=== PATIENT | female | born 1960 | race Caucasian/White ===

== ENCOUNTER 2024-12-18 20:57 | Inpatient (IN) | payer MEDICARE, MEDICAID, SELFPAY ==
[2024-12-18] VITALS (8 sets, daily range): BP systolic 128–156; BP diastolic 55–88; PULSE 102–110; RESP 16–18; TEMP 36.6–37.4; O2SAT 91–99; BMI 28.7
--- NOTE | 2024-12-18 21:00 | EKG12_ITS ---
Test Reason : DYSRHYTHMIA Blood Pressure : */* mmHG Vent. Rate : 105 BPM Atrial Rate : 105 BPM P-R Int : 162 ms QRS Dur : 76 ms QT Int : 342 ms P-R-T Axes : 46 18 86 degrees QTcB Int : 452 ms Sinus tachycardia Possible Left atrial enlargement Cannot rule out Inferior infarct , age undetermined Abnormal ECG Confirmed by SAMI ARAUZ, LANDON ([id number]), online content editor AMY GARCIA ([id number]) on 12/20/2024 11:35:51 AM Referred By: Confirmed By: LANDON GALLARDO MD
--- NOTE | 2024-12-18 21:00 | CT_ITS ---
PROCEDURE: STROKE BRAIN/HEAD WITHOUT CONT 12/18/2024 REASON FOR EXAM: NEURO DEFICIT, ACUTE, STROKE SUSPECTED TECHNIQUE: STROKE BRAIN/HEAD WITHOUT CONT Coronal and Sagittal reconstruction series were provided. One or more dose reduction techniques were used (e.g., Automated exposure control, adjustment of the mA and/or kV according to patient size, use of iterative reconstruction technique. RADIATION DOSE SUMMARY: CTDlvol: 45 mGy DLP: 830 mGycm COMPARISON: None FINDINGS: Brain: No acute intracranial hemorrhage, mass effect, or midline shift. Extensive low density in the deep cerebral white matter most likely represents advanced chronic small vessel ischemic disease. CSF Spaces: Generalized cerebral atrophy. Sinuses/Mastoids: Predominantly clear. Bones: Unremarkable Scalp: Slight thickening of the soft tissues in the right forehead. CT/STROKE Brain/Head without Cont IMPRESSION: 1. No definite evidence of an acute intracranial abnormality. There is hypode nsity throughout the white matter suggestive of chronic small vessel ischemic disease, and which limits evaluation for acute is chemia. Consider MRI if there is persistent concern. 2. Slight thickening in the soft tissues of the right forehead, correlate with findings on exam. The critical information above was relayed directly by me by telephone to Willy Banks on 12/18/2024 at 9:13 pm with readback verification. Reading Location: [facility]
--- NOTE | 2024-12-18 21:00 | CM.ED ---
Social Work Date of referral: 12/18/2024 Reason for referral: Stroke Alert utility worker film processing responded to stroke alert. Patient from Assisted Living; no family members or support persons with patient. Licensed Practical Nurse Instructor then left as patient was being medically assessed/treated. Pratibha Presley, FOOTWEAR SALES LEADER, DIRECTOR OF RELIGIOUS LIFE
--- NOTE | 2024-12-18 21:00 | CM.ED ---
Social Work Date of referral: 12/18/2024 Reason for referral: Stroke Alert utility worker production responded to stroke alert. Patient from Assisted Living; no family members or support persons with patient. Rail Car Painter/Sandblaster then left as patient was being medically assessed/treated. Pratibha Presley, TRANSPORTER RADIOLOGY, WOOD SETTER
--- NOTE | 2024-12-18 21:00 | EKG12_ITS ---
Test Reason : DYSRHYTHMIA Blood Pressure : */* mmHG Vent. Rate : 105 BPM Atrial Rate : 105 BPM P-R Int : 162 ms QRS Dur : 76 ms QT Int : 342 ms P-R-T Axes : 46 18 86 degrees QTcB Int : 452 ms Sinus tachycardia Possible Left atrial enlargement Cannot rule out Inferior infarct , age undetermined Abnormal ECG Confirmed by SAMI ARAUZ, LANDON ([id number]), purchasing expeditor AMY GARCIA ([id number]) on 12/20/2024 11:35:51 AM Referred By: Confirmed By: LANDON GALLARDO MD
--- NOTE | 2024-12-18 21:01 | ED.VIS.STROK ---
HPI History of Present Illness Chief Complaint: Stroke Alert Informant: EMS Narrative Narrative: From by EMS from facility with prehospital stroke alert. Last normal 6:20 PM tonight hours ago. Unclear on her full baseline however per EMS they had multiple calls this year she is different. They reported slurred speech vision changes and patient reporting pain on her left side. No stroke history she is diabetic blood glucose 195. Reviewing her medication she is on diabetic medicines on a statin, blood pressure medicines, carbidopa and levodopa partially for Parkinson's, no blood thinners. Hypothyroidism. [facility] Medical History Parkinsons Hypertension Diabetes Schizophrenia Home Medications ?Medication ?Instructions ?Recorded ?Last Taken ?Type docusate sodium 100 mg capsule 100 mg PO BID Constipation 01/13/17 Unknown History (DOK) sennosides 8.6 mg-docusate sodium 1 tab PO DAILY 01/13/17 Unknown History 50 mg tablet (Senna Plus) Benacalorie 1 packet PO TID PRN intake less 12/18/24 Unknown History than 50% acetaminophen 500 mg tablet 1,000 mg PO TID PRN fever or pain 12/18/24 Unknown History amlodipine 2.5 mg tablet 2.5 mg PO DAILY 12/18/24 Unknown History amlodipine 2.5 mg tablet 2.5 mg PO DAILY 12/18/24 Unknown History atorvastatin 10 mg tablet 10 mg PO DAILY 12/18/24 Unknown History atorvastatin 10 mg tablet 10 mg PO DAILY 12/18/24 Unknown History benztropine 1 mg tablet 1 mg PO DAILY 12/18/24 Unknown History benztropine 1 mg tablet 1 mg PO QHS 12/18/24 Unknown History carbidopa 25 mg-levodopa 100 mg 2 tab PO TID 12/18/24 Unknown History tablet carbidopa 25 mg-levodopa 100 mg 2 tab PO TID 12/18/24 Unknown History tablet diclofenac sodium 1 % topical gel 4 g topical 4X/DAY 12/18/24 Unknown History diclofenac sodium 1 % topical gel 4 g topical 4X/DAY karishma knees and 12/18/24 Unknown History right hip empagliflozin 25 mg tablet 25 mg PO DAILY 12/18/24 Unknown History (Jardiance) estradiol 0.01% (0.1 mg/gram) 0.5 appful vaginal MOWEFR 12/18/24 Unknown History vaginal cream estradiol 0.01% (0.1 mg/gram) 0.5 appful vaginal DAILY 12/18/24 Unknown History vaginal cream (Estrace) fluoride (sodium) 1.1 % dental 1 applic dental DAILY 12/18/24 Unknown History cream (Denta 5000 Plus) glipizide 10 mg tablet 10 mg PO BID 12/18/24 Unknown History glipizide 10 mg tablet 10 mg PO BID 12/18/24 Unknown History levothyroxine 75 mcg tablet 75 mcg PO DAILY 12/18/24 Unknown History melatonin 3 mg tablet 3 mg PO QHS 12/18/24 Unknown History metformin 500 mg tablet,extended 1,000 mg PO BID 12/18/24 Unknown History release 24 hr mirtazapine 30 mg disintegrating 30 mg PO QHS 12/18/24 Unknown History tablet multivitamin with minerals-ferrous 1 tab PO DAILY 12/18/24 Unknown History fumarate 15 mg iron tablet nut.tx.glucose intolerance,soy 1 ea PO 4X/DAY 12/18/24 Unknown History (Glucerna oral bar) omeprazole 40 mg capsule,delayed 40 mg PO DAILY 12/18/24 Unknown History release pimavanserin 34 mg capsule 34 mg PO DAILY 12/18/24 Unknown History (Nuplazid) polyethylene glycol 3350 17 17 g PO DAILY 12/18/24 Unknown History gram/dose oral powder potassium chloride 10 mEq 10 meq PO DAILY 12/18/24 Unknown History tablet,extended release(part/cryst) repaglinide 0.5 mg tablet 0.5 mg PO BID 12/18/24 Unknown History Allergy/AdvReac Type Severity Reaction Status Date / Time Iodinated Contrast Media Allergy UNKNOWN Verified 12/18/24 21:04 (contrast dye - iodinated) Social History Smoking Status: Unknown if ever smoked ROS ROS ED Constitutional Constitutional ED: Denies fever(s) Cardiovascular Cardiovascular: Denies chest pain Respiratory/Chest Respiratory/Chest: Denies cough Gastrointestinal Gastrointestinal: Denies diarrhea or vomiting Musculoskeletal Musculoskeletal: Reports other Details: Left-sided arm and leg pain ; Denies none Integumentary Denies rash or wounds Neurologic Neurologic: Denies weakness EXAM Physical Exam Const Vital Signs: 12/18/24 21:00 12/18/24 21:04 12/18/24 21:29 Temperature 97.8 F Temperature Source Oral Pulse Rate 106 H Respiratory Rate 16 Blood Pressure 145/82 H Blood Pressure Mean 103 Pulse Ox 93 91 Oxygen Delivery Method Room Air Nasal Cannula Oxygen Flow Rate (L/min) 3 12/18/24 21:30 12/18/24 22:00 Temperature Temperature Source Pulse Rate 106 H 102 H Respiratory Rate 16 16 Blood Pressure 134/73 H 128/72 H Blood Pressure Mean 93 90 Pulse Ox 93 98 Oxygen Delivery Method Room Air Room Air Oxygen Flow Rate (L/min) Constitutional Narrative: On nasal cannula oxygen, answering questions and trying to follow commands. HEENT Reports moist mucous membranes normocephalic and atraumatic Eyes General Eye ED: Yes normal appearance of both eyes Neck full ROM Chest Wall Chest: Negative for tenderness Resp normal respiratory effort and normal air movement Effort and Inspection: symmetric chest movement; Negative for respiratory distress Cardio regular rate, regular rhythm and no murmurs Peripheral Pulses: pulses 2+ throughout GI normal to inspection, nondistended, normoactive bowel sounds and non-tender Palpation: Negative for guarding or rebound tenderness present Extremity normal to inspection General Extremety ED: Negative for edema or tenderness General Extremity: Negative for edema Neuro Sensorium / Orientation: awake Skin no rashes or lesions noted and no wounds MDM MDM MDM Narrative Medical decision making narrative: Interventions / MDM: Differential diagnosis: Slurred speech, facial droop, Parkinson's dementia Diagnosis considered but do not suspect: Intracranial hemorrhage however CT negative My EKG interpretation: Sinus rate of 105, no ST changes, isolated T wave version aVL. Nonspecific. Imaging independently reviewed and interpreted by myself: CT head: No intracranial hemorrhage. External documents reviewed: N/A Test considered but not ordered:N/A ED course: Evaluated the mild lip on left droop no arm drift she able to move her feet. Pulses are intact. Complaint of pain on her left side. Patient be sent as a stroke protocol over CT. Callback from nursing over CT patient reported allergies to IV dye which is not documented, therefore noncontrast CT will be obtained and evaluation per stroke neurology to help with disposition plans. 2109: Reevaluate after returning CT continue to complain of pain in her left arm and both legs. She alert to name she could not tell me the year or month. Reporting [birth year] as in her birthday. Told me the age was 47. Both legs were dropped when trying to evaluate for leg strength. She reports pain when she opens both eyes. Difficult to evaluate for full NIH at this time. 2114 discussion with radiologist no intracranial hemorrhage on dry CT. However reports more hypodensity with likely microvascular disease more than expected for her age. 2119: Patient evaluated by stroke neurologist Dr. Ayesha Mckenna, additional history patient does have Parkinson's dementia she is mostly wheelchair-bound does walk with one-person assist. New deficits for the patient would be slurred speech slight facial droop. She does would not recommend TNK however reports options need to be given with patient decision maker guardian. Discussed risk of intracranial hemorrhage. Currently under guardianship of advocacy protective services. Caregivers present also spoke with her nurse, number was given to call for discussion as she still inside the window. Await callback for discussion. However per neurology with her not ambulatory on her own would not be a thrombectomy candidate even with LVO therefore we will plan for admission for MRI and MRA. 2144: I spoke with emergency guardianship through advocacy protective service, Jerrell Thakur who called back. Discussed patient's history symptoms and neurology recommendations with no TNK. He will go with recommendations of neurology with no TNK. He has given consent to treat. Discussed we will plan to admit for MRI studies. He is in agreement of this. 2214: I spoke with hospitalist Dr. Florez for admission to PCU. Re-evaluation: stable Disposition discussed with patient/family/significant other: Caregiver, emergency guardian, Case discussed with consulting clinician: N/A This note was generated with [employer] dictation software. It may contain incorrect words, spelling, and punctuation that were not noted in checking the note before signing. Lab Data Attestation: I reviewed the patient's lab results. Labs: Laboratory Results - last 24 hr 12/18/24 20:00 WBC 13.1 H RBC 5.38 Hgb 16.0 H Hct 51.3 H MCV 95.4 MCH 29.7 MCHC 31.2 L RDW Std Deviation 44.7 H RDW Coeff of Luis Enrique 12.8 Plt Count 295 MPV 9.3 Immature Gran % (Auto) 0.300 Neut % (Auto) 95.7 H Lymph % (Auto) 1.4 L [place] % (Auto) 2.0 Eos % (Auto) 0.4 Baso % (Auto) 0.2 Absolute Neuts (auto) 12.5 H Absolute Lymphs (auto) 0.18 L Nucleated RBC % 0 PT 13.5 INR 1.0 APTT 22.4 L Sodium 143 Potassium 4.4 Chloride 102 Carbon Dioxide 19.6 L Anion Gap 21 H BUN 36 H Creatinine 0.90 Estim Creat Clear Calc 58.39 Est GFR (MDRD) Non-Af 71 BUN/Creatinine Ratio 40.2 H Glucose 192 H Hemoglobin A1c 7.4 H Calcium 9.3 Troponin T High Sens 10 TSH 1.520 Radiography Diagnostic Testing: Clinical Impression(s) from Imaging Studies Brain CT 12/18/24 21:00 IMPRESSION: 1. No definite evidence of an acute intracranial abnormality. There is hypodensity throughout the white matter suggestive of chronic small vessel ischemic disease, and which limits evaluation for acute ischemia. Consider MRI if there is persistent concern. 2. Slight thickening in the soft tissues of the right forehead, correlate with findings on exam. The critical information above was relayed directly by me by telephone to Gamaliel Banks on 12/18/2024 at 9:13 pm with readback verification. Reading Location: [id number] Discharge Plan Dx/Rx/DC Orders Clinical Impression: Facial droop, Slurred speech, Dementia due to Parkinson's disease Disposition Disposition: [facility] Discharge Date/Time: 12/18/24 23:09 NIHSS NIHSS 1a. Level of Consciousness: 1 - Not alert; Arousable by minor stimuli to obey, answer & respond 1b. LOC Questions: 2 - Answers NEITHER question correctly 1c. LOC Commands: 0 - Performs BOTH tasks correctly 2. Best Gaze: 0 - Normal 3. Visual: 0 - No visual loss 4. Facial Palsy: 1 - Minor paralysis (flattened nasolabial fold, asymmetry on smiling) 5a. Left Arm: 0 - No drift; arm holds 90 (or 45) degrees for full 10 seconds 5b. Right Arm: 0 - No drift; arm holds 90 (or 45) degrees for full 10 seconds 6a. Left Le - No effort against gravity; leg falls to bed immediately 6b. Right Le - No effort against gravity; leg falls to bed immediately 7. Limb Ataxia: 0 - Absent 8. Sensory: 0 - Normal; no sensory loss 9. Best Language: 1 - [id number] aphasia; 10. Dysarthria: 1 = [id number] dysarthria; 11. Extinction and Inattention: 0 - No abnormality Total: 12 Stroke Questions Stroke Team Activated: Yes Reviewed Inclusion/Exclusion criteria: Yes IV Thrombolytic Administered: No (Not recommended by neurology along with appointed guardianship)
[2024-12-18 21:11] LABS: Hematocrit 51.3 % (37-47); Hemoglobin 16.0 g/dL (12.0-15.0); Immature Granulocytes Count 0.040 X10^3/uL (0.0-0.0); Mean Corp Hgb Conc 31.2 g/dL (32-36); Mean Corpuscular Volume 95.4 fL (81-99); Mean Platelet Vol. 9.3 fl (6.2-12.0); NRBC Flagged by Analyzer 0 % (0-5); POSITIVE DIFFERENTIAL YES; Platelet Count 295 K/mm3 (150-450); RBC Distribution Width CV 12.8 % (11.6-14.6); RBC Distribution Width SD 44.7 fl (35.1-43.9); Red Blood Count 5.38 M/mm3 (4.2-5.4); White Blood Count 13.1 K/mm3 (4.4-11.0)
[2024-12-18 21:21] LABS: Prothrombin Time (Protime)PT. 13.5 SECONDS (11.7-14.9)
[2024-12-18 21:22] LABS: Partial Thromboplast Time 22.4 Seconds (24.1-36.2)
--- OUTSIDE RECORDS SUMMARY | 2024-12-18 21:24 | XMS RPT_ITS | CCD ---
Author Organization [facility] Care Team Providers Care Marketing Information Analyst Name Role Phone Unavailable Unavailable Unavailable Letha Alli Unavailable Unavailable Antwan Watters Unavailable Unavailable Alli Mnoae Unavailable Unavailable Antwan Watters Unavailable Unavailable Antwan Maharaj Unavailable Unavailable Antwan Maharaj Unavailable Unavailable Antwan Maharaj Unavailable Unavailable Antwan Maharaj Unavailable Unavailable Antwan Maharaj Unavailable Unavailable Antwan Maharaj Unavailable Unavailable Antwan Watters Primary Care Provider Antwan Watters Unavailable Antwan Maharaj Primary Care Provider Antwan Maharaj MD Primary Care Provider [phone] MINA ORTIZ Attending Unavailable MINA ORTIZ Referring Unavailable ANTWAN MAHARAJ Primary Care Unavailable Antwan Maharaj Unavailable France Lowe Unavailable Unavailable Antwan Maharaj MD Primary Care Provider [phone] Erickson Hernandez Unavailable Sharmaine Kelly I Unavailable Unavailable Osiel Vergara Unavailable Antwan Maharaj Unavailable Erickson Hernandez Attending Gilda Maharaj, Dr. Antwan Webster Primary Care Ira Maharaj, Dr. Antwan Webster Primary Care Unavaila shayy Lowe, Dr. France Estevez Attending Gilda Maharaj, Dr. Antwan Webster Attending Janetta shayy Maharaj, Dr. Antwan Webster Primary Care UnavailErickson Miller Attending Gilda Maharaj, Dr. Antwan Webster Primary Care Unavaila shayy Maharaj, Dr. Antwan Webster Attending Unavaila shayy Maharaj, Dr. Antwan Webster Primary Care Unavaila ble Tomchak, Dr. Antwan Webster Attending Unavaila ble Tomchak, Dr. Antwan Webster Primary Care Unavaila ble Tomchak, Dr. Antwan Webster Primary Care Unavaila ble Tomchak, Dr. Antwan Webster Attending Unavaila ble Tomchak, Dr. Antwan Webster Primary Care Unavaila ble Tomchak, Dr. Antwan Webster Attending Unavaila ble Tomchak, Dr. Antwan Webster Primary Care Unavaila ble Tomchak, Dr. Antwan Webster Attending Unavaila ble Tomchak, Dr. Antwan Webster Primary Care Unavaila ble Tomchak, Dr. Antwan Webster Attending Unavaila ble Tomchak, Dr. Antwan Webster Attending Unavaila ble Tomchak, Dr. Antwan Webster Primary Care Unavaila ble Tomchak, Dr. Antwan Webster Attending Unavaila ble Tomchak, Dr. Antwan Webster Primary Care Unavaila ble Moomaw, Tracey Sharmaine Mak Attending Unavailable Tomchak, Dr. Antwan Webster Primary Care Unavaila ble Tomdomo, Dr. Antwan Webster Primary Care Unavaila ble Jai, Dr. Osiel Dang Attending Unavail able Oberhauser DO, Rafa L Primary Care Provider [phone] HUY VASQUEZ Referring Unavailable HUY VASQUEZ Attending Unavailable ANTWAN MAHARAJ Primary Care Unavailable Jaylon ONTIVEROS, Marie Reyes Unavailable Unavailab Zara Hernández DO Primary Care Provider TRACY HILLIARD Attending Unavailable OBERHAUSER, RAFA L Primary Care Unavailable OBERHAUSER, RAFA L Attending Unavailable OBERHAUSER, RAFA L Referring Unavailable OBERHAUSER, RAFA L Primary Care Unavailable TRACY HILLIARD Attending Unavailable OBERHAUSER, RAFA L Primary Care Unavailable OBERHAUSER, RAFA L Attending Unavailable OBERHAUSER, RAFA L Primary Care Unavailable OBERHAUSER, RAFA L Attending Unavailable OBERHAUSER, RAFA L Primary Care Unavailable OBERHAUSER, RAFA L Primary Care Unavailable OBERHAUSER, RAFA L Primary Care Unavailable OBERHAUSER, RAFA L Primary Care Unavailable OBERHAUSER, RAFA L Primary Care Unavailable OSIEL VERGARA Attending Unavailable OBERHAUSER, RAFA L Primary Care Unavailable AJSMYN WADE Attending Unavailable TRACY HILLIARD Referring Unavailable OBERHAUSER, RAFA L Primary Care Unavailable Referring Unavailable OBERHAUSER, RAFA L Primary Care Unavailable Referring Unavailable OBERHAUSER, RAFA L Primary Care Unavailable Referring Unavailable OBERHAUSER, RAFA L Primary Care Unavailable Referring Unavailable OBERHAUSER, RAFA L Primary Care Unavailable Referring Unavailable OBERHAUSER, RAFA L Primary Care Unavailable Referring Unavailable OBERHAUSER, RAFA L Primary Care Unavailable Referring Unavailable OBERHAUSER, RAFA L Primary Care Unavailable Referring Unavailable OBERHAUSER, RAFA L Primary Care Unavailable Referring Unavailable OBERHAUSER, RAFA L Primary Care Unavailable OBERHAUSER, RAFA L Primary Care Unavailable DARIN TRUJILLO Attending Unavailable DARIN TRUJILLO Referring Unavailable OBERHAUSER, RAFA L Primary Care Unavailable Referring Unavailable OBERHAUSER, RAFA L Primary Care Unavailable Referring Unavailable OBERHAUSER, RAFA L Primary Care Unavailable Referring Unavailable OBERHAUSER, RAFA L Primary Care Unavailable Referring Unavailable OBERHAUSER, RAFA L Primary Care Unavailable Referring Unavailable OBERHAUSER, RAFA L Primary Care Unavailable Referring Unavailable OBERHAUSER, RAFA L Primary Care Unavailable Referring Unavailable OBERHAUSER, RAFA L Primary Care Unavailable Referring Unavailable OBERHAUSER, RAFA L Primary Care Unavailable Referring Unavailable OBERHAUSER, RAFA L Primary Care Unavailable Referring Unavailable OBERHAUSER, RAFA L Primary Care Unavailable NIMCO REYNA Attending Unavailable Referring Unavailable OBERHAUSER, RAFA L Primary Care Unavailable Referring Unavailable OBERHAUSER, RAFA L Primary Care Unavailable Referring Unavailable OBERHAUSER, RAFA L Primary Care Unavailable Referring Unavailable OBERHAUSER, RAFA L Primary Care Unavailable BABAK, TRACY B Referring Unavailable OBERHAUSER, RAFA L Primary Care Unavailable Referring Unavailable OBERHAUSER, RAFA L Primary Care Unavailable , Referring Unavailable OBERHAUSER, RAFA L Primary Care Unavailable Referring Unavailable OBERHAUSER, RAFA L Primary Care Unavailable Referring Unavailable OBERHAUSER, RAFA L Primary Care Unavailable Referring Unavailable OBERHAUSER, RAFA L Primary Care Unavailable Referring Unavailable OBERHAUSER, RAFA L Primary Care Unavailable Referring Unavailable OBERHAUSER, RAFA L Primary Care Unavailable OBERHAUSER, RAFA L Primary Care Unavailable MILES EH Attending Unavailable CRISTINA, ZARA R. Primary Care Unavailable NEO CASTRJEON Attending Unavailable ANTWAN MAHARAJ Primary Care Unavailable VEL BENAVIDEZ Unavailable JASMYN WADE Referring Unavailable JOSÉ MANUEL ESTEVEZ Attending Unavai lable ESTEVEZJOSÉ MANUEL Admitting Unavai lable MOVENS, SHELLEY ANURADHA Referring Unavailable STURTSMONIQUE Attending Unavailable CRISTINA, ZARA R. Primary Care Unavailable MOVENS, SHELLEY ANURADHA Admitting Unavailable MOVENS, SHELLEY ANURADHA Referring Unavailable STURTSMONIQUE Attending Unavailable CRISTINA, ZARA R. Primary Care Unavailable MOVENS, SHELLEY ANURADHA Admitting Unavailable CRISTINA, ZARA R. Primary Care Unavailable MOVENS, SHELLEY ANURADHA Referring Unavailable MOVENS, SHELLEY ANURADHA Admitting Unavailable VICTOR MANUEL CRAVEN Attending Unavailable SACHIN MORALES Referring Unavailable SACHIN MORALES Attending Unavailable ANTWAN MAHARAJ Primary Care Unavailable SACHIN MORALES Referring Unavailable SACHIN MORALES Attending Unavailable ANTWAN MAHARAJ Primary Care Unavailable GRAHAMMARCOS Referring Unavail able GRAHAMMARCOS OLIVO Attending Unavail able CRISTINA, ZARA R. Primary Care Unavailable MOVENS, SHELLEY ANURADHA Referring Unavailable SOTO DALY Attending Unavailable MOVENS, SHELLEY ANURADHA Admitting Unavailable CRITSINA, ZARA R. Primary Care Unavailable JULIANNE BUCK Attending Unavailable MOVENS, SHELLEY ANURADHA Admitting Unavailable MOVENS, SHELLEY ANURADHA Referring Unavailable CRISTINA, ZARA R. Primary Care Unavailable JULIANNE BUCK Attending Unavailable CRISTINA, ZARA R. Primary Care Unavailable MOVENS, SHELLEY ANURADHA Referring Unavailable MOVENS, SHELLEY ANURADHA Admitting Unavailable CRISTINA, ZARA R. Primary Care Unavailable MOVENS, SHELLEY ANURADHA Referring Unavailable MOVENS, SHELLEY ANURADHA Admitting Unavailable POPPY, SERENITY Attending Unavailable MOVENS, SHELLEY ANURADHA Referring Unavailable CRISTINA, ZARA R. Primary Care Unavailable MOVENS, SHELLEY ANURADHA Admitting Unavailable POPPY, SERENITY Attending Unavailable MOVENS, SHELLEY ANURADHA Referring Unavailable CRISTINA, ZARA R. Primary Care Unavailable MOVENS, SHELLEY ANURADHA Admitting Unavailable POPPY, SERENITY Attending Unavailable CREKIRILL ENG Admitting Unavailab le [facility] Consulting MODESTA Rangel Attending Unavailable CRISTINA, ZARA R. Primary Care Unavailable ELIZABETH KIMBLE Attending Unavailable TOMCHAANTWAN Lay Primary Care Unavailable VIAU, SACHIN MORENO Attending Unavailable TOMCHAANTWAN Lay Primary Care Unavailable ELIZABETH KIMBLE Attending Unavailable TOMANTWAN SOMERS Primary Care Unavailable HUY VASQUEZ Attending Unavailable TOMCHAK, ANTWAN WEBSTER Primary Care Unavailable MINA ORTIZ Attending Unavailable TOMCHAKANTWAN Primary Care Unavailable CRISTINA, ZARA RTracey Attending Unavailable CRISTINA, ZARA R. Primary Care Unavailable CRISTINA, ZARA RTracey Attending Unavailable CRISTINA, ZARA R. Primary Care Unavailable CRISTINA, ZARA R. Primary Care Unavailable CRISTINA, ZARA R. Attending Unavailable CRISTINA, ZARA RTracey Attending Unavailable CRISTINA, ZARA R. Primary Care Unavailable MINA ORTIZ Attending Unavailable ANTWAN MAHARAJ Primary Care Unavailable GRAHAMMARCOS Attending Unavail able CRISTINA, ZARA R. Primary Care Unavailable ERENDIRAELIZABETH Attending Unavailable CRISTINA, ZARA R. Primary Care Unavailable CRISTINA, ZARA R. Attending Unavailable CRISTINA, ZARA R. Primary Care Unavailable CRISTINA, ZARA R. Primary Care Unavailable CRISTINA, ZARA R. Attending Unavailable CRISTINA, ZARA R. Primary Care Unavailable ERENDIRAELIZABETH Attending Unavailable CRISTINA, ZARA RTracey Attending Unavailable CRISTINA, ZARA R. Primary Care Unavailable CRISTINA, ZARA R. Attending Unavailable CRISTINA, ZARA R. Primary Care Unavailable VIAU, SACHIN MORENO Attending Unavailable TOMCHAANTWAN Lay Primary Care Unavailable PRISCILLA MACKEY Attending Unavailable TOMCHAK, ANTWAN WEBSTER Primary Care Unavailable CRISTINA, ZARA R. Admitting Unavailable ZARA EVANS Referring Unavailable MARCOS BARRERA Attending Unavail able ZARA EVANS Primary Care Unavailable Medications Current Medications Medication Drug Class(es) Dates Sig (Normalized) Sig (Original) acetaminophen 500 mg oral tablet (20 sources) Start: 09-16-2024 take 2 tablets by mouth every eight hours as needed for pain acetaminophen (TYLENOL) 500 MG tablet Take 2 (two) tablets (1,000 mg total) by mouth every 8 (eight) hours as needed for pain . 180 tablet 11 09/16/2024 Active Start: 07-09-2024 End: 07-09-2024 take 975 mg by mouth once as needed for pain 975 mg, oral, Once, On Fri07/09/24 at 1125, For 1 dose, If ordered PRN for pain, nurse is permitted to administer this medication for higher pain scores based on patient preference? Yes Start: 04-27-2024 take 2 tablets by mo ut every six hours as needed for pain acetaminophen (Tylenol) 500 mg tablet Indications: Gait abnormality TAKE 2 TABLETS (1000MG) BY MOUTH EVERY 6 HOURS NEEDED FOR PAIN OR FEVER *CALL FOR REFILLS* 99 tablet 04/29/2024 9:57 AM EST 04/27/2024 Active End: 09-16-2024 take 1 tablet by mouth every six hours as needed for pain acetaminophen (TYLENOL) 500 MG tablet Take 1 (one) tablet (500 mg total) by mouth every 6 (six) hours as needed for pain . 09/16/2024 Discontinued (Reorder (Suppress CancelRx Message to Pharmacy)) take 2 tablets by mo ut every six hours as needed acetaminophen (Tylenol) 500 mg tablet Take 2 tablets (1,000 mg) by mouth every 6 hours if needed. Active acetaminophen 325 mg / HYDROcodone bitartrate 5 mg oral tablet (2 sources) Opioid Agonist Start: 07-09-2024 End: 07-12-2024 take 1 tablet by mouth every six hours for pain HYDROcodone-acetaminophen (Onida) 5-325 mg tablet Indications: Contusion of right knee and lower leg, initial encounter Take 1 tablet by mouth every 6 hours if needed for severe pain (7 - 10) for up to 3 days. 12 tablet 07/09/2024 07/09/2024 Discontinued aluminum hydroxide 40 mg/ml / magnesium hydroxide 40 mg/ml / simethicone 4 mg/ml oral suspension (20 sources) take 10 mL by mouth four times daily before mealtime aluminum-magnesium hydroxide-simethicone (MAALOX PLUS) 200-200-20 mg/5 mL Susp Take 10 mL by mouth 4 (four) times a day before meals and nightly GIVE 10 ML BY MOUTH BETWEEN MEALS AND AT BEDTIME NEEDED FOR ACID REFLUX . Active take 10 mL by mouth at bedtime as needed for gastroesophageal reflux disease alum-mag hydroxide-simeth (Mylanta) 200-200-20 mg/5 mL oral suspension Take 10 mL by mouth if needed for indigestion or heartburn. Give 10 mL in between meals and at bedtime as needed Active amLODIPine 2.5 mg oral tablet (20 sources) Dihydropyridine Calcium Channel Roxanne Start: 03-21-2022 End: 09-15-2024 take 1 tablet by mouth once daily amLODIPine (NORVASC) 2.5 MG tablet Take 1 (one) tablet (2.5 mg total) by mouth daily . 90 tablet 3 09/16/2024 Active ascorbic acid 500 mg oral tablet (9 sources) Vitamin C Start: 03-28-2022 End: 03-28-2023 take 1 tablet by mouth once daily ascorbic acid, vitamin C, (ascorbic acid with lauro hips) 500 MG tablet Take 1 (one) tablet (500 mg total) by mouth daily . 30 tablet 11 03/28/2022 Active atorvastatin 10 mg oral tablet (20 sources) HMG-CoA Reductase Inhibitor Start: 04-16-2023 take 1 tablet by mouth once daily in the evening atorvastatin (Lipitor) 10 mg tablet Indications: Mixed hyperlipidemia TAKE 1 TABLET BY MOUTH ONCE DAILY DX: HYPERLIPIDEMIA NEW PCP 30 tablet 10 06/14/2024 1:48 PM EST 08/25/2023 Active atorvastatin Kartik ntity: 0 Refills: 0 Ordered: 25-Mar-2019 Alee Li Generic Substitution Allowed benacalorie (3 sources) benacalorie ; Gi ve 1 packet mixed in food or liquid 3 times daily as needed for meal intake less then 50% Quantity: 0 Refills: 0 Ordered: 09-Aug-2022 Chan Stephens Generic Substitution Allowed benztropine mesylate 1 mg oral tablet (20 sources) Anticholinergic, Antihistamine Start: 03-21-20 take 1 tablet by mouth twice daily benztropine (COGENTIN) 1 MG tablet Take 1 (one) tablet (1 mg total) by mouth 2 (two) times a day . 03/21/2022 Active carbidopa 25 mg / levodopa 100 mg oral tablet (20 sources) Aromatic Amino Acid Decarboxylation Inhibitor, Aromatic Amino Acid Start: 04-16-20 End: 05-18-20 take 2 tablets by mouth three times daily carbidopa-levodopa (SINEMET) 25-100 mg per tablet Indications: Parkinson disease (HCC) Take 2 (two) tablets by mouth 3 (three) times a day . 540 tablet 3 05/18/2024 05/18/2025 Active Start: 12-19-2022 End: 12-19-2023 take 1.5 tablets by mouth once, then take 0.5 tablet by mouth three times daily carbidopa-levodopa (Sinemet) 25-100 mg per tablet Indications: Parkinson disease Take 1.5 (one and a half) tablets by mouth 3 (three) times a day . 405 tablet 3 12/19/2022 06/23/2023 Discontinued Start: 08-01-2022 End: 12-19-2022 take 1 tablet by mouth three times daily carbidopa-levodopa (Sinemet) 25-100 mg per tablet Indications: Parkinson disease (HCC) Take 1 (one) tablet by mouth 3 (three) times a day . 90 tablet 3 08/01/2022 12/19/2022 Discontinued (Dose adjustment) diazePAM 2 mg oral tablet (1 source) Benzodiazepine diazePAM 2 mg or al tablet Quantity: 0 Refills: 0 Ordered: 25-Mar-2019 Alee Li Generic Substitution Allowed diclofenac sodium 0.01 mg/mg topical gel (20 sources) Nonsteroidal Anti-inflammatory Drug Start: 07-13-2024 diclofenac sodium 1% (VOLTAREN) 1 % Gel Indications: Recurrent falls , Primary osteoarthritis involving multiple joints Apply 4 (four) g topically 4 (four) times a day Apply to Both Knees, R hip . 450 g 11 07/13/2024 Active Start: 07-09-2024 End: 07-09-2024 diclofenac sodium (Voltaren) 1 % gel Indications: Contusion of right knee and lower leg, initial encounter Apply 4.5 inches (4 g) topically 4 times a day. 100 g 07/09/2024 07/09/2024 Discontinued docusate sodium 100 mg oral capsule (20 sources) Start: 04-16-2023 End: 08-19-2024 take 1 capsule by mouth twice daily docusate sodium (COLACE) 100 MG capsule Indications: Constipation, unspecified constipation type Take 1 (one) capsule (100 mg total) by mouth 2 (two) times a day . 180 capsule 3 08/19/2024 Active docusate sodium 50 mg / sennosides, longterm 8.6 mg oral tablet (20 sources) Start: 04-16-2023 take 1 tablet by mouth once daily sennosides-docusate sodium (Senexon-S) 8.6-50 mg tablet Indications: Parkinson's disease without dyskinesia or fluctuating manifestations GIVE 1 TABLET BY MOUTH ONCE DAILY DX: STOOL SOFTENER/BOWEL REGULATOR 30 tablet 10 05/18/2024 Active empagliflozin 25 mg oral tablet (20 sources) Sodium-Glucose Cotransporter 2 Inhibitor Start: 03-15-2024 End: 04-19-2025 take 1 tablet by mouth once daily empagliflozin 25 mg Tab Take 1 (one) tablet (25 mg total) by mouth daily . 03/15/2024 04/19/2025 Active estradiol 0.1 mg/ml vaginal cream (20 sources) Estrogen Start: 12-08-2024 End: 12-08-2025 estradioL (ESTRACE) 0.01 % (0.1 mg/gram) vaginal cream Insert 2 (two) g into the vagina Friday, Friday, Friday EVERY FRIDAY/FRIDAY/ Start: 12/08/24. 42.5 g 3 12/08/2024 12/08/2025 Active Start: 12-24-2023 End: 12-23-2024 estradioL (ESTRACE) 0.01 % ( 0.1 mg/gram) vaginal cream Insert 2 (two) g into the vagina Friday, Friday, Friday EVERY FRIDAY/FRIDAY/FRIDAY . 12/24/2023 12/06/2024 Discontinued (Reorder (Suppress CancelRx Message to Pharmacy)) Start: 12-24-2023 End: 12-23-2024 estradioL (ESTRACE) 0.01 % ( 0.1 mg/gram) vaginal cream Insert 2 (two) g into the vagina daily . 12/24/2023 12/23/2024 Active Start: 12-24-2023 End: 12-23-2024 estradiol (Estrace) 0.01 % ( 0.1 mg/gram) vaginal cream Indications: Vaginal dryness Insert 0.5 Applicatorfuls (2 g) into the vagina once daily. Apply to vagina nightly for 1 week then every Friday/Friday/Friday. 42.5 g 5 05/10/2024 2:52 PM EST 12/24/2023 12/23/2024 Active estrogens, conjugated (longterm) 0.625 mg/ml vaginal cream (20 sources) Estrogen Start: 12-04-2023 estrogens, con jugated, (Premarin) vaginal cream Indications: Vaginal dryness Insert 0.5 g into the vagina 2 times a week. 30 g 1 12/04/2023 Active Start: 01-06-2023 conjugated est rogens (Premarin) vaginal cream Insert 0.5 (one-half) g into the vagina twice weekly . 01/06/2023 Active ferrous sulfate 325 mg oral tablet (9 sources) Start: 03-28-2022 End: 03-28-2023 take 1 tablet by mouth once daily at breakfast ferrous sulfate 325 (65 FE) MG tablet Take 1 (one) tablet (325 mg total) by mouth daily with breakfast . 30 tablet 11 03/28/2022 Active finger splint Misc (12 sources) Start: 04-27-2019 finger splint Misc Use as directed . 1 each 0 04/27/2019 Active fluoride, sodium, (DENTA 5000 PLUS DENT) (20 sources) fluoride, sodium , (DENTA 5000 PLUS DENT) Use to brush teeth once a day as directed . Active glipiZIDE 10 mg oral tablet (20 sources) Sulfonylurea Start: 03-29-2024 End: 03-29-2025 take 1 tablet by mouth twice daily before mealtime glipiZIDE (GLUCOTROL) 10 MG tablet Take 1 (one) tablet (10 mg total) by mouth 2 (two) times a day before meals . 03/29/2024 03/29/2025 Active Start: 10-17-2023 End: 10-16-2024 take 1 tablet by mouth twice daily before mealtime glipiZIDE (Glucotrol) 5 mg tablet Indications: Type 2 diabetes mellitus without complication, without long-term current use of insulin (Multi) Take 1 tablet (5 mg) by mouth 2 times a day before meals. 60 tablet 11 10/17/2023 03/29/2024 Discontinued (Therapy completed) hyoscyamine sulfate 0.125 mg disintegrating oral tablet (14 sources) End: 10-14-2023 hyoscyamine sulfate 0.125 mg ODT Dissolve on top of tongue 3 (three) times a day . 0 10/14/2023 Discontinued (Patient's Request) take 1 tablet by lopez th once daily as needed hyoscyamine 0.125 mg oral tablet ; 1 tab (s) orally once a day, As Needed Quantity: 0 Refills: 0 Ordered: 09-Aug-2022 Chan Stephens Generic Substitution Allowed ibuprofen 400 mg oral tablet (4 sources) Nonsteroidal Anti-inflammatory Drug Start: 01-29-2024 End: 02-05-2024 take 1 tablet by mouth every six hours for pain ibuprofen 400 mg tablet Indications: Contusion of right forearm, initial encounter , Contusion of right knee, initial encounter Take 1 tablet (400 mg) by mouth every 6 hours if needed for moderate pain (4 - 6) for up to 7 days. 28 tablet 01/29/2024 02/05/2024 Active Start: 01-29-2024 End: 01-29-2024 take 400 mg by mouth once at mealtime as needed for pain 400 mg, oral, Once, On Antonia 01/29/24 at 0745, For 1 dose, May administer with food to reduce GI upset., If ordered PRN for pain, nurse is permitted to administer this medication for higher pain scores based on patient preference? Yes levothyroxine sodium 0.075 mg oral tablet (20 sources) l-Thyroxine Start: 11-16-2024 take 1 tablet by mouth once daily in the morning levothyroxine (SYNTHROID, LEVOTHROID) 75 MCG tablet Take 1 (one) tablet (75 mcg total) by mouth every morning At 6 AM . 90 tablet 3 11/16/2024 Active Start: 04-16-2023 take 1 tablet by lopez th once daily in the morning levothyroxine (SYNTHROID, LEVOTHROID) 75 MCG tablet Take 1 (one) tablet (75 mcg total) by mouth every morning At 6 AM . 04/16/2023 Active levothyroxine 50 mcg cap Take by mouth . 0 Active take 1 tablet by lopez th once daily levothyroxine 75 mcg (0.075 mg) oral tablet ; 1 tab(s) orally once a day Quantity: 0 Refills: 0 Ordered: 09-Aug-2022 Chan Stephens Generic Substitution Allowed levothyroxine Qu antity: 0 Refills: 0 Ordered: 25-Mar-2019 Alee Li Generic Substitution Allowed lisinopril 5 mg oral tablet (13 sources) Angiotensin Converting Enzyme Inhibitor Start: 10-03-2014 lisinopril (PRINIVIL,ZESTRIL) 5 MG tablet lisinopril Quant ity: 0 Refills: 0 Ordered: 25-Mar-2019 Alee Li Generic Substitution Allowed melatonin 3 mg oral tablet (20 sources) Start: 04-16-2023 take 1 tablet by mouth once daily at bedtime melatonin 3 mg tablet Take 1 tablet (3 mg) by mouth once daily at bedtime. 04/16/2023 Active 24 hr metFORMIN hydrochloride 500 mg extended release oral tablet (20 sources) Biguanide Start: 10-03-2014 take 2 tablets by mouth twice daily metFORMIN (GLUCOPHAGE-XR) 500 MG 24 hr tablet Take 2 (two) tablets (1,000 mg total) by mouth 2 (two) times a day . 10/03/2014 Active Start: 10-03-2014 take 1 tablet by lopez th twice daily metFORMIN (GLUCOPHAGE-XR) 500 MG 24 hr tablet Take 1 (one) tablet (500 mg total) by mouth 2 (two) times a day . 10/03/2014 Active Start: 10-03-2014 metFORMIN (GLU COPHAGE-XR) 500 MG 24 hr tablet take 1 tablet by lopez th twice daily metFORMIN 1000 mg oral tablet, extended release ; 1 tab(s) orally 2 times a day Quantity: 0 Refills: 0 Ordered: 06-Nov-2022 Jesusita Guy Generic Substitution Allowed take 1 tablet by lopez th three times daily metFORMIN 500 mg oral tablet, extended release ; 1 tab(s) orally 3 times a day Quantity: 0 Refills: 0 Ordered: 09-Aug-2022 Chan Stephens Generic Substitution Allowed metFORMIN Quanti ty: 0 Refills: 0 Ordered: 25-Mar-2019 Alee Li Generic Substitution Allowed mineral oil 0.14 mg/mg / petrolatum 0.719 mg/mg / phenylephrine hydrochloride 0.0025 mg/mg / shark liver oil 0.03 mg/mg rectal ointment (20 sources) alpha-1 Adrenergic Agonist phenylephrine-shark liver oil-mineral oil-petrolatum (PREPARATION H) Oint Insert 1 Application into the rectum 4 (four) times a day as needed APPLY TOPICALLY TO AFFECTED ARE FOUR TIMES DAILY NEEDED . Active mirtazapine 30 mg disintegrating oral tablet (20 sources) Start: 023 apply 1 tablet topically once daily mirtazapine (REMERON NIKHIL-TAB) 30 MG disintegrating tablet Dissolve 1 (one) tablet (30 mg total) on top of tongue nightly PLACE 1 TABLET IN THE MOUTH AND ALLOW TO DISSOLVE AT BEDTIME . 04/16/2023 Active take 1 tablet by lopez once daily at bedtime mirtazapine 30 mg oral tablet, disintegr ating ; 1 tab(s) orally once a day (at bedtime) Quantity: 0 Refills: 0 Ordered: 09-Aug-2022 Chan Stephens Generic Substitution Allowed mirtazapine Castro tity: 0 Refills: 0 Ordered: 25-Mar-2019 Alee Li Generic Substitution Allowed mirtazapine (REM CHANDA ORAL) Take by mouth . 0 Active Multiple Vitamins with Minerals oral tablet (4 sources) take 1 tablet by mouth once daily Multiple Vitamins with Minerals oral tablet ; 1 tab(s) orally once a day Quantity: 0 Refills: 0 Ordered: 09-Aug-2022 Chan Stephens Generic Substitution Allowed [id number]-pqn-nfzxtne fumarate 15 mg iron Tab (20 sources) Start: 08-19-2024 take 1 tablet by mouth once daily in the morning obtpimvw-nxg-lpsmest fumarate 15 mg iron Tab Indications: Frequent falls Take 1 tablet by mouth every morning . 90 tablet 3 08/19/2024 Active Start: 11-09-2023 End: 08-19-2024 take 1 tablet by mouth once daily in the morning hsgjrccq-jhk-wuvyint fumarate 15 mg iron Tab Take 1 tablet by mouth every morning . 11/09/2023 08/19/2024 Discontinued (Reorder (Suppress CancelRx Message to Pharmacy)) Start: 11-09-2023 take 1 tablet by lopez th once daily in the morning qebarknr-fpc-xncupdz fumarate 15 mg iron Tab Take 1 tablet by mouth every morning . 11/09/2023 Active ljehasoq-vtv-binrwdc fumarate 15 mg iron tablet (3 sources) Start: 03-08-2024 take 1 tablet by mouth once daily teribvhk-txy-gtpwyqc fumarate 15 mg iron tablet Take 1 tablet by mouth once daily. 03/08/2024 Active vmbzvqhk-tdo-aqpz fum-folic ac 7.5 mg iron-400 mcg tablet (9 sources) Start: 10-07-2023 wbimhhwz-hak-x adolfo fum-folic ac 7.5 mg iron-400 mcg tablet Indications: Healthcare maintenance GIVE 1 TABLET BY MOUTH ONCE DAILY FOR SUPPLEMENT *GETTING FILLED LOCALLY* 30 tablet 10/07/2023 Active MULTIVITAMIN ORAL (20 sources) MULTIVITAMIN ORA L Take 1 tablet by mouth . Active MULTIVITAMIN ORA L Take by mouth . 0 Active multivitamin with minerals (gsqymagx-tjc-uoii fum-folic ac) tablet (9 sources) Start: 10-14-2023 End: 10-13-2024 take 1 tablet by mouth once daily before mealtime multivitamin with minerals (cpweyjmh-lga-pulk fum-folic ac) tablet Indications: Stage 3a chronic kidney disease (Multi) Take 1 tablet by mouth once daily. 90 tablet 3 10/14/2023 10/13/2024 Active NONFORMULARY (20 sources) NONFORMULARY HOLLIS CK FASTING BLOOD SUGAR ONE TIME EVERY MONTH (FIRST FRIDAY OF THE MONTH) . Active NONFORMULARY EVELYN CE FOAM BLOCKS IN BOTH HANDS, WRAPPED WITH COBAND EVERY NIGHT WHILE SLEEPING . Active NONFORMULARY WEA R L BRACE/SPLINT TO LEFT HAND/ARM FOR 1 HOUR TWICE DAILY THEN REMOVE ROM . Active NONFORMULARY PATTY LY DALE'S VAPOR RUB TO ALL TOENAILS ONCE NIGHTLY . Active NONFORMULARY HOLLIS CK BLOOD PRESSURE ONCE WEEKLY ON FRIDAY. IF SBP (TOP NUMBER) ABOVE 160 OR LOWER THAN 110, DBP (BOTTOM NUMBER) ABOVE 90 OR LOWER ORTIZ 60, REPEAT IN 15 MINS. IF STILL ABNORMAL CONTACT NURSE. . Active NONFORMULARY Ind ications: THEN EASILY PROVIDE RANGE OF MOTION TO WRIST/FINGERS. COMPLETE THIS TWICE DAILY BEFORE APPLYING R HAND SPLINT ROM COMPLETE HAND EXERCISES WITH BLUE SPONGE-SPONGE SQUEEZE, FINGER LUMBRICALS, POINT PINCH WITH SPONGE, FLATTEN SPONGE TWICE A DAY. (SEE BELOW FOR REST OF MESSAGE) Reasons: THEN EASILY PROVIDE RANGE OF MOTION TO WRIST/FINGERS. COMPLETE THIS TWICE DAILY BEFORE APPLYING R HAND SPLINT ROM. Active nut.tx.gluc intol,lf,soy/fib er (GLUCERNA 1 REINALDO ORAL) (16 sources) nut.tx.gluc into l,lf,soy/fiber (GLUCERNA 1 REINALDO ORAL) Take 1 Can by mouth 4 (four) times a day . Active nut.tx.gluc into l,lf,soy/fiber (GLUCERNA 1 REINALDO ORAL) Take by mouth . 0 Active nut.tx.gluc.intol,lac-free,s oy (Glucerna Advance) Liqd (9 sources) nut.tx.gluc.into l,lac-free,soy (Glucerna Advance) Liqd Take by mouth 1 carton 4 times daily . 0 Active nut.tx.gluc.intol,lac-free,s oy (Glucerna Advance) liquid (12 sources) take 1 dose by mouth four times daily nut.tx.gluc.intol,lac-free,soy (Glucerna Advance) liquid Take 1 each by mouth 4 times a day. Active take 1 dose by mouth four times daily nut.tx.gluc.intol,lac-free,soy (Glucerna Advance) liquid Take 1 each by mouth 4 times a day. 0 Active nut.tx.glucose intolerance,s oy (GLUCERNA ORAL) (20 sources) nut.tx.glucose i ntolerance,soy (GLUCERNA ORAL) Take 1 Can by mouth 4 (four) times a day . Active End: 04-21-2023 take 1 dose by mouth four times daily nut.tx.glucose intolerance,soy (GLUCERNA ORAL) Take 1 each by mouth 4 times a day. 0 04/21/2023 Discontinued (Duplicate order) nut.tx.glucose i ntolerance,soy (GLUCERNA ORAL) Take by mouth . 0 Active omeprazole 40 mg delayed release oral capsule (20 sources) Proton Pump Inhibitor Start: 03-21-2022 End: 09-15-2024 take 1 capsule by mouth once daily omeprazole (PRILOSEC) 40 MG capsule Take 1 (one) capsule (40 mg total) by mouth daily . 90 capsule 3 09/16/2024 Active omeprazole Quant ity: 0 Refills: 0 Ordered: 25-Mar-2019 Alee Li Generic Substitution Allowed pimavanserin 10 mg oral tablet (15 sources) Atypical Antipsychotic Start: 08-24-2024 take 1 tablet by mouth once daily pimavanserin 10 mg Tab Take 1 (one) tablet (10 mg total) by mouth daily . 08/24/2024 Active Start: 08-24-2024 take 1 capsule by mo uth once daily pimavanserin (NUPLAZID) 34 mg Take 1 (one) capsule (34 mg total) by mouth daily . 08/24/2024 Active polyethylene glycol 3350 22927 mg powder for oral solution (20 sources) Osmotic Laxative Start: 10-01-2022 End: 09-15-2024 polyethylene glycol (MIRALAX) 17 gram powder Take 17 (seventeen) g by mouth daily . 1530 g 3 09/16/2024 Active Potassium Acetate (1 source) potassium acetat e Quantity: 0 Refills: 0 Ordered: 25-Mar-2019 Alee Li Generic Substitution Allowed microencapsulated potassium chloride 10 meq extended release oral tablet (20 sources) Start: 10-03-2023 take 1 tablet by mouth once daily at mealtime potassium chloride CR 10 mEq ER tablet Indications: Stage 3a chronic kidney disease (Multi) TAKE 1 TABLET BY MOUTH ONCE DAILY WITH FOOD FOR SUPPLEMENT NEW PCP 30 tablet 11 06/14/2024 1:48 PM EST 10/03/2023 Active Start: 09-05-2014 End: 09-15-2024 take 1 tablet by mouth once daily potassium chloride SA (K-DUR,KLOR-CON M10) 10 MEQ tablet Take 1 (one) tablet (10 mEq total) by mouth daily . 90 tablet 3 09/16/2024 Active take 1 tablet by lopez th once daily potassium chloride 10 mEq oral tablet, extended release ; 1 tab(s) orally once a day Quantity: 0 Refills: 0 Ordered: 18-Aug-2022 Haja Maharaj Generic Substitution Allowed take 1 tablet by lopez th twice daily potassium chloride 10 mEq oral tablet, extended release ; 1 tab(s) orally 2 times a day Quantity: 0 Refills: 0 Ordered: 09-Aug-2022 Chan Stephens Generic Substitution Allowed repaglinide 0.5 mg oral tablet (6 sources) Glinide Start: 09-30-2024 End: 03-29-2025 take 1 tablet by mouth twice daily before mealtime REPaglinide (PRANDIN) 0.5 MG tablet Indications: Type 2 diabetes mellitus without complication, without long-term current use of insulin (HCC) Take 1 (one) tablet (0.5 mg total) by mouth 2 (two) times a day before meals . 180 tablet 1 09/30/2024 03/29/2025 Active simvastatin 20 mg oral tablet (12 sources) HMG-CoA Reductase Inhibitor Start: 10-03-2014 simvastatin (ZOCOR) 20 MG tablet SITagliptin 100 mg oral tablet (20 sources) Dipeptidyl Peptidase 4 Inhibitor Start: 03-21-2022 Januvia 100 mg tablet 03/21/2022 Active sodium fluoride 0.011 mg/mg toothpaste (9 sources) fluoride, sodium , (Denta 5000 Plus) 1.1 % dental cream Apply to teeth once daily. Active triamcinolone acetonide 0.001 mg/mg oral paste (1 source) Corticosteroid triamcinolone (KENALOG) 0.1 % paste Apply to teeth 2 (two) times a day . 0 Active UNABLE TO FIND (20 sources) UNABLE TO FIND Benacalorie mixed in food or drink 3 times daily as needed for meal intake less than 50% . Active UNABLE TO FIND B enacalorie mixed in food or drink 3 times daily . 0 Active UNABLE TO FIND S N Anitacid . 0 Active Completed/Discontinued Medications Medication Drug Class(es) Dates Sig (Normalized) Sig (Original) barium sulfate (E-Z-PAQUE) 96 % (w/w) for oral suspension 1 Dose (1 source) Start: 11-03-2018 End: 11-03-2018 barium sulfate (E-Z-PAQUE) 96 % (w/w) for oral suspension 1 Dose cephalexin 250 mg oral capsule (20 sources) Cephalosporin Antibacterial Start: 07-23-2024 End: 09-21-2024 take 1 capsule by mouth every six hours cephALEXin (KEFLEX) 250 MG capsule Take 1 (one) capsule (250 mg total) by mouth every 6 (six) hours . 20 capsule 07/23/2024 09/21/2024 Discontinued Start: 11-06-2022 End: 11-12-2022 take 1 tablet by mouth twice daily cephalexin 500 mg oral tablet ; 1 tab(s) orally 2 times a day Quantity: 14 Refills: 0 Ordered: 06-Nov-2022 Erickson Hernandez Start: 06-Nov-2022 End: 12-Nov-2022 Generic Substitution Allowed Comments: Finish all this medication unless otherwise directed by prescriber. Start: 08-18-2022 End: 08-22-2022 take 1 tablet by mouth twice daily cephalexin 500 mg oral tablet ; 1 tab(s) orally 2 times a day x 5 days Quantity: 10 Refills: 0 Ordered: 18-Aug-2022 Sharmaine Dean I Start: 18-Aug-2022 End: 22-Aug-2022 Generic Substitution Allowed Comments: Finish all this medication unless otherwise directed by prescriber. Comment on above: Finish all this medi cation unless otherwise directed by prescriber. 1 ml morphine sulfate 4 mg/ml prefilled syringe (1 source) Opioid Agonist Start: End: 4 4 mg, intravenous, Once, On Antonia 12/04/23 at 1115, For 1 dose OLANZapine 5 mg oral tablet (20 sources) Atypical Antipsychotic Start: 5 take 1 tablet by mouth once daily OLANZapine (ZYPREXA) 10 MG tablet Take 1 (one) tablet (10 mg total) by mouth nightly . 10/03/2014 Active Start: 10-03-2014 OLANZapine (ZY PREXA) 15 MG tablet Start: 10-03-2014 End: 09-21-2024 take 1 tablet by mouth once daily OLANZapine (ZYPREXA) 5 MG tablet Take 1 (one) tablet (5 mg total) by mouth nightly . 10/03/2014 09/21/2024 Discontinued OLANZapine Quant ity: 0 Refills: 0 Ordered: 25-Mar-2019 Alee Li Generic Substitution Allowed 2 ml ondansetron 2 mg/ml injection (1 source) Serotonin-3 Receptor Antagonist Start: 12-04-2023 End: 12-04-2023 4 mg, intravenous, Once, On Antonia 12/04/23 at 1115, For 1 dose, When administering via IV Push, administer over 3-5 minutes. oxyCODONE hydrochloride 5 mg oral tablet (1 source) Opioid Agonist Start: 07-09-2024 End: 07-09-2024 take 5 mg by mouth once as needed for pain 5 mg, oral, Once, On Fri07/09/24 at 1125, For 1 dose, If ordered PRN for pain, nurse is permitted to administer this medication for higher pain scores based on patient preference? Yes, Indications: pain Problems Active Problems Problem Classification Problem Date Documented Da te Episodic/Chronic Acute cerebrovascular disease (20 sources) Hemorrhage into subarachnoid space of neuraxis; Translations: [Nontraumatic subarachnoid hemorrhage, unspecified] Onset: 12-04-2023 12-08-2023 Chronic Administrative/social admission (9 sources) Impaired ability to transfer location; Translations: [Other symptoms involving nervous and musculoskeletal systems] Onset: 01-29-2023 Episodic Cataract (20 sources) Nuclear senile cataract; Translations: [Age-related nuclear cataract, unspecified eye] Onset: 10-05-2014 06-24-2024 Chronic Chronic kidney disease (20 sources) Chronic kidney disease, unspecified; Translations: [Chronic kidney disease stage 3A ] Onset: 10-08-2022 04-21-2023 Chronic Chronic kidney disease (2 sources) Chronic kidney disease; Translations: [Chronic kidney disease, stage 3a (Multi)] Onset: 04-21-2023 Developmental disorders (20 sources) Moderate intellectual disabilities; Translations: [Unspecified intellectual disabilities] Onset: 01-22-2017 06-24-2024 Chronic Diabetes mellitus with complications (9 sources) Type 2 diabetes mellitus with diabetic chronic kidney disease; Translations: [Diabetic peripheral neuropathy] Onset: 10-08-2022 07-15-2023 Chronic Diabetes mellitus without complication (20 sources) Type 2 diabetes mellitus without complications; Translations: [Type 2 diabetes mellitus without complication] Onset: 01-22-2017 04-21-2023 Chronic E Codes: Fall (4 sources) Fall 08-18-2022 Comment on above: FALL Esophageal disorders (20 sources) Gastro-esophageal reflux disease without esophagitis; Translations: [Gastroesophageal reflux disease] Onset: 11-06-2022 04-21-2023 Chronic Essential hypertension (20 sources) Essential (primary) hypertension; Translations: [Hypertensive disorder] Onset: 05-26-2022 04-21-2023 Chronic Fracture of upper limb (2 sources) Closed fracture of phalanx of little finger; Translations: [Fracture of unspecified phalanx of left little finger, initial encounter for closed fracture] Episodic Hypertension with complications and secondary hypertension (1 source) Hypertensive chronic kidney disease with stage 1 through stage 4 chronic kidney disease, or unspecified chronic kidney disease; Translations: [Hypertensive chronic kidney disease w stg 1-4/unsp chr kdny] Onset: 10-08-2022 Chronic Malaise and fatigue (1 source) Weakness; Translations: [Weakness] Onset: 11-06-2022 Episodic Miscellaneous mental health disorders (1 source) Mental disorder, not otherwise specified; Translations: [Mental disorder, not otherwise specified] Onset: 05-26-2022 Chronic Nonspecific chest pain (2 sources) Chest pain, unspecified; Translations: [Chest pain, unspecified] Onset: 11-06-2022 Episodic Osteoarthritis (20 sources) Degenerative joint disease involving multiple joints; Translations: [Primary generalized (osteo)arthritis] Onset: 07-13-2024 07-13-2024 Chronic Other acquired deformities (2 sources) Contracture, left hand; Translations: [Contracture, left hand] Onset: 01-12-2024 Chronic Other acquired deformities (2 sources) Contracture, right hand; Translations: [Contracture, right hand] Onset: 01-12-2024 Chronic Other aftercare (2 sources) Other meterman (current) drug therapy; Translations: [OTHER SOLUTION DIRECTOR (CURRENT) DRUG THERAPY] Onset: 01-22-2017 Episodic Other aftercare (1 source) detention (current) use of oral hypoglycemic drugs; Translations: [meterman (current) use of oral hypoglycemic drugs] Onset: 11-06-2022 Episodic Other circulatory disease (1 source) Choking 05-26-2022 Episodic Other connective tissue disease (1 source) Neurological symptom; Translations: [Other symptoms and signs involving the nervous system] Episodic Other connective tissue disease (5 sources) Repeated falls; Translations: [Repeated falls] Onset: 01-29-2023 Episodic Other fractures (2 sources) Closed fracture of sternum; Translations: [Unspecified fracture of sternum, subsequent encounter for fracture with routine healing] 08-03-2024 Episodic Other fractures (2 sources) Unspecified fracture of sternum, subsequent encounter for fracture with routine healing; Translations: [Unspecified fracture of sternum, subsequent encounter for fracture with routine healing] Onset: 08-13-2024 Episodic Other gastrointestinal disorders (1 source) Dysphagia; Translations: [Dysphagia, unspecified type] Episodic Other gastrointestinal disorders (1 source) Constipation; Translations: [Constipation, unspecified] 08-19-2024 Episodic Other injuries and conditions due to external causes (4 sources) Closed injury of head; Translations: [Head injury, unspecified] 08-09-2022 Episodic Other nervous system disorders (1 source) Other chronic pain; Translations: [OTHER CHRONIC PAIN] Onset: 01-22-2017 Chronic Other nervous system disorders (2 sources) Normal pressure hydrocephalus; Translations: [(Idiopathic) normal pressure hydrocephalus] Chronic Other nervous system disorders (2 sources) (Idiopathic) normal pressure hydrocephalus; Translations: [(Idiopathic) normal pressure hydrocephalus] Onset: 04-17-2022 Chronic Other nervous system disorders (8 sources) Poor balance; Translations: [Other symptoms involving nervous and musculoskeletal systems] Episodic Other non-traumatic joint disorders (2 sources) Pain of right wrist; Translations: [Pain in right wrist] 12-24-2023 Episodic Other screening for suspected conditions (not mental disorders or infectious disease) (20 sources) Magnetic resonance imaging of brain abnormal; Translations: [Other abnormal findings on diagnostic imaging of central nervous system] Onset: 04-21-2023 Episodic Other skin disorders (6 sources) Dystrophia unguium; Translations: [Nail dystrophy] 07-15-2023 Episodic Other upper respiratory disease (1 source) Choking sensation; Translations: [Other symptoms involving head and neck] 05-26-2022 Episodic Parkinson`s disease (20 sources) Parkinson's disease; Translations: [Parkinson's disease] Onset: 11-06-2022 Chronic Parkinson`s disease (12 sources) Parkinson`s disease; Translations: [Parkinson's disease without dyskinesia, without mention of fluctuations (Multi)] Onset: 04-21-2023 Residual codes; unclassified (1 source) Altered mental status, unspecified; Translations: [Altered mental status, unspecified] Onset: 11-06-2022 Episodic Residual codes; unclassified (3 sources) Pain; Translations: [Pain, unspecified] 12-18-2023 Episodic Residual codes; unclassified (1 source) At risk of disease; Translations: [Other specified personal risk factors, not elsewhere classified] 09-23-2024 Episodic Schizophrenia and other psychotic disorders (20 sources) Schizophrenia, unspecified; Translations: [Schizophrenia] Onset: 01-22-2017 04-21-2023 Chronic Thyroid disorders (20 sources) Hypothyroidism, unspecified; Translations: [Nontoxic single thyroid nodule] Onset: 08-09-2022 04-21-2023 Chronic Unclassified (1 source) Pure hypercholesterolemia, unspecified; Translations: [PURE HYPERCHOLESTEROLEMIA, UNSPECIFIED] Onset: 01-22-2017 Unclassified (1 source) detention (current) use of oral hypoglycemic drugs; Translations: [SENIOR CARE (CURRENT) USE OF ORAL HYPOGLYCEMIC DRUGS] Onset: 01-22-2017 Unclassified (2 sources) CHOKED ON DINNER 05-25-2022 Comment on above: CHOKED ON DINNER Unclassified (2 sources) FALL AT HOME. LAC TO RT SIDE OF FORHEAD 08-09-2022 Comment on above: FALL AT HOME. LAC TO RT SIDE OF FORHEAD Unclassified (1 source) Scalp hematoma, initial encounter 10-07-2022 Unclassified (2 sources) LETHARGIC 11-06-2022 Comment on above: LETHARGIC Unclassified (2 sources) ER Follow-up; Translations: [ER Follow-up] Onset: 02-05-2024 Unclassified (2 sources) Consult Onset: 02-03-2024 Urinary tract infections (5 sources) Urinary tract infectious disease; Translations: [Urinary tract infection, site not specified] Onset: 11-06-2022 08-18-2022 Episodic Past or Other Problems Problem Classification Problem Date Documented Da te Episodic/Chronic Abdominal pain (1 source) Unspecified abdominal pain; Translations: [UNSPECIFIED ABDOMINAL PAIN] Onset: 01-22-2017 Episodic Blindness and vision defects (20 sources) Presbyopia; Translations: [Presbyopia] Onset: 10-05-2014 06-24-2024 Episodic Disorders of teeth and jaw (3 sources) Mobile tooth; Translations: [Other specified disorders of teeth and supporting structures] Onset: 01-29-2024 01-29-2024 Episodic E Codes: Fall (9 sources) Unspecified fall, initial encounter; Translations: [Fall from non-moving wheelchair, initial encounter] Onset: 08-18-2022 12-04-2023 Episodic Fracture of upper limb (3 sources) Closed fracture of distal end of ulna; Translations: [Other fracture of lower end of right ulna, initial encounter for closed fracture] Onset: 12-04-2023 02-05-2024 Episodic Immunizations and screening for infectious disease (3 sources) Encounter for immunization; Translations: [Encounter for screening for respiratory tuberculosis] Onset: 08-09-2022 Episodic Intracranial injury (3 sources) Cerebral hemorrhage following injury; Translations: [Traumatic hemorrhage of right cerebrum with loss of consciousness of 30 minutes or less, initial encounter] Onset: 12-04-2023 12-04-2023 Episodic Joint disorders and dislocations; trauma-related (6 sources) Unspecified dislocation of right wrist and hand, initial encounter; Translations: [Closed dislocation of wrist, unspecified part] Onset: 12-04-2023 12-04-2023 Episodic Mood disorders (7 sources) Mood disorders; Translations: [Depression, unspecified] Onset: 11-06-2022 01-12-2024 Mycoses (14 sources) Onychomycosis; Translations: [Tinea unguium] Onset: 04-27-2024 07-15-2023 Episodic Nausea and vomiting (1 source) Nausea with vomiting, unspecified; Translations: [Nausea with vomiting, unspecified] Onset: 08-18-2022 Episodic Open wounds of head; neck; and trunk (6 sources) Facial laceration ; Translations: [Open wound of face, unspecified site, without mention of complication] Onset: 08-09-2022 08-09-2022 Episodic Other circulatory disease (2 sources) Other specified symptoms and signs involving the circulatory and respiratory systems; Translations: [Oth symptoms and signs involving the circ and resp systems] Onset: 05-26-2022 Episodic Other connective tissue disease (20 sources) Recurrent falls ; Translations: [History of fall] Onset: 10-08-2022 06-24-2024 Episodic Other connective tissue disease (2 sources) Pain in left hand; Translations: [Pain in left hand] Onset: 08-18-2022 Episodic Other connective tissue disease (2 sources) Pain in right toe(s); Translations: [Pain in right toe(s)] Onset: 04-27-2024 Episodic Other gastrointestinal disorders (1 source) Dysphagia, unspecified; Translations: [DYSPHAGIA, UNSPECIFIED] Onset: 01-24-2017 Episodic Other injuries and conditions due to external causes (1 source) History of falling; Translations: [History of falling] Onset: 10-08-2022 Episodic Other injuries and conditions due to external causes (2 sources) Unspecified injury of head, initial encounter; Translations: [Unspecified injury of head, initial encounter] Onset: 08-09-2022 Episodic Other nervous system disorders (3 sources) Other abnormalities of gait and mobility; Translations: [Other abnormalities of gait and mobility] Onset: 01-29-2023 Episodic Other nervous system disorders (7 sources) Abnormal gait; Translations: [Unspecified abnormalities of gait and mobility] Onset: 12-26-2023 12-26-2023 Episodic Other nervous system disorders (8 sources) Impairment of balance; Translations: [Other abnormalities of gait and mobility] Onset: 12-26-2023 12-26-2023 Episodic Other nervous system disorders (2 sources) Unspecified abnormalities of gait and mobility; Translations: [Unspecified abnormalities of gait and mobility] Onset: 12-26-2023 Episodic Other non-traumatic joint disorders (2 sources) Pain in right wrist; Translations: [Pain in right wrist] Onset: 12-24-2023 Episodic Other nutritional; endocrine; and metabolic disorders (1 source) Anorexia; Translations: [Anorexia] Onset: 08-18-2022 Episodic Other skin disorders (1 source) Localized swelling, mass and lump, head; Translations: [Localized swelling, mass and lump, head] Onset: 10-08-2022 Episodic Other skin disorders (2 sources) Nail dystrophy; Translations: [Nail dystrophy] Onset: 04-27-2024 Episodic Residual codes; unclassified (1 source) Edema, unspecified; Translations: [Edema, unspecified] Onset: 04-22-2022 Episodic Residual codes; unclassified (2 sources) Pain, unspecified; Translations: [Pain, unspecified] Onset: 02-03-2024 Episodic Superficial injury; contusion (20 sources) Hematoma of scalp; Translations: [Contusion of face, scalp, and neck except eye(s)] Onset: 10-08-2022 10-07-2022 Episodic Thyroid disorders (15 sources) Disorder of thyroid gland; Translations: [Disorder of thyroid, unspecified] Onset: 04-21-2023 04-21-2023 Episodic Unclassified (8 sources) Onset: 01-12-2024 Resolved: 02-05-2024 02-05-2024 Results Test Name Value Interpretation Reference Range Facility MTB SCREENon 10-08-2024 MITOGEN-NIL [id number] IU/mL Normal [facility] Comment on above: Performed By: #### L [id number] #### [facility] [address] [place] [address] Kirill Noe M.D. [id number] MTB SCREEN INTERPRETATION Negative Normal Negative [facility] Ambulatory Comment on above: Result Comment: No I FN-gamma response to M tuberculosis antigens was detected. Latent infection with M tuberculosis is unlikely. A single negative result does not exclude infection with M tuberculosis. In patients at high risk for M tuberculosis infection,a second test should be considered Performed By: #### L [id number] #### [facility] [address] [place] [address] Kirill Noe M.D. [id number] NIL 0.99143 IU/mL Normal [facility] Ambulatory Comment on above: Performed By: #### L [id number] #### [facility] [address] [place] [address] Kirill Noe M.D. [id number] -0.40839 IU/mL Normal 0.00 0.34 [facility] Ambulatory Comment on above: Performed By: #### L [id number] #### [facility] [address] [place] [address] Kirill Noe M.D. [id number] TB2-[id number] 0.88868 IU/mL Normal 0.00 0.34 [facility] Ambulatory Comment on above: Result Comment: Inte rferon gamma release is measured for specimens from each of the four collection tubes. A qualitative result (Negative, Positive, or Indeterminate) is based on interpretation of the four values, NIL, MITOGEN minus NIL (MITOGEN-NIL), TB1 minus NIL (TB1-NIL), and TB2 minus NIL (TB2-NIL). The NIL value represents nonspecific reactivity produced by the patient specimen. The MITOGEN-NIL value serves as the positive control for the patient specimen, demonstrating successful lymphocyte reactivity. The TB1-NIL tube specifically detects CD4+ lymphocyte reactivity, specifically stimulated by the TB1 antigens. The TB2-NIL tube detects both CD4+ and CD8+ lymphocyte reactivity, stimulated by the TB2 antigens. An overall Negative result does not completely rule out TB Infection. Performed By: #### L [id number] #### [facility] [address] [address] Kirill Noe M.D. [id number] XR UPPER GI W/SMALL BOWEL FO LLOW THROUGHon 09-30-2024 XR UPPER GI W/SMALL BOWEL FOLLOW THROUGH EXAMINATION: XR UPPER GI W/SMALL BOWEL FOLLOW THROUGH HISTORY: ORDERING SYSTEM PROVIDED HISTORY: ABNORMAL CT, TECHNOLOGIST PROVIDED HISTORY: Illness/Other Reason for exam: ABNORMAL CT Encounter Type: Ongoing Additional signs and symptoms: inflammation on prev test per family Fluoro dose in mGy: 9.2 ORDERING SYSTEM PROVIDED DIAGNOSIS CODES: R93.[address] of the abdomen COMPARISON: CT chest abdomen and pelvis 07/19/2024 TECHNIQUE: RADIATION EXPOSURE: Fluoro dose in Ka,r mGy: 9.2 Barium was administered, with fluoroscopic images the esophagus, followed by delayed images of the abdomen and pelvis. BARIUM SULFATE 96 % (W/W) ORAL POWDER FOR SUSPENSION - 1 Dose, BARIUM SULFATE 98 % ORAL POWDER FOR SUSPENSION - 1 Dose, FINDINGS: No esophageal obstruction. There is spontaneous esophageal reflux and dysmotility. The study demonstrated no evidence of obstruction or stricture. The transit time was within normal limits as contrast was seen to reach the colon by 60 minutes. The small bowel mucosa was normal in appearance. No other abnormalities appreciated. IMPRESSION: Esophageal reflux, and esophageal dysmotility. No obstruction or stricture. No evidence of small bowel obstruction or a delayed transit time or other small bowel abnormalities. Workstation ID: [id number] Dictated by: AZAEL MARLEY on FriSep 30, 2024 11:42:03 AM EDT Transcribed by: AZAEL MARLEY on FriSep 30, 2024 11:42:03 AM EDT Finalized by: AZAEL MARLEY on FriSep 30, 2024 11:42:03 AM EDT Normal [facility] Comment on above: Order Comment: Injur y/Trauma or Illness?:Injury/Trauma How long have you had these symptoms (acute/chronic)?:Acute Reason for exam?:fall History of cancer?:u Surgeries, chemotherapy, or radiation?:u Type of Exam?:Initial Mechanism of injury?:. ALBUMIN, RANDOM URINE W/CREA TININEon 09-22-2024 ALBUMIN, URINE 0.4 mg/dL Normal See Note: [facility] Comment on above: Order Comment: FASTI NG:NO FASTING: NO Result Comment: Refe rence Range: Reference Range Not established Performed By: #### 6 517 #### [facility] [address] [place] [address] Code And Test Clerk: Russell Pagan MD ALBUMIN/CREATININE RATIO, RANDOM URINE 11 mg/g creat Normal <30 [facility] Comment on above: Order Comment: FASTI NG:NO FASTING: NO Result Comment: The ADA defines abnormalities in albumin excretion as follows: Albuminuria Category Result (mg/g creatinine) Normal to Mildly increased <30 Moderately increased 30-299 Severely increased > OR = 300 The ADA recommends that at least two of three specimens collected within a 3-6 month period be abnormal before considering a patient to be within a diagnostic category. Performed By: #### 6 517 #### [facility] [place] [address] Code And Test Clerk: Russell Pagan MD Creatinine (U) [Mass/Vol] 36 mg/dL Normal 20-275 [facility] Comment on above: Order Comment: FASTI NG:NO FASTING: NO Performed By: #### 6 517 #### [facility] [place] [address] Code And Test Clerk: Russell Pagan MD HEMOGLOBIN A1con 09-22-2024 HbA1c (Bld) [Mass fraction] 8.7 % High <5.7 [facility] Comment on above: Order Comment: FASTI NG:NO FASTING: NO Result Comment: For someone without known diabetes, a hemoglobin A1c value of 6.5% or greater indicates that they may have diabetes and this should be confirmed with a follow-up test. For someone with known diabetes, a value <7% indicates that their diabetes is well controlled and a value greater than or equal to 7% indicates suboptimal control. A1c targets should be individualized based on duration of diabetes, age, comorbid conditions, and other considerations. Currently, no consensus exists regarding use of hemoglobin A1c for diagnosis of diabetes for children. Performed By: #### 4 96 #### [address], [address] [place] [address] Code And Test Clerk: Russell Pagan MD POC GLUCOSE - [facility] 025 Glucose [Mass/Vol] 218 mg/dL [address] Comment on above: Performed By: #### 4 6932 ####[facility] [address] [address] David Mcclain M.D. [id number] Glucose [Mass/Vol] 143 mg/dL [address] Comment on above: Performed By: #### 4 6932 #### [facility] [address] [address] David Mcclain M.D. [id number] POC GLUCOSE - [facility] 025 Glucose [Mass/Vol] 170 mg/dL [address] Comment on above: Performed By: #### 4 6932 #### LAB [address] [address] David Mcclain M.D. [id number] Glucose [Mass/Vol] 134 mg/dL [address] Comment on above: Performed By: #### 4 6932 #### [facility] [address] [address] David Mcclain M.D. [id number] Glucose [Mass/Vol] 154 mg/dL [address] Comment on above: Performed By: #### 4 6932 ####[facility] [address] [address] David Mcclain M.D. [id number] Glucose [Mass/Vol] 120 mg/dL [address] Comment on above: Performed By: #### 4 6932 #### [facility] [address] [address] David Mcclain M.D. [id number] POC GLUCOSE - [facility] 025 Glucose [Mass/Vol] 107 mg/dL [address] Comment on above: Performed By: #### 4 6932 #### LAB [address] [address] David Mcclain M.D. [id number] Glucose [Mass/Vol] 106 mg/dL [address] Comment on above: Performed By: #### 4 6932 #### [facility] [address] [address] David Mcclain M.D. [id number] LIPASEon 07-20-2024 Lipase [Catalytic activity/Vol] 36 U/L [place] [facility] Comment on above: Performed By: #### 4 6973 #### [facility] [address] [address] David Mcclain M.D. [id number] POC GLUCOSE - [facility] 025 Glucose [Mass/Vol] 131 mg/dL [address] Comment on above: Performed By: #### 4 6932 #### LAB [address] [address] David Mcclain M.D. [id number] Glucose [Mass/Vol] 147 mg/dL [address] Comment on above: Performed By: #### 4 6952 ####[facility] [address] [id number] David Mcclain M.D. [id number] Glucose [Mass/Vol] 131 mg/dL [address] Comment on above: Performed By: #### 4 4365 #### [facility] [address] [address] David Mcclain M.D. [id number] Glucose [Mass/Vol] 160 mg/dL High 65-99 [facility] Comment on above: Performed By: #### 4 6932 #### LAB [address] [place], [place] [address] David Mcclain M.D. [id number] URINE AEROBIC CULTUREon 07-10 URINE AEROBIC CULTURE URINE CULTURE ESCHERICHIA COLI >100,000 CFU/mL Escherichia coli < 10,000 CFU/mL of normal urogenital microbiota Organism: ESCHERICHIA COLI Antibiotic Interpretation MAL Status Amikacin Susc Islt S <=2 F Ampicillin+Sulbac Susc Islt S 4 F Ampicillin Susc Islt S 8 F Aztreonam Susc Islt S <=1 F Cefazolin Susc Islt S <=4 F Breakpoints for cefazolin interpretations are based on treatment of uncomplicated UTI. If cefazolin is considered for other infections please contact the Microbiology laboratory for further testing. Cefepime Susc Islt S <=1 F Ciprofloxacin Susc Islt S <=0.25 F AVOID fluoroquinolone treatment whenever possible. Risk of serious side effects may outweigh benefit. Gentamicin Susc Islt S <=1 F Nitrofurantoin Susc Islt I 64 F Pip+Tazo Susc Islt S <=4 F Tobramycin Susc Islt S <=1 F TMP SMX Susc Islt S <=20 F B-Lactamase Extended Susc Islt S Negative F Abnormal [facility] Comment on above: Performed By: #### 4 6932 #### LAB [address] [place], [place] [address] David Mcclain M.D. [id number] APTTon 07-19-2024 aPTT Coag (Bld) [Time] 23 s Normal 23-[address] [facility] Comment on above: Order Comment: Thera peutic range for APTT's is 68 - 104 seconds Performed By: #### 4 5113 #### LAB [address] [place], [place] [address] David Mcclain M.D. [id number] CBC WITH AUTO DIFFERENTIALon 07-19-2024 AUTO NRBC 0.0 % Normal [facility] Comment on above: Performed By: #### 4 6932 #### LAB [address] [address] David Mcclain M.D. [id number] AUTO NRBC ABS COUNT 0.00 K/mcL Normal 0.00-0.[address] [facility] Comment on above: Performed By: #### 4 6932 #### LAB [address] [address] David Mcclain M.D. [id number] BASOPHILS ABSOLUTE COUNT 0.01 K/mcL Normal 0.00-0.[address] [facility] Comment on above: Performed By: #### 4 6927 #### LAB [address] [address] David Mcclain M.D. [id number] Basophils/100 WBC (Bld) 0.2 % Normal [facility] Comment on above: Performed By: #### 4 6968 #### LAB [address] [address] David Mcclain M.D. [id number] Eosinophils (Bld) [#/Vol] 0.20 10*3/uL Normal 0.00-0.[address] [facility] Comment on above: Performed By: #### 4 8161 #### LAB [address] [address] David Mcclain M.D. [id number] Eosinophils/100 WBC (Bld) 3.3 % Normal [facility] Comment on above: Performed By: #### 4 6347 #### LAB [address] [address] David Mcclain M.D. [id number] Erythrocyte distribution width (RBC) [Ratio] 13.3 % Normal 11.6-14.[address] [facility] Comment on above: Performed By: #### 4 3248 #### LAB [address] [address] David Mcclain M.D. [id number] Hematocrit (Bld) [Volume fraction] 47.7 % High 36.0-46.[address] [facility] Comment on above: Performed By: #### 4 7305 #### LAB [address] [address] David Mcclain M.D. [id number] Hemoglobin (Bld) [Mass/Vol] 14.4 g/dL Normal 12.0-16.[address] [facility] Comment on above: Performed By: #### 4 6935 #### LAB [address] [address] David Mcclain M.D. [id number] IG ABSOLUTE 0.02 K/mcL Normal 0.00-0.[address] [facility] Comment on above: Performed By: #### 4 6992 #### LAB [address] [address] David Mcclain M.D. [id number] IG PERCENT 0.30 % Normal [facility] Comment on above: Result Comment: The IG parameter is the percentage of metamyelocytes, myelocytes and promyelocytes. An immature granulocyte count (IG) of 1% or more suggests the possibility of infection, an IG count of 3% is very likely related to an infection. Performed By: #### 4 3582 #### LAB [address] [address] David Mcclain M.D. [id number] Lymphocytes (Bld) [#/Vol] 0.92 10*3/uL Normal 0.90-4.[address] [facility] Comment on above: Performed By: #### 4 6923 #### LAB [address] [address] David Mcclain M.D. [id number] Lymphocytes/100 WBC (Bld) 15.4 % Normal [facility] Comment on above: Performed By: #### 4 6964 #### LAB [address] [address] David Mcclain M.D. [id number] MCH (RBC) [Entitic mass] 28.7 pg Normal 26.0-34.[address] [facility] Comment on above: Performed By: #### 4 6956 #### LAB [address] [address] David Mcclain M.D. [id number] MCV (RBC) [Entitic vol] 95.0 fL Normal 80.0-100.[address] [facility] Comment on above: Performed By: #### 4 6921 #### LAB [address] [address] David Mcclain M.D. [id number] MEAN CORPUSCULAR HEMOGLOBIN CONC 30.2 g/dL Low 31.0-37.[address] [facility] Comment on above: Performed By: #### 4 6934 #### LAB [address] [address] David Mcclain M.D. [id number] Monocytes (Bld) [#/Vol] 0.40 10*3/uL Normal 0.30-0.[address] [facility] Comment on above: Performed By: #### 4 6900 #### LAB [address] [address] David Mcclain M.D. [id number] Monocytes/100 WBC (Bld) 6.7 % Normal [facility] Comment on above: Performed By: #### 4 7881 #### LAB [address] [address] David Mcclain M.D. [id number] NEUTROPHILS ABSOLUTE COUNT 4.43 K/mcL Normal 1.70-7.[address] [facility] Comment on above: Performed By: #### 4 6976 #### LAB [address] [address] David Mcclain M.D. [id number] Neutrophils/100 WBC (Bld) 74.1 % Normal [facility] Comment on above: Performed By: #### 4 8546 #### LAB [address] [address] David Mcclain M.D. [id number] Platelet mean volume (Bld) [Entitic vol] 10.4 fL Normal 9.4-12.[address] [facility] Comment on above: Performed By: #### 4 0124 #### LAB [address] [address] David Mcclain M.D. [id number] Platelets (Bld) [#/Vol] 294 10*3/uL Normal 150-[address] [facility] Comment on above: Performed By: #### 4 6932 #### LAB [address] [address] David Mcclain M.D. [id number] RBC (Bld) [#/Vol] 5.02 10*6/uL Normal 4.00-5.[address] [facility] Comment on above: Performed By: #### 4 6932 #### LAB [address] [address] David Mcclain M.D. [id number] WBC (Bld) [#/Vol] 5.98 10*3/uL Normal 4.50-11.[address] [facility] Comment on above: Performed By: #### 4 6932 #### LAB [address] [address] David cMclain M.D. [id number] COMPREHENSIVE METABOLIC PANE Huan 07-19-2024 Albumin [Mass/Vol] 4.4 g/dL Normal 3.2-5.2 [facility] Comment on above: Order Comment: [facility] has implemented the eGFR calculation approach that does not have a coefficient for race that conforms to the NKF-ASN Task Force Recommendations. Performed By: #### 4 6932 #### LAB [address] [address] David Mcclain M.D. [id number] ALP [Catalytic activity/Vol] 68 U/L Normal 40-[address] [facility] Comment on above: Order Comment: [facility] has implemented the eGFR calculation approach that does not have a coefficient for race that conforms to the NKF-ASN Task Force Recommendations. Performed By: #### 4 6932 #### LAB [address] [address] David Mcclain M.D. [id number] ALT [Catalytic activity/Vol] 15 U/L Normal 0-35 U/L [facility] Comment on above: Order Comment: [facility] has implemented the eGFR calculation approach that does not have a coefficient for race that conforms to the NKF-ASN Task Force Recommendations. Performed By: #### 4 6932 #### LAB [address] [address] David Mcclain M.D. [id number] Anion gap [Moles/Vol] 18 mmol/L Normal 10-[address] [facility] Comment on above: Order Comment: [facility] has implemented the eGFR calculation approach that does not have a coefficient for race that conforms to the NKF-ASN Task Force Recommendations. Performed By: #### 4 6932 #### LAB [address] [address] David Mcclain M.D. [id number] AST [Catalytic activity/Vol] 17 U/L Normal 0-35 U/L [facility] Comment on above: Order Comment: [facility] has implemented the eGFR calculation approach that does not have a coefficient for race that conforms to the NKF-ASN Task Force Recommendations. Performed By: #### 4 6932 #### LAB [address] [address] David Mcclain M.D. [id number] Bilirubin [Mass/Vol] 0.2 mg/dL Normal 0.0-1.3 [facility] Comment on above: Order Comment: [facility] has implemented the eGFR calculation approach that does not have a coefficient for race that conforms to the NKF-ASN Task Force Recommendations. Performed By: #### 4 6932 #### LAB [address] [address] David Mcclain M.D. [id number] Calcium [Mass/Vol] 9.8 mg/dL Normal 8.4-10.2 [facility] Comment on above: Order Comment: [facility] has implemented the eGFR calculation approach that does not have a coefficient for race that conforms to the NKF-ASN Task Force Recommendations. Performed By: #### 4 6932 #### LAB [address] [id number] David Mcclain M.D. [id number] Chloride [Moles/Vol] 103 mmol/L Normal 98-108 [facility] Comment on above: Order Comment: [facility] has implemented the eGFR calculation approach that does not have a coefficient for race that conforms to the NKF-ASN Task Force Recommendations. Performed By: #### 4 6932 #### LAB [address] [place], [place] [address] David Mcclain M.D. [id number] Creatinine [Mass/Vol] 0.94 mg/dL Normal 0.60-1.[address] [facility] Comment on above: Order Comment: [facility] has implemented the eGFR calculation approach that does not have a coefficient for race that conforms to the NKF-ASN Task Force Recommendations. Performed By: #### 4 6932 #### LAB [address] [address] David Mcclain M.D. [id number] EGFR 68 mL/min/1.73 m2 Normal >=60 [facility] Comment on above: Order Comment: [facility] has implemented the eGFR calculation approach that does not have a coefficient for race that conforms to the NKF-ASN Task Force Recommendations. Result Comment: Velasquez mated GFR was calculated using the 2020 CKD-EPI creatinine equation. Performed By: #### 4 6932 #### LAB [address] [place], [place] [address] David Mcclain M.D. [id number] Glucose [Mass/Vol] 140 mg/dL High 65-99 [facility] Comment on above: Order Comment: [facility] has implemented the eGFR calculation approach that does not have a coefficient for race that conforms to the NKF-ASN Task Force Recommendations. Performed By: #### 4 6932 #### [facility] [address] [place], [place] [address] David Mcclain M.D. [id number] HCO3 (Bld) [Moles/Vol] 25 mmol/L Normal 21-[address] [facility] Comment on above: Order Comment: [facility] has implemented the eGFR calculation approach that does not have a coefficient for race that conforms to the NKF-ASN Task Force Recommendations. Performed By: #### 4 6932 #### LAB [address] [place], [place] [address] David Mcclain M.D. [id number] Potassium [Moles/Vol] 4.2 mmol/L Normal 3.5-5.[address] [facility] Comment on above: Order Comment: [facility] has implemented the eGFR calculation approach that does not have a coefficient for race that conforms to the NKF-ASN Task Force Recommendations. Performed By: #### 4 6932 #### LAB [address] [place], [place] [address] David Mcclain M.D. [id number] Protein [Mass/Vol] 7.5 g/dL Normal 6.0-8.0 [facility] Comment on above: Order Comment: [facility] has implemented the eGFR calculation approach that does not have a coefficient for race that conforms to the NKF-ASN Task Force Recommendations. Performed By: #### 4 6932 #### LAB [address] [address] David Mcclain M.D. [id number] Sodium [Moles/Vol] 142 mmol/L Normal 135-145 [facility] Comment on above: Order Comment: [facility] has implemented the eGFR calculation approach that does not have a coefficient for race that conforms to the NKF-ASN Task Force Recommendations. Performed By: #### 4 6932 #### LAB [address] [id number] David Mcclain M.D. [id number] Urea nitrogen [Mass/Vol] 30 mg/dL High 8-[address] [facility] Comment on above: Order Comment: [facility] has implemented the eGFR calculation approach that does not have a coefficient for race that conforms to the NKF-ASN Task Force Recommendations. Performed By: #### 4 6932 #### LAB [address] [place], [place] [address] David Mcclain M.D. [id number] Urea nitrogen/Creatinine [Mass ratio] 31.9 mg/mg High 10.0-20.[address] [facility] Comment on above: Order Comment: [facility] has implemented the eGFR calculation approach that does not have a coefficient for race that conforms to the NKF-ASN Task Force Recommendations. Performed By: #### 4 6932 #### LAB [address] [place], [place] [address] David Mcclain M.D. [id number] COVID-19/INFLUENZA A,B MOLEC ULARon 07-19-2024 SARS-CoV-2 (COVID-19) Ab IA Ql SARS-COV-2 (LEE ANN) Not Detected INFLUENZA A (LEE ANN) Not Detected INFLUENZA B (LEE ANN) Not Detected Normal Not Detected [facility] Comment on above: Performed By: #### L [id number] #### LAB [address] [place], [place] [address] David Mcclain M.D. [id number] CT CERVICAL SPINE WITHOUT CO NTRASTon 07-19-2024 CT CERVICAL SPINE WITHOUT CONTRAST EXAMINATION: CT HEAD OR BRAIN WITHOUT CONTRAST; CT CERVICAL SPINE WITHOUT CONTRAST; CT CHEST ABDOMEN PELVIS WITHOUT CONTRAST WITH T/L RECONS HISTORY: ORDERING SYSTEM PROVIDED HISTORY: trauma, TECHNOLOGIST PROVIDED HISTORY: Illness/Other Reason for exam: frequent falls, head pain and back pain Encounter Type: Initial Additional signs and symptoms: fall ORDERING SYSTEM PROVIDED DIAGNOSIS CODES: COMPARISON: 07/14/2024, 12/04/2023 TECHNIQUE: CT examination of the head and cervical spine was performed without IV contrast. Sagittal and coronal reformatted images were submitted for review. CT imaging of the chest, abdomen, and pelvis was performed without IV contrast. Additional sagittal and coronal reformatted images were submitted for review. During the course of this examination, CT imaging of the thoracic and lumbar spine was also performed with reformatted images submitted for review. Dose reduction techniques were achieved by using automated exposure control and/or adjustment of mA and/or kV according to patient size and/or use of iterative reconstruction technique. FINDINGS: CT HEAD: CALVARIUM/SKULL BASE: No evidence of fracture or destructive lesion. Mastoids and middle ears grossly clear. PARANASAL SINUSES: Imaged portions clear. BRAIN: There is no acute intracranial hemorrhage. There is no mass effect or midline shift. There is no hydrocephalus. There is no evidence of an acute large vascular territory cortical infarct. There is senescent change and there is global cerebral volume loss with a moderate background of nonspecific white matter disease in the periventricular and subcortical distribution of the bilateral cerebral hemispheres which is most commonly associated with the sequelae of chronic microvascular ischemia. No abnormal extra-axial fluid collections are identified. There are similar regions of conspicuous appearing patchy foci of hypoattenuation in the bilateral basal ganglia and deep hemispheric white matter. No abnormal extra-axial fluid collections are identified. CT CERVICAL SPINE: ALIGNMENT: There is no evidence of spondylolysis or spondylolisthesis. CRANIOCERVICAL JUNCTION: No evidence of fracture or dislocation. VERTEBRAE: No acute fractures. Vertebral body heights maintained. SPINAL CANAL: No gross upper cervical canal hematoma. DEGENERATIVE CHANGES: There is ymbo-wh-yfobiedb multilevel discogenic disease and degenerative facet and uncinate process spurring in the cervical spine contributing to mild canal and foraminal narrowing. Discogenic changes appear most conspicuous at C5/C6. Degenerative facet arthropathy and uncinate process spurring is similar in appearance at multiple levels in the cervical spine and do not appear to contribute to significant osseous foraminal stenosis. The incidentally imaged paraspinal soft tissues and soft tissue structures in the neck demonstrate no additional clearly acute or diagnostic abnormality otherwise. CT CHEST: Evaluation of the thoracic inlet demonstrates a normal appearance of the unenhanced thyroid. The unenhanced heart and great vessels appear to be normal in caliber and configuration. There is a mild-moderate burden of atherosclerotic disease in the coronary arteries. No pericardial effusion. The central airways appear to be normal in caliber and configuration. There are no pathologically enlarged or suspicious morphologic lymph nodes identified in the mediastinum, hilum, or the axilla. There is a mild background stigmata of COPD in there is diffuse peribronchial thickening bilaterally with bilateral basilar atelectatic change suspected. The osseous elements of the thorax reveal a subacute un healed fracture deformity through the sternum involving the sternal body. No acute rib fractures are identified. CT THORACIC SPINE: For the purposes of this examination, there appear to be 12 thoracic morphology rib-bearing vertebral segments. Alignment of the thoracic spine reveals no evidence of spondylolysis or spondylolisthesis. There is a very mild dextroconvex thoracic scoliosis. There is stable mild anterior wedging at the T12 level with less than 50% loss of vertebral body height. The thoracic vertebral body heights appear to be maintained. The facets are intact and appear to be aligned. The spinous processes appear to be intact. There is no significant canal or foraminal narrowing. No canal hematoma. CT ABDOMEN: The liver appears to be within normal limits. The gallbladder is mildly hydropic in appearance but is otherwise within normal limits. The spleen is within normal limits. The adrenal glands demonstrate mildly thickened appearance without focal mass. Pancreas appears to be normal in size however, there is some slight ill definition of fat planes surrounding the pancreas, nonspecific. There is no evidence of hydronephrosis or nephrolithiasis. The large and th (more content not included)... Normal [facility] Comment on above: Order Comment: Injur y/Trauma or Illness?:Injury/TraumaHow long have you had these symptoms (acute/chronic)?:AcuteReason for exam?:frequent falls, head pain and back painType of Exam?:InitialMechanism of injury?:fall CT CHEST ABDOMEN PELVIS WITH OUT CONTRAST WITH T/L RECONSon 07-19-2024 CT CHEST ABDOMEN PELVIS WITHOUT CONTRAST WITH T/L RECONS EXAMINATION: CT HEAD OR BRAIN WITHOUT CONTRAST; CT CERVICAL SPINE WITHOUT CONTRAST; CT CHEST ABDOMEN PELVIS WITHOUT CONTRAST WITH T/L RECONS HISTORY: ORDERING SYSTEM PROVIDED HISTORY: trauma, TECHNOLOGIST PROVIDED HISTORY: Illness/Other Reason for exam: frequent falls, head pain and back pain Encounter Type: Initial Additional signs and symptoms: fall ORDERING SYSTEM PROVIDED DIAGNOSIS CODES: COMPARISON: 07/14/2024, 12/04/2023 TECHNIQUE: CT examination of the head and cervical spine was performed without IV contrast. Sagittal and coronal reformatted images were submitted for review. CT imaging of the chest, abdomen, and pelvis was performed without IV contrast. Additional sagittal and coronal reformatted images were submitted for review. During the course of this examination, CT imaging of the thoracic and lumbar spine was also performed with reformatted images submitted for review. Dose reduction techniques were achieved by using automated exposure control and/or adjustment of mA and/or kV according to patient size and/or use of iterative reconstruction technique. FINDINGS: CT HEAD: CALVARIUM/SKULL BASE: No evidence of fracture or destructive lesion. Mastoids and middle ears grossly clear. PARANASAL SINUSES: Imaged portions clear. BRAIN: There is no acute intracranial hemorrhage. There is no mass effect or midline shift. There is no hydrocephalus. There is no evidence of an acute large vascular territory cortical infarct. There is senescent change and there is global cerebral volume loss with a moderate background of nonspecific white matter disease in the periventricular and subcortical distribution of the bilateral cerebral hemispheres which is most commonly associated with the sequelae of chronic microvascular ischemia. No abnormal extra-axial fluid collections are identified. There are similar regions of conspicuous appearing patchy foci of hypoattenuation in the bilateral basal ganglia and deep hemispheric white matter. No abnormal extra-axial fluid collections are identified. CT CERVICAL SPINE: ALIGNMENT: There is no evidence of spondylolysis or spondylolisthesis. CRANIOCERVICAL JUNCTION: No evidence of fracture or dislocation. VERTEBRAE: No acute fractures. Vertebral body heights maintained. SPINAL CANAL: No gross upper cervical canal hematoma. DEGENERATIVE CHANGES: There is mutl-wd-kskdyldw multilevel discogenic disease and degenerative facet and uncinate process spurring in the cervical spine contributing to mild canal and foraminal narrowing. Discogenic changes appear most conspicuous at C5/C6. Degenerative facet arthropathy and uncinate process spurring is similar in appearance at multiple levels in the cervical spine and do not appear to contribute to significant osseous foraminal stenosis. The incidentally imaged paraspinal soft tissues and soft tissue structures in the neck demonstrate no additional clearly acute or diagnostic abnormality otherwise. CT CHEST: Evaluation of the thoracic inlet demonstrates a normal appearance of the unenhanced thyroid. The unenhanced heart and great vessels appear to be normal in caliber and configuration. There is a mild-moderate burden of atherosclerotic disease in the coronary arteries. No pericardial effusion. The central airways appear to be normal in caliber and configuration. There are no pathologically enlarged or suspicious morphologic lymph nodes identified in the mediastinum, hilum, or the axilla. There is a mild background stigmata of COPD in there is diffuse peribronchial thickening bilaterally with bilateral basilar atelectatic change suspected. The osseous elements of the thorax reveal a subacute un healed fracture deformity through the sternum involving the sternal body. No acute rib fractures are identified. CT THORACIC SPINE: For the purposes of this examination, there appear to be 12 thoracic morphology rib-bearing vertebral segments. Alignment of the thoracic spine reveals no evidence of spondylolysis or spondylolisthesis. There is a very mild dextroconvex thoracic scoliosis. There is stable mild anterior wedging at the T12 level with less than 50% loss of vertebral body height. The thoracic vertebral body heights appear to be maintained. The facets are intact and appear to be aligned. The spinous processes appear to be intact. There is no significant canal or foraminal narrowing. No canal hematoma. CT ABDOMEN: The liver appears to be within normal limits. The gallbladder is mildly hydropic in appearance but is otherwise within normal limits. The spleen is within normal limits. The adrenal glands demonstrate mildly thickened appearance without focal mass. Pancreas appears to be normal in size however, there is some slight ill definition of fat planes surrounding the pancreas, nonspecific. There is no evidence of hydronephrosis or nephrolithiasis. The large and th (more content not included)... Normal [facility] Comment on above: Order Comment: Injur y/Trauma or Illness?:Injury/TraumaHow long have you had these symptoms (acute/chronic)?:AcuteReason for exam?:frequent falls, head pain and back painType of Exam?:InitialMechanism of injury?:fall, pt unable to raise arms above head for scan - best images possible CT HEAD OR BRAIN WITHOUT CON TRASTon 07-19-2024 CT HEAD OR BRAIN WITHOUT CONTRAST EXAMINATION: CT HEAD OR BRAIN WITHOUT CONTRAST; CT CERVICAL SPINE WITHOUT CONTRAST; CT CHEST ABDOMEN PELVIS WITHOUT CONTRAST WITH T/L RECONS HISTORY: ORDERING SYSTEM PROVIDED HISTORY: trauma, TECHNOLOGIST PROVIDED HISTORY: Illness/Other Reason for exam: frequent falls, head pain and back pain Encounter Type: Initial Additional signs and symptoms: fall ORDERING SYSTEM PROVIDED DIAGNOSIS CODES: COMPARISON: 07/14/2024, 12/04/2023 TECHNIQUE: CT examination of the head and cervical spine was performed without IV contrast. Sagittal and coronal reformatted images were submitted for review. CT imaging of the chest, abdomen, and pelvis was performed without IV contrast. Additional sagittal and coronal reformatted images were submitted for review. During the course of this examination, CT imaging of the thoracic and lumbar spine was also performed with reformatted images submitted for review. Dose reduction techniques were achieved by using automated exposure control and/or adjustment of mA and/or kV according to patient size and/or use of iterative reconstruction technique. FINDINGS: CT HEAD: CALVARIUM/SKULL BASE: No evidence of fracture or destructive lesion. Mastoids and middle ears grossly clear. PARANASAL SINUSES: Imaged portions clear. BRAIN: There is no acute intracranial hemorrhage. There is no mass effect or midline shift. There is no hydrocephalus. There is no evidence of an acute large vascular territory cortical infarct. There is senescent change and there is global cerebral volume loss with a moderate background of nonspecific white matter disease in the periventricular and subcortical distribution of the bilateral cerebral hemispheres which is most commonly associated with the sequelae of chronic microvascular ischemia. No abnormal extra-axial fluid collections are identified. There are similar regions of conspicuous appearing patchy foci of hypoattenuation in the bilateral basal ganglia and deep hemispheric white matter. No abnormal extra-axial fluid collections are identified. CT CERVICAL SPINE: ALIGNMENT: There is no evidence of spondylolysis or spondylolisthesis. CRANIOCERVICAL JUNCTION: No evidence of fracture or dislocation. VERTEBRAE: No acute fractures. Vertebral body heights maintained. SPINAL CANAL: No gross upper cervical canal hematoma. DEGENERATIVE CHANGES: There is ryiy-yr-shaclkta multilevel discogenic disease and degenerative facet and uncinate process spurring in the cervical spine contributing to mild canal and foraminal narrowing. Discogenic changes appear most conspicuous at C5/C6. Degenerative facet arthropathy and uncinate process spurring is similar in appearance at multiple levels in the cervical spine and do not appear to contribute to significant osseous foraminal stenosis. The incidentally imaged paraspinal soft tissues and soft tissue structures in the neck demonstrate no additional clearly acute or diagnostic abnormality otherwise. CT CHEST: Evaluation of the thoracic inlet demonstrates a normal appearance of the unenhanced thyroid. The unenhanced heart and great vessels appear to be normal in caliber and configuration. There is a mild-moderate burden of atherosclerotic disease in the coronary arteries. No pericardial effusion. The central airways appear to be normal in caliber and configuration. There are no pathologically enlarged or suspicious morphologic lymph nodes identified in the mediastinum, hilum, or the axilla. There is a mild background stigmata of COPD in there is diffuse peribronchial thickening bilaterally with bilateral basilar atelectatic change suspected. The osseous elements of the thorax reveal a subacute un healed fracture deformity through the sternum involving the sternal body. No acute rib fractures are identified. CT THORACIC SPINE: For the purposes of this examination, there appear to be 12 thoracic morphology rib-bearing vertebral segments. Alignment of the thoracic spine reveals no evidence of spondylolysis or spondylolisthesis. There is a very mild dextroconvex thoracic scoliosis. There is stable mild anterior wedging at the T12 level with less than 50% loss of vertebral body height. The thoracic vertebral body heights appear to be maintained. The facets are intact and appear to be aligned. The spinous processes appear to be intact. There is no significant canal or foraminal narrowing. No canal hematoma. CT ABDOMEN: The liver appears to be within normal limits. The gallbladder is mildly hydropic in appearance but is otherwise within normal limits. The spleen is within normal limits. The adrenal glands demonstrate mildly thickened appearance without focal mass. Pancreas appears to be normal in size however, there is some slight ill definition of fat planes surrounding the pancreas, nonspecific. There is no evidence of hydronephrosis or nephrolithiasis. The large and th (more content not included)... Normal [facility] Comment on above: Order Comment: Injur y/Trauma or Illness?:Illness/OtherHow long have you had these symptoms (acute/chronic)?:AcuteReason for exam?:frequent falls, head pain and back painType of Exam?:InitialAdditional signs and symptoms?:fall ED Prov Noteon 07-19-2024 ED Prov Note [facility] EMERGENCY DEPARTMENT ATTENDING NOTE: NAME: Shaji Esquivel CSN: [id number] 63 y.o. PCP: Zara Evans DO History: Chief Complaint: Fall HPI: 63-year-old female past medical history of hypertension hyperlipidemia diabetes subarachnoid hemorrhage presents to the emergency department from senior care assisted living facility for evaluation of multiple falls that been progressively worsening over the past 2 weeks. No specific alleviating or aggravating factors. Today, per client experience manager, patient fell from chair hit back of head. Patient reporting knee pain symptoms as well as back pain symptoms on the right upper side. Patient reports head pain symptoms as well. Patient denies any other symptoms at this time PMHx: Past Medical History: Diagnosis Date Diabetes (HCC) Disease of thyroid gland High cholesterol Hypertension SAH (subarachnoid hemorrhage) (HCC) 12/04/2023 PMSx: Past Surgical History: Procedure Laterality Date XR LUMBAR PUNCTURE (DIAGNOSTIC) WITH GAIT ANALYSIS 04/17/2022 XR LUMBAR PUNCTURE (DIAGNOSTIC) WITH GAIT ANALYSIS 04/17/2022 DIAGNOSTICS FAM. Hx: History reviewed. No pertinent family history. SOC. Hx: Social History Socioeconomic History Marital status: Single Tobacco Use Smoking status: Never Smokeless tobacco: Never Vaping Use Vaping status: Never Used Substance and Sexual Activity Alcohol use: Not Currently Drug use: Not Currently Social Drivers of Health Financial Resource Strain: Patient Unable To Answer (07/13/2024) Overall Financial Resource Strain (CARDIA) Difficulty of Paying Living Expenses: Patient unable to answer Transportation Needs: Patient Unable To Answer (07/13/2024) PRAPARE - Transportation Lack of Transportation (Medical): Patient unable to answer Lack of Transportation (Non-Medical): Patient unable to answer Physical Activity: Patient Unable To Answer (07/13/2024) Exercise Vital Sign Days of Exercise per Week: Patient unable to answer Minutes of Exercise per Session: Patient unable to answer Stress: Patient Unable To Answer (07/13/2024) [place] [employer] - Occupational Stress Questionnaire Feeling of Stress : Patient unable to answer Social Connections: Patient Unable To Answer (07/13/2024) Social Connection and Isolation Panel [NHANES] Frequency of Communication with Friends and Family: Patient unable to answer Frequency of Social Gatherings with Friends and Family: Patient unable to answer Attends [employer] Services: Patient unable to answer Active Member of Clubs or Organizations: Patient unable to answer Attends Club or Organization Meetings: Patient unable to answer Marital Status: Patient unable to answer Housing Stability: Patient Unable To Answer (07/13/2024) Housing Stability Vital Sign Unable to Pay for Housing in the Last Year: Patient unable to answer Homeless in the Last Year: Patient unable to answer MEDs: Previous Medications Medication Sig acetaminophen (TYLENOL) 500 MG tablet Take 1 (one) tablet (500 mg total) by mouth every 6 (six) hours as needed for pain . aluminum-magnesium hydroxide-simethicone (MAALOX PLUS) 200-200-20 mg/5 mL Susp Take 30 mL by mouth 4 (four) times a day before meals and nightly . amLODIPine (NORVASC) 2.5 MG tablet Take 1 (one) tablet (2.5 mg total) by mouth daily . atorvastatin (LIPITOR) 10 MG tablet Take 1 (one) tablet (10 mg total) by mouth every night at bedtime . benztropine (COGENTIN) 1 MG tablet Take 1 (one) tablet (1 mg total) by mouth 2 (two) times a day . carbidopa-levodopa (SINEMET) 25-100 mg per tablet Take 2 (two) tablets by mouth 3 (three) times a day . conjugated estrogens (Premarin) vaginal cream Insert 0.5 (one-half) g into the vagina twice weekly . diclofenac sodium 1% (VOLTAREN) 1 % Gel Apply 4 (four) g topically 4 (four) times a day Apply to Both Knees, R hip . docusate sodium (COLACE) 100 MG capsule Take 1 (one) capsule (100 mg total) by mouth 2 (two) times a day . empagliflozin 25 mg Tab Take 1 (one) tablet (25 mg total) by mouth daily . estradioL (ESTRACE) 0.01 % (0.1 mg/gram) vaginal cream Insert 2 (two) g into the vagina daily . fluoride, sodium, (DENTA 5000 PLUS DENT) Use to brush teeth once a day as directed . glipiZIDE (GLUCOTROL) 5 MG tablet Take 1 (one) tablet (5 mg total) by mouth 2 (two) times a day before meals . Januvia 100 mg tablet levothyroxine (SYNTHROID, LEVOTHROID) 75 MCG tablet Take 1 (one) tablet (75 mcg total) by mouth every morning At 6 AM . melatonin 3 mg Tab Take 1 (one) tablet (3 mg total) by mouth nightly . metFORMIN (GLUCOPHAGE-XR) 500 MG 24 hr tablet Take 1 (one) tablet (500 mg total) by mouth 2 (two) times a day . mirtazapine (REMERON NIKHIL-TAB) 30 MG disintegrating tablet Dissolve 1 (one) tablet (30 mg total) on top of tongue nightly . zoxfmaja-bhs-sqbzxwc fumarate 15 mg iron Tab Take 1 tablet by mouth every morning . MULTIVITAMIN ORAL Take (more content not included)... Normal [facility] LIPASEon 07-19-2024 Lipase [Catalytic activity/Vol] 56 U/L Normal 15-[address] [facility] Comment on above: Performed By: #### [id number] #### LAB [address] [place] [address] David Mcclain M.D. [id number] POC GLUCOSE - [facility] 025 Glucose [Mass/Vol] 124 mg/dL High 65- [facility] Comment on above: Performed By: #### 4 6935 #### LAB [address], [place] [address] David Mcclain M.D. [id number] Glucose [Mass/Vol] 125 mg/dL High 65-99 [facility] Comment on above: Performed By: #### 4 6925 #### LAB [address] [id number] David Mcclain M.D. [id number] PT/INRon 07-19-2024 INR Coag (PPP) [Relative time] 1.0 {INR} Normal 0.8-1.[address] [facility] Comment on above: Order Comment: Chantel saunders the induction phase of oral anticoagulation, the INR may not reflect the anticoagulation status of the patient. Therapeutic ranges for INR's are:Most clinical situations: INR 2.0-3.0Mechanical Prosthetic Valve: INR 2.5-3.5Critical: INR >5.0 Performed By: #### 4 6987 #### LAB [address] [address] Davdi Mcclain M.D. [id number] PT Coag (PPP) [Time] 13.2 s Normal 11.8-14.3 [facility] Comment on above: Order Comment: Chantel saunders the induction phase of oral anticoagulation, the INR may not reflect the anticoagulation status of the patient. Therapeutic ranges for INR's are:Most clinical situations: INR 2.0-3.0Mechanical Prosthetic Valve: INR 2.5-3.5Critical: INR >5.0 Performed By: #### 4 [id number] #### LAB [address] [address] David Mcclain M.D. [id number] T4, FREEon 07-19-2024 Free T4 [Mass/Vol] 1.6 ng/dL Normal 0.7-1.7 [facility] Comment on above: Performed By: #### 4 6582 #### LAB [address] [place] [address] David Mcclain M.D. [id number] TROPONINon 07-19-2024 BASELINE TROPONIN T NG/L 18 ng/L Off scale high <=[address] [facility] Comment on above: Performed By: #### 4 6919 #### LAB [address] [address] David Mcclain M.D. [id number] TROPONIN T INTERPRETATION Possible acute cardiac injury. Normal [facility] Comment on above: Performed By: #### 4 [id number] #### [facility] LAB [address] [address] David Mcclain M.D. [id number] TSHon 07-19-2024 TSH Qn 3.18 m[IU]/L Normal 0.27-4.[address] [facility] Comment on above: Performed By: #### 4 [id number] #### LAB [address] [address] David Mcclain M.D. [id number] URINALYSISon 07-19-2024 BACTERIA, URINE Many Abnormal None Seen [facility] Comment on above: Order Comment: Micro scopic examination is performed on all urinalysis samples and only positive findings are reported. The test for blood on the chemical analytic portion of urinalysis may also be positive due to hemoglobinuria and myoglobinuria and if red blood cells are present they are quantified by microscopic examination. Performed By: #### 4 [id number] #### LAB [address] [address] David Mcclain M.D. [id number] BILIRUBIN, URINE Negative Normal Negative [facility] Comment on above: Order Comment: Micro scopic examination is performed on all urinalysis samples and only positive findings are reported. The test for blood on the chemical analytic portion of urinalysis may also be positive due to hemoglobinuria and myoglobinuria and if red blood cells are present they are quantified by microscopic examination. Performed By: #### 4 [id number] #### LAB [address] [address] David Mcclain M.D. [id number] BLOOD, URINE Negative Normal Negative [facility] Comment on above: Order Comment: Micro scopic examination is performed on all urinalysis samples and only positive findings are reported. The test for blood on the chemical analytic portion of urinalysis may also be positive due to hemoglobinuria and myoglobinuria and if red blood cells are present they are quantified by microscopic examination. Performed By: #### 4 [id number] #### LAB [address] [address] David Mcclain M.D. [id number] Clarity (U) Cloudy Abnormal Clear [facility] Comment on above: Order Comment: Micro scopic examination is performed on all urinalysis samples and only positive findings are reported. The test for blood on the chemical analytic portion of urinalysis may also be positive due to hemoglobinuria and myoglobinuria and if red blood cells are present they are quantified by microscopic examination. Performed By: #### 4 [id number] #### LAB [address] [address] David Mcclain M.D. [id number] Color (U) Yellow Normal Colorless, Yellow [facility] Comment on above: Order Comment: Micro scopic examination is performed on all urinalysis samples and only positive findings are reported. The test for blood on the chemical analytic portion of urinalysis may also be positive due to hemoglobinuria and myoglobinuria and if red blood cells are present they are quantified by microscopic examination. Performed By: #### 4 [id number] #### LAB [address] [place] [address] David Mcclain M.D. [id number] Glucose Ql (U) >=500 Abnormal Negative, >=[address] [facility] Comment on above: Order Comment: Micro scopic examination is performed on all urinalysis samples and only positive findings are reported. The test for blood on the chemical analytic portion of urinalysis may also be positive due to hemoglobinuria and myoglobinuria and if red blood cells are present they are quantified by microscopic examination. Performed By: #### 4 [id number] #### LAB [address] [place] [address] David Mcclain M.D. [id number] Ketones Ql (U) Trace Abnormal Negative [facility] Comment on above: Order Comment: Micro scopic examination is performed on all urinalysis samples and only positive findings are reported. The test for blood on the chemical analytic portion of urinalysis may also be positive due to hemoglobinuria and myoglobinuria and if red blood cells are present they are quantified by microscopic examination. Performed By: #### 4 [id number] #### LAB [address] [place] [address] David Mcclain M.D. [id number] Leukocyte esterase Test strip Ql (U) Small Abnormal Negative [facility] Comment on above: Order Comment: Micro scopic examination is performed on all urinalysis samples and only positive findings are reported. The test for blood on the chemical analytic portion of urinalysis may also be positive due to hemoglobinuria and myoglobinuria and if red blood cells are present they are quantified by microscopic examination. Performed By: #### 4 [id number] #### LAB [address] [address] David Mcclain M.D. [id number] MUCUS, URINE Rare Normal None Seen, Rare [facility] Comment on above: Order Comment: Micro scopic examination is performed on all urinalysis samples and only positive findings are reported. The test for blood on the chemical analytic portion of urinalysis may also be positive due to hemoglobinuria and myoglobinuria and if red blood cells are present they are quantified by microscopic examination. Performed By: #### 4 [id number] #### LAB [address] [place] [address] David Mcclain M.D. [id number] NITRITE, URINE Negative Normal Negative [facility] Comment on above: Order Comment: Micro scopic examination is performed on all urinalysis samples and only positive findings are reported. The test for blood on the chemical analytic portion of urinalysis may also be positive due to hemoglobinuria and myoglobinuria and if red blood cells are present they are quantified by microscopic examination. Performed By: #### 4 [id number] #### LAB [address] [address] David Mcclain M.D. [id number] pH (U) 6.5 [pH] Normal 5.0-7.[address] [facility] Comment on above: Order Comment: Micro scopic examination is performed on all urinalysis samples and only positive findings are reported. The test for blood on the chemical analytic portion of urinalysis may also be positive due to hemoglobinuria and myoglobinuria and if red blood cells are present they are quantified by microscopic examination. Performed By: #### 4 [id number] #### LAB [address] [address] David Mcclain M.D. [id number] PROTEIN, URINE Negative Normal Negative [facility] Comment on above: Order Comment: Micro scopic examination is performed on all urinalysis samples and only positive findings are reported. The test for blood on the chemical analytic portion of urinalysis may also be positive due to hemoglobinuria and myoglobinuria and if red blood cells are present they are quantified by microscopic examination. Performed By: #### 4 [id number] #### LAB [address] [address] David Mcclain M.D. [id number] Specific gravity (U) [Rel density] 1.028 High 1.005-1.[address] [facility] Comment on above: Order Comment: Micro scopic examination is performed on all urinalysis samples and only positive findings are reported. The test for blood on the chemical analytic portion of urinalysis may also be positive due to hemoglobinuria and myoglobinuria and if red blood cells are present they are quantified by microscopic examination. Performed By: #### 4 [id number] #### [facility] [address] [address] David Mcclain M.D. [id number] SQUAMOUS EPITHELIAL 8 /hpf High 0-[address] [facility] Comment on above: Order Comment: Micro scopic examination is performed on all urinalysis samples and only positive findings are reported. The test for blood on the chemical analytic portion of urinalysis may also be positive due to hemoglobinuria and myoglobinuria and if red blood cells are present they are quantified by microscopic examination. Performed By: #### 4 [id number] #### LAB [address] [address] David Mcclain M.D. [id number] UROBILINOGEN, URINE <2.0 Normal <2.[address] [facility] Comment on above: Order Comment: Micro scopic examination is performed on all urinalysis samples and only positive findings are reported. The test for blood on the chemical analytic portion of urinalysis may also be positive due to hemoglobinuria and myoglobinuria and if red blood cells are present they are quantified by microscopic examination. Performed By: #### 4 [id number] #### LAB [address] [address] David Mcclain M.D. [id number] WBC LM.HPF (Urine sed) [#/Area] 14 /[HPF] High 0-[address] [facility] Comment on above: Order Comment: Micro scopic examination is performed on all urinalysis samples and only positive findings are reported. The test for blood on the chemical analytic portion of urinalysis may also be positive due to hemoglobinuria and myoglobinuria and if red blood cells are present they are quantified by microscopic examination. Performed By: #### 4 [id number] #### LAB [address] [place], [place] [address] David Mcclain M.D. [id number] XR CHEST PA/APon 07-19-2024 XR CHEST PA/AP EXAMINATION: XR CHEST PA/AP 07/19/2024 7:36 am HISTORY: ORDERING SYSTEM PROVIDED HISTORY: Chest Pain, TECHNOLOGIST PROVIDED HISTORY: Injury/Trauma Reason for exam: fall Cancer History: u Surgery, RadiationHistory: u Encounter Type: Initial Mechanism of injury: . ORDERING SYSTEM PROVIDED DIAGNOSIS CODES: FINDINGS: The lungs are clear. There is no focal lung consolidation, pleural effusion or pneumothorax. Pulmonary vasculature is within normal limits. The cardiomediastinal silhouette is borderline enlarged. IMPRESSION: 1. No acute cardiopulmonary disease. Workstation ID: [id number] Dictated by: GELY GALLEGOS on FriJul 19, 2024 7:52:01 AM EST Transcribed by: GELY GALLEGOS on FriJul 19, 2024 7:52:01 AM EST Finalized by: GELY GALLEGOS on FriJul 19, 2024 7:52:01 AM EST Normal [facility] Comment on above: Order Comment: Injur y/Trauma or Illness?:Injury/Trauma How long have you had these symptoms (acute/chronic)?:Acute Reason for exam?:fall History of cancer?:u Surgeries, chemotherapy, or radiation?:u Type of Exam?:Initial Mechanism of injury?:. XR KNEE RIGHT 2 VIEWS (STAND TALIA)on 07-19-2024 XR KNEE RIGHT 2 VIEWS (STANDARD) EXAMINATION: XR KNEE RIGHT 2 VIEWS (STANDARD) 07/19/2024 7:36 am HISTORY: ORDERING SYSTEM PROVIDED HISTORY: pain, TECHNOLOGIST PROVIDED HISTORY: Injury/Trauma Reason for exam: pain Cancer History: u Surgery, RadiationHistory: u Encounter Type: Initial Mechanism of injury: n ORDERING SYSTEM PROVIDED DIAGNOSIS CODES: COMPARISON: December 04, 2023. FINDINGS: Alignment is normal. No fracture is seen. There are no significant arthritic changes. IMPRESSION: No significant findings. Workstation ID: [id number] Dictated by: MICKI HOROWITZ on FriJul 19, 2024 8:28:53 AM EST Transcribed by: MICKI HOROWITZ on FriJul 19, 2024 8:28:53 AM EST Finalized by: MICKI HOROWITZ on FriJul 19, 2024 8:28:53 AM EST [facility] Comment on above: Order Comment: Injur y/Trauma or Illness?:Injury/Trauma How long have you had these symptoms (acute/chronic)?:Acute Reason for exam?:pain History of cancer?:u Surgeries, chemotherapy, or radiation?:u Type of Exam?:Initial Mechanism of injury?:n XR PELVIS 1 VIEW (STANDARD)o n 07-19-2024 XR PELVIS 1 VIEW (STANDARD) EXAMINATION: XR PELVIS 1 VIEW (STANDARD) 07/19/2024 7:36 am HISTORY: ORDERING SYSTEM PROVIDED HISTORY: trauma, TECHNOLOGIST PROVIDED HISTORY: Injury/Trauma Reason for exam: trauma Cancer History: u Surgery, RadiationHistory: u Encounter Type: Initial Mechanism of injury: . ORDERING SYSTEM PROVIDED DIAGNOSIS CODES: COMPARISON: July 14, 2024. FINDINGS: Alignment is normal. No fracture is seen. There are no significant degenerative changes of the hips or sacroiliac joints. IMPRESSION: No significant findings. Workstation ID: [id number] Dictated by: MICKI HOROWITZ on FriJul 19, 2024 8:28:44 AM EST Transcribed by: MICKI HOROWITZ on FriJul 19, 2024 8:28:44 AM EST Finalized by: MICKI HOROWITZ on FriJul 19, 2024 8:28:44 AM EST [facility] Comment on above: Order Comment: Injur y/Trauma or Illness?:Injury/TraumaHow long have you had these symptoms (acute/chronic)?:AcuteReason for exam?:traumaHistory of cancer?:uSurgeries, chemotherapy, or radiation?:uType of Exam?:InitialMechanism of injury?:. CT CERVICAL SPINE WITHOUT CO NTRASTon 07-14-2024 CT CERVICAL SPINE WITHOUT CONTRAST EXAMINATION: CT CERVICAL SPINE WITHOUT CONTRAST HISTORY: ORDERING SYSTEM PROVIDED HISTORY: Fall, history of dementia, no LOC, right-sided forehead hematoma, poor historian, TECHNOLOGIST PROVIDED HISTORY: Injury/Trauma Reason for exam: Fall, history of dementia, no LOC, right-sided forehead hematoma, poor historian Encounter Type: Initial Mechanism of injury: Fall, history of dementia, no LOC, right-sided forehead hematoma, poor historian ORDERING SYSTEM PROVIDED DIAGNOSIS CODES: COMPARISON: None TECHNIQUE: CT cervical spine without IV contrast. Coronal and sagittal reformations were performed. Dose reduction techniques were achieved by using automated exposure control and/or adjustment of mA and/or kV according to patient size and/or use of iterative reconstruction technique. FINDINGS: The cervical vertebral bodies are normal in height, without evidence of fracture or collapse. There is no evidence of intrinsic lesion. Disc space narrowing is moderate at C5-6. The remainder of the cervical intervertebral discs are normal in height. There is no evidence of significant cervical disc bulge or protrusion. There is mild focal straightening of the spine at C5-C6. Alignment is otherwise physiologic. The cervical bony canal is normal in dimensions. The neural foramina are patent bilaterally in the facet joints are within normal limits bilaterally throughout the cervical segment. IMPRESSION: There is no evidence of acute cervical spine trauma. There is no evidence of fracture. Moderate C5-6 disc degeneration. Workstation ID: [id number] Dictated by: TI CISSE on FriJul 14, 2024 5:20:31 PM EST Transcribed by: TI CISSE on FriJul 14, 2024 5:20:31 PM EST Finalized by: TI CISSE on FriJul 14, 2024 5:20:31 PM EST Normal [facility] Comment on above: Order Comment: Injur y/Trauma or Illness?:Injury/TraumaHow long have you had these symptoms (acute/chronic)?:AcuteReason for exam?:Fall, history of dementia, no LOC, right-sided forehead hematoma, poor historianType of Exam?:InitialMechanism of injury?:Fall, history of dementia, no LOC, right-sided forehead hematoma, poor historian CT HEAD OR BRAIN WITHOUT CON TRASTon 07-14-2024 CT HEAD OR BRAIN WITHOUT CONTRAST EXAMINATION: CT head without intravenous contrast. HISTORY: Fall. History of dementia. No loss of consciousness. Right forehead hematoma.. COMPARISON FILMS: 01/06/2024. TECHNIQUE: Axial images from the skull base to vertex without intravenous contrast. Dose reduction techniques were achieved by using automated exposure control and/or adjustment of mA and/or kV according to patient size and/or use of iterative reconstruction technique. FINDINGS: There is a focal right frontal hematoma without underlying skull fracture, very similar in appearance to the study of 01/06/2024. The ventricles, cisterns and parenchyma are within normal limits for age. There is no mass effect, shift, hemorrhage, extraaxial collection, abnormal high density lesion or ventriculomegaly. The crouch/white distinction is normal. The orbits and contents and paranasal sinuses are normal. There is no skull fracture. The mastoid air cells are normal. CONCLUSION: There is no significant interval change since 01/06/2024. There is no evidence of acute intracranial process. There is no mass effect shift, hemorrhage or extra-axial collection. Workstation ID: [id number] Dictated by: TI CISSE on FriJul 14, 2024 5:17:12 PM EST Transcribed by: TI CISSE on FriJul 14, 2024 5:17:12 PM EST Finalized by: TI CISSE on FriJul 14, 2024 5:17:12 PM EST Normal [facility] Comment on above: Order Comment: Injur y/Trauma or Illness?:Injury/Trauma How long have you had these symptoms (acute/chronic)?:Acute Reason for exam?:fall History of cancer?:u Surgeries, chemotherapy, or radiation?:u Type of Exam?:Initial Mechanism of injury?:. ED Prov Noteon 07-14-2024 ED Prov Note [facility] EMERGENCY [facility]PARTMENT ATTENDING NOTE: NAME: Shaji Esquivel CSN: [id number] 63 y.o. PCP: Zara Evans DO History: Chief Complaint: Fall HPI: The history was obtained from the patient and detention. Shaji is a 63 y.o. female who presents with a chief complaint of Fall. Patient is a 63-year-old female not any blood thinners history of type 2 diabetes not insulin-dependent, hyperlipidemia hypertension prior history of subarachnoid hemorrhage back in 2023 history of dementia with Parkinson, presents to the emergency department per nursing staff at the residential home, after having a fall onto her right side. Patient bent over to pick some item up from the floor. Hit the right side of her head. Did not lose consciousness. Poor historian cannot relate any further history. She is smiling does not appear to be in distress however. Patient has had frequent falls as well as some bruising on her knees from prior falls. Does not have any new weakness numbness in extremities. PMHx: Past Medical History: Diagnosis Date Diabetes (HCC) Disease of thyroid gland High cholesterol Hypertension SAH (subarachnoid hemorrhage) (HCC) 12/04/2023 PMSx: Past Surgical History: Procedure Laterality Date XR LUMBAR PUNCTURE (DIAGNOSTIC) WITH GAIT ANALYSIS 04/17/2022 XR LUMBAR PUNCTURE (DIAGNOSTIC) WITH GAIT ANALYSIS 04/17/2022 [facility]. Hx: History reviewed. No pertinent family history. SOC. Hx: Social History Socioeconomic History Marital status: Single Tobacco Use Smoking status: Never Smokeless tobacco: Never Vaping Use Vaping status: Never Used Substance and Sexual Activity Alcohol use: Not Currently Drug use: Not Currently Social Drivers of Health Financial Resource Strain: Patient Unable To Answer (07/13/2024) Overall Financial Resource Strain (CARDIA) Difficulty of Paying Living Expenses: Patient unable to answer Transportation Needs: Patient Unable To Answer (07/13/2024) PRAPARE - Transportation Lack of Transportation (Medical): Patient unable to answer Lack of Transportation (Non-Medical): Patient unable to answer Physical Activity: Patient Unable To Answer (07/13/2024) Exercise Vital Sign Days of Exercise per Week: Patient unable to answer Minutes of Exercise per Session: Patient unable to answer Stress: Patient Unable To Answer (07/13/2024) [place] [employer] - Occupational Stress Questionnaire Feeling of Stress : Patient unable to answer Social Connections: Patient Unable To Answer (07/13/2024) Social Connection and Isolation Panel [NHANES] Frequency of Communication with Friends and Family: Patient unable to answer Frequency of Social Gatherings with Friends and Family: Patient unable to answer Attends [employer] Services: Patient unable to answer Active Member of Clubs or Organizations: Patient unable to answer Attends Club or Organization Meetings: Patient unable to answer Marital Status: Patient unable to answer Housing Stability: Patient Unable To Answer (07/13/2024) Housing Stability Vital Sign Unable to Pay for Housing in the Last Year: Patient unable to answer Homeless in the Last Year: Patient unable to answer MEDs: Previous Medications Medication Sig acetaminophen (TYLENOL) 500 MG tablet Take 1 (one) tablet (500 mg total) by mouth every 6 (six) hours as needed for pain . aluminum-magnesium hydroxide-simethicone (MAALOX PLUS) 200-200-20 mg/5 mL Susp Take 30 mL by mouth 4 (four) times a day before meals and nightly . amLODIPine (NORVASC) 2.5 MG tablet Take 1 (one) tablet (2.5 mg total) by mouth daily . atorvastatin (LIPITOR) 10 MG tablet Take 1 (one) tablet (10 mg total) by mouth every night at bedtime . benztropine (COGENTIN) 1 MG tablet Take 1 (one) tablet (1 mg total) by mouth 2 (two) times a day . carbidopa-levodopa (SINEMET) 25-100 mg per tablet Take 2 (two) tablets by mouth 3 (three) times a day . conjugated estrogens (Premarin) vaginal cream Insert 0.5 (one-half) g into the vagina twice weekly . diclofenac sodium 1% (VOLTAREN) 1 % Gel Apply 4 (four) g topically 4 (four) times a day Apply to Both Knees, R hip . docusate sodium (COLACE) 100 MG capsule Take 1 (one) capsule (100 mg total) by mouth 2 (two) times a day . empagliflozin 25 mg Tab Take 1 (one) tablet (25 mg total) by mouth daily . estradioL (ESTRACE) 0.01 % (0.1 mg/gram) vaginal cream Insert 2 (two) g into the vagina daily . fluoride, sodium, (DENTA 5000 PLUS DENT) Use to brush teeth once a day as directed . glipiZIDE (GLUCOTROL) 5 MG tablet Take 1 (one) tablet (5 mg total) by mouth 2 (two) times a day before meals . Januvia 100 mg tablet levothyroxine (SYNTHROID, LEVOTHROID) 75 MCG tablet Take 1 (one) tablet (75 mcg total) by mouth every morning At 6 AM . melatonin 3 mg Tab Take 1 (one) tablet (3 mg total) by mouth nightly . metFORMIN (GLUCOPHAGE-XR) 500 MG 24 hr tablet Take 1 (one) tablet (500 mg (more content not included)... Normal [facility] XR PELVIS 1 VIEW (STANDARD)o n 07-14-2024 XR PELVIS 1 VIEW (STANDARD) EXAMINATION: XR PELVIS 1 VIEW (STANDARD) 07/14/2024 4:53 pm HISTORY: ORDERING SYSTEM PROVIDED HISTORY: Fall, history of dementia, no LOC, right-sided forehead hematoma, poor historian, TECHNOLOGIST PROVIDED HISTORY: Illness/Other Reason for exam: Fall, history of dementia, no LOC, right-sided forehead hematoma, poor historian Cancer History: u Surgery, RadiationHistory: u Encounter Type: Initial Additional signs and symptoms: . ORDERING SYSTEM PROVIDED DIAGNOSIS CODES: COMPARISON: None FINDINGS: No pelvic or proximal femoral fracture is identified. No dislocation. There is mild degenerative narrowing of both hip joints. Arterial calcification is noted. Soft tissues are otherwise unremarkable. IMPRESSION: No fracture is identified. Workstation ID: [id number] Dictated by: ANTWAN HSU on FriJul 14, 2024 5:45:52 PM EST Transcribed by: ANTWAN HSU on FriJul 14, 2024 5:45:52 PM EST Finalized by: ANTWAN HSU on FriJul 14, 2024 5:45:52 PM EST Normal [facility] Comment on above: Order Comment: Injur y/Trauma or Illness?:Illness/OtherHow long have you had these symptoms (acute/chronic)?:AcuteReason for exam?:Fall, history of dementia, no LOC, right-sided forehead hematoma, poor historianHistory of cancer?:uSurgeries, chemotherapy, or radiation?:uType of Exam?:InitialAdditional signs and symptoms?:. No Panel Informationon 07-09 Radiology Study observation (narrative) [facility] Work Phone: XR HIP RIGHT WITH PELVIS WHE N PERFORMED 2 OR 3 VIEWSon 07-09-2024 XR HIP RIGHT WITH PELVIS WHEN PERFORMED 2 OR 3 VIEWS Interpreted By: Alexys Moran, STUDY: XR HIP RIGHT WITH PELVIS WHEN PERFORMED 2 OR 3 VIEWS; ; 07/09/2024 12:08 pm INDICATION: Signs/Symptoms:pain after fall. COMPARISON: 12/13/2016 ACCESSION NUMBER(S): [id number] ORDERING CLINICIAN: MILES HE FINDINGS: Right hip, three views There is no acute fracture dislocation. There is no malalignment. No significant degenerative changes seen IMPRESSION: No acute fracture seen in the right hip. If there is persistent clinical concern CT can be performed for further evaluation MACRO: None Signed by: Alexys Moran 07/09/2024 12:14 PM Dictation workstation: [id number] [facility] XR Hip Viewson 07-09-2024 No acute fracture se en in the right hip. If there is persistent clinical concern CT can be performed for further evaluation MACRO: None Signed by: Alexys Moran 07/09/2024 12:14 PM Dictation workstation: [id number] MMODAL Interpreted By: Alexys Combs, STUDY: XR HIP RIGHT WITH PELVIS WHEN PERFORMED 2 OR 3 VIEWS; ; 07/09/2024 12:08 pm INDICATION: Signs/Symptoms:pain after fall. COMPARISON: 12/13/2016 ACCESSION NUMBER(S): [id number] ORDERING CLINICIAN: MILES HE FINDINGS: Right hip, three views There is no acute fracture dislocation. There is no malalignment. No significant degenerative changes seen [facility] Alexys Moran MD - 07/09/2024 Interpreted By: Alexys Moran STUDY: XR HIP RIGHT WITH PELVIS WHEN PERFORMED 2 OR 3 VIEWS; ; 07/09/2024 12:08 pm INDICATION: Signs/Symptoms:pain after fall. COMPARISON: 12/13/2016 ACCESSION NUMBER(S): [id number] ORDERING CLINICIAN: MILES HE FINDINGS: Right hip, three views There is no acute fracture dislocation. There is no malalignment. No significant degenerative changes seen IMPRESSION: No acute fracture seen in the right hip. If there is persistent clinical concern CT can be performed for further evaluation MACRO: None Signed by: Alexys Moran 07/09/2024 12:14 PM Dictation workstation: [id number] [facility] Work Phone: [facility] Work Phone: XR KNEE RIGHT 1-2 VIEWSon XR KNEE RIGHT 1-2 VIEWS Interpreted By: Alexys Moran, STUDY: XR KNEE RIGHT 1-2 VIEWS; ; 07/09/2024 12:08 pm INDICATION: Signs/Symptoms:pain after fall. COMPARISON: 01/29/2020 ACCESSION NUMBER(S): [id number] ORDERING CLINICIAN: MILES HE FINDINGS: Right knee, four views There is no evidence of a fracture. There is no dislocation. There is no effusion. Minimal osteophytosis present in the patella IMPRESSION: No acute abnormality in the right knee MACRO: None Signed by: Alexys Moran 07/09/2024 12:15 PM Dictation workstation: [id number] [facility] XR Knee - right 1 or 2 Views on 07-09-2024 No acute abnormality in the right knee MACRO: None Signed by: Alexys Moran 07/09/2024 12:15 PM Dictation workstation: [id number] MMODAL Interpreted By: Alexys Combs, STUDY: XR KNEE RIGHT 1-2 VIEWS; ; 07/09/2024 12:08 pm INDICATION: Signs/Symptoms:pain after fall. COMPARISON: 01/29/2020 ACCESSION NUMBER(S): [id number] ORDERING CLINICIAN: MILES HE FINDINGS: Right knee, four views There is no evidence of a fracture. There is no dislocation. There is no effusion. Minimal osteophytosis present in the patella [facility] Alexys Moran MD - 07/09/2024 Interpreted By: Alexys Moran, STUDY: XR KNEE RIGHT 1-2 VIEWS; ; 07/09/2024 12:08 pm INDICATION: Signs/Symptoms:pain after fall. COMPARISON: 01/29/2020 ACCESSION NUMBER(S): [id number] ORDERING CLINICIAN: MILES HE FINDINGS: Right knee, four views There is no evidence of a fracture. There is no dislocation. There is no effusion. Minimal osteophytosis present in the patella IMPRESSION: No acute abnormality in the right knee MACRO: None Signed by: Alexys Moran 07/09/2024 12:15 PM Dictation workstation: [id number] [facility] Work Phone: XR Knee - right 1 or 2 Views Ordered By: Alexys Moran on 07-09-2024 [facility] Work Phone: Comprehensive metabolic 2000 panelon 06-28-2024 Albumin BCP dye [Mass/Vol] 4.5 g/dL Normal 3.4-5.0 [facility] Comment on above: Performed By: #### 2 4323-8 #### ALEKSANDR MEANS ([id number]) [facility] ([facility]) [address] [place] [address] ALP [Catalytic activity/Vol] 54 U/L Normal 33-136 [facility] Comment on above: Performed By: #### 2 4323-8 #### ALEKSANDR MEANS ([id number]) [facility] ([facility]) [address] [place] [id number] ALT With P-5'-P [Catalytic activity/Vol] 16 U/L Normal 7-45 [facility] Comment on above: Result Comment: Haylee ents treated with Sulfasalazine may generate falsely decreased results for ALT. Performed By: #### 2 4323-8 #### ALEKSANDR MEANS ([id number]) [facility] ([facility]) [address] [place] [address] Anion gap [Moles/Vol] 17 mmol/L Normal 10-20 [facility] Comment on above: Performed By: #### 2 4323-8 #### ALEKSANDR MEANS ([id number]) [facility] ([facility]) [address] [place] [address] AST With P-5'-P [Catalytic activity/Vol] 17 U/L Normal 9-39 [facility] Comment on above: Performed By: #### 2 4323-8 #### ALEKSANDR MEANS ([id number]) [facility] ([facility]) [address] [place] [address] Bilirubin [Mass/Vol] 0.3 mg/dL Normal 0.0-1.[address] [facility] Comment on above: Performed By: #### 2 4323-8 #### ALEKSANDR MEANS ([id number]) [facility] ([facility]) [address] [place] [address] Calcium [Mass/Vol] 9.7 mg/dL Normal 8.6-10.3 [facility] Comment on above: Performed By: #### 2 4323-8 #### ALEKSANDR MEANS ([id number]) [facility] ([facility]) [address] [place] [address] Chloride [Moles/Vol] 105 mmol/L Normal 98-[address] [facility] Comment on above: Performed By: #### 2 4323-8 #### ALEKSANDR MEANS ([id number]) [facility] ([facility]) [address] [place] [address] CO2 [Moles/Vol] 26 mmol/L Normal 21-32 [facility] Comment on above: Performed By: #### 2 4323-8 #### ALEKSANDR MEANS ([id number]) [facility] ([facility]) [address] [place] [address] [id number] Creatinine [Mass/Vol] 0.81 mg/dL Normal 0.50-1.05 [facility] Comment on above: Performed By: #### 2 4323-8 #### ALEKSANDR MEANS ([id number]) [facility] ([facility]) [address] [place] [address] 39106 Glomerular filtration rate/1.73 sq M.predicted 82 mL/min/1.73m*2 Normal >60 [facility] Comment on above: Result Comment: Calc ulations of estimated GFR are performed using the 2020 CKD-EPI Study Refit equation without the race variable for the IDMS-Traceable creatinine methods. https://jasn.asnjournals.org/content/early//ASN.2433944 988 Performed By: #### 2 4323-8 #### ALEKSANDR MEANS ([id number]) [facility] ([facility]) [address] [place] [address] 56995 Glucose [Mass/Vol] 157 mg/dL High 74-99 [facility] Comment on above: Performed By: #### 2 4323-8 #### ALEKSANDR MEANS ([id number]) [facility] ([facility]) [address] [place] [address] 78066 Potassium [Moles/Vol] 4.7 mmol/L Normal 3.5-5.3 [facility] Comment on above: Performed By: #### 2 4323-8 #### ALEKSANDR MEANS ([id number]) [facility] ([facility]) [address] [place] [address] 50178 Protein [Mass/Vol] 7.1 g/dL Normal 6.4-8.2 [facility] Comment on above: Performed By: #### 2 4323-8 #### ALEKSANDR MEANS ([id number]) [facility] ([facility]) [address] [place] [address] 40225 Sodium [Moles/Vol] 143 mmol/L Normal 136-145 [facility] Comment on above: Performed By: #### 2 4323-8 #### ALEKSANDR MEANS ([id number]) [facility] ([facility]) [address] [place] [address] 89677 Urea nitrogen [Mass/Vol] 29 mg/dL High - [facility] Comment on above: Performed By: #### 2 4323-8 #### ALEKSANDR MEANS ([id number]) [facility] ([facility]) [address] [place] [address] 04178 HbA1c (Bld) [Mass fraction]o n 06-28-2024 Average glucose Estimated from glycated hemoglobin (Bld) [Mass/Vol] 171 mg/dL Normal Not Established [facility] Comment on above: Order Comment: Diagn osis of Sspuedco-GmdhijJev-Frhwbweo: < or = 5.6%Increased risk for developing diabetes: 5.7-6.4%Diagnostic of diabetes: > or = 6.5% Performed By: #### 2 4331-1 #### ALEKSANDR MEANS ([id number]) [facility] ([facility]) [address] [place] [address] 24039 Hemoglobin A1c/Hemoglobin.to sharla 06-28-2024 HbA1c (Bld) [Mass fraction] 7.6 % High See comment [facility] Comment on above: Order Comment: Diagn osis of Ececlxkx-TjtsepXho-Lcmblajt: < or = 5.6%Increased risk for developing diabetes: 5.7-6.4%Diagnostic of diabetes: > or = 6.5% Performed By: #### 2 4331-1 #### ALEKSANDR MEANS ([id number]) [facility] ([facility]) [address] [place], [place] [id number] TSH WITH REFLEX TO FREE T4 I F ABNORMALon 06-28-2024 TSH Qn 1.87 m[IU]/L Normal 0.44-3.98 [facility] Comment on above: Order Comment: TSH t esting is performed using different testing methodology at [facility] than at other [facility]. Direct result comparisons should only be made within the same method. Performed By: #### T URIEL #### ALEKSANDR MEANS ([id number]) [facility] ([facility]) [address] [place] [address] Bacteria identifiedon 2024 Bacteria identified Cx Nom (U) Test: Urine Culture Specimen Source: Clean Catch/Voided Specimen Type: Urine Specimen Date: 06/11/2024 153 Result Date: 06/15/2024 135 Result Status: Final result Abnormal: Yes Resulting Lab: [facility] [address] [id number] CULTURE >=100,000 CFU/mL Escherichia coli (Abnormal) SUSCEPTIBILITY Escherichia coli METHOD MICROSCAN --- AMPICILLIN <=8.000 ug/ml Susceptible CEFAZOLIN <=2 ug/ml Susceptible CEFAZOLIN (UNCOMPLICATED UTIS ONLY) <=2 ug/ml Susceptible CIPROFLOXACIN <=0.250 ug/ml Susceptible GENTAMICIN <=2.000 ug/ml Susceptible NITROFURANTOIN <=32 ug/ml Susceptible PIPERACILLIN/TAZOBACTAM <=8.000 ug/ml Susceptible TRIMETHOPRIM/SULFAMETHO XAZOLE <=2/38 ug/ml Susceptible Abnormal [facility] Comment on above: Performed By: #### 6 30-4 ####BATSHEVA Reyes ([id number])[facility] ([facility])[address] [place] [address] Urinalysis microscopic panel Auto Ql (U)on 06-11-2024 Bacteria Auto (Urine sed) [#/Area] 1+ /HPF Abnormal NONE SEEN [facility] Comment on above: Performed By: #### 5 3315-8 ####ALEKSANDR MEANS ([id number])[facility] ([facility])[address] [place] [address] Epithelial cells.squamous Auto (Urine sed) [#/Area] 1-9 (SPARSE) Normal Reference range not established. [facility] Comment on above: Performed By: #### 5 3315-8 ####ALEKSANDR MEANS ([id number])[facility] ([facility])[address] [place] [address] 02580 Mucus Auto (Urine sed) [#/Area] FEW Normal Reference range not established. [facility] Comment on above: Performed By: #### 5 3315-8 ####ALEKSANDR MEANS ([id number])[facility] ([facility])[address] [place] [address] 85700 RBC Auto (Urine sed) [#/Area] 1-2 Normal NONE, 1-2, 3-[address] [facility] Comment on above: Performed By: #### 5 3315-8 ####ALEKSANDR MEANS ([id number])[facility] ([facility])[address] [place] [address] 33463 WBC Auto (Urine sed) [#/Area] 1-5 Normal 1-5, NONE [facility] Comment on above: Performed By: #### 5 5165-8 ####ALEKSANDR MEANS ([id number])[facility] ([facility])[address] [place] [address] 00628 Comprehensive metabolic 2000 panelon 03-12-2024 Albumin BCP dye [Mass/Vol] 4.3 g/dL Normal 3.4-5.0 [facility] Comment on above: Performed By: #### 2 432-8 #### ALEKSANDR MEANS ([id number]) [facility] ([facility]) [address] [place] [address] ALP [Catalytic activity/Vol] 78 U/L Normal 33-136 [facility] Comment on above: Performed By: #### 2 432-8 #### ALEKSANDR MEANS ([id number]) [facility] ([facility]) [address] [place] [address] ALT With P-5'-P [Catalytic activity/Vol] 17 U/L Normal 7-45 [facility] Comment on above: Result Comment: Haylee ents treated with Sulfasalazine may generate falsely decreased results for ALT. Performed By: #### 2 4322-8 #### ALEKSANDR MEANS ([id number]) [facility] ([facility]) [address] [place] [address] Anion gap [Moles/Vol] 14 mmol/L Normal 10-20 [facility] Comment on above: Performed By: #### 2 4322-8 #### ALEKSANDR MEANS ([id number]) [facility] ([facility]) [address] [place] [address] AST With P-5'-P [Catalytic activity/Vol] 18 U/L Normal 9-39 [facility] Comment on above: Performed By: #### 2 432-8 #### ALEKSANDR MEANS ([id number]) [facility] ([facility]) [address] [place] [address] Bilirubin [Mass/Vol] 0.3 mg/dL Normal 0.0-1.[address] [facility] Comment on above: Performed By: #### 2 4322-8 #### ALEKSANDR MEANS ([id number]) [facility] ([facility]) [address] [place] [address] Calcium [Mass/Vol] 9.9 mg/dL Normal 8.6-10.3 [facility] Comment on above: Performed By: #### 2 432-8 #### ALEKSANDR MEANS ([id number]) [facility] ([facility]) [address] [place] [address] Chloride [Moles/Vol] 102 mmol/L Normal 98-[address] [facility] Comment on above: Performed By: #### 2 4323-8 #### ALEKSANDR MEANS ([id number]) [facility] ([facility]) [facility] [place] [address] CO2 [Moles/Vol] 30 mmol/L Normal 21-32 [facility] Comment on above: Performed By: #### 2 4323-8 #### ALEKSANDR MEANS ([id number]) [facility] ([facility]) [address] [place] [address] 36894 Creatinine [Mass/Vol] 0.94 mg/dL Normal 0.50-1.05 [facility] Comment on above: Performed By: #### 2 4323-8 #### ALEKSANDR MEANS ([id number]) [facility] ([facility]) [address] [place] [address] 35201 Glomerular filtration rate/1.73 sq M.predicted 68 mL/min/1.73m*2 Normal >60 [facility] Comment on above: Result Comment: Calc ulations of estimated GFR are performed using the 2020 CKD-EPI Study Refit equation without the race variable for the IDMS-Traceable creatinine methods. https://jasn.asnjournals.org/content/early//ASN.8154987 988 Performed By: #### 2 4323-8 #### ALEKSANDR MEANS ([id number]) [facility] ([facility]) [address] [place] [address] 33913 Glucose [Mass/Vol] 181 mg/dL High 74-99 [facility] Comment on above: Performed By: #### 2 4323-8 #### ALEKSANDR MEANS ([id number]) [facility] ([facility]) [address] [place] [address] 63838 Potassium [Moles/Vol] 4.6 mmol/L Normal 3.5-5.3 [facility] Comment on above: Performed By: #### 2 4323-8 #### ALEKSANDR MEANS ([id number]) [facility] ([facility]) [address] [place] [address] Protein [Mass/Vol] 7.3 g/dL Normal 6.4-8.2 [facility] Comment on above: Performed By: #### 2 4323-8 #### ALEKSANDR MEANS ([id number]) [facility] ([facility]) [address] [place] [address] Sodium [Moles/Vol] 141 mmol/L Normal 136-145 [facility] Comment on above: Performed By: #### 2 4323-8 #### ALEKSANDR MEANS ([id number]) [facility] ([facility]) [address] [place] [address] Urea nitrogen [Mass/Vol] 29 mg/dL High 6-23 [facility] Comment on above: Performed By: #### 2 4323-8 #### ALEKSANDR MEANS ([id number]) [facility] ([facility]) [address] [place] [address] 94741 HbA1c (Bld) [Mass fraction]o n 03-12-2024 Average glucose Estimated from glycated hemoglobin (Bld) [Mass/Vol] 177 mg/dL Normal Not Established [facility] Comment on above: Order Comment: Diagn osis of Diabetes-Adults Non-Diabetic: < or = 5.6% Increased risk for developing diabetes: 5.7-6.4% Diagnostic of diabetes: > or = 6.5% Performed By: #### 4 548-4 #### BATSHEVA Reyes ([id number]) [facility] ([facility]) [address] [place] [address] Hemoglobin A1c/Hemoglobin.to sharla 03-12-2024 HbA1c (Bld) [Mass fraction] 7.8 % High See comment [facility] Comment on above: Order Comment: Diagn osis of Diabetes-Adults Non-Diabetic: < or = 5.6% Increased risk for developing diabetes: 5.7-6.4% Diagnostic of diabetes: > or = 6.5% Performed By: #### 4 548-4 #### BATSHEVA Reyes ([id number]) [facility] ([facility]) [address] [place] [address] TSH WITH REFLEX TO FREE T4 I F ABNORMALon 03-12-2024 TSH Qn 3.58 m[IU]/L Normal 0.44-3.98 [facility] Comment on above: Order Comment: TSH t esting is performed using different testing methodology at [facility] than at other [facility]. Direct result comparisons should only be made within the same method. Performed By: #### T SUZANNES #### BRANDON CLARY ([id number]) [facility] ([facility]) [address] [place] [address] XR WRIST LEFT 2 VIEWSon 01-08 XR WRIST LEFT 2 VIEWS EXAMINATION: XR WRIST LEFT 2 VIEWS 02/03/2024 11:06 am HISTORY: ORDERING SYSTEM PROVIDED HISTORY: pain, TECHNOLOGIST PROVIDED HISTORY: Injury/Trauma Reason for exam: Left wrist pain Cancer History: u Surgery, RadiationHistory: u Encounter Type: Initial Mechanism of injury: Fall ORDERING SYSTEM PROVIDED DIAGNOSIS CODES: R52 Pain COMPARISON: None. FINDINGS: No acute fracture or dislocation. Intact carpal joints. Unremarkable soft tissues. IMPRESSION: No acute osseous abnormality of the left wrist. Workstation ID: [id number] Dictated by: JENI GARCIA on FriFeb 03, 2024 2:11:30 PM EDT Transcribed by: JENI GARCIA on FriFeb 03, 2024 2:11:30 PM EDT Finalized by: JENI GARCIA on FriFeb 03, 2024 2:11:30 PM EDT [facility] Comment on above: Order Comment: Injur y/Trauma or Illness?:Injury/TraumaHow long have you had these symptoms (acute/chronic)?:AcuteReason for exam?:Left wrist painHistory of cancer?:uSurgeries, chemotherapy, or radiation?:uType of Exam?:InitialMechanism of injury?:Fall ECG 12 LeadOrdered By: Roseanne Shell on 01-30-2024 Atrial Rate 89 BPM [facility] Work Phone: P [place] 42 degrees [facility] Work Phone: P Offset 170 ms [facility] Work Phone: P Onset 127 [facility] Work Phone: CT Interval 174 ms [facility] Work Phone: Q Onset 214 ms [facility] Work Phone: QRS Count 14 beats [facility] Work Phone: QRS Duration 82 ms [facility] Work Phone: QT Interval 388 ms [facility] Work Phone: QTC Calculation(Bazett) 472 ms [facility] Work Phone: QTC Fredericia 442 ms [facility] Work Phone: R [place] 26 degrees [facility] Work Phone: T [place] 67 degrees [facility] Work Phone: T Offset 408 ms [facility] Work Phone: Ventricular Rate 89 BPM [facility] Work Phone: [facility] Work Phone: ECG 12 Leadon 01-30-2024 Normal sinus rhythm Normal ECG No previous ECGs available See ED provider note for full interpretation and clinical correlation Confirmed by Roseanne Shell ([id number]) on 01/30/2024 9:08:44 PM MUSE Roseanne Shell PA-C - 01/30/2024 Normal sinus rhythm Normal ECG No previous ECGs available See ED provider note for full interpretation and clinical correlation Confirmed by Roseanne Shell ([id number]) on 01/30/2024 9:08:44 PM [facility] Work Phone: ECG 12-LEADon 01-29-2024 ECG 12-LEAD Ventricular Rate 89 Atrial Rate 89 P-R Interval 174 QRS Duration 82 Q-T Interval 388 QTC Calculation(Bazett) 472 P [place] 42 R [place] 26 T [place] 67 QRS Count 14 Q Onset 214 P Onset 127 P Offset 170 T Offset 408 QTC Fredericia 442 Diagnosis Normal sinus rhythm Normal ECG No previous ECGs available See ED provider note for full interpretation and clinical correlation Confirmed by Roseanne Shell ([id number]) on 01/30/2024 9:08:44 PM Normal [facility] No Panel Informationon 01-28 Radiology Study observation (narrative) [facility] Work Phone: XR FOREARM RIGHT 2 VIEWSon 0 01-29-2024 XR FOREARM RIGHT 2 VIEWS Interpreted By: Pito Kaur, STUDY: XR FOREARM RIGHT 2 VIEWS; ; 01/29/2024 7:57 am INDICATION: Signs/Symptoms:FALL TRAUMA. COMPARISON: November 2023 ACCESSION NUMBER(S): [id number] ORDERING CLINICIAN: DARIN TRUJILLO FINDINGS: No fractures are identified. On the lateral view there is again mild dorsal subluxation of the distal ulna in relation to the distal radius, similar to prior exam. The soft tissues are unremarkable. IMPRESSION: No acute fracture. Persistent dorsal subluxation of the distal ulna in relation to the distal radius; correlate clinically. Signed by: Pito Kaur 01/29/2024 8:33 AM Dictation workstation: [id number] [facility] XR KNEE RIGHT 1-2 VIEWSon XR KNEE RIGHT 1-2 VIEWS Interpreted By: Pito Kaur, STUDY: XR KNEE RIGHT 1-2 VIEWS; ; 01/29/2024 7:57 am INDICATION: Signs/Symptoms:FALL/TRA LAST. COMPARISON: None. ACCESSION NUMBER(S): [id number] ORDERING CLINICIAN: DARIN TRUJILLO FINDINGS: No fractures or destructive lesions are identified. The joint spaces and articular surfaces are maintained. The alignment is anatomic. The soft tissues are unremarkable. IMPRESSION: Normal right knee radiographs. Signed by: Pito Kaur 01/29/2024 8:37 AM Dictation workstation: [id number] [facility] XR Knee - right 1 or 2 Views on 01-29-2024 Normal right knee radiographs. Signed by: Pito Kaur 01/29/2024 8:37 AM Dictation workstation: [id number] [facility] Interpreted By: Pito Kaur, STUDY: XR KNEE RIGHT 1-2 VIEWS; ; 01/29/2024 7:57 am INDICATION: Signs/Symptoms:FALL/TRA LAST. COMPARISON: None. ACCESSION NUMBER(S): [id number] ORDERING CLINICIAN: DARIN TRUJILLO FINDINGS: No fractures or destructive lesions are identified. The joint spaces and articular surfaces are maintained. The alignment is anatomic. The soft tissues are unremarkable. MMODAL Pito Kaur MD - 01/29/2024 Interpreted By: Pito Kaur, STUDY: XR KNEE RIGHT 1-2 VIEWS; ; 01/29/2024 7:57 am INDICATION: Signs/Symptoms:FALL/TRA LAST. COMPARISON: None. ACCESSION NUMBER(S): [id number] ORDERING CLINICIAN: DARIN TRUJILLO FINDINGS: No fractures or destructive lesions are identified. The joint spaces and articular surfaces are maintained. The alignment is anatomic. The soft tissues are unremarkable. IMPRESSION: Normal right knee radiographs. Signed by: Pito Kaur 01/29/2024 8:37 AM Dictation workstation: [id number] [facility] Work Phone: XR Knee - right 1 or 2 Views Ordered By: Pito Kaur on 01-29-2024 [facility] Work Phone: XR Radius and Ulna - right 2 Viewson 01-29-2024 No acute fracture. Persistent dorsal subluxation of the distal ulna in relation to the distal radius; correlate clinically. Signed by: Pito Kaur 01/29/2024 8:33 AM Dictation workstation: [id number] [facility] Interpreted By: Pito Kaur, STUDY: XR FOREARM RIGHT 2 VIEWS; ; 01/29/2024 7:57 am INDICATION: Signs/Symptoms:FALL TRAUMA. COMPARISON: November 2023 ACCESSION NUMBER(S): [id number] ORDERING CLINICIAN: DARIN TRUJILLO FINDINGS: No fractures are identified. On the lateral view there is again mild dorsal subluxation of the distal ulna in relation to the distal radius, similar to prior exam. The soft tissues are unremarkable. MMODAL Pito Kaur MD - 01/29/2024 Interpreted By: Pito Kaur, STUDY: XR FOREARM RIGHT 2 VIEWS; ; 01/29/2024 7:57 am INDICATION: Signs/Symptoms:FALL TRAUMA. COMPARISON: November 2023 ACCESSION NUMBER(S): [id number] ORDERING CLINICIAN: DARIN TRUJILLO FINDINGS: No fractures are identified. On the lateral view there is again mild dorsal subluxation of the distal ulna in relation to the distal radius, similar to prior exam. The soft tissues are unremarkable. IMPRESSION: No acute fracture. Persistent dorsal subluxation of the distal ulna in relation to the distal radius; correlate clinically. Signed by: Pito Kaur 01/29/2024 8:33 AM Dictation workstation: [id number] [facility] Work Phone: [facility] Work Phone: CT HEAD OR BRAIN WITHOUT CON TRASTon 01-06-2024 CT HEAD OR BRAIN WITHOUT CONTRAST EXAM: CT HEAD OR BRAIN WITHOUT CONTRAST01/06/2024 9:59 am TECHNIQUE: Axial CT images were obtained through the brain. Sagittal and coronal reformatted images were obtained. Dose reduction techniques were achieved by using automated exposure control and/or adjustment of mA and/or kV according to patient size and/or use of iterative reconstruction technique. HISTORY: ORDERING SYSTEM PROVIDED HISTORY: Subarachnoid hemorrhage (SAH), TECHNOLOGIST PROVIDED HISTORY: Illness/Other Reason for exam: Fu SAH Encounter Type: Subsequent/Follow-up Additional signs and symptoms: na ORDERING SYSTEM PROVIDED DIAGNOSIS CODES: I60.9 SAH (subarachnoid hemorrhage) ([facility]) COMPARISON: CT brain: 12/05/2023 FINDINGS: Intracranial Bleed: No evidence for acute intracranial bleed. Intracranial Mass: No evidence for mass lesion. No mass effect or midline shift. Extra-axial spaces: The ventricles are diffusely dilated due to mild generalized atrophy. White/Laguna Matter: No acute cortical infarct. There is butu-oo-frhsnuzi chronic low attenuation in the white matter both cerebral hemispheres. The laguna-white distinction over the convexities is well preserved. Skull/Scalp: No evidence for skull fracture or lesion. There is mild right pre frontal and supraorbital soft tissue swelling which is improved. Orbits and sinuses: The orbits appear unremarkable. The frontal sinus is hypoplastic. There is mild mucosal thickening in some of the ethmoid air cells. The mastoid air cells and middle ear cavities are clear. __ IMPRESSION: 1. Interval resolution of a small right anterior temporal subarachnoid hemorrhage seen previously. 2. There is no intracranial hemorrhage or mass lesion. 3. There is mild atrophy and zzyo-nr-krqivqpo chronic small vessel white matter ischemic disease. 4. Mild right pre frontal and supraorbital soft tissue swelling is improved. Workstation ID: [id number] Dictated by: JEFF MILLER on FriJan 07, 2024 12:05:25 PM EDT Transcribed by: JEFF MILLER on FriJan 07, 2024 12:05:25 PM EDT Finalized by: JEFF MILLER on FriJan 07, 2024 12:05:[address] [facility] Comment on above: Order Comment: Compl ete in 4-6 weeks, before neurosurgery follow up. Injury/Trauma or Illness?:Illness/Other How long have you had these symptoms (acute/chronic)?:Acute Reason for exam?:Fu SAH Type of Exam?:Subsequent/Follow-up Additional signs and symptoms?:na XR WRIST RIGHT 2 VIEWSon XR WRIST RIGHT 2 VIEWS EXAMINATION: XR WRIST RIGHT 2 VIEWS 12/24/2023 9:44 am HISTORY: ORDERING SYSTEM PROVIDED HISTORY: pain, TECHNOLOGIST PROVIDED HISTORY: Illness/Other Reason for exam: pain Cancer History: u Surgery, RadiationHistory: u Encounter Type: Subsequent/Follow-up Additional signs and symptoms: . ORDERING SYSTEM PROVIDED DIAGNOSIS CODES: R52 Pain COMPARISON: Right wrist series December 04, 2023. TECHNIQUE: Three views of the right wrist. FINDINGS: The distal ulna again appears to be dorsally dislocated on the lateral view and is essentially stable from the prior examination. Bones are again diffusely demineralized. No acute fracture is visible. No obvious osseous erosions. IMPRESSION: Stable right wrist with dorsal dislocation of the distal ulna on the lateral view. No acute osseous abnormality is identified. JAR/trn Workstation ID: [id number] Dictated by: AZAEL ANDRADE on FriDec 25, 2023 1:38:08 PM EDT Transcribed by: ZAK HUERTA on FriDec 25, 2023 2:14:11 PM EDT Finalized by: AZAEL ANDRADE on Antonia Dec 25, 2023 3:39:07 PM EDT Normal [facility] Comment on above: Order Comment: Injur y/Trauma or Illness?:Illness/Other How long have you had these symptoms (acute/chronic)?:Acute Reason for exam?:pain History of cancer?:u Surgeries, chemotherapy, or radiation?:u Type of Exam?:Subsequent/Follow-up Additional signs and symptoms?:. BASIC METABOLIC PANELon - Anion gap [Moles/Vol] 15 mmol/L Normal 10-[address] [facility] Comment on above: Order Comment: [facility] has implemented the eGFR calculation approach that does not have a coefficient for race that conforms to the NKF-ASN Task Force Recommendations. Performed By: #### 4 6932 #### [address] [place], [place] [address] David Mcclain M.D. [id number] Calcium [Mass/Vol] 9.0 mg/dL Normal 8.4-10.2 [facility] Comment on above: Order Comment: [facility] has implemented the eGFR calculation approach that does not have a coefficient for race that conforms to the NKF-ASN Task Force Recommendations. Performed By: #### 4 6932 #### [facility] [address] [place] [address] David Mcclain M.D. [id number] Chloride [Moles/Vol] 105 mmol/L Normal 98-108 [facility] Comment on above: Order Comment: [facility] has implemented the eGFR calculation approach that does not have a coefficient for race that conforms to the NKF-ASN Task Force Recommendations. Performed By: #### 4 6932 #### [address] [place] [address] David Mcclain M.D. [id number] Creatinine [Mass/Vol] 0.85 mg/dL Normal 0.60-1.[address] [facility] Comment on above: Order Comment: [facility] has implemented the eGFR calculation approach that does not have a coefficient for race that conforms to the NKF-ASN Task Force Recommendations. Performed By: #### 4 6932 #### [address] [place] [address] David Mcclain M.D. [id number] EGFR 77 mL/min/1.73 m2 Normal >=60 [facility] Comment on above: Order Comment: [facility] Laboratory Services has implemented the eGFR calculation approach that does not have a coefficient for race that conforms to the NKF-ASN Task Force Recommendations. Result Comment: Velasquez mated GFR was calculated using the 2020 CKD-EPI creatinine equation. Performed By: #### 4 6932 #### LAB [address] [address] David Mcclain M.D. [id number] Glucose [Mass/Vol] 168 mg/dL High 65-99 [facility] Comment on above: Order Comment: [facility] Services has implemented the eGFR calculation approach that does not have a coefficient for race that conforms to the NKF-ASN Task Force Recommendations. Performed By: #### 4 6932 #### LAB [address] [address] David Mcclain M.D. [id number] HCO3 (Bld) [Moles/Vol] 25 mmol/L Normal 21-[address] [facility] Comment on above: Order Comment: [facility] Services has implemented the eGFR calculation approach that does not have a coefficient for race that conforms to the NKF-ASN Task Force Recommendations. Performed By: #### 4 6932 #### LAB [address] [address] David Mcclain M.D. [id number] Potassium [Moles/Vol] 4.2 mmol/L Normal 3.5-5.[address] [facility] Comment on above: Order Comment: [facility] Services has implemented the eGFR calculation approach that does not have a coefficient for race that conforms to the NKF-ASN Task Force Recommendations. Performed By: #### 4 6932 #### LAB [address] [address] David Mcclain M.D. [id number] Sodium [Moles/Vol] 141 mmol/L Normal 135-145 [facility] Comment on above: Order Comment: [facility] Services has implemented the eGFR calculation approach that does not have a coefficient for race that conforms to the NKF-ASN Task Force Recommendations. Performed By: #### 4 6932 #### LAB [address] [id number] David Mcclain M.D. [id number] Urea nitrogen [Mass/Vol] 22 mg/dL Normal 8-[address] [facility] Comment on above: Order Comment: [facility] Services has implemented the eGFR calculation approach that does not have a coefficient for race that conforms to the NKF-ASN Task Force Recommendations. Performed By: #### 4 6932 #### LAB [address] [address] David Mcclain M.D. [id number] Urea nitrogen/Creatinine [Mass ratio] 25.9 mg/mg High 10.0-20.[address] [facility] Comment on above: Order Comment: [facility] Services has implemented the eGFR calculation approach that does not have a coefficient for race that conforms to the NKF-ASN Task Force Recommendations. Performed By: #### 4 6932 #### LAB [address] [address] David Mcclain M.D. [id number] CBCon 12-05-2023 AUTO NRBC 0.0 % Normal [facility] Comment on above: Performed By: #### 4 6932 #### LAB [address] [id number] David Mcclain M.D. [id number] AUTO NRBC ABS COUNT 0.00 K/mcL Normal 0.00-0.[address] [facility] Comment on above: Performed By: #### 4 6949 #### LAB [address] [address] David Mcclain M.D. [id number] Erythrocyte distribution width (RBC) [Ratio] 14.8 % Normal 11.6-14.[address] [facility] Comment on above: Performed By: #### 4 6996 #### LAB [address] [address] David Mcclain M.D. [id number] Hematocrit (Bld) [Volume fraction] 34.8 % Low 36.0-46.[address] [facility] Comment on above: Performed By: #### 4 6942 #### LAB [address] [address] David Mcclain M.D. [id number] Hemoglobin (Bld) [Mass/Vol] 10.7 g/dL Low 12.0-16.[address] [facility] Comment on above: Performed By: #### 4 6926 #### MH LAB [address] [address] David Mcclain M.D. [id number] MCH (RBC) [Entitic mass] 27.0 pg Normal 26.0-34.[address] [facility] Comment on above: Performed By: #### 4 3873 #### LAB [address] [address] David Mcclain M.D. [id number] MCV (RBC) [Entitic vol] 87.9 fL Normal 80.0-100.[address] [facility] Comment on above: Performed By: #### 4 8505 #### LAB [address] [address] David Mcclain M.D. [id number] MEAN CORPUSCULAR HEMOGLOBIN CONC 30.7 g/dL Low 31.0-37.[address] [facility] Comment on above: Performed By: #### 4 5979 #### LAB [address] [address] David Mcclain M.D. [id number] Platelet mean volume (Bld) [Entitic vol] 9.3 fL Low 9.4-12.[address] [facility] Comment on above: Performed By: #### 4 0252 #### LAB [address] [address] David Mcclain M.D. [id number] Platelets (Bld) [#/Vol] 312 10*3/uL Normal 150-[address] [facility] Comment on above: Performed By: #### 4 7198 #### MH LAB [address] [place], [place] [address] David Mcclain M.D. [id number] RBC (Bld) [#/Vol] 3.96 10*6/uL Low 4.00-5.[address] [facility] Comment on above: Performed By: #### 4 6932 #### MH LAB [address] [place], [place] [address] David Mcclain M.D. [id number] WBC (Bld) [#/Vol] 7.23 10*3/uL Normal 4.50-11.[address] [facility] Comment on above: Performed By: #### 4 6932 #### LAB [address] [place], [place] [address] David Mcclain M.D. 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 past medical history is as noted history of following concrete I was asked to see her specifically regards to her right wrist which initially was felt to show disruption of the distal radial ulnar joint with dorsal dislocation of the ulna apparently reduction procedures performed in ER and CT obtained which is unremarkable the question whether this was a chronic situation or not however no acute findings are noted on CT and she is in a cock-up wrist splint which seems to fit adequately Is noted past medical history positive hypertension diabetes hyperlipidemia CKD thyroid disease injuries including a right temporal hemorrhage abrasion of the right knee and multiple abrasions and skin tears Examination she is in cock-up wrist splint which seems to fit adequately Plan can be discharged anytime from my standpoint office follow-up in the next 2 weeks AUTHENTICATED BY SACHIN MORALES, ON 12/05/2023 10:14:[address] [facility] CT HEAD OR BRAIN WITHOUT CON TRASTon 12-05-2023 CT HEAD OR BRAIN WITHOUT CONTRAST EXAMINATION: CT HEAD OR BRAIN WITHOUT CONTRAST12/05/2023 7:16 am TECHNIQUE: Routine protocol multiplanar reformatted axial CT acquisition At least one of the following dose reduction techniques was utilized: Iterative reconstruction, and/or Automatic Exposure Control, and/or mA/kV adjustment based on body size. INDICATION: [facility] [id number] Renu Santos, Director for residential provider *[phone] Stephanie Mata, multimedia services coordinator at the home Injury/Trauma or Illness?:Illness/Other How long have you had these symptoms (acute/chronic)?:Acute Reason for exam?:sah f/u I62.9 Intracranial bleed (HCC) COMPARISON: 12/04/[address] FINDINGS: Stable focal anterior right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 narrowing and spurring. ADDITIONAL FINDINGS: No abnormal thickening of the prevertebral soft tissues. IMPRESSION: No cervical vertebral displacement or acute displaced fracture. Straightening of the cervical lordosis and mild degenerative changes noted. MACRO: None. Signed by: Shayna Cole 12/04/2023 10:36 AM Dictation workstation: [id number] [facility] Work Phone: [facility] Work Phone: CT FACIAL BONES WO IV CONTRA STon 12-04-2023 CT FACIAL BONES WO IV CONTRAST Interpreted By: Shayna Cole, STUDY: CT FACIAL BONES WO IV CONTRAST; CT 3D RECONSTRUCTION 12/04/2023 9:56 am; 12/04/2023 10:08 am INDICATION: Signs/Symptoms:Fall with injury to her face; Signs/Symptoms:trauma COMPARISON: 10/07/2022 ACCESSION NUMBER(S): [id number]; [id number] ORDERING CLINICIAN: JASMYN WADE TECHNIQUE: Thin cut axial CT images through the facial bones were obtained and reconstructed in the coronal and sagittal plane. 3D reconstructions were created on an independent workstation and provided for review. FINDINGS: Patient is slightly rotated. No acute displaced facial bone fracture. The orbital ramirez are intact. The globes and orbital contents are intact and symmetric. Dense soft tissue swelling in the medial right frontal scalp and supraorbital region. No dislocation at the temporomandibular joints or displaced mandibular fracture. Mild mucosal thickening/debris in the bilateral sphenoid and right maxillary sinuses. Remaining paranasal sinuses and mastoid air cells are clear. No sinus air-fluid levels. IMPRESSION: Hematoma in the right frontal scalp/supraorbital region. No acute displaced facial bone fracture visualized. Mild right maxillary and bilateral sphenoid sinus mucosal thickening/debris. MACRO: None. Signed by: Shayna Cole 12/04/2023 10:40 AM Dictation workstation: [id number] [facility] CT HEAD WO IV CONTRASTon CT HEAD WO IV CONTRAST Interpreted By: Shayna Cole, STUDY: CT HEAD WO IV CONTRAST; 12/04/2023 9:56 am INDICATION: Signs/Symptoms:Fall with head injury. COMPARISON: 07/19/2023 ACCESSION NUMBER(S): [id number] ORDERING CLINICIAN: JASMYN WADE TECHNIQUE: Unenhanced CT images of the head were obtained. FINDINGS: The ventricles, cisterns and sulci are enlarged, consistent with diffuse volume loss. There are areas of nonspecific white matter hypodensity, which are probably age related or microvascular in nature. These findings are similar to the prior exam. 6 mm rounded hyperdensity in the anterior right temporal region. No significant associated mass effect. no extra-axial fluid collection. No midline shift. No acute displaced calvarial fracture. Dense soft tissue swelling in the right frontal scalp and supraorbital region The visualized paranasal sinuses are clear. IMPRESSION: 6 mm acute hemorrhage in the anterior right temporal region. No significant associated mass effect. Right frontal scalp and supraorbital soft tissue swelling/hematoma. MACRO: Shayna Cole discussed the significance and urgency of this critical finding by telephone with JASMYN WADE on 12/04/2023 at 10:28 am. (-RCF-) Findings: See findings. Signed by: Shayna Cole 12/04/2023 10:30 AM Dictation workstation: [id number] [facility] CT Head WO contraston 2023 6 mm acute hemorrhag e in the anterior right temporal region. No significant associated mass effect. Right frontal scalp and supraorbital soft tissue swelling/hematoma. MACRO: Shayna Cole discussed the significance and urgency of this critical finding by telephone with JASMYN WADE on 12/04/2023 at 10:28 am. (-RCF-) Findings: See findings. Signed by: Shayna Cole 12/04/2023 10:30 AM Dictation workstation: [id number] MMODAL Interpreted By: Shayna Mantilla, STUDY: CT HEAD WO IV CONTRAST; 12/04/2023 9:56 am INDICATION: Signs/Symptoms:Fall with head injury. COMPARISON: 07/19/2023 ACCESSION NUMBER(S): [id number] ORDERING CLINICIAN: JASMYN WADE TECHNIQUE: Unenhanced CT images of the head were obtained. FINDINGS: The ventricles, cisterns and sulci are enlarged, consistent with diffuse volume loss. There are areas of nonspecific white matter hypodensity, which are probably age related or microvascular in nature. These findings are similar to the prior exam. 6 mm rounded hyperdensity in the anterior right temporal region. No significant associated mass effect. no extra-axial fluid collection. No midline shift. No acute displaced calvarial fracture. Dense soft tissue swelling in the right frontal scalp and supraorbital region The visualized paranasal sinuses are clear. MMODAL Shayna Cole MD - 12/04/2023 Interpreted By: Shayna Cole, STUDY: CT HEAD WO IV CONTRAST; 12/04/2023 9:56 am INDICATION: Signs/Symptoms:Fall with head injury. COMPARISON: 07/19/2023 ACCESSION NUMBER(S): [id number] ORDERING CLINICIAN: JASMYN WADE TECHNIQUE: Unenhanced CT images of the head were obtained. FINDINGS: The ventricles, cisterns and sulci are enlarged, consistent with diffuse volume loss. There are areas of nonspecific white matter hypodensity, which are probably age related or microvascular in nature. These findings are similar to the prior exam. 6 mm rounded hyperdensity in the anterior right temporal region. No significant associated mass effect. no extra-axial fluid collection. No midline shift. No acute displaced calvarial fracture. Dense soft tissue swelling in the right frontal scalp and supraorbital region The visualized paranasal sinuses are clear. IMPRESSION: 6 mm acute hemorrhage in the anterior right temporal region. No significant associated mass effect. Right frontal scalp and supraorbital soft tissue swelling/hematoma. MACRO: Shayna Cole discussed the significance and urgency of this critical finding by telephone with JASMYN WADE on 12/04/2023 at 10:28 am. (-RCF-) Findings: See findings. Signed by: Shayna Cole 12/04/2023 10:30 AM Dictation workstation: [id number] [facility] Work Phone: [facility] Work Phone: CT Unspecified body region 3 D post processingon 12-04-2023 Radiology Study observation (narrative) [facility] Work Phone: CT WRIST RIGHT WITHOUT CONTR Yi 12-04-2023 CT WRIST RIGHT WITHOUT CONTRAST EXAMINATION: CT WRIST RIGHT WITHOUT CONTRAST HISTORY: ORDERING SYSTEM PROVIDED HISTORY: ulnocarpal dislocation, TECHNOLOGIST PROVIDED HISTORY: The patient is a 63-year-old female. Injury/Trauma Reason for exam: right wrist pain with injury s/p fall. ulnocarpal dislocation noted on wrist x-ray Encounter Type: Initial Mechanism of injury: fall ORDERING SYSTEM PROVIDED DIAGNOSIS CODES: I62.9 Intracranial bleed (HCC) S00.83XA Contusion of face, initial encounter S62.101A Closed fracture of right wrist, initial encounter COMPARISON: Radiographs from 3:28 p.m. TECHNIQUE: Dose reduction techniques were achieved by using automated exposure control and/or adjustment of mA and/or kV according to patient size and/or use of iterative reconstruction technique. CT images were obtained through the right wrist, with the wrist within a splint above the patient's head, without intravenous contrast, and reformatted in 2 dimensions. FINDINGS: The axial bone images demonstrate the distal radioulnar joint is anatomically aligned. If there is a clinical concern for dynamic instability of the distal radioulnar joint, a dedicated CT protocol to evaluate this could be performed, which would include obtaining images through both wrists simultaneously with the wrists both supinated and pronated. The bone images demonstrate there is anatomic alignment of all of the carpal bones. No fractures or cortical discontinuities are seen within the distal radius, distal ulna, or within any of the carpal bones or metacarpals. The soft tissue images demonstrate no abnormal fluid collections on this noncontrast enhanced study. IMPRESSION: This is a negative CT scan of the right wrist. Specifically, the distal radioulnar joint is anatomically aligned. Workstation ID: [id number] Dictated by: AUSTYN PASTRANA on FriDec 04, 2023 8:07:23 PM EDT Transcribed by: AUSTYN PASTRANA on FriDec 04, 2023 8:07:23 PM EDT Finalized by: AUSTYN PASTRANA on FriDec 04, 2023 8:07:23 PM EDT Normal [facility] Comment on above: Order Comment: Injur y/Trauma or Illness?:Injury/TraumaHow long have you had these symptoms (acute/chronic)?:AcuteReason for exam?:right wrist pain with injury s/p fall. ulnocarpal dislocation noted on wrist x-rayType of Exam?:InitialMechanism of injury?:fall Coagulation surface inducedo n 12-04-2023 aPTT Coag (PPP) [Time] 28 s Normal 27-[address] [facility] Comment on above: Order Comment: The A PTT is no longer used for monitoring Unfractionated Heparin Therapy. For monitoring Heparin Therapy, use the Heparin Assay. Performed By: #### 1 [id number] ####BRANDON CLARY ([id number])[facility] ([facility])[address] [place] [address] Coagulation tissue factor in ducedon 12-04-2023 PT Coag (PPP) [Time] 10.6 s Normal 9.8-12.8 [facility] Comment on above: Performed By: #### 5 [id number] #### ALEKSANDR MEANS ([id number]) [facility] ([facility]) [address] [place] [address] ED Prov Noteon 12-04-2023 ED Prov Note [facility] EMERGENCY DEPARTMENT - Emergency Medicine Attending Note: NAME: Shaji Esquivel 63 y.o. CSN: [id number] PCP: Antwan Maharaj MD History: Chief Complaint: Fall HPI: The history was obtained from the patient. Shaji is a 63 y.o. female who presents with a chief complaint of Fall. Fall 63-year-old female, who suffered mechanical fall on the ground today, and fell forward. She was sent to the outside hospital, where she was noted to have an intracranial bleed. 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 They noted some facial injuries, as well as a possible right wrist fracture at the outside hospital. Patient reports that her pain is improved with pain medication given at the outside hospital. Due to her MRDD, patient is not able to give us a numeric pain scale number, but does states that her pain has gotten better. ROS: Review of Systems Unable to perform ROS: Other (MRDD) Positives and pertinent negatives as per HPI. All other systems were reviewed and are negative. Physical Exam: Patient Vitals for the past 24 hrs: BP Temp Temp src Pulse Resp SpO2 Height Weight 12/04/23 1248 (!) 154/94 99.7 degrees F (37.6 degrees C) Axillary 97 16 97 % 5' 5 68.9 kg (152 lb) Physical Exam Constitutional: General: She is not in acute distress. Appearance: She is ill-appearing (Patient is ill-appearing, but in no acute distress.). She is not diaphoretic. HENT: Head: Normocephalic. Comments: Patient with contusions and hematomas scattered throughout the face. No obvious midface instability. Right Ear: External ear normal. Left Ear: External ear normal. Mouth/Throat: Mouth: Mucous membranes are moist. Pharynx: Oropharynx is clear. Eyes: General: No scleral icterus. Extraocular Movements: Extraocular movements intact. Pupils: Pupils are equal, round, and reactive to light. Neck: Vascular: No JVD. Trachea: No tracheal deviation. Cardiovascular: Rate and Rhythm: Normal rate and regular rhythm. Pulses: Normal pulses. Heart sounds: Normal heart sounds. No murmur heard. No friction rub. No gallop. Pulmonary: Effort: Pulmonary effort is normal. No respiratory distress. Breath sounds: Normal breath sounds. No wheezing or rales. Chest: Chest wall: No tenderness. Abdominal: General: There is no distension. Tenderness: There is no abdominal tenderness. Musculoskeletal: General: No deformity. Comments: Right wrist is in a splint. Skin: General: Skin is warm and dry. Neurological: General: No focal deficit present. Mental Status: She is alert and oriented to person, place, and time. Psychiatric: Mood and Affect: Mood normal. Behavior: Behavior normal. Laboratory & Radiological Imaging (if done): Labs Reviewed - No data to display XR Comparison Import Final Result XR Comparison Import Final Result CT Comparison Import Final Result CT Comparison Import Final Result CT Comparison Import Final Result CT Chest Abdomen Pelvis Without Contrast With T/L Recons (Results Pending) XR Knee Right 2 Views (Standard) (Results Pending) Procedures: Critical Care Performed by: Duc Jaramillo MD Authorized by: Duc Jaramillo MD Total critical care time: 35 minutes Critical care time was exclusive of separately billable procedures and treating other patients. Critical care was necessary to treat or prevent imminent or life-threatening deterioration of the following conditions: trauma. Critical care was time spent personally by me on the following activities: development of treatment plan with patient or surrogate, discussions with consultants, evaluation of patient's response to treatment, examination of patient, obtaining history from patient or surrogate, ordering and performing treatments and interventions, ordering and review of laboratory studies, ordering and review of radiographic studies, pulse oximetry, re-evaluation of patient's condition and review of old charts. ED Course / Medical Decision Makin-year-old female, presenting for evaluation of intracranial hemorrhage as described above. Patient remains stable in transfer, and reports her pain has improved with pain medication. Declines need for any additional pain medication at this time. Trauma surgery is consulted, they are the accepting service. Dr. Estevez is down to evaluate the patient, and after evaluation, would like to place the patient onto their inpatient service in the stepdown unit. Admission orders are placed. We discussed the results of the work up in the emergency department. Patient agreeable to the plan of care, including for admission. I provided verbal discharge instructions regarding the emergency department diagnosis. Prognosis, expected clinical course, and return precautions were reviewed. I answered her questions and re-iterated the importance of returning to the emergency d (more content not included)... Normal [facility] H AND Samuel 12-04-2023 H AND P --- Attestation signed by José Manuel Estevez MD at 12/04/2023 2:30 PM (Updated) TRAUMA/ ACUTE CARE SURGERY ATTENDING NOTE Please link this note as an addendum to the PATTY note with the same day of service. The patient was seen and examined by me, the attending trauma surgeon, on multidisciplinary rounds on the date of service listed above. I have reviewed the PATTY note, labs, studies, and solution consultant notes. I have reviewed and agree with the documented history, exam, and plan of care, with the following additions and corrections: Today: Shaji Esquivel is a 63 y.o. female with hx CKD presenting with right temporal subarachnoid hemorrhage, right wrist dislocation following mechanical fall from standing, negative loss of consciousness. Patient has a history of intellectual disability, Parkinson's disease. On evaluation GCS is 14, she is neurovascularly intact, she is hemodynamically stable. Patient has complaints of chest and abdominal pain, as well as right knee pain with an abrasion, right wrist pain with abrasions to the right hand, facial pain with abrasions throughout her face. She denies spinal TTP. Imaging obtained at the [facility] with the above findings. On physical examination of her right wrist there is pain with any kind of motion, pulses are intact, she has a small puncture wound from which I debrided some rocks. Will give Ancef and Tdap. Will admit the patient to the trauma service, repeat CT head pending neurosurgical evaluation, consult orthopedics. Home medications, therapies, dispo planning. The aforementioned issues are severe. These issues do continue to pose a threat to life or bodily function. Pertinent labs and imaging personally reviewed with evidence of right temporal subarachnoid hemorrhage, right wrist dislocation. Admitted with these risk variables:CKD. Please see assessment and plan for further details. Carmelo Estevez MD, FACS, DABS, DABA Trauma, Acute Care Surgery, Surgical Critical Care, and Neurocritical Care [facility] SURGICAL HISTORY & PHYSICAL/CONSULTATION NOTE ===== Trauma: Admitted with these risk variables: Fall, CKD . Please see assessment and plan for further details. INJURIES: Hemorrhage to right temporal region Right dorsal dislocation at ulnocarpal joint Right knee, right shoulder/wrist abrasion , face, small right hand skin tear ASSESSMENT & PLAN/ACTIVE MEDICAL PROBLEMS: Fall S/p fall on concrete - CTCAP w/ T/L recon pending Hemorrhage to right temporal region S/p fall on concrete CT Head, 6mm acute subarachnoid hemorrhage to right temporal region , no AC/AP use CT max/face (-), CT C (-) - consult n/s for recommendations, repeat head CT in AM - pain control Dorsal Ulnocarpal Joint Dislocation XR right wrist, dorsal dislocation to ulnocarpal joint without fracture seen on XR - reduction per ED, CT right wrist ordered, consult ortho - pain control Right knee abrasion with pain - XR right knee pending Multiple abrasions/skin tears- Local site care, nonadherent Ancef in ED; TDAP updated in Jul Chronic kidney disease Baseline 0.8, was 0.85 on admission INCIDENTAL FINDINGS: N/A CHIEF COMPLAINT: Fall HISTORY OF PRESENT ILLNESS / INJURY (HPI): Ms. Esquivel is a 63 year old female with intellectual disability and a PMH of HTN, diabetes, hyperlipidemia,CKD, thyroid disease who presented to the ED after falling on concrete. She presented to an [facility] for initial evaluation where CT max/face, brain, and c-spine as well as xray of right wrist/forearm was performed. CT brain demonstrated a 6mm acute hemorrhage in the right temporal region. Xray of right wrist showed dorsal dislocation at ulnocarpal joint. [facility] requested transfer for further evaluation and recommendations from trauma and nsx. Upon exam, patient reported diffuse pain throughout her body. She denied thoracic and lumbar pain. Given patients intellectual disability noncon imaging were ordered. Per documentation no AC/AP use at home and no LOC. It was reported from OSH that the patient had a baseline left sided weakness from previous stroke, but I do not appreciate this on exam and her caretakers state this is not accurate. PAST MEDICAL HISTORY (PMH): Past Medical History: Diagnosis Date Diabetes (HCC) Disease of thyroid gland High cholesterol Hypertension Past Surgical History: Procedure Laterality Date XR LUMBAR PUNCTURE (DIAGNOSTIC) WITH GAIT ANALYSIS 04/17/2022 XR LUMBAR PUNCTURE (DIAGNOSTIC) WITH GAIT ANALYSIS 04/17/2022 [facility] Social History Tobacco Use Smoking status: Never Smokeless tobacco: Never Vaping Use Vaping status: Never Used Sub (more content not included)... Normal [facility] No Panel Informationon 12-03 Interpretation and review of laboratory results Normal [facility] Dorsal dislocation a t the ulnocarpal joint versus projection. No fracture identified. MACRO: None. Signed by: Shayna Cole 12/04/2023 10:45 AM Dictation workstation: [id number] [facility]AL Interpreted By: Shayna Mantilla, STUDY: XR FOREARM RIGHT 2 VIEWS; XR WRIST RIGHT 3+ VIEWS; 12/04/2023 9:40 am INDICATION: Signs/Symptoms:Fall with injury. COMPARISON: Forearm films 08/10/2021 ACCESSION NUMBER(S): [id number]; [id number] ORDERING CLINICIAN: JASMYN WADE FINDINGS: 2 portable views of the right radius/ulna and 3 portable views of the right wrist obtained. No acute displaced radial or ulnar fracture. No carpal bone fracture or displacement. Dorsal dislocation of the distal ulna with respect to the carpus versus projection. Intact alignment at the elbow joint. Diffuse soft tissue swelling in the distal forearm and carpus. Subcentimeter density at the level of the distal radius and ulna likely in overlying soft tissues. [facility] MM[facility]AL Shayna Cole MD - 12/04/2023 Interpreted By: Shayna Cole, STUDY: XR FOREARM RIGHT 2 VIEWS; XR WRIST RIGHT 3+ VIEWS; 12/04/2023 9:40 am INDICATION: Signs/Symptoms:Fall with injury. COMPARISON: Forearm films 08/10/2021 ACCESSION NUMBER(S): [id number]; [id number] ORDERING CLINICIAN: JASMYN WADE FINDINGS: 2 portable views of the right radius/ulna and 3 portable views of the right wrist obtained. No acute displaced radial or ulnar fracture. No carpal bone fracture or displacement. Dorsal dislocation of the distal ulna with respect to the carpus versus projection. Intact alignment at the elbow joint. Diffuse soft tissue swelling in the distal forearm and carpus. Subcentimeter density at the level of the distal radius and ulna likely in overlying soft tissues. IMPRESSION: Dorsal dislocation at the ulnocarpal joint versus projection. No fracture identified. MACRO: None. Signed by: Shayna Cole 12/04/2023 10:45 AM Dictation workstation: [id number] [facility] Work Phone: Hematoma in the righ t frontal scalp/supraorbital region. No acute displaced facial bone fracture visualized. Mild right maxillary and bilateral sphenoid sinus mucosal thickening/debris. MACRO: None. Signed by: Shayna Cole 12/04/2023 10:40 AM Dictation workstation: [id number] [facility]AL Interpreted By: Shayna Mantilla, STUDY: CT FACIAL BONES WO IV CONTRAST; CT 3D RECONSTRUCTION 12/04/2023 9:56 am; 12/04/2023 10:08 am INDICATION: Signs/Symptoms:Fall with injury to her face; Signs/Symptoms:trauma COMPARISON: 10/07/2022 ACCESSION NUMBER(S): [id number]; [id number] ORDERING CLINICIAN: JASMYN WADE TECHNIQUE: Thin cut axial CT images through the facial bones were obtained and reconstructed in the coronal and sagittal plane. 3D reconstructions were created on an independent workstation and provided for review. FINDINGS: Patient is slightly rotated. No acute displaced facial bone fracture. The orbital ramirez are intact. The globes and orbital contents are intact and symmetric. Dense soft tissue swelling in the medial right frontal scalp and supraorbital region. No dislocation at the temporomandibular joints or displaced mandibular fracture. Mild mucosal thickening/debris in the bilateral sphenoid and right maxillary sinuses. Remaining paranasal sinuses and mastoid air cells are clear. No sinus air-fluid levels. MMODAL Shayna Cole MD - 12/04/2023 Interpreted By: Shayna Cole, STUDY: CT FACIAL BONES WO IV CONTRAST; CT 3D RECONSTRUCTION 12/04/2023 9:56 am; 12/04/2023 10:08 am INDICATION: Signs/Symptoms:Fall with injury to her face; Signs/Symptoms:trauma COMPARISON: 10/07/2022 ACCESSION NUMBER(S): [id number]; [id number] ORDERING CLINICIAN: JASMYN WADE TECHNIQUE: Thin cut axial CT images through the facial bones were obtained and reconstructed in the coronal and sagittal plane. 3D reconstructions were created on an independent workstation and provided for review. FINDINGS: Patient is slightly rotated. No acute displaced facial bone fracture. The orbital ramirez are intact. The globes and orbital contents are intact and symmetric. Dense soft tissue swelling in the medial right frontal scalp and supraorbital region. No dislocation at the temporomandibular joints or displaced mandibular fracture. Mild mucosal thickening/debris in the bilateral sphenoid and right maxillary sinuses. Remaining paranasal sinuses and mastoid air cells are clear. No sinus air-fluid levels. IMPRESSION: Hematoma in the right frontal scalp/supraorbital region. No acute displaced facial bone fracture visualized. Mild right maxillary and bilateral sphenoid sinus mucosal thickening/debris. MACRO: None. Signed by: Shayna Cole 12/04/2023 10:40 AM Dictation workstation: [id number] [facility] Work Phone: [facility] Work Phone: Radiology Study observation (narrative) [facility] Work Phone: Radiology Study observation (narrative) [facility] Work Phone: No Panel InformationOrdered By: Shayna Cole on 12-04-2023 [facility] Work Phone: POC GLUCOSE - [facility] 024 Glucose [Mass/Vol] 135 mg/dL High 65-99 [facility] Glucose [Mass/Vol] 94 mg/dL Normal 65-99 [facility] PT Coag (PPP) [Time]on 12-03 INR Coag (PPP) [Relative time] 0.9 {INR} 0.9 - 1.1 [facility] INR Coag (PPP) [Relative time] 0.9 Normal 0.9-1.[address] [facility] Comment on above: Performed By: #### 5 902-2 #### BRANDON CLARY ([id number]) [facility] ([facility]) [address] [place] [address] Protime-INRon 12-04-2023 PT Coag (PPP) [Time] 10.6 s [facility] XR FOREARM RIGHT 2 VIEWSon 0 12-04-2023 XR FOREARM RIGHT 2 VIEWS Interpreted By: Shayna Cole, STUDY: XR FOREARM RIGHT 2 VIEWS; XR WRIST RIGHT 3+ VIEWS; 12/04/2023 9:40 am INDICATION: Signs/Symptoms:Fall with injury. COMPARISON: Forearm films 08/10/2021 ACCESSION NUMBER(S): [id number]; [id number] ORDERING CLINICIAN: JASMYN WADE FINDINGS: 2 portable views of the right radius/ulna and 3 portable views of the right wrist obtained. No acute displaced radial or ulnar fracture. No carpal bone fracture or displacement. Dorsal dislocation of the distal ulna with respect to the carpus versus projection. Intact alignment at the elbow joint. Diffuse soft tissue swelling in the distal forearm and carpus. Subcentimeter density at the level of the distal radius and ulna likely in overlying soft tissues. IMPRESSION: Dorsal dislocation at the ulnocarpal joint versus projection. No fracture identified. MACRO: None. Signed by: Shayna Cole 12/04/2023 10:45 AM Dictation workstation: [id number] [facility] XR KNEE RIGHT 2 VIEWS (STAND TALIA)on 12-04-2023 XR KNEE RIGHT 2 VIEWS (STANDARD) EXAMINATION: XR KNEE RIGHT 2 VIEWS (STANDARD) HISTORY: ORDERING SYSTEM PROVIDED HISTORY: Fall acute pain, TECHNOLOGIST PROVIDED HISTORY: Injury/Trauma Reason for exam: fall acute knee pain, brusing and swelling on rt knee with bleeding Cancer History: u Surgery, RadiationHistory: u Encounter Type: Initial Mechanism of injury: Fall ORDERING SYSTEM PROVIDED DIAGNOSIS CODES: I62.9 Intracranial bleed (HCC) S00.83XA Contusion of face, initial encounter S62.101A Closed fracture of right wrist, initial encounter COMPARISON: None FINDINGS: Two views of the right knee. No acute fracture. Joint alignment is anatomic. Joint spaces are preserved. There is a small to moderate knee joint effusion. There is mild diffuse soft tissue swelling most pronounced anteriorly and medially. IMPRESSION: 1. Diffuse soft tissue swelling. 2. Knee joint effusion. 3. Negative for fracture. Workstation ID: [id number] Dictated by: JEFF MILLER on FriDec 04, 2023 2:24:52 PM EDT Transcribed by: JEFF MILLER on FriDec 04, 2023 2:24:52 PM EDT Finalized by: JEFF MILLER on FriDec 04, 2023 2:24:52 PM EDT [facility] Comment on above: Order Comment: Injur y/Trauma or Illness?:Injury/Trauma How long have you had these symptoms (acute/chronic)?:Acute Reason for exam?:fall acute knee pain, brusing and swelling on rt knee with bleeding History of cancer?:u Surgeries, chemotherapy, or radiation?:u Type of Exam?:Initial Mechanism of injury?:Fall XR WRIST RIGHT 2 VIEWSon XR WRIST RIGHT 2 VIEWS EXAMINATION: XR WRIST RIGHT 2 VIEWS EXAM DATE: 12/04/2023 3:05 pm HISTORY: ORDERING SYSTEM PROVIDED HISTORY: Post-reduction, TECHNOLOGIST PROVIDED HISTORY: Illness/Other Reason for exam: post reduction of right wrist Cancer History: u Surgery, RadiationHistory: u Encounter Type: Initial Additional signs and symptoms: . ORDERING SYSTEM PROVIDED DIAGNOSIS CODES: I62.9 Intracranial bleed (HCC) S00.83XA Contusion of face, initial encounter S62.101A Closed fracture of right wrist, initial encounter COMPARISON: Report of outside radiographs dated 12/04/2023 at 9:40 a.m.. TECHNIQUE: AP and lateral views right wrist FINDINGS: There is no acute fracture. There is dorsal dislocation of the ulna at the distal radioulnar joint. Soft tissue swelling at the wrist. IMPRESSION: No acute fracture. The distal ulna is dorsally dislocated on the lateral view, as described on recent prior outside x-ray report. Question a chronic finding. Workstation ID: [id number] Dictated by: LETI GEIGER on FriDec 04, 2023 4:26:36 PM EDT Transcribed by: LETI GEIGER on FriDec 04, 2023 4:26:36 PM EDT Finalized by: LETI GEIGER on FriDec 04, 2023 4:26:36 PM EDT [facility] Comment on above: Order Comment: Injur y/Trauma or Illness?:Illness/OtherHow long have you had these symptoms (acute/chronic)?:AcuteReason for exam?:post reduction of right wristHistory of cancer?:uSurgeries, chemotherapy, or radiation?:uType of Exam?:InitialAdditional signs and symptoms?:. XR WRIST RIGHT 3+ VIEWSon XR WRIST RIGHT 3+ VIEWS Interpreted By: Shayna Cole, STUDY: XR FOREARM RIGHT 2 VIEWS; XR WRIST RIGHT 3+ VIEWS; 12/04/2023 9:40 am INDICATION: Signs/Symptoms:Fall with injury. COMPARISON: Forearm films 08/10/2021 ACCESSION NUMBER(S): [id number]; [id number] ORDERING CLINICIAN: JASMYN WADE FINDINGS: 2 portable views of the right radius/ulna and 3 portable views of the right wrist obtained. No acute displaced radial or ulnar fracture. No carpal bone fracture or displacement. Dorsal dislocation of the distal ulna with respect to the carpus versus projection. Intact alignment at the elbow joint. Diffuse soft tissue swelling in the distal forearm and carpus. Subcentimeter density at the level of the distal radius and ulna likely in overlying soft tissues. IMPRESSION: Dorsal dislocation at the ulnocarpal joint versus projection. No fracture identified. MACRO: None. Signed by: Shyana Cole 12/04/2023 10:45 AM Dictation workstation: [id number] Normal [facility] aPTTon 12-04-2023 aPTT Coag (PPP) [Time] 28 s [facility] aPTT Coag (PPP) [Time]on The APTT is no longe r used for monitoring Unfractionated Heparin Therapy. For monitoring Heparin Therapy, use the Heparin Assay. [facility] Comprehensive metabolic 2000 panelon 10-15-2023 Albumin BCP dye [Mass/Vol] 4.2 g/dL Normal 3.4-5.0 [facility] Comment on above: Performed By: #### 2 4323-8 #### ALEKSANDR MEANS ([id number]) [facility] ([facility]) [address] [place] [address] ALP [Catalytic activity/Vol] 73 U/L Normal 33-136 [facility] Comment on above: Performed By: #### 2 4323-8 #### ALEKSANDR MEANS ([id number]) [facility] ([facility]) [address] [place] [address] ALT With P-5'-P [Catalytic activity/Vol] 12 U/L Normal 7-45 [facility] Comment on above: Result Comment: Haylee ents treated with Sulfasalazine may generate falsely decreased results for ALT. Performed By: #### 2 4323-8 #### ALEKSANDR MEANS ([id number]) [facility] ([facility]) [address] [place] [address] Anion gap [Moles/Vol] 11 mmol/L Normal 10-20 [facility] Comment on above: Performed By: #### 2 4323-8 #### ALEKSANDR MEANS ([id number]) [facility] ([facility]) [address] [place] [address] AST With P-5'-P [Catalytic activity/Vol] 14 U/L Normal 9-39 [facility] Comment on above: Performed By: #### 2 4323-8 #### ALEKSANDR MEANS ([id number]) [facility] ([facility]) [address] [place] [address] Bilirubin [Mass/Vol] 0.4 mg/dL Normal 0.0-1.[address] [facility] Comment on above: Performed By: #### 2 4323-8 #### ALEKSANDR MEANS ([id number]) [facility] ([facility]) [address] [place] [address] Calcium [Mass/Vol] 9.2 mg/dL Normal 8.6-10.3 [facility] Comment on above: Performed By: #### 2 4323-8 #### ALEKSANDR MEANS ([id number]) [facility] ([facility]) [address] [place] [address] Chloride [Moles/Vol] 103 mmol/L Normal 98-[address] [facility] Comment on above: Performed By: #### 2 4323-8 #### ALEKSANDR MEANS ([id number]) [facility] ([facility]) [address] [place] [address] CO2 [Moles/Vol] 30 mmol/L Normal 21-32 [facility] Comment on above: Performed By: #### 2 4323-8 #### AELKSANDR MEANS ([id number]) [facility] ([facility]) [address] [place] [address] Creatinine [Mass/Vol] 0.86 mg/dL Normal 0.50-1.05 [facility] Comment on above: Performed By: #### 2 4323-8 #### ALEKSANDR MEANS ([id number]) [facility] ([facility]) [address] [place] [address] Glomerular filtration rate/1.73 sq M.predicted 76 mL/min/1.73m*2 Normal >60 [facility] Comment on above: Result Comment: Calc ulations of estimated GFR are performed using the 2020 CKD-EPI Study Refit equation without the race variable for the IDMS-Traceable creatinine methods. https://jasn.asnjournals.org/content/early/ASN.5545721 988 Performed By: #### 2 4323-8 #### ALEKSANDR MEANS ([id number]) [facility] ([facility]) [address] [place] [address] Glucose [Mass/Vol] 149 mg/dL High 74-99 [facility] Comment on above: Performed By: #### 2 4323-8 #### ALEKSANDR MEANS ([id number]) [facility] ([facility]) [address] [place] [address] Potassium [Moles/Vol] 4.2 mmol/L Normal 3.5-5.3 [facility] Comment on above: Performed By: #### 2 4323-8 #### ALEKSANDR MEANS ([id number]) [facility] ([facility]) [address] [place] [address] Protein [Mass/Vol] 7.3 g/dL Normal 6.4-8.2 [facility] Comment on above: Performed By: #### 2 4323-8 #### ALEKSANDR MEANS ([id number]) [facility] ([facility]) [address] [place] [address]451 Sodium [Moles/Vol] 140 mmol/L Normal 136-145 [facility] Comment on above: Performed By: #### 2 4323-8 #### ALEKSANDR MEANS ([id number]) [facility] ([facility]) [address] [place] [address] Urea nitrogen [Mass/Vol] 23 mg/dL Normal 6-23 [facility] Comment on above: Performed By: #### 2 4323-8 #### ALEKSANDR MEANS ([id number]) [facility] ([facility]) [address] [place] [address] HbA1c (Bld) [Mass fraction]o n 10-15-2023 Average glucose Estimated from glycated hemoglobin (Bld) [Mass/Vol] 180 mg/dL Normal Not Established [facility] Comment on above: Order Comment: Diagn osis of Diabetes-Adults Non-Diabetic: < or = 5.6% Increased risk for developing diabetes: 5.7-6.4% Diagnostic of diabetes: > or = 6.5% Monitoring of Diabetes Age (y)....................... Therapeutic Goal (%) Adults: >18.........................<7.0 Pediatrics: 13-18...................<7.5 Pediatrics: 7-12....................<8.0 Pediatrics: 0-6..................... 7.5-8.5 [place] [employer]. Diabetes Care 33(S1)Jun 2009 Performed By: #### 4 548-4 #### BRANDON CLARY ([id number]) [facility] ([facility]) [address] [place] [id number] Hemoglobin A1c/Hemoglobin.to sharla 10-15-2023 HbA1c (Bld) [Mass fraction] 7.9 % High see below [facility] Comment on above: Order Comment: Diagn osis of Diabetes-Adults Non-Diabetic: < or = 5.6% Increased risk for developing diabetes: 5.7-6.4% Diagnostic of diabetes: > or = 6.5% Monitoring of Diabetes Age (y)....................... Therapeutic Goal (%) Adults: >18.........................<7.0 Pediatrics: 13-18...................<7.5 Pediatrics: 7-12....................<8.0 Pediatrics: 0-6..................... 7.5-8.5 [place] [employer]. Diabetes Care 33(S1), Jun 2009 Performed By: #### 4 548-4 #### ALEKSANDR MEANS ([id number]) [facility] ([facility]) [facility] [place] [address] Lipid 1996 panelon 4 Cholesterol [Mass/Vol] 133 mg/dL Normal 0-199 [facility] Comment on above: Result Comment: Age Desirable Borderline High High 0-19 Y 0 - 169 170 - 199 >/= 200 20-24 Y 0 - 189 190 - 224 >/= 225 >24 Y 0 - 199 200 - 239 >/= 240 All ranges are based on fasting samples. Specific therapeutic targets will vary based on patient-specific cardiac risk. Pediatric guidelines reference:Pediatrics 2011, 128(S5).Adult guidelines reference: NCEP ATPIII Guidelines,NELDA 2001, 258:2486-97 Venipuncture immediately after or during the administration of Metamizole may lead to falsely low results. Testing should be performed immediately prior to Metamizole dosing. Performed By: #### 2 4331-1 #### ALEKSANDR MEANS ([id number]) [facility] ([facility]) [address] [place] [address] Cholesterol in HDL [Mass/Vol] 49.0 mg/dL Normal [facility] Comment on above: Result Comment: Age Very Low Low Normal High 0-19 Y < 35 < 40 40-45 ---- 20-24 Y ---- < 40 >45 ---- >24 Y ---- < 40 40-60 >60 Performed By: #### 2 4331-1 #### ALEKSANDR MEANS ([id number]) [facility] ([facility]) [facility] [place] [address] Cholesterol in LDL [Mass/Vol] 48 mg/dL Normal <=99 [facility] Comment on above: Result Comment: Near Borderline AGE Desirable Optimal High High Very High 0-19 Y 0 - 109 --- 110-129 >/= 130 ---- 20-24 Y 0 - 119 --- 120-159 >/= 160 ---- >24 Y 0 - 99 100-129 130-159 160-189 >/=190 Performed By: #### 2 4331-1 #### ALEKSANDR MEANS ([id number]) [facility] ([facility]) [facility] [place] [address] Cholesterol in VLDL [Mass/Vol] 36 mg/dL Normal 0-40 [facility] Comment on above: Performed By: #### 2 4331-1 #### ALEKSANDR MEANS ([id number]) [facility] ([facility]) [address] [place] [address] 61493 CHOLESTEROL/HDL RATIO 2.7 Normal [facility] Comment on above: Result Comment: Ref Values Desirable < 3.4 High Risk > 5.0 Performed By: #### 2 4331-1 #### ALEKSANDR MEANS ([id number]) [facility] ([facility]) [address] [place] [address] 61959 NON HDL CHOLESTEROL 84 mg/dL Normal 0-149 [facility] Comment on above: Result Comment: Age Desirable Borderline High High Very High 0-19 Y 0 - 119 120 - 144 >/= 145 >/= 160 20-24 Y 0 - 149 150 - 189 >/= 190 ---- >24 Y 30 mg/dL above LDL Cholesterol goal Performed By: #### 2 4331-1 #### ALEKSANDR MEANS ([id number]) [facility] ([facility]) [address] [place] [address]32 Triglyceride [Mass/Vol] 179 mg/dL High 0-149 [facility] Comment on above: Result Comment: Age Desirable Borderline High High Very High 0 D-90 D 19 - 174 ---- ---- ---- 91 D- 9 Y 0 - 74 75 - 99 >/= 100 ---- 10-19 Y 0 - 89 90 - 129 >/= 130 ---- 20-24 Y 0 - 114 115 - 149 >/= 150 ---- >24 Y 0 - 149 150 - 199 200- 499 >/= 500 Venipuncture immediately after or during the administration of Metamizole may lead to falsely low results. Testing should be performed immediately prior to Metamizole dosing. Performed By: #### 2 4331-1 #### ALEKSANDR MEANS ([id number]) [facility] ([facility]) [address] [place] [id number] M. tuberculosis stim IFN-g a nd spot count panel (Bld)on 10-15-2023 Gamma interferon negative control spot count (Bld) [#] Passed Normal [facility] Comment on above: Performed By: #### 7 4281-7 #### QUEST CHANTL ([id number]) [address] [facility] [address] [place], [place] M. tuberculosis stim IFN-g CFP10 Ag spot count (Bld) [#] 0 Normal [facility] Comment on above: Performed By: #### 7 4281-7 #### QUEST CHANTL ([id number]) [address] [facility] [address] [facility] [place] M. tuberculosis stim IFN-g ESAT-6 Ag spot count (Bld) [#] 0 Normal [facility] Comment on above: Performed By: #### 7 4281-7 #### QUEST CHANTL ([id number]) [address] [facility] [address] [place] M. tuberculosis stim IFN-g Ql (Bld) [Interp] Negative Normal Negative [facility] Comment on above: Result Comment: A negative test result does not exclude the possibility of exposure to or infection with Mycobacterium tuberculosis (M. tuberculosis). Patients with recent exposure to TB infected individuals exhibiting a negative T-SPOT.TB result should be considered for retesting within 6 weeks or if other relevant clinical symptoms indicate. Results from T-SPOT.TB testing must be used in conjunction with each individual's epidemiological history, current medical status, and results of other diagnostic evaluations. The T-SPOT.TB test is qualitative and results are reported as positive, borderline, or negative, given that the test controls perform as expected. In line with the Centers for Disease Control and Prevention's 2010 recommendation to report quantitative measurements alongside the qualitative result, the laboratory provides spot counts for informational purposes only. The T-SPOT.TB test should not be interpreted as a quantitative test. Performed By: #### 7 4281-7 #### QUEST CHANTL ([id number]) [address] [facility] [address] [place] Mitogen stimulated gamma interferon positive control spot count (Bld) [#] Passed Normal [facility] Comment on above: Result Comment: For additional information, please refer to http://education.SimpleSite/faq/UXL405 (This link is being provided for informational/ educational purposes only.) Performed By: #### 7 4281-7 #### QUEST CARLOS ([id number]) [address] [facility] [address] [place], [place] TSH WITH REFLEX TO FREE T4 I F ABNORMALon 10-15-2023 TSH Qn 2.83 m[IU]/L Normal 0.44-3.98 [facility] Comment on above: Order Comment: TSH t esting is performed using different testing methodology at [facility] than [facility]. Direct result comparisons should only be made within the same method. Performed By: #### T URIEL #### BRANDON CLARY ([id number]) [facility] ([facility]) [address] [place] [address] CT CERVICAL SPINE WO IV CONT [facility] 07-19-2023 CT CERVICAL SPINE WO IV CONTRAST Interpreted By: Serena Mcghee, STUDY: CT HEAD WO IV CONTRAST; CT CERVICAL SPINE WO IV CONTRAST; 07/19/2023 8:43 pm INDICATION: Signs/Symptoms:Fall. COMPARISON: CT head dated 11/06/2022; CT of the cervical spine dated 11/06/2022. ACCESSION NUMBER(S): [id number]; [id number] ORDERING CLINICIAN: OSIEL VERGARA TECHNIQUE: Noncontrast axial CT scan of head was performed, with coronal and sagittal reformats provided. The images were reviewed in bone, brain, blood and soft tissue windows. Axial CT images of the cervical spine are obtained. Axial, coronal and sagittal reconstructions are provided for review. FINDINGS: CT HEAD: No hyperdense intracranial hemorrhage is evident. There is no mass effect or midline shift. Laguna-white differentiation is intact without evidence of CT apparent transcortical infarct. Patchy and confluence areas of diminished attenuation are present in the periventricular and subcortical white matter of bilateral cerebral hemispheres, nonspecific findings favored to represent sequela of microvascular disease. Mild age-related brain parenchymal volume loss is present without abnormal ventricular dilatation. Basal cisterns are patent. No extra-axial fluid collections are present. Soft tissues do not demonstrate any acute abnormality. Calvarium is unremarkable in appearance. Mastoid air cells and middle ear cavities are well aerated without evidence of fluid fluid levels. Visualized paranasal sinuses are unremarkable in appearance. CT C-SPINE: Cervical vertebral alignment is maintained without significant spondylolisthesis. Cervical vertebral body heights are preserved without evidence of compression fractures. Posterior elements of the cervical spine do not demonstrate any evidence of acute trauma. No abnormal intra spinous distance widening or displaced transverse or spinous process fractures are identified. Craniocervical junction is intact. Facet joints are preserved. Mild intervertebral disc height loss is present at C5-C6. No high-grade spinal canal stenosis is evident, although mild spinal canal narrowing is suspected at the level of C5-C6 due to disc osteophyte complex. No significant bony neural foraminal stenosis is present. Prevertebral and paraspinal soft tissues do not demonstrate any acute abnormalities. IMPRESSION: CT HEAD: 1. No evidence of hemorrhage, depressed skull fracture, or other acute intracranial trauma. 2. Patchy and confluence areas of diminished attenuation are present in the periventricular and subcortical white matter of bilateral cerebral hemispheres, nonspecific findings favored to represent sequela of microvascular disease. CT C-SPINE: 1. No evidence of acute trauma to the cervical spine. MACRO: None Signed by: Serena Mcghee 07/19/2023 9:01 PM Dictation workstation: [id number] [facility] CT HEAD WO IV CONTRASTon CT HEAD WO IV CONTRAST Interpreted By: Serena Mcghee, STUDY: CT HEAD WO IV CONTRAST; CT CERVICAL SPINE WO IV CONTRAST; 07/19/2023 8:43 pm INDICATION: Signs/Symptoms:Fall. COMPARISON: CT head dated 11/06/2022; CT of the cervical spine dated 11/06/2022. ACCESSION NUMBER(S): [id number]; [id number] ORDERING CLINICIAN: OSIEL VERGARA TECHNIQUE: Noncontrast axial CT scan of head was performed, with coronal and sagittal reformats provided. The images were reviewed in bone, brain, blood and soft tissue windows. Axial CT images of the cervical spine are obtained. Axial, coronal and sagittal reconstructions are provided for review. FINDINGS: CT HEAD: No hyperdense intracranial hemorrhage is evident. There is no mass effect or midline shift. Laguna-white differentiation is intact without evidence of CT apparent transcortical infarct. Patchy and confluence areas of diminished attenuation are present in the periventricular and subcortical white matter of bilateral cerebral hemispheres, nonspecific findings favored to represent sequela of microvascular disease. Mild age-related brain parenchymal volume loss is present without abnormal ventricular dilatation. Basal cisterns are patent. No extra-axial fluid collections are present. Soft tissues do not demonstrate any acute abnormality. Calvarium is unremarkable in appearance. Mastoid air cells and middle ear cavities are well aerated without evidence of fluid fluid levels. Visualized paranasal sinuses are unremarkable in appearance. CT C-SPINE: Cervical vertebral alignment is maintained without significant spondylolisthesis. Cervical vertebral body heights are preserved without evidence of compression fractures. Posterior elements of the cervical spine do not demonstrate any evidence of acute trauma. No abnormal intra spinous distance widening or displaced transverse or spinous process fractures are identified. Craniocervical junction is intact. Facet joints are preserved. Mild intervertebral disc height loss is present at C5-C6. No high-grade spinal canal stenosis is evident, although mild spinal canal narrowing is suspected at the level of C5-C6 due to disc osteophyte complex. No significant bony neural foraminal stenosis is present. Prevertebral and paraspinal soft tissues do not demonstrate any acute abnormalities. IMPRESSION: CT HEAD: 1. No evidence of hemorrhage, depressed skull fracture, or other acute intracranial trauma. 2. Patchy and confluence areas of diminished attenuation are present in the periventricular and subcortical white matter of bilateral cerebral hemispheres, nonspecific findings favored to represent sequela of microvascular disease. CT C-SPINE: 1. No evidence of acute trauma to the cervical spine. MACRO: None Signed by: Serena Mcghee 07/19/2023 9:01 PM Dictation workstation: [id number] [facility] MG Breast - bilateral Screen ingon 07-11-2023 No mammographic evidence of malignancy. BI-RADS CATEGORY: BI-RADS Category: 1 Negative. Recommendation: Routine Screening Mammogram in 1 Year. Recommended Date: 1 Year. Laterality: Bilateral. Signed by: Bala Zheng 07/11/2023 8:26 AM Dictation workstation: [id number] [facility] Interpreted By: Bala Zheng, STUDY: ; 07/10/2023 10:08 am ACCESSION NUMBER(S): [id number] ORDERING CLINICIAN: RAFA JACINTO INDICATION: Screening. COMPARISON: Comparison is made to prior digital mammograms dated 06/19/2021 FINDINGS: CC and MLO 2D digital mammographic images of the bilateral breasts were obtained. The study is limited by difficulty with patient positioning. There are areas of scattered fibroglandular tissue. No discrete mass or focal asymmetry is identified. No suspicious microcalcifications or foci of architectural distortion are seen. There has been no significant change. This study was interpreted with CAD. [facility] Bala Zheng MD - 07/11/2023 Interpreted By: Bala Zheng, STUDY: ; 07/10/2023 10:08 am ACCESSION NUMBER(S): [id number] ORDERING CLINICIAN: RAFA JACINTO INDICATION: Screening. COMPARISON: Comparison is made to prior digital mammograms dated 06/19/2021 FINDINGS: CC and MLO 2D digital mammographic images of the bilateral breasts were obtained. The study is limited by difficulty with patient positioning. There are areas of scattered fibroglandular tissue. No discrete mass or focal asymmetry is identified. No suspicious microcalcifications or foci of architectural distortion are seen. There has been no significant change. This study was interpreted with CAD. IMPRESSION: No mammographic evidence of malignancy. BI-RADS CATEGORY: BI-RADS Category: 1 Negative. Recommendation: Routine Screening Mammogram in 1 Year. Recommended Date: 1 Year. Laterality: Bilateral. Signed by: Bala Zheng 07/11/2023 8:26 AM Dictation workstation: [id number] [facility] Work Phone: MG Breast - bilateral Screen ingOrdered By: Bala Zheng on 07-11-2023 [facility] Work Phone: MG Breast - bilateral Screen ingon 07-10-2023 Radiology Study observation (narrative) [facility] Work Phone: PT Progress Noteon 3 PT Progress Note Therapy Diagnosis Assessed Frequent falls (V15.88) (R29.6) Impaired transfers (781.99) (Z74.09) Poor balance (781.99) (R26.89) Plan Goals: Goals set and discussed today. In 2 weeks, pt will be IND and compliant with HEP for participation throughout POC. , goal partially met Balance: In 4 weeks, pt will perform TUG SBA in 40 sec or less without AD for dec risk of falls., goal met Flexibility: In 4 weeks, pt will demo ability to ext B knees equally for gait., goal partially met Transfers: In 4 weeks, pt will demo STS transfer CGA with min VCs for IND at home., goal partially met , In 4 weeks, pt will be able to follow all directions for objective measures for ability to strengthen BLE., goal partially met Planned interventions include: education/instruction, gait training, home program, manual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 family at bedside as allowed, yellow falls risk band, focus rounding attention, locate patient in area of high visibility, wheelchair, bed, or personal alarm, bedside commode, elevated toilet seat and pharmacy consult for medication concerns. Low: age 65 or older. Moderate: fall in last 6 months or fear of falling. Insurance Insurance reviewed Visit number: 5 Insurance: Evaluating therapist: Bibi Villela PT, DPT PT dx: Z74.09, R26.89 Beginnin2022 Endin2022 Subjective Patient reports:. Pt arrives reporting R foot pain. Caregiver states her sinemet was increased Friday and pt has had a lot more energy/ been more animated. Precautions: Fall Risk: moderate Objective Ortho Difficulty determining MMT d/t cognitive limitations therefore not tested at recheck TIght HS B R>L with pt unable to straighten B knees TU.49 sec CGA > 23.58 sec CGA Gait: shuffling gait, no trunk rotation, no arm swing > longer step lengths, improved balance STS Transfers: Max VCs, mod A x1, unable to place LEs and UEs properly IND > mod VCs, variable assist level from CGA-mod A. Outcome Measures Timed Up and Go Test score: 46.49 sec > 23.58 sec Treatment Time in clinic started at 10:01 am Time in clinic ended at 10:43 am Total time in clinic is 43 minutes. Total timed code time is 38 minutes. Therapeutic exercise (36986): timed minutes 30, units 2 . SEE NEURO Recheck, review HEP, review POC SciFit 3' (X) Standing hip abd on foam x10 ea Standing hip flex on foam x10 ea Standing hip ext on foam x10 ea (X) Stand HS curl on foam x10 ea March on foam x10 ea Side steps outisde // bars x2 laps March amb outisde // bars 2 laps Bkwd amb outisde // bars 2 laps (X) Squat on foam x10 Fwd and bkwd negotiation in w/c 10' x2 (N) Seated march x10 ea (X) Seated hip add x10 Seated hip abd blue TB x10 (X) Seated HS stretch with BLE on chair x2 min (X) LAQ with ball x10 ea L. Neuromuscular Re-education (69235): timed minutes 8, units 1 . Hand taps all directions x2' e (more content not included)... Normal [facility] imo.im Therapy Re-eval Noteon 12-31 Therapy Re-eval Note Therapy Diagnosis Assessed 1. Frequent falls (V15.88) (R29.6) 2. Impaired transfers (781.99) (Z74.09) 3. Poor balance (781.99) (R26.89) Plan Goals: Goals set and discussed today. In 2 weeks, pt will be IND and compliant with HEP for participation throughout POC. , goal partially met Balance: In 4 weeks, pt will perform TUG SBA in 40 sec or less without AD for dec risk of falls., goal met Flexibility: In 4 weeks, pt will demo ability to ext B knees equally for gait., goal partially met Transfers: In 4 weeks, pt will demo STS transfer CGA with min VCs for IND at home., goal partially met , In 4 weeks, pt will be able to follow all directions for objective measures for ability to strengthen BLE., goal partially met Planned interventions include: education/instruction, gait training, home program, manual therapy, neuromuscular re-education, self care/home management, therapeutic activities and therapeutic exercises. Frequency and duration: 1 time(s) a week, for 4 weeks, for 4 visits. Potential to achieve rehab goals is good Progress ther ex and neuro re-ed for LE strength and balance to improve safety at home. MP. Assessment Patient confirmed name and date of this session. All standing with gait belt. Ms. Esquivel is progressing well through their POC addressing balance impairments leading to falls. Pt has attended 5 sessions since 11/25/22. The pt demonstrates and verbalizes improvements in balance, function LE strength, and confidence while standing. This has lead to improved ability to perform STS transfers with less verbal cues or physical assist as well as safer gait. She is still demoing functional weakness BLE, imbalance, and B HS tightness which is impairing her gait and transfers. For these reasons, the pt will benefit from continued skilled PT services to address the above stated impairments and functional limitations to maximize participation in ADLs and functional mobility. She responded well to neuro re-ed today and will plan to cont progressing ther ex and neuro re-ed. Pt reports increasing RLE pain therefore seated exercises only on LLE. Reason For Visit Reason for Visit_: Initial Evaluation . Dx: R29.6. Referred by: [facility] Risk Screening There are no spiritual/cultural practices/values/needs that are important to know Initial Fall Risk Screening: SHAJI has fallen in the last 6 months. She has fallen due to fall fwd. Her fall resulted in the following injury: stitches, hematoma. SHAJI does not have a fear of falling. She does not need assistance with sitting, standing or walking. Does not need assistance walking in her home. She needs assistance in an unfamiliar setting. The patient is using an assistive device. Care Plan: Moderate Risk: Low risk interventions plus: do not leave patient on exam table unattended, supervised activity, educate patient/family on falls prevention, review safety initiatives with patient/family, family at bedside as allowed, yellow falls risk band, focus rounding attention, locate patient in area of high visibility, wheelchair, bed, or personal alarm, bedside commode, elevated toilet seat and pharmacy consult for medication concerns. Low: age 65 or older. Moderate: fall in last 6 months or fear of falling. Insurance Insurance reviewed Visit number: 5 Insurance: Evaluating therapist: Bibi Villela PT, DPT PT dx: Z74.09, R26.89 Beginnin2022 Endin2022 Subjective Patient reports:. Pt arrives reporting R foot pain. Caregiver states her sinemet was increased Friday and pt has had a lot more energy/ been more animated. Precautions: Fall Risk: moderate Objective Ortho Difficulty determining MMT d/t cognitive limitations therefore not tested at recheck TIght HS B R>L with pt unable to straighten B knees TU.49 sec CGA > 23.58 sec CGA Gait: shuffling gait, no trunk rotation, no arm swing > longer step lengths, improved balance STS Transfers: Max VCs, mod A x1, unable to place LEs and UEs properly IND > mod VCs, variable assist level from CGA-mod A. Outcome Measures Timed Up and Go Test score: 46.49 sec > 23.58 sec Treatment Time in clinic started at 10:01 am Time in clinic ended at 10:43 am Total time in clinic is 43 minutes. Total timed code time is 38 minutes. Therapeutic exercise (18515): timed minutes 30, units 2 . SEE NEURO Recheck, review HEP, review POC SciFit 3' (X) Standing hip abd on foam x10 ea Standing hip flex on foam x10 ea Standing hip ext on foam x10 ea (X) Stand HS curl on foam x10 ea March on foam x10 ea Side steps outisde // bars x2 laps March amb outisde // bars 2 laps Bkwd amb outisde // bars 2 laps (X) Squat on foam x10 Fwd and bkwd negotiation in w/c 10' x2 (N) Seated august x10 ea (X) Seated hip add x10 Seated hip abd blue TB x10 (X) Seated HS stretch with BLE on chair x2 min (X) LAQ with ball x10 ea L. Neuromuscular Re-education (89551): timed minutes 8, units 1 (more content not included)... Normal [facility] PT Progress Noteon 3 PT Progress Note Therapy Diagnosis Assessed Frequent falls (V15.88) (R29.6) Impaired transfers (781.99) (Z74.09) Poor balance (781.99) (R26.89) Plan Goals: Goals set and discussed today. In 2 weeks, pt will be IND and compliant with HEP for participation throughout POC. Balance: In 4 weeks, pt will perform TUG SBA in 40 sec or less without AD for dec risk of falls. Flexibility: In 4 weeks, pt will demo ability to ext B knees equally for gait. Transfers: In 4 weeks, pt will demo STS transfer CGA with min VCs for IND at home. , In 4 weeks, pt will be able to follow all directions for objective measures for ability to strengthen BLE. Planned interventions include: education/instruction, gait training, home program, manual therapy, neuromuscular re-education, self care/home management, therapeutic activities and therapeutic exercises. Frequency and duration: 1 time(s) a week, for 4 weeks, for 4 visits. Potential to achieve rehab goals is good Add neuro re-ed next session for improved balance and stability with walking. MP. Assessment Patient confirmed name and date of this session. All standing with gait belt in // bars. Pt late to session. Improved tolerance to activities today with less fatigue observed. She does still require seated rest breaks. Did not perform step ups on R d/t inc pain. Pt with definite need for UEs with STS d/t weakness of LEs. Reason For Visit Initial Evaluation . Dx: R29.6. Referred by: [facility] Risk Screening There are no spiritual/cultural practices/values/needs that are important to know Initial Fall Risk Screening: SHAJI has fallen in the last 6 months. She has fallen due to fall fwd. Her fall resulted in the following injury: stitches, hematoma. SHAJI does not have a fear of falling. She does not need assistance with sitting, standing or walking. Does not need assistance walking in her home. She needs assistance in an unfamiliar setting. The patient is using an assistive device. Care Plan: Moderate Risk: Low risk interventions plus: do not leave patient on exam table unattended, supervised activity, educate patient/family on falls prevention, review safety initiatives with patient/family, family at bedside as allowed, yellow falls risk band, focus rounding attention, locate patient in area of high visibility, wheelchair, bed, or personal alarm, bedside commode, elevated toilet seat and pharmacy consult for medication concerns. Low: age 65 or older. Moderate: fall in last 6 months or fear of falling. Insurance Insurance reviewed Visit number: 4 Insurance: Evaluating therapist: Bibi Villela PT, DPT PT dx: Z74.09, R26.89 Beginnin2022 Endin2022 Subjective Patient reports:. She reports pain of R hand and R foot. She states she fell this weekend. Precautions: Fall Risk: moderate Treatment Time in clinic started at 11:38 am Time in clinic ended at 12:11 pm Total time in clinic is 34 minutes. Total timed code time is 30 minutes. Therapeutic exercise (17646): timed minutes 30, units 2 . SciFit 3' (X) Standing hip abd on foam x10 ea Standing hip flex on foam x10 ea Standing hip ext on foam x10 ea (N) Stand HS curl on foam x10 ea March on foam x10 ea Side steps red mat x2 laps March amb red mat 2 laps Bkwd amb red mat 2 laps Squat on foam x10 Hand taps all directions x2' ea LE Cone reaches x2' (X) Step ups foam x8 ea Step taps foam x8 ea Seated march x10 ea Seated hip add x10 Seated hip abd blue TB x10 Seated HS stretch with BLE on chair x2 min (X) LAQ with ball x10 ea. Provided today: a personalized home program (Scanned) . 12/03/22 HEP HO given- seated hip abd. 'Scores and Scales' Signatures Electronically signed by : Bibi Villela, PT; Dec 24 2022 12:17PM EST (Author) Normal [facility] PT Progress Noteon 3 PT Progress Note Therapy Diagnosis Assessed Frequent falls (V15.88) (R29.6) Impaired transfers (781.99) (Z74.09) Poor balance (781.99) (R26.89) Plan Goals: Goals set and discussed today. In 2 weeks, pt will be IND and compliant with HEP for participation throughout POC. Balance: In 4 weeks, pt will perform TUG SBA in 40 sec or less without AD for dec risk of falls. Flexibility: In 4 weeks, pt will demo ability to ext B knees equally for gait. Transfers: In 4 weeks, pt will demo STS transfer CGA with min VCs for IND at home. , In 4 weeks, pt will be able to follow all directions for objective measures for ability to strengthen BLE. Planned interventions include: education/instruction, gait training, home program, manual therapy, neuromuscular re-education, self care/home management, therapeutic activities and therapeutic exercises. Frequency and duration: 1 time(s) a week, for 4 weeks, for 4 visits. Potential to achieve rehab goals is good Cont progressing ther ex as pt tolerates for reduced falls. Assessment Patient confirmed name and date of this session. All standing with gait belt in // bars Pt fatigued upon arrival today and requires multiple sitting rest breaks. She requires verbal, visual, and tactile cues for correct performance of most activities. Able to progress a lot of ther ex with foam in order to also challenge balance for reduced risk of falls. Reason For Visit Initial Evaluation . Dx: R29.6. Referred by: [facility] Adult Risk Screening There are no spiritual/cultural practices/values/needs that are important to know Initial Fall Risk Screening: SHAJI has fallen in the last 6 months. She has fallen due to fall fwd. Her fall resulted in the following injury: stitches, hematoma. SHAJI does not have a fear of falling. She does not need assistance with sitting, standing or walking. Does not need assistance walking in her home. She needs assistance in an unfamiliar setting. The patient is using an assistive device. Care Plan: Moderate Risk: Low risk interventions plus: do not leave patient on exam table unattended, supervised activity, educate patient/family on falls prevention, review safety initiatives with patient/family, family at bedside as allowed, yellow falls risk band, focus rounding attention, locate patient in area of high visibility, wheelchair, bed, or personal alarm, bedside commode, elevated toilet seat and pharmacy consult for medication concerns. Low: age 65 or older. Moderate: fall in last 6 months or fear of falling. Insurance Insurance reviewed Visit number: 3 Insurance: Evaluating therapist: Bibi Villela PT, DPT PT dx: Z74.09, R26.89 Beginnin2022 Endin2022 Subjective Patient reports:. Pt reports R foot hurts but she does not know why. She reports multiple falls since being here last. Her caregiver reports she is unaware of any falls over the past week. Precautions: Fall Risk: moderate Treatment Time in clinic started at 10:02 am Time in clinic ended at 10:42 am Total time in clinic is 40 minutes. Total timed code time is 38 minutes. Therapeutic exercise (27033): timed minutes 38, units 3 . SciFit 3' Standing hip abd on foam x10 ea (P) Standing hip flex on foam x10 ea (P) Stand HS curl on foam x5 ea (X) March on foam x10 ea (N) Side steps red mat x2 laps (P) March amb red mat 2 laps (P) Bkwd amb red mat 2 laps (P) Squat on foam x10 (P) Hand taps all directions x2' ea LE (X) Cone reaches x2' (X) Step ups 4 x8 ea Step taps 4 x8 ea (N) Seated march x10 ea Seated hip add x10 Seated hip abd blue TB x10 (P) Seated HS stretch with BLE on chair x2 min LAQ with ball x10 ea (N). Provided today: a personalized home program (Scanned) . 12/03/22 HEP HO given- seated hip abd. 'Scores and Scales' Signatures Electronically signed by : Bibi Villela, PT; Dec 19 2022 10:47AM EST (Author) Normal [facility] PT Progress Noteon 3 PT Progress Note Therapy Diagnosis Assessed Frequent falls (V15.88) (R29.6) Impaired transfers (781.99) (Z74.09) Poor balance (781.99) (R26.89) Plan Goals: Goals set and discussed today. In 2 weeks, pt will be IND and compliant with HEP for participation throughout POC. Balance: In 4 weeks, pt will perform TUG SBA in 40 sec or less without AD for dec risk of falls. Flexibility: In 4 weeks, pt will demo ability to ext B knees equally for gait. Transfers: In 4 weeks, pt will demo STS transfer CGA with min VCs for IND at home. , In 4 weeks, pt will be able to follow all directions for objective measures for ability to strengthen BLE. Planned interventions include: education/instruction, gait training, home program, manual therapy, neuromuscular re-education, self care/home management, therapeutic activities and therapeutic exercises. Frequency and duration: 1 time(s) a week, for 4 weeks, for 4 visits. Potential to achieve rehab goals is good Cont with with strength and balance activities to reduce falls at home. Assessment Patient confirmed name and date of this session. Pt tends to turn with side steps to L indicating potentially more weakness of L hip abductors vs R. Max verbal and visual cues for all activities. She demos very short steps bkwd despite cues. She does c/o B knee pain throughout session. Reason For Visit Initial Evaluation . Dx: R29.6. Referred by: Carol Ann Adult Risk Screening There are no spiritual/cultural practices/values/needs that are important to know Initial Fall Risk Screening: SHAJI has fallen in the last 6 months. She has fallen due to fall fwd. Her fall resulted in the following injury: stitches, hematoma. SHAJI does not have a fear of falling. She does not need assistance with sitting, standing or walking. Does not need assistance walking in her home. She needs assistance in an unfamiliar setting. The patient is using an assistive device. Care Plan: Moderate Risk: Low risk interventions plus: do not leave patient on exam table unattended, supervised activity, educate patient/family on falls prevention, review safety initiatives with patient/family, family at bedside as allowed, yellow falls risk band, focus rounding attention, locate patient in area of high visibility, wheelchair, bed, or personal alarm, bedside commode, elevated toilet seat and pharmacy consult for medication concerns. Low: age 65 or older. Moderate: fall in last 6 months or fear of falling. Insurance Insurance reviewed Visit number: 2 Insurance: Evaluating therapist: Bibi Villela PT, ALIYA PT dx: Z74.09, R26.89 Beginnin2022 Endin2022 Subjective Patient reports:. Pt reports some pain of R wrist upon arrival. Caregiver states she has not been compliant with HEP. Precautions: Fall Risk: moderate Treatment Time in clinic started at 3:29 pm Time in clinic ended at 4:10 pm Total time in clinic is 41 minutes. Total timed code time is 38 minutes. Therapeutic exercise (94039): timed minutes 38, units 3 . SciFit 5' Standing hip abd x10 ea Standing hip flex x10 ea Stand HS curl x5 ea Side steps x2 laps March amb 2 laps Bkwd amb 2 laps Squat x8 Hand taps all directions x2' ea LE Cone reaches x2' Step ups Seated march x10 ea Seated hip add x10 Seated hip abd orange TB x10 Seated HS stretch with BLE on chair x2 min. Provided today: a personalized home program (Scanned) . 12/03/22 HEP HO given- seated hip abd. 'Scores and Scales' Signatures Electronically signed by : Bibi Villela, PT; Dec 03 2022 4:12PM EST (Author) Normal [facility] PT Initial Evaluationon 11-07 PT Initial Evaluation Therapy Diagnosis Assessed Frequent falls (V15.88) (R29.6) Poor balance (781.99) (R26.89) Impaired transfers (781.99) (Z74.09) Plan of Care Goals: Goals set and discussed today. In 2 weeks, pt will be IND and compliant with HEP for participation throughout POC. Balance: In 4 weeks, pt will perform TUG SBA in 40 sec or less without AD for dec risk of falls. Flexibility: In 4 weeks, pt will demo ability to ext B knees equally for gait. Transfers: In 4 weeks, pt will demo STS transfer CGA with min VCs for IND at home. , In 4 weeks, pt will be able to follow all directions for objective measures for ability to strengthen BLE. Planned interventions include: education/instruction, gait training, home program, manual therapy, neuromuscular re-education, self care/home management, therapeutic activities and therapeutic exercises. Frequency and duration: 1 time(s) a week, for 4 weeks, for 4 visits. Potential to achieve rehab goals is good Plan of care was developed with input and agreement by the patient and nurse. Assessment Ms. Esquivel arrives to outpatient PT with s/s consistent with c/o frequent falls. Pt presents with the following impairments: weakness of BLE, imbalance, impaired gait. These are contributing to frequent falls and increased risk of injuring herself. The pt will benefit from skilled PT services to address the above stated impairments and functional limitations to maximize participation and ease in household, social related activities. The pt has a fair prognosis when considering positive factors including support in senior care with barriers such as understanding of exercises. The pt verbalized understanding and agreement to goals and POC. Thank you for this referral and please call [phone] with any questions or concerns. Clinical Presentation: Stable and/or uncomplicated characteristics. Level of Complexity: low Problem List: activity limitations, ADLs/IADLs/self care skills, balance, decreased functional level, decreased knowledge of HEP, fall risk, flexibility, gait/locomotion, range of motion/joint mobility, strength and transfers. Reason For Visit Initial Evaluation . Dx: R29.6. Referred by: [facility] Adult Risk Screening There are no spiritual/cultural practices/values/needs that are important to know Initial Fall Risk Screening: SHAJI has fallen in the last 6 months. She has fallen due to fall fwd. Her fall resulted in the following injury: stitches, hematoma. SHAJI does not have a fear of falling. She does not need assistance with sitting, standing or walking. Does not need assistance walking in her home. She needs assistance in an unfamiliar setting. The patient is using an assistive device. Care Plan: Moderate Risk: Low risk interventions plus: do not leave patient on exam table unattended, supervised activity, educate patient/family on falls prevention, review safety initiatives with patient/family, family at bedside as allowed, yellow falls risk band, focus rounding attention, locate patient in area of high visibility, wheelchair, bed, or personal alarm, bedside commode, elevated toilet seat and pharmacy consult for medication concerns. Low: age 65 or older. Moderate: fall in last 6 months or fear of falling. Insurance Insurance reviewed Visit number: 1 Insurance: Evaluating therapist: Bibi Villela PT, ALIYA PT dx: Z74.09, R26.89 Beginnin2022 Endin2022 Subjective Current Episode of Functional Impairment and/or Pain Date of onset: 10/21/22 Mechanism of Injury:. Pt is a 62 y/o F arriving to outpatient PT c/o frequent falls d/t Parkinson's disease (PD). Dx with PD Jul 2022. She has had stitches and hematomas d/t falls. Falls tend to be forward- gets feet tangled, when bending. Nurse states she has some falls that are attention seeking. Nurse believes LLE may be weaker. She does require assistance with bathing and dressing which is normal for her. She does not use AD and is able to ambulate household distances IND. SHe uses w/c when out of the senior care. Pt denies pain in LEs. Nurse, Anne, present for eval. Medical Screening: Reviewed medical history form with patient and medical screening assessed. DM, HTN, thyroid disorder, anemia. Current Medical Management:. Patient confirmed name and date of this session. Precautions: Fall Risk: moderate Functional Assessment Prior level of function: Pt was previously IND in all ADLs with no restrictions. Patient stated goal(s) for treatment include: increasing strength , reducing symptoms of imbalance and reducing/preventing future occurrences of falls. Current Status: worsening. Patient Awareness: Patient is aware of her diagnosis and prognosis. Living Environment: walk-in shower . retirement- no steps Uses shower chair. Personal Factors That May Impact Care:. No barriers to learning. Objective Ortho Difficulty determining MMT d/t cognitive limitations MMT hip seated R- flex: 3 /5 abd (more content not included)... Normal [facility] Clinical Event Note-ED Post Discharge Result Follow Up: Nina 11-11-2022 Clinical Event Note-ED Post Discharge Result Follow Up: Atte Clinical Event: Clinical Event Note: TopicED Post Discharge Result Follow Up: Attempt # 1, Complete : Urine Culture: E. coli Details Facility Name: [facility] I reviewed the results of a positive urine culture that was collected from the patient in the emergency room. The patient was discharged back their long-term care facility (indicated above). The Culture Callback Team will turn over care to attending providers at the facility. No further follow up is necessary. If there are any questions for the ED Post-Discharge Culture Follow-Up Team, please contact via or Sue Simons PharmD PGY-1 Administrative Assistant [phone] Electronic Signatures: Sue Simons ([facility]) (Signed 11-Nov-2022 15:41) Authored: Clinical Event Note Ann Cardoza (PharmD) (Signed 12-Nov-2022 08:03) Co-Signer: Clinical Event Note Last Updated: 12-Nov-2022 08:03 by Ann Cardoza (PharmD) Normal [facility] CBC AND DIFFERENTIALon 11-06 % AUTOMATED IMMATURE GRAN 0.4 % Normal 0.0 - 0.9 [facility] Comment on above: Result Comment: Reina ture Granulocyte Count (IG) includes promyelocytes, myelocytes and metamyelocytes but does not include bands. Percent differential counts (%) should be interpreted in the context of the absolute cell counts (cells/L). Performed By: #### C BCDF #### [address] [address] Basophils (Bld) [#/Vol] 0.01 10*3/uL Normal 0.00 - 0.10 [facility] Comment on above: Performed By: #### C BCDF #### [address] [address] Basophils/100 WBC (Bld) 0.1 % Normal 0.0 - 2.0 [facility] Comment on above: Performed By: #### C BCDF #### [address] [address] Eosinophils (Bld) [#/Vol] 0.15 10*3/uL Normal 0.00 - 0.70 [facility] Comment on above: Performed By: #### C BCDF #### [address] [address] Eosinophils/100 WBC (Bld) 1.8 % Normal 0.0 - 6.0 [facility] Comment on above: Performed By: #### C BCDF #### [address] [address] Erythrocyte distribution width (RBC) [Ratio] 13.2 % Normal 11.5 - 14.5 [facility] Comment on above: Performed By: #### C BCDF #### [address] [address] Hematocrit (Bld) [Volume fraction] 39.3 % Normal 36.0 - 46.0 [facility] Comment on above: Performed By: #### C BCDF #### [address] [address] Hemoglobin (Bld) [Mass/Vol] 11.7 g/dL Low 12.0 - 16.0 [facility] Comment on above: Performed By: #### C BCDF #### [address] [address] Lymphocytes (Bld) [#/Vol] 0.30 10*3/uL Low 1.20 - 4.80 [facility] Comment on above: Performed By: #### C BCDF #### [address] [address] Lymphocytes/100 WBC (Bld) 3.6 % Normal 13.0 - 44.0 [facility] Comment on above: Performed By: #### C BCDF #### [address] [address] MCHC (RBC) [Mass/Vol] 29.8 g/dL Low 32.0 - 36.0 [facility] Comment on above: Performed By: #### C BCDF #### [address] [address] MCV (RBC) [Entitic vol] 94 fL Normal 80 - 100 [facility] Comment on above: Performed By: #### C BCDF #### [address] [address] Monocytes (Bld) [#/Vol] 0.19 10*3/uL Normal 0.10 - 1.00 [facility] Comment on above: Performed By: #### C BCDF #### [address] [address] Monocytes/100 WBC (Bld) 2.3 % Normal 2.0 - 10.0 [facility] Comment on above: Performed By: #### C BCDF #### [address] [address] Neutrophils (Bld) [#/Vol] 7.70 10*3/uL Normal 1.20 - 7.70 [facility] Comment on above: Result Comment: Perc ent differential counts (%) should be interpreted in the context of the absolute cell counts (cells/L). Performed By: #### C BCDF #### [address] [address] Neutrophils/100 WBC (Bld) 91.8 % Normal 40.0 - 80.0 [facility] Comment on above: Performed By: #### C BCDF #### [address] [address] Platelets (Bld) [#/Vol] 286 10*3/uL Normal 150 - 450 [facility] Comment on above: Performed By: #### C BCDF #### [address] [address] RBC 4.19 x10E12/L Normal 4.00 - 5.20 [facility] Comment on above: Performed By: #### C BCDF #### [address] [address] WBC (Bld) [#/Vol] 8.4 10*3/uL Normal 4.4 - 11.3 [facility] Comment on above: Performed By: #### C BCDF #### [address] [address] CHEST 1 VIEWon 11-06-2022 CHEST 1 VIEW Patient Name: SHAJI ESQUIVEL STUDY: CHEST 1 VIEW; 11/06/2022 9:49 am INDICATION: chest pain . COMPARISON: 05/25/2022 ACCESSION NUMBER(S): [id number] ORDERING CLINICIAN: ERICKSON HERNANDEZ FINDINGS: Artifact is present on the films. The heart is not enlarged. No infiltrate, pleural effusion or pneumothorax is seen. IMPRESSION: No active cardiopulmonary disease. Electronically signed by: MARYSOL PEÑA MD Normal [facility] COMPREHENSIVE PANELon 2022 Albumin [Mass/Vol] 4.3 g/dL Normal 3.4 - 5.0 [facility] Comment on above: Performed By: #### C MP #### [address] [address] ALP [Catalytic activity/Vol] 66 U/L Normal 33 - 136 [facility] Comment on above: Performed By: #### C MP #### [address] [address] ALT [Catalytic activity/Vol] 6 U/L Low 7 - 45 [facility] Comment on above: Result Comment: Haylee ents treated with Sulfasalazine may generate falsely decreased results for ALT. Performed By: #### C MP #### [address] [address] Anion gap [Moles/Vol] 13 mmol/L Normal 10 - 20 [facility] Comment on above: Performed By: #### C MP #### [place] [id number] AST [Catalytic activity/Vol] 18 U/L Normal 9 - 39 [facility] Comment on above: Performed By: #### C MP #### [address] [address] Bilirubin [Mass/Vol] 0.4 mg/dL Normal 0.0 - 1.2 [facility] Comment on above: Performed By: #### C MP #### [address] [address] Calcium [Mass/Vol] 9.6 mg/dL Normal 8.6 - 10.3 [facility] Comment on above: Performed By: #### C MP #### [address] [address] Chloride [Moles/Vol] 102 mmol/L Normal 98 - 107 [facility] Comment on above: Performed By: #### C MP #### [address] [address] Creatinine [Mass/Vol] 0.88 mg/dL Normal 0.50 - 1.05 [facility] Comment on above: Performed By: #### C MP #### [address] [address] GFR/1.73 sq M.predicted among non-blacks MDRD (S/P/Bld) [Vol rate/Area] 74 mL/min/{1.73_m2} Normal >90 [facility] Comment on above: Result Comment: CALC ULATIONS OF ESTIMATED GFR ARE PERFORMED USING THE 2020 CKD-EPI STUDY REFIT EQUATION WITHOUT THE RACE VARIABLE FOR THE IDMS-TRACEABLE CREATININE METHODS. https://jasn.asnjournals.org/content/early/ASN.8979933 988 Performed By: #### C MP #### [address] [address] Glucose [Mass/Vol] 160 mg/dL High 74 - 99 [facility] Comment on above: Performed By: #### C MP #### [address] [address] HCO3 (Bld) [Moles/Vol] 28 mmol/L Normal 21 - 32 [facility] Comment on above: Performed By: #### C MP #### [address] [address] Potassium [Moles/Vol] 4.1 mmol/L Normal 3.5 - 5.3 [facility] Comment on above: Performed By: #### C MP #### [address] [address] Protein [Mass/Vol] 7.6 g/dL Normal 6.4 - 8.2 [facility] Comment on above: Performed By: #### C MP #### [address] [address] Sodium [Moles/Vol] 139 mmol/L Normal 136 - 145 [facility] Comment on above: Performed By: #### C MP #### [address] [address] Urea nitrogen [Mass/Vol] 31 mg/dL High 6 - 23 [facility] Comment on above: Performed By: #### C MP #### [address] [address] [address] HEAD WO CONTRASTon 2022 CT HEAD WO CONTRAST Patient Name: SHAJI ESQUIVEL STUDY: CT HEAD WO CONTRAST; 11/06/2022 11:23 am INDICATION: weakness . COMPARISON: 10/07/2022 ACCESSION NUMBER(S): [id number] ORDERING CLINICIAN: ERICKSON HERNANDEZ TECHNIQUE: Noncontrast axial CT scan of head was performed. Angled reformats in brain and bone windows were generated. The images were reviewed in bone, brain, blood and soft tissue windows. FINDINGS: CSF Spaces: Moderate brain atrophy similar to prior evidence by prominence of the ventricles, sulci and cisterns. There is no extraaxial fluid collection. Parenchyma: Redemonstration of confluent areas of diffuse subcortical and periventricular white matter changes which given patient's age are suggestive of chronic small vessel ischemic disease. Heterogeneous decreased attenuation within the right basal ganglia, lentiform nucleus similar to previous exam suggestive of remote lacunar infarction. The crouch-white differentiation is intact. There is no mass effect or midline shift. There is no intracranial hemorrhage. Calvarium: The calvarium is unremarkable. Paranasal sinuses and mastoids: Visualized paranasal sinuses and mastoids are clear. IMPRESSION: 1. Advanced brain atrophy for patient's age and extensive areas of confluent diffuse chronic microvascular disease. 2. Overall stable remote lacunar infarction involving right basal ganglia/internal capsule of the lentiform nucleus. 3. No evidence of acute cortical infarct or intracranial hemorrhage. If there is persistent clinical concern for acute cortical infarction, MRI with diffusion-weighted images is a better means for further evaluation as clinically warranted. Electronically signed by: KATIE HIDALGO MD Normal [facility] CT Head without Contraston 0 11-06-2022 CT Head limited WO contrast [facility] Work Phone: CT Neck with Contraston - CT Neck W contrast IV Normal [facility] Work Phone: Complete Blood Count + Diffe rentialon 11-06-2022 Basophils/100 WBC (Bld) 0.1 % 0.0 - 2.0 [facility] Work Phone: Erythrocyte distribution width (RBC) [Ratio] 13.2 % See Below [facility] Work Phone: Comment on above: Reference Range: 11. 5 - 14.5 Hematocrit (Bld) [Volume fraction] 39.3 % See Below [facility] Work Phone: Comment on above: Reference Range: 36. 0 - 46.0 Hemoglobin (Bld) [Mass/Vol] 11.7 g/dL below low threshold See Below [facility] [place] Work Phone: [phone] Comment on above: Reference Range: 12. 0 - 16.0 Lymphocytes/100 WBC (Bld) 3.6 % See Below [facility] brendan [place] Work Phone: [phone] Comment on above: Reference Range: 13. 0 - 44.0 MCHC (RBC) [Mass/Vol] 29.8 g/dL below low threshold See Below [facility] [place] Work Phone: [phone] Comment on above: Reference Range: 32. 0 - 36.0 MCV (RBC) [Entitic vol] 94 fL 80 - 100 [facility] [place] Work Phone: [phone] Monocytes/100 WBC (Bld) 2.3 % 2.0 - 10.0 [facility] [place] Work Phone: [phone] Neutrophils/100 WBC (Bld) 91.8 % See Below [facility] [place] Work Phone: [phone] Comment on above: Reference Range: 40. 0 - 80.0 Platelets (Bld) [#/Vol] 286 10*3/uL 150 - 450 [facility] [place] Work Phone: [phone] RBC (Bld) [#/Vol] 4.19 {x10E12/L} See Below [facility] [place] Work Phone: [phone] Comment on above: Reference Range: 4.0 0 - 5.20 WBC (Bld) [#/Vol] 8.4 10*3/uL 4.4 - 11.3 [facility] [place] Work Phone: Complete Blood Count + Differential 0.01 {x10E9/L} See Below [facility] Work Phone: Comment on above: Reference Range: 0.0 0 - 0.10 Complete Blood Count + Differential 0.15 {x10E9/L} See Below [facility] Work Phone: Comment on above: Reference Range: 0.0 0 - 0.70 Complete Blood Count + Differential 0.19 {x10E9/L} See Below [facility] Work Phone: Comment on above: Reference Range: 0.1 0 - 1.00 Complete Blood Count + Differential 0.30 {x10E9/L} below low threshold See Below [facility] Work Phone: Comment on above: Reference Range: 1.2 0 - 4.80 Complete Blood Count + Differential 7.70 {x10E9/L} See Below [facility] Work Phone: Comment on above: Reference Range: 1.2 0 - 7.70 Percent differential counts (%) should be interpreted in the context of the absolute cell counts (cells/L). Complete Blood Count + Differential 1.8 % 0.0 - 6.0 [facility] Work Phone: Complete Blood Count + Differential 0.4 % 0.0 - 0.9 [facility] Work Phone: Comment on above: Immature Granulocyte Count (IG) includes promyelocytes, myelocytes and metamyelocytes but does not include bands. Percent differential counts (%) should be interpreted in the context of the absolute cell counts (cells/L). Cult, Urineon 11-06-2022 Bacteria identified Cx Nom (U) Abnormal [facility] Work Phone: Laboratory - Chemistry and C hemistry - challengeon 11-06-2022 Albumin BCP dye [Mass/Vol] 4.3 g/dL 3.4 - 5.0 [facility] [place] Work Phone: ALP [Catalytic activity/Vol] 66 U/L 33 - 136 [facility] brendan [place] Work Phone: ALT With P-5'-P [Catalytic activity/Vol] 6 U/L below low threshold 7 - 45 [facility] brendan [place] Work Phone: Comment on above: Patients treated wit h Sulfasalazine may generate falsely decreased results for ALT. Anion gap [Moles/Vol] 13 mmol/L 10 - 20 [facility] brendan [place] Work Phone: AST With P-5'-P [Catalytic activity/Vol] 18 U/L 9 - 39 [facility] [place] Work Phone: Bilirubin [Mass/Vol] 0.4 mg/dL 0.0 - 1.2 [facility] brendan [place] Work Phone: Calcium [Mass/Vol] 9.6 mg/dL 8.6 - 10.3 [facility] [place] Work Phone: Chloride [Moles/Vol] 102 mmol/L 98 - 107 [facility] brendan [place] Work Phone: CO2 [Moles/Vol] 28 mmol/L 21 - 32 [facility]erndan [place] Work Phone: Creatinine [Mass/Vol] 0.88 mg/dL See Below [facility] [place] Work Phone: Comment on above: Reference Range: 0.5 0 - 1.05 Glucose [Mass/Vol] 160 mg/dL above high threshold 74 - 99 [facility] brendan [place] Work Phone: Potassium [Moles/Vol] 4.1 mmol/L 3.5 - 5.3 [facility] Work Phone: [phone] Protein [Mass/Vol] 7.6 g/dL 6.4 - 8.2 [facility] Work Phone: [phone] Sodium [Moles/Vol] 139 mmol/L 136 - 145 [facility] Work Phone: [phone] Urea nitrogen [Mass/Vol] 31 mg/dL above high threshold 6 - 23 [facility] Work Phone: [phone] NECK WITH CONTRASTon 0 11-06-[address] NECK WITH CONTRAST Patient Name: SHAJI ESQUIVEL STUDY: CT NECK WITH CONTRAST; 11/06/2022 11:23 am INDICATION: sore throat. . COMPARISON: 01/11/2017. ACCESSION NUMBER(S): [id number] ORDERING CLINICIAN: ERICKSON HERNANDEZ TECHNIQUE: Axial CT images of the neck were obtained. The patient received 90 mL Omnipaque 350 intravenous contrast agent. The images were reformatted in angled axial, coronal and sagittal planes. FINDINGS: Oral Cavity, Pharynx and Larynx: Evaluation oral cavity is limited by streak artifact from dental hardware. The nasopharyngeal and oropharyngeal structures are unremarkable. The hypopharyngeal and laryngeal structures are unremarkable. There is mild nonspecific circumferential thickening of the visualized thoracic esophagus. Retropharyngeal and Prevertebral Soft Tissues: Unremarkable. Lymph nodes: There are few non specific bilateral neck nodes, probably reactive in etiology. Nonspecific multiple small lymph nodes are noted within the mediastinum. Neck vessels: Bilateral neck vessels are normal in course and caliber and appear patent. Thyroid gland: The thyroid gland is unchanged in appearance with an exophytic thyroid nodule versus asymmetric enlargement of the right thyroid lobe compared to the left. Parotid and submandibular glands: Bilateral parotid and submandibular glands are unremarkable in appearance. Paranasal Sinuses and Mastoids: Visualized paranasal sinuses and bilateral mastoids are predominantly clear. Visualized orbital structures are unremarkable. Visualized upper lungs are predominantly clear. Visualized cervical spine appears unremarkable. Nonspecific scalp thickening within the right frontal region. IMPRESSION: No evidence of significant cervical adenopathy or a soft tissue mass in the neck. Nonspecific multiple small lymph nodes are noted within the superior mediastinum. Mild nonspecific circumferential thickening of the visualized thoracic esophagus. Nonspecific scalp thickening within the right frontal region. Electronically signed by: DELLA NORMAN MD [facility] Panel Informationon 11-06 74 {mL/min/1.73m2} >90 [facility] Services-[facility] Work Phone: Comment on above: CALCULATIONS OF VELASQUEZ MATED GFR ARE PERFORMED USING THE 2020 CKD-EPI STUDY REFIT EQUATION WITHOUT THE RACE VARIABLE FOR THE IDMS-TRACEABLE CREATININE METHODS.https://jasn.asnjournals.org/content//ASN .0607974261 Provider Note - ED v3on 10-09 Provider Note - ED v3 Provider Note: Chart Review: ED NOTES ED NOTES: Limitations to History: MRDD HPI: 62-year-old female presents with concern for weakness and altered mental status. Patient comes from a local facility that cares for MRDD patients. States that she had fallen a few days ago at home. Does have some bruising. Patient states that she is having some pain in her chest secondary to this fall. Patient also having some pain in her throat. Denies any nausea, vomiting, fever, chills, cough, abdominal pain, urinary symptoms. Additional History Obtained from: Caregiver at the bedside. Physical Exam: VS: As documented in the triage note and EMR flowsheet from this visit were reviewed. Appearance: Alert. cooperative, in no acute distress. Skin: Ecchymosis to the right neck. Ecchymosis to the left thigh. Eyes: PERRLA, EOMs intact, Conjunctiva pink with no redness or exudates. HENT: Normocephalic, atraumatic. Nares patent. No intraoral lesions. Neck: Supple, without meningismus. Trachea at midline. No lymphadenopathy. Pulmonary: Clear bilaterally with good chest wall excursion. No rales, rhonchi or wheezing. No accessory muscle use or stridor. Cardiac: Regular rate and rhythm, no rubs, murmurs, or gallops. Abdomen: Abdomen is soft, nontender, and nondistended. No palpable organomegaly. No rebound or guarding. No CVA tenderness. Nonsurgical abdomen Genitourinary: Exam deferred. Musculoskeletal: Full range of motion. Pulses full and equal. No cyanosis, clubbing, or edema. Neurological: Cranial nerves are grossly intact, grossly normal sensation, no weakness, no focal findings identified. Psychiatric: Appropriate mood and affect. HISTORY OF PRESENTING ILLNESS SHAJI is a 62 year old Female and was seen by me at 06-Nov-2022 09:35 for a chief complaint of weakness (Brought to ED per [facility] squad from [facility]. Staff reports that upon arrival to their facility today she seemed weaker than normal. She did have a fall at her senior care yesterday and has bruises to her L upper leg and R neck. She c/o some trouble swallowing and some throat pain. She has no deficits and is at her baseline per staff. Pt tells ER doctor that she is having pain in her chest. Called for EKG.)(1). Triage Information: Most recent Vital Sign Value Date Temp (F): 99 11-06-2022 09:41 Temp (C): 37.2 11-06-2022 09:41 Heart Rate (beats/min): 99 11-06-2022 09:41 Respirations (breaths/min): 16 11-06-2022 09:41 SpO2 (%): 96 11-06-2022 09:41 BP Systolic (mm Hg): 157 11-06-2022 09:41 BP Diastolic (mm Hg): 87 11-06-2022 09:41 PAST MEDICAL HISTORY ALLERGIES/INTOLERANCES: No Known Allergies HEALTH HISTORY: No documented data. OUTPATIENT MEDICATIONS: Home Medications Review Status for Reconciliation: Complete Med Status: Patient Currently Takes Medications Drug Name: acetaminophen 500 mg oral tablet Instructions: 2 tab(s) orally every 6 hours, As Needed Drug Name: atorvastatin 10 mg oral tablet Instructions: 1 tab(s) orally once a day Drug Name: amLODIPine 2.5 mg oral tablet Instructions: 1 tab(s) orally once a day Drug Name: benztropine 1 mg oral tablet Instructions: 1 tab(s) orally 2 times a day Drug Name: carbidopa-levodopa 25 mg-100 mg oral tablet Instructions: 1 tab(s) orally 3 times a day Drug Name: docusate sodium 100 mg oral capsule Instructions: 1 cap(s) orally 2 times a day Drug Name: hyoscyamine 0.125 mg oral tablet Instructions: 1 tab(s) orally once a day, As Needed Drug Name: Januvia 100 mg oral tablet Instructions: 1 tab(s) orally once a day Drug Name: levothyroxine 75 mcg (0.075 mg) oral tablet Instructions: 1 tab(s) orally once a day Drug Name: Melatonin 3 mg oral tablet Instructions: 1 tab(s) orally once a day (at bedtime) Drug Name: mirtazapine 30 mg oral tablet, disintegrating Instructions: 1 tab(s) orally once a day (at bedtime) Drug Name: Multiple Vitamins with Minerals oral tablet Instructions: 1 tab(s) orally once a day Drug Name: OLANZapine 10 mg oral tablet Instructions: 1 tab(s) orally once a day Drug Name: omeprazole 40 mg oral delayed release capsule Instructions: 1 cap(s) orally once a day Drug Name: Senexon-S 50 mg-8.6 mg oral tablet Instructions: 1 tab(s) orally once a day Drug Name: potassium chloride 10 mEq oral tablet, extended release Instructions: 1 tab(s) orally once a day Drug Name: metFORMIN 1000 mg oral tablet, extended release Instructions: 1 tab(s) orally 2 times a day Drug Name: polyethylene glycol 3350 oral powder for reconstitution Instructions: 17 gram(s) orally once a day Drug Name: cephalexin 500 mg oral tablet Instructions: 1 tab(s) orally 2 times a day SIGNIFICANT EVENTS: Immunizations Description:Tdap Past Medical History Descrip (more content not included)... Normal [facility] Radiology 11-06-2022 XR Chest Single view Normal [facility] Work Phone: Risk Screen - Adult Emergenc yon 11-06-2022 Risk Screen - Adult Emergency Preferred Language: Preferred Language: Preferred Language for Discussing Health Care (patient/designee)Samara olea Patient Preferred Pharmacy: Patient Preferred Pharmacy Statement: I have reviewed and updated the patient's preferred pharmacy selection for today's visit. Advanced Directives: Advance Directive/DNRno Family Violence Adult: Abuse Screen: Are you or have you been threatened or abused physically, emotionally, or sexually by anyoneno Learning Assessment (Patient): Learning Assessment (Patient): Patient is Able to be Assessed for Learningno Reason Unable to Assessdevelopmental level Learning Assessment (Other Learner): Learning Assessment (Other Learner): Other learner availableno Pressure Injury/TB/Substance: Pressure Injury: Pressure Injury Present on Admissionno Do you have a coughno Smoking Statusnever smoker Admission Risk Screen: Significant IndicatorsComplete CAGE: CAGE: Is this an injured patient at a Trauma Center ([facility]/[place]/[facility]/[place]): no Electronic Signatures: Saida Fairbanks ([place]) (Signed 06-Nov-2022 10:09) Authored: Preferred Language, Patient Preferred Pharmacy, Advanced Directives, Family Violence Adult, Learning Assessment (Patient), Learning Assessment (Other Learner), Pressure Injury/TB/Substance, Pressure Injury, CAGE Last Updated: 06-Nov-2022 10:09 by Saida Fairbanks ([place]) Normal [facility] TROPONIN I, HIGH SENSITIVITY on 11-06-2022 TROPONIN I, HIGH SENSITIVITY 4 ng/L Normal 0 - 13 [facility] Comment on above: Result Comment: . Less than 99th percentile of normal range cutoff- Female and children under 18 years old <14 ng/L; Male <21 ng/L: Negative Repeat testing should be performed if clinically indicated. . Female and children under 18 years old 14-50 ng/L; Male 21-50 ng/L: Consistent with possible cardiac damage and possible increased clinical risk. Serial measurements may help to assess extent of myocardial damage. . >50 ng/L: Consistent with cardiac damage, increased clinical risk and myocardial infarction. Serial measurements may help assess extent of myocardial damage. . NOTE: Children less than 1 year old may have higher baseline troponin levels and results should be interpreted in conjunction with the overall clinical context. . NOTE: Troponin I testing is performed using a different testing methodology at [facility] than at other bay area hospital. Direct result comparisons should only be made within the same method. Performed By: #### U [facility] #### [facility] [id number] [place] [address] TROPONIN I, HIGH SENSITIVITY 4 ng/L Normal 0 - 13 [facility] Comment on above: Result Comment: . Less than 99th percentile of normal range cutoff- Female and children under 18 years old <14 ng/L; Male <21 ng/L: Negative Repeat testing should be performed if clinically indicated. . Female and children under 18 years old 14-50 ng/L; Male 21-50 ng/L: Consistent with possible cardiac damage and possible increased clinical risk. Serial measurements may help to assess extent of myocardial damage. . >50 ng/L: Consistent with cardiac damage, increased clinical risk and myocardial infarction. Serial measurements may help assess extent of myocardial damage. . NOTE: Children less than 1 year old may have higher baseline troponin levels and results should be interpreted in conjunction with the overall clinical context. . NOTE: Troponin I testing is performed using a different testing methodology at [facility] than at other bay area hospital. Direct result comparisons should only be made within the same method. Performed By: #### T [facility] #### [address] [place] [address] Tropinin I.cardiac panel High sensitivity method 4 ng/L 0 - 13 [facility] Work Phone: Comment on above: .Less than 99th perc entile of normal range cutoff-Female and children under 18 years old <14 ng/L; Male <21 ng/L: NegativeRepeat testing should be performed if clinically indicated. .Female and children under 18 years old 14-50 ng/L; Male 21-50 ng/L:Consistent with possible cardiac damage and possible increased clinical risk. Serial measurements may help to assess extent of myocardial damage. .>50 ng/L: Consistent with cardiac damage, increased clinical risk andmyocardial infarction. Serial measurements may help assess extent of myocardial damage. . NOTE: Children less than 1 year old may have higher baseline troponin levels and results should be interpreted in conjunction with the overall clinical context. .NOTE: Troponin I testing is performed using a different testing methodology at [facility] than at other bay area hospital. Direct result comparisons should only be made within the same method. Tropinin I.cardiac panel High sensitivity method 4 ng/L 0 - 13 [facility] Work Phone: Comment on above: .Less than 99th perc entile of normal range cutoff-Female and children under 18 years old <14 ng/L; Male <21 ng/L: NegativeRepeat testing should be performed if clinically indicated. .Female and children under 18 years old 14-50 ng/L; Male 21-50 ng/L:Consistent with possible cardiac damage and possible increased clinical risk. Serial measurements may help to assess extent of myocardial damage. .>50 ng/L: Consistent with cardiac damage, increased clinical risk andmyocardial infarction. Serial measurements may help assess extent of myocardial damage. . NOTE: Children less than 1 year old may have higher baseline troponin levels and results should be interpreted in conjunction with the overall clinical context. .NOTE: Troponin I testing is performed using a different testing methodology at [facility] than at other bay area hospital. Direct result comparisons should only be made within the same method. Triage - EDon 11-06-2022 Triage - ED Quick Triage: The patient and/or guardian verbally acknowledges placement for services into the following (when Urgent Care Service hours are operating):emergency department Chart Review: ARRIVAL INFORMATION Mode of Arrival: ambulance Agency: [facility] Agency Name: AFD CHIEF COMPLAINT SHAJI ESQUIVEL is a Female patient with a chief complaint of weakness (Brought to ED per [facility] squad from [facility]. Staff reports that upon arrival to their facility today she seemed weaker than normal. She did have a fall at her senior care yesterday and has bruises to her L upper leg and R neck. She c/o some trouble swallowing and some throat pain. She has no deficits and is at her baseline per staff. Pt tells ER doctor that she is having pain in her chest. Called for EKG.). Triage Date/Time: 06-Nov-2022 09:32 CALLIE: 2 Pain Rating (0-10): 5 = Moderate Pain location: throat Vital Signs: Temperature: 99.0F ( 37.2C) taken temporal Blood Pressure: 157/87 Mean: Heart Rate: 99 Respiratory Rate: 16 Pulse Oximetry: 96% on room air, no respiratory support. Weight: 130.0 pounds. Calculated 59.0 kg. [place] Coma Scale: Best Eye Response: (E4) spontaneous Best Motor Response: (M6) obeys commands Best Verbal Response: (V5) oriented [place] Score: 15 Cough lasting greater than 3 weeks: no Allergies: no Patient has homicidal thoughts: no Symptom Notes: . Symptoms Are POSITIVE For: weakness. Symptoms Are Negative For: blurred vision, chills, confusion, dehydration, diaphoresis, headache, loss of consciousness and nausea. Last Known Well: unknown Risk Screens Suicide Risk Screen In the Past Month: Have you wished you were or wished you could go to sleep and not wake up no In the Past Month: Have you had any actual thoughts of killing yourself no In Your Lifetime: Have you ever done anything, started to do anything, or prepared to do anything to end your life no Brunson Fall Scale Screening Has the patient fallen before (or is the patient in the ED as a result of a fall) has had a fall Does the patient have an impaired gait has impaired gait Is the patient cognitively impaired cognitively impaired Brunson Fall Scale History of falling (immediate or previous) yes (25) Secondary Diagnosis yes (15) Intravenous Therapy/ Heparin/Saline Lock no (0) Gait/Transferring weak (10) Ambulatory Aids none/bedrest/nurse assist (0) Mental Status overestimates/forgets limitations (15) Brunson Fall Risk Score: 65 Interventions: Brunson Fall Interventions: HIGH INTERVENTIONS *Low and Moderate Interventions Plus: * supervised toileting at all times TRAVEL HISTORY Travel History Coronavirus Screening: no exposure or symptoms Travel Exposure History: NO travel to International locations in the past 30 days PAIN Pain Scale Used: KD Pain Rating (0-10): 5 = Moderate Past Medical History: Past Medical History Reviewedyes Electronic Signatures: Jackie Bonilla ([place]) (Signed 06-Nov-2022 09:52) Entered: Risk Screens, Pain, Travel History, Chart Review, Scores, Past Medical History Authored: Quick Triage, Risk Screens, Pain, Travel History, Chart Review, Scores, Past Medical History Last Updated: 06-Nov-2022 09:52 by Jackie Bonilla ([place]) Normal [facility] UA MICROSCOPICon 11-06-2022 RBC 3 /HPF Normal 0-5 [facility] Comment on above: Performed By: #### U RINC #### [facility] [address] [place] [address] SQUAMOUS EPITH. CELLS 1 /HPF Normal [facility] Comment on above: Performed By: #### U RINC #### [facility] [address] [place] [address] WBC 16 /HPF Abnormal 0-5 [facility] Comment on above: Performed By: #### U RINC #### [facility] [address] [place] [address] URINALYSIS WITH CULTURE IF I NDICATEDon 11-06-2022 Appearance (U) HAZY Normal CLEAR [facility] Comment on above: Performed By: #### U ARFX #### [address] [address] Bilirubin Ql (U) Negative Normal NEGATIVE [facility] Comment on above: Performed By: #### U ARFX #### [place] [address] Color (U) Yellow Normal STRAW,YELLOW [facility] Comment on above: Performed By: #### U ARFX #### [address] [address] Glucose Ql (U) Negative Normal NEGATIVE [facility] Comment on above: Performed By: #### U ARFX #### [address] [address] Hemoglobin Ql (U) Negative Normal NEGATIVE [facility] Comment on above: Performed By: #### U ARFX #### [address] [address] Ketones Ql (U) Negative Normal NEGATIVE [facility] Comment on above: Performed By: #### U ARFX #### [address] [address] Leukocyte esterase Test strip Ql (U) TRACE Abnormal NEGATIVE [facility] Comment on above: Performed By: #### U ARFX #### [address] [address] Nitrite Ql (U) Positive Abnormal NEGATIVE [facility] Comment on above: Performed By: #### U ARFX #### [address] [address] pH (U) 7.0 [pH] Normal 5.0 - 8.0 [facility] Comment on above: Performed By: #### U ARFX #### [address] [address] Protein Ql (U) Negative Normal NEGATIVE [facility] Comment on above: Performed By: #### U ARFX #### [address] [address] Specific gravity (U) [Rel density] 1.036 High 1.005 - 1.035 [facility] Comment on above: Performed By: #### U ARFX #### [address] [address] Urobilinogen (U) [Mass/Vol] mg/dL Normal 0.0 - 1.9 [facility] Comment on above: Performed By: #### U ARFX #### [address] [address] Color (U) Yellow See Below [facility] Work Phone: Comment on above: Reference Range: STR AW,YELLOW Glucose Ql (U) Negative NEGATIVE [facility] Work Phone: Ketones Ql (U) Negative NEGATIVE [facility] Work Phone: Leukocyte esterase Test strip Ql (U) TRACE Abnormal NEGATIVE [facility] Work Phone: pH (U) 7.0 [pH] 5.0 - 8.0 [facility] Work Phone: Protein (U) [Mass/Vol] Negative NEGATIVE [facility] Work Phone: RBC (U) [#/Vol] Negative NEGATIVE [facility] Work Phone: Specific gravity (U) [Rel density] 1.036 1 above high threshold See Below [facility] [place] Work Phone: Comment on above: Reference Range: 1.0 05 - 1.035 URINALYSIS WITH CULTURE IF INDICATED Positive Abnormal NEGATIVE [facility] brendan [place] Work Phone: [phone] URINALYSIS WITH CULTURE IF INDICATED <2.0 0.0 - 1.9 [facility] brendan [place] Work Phone: [phone] URINALYSIS WITH CULTURE IF INDICATED Negative NEGATIVE [facility] brendan [place] Work Phone: [phone] URINALYSIS WITH CULTURE IF INDICATED HAZY CLEAR [facility] brendan [place] Work Phone: URINE CULTURE,BACTERIALon URINE CULTURE,BACTERIAL PATIENT: SHAJI ESQUIVEL LOCATION: [facility] BILL#: [id number] : 60 AGE: SEX: F ORDERED BY: ERICKSON HERNANDEZ SOURCE: URINE COLLECTED: 11/06/22 12:46 ANTIBIOTICS AT [place].: RECEIVED : 11/07/22 01:51 SITE: Bruno Garzon L T S URINE CULTURE,BACTERIAL FINAL 11/09/22 08:37 ISOLATE1 : Escherichia coli >100,000 CFU/ML Organism E coli Antibiotic BP INTRP Ampicillin S Ceftriaxone S Cefazolin S Ciprofloxacin S Nitrofurantoin S Gentamicin S Levofloxacin S Piperc/Tazobact S Trimeth/Sulfa S S=SUSCEPTIBLE I=INTERMEDIATE R=RESISTANT SDD=SUSCEPTIBLE DOSE DEPENDENT NS=NONSUSCEPTIBLE X=REPORTED IN ERROR Normal [facility] Comment on above: Performed By: #### U [facility] #### [facility] [address] [place] [address] Urinalysis, Microscopicon Urinalysis, Microscopic 1 {/HPF} [facility] [place] Work Phone: [phone] Urinalysis, Microscopic 3 {/HPF} 0-5 [facility] ritan [place] Work Phone: [phone] Urinalysis, Microscopic 16 {/HPF} Abnormal 0-5 [facility] Work Phone: [phone] CT C-SPINE WO CONTRASTon CT C-SPINE WO CONTRAST Patient Name: SHAJI ESQUIVEL STUDY: CT HEAD WO CONTRAST; CT FACIAL BONES; CT CORONAL/SAGITTAL/OBLIQU E RECON; CT C-SPINE WO CONTRAST; 10/07/2022 10:13 pm INDICATION: fall . COMPARISON: CT head and cervical spine 08/18/2022 ACCESSION NUMBER(S): [id number]; [id number]; [id number]; [id number] ORDERING CLINICIAN: OSIEL VERGARA TECHNIQUE: Axial noncontrast images of the head. Axial noncontrast images of the facial bones with coronal and sagittal reconstructed images. Axial noncontrast images of the cervical spine with coronal and sagittal reconstructed images. 3D reconstructions of the facial bones were generated at a separate workstation and reviewed. FINDINGS: BRAIN PARENCHYMA: Laguna-white matter interfaces are preserved. No mass effect or midline shift. Deep and periventricular white matter hypodensities are nonspecific, but favored to represent chronic small vessel ischemic changes. HEMORRHAGE: No acute intracranial hemorrhage. VENTRICLES and EXTRA-AXIAL SPACES: The ventricles and sulci are within normal limits in size for brain volume. No abnormal extraaxial fluid collection. EXTRACRANIAL SOFT TISSUES: Right frontal scalp soft tissue hematoma, increased in size from 08/18/2022. CALVARIUM: No depressed calvarial fracture. No destructive osseous lesion. FACIAL BONES: No acute facial bone fracture. SOFT TISSUES: Within normal limits. PARANASAL SINUSES: No hemorrhage in the paranasal sinuses. MASTOIDS: Within normal limits. ORBITS: The globes, extraocular muscles and optic nerve sheath complexes are symmetric. No retrobulbar hematoma. ALIGNMENT: Normal. VERTEBRAE: No acute fracture. SPINAL CANAL: No critical spinal canal stenosis. PREVERTEBRAL SOFT TISSUES: No prevertebral soft tissue swelling. LUNG APICES: Imaged portion of the lung apices are within normal limits. OTHER FINDINGS: None. IMPRESSION: No acute intracranial abnormality. No acute facial bone fracture. Enlarged or recurrent right frontal scalp soft tissue hematoma. No acute fracture or traumatic subluxation of the cervical spine. Electronically signed by: RENA ABBOTT MD [facility] CT FACIAL BONES W/O CONTRAST on 10-08-2022 CT FACIAL BONES W/O CONTRAST Patient Name: SHAJI ESQUIVEL STUDY: CT HEAD WO CONTRAST; CT FACIAL BONES; CT CORONAL/SAGITTAL/OBLIQU E RECON; CT C-SPINE WO CONTRAST; 10/07/2022 10:13 pm INDICATION: fall . COMPARISON: CT head and cervical spine 08/18/2022 ACCESSION NUMBER(S): [id number]; [id number]; [id number]; [id number] ORDERING CLINICIAN: OSIEL VERGARA TECHNIQUE: Axial noncontrast images of the head. Axial noncontrast images of the facial bones with coronal and sagittal reconstructed images. Axial noncontrast images of the cervical spine with coronal and sagittal reconstructed images. 3D reconstructions of the facial bones were generated at a separate workstation and reviewed. FINDINGS: BRAIN PARENCHYMA: Laguna-white matter interfaces are preserved. No mass effect or midline shift. Deep and periventricular white matter hypodensities are nonspecific, but favored to represent chronic small vessel ischemic changes. HEMORRHAGE: No acute intracranial hemorrhage. VENTRICLES and EXTRA-AXIAL SPACES: The ventricles and sulci are within normal limits in size for brain volume. No abnormal extraaxial fluid collection. EXTRACRANIAL SOFT TISSUES: Right frontal scalp soft tissue hematoma, increased in size from 08/18/2022. CALVARIUM: No depressed calvarial fracture. No destructive osseous lesion. FACIAL BONES: No acute facial bone fracture. SOFT TISSUES: Within normal limits. PARANASAL SINUSES: No hemorrhage in the paranasal sinuses. MASTOIDS: Within normal limits. ORBITS: The globes, extraocular muscles and optic nerve sheath complexes are symmetric. No retrobulbar hematoma. ALIGNMENT: Normal. VERTEBRAE: No acute fracture. SPINAL CANAL: No critical spinal canal stenosis. PREVERTEBRAL SOFT TISSUES: No prevertebral soft tissue swelling. LUNG APICES: Imaged portion of the lung apices are within normal limits. OTHER FINDINGS: None. IMPRESSION: No acute intracranial abnormality. No acute facial bone fracture. Enlarged or recurrent right frontal scalp soft tissue hematoma. No acute fracture or traumatic subluxation of the cervical spine. Electronically signed by: RENA ABBOTT MD [facility] CT HEAD WO CONTRASTon 2022 CT HEAD WO CONTRAST Patient Name: SHAJI ESQUIVEL STUDY: CT HEAD WO CONTRAST; CT FACIAL BONES; CT CORONAL/SAGITTAL/OBLIQU E RECON; CT C-SPINE WO CONTRAST; 10/07/2022 10:13 pm INDICATION: fall . COMPARISON: CT head and cervical spine 08/18/2022 ACCESSION NUMBER(S): [id number]; [id number]; [id number]; [id number] ORDERING CLINICIAN: OSIEL VERGARA TECHNIQUE: Axial noncontrast images of the head. Axial noncontrast images of the facial bones with coronal and sagittal reconstructed images. Axial noncontrast images of the cervical spine with coronal and sagittal reconstructed images. 3D reconstructions of the facial bones were generated at a separate workstation and reviewed. FINDINGS: BRAIN PARENCHYMA: Laguna-white matter interfaces are preserved. No mass effect or midline shift. Deep and periventricular white matter hypodensities are nonspecific, but favored to represent chronic small vessel ischemic changes. HEMORRHAGE: No acute intracranial hemorrhage. VENTRICLES and EXTRA-AXIAL SPACES: The ventricles and sulci are within normal limits in size for brain volume. No abnormal extraaxial fluid collection. EXTRACRANIAL SOFT TISSUES: Right frontal scalp soft tissue hematoma, increased in size from 08/18/2022. CALVARIUM: No depressed calvarial fracture. No destructive osseous lesion. FACIAL BONES: No acute facial bone fracture. SOFT TISSUES: Within normal limits. PARANASAL SINUSES: No hemorrhage in the paranasal sinuses. MASTOIDS: Within normal limits. ORBITS: The globes, extraocular muscles and optic nerve sheath complexes are symmetric. No retrobulbar hematoma. ALIGNMENT: Normal. VERTEBRAE: No acute fracture. SPINAL CANAL: No critical spinal canal stenosis. PREVERTEBRAL SOFT TISSUES: No prevertebral soft tissue swelling. LUNG APICES: Imaged portion of the lung apices are within normal limits. OTHER FINDINGS: None. IMPRESSION: No acute intracranial abnormality. No acute facial bone fracture. Enlarged or recurrent right frontal scalp soft tissue hematoma. No acute fracture or traumatic subluxation of the cervical spine. Electronically signed by: RENA ABBOTT MD [facility] CT IMAGE RECONSTRUCTION 3D V OLUME and MIPon 10-08-2022 CT IMAGE RECONSTRUCTION 3D VOLUME and MIP Patient Name: SHAJI ESQUIVEL STUDY: CT HEAD WO CONTRAST; CT FACIAL BONES; CT CORONAL/SAGITTAL/OBLIQU E RECON; CT C-SPINE WO CONTRAST; 10/07/2022 10:13 pm INDICATION: fall . COMPARISON: CT head and cervical spine 08/18/2022 ACCESSION NUMBER(S): [id number]; [id number]; [id number]; [id number] ORDERING CLINICIAN: OSIEL VERGARA TECHNIQUE: Axial noncontrast images of the head. Axial noncontrast images of the facial bones with coronal and sagittal reconstructed images. Axial noncontrast images of the cervical spine with coronal and sagittal reconstructed images. 3D reconstructions of the facial bones were generated at a separate workstation and reviewed. FINDINGS: BRAIN PARENCHYMA: Laguna-white matter interfaces are preserved. No mass effect or midline shift. Deep and periventricular white matter hypodensities are nonspecific, but favored to represent chronic small vessel ischemic changes. HEMORRHAGE: No acute intracranial hemorrhage. VENTRICLES and EXTRA-AXIAL SPACES: The ventricles and sulci are within normal limits in size for brain volume. No abnormal extraaxial fluid collection. EXTRACRANIAL SOFT TISSUES: Right frontal scalp soft tissue hematoma, increased in size from 08/18/2022. CALVARIUM: No depressed calvarial fracture. No destructive osseous lesion. FACIAL BONES: No acute facial bone fracture. SOFT TISSUES: Within normal limits. PARANASAL SINUSES: No hemorrhage in the paranasal sinuses. MASTOIDS: Within normal limits. ORBITS: The globes, extraocular muscles and optic nerve sheath complexes are symmetric. No retrobulbar hematoma. ALIGNMENT: Normal. VERTEBRAE: No acute fracture. SPINAL CANAL: No critical spinal canal stenosis. PREVERTEBRAL SOFT TISSUES: No prevertebral soft tissue swelling. LUNG APICES: Imaged portion of the lung apices are within normal limits. OTHER FINDINGS: None. IMPRESSION: No acute intracranial abnormality. No acute facial bone fracture. Enlarged or recurrent right frontal scalp soft tissue hematoma. No acute fracture or traumatic subluxation of the cervical spine. Electronically signed by: RENA ABBOTT MD [facility] Provider Note - ED v3on 05-0 Provider Note - ED v3 Provider Note: Chart Review: ED NOTES ED NOTES: HPI: Is a 62-year-old female presents with a chief complaint swelling above the right following a mechanical fall. Patient is not on blood thinners. She was reaching over to pick something up from her wheelchair and she fell forward. History of frequent falls. Patient is not a good historian and all history was presented by patient's client experience manager at the senior care and EMS. ROS: All systems are negative other than as noted in HPI. Physical Exam Constitutional: Well developed, No acute distress EYES: Sclera non-icteric. Conjunctiva not injected. No discharge. HENT: Right-sided forehead swelling with abrasion. moist mucous membranes. Posterior oropharynx non-erythematous, no tonsillar exudates. TMs clear bilaterally, canals normal. No cervical LAD. Neck supple without meningismus. CV: Regular rate and rhythm, Resp: No respiratory distress. Lungs clear bilaterally. GI: Normoactive bowel sounds. Soft, non tender, no masses or organomegaly appreciated. :. MSK: No gross deformities appreciated. Moves all extremities Neuro: Alert, age appropriate. Normal muscle tone. Moving all extremities. Skin: No rashes. HISTORY OF PRESENTING ILLNESS SHAJI is a 62 year old Female and was seen by me at 07-Oct-2022 21:07 for a chief complaint of fall (pt here via EMS from senior care, pt was reaching over to pick something up from wheelchair and fell forward onto head/face. Pt has bruising and swelling noted to R forehead, pt at baseline per staff. No LOC, not on blood thinners.)(1). Triage Information: Most recent Vital Sign Value Date Temp (F): 98.3 10-07-2022 20:58 Temp (C): 36.8 10-07-2022 20:58 Heart Rate (beats/min): 93 10-07-2022 20:58 Respirations (breaths/min): 18 10-07-2022 20:58 SpO2 (%): 96 10-07-2022 20:58 BP Systolic (mm Hg): 156 10-07-2022 20:58 BP Diastolic (mm Hg): 78 10-07-2022 20:58 PAST MEDICAL HISTORY ALLERGIES/INTOLERANCES: No Known Allergies HEALTH HISTORY: No documented data. OUTPATIENT MEDICATIONS: Home Medications Review Status for Reconciliation: Incomplete Med Status: Incomplete Medication History Drug Name: acetaminophen 500 mg oral tablet Instructions: 2 tab(s) orally every 6 hours, As Needed Drug Name: atorvastatin 10 mg oral tablet Instructions: 1 tab(s) orally once a day Drug Name: amLODIPine 2.5 mg oral tablet Instructions: 1 tab(s) orally once a day Drug Name: benacalorie Instructions: Give 1 packet mixed in food or liquid 3 times daily as needed for meal intake less then 50% Drug Name: benztropine 1 mg oral tablet Instructions: 1 tab(s) orally 2 times a day Drug Name: carbidopa-levodopa 25 mg-100 mg oral tablet Instructions: 1 tab(s) orally 3 times a day Drug Name: docusate sodium 100 mg oral capsule Instructions: 1 cap(s) orally 2 times a day Drug Name: hyoscyamine 0.125 mg oral tablet Instructions: 1 tab(s) orally once a day, As Needed Drug Name: Januvia 100 mg oral tablet Instructions: 1 tab(s) orally once a day Drug Name: levothyroxine 75 mcg (0.075 mg) oral tablet Instructions: 1 tab(s) orally once a day Drug Name: Melatonin 3 mg oral tablet Instructions: 1 tab(s) orally once a day (at bedtime) Drug Name: metFORMIN 500 mg oral tablet, extended release Instructions: 1 tab(s) orally 3 times a day Drug Name: mirtazapine 30 mg oral tablet, disintegrating Instructions: 1 tab(s) orally once a day (at bedtime) Drug Name: Multiple Vitamins with Minerals oral tablet Instructions: 1 tab(s) orally once a day Drug Name: OLANZapine 10 mg oral tablet Instructions: 1 tab(s) orally once a day Drug Name: omeprazole 40 mg oral delayed release capsule Instructions: 1 cap(s) orally once a day Drug Name: polyethylene glycol 3350 oral powder for reconstitution Instructions: 1 dose(s) orally once a day Drug Name: Senexon-S 50 mg-8.6 mg oral tablet Instructions: 1 tab(s) orally once a day Drug Name: potassium chloride 10 mEq oral tablet, extended release Instructions: 1 tab(s) orally once a day Drug Name: cephalexin 500 mg oral tablet Instructions: 1 tab(s) orally 2 times a day x 5 days SIGNIFICANT EVENTS: Immunizations Description:Tdap Past Medical History Description:parkinsons Description:Hypertensio n (HTN) Description:Schizophren ia Description:depression Description:Gastroesoph ageal Reflux Disorder (GERD) Description:Anemia Description:Kidney disease Description:Diabetes-ty pe 2 Description:Hypothyroid Description:moderate intellectual disabilities CRITICAL CARE RESULTS: Radiology Results: Impression: No acute intracranial abnormality. No acute facial bone fracture. Enlarged or recurrent right frontal scalp soft tissue hematoma. No acute fracture or traumatic subluxation of the cervical spine. CT C Spine without Contrast [October 07 (more content not included)... Normal [facility] Risk Screen - Adult Emergenc yon 10-07-2022 Risk Screen - Adult Emergency Preferred Language: Preferred Language: Preferred Language for Discussing Health Care (patient/designee)Samara olea Patient Preferred Pharmacy: Patient Preferred Pharmacy Statement: I have reviewed and updated the patient's preferred pharmacy selection for today's visit. Advanced Directives: Advance Directive/DNRyes Family Violence Adult: Abuse Screen: Are you or have you been threatened or abused physically, emotionally, or sexually by anyoneno Learning Assessment (Patient): Learning Assessment (Patient): Patient is Able to be Assessed for Learningyes Factors Influencing Readiness to Learnacuteness of illness Factors that Impact Ability to Learnnone Devices/Methods Used to Communicatenone Learning Preferenceswritten material; verbal instruction Cultural Considerationsnone Developmental Considerationsnone Mormon Considerationsnone Learning Assessment (Other Learner): Learning Assessment (Other Learner): Other learner availableno Pressure Injury/TB/Substance: Pressure Injury: Do you have a coughno Smoking Statusnever smoker Admission Risk Screen: Significant IndicatorsComplete CAGE: CAGE: Is this an injured patient at a Trauma Center ([facility]/[place]): no Electronic Signatures: Lakshmi Aguayo (RN) (Signed 07-Oct-2022 21:02) Authored: Preferred Language, Patient Preferred Pharmacy, Advanced Directives, Family Violence Adult, Learning Assessment (Patient), Learning Assessment (Other Learner), Pressure Injury/TB/Substance, Pressure Injury, CAGE Last Updated: 07-Oct-2022 21:02 by Lakshmi Aguayo (RN) [facility] Triage - EDon 10-07-2022 Triage - ED Chart Review: ARRIVAL INFORMATION Mode of Arrival: ambulance Agency Name: [facility] CHIEF COMPLAINT SHAJI ESQUIVEL is a Female patient with a chief complaint of fall (pt here via EMS from senior care, pt was reaching over to pick something up from standing and fell forward onto head/face. Pt has bruising and swelling noted to R forehead, pt at baseline per staff. No LOC, not on blood thinners.). Triage Date/Time: 07-Oct-2022 20:58 CALLIE: 3V Pain Rating (0-10): unable to assess Vital Signs: Temperature: 98.3F ( 36.8C) taken noncontact, forehead Blood Pressure: 156/78 Mean: Heart Rate: 93 Respiratory Rate: 18 Pulse Oximetry: 96% on room air, no respiratory support. [place] Coma Scale: Best Eye Response: (E4) spontaneous Best Motor Response: (M6) obeys commands Best Verbal Response: (V5) oriented [place] Score: 15 Patient has homicidal thoughts: no Risk Screens Suicide Risk Screen In the Past Month: Have you wished you were or wished you could go to sleep and not wake up no In the Past Month: Have you had any actual thoughts of killing yourself no In Your Lifetime: Have you ever done anything, started to do anything, or prepared to do anything to end your life no Interventions: [place]son Fall Interventions: HIGH INTERVENTIONS *Low and Moderate Interventions Plus: * supervised toileting at all times TRAVEL HISTORY Travel History Coronavirus Screening: no exposure or symptoms Travel Exposure History: NO travel to International locations in the past 30 days PAIN Pain Scale Used: KD Pain Rating (0-10): unable to assess Past Medical History: Past Medical History Reviewedyes Electronic Signatures: Lakshmi Aguayo (RN) (Signed 07-Oct-2022 21:24) Authored: Quick Triage, Risk Screens, Pain, Travel History, Chart Review, Scores, Past Medical History Last Updated: 07-Oct-2022 21:24 by Lakshmi Aguayo) [facility] Clinical Event Note-ED Post Discharge Result Follow Up: Atteon 08-22-2022 Clinical Event Note-ED Post Discharge Result Follow Up: Atte Clinical Event: Clinical Event Note: TopicED Post Discharge Result Follow Up: Attempt # 2, Pending, urine: E coli Details Number Contacted: Primary (UTR) and Sandrita Estevez (LVM) Second attempt made to contact patient regarding a positive urine culture that was taken during their recent emergency room visit. This is a non-life threatening result, but the patient is not receiving proper treatment at this time. A certified letter will be sent to the following address to inform the patient about these results and how to follow up. [address] [place] [address] [place] [place], [facility] Would recommend DC Keflex and start Bactrim. If there are any other questions for the ED Post-Discharge Culture Follow Up Team, please contact [phone]. . Ann Cardoza PharmD, [facility] Clinical Pharmacist - Culture Callback Pharmacist [facility] Electronic Signatures: Ann Cardoza (PharmAmeena) (Signed 22-Aug-2022 09:09) Authored: Clinical Event Note Last Updated: 22-Aug-2022 09:09 by Ann Cardoza (PharmAmeena) [facility] Clinical Event Note-ED Post Discharge Result Follow Up: Compon 08-22-2022 Clinical Event Note-ED Post Discharge Result Follow Up: Comp Clinical Event: Clinical Event Note: TopicED Post Discharge Result Follow Up: Complete : Urine : E. coli Details Contact: Anne (patient's nurse) I reviewed the results of a positive urine culture that was collected from the patient in the emergency room. The patient was discharged back their senior care. The Culture Callback Team will turn over care to attending providers at the facility. No further follow up is necessary. Nurse returning call after attempted phone call on 08/20 & regarding positive urine cultures. Patient is not being treated appropriately with cephalexin. Patient made aware that if they experience any signs/symptoms of a worsening infection to go to ED for further evaluation. Patient verbalized understanding and had no further questions or concerns. If there are any other questions for the ED Post-Discharge Culture Follow Up Team, please contact [phone]. . Ramón Kimble PharmD PGY1 Administrative Assistant Culture Callback Pharmacist [facility] Electronic Signatures: Ramón Kimble ([facility]) (Signed 22-Aug-2022 09:48) Authored: Clinical Event Note Ann CardozaPharmAmeena) (Signed 23-Aug-2022 08:16) Co-Signer: Clinical Event Note Last Updated: 23-Aug-2022 08:16 by Ann CardozaPharmAmeena) [facility] Clinical Event Note-ED Post Discharge Result Follow Up: Atteon 08-21-2022 Clinical Event Note-ED Post Discharge Result Follow Up: Atte Clinical Event: Clinical Event Note: TopicED Post Discharge Result Follow Up: Attempt 1, Pending: Urine: E.coli Details Number Contacted: Primary Attempted to contact patient regarding a positive urine culture that was taken during their recent emergency room visit. This is a non-life threatening result, but the patient is not receiving proper treatment at this time. Will try to contact the patient again in 24 hours. If there are any other questions for the ED Post-Discharge Culture Follow Up Team, please contact [phone]. . Angeles Rai PharmD [facility] PGY1 Administrative Assistant Electronic Signatures: Angeles [facility]) (Signed 21-Aug-2022 14:15) Authored: Clinical Event Note Ann CardozaPharmAmeena) (Signed 22-Aug-2022 08:22) Co-Signer: Clinical Event Note Last Updated: 22-Aug-2022 08:22 by Ann Cardoza (PharmD) [facility] BASIC METABOLIC PANELon 03- Anion gap [Moles/Vol] 14 mmol/L Normal 10 - 20 [facility] Comment on above: Performed By: #### B MP #### [address] [address] Calcium [Mass/Vol] 9.0 mg/dL Normal 8.6 - 10.3 [facility] Comment on above: Performed By: #### B MP #### [address] [address] Chloride [Moles/Vol] 110 mmol/L High 98 - 107 [facility] Comment on above: Performed By: #### B MP #### [address] [address] Creatinine [Mass/Vol] 0.78 mg/dL Normal 0.50 - 1.05 [facility] Comment on above: Performed By: #### B MP #### [address] [address] GFR/1.73 sq M.predicted among non-blacks MDRD (S/P/Bld) [Vol rate/Area] 86 mL/min/{1.73_m2} Normal >90 [facility] Comment on above: Result Comment: CALC ULATIONS OF ESTIMATED GFR ARE PERFORMED USING THE 2020 CKD-EPI STUDY REFIT EQUATION WITHOUT THE RACE VARIABLE FOR THE IDMS-TRACEABLE CREATININE METHODS. https://jasn.asnjournals.org/content//ASN.4531431 988 Performed By: #### B MP #### [address] [address] Glucose [Mass/Vol] 117 mg/dL High 74 - 99 [facility] Comment on above: Performed By: #### B MP #### [address] [address] HCO3 (Bld) [Moles/Vol] 25 mmol/L Normal 21 - 32 [facility] Comment on above: Performed By: #### B MP #### [address] [address] Potassium [Moles/Vol] 3.9 mmol/L Normal 3.5 - 5.3 [facility] Comment on above: Performed By: #### B MP #### [address] [address] Sodium [Moles/Vol] 145 mmol/L Normal 136 - 145 [facility] Comment on above: Performed By: #### B MP #### [address] [address] Urea nitrogen [Mass/Vol] 29 mg/dL High 6 - 23 [facility] Comment on above: Performed By: #### B MP #### [address] [address] CBC AND DIFFERENTIALon 08-18 % AUTOMATED IMMATURE GRAN 0.3 % Normal 0.0 - 0.9 [facility] Comment on above: Result Comment: Reina ture Granulocyte Count (IG) includes promyelocytes, myelocytes and metamyelocytes but does not include bands. Percent differential counts (%) should be interpreted in the context of the absolute cell counts (cells/L). Performed By: #### U RINC #### [facility] [address] [place] [address] Basophils (Bld) [#/Vol] 0.03 10*3/uL Normal 0.00 - 0.10 [facility] Comment on above: Performed By: #### U RINC #### [facility] [address] [place] [address] Basophils/100 WBC (Bld) 0.4 % Normal 0.0 - 2.0 [facility] Comment on above: Performed By: #### U RINC #### [facility] [address] [place] [address] Eosinophils (Bld) [#/Vol] 0.03 10*3/uL Normal 0.00 - 0.70 [facility] Comment on above: Performed By: #### U RINC #### [facility] [address] [place] [address] Eosinophils/100 WBC (Bld) 0.4 % Normal 0.0 - 6.0 [facility] Comment on above: Performed By: #### U RINC #### [facility] [address] [place] [address] Lymphocytes (Bld) [#/Vol] 1.31 10*3/uL Normal 1.20 - 4.80 [facility] Comment on above: Performed By: #### U RINC #### [facility] [address] [place] [address] Lymphocytes/100 WBC (Bld) 17.6 % Normal 13.0 - 44.0 [facility] Comment on above: Performed By: #### U RINC #### [facility] [address] [place] [address] Monocytes (Bld) [#/Vol] 0.46 10*3/uL Normal 0.10 - 1.00 [facility] Comment on above: Performed By: #### U RINC #### [facility] [address] [place] [address] Monocytes/100 WBC (Bld) 6.2 % Normal 2.0 - 10.0 [facility] Comment on above: Performed By: #### U RINC #### [facility] [address] [place] [address] Neutrophils (Bld) [#/Vol] 5.60 10*3/uL Normal 1.20 - 7.70 [facility] Comment on above: Result Comment: Perc ent differential counts (%) should be interpreted in the context of the absolute cell counts (cells/L). Performed By: #### U RINC #### [facility] [address] [place] [address] Neutrophils/100 WBC (Bld) 75.1 % Normal 40.0 - 80.0 [facility] Comment on above: Performed By: #### U RINC #### [facility] [address] [place] [address] Erythrocyte distribution width (RBC) [Ratio] 13.4 % Normal 11.5 - 14.5 [facility] Comment on above: Performed By: #### U RINC #### [facility] [address] [place] [address] Hematocrit (Bld) [Volume fraction] 41.4 % Normal 36.0 - 46.0 [facility] Comment on above: Performed By: #### U RINC #### [facility] [address] [place] [address] Hemoglobin (Bld) [Mass/Vol] 12.3 g/dL Normal 12.0 - 16.0 [facility] Comment on above: Performed By: #### U RINC #### [facility] [address] [place] [address] MCHC (RBC) [Mass/Vol] 29.7 g/dL Low 32.0 - 36.0 [facility] Comment on above: Performed By: #### U RINC #### [facility] [address] [place] [address] MCV (RBC) [Entitic vol] 94 fL Normal 80 - 100 [facility] Comment on above: Performed By: #### U RINC #### [facility] [address] [place] [address] Platelets (Bld) [#/Vol] 291 10*3/uL Normal 150 - 450 [facility] Comment on above: Performed By: #### U RINC #### [facility] [address] [place] [address] RBC 4.41 x10E12/L Normal 4.00 - 5.20 [facility] Comment on above: Performed By: #### U RINC #### [facility] [address] [place] [address] WBC (Bld) [#/Vol] 7.5 10*3/uL Normal 4.4 - 11.3 [facility] Comment on above: Performed By: #### U RINC #### [facility] [address] [place] [address] CT C-SPINE WO CONTRASTon CT C-SPINE WO CONTRAST Patient Name: SHAJI ESQUIVEL STUDY: CT C-SPINE WO CONTRAST; 08/18/2022 1:14 pm INDICATION: fall . COMPARISON: None. ACCESSION NUMBER(S): [id number] ORDERING CLINICIAN: SHARMAINE DEAN TECHNIQUE: Unenhanced axial images were obtained through the cervical spine. The axial data was utilized to reconstruct images in sagittal and coronal planes. FINDINGS: No acute fracture is identified. No subluxation is seen. Facet joints demonstrate a normal alignment. Prevertebral soft tissues are within normal limits. No lytic or blastic lesion is noted. Osteopenia. There are degenerative changes which include disc space narrowing, endplate spurring, endplate sclerosis, uncovertebral spurring, and posterior disc osteophyte complexes, most conspicuous at the C5-C6 level. There is diffuse facet arthrosis with hypertrophy. IMPRESSION: No evidence of an acute fracture or subluxation. Degenerative changes. Electronically signed by: MIKE PRICE MD [facility] CT HEAD WO CONTRASTon 2022 CT HEAD WO CONTRAST Patient Name: SHAJI ESQUIVEL STUDY: CT HEAD WO CONTRAST; 08/18/2022 1:14 pm INDICATION: fall . COMPARISON: 08/09/2022 ACCESSION NUMBER(S): [id number] ORDERING CLINICIAN: SHARMAINE DEAN TECHNIQUE: Unenhanced images were obtained through the brain. FINDINGS: There is atrophy resulting in prominence of the ventricles and sulci. There are areas of decreased attenuation within the white matter which are nonspecific but are commonly associated with small vessel ischemic disease. there is no mass effect or midline shift. No acute intracranial hemorrhage is identified. No extra-axial fluid collections are seen. No intraparenchymal mass lesions are identified. Bone windows demonstrate no evidence of an acute calvarial fracture. Small scalp hematoma and soft tissue swelling noted in the right frontal region. IMPRESSION: No evidence of an acute intracranial process. Electronically signed by: MIKE PRICE MD [facility] HAND MIN 3 VIEWSon 3 HAND MIN 3 VIEWS Patient Name: SHAJI ESQUIVEL STUDY: HAND MIN 3 VIEWS; Left; 08/18/2022 1:00 pm INDICATION: fall . COMPARISON: None. ACCESSION NUMBER(S): [id number] ORDERING CLINICIAN: SHARMAINE DEAN FINDINGS: Exam is limited by flexion of the fingers and inability to the remove a ring from the 4th digit. All no definite acute fracture within limits of this exam. IMPRESSION: No definite acute findings. Electronically signed by: HAO BELLO MD [facility] Provider Note - ED v3on 08-07 Provider Note - ED v3 Provider Note: Chart Review: ED NOTES ED NOTES: HPI: Patient brought to the emergency department by norah after reported fall at a local senior care. Per report from norah patient was sat at the bedside and nursing staff left the room and patient fell out of the bed hitting her forehead on the floor. They deny any loss of consciousness vomiting or vision changes. Patient is at her mental baseline and answering only yes or no questions. Patient unable to give any history other than saying her left hand hurts Medical/Family HX: MRDD Physical Exam I have reviewed the triage vital signs. Const: Well nourished, well developed, appears stated age, no acute distress Eyes: PERRL, EOM intact, no conjunctival injection, vision grossly normal HENT: Neck supple without meningismus , no complaints of neck tenderness over the cervical spine with palpation moist mucous membranes, no pharyengeal swelling or exudate CV: Regular rate and rhythm, Warm, well-perfused extremities. Chest non tender RESP: Lungs clear bilaterally, Unlabored respiratory effort GI: soft, non-tender, non-distended, no masses : MSK: No gross deformities appreciated diffuse tenderness of left hand. Back: Non tender, no pain with ROM Skin: Warm, dry. No rashes approximately a 3 cm diameter measures hematoma to the mid right forehead Neuro: Alert and oriented but only answers yes or no questions, GCS 15 , r d intern II-XII grossly intact. Sensation and motor function of extremities grossly intact. Psych: Appropriate mood and affect. I have reviewed and confirmed nurses/medics notes for patient past, social and family history. Portions of this note were dictated by speech recognition. An attempt at proof reading was made to minimize errors. Minor errors in robotic toy inventor may be present. HISTORY OF PRESENTING ILLNESS SHAJI is a 61 year old Female and was seen by me at 18-Aug-2022 12:37 for a chief complaint of fall (pt was sitting on side of bed and fell forward. unwitnessed. hematoma noted to forehead. caregiver reports pt had n/v/d earlier this week and has decreased intake)(1). Triage Information: Most recent Vital Sign Value Date Temp (F): 98.2 08-18-2022 12:37 Temp (C): 36.7 08-18-2022 12:37 Heart Rate (beats/min): 90 08-18-2022 12:37 Respirations (breaths/min): 18 08-18-2022 12:37 SpO2 (%): 96 08-18-2022 12:37 BP Systolic (mm Hg): 172 08-18-2022 12:37 BP Diastolic (mm Hg): 82 08-18-2022 12:37 PAST MEDICAL HISTORY ALLERGIES/INTOLERANCES: No Known Allergies HEALTH HISTORY: No documented data. OUTPATIENT MEDICATIONS: Home Medications Review Status for Reconciliation: Complete Med Status: Patient Currently Takes Medications Drug Name: acetaminophen 500 mg oral tablet Instructions: 2 tab(s) orally every 6 hours, As Needed Drug Name: atorvastatin 10 mg oral tablet Instructions: 1 tab(s) orally once a day Drug Name: amLODIPine 2.5 mg oral tablet Instructions: 1 tab(s) orally once a day Drug Name: benacalorie Instructions: Give 1 packet mixed in food or liquid 3 times daily as needed for meal intake less then 50% Drug Name: benztropine 1 mg oral tablet Instructions: 1 tab(s) orally 2 times a day Drug Name: carbidopa-levodopa 25 mg-100 mg oral tablet Instructions: 1 tab(s) orally 3 times a day Drug Name: docusate sodium 100 mg oral capsule Instructions: 1 cap(s) orally 2 times a day Drug Name: hyoscyamine 0.125 mg oral tablet Instructions: 1 tab(s) orally once a day, As Needed Drug Name: Januvia 100 mg oral tablet Instructions: 1 tab(s) orally once a day Drug Name: levothyroxine 75 mcg (0.075 mg) oral tablet Instructions: 1 tab(s) orally once a day Drug Name: Melatonin 3 mg oral tablet Instructions: 1 tab(s) orally once a day (at bedtime) Drug Name: metFORMIN 500 mg oral tablet, extended release Instructions: 1 tab(s) orally 3 times a day Drug Name: mirtazapine 30 mg oral tablet, disintegrating Instructions: 1 tab(s) orally once a day (at bedtime) Drug Name: Multiple Vitamins with Minerals oral tablet Instructions: 1 tab(s) orally once a day Drug Name: OLANZapine 10 mg oral tablet Instructions: 1 tab(s) orally once a day Drug Name: omeprazole 40 mg oral delayed release capsule Instructions: 1 cap(s) orally once a day Drug Name: polyethylene glycol 3350 oral powder for reconstitution Instructions: 1 dose(s) orally once a day Drug Name: Senexon-S 50 mg-8.6 mg oral tablet Instructions: 1 tab(s) orally once a day Drug Name: potassium chloride 10 mEq oral tablet, extended release Instructions: 1 tab(s) orally once a day SIGNIFICANT EVENTS: Immunizations Description:Tdap Past Medical History Description:parkinsons Description:Hypertensio n (HTN) Description:Schizophren ia Description:depression Description:Gastroesoph ageal Reflux Disorder (GERD) Description:Anemia (more content not included)... Normal [facility] Risk Screen - Adult Emergenc yon 08-18-2022 Risk Screen - Adult Emergency Preferred Language: Preferred Language: Preferred Language for Discussing Health Care (patient/designee)Samara olea Patient Preferred Pharmacy: Patient Preferred Pharmacy Statement: I have reviewed and updated the patient's preferred pharmacy selection for today's visit. Advanced Directives: Advance Directive/DNRno Family Violence Adult: Abuse Screen: Are you or have you been threatened or abused physically, emotionally, or sexually by anyoneunable to assess Clinical assessment: Are there any apparent signs of injuries/behaviors that could be related to abuse/neglectno Learning Assessment (Patient): Learning Assessment (Patient): Patient is Able to be Assessed for Learningno Reason Unable to Assessmentally impaired Learning Assessment (Other Learner): Learning Assessment (Other Learner): Other learner availableyes... Learnercaregiver Factors Influencing Readiness to Learnacuteness of illness Factors that Impact Ability to Learncognitive limitations Devices/Methods Used to Communicatenone Learning Preferencesaudio Cultural Considerationsnone Developmental Considerationsnone Mormon Considerationsnone Pressure Injury/TB/Substance: Pressure Injury: Do you have a coughno Smoking Statusnever smoker Alcohol Usedenies Drug Usedenies Admission Risk Screen: Significant IndicatorsComplete CAGE: CAGE: Is this an injured patient at a Trauma Center ([facility]/[place]): no Electronic Signatures: Anne Zavaleta) (Signed 18-Aug-2022 12:49) Authored: Preferred Language, Patient Preferred Pharmacy, Advanced Directives, Family Violence Adult, Learning Assessment (Patient), Learning Assessment (Other Learner), Pressure Injury/TB/Substance, Pressure Injury, CAGE Last Updated: 18-Aug-2022 12:49 by Anne Zavaleta (RN) [facility] Triage - EDon 08-18-2022 Triage - ED Chart Review: ARRIVAL INFORMATION Mode of Arrival: ambulance Agency Name: [facility] CHIEF COMPLAINT SHAJI ESQUIVEL is a Female patient with a chief complaint of fall (pt was sitting on side of bed and fell forward. unwitnessed. hematoma noted to forehead. caregiver reports pt had n/v/d earlier this week and has decreased intake). Triage Date/Time: 18-Aug-2022 12:37 CALLIE: 3 Pain Rating (0-10): unable to assess Vital Signs: Temperature: 98.2F ( 36.7C) Blood Pressure: 172/82 Mean: Heart Rate: 90 Respiratory Rate: 18 Pulse Oximetry: 96% on room air, no respiratory support. Weight: 133.3 pounds. Calculated 60.5 kg. Allergies: no Patient has homicidal thoughts: unable to assess Risk Screens Suicide Risk Screen In the Past Month: Have you wished you were or wished you could go to sleep and not wake up no In the Past Month: Have you had any actual thoughts of killing yourself no In Your Lifetime: Have you ever done anything, started to do anything, or prepared to do anything to end your life no Brunson Fall Scale Screening Has the patient fallen before (or is the patient in the ED as a result of a fall) has had a fall Does the patient have an impaired gait has impaired gait Is the patient cognitively impaired not cognitively impaired Brunson Fall Scale History of falling (immediate or previous) yes (25) Secondary Diagnosis yes (15) Intravenous Therapy/ Heparin/Saline Lock no (0) Gait/Transferring weak (10) Ambulatory Aids none/bedrest/nurse assist (0) Mental Status oriented to own ability (0) Brunson Fall Risk Score: 50 Interventions: Brunson Fall Interventions: HIGH INTERVENTIONS *Low and Moderate Interventions Plus: * supervised toileting at all times TRAVEL HISTORY Travel History Coronavirus Screening: no exposure or symptoms Travel Exposure History: NO travel to International locations in the past 30 days PAIN Pain Scale Used: KD Pain Rating (0-10): unable to assess Past Medical History: Past Medical History Reviewedyes moderate intellectual disabilities: Past Medical History, Active Hypothyroid: Past Medical History, Active Diabetes-type 2: Past Medical History, Active Kidney disease: Past Medical History, Active Anemia: Past Medical History, Active Gastroesophageal Reflux Disorder (GERD): Past Medical History, Active depression: Past Medical History, Active Schizophrenia: Past Medical History, Active Hypertension (HTN): Past Medical History, Active parkinsons: Past Medical History, Active Tdap: Immunizations, Active, 09-Aug-2022 Electronic Signatures: Anne Zavaleta (RN) (Signed 18-Aug-2022 12:48) Entered: Risk Screens, Pain, Travel History, Chart Review, Scores, Past Medical History Authored: Quick Triage, Risk Screens, Pain, Travel History, Chart Review, Scores, Past Medical History Last Updated: 18-Aug-2022 12:48 by Anne Zavaleta ([place]) Normal [facility] UA MICROSCOPICon 08-18-2022 BACTERIA 4+ /HPF Abnormal [facility] Comment on above: Performed By: #### U RINC #### [facility] [address] [place] [address] Mucus Ql (Urine sed) 3+ /LPF Normal [facility] Comment on above: Performed By: #### U RINC #### [facility] [address] [place] [address] RBC 2 /HPF Normal 0-5 [facility] Comment on above: Performed By: #### U RINC #### [facility] [address] [place] [address] SQUAMOUS EPITH. CELLS 1 /HPF Normal [facility] Comment on above: Performed By: #### U RINC #### [facility] [address] [place] [address] WBC 18 /HPF Abnormal 0-5 [facility] Comment on above: Performed By: #### U RINC #### [facility] [address] [place] [address] URINALYSIS WITH CULTURE IF I NDICATEDon 08-18-2022 Appearance (U) HAZY Normal CLEAR [facility] Comment on above: Performed By: #### U ARFX #### [facility] [address] [place] [address] Bilirubin Ql (U) Negative Normal NEGATIVE [facility] Comment on above: Performed By: #### U ARFX #### [place] [address] Color (U) Serenity Normal STRAW,YELLOW [facility] Comment on above: Performed By: #### U ARFX #### [place] [address] Glucose Ql (U) Negative Normal NEGATIVE [facility] Comment on above: Performed By: #### U ARFX #### [place] [address] Hemoglobin Ql (U) Negative Normal NEGATIVE [facility] Comment on above: Performed By: #### U ARFX #### [place] [address] Ketones Ql (U) 20(1+) Abnormal NEGATIVE [facility] Comment on above: Performed By: #### U ARFX #### [place] [address] Leukocyte esterase Test strip Ql (U) TRACE Abnormal NEGATIVE [facility] Comment on above: Performed By: #### U ARFX #### [place] [address] Nitrite Ql (U) Positive Abnormal NEGATIVE [facility] Comment on above: Performed By: #### U ARFX #### [place] [address] pH (U) 5.0 [pH] Normal 5.0 - 8.0 [facility] Comment on above: Performed By: #### U ARFX #### [place] [address] Protein Ql (U) 30(1+) Abnormal NEGATIVE [facility] Comment on above: Performed By: #### U ARFX #### [place] [address] Specific gravity (U) [Rel density] 1.029 Normal 1.005 - 1.035 [facility] Comment on above: Performed By: #### U ARFX #### [place] [address] Urobilinogen (U) [Mass/Vol] 2.0 mg/dL High 0.0 - 1.9 [facility] Comment on above: Result Comment: Due to a manufacturing issue, low positive urobilinogen results may be falsely positive. Correlate with urine bilirubin and additional clinical/laboratory findings to assess the risk of hemolytic anemia or liver disease. If clinically indicated, repeat testing with an alternate method is available by contacting the laboratory within 24 hours. . Some pigments and medications may cause a false positive urobilinogen. Performed By: #### U ARFX #### [place] [address] Lab Specimen Source Normal [facility] Comment on above: Performed By: #### U ARFX #### [place] [address] Performed By: #### U RINC #### [facility] [address] [place] [address] URINE CULTURE,BACTERIALon URINE CULTURE,BACTERIAL PATIENT: SHAJI ESQUIVEL [facility] [id number] : 60 AGE: SEX: F ORDERED BY: SHARMAINE DEAN SOURCE: URINE COLLECTED: 08/18/22 14:07 ANTIBIOTICS AT [facility].: RECEIVED : 08/18/22 19:46 SITE: R E S U L T S URINE CULTURE,BACTERIAL FINAL 08/20/22 10:00 ISOLATE1 : Escherichia coli >100,000 CFU/ML Organism E coli Antibiotic BP INTRP Ampicillin R Amox/Clavulanate R Ceftriaxone S Cefazolin R Ciprofloxacin S Nitrofurantoin S Gentamicin S Levofloxacin S Piperc/Tazobact S Trimeth/Sulfa S S=SUSCEPTIBLE I=INTERMEDIATE R=RESISTANT SDD=SUSCEPTIBLE DOSE DEPENDENT NS=NONSUSCEPTIBLE X=REPORTED IN ERROR Normal [facility] Comment on above: Performed By: #### U [facility] ####[id number] [place] [address] CT C-SPINE WO CONTRASTon CT C-SPINE WO CONTRAST Addendum Begins Patient Name: SHAJI ESQUIVEL ADDENDUM: 3D volume rendered images were provided and reviewed. Electronically signed by: ZULEMA BRAXTON MD Addendum Ends Patient Name: SHAJI ESQUIVEL STUDY: CT HEAD WO CONTRAST; CT FACIAL BONES; CT C-SPINE WO CONTRAST; 08/09/2022 10:10 am INDICATION: head injury ; fall with injury . COMPARISON: None. ACCESSION NUMBER(S): [id number]; [id number]; [id number] ORDERING CLINICIAN: ERICKSON HERNANDEZ TECHNIQUE: Noncontrast axial CT scan of head was performed. Angled reformats in brain and bone windows were generated. The images were reviewed in bone, brain, blood and soft tissue windows. FINDINGS: Head and facial bones: There is no intra/extra-axial fluid collection, mass effect, or midline shift. The laguna/white matter junction is preserved. Hypoattenuation of periventricular and subcortical white matter suggestive of chronic small vessel ischemic disease. Mild diffuse parenchymal volume loss is noted. The basal cisterns are patent. The bilateral globes are intact. Polyps versus retention cysts are seen in the left sphenoid sinus and bilateral ethmoid air cells. There is no acute fracture or dislocation in the facial and cranial bones. Cervical spine: The bones are somewhat osteopenic. Mild multilevel cervical spondylosis is seen. There is no definite acute fracture or subluxation in the cervical spine. Prevertebral soft tissues are unremarkable. The thyroid gland is heterogeneous and likely contains small nodules. There is vascular calcification. No apical pneumothorax is seen. IMPRESSION: No evidence of acute cortical infarct or intracranial hemorrhage. No acute fracture or dislocation in the facial and cranial bones. Suggestion of small ill-defined thyroid nodules. Ultrasound may be obtained for further evaluation. No acute fracture or subluxation in the cervical spine. Electronically signed by: ZULEMA BRAXTON MD [facility] CT FACIAL BONES W/O CONTRAST on 08-09-2022 CT FACIAL BONES W/O CONTRAST Addendum Begins Patient Name: SHAJI ESQUIVEL ADDENDUM: 3D volume rendered images were provided and reviewed. Electronically signed by: ZULEMA BRAXTON MD Addendum Ends Patient Name: ADONAY SHAJI STUDY: CT HEAD WO CONTRAST; CT FACIAL BONES; CT C-SPINE WO CONTRAST; 08/09/2022 10:10 am INDICATION: head injury ; fall with injury . COMPARISON: None. ACCESSION NUMBER(S): [id number]; [id number]; [id number] ORDERING CLINICIAN: ERICKSON HERNANDEZ TECHNIQUE: Noncontrast axial CT scan of head was performed. Angled reformats in brain and bone windows were generated. The images were reviewed in bone, brain, blood and soft tissue windows. FINDINGS: Head and facial bones: There is no intra/extra-axial fluid collection, mass effect, or midline shift. The laguna/white matter junction is preserved. Hypoattenuation of periventricular and subcortical white matter suggestive of chronic small vessel ischemic disease. Mild diffuse parenchymal volume loss is noted. The basal cisterns are patent. The bilateral globes are intact. Polyps versus retention cysts are seen in the left sphenoid sinus and bilateral ethmoid air cells. There is no acute fracture or dislocation in the facial and cranial bones. Cervical spine: The bones are somewhat osteopenic. Mild multilevel cervical spondylosis is seen. There is no definite acute fracture or subluxation in the cervical spine. Prevertebral soft tissues are unremarkable. The thyroid gland is heterogeneous and likely contains small nodules. There is vascular calcification. No apical pneumothorax is seen. IMPRESSION: No evidence of acute cortical infarct or intracranial hemorrhage. No acute fracture or dislocation in the facial and cranial bones. Suggestion of small ill-defined thyroid nodules. Ultrasound may be obtained for further evaluation. No acute fracture or subluxation in the cervical spine. Electronically signed by: ZULEMA BRAXTON MD [facility] CT HEAD WO CONTRASTon 2022 CT HEAD WO CONTRAST Addendum Begins Patient Name: SHAJI ESQUIVEL ADDENDUM: 3D volume rendered images were provided and reviewed. Electronically signed by: ZULEMA BRAXTON MD Addendum Ends Patient Name: SHAJI ESQUIVEL STUDY: CT HEAD WO CONTRAST; CT FACIAL BONES; CT C-SPINE WO CONTRAST; 08/09/2022 10:10 am INDICATION: head injury ; fall with injury . COMPARISON: None. ACCESSION NUMBER(S): [id number]; [id number]; [id number] ORDERING CLINICIAN: ERICKSON HERNANDEZ TECHNIQUE: Noncontrast axial CT scan of head was performed. Angled reformats in brain and bone windows were generated. The images were reviewed in bone, brain, blood and soft tissue windows. FINDINGS: Head and facial bones: There is no intra/extra-axial fluid collection, mass effect, or midline shift. The laguna/white matter junction is preserved. Hypoattenuation of periventricular and subcortical white matter suggestive of chronic small vessel ischemic disease. Mild diffuse parenchymal volume loss is noted. The basal cisterns are patent. The bilateral globes are intact. Polyps versus retention cysts are seen in the left sphenoid sinus and bilateral ethmoid air cells. There is no acute fracture or dislocation in the facial and cranial bones. Cervical spine: The bones are somewhat osteopenic. Mild multilevel cervical spondylosis is seen. There is no definite acute fracture or subluxation in the cervical spine. Prevertebral soft tissues are unremarkable. The thyroid gland is heterogeneous and likely contains small nodules. There is vascular calcification. No apical pneumothorax is seen. IMPRESSION: No evidence of acute cortical infarct or intracranial hemorrhage. No acute fracture or dislocation in the facial and cranial bones. Suggestion of small ill-defined thyroid nodules. Ultrasound may be obtained for further evaluation. No acute fracture or subluxation in the cervical spine. Electronically signed by: ZULEMA BRAXTON MD [facility] CT IMAGE RECONSTRUCTION 3D V OLUME and MIPon 08-09-2022 CT IMAGE RECONSTRUCTION 3D VOLUME and MIP Addendum Begins Patient Name: SHAJI ESQUIVEL ADDENDUM: 3D volume rendered images were provided and reviewed. Electronically signed by: ZULEMA BRAXTON MD Addendum Ends Patient Name: SHAJI ESQUIVEL STUDY: CT HEAD WO CONTRAST; CT FACIAL BONES; CT C-SPINE WO CONTRAST; 08/09/2022 10:10 am INDICATION: head injury ; fall with injury . COMPARISON: None. ACCESSION NUMBER(S): [id number]; [id number]; [id number] ORDERING CLINICIAN: ERICKSON HERNANDEZ TECHNIQUE: Noncontrast axial CT scan of head was performed. Angled reformats in brain and bone windows were generated. The images were reviewed in bone, brain, blood and soft tissue windows. FINDINGS: Head and facial bones: There is no intra/extra-axial fluid collection, mass effect, or midline shift. The laguna/white matter junction is preserved. Hypoattenuation of periventricular and subcortical white matter suggestive of chronic small vessel ischemic disease. Mild diffuse parenchymal volume loss is noted. The basal cisterns are patent. The bilateral globes are intact. Polyps versus retention cysts are seen in the left sphenoid sinus and bilateral ethmoid air cells. There is no acute fracture or dislocation in the facial and cranial bones. Cervical spine: The bones are somewhat osteopenic. Mild multilevel cervical spondylosis is seen. There is no definite acute fracture or subluxation in the cervical spine. Prevertebral soft tissues are unremarkable. The thyroid gland is heterogeneous and likely contains small nodules. There is vascular calcification. No apical pneumothorax is seen. IMPRESSION: No evidence of acute cortical infarct or intracranial hemorrhage. No acute fracture or dislocation in the facial and cranial bones. Suggestion of small ill-defined thyroid nodules. Ultrasound may be obtained for further evaluation. No acute fracture or subluxation in the cervical spine. Electronically signed by: ZULEMA BRAXTON MD [facility] Provider Note - ED v3on 03-0 Provider Note - ED v3 Provider Note: Chart Review: ED NOTES ED NOTES: Limitations to History: MRDD HPI: 61-year-old female presents with concern for head injury. Patient had an unwitnessed fall. Patient last seen 10 minutes prior to fall. No evidence of head injury. Patient has no complaints. Additional History Obtained from: Caregiver at bedside. Physical Exam: VS: As documented in the triage note and EMR flowsheet from this visit were reviewed. Appearance: Alert. cooperative, in no acute distress. Skin: Right supraorbital laceration. Venous oozing. Eyes: PERRLA, EOMs intact, Conjunctiva pink with no redness or exudates. HENT: Normocephalic, atraumatic. Nares patent. No intraoral lesions. Neck: Supple, without meningismus. Trachea at midline. No lymphadenopathy. Pulmonary: Clear bilaterally with good chest wall excursion. No rales, rhonchi or wheezing. No accessory muscle use or stridor. Cardiac: Regular rate and rhythm, no rubs, murmurs, or gallops. Abdomen: Abdomen is soft, nontender, and nondistended. No palpable organomegaly. No rebound or guarding. No CVA tenderness. Nonsurgical abdomen Genitourinary: Exam deferred. Musculoskeletal: Full range of motion. Pulses full and equal. No cyanosis, clubbing, or edema. Neurological: Cranial nerves are grossly intact, grossly normal sensation, no weakness, no focal findings identified. Psychiatric: Appropriate mood and affect. HISTORY OF PRESENTING ILLNESS SHAJI is a 61 year old Female and was seen by me at 09-Aug-2022 09:23 for a chief complaint of fall (unwitnessed fall in patient's bedroom, lac to right eye brow, denies thinners.)(1). Triage Information: Most recent Vital Sign Value Date Temp (F): 98.1 08-09-2022 09:23 Temp (C): 36.7 08-09-2022 09:23 Heart Rate (beats/min): 76 08-09-2022 09:23 Respirations (breaths/min): 18 08-09-2022 09:23 SpO2 (%): 98 08-09-2022 09:23 BP Systolic (mm Hg): 151 08-09-2022 09:23 BP Diastolic (mm Hg): 75 08-09-2022 09:23 PAST MEDICAL HISTORY ALLERGIES/INTOLERANCES: No Known Allergies HEALTH HISTORY: No documented data. OUTPATIENT MEDICATIONS: Home Medications Review Status for Reconciliation: N/A Med Status: Patient Currently Takes Medications Drug Name: diazePAM 2 mg oral tablet Instructions: null Drug Name: atorvastatin Instructions: null Drug Name: levothyroxine Instructions: null Drug Name: metFORMIN Instructions: null Drug Name: lisinopril Instructions: null Drug Name: mirtazapine Instructions: null Drug Name: OLANZapine Instructions: null Drug Name: omeprazole Instructions: null Drug Name: potassium acetate Instructions: null SIGNIFICANT EVENTS: Immunizations Description:Tdap CRITICAL CARE RESULTS: Radiology Results: Impression: No evidence of acute cortical infarct or intracranial hemorrhage. No acute fracture or dislocation in the facial and cranial bones. Suggestion of small ill-defined thyroid nodules. Ultrasound may be obtained for further evaluation. No acute fracture or subluxation in the cervical spine. CT Facial Bones [Aug 09 2022 10:47AM] Impression: No evidence of acute cortical infarct or intracranial hemorrhage. No acute fracture or dislocation in the facial and cranial bones. Suggestion of small ill-defined thyroid nodules. Ultrasound may be obtained for further evaluation. No acute fracture or subluxation in the cervical spine. CT C Spine without Contrast [Aug 09 2022 10:47AM] Impression: No evidence of acute cortical infarct or intracranial hemorrhage. No acute fracture or dislocation in the facial and cranial bones. Suggestion of small ill-defined thyroid nodules. Ultrasound may be obtained for further evaluation. No acute fracture or subluxation in the cervical spine. CT Head without Contrast [Aug 09 2022 10:47AM] VITAL SIGNS: T PRBP SpO2O2(LPM) %FiO2 Method 09-Aug-2022 09:23:[id number]/75 98 room air, no respiratory support MDM MDM/ED COURSE: Medical Decision Making: Patient appears well nontoxic. Vital signs within normal limits. Laceration repaired by nurse practitioner. To be removed in [address] brain, cervical spine, facial bones shows no acute traumatic injury. Evidence of a small thyroid nodule which patient was made aware and will be given follow-up instructions. Stable at time of discharge. Differential Diagnoses Considered: Closed head injury, facial laceration, intracranial hemorrhage Chronic Medical Conditions Significantly Affecting Care: MRDD Independent Interpretation of Studies: I independently interpreted: CT brain, cervical spine, facial bones reviewed and agree with radiology interpretation of no acute traumatic injury. Escalation of Care: (more content not included)... Normal [facility] Risk Screen - Adult Emergenc yon 08-09-2022 Risk Screen - Adult Emergency Preferred Language: Preferred Language: Preferred Language for Discussing Health Care (patient/designee)Samara olea Patient Preferred Pharmacy: Patient Preferred Pharmacy Statement: I have reviewed and updated the patient's preferred pharmacy selection for today's visit. Advanced Directives: Advance Directive/DNRno Family Violence Adult: Abuse Screen: Are you or have you been threatened or abused physically, emotionally, or sexually by anyoneno Learning Assessment (Patient): Learning Assessment (Patient): Patient is Able to be Assessed for Learningno Reason Unable to Assessmentally impaired Learning Assessment (Other Learner): Learning Assessment (Other Learner): Other learner availableyes... Learnerlegal guardian Factors Influencing Readiness to Learnacuteness of illness Factors that Impact Ability to Learnnone Devices/Methods Used to Communicatenone Learning Preferencesaudio Cultural Considerationsnone Developmental Considerationsnone Mormon Considerationsnone Pressure Injury/TB/Substance: Pressure Injury: Do you have a coughno Smoking Statusnever smoker Alcohol Usedenies Drug Usedenies Admission Risk Screen: Significant IndicatorsComplete CAGE: CAGE: Is this an injured patient at a Trauma Center ([facility]/[place]): no Electronic Signatures: Anna Bermudez ([place]) (Signed 09-Aug-2022 09:26) Authored: Preferred Language, Patient Preferred Pharmacy, Advanced Directives, Family Violence Adult, Learning Assessment (Patient), Learning Assessment (Other Learner), Pressure Injury/TB/Substance, Pressure Injury, CAGE Last Updated: 09-Aug-2022 09:26 by Anna Bermudez (RN) [facility] Triage - EDon 08-09-2022 Triage - ED Chart Review: ARRIVAL INFORMATION Mode of Arrival: private vehicle CHIEF COMPLAINT SHAJI ESQUIVEL is a Female patient with a chief complaint of fall (unwitnessed fall in patient's bedroom, lac to right eye brow, denies thinners.). Triage Date/Time: 09-Aug-2022 09:23 CALLIE: 3 Pain Rating (0-10): unable to assess Vital Signs: Temperature: 98.1F ( 36.7C) Blood Pressure: 151/75 Mean: Heart Rate: 76 Respiratory Rate: 18 Pulse Oximetry: 98% on room air, no respiratory support. Height: 5 feet 2.00 inches. 157.4 CM Weight: 132.2 pounds. Calculated 60.0 kg. Calculated BMI (kg/m2): 24.218 Calculated BSA (m2) 1.62 [place] Coma Scale: Best Eye Response: (E4) spontaneous Best Motor Response: (M6) obeys commands Best Verbal Response: (V4) confused [place] Score: 14 Allergies: no Patient has homicidal thoughts: no Risk Screens Suicide Risk Screen In the Past Month: Have you wished you were or wished you could go to sleep and not wake up no In the Past Month: Have you had any actual thoughts of killing yourself no In Your Lifetime: Have you ever done anything, started to do anything, or prepared to do anything to end your life no Brunson Fall Scale Screening Has the patient fallen before (or is the patient in the ED as a result of a fall) has had a fall Does the patient have an impaired gait does not have impaired gait Is the patient cognitively impaired not cognitively impaired Brunson Fall Scale History of falling (immediate or previous) yes (25) Secondary Diagnosis yes (15) Intravenous Therapy/ Heparin/Saline Lock no (0) Gait/Transferring normal/bedrest/wheelcha ir (0) Ambulatory Aids none/bedrest/nurse assist (0) Mental Status overestimates/forgets limitations (15) Brunson Fall Risk Score: 55 Interventions: Brunson Fall Interventions: HIGH INTERVENTIONS *Low and Moderate Interventions Plus: * supervised toileting at all times TRAVEL HISTORY Travel History Coronavirus Screening: no exposure or symptoms Travel Exposure History: NO travel to International locations in the past 30 days PAIN Pain Scale Used: KD Pain Rating (0-10): unable to assess Past Medical History: Past Medical History Reviewedno Electronic Signatures: Anna Bermudez (RN) (Signed 09-Aug-2022 09:25) Entered: Risk Screens, Pain, Travel History, Chart Review, Scores, Past Medical History Authored: Quick Triage, Risk Screens, Pain, Travel History, Chart Review, Scores, Past Medical History Last Updated: 09-Aug-2022 09:25 by Anna Bermudez (RN) [facility] CHEST 1 VIEWon 05-26-2022 CHEST 1 VIEW STUDY: Chest Radiograph; 05/25/2022 10:15 PM INDICATION: Trouble swallowing. Looking for foreign body. COMPARISON: 08/10/2021 XR Chest ACCESSION NUMBER(S): [id number] ORDERING CLINICIAN: FRANCE LOWE MD TECHNIQUE: Frontal chest was obtained at 2215 hours. FINDINGS: No radiodense foreign body is identified. Both lungs are clear. The heart and mediastinum are of normal size and contour. No pleural effusion. No pneumothorax. No acute bony abnormality identified. IMPRESSION: No findings of an acute cardiopulmonary process. Signed by Sachin Henley MD Electronically signed by: SACHIN HENLEY MD [facility] SOFT TISSUE NECKon SOFT TISSUE NECK STUDY: Soft Tissue Neck Radiographs; 05/25/2022 at 10:17 PM INDICATION: Difficulty swallowing. Evaluate for foreign body. COMPARISON: XR chest of same date, 05/25/22. ACCESSION NUMBER(S): [id number] ORDERING CLINICIAN: FRANCE LOWE MD TECHNIQUE: Two view(s) of the soft tissue neck (two images). FINDINGS: There is no radiopaque foreign body seen in the soft tissue. There is no airway compromise identified. Epiglottis is within normal limits. Prevertebral soft tissues are unremarkable. Multiple dental fillings. Cervicothoracic dextroscoliosis. Mild degenerative disc disease and spondylosis. Uncovertebral arthropathy. Vertebral body heights are intact. The lung apices are clear. Atherosclerotic aorta and carotid regions. IMPRESSION: No radiopaque foreign body is seen. Consider additional imaging. Signed by Farida Luciano MD Electronically signed by: FARIDA LUCIANO MD [facility] Provider Note - ED v3on 05-09 Provider Note - ED v3 Provider Note: Chart Review: ED NOTES ED NOTES: History of Present Illness: Female presenting to emergency department from [facility] after choking on a piece of broccoli. Patient reportedly was at her behavioral [facility] when she choked on a piece of broccoli. Abdominal thrusts were performed and patient coughed the piece of broccoli. Patient is brought to the emergency department for further evaluation. Patient is a poor historian secondary to mental illness and is minimally verbal, which is apparently her baseline. Thus history is somewhat limited. Patient voices no other complaints at this time nor any other complaints communicated by the [facility] staff. Past Medical History: HTN, psychiatric disorder Past surgical History: Denies Family history: Reviewed and not pertinent to complaint Social history: Lives in [facility], denies EtOH or drug use REVIEW OF SYSTEMS: Pertinent negatives and positives noted in the HPI. Otherwise, a complete review of system was negative. PHYSICAL EXAM: Appearance: Alert, oriented , cooperative, in no acute distress. Skin: Intact, dry skin, no lesions, rash, petechiae or purpura. Eyes: PERRLA, EOMs intact, Conjunctiva pink with no redness or exudates. HENT: Normocephalic, atraumatic. Nares patent. No intraoral lesions. No trismus, no drooling Neck: Supple, without meningismus. Trachea at midline. No lymphadenopathy. Pulmonary: Clear bilaterally with good chest wall excursion. No rales, rhonchi or wheezing. No accessory muscle use or stridor. Cardiac: Regular rate and rhythm, no rubs, murmurs, or gallops Abdomen: Abdomen is soft, nontender, and nondistended. Genitourinary: Exam deferred. Musculoskeletal: No cyanosis, clubbing, or edema. Neurological: grossly normal sensation, no weakness, no focal findings identified. Psychiatric: Appropriate mood and affect. HISTORY OF PRESENTING ILLNESS SHAJI is a 61 year old Female and was seen by me at 25-May-2022 19:01 for a chief complaint of choking (Gaetano from care facility where pt lives states that pt choked on a piece of broccoli. abdominal thrusts were done and piece of broccoli coughed up. upon arrival pt handling own secretions, able to swallow)(1). Triage Information: Most recent Vital Sign Value Date Temp (F): 98.2 05-25-2022 18:53 Temp (C): 36.7 05-25-2022 18:53 Heart Rate (beats/min): 91 05-25-2022 18:53 Respirations (breaths/min): 18 05-25-2022 18:53 SpO2 (%): 99 05-25-2022 18:53 BP Systolic (mm Hg): 156 05-25-2022 18:53 BP Diastolic (mm Hg): 82 05-25-2022 18:53 PAST MEDICAL HISTORY ALLERGIES/INTOLERANCES: No Known Allergies HEALTH HISTORY: No documented data. OUTPATIENT MEDICATIONS: Home Medications Review Status for Reconciliation: N/A Med Status: Patient Currently Takes Medications Drug Name: diazePAM 2 mg oral tablet Instructions: null Drug Name: atorvastatin Instructions: null Drug Name: levothyroxine Instructions: null Drug Name: metFORMIN Instructions: null Drug Name: lisinopril Instructions: null Drug Name: mirtazapine Instructions: null Drug Name: OLANZapine Instructions: null Drug Name: omeprazole Instructions: null Drug Name: potassium acetate Instructions: null SIGNIFICANT EVENTS: No documented data. CRITICAL CARE RESULTS: Radiology Results: Impression: No radiopaque foreign body is seen. Consider additional imaging. Signed by Farida Luciano MD Xray Neck Soft Tissue [May 25 2022 10:34PM] Impression: No findings of an acute cardiopulmonary process. Signed by Sachin Henley MD Xray Chest 1 View [May 25 2022 10:34PM] VITAL SIGNS: T PRBP SpO2O2(LPM) %FiO2 Method 25-May-2022 23:13:00-8705611/90 95 room air, no respiratory support 25-May-2022 19:37:00-5733442/80 96 room air, no respiratory support 25-May-2022 18:53:00-36.93797786/82 99 room air, no respiratory support MDM MDM/ED COURSE: Patient presenting to emergency department after having an episode of choking on a piece of broccoli. She was at her ANITA and abdominal thrusts were performed and patient expectorated the piece of broccoli. She presents the emergency department with no signs of respiratory distress. She is swallowing without difficulty. X-ray shows no evidence of foreign bodies. Patient is stable to follow-up with her primary care doctor. Indications to return to emergency department discussed. DISPOSITION Diagnosis/Annotation: ED Dx Name:Choking episode Code:R09.89 Disposition: discharged Type: home CONSULT CRITICAL CARE TIME Is this a critically ill patient: no Electronic Signatures: France Lowe) (Signed 26-May-2022 03:57) Authored: ED Notes, HPI, PMH, Results/Vital Signs, MDM/ED Course, Clini (more content not included)... Normal [facility] Risk Screen - Adult Emergenc yon 05-25-2022 Risk Screen - Adult Emergency Preferred Language: Preferred Language: Preferred Language for Discussing Health Care (patient/designee)Samara olea Patient Preferred Pharmacy: Patient Preferred Pharmacy Statement: I have reviewed and updated the patient's preferred pharmacy selection for today's visit. Advanced Directives: Advance Directive/DNRno Family Violence Adult: Abuse Screen: Are you or have you been threatened or abused physically, emotionally, or sexually by anyoneno Learning Assessment (Patient): Learning Assessment (Patient): Patient is Able to be Assessed for Learningyes Factors Influencing Readiness to Learnacuteness of illness Factors that Impact Ability to Learncognitive limitations Devices/Methods Used to Communicatenone Learning Preferencesaudio Cultural Considerationsnone Developmental Considerationsnone Mormon Considerationsnone Learning Assessment (Other Learner): Learning Assessment (Other Learner): Other learner availableno Pressure Injury/TB/Substance: Pressure Injury: Do you have a coughno Smoking Statusnever smoker Alcohol Usedenies Drug Usedenies Admission Risk Screen: Significant IndicatorsComplete CAGE: CAGE: Is this an injured patient at a Trauma Center ([facility]/[place]): no Electronic Signatures: Anne Zavaleta ([place]) (Signed 25-May-2022 19:05) Authored: Preferred Language, Patient Preferred Pharmacy, Advanced Directives, Family Violence Adult, Learning Assessment (Patient), Learning Assessment (Other Learner), Pressure Injury/TB/Substance, Pressure Injury, CAGE Last Updated: 25-May-2022 19:05 by Anne Zavaleta (RN) [facility] Triage - EDon 05-25-2022 Triage - ED Chart Review: ARRIVAL INFORMATION Mode of Arrival: ambulance Agency Name: [facility] CHIEF COMPLAINT SHAJI ESQUIVEL is a Female patient with a chief complaint of choking (Gaetano from care facility where pt lives states that pt choked on a piece of broccoli. abdominal thrusts were done and piece of broccoli coughed up. upon arrival pt handling own secretions, able to swallow). Triage Date/Time: 25-May-2022 18:53 CALLIE: 3 Pain Rating (0-10): 0 = None Vital Signs: Temperature: 98.2F ( 36.7C) taken forehead Blood Pressure: 156/82 Mean: Heart Rate: 91 Respiratory Rate: 18 Pulse Oximetry: 99% on room air, no respiratory support. Allergies: no Patient has homicidal thoughts: unable to assess Risk Screens Suicide Risk Screen [facility] Risk Screen: unable to assess [facility] Risk Screen Brunson Fall Scale Screening Unable to assess unable to assess Interventions: Brunson Fall Interventions: HIGH INTERVENTIONS *Low and Moderate Interventions Plus: * supervised toileting at all times TRAVEL HISTORY Travel History Coronavirus Screening: no exposure or symptoms Travel Exposure History: NO travel to International locations in the past 30 days PAIN Pain Scale Used: KD Pain Rating (0-10): 0 = None Past Medical History: Past Medical History Reviewedyes Electronic Signatures: Anne Zavaleta) (Signed 25-May-2022 19:04) Entered: Risk Screens, Pain, Travel History, Chart Review, Scores, Past Medical History Authored: Quick Triage, Risk Screens, Pain, Travel History, Chart Review, Scores, Past Medical History Last Updated: 25-May-2022 19:04 by Anne Zavaleta ([place]) [facility] VASC LAB Venous Duplex Ultra sound DVTon 11-14-2022 VASC LAB Venous [place] [address] [phone], Vascular Lab Report Lower Venous Duplex Ultrasound Patient Name: SHAJI Pruitt Reading Physician: [id number] Deshaun Lee MD Study Date: 04/22/2022 Referring ANTWAN MAHARAJ Physician: MRN/PID: [id number] PCP: Accession/Order#: [id number] CC Report to: Date of : 1960 Technologist: Tanna Drake RVT Gender: F Technologist 2: Admission Status: Outpatient Location Performed: [facility] Diagnosis/ICD: R60.0-Localized (leg) edema; M79.89-Right leg swelling Procedure/CPT: 95495 Peripheral venous duplex scan for DVT Limited-[id number] CONCLUSIONS: Right Lower Venous: No evidence of acute deep vein thrombus visualized in the right lower extremity. Left Lower Venous: Left common femoral vein is negative for deep vein thrombus. No evidence of deep vein thrombosis of the left external iliac vein. Imaging AND Doppler Findings: Right Compress Thrombus SFJ Yes None Right Compressible Thrombus Flow Iliac Yes None CFV Yes None Spontaneous/Phasic PFV Yes None FV Proximal Yes None Spontaneous/Phasic FV Mid Yes None FV Distal Yes None Popliteal Yes None Spontaneous/Phasic Peroneal Yes None PTV Yes None Left Compress Thrombus Flow Iliac Yes None CFV Yes None Spontaneous/Phasic [id number] Deshaun Lee MD Final Normal [facility] XR LUMBAR PUNCTURE (DIAGNOST IC) WITH GAIT ANALYSISon 04-17-2022 XR LUMBAR PUNCTURE (DIAGNOSTIC) WITH GAIT ANALYSIS EXAMINATION: XR LUMBAR PUNCTURE (DIAGNOSTIC) WITH GAIT ANALYSIS CLINICAL INDICATION: NPHORDERING SYSTEM PROVIDED HISTORY: NPH, TECHNOLOGIST PROVIDED HISTORY: Illness/Other Reason for exam: G91.2 (ICD-10-CM) - NPH (normal pressure hydrocephalus) ([facility] Encounter Type: Initial Additional signs and symptoms: no Fluoro dose in mGy: 14.5 ORDERING SYSTEM PROVIDED DIAGNOSIS CODES: G91.2 NPH (normal pressure hydrocephalus) ([facility]) PHYSICIAN: Dr. Tong FLUOROSCOPY DOSE: Fluoro dose in bruno Hernandez mGy: 14.5 PROCEDURE: The risks, benefits and alternatives to the procedure were explained to the patient's guardianship via phone conversation and informed consent was obtained. The patient was placed prone on the exam table and a suitable site for approach was determined using fluoroscopy. The patient was prepped and draped in usual sterile fashion. Utilizing sterile technique, Xylocaine was administered for superficial and deep anesthetic. A 20 gauge spinal needle was advanced into the intrathecal space at L3. Opening pressure of 10.. Following placement, approximately 32 mL of cerebrospinal fluid was extracted for analysis. The needle was removed and hemostasis was achieved. There was no immediate complication and the patient tolerated the procedure well. IMPRESSION: Successful flouroscopically guided lumbar puncture. Workstation ID: [id number] Dictated by: SACHIN TONG on FriApr 17, 2022 10:14:57 AM EST Transcribed by: SACHIN TONG on FriApr 17, 2022 10:14:57 AM EST Finalized by: SACHIN TONG on FriApr 17, 2022 10:14:57 AM EST Normal [facility] Comment on above: Order Comment: Injur y/Trauma or Illness?:Illness/Other How long have you had these symptoms (acute/chronic)?:Acute Reason for exam?:G91.2 (ICD-10-CM) - NPH (normal pressure hydrocephalus) ([facility] Type of Exam?:Initial Additional signs and symptoms?:no Fluoro time in minutes:16 Fluoro dose in mGy?:14.5 CBC panel Auto (Bld)on 04-15 Erythrocyte distribution width (RBC) [Entitic vol] 12.3 % 11.6 - 14.8 % [facility] Hematocrit (Bld) [Volume fraction] 39.5 % 36 - 46 % [facility] Hemoglobin (Bld) [Mass/Vol] 12.0 g/dL 12 - 16 g/dL [facility] Interpretation and review of laboratory results Abnormal [facility] MCH (RBC) [Entitic mass] 29.2 pg 26 - 34 pg [facility] MCHC (RBC) [Mass/Vol] 30.4 g/dL Low 31 - 37 g/dL [facility] MCV (RBC) [Entitic vol] 96.1 fL 80 - 100 fL [facility] Nucleated RBC (Bld) [#/Vol] 0.00 10*3/uL [facility] Nucleated RBC/100 WBC (Bld) [Ratio] 0.0 % [facility] Platelet mean volume (Bld) [Entitic vol] 10.0 fL 9.4 - 12.4 fL [facility] Platelets (Bld) [#/Vol] 299 10*3/uL [facility] RBC (Bld) [#/Vol] 4.11 10*6/uL [facility] WBC (Bld) [#/Vol] 6.64 10*3/uL [facility] MARCELL Teston 02-26-2019 MARCELL Test Negative Normal Negative [facility] Comment on above: Performed By: #### 8 [id number] #### GRAYSON Misc Micro SubSection , Glucose POCon 02-25-2019 Glucose [Mass/Vol] 97 mg/dL Normal 70-99 [facility] Comment on above: Performed By: #### 5 [id number] #### GRAYSON POC Subsection [facility] [place] [address] XR UPPER GI SERIESon 019 1. Limited study. 2. No esophageal mass or stricture. 3. Findings suggestive of gastritis with possible ulcers in the gastric antrum. 4. Large amount of gastroesophageal reflux. [employer] Workstation ID: [id number] [facility] EXAMINATION: XR UPPE R GI SERIES HISTORY: ORDERING SYSTEM PROVIDED HISTORY: Dysphagia, unspecified type, TECHNOLOGIST PROVIDED HISTORY: Reason for exam: DYSPHAGIA, SOLIDS Illness/Other Encounter Type: Subsequent/Follow-up Additional signs and symptoms: 30 LB WT LOSS IN THE PAST YR Fluoro dose in mGy: 0 ORDERING SYSTEM PROVIDED DIAGNOSIS CODES: R13.10 Dysphagia, unspecified type COMPARISON: None. TECHNIQUE: Single-contrast barium upper GI study was performed due to patient's medical condition and inability to cooperate. Ka,r = 0 mGy. Fluoro time in minutes: 3.26 FINDINGS: There was free flow of contrast into the stomach. No esophageal mass or stricture is identified. No significant esophageal dysmotility. No hiatal hernia. There is mucosal irregularity within the stomach suggesting gastritis. Two possible small ulcers are seen within the gastric antrum. There is a large amount of gastroesophageal reflux up to the cervical esophagus. No evidence of gastric outlet obstruction. [facility] Interface, Rad In Mikey [employer] - 11/03/2018 5:46 PM EDT EXAMINATION: XR UPPER GI SERIES HISTORY: ORDERING SYSTEM PROVIDED HISTORY: Dysphagia, unspecified type, TECHNOLOGIST PROVIDED HISTORY: Reason for exam: DYSPHAGIA, SOLIDS Illness/Other Encounter Type: Subsequent/Follow-up Additional signs and symptoms: 30 LB WT LOSS IN THE PAST YR Fluoro dose in mGy: 0 ORDERING SYSTEM PROVIDED DIAGNOSIS CODES: R13.10 Dysphagia, unspecified type COMPARISON: None. TECHNIQUE: Single-contrast barium upper GI study was performed due to patient's medical condition and inability to cooperate. Ka,r = 0 mGy. Fluoro time in minutes: 3.26 FINDINGS: There was free flow of contrast into the stomach. No esophageal mass or stricture is identified. No significant esophageal dysmotility. No hiatal hernia. There is mucosal irregularity within the stomach suggesting gastritis. Two possible small ulcers are seen within the gastric antrum. There is a large amount of gastroesophageal reflux up to the cervical esophagus. No evidence of gastric outlet obstruction. IMPRESSION: 1. Limited study. 2. No esophageal mass or stricture. 3. Findings suggestive of gastritis with possible ulcers in the gastric antrum. 4. Large amount of gastroesophageal reflux. [employer] Workstation ID: [id number] [facility] US Abdomen Completeon 2018 US Abdomen Complete Exam Date/Time: 09/17/2018 08:09 EDT Reason for Exam: ABD PAIN UNSPECIFIED LOCATION Report STUDY: US Abdomen Complete; 09/17/2018 8:09 am INDICATION: 58 y/o F with ABD PAIN UNSPECIFIED LOCATION. COMPARISON: None. ACCESSION NUMBER(S): [id number] ORDERING CLINICIAN: Antwan Maharaj TECHNIQUE: Routine ultrasound of the abdomen was performed. Static images were obtained for remote interpretation. FINDINGS: LIVER: Normal size and measures 12.1. Normal echogenicity, and echotexture. No focal abnormalities. BILE DUCTS: No intrahepatic or extrahepatic bile duct dilatation . Extrahepatic bile duct = 3 mm. GALLBLADDER: Normal. No stones, pericholecystic fluid, wall thickening, or localized tenderness. PANCREAS: The pancreas was obscured by bowel gas. SPLEEN: Normal size. RIGHT KIDNEY: Survey views - no focal lesions, renal stones or hydronephrosis. The right kidney measures 9.6 cm. LEFT KIDNEY: The left kidney was suboptimally visualized due to large amount of bowel gas. Survey views - no focal lesions, renal stones or hydronephrosis. The left kidney measures 10.2 cm. PERITONEUM: No ascites. Exam Date/Time: 09/17/2018 08:09 EDT Report AORTA & IVC: Visualized portions are normal. IMPRESSION: Unremarkable ultrasound of the abdomen. FINAL REPORT Dictated: 09/17/2018 9:05 am Marysol Peña MD Signed (Electronic Signature): 09/17/2018 9:05 am Signed by: Marysol Peña MD Technologist: HARIKA Normal [facility] Ferritinon 12-25-2017 Ferritin 5 ng/mL Low 13-150 [facility] Comment on above: Result Comment: Samp les from patients routinely receiving high dose biotin therapy(100-300 mg/day) may show falsely decreased results. Please correlateclinically. Performed By: #### C BCWOD, CMET, LIPID, HBA1C ####Unless otherwise noted, all testing performed by [address] [phone]: [id number] Director: David Mcclain M.D. Iron, Totalon 12-25-2017 Iron, Total 44 mcg/dL Low 50-170 [facility] Comment on above: Performed By: #### C BCWOD, CMET, LIPID, HBA1C ####Unless otherwise noted, all testing performed by [address] [id number]: [id number] Director: David Mcclain M.D. Vitamin B12on 12-25-2017 Cobalamins (Vitamin B12) 322 pg/mL Normal 193-986 [facility] Comment on above: Performed By: #### C BCWOD, CMET, LIPID, HBA1C ####Unless otherwise noted, all testing performed by [address] [phone]: [id number] Director: David Mcclain M.D. CBC with Diffon 12-23-2017 Basophils Auto #/vol (Bld) 0.0 K/mcL Normal 0-0.2 [facility] Comment on above: Performed By: #### C BCWOD, CMET, LIPID, HBA1C ####Unless otherwise noted, all testing performed by [place] [phone]: [id number] Director: David Mcclain M.D. Basophils/100 WBC Auto (Bld) 0.3 % Normal [facility] Comment on above: Performed By: #### C BCWOD, CMET, LIPID, HBA1C ####Unless otherwise noted, all testing performed by [place] [phone]: [id number] Director: David Mcclain M.D. Eosinophils 0.3 K/mcL Normal 0-0.5 [facility] Comment on above: Performed By: #### C BCWOD, CMET, LIPID, HBA1C ####Unless otherwise noted, all testing performed by [address] [phone]: [id number] Director: David Mcclain M.D. Eosinophils/100 leukocytes 4.3 % Normal [facility] Comment on above: Performed By: #### C BCWOD, CMET, LIPID, HBA1C ####Unless otherwise noted, all testing performed by [address] [phone]: [id number] Director: David Mcclain M.D. Erythrocyte distribution width Auto Ratio (RBC) 14.5 % High 10.0-14.4 [facility] Comment on above: Performed By: #### C BCWOD, CMET, LIPID, HBA1C ####Unless otherwise noted, all testing performed by [address] [phone]: [id number] Director: David Mcclain M.D. Erythrocytes (RBC) 3.87 M/mcL Normal 3.7-5.0 [facility] Comment on above: Performed By: #### C BCWOD, CMET, LIPID, HBA1C ####Unless otherwise noted, all testing performed by [address] [phone]: [id number] Director: David Mcclain M.D. Hematocrit (HCT) 33.5 % Low 34.4-44.8 [facility] Comment on above: Performed By: #### C BCWOD, CMET, LIPID, HBA1C ####Unless otherwise noted, all testing performed by [address] [phone]: [id number] Director: David Mcclain M.D. Hemoglobin mass conc (Bld) 10.9 g/dL Low 11.6-15.4 [facility] Comment on above: Performed By: #### C BCWOD, CMET, LIPID, HBA1C ####Unless otherwise noted, all testing performed by [address] [phone]: [id number] Director: David Mcclain M.D. Lymphocytes 2.4 K/mcL Normal 1.0-3.7 [facility] Comment on above: Performed By: #### C BCWOD, CMET, LIPID, HBA1C ####Unless otherwise noted, all testing performed by [address] [phone]: [id number] Director: David Mcclain M.D. Lymphocytes/100 leukocytes 35.0 % Normal [facility] Comment on above: Performed By: #### C BCWOD, CMET, LIPID, HBA1C ####Unless otherwise noted, all testing performed by [address] [phone]: [id number] Director: David Mcclain M.D. MCH 28.2 pg Normal 27.9-33.9 [facility] Comment on above: Performed By: #### C BCWOD, CMET, LIPID, HBA1C ####Unless otherwise noted, all testing performed by [address] [phone]: [id number] Director: David Mcclain M.D. MCHC mass conc (RBC) 32.6 g/dL Low 33.1-35.1 [facility] Comment on above: Performed By: #### C BCWOD, CMET, LIPID, HBA1C ####Unless otherwise noted, all testing performed by [address] [phone]: [id number] Director: David Mcclain M.D. MCV 86.4 fL Normal 82.6-98.9 [facility] Comment on above: Performed By: #### C BCWOD, CMET, LIPID, HBA1C ####Unless otherwise noted, all testing performed by [address] [phone]: [id number] Director: David Mcclain M.D. Monocytes 0.5 K/mcL Normal 0.1-0.6 [facility] Comment on above: Performed By: #### C BCWOD, CMET, LIPID, HBA1C ####Unless otherwise noted, all testing performed by [address]8509CLIA: [id number] Director: David Mcclain M.D. Monocytes/100 leukocytes 7.4 % Normal [facility] Comment on above: Performed By: #### C BCWOD, CMET, LIPID, HBA1C ####Unless otherwise noted, all testing performed by [address]8509CLIA: [id number] Director: David Mcclain M.D. Neutrophils 3.6 K/mcL Normal 1.2-6.9 [facility] Comment on above: Performed By: #### C BCWOD, CMET, LIPID, HBA1C ####Unless otherwise noted, all testing performed by [address]8509CLIA: [id number] Director: David Mcclain M.D. Platelet mean volume (PMV) 8.1 fL Normal 7.0-10.6 [facility] Comment on above: Performed By: #### C BCWOD, CMET, LIPID, HBA1C ####Unless otherwise noted, all testing performed by [address]8509[address]IA: [id number] Director: David Mcclain M.D. Platelets 285 K/mcL Normal 162-402 [facility] Comment on above: Performed By: #### C BCWOD, CMET, LIPID, HBA1C ####Unless otherwise noted, all testing performed by [address] [phone]: [id number] Director: David Mcclain M.D. Segmented Neut % 53.0 % Normal [facility] Comment on above: Performed By: #### C BCWOD, CMET, LIPID, HBA1C ####Unless otherwise noted, all testing performed by [address] [phone]: [id number] Director: David Mcclain M.D. WBC (Leukocytes) 6.8 K/mcL Normal 3.4-10.6 [facility] Comment on above: Performed By: #### C BCWOD, CMET, LIPID, HBA1C ####Unless otherwise noted, all testing performed by [address] [phone]: [id number] Director: David Mcclain M.D. [facility] 12-23-2017 Alanine aminotransferase (ALT) 17 U/L Normal 14-65 [facility] Comment on above: Result Comment: This test result might be falsely depressed or falsely elevated onsamples drawn from patients taking Sulfasalazine and Sulfapyridine.Venipuncture should occur prior to taking either of these drugs. Performed By: #### C BCWOD, CMET, LIPID, HBA1C ####Unless otherwise noted, all testing performed by [address] [phone]: [id number] Director: David Mcclain M.D. Albumin 3.3 g/dL Normal 3.2-5.2 [facility] Comment on above: Performed By: #### C BCWOD, CMET, LIPID, HBA1C ####Unless otherwise noted, all testing performed by [address] [phone]: [id number] Director: David Mcclain M.D. Alkaline phosphatase (ALP) 35 U/L Low 40-150 [facility] Comment on above: Performed By: #### C BCWOD, CMET, LIPID, HBA1C ####Unless otherwise noted, all testing performed by [address] [phone]: [id number] Director: David Mcclain M.D. Aspartate aminotransferase (AST) 9 U/L Normal 0-45 [facility] Comment on above: Result Comment: This test result might be falsely depressed or falsely elevated onsamples drawn from patients taking Sulfasalazine and Sulfapyridine.Venipuncture should occur prior to taking either of these drugs. Performed By: #### C BCWOD, CMET, LIPID, HBA1C ####Unless otherwise noted, all testing performed by [address] [phone]: [id number] Director: David Mcclain M.D. Bilirubin (total) 0.2 mg/dL Low 0.3-1.2 [facility] Comment on above: Performed By: #### C BCWOD, CMET, LIPID, HBA1C ####Unless otherwise noted, all testing performed by [address] [phone]: [id number] Director: David Mcclain M.D. Calcium 8.9 mg/dL Normal 8.4-10.2 [facility] Comment on above: Performed By: #### C BCWOD, CMET, LIPID, HBA1C ####Unless otherwise noted, all testing performed by [address] [phone]: [id number] Director: David Mcclain M.D. Chloride 108 mmol/L Normal 98-108 [facility] Comment on above: Performed By: #### C BCWOD, CMET, LIPID, HBA1C ####Unless otherwise noted, all testing performed by [address] [phone]: [id number] Director: David Mcclain M.D. CO2 24 mmol/L Normal 21-32 [facility] Comment on above: Performed By: #### C BCWOD, CMET, LIPID, HBA1C ####Unless otherwise noted, all testing performed by [address] [phone]: [id number] Director: David Mcclain M.D. Creatinine 0.94 mg/dL Normal 0.40-1.10 [facility] Comment on above: Performed By: #### C BCWOD, CMET, LIPID, HBA1C ####Unless otherwise noted, all testing performed by [address] [phone]: [id number] Director: David Mcclain M.D. eGFR (black) mL/min/{1.73_m2} Normal [facility] Comment on above: Result Comment: Afri can [place] GFR Calc Performed By: #### C BCWOD, CMET, LIPID, HBA1C ####Unless otherwise noted, all testing performed by [address] [phone]: [id number] Director: David Mcclain M.D. eGFR (non-black) mL/min/{1.73_m2} Normal [facility] Comment on above: Result Comment: Non- GFR CalceGFR is an estimated Glomerular Filtration Rate based on the valueof the patient's serum creatinine. In outpatients, eGFR should be usedas a helpful tool in screening for CKD. In inpatients or patients withacute renal failure, eGFR represents the GFR at the moment of the drawand should be used with caution. Performed By: #### C BCWOD, CMET, LIPID, HBA1C ####Unless otherwise noted, all testing performed by [address] [phone]: [id number] Director: David Mcclain M.D. Glucose mass conc 122 mg/dL High 70-99 [facility] Comment on above: Result Comment: This test result might be falsely depressed or falsely elevated onsamples drawn from patients taking Sulfasalazine and Sulfapyridine.Venipuncture should occur prior to taking either of these drugs. Performed By: #### C BCWOD, CMET, LIPID, HBA1C ####Unless otherwise noted, all testing performed by [address] [phone]: [id number] Director: David Mcclain M.D. Potassium molar conc 3.9 mmol/L Normal 3.5-5.1 [facility] Comment on above: Performed By: #### C BCWOD, CMET, LIPID, HBA1C ####Unless otherwise noted, all testing performed by [address] [phone]: [id number] Director: David Mcclain M.D. Protein 6.2 g/dL Normal 6.0-8.0 [facility] Comment on above: Performed By: #### C BCWOD, CMET, LIPID, HBA1C ####Unless otherwise noted, all testing performed by [address] [phone]: [id number] Director: David Mcclain M.D. Sodium 143 mmol/L Normal 135-145 [facility] Comment on above: Performed By: #### C BCWOD, CMET, LIPID, HBA1C ####Unless otherwise noted, all testing performed by [address] [phone]: [id number] Director: David Mcclain M.D. Urea nitrogen 14 mg/dL Normal 8-25 [facility] Comment on above: Performed By: #### C BCWOD, CMET, LIPID, HBA1C ####Unless otherwise noted, all testing performed by [address] [phone]: [id number] Director: David Mcclain M.D. Hemoglobin A1Con 12-23-2017 Hemoglobin A1c/Hemoglobin.total mass fraction (Bld) 7.3 % High 4.1-6.5 [facility] Comment on above: Performed By: #### C BCWOD, CMET, LIPID, HBA1C ####Unless otherwise noted, all testing performed by [address] [phone]: [id number] Director: David Mcclain M.D. Lipid Panelon 12-23-2017 Cholesterol 113 mg/dL Normal 100-199 [facility] Comment on above: Performed By: #### C BCWOD, CMET, LIPID, HBA1C ####Unless otherwise noted, all testing performed by [address] [phone]: [id number] Director: David Mcclain M.D. Cholesterol in VLDL mass conc 29 mg/dL Normal 5-40 [facility] Comment on above: Performed By: #### C BCWOD, CMET, LIPID, HBA1C ####Unless otherwise noted, all testing performed by [address] [phone]: [id number] Director: David Mcclain M.D. Cholesterol to HDL Ratio 2.9 {ratio} Low 3.2-5.0 [facility] Comment on above: Result Comment: [place] coats Coronary Heart Disease Risk Factor (CHDRF):Average risk= 4.41/2 Average risk= 3.32 times Average risk= 7.1 Performed By: #### C BCWOD, CMET, LIPID, HBA1C ####Unless otherwise noted, all testing performed by [address] [phone]: [id number] Director: David Mcclain M.D. HDL Cholesterol 40 mg/dL Normal 40-59 [facility] Comment on above: Performed By: #### C BCWOD, CMET, LIPID, HBA1C ####Unless otherwise noted, all testing performed by [address] [phone]: [id number] Director: David Mcclain M.D. LDL Cholesterol 45 mg/dL Normal 10-150 [facility] Comment on above: Performed By: #### C BCWOD, CMET, LIPID, HBA1C ####Unless otherwise noted, all testing performed by [address] [phone]: [id number] Director: David Mcclain M.D. Triglyceride 143 mg/dL High 25-120 [facility] Comment on above: Performed By: #### C BCWOD, CMET, LIPID, HBA1C ####Unless otherwise noted, all testing performed by [address] [phone]: [id number] Director: David Mcclain M.D. TSHon 12-23-2017 Thyroid stimulating hormone (TSH) 5.67 uIU/mL High 0.320-5.000 [facility] Comment on above: Result Comment: Samp les from patients routinely receiving high dose biotin therapy(100-300 mg/day) may show falsely decreased results. Please correlateclinically. Performed By: #### C BCWOD, CMET, LIPID, HBA1C ####Unless otherwise noted, all testing performed by [address] [phone]: [id number] Director: David Mcclain M.D. Thyroxine (T4) free 1.0 ng/dL Normal 0.7-1.7 [facility] Comment on above: Result Comment: Samp les from patients routinely receiving high dose biotin therapy(100-300 mg/day) may show falsely increased results. Please correlateclinically. Performed By: #### C BCWOD, CMET, LIPID, HBA1C ####Unless otherwise noted, all testing performed by [address] [phone]: [id number] Director: Dvaid Mcclain M.D. Influenza A,B Rapid Molecula adolfo 07-26-2017 Influenza A Rapid Molecular Not Detected Normal Not Detected [facility] Comment on above: Performed By: #### C BCWOD, CMET, LIPID, HBA1C ####Unless otherwise noted, all testing performed by [address] [phone]: [id number] Director: David Mcclain M.D. Influenza B Rapid Molecular Not Detected Normal Not Detected [facility] Comment on above: Performed By: #### C BCWOD, CMET, LIPID, HBA1C ####Unless otherwise noted, all testing performed by [address]8[address]CLIA: [id number] Director: David Mcclain M.D. CBC with Diffon 04-17-2017 Basophils Auto #/vol (Bld) 0.0 K/mcL Normal 0-0.2 [facility] Comment on above: Performed By: #### C BCDIF, MG, TSH, CMET, LIPID, VITB12, HBA1C ####Unless otherwise noted, all testing performed by [address]CLIA: [id number] Director: David Mcclain M.D. Basophils/100 WBC Auto (Bld) 0.4 % Normal [facility] Comment on above: Performed By: #### C BCDIF, MG, TSH, CMET, LIPID, VITB12, HBA1C ####Unless otherwise noted, all testing performed by [address] [phone]: [id number] Director: David Mcclain M.D. Eosinophils 0.1 K/mcL Normal 0-0.5 [facility] Comment on above: Performed By: #### C BCDIF, MG, TSH, CMET, LIPID, VITB12, HBA1C ####Unless otherwise noted, all testing performed by [address] [phone]: [id number] Director: David Mcclain M.D. Eosinophils/100 leukocytes 1.9 % Normal [facility] Comment on above: Performed By: #### C BCDIF, MG, TSH, CMET, LIPID, VITB12, HBA1C ####Unless otherwise noted, all testing performed by [address] [phone]: [id number] Director: David Mcclain M.D. Erythrocyte distribution width Auto Ratio (RBC) 14.8 % High 10.0-14.4 [facility] Comment on above: Performed By: #### C BCDIF, MG, TSH, CMET, LIPID, VITB12, HBA1C ####Unless otherwise noted, all testing performed by [address] [phone]: [id number] Director: David Mcclain M.D. Erythrocytes (RBC) 4.82 M/mcL Normal 3.7-5.0 [facility] Comment on above: Performed By: #### C BCDIF, MG, TSH, CMET, LIPID, VITB12, HBA1C ####Unless otherwise noted, all testing performed by [address] [phone]: [id number] Director: David Mcclain M.D. Hematocrit (HCT) 42.9 % Normal 34.4-44.8 [facility] Comment on above: Performed By: #### C BCDIF, MG, TSH, CMET, LIPID, VITB12, HBA1C ####Unless otherwise noted, all testing performed by [address] [phone]: [id number] Director: David Mcclain M.D. Hemoglobin mass conc (Bld) 14.0 g/dL Normal 11.6-15.4 [facility] Comment on above: Performed By: #### C BCDIF, MG, TSH, CMET, LIPID, VITB12, HBA1C ####Unless otherwise noted, all testing performed by [address] [phone]: [id number] Director: David Mcclain M.D. Lymphocytes 1.4 K/mcL Normal 1.0-3.7 [facility] Comment on above: Performed By: #### C BCDIF, MG, TSH, CMET, LIPID, VITB12, HBA1C ####Unless otherwise noted, all testing performed by [address] [phone]: [id number] Director: David Mcclain M.D. Lymphocytes/100 leukocytes 23.0 % Normal [facility] Comment on above: Performed By: #### C BCDIF, MG, TSH, CMET, LIPID, VITB12, HBA1C ####Unless otherwise noted, all testing performed by [address] [phone]: [id number] Director: David Mcclain M.D. MCH 29.0 pg Normal 27.9-33.9 [facility] Comment on above: Performed By: #### C BCDIF, MG, TSH, CMET, LIPID, VITB12, HBA1C ####Unless otherwise noted, all testing performed by [address] [id number]: [id number] Director: David Mcclain M.D. [facility] mass conc (RBC) 32.6 g/dL Low 33.1-35.1 [facility] Comment on above: Performed By: #### C BCDIF, MG, TSH, CMET, LIPID, VITB12, HBA1C ####Unless otherwise noted, all testing performed by [address] [phone]: [id number] Director: David Mcclain M.D. MCV 88.9 fL Normal 82.6-98.9 [facility] Comment on above: Performed By: #### C BCDIF, MG, TSH, CMET, LIPID, VITB12, HBA1C ####Unless otherwise noted, all testing performed by [address] [phone]: [id number] Director: David Mcclain M.D. Monocytes 0.4 K/mcL Normal 0.1-0.6 [facility] Comment on above: Performed By: #### C BCDIF, MG, TSH, CMET, LIPID, VITB12, HBA1C ####Unless otherwise noted, all testing performed by [address] [phone]: [id number] Director: David Mcclain M.D. Monocytes/100 leukocytes 6.6 % Normal [facility] Comment on above: Performed By: #### C BCDIF, MG, TSH, CMET, LIPID, VITB12, HBA1C ####Unless otherwise noted, all testing performed by [address] [phone]: [id number] Director: David Mcclain M.D. Neutrophils 4.2 K/mcL Normal 1.2-6.9 [facility] Comment on above: Performed By: #### C BCDIF, MG, TSH, CMET, LIPID, VITB12, HBA1C ####Unless otherwise noted, all testing performed by [address] [phone]: [id number] Director: David Mcclain M.D. Platelet mean volume (PMV) 8.4 fL Normal 7.0-10.6 [facility] Comment on above: Performed By: #### C BCDIF, MG, TSH, CMET, LIPID, VITB12, HBA1C ####Unless otherwise noted, all testing performed by [address] [phone]: [id number] Director: David Mcclain M.D. Platelets 275 K/mcL Normal 162-402 [facility] Comment on above: Performed By: #### C BCDIF, MG, TSH, CMET, LIPID, VITB12, HBA1C ####Unless otherwise noted, all testing performed by [address] [phone]: [id number] Director: David Mcclain M.D. Segmented Neut % 68.1 % Normal [facility] Comment on above: Performed By: #### C BCDIF, MG, TSH, CMET, LIPID, VITB12, HBA1C ####Unless otherwise noted, all testing performed by [address] [phone]: [id number] Director: David Mcclain M.D. WBC (Leukocytes) 6.1 K/mcL Normal 3.4-10.6 [facility] Comment on above: Performed By: #### C BCDIF, MG, TSH, CMET, LIPID, VITB12, HBA1C ####Unless otherwise noted, all testing performed by [address] [phone]: [id number] Director: David Mcclain M.D. [facility] 04-17-2017 Alanine aminotransferase (ALT) 27 U/L Normal 14-65 [facility] Comment on above: Result Comment: This test result might be falsely depressed or falsely elevated onsamples drawn from patients taking Sulfasalazine and Sulfapyridine.Venipuncture should occur prior to taking either of these drugs. Performed By: #### C BCDIF, MG, TSH, CMET, LIPID, VITB12, HBA1C ####Unless otherwise noted, all testing performed by [address] [phone]: [id number] Director: David Mcclain M.D. Albumin 3.7 g/dL Normal 3.2-5.2 [facility] Comment on above: Performed By: #### C BCDIF, MG, TSH, CMET, LIPID, VITB12, HBA1C ####Unless otherwise noted, all testing performed by [address] [phone]: [id number] Director: David Mcclain M.D. Alkaline phosphatase (ALP) 56 U/L Normal 40-150 [facility] Comment on above: Performed By: #### C BCDIF, MG, TSH, CMET, LIPID, VITB12, HBA1C ####Unless otherwise noted, all testing performed by [address] [phone]: [id number] Director: David Mcclain M.D. Aspartate aminotransferase (AST) 10 U/L Normal 0-45 [facility] Comment on above: Result Comment: This test result might be falsely depressed or falsely elevated onsamples drawn from patients taking Sulfasalazine and Sulfapyridine.Venipuncture should occur prior to taking either of these drugs. Performed By: #### C BCDIF, MG, TSH, CMET, LIPID, VITB12, HBA1C ####Unless otherwise noted, all testing performed by [place] [phone]: [id number] Director: David Mcclain M.D. Bilirubin (total) 0.6 mg/dL Normal 0.3-1.2 [facility] Comment on above: Performed By: #### C BCDIF, MG, TSH, CMET, LIPID, VITB12, HBA1C ####Unless otherwise noted, all testing performed by [address] [phone]: [id number] Director: David Mcclain M.D. Calcium 9.7 mg/dL Normal 8.4-10.2 [facility] Comment on above: Performed By: #### C BCDIF, MG, TSH, CMET, LIPID, VITB12, HBA1C ####Unless otherwise noted, all testing performed by [address] [phone]: [id number] Director: David Mcclain M.D. Chloride 104 mmol/L Normal 98-108 [facility] Comment on above: Performed By: #### C BCDIF, MG, TSH, CMET, LIPID, VITB12, HBA1C ####Unless otherwise noted, all testing performed by [address] [phone]: [id number] Director: David Mcclain M.D. CO2 23 mmol/L Normal 21-32 [facility] Comment on above: Performed By: #### C BCDIF, MG, TSH, CMET, LIPID, VITB12, HBA1C ####Unless otherwise noted, all testing performed by [address] [phone]: [id number] Director: David Mcclain M.D. Creatinine 0.94 mg/dL Normal 0.40-1.10 [facility] Comment on above: Performed By: #### C BCDIF, MG, TSH, CMET, LIPID, VITB12, HBA1C ####Unless otherwise noted, all testing performed by [address] [phone]: [id number] Director: David Mcclain M.D. eGFR (black) mL/min/{1.73_m2} Normal [facility] Comment on above: Result Comment: Afri can [place] GFR Calc Performed By: #### C BCDIF, MG, TSH, CMET, LIPID, VITB12, HBA1C ####Unless otherwise noted, all testing performed by [address] [phone]: [id number] Director: David Mcclain M.D. eGFR (non-black) mL/min/{1.73_m2} Normal [facility] Comment on above: Result Comment: Non- GFR CalceGFR is an estimated Glomerular Filtration Rate based on the valueof the patient's serum creatinine. In outpatients, eGFR should be usedas a helpful tool in screening for CKD. In inpatients or patients withacute renal failure, eGFR represents the GFR at the moment of the drawand should be used with caution. Performed By: #### C BCDIF, MG, TSH, CMET, LIPID, VITB12, HBA1C ####Unless otherwise noted, all testing performed by [address] [phone]: [id number] Director: David Mcclain M.D. Glucose mass conc 128 mg/dL High 70-99 [facility] Comment on above: Result Comment: This test result might be falsely depressed or falsely elevated onsamples drawn from patients taking Sulfasalazine and Sulfapyridine.Venipuncture should occur prior to taking either of these drugs. Performed By: #### C BCDIF, MG, TSH, CMET, LIPID, VITB12, HBA1C ####Unless otherwise noted, all testing performed by [address] [phone]: [id number] Director: David Mcclain M.D. Potassium molar conc 3.5 mmol/L Normal 3.5-5.1 [facility] Comment on above: Performed By: #### C BCDIF, MG, TSH, CMET, LIPID, VITB12, HBA1C ####Unless otherwise noted, all testing performed by [address] [phone]: [id number] Director: David Mcclain M.D. Protein 7.8 g/dL Normal 6.0-8.0 [facility] Comment on above: Performed By: #### C BCDIF, MG, TSH, CMET, LIPID, VITB12, HBA1C ####Unless otherwise noted, all testing performed by [address] [phone]: [id number] Director: David Mcclain M.D. Sodium 141 mmol/L Normal 135-145 [facility] Comment on above: Performed By: #### C BCDIF, MG, TSH, CMET, LIPID, VITB12, HBA1C ####Unless otherwise noted, all testing performed by [address] [phone]: [id number] Director: David Mcclain M.D. Urea nitrogen 15 mg/dL Normal 8-25 [facility] Comment on above: Performed By: #### C BCDIF, MG, TSH, CMET, LIPID, VITB12, HBA1C ####Unless otherwise noted, all testing performed by [address] [phone]: [id number] Director: David Mcclain M.D. Hemoglobin A1Con 04-17-2017 Hemoglobin A1c/Hemoglobin.total mass fraction (Bld) 5.7 % Normal 4.1-6.5 [facility] Comment on above: Performed By: #### C BCWOD, CMET, LIPID, HBA1C ####Unless otherwise noted, all testing performed by [address] [phone]: [id number] Director: David Mcclain M.D. Lipid Panelon 04-17-2017 Cholesterol 135 mg/dL Normal 100-199 [facility] Comment on above: Performed By: #### C BCDIF, MG, TSH, CMET, LIPID, VITB12, HBA1C ####Unless otherwise noted, all testing performed by [address] [phone]: [id number] Director: David Mcclain M.D. Cholesterol in VLDL mass conc 27 mg/dL Normal 5-40 [facility] Comment on above: Performed By: #### C BCDIF, MG, TSH, CMET, LIPID, VITB12, HBA1C ####Unless otherwise noted, all testing performed by [address] [phone]: [id number] Director: David Mcclain M.D. Cholesterol to HDL Ratio 2.6 {ratio} Low 3.2-5.0 [facility] Comment on above: Result Comment: [place] Coronary Heart Disease Risk Factor (CHDRF):Average risk= 4.41/2 Average risk= 3.32 times Average risk= 7.1 Performed By: #### C BCDIF, MG, TSH, CMET, LIPID, VITB12, HBA1C ####Unless otherwise noted, all testing performed by [address] [phone]: [id number] Director: David Mcclain M.D. HDL Cholesterol 52 mg/dL Normal 40-59 [facility] Comment on above: Performed By: #### C BCDIF, MG, TSH, CMET, LIPID, VITB12, HBA1C ####Unless otherwise noted, all testing performed by [address] [phone]: [id number] Director: David Mcclain M.D. LDL Cholesterol 56 mg/dL Normal 10-150 [facility] Comment on above: Performed By: #### C BCDIF, MG, TSH, CMET, LIPID, VITB12, HBA1C ####Unless otherwise noted, all testing performed by [address] [phone]: [id number] Director: David Mcclain M.D. Triglyceride 134 mg/dL High 25-120 [facility] Comment on above: Performed By: #### C BCDIF, MG, TSH, CMET, LIPID, VITB12, HBA1C ####Unless otherwise noted, all testing performed by [place] [phone]: [id number] Director: David Mcclain M.D. Magnesiumon 04-17-2017 Magnesium 2.4 mg/dL Normal 1.6-2.4 [facility] Comment on above: Performed By: #### C BCDIF, MG, TSH, CMET, LIPID, VITB12, HBA1C ####Unless otherwise noted, all testing performed by [place] [phone]: [id number] Director: David Mcclain M.D. TSHon 04-17-2017 Thyroid stimulating hormone (TSH) 2.87 uIU/mL Normal 0.320-5.000 [facility] Comment on above: Result Comment: Samp les from patients routinely receiving high dose biotin therapy(100-300 mg/day) may show falsely decreased results. Please correlateclinically. Performed By: #### C BCDIF, MG, TSH, CMET, LIPID, VITB12, HBA1C ####Unless otherwise noted, all testing performed by [address] [phone]: [id number] Director: David Mcclain M.D. Vitamin B12on 04-17-2017 Cobalamins (Vitamin B12) 557 pg/mL Normal 193-986 [facility] Comment on above: Performed By: #### C BCDIF, MG, TSH, CMET, LIPID, VITB12, HBA1C ####Unless otherwise noted, all testing performed by [address] [phone]: [id number] Director: David Mcclain M.D. CBCon 04-09-2017 Erythrocyte distribution width Auto Ratio (RBC) 14.1 % Normal 10.0-14.4 [facility] Comment on above: Performed By: #### C BCWOD, CMET, LIPID, HBA1C ####Unless otherwise noted, all testing performed by [address] [phone]: [id number] Director: David Mcclain M.D. Erythrocytes (RBC) 4.31 M/mcL Invalid Interpretation Code 3.7 - 5.0 [facility] Hematocrit (HCT) 38.1 % Normal 34.4-44.8 [facility] Comment on above: Performed By: #### C BCWOD, CMET, LIPID, HBA1C ####Unless otherwise noted, all testing performed by [address] [phone]: [id number] Director: David Mcclain M.D. Hemoglobin mass conc (Bld) 12.6 g/dL Normal 11.6-15.4 [facility] Comment on above: Performed By: #### C BCWOD, CMET, LIPID, HBA1C ####Unless otherwise noted, all testing performed by [address] [phone]: [id number] Director: David Mcclain M.D. MCH 29.3 pg Normal 27.9-33.9 [facility] Comment on above: Performed By: #### C BCWOD, CMET, LIPID, HBA1C ####Unless otherwise noted, all testing performed by [address] [phone]: [id number] Director: David Mcclain M.D. MCHC mass conc (RBC) 33.1 g/dL Normal 33.1-35.1 [facility] Comment on above: Performed By: #### C BCWOD, CMET, LIPID, HBA1C ####Unless otherwise noted, all testing performed by [address] [phone]: [id number] Director: David Mcclain M.D. MCV 88.4 fL Normal 82.6-98.9 [facility] Comment on above: Performed By: #### C BCWOD, CMET, LIPID, HBA1C ####Unless otherwise noted, all testing performed by [address] [phone]: [id number] Director: David Mcclain M.D. Platelet mean volume (PMV) 8.4 fL Normal 7.0-10.6 [facility] Comment on above: Performed By: #### C BCWOD, CMET, LIPID, HBA1C ####Unless otherwise noted, all testing performed by [address] [phone]: [id number] Director: David Mcclain M.D. Platelets 256 K/mcL Invalid Interpretation Code 162 - 402 [facility] WBC (Leukocytes) 4.2 K/mcL Invalid Interpretation Code 3.4 - 10.6 [facility] CBC w/o Diffon 04-09-2017 Erythrocytes (RBC) 4.31 M/mcL Normal 3.7-5.0 [facility] Comment on above: Performed By: #### C BCWOD, CMET, LIPID, HBA1C ####Unless otherwise noted, all testing performed by [address] [phone]: [id number] Director: David Mcclain M.D. Platelets 256 K/mcL Normal 162-402 [facility] Comment on above: Performed By: #### C BCWOD, CMET, LIPID, HBA1C ####Unless otherwise noted, all testing performed by [address] [phone]: [id number] Director: David Mcclain M.D. WBC (Leukocytes) 4.2 K/mcL Normal 3.4-10.6 [facility] Comment on above: Performed By: #### C BCWOD, CMET, LIPID, HBA1C ####Unless otherwise noted, all testing performed by [address] [phone]: [id number] Director: David Mcclain M.D. [facility] 04-09-2017 Alanine aminotransferase (ALT) 28 U/L Normal 14-65 [facility] Comment on above: Cancelled on LAS :De lete This test result might be falsely depressed or falsely elevated on samples drawn from patients taking Sulfasalazine and Sulfapyridine. Venipuncture should occur prior to taking either of these drugs. Result Comment: Canc elled on LAS :DeleteThis test result might be falsely depressed or falsely elevated onsamples drawn from patients taking Sulfasalazine and Sulfapyridine.Venipuncture should occur prior to taking either of these drugs. Performed By: #### C BCWOD, CMET, LIPID, HBA1C ####Unless otherwise noted, all testing performed by [address], [place] [phone]: [id number] Director: David Mcclain M.D. Albumin 3.0 g/dL Low 3.2-5.2 [facility] Comment on above: Cancelled on LAS :De lete Result Comment: Canc elled on LAS :Delete Performed By: #### C BCWOD, CMET, LIPID, HBA1C ####Unless otherwise noted, all testing performed by [address], [place] [phone]: [id number] Director: David Mcclain M.D. Alkaline phosphatase (ALP) 41 U/L Normal 40-150 [facility] Comment on above: Cancelled on LAS :De lete Result Comment: Canc elled on LAS :Delete Performed By: #### C BCWOD, CMET, LIPID, HBA1C ####Unless otherwise noted, all testing performed by [address], [place] [phone]: [id number] Director: David Mcclain M.D. Aspartate aminotransferase (AST) 16 U/L Normal 0-45 [facility] Comment on above: Cancelled on LAS :De lete This test result might be falsely depressed or falsely elevated on samples drawn from patients taking Sulfasalazine and Sulfapyridine. Venipuncture should occur prior to taking either of these drugs. Result Comment: Canc elled on LAS :DeleteThis test result might be falsely depressed or falsely elevated onsamples drawn from patients taking Sulfasalazine and Sulfapyridine.Venipuncture should occur prior to taking either of these drugs. Performed By: #### C BCWOD, CMET, LIPID, HBA1C ####Unless otherwise noted, all testing performed by [address], [place] [phone]: [id number] Director: David Mcclain M.D. Bilirubin (total) 0.4 mg/dL Normal 0.3-1.2 [facility] Comment on above: Cancelled on LAS :De lete Result Comment: Canc elled on LAS :Delete Performed By: #### C BCWOD, CMET, LIPID, HBA1C ####Unless otherwise noted, all testing performed by [address] [phone]: [id number] Director: David Mcclain M.D. Calcium 8.7 mg/dL Normal 8.4-10.2 [facility] Comment on above: Cancelled on LAS :De lete Result Comment: Canc elled on LAS :Delete Performed By: #### C BCWOD, CMET, LIPID, HBA1C ####Unless otherwise noted, all testing performed by [address] [phone]: [id number] Director: David Mcclain M.D. Chloride 106 mmol/L Normal 98-108 [facility] Comment on above: Cancelled on LAS :De lete Result Comment: Canc elled on LAS :Delete Performed By: #### C BCWOD, CMET, LIPID, HBA1C ####Unless otherwise noted, all testing performed by [address] [phone]: [id number] Director: David Mcclain M.D. CO2 26 mmol/L Normal 21-32 [facility] Comment on above: Cancelled on LAS :De lete Result Comment: Canc elled on LAS :Delete Performed By: #### C BCWOD, CMET, LIPID, HBA1C ####Unless otherwise noted, all testing performed by [address], [place] [phone]: [id number] Director: David Mcclain M.D. Creatinine 0.73 mg/dL Normal 0.40-1.10 [facility] Comment on above: Cancelled on LAS :De lete Result Comment: Canc elled on LAS :Delete Performed By: #### C BCWOD, CMET, LIPID, HBA1C ####Unless otherwise noted, all testing performed by [address] [phone]: [id number] Director: David Mcclain M.D. eGFR (black) mL/min/{1.73_m2} Normal [facility] Comment on above: GFR Calc Result Comment: Afri can [place] GFR Calc Performed By: #### C BCWOD, CMET, LIPID, HBA1C ####Unless otherwise noted, all testing performed by [address] [phone]: [id number] Director: David Mcclain M.D. eGFR (non-black) mL/min/{1.73_m2} Normal [facility] Comment on above: Non- GFR Calc eGFR is an estimated Glomerular Filtration Rate based on the value of the patient's serum creatinine. In outpatients, eGFR should be used as a helpful tool in screening for CKD. In inpatients or patients with acute renal failure, eGFR represents the GFR at the moment of the draw and should be used with caution. Result Comment: Non- GFR CalceGFR is an estimated Glomerular Filtration Rate based on the valueof the patient's serum creatinine. In outpatients, eGFR should be usedas a helpful tool in screening for CKD. In inpatients or patients withacute renal failure, eGFR represents the GFR at the moment of the drawand should be used with caution. Performed By: #### C BCWOD, CMET, LIPID, HBA1C ####Unless otherwise noted, all testing performed by [address] [phone]: [id number] Director: David Mcclain M.D. Glucose mass conc 93 mg/dL Normal 70-99 [facility] Comment on above: Cancelled on LAS :De lete This test result might be falsely depressed or falsely elevated on samples drawn from patients taking Sulfasalazine and Sulfapyridine. Venipuncture should occur prior to taking either of these drugs. Result Comment: Canc elled on LAS :DeleteThis test result might be falsely depressed or falsely elevated onsamples drawn from patients taking Sulfasalazine and Sulfapyridine.Venipuncture should occur prior to taking either of these drugs. Performed By: #### C BCWOD, CMET, LIPID, HBA1C ####Unless otherwise noted, all testing performed by [address], [place] [phone]: [id number] Director: David Mcclain M.D. Potassium molar conc 3.9 mmol/L Normal 3.5-5.1 [facility] Comment on above: Cancelled on LAS :De lete Result Comment: Canc elled on LAS :Delete Performed By: #### C BCWOD, CMET, LIPID, HBA1C ####Unless otherwise noted, all testing performed by [address], [place] [phone]: [id number] Director: David Mcclain M.D. Protein 6.4 g/dL Normal 6.0-8.0 [facility] Comment on above: Cancelled on LAS :De lete Result Comment: Canc elled on LAS :Delete Performed By: #### C BCWOD, CMET, LIPID, HBA1C ####Unless otherwise noted, all testing performed by [address] [phone]: [id number] Director: David Mcclain M.D. Sodium 140 mmol/L Normal 135-145 [facility] Comment on above: Cancelled on LAS :De lete Result Comment: Canc elled on LAS :Delete Performed By: #### C BCWOD, CMET, LIPID, HBA1C ####Unless otherwise noted, all testing performed by [address] [phone]: [id number] Director: David Mcclain M.D. Urea nitrogen 9 mg/dL Normal 8-25 [facility] Comment on above: Cancelled on LAS :De lete Result Comment: Canc elled on LAS :Delete Performed By: #### C BCWOD, CMET, LIPID, HBA1C ####Unless otherwise noted, all testing performed by [address] [phone]: [id number] Director: David Mcclain M.D. Hemoglobin A1con 04-09-2017 Hemoglobin A1c/Hemoglobin.total mass fraction (Bld) 5.6 % Normal 4.1-6.5 [facility] Comment on above: Performed By: #### C BCWOD, CMET, LIPID, HBA1C ####Unless otherwise noted, all testing performed by [address] [phone]: [id number] Director: David Mcclain M.D. Lipid Panelon 04-09-2017 Cholesterol 104 mg/dL Normal 100-199 [facility] Comment on above: Cancelled on LAS :De lete Result Comment: Canc elled on LAS :Delete Performed By: #### C BCWOD, CMET, LIPID, HBA1C ####Unless otherwise noted, all testing performed by [address] [phone]: [id number] Director: David Mcclain M.D. Cholesterol in VLDL mass conc 32 mg/dL Normal 5-40 [facility] Comment on above: Performed By: #### C BCWOD, CMET, LIPID, HBA1C ####Unless otherwise noted, all testing performed by [address] [id number]: [id number] Director: David Mcclain M.D. Cholesterol to HDL Ratio 2.5 {ratio} Low 3.2-5.0 [facility] Comment on above: Female Coronary Hear t Disease Risk Factor (CHDRF): Average risk= 4.4 1/2 Average risk= 3.3 2 times Average risk= 7.1 Result Comment: Fema le Coronary Heart Disease Risk Factor (CHDRF):Average risk= 4.41/2 Average risk= 3.32 times Average risk= 7.1 Performed By: #### C BCWOD, CMET, LIPID, HBA1C ####Unless otherwise noted, all testing performed by [address] [id number]: [id number] Director: David Mcclain M.D. HDL Cholesterol 41 mg/dL Normal 40-59 [facility] Comment on above: Cancelled on LAS :De lete Result Comment: Canc elled on LAS :Delete Performed By: #### C BCWOD, CMET, LIPID, HBA1C ####Unless otherwise noted, all testing performed by [address] [id number]: [id number] Director: David Mcclain M.D. Interpretation and review of laboratory results Abnormal Invalid Interpretation Code [facility] LDL Cholesterol 31 mg/dL Normal 10-150 [facility] Comment on above: Performed By: #### C BCWOD, CMET, LIPID, HBA1C ####Unless otherwise noted, all testing performed by [address] [phone]: [id number] Director: David Mcclain M.D. Triglyceride 159 mg/dL High 25-120 [facility] Comment on above: Cancelled on LAS :De lete Result Comment: Canc elled on LAS :Delete Performed By: #### C BCWOD, CMET, LIPID, HBA1C ####Unless otherwise noted, all testing performed by [address] [phone]: [id number] Director: David Mcclain M.D. Emergency Department Summary on 01-16-2017 [facility] [address] [place], [place] [address] Department Nilhrmd86/07/17 1708#: [id number] Acct: [id number]: SHAJI ESQUIVEL Rep #: [id number]: 1960 56 From: Alli Monae MDPCP: Antwan Watters Status: DEP ER- ER Visit SummaryDate of Service: 01/13/17Chief Complaint: Unable to swallowHistory of Present Illness: The patient is a [address] Watters. She has moderate mentalretardation is not able to give any appropriate history herself. Dr. Watters himself reportsthat the patient has chronic belly pain. However, recently she has been complaining that shecannot swallow and that she has had a significant weight loss. [facility] He is unsure what CT was done. 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 Afebrile.General: Well-nourished and well-developed.Head: Normocephalic atraumatic.Neck: Supple, no lymphadenopathy. No JVD. Nontender.Cardiovascula r: Regular rate and rhythm. No murmurs.Respiratory: No respiratory distress. Clear to auscultation bilaterally.Abdominal: Soft, nontender, nondistended, normal bowel sounds. No guarding, rebound, orperitoneal signs.Back: Nontender.Extremities: Nontender, no edema.Skin: Normal color, no rash.Psych: Normal affect.Test Results: CBC is normal. Chem-7 is marked for glucose 137.Emergency Department Course and Treatment: Patient was able to drink water and eat applesauce.She was given cookies and rolled them in her round and her mouth. She then spit them out andstated that she does not like the way they taste.Treatment Plan: She was discussed again with Dr. Watters as well as Dr. Marquez. She is asuitable candidate for further outpatient evaluation. She will be ordered to have anesophagram with a 12 mm tablet tomorrow. Follow-up with Dr. Marquez in 1 week.Disposition: To home in improved and stable condition.Impression: 1. Dysphagia.This note was generated with Upptalk dictation software. It may contain incorrect words,spelling, and punctuation that were not noted in review of the chart prior to signing.ED Disposition- Plan for ED Patient:Disposition: Home or Assisted LivingChief Complaint: Other, Pain/InjInstructions: Understanding DysphagiaReferrals:Sean Price MD [STAFF PHYSICIAN] - 1 WeekWhat to do if you have ProblemsFor any increased pain, shortness of breath, bleeding, nausea or vomiting, chest pain, or anyunexpected problems, contact your Primary Care Provider. Call [facility] ([phone])or report to the closest Emergency Room.Call 911 if necessary.01/16/17 0831 Date Alli Monae MUSCOGEEosigner Signature (If Indicated): Date CC: Antwan Watters Normal [facility] Esophagus Onlyon 01-14-2017 Esophagus [facility] [id number] AJAY SAXENA [id number] OnlyMR#: [id number] Acct: [id number]: SHAJI ESQUIVEL Rep #: [id number]: 1960 F 56 From: Santo Mendieta MDPCP: Antwan Watters Status: REG CLIStudy: Esophagus Only Date of Exam: 01/14/17Exam# [id number] Ordering Dr: Alli Monae MDSTUDY: X-RAY - ESOPHAGUS (BARIUM SWALLOW) WITH FLUOROSCOPYREASON FOR EXAM: Female, 56 years old. Dysphagia.TECHNIQUE: 26 view(s) of the esophagus were obtained following swallowingof barium.FLUOROSCOPY TIME (if supplied): (1:24) minutes/secondsCOMPARIS ON: None. FINDIN GS:There is no demonstrated esophageal foreign body. There is no demonstratedstricture or mucosal abnormality. Normal gastroesophageal junction,without a demonstrated hiatal hernia. The patient ingested a 12 mm tabletof barium without any difficulty.There is atherosclerotic tortuosity of the aortic arch and descendingthoracic aorta. Normal visualized pulmonary parenchyma.Normal visualized osseous structures of the thorax. ORDE R #: [id number] RAD/Esophagus OnlyIMPRESSION:Normal plain film x-ray examination (barium swallow) of the esophagus.Electronicall y Signed:Santo Mendieta MD at 15:33 EDTTel [id number], Service support , [place]: Antwan Watters; Alli Monae MD Stamp Pad Finisher:Signed Normal [facility] Basic Metabolic Profile (BMP )on 01-13-2017 BUN (urea nitrogen) 12.9 RATIO Normal 10-20 [facility] Comment on above: Performed By: #### L 500.2500 ####[facility] [address] [place], [address] Calcium 9.0 mg/dL Normal 8.5-10.1 [facility] Comment on above: Performed By: #### L 500.2500 ####[facility] [address] [place], [address] Chloride 101 mmol/L Normal 98-107 [facility] Comment on above: Performed By: #### L 500.2500 ####[facility] [address] [place], [address] CO2 31.0 mmol/L Normal 21.0-32.0 [facility] Comment on above: Performed By: #### L 500.2500 ####[facility] [address] [place], [address] Creatinine 0.70 mg/dL Normal 0.55-1.02 [facility] Comment on above: Result Comment: The validity of the calculated GFR AND GFRAA in patients over70 years has not been determined. Clinical correlation isessential. Performed By: #### L 500.2500 ####[facility] [address] [place], [address] eGFR (non-black) 111 mL/min/{1.73_m2} Normal >60 [facility] Comment on above: Result Comment: Afri can Barbadian GFR Calc Performed By: #### L 500.2500 ####[facility] [address] [place], [address] eGFR (non-black) 92 mL/min/{1.73_m2} Normal >60 [facility] Comment on above: Result Comment: Non- GFR Calc Performed By: #### L 500.2500 ####[facility] [address] [place], [address] Estimated CRCL 74.23 ml/min Normal [facility] Comment on above: Performed By: #### L 500.2500 ####[facility] [address] [place], [address] GAP 9 Normal 5-15 [facility] Comment on above: Performed By: #### L 500.2500 ####[facility] [address] [place], [address] Glucose mass conc 137 mg/dL High 70-110 [facility] Comment on above: Result Comment: Fast ing Glucose result greater than or equal to 126 mg/dLsuggests DIABETES MELLITUS per A.D.A. criteria. Performed By: #### L 500.2500 ####[facility] [address] [place], [address] Potassium molar conc 3.8 mmol/L Normal 3.5-5.1 [facility] Comment on above: Performed By: #### L 500.2500 ####[facility] [address] [place], [address] Sodium 141 mmol/L Normal 136-145 [facility] Comment on above: Performed By: #### L 500.2500 ####[facility] [address] [place], [address] Urea nitrogen 9 mg/dL Normal 7-18 [facility] Comment on above: Performed By: #### L 500.2500 ####[facility] [address] [place], [address] CBC W/Diff, Automatedon 08-0 -2016 Absolute Neut 3.8 X10 3/uL Normal 2.0-7.7 [facility] Comment on above: Performed By: #### L 100.0100 ####[facility] [address] [place], [address] Basophils/100 WBC Auto (Bld) 0.0 % Normal 0-1 [facility] Comment on above: Performed By: #### L 100.0100 ####[facility] [address] [place], [address] Eosinophils/100 leukocytes 0.7 % Normal 0-5 [facility] Comment on above: Performed By: #### L 100.0100 ####[facility] [address] [place], [address] Erythrocyte distribution width Auto Ratio (RBC) 13.5 % Normal 11.6-14.6 [facility] Comment on above: Performed By: #### L 100.0100 ####[facility] [address] [place], [address] Erythrocytes (RBC) 4.41 M/mm3 Normal 4.2-5.4 [facility] Comment on above: Performed By: #### L 100.0100 ####[facility] [address] [place], [address] Hematocrit (HCT) 40.1 % Normal 37-47 [facility] Comment on above: Performed By: #### L 100.0100 ####[facility] [address] [place], [address] Hemoglobin mass conc (Bld) 12.4 g/dL Normal 12.0-15.0 [facility] Comment on above: Performed By: #### L 100.0100 ####[facility] [address] [place], [address] IM GRAN % 0.200 % Normal 0.0-0.9 [facility] Comment on above: Result Comment: IG% - Immature Granulocytes (promyelocytes, myelocytes andmetamyelocytes) > 1% indicates that a LEFT SHIFT is Present. Performed By: #### L 100.0100 ####[facility] [address] [place], [address] Lymphocytes 1.55 X10 3/ul Normal 0.83-4.51 [facility] Comment on above: Performed By: #### L 100.0100 ####[facility] [address] [place], [address] Lymphocytes/100 leukocytes 26.3 % Normal 19-41 [facility] Comment on above: Performed By: #### L 100.0100 ####[facility] [address] [place], [address] MCH 28.1 pg Normal 27.0-32.0 [facility] Comment on above: Performed By: #### L 100.0100 ####[facility] [address] [place], [address] MCHC mass conc (RBC) 30.9 g/gl Low 32-36 [facility] Comment on above: Performed By: #### L 100.0100 ####[facility] [address] [place], [address] MCV 90.9 fL Normal 81-99 [facility] Comment on above: Performed By: #### L 100.0100 ####[facility] [address] [place], [address] Monocytes/100 leukocytes 7.6 % Normal 0-10 [facility] Comment on above: Performed By: #### L 100.0100 ####[facility] [address] [place], [address] Neutrophils/100 WBC Auto (Bld) 65.2 % Normal 47-70 [facility] Comment on above: Performed By: #### L 100.0100 ####[facility] [address] [place], [address] Platelet mean volume (PMV) 9.7 fL Normal 6.2-12.0 [facility] Comment on above: Performed By: #### L 100.0100 ####[facility] [address] [place], [address] Platelets 274 10*3/uL Normal 150-450 [facility] Comment on above: Performed By: #### L 100.0100 ####[facility] [address] [place], [address] RDW SD 44.5 fl High 35.1-43.9 [facility] Comment on above: Performed By: #### L 100.0100 ####[facility] [address] [place], [address] WBC (Leukocytes) 5.9 10*3/uL Normal 4.4-11.0 [facility] Comment on above: Performed By: #### L 100.0100 ####[facility] [address] [place], [address] Vital Signs Date Time Vital Sign Value Performing Clinician [facility] 11-11-2024 11:01-0400 Body height 160 cm Marcos Barrera MD Work Phone: [facility] 11-11-2024 11:01-0400 Diastolic blood pressure 83 mm[Hg] Marcos Barrera MD Work Phone: [facility] 11-11-2024 11:01-0400 Heart rate 99 /min Marcos Barrera MD Work Phone: [facility] 11-11-2024 11:01-0400 Systolic blood pressure 136 mm[Hg] Marcos Barrera MD Work Phone: [facility] 10-25-2024 11:07-0400 Diastolic blood pressure 82 mm[Hg] Elizabeth Charlotte DPM Work Phone: [facility] 10-25-2024 11:07-0400 Heart rate 73 /min Elizabeth Erendira DPM Work Phone: [facility] 10-25-2024 11:07-0400 Systolic blood pressure 134 mm[Hg] Elizabeth Erendira DPM Work Phone: [facility] 10-25-2024 11:01-0400 Body temperature 98.29 [degF] Elizabeth Kimble DPM Work Phone: [facility] 09-21-2024 10:37-0400 Body height 160 cm Zara Cristina DO Work Phone: [facility] 09-21-2024 10:37-0400 Body mass index (BMI) [Ratio] 29.35 kg/m2 Zara Cristina DO Work Phone: [facility] 09-21-2024 10:37-0400 Body temperature 98.01 [degF] Zara Cristina DO Work Phone: [facility] 09-21-2024 10:37-0400 Body weight 75.16 kg Zara Cristina DO Work Phone: [facility] 09-21-2024 10:37-0400 Diastolic blood pressure 85 mm[Hg] Zara Cristina DO Work Phone: [facility] 09-21-2024 10:37-0400 Heart rate 79 /min Zara Cristina DO Work Phone: [facility] 09-21-2024 10:37-0400 Respiratory rate 18 /min Zara Cristina DO Work Phone: [facility] 09-21-2024 10:37-0400 SaO2% (BldA) [Mass fraction] 92 % Zara Cristina DO Work Phone: [facility] 09-21-2024 10:37-0400 Systolic blood pressure 132 mm[Hg] Zara Cristina DO Work Phone: [facility] 09-09-2024 14:10-0400 Body height 160 cm Marcos Barrera MD Work Phone: [facility] 09-09-2024 14:10-0400 Body mass index (BMI) [Ratio] 28.87 kg/m2 Marcos Barrera MD Work Phone: [facility] 09-09-2024 14:10-0400 Body weight 73.94 kg Marcos Barrera MD Work Phone: [facility] 09-09-2024 14:10-0400 Diastolic blood pressure 71 mm[Hg] Marcos Barrera MD Work Phone: [facility] 09-09-2024 14:10-0400 Heart rate 60 /min Marcos Barrera MD Work Phone: [facility] 09-09-2024 14:10-0400 Systolic blood pressure 105 mm[Hg] Marcos Barrera MD Work Phone: [facility] 07-29-2024 11:30-0500 Body height 160 cm Zara Cristina DO Work Phone: [facility] 07-29-2024 11:30-0500 Body mass index (BMI) [Ratio] 28.34 kg/m2 Zara Cristina DO Work Phone: [facility] 07-29-2024 11:30-0500 Body temperature 98.29 [degF] Zara Cristina DO Work Phone: [facility] 07-29-2024 11:30-0500 Body weight 72.58 kg Zara Cristina DO Work Phone: [facility] 07-29-2024 11:30-0500 Diastolic blood pressure 76 mm[Hg] Zara Cristina DO Work Phone: [facility] 07-29-2024 11:30-0500 Heart rate 83 /min Zara Cristina DO Work Phone: [facility] 07-29-2024 11:30-0500 Respiratory rate 17 /min Zara Cristina DO Work Phone: [facility] 07-29-2024 11:30-0500 SaO2% (BldA) [Mass fraction] 94 % Zara Cristina DO Work Phone: [facility] 07-29-2024 11:30-0500 Systolic blood pressure 135 mm[Hg] Zara Cristina DO Work Phone: [facility] 07-27-2024 09:57-0500 Body temperature 98.4 [degF] Elizabethamy Kimble DPM Work Phone: [facility] 07-27-2024 09:57-0500 Diastolic blood pressure 78 mm[Hg] Elizabeth Charlotte DPM Work Phone: [facility] 07-27-2024 09:57-0500 Heart rate 86 /min Elizabeth Erendira DPM Work Phone: [facility] 07-27-2024 09:57-0500 Systolic blood pressure 133 mm[Hg] Elizabeth Erendira DPM Work Phone: [facility] 07-13-2024 09:53-0500 Diastolic blood pressure 83 mm[Hg] Zara Cristina DO Work Phone: [facility] 07-13-2024 09:53-0500 Systolic blood pressure 136 mm[Hg] Zara Cristina DO Work Phone: [facility] 07-13-2024 09:17-0500 Body height 160 cm Zara Cristina DO Work Phone: [facility] 07-13-2024 09:17-0500 Body mass index (BMI) [Ratio] 28.34 kg/m2 Zara Cristina DO Work Phone: [facility] 07-13-2024 09:17-0500 Body temperature 98.1 [degF] Zara Cristina DO Work Phone: [facility] 07-13-2024 09:17-0500 Body weight 72.58 kg Zara Cristina DO Work Phone: [facility] 07-13-2024 09:17-0500 Heart rate 81 /min Zara Cristina DO Work Phone: [facility] 07-13-2024 09:17-0500 Respiratory rate 17 /min Zara Cristina DO Work Phone: [facility] 07-13-2024 09:17-0500 SaO2% (BldA) [Mass fraction] 90 % Zara Cristina DO Work Phone: [facility] 07-09-2024 12:08-0500 Diastolic blood pressure 86 mm[Hg] Miles Ying DO Work Phone: [facility] 07-09-2024 12:08-0500 Heart rate 84 /min Miles Mcnairune DO Work Phone: [facility] 07-09-2024 12:08-0500 Respiratory rate 17 /min Miles Mcnairune DO Work Phone: [facility] 07-09-2024 12:08-0500 SaO2% (BldA) [Mass fraction] 97 % Miles Mcnairune DO Work Phone: [facility] 07-09-2024 12:08-0500 Systolic blood pressure 156 mm[Hg] Miles Ying DO Work Phone: [facility] 07-09-2024 11:00-0500 Body temperature 98.49 [degF] Miles Mcnairune DO Work Phone: [facility] 06-28-2024 12:46-0500 Body height 167.6 cm Rafa Oberhauser DO Work Phone: [facility] 06-28-2024 12:46-0500 Body mass index (BMI) [Ratio] 25.82 kg/m2 Rafa Oberhauser DO Work Phone: [facility] 06-28-2024 12:46-0500 Body weight 72.58 kg Rafa Oberhauser DO Work Phone: [facility] 06-28-2024 12:46-0500 Diastolic blood pressure 71 mm[Hg] Rafa Oberhauser DO Work Phone: [facility] 06-28-2024 12:46-0500 Heart rate 93 /min Rafa Oberhauser DO Work Phone: [facility] 06-28-2024 12:46-0500 Systolic blood pressure 129 mm[Hg] Rafa Oberhauser DO Work Phone: [facility] 06-23-2024 14:00-0500 Diastolic blood pressure 83 mm[Hg] Zara Cristina DO Work Phone: [facility] 06-23-2024 14:00-0500 Systolic blood pressure 134 mm[Hg] Zara Cristina DO Work Phone: [facility] 06-23-2024 13:02-0500 Body height 160 cm Zara Cristina DO Work Phone: [facility] 06-23-2024 13:02-0500 Body mass index (BMI) [Ratio] 28.34 kg/m2 Zara Cristina DO Work Phone: [facility] 06-23-2024 13:02-0500 Body temperature 98.6 [degF] Zara Cristina DO Work Phone: [facility] 06-23-2024 13:02-0500 Body weight 72.58 kg Zara Cristina DO Work Phone: [facility] 06-23-2024 13:02-0500 Heart rate 92 /min Zara Cristina DO Work Phone: [facility] 06-23-2024 13:02-0500 Respiratory rate 16 /min Zara Cristina DO Work Phone: [facility] 06-23-2024 13:02-0500 SaO2% (BldA) [Mass fraction] 91 % Zara Cristina DO Work Phone: [facility] 04-27-2024 10:09-0500 Body temperature 98.2 [degF] Elizabeth Erendira DPM Work Phone: [facility] 04-27-2024 10:09-0500 Diastolic blood pressure 85 mm[Hg] Elizabeth Charlotte DPM Work Phone: [facility] 04-27-2024 10:09-0500 Heart rate 86 /min Elizabeth Erendira DPM Work Phone: [facility] 04-27-2024 10:09-0500 Systolic blood pressure 130 mm[Hg] Elizabeth Charlotte DPM Work Phone: [facility] 03-29-2024 12:42-0400 Body height 167.6 cm Rafa Oberhauser DO Work Phone: [facility] 03-29-2024 12:42-0400 Diastolic blood pressure 80 mm[Hg] Rafa Oberhauser DO Work Phone: [facility] 03-29-2024 12:42-0400 Heart rate 89 /min Rafa Oberhauser DO Work Phone: [facility] 03-29-2024 12:42-0400 Systolic blood pressure 128 mm[Hg] Rafa Oberhauser DO Work Phone: [facility] 02-05-2024 10:28-0400 Body height 167.6 cm Tracy Babak [employer] WORK[employer] Work Phone: [facility] 02-05-2024 10:28-0400 Body mass index (BMI) [Ratio] 25.82 kg/m2 Tracy Babak BE[employer] WORKER[employer]IST Work Phone: [phone] [place] [address] 02-05-2024 10:28-0400 Body weight 72.58 kg Tracy Babak BE[employer] WORKER-[employer]IED [employer]IST Work Phone: [phone] [place] [address] 02-05-2024 10:28-0400 Diastolic blood pressure 85 mm[Hg] Tracy Babak BE[employer] WORKER-[employer]IED [employer]IST Work Phone: [facility] 02-05-2024 10:28-0400 Heart rate 83 /min Tracy Babak BEST WORKER-C[employer]IED [employer]IST Work Phone: [facility] 02-05-2024 10:28-0400 Systolic blood pressure 137 mm[Hg] Tracy Babak BEST WORKER-[employer]IED [employer]IST Work Phone: [facility] 02-03-2024 10:46-0400 Body height 165.1 cm Sachin Morales MD Work Phone: [facility] 02-03-2024 10:46-0400 Body mass index (BMI) [Ratio] 25.63 kg/m2 Sachin Morales MD Work Phone: [facility] 02-03-2024 10:46-0400 Body weight 69.85 kg Sachin Morales MD Work Phone: [facility] 01-29-2024 09:55-0400 Diastolic blood pressure 67 mm[Hg] Darin Trujillo MD Work Phone: [facility] 01-29-2024 09:55-0400 Heart rate 83 /min Darin Trujillo MD Work Phone: [facility] 01-29-2024 09:55-0400 Respiratory rate 18 /min Darin Trujillo MD Work Phone: [facility] 01-29-2024 09:55-0400 SaO2% (BldA) [Mass fraction] 96 % Darin Trujillo MD Work Phone: [facility] 01-29-2024 09:55-0400 Systolic blood pressure 123 mm[Hg] Darin Trujillo MD Work Phone: [facility] 01-29-2024 06:56-0400 Body height 167.6 cm Darin Trujillo MD Work Phone: [facility] 01-29-2024 06:56-0400 Body mass index (BMI) [Ratio] 24.61 kg/m2 Darin Trujillo MD Work Phone: [facility] 01-29-2024 06:56-0400 Body temperature 97 [degF] Darin Trujillo MD Work Phone: [facility] 01-29-2024 06:56-0400 Body weight 69.17 kg Darin Trujillo MD Work Phone: [facility] 01-26-2024 14:02-0400 Diastolic blood pressure 83 mm[Hg] Elizabeth Erendira DPM Work Phone: [facility] 01-26-2024 14:02-0400 Heart rate 92 /min Elizabeth Charlotte DPM Work Phone: [facility] 01-26-2024 14:02-0400 Systolic blood pressure 144 mm[Hg] Elizabeth Erendira DPM Work Phone: [facility] 01-26-2024 13:49-0400 Body temperature 98.4 [degF] Elizabeth Erendira DPM Work Phone: [facility] 01-21-2024 10:36-0400 Diastolic blood pressure 77 mm[Hg] Huy Vasquez PA-C Work Phone: [facility] 01-21-2024 10:36-0400 Heart rate 95 /min Huy Vasquez PA-C Work Phone: [facility] 01-21-2024 10:36-0400 SaO2% (BldA) [Mass fraction] 96 % Huy Vasquez PA-C Work Phone: [facility] 01-21-2024 10:36-0400 Systolic blood pressure 159 mm[Hg] Huy Vasquez PA-C Work Phone: [facility] 01-08-2024 09:26-0400 Diastolic blood pressure 85 mm[Hg] Mina Ortiz MD Work Phone: [facility] 01-08-2024 09:26-0400 Heart rate 100 /min Mina Ortiz MD Work Phone: [facility] 01-08-2024 09:26-0400 Respiratory rate 16 /min Mina Ortiz MD Work Phone: [facility] 01-08-2024 09:26-0400 SaO2% (BldA) [Mass fraction] 92 % Mina Ortiz MD Work Phone: [facility] 01-08-2024 09:26-0400 Systolic blood pressure 147 mm[Hg] Mina Ortiz MD Work Phone: [facility] 12-29-2023 16:43-0400 Body height 157.5 cm Rafa Jacinto DO Work Phone: [facility] 12-29-2023 16:43-0400 Body mass index (BMI) [Ratio] 28.53 kg/m2 Rafa Vicker DO Work Phone: [facility] 12-29-2023 16:43-0400 Body weight 70.76 kg Rafa Oberhauser DO Work Phone: [facility] 12-29-2023 16:43-0400 Diastolic blood pressure 82 mm[Hg] Rafa Oberhauser DO Work Phone: [facility] 12-29-2023 16:43-0400 Heart rate 101 /min Rafa Oberhauser DO Work Phone: [facility] 12-29-2023 16:43-0400 Systolic blood pressure 139 mm[Hg] Rafa Oberhauser DO Work Phone: [facility] 12-24-2023 09:35-0400 Body height 165.1 cm Sachin Morales MD Work Phone: [facility] 12-17-2023 08:04-0400 Body height 157.5 cm Tracy Babak BEST WORKER-CERTIFIED PEER SPECIALIST Work Phone: [facility] 12-17-2023 08:04-0400 Body mass index (BMI) [Ratio] 28.17 kg/m2 Tracy Babak BEST WORKER-CERTIFIED PEER SPECIALIST Work Phone: [facility] 12-17-2023 08:04-0400 Body weight 69.85 kg Tracy Babak BEST WORKER-CERTIFIED PEER SPECIALIST Work Phone: [facility] 12-17-2023 08:04-0400 Diastolic blood pressure 78 mm[Hg] Tracy Babak BEST WORKER-CERTIFIED PEER SPECIALIST Work Phone: [facility] 12-17-2023 08:04-0400 Heart rate 72 /min Tracy Babak BEST WORKER-CERTIFIED PEER SPECIALIST Work Phone: [facility] 12-17-2023 08:04-0400 Systolic blood pressure 144 mm[Hg] Tracy Babak BEST WORKER-CERTIFIED PEER SPECIALIST Work Phone: [facility] 12-16-2023 13:56-0400 Body height 165.1 cm Priscilla Mackey CERTIFIED PEER SPECIALIST Work Phone: [facility] 12-16-2023 13:56-0400 Body mass index (BMI) [Ratio] 25.63 kg/m2 Priscilla Mackey CERTIFIED PEER SPECIALIST Work Phone: [facility] 12-16-2023 13:56-0400 Body weight 69.85 kg Priscilla Mackey CERTIFIED PEER SPECIALIST Work Phone: [facility] 12-16-2023 13:56-0400 Diastolic blood pressure 81 mm[Hg] Priscilla Mackey CERTIFIED PEER SPECIALIST Work Phone: [facility] 12-16-2023 13:56-0400 Heart rate 90 /min Priscilla Mackey CERTIFIED PEER SPECIALIST Work Phone: [facility] 12-16-2023 13:56-0400 SaO2% (BldA) [Mass fraction] 96 % Priscilla Mackey CERTIFIED PEER SPECIALIST Work Phone: [facility] 12-16-2023 13:56-0400 Systolic blood pressure 135 mm[Hg] Priscilla Mackey CERTIFIED PEER SPECIALIST Work Phone: [facility] 12-04-2023 11:46-0400 Diastolic blood pressure 63 mm[Hg] Jasmyn Luisersen DO Work Phone: [facility] 12-04-2023 11:46-0400 Heart rate 97 /min Jasmyn Wade DO Work Phone: [facility] 12-04-2023 11:46-0400 Respiratory rate 16 /min Jasmyn Wade DO Work Phone: [facility] 12-04-2023 11:46-0400 SaO2% (BldA) [Mass fraction] 96 % Jasmyn Wade DO Work Phone: [facility] 12-04-2023 11:46-0400 Systolic blood pressure 177 mm[Hg] Jasmyn Liusersen DO Work Phone: [facility] 12-04-2023 11:15-0400 Body temperature 96.8 [degF] Jasmyn Wade DO Work Phone: [facility] 12-04-2023 09:04-0400 Body height 157.5 cm Jasmyn Wade DO Work Phone: [facility] 12-04-2023 09:04-0400 Body mass index (BMI) [Ratio] 25.97 kg/m2 Jasmyn Wade DO Work Phone: [facility] 12-04-2023 09:04-0400 Body weight 64.41 kg Jasmyn Wade DO Work Phone: [facility] 10-14-2023 08:15-0400 Body temperature 97 [degF] Elizabeth Erendira DPM Work Phone: [facility] 10-14-2023 08:15-0400 Diastolic blood pressure 83 mm[Hg] Elizabeth Charlotte DPM Work Phone: [facility] 10-14-2023 08:15-0400 Heart rate 96 /min Elizabeth Charlotte DPM Work Phone: [facility] 10-14-2023 08:15-0400 Systolic blood pressure 159 mm[Hg] Elizabeth Charlotte DPM Work Phone: [facility] 07-15-2023 08:42-0500 Body temperature 97.9 [degF] Elizabeth Charlotte DPM Work Phone: [facility] 07-15-2023 08:42-0500 Diastolic blood pressure 80 mm[Hg] Elizabeth Charlotte DPM Work Phone: [facility] 07-15-2023 08:42-0500 Heart rate 89 /min Elizabeth Erendira DPM Work Phone: [facility] 07-15-2023 08:42-0500 Systolic blood pressure 136 mm[Hg] Elizabeth Erendira DPM Work Phone: [facility] 06-23-2023 10:52-0500 Diastolic blood pressure 88 mm[Hg] Mina Ortiz MD Work Phone: [facility] 06-23-2023 10:52-0500 Heart rate 83 /min Mina Ortiz MD Work Phone: [facility] 06-23-2023 10:52-0500 SaO2% (BldA) [Mass fraction] 97 % Mina Ortiz MD Work Phone: [facility] 06-23-2023 10:52-0500 Systolic blood pressure 122 mm[Hg] Mina Ortiz MD Work Phone: [facility] 04-21-2023 13:09-0500 Body height 157.5 cm Rafa Oberhauser DO Work Phone: [facility] 04-21-2023 13:09-0500 Body mass index (BMI) [Ratio] 24.14 kg/m2 Rafa Oberhauser DO Work Phone: [facility] 04-21-2023 13:09-0500 Body weight 59.88 kg Rafa Oberhauser DO Work Phone: [facility] 04-21-2023 13:09-0500 Diastolic blood pressure 78 mm[Hg] Rafa Oberhauser DO Work Phone: [facility] 04-21-2023 13:09-0500 Heart rate 95 /min Rafa Oberhauser DO Work Phone: [facility] 04-21-2023 13:09-0500 Systolic blood pressure 127 mm[Hg] Rafa Oberhauser DO Work Phone: [facility] 12-19-2022 11:38-0400 Diastolic blood pressure 76 mm[Hg] Mina Ortiz MD Work Phone: [facility] 12-19-2022 11:38-0400 Heart rate 79 /min Mina Ortiz MD Work Phone: [facility] 12-19-2022 11:38-0400 SaO2% (BldA) [Mass fraction] 91 % Mina Ortiz MD Work Phone: [facility] 07-13-2023 11:38-0400 Systolic blood pressure 117 mm[Hg] Mina Ortiz MD Work Phone: [facility] 10-08-2022 02:02-0400 Diastolic blood pressure 37 mm[Hg] Antwan Maharaj Other Phone: [facility] 10-08-2022 02:02-0400 Heart rate 86 /min Antwan Maharaj Other Phone: [facility] 10-08-2022 02:02-0400 Respiratory rate 16 /min Antwan Maharaj Other Phone: [facility] 10-08-2022 02:02-0400 SaO2% (BldA) [Mass fraction] 94 % Antwan Maharaj Other Phone: [facility] 10-08-2022 02:02-0400 Systolic blood pressure 91 mm[Hg] Antwan Maharaj Other Phone: [facility] 08-18-2022 16:48-0400 Diastolic blood pressure 76 mm[Hg] Antwan Maharaj Other Phone: [facility] 08-18-2022 16:48-0400 Heart rate 84 /min Antwan Maharaj Other Phone: [facility] 08-18-2022 16:48-0400 Respiratory rate 18 /min Antwan Maharaj Other Phone: [facility] 08-18-2022 16:48-0400 SaO2% (BldA) [Mass fraction] 95 % Antwan Maharaj Other Phone: [facility] 08-18-2022 16:48-0400 Systolic blood pressure 164 mm[Hg] Antwan Maharaj Other Phone: [facility] 08-18-2022 14:37-0400 Body temperature 98.06 [degF] Antwan Maharaj Other Phone: [facility] 08-18-2022 14:37-0400 Body weight 60.5 kg Antwan Harrietcory Other Phone: [facility] 08-09-2022 13:35-0500 Diastolic blood pressure 71 mm[Hg] Antwan Gusdomo Other Phone: [facility] 08-09-2022 13:35-0500 Heart rate 74 /min Antwan Gusdomo Other Phone: [facility] 08-09-2022 13:35-0500 Respiratory rate 18 /min Antwan Harrietcory Other Phone: [facility] 08-09-2022 13:35-0500 SaO2% (BldA) [Mass fraction] 97 % Antwan Harrietcory Other Phone: [facility] 08-09-2022 13:35-0500 Systolic blood pressure 132 mm[Hg] Antwan Gusdomo Other Phone: [facility] 08-09-2022 11:23-0500 Body height 157.4 cm Antwan Harrietcory Other Phone: [facility] 08-09-2022 11:23-0500 Body temperature 98.06 [degF] Antwan Gusdomo Other Phone: [facility] 08-09-2022 11:23-0500 Body weight 60 kg Antwan Gusdomo Other Phone: [facility] 08-01-2022 10:27-0500 Body height 162.6 cm Mina Ortiz MD Work Phone: [facility] 08-01-2022 10:27-0500 Body mass index (BMI) [Ratio] 22.83 kg/m2 Mina Ortiz MD Work Phone: [facility] 08-01-2022 10:27-0500 Body weight 60.33 kg Mina Ortiz MD Work Phone: [facility] 08-01-2022 10:27-0500 Diastolic blood pressure 75 mm[Hg] Mina Ortiz MD Work Phone: [facility] 08-01-2022 10:27-0500 Heart rate 80 /min Mina Ortiz MD Work Phone: [facility] 08-01-2022 10:27-0500 Respiratory rate 16 /min Mina rOtiz MD Work Phone: [facility] 08-01-2022 10:27-0500 SaO2% (BldA) [Mass fraction] 95 % Mina Ortiz MD Work Phone: [facility] 08-01-2022 10:27-0500 Systolic blood pressure 113 mm[Hg] Mina Ortiz MD Work Phone: [facility] 04-27-2019 13:37-0500 BMI (Body Mass Index) 19.4 kg/m2 Ti Rhodes [facility] 04-27-2019 13:37-0500 Body weight 51.26 kg Tijackie Rhodes [facility] 04-27-2019 13:37-0500 Height 162.6 cm Tijackie Rhodes [facility] Encounters Encounter Date Encounter Type Care Provider Facility Start: 12-06-2024 End: 12-07-2024 Refill Zara Evans DO Work Phone: [facility] Start: 11-17-2024 ambulatory ZARA EVANS [facility] Start: 11-11-2024 End: 11-11-2024 Office outpatient visit 15 minutes Marcos Barrera MD Work Phone: [facility] Comment on above: Gastroesophageal ref lux disease, unspecified whether esophagitis present (Primary Dx) Start: 11-11-2024 End: 11-11-2024 ambulatory MARCOS BARRERA [facility] Ambulatory Start: 10-25-2024 End: 10-25-2024 Patient encounter procedure Elizabeth Kimble DPM Work Phone: [facility] Comment on above: Onychomycosis (Prima ry Dx); Onychodystrophy; Diabetic peripheral neuropathy (HCC); Pain due to onychomycosis of toenail of right foot Start: 10-25-2024 End: 10-25-2024 ambulatory ELIZABETH KIMBLE [facility] Ambulato ry Start: 10-12-2024 End: 10-12-2024 Chart abstracting Zara Evans DO Work Phone: [facility] Start: 10-10-2024 End: 12-10-2024 Follow-up encounter Zara Evans DO Work Phone: [facility] Comment on above: MTB SCREEN Start: 09-30-2024 End: 09-30-2024 Orders Only Oren Araujo MD Work Phone: [facility] Comment on above: Type 2 diabetes susi itus without complication, without long- term current use of insulin (HCC) (Primary Dx) Start: 09-23-2024 End: 09-23-2024 Orders Only Zara Evans DO Work Phone: [facility] Comment on above: At risk for tubercul osis (Primary Dx) Start: 09-21-2024 End: 09-21-2024 Office outpatient visit 25 minutes Zara Evans DO Work Phone: [facility] Comment on above: Type 2 diabetes susi itus without complication, without long- term current use of insulin (HCC) (Primary Dx); Recurrent falls; Abnormal CT of the abdomen Start: 09-21-2024 End: 09-21-2024 ambulatory ZARA EVANS [facility] Ambul[facility] Start: 09-16-2024 End: 09-16-2024 Orders Only Zara Evans DO Work Phone: [facility] Start: 09-15-2024 End: 09-16-2024 Refill Zara Evans DO Work Phone: [facility] Start: 09-09-2024 End: 09-09-2024 Office outpatient new 30 minutes Zara Evans DO Work Phone: [facility] Comment on above: Abnormal CT of the a bdomen Start: 09-09-2024 End: 09-09-2024 ambulatory ZARA EVANS [facility] Amb[facility] Start: 09-08-2024 End: 09-12-2024 ambulatory Shelley Anuradha Movens PA-C Work Phone: [facility] Comment on above: Parkinson's disease, unspecified whether dyskinesia present, unspecified whether manifestations fluctuate (HCC) (Primary Dx); Primary osteoarthritis involving multiple joints; Frequent falls Start: 09-06-2024 End: 09-06-2024 Documentation procedure Zara Evans DO Work Phone: [facility] Comment on above: [facility] Start: 09-06-2024 End: 09-10-2024 ambulatory Shelley Anuradha Movens PA-C Work Phone: [facility] Comment on above: Parkinson's disease, unspecified whether dyskinesia present, unspecified whether manifestations fluctuate (HCC) (Primary Dx); Primary osteoarthritis involving multiple joints; Frequent falls Start: 09-02-2024 End: 09-06-2024 ambulatory Shelley Anuradha Movens PA-C Work Phone: [facility] Comment on above: Parkinson's disease, unspecified whether dyskinesia present, unspecified whether manifestations fluctuate (HCC) (Primary Dx); Primary osteoarthritis involving multiple joints; Frequent falls Start: 09-02-2024 ambulatory ZARA EVANS [facility] Ambulatory Start: 2024 End: 09-03-2024 ambulatory Shelley Anuradha Movens PA-C Work Phone: [facility] Comment on above: Parkinson's disease, unspecified whether dyskinesia present, unspecified whether manifestations fluctuate (HCC) (Primary Dx); Primary osteoarthritis involving multiple joints; Frequent falls Start: 08-27-2024 End: 08-31-2024 ambulatory Shelley Anuradha Movens PA-C Work Phone: [facility] Comment on above: Parkinson's disease, unspecified whether dyskinesia present, unspecified whether manifestations fluctuate (HCC) (Primary Dx); Primary osteoarthritis involving multiple joints; Frequent falls Start: 08-26-2024 End: 2024 ambulatory Shelley Maldonado PA-C Work Phone: [facility] Comment on above: Parkinson's disease, unspecified whether dyskinesia present, unspecified whether manifestations fluctuate (HCC) (Primary Dx); Primary osteoarthritis involving multiple joints; Frequent falls Start: 08-19-2024 End: 08-23-2024 ambulatory Shelley Maldonado PA-C Work Phone: [facility] Comment on above: Parkinson's disease, unspecified whether dyskinesia present, unspecified whether manifestations fluctuate (HCC) (Primary Dx); Primary osteoarthritis involving multiple joints; Frequent falls Constipation, unspec ified constipation type (Primary Dx); Frequent falls Start: 08-13-2024 End: 08-13-2024 [facility]ation [facility] Comment on above: Occupational Therapy ; Neuro Start: 08-13-2024 ambulatory [facility] Start: 08-05-2024 ambulatory ZARA EVANS [facility] Ambulatory Start: 08-03-2024 End: 08-03-2024 Transcribe Orders Shelley Maldonado PA-C Work Phone: [facility] Comment on above: Closed fracture of s ternum with routine healing, unspecified portion of sternum, subsequent encounter (Primary Dx); Multiple falls; Parkinson's disease, unspecified whether dyskinesia present, unspecified whether manifestations fluctuate (HCC); Primary osteoarthritis involving multiple joints Start: 08-02-2024 End: 08-06-2024 ambulatory Shelley Maldonado PA-C Work Phone: [facility] Comment on above: Parkinson's disease, unspecified whether dyskinesia present, unspecified whether manifestations fluctuate (HCC) (Primary Dx); Primary osteoarthritis involving multiple joints; Frequent falls; Multiple falls Start: 07-29-2024 End: 07-29-2024 Office outpatient visit 15 minutes Zara Evans DO Work Phone: [facility] Comment on above: Recurrent falls (Teresa jayesh Dx) Start: 07-29-2024 End: 07-29-2024 ambulatory ZARA EVANS [facility] Amb[facility] Start: 07-27-2024 End: 07-27-2024 Patient encounter procedure Elizabeth Kimble DPM Work Phone: [facility] Comment on above: Onychomycosis (Prima ry Dx); Onychodystrophy; Diabetic peripheral neuropathy (HCC); Pain due to onychomycosis of toenail of right foot Start: 07-27-2024 End: 07-27-2024 ambulatory ZARA EVANS [facility] Amb[facility] Start: 07-26-2024 End: 07-26-2024 Orders Only Zara Marlon Evans DO Work Phone: [facility] Comment on above: Abnormal CT of the a bdomen (Primary Dx) Start: 07-26-2024 ambulatory ZARA EVANS [facility] Ambulatory Start: 07-19-2024 End: 07-23-2024 Evaluation and management of inpatient [facility] Start: 07-14-2024 End: 07-14-2024 Emergency department patient visit [facility] Start: 07-13-2024 End: 07-13-2024 Office outpatient visit 25 minutes Zara Marlon Evans DO Work Phone: [facility] Comment on above: Recurrent falls (Teresa jayesh Dx); Primary osteoarthritis involving multiple joints Start: 07-13-2024 End: 07-13-2024 ambulatory ZARA EVANS [facility] Start: 07-09-2024 End: 07-09-2024 Emergency department patient visit Miles He DO Work Phone: [facility] Comment on above: Fall, initial encoun ter (Primary Dx); Contusion of right knee and lower leg, initial encounter Start: 06-28-2024 End: 06-28-2024 ambulatory RAFA [facility] Ambulatory Start: 06-28-2024 End: 06-28-2024 Office [facility] Work [facility] Comment on above: Acquired hypothyroid ism (Primary Dx); Primary hypertension; Gastroesophageal reflux disease without esophagitis; Schizophrenia, unspecified type; Parkinson's disease without dyskinesia or fluctuating manifestations; Balance disorder Start: 06-23-2024 End: 06-23-2024 Office outpatient new 45 minutes Zara Evans DO Work Phone: [facility] Comment on above: Primary hypertension (Primary Dx); Type 2 diabetes mellitus without complication, without long-term current use of insulin (HCC); Parkinson's disease, unspecified whether dyskinesia present, unspecified whether manifestations fluctuate (HCC); Schizophrenia, unspecified type (HCC); Recurrent falls Start: 06-23-2024 End: 06-23-2024 ambulatory ZARA EVANS [facility] Amb[facility] Start: 05-26-2024 End: 05-26-2024 ambulatory [facility] Start: 05-25-2024 ambulatory MINA ORTIZ [facility] Start: 05-19-2024 End: 05-19-2024 ambulatory [facility] Start: 05-18-2024 End: 05-18-2024 Refill Mina Ortiz MD Work Phone: [facility] Comment on above: Parkinson disease (H CC) Start: 05-11-2024 End: 05-11-2024 ambulatory [facility] Start: 05-05-2024 End: 05-05-2024 ambulatory [facility] Start: 05-04-2024 End: 05-04-2024 ambulatory [facility] Start: 04-28-2024 End: 04-28-2024 ambulatory [facility] Start: 04-27-2024 End: 04-27-2024 ambulatory [facility] Start: 04-27-2024 End: 04-27-2024 ambulatory ELIZABETH KIMBLE [facility] Amb[facility] Start: 04-27-2024 End: 04-27-2024 Patient encounter procedure Elizabeth Kimble DPM Work Phone: [facility] Comment on above: Onychomycosis (Prima ry Dx); Onychodystrophy; Diabetic peripheral neuropathy (HCC); Pain due to onychomycosis of toenail of right foot Start: 04-22-2024 End: 04-22-2024 ambulatory [facility] Start: 04-20-2024 End: 04-20-2024 ambulatory [facility] Start: 04-15-2024 End: 04-15-2024 ambulatory [facility] Start: 03-29-2024 End: 03-29-2024 ambulatory [facility] Ambulatory Start: 03-29-2024 End: 03-29-2024 Office outpatient visit 25 minutes Rafa Jacinto DO Work Phone: [facility] Comment on above: Type 2 diabetes susi itus without complication, without long- term current use of insulin (Multi) (Primary Dx); Primary hypertension; Acquired hypothyroidism; Gastroesophageal reflux disease without esophagitis; Stage 3a chronic kidney disease (Multi); Schizophrenia, unspecified type; Parkinson's disease without dyskinesia or fluctuating manifestations Start: 03-22-2024 End: 03-22-2024 ambulatory [facility] Start: 03-12-2024 End: 03-12-2024 ambulatory [facility] Start: 03-01-2024 End: 03-01-2024 ambulatory [facility] Start: 02-27-2024 End: 02-27-2024 ambulatory [facility] Start: 02-25-2024 End: 02-25-2024 ambulatory [facility] Start: 02-23-2024 End: 02-23-2024 ambulatory [facility] Start: 02-13-2024 End: 02-13-2024 ambulatory [facility] Start: 02-11-2024 End: 02-11-2024 ambulatory [facility] Start: 02-10-2024 End: 02-10-2024 ambulatory [facility] Start: 02-05-2024 End: 02-05-2024 Office outpatient visit 15 minutes Tracy Angelman BEST WORKER-CERTIFIED PEER SPECIALIST Work Phone: [facility] Comment on above: Other closed fractur e of distal end of right ulna, initial encounter (Primary Dx) Start: 02-05-2024 End: 02-05-2024 ambulatory [facility] Amb[facility] Start: 02-04-2024 End: 02-04-2024 ambulatory [facility] Start: 02-03-2024 End: 02-03-2024 Office outpatient visit 15 minutes Sachin Morales MD Work Phone: [facility] Comment on above: Right wrist pain (Pr imary Dx) Start: 02-03-2024 End: 02-03-2024 Orders Only Mariana Oates BENEFITS CONSULTANT [facility] Comment on above: Pain (Primary Dx) Start: 02-02-2024 End: 02-02-2024 ambulatory [facility] Start: 01-30-2024 End: 01-30-2024 ambulatory [facility] Start: 01-29-2024 End: 01-30-2024 ambulatory DARIN TRUJILLO [facility] Start: 01-29-2024 End: 01-29-2024 Subsequent hospital visit by physician Sabas Greenev[facility] Comment on above: Arrived Start: 01-29-2024 End: 01-29-2024 Emergency department patient visit Darin Trujillo MD Work Phone: [facility] Comment on above: Subluxation of dista l end of right ulna, subsequent encounter (Primary Dx); Contusion of right forearm, initial encounter; Contusion of right knee, initial encounter; Subluxation of tooth Start: 01-26-2024 End: 01-26-2024 Patient encounter procedure Elizabeth Kimble DPM Work Phone: [facility] Comment on above: Onychomycosis; Onychodystrophy; Diabetic peripheral neuropathy (HCC); Pain due to onychomycosis of toenail of right foot Start: 01-26-2024 End: 01-26-2024 ambulatory ELIZABETH HANSENR [facility] Amb[facility] Start: 01-23-2024 End: 01-23-2024 ambulatory [facility] Start: 01-22-2024 End: 01-22-2024 ambulatory [facility] Start: 01-21-2024 End: 01-21-2024 ambulatory [facility] Start: 01-21-2024 End: 01-21-2024 Office outpatient visit 15 minutes Huy Vasquez PA-C Work Phone: [facility] Comment on above: SAH (subarachnoid he morrhage) (HCC) (Primary Dx) Start: 01-21-2024 End: 01-21-2024 ambulatory HUY VASQUEZ [facility] Amb[facility] Start: 01-16-2024 End: 01-16-2024 ambulatory [facility] Start: 01-12-2024 End: 01-12-2024 ambulatory [facility] Start: 01-09-2024 End: 01-09-2024 ambulatory [facility] Start: 01-08-2024 End: 01-08-2024 ambulatory MINA ORTIZ [facility] Start: 01-08-2024 End: 01-08-2024 Office outpatient visit 40 minutes Mina Ortiz MD Work Phone: [facility] Comment on above: Parkinson disease (H CC) Start: 01-06-2024 End: 01-06-2024 ambulatory HUY VASQUEZ [facility] Start: 01-02-2024 End: 01-02-2024 ambulatory [facility] Start: 12-31-2023 End: 12-31-2023 ambulatory [facility] Start: 12-29-2023 End: 12-29-2023 ambulatory [facility] Ambulatory Start: 12-29-2023 End: 12-29-2023 Office outpatient visit 25 minutes Rafa Amy [facility] Work Phone: [facility] Comment on above: Primary hypertension (Primary Dx); Type 2 diabetes mellitus without complication, without long-term current use of insulin (Multi); Acquired hypothyroidism; Disease of thyroid gland; Gastroesophageal reflux disease without esophagitis; Stage 3a chronic kidney disease (Multi); Schizophrenia, unspecified type (Multi); Parkinson's disease without dyskinesia or fluctuating manifestations (Multi) Start: 12-26-2023 End: 12-26-2023 ambulatory [facility] Start: 12-24-2023 End: 12-24-2023 ambulatory [facility] Start: 12-24-2023 End: 12-24-2023 ambulatory SACHIN MORALES [facility] Start: 12-24-2023 End: 12-24-2023 Postop follow up visit related to original px Sachin Morales MD Work Phone: [facility] Comment on above: Right wrist pain (Pr imary Dx) Start: 12-18-2023 End: 12-18-2023 Orders Only Sachin Morales MD Work Phone: [facility] Comment on above: Pain (Primary Dx) Start: 12-17-2023 End: 12-17-2023 Office outpatient visit 40 minutes [facility] BEST WORKER-CERTIFIED PEER SPECIALIST Work Phone: [facility] Comment on above: Parkinson's disease with fluctuating manifestations, unspecified whether dyskinesia present (Multi) (Primary Dx); Subarachnoid hemorrhage (Multi) Start: 12-17-2023 End: 12-17-2023 ambulatory [facility] Start: 12-16-2023 End: 12-16-2023 ambulatory PRISCILLA MACKEY [facility] Ambulato ry Start: 12-16-2023 End: 12-16-2023 Office outpatient visit 15 minutes Priscilla Mackey CERTIFIED PEER SPECIALIST Work Phone: [facility] Comment on above: SAH (subarachnoid he morrhage) (HCC) (Primary Dx) Start: 12-08-2023 End: 12-08-2023 Orders Only Huy Vasquez PA-C Work Phone: [facility] Comment on above: SAH (subarachnoid he morrhage) (HCC) (Primary Dx) Start: 12-04-2023 End: 12-05-2023 Evaluation and management of inpatient [facility] Start: 12-04-2023 End: 12-04-2023 Emergency department patient visit Jasmyn Wade DO Work Phone: [facility] Comment on above: Fall, initial encoun ter (Primary Dx); Traumatic hemorrhage of right cerebrum with loss of consciousness of 30 minutes or less, initial encounter (Multi); Facial abrasion, initial encounter; Contusion of face, initial encounter; Dislocation of right wrist, initial encounter Start: 10-15-2023 End: 10-15-2023 ambulatory [facility] Start: 10-14-2023 End: 10-14-2023 Office outpatient visit 15 minutes Elizabeth Parveen Hansenr DPM Work Phone: [facility] Comment on above: Diabetic peripheral neuropathy (HCC) (Primary Dx); Onychodystrophy; Onychomycosis; Pain due to onychomycosis of toenail of right foot Start: 07-19-2023 End: 07-19-2023 Emergency department patient visit [facility] Start: 07-15-2023 End: 07-15-2023 Office outpatient new 30 minutes Elizabeth Sabry Charlotte DPM Work Phone: [facility] Comment on above: Comprehensive diabet ic foot examination, type 2 DM, encounter for (HCC) (Primary Dx); Diabetic peripheral neuropathy (HCC); Onychodystrophy; Onychomycosis; Pain due to onychomycosis of toenail of right foot Start: 07-10-2023 End: 07-10-2023 Subsequent hospital visit by physician Sabas [id number] [facility] Comment on above: Encounter for screen ing mammogram for malignant neoplasm of breast Start: 06-25-2023 Orders Only Mina Ortiz MD Work Phone: [facility] Comment on above: Parkinson disease Start: 06-24-2023 Refill Mary Anne Julianne strickland MA [facility] Comment on above: Parkinson disease Start: 06-23-2023 End: 06-23-2023 Office outpatient visit 25 minutes Mina Ortiz MD Work Phone: [facility] Comment on above: Parkinson disease Start: 04-21-2023 End: 04-21-2023 Office outpatient new 45 minutes Rafa Jacinto DO Work Phone: [facility] Comment on above: Encounter for screen ing mammogram for malignant neoplasm of breast (Primary Dx); Type 2 diabetes mellitus without complication, without long-term current use of insulin ([facility]); Acquired hypothyroidism; Stage 3a chronic kidney disease ([facility]); Parkinson's disease without dyskinesia or fluctuating manifestations; Schizophrenia, unspecified type ([facility]) Start: 02-04-2023 Patient encounter procedure [facility]twan Maharaj Work [facility] Work Phone: Start: 01-29-2023 Patient encounter procedure Antwan Maharaj Work Phone: [facility] Work Phone: Start: 01-29-[address] Antwan Maharaj Facility:[id number] Start: 01-21-[address] Antwan Maharaj Facility:[id number] Start: 01-21-2023 Patient encounter procedure [facility]twan Maharaj Work Phone: [facility] Work Phone: Start: 01-14-2023 Patient encounter procedure Antwan Maharaj Work Phone: [facility] Work Phone: Start: 01-14-[address] Antwan Maharaj Facility:[id number] Start: 12-31-[address] Antwan Maharaj Facility:[id number] Start: 12-24-[address] Antwan Maharaj Facility:[id number] Start: 12-24-2022 Patient encounter procedure Antwan Maharaj Work Phone: [facility] Work Phone: Start: 12-19-[address] Antwan Maharaj Facility:[id number] Start: 12-19-2022 Patient encounter procedure Antwan Maharaj Work Phone: [facility] Work Phone: Start: 12-19-2022 End: 12-19-2022 Office outpatient visit 25 minutes Mina Ortiz MD Work Phone: [facility] Comment on above: Parkinson disease (H CC) Start: 12-03-2022 Patient encounter procedure Antwan Maharaj Work Phone: [facility] Work Phone: Start: 12-03-[address] Antwan Maharaj Facility:[id number] Start: 11-25-2022 Patient encounter procedure Antwan Maharaj Work Phone: [facility] Work Phone: Start: 11-25-[address] Antwan Maharaj Facility:[id number] Start: 11-06-2022 End: 11-06-2022 Emergency department patient visit Erickson Hernandez [facility] Emergency Start: 10-07-2022 End: 10-08-2022 Emergency department patient visit Osiel Vergara [facility] Emergency 11 Start: 08-18-2022 End: 08-18-2022 Emergency department patient visit Sharmaine Dean [facility] Emergency 12 Start: 08-09-2022 End: 08-09-2022 Emergency department patient visit Erickson Hernandez [facility] Emergency Start: 08-01-2022 End: 08-01-2022 Office outpatient visit 25 minutes Mina Ortiz MD Work Phone: [facility] Comment on above: Parkinson disease (H CC) (Primary Dx) Start: 05-25-2022 End: 05-26-2022 Emergency department patient visit France Lowe [facility] Emergency 07 Start: 04-22-[address] Antwan Maharaj Facility:[id number] Start: 04-17-2022 End: 04-18-2022 ambulatory MINA ORTIZ [facility] Start: 04-15-2022 Orders Only Mina Ortiz MD Work Phone: [facility] Comment on above: NPH (normal pressure hydrocephalus) (HCC) (Primary Dx); Abnormal coagulation profile NPH (normal pressure hydrocephalus) (HCC) (Primary Dx) Start: 11-15-2021 Transcribe Orders Antwan espinoza MD Work Phone: [facility] Central Scheduling Comment on above: Other symptoms and s igns involving the nervous system (Primary Dx); Abnormal brain MRI Start: 05-18-2019 End: 05-18-2019 Office outpatient visit 10 minutes Tijackie Shea Floridalma Work Phone: [facility] Comment on above: Fracture of unspecif ied phalanx of left little finger, initial encounter for closed fracture (Primary Dx) Start: 04-27-2019 End: 04-27-2019 Office outpatient new 30 minutes Antwan Maharaj Work Phone: [facility] Comment on above: Fracture of unspecif ied phalanx of left little finger, initial encounter for closed fracture Start: 11-03-2018 End: 11-03-2018 Patient encounter procedure Antwan Maharaj Work Phone: [facility] Comment on above: Dysphagia, unspecifi ed type Start: 12-25-2017 Patient encounter Antwan Maharaj Fa [facility]ility:[facility] Start: 07-26-2017 Patient encounter Antwan Maharaj Fa [facility]ility:[facility] Start: 04-17-2017 End: 04-17-2017 Patient encounter Antwan Maharaj Facility:[facility] Start: 04-09-2017 End: 04-09-2017 Ambulatory Antwan Watters Work Phone: [facility] Start: 01-14-2017 Ambulatory [facility] Facility :[facility] Start: 01-13-2017 End: 01-13-2017 Emergency department patient visit [facility] Facility:[facility] Procedures Date Procedure Procedure Detail Performing Clinician Start: 07-09-2024 Radex hip unilateral with pelvis 2-3 views Miles He DO Work Phone: Start: 06-28-2024 Thyrotropin [Units/v olume] in Serum or Plasma Miles He DO Work Phone: Start: 05-24-2024 SCAN OTHER ORDERS Zara Evans DO Work Phone: Start: 03-12-2024 Thyrotropin [Units/v olume] in Serum or Plasma Rafa Jacinto DO Work Phone: Start: 01-29-2024 Radex forearm 2 views Bobby Trujillo MD Work Phone: Start: 01-29-2024 Ecg routine ecg w/le ast 12 lds trcg only w/o i&r Darin Trujillo MD Work Phone: Start: 12-04-2023 Basic metabolic pane l calcium total Jasmyn Wade DO Work Phone: Start: 12-04-2023 Ct cervical spine w/ o contrast material Jasmyn Wade DO Work Phone: Start: 12-04-2023 Ct head/brain w/o co ntrast material Jasmyn Wade DO Work Phone: Start: 12-04-2023 End: 12-04-2023 Radex forearm 2 views Jasmyn Wade DO Work Phone: Start: 10-15-2023 Comprehensive metabo lic 2000 panel - Serum or Plasma RAFA OBERHAUSER Start: 10-15-2023 Hemoglobin A1c/Hemoglobin.total in Blood RAFA JACINTO Start: 10-15-2023 Lipid panel RAFA PEREZR Start: 10-15-2023 T-SPOT TB RAFA BAZAN Start: 10-15-2023 TSH WITH REFLEX TO F REE T4 IF ABNORMAL RAFA JACINTO Start: 10-15-2023 Lipid 1996 panel - S marcell or Plasma Jasmyn Wade DO Work Phone: Start: 10-15-2023 Thyrotropin [Units/v olume] in Serum or Plasma Jasmyn Wade DO Work Phone: Start: 07-19-2023 NURSING COMMUNICATIO N - DO NOT USE IN ORDER SETS RAFA JACINTO Start: 07-19-2023 CT CERVICAL SPINE WO IV CONTRAST RAFA JACINTO Start: 07-19-2023 CT HEAD WO IV CONTRAST RAFA JACINTO Start: 07-10-2023 End: 07-10-2023 Screening mammography bi 2-view breast inc cad Rafa Jacinto DO Work Phone: Start: 11-06-2022 End: 11-06-2022 EKG impression Erickson Hernandez Start: 12-13-2021 Lipid 1995 panel - S marcell or Plasma Rafa Jacinto DO Work Phone: Start: 12-13-2021 Thyrotropin [Units/v olume] in Serum or Plasma Rafa Jacinto DO Work Phone: Start: 07-03-2021 Microscopic observat ion [Identifier] in Cervix by Cyto stain Rafa Jacinto DO Work Phone: Start: 06-19-2021 Mammography Rafa bazan DO Work Phone: Start: 11-03-2018 Diagnostic radiograp hy of upper gastrointestinal tract with serial films External Transcribed Plan of Treatment Date Care Activity Detail Author Start: 08-31-2035 Respiratory Syncytial Virus Immunization: Risk, 60-74 Risk, or 75+ (1 - 1-dose 75+ series) Respiratory Syncytial Virus Immunization: Risk, 60-74 Risk, or 75+ (1 - 1-dose 75+ series) [facility] Start: 07-14-2034 Tetanus vaccination Tetanus: Every 10yrs [facility] Start: 07-19-2033 DTaP/Tdap/Td Vaccines (4 - Td or Tdap) DTaP/Tdap/Td Vaccines (4 - Td or Tdap) [facility] Start: 07-19-2033 Tetanus vaccination Tetanus: Every 10yrs [facility] Start: 08-09-2032 DTaP/Tdap/Td Vaccines (2 - Td or Tdap) DTaP/Tdap/Td Vaccines (2 - Td or Tdap) [facility] Start: 08-09-2032 Tetanus vaccination Tetanus: Every 10yrs [facility] Start: 11-17-2028 Tetanus vaccination [facility] Start: 09-21-2025 Urine screening for protein Urine (micro)albumin/creatini ne ratio - Diabetes [facility] Start: 07-19-2025 eGFR Diabetes eGFR Diabetes [facility] Start: 07-19-2025 Urine screening for protein eGFR Diabetes [facility] Start: 07-11-2025 Screening for malignant neoplasm of colon [facility] Start: 06-28-2025 Thyroid stimulating hormone measurement TSH Level [facility] Start: 03-30-2025 End: 03-30-2025 Patient encounter procedure 03/30/2025 10:40 AM EDT Office Visit [facility] [address] [place] [address] Zara Evans DO [address] [address] [facility] Start: 03-12-2025 Thyroid stimulating hormone measurement TSH Level [facility] Start: 03-03-2025 Glaucoma screening Diabetes: Retinopathy Screening [facility] Start: 02-07-2025 Influenza vaccination Influenza Vaccine (#1) [facility] Start: 01-24-2025 End: 01-24-2025 Patient encounter procedure 01/24/2025 11:30 AM EDT Office Visit [facility] [address] [facility] [place] [phone] Elizabeth Kimble DPM [address] [place] [address] [facility] Start: 01-11-2025 End: 01-11-2025 Patient encounter procedure 01/11/2025 9:40 AM EDT Office Visit [facility] [address] [facility] Medical Office Building, 2nd [place] [address] Mina Ortiz MD [address] [address] [facility] Start: 12-30-2024 End: 12-30-2024 Patient encounter procedure 12/30/2024 11:20 AM EDT Office Visit [facility] [address] [place] [phone] Zara Evans DO [address] [address] [facility] Start: 12-21-2024 Hemoglobin A1c measurement A1C [facility] Start: 12-04-2024 Urine screening for protein eGFR Diabetes [facility] Start: 11-11-2024 End: 11-11-2024 Patient encounter procedure 11/11/2024 11:00 AM EDT Office Visit [facility] [address] [place] [phone] Marcos Barrera MD [address] [place] [address] [facility] Start: 10-25-2024 End: 10-25-2024 Patient encounter procedure 10/25/2024 11:00 AM EDT Office Visit [facility] [address] [place] [address] Elizabeth Kimble DPM [address] [place] [address] [facility] Start: 10-14-2024 Lipid panel Lipid Panel [facility] Start: 10-14-2024 Thyroid stimulating hormone measurement TSH Level [facility] Start: 09-30-2024 End: 09-30-2024 Patient encounter procedure [facility] Start: 09-26-2024 Hemoglobin A1c measurement [facility] Start: 09-21-2024 End: 09-21-2024 Patient encounter procedure 09/21/2024 10:40 AM EDT Office Visit [facility] [address] [place] [address] [place] [address] [place] [address] [facility] Start: 09-09-2024 End: 09-09-2024 Patient encounter procedure 09/09/2024 2:00 PM EDT Office Visit [facility] [address] [place] [address] Zara Evans DO [address] [address] Marcos Barrera MD [address] [place] [address] [facility] Start: 09-08-2024 End: 09-08-2024 ambulatory 09/08/2024 10:15 AM EDT Treatment [facility] [address] [place] [phone] Shelley Maldonado PA-C [address] [place] [address] Julianne Buck, PT [facility] Start: 09-06-2024 End: 09-06-2024 ambulatory 09/06/2024 10:15 AM EDT Treatment [facility] [address] [place] [address] Shelley Maldonado PA-C [address] [facility] [place] [address] [facility] Start: 09-02-2024 End: 09-02-2024 ambulatory 09/02/2024 10:15 AM EDT Treatment [facility] [address] [place] [address] Shelley Maldonado PA-C [address] [place] [address] [facility] Start: 2024 End: 2024 ambulatory 2024 10:15 AM EDT Treatment [facility] [address] [place] [address] Shelley Maldonado PA-C [address] [place] [address] [facility] Start: 08-27-2024 End: 08-27-[address] [facility] Start: 08-26-2024 End: 08-26-2024 ambulatory 08/26/2024 10:15 AM EDT Treatment [facility] [address] [place] [address] Shelley Maldonado PA-C [address] [place] [address] [facility] Start: 08-13-2024 End: 08-13-2024 ambulatory 08/13/2024 10:15 AM EST Evaluation [facility] [address] [place] [address] Shelley Maldonado PA-C [address] [place] [address] Soto Daly, OT Discharge Disposition: Home [facility] Start: 08-02-2024 End: 08-02-2024 ambulatory 08/02/2024 12:30 PM EST Evaluation [facility] [address] [place] [address] Shelley Maldonado PA-C [address] [place] [address] Julianne Buck, PT Discharge Disposition: Home [facility] Start: 07-29-2024 End: 07-29-2024 Patient encounter procedure 07/29/2024 11:20 AM EST Office Visit [facility] [address] [place] [address] Zara Evans DO [address] [place] [address] [facility] Start: 07-27-2024 End: 07-27-2024 Patient encounter procedure 07/27/2024 10:00 AM EST Office Visit [facility] [address] [place] [address] Elizabeth Kimble, BHUMI [address] [place] [address] [facility] Start: 07-22-2024 End: 07-22-2024 Patient encounter procedure 07/22/2024 11:20 AM EST Office Visit [facility] [address] [place] [address] Zara Evans DO [address] [place] [address] [facility] Start: 07-15-2024 Diabetic foot examination Diabetic Foot Exam [facility] Start: 07-10-2024 Screening for malignant neoplasm of breast Mammogram [facility] Start: 07-03-2024 Screening for malignant neoplasm of cervix [facility] Start: 06-28-2024 End: 06-28-2025 TSH with reflex to Free T4 if abnormal [facility] Service Area Work Phone: Comment on above: Expected: 06/28/2024 (Approximate), Expi res: 06/28/2025 Start: 06-28-2024 End: 06-28-2024 Patient encounter procedure 06/28/2024 12:40 PM EST Office Visit [facility] [address] [address] Rafa Jacinto, DO [address] [facility] [place] [address] [facility] Start: 06-12-2024 Hemoglobin A1c measurement [facility] Start: 04-27-2024 End: 04-27-2024 Patient encounter procedure 04/27/2024 10:00 AM EST Office Visit [facility] [address] [place] [phone] Elizabeth Kimble, DPM [address] [place] [address] [facility] Start: 04-15-2024 End: 04-15-2024 ambulatory 04/15/2024 9:45 AM EST Treatment [facility] [address] [place] [address] Perla Robbins, OT [address] [place] [address] [facility] Start: 03-29-2024 End: 03-29-2024 Patient encounter procedure 03/29/2024 12:40 PM EDT Office Visit [facility] [address] [address] Rafa Jacinto L, DO [address] [facility] [place] [address] [facility] Start: 03-03-2024 Glaucoma screening Diabetes: Retinopathy Screening [facility] Start: 03-01-2024 End: 03-01-2024 ambulatory 03/01/2024 9:30 AM EDT Treatment [facility] [address] [facility] [address] [place] [address] Nimco Reyna, PT [address] [facility] [place], [place] [phone] [facility] Start: 02-20-2024 End: 02-20-2024 ambulatory 02/20/2024 8:30 AM EDT Treatment [facility] [address] [facility] [address] [place] [address] Justa Rondon, DIGITAL MARKETING STRATEGIST [address] [facility] [place], [place] [phone] [facility] Start: 02-18-2024 End: 02-18-2024 ambulatory 02/18/2024 9:15 AM EDT Treatment [facility] [address] [facility] [address] [place] [address] Della Rivera, DIGITAL MARKETING STRATEGIST [address] [place] [address] [facility] Start: 02-16-2024 End: 02-16-2024 ambulatory 02/16/2024 10:00 AM EDT Treatment [place] [id number] [place] [address] [place] [address] [place] [facility] Department [place] [address] [facility] Start: 02-13-2024 End: 02-13-2024 ambulatory 02/13/2024 3:30 PM EDT Treatment [facility] [address] [facility] [address] [place] [address] Mary Anne Enriquez, DIGITAL MARKETING STRATEGIST [address] [facility] [place] [phone] [facility] Start: 02-11-2024 End: 02-11-2024 ambulatory 02/11/2024 2:00 PM EDT Treatment [facility] [address] [facility] [address] [place] [address] Mary Anne Enriquez, DIGITAL MARKETING STRATEGIST [address] [place] [address] [facility] Start: 02-10-2024 End: 02-10-2024 ambulatory 02/10/2024 10:30 AM EDT Treatment [address] [address] Pooja Malave OTA [facility] [place] [address] [facility] Start: 02-08-2024 COVID-19 Vaccine ( season) COVID-19 Vaccine ( season) [facility] Start: 02-08-2024 Influenza vaccination Influenza Vaccine (#1) [facility] Start: 02-05-2024 End: 02-05-2024 ambulatory 02/05/2024 9:45 AM EDT Treatment [address] [address] Pooja Malave OTA [address] [facility] [address] [facility] Start: 02-04-2024 End: 02-04-2024 ambulatory 02/04/2024 3:30 PM EDT Treatment [facility] [address] [address] Della Rivera, DIGITAL MARKETING STRATEGIST [address] [facility] Services [place], [place] [address] [facility] Start: 02-02-2024 End: 02-02-2024 ambulatory 02/02/2024 10:00 AM EDT Treatment [facility] [address] [place] [phone] [place] [address] [place] [facility] Department [place] [address] [facility] Start: 01-30-2024 End: 01-30-2024 ambulatory 01/30/2024 10:00 AM EDT Treatment [facility] [address] [place] [phone] Elbert Sosa, PT [address] [facility] [place] [address] [facility] Start: 01-26-2024 End: 01-26-2024 Patient encounter procedure 01/26/2024 1:45 PM EDT Office Visit [facility] [address] [place] [address] Elizabeth Kimble, BHUMI [address] [place] [address] [facility] Start: 01-26-2024 End: 01-26-2024 Patient encounter procedure 01/26/2024 8:30 AM EDT Office Visit [facility] [address] [place] [address] Elizabeth Kimble DPM [address] [place] [address] [facility] Start: 01-23-2024 End: 01-23-2024 ambulatory 01/23/2024 9:15 AM EDT Treatment [facility] [address] [facility] [address] [place] [address] Denise Morgan, DIGITAL MARKETING STRATEGIST [address] [facility] [place] [address] [facility] Start: 01-21-2024 End: 01-21-2024 ambulatory 01/21/2024 3:30 PM EDT Treatment [facility] [address] [facility] [address] [place] [address] Della Rivera, DIGITAL MARKETING STRATEGIST [address] [facility] [place] [address] [facility] Start: 01-21-2024 End: 01-21-2024 Patient encounter procedure 01/21/2024 10:15 AM EDT Office Visit [facility] [address] [facility] [place] [id number] Huy Vasquez PA-C [address] [place] [address] [facility] Start: 01-19-2024 End: 01-19-2024 Patient encounter procedure 01/19/2024 8:15 AM EDT Office Visit [facility] [address] [place] [address] Elizabeth Kimble DPM [address] [place] [address] [facility] Start: 01-16-2024 End: 01-16-2024 ambulatory 01/16/2024 2:00 PM EDT Treatment [facility] [address] [facility] [address] [place] [address] Della Rivera, DIGITAL MARKETING STRATEGIST [address] [facility] [place] [address] [facility] Start: 01-15-2024 Hemoglobin A1c measurement [facility] Start: 01-12-2024 End: 01-12-2024 ambulatory 01/12/2024 11:30 AM EDT Evaluation [facility] [address] [place] [address] [place] [address] [place] [facility] Department [place] [address] [facility] Start: 01-09-2024 End: 01-09-2024 ambulatory 01/09/2024 9:15 AM EDT Treatment [facility] [address] [address] Denise Morgan, DIGITAL MARKETING STRATEGIST [address] [facility] [place] [address] [facility] Start: 01-08-2024 End: 01-08-2024 Patient encounter procedure 01/08/2024 8:40 AM EDT Office Visit [facility] [address] Medical Office [facility], 2nd [place] [address] Mina Ortiz MD [facility] [address] [address] [facility] Start: 01-07-2024 End: 01-07-2024 ambulatory 01/07/2024 7:45 AM EDT Treatment [facility] [address] [facility] 130 [place] [address] Denise Morgan, DIGITAL MARKETING STRATEGIST [address] [facility] [place] [address] [facility] Start: 01-06-2024 End: 01-06-2024 Patient encounter procedure 01/06/2024 10:00 AM EDT Appointment [facility] Emergency Department CT Scan [address] [place] [address] Huy Vasquez PA-C [address] [facility] Mariusz [address] [address] [facility] Emergency Department CT Scan Start: 01-05-2024 End: 12-07-2024 CT Head WO contrast CT Head Or Brain Without Contrast Imaging Routine SAH (subarachnoid hemorrhage) (HCC) Expected: 01/05/2024, Expires: 12/07/2024 [facility] Work Phone: Comment on above: Expected: 01/05/2024, Expires: Start: 01-02-2024 End: 01-02-2024 ambulatory 01/02/2024 9:15 AM EDT Treatment [facility] [address] [facility] 130 [place] [address] Denise Morgan, DIGITAL MARKETING STRATEGIST [address] [facility] [place] [address] [facility] Start: 12-31-2023 End: 12-31-2023 ambulatory 12/31/2023 9:15 AM EDT Treatment [facility] [address] [facility] 130 [place] [address] Denise Morgan, DIGITAL MARKETING STRATEGIST [address] [facility] [place] [address] [facility] Start: 12-29-2023 End: 12-29-2023 Patient encounter procedure 12/29/2023 4:40 PM EDT Office Visit [facility] [address] [place] [address] Rafa Jacinto, DO [address] [facility] [address] [facility] Start: 12-29-2023 End: 12-28-2024 Comprehensive metabolic 2000 panel - Serum or Plasma Comprehensive Metabolic Panel Lab Routine Type 2 diabetes mellitus without complication, without long-term current use of insulin (Multi) Expected: 12/29/2023 (Approximate), Expires: 12/28/2024 [facility] Work Phone: Comment on above: Expected: 12/29/2023 (Approximate), Expi res: 12/28/2024 Start: 12-29-2023 End: 12-28-2024 Hemoglobin A1c/Hemoglobin.total in Blood Hemoglobin A1C Lab Routine Type 2 diabetes mellitus without complication, without long-term current use of insulin (Multi) Expected: 12/29/2023 (Approximate), Expires: 12/28/2024 [facility] Service Area Work Phone: Comment on above: Expected: 12/29/2023 (Approximate), Expi res: 12/28/2024 Start: 12-29-2023 End: 12-28-2024 TSH with reflex to Free T4 if abnormal TSH with reflex to Free T4 if abnormal Lab Routine Type 2 diabetes mellitus without complication, without long-term current use of insulin (Multi) Expected: 12/29/2023 (Approximate), Expires: 12/28/2024 [facility] Work Phone: Comment on above: Expected: 12/29/2023 (Approximate), Expi res: 12/28/2024 Start: 12-24-2023 End: 12-24-2023 ambulatory 12/24/2023 1:15 PM EDT Evaluation [facility] [address] [place] [address] Ana Landaverde, CITRUS PICKER [address] [facility] [place] [address] ILAN Garcia Start: 12-24-2023 End: 12-24-2023 Patient encounter procedure 12/24/2023 9:30 AM EDT Office Visit [facility] [address] [facility] [place] [address] Sachin Morales MD [address] [place] [address] [facility] Start: 12-16-2023 End: 12-16-2023 Patient encounter procedure 12/16/2023 1:40 PM EDT Office Visit [facility] [address] [place] [address] Medical Office [facility], 5th [place] [address] Priscilla Mackey, CERTIFIED PEER SPECIALIST [address] [place] [address] [facility] Start: 10-20-2023 End: 04-21-2024 Comprehensive metabolic 2000 panel - Serum or Plasma Comprehensive Metabolic Panel Lab Routine Type 2 diabetes mellitus without complication, without long-term current use of insulin (CMS/HCC) Expected: 10/20/2023 (Approximate), Expires: 04/21/2024 [facility] Work Phone: Comment on above: Expected: 10/20/2023 (Approximate), Expi res: 04/21/2024 Start: 10-20-2023 End: 04-21-2024 Hemoglobin A1c/Hemoglobin.total in Blood Hemoglobin A1C Lab Routine Type 2 diabetes mellitus without complication, without long-term current use of insulin (CMS/HCC) Expected: 10/20/2023 (Approximate), Expires: 04/21/2024 [facility] Work Phone: Comment on above: Expected: 10/20/2023 (Approximate), Expi res: 04/21/2024 Start: 10-20-2023 End: 04-21-2024 Lipid 1996 panel - Serum or Plasma Lipid Panel Lab Routine Type 2 diabetes mellitus without complication, without long-term current use of insulin ([facility]) Expected: 10/20/2023 (Approximate), Expires: 04/21/2024 [facility] Work Phone: Comment on above: Expected: 10/20/2023 (Approximate), Expi res: 04/21/2024 Start: 10-20-2023 End: 04-21-2024 TSH with reflex to Free T4 if abnormal TSH with reflex to Free T4 if abnormal Lab Routine Acquired hypothyroidism Expected: 10/20/2023 (Approximate), Expires: 04/21/2024 [facility] Work Phone: Comment on above: Expected: 10/20/2023 (Approximate), Expi res: 04/21/2024 Start: 10-20-2023 End: 10-20-2023 Patient encounter procedure 10/20/2023 10:20 AM EDT Office Visit [facility] [address] [facility] 1 [place] [address] Rafa Jacinto L, DO [address] [facility] [place] [address] [facility] Start: 10-14-2023 End: 10-14-2023 Patient encounter procedure 10/14/2023 8:15 AM EDT Office Visit [facility] [address] [place] [address] Elizabeth Kimble, BHUMI [address] [place] [address] [facility] Start: 07-10-2023 End: 07-10-2023 Professional / ancillary services management 07/10/2023 10:00 AM EST Ancillary Procedure [place] [id number] [address] [facility] Start: 06-20-2023 End: 06-21-2024 DBT Breast - bilateral BI mammo bilateral screening tomosynthesis Imaging Routine Encounter for screening mammogram for malignant neoplasm of breast Expected: 06/20/2023, Expires: 06/21/2024 [facility] Service Area Work Phone: Comment on above: Expected: 06/20/2023, Expires: Start: 02-07-2023 Influenza vaccination [facility] Start: 02-04-2023 PTRECHADUL, Provider: Bibi V[place]la, Status: Pen, Time: 9:30 AM PTRECHADUL, Provider: Bibi [place]la, Status: Pen, Time: 9:30 AM [facility] Work Phone: Start: 01-29-2023 [email or web address], Provider: Bibi V[place]la, Status: Pen, Time: 9:15 AM [email or web address], Provider: Bibi [place]la, Status: Pen, Time: 9:15 AM [facility] Work Phone: Start: 01-21-2023 [email or web address], Provider: Bibi [place]la, Status: Pen, Time: 9:00 AM PTFUADULT4, Provider: Bibi [place]la, Status: Pen, Time: 9:00 AM [facility] Work Phone: Start: 12-31-2022 PTRECHECKA, Provider: Bibi Villela, Status: Pen, Time: 10:00 AM PTRECHECKA, Provider: Bibi V[place]la, Status: Pen, Time: 10:00 AM [facility] Work Phone: Start: 12-24-2022 [email or web address], Provider: Bibi Villela, Status: Pen, Time: 11:30 AM PTFUADULT4, Provider: Bibi V[place]la, Status: Pen, Time: 11:30 AM [facility] Work Phone: Start: 12-19-2022 [email or web address], Provider: Bibi Villela, Status: Pen, Time: 10:00 AM PTFUADULT4, Provider: Bibi Villela, Status: Pen, Time: 10:00 AM [facility] Work Phone: Start: 12-13-2022 Lipid panel Lipid Panel [facility] Start: 12-13-2022 Thyroid stimulating hormone measurement TSH Level [facility] Start: 12-03-2022 [email or web address], Provider: Bibi V[place]la, Status: Pen, Time: 3:30 PM PTFUADULT4, Provider: Bibi [place]la, Status: Pen, Time: 3:30 PM [facility] Work Phone: Start: 11-18-2022 Administration of herpes zoster vaccine Zoster Vaccines (2 of 2) [facility] Start: 08-01-2022 End: 08-01-2022 Patient encounter procedure 08/01/2022 Office Visit Neurology Mina Ortiz MD [address] [place] [address] [facility] Start: 06-19-2022 Screening for malignant neoplasm of breast Mammogram [facility] Start: 04-24-2022 End: 04-24-2022 Patient encounter procedure 04/24/2022 Appointment Radiology Mina Ortiz MD [address] [place] [address] [facility] Start: 04-17-2022 Subsequent hospital visit by physician 04/17/2022 Hospital Encounter Radiology Mina Ortiz MD [address] [place] [address] [facility] Start: 03-15-2022 Hemoglobin A1c measurement [facility] Start: 02-07-2022 Influenza vaccination Sequential Influenza Vaccine (Season Ended) [facility] Start: 2020 Respiratory Syncytial Virus Immunization: Risk, 60-74 Risk, or 75+ (1 - Risk 60-74 years 1-dose series) Respiratory Syncytial Virus Immunization: Risk, 60-74 Risk, or 75+ (1 - Risk 60-74 years 1-dose series) [facility] Start: 2020 RSV High Risk: (Elderly (60+) or Population) (1 - Risk 60-74 years 1-dose series) RSV High Risk: (Elderly (60+) or Population) (1 - Risk 60-74 years 1-dose series) [facility] Start: 2020 RSV patients and/or patients aged 60+ years (1 - 1-dose 60+ series) RSV patients and/or patients aged 60+ years (1 - 1-dose 60+ series) [facility] Start: 05-03-2020 Pneumococcal vaccination Pneumococcal Vaccine (2 of 2 - PCV) [facility] Start: 05-03-2020 Pneumococcal Vaccine: Age 50+ (2 of 2 - PCV) Pneumococcal Vaccine: Age 50+ (2 of 2 - PCV) [facility] Start: 05-03-2020 Pneumococcal Vaccine: Ped or At-Risk (2 of 2 - PCV) Pneumococcal Vaccine: Ped or At-Risk (2 of 2 - PCV) [facility] Start: 05-03-2020 Pneumococcal Vaccine: Pediatrics (0 to 5 Years) and At-Risk Patients (6 to 64 Years) (2 - PCV) Pneumococcal Vaccine: Pediatrics (0 to 5 Years) and At-Risk Patients (6 to 64 Years) (2 - PCV) [facility] Start: 05-03-2020 Pneumococcal Vaccine: Pediatrics (0 to 5 Years) and At-Risk Patients (6 to 64 Years) (2 of 2 - PCV) Pneumococcal Vaccine: Pediatrics (0 to 5 Years) and At-Risk Patients (6 to 64 Years) (2 of 2 - PCV) [facility] Start: 05-18-2019 End: 05-18-2019 Office Visit 05/18/2019 Office Visit Sports Medicine Ti Rhodes MD [address] [place] [address] [phone] [facility] Start: 02-07-2019 Influenza vaccination given [facility] Start: 06-25-2018 Hemoglobin A1c measurement A1C [facility] Start: 03-25-2018 Hemoglobin A1c measurement A1C [facility] Start: 2010 Administration of herpes zoster vaccine Zoster Vaccines (1 of 2) [facility] Start: 2010 Screening for malignant neoplasm of colon [facility] Start: 2010 Zoster Vaccines (1 of 2) Zoster Vaccines (1 of 2) [facility] Start: 2000 Screening for malignant neoplasm of breast Mammogram [facility] Start: 1990 Screening for malignant neoplasm of cervix [facility] Start: 1982 DTaP/Tdap/Td Vaccines (1 - Tdap) DTaP/Tdap/Td Vaccines (1 - Tdap) [facility] Start: 1981 Screening for malignant neoplasm of cervix [facility] Start: 08-31-1979 Urine screening for protein Diabetes: Urine Protein Screening [facility] Start: 1978 Hepatitis C screening Hepatitis C Screening [facility] Start: 08-31-1975 HIV screening HIV Screening [facility] Start: 1972 Depression screening using PHQ-9 (Patient Health Questionnaire 9) score [facility] Start: 1970 Diabetic foot examination [facility] Start: 1970 Glaucoma screening [facility] Start: 1970 Microalbumin measurement, urine, quantitative Urine Microalbumin [facility] Start: 1970 Ophthalmic examination and evaluation Ophthalmology Exam [facility] Start: 1970 Urine screening for protein [facility] Start: 1965 COVID-19 Vaccine (#1) COVID-19 Vaccine (#1) [facility] Start: 08-31-1963 History and physical examination, annual for health maintenance Wellness Visit [facility] Start: 08-31-1963 Medicare Wellness Visit Medicare Wellness Visit [facility] Start: 1961 MMR Vaccines (1 of 1 - Standard series) MMR Vaccines (1 of 1 - Standard series) [facility] Start: 03-02-1961 COVID-19 Vaccine (#1) COVID-19 Vaccine (#1) [facility] Start: 1960 Depression screening using PHQ-9 (Patient Health Questionnaire 9) score DEPRESSION SCREENING (PHQ9) [facility] Start: 1960 Hepatitis C antibody, confirmatory test HEPATITIS C SCREENING [facility] Start: 1960 HIV screening HIV Screening [facility] Start: 1960 Medicare Annual Wellness Visit Medicare Annual Wellness Visit (AWV) [facility] Start: 1960 Physical therapy management PT Plan of Care [facility] Start: 1960 Protein mass conc Mammogram [facility] Start: 1960 Screening for malignant neoplasm of cervix PAP SMEAR [facility] Start: 1960 Screening for malignant neoplasm of colon [facility] Start: 1960 Screening mammography Mammogram [facility] Start: 1960 Tetanus vaccination TETANUS EVERY 10 YR [facility] Start: 1960 Urine screening for protein Diabetes: Urine Protein Screening [facility] End: 04-16-2023 aPTT in Blood by Coagulation assay APTT Lab Routine NPH (normal pressure hydrocephalus) ([facility]) Abnormal coagulation profile 1 Occurrences starting 04/15/2022 until 04/16/2023 [facility] Comment on above: 1 Occurrences starting 04/15/2022 until 04/16/2023 aPTT in Blood by Coagulation assay APTT Lab Routine NPH (normal pressure hydrocephalus) ([facility]) Abnormal coagulation profile 04/15/2022 4:34 PM EST [facility] End: 04-15-2023 Cell count and differential, cerebrospinal fluid CSF Cell Count with Differential Lab Routine NPH (normal pressure hydrocephalus) ([facility]) 1 Occurrences starting 04/15/2022 until 04/15/2023 [facility] Work Phone: Comment on above: 1 Occurrences starting 04/15/2022 until 04/15/2023 End: 04-15-2023 CSF Bacterial/Viral Detection By PCR (Lumbar Puncture Only) CSF Bacterial/Viral Detection By PCR (Lumbar Puncture Only) Microbiology Routine NPH (normal pressure hydrocephalus) ([facility]) 1 Occurrences starting 04/15/2022 until 04/15/2023 [facility] Comment on above: 1 Occurrences starting 04/15/2022 until 04/15/2023 End: 04-15-2023 CSF VDRL CSF VDRL Lab Routine NPH (normal pressure hydrocephalus) ([facility]) 1 Occurrences starting 04/15/2022 until 04/15/2023 [facility] Comment on above: 1 Occurrences starting 04/15/2022 until 04/15/2023 End: 01-29-2024 ECG 12 Lead ECG 12 Lead ECG STAT Once for 1 Occurrences starting 01/29/2024 until 01/29/2024 [facility] Work Phone: Comment on above: Once for 1 Occurrences starting 01/29/20 24 until 01/29/2024 End: 04-15-2023 Glucose [Mass/volume] in Cerebral spinal fluid Glucose, CSF Lab Routine NPH (normal pressure hydrocephalus) (HCC) 1 Occurrences starting 04/15/2022 until 04/15/2023 [facility] Comment on above: 1 Occurrences starting 04/15/2022 until 04/15/2023 End: 09-21-2025 Hemoglobin A1c/Hemoglobin.total in Blood Hemoglobin A1c Lab Routine Type 2 diabetes mellitus without complication, without long-term current use of insulin (HCC) 1 Occurrences starting 09/21/2024 until 09/21/2025 [facility] Work Phone: Comment on above: 1 Occurrences starting 09/21/2024 until 09/21/2025 End: 04-16-2023 INR in Platelet poor plasma by Coagulation assay PT/INR Lab Routine NPH (normal pressure hydrocephalus) Abnormal coagulation profile 1 Occurrences starting 04/15/2022 until 04/16/2023 [facility] Work Phone: Comment on above: 1 Occurrences starting 04/15/2022 until 04/16/2023 INR in Platelet poor plasma by Coagulation assay PT/INR Lab Routine NPH (normal pressure hydrocephalus) (HCC) Abnormal coagulation profile 04/15/2022 4:34 PM EST [facility] End: 07-10-2023 MG Breast - bilateral Screening [facility] Area Work Phone: Comment on above: Once for 1 Occurrences starting 07/10/19 24 until 07/10/2023 End: 09-21-2025 Microalbumin measurement, urine, quantitative Microalbumin/Creatinine Ratio, UR Random Lab Routine Type 2 diabetes mellitus without complication, without long-term current use of insulin (HCC) 1 Occurrences starting 09/21/2024 until 09/21/2025 [facility] Comment on above: 1 Occurrences starting 09/21/2024 until 09/21/2025 End: 09-23-2025 MTB SCREEN MTB SCREEN Lab Routine At risk for tuberculosis 1 Occurrences starting 09/23/2024 until 09/23/2025 [facility] Work Phone: Comment on above: 1 Occurrences starting 09/23/2024 until 09/23/2025 End: 04-15-2023 Protein [Mass/volume] in Cerebral spinal fluid Protein, CSF Lab Routine NPH (normal pressure hydrocephalus) (HCC) 1 Occurrences starting 04/15/2022 until 04/15/2023 [facility] Comment on above: 1 Occurrences starting 04/15/2022 until 04/15/2023 End: 09-09-2025 RF Upper gastrointestinal tract and Small bowel Views W barium contrast PO XR Upper GI With Small Bowel Follow Through Imaging Routine Abnormal CT of the abdomen 1 Occurrences starting 09/09/2024 until 09/09/2025 [facility] Work Phone: Comment on above: 1 Occurrences starting 09/09/2024 until 09/09/2025 End: 02-02-2025 XR Wrist - left 2 Views XR Wrist Left 2 Views Imaging Routine Pain 1 Occurrences starting 02/03/2024 until 02/02/2025 [facility] Work Phone: Comment on above: 1 Occurrences starting 02/03/2024 until 02/02/2025 XR Wrist - left 2 Views XR Wrist Left 2 Views Imaging Routine Pain 02/03/2024 11:12 AM EDT [facility] End: 12-17-2024 XR Wrist - right 2 Views XR Wrist Right 2 Views Imaging Routine Pain 1 Occurrences starting 12/18/2023 until 12/17/2024 [facility] Work Phone: Comment on above: 1 Occurrences starting 12/18/2023 until 12/17/2024 End: 02-02-2025 XR Wrist - right 2 Views XR Wrist Right 2 Views Imaging Routine Pain 1 Occurrences starting 02/03/2024 until 02/02/2025 [facility] Work Phone: Comment on above: 1 Occurrences starting 02/03/2024 until 02/02/2025 Immunizations Immunization Date Immunization Notes Care Provider Fa magoty 07-14-2024 tetanus toxoid, redu amaya diphtheria toxoid, and acellular pertussis vaccine, adsorbed Zara Cristina DO Work Phone: [facility] 03-30-2024 influenza virus vaccine, unspecified formulation Zara Cristina DO Work Phone: [facility] 07-19-2023 tetanus toxoid, redu amaya diphtheria toxoid, and acellular pertussis vaccine, adsorbed Jasmyn Wade DO Work Phone: [facility] 03-26-2023 influenza, injectabl e, quadrivalent, preservative free Rafa Oberhauser DO Work Phone: [facility] Work Phone: 03-26-2023 influenza virus vaccine, unspecified formulation Huy Vasquez PA-C Work Phone: [facility] 02-14-2023 zoster vaccine recombinant Rafa Oberhauser DO Work Phone: [facility] Work Phone: 09-23-2022 zoster vaccine recombinant Rafa Oberhauser DO Work Phone: [facility] Work Phone: 08-09-2022 tetanus toxoid, redu amaya diphtheria toxoid, and acellular pertussis vaccine, adsorbed Antwan Weberkourtneycory Other Phone: [facility] 04-11-2022 Moderna COVID-19 vaccine, bivalent, blue cap/laguna label *Check age/dose* Rafa Oberhauser DO Work Phone: [facility] Work Phone: 03-28-2022 Influenza, injectabl e, Madin Lizy Canine Kidney, preservative free, quadrivalent Rafa Oberhauser DO Work Phone: [facility] Work Phone: 03-21-2021 influenza, injectabl e, quadrivalent, preservative free Rafa Oberhauser DO Work Phone: [facility] Work Phone: 03-24-2020 influenza, injectabl e, quadrivalent, preservative free Rafa Oberhauser DO Work Phone: [facility] Work Phone: 05-03-2019 pneumococcal polysaccharide vaccine, 23 valent Rafa Oberhauser DO Work Phone: [facility] Work Phone: 03-24-2019 influenza, injectabl e, quadrivalent, preservative free Rafa Oberhauser DO Work Phone: [facility] Work Phone: 11-17-2018 tetanus toxoid, redu amaya diphtheria toxoid, and acellular pertussis vaccine, adsorbed Rafa Oberhauser DO Work Phone: [facility] Work Phone: 04-15-2018 influenza, injectabl e, quadrivalent, preservative free Rafa Oberhauser DO Work Phone: [facility] Work Phone: 04-25-2016 influenza, injectabl e, quadrivalent, contains preservative Rafa Oberhauser DO Work Phone: [facility] Work Phone: Payers Date Payer Category Payer Medicare (Managed Care) [employer] [facility] [id number]. [id number] 2023 Unknown [id number] 2017 Medicaid MEDICAID [facility] xxxxxxxxxxxx 2017-Present xxxxxxxxxxxx [id number]. [id number] 2017 Medicaid [id number]. 1.13.385.2. [id number] 2017 Medicaid [id number] 2000 Medicare MEDICARE MEDICAR E PART A & B xxxxxxxxxxx 2000-Present [place] xxxxxxxxxxx [id number]. [id number] 2000 Medicare 1.2.840.901105. 1.13.385.2. 7.3.248709.315 2000 Medicare [id number] 1960 Unknown [id number] 2.16.840.1.148350.3.579.2. 902 1960 Unknown [id number] 2.16.840.1.746621.3.579.2. 1068 1960 Unknown [id number] 2.16.840.1.459981.3.579.2. 1068 1960 Unknown [id number] 2.16.840.1.256209.3.579.2. 1068 1960 Unknown [id number] 2.16.840.1.922360.3.579.2. 1068 1960 Unknown [id number] 2.16.840.1.935372.3.579.2. 9 1960 Unknown [id number] 2.16.840.1.315340.3.579.2. 1068 1960 Unknown [id number] 2.16.840.1.511125.3.579.2. 106 1960 Unknown [id number] 2.16.840.1.264284.3.579.2. 1068 1960 Unknown [id number] 2.16.840.1.076636.3.579.2. 1068 1960 Unknown [id number] 2.16.840.1.107225.3.579.2. 1068 1960 Unknown [id number] 2.16.840.1.706088.3.579.2. 1069 1960 Unknown [id number] 2.16.840.1.328653.3.579.2. 9 1960 Unknown [id number] 2.16.840.1.760462.3.579.2. 9 1960 Unknown [id number] 2.16.840.1.556306.3.579.2. 1068 1960 Unknown [id number] 2.16.840.1.314205.3.579.2. 902 1960 Unknown [id number] 2.16.840.1.944797.3.579.2. 4 1960 Unknown [id number] 2.16.840.1.197830.3.579.2. 1243 1960 Unknown [id number] 2.16.840.1.575346.3.579.2. 1243 1960 Unknown [id number] 2.16.840.1.731920.3.579.2. 1243 1960 Unknown [id number] 2.16.840.1.113905.3.579.2. 4 1960 Unknown [id number] 2.16.840.1.548385.3.579.2. 1244 1960 Unknown [id number] 2.16.840.1.120663.3.579.2. 1244 1960 Unknown [id number] 2.16.840.1.921689.3.579.2. 1244 1960 Unknown [id number] 2.16.840.1.617137.3.579.2. 1242 1960 Unknown [id number] 2.16.840.1.675179.3.579.2. 1242 1960 Unknown [id number] 2.16.840.1.053728.3.579.2. 3 1960 Unknown [id number] 2.16.840.1.621045.3.579.2. 1242 1960 Unknown [id number] 2.16.840.1.087899.3.579.2. 1242 1960 Unknown [id number] 2.16.840.1.509728.3.579.2. 1242 1960 Unknown [id number] 2.16.840.1.937089.3.579.2. 1242 1960 Unknown [id number] 2.16.840.1.803643.3.579.2. 1242 1960 Unknown [id number] 2.16.840.1.458864.3.579.2. 1242 1960 Unknown [id number] 2.16.840.1.789741.3.579.2. 1242 1960 Unknown [id number] 2.16.840.1.983912.3.579.2. 1242 1960 Unknown [id number] 2.16.840.1.811665.3.579.2. 1242 1960 Unknown [id number] 2.16.840.1.573681.3.579.2. 1242 1960 Unknown [id number] 2.16.840.1.941911.3.579.2. 1242 1960 Unknown [id number] 2.16.840.1.505887.3.579.2. 1242 1960 Unknown [id number] 2.16.840.1.528594.3.579.2. 1242 1960 Unknown [id number] 2.16.840.1.900024.3.579.2. 1242 1960 Unknown [id number] 2.16.840.1.380417.3.579.2. 1242 1960 Unknown [id number] 2.16.840.1.839060.3.579.2. 1242 1960 Unknown [id number] 2.16.840.1.227548.3.579.2. 1242 1960 Unknown [id number] 2.16.840.1.904098.3.579.2. 1242 1960 Unknown [id number] 2.16.840.1.743180.3.579.2. 1242 1960 Unknown [id number] 2.16.840.1.757735.3.579.2. 1242 1960 Unknown [id number] 2.16.840.1.752449.3.579.2. 1242 1960 Unknown [id number] 2.16.840.1.400061.3.579.2. 1242 1960 Unknown [id number] 2.16.840.1.125391.3.579.2. 1242 1960 Unknown [id number] 2.16.840.1.120687.3.579.2. 1242 1960 Unknown [id number] 2.16.840.1.663753.3.579.2. 1242 1960 Unknown [id number] 2.16840.1.330605.3.579.2. 1242 1960 Unknown [id number] 2.16.840.1.515978.3.579.2. 1242 1960 Unknown [id number] 2.16.840.1.980260.3.579.2. 1242 1960 Unknown [id number] 2.16.840.1.501463.3.579.2. 1242 1960 Unknown [id number] 2.16.840.1.428794.3.579.2. 1242 1960 Unknown [id number] 2.16.840.1.417732.3.579.2. 1243 1960 Unknown [id number] 2.16.840.1.418942.3.579.2. 1242 1960 Unknown [id number] 2.16.840.1.877891.3.579.2. 1243 1960 Unknown [id number] 2.16.840.1.220599.3.579.2. 124 1960 Unknown [id number] 2.16.840.1.768172.3.579.2. 1960 Unknown [id number] 2.16.840.1.499669.3.579.2. 1960 Unknown [id number] 2.16.840.1.683384.3.579.2. 1960 Unknown [id number] 2.16.840.1.277952.3.579.2. 1960 Unknown [id number] 2.16.840.1.203761.3.579.2. 1960 Unknown [id number] 2.16.840.1.576794.3.579.2. 1960 Unknown [id number] 2.16.840.1.621548.3.579.2. 1960 Unknown [id number] 2.16.840.1.509728.3.579.2. 1960 Unknown [id number] 2.16.840.1.531063.3.579.2. 1960 Unknown [id number] 2.16.840.1.262095.3.579.2. 1960 Unknown [id number] 2.16.840.1.341706.3.579.2. 90 1960 Unknown [id number] 2.16.840.1.799887.3.579.2. 903 1960 Unknown [id number] 2.16.840.1.240196.3.579.2. 1960 Unknown [id number] 2.16.840.1.740169.3.579.2. 1960 Unknown [id number] 2.16.840.1.904835.3.579.2. 1960 Unknown [id number] 2.16.840.1.936980.3.579.2. 1960 Unknown [id number] 2.16840.1.613064.3.579.2. 1960 Unknown [id number] 2.840.1.303471.3.579.2. 1960 Unknown [id number] 2.840.1.274283.3.579.2 1960 Unknown [id number] 2.16840.1.566792.3.579.2. 1960 Unknown [id number] 2.16840.1.206688.3.579.2 1960 Unknown [id number] 2.16840.1.757923.3.579.2. 1960 Unknown [id number] 2.16840.1.791029.3.579.2. 1960 Unknown [id number] 2.16.840.1.519867.3.579.2. 1960 Unknown [id number] 2.16.840.1.127618.3.579.2 1960 Unknown [id number] 2.16840.1.248802.3.579.2 1960 Unknown [id number] 2.16840.1.408246.3.579.2. 903 1960 Unknown [id number] 2.16.840.1.113690.3.579.2. 903 1960 Unknown [id number] 2.16.840.1.211794.3.579.2. 903 1960 Unknown [id number] 2.16.840.1.411664.3.579.2. 903 1960 Unknown [id number] 2.16.840.1.456347.3.579.2. 903 1960 Unknown [id number] 2.16.840.1.142492.3.579.2. 90 1960 Unknown [id number] 2.16.840.1.519220.3.579.2. 903 1960 Unknown [id number] 2.16.840.1.561671.3.579.2. 903 1960 Unknown [id number] 2.16.840.1.983131.3.579.2. 903 Medicare [id number] Unknown Social History Date Type Detail Facility Start: 04-10-2017 Tobacco smoking status [facility] Unknown if ever smoked [facility] Work Phone: Start: 1960 Sex Assigned At Not on file [facility] Work Phone: Start: 04-27-2019 End: 03-28-2022 Tobacco smoking status NHIS Never smoker [facility] Start: 04-27-2019 End: 09-21-2024 Alcohol intake Ex-drinker (finding) [facility] Start: 04-27-2019 End: 07-19-2024 Cigarette pack-years [facility] Work Phone: Start: 04-27-2019 End: 03-28-2022 Tobacco use and exposure Smokeless tobacco non-user [facility] Start: 03-18-2022 End: 07-09-2024 Exposure to SARS-CoV-2 (event) Not sure [facility] Start: 08-01-2022 End: 07-19-2024 Tobacco use panel [facility] Work Phone: Start: 11-03-2018 Gender identity Identifies as female gender (finding) [facility] Start: 04-21-2023 End: 07-09-2024 Alcohol intake Lifetime non-drinker (finding) [facility] Work Phone: Start: 06-23-2024 Sexual orientation Heterosexual (finding) [facility] Has the electric, ga s, oil, or water company threatened to shut off services in your home in past 12Mo Patient unable to answer [facility] Has the electric, ga s, oil, or water company threatened to shut off services in your home in past 12Mo No [facility] (I/We) worried wheth er (my/our) food would run out before (I/we) got money to buy more. Never true [facility] Clinical Notes 08-01-2022 to 12-06-2024 Telephone Encounter - Lupe Ochoa LPN - 12/06/2024 3:02 PM EDTTelephone Encounter - Lupe Ochoa LPN - 12/06/2024 3:02 PM Marcos Singh MD - 11/11/2024 11:03 AM EDTAttachments Note Date & Type Note Facility 12-06-2024 Telephone encounter Note Pt home calling for this med, previous pcp rx. Can you please send [facility] 12-06-2024 Miscellaneous Notes Pt home calling for this med, previous pcp rx. Can you please send documented in this encounter [facility] 11-11-2024 Note Shaji Esquivel 64 y.o. 1960 female Changes since last visit: 64-year-old female with history of parkinsonism, schizophrenia, has chronic constipation but no blood in the stool or black-colored stool. Denies any nausea vomiting or heartburn. No history of any recent weight loss. Hypertension, hyperlipidemia, history of some arachnoid hemorrhage, diabetes mellitus was referred to me for evaluation of abnormal CAT scan. Apparently patient had fall and had CT head chest and abdomen. CT abdomen revealed mild edematous appearance of duodenum and jujenal loop in upper abdomen probably nonspecific to further evaluate the recommended upper GI series and small bowel follow-through and possible endoscopy. Patient has parkinsonism and poor historian. Patient was accompanied by caregiver. She underwent upper GI series which revealed reflux and normal small bowel. She is asymptomatic. Past Medical History: Past Medical History: Diagnosis Date Diabetes (HCC) Disease of thyroid gland High cholesterol Hypertension SAH (subarachnoid hemorrhage) (HCC) 12/04/2023 History reviewed. No pertinent family history. Surgical History & Procedures: Past Surgical History: Procedure Laterality Date XR LUMBAR PUNCTURE (DIAGNOSTIC) WITH GAIT ANALYSIS 04/17/2022 XR LUMBAR PUNCTURE (DIAGNOSTIC) WITH GAIT ANALYSIS 04/17/2022 [facility] Social History: Social History[1] Current Medications: Current Medications[2] Review of Systems Constitutional: Negative for appetite change and unexpected weight change. HENT: Negative for voice change. Respiratory: Negative for cough, choking and shortness of breath. Cardiovascular: Negative for chest pain and leg swelling. Gastrointestinal: Negative for abdominal pain, anal bleeding, blood in stool, constipation, diarrhea, nausea, rectal pain and vomiting. Genitourinary: Negative for hematuria. Musculoskeletal: Negative for arthralgias and joint swelling. Skin: Negative for pallor. Neurological: Negative for dizziness, tremors and weakness. Hematological: Negative for adenopathy. Does not bruise/bleed easily. Psychiatric/Behavioral: Negative for confusion. Physical Exam Constitutional: Appearance: Normal appearance. Eyes: Pupils: Pupils are equal, round, and reactive to light. Cardiovascular: Pulses: Normal pulses. Heart sounds: Normal heart sounds. Pulmonary: Breath sounds: Normal breath sounds. Abdominal: General: Bowel sounds are normal. Palpations: Abdomen is soft. There is no mass. Tenderness: There is no abdominal tenderness. Skin: Coloration: Skin is not jaundiced. Neurological: General: No focal deficit present. Mental Status: She is alert and oriented to person, place, and time. Psychiatric: Behavior: Behavior normal. No visits with results within 30 Day(s) from this visit. Latest known visit with results is: Orders Only on 10/08/2024 Component Date Value Ref Range Status MTB Screen Interpretation 10/08/2024 Negative Negative Final No IFN-gamma response to M tuberculosis antigens was detected. Latent infection with M tuberculosis is unlikely. A single negative result does not exclude infection with M tuberculosis. In patients at high risk for M tuberculosis infection,a second test should be considered NIL 10/08/2024 0.09885 IU/mL Final Mitogen Minus Nil 10/08/2024 2.61059 IU/mL Final TB1 Minus Nil 10/08/2024 -0.24946 0.00 - 0.34 IU/mL Final TB2 Minus Nil 10/08/2024 0.66607 0.00 - 0.34 IU/mL Final Interferon gamma release is measured for specimens from each of the four collection tubes. A qualitative result (Negative, Positive, or Indeterminate) is based on interpretation of the four values, NIL, MITOGEN minus NIL (MITOGEN-NIL), TB1 minus NIL (TB1-NIL), and TB2 minus NIL (TB2-NIL). The NIL value represents nonspecific reactivity produced by the patient specimen. The MITOGEN-NIL value serves as the positive control for the patient specimen, demonstrating successful lymphocyte reactivity. The TB1-NIL tube specifically detects CD4+ lymphocyte reactivity, specifically stimulated by the TB1 antigens. The TB2-NIL tube detects both CD4+ and CD8+ lymphocyte reactivity, stimulated by the TB2 antigens. An overall Negative result does not completely rule out TB Infection. Assessment & Plan: 64-year-old female had upper GI series for abnormal CAT scan of the abdomen. Upper GI series revealed gastroesophageal reflux and normal small bowel. I recommended continue Prilosec and follow-up by primary care physician. Discussed the results with caregiver. Marcos Barrera MD [1] Social History Socioeconomic History Marital status: Single Tobacco Use Smoking status: Never Smokeless tobacco: Never Vaping Use Vaping status: Never Used Substance and Sexual Activity Alcohol use: Not Currently Drug use: Not Currently Social Drivers of Health Financial Resource Strain: Patient Unable To Ans (more content not included)... [facility] 11-11-2024 History of Present illness Narrative Shaji Esquivel 64 y.o. 1960 female Changes since last visit: 64-year-old female with history of parkinsonism, schizophrenia, has chronic constipation but no blood in the stool or black-colored stool. Denies any nausea vomiting or heartburn. No history of any recent weight loss. Hypertension, hyperlipidemia, history of some arachnoid hemorrhage, diabetes mellitus was referred to me for evaluation of abnormal CAT scan. Apparently patient had fall and had CT head chest and abdomen. CT abdomen revealed mild edematous appearance of duodenum and jujenal loop in upper abdomen probably nonspecific to further evaluate the recommended upper GI series and small bowel follow-through and possible endoscopy. Patient has parkinsonism and poor historian. Patient was accompanied by caregiver. She underwent upper GI series which revealed reflux and normal small bowel. She is asymptomatic. Past Medical History: Past Medical History: Diagnosis Date Diabetes (HCC) Disease of thyroid gland High cholesterol Hypertension SAH (subarachnoid hemorrhage) (HCC) 12/04/2023 History reviewed. No pertinent family history. Surgical History & Procedures: Past Surgical History: Procedure Laterality Date XR LUMBAR PUNCTURE (DIAGNOSTIC) WITH GAIT ANALYSIS 04/17/2022 XR LUMBAR PUNCTURE (DIAGNOSTIC) WITH GAIT ANALYSIS 04/17/2022 [facility] Social History: Social History[1] Current Medications: Current Medications[2] Review of Systems Constitutional: Negative for appetite change and unexpected weight change. HENT: Negative for voice change. Respiratory: Negative for cough, choking and shortness of breath. Cardiovascular: Negative for chest pain and leg swelling. Gastrointestinal: Negative for abdominal pain, anal bleeding, blood in stool, constipation, diarrhea, nausea, rectal pain and vomiting. Genitourinary: Negative for hematuria. Musculoskeletal: Negative for arthralgias and joint swelling. Skin: Negative for pallor. Neurological: Negative for dizziness, tremors and weakness. Hematological: Negative for adenopathy. Does not bruise/bleed easily. Psychiatric/Behavioral: Negative for confusion. Physical Exam Constitutional: Appearance: Normal appearance. Eyes: Pupils: Pupils are equal, round, and reactive to light. Cardiovascular: Pulses: Normal pulses. Heart sounds: Normal heart sounds. Pulmonary: Breath sounds: Normal breath sounds. Abdominal: General: Bowel sounds are normal. Palpations: Abdomen is soft. There is no mass. Tenderness: There is no abdominal tenderness. Skin: Coloration: Skin is not jaundiced. Neurological: General: No focal deficit present. Mental Status: She is alert and oriented to person, place, and time. Psychiatric: Behavior: Behavior normal. No visits with results within 30 Day(s) from this visit. Latest known visit with results is: Orders Only on 10/08/2024 Component Date Value Ref Range Status MTB Screen Interpretation 10/08/2024 Negative Negative Final No IFN-gamma response to M tuberculosis antigens was detected. Latent infection with M tuberculosis is unlikely. A single negative result does not exclude infection with M tuberculosis. In patients at high risk for M tuberculosis infection,a second test should be considered NIL 10/08/2024 0.02559 IU/mL Final Mitogen Minus Nil 10/08/2024 2.49860 IU/mL Final TB1 Minus Nil 10/08/2024 -0.14990 0.00 - 0.34 IU/mL Final TB2 Minus Nil 10/08/2024 0.22457 0.00 - 0.34 IU/mL Final Interferon gamma release is measured for specimens from each of the four collection tubes. A qualitative result (Negative, Positive, or Indeterminate) is based on interpretation of the four values, NIL, MITOGEN minus NIL (MITOGEN-NIL), TB1 minus NIL (TB1-NIL), and TB2 minus NIL (TB2-NIL). The NIL value represents nonspecific reactivity produced by the patient specimen. The MITOGEN-NIL value serves as the positive control for the patient specimen, demonstrating successful lymphocyte reactivity. The TB1-NIL tube specifically detects CD4+ lymphocyte reactivity, specifically stimulated by the TB1 antigens. The TB2-NIL tube detects both CD4+ and CD8+ lymphocyte reactivity, stimulated by the TB2 antigens. An overall Negative result does not completely rule out TB Infection. Assessment & Plan: 64-year-old female had upper GI series for abnormal CAT scan of the abdomen. Upper GI series revealed gastroesophageal reflux and normal small bowel. I recommended continue Prilosec and follow-up by primary care physician. Discussed the results with caregiver. Marcos Barrera MD [1] Social History Socioeconomic History Marital status: Single Tobacco Use Smoking status: Never Smokeless tobacco: Never Vaping Use Vaping status: Never Used Substance and Sexual Activity Alcohol use: Not Currently Drug use: Not Currently Social Drivers of Health Financial Resource Strain: Patient Unable To Answer (07/13/2024) Overall Financial Resource Strain (CARDIA) Difficulty of Paying Living Expenses: Patient unable to answer Food Insecurity: No Food Insecurity (07/19/2024) Hunger Vital Sign Worried About Running Out of Food in the Last Year: Never true Ran Out of Food in the Last Year: Never true Transportation Needs: No Transportation Needs (07/19/2024) PRAPARE - Transportation Lack of Transportation (Medical): No Lack of Transportation (Non-Medical): No Physical Activity: Patient Unable To Answer (07/13/2024) Exercise Vital Sign Days of Exercise per Week: Patient unable to answer Minutes of Exercise per Session: Patient unable to answer Stress: Patient Unable To Answer (07/13/2024) [place] [employer] - Occupational Stress Questionnaire Feeling of Stress : Patient unable to answer Social Connections: Patient Unable To Answer (07/13/2024) Social Connection and Isolation Panel [NHANES] Frequency of Communication with Friends and Family: Patient unable to answer Frequency of Social Gatherings with Friends and Family: Patient unable to answer Attends [employer] Services: Patient unable to answer Active Member of Clubs or Organizations: Patient unable to answer Attends Club or Organization Meetings: Patient unable to answer Marital Status: Patient unable to answer Housing Stability: Low Risk (07/19/2024) Housing Stability Vital Sign Unable to Pay for Housing in the Last Year: No Number of Times Moved in the Last Year: 0 Homeless in the Last Year: No [2] Current Outpatient Medications Medication Sig Dispense Refill acetaminophen (TYLENOL) 500 MG tablet Take 2 (two) tablets (1,000 mg total) by mouth every 8 (eight) hours as needed for pain . 180 tablet 11 acetaminophen (TYLENOL) 500 MG tablet Take 2 (two) tablets (1,000 mg total) by mouth every 8 (eight) hours as needed for fever . 180 tablet 11 aluminum-magnesium hydroxide-simethicone (MAALOX PLUS) 200-200-20 mg/5 mL Susp Take 10 mL by mouth 4 (four) times a day before meals and nightly GIVE 10 ML BY MOUTH BETWEEN MEALS AND AT BEDTIME NEEDED FOR ACID REFLUX . amLODIPine (NORVASC) 2.5 MG tablet Take 1 (one) tablet (2.5 mg total) by mouth daily . 90 tablet 3 atorvastatin (LIPITOR) 10 MG tablet Take 1 (one) tablet (10 mg total) by mouth every night at bedtime . benztropine (COGENTIN) 1 MG tablet Take 1 (one) tablet (1 mg total) by mouth 2 (two) times a day . carbidopa-levodopa (SINEMET) 25-100 mg per tablet Take 2 (two) tablets by mouth 3 (three) times a day . 540 tablet 3 diclofenac sodium 1% (VOLTAREN) 1 % Gel Apply 4 (four) g topically 4 (four) times a day Apply to Both Knees and right hip . docusate sodium (COLACE) 100 MG capsule Take 1 (one) capsule (100 mg total) by mouth 2 (two) times a day . 180 capsule 3 empagliflozin 25 mg Tab Take 1 (one) tablet (25 mg total) by mouth daily . estradioL (ESTRACE) 0.01 % (0.1 mg/gram) vaginal cream Insert 2 (two) g into the vagina Friday, Friday, Friday EVERY FRIDAY/FRIDAY/FRIDAY . fluoride, sodium, (DENTA 5000 PLUS DENT) Use to brush teeth once a day as directed . glipiZIDE (GLUCOTROL) 10 MG tablet Take 1 (one) tablet (10 mg total) by mouth 2 (two) times a day before meals . levothyroxine (SYNTHROID, LEVOTHROID) 75 MCG tablet Take 1 (one) tablet (75 mcg total) by mouth every morning At 6 AM . melatonin 3 mg Tab Take 1 (one) tablet (3 mg total) by mouth nightly . metFORMIN (GLUCOPHAGE-XR) 500 MG 24 hr tablet Take 2 (two) tablets (1,000 mg total) by mouth 2 (two) times a day . mirtazapine (REMERON NIKHIL-TAB) 30 MG disintegrating tablet Dissolve 1 (one) tablet (30 mg total) on top of tongue nightly PLACE 1 TABLET IN THE MOUTH AND ALLOW TO DISSOLVE AT BEDTIME . ftgcvmzq-mcn-ytvccyi fumarate 15 mg iron Tab Take 1 tablet by mouth every morning . 90 tablet 3 NONFORMULARY CHECK FASTING BLOOD SUGAR ONE TIME EVERY MONTH (FIRST FRIDAY OF THE MONTH) . NONFORMULARY PLACE FOAM BLOCKS IN BOTH HANDS, WRAPPED WITH COBAND EVERY NIGHT WHILE SLEEPING . NONFORMULARY WEAR L BRACE/SPLINT TO LEFT HAND/ARM FOR 1 HOUR TWICE DAILY THEN REMOVE ROM . NONFORMULARY APPLY DALE'S VAPOR RUB TO ALL TOENAILS ONCE NIGHTLY . NONFORMULARY COMPLETE HAND EXERCISES WITH BLUE SPONGE-SPONGE SQUEEZE, FINGER LUMBRICALS, POINT PINCH WITH SPONGE, FLATTEN SPONGE TWICE A DAY. (SEE BELOW FOR REST OF MESSAGE) Reasons: THEN EASILY PROVIDE RANGE OF MOTION TO WRIST/FINGERS. COMPLETE THIS TWICE DAILY BEFORE APPLYING R HAND SPLINT ROM. NONFORMULARY CHECK BLOOD PRESSURE ONCE WEEKLY ON FRIDAY. IF SBP (TOP NUMBER) ABOVE 160 OR LOWER THAN 110, DBP (BOTTOM NUMBER) ABOVE 90 OR LOWER ORTIZ 60, REPEAT IN 15 MINS. IF STILL ABNORMAL CONTACT NURSE. . nut.tx.glucose intolerance,soy (GLUCERNA ORAL) Take 1 Can by mouth 4 (four) times a day . omeprazole (PRILOSEC) 40 MG capsule Take 1 (one) capsule (40 mg total) by mouth daily . 90 capsule 3 phenylephrine-shark liver oil-mineral oil-petrolatum (PREPARATION H) Oint Insert 1 Application into the rectum 4 (four) times a day as needed APPLY TOPICALLY TO AFFECTED ARE FOUR TIMES DAILY NEEDED . pimavanserin (Nuplazid) 34 mg Take 1 (one) capsule (34 mg total) by mouth daily . polyethylene glycol (MIRALAX) 17 gram powder Take 17 (seventeen) g by mouth daily . 1530 g 3 potassium chloride SA (K-DUR,KLOR-CON M10) 10 MEQ tablet Take 1 (one) tablet (10 mEq total) by mouth daily . 90 tablet 3 REPaglinide (PRANDIN) 0.5 MG tablet Take 1 (one) tablet (0.5 mg total) by mouth 2 (two) times a day before meals . 180 tablet 1 senna-docusate (SENNA-S) 8.6-50 mg Take 1 (one) tablet by mouth daily . UNABLE TO FIND Benacalorie mixed in food or drink 3 times daily as needed for meal intake less than 50% . OLANZapine (ZYPREXA) 5 MG tablet Take 1 (one) tablet (5 mg total) by mouth nightly . (Patient not taking: Reported on 11/11/2024 .) pimavanserin 10 mg Tab Take 1 (one) tablet (10 mg total) by mouth daily . (Patient not taking: Reported on 11/11/2024 .) No current facility-administered medications for this visit. documented in this encounter [facility] 10-25-2024 Note Ameena Ruiz PM Patient Name: Shaji Esquivel. . Date of : 1960, 64 y.o.. Gender: female. Subjective: Patient is a pleasant 64-year-old female who presents to clinic for painful right great toe nail. Patient's aide/nurse by her side stating that it is difficult for her to cut her right great toenail. She also admits to numbness and tingling to her toes. No other pedal complaints at this time. Denies fevers, chills, nausea, vomiting, chest pain, shortness of breath, or any other constitutional symptoms. Past Medical History: Diagnosis Date Diabetes (HCC) Disease of thyroid gland High cholesterol Hypertension SAH (subarachnoid hemorrhage) (HCC) 12/04/2023 Past Surgical History: Procedure Laterality Date XR LUMBAR PUNCTURE (DIAGNOSTIC) WITH GAIT ANALYSIS 04/17/2022 XR LUMBAR PUNCTURE (DIAGNOSTIC) WITH GAIT ANALYSIS 04/17/2022 [facility] Social History Socioeconomic History Marital status: Single Tobacco Use Smoking status: Never Smokeless tobacco: Never Vaping Use Vaping status: Never Used Substance and Sexual Activity Alcohol use: Not Currently Drug use: Not Currently Social Drivers of Health Financial Resource Strain: Patient Unable To Answer (07/13/2024) Overall Financial Resource Strain (CARDIA) Difficulty of Paying Living Expenses: Patient unable to answer Food Insecurity: No Food Insecurity (07/19/2024) Hunger Vital Sign Worried About Running Out of Food in the Last Year: Never true Ran Out of Food in the Last Year: Never true Transportation Needs: No Transportation Needs (07/19/2024) PRAPARE - Transportation Lack of Transportation (Medical): No Lack of Transportation (Non-Medical): No Physical Activity: Patient Unable To Answer (07/13/2024) Exercise Vital Sign Days of Exercise per Week: Patient unable to answer Minutes of Exercise per Session: Patient unable to answer Stress: Patient Unable To Answer (07/13/2024) [place] [facility] [employer] [facility] - Occupational Stress Questionnaire Feeling of Stress : Patient unable to answer Social Connections: Patient Unable To Answer (07/13/2024) Social Connection and Isolation Panel [NHANES] Frequency of Communication with Friends and Family: Patient unable to answer Frequency of Social Gatherings with Friends and Family: Patient unable to answer Attends [employer] Services: Patient unable to answer Active Member of Clubs or Organizations: Patient unable to answer Attends Club or Organization Meetings: Patient unable to answer Marital Status: Patient unable to answer Housing Stability: Low Risk (07/19/2024) Housing Stability Vital Sign Unable to Pay for Housing in the Last Year: No Number of Times Moved in the Last Year: 0 Homeless in the Last Year: No Physical Examination: There were no vitals taken for this visit. General Appearance: Alert, cooperative, no distress, appears stated age. Podiatric Exam Vascular: DP and PT pulses are palpable 2/4. Capillary refill time is less than 3 secs to distal digits. Skin temperature is warm to warm from proximal tibial tuberosity to distal digit. Neurological: Gross sensation is intact. Protective sensation is diminished using the [place] Piotr monofilament. Dermatologic: The right great toenail is elongated, thickened, dystrophic and mycotic subungual debris. Remaining toenails are dystrophic. Interdigital spaces are clean dry and intact. Preulcerative lesions noted subfirst and second metatarsal heads bilaterally. Musculoskeletal: Pain on palpation to the right great toenail. Patient is able to wiggle digits. Ankle joint range of motion is intact. Compartments soft and compressible. No calf pain Diagnoses: 1. Onychomycosis 2. Onychodystrophy 3. Diabetic peripheral neuropathy (HCC) 4. Pain due to onychomycosis of toenail of right foot Assessment/Plan: Patient was seen and evaluated. Discussed all clinical findings. Patient has onychomycosis of nails x 1 and onychodystrophy x 9 which require mechanical debridement. Consent was obtained prior to debridement of all toenails on the right and left foot using podiatric nail nippers down to appropriate thickness and length. Patient expressed pain relief following the procedure. Patient qualifies for nail care due to at risk foot criteria based on Q9 Modifier secondary to diabetic peripheral neuropathy. All questions were answered to patient satisfaction. Patient understands to call with any questions or concerns. Follow-up in 3 months for at risk foot care. This note was partially created using voice recognition software and is inherently subject to errors including those of syntax and sound-alike substitutions which may escape proofreading. In such instances, original meaning may be extrapolated by contextual derivation. Elizabeth Kimble DPM, MS Podiatric Physician & Surgeon AUTHENTICATED BY ELIZABETH KIMBLE, ON 10/25/2024 11:10:27 [facility] 10-25-2024 History of Present illness Narrative Images from the original note were not included. Elizabeth Kimble DPM Patient Name: Shaji Esquivel. . Date of : 1960, 64 y.o.. Gender: female. Subjective: Patient is a pleasant 64-year-old female who presents to clinic for painful right great toe nail. Patient's aide/nurse by her side stating that it is difficult for her to cut her right great toenail. She also admits to numbness and tingling to her toes. No other pedal complaints at this time. Denies fevers, chills, nausea, vomiting, chest pain, shortness of breath, or any other constitutional symptoms. Past Medical History: Diagnosis Date Diabetes (HCC) Disease of thyroid gland High cholesterol Hypertension SAH (subarachnoid hemorrhage) (HCC) 12/04/2023 Past Surgical History: Procedure Laterality Date XR LUMBAR PUNCTURE (DIAGNOSTIC) WITH GAIT ANALYSIS 04/17/2022 XR LUMBAR PUNCTURE (DIAGNOSTIC) WITH GAIT ANALYSIS 04/17/2022 [facility] Social History Socioeconomic History Marital status: Single Tobacco Use Smoking status: Never Smokeless tobacco: Never Vaping Use Vaping status: Never Used Substance and Sexual Activity Alcohol use: Not Currently Drug use: Not Currently Social Drivers of Health Financial Resource Strain: Patient Unable To Answer (07/13/2024) Overall Financial Resource Strain (CARDIA) Difficulty of Paying Living Expenses: Patient unable to answer Food Insecurity: No Food Insecurity (07/19/2024) Hunger Vital Sign Worried About Running Out of Food in the Last Year: Never true Ran Out of Food in the Last Year: Never true Transportation Needs: No Transportation Needs (07/19/2024) PRAPARE - Transportation Lack of Transportation (Medical): No Lack of Transportation (Non-Medical): No Physical Activity: Patient Unable To Answer (07/13/2024) Exercise Vital Sign Days of Exercise per Week: Patient unable to answer Minutes of Exercise per Session: Patient unable to answer Stress: Patient Unable To Answer (07/13/2024) [place] [facility] [employer] [facility] - Occupational Stress Questionnaire Feeling of Stress : Patient unable to answer Social Connections: Patient Unable To Answer (07/13/2024) Social Connection and Isolation Panel [NHANES] Frequency of Communication with Friends and Family: Patient unable to answer Frequency of Social Gatherings with Friends and Family: Patient unable to answer Attends [employer] Services: Patient unable to answer Active Member of Clubs or Organizations: Patient unable to answer Attends Club or Organization Meetings: Patient unable to answer Marital Status: Patient unable to answer Housing Stability: Low Risk (07/19/2024) Housing Stability Vital Sign Unable to Pay for Housing in the Last Year: No Number of Times Moved in the Last Year: 0 Homeless in the Last Year: No Physical Examination: There were no vitals taken for this visit. General Appearance: Alert, cooperative, no distress, appears stated age. Podiatric Exam Vascular: DP and PT pulses are palpable 2/4. Capillary refill time is less than 3 secs to distal digits. Skin temperature is warm to warm from proximal tibial tuberosity to distal digit. Neurological: Gross sensation is intact. Protective sensation is diminished using the [place] Piotr monofilament. Dermatologic: The right great toenail is elongated, thickened, dystrophic and mycotic subungual debris. Remaining toenails are dystrophic. Interdigital spaces are clean dry and intact. Preulcerative lesions noted subfirst and second metatarsal heads bilaterally. Musculoskeletal: Pain on palpation to the right great toenail. Patient is able to wiggle digits. Ankle joint range of motion is intact. Compartments soft and compressible. No calf pain Diagnoses: 1. Onychomycosis 2. Onychodystrophy 3. Diabetic peripheral neuropathy (HCC) 4. Pain due to onychomycosis of toenail of right foot Assessment/Plan: Patient was seen and evaluated. Discussed all clinical findings. Patient has onychomycosis of nails x 1 and onychodystrophy x 9 which require mechanical debridement. Consent was obtained prior to debridement of all toenails on the right and left foot using podiatric nail nippers down to appropriate thickness and length. Patient expressed pain relief following the procedure. Patient qualifies for nail care due to at risk foot criteria based on Q9 Modifier secondary to diabetic peripheral neuropathy. All questions were answered to patient satisfaction. Patient understands to call with any questions or concerns. Follow-up in 3 months for at risk foot care. This note was partially created using voice recognition software and is inherently subject to errors including those of syntax and sound-alike substitutions which may escape proofreading. In such instances, original meaning may be extrapolated by contextual derivation. Elizabeth Kimble DPM, MS Podiatric Physician & Surgeon documented in this encounter [facility] 10-12-2024 History of Present illness Narrative MEDICATION RECONCILIATION COMPLETED USING REM MED SHEETS. MED SHEETS TITLED ACTIVE ORDERS OF 10/01/2024. MEDICATIONS NOT LISTED ON REM LIST MARKED FOR REVIEW. documented in this encounter [facility] 10-11-2024 History of Present illness Narrative Spoke to Camelia, review results. Faxed results to [phone]. documented in this encounter [facility] 09-21-2024 Evaluation + Plan note Associated Problem(s): Abnormal CT of the abdomen Incidental finding edematous appearance of duodenum infusional loop in upper abdomen probably nonspecific. She has met with Dr. Jones who ordered GI series with small bowel follow-through, deferred EGD for now. [facility] 09-21-2024 Miscellaneous Notes Associated Problem(s): Abnormal CT of the abdomen Incidental finding edematous appearance of duodenum infusional loop in upper abdomen probably nonspecific. She has met with Dr. Jones who ordered GI series with small bowel follow-through, deferred EGD for now. Associated Problem(s): Recurrent falls Multiple falls recently may have been due to E. coli UTI, treated with Keflex, completed today. Concern for interaction between Sinemet and olanzapine. She has followed up with psychiatry and they have stopped olanzapine. Shuffling gait with Parkinson's disease increases fall risk. Lives in senior care. Staff tries to have aide assist with walking all the time; patient sometimes up without alerting staff. Difficult to rn transitional and steer walker due to hand/wrist contractions. - She has just completed physical therapy and is walking better - Wear closed footwear with non-slip bottom - No area rugs - Keep cords clear of walkways - Walk with staff assistance only Associated Problem(s): Type 2 diabetes mellitus without complication (HCC) A1c goal <7.5%. Last A1c was 7.6% in 06/2024. Current treatment with metformin 500 mg BID, empagliflozin 25 mg daily, glipizide 5 mg bid, januvia 100 mg daily. - Check daily fasting BG, keep a log - Try to decrease portions of carbohydrates in favor of more vegetables - Annual diabetic eye exam with [facility] - Follows Dr. Kimble for podiatry, working on getting diabetic shoes - check updated A1c and urine microalbumin documented in this encounter [facility] 09-21-2024 Evaluation + Plan note Associated Problem(s): Recurrent falls Multiple falls recently may have been due to E. coli UTI, treated with Keflex, completed today. Concern for interaction between Sinemet and olanzapine. She has followed up with psychiatry and they have stopped olanzapine. Shuffling gait with Parkinson's disease increases fall risk. Lives in senior care. Staff tries to have aide assist with walking all the time; patient sometimes up without alerting staff. Difficult to rn transitional and steer walker due to hand/wrist contractions. - She has just completed physical therapy and is walking better - Wear closed footwear with non-slip bottom - No area rugs - Keep cords clear of walkways - Walk with staff assistance only [facility] 09-21-2024 Evaluation + Plan note Associated Problem(s): Type 2 diabetes mellitus without complication (HCC) A1c goal <7.5%. Last A1c was 7.6% in 06/2024. Current treatment with metformin 500 mg BID, empagliflozin 25 mg daily, glipizide 5 mg bid, januvia 100 mg daily. - Check daily fasting BG, keep a log - Try to decrease portions of carbohydrates in favor of more vegetables - Annual diabetic eye exam with [facility] - Follows Dr. Kimble for podiatry, working on getting diabetic shoes - check updated A1c and urine microalbumin [facility] 09-21-2024 History of Present illness Narrative Assessment/Plan: Type 2 diabetes mellitus without complication (HCC) A1c goal <7.5%. Last A1c was 7.6% in 06/2024. Current treatment with metformin 500 mg BID, empagliflozin 25 mg daily, glipizide 5 mg bid, januvia 100 mg daily. - Check daily fasting BG, keep a log - Try to decrease portions of carbohydrates in favor of more vegetables - Annual diabetic eye exam with [facility] - Follows Dr. Kimble for podiatry, working on getting diabetic shoes - check updated A1c and urine microalbumin Recurrent falls Multiple falls recently may have been due to E. coli UTI, treated with Keflex, completed today. Concern for interaction between Sinemet and olanzapine. She has followed up with psychiatry and they have stopped olanzapine. Shuffling gait with Parkinson's disease increases fall risk. Lives in senior care. Staff tries to have aide assist with walking all the time; patient sometimes up without alerting staff. Difficult to rn transitional and steer walker due to hand/wrist contractions. - She has just completed physical therapy and is walking better - Wear closed footwear with non-slip bottom - No area rugs - Keep cords clear of walkways - Walk with staff assistance only Abnormal CT of the abdomen Incidental finding edematous appearance of duodenum infusional loop in upper abdomen probably nonspecific. She has met with Dr. Jones who ordered GI series with small bowel follow-through, deferred EGD for now. Subjective: Shaji Esquivel is a 64 y.o. female Chief Complaint Patient presents with Follow-up Patient presents for follow-up chronic conditions. She is accompanied by senior care staff. Shaji is in good spirits today. DM2 Last A1c was 7.6% in 06/2024. Current treatment with metformin 500 mg BID, empagliflozin 25 mg daily, glipizide 5 mg bid, januvia 100 mg daily. Due for updated A1c today, and urine microalbumin. Abnormal CT Incidental finding edematous appearance of duodenum infusional loop in upper abdomen probably nonspecific. She has met with Dr. Jones who ordered GI series with small bowel follow-through, deferred EGD for now. Recurrent falls Completed PT 09/08/24. retirement staff reports she is walking better. Denies any falls since last visit. The following portions of the patient's history were reviewed and updated as appropriate: allergies, current medications, past family history, past medical history, past social history, past surgical history and problem list. Review of Systems Objective: PACU Vitals 09/21/24 1037 BP: 132/85 Pulse: 79 Resp: 18 Temp: 98 F (36.7 C) SpO2: 92% Physical Exam Constitutional: General: She is not in acute distress. Appearance: Normal appearance. She is not ill-appearing, toxic-appearing or diaphoretic. HENT: Head: Normocephalic and atraumatic. Cardiovascular: Rate and Rhythm: Normal rate and regular rhythm. Heart sounds: Normal heart sounds. No murmur heard. No gallop. Pulmonary: Effort: Pulmonary effort is normal. No respiratory distress. Breath sounds: Normal breath sounds. No wheezing or rales. Skin: General: Skin is warm and dry. Coloration: Skin is not jaundiced or pale. Neurological: Mental Status: She is alert. Mental status is at baseline. Psychiatric: Mood and Affect: Mood normal. For any new medications prescribed today, patient was educated about indications for the medication, how to take the medication and potential side effects of the medications. My ongoing relationship with Shaji Esquivel requires continued responsibility and cognitive effort of being the focal point for all services related to chronic condition(s). Zara Evans DO documented in this encounter [facility] 09-21-2024 Note Assessment/Plan: Type 2 diabetes mellitus without complication (HCC) A1c goal <7.5%. Last A1c was 7.6% in 06/2024. Current treatment with metformin 500 mg BID, empagliflozin 25 mg daily, glipizide 5 mg bid, januvia 100 mg daily. - Check daily fasting BG, keep a log - Try to decrease portions of carbohydrates in favor of more vegetables - Annual diabetic eye exam with [facility] - Follows Dr. Kimble for podiatry, working on getting diabetic shoes - check updated A1c and urine microalbumin Recurrent falls Multiple falls recently may have been due to E. coli UTI, treated with Keflex, completed today. Concern for interaction between Sinemet and olanzapine. She has followed up with psychiatry and they have stopped olanzapine. Shuffling gait with Parkinson's disease increases fall risk. Lives in senior care. Staff tries to have aide assist with walking all the time; patient sometimes up without alerting staff. Difficult to rn transitional and steer walker due to hand/wrist contractions. - She has just completed physical therapy and is walking better - Wear closed footwear with non-slip bottom - No area rugs - Keep cords clear of walkways - Walk with staff assistance only Abnormal CT of the abdomen Incidental finding edematous appearance of duodenum infusional loop in upper abdomen probably nonspecific. She has met with Dr. Jones who ordered GI series with small bowel follow-through, deferred EGD for now. Subjective: Shaji Esquivel is a 64 y.o. female Chief Complaint Patient presents with Follow-up Patient presents for follow-up chronic conditions. She is accompanied by senior care staff. Shaji is in good spirits today. DM2 Last A1c was 7.6% in 06/2024. Current treatment with metformin 500 mg BID, empagliflozin 25 mg daily, glipizide 5 mg bid, januvia 100 mg daily. Due for updated A1c today, and urine microalbumin. Abnormal CT Incidental finding edematous appearance of duodenum infusional loop in upper abdomen probably nonspecific. She has met with Dr. Jones who ordered GI series with small bowel follow-through, deferred EGD for now. Recurrent falls Completed PT 09/08/24. retirement staff reports she is walking better. Denies any falls since last visit. The following portions of the patient's history were reviewed and updated as appropriate: allergies, current medications, past family history, past medical history, past social history, past surgical history and problem list. Review of Systems Objective: PACU Vitals 09/21/24 1037 BP: 132/85 Pulse: 79 Resp: 18 Temp: 98 degrees F (36.7 degrees C) SpO2: 92% Physical Exam Constitutional: General: She is not in acute distress. Appearance: Normal appearance. She is not ill-appearing, toxic-appearing or diaphoretic. HENT: Head: Normocephalic and atraumatic. Cardiovascular: Rate and Rhythm: Normal rate and regular rhythm. Heart sounds: Normal heart sounds. No murmur heard. No gallop. Pulmonary: Effort: Pulmonary effort is normal. No respiratory distress. Breath sounds: Normal breath sounds. No wheezing or rales. Skin: General: Skin is warm and dry. Coloration: Skin is not jaundiced or pale. Neurological: Mental Status: She is alert. Mental status is at baseline. Psychiatric: Mood and Affect: Mood normal. For any new medications prescribed today, patient was educated about indications for the medication, how to take the medication and potential side effects of the medications. My ongoing relationship with Shaji adonay requires continued responsibility and cognitive effort of being the focal point for all services related to chronic condition(s). Zara Evans DO AUTHENTICATED BY ZARA EVANS, ON 09/21/2024 12:39:07 [facility] 09-15-2024 Telephone encounter Note LAST OV 07/29/24. NEXT OV 09/21/24. [facility] 09-15-2024 Miscellaneous Notes LAST OV 07/29/24. NEXT OV 09/21/24. documented in this encounter [facility] 09-09-2024 Note Shaji Esquivel 64 y.o. 1960 female Reason for Consult: Abnormal CT of abdomen HPI: 64-year-old female with history of parkinsonism, schizophrenia, has chronic constipation but no blood in the stool or black-colored stool. Denies any nausea vomiting or heartburn. No history of any recent weight loss. Hypertension, hyperlipidemia, history of some arachnoid hemorrhage, diabetes mellitus was referred to me for evaluation of abnormal CAT scan. Apparently patient had fall and had CT head chest and abdomen. CT abdomen revealed mild edematous appearance of duodenum infusional loop in upper abdomen probably nonspecific to further evaluate the recommended upper GI series and small bowel follow-through and possible endoscopy. Patient has parkinsonism and Past Medical History: Past Medical History: Diagnosis Date Diabetes (HCC) Disease of thyroid gland High cholesterol Hypertension SAH (subarachnoid hemorrhage) (HCC) 12/04/2023 History reviewed. No pertinent family history. Surgical History & Procedures: Past Surgical History: Procedure Laterality Date XR LUMBAR PUNCTURE (DIAGNOSTIC) WITH GAIT ANALYSIS 04/17/2022 XR LUMBAR PUNCTURE (DIAGNOSTIC) WITH GAIT ANALYSIS 04/17/2022 [facility] Social History: Social History[1] Current Medications: Current Medications[2] Review of Systems Constitutional: Negative for appetite change and unexpected weight change. HENT: Negative for voice change. Respiratory: Negative for cough, choking and shortness of breath. Cardiovascular: Negative for chest pain and leg swelling. Gastrointestinal: Negative for abdominal pain, anal bleeding, blood in stool, constipation, diarrhea, nausea, rectal pain and vomiting. Genitourinary: Negative for hematuria. Musculoskeletal: Negative for arthralgias and joint swelling. Skin: Negative for pallor. Neurological: Negative for dizziness, tremors and weakness. Hematological: Negative for adenopathy. Does not bruise/bleed easily. Psychiatric/Behavioral: Negative for confusion. Physical Exam Constitutional: Appearance: Normal appearance. Eyes: Pupils: Pupils are equal, round, and reactive to light. Cardiovascular: Pulses: Normal pulses. Heart sounds: Normal heart sounds. Pulmonary: Breath sounds: Normal breath sounds. Abdominal: General: Bowel sounds are normal. Palpations: Abdomen is soft. There is no mass. Tenderness: There is no abdominal tenderness. Skin: Coloration: Skin is not jaundiced. Neurological: General: No focal deficit present. Mental Status: She is alert and oriented to person, place, and time. Psychiatric: Behavior: Behavior normal. No visits with results within 30 Day(s) from this visit. Latest known visit with results is: Admission on 07/19/2024, Discharged on 07/23/2024 Component Date Value Ref Range Status Extra Tube 07/19/2024 Hold for add-ons. Final Auto resulted. Extra Tube 07/19/2024 Hold for add-ons. Final Auto resulted. Extra Tube 07/19/2024 Hold for add-ons. Final Auto resulted. Extra Tube 07/19/2024 Hold for add-ons. Final Auto resulted. Sodium 07/19/2024 142 135 - 145 mmol/L Final Potassium 07/19/2024 4.2 3.5 - 5.1 mmol/L Final Chloride 07/19/2024 103 98 - 108 mmol/L Final Bicarbonate 07/19/2024 25 21 - 32 mmol/L Final Anion Gap 07/19/2024 18 10 - 20 mmol/L Final Glucose 07/19/2024 140 (H) 65 - 99 mg/dL Final BUN 07/19/2024 30 (H) 8 - 25 mg/dL Final Creatinine 07/19/2024 0.94 0.60 - 1.10 mg/dL Final eGFR 07/19/2024 68 >=60 mL/min/1.73 m2 Final Estimated GFR was calculated using the 2020 CKD-EPI creatinine equation. BUN/Creatinine Ratio 07/19/2024 31.9 (H) 10.0 - 20.0 Final Total Protein 07/19/2024 7.5 6.0 - 8.0 g/dL Final Albumin 07/19/2024 4.4 3.2 - 5.2 g/dL Final Calcium 07/19/2024 9.8 8.4 - 10.2 mg/dL Final Alkaline Phosphatase 07/19/2024 68 40 - 150 U/L Final AST 07/19/2024 17 0-35 U/L U/L Final ALT 07/19/2024 15 0-35 U/L U/L Final Total Bilirubin 07/19/2024 0.2 0.0 - 1.3 mg/dL Final Troponin T 07/19/2024 18 (CH) <=14 ng/L Final Troponin T Interpretation 07/19/2024 Possible acute cardiac injury. Final Color, Urine 07/19/2024 Yellow Colorless, Yellow Final Clarity, Urine 07/19/2024 Cloudy (A) Clear Final Specific [place] 07/19/2024 1.028 (H) 1.005 - 1.025 Final pH, Urine 07/19/2024 6.5 5.0 - 7.0 Final Protein, Urine 07/19/2024 Negative Negative mg/dL Final Glucose, Urine 07/19/2024 >=500 (A) Negative, >=1000 mg/dL Final Ketones, Urine 07/19/2024 Trace (A) Negative mg/dL Final Bilirubin, Urine 07/19/2024 Negative Negative Final Urobilinogen, Urine 07/19/2024 <2.0 <2.0 mg/dL Final Blood, Urine 07/19/2024 Negative Negative Final Nitrite, Urine 07/19/2024 Negative Negative Final Leukocyte Esterase, Urine 07/19/2024 Small (A) Negative Final WBCs, Urine 07/19/2024 14 (H) 0 - 5 /hpf Final Bacteria, Urine 07/19/2024 Many (A) None Seen /hpf Final Squamous Epithelial 07/19/2024 8 (H) 0 - 4 /hpf Final Mucus, (more content not included)... [facility] 09-09-2024 History of Present illness Narrative Shaji Esquivel 64 y.o. 1960 female Reason for Consult: Abnormal CT of abdomen HPI: 64-year-old female with history of parkinsonism, schizophrenia, has chronic constipation but no blood in the stool or black-colored stool. Denies any nausea vomiting or heartburn. No history of any recent weight loss. Hypertension, hyperlipidemia, history of some arachnoid hemorrhage, diabetes mellitus was referred to me for evaluation of abnormal CAT scan. Apparently patient had fall and had CT head chest and abdomen. CT abdomen revealed mild edematous appearance of duodenum infusional loop in upper abdomen probably nonspecific to further evaluate the recommended upper GI series and small bowel follow-through and possible endoscopy. Patient has parkinsonism and Past Medical History: Past Medical History: Diagnosis Date Diabetes (HCC) Disease of thyroid gland High cholesterol Hypertension SAH (subarachnoid hemorrhage) (HCC) 12/04/2023 History reviewed. No pertinent family history. Surgical History & Procedures: Past Surgical History: Procedure Laterality Date XR LUMBAR PUNCTURE (DIAGNOSTIC) WITH GAIT ANALYSIS 04/17/2022 XR LUMBAR PUNCTURE (DIAGNOSTIC) WITH GAIT ANALYSIS 04/17/2022 DIAGNOSTICS Social History: Social History[1] Current Medications: Current Medications[2] Review of Systems Constitutional: Negative for appetite change and unexpected weight change. HENT: Negative for voice change. Respiratory: Negative for cough, choking and shortness of breath. Cardiovascular: Negative for chest pain and leg swelling. Gastrointestinal: Negative for abdominal pain, anal bleeding, blood in stool, constipation, diarrhea, nausea, rectal pain and vomiting. Genitourinary: Negative for hematuria. Musculoskeletal: Negative for arthralgias and joint swelling. Skin: Negative for pallor. Neurological: Negative for dizziness, tremors and weakness. Hematological: Negative for adenopathy. Does not bruise/bleed easily. Psychiatric/Behavioral: Negative for confusion. Physical Exam Constitutional: Appearance: Normal appearance. Eyes: Pupils: Pupils are equal, round, and reactive to light. Cardiovascular: Pulses: Normal pulses. Heart sounds: Normal heart sounds. Pulmonary: Breath sounds: Normal breath sounds. Abdominal: General: Bowel sounds are normal. Palpations: Abdomen is soft. There is no mass. Tenderness: There is no abdominal tenderness. Skin: Coloration: Skin is not jaundiced. Neurological: General: No focal deficit present. Mental Status: She is alert and oriented to person, place, and time. Psychiatric: Behavior: Behavior normal. No visits with results within 30 Day(s) from this visit. Latest known visit with results is: Admission on 07/19/2024, Discharged on 07/23/2024 Component Date Value Ref Range Status Extra Tube 07/19/2024 Hold for add-ons. Final Auto resulted. Extra Tube 07/19/2024 Hold for add-ons. Final Auto resulted. Extra Tube 07/19/2024 Hold for add-ons. Final Auto resulted. Extra Tube 07/19/2024 Hold for add-ons. Final Auto resulted. Sodium 07/19/2024 142 135 - 145 mmol/L Final Potassium 07/19/2024 4.2 3.5 - 5.1 mmol/L Final Chloride 07/19/2024 103 98 - 108 mmol/L Final Bicarbonate 07/19/2024 25 21 - 32 mmol/L Final Anion Gap 07/19/2024 18 10 - 20 mmol/L Final Glucose 07/19/2024 140 (H) 65 - 99 mg/dL Final BUN 07/19/2024 30 (H) 8 - 25 mg/dL Final Creatinine 07/19/2024 0.94 0.60 - 1.10 mg/dL Final eGFR 07/19/2024 68 >=60 mL/min/1.73 m2 Final Estimated GFR was calculated using the 2020 CKD-EPI creatinine equation. BUN/Creatinine Ratio 07/19/2024 31.9 (H) 10.0 - 20.0 Final Total Protein 07/19/2024 7.5 6.0 - 8.0 g/dL Final Albumin 07/19/2024 4.4 3.2 - 5.2 g/dL Final Calcium 07/19/2024 9.8 8.4 - 10.2 mg/dL Final Alkaline Phosphatase 07/19/2024 68 40 - 150 U/L Final AST 07/19/2024 17 0-35 U/L U/L Final ALT 07/19/2024 15 0-35 U/L U/L Final Total Bilirubin 07/19/2024 0.2 0.0 - 1.3 mg/dL Final Troponin T 07/19/2024 18 (CH) <=14 ng/L Final Troponin T Interpretation 07/19/2024 Possible acute cardiac injury. Final Color, Urine 07/19/2024 Yellow Colorless, Yellow Final Clarity, Urine 07/19/2024 Cloudy (A) Clear Final Specific [place] 07/19/2024 1.028 (H) 1.005 - 1.025 Final pH, Urine 07/19/2024 6.5 5.0 - 7.0 Final Protein, Urine 07/19/2024 Negative Negative mg/dL Final Glucose, Urine 07/19/2024 >=500 (A) Negative, >=1000 mg/dL Final Ketones, Urine 07/19/2024 Trace (A) Negative mg/dL Final Bilirubin, Urine 07/19/2024 Negative Negative Final Urobilinogen, Urine 07/19/2024 <2.0 <2.0 mg/dL Final Blood, Urine 07/19/2024 Negative Negative Final Nitrite, Urine 07/19/2024 Negative Negative Final Leukocyte Esterase, Urine 07/19/2024 Small (A) Negative Final WBCs, Urine 07/19/2024 14 (H) 0 - 5 /hpf Final Bacteria, Urine 07/19/2024 Many (A) None Seen /hpf Final Squamous Epithelial 07/19/2024 8 (H) 0 - 4 /hpf Final Mucus, Urine 07/19/2024 Rare None Seen, Rare /lpf Final TSH 07/19/2024 3.18 0.27 - 4.20 mcIU/mL Final T4, Free 07/19/2024 1.6 0.7 - 1.7 ng/dL Final Protime (PT) 07/19/2024 13.2 11.8 - 14.3 seconds Final INR 07/19/2024 1.0 0.8 - 1.1 Final APTT 07/19/2024 23 23 - 34 seconds Final WBC 07/19/2024 5.98 4.50 - 11.00 K/mcL Final RBC 07/19/2024 5.02 4.00 - 5.20 M/mcL Final Hemoglobin 07/19/2024 14.4 12.0 - 16.0 g/dL Final Hematocrit 07/19/2024 47.7 (H) 36.0 - 46.0 % Final MCV 07/19/2024 95.0 80.0 - 100.0 fL Final MCH 07/19/2024 28.7 26.0 - 34.0 pg Final MCHC 07/19/2024 30.2 (L) 31.0 - 37.0 g/dL Final Platelets 07/19/2024 294 150 - 400 K/mcL Final RDW - CV 07/19/2024 13.3 11.6 - 14.8 % Final MPV 07/19/2024 10.4 9.4 - 12.4 fL Final Neutrophils 07/19/2024 74.1 % Final Lymphocytes 07/19/2024 15.4 % Final Monocytes 07/19/2024 6.7 % Final Eosinophils 07/19/2024 3.3 % Final Basophils 07/19/2024 0.2 % Final IG Percent 07/19/2024 0.30 % Final The IG parameter is the percentage of metamyelocytes, myelocytes and promyelocytes. An immature granulocyte count (IG) of 1% or more suggests the possibility of infection, an IG count of 3% is very likely related to an infection. Neutrophils Abs 07/19/2024 4.43 1.70 - 7.00 K/mcL Final Lymphocytes Abs 07/19/2024 0.92 0.90 - 4.00 K/mcL Final Monocytes Abs 07/19/2024 0.40 0.30 - 0.90 K/mcL Final Eosinophils Abs 07/19/2024 0.20 0.00 - 0.50 K/mcL Final Basophils Abs 07/19/2024 0.01 0.00 - 0.30 K/mcL Final IG Absolute 07/19/2024 0.02 0.00 - 0.30 K/mcL Final Nucleated RBC 07/19/2024 0.0 % Final Nucleated RBC Abs 07/19/2024 0.00 0.00 - 0.00 K/mcL Final Lipase 07/19/2024 56 15 - 65 U/L Final SARS-CoV-2 07/19/2024 Not Detected Not Detected Final Influenza A 07/19/2024 Not Detected Not Detected Final Influenza B 07/19/2024 Not Detected Not Detected Final Glucose 07/19/2024 125 (H) 65 - 99 mg/dL Final Glucose 07/19/2024 124 (H) 65 - 99 mg/dL Final Culture 07/20/2024 >100,000 CFU/mL Escherichia coli (A) Final Culture 07/20/2024 < 10,000 CFU/mL of normal urogenital microbiota Final Lipase 07/20/2024 36 15 - 65 U/L Final Glucose 07/20/2024 160 (H) 65 - 99 mg/dL Final Glucose 07/20/2024 131 (H) 65 - 99 mg/dL Final Glucose 07/20/2024 147 (H) 65 - 99 mg/dL Final Glucose 07/20/2024 131 (H) 65 - 99 mg/dL Final Glucose 07/21/2024 106 (H) 65 - 99 mg/dL Final Glucose 07/21/2024 107 (H) 65 - 99 mg/dL Final Glucose 07/22/2024 120 (H) 65 - 99 mg/dL Final Glucose 07/22/2024 154 (H) 65 - 99 mg/dL Final Glucose 07/22/2024 134 (H) 65 - 99 mg/dL Final Glucose 07/22/2024 170 (H) 65 - 99 mg/dL Final Glucose 07/23/2024 143 (H) 65 - 99 mg/dL Final Glucose 07/23/2024 218 (H) 65 - 99 mg/dL Final Assessment & Plan: 64-year-old female with multiple medical problem and history of parkinsonism and frequent fall had fall and had CT head chest and abdomen and accidental finding was edematous appearance of duodenum infusional loop in upper abdomen probably nonspecific. As suggested by radiology we will get upper GI series and small bowel follow-through and if indicated we will consider for EGD. In view of her medical problems I will defer EGD at present and get upper GI series with small bowel follow-through. Marcos Barrera MD [1] Social History Socioeconomic History Marital status: Single Tobacco Use Smoking status: Never Smokeless tobacco: Never Vaping Use Vaping status: Never Used Substance and Sexual Activity Alcohol use: Not Currently Drug use: Not Currently Social Drivers of Health Financial Resource Strain: Patient Unable To Answer (07/13/2024) Overall Financial Resource Strain (CARDIA) Difficulty of Paying Living Expenses: Patient unable to answer Food Insecurity: No Food Insecurity (07/19/2024) Hunger Vital Sign Worried About Running Out of Food in the Last Year: Never true Ran Out of Food in the Last Year: Never true Transportation Needs: No Transportation Needs (07/19/2024) PRAPARE - Transportation Lack of Transportation (Medical): No Lack of Transportation (Non-Medical): No Physical Activity: Patient Unable To Answer (07/13/2024) Exercise Vital Sign Days of Exercise per Week: Patient unable to answer Minutes of Exercise per Session: Patient unable to answer Stress: Patient Unable To Answer (07/13/2024) [place] [employer] - Occupational Stress Questionnaire Feeling of Stress : Patient unable to answer Social Connections: Patient Unable To Answer (07/13/2024) Social Connection and Isolation Panel [NHANES] Frequency of Communication with Friends and Family: Patient unable to answer Frequency of Social Gatherings with Friends and Family: Patient unable to answer Attends [employer] Services: Patient unable to answer Active Member of Clubs or Organizations: Patient unable to answer Attends Club or Organization Meetings: Patient unable to answer Marital Status: Patient unable to answer Housing Stability: Low Risk (07/19/2024) Housing Stability Vital Sign Unable to Pay for Housing in the Last Year: No Number of Times Moved in the Last Year: 0 Homeless in the Last Year: No [2] Current Outpatient Medications Medication Sig Dispense Refill acetaminophen (TYLENOL) 500 MG tablet Take 1 (one) tablet (500 mg total) by mouth every 6 (six) hours as needed for pain . aluminum-magnesium hydroxide-simethicone (MAALOX PLUS) 200-200-20 mg/5 mL Susp Take 30 mL by mouth 4 (four) times a day before meals and nightly . amLODIPine (NORVASC) 2.5 MG tablet Take 1 (one) tablet (2.5 mg total) by mouth daily . atorvastatin (LIPITOR) 10 MG tablet Take 1 (one) tablet (10 mg total) by mouth every night at bedtime . benztropine (COGENTIN) 1 MG tablet Take 1 (one) tablet (1 mg total) by mouth 2 (two) times a day . carbidopa-levodopa (SINEMET) 25-100 mg per tablet Take 2 (two) tablets by mouth 3 (three) times a day . 540 tablet 3 docusate sodium (COLACE) 100 MG capsule Take 1 (one) capsule (100 mg total) by mouth 2 (two) times a day . 180 capsule 3 empagliflozin 25 mg Tab Take 1 (one) tablet (25 mg total) by mouth daily . estradioL (ESTRACE) 0.01 % (0.1 mg/gram) vaginal cream Insert 2 (two) g into the vagina daily . fluoride, sodium, (DENTA 5000 PLUS DENT) Use to brush teeth once a day as directed . glipiZIDE (GLUCOTROL) 10 MG tablet Take 1 (one) tablet (10 mg total) by mouth 2 (two) times a day before meals . levothyroxine (SYNTHROID, LEVOTHROID) 75 MCG tablet Take 1 (one) tablet (75 mcg total) by mouth every morning At 6 AM . melatonin 3 mg Tab Take 1 (one) tablet (3 mg total) by mouth nightly . metFORMIN (GLUCOPHAGE-XR) 500 MG 24 hr tablet Take 2 (two) tablets (1,000 mg total) by mouth 2 (two) times a day . mirtazapine (REMERON NIKHIL-TAB) 30 MG disintegrating tablet Dissolve 1 (one) tablet (30 mg total) on top of tongue nightly . orsjlyzz-pmx-dgpwkkg fumarate 15 mg iron Tab Take 1 tablet by mouth every morning . 90 tablet 3 Nuplazid 10 mg Tab nut.tx.glucose intolerance,soy (GLUCERNA ORAL) Take 1 Can by mouth 4 (four) times a day . OLANZapine (ZYPREXA) 5 MG tablet Take 1 (one) tablet (5 mg total) by mouth nightly . omeprazole (PRILOSEC) 40 MG capsule Take 1 (one) capsule (40 mg total) by mouth . phenylephrine-shark liver oil-mineral oil-petrolatum (PREPARATION H) Oint Insert 1 Application into the rectum 4 (four) times a day . polyethylene glycol (MIRALAX) 17 gram powder Take 17 (seventeen) g by mouth daily . potassium chloride SA (K-DUR,KLOR-CON) 10 MEQ tablet Take 1 (one) tablet (10 mEq total) by mouth daily . senna-docusate (SENNA-S) 8.6-50 mg Take 1 (one) tablet by mouth daily . UNABLE TO FIND Benacalorie mixed in food or drink 3 times daily as needed for meal intake less than 50% . cephALEXin (KEFLEX) 250 MG capsule Take 1 (one) capsule (250 mg total) by mouth every 6 (six) hours . (Patient not taking: Reported on 09/09/2024 .) 20 capsule 0 diclofenac sodium 1% (VOLTAREN) 1 % Gel Apply 4 (four) g topically 4 (four) times a day Apply to Both Knees and right hip . (Patient not taking: Reported on 09/09/2024 .) No current facility-administered medications for this visit. documented in this encounter [facility] 09-08-2024 History of Present illness Narrative Images from the original note were not included. [facility] OUTPATIENT REHABILITATION DAILY TREATMENT NOTE/DISCHARGE Today's Date 09/08/2024 Patient Name: Shaji Esquivel Date of : 1960 Current Visit #: 8 Authorized Visits: [id number] Case Name: PT - Multiple Falls; PD History: Pre-Treatment Pain Scale: 0 Symptoms: stabilized Functional Diagnosis: 1. Parkinson's disease, unspecified whether dyskinesia present, unspecified whether manifestations fluctuate (HCC) 2. Primary osteoarthritis involving multiple joints 3. Frequent falls Clinical Information: Subjective: The patient, Shaji, arrived to therapy this date stating that she is doing good today. Shaji mentioned that she has enjoyed her time here. Shaji mentioned that she has been completing her exercises. She has felt sore from performing her exercises. Shaji mentioned that she had a birthday libertarian this past weekend. Otherwise, nothing new to report or updates to provide. Objective Treatments: Physical Therapy Exercise Log - 09/08/24 1011 OTHER Precautions/Contraindications Parkinson's disease, unspecified whether dyskinesia present, unspecified whether manifestations fluctuate (HCC). Frequent Falls. Notes Visit 8: 10:15-11:00 Vitals Eval Date: 08/02/2024. POC: 2x4 Therapeutic Exercise (27354) Intervention Access Code: [email or web address] URL: [email or web address] Date: 08/27/2024 Prepared by: Melissa Sena Exercises - Standing Knee Flexion with Counter Support - 2 x daily - 7 x weekly - 1 sets - 10 reps - Standing March with Unilateral Counter Support - 2 x daily - 7 x weekly - 1 sets - 10 reps - Standing Hip Extension with Unilateral Counter Support - 2 x daily - 7 x weekly - 1 sets - 10 reps - Heel Toe Raises with Unilateral Counter Support - 2 x daily - 7 x weekly - 1 sets - 10 reps - Standing Hip Abduction with Unilateral Counter Support - 2 x daily - 7 x weekly - 1 sets - 10 reps - Mini Squat with Counter Support - 2 x daily - 7 x weekly - 1 sets - 10 reps - Standing Hip Flexion with Counter Support - 2 x daily - 7 x weekly - 1 sets - 10 reps Parameters Nustep L1 x6 min to increase LE strength, reciprocal pattern, and functional endurance with min assistance needed to maintain pacing. Pt. requires CGA-Danielle to avoid lateral leaning in chair, and Moderate encouragement to continue to pedal. Intervention Standing hip flex, abd, and marches completed 10xeach bilat with BUE support inside parallel bars to facilitate improved functional mobility and activity tolerance with pt requiring max verbal, tactile, and visual cues for completion. Neuro Re-Ed (56200) Intervention Discharge Summary/Goal Reassessment x45 mins Parameters The patient and caregiver were edcuated on the importance of continuing with performing her daily HEP provided at the beginning of therapy, and in taking daily walks, multiple times if possible to prevent contractures, pressure wounds/skin breakdown, and LE circulation, to prevent the patient from becoming WC bound. Niva and the caregiver both verbalized understanding as this was stressed by the therapist multiple times throughout the session. Movement is medicine, and Niva has the capacity to continue walking with CGA from 1-2 of her caregivers so that she can remain as mobile as pssoible with reducing the incidence of secondary impairments from occurring that will result from immobilie and staying in a seated position throughout the day. Functional Activity (97058) Intervention Repeated STSs from chair with unilateral to no UE support 10x with emphasis on improved anterior weightshifting, sequencing, and eccentric control. Verbal and tactile cues provided for proper body mechanics and safety with transfers. Pt requiring CGA to occ Danielle d/t retropulsion. Parameters Toilet transfer completed with CGA with pt requiring assistnce for jessy care and lower body clothing management. Verbal cues provided for proper hand placement and positioning to seat for safety. Additional Exercises Add more exercises? Yes Gait Training (96075) Intervention Pt ambulating for short distances (approx 40') throughout therapy gym with no AD with CGA. Pt demos an occ shuffling pattern with decreased step length/height. Verbal cues provided for improved step length and foot clearance with pt having good carryover. Verbal cues also provided for attention to task d/t pt being easily distracted. PT Treatment Times Neuro Re-Ed Total Time 45 10:15-11:00 Direct Treatment Time 45 Total Treatment Time 45 Goals: Physical Therapy Neuro Goals: To be completed by discharge: Patient will achieve restricted community ambulator status per gait speed of 0.4-0.8 m/sec using LRAD with mod independence in 4 weeks (Progress made toward goal on 09/08/2024: 0.375m/s with bilateral UE support from therapist and caregiver for safety and encouragement). Pt will ambulate with minimal imbalance or path deviation in gait over level surfaces for >200 feet including direction changes and turns in 4 weeks (Progress made toward goal on 09/08/2024: the patient required heavy VCs to slow down and/or pause and reset her posture as she presents with increased anteropulsion). Patient will complete basic transfers (bed mobility, stand, pivot, tub, toilet and car) without upper extremity reliance and modified independence to indicate improved functional mobility and independence in 4 weeks (GOAL MET on 09/08/2024). Patient will complete the 5 times sit to supervisor inventory merchandising 24 seconds or less without the use of her UE for support to indicate improved functional strength and mobility in 4 weeks (GOAl MET on 09/08/2024: 20.27s). Patient will perform the 3m BWT in no longer than 22 seconds and in 20 steps or less indicating her ability to back up when navigating her home environment, especially in the presence of other individuals around her in 4 weeks (Progress made toward goal on 09/08/2024: 19.96 s in 24 steps to complete). Pt will increase strength in bilateral lower extremities to at least 4 /5 in all planes for improved functional mobility in 4 weeks (Progress made toward goal: patient experiences pain with tactile stimulation, even to light touch. The patient can performed the movements with the exception of a tight R HS muscle group and PF muscle group: passively the patient can be taken through most of the ROM). Patient will improve endurance, as demonstrated by significant improvement in or age-appropriate score on 2-minute walk test achieving a distance of at least 200' in 4 weeks (Progress made toward goal on 09/08/2024: 95'). Patient will perform the 360 deg turn test in 8 seconds or less and in no more than 12 steps to complete, thereby, reducing her risk of falling while turning in 4 weeks (progress made toward goal on 09/08/2024: >10 seconds to complete and in 20+ steps to complete). Patient will perform the TUG test in no longer than 16 seconds indicating improved functional mobility., strength, and balance in 4 weeks (Progress made toward goal on 09/08/2024: 17.42s). Patient will demonstrate improvements noted with her posture during the tragus to wall test achieving a distance of no greater than 12 in 4 weeks (Progress made toward goal on 09/08/2024: 13 bilaterally). Patient Education: Quality of movement, Verbal HEP, HEP Adherence, and Home Safety with patient demonstrated understanding and verbalized understanding. Post-Treatment Pain Scale: 0 Assessment: Patient had an expected response to treatment. Skilled Intervention demonstrated by modifications of treatment per exercise log including assessment of patient's response and safety interventions per exercise log. Progress towards goals as expected. Plan for Next Visit: Discharge Plan: Patient has achieved maximum benefit from skilled services at this time Patient was in agreement with discharge plan and Patient was informed of discharge plan No follow-up therapy indicated at this time, reconsult as needed. Julianne Buck, PT State License, [id number] Cosigned by Shelley Maldonado PA-C at 09/14/2024 11:41 AM EDT documented in this encounter [facility] 09-06-2024 History of Present illness Narrative Documentation received for pt. Provider reviewed and signed. Faxed back to number provided and sent to [facility] to scan to pt chart. documented in this encounter [facility] 09-02-2024 History of Present illness Narrative Images from the original note were not included. [facility] OUTPATIENT REHABILITATION DAILY TREATMENT NOTE Today's Date 09/02/2024 Patient Name: Shaji Esquivel Date of : 1960 Current Visit #: 6 Authorized Visits: [id number] Case Name: PT - Multiple Falls; PD History: Pre-Treatment Pain Scale: 0 Symptoms: gradually improved Functional Diagnosis: 1. Parkinson's disease, unspecified whether dyskinesia present, unspecified whether manifestations fluctuate (HCC) 2. Primary osteoarthritis involving multiple joints 3. Frequent falls Clinical Information: Subjective: Pt presents to PT session with caregivers. Pt c/o stomach discomfort d/t recent bowel issues. Objective Treatments: Physical Therapy Exercise Log - 09/02/24 1023 OTHER Precautions/Contraindications Parkinson's disease, unspecified whether dyskinesia present, unspecified whether manifestations fluctuate (HCC). Frequent Falls. Notes Visit 6: 10:22-11:01 Vitals Eval Date: 08/02/2024. POC: 2x4 Therapeutic Exercise (80035) Intervention Access Code: [email or web address] URL: [email or web address] Date: 08/27/2024 Prepared by: Melissa Sena Exercises - Standing Knee Flexion with Counter Support - 2 x daily - 7 x weekly - 1 sets - 10 reps - Standing March with Unilateral Counter Support - 2 x daily - 7 x weekly - 1 sets - 10 reps - Standing Hip Extension with Unilateral Counter Support - 2 x daily - 7 x weekly - 1 sets - 10 reps - Heel Toe Raises with Unilateral Counter Support - 2 x daily - 7 x weekly - 1 sets - 10 reps - Standing Hip Abduction with Unilateral Counter Support - 2 x daily - 7 x weekly - 1 sets - 10 reps - Mini Squat with Counter Support - 2 x daily - 7 x weekly - 1 sets - 10 reps - Standing Hip Flexion with Counter Support - 2 x daily - 7 x weekly - 1 sets - 10 reps Parameters Nustep L1 x6 min to increase LE strength, reciprocal pattern, and functional endurance with min assistance needed to maintain pacing. Pt. requires CGA-Danielle to avoid lateral leaning in chair, and Moderate encouragement to continue to pedal. Intervention Standing hip flex 10xeach bilat with BUE support inside parallel bars with pt requiring max verbal, tactile, and visual cues for completion Parameters Standing hip abd 10xeach bilat with BUE support inside parallel bars with pt requiring max verbal, tactile, and visual cues for completion Intervention -- Neuro Re-Ed (43218) Intervention Fwd ambulation over hockey sticks inside parallel bars for 2 laps to facilitate improved step length and foot clearance as well as improved dynamic balance with decreased UE support. Pt completing first lap with BUE support with progression to no UE support on second trial with pt demo'g improved ability to complete without UE support. Functional Activity (52915) Intervention Pt completing transfers this date with CGA-Danielle. Parameters Pt demos decreased activity tolerance with all activities requiring several seated rest breaks. Additional Exercises Add more exercises? Yes Gait Training (17605) Intervention Pt ambulating short distances throughout therapy gym with no AD with CGA. Pt demos an occ shuffling pattern with decreased step length/height. PT Treatment Times Therex Total Time 28 10:22-10:50 Neuro Re-Ed Total Time 11 10:50-11:01 Direct Treatment Time 39 Total Treatment Time 39 Goals: Physical Therapy Neuro Goals: To be completed by discharge: Patient will achieve restricted community ambulator status per gait speed of 0.4-0.8 m/sec using LRAD with mod independence in 4 weeks. Pt will ambulate with minimal imbalance or path deviation in gait over level surfaces for >200 feet including direction changes and turns in 4 weeks. Patient will complete basic transfers (bed mobility, stand, pivot, tub, toilet and car) without upper extremity reliance and modified independence to indicate improved functional mobility and independence in 4 weeks. Patient will complete the 5 times sit to supervisor inventory merchandising 24 seconds or less without the use of her UE for support to indicate improved functional strength and mobility in 4 weeks. Patient will perform the 3m BWT in no longer than 22 seconds and in 20 steps or less indicating her ability to back up when navigating her home environment, especially in the presence of other individuals around her in 4 weeks. Pt will increase strength in bilateral lower extremities to at least 4 /5 in all planes for improved functional mobility in 4 weeks. Patient will improve endurance, as demonstrated by significant improvement in or age-appropriate score on 2-minute walk test achieving a distance of at least 200' in 4 weeks. Patient will perform the 360 deg turn test in 8 seconds or less and in no more than 12 steps to complete, thereby, reducing her risk of falling while turning in 4 weeks. Patient will perform the TUG test in no longer than 16 seconds indicating improved functional mobility., strength, and balance in 4 weeks. Patient will demonstrate improvements noted with her posture during the tragus to wall test achieving a distance of no greater than 12 in 4 weeks. Patient Education: Quality of movement, Verbal HEP, HEP Adherence, and Caregiver Education with patient demonstrated understanding and verbalized understanding. Post-Treatment Pain Scale: 0 Assessment: Patient had an expected response to treatment. Skilled Intervention demonstrated by modifications of treatment per exercise log including increased cueing, increased mobility, and assessment of patient's response and safety interventions per exercise log. Progress towards goals as expected. Plan for Next Visit: Treatment Visit with focus on continued functional mobility training as tolerated and further caregiver education for safety and improved mobility at home. Serenity Gandhi PTA State License, [id number] Cosigned by Kody Hall PT at 09/02/2024 2:52 PM EDT documented in this encounter [facility] 08-13-2024 History of Present illness Narrative [facility] Occupational Therapy Screen Today's Date 08/13/2024 Patient Name: Shaji Esquivel Date of : 1960 Case Name: OT-Falls,PD-2024 Functional Diagnosis: 1. Frequent falls 2. Parkinson's disease (HCC) Clinical Information: Subjective All subjective data collected as part of a multidisciplinary team: Yes Referring Diagnosis: R29.6 (ICD-10-CM) - Multiple falls; G20.A1 (ICD-10-CM) - Parkinson's disease, unspecified whether dyskinesia present, unspecified whether manifestations fluctuate (HCC); S22.20XD (ICD-10-CM) - Closed fracture of sternum with routine healing, unspecified portion of sternum, subsequent encounte Follow-up with physician: 06/09/2025 (Dr. Ortiz - once annually) Patient accompanied by: Caregiver and nurse who work at the [facility]. History of Present Illness Date of Onset: 07/19/2024 Contemporary Medical History: Frequent Fall Parkinson's Disease Balance Disorder Schizophrenia Sternal Fracture Hypothyroidism Levothyroxine GERD HTN HLD NIDDM2 Subjective History: Patient presenting this date with her caregivers for outpatient occupational therapy evaluation following recent hospital LOS secondary to sustained fall. Per charting, pt with past medical history of hypertension, hyperlipidemia, diabetes, Parkinson's Disease, and subarachnoid hemorrhage, presented to [facility] ED from senior care assisted living facility for evaluation of multiple falls that been progressively worsening over the past 2 weeks. No specific alleviating or aggravating factors. At the time of admission, per client experience manager, patient fell from chair hit back of head. CT did reveal a closed non-displaced fracture of her sternum that appears to be in the subacute stages. Pt has contractures in her hands, to which she wears a brace 2x/daily for 1-hour in her L hand to help with the contractures. Over time, it has become increasingly difficult to get the splint on for her R hand and therefore, she does not wear one, which is why she has not been able to use an assistive device during functional mobility. She also experiences symptoms of a L hand tremor, postural instability, rigidity, and bradykinesia secondary to her diagnosis of idiopathic PD. Currently, her PD-specific medication schedule entails: C/L - 2 tablets 3x/daily. 25/100 mg. She is on a fine ground diet with regular liquids to prevent aspiration which was determined by a [employer] she used to see in the past, and appears to still be doing well with it now according to her caregivers. At baseline, patient requires either max-dependent physical assistance for BADL performance. Patient has participated in outpatient occupational therapy in the past with last encounter from January - May 2024. Currently, per caregiver report, patient is functioning at baseline for ADL function. Patient does not actively use her left hand or arm but is tolerating brace. No splinting or bracing needs for left upper extremity identified at this time. No other therapeutic needs for Occupational Therapy identified during this brief encounter. Evaluation discontinued due to no needs identified at this time and patient functioning at baseline for ADL performance. Patient and caregiver was agreeable with therapist charting as a screening for today's encounter due to the brevity. Home medical equipment owned: Neuro Rehab Home Equipment: HH shower head in a walk-in shower. Gait Devices: does not use an AD. Instrumental Activities of Daily Living Prior Avocational Participation (community involvement, hobbies, volunteer): Tic-Tac toe; exercise while sitting. Evaluation Treatment Plan: Frequency of Visits: OT screen Duration: 0 weeks Interventions: OT screen Rehab Potential: N/A Occupational Therapy Neuro goals: Clinical Impression: At this time, outpatient Occupational Therapy not warranted due to patient performing at baseline for bimanual coordination, splinting/bracing needs meeting patient's current therapeutic needs, AD ADL performance at baseline. Thank you for allowing me to participate in this patient's care. Please contact me with any questions at the above number. Soto Daly OTR/L STATE LICENSE, [id number] documented in this encounter [facility] 08-04-2024 Evaluation + Plan note Associated Problem(s): Recurrent falls Multiple falls recently may have been due to E. coli UTI, treated with Keflex, completed today. Concern for interaction between Sinemet and olanzapine. She has followed up with psychiatry and reduced olanzapine dose to 5 mg. Shuffling gait with Parkinson's disease increases fall risk. Lives in senior care. Staff tries to have aide assist with walking all the time; patient sometimes up without alerting staff. Difficult to rn transitional and steer walker due to hand/wrist contractions. - She is beginning physical therapy - Wear closed footwear with non-slip bottom - No area rugs - Keep cords clear of walkways - Walk with staff assistance only [facility] 08-04-2024 Miscellaneous Notes Associated Problem(s): Recurrent falls Multiple falls recently may have been due to E. coli UTI, treated with Keflex, completed today. Concern for interaction between Sinemet and olanzapine. She has followed up with psychiatry and reduced olanzapine dose to 5 mg. Shuffling gait with Parkinson's disease increases fall risk. Lives in senior care. Staff tries to have aide assist with walking all the time; patient sometimes up without alerting staff. Difficult to rn transitional and steer walker due to hand/wrist contractions. - She is beginning physical therapy - Wear closed footwear with non-slip bottom - No area rugs - Keep cords clear of walkways - Walk with staff assistance only documented in this encounter [facility] 08-02-2024 History of Present illness Narrative Images from the original note were not included. [facility] Physical Therapy Evaluation Today's Date 08/03/2024 Patient Name: Shaji Esquivel Date of : 1960 Case Name: PT - Multiple Falls; PD Functional Diagnosis: 1. Parkinson's disease, unspecified whether dyskinesia present, unspecified whether manifestations fluctuate (HCC) 2. Primary osteoarthritis involving multiple joints 3. Frequent falls 4. Multiple falls Clinical Information: Subjective All subjective data collected as part of a multidisciplinary team: No Referring Diagnosis: Frequent Falls; Parkinson's disease, unspecified whether dyskinesia present, unspecified whether manifestations fluctuate (HCC). Follow-up with physician: 06/09/2025 (Dr. Ortiz - once annually) Patient accompanied by: Caregiver and nurse who work at the senior care ALF. History of Present Illness Subjective History: The patient, Shaji, is a 63 y.o. Female presenting to outpatient neurological physical therapy at [facility] on 08/02/2024 s/p a recent 4 day hospital stay for a fall that resulted in hitting the back of her head on a chair. Per the patient's ED note from 07/19, Shaji has a past medical history of hypertension, hyperlipidemia, diabetes, Parkinson's Disease, and subarachnoid hemorrhage, presents to the emergency department from senior care assisted living facility for evaluation of multiple falls that been progressively worsening over the past 2 weeks. No specific alleviating or aggravating factors. Today, per client experience manager, patient fell from chair hit back of head. Patient reporting knee pain symptoms as well as back pain symptoms on the right upper side. Patient reports head pain symptoms as well. CT did reveal a closed non-displaced fracture of her sternum that appears to be in the subacute stages (according to Camelia, she does not have any sternal precautions and the patient is not complaining of pain in this region). Patient also has diminished protective sensation in her feet according her an office visit with Dr. Kimble, BHUMI. Shaji has contractures in her hands, to which she wears a brace 2x/daily for 1-hour in her L hand to help with the contractures. Over time, it has become increasingly difficult to get the splint on for her R hand and therefore, she does not wear one, which is why she has not been able to use an assistive device during functional mobility. She also experiences symptoms of a L hand tremor, postural instability, rigidity, and bradykinesia secondary to her diagnosis of idiopathic PD. Currently, her PD-specific medication schedule entails: C/L - 2 tablets 3x/daily. 25/100 mg. She is on a fine ground diet with regular liquids to prevent aspiration which was determined by a [employer] she used to see in the past, and appears to still be doing well with it now according to her caregivers. Her biggest daily challenges seem to be involved with her shuffling steps when walking and leans forward, bed mobility, transfers, and in use of her hands. She can ambulate 25-50 foot distances as long as she is ambulating with someone to prevent a fall from a LOB episode from occurring. However, her caregivers noted that she does not ambulate but a minimal amount daily because she will tend to perseverate and manifest behaviors that increase her fall risk. When redirected, she can often improve her ability to perform functional mobility. Previous Treatment for this condition: Yes Therapy type: outpatient rehab Patient reports status as: worsening Previous Imaging: CT and MRI Hand dominance: right Overall rating of health: Fair Pain Scale Pain location: No pain reported Personal Goals: Improve my strength, balance, and endurance Functional Mobility Status Recent change in functional mobility status: Yes Premorbid Mobility Status: Home: no device Bed Transfer: modified independent Toilet Transfer: modified independent Shower/Tub: modified independent Current Mobility Status: Home: no device Community: manual WC Bed Transfer: assisted (50% assistance now) Toilet Transfer: assisted (sometimes she requires assistance to stand but mostly requires help to get cleaned up.) Shower/Tub: assisted (walk-in shower) Car Transfer: assisted Comments: The patient is not walking at the facility very much at all at this point. Current Activity Level: low active Premorbid Activity Level: active Home medical equipment owned: Yes Adaptive Equipment: shower chair (HH shower head in a walk-in shower) Gait Devices: does not use an AD. Social Support: Additional Social Support: Caregivers (RN). Mormon, social, or cultural considerations to be made aware of before starting treatment: No Home Environment Current Home Environment: Setup: single story house (retirement) Entry: no steps First floor: bedroom and full bath Additional comments: facility takes care of her laundry Animals in the home: no Do you feel safe at home? Yes Activities of Daily Living: Upper Body Dressing: needs some assistance with all Lower Body: needs some assistance with all Grooming: needs some assistance with all Toileting: needs some assistance with all Bathing: needs some assistance with all Feeding: needs some assitance with all Instrumental Activities of Daily Livingto be assessed Prior Avocational Participation (community involvement, hobbies, volunteer): Tic-Tac toe; exercise while sitting. Sleep Assessment Average Sleep: unable to provide this information. Preferred sleep position: on side Sleep disturbance: Sleep Disturbance Red Flags: None Comments: Barriers to Care: Chronicity or severity of impairments, Transportation, Cognition and Speech Fall risk screening Fallen 2 or more times in the last 12 months: Yes (tripping/shuffling, trying to pick something up off the floor on her own, stood up and lost her balance. 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 5xSTS: 33.67s w/ heavy reliance on pushing off arm rests. TU.24 s w/o use of AD but closely guarding the pt from the therapist. 3mBWT: 5 feet in 27 sec and 25 steps - was scared/anxious and had to stop. 360 deg turn: R: 9.52 s L: 11.12 s >15 steps to complete. Difficulty in directing patient on what to do and did not turn in place, turned more in a wider circular path. 2MWT: 115' - required redirecting to walk around the cone down there The patient presented as having hypersensitivity/allodynia upon light tough at any point along her trunk or UE/LEs, including where the gait belt was touching near her naval region. Patient presents: in transport chair Hand dominance: right Affected side: bilateral Suspected Cognitive/Behavioral: cognitive and behavorial Posture Forward head and Thoracic kyphosis ROM Right LE grossly: Limited Range Comments: Secondary to increased tightness in HS muscle groups Left LE grossly: Limited Range Comments: Secondary to increased tightness in HS muscle groups Trunk grossly: Limited Range Comments: Secondary to axial rigidity Hip Right Hip Muscle Strength: Flexion: 3+ Abduction: 3+ Adduction: 3+ Left Hip Muscle Strength: Flexion: 3+ Abduction: 3+ Adduction: 3+ Knee Right Knee Muscle Strength: Flexion: 3+ Extension: 3+ Left Knee Muscle Strength Flexion: 3+ Extension: 3+ Ankle/Foot Right Ankle/Foot Muscle Strength: DorsiFlexion: 3+ Plantar Flexion: 3+ Left Ankle/Foot Muscle Strength: DorsiFlexion: 3+ Plantar Flexion: 3+ Functional Weakness Noted: trunk, abdominals, lateral hip stability, hip rotators, hip extensors/glutes, quads, hamstrings, PF and DF Neuromotor: LE muscle groups: increased tightness hamstrings and anterior tibialis Neuromotor Coordination: Bradykinesia, Decreased Intra-royal Coordination and Descreased Inter-limb Coordination Neuromotor Tests Light Touch RLE: impaired LLE: impaired Proprioception RLE: imparied LLE: impaired Functional Mobility Transfers: Sit to stand: Insufficient forward flexion, [place] on UE, Increased energy expenditure and Min A Stand to sit: Min A, [place] on UE, Insufficient forward flexion, Decreased eccentric control and Increased energy expenditure Stand/squat pivot: Insufficient forward flexion, [place] on UE and Increased energy expenditure Sitting Balance: Edge of mat sitting: Unsupported Locomotion/Gait Locomotion/Gait: Decreased gait speed, Narrow base of support, Motor fatigue, Decreased amplitude of movement and Shuffling Stance Stability: Decreased L and Decreased R (L>R) Step length: Decreased R and Decreased L (R>L) Foot clearance: Decreased R and Decreased L Device: None Other gait: Shuffled steps, requiring VCs to take bigger steps. Poor weight shifting demonstrated until she started taking bigger steps. Reduced SLS time bilaterally (L>R). (+) bilateral Trendelenburg. Reduced hip flexion and reduced terminal hip extension. Walked in high guard position and would need to be redirected to prevent from perseverating on not being bale to accomplish the task at hand. Stairs: Deferred Treatments: Physical Therapy Exercise Log - 08/03/24 6189 OTHER Precautions/Contraindications Parkinson's disease, unspecified whether dyskinesia present, unspecified whether manifestations fluctuate (HCC). Frequent Falls. Notes Visit 1: 12:30-1:15 Vitals Eval Date: 08/02/2024. POC: 2x4 Neuro Re-Ed (92235) Intervention Initial evaluation w/ education only x45 mins PT Treatment Times Neuro Re-Ed Total Time 45 12:30-1:15 Direct Treatment Time 45 Total Treatment Time 45 Treatment Plan: Frequency of Visits: twice per week Duration: 4 weeks Interventions: Therapeutic Exercise (62724), Neuromuscular Re-Education (87834), Manual Therapy (59364), Therapeutic/ Functional Activities (58568), Gait Training (10360), Self Care (57165), and Canalith Repositioning Treatment (90290) Rehab Potential: good Physical Therapy Neuro Goals: To be completed by discharge: Patient will achieve restricted community ambulator status per gait speed of 0.4-0.8 m/sec using LRAD with mod independence in 4 weeks. Pt will ambulate with minimal imbalance or path deviation in gait over level surfaces for >200 feet including direction changes and turns in 4 weeks. Patient will complete basic transfers (bed mobility, stand, pivot, tub, toilet and car) without upper extremity reliance and modified independence to indicate improved functional mobility and independence in 4 weeks. Patient will complete the 5 times sit to supervisor inventory merchandising 24 seconds or less without the use of her UE for support to indicate improved functional strength and mobility in 4 weeks. Patient will perform the 3m BWT in no longer than 22 seconds and in 20 steps or less indicating her ability to back up when navigating her home environment, especially in the presence of other individuals around her in 4 weeks. Pt will increase strength in bilateral lower extremities to at least 4 /5 in all planes for improved functional mobility in 4 weeks. Patient will improve endurance, as demonstrated by significant improvement in or age-appropriate score on 2-minute walk test achieving a distance of at least 200' in 4 weeks. Patient will perform the 360 deg turn test in 8 seconds or less and in no more than 12 steps to complete, thereby, reducing her risk of falling while turning in 4 weeks. Patient will perform the TUG test in no longer than 16 seconds indicating improved functional mobility., strength, and balance in 4 weeks. Patient will demonstrate improvements noted with her posture during the tragus to wall test achieving a distance of no greater than 12 in 4 weeks. Patient Education provided: Discussed Plan of care frequency and duration, treatment plan, importance of attendance for recovery, team concept, and diagnosis/pathophysiology/progno sis. Pt is in agreement with plan, and all questions at this time were answered. CPT Code 70328 Low 92378 Moderate 13671 High History 0 1-2 3+ Comorbidities: anxiety, chronic pain, hx of neurological disease, and prior surgical history, Personal factors: age, chronicity or severity of the current condition, cognitive limitations, fear avoidance, Sedentary lifestyle, and transportation barriers Examination of body systems (elements of body structures & functions, activity limitations, and/or participation restrictions) 1-2 elements 3+ elements 4+ elements See below clinical impression Clinical Presentation Stable Evolving Unstable As evidenced by degenerative neurological condition, pt report of overall worsening of symptoms over time, and varying levels of awareness/ cognition Clinical Impression: . Shaji Esquivel presents to [facility] outpatient neurological rehab services s/p experiencing multiple falls that led to multiple hospital visits. Upon assessment, patient demonstrates the following impairments: Tremor, bradykinesia, postural instability, axial and appendicular rigidity, increased fall risk, shuffled steps, reduced cognition, reduced strength, coordination, balance, pain, decreased functional endurance, anxiety, reduced dual-tasking/divided attention, inflexibility/ROM of LE and contractures in her UE/hands. The documented impairments result in the following functional limitations: ADLs/IADLs, regular PA/exercise, functional mobility, walking, recreational activities, quality of life, bending, sleep, carrying, and reaching. Potential barriers to rehab include: anxiety and reduced understanding of what she is in skilled PT. The patient would benefit from skilled PT services focused on the above listed impairments and limitations in order to safely progress patient to desired level of function. Plan of care to be revised as needed based on response to therapeutic intervention. Thank you for allowing me to participate in this patient's care. Please contact me with any questions at the above number. This co-signature is to electronically certify that the above named patient, who is under my care, requires skilled therapy services as described in the above treatment plan. I further certify that the services outlined in this plan are skilled and medically necessary. I have reviewed this plan of care for rehabilitation services and recommend that these services continue from 08/03/2024 to 09/28/2024. Julianne Buck, TAYLER State License, [id number] documented in this encounter [facility] 07-29-2024 History of Present illness Narrative Assessment/Plan: Recurrent falls Multiple falls recently may have been due to E. coli UTI, treated with Keflex, completed today. Concern for interaction between Sinemet and olanzapine. She has followed up with psychiatry and reduced olanzapine dose to 5 mg. Shuffling gait with Parkinson's disease increases fall risk. Lives in senior care. Staff tries to have aide assist with walking all the time; patient sometimes up without alerting staff. Difficult to rn transitional and steer walker due to hand/wrist contractions. - She is beginning physical therapy - Wear closed footwear with non-slip bottom - No area rugs - Keep cords clear of walkways - Walk with staff assistance only Subjective: Shaji Esquivel is a 63 y.o. female Chief Complaint Patient presents with Follow-up Staying in wheel chair very limited walking. Patient presents for hospital follow-up. She has had multiple ER visits for fall recently, most recently hospitalized from 07/19-07/25/2024. She was found to have UTI, treated with Keflex. There is also concern that her falls may have been caused by an interaction between Sinemet and olanzapine. It was recommended that she follow-up with her psychiatrist to consider changing medication. She saw Dr. Estrada yesterday. He is lowering olanzapine to 5mg, starting yesterday. He wants to try Nuplazid, but is waiting on prior auth. The following portions of the patient's history were reviewed and updated as appropriate: allergies, current medications, past family history, past medical history, past social history, past surgical history and problem list. Review of Systems Objective: PACU Vitals 07/29/24 1130 BP: 135/76 Pulse: 83 Resp: 17 Temp: 98.3 F (36.8 C) SpO2: 94% Physical Exam Constitutional: Appearance: Normal appearance. She is not ill-appearing, toxic-appearing or diaphoretic. HENT: Head: Normocephalic and atraumatic. Cardiovascular: Rate and Rhythm: Normal rate and regular rhythm. Heart sounds: No murmur heard. No gallop. Pulmonary: Effort: Pulmonary effort is normal. No respiratory distress. Breath sounds: Normal breath sounds. No wheezing. Skin: General: Skin is warm and dry. Coloration: Skin is not jaundiced or pale. Neurological: Mental Status: She is alert. Psychiatric: Mood and Affect: Mood normal. For any new medications prescribed today, patient was educated about indications for the medication, how to take the medication and potential side effects of the medications. Zara Evans DO documented in this encounter [facility] 07-29-2024 Note Assessment/Plan: Recurrent falls Multiple falls recently may have been due to E. coli UTI, treated with Keflex, completed today. Concern for interaction between Sinemet and olanzapine. She has followed up with psychiatry and reduced olanzapine dose to 5 mg. Shuffling gait with Parkinson's disease increases fall risk. Lives in senior care. Staff tries to have aide assist with walking all the time; patient sometimes up without alerting staff. Difficult to rn transitional and steer walker due to hand/wrist contractions. - She is beginning physical therapy - Wear closed footwear with non-slip bottom - No area rugs - Keep cords clear of walkways - Walk with staff assistance only Subjective: Shaji Esquivel is a 63 y.o. female Chief Complaint Patient presents with Follow-up Staying in wheel chair very limited walking. Patient presents for hospital follow-up. She has had multiple ER visits for fall recently, most recently hospitalized from 07/19-07/25/2024. She was found to have UTI, treated with Keflex. There is also concern that her falls may have been caused by an interaction between Sinemet and olanzapine. It was recommended that she follow-up with her psychiatrist to consider changing medication. She saw Dr. Estrada yesterday. He is lowering olanzapine to 5mg, starting yesterday. He wants to try Nuplazid, but is waiting on prior auth. The following portions of the patient's history were reviewed and updated as appropriate: allergies, current medications, past family history, past medical history, past social history, past surgical history and problem list. Review of Systems Objective: PACU Vitals 07/29/24 1130 BP: 135/76 Pulse: 83 Resp: 17 Temp: 98.3 degrees F (36.8 degrees C) SpO2: 94% Physical Exam Constitutional: Appearance: Normal appearance. She is not ill-appearing, toxic-appearing or diaphoretic. HENT: Head: Normocephalic and atraumatic. Cardiovascular: Rate and Rhythm: Normal rate and regular rhythm. Heart sounds: No murmur heard. No gallop. Pulmonary: Effort: Pulmonary effort is normal. No respiratory distress. Breath sounds: Normal breath sounds. No wheezing. Skin: General: Skin is warm and dry. Coloration: Skin is not jaundiced or pale. Neurological: Mental Status: She is alert. Psychiatric: Mood and Affect: Mood normal. For any new medications prescribed today, patient was educated about indications for the medication, how to take the medication and potential side effects of the medications. Zara Evans DO AUTHENTICATED BY ZARA EVANS, ON 08/04/2024 02:35:57 [facility] 07-27-2024 Note Ameena Ruiz PM Patient Name: Shaji Esquivel. . Date of : 1960, 63 y.o.. Gender: female. Subjective: Patient is a pleasant 63-year-old female who presents to clinic for painful right great toe nail. Patient's aide/nurse by her side stating that it is difficult for her to cut her right great toenail. She also admits to numbness and tingling to her toes. No other pedal complaints at this time. Denies fevers, chills, nausea, vomiting, chest pain, shortness of breath, or any other constitutional symptoms. Past Medical History: Diagnosis Date Diabetes (HCC) Disease of thyroid gland High cholesterol Hypertension SAH (subarachnoid hemorrhage) (HCC) 12/04/2023 Past Surgical History: Procedure Laterality Date XR LUMBAR PUNCTURE (DIAGNOSTIC) WITH GAIT ANALYSIS 04/17/2022 XR LUMBAR PUNCTURE (DIAGNOSTIC) WITH GAIT ANALYSIS 04/17/2022 [facility] Social History Socioeconomic History Marital status: Single Tobacco Use Smoking status: Never Smokeless tobacco: Never Vaping Use Vaping status: Never Used Substance and Sexual Activity Alcohol use: Not Currently Drug use: Not Currently Social Drivers of Health Financial Resource Strain: Patient Unable To Answer (07/13/2024) Overall Financial Resource Strain (CARDIA) Difficulty of Paying Living Expenses: Patient unable to answer Food Insecurity: No Food Insecurity (07/19/2024) Hunger Vital Sign Worried About Running Out of Food in the Last Year: Never true Ran Out of Food in the Last Year: Never true Transportation Needs: No Transportation Needs (07/19/2024) PRAPARE - Transportation Lack of Transportation (Medical): No Lack of Transportation (Non-Medical): No Physical Activity: Patient Unable To Answer (07/13/2024) Exercise Vital Sign Days of Exercise per Week: Patient unable to answer Minutes of Exercise per Session: Patient unable to answer Stress: Patient Unable To Answer (07/13/2024) [place] [facility] [employer] - Occupational Stress Questionnaire Feeling of Stress : Patient unable to answer Social Connections: Patient Unable To Answer (07/13/2024) Social Connection and Isolation Panel [NHANES] Frequency of Communication with Friends and Family: Patient unable to answer Frequency of Social Gatherings with Friends and Family: Patient unable to answer Attends [employer] Services: Patient unable to answer Active Member of Clubs or Organizations: Patient unable to answer Attends Club or Organization Meetings: Patient unable to answer Marital Status: Patient unable to answer Housing Stability: Low Risk (07/19/2024) Housing Stability Vital Sign Unable to Pay for Housing in the Last Year: No Number of Times Moved in the Last Year: 0 Homeless in the Last Year: No Physical Examination: BP 133/78 (BP Location: Left arm, Patient Position: Sitting, BP Cuff Size: Adult) Pulse 86 Temp 98.4 degrees F (36.9 degrees C) (Temporal) General Appearance: Alert, cooperative, no distress, appears stated age. Podiatric Exam Vascular: DP and PT pulses are palpable 2/4. Capillary refill time is less than 3 secs to distal digits. Skin temperature is warm to warm from proximal tibial tuberosity to distal digit. Neurological: Gross sensation is intact. Protective sensation is diminished using the [place] Piotr monofilament. Dermatologic: The right great toenail is elongated, thickened, dystrophic and mycotic subungual debris. Remaining toenails are dystrophic. Interdigital spaces are clean dry and intact. Preulcerative lesions noted subfirst and second metatarsal heads bilaterally. Musculoskeletal: Pain on palpation to the right great toenail. Patient is able to wiggle digits. Ankle joint range of motion is intact. Compartments soft and compressible. No calf pain Diagnoses: 1. Onychomycosis 2. Onychodystrophy 3. Diabetic peripheral neuropathy (HCC) 4. Pain due to onychomycosis of toenail of right foot Assessment/Plan: Patient was seen and evaluated. Discussed all clinical findings. Patient has onychomycosis of nails x 1 and onychodystrophy x 9 which require mechanical debridement. Consent was obtained prior to debridement of all toenails on the right and left foot using podiatric nail nippers down to appropriate thickness and length. Patient expressed pain relief following the procedure. Patient qualifies for nail care due to at risk foot criteria based on Q9 Modifier secondary to diabetic peripheral neuropathy. All questions were answered to patient satisfaction. Patient understands to call with any questions or concerns. Follow-up in 3 months for at risk foot care. This note was partially created using voice recognition software and is inherently subject to errors including those of syntax and sound-alike substitutions which may escape proofreading. In such instances, original meaning may be extrapolated by contextual derivation. Elizabeth Kimble, BHUMI, MS (more content not included)... [facility] 07-27-2024 History of Present illness Narrative Images from the original note were not included. Elizabeth Kimble DPM Patient Name: Shaji Esquivel. . Date of : 1960, 63 y.o.. Gender: female. Subjective: Patient is a pleasant 63-year-old female who presents to clinic for painful right great toe nail. Patient's aide/nurse by her side stating that it is difficult for her to cut her right great toenail. She also admits to numbness and tingling to her toes. No other pedal complaints at this time. Denies fevers, chills, nausea, vomiting, chest pain, shortness of breath, or any other constitutional symptoms. Past Medical History: Diagnosis Date Diabetes (HCC) Disease of thyroid gland High cholesterol Hypertension SAH (subarachnoid hemorrhage) (HCC) 12/04/2023 Past Surgical History: Procedure Laterality Date XR LUMBAR PUNCTURE (DIAGNOSTIC) WITH GAIT ANALYSIS 04/17/2022 XR LUMBAR PUNCTURE (DIAGNOSTIC) WITH GAIT ANALYSIS 04/17/2022 [facility] Social History Socioeconomic History Marital status: Single Tobacco Use Smoking status: Never Smokeless tobacco: Never Vaping Use Vaping status: Never Used Substance and Sexual Activity Alcohol use: Not Currently Drug use: Not Currently Social Drivers of Health Financial Resource Strain: Patient Unable To Answer (07/13/2024) Overall Financial Resource Strain (CARDIA) Difficulty of Paying Living Expenses: Patient unable to answer Food Insecurity: No Food Insecurity (07/19/2024) Hunger Vital Sign Worried About Running Out of Food in the Last Year: Never true Ran Out of Food in the Last Year: Never true Transportation Needs: No Transportation Needs (07/19/2024) PRAPARE - Transportation Lack of Transportation (Medical): No Lack of Transportation (Non-Medical): No Physical Activity: Patient Unable To Answer (07/13/2024) Exercise Vital Sign Days of Exercise per Week: Patient unable to answer Minutes of Exercise per Session: Patient unable to answer Stress: Patient Unable To Answer (07/13/2024) [place] [facility] [employer] - Occupational Stress Questionnaire Feeling of Stress : Patient unable to answer Social Connections: Patient Unable To Answer (07/13/2024) Social Connection and Isolation Panel [NHANES] Frequency of Communication with Friends and Family: Patient unable to answer Frequency of Social Gatherings with Friends and Family: Patient unable to answer Attends [employer] Services: Patient unable to answer Active Member of Clubs or Organizations: Patient unable to answer Attends Club or Organization Meetings: Patient unable to answer Marital Status: Patient unable to answer Housing Stability: Low Risk (07/19/2024) Housing Stability Vital Sign Unable to Pay for Housing in the Last Year: No Number of Times Moved in the Last Year: 0 Homeless in the Last Year: No Physical Examination: BP 133/78 (BP Location: Left arm, Patient Position: Sitting, BP Cuff Size: Adult) Pulse 86 Temp 98.4 F (36.9 C) (Temporal) General Appearance: Alert, cooperative, no distress, appears stated age. Podiatric Exam Vascular: DP and PT pulses are palpable 2/4. Capillary refill time is less than 3 secs to distal digits. Skin temperature is warm to warm from proximal tibial tuberosity to distal digit. Neurological: Gross sensation is intact. Protective sensation is diminished using the [place] Piotr monofilament. Dermatologic: The right great toenail is elongated, thickened, dystrophic and mycotic subungual debris. Remaining toenails are dystrophic. Interdigital spaces are clean dry and intact. Preulcerative lesions noted subfirst and second metatarsal heads bilaterally. Musculoskeletal: Pain on palpation to the right great toenail. Patient is able to wiggle digits. Ankle joint range of motion is intact. Compartments soft and compressible. No calf pain Diagnoses: 1. Onychomycosis 2. Onychodystrophy 3. Diabetic peripheral neuropathy (HCC) 4. Pain due to onychomycosis of toenail of right foot Assessment/Plan: Patient was seen and evaluated. Discussed all clinical findings. Patient has onychomycosis of nails x 1 and onychodystrophy x 9 which require mechanical debridement. Consent was obtained prior to debridement of all toenails on the right and left foot using podiatric nail nippers down to appropriate thickness and length. Patient expressed pain relief following the procedure. Patient qualifies for nail care due to at risk foot criteria based on Q9 Modifier secondary to diabetic peripheral neuropathy. All questions were answered to patient satisfaction. Patient understands to call with any questions or concerns. Follow-up in 3 months for at risk foot care. This note was partially created using voice recognition software and is inherently subject to errors including those of syntax and sound-alike substitutions which may escape proofreading. In such instances, original meaning may be extrapolated by contextual derivation. Elizabeth Kimble DPM, MS Podiatric Physician & Surgeon documented in this encounter [facility] 07-23-2024 Note HMS DISCHARGE SUMMAR Y Shaji Esquivel Admitted: 07/19/2024 Discharge Date: 07/25/24 PCP Handoff Recommended Outpatient Testing Follow-up with GI Follow up with psychiatry Results Pending At Discharge None Clinical Summary Shaji Esquivel is a 63 y.o. female patient of Zara Evans DO with history of Parkinson's disease, schizophrenia, HTN, HLD, GERD, NIDDM2, who presented to [facility] on 07/19/2024 with frequent falls. Frequent Fall Parkinson's Disease Balance Disorder Continue Sinemet. Sinemet has known interaction with Zyprexa, which may worsen PD symptoms. Psychiatrist plans to switch her to Nuplazid as outpatient. See below. Fall precautions PT/OT/Care management following Will plan for outpatient PT at discharge Follows with Dr. Ortiz for neurology Encourage patient to use wheelchair as needed to help avoid falls and for general overall safety. Encourage patient to use helmet when out of bed to avoid head injury in the event of any recurrent fall. Schizophrenia Continue Zyprexa and Remeron Reached out to Dr. Sabillon at [facility] due to interaction with Sinemet and Zyprexa potentially worsening of Parkinson's symptoms. He recommends changing to Nuplazid, but it will probably require prior authorization. Follow-up with Dr Sabillon at discharge E coli UTI UA on admission showed small LE, 14 WBCs/hpf, many bacteria Culture shows E coli, complete Keflex course Abnormal CT abdomen Lymphadenopathy of mesentery Constipation Per CT abdomen: Nonspecific edematous appearance of the duodenum in the jejunal loops in the upper abdomen with no convincing evidence of obstruction, perforation, or abscess. Correlation with endoscopic evaluation and consideration for upper GI series with small-bowel follow-through is recommended for further evaluation of the fairly extensive proximal small-bowel abnormality. here is a mildly edematous appearance of the pancreas for which correlation with serum lipase levels is recommended. No free fluid or fluid collections are identified. Very mild pancreatitis could have this appearance. Lipase normal As above, patient is a poor historian; does not identify any specific GI complaints Outpatient GI evaluation Continue [employer] bowel regimen Sternal Fracture CT with evidence of healing subacute, non-displaced sternal fracture Fall precautions PRN tylenol Outpatient therapies at discharge Hypothyroidism Levothyroxine TSH and fT4 within normal reference range this admission GERD Pantoprazole Maalox QID AC/HS HTN Norvasc HLD Atorvastatin NIDDM2 Resume home glipizide, empagliflozin, Metformin Discharge Medications Discharge Medications New Medications Details cephALEXin 250 MG capsule Commonly known as: KEFLEX Take 1 (one) capsule (250 mg total) by mouth every 6 (six) hours . Quantity: 20 capsule Modified Medications Details glipiZIDE 10 MG tablet Commonly known as: GLUCOTROL What changed: Another medication with the same name was removed. Continue taking this medication, and follow the directions you see here. Take 1 (one) tablet (10 mg total) by mouth 2 (two) times a day before meals . Medications To Continue Details acetaminophen 500 MG tablet Commonly known as: TYLENOL Take 1 (one) tablet (500 mg total) by mouth every 6 (six) hours as needed for pain . aluminum-magnesium hydroxide-simethicone 200-200-20 mg/5 mL Susp Commonly known as: MAALOX PLUS Take 30 mL by mouth 4 (four) times a day before meals and nightly . amLODIPine 2.5 MG tablet Commonly known as: NORVASC Take 1 (one) tablet (2.5 mg total) by mouth daily . atorvastatin 10 MG tablet Commonly known as: LIPITOR Take 1 (one) tablet (10 mg total) by mouth every night at bedtime . benztropine 1 MG tablet Commonly known as: COGENTIN Take 1 (one) tablet (1 mg total) by mouth 2 (two) times a day . carbidopa-levodopa 25-100 mg per tablet Commonly known as: SINEMET Take 2 (two) tablets by mouth 3 (three) times a day . Quantity: 540 tablet DENTA 5000 PLUS DENT Use to brush teeth once a day as directed . docusate sodium 100 MG capsule Commonly known as: COLACE Take 1 (one) capsule (100 mg total) by mouth 2 (two) times a day . empagliflozin 25 mg Tab Take 1 (one) tablet (25 mg total) by mouth daily . estradioL 0.01 % (0.1 mg/gram) vaginal cream Commonly known as: ESTRACE Insert 2 (two) g into the vagina daily . GLUCERNA ORAL Take 1 Can by mouth 4 (four) times a day . levothyroxine 75 MCG tablet Commonly known as: SYNTHROID, LEVOTHROID Take 1 (one) tablet (75 mcg total) by mouth every morning At 6 AM . melatonin 3 mg Tab Take 1 (one) tablet (3 mg total) by mouth nightly . metFORMIN 500 MG 24 hr tablet Commonly known as: GLUCOPHAGE-XR Take 2 (two) tablets (1,000 mg total) by mouth 2 (two) times a day . mirtazapine 30 MG disintegrating tablet Com (more content not included)... [facility] 07-23-2024 Note [facility] PROGRESS NOTE Assessment and Plan Shaji Esquivel is a 63 y.o. female patient of Zara Evans DO with history of Parkinson's disease, schizophrenia, HTN, HLD, GERD, NIDDM2, who presented to [facility] on 07/19/2024 with frequent falls. Frequent Fall Parkinson's Disease Balance Disorder Continue Sinemet. Sinemet has known interaction with Zyprexa, which may worsen PD symptoms. Psychiatrist plans to switch her to Nuplazid as outpatient. See below. Fall precautions PT/OT/Care management following Will plan for outpatient PT at discharge Follows with Dr. Ortiz for neurology Encourage patient to use wheelchair as needed to help avoid falls and for general overall safety. Encourage patient to use helmet when out of bed to avoid head injury in the event of any recurrent fall. Schizophrenia Continue Zyprexa and Remeron Reached out to Dr. Sabillon at [facility] due to interaction with Sinemet and Zyprexa potentially worsening of Parkinson's symptoms. He recommends changing to Nuplazid, but it will probably require prior authorization. Call his office prior discharge to schedule appointment soon for him to make the changes. E coli UTI UA on admission showed small LE, 14 WBCs/hpf, many bacteria Culture shows E coli, complete Keflex course Abnormal CT abdomen Lymphadenopathy of mesentery Constipation Per CT abdomen: Nonspecific edematous appearance of the duodenum in the jejunal loops in the upper abdomen with no convincing evidence of obstruction, perforation, or abscess. Correlation with endoscopic evaluation and consideration for upper GI series with small-bowel follow-through is recommended for further evaluation of the fairly extensive proximal small-bowel abnormality. here is a mildly edematous appearance of the pancreas for which correlation with serum lipase levels is recommended. No free fluid or fluid collections are identified. Very mild pancreatitis could have this appearance. Lipase normal As above, patient is a poor historian; does not identify any specific GI complaints Will most likely plan for outpatient GI evaluation Continue bowel regimen Sternal Fracture CT with evidence of healing subacute, non-displaced sternal fracture Fall precautions PT/OT PRN tylenol Hypothyroidism Levothyroxine GERD Pantoprazole Maalox QID AC/HS HTN Norvasc HLD Atorvastatin NIDDM2 Hold Jardiance and glipizide while in hospital Continue metformin and sitagliptin Disposition Medically stable for discharge date: 07/23 Patient requires continued hospitalization due to: awaiting acceptance back to senior care Discharge location: return to senior care Quality Measures DVT prophylaxis: IPCs Contreras catheter: absent Subjective No acute events noted overnight. Afebrile. Saturating well on room air. Denies complaints or needs. Review of Systems All relevant systems have been reviewed and are negative except as noted in HPI or below Objective BP (!) 150/79 Pulse 75 Temp 98.2 degrees F (36.8 degrees C) (Oral) Resp 16 Ht 5' 3 Wt 72.6 kg (160 lb) SpO2 (!) 89% BMI 28.34 kg/m Physical Examination General Appearance: alert; well appearing; in no acute distress HEENT: Head- normocephalic; Eyes- EOMI, sclera anicteric; Ears- hearing intact; Nose- no nasal discharge; Throat- mucous membranes moist Cardiovascular: regular rate and rhythm Respiratory: lungs clear to auscultation; without wheezes, rales or rhonchi; on room air Abdomen: soft, non-tender, non-distended Neurological: normal speech; no focal findings or movement disorder noted Musculoskeletal: no significant deformity or tenderness to palpation Skin: normal coloration; no obvious rashes, lesions or skin breakdown Psych: normal mood and affect Results/Medications Reviewed 07/23/2024 11:53 AM Laboratory, Microbiology, Radiology, Cardiology, Medications, and Transcriptions AUTHENTICATED BY SHELLEY MALDONADO, ON 07/23/2024 11:54:[address] [facility] 07-22-2024 Note [facility] PROGRESS NOTE Assessment and Plan Shaji Esquivle is a 63 y.o. female patient of Zara Evans DO with history of Parkinson's disease, schizophrenia, HTN, HLD, GERD, NIDDM2, who presented to [facility] on 07/19/2024 with frequent falls. Frequent Fall Parkinson's Disease Balance Disorder Continue Sinemet. Sinemet has known interaction with Zyprexa, which may worsen PD symptoms. Psychiatrist plans to switch her to Nuplazid as outpatient. See below. Fall precautions PT/OT/Care management following Will plan for outpatient PT at discharge Follows with Dr. Ortiz for neurology Encourage patient to use wheelchair as needed to help avoid falls and for general overall safety. Encourage patient to use helmet when out of bed to avoid head injury in the event of any recurrent fall. Schizophrenia Continue Zyprexa and Remeliudn Reached out to Dr. Sabillon at [facility] due to interaction with Sinemet and Zyprexa potentially worsening of Parkinson's symptoms. He recommends changing to Nuplazid, but it will probably require prior authorization. Call his office prior discharge to schedule appointment soon for him to make the changes. E coli UTI UA on admission showed small LE, 14 WBCs/hpf, many bacteria Culture shows E coli, complete Keflex course Abnormal CT abdomen Lymphadenopathy of mesentery Constipation Per CT abdomen: Nonspecific edematous appearance of the duodenum in the jejunal loops in the upper abdomen with no convincing evidence of obstruction, perforation, or abscess. Correlation with endoscopic evaluation and consideration for upper GI series with small-bowel follow-through is recommended for further evaluation of the fairly extensive proximal small-bowel abnormality. here is a mildly edematous appearance of the pancreas for which correlation with serum lipase levels is recommended. No free fluid or fluid collections are identified. Very mild pancreatitis could have this appearance. Lipase normal As above, patient is a poor historian; does not identify any specific GI complaints Will most likely plan for outpatient GI evaluation Continue bowel regimen Sternal Fracture CT with evidence of healing subacute, non-displaced sternal fracture Fall precautions PT/OT PRN tylenol Hypothyroidism Levothyroxine GERD Pantoprazole Maalox QID AC/HS HTN Norvasc HLD Atorvastatin NIDDM2 Hold Jardiance and glipizide while in hospital Continue metformin and sitagliptin Subjective No acute events noted overnight. Afebrile. Saturating well on room air. Denies complaints or needs. Review of Systems All relevant systems have been reviewed and are negative except as noted in HPI or below Objective BP 136/81 Pulse 70 Temp 98.5 degrees F (36.9 degrees C) (Oral) Resp 16 Ht 5' 3 Wt 72.6 kg (160 lb) SpO2 92% BMI 28.34 kg/m Physical Examination General Appearance: alert; well appearing; in no acute distress HEENT: Head- normocephalic; Eyes- EOMI, sclera anicteric; Ears- hearing intact; Nose- no nasal discharge; Throat- mucous membranes moist Cardiovascular: regular rate and rhythm Respiratory: lungs clear to auscultation; without wheezes, rales or rhonchi; on room air Abdomen: soft, non-tender, non-distended Neurological: normal speech; no focal findings or movement disorder noted Musculoskeletal: no significant deformity or tenderness to palpation Skin: normal coloration; no obvious rashes, lesions or skin breakdown Psych: normal mood and affect Results/Medications Reviewed 07/22/2024 12:12 PM Laboratory, Microbiology, Radiology, Cardiology, Medications, and Transcriptions AUTHENTICATED BY SHELLEY MALDONADO, ON 07/22/2024 12:51:[address] [facility] 07-21-2024 Note [facility] PROGRESS NOTE Assessment and Plan Shaji Esquivel is a 63 y.o. female patient of Zara Evans DO with history of Parkinson's disease, schizophrenia, HTN, HLD, GERD, NIDDM2, who presented to [facility] on 07/19/2024 with frequent falls. Frequent Fall Parkinson's Disease Balance Disorder Continue Sinemet. Sinemet has known interaction with Zyprexa, which may worsen PD symptoms. Psychiatrist plans to switch her to Nuplazid as outpatient. See below. Fall precautions PT/OT Care management Follows with Dr. Ortiz for neurology Schizophrenia Continue Zyprexa and Remeron Reached out to Dr. Sabillon at [facility] due to interaction with Sinemet and Zyprexa potentially worsening of Parkinson's symptoms. He recommends changing to Nuplazid, but it will probably require prior authorization. Call his office prior discharge to schedule appointment soon for him to make the changes. Abnormal urinalysis UA on admission showed small LE, 14 WBCs/hpf, many bacteria Patient is poor historian so unclear if she is symptomatic Will send culture Abnormal CT abdomen Lymphadenopathy of mesentery Constipation Per CT abdomen: Nonspecific edematous appearance of the duodenum in the jejunal loops in the upper abdomen with no convincing evidence of obstruction, perforation, or abscess. Correlation with endoscopic evaluation and consideration for upper GI series with small-bowel follow-through is recommended for further evaluation of the fairly extensive proximal small-bowel abnormality. here is a mildly edematous appearance of the pancreas for which correlation with serum lipase levels is recommended. No free fluid or fluid collections are identified. Very mild pancreatitis could have this appearance. Lipase normal As above, patient is a poor historian; does not identify any specific GI complaints Will most likely plan for outpatient GI evaluation Continue bowel regimen Sternal Fracture CT with evidence of healing subacute, non-displaced sternal fracture Fall precautions PT/OT PRN tylenol Hypothyroidism Levothyroxine GERD Pantoprazole Maalox QID AC/HS HTN Norvasc HLD Atorvastatin NIDDM2 Hold Jardiance and glipizide while in hospital Continue metformin and sitagliptin Code Status: Full Code Disposition Medically stable for discharge date: TBD Patient requires continued hospitalization due to: therapy evals Discharge location: likely return to senior care Quality Measures DVT prophylaxis: IPCs Contreras catheter: absent Subjective No acute events noted overnight. Afebrile. Saturating well on room air. Patient is a poor historian, but does not appear to be in any acute distress. Review of Systems All relevant systems have been reviewed and are negative except as noted in HPI or below Objective BP 121/72 Pulse 74 Temp 97.7 degrees F (36.5 degrees C) (Axillary) Resp 18 Ht 5' 3 Wt 72.6 kg (160 lb) SpO2 90% BMI 28.34 kg/m Physical Examination General Appearance: alert; well appearing; in no acute distress HEENT: Head- normocephalic; Eyes- EOMI, sclera anicteric; Ears- hearing intact; Nose- no nasal discharge; Throat- mucous membranes moist Cardiovascular: regular rate and rhythm Respiratory: lungs clear to auscultation; without wheezes, rales or rhonchi; on room air Abdomen: soft, non-tender, non-distended; positive bowel sounds Neurological: slow speech; no focal findings or movement disorder noted Musculoskeletal: no significant deformity or tenderness to palpation Skin: normal coloration; no obvious rashes, lesions or skin breakdown Psych: flat affect Results/Medications Reviewed 07/21/2024 11:29 AM Laboratory, Microbiology, Radiology, Cardiology, Medications, and Transcriptions AUTHENTICATED BY SHELLEY MALDONADO, ON 07/21/2024 11:29:[address] [facility] 07-20-2024 Note [facility]MS PROGRESS NOTE Assessment and Plan Shaji Esquivel is a 63 y.o. female patient of Zara Evans DO with history of Parkinson's disease, schizophrenia, HTN, HLD, GERD, NIDDM2, who presented to [facility] on 07/19/2024 with frequent falls. Frequent Fall Parkinson's Disease Balance Disorder Continue Sinemet. Sinemet has known interaction with Zyprexa, which may worsen PD symptoms. Psychiatrist plans to switch her to Nuplazid as outpatient. See below. Fall precautions PT/OT Care management Follows with Dr. Ortiz for neurology Schizophrenia Continue Zyprexa and Remeron Reached out to Dr. Sabillon at [facility] due to interaction with Sinemet and Zyprexa potentially worsening of Parkinson's symptoms. He recommends changing to Nuplazid, but it will probably require prior authorization. Call his office prior discharge to schedule appointment soon for him to make the changes. Abnormal urinalysis UA on admission showed small LE, 14 WBCs/hpf, many bacteria Patient is poor historian so unclear if she is symptomatic Will send culture Abnormal CT abdomen Lymphadenopathy of mesentery Constipation Per CT abdomen: Nonspecific edematous appearance of the duodenum in the jejunal loops in the upper abdomen with no convincing evidence of obstruction, perforation, or abscess. Correlation with endoscopic evaluation and consideration for upper GI series with small-bowel follow-through is recommended for further evaluation of the fairly extensive proximal small-bowel abnormality. here is a mildly edematous appearance of the pancreas for which correlation with serum lipase levels is recommended. No free fluid or fluid collections are identified. Very mild pancreatitis could have this appearance. Lipase normal As above, patient is a poor historian; does not identify any specific GI complaints Will most likely plan for outpatient GI evaluation Continue bowel regimen Sternal Fracture CT with evidence of healing subacute, non-displaced sternal fracture Fall precautions PT/OT PRN tylenol Hypothyroidism Levothyroxine GERD Pantoprazole Maalox QID AC/HS HTN Norvasc HLD Atorvastatin NIDDM2 Hold Jardiance and glipizide while in hospital Continue metformin and sitagliptin Code Status: Full Code Disposition Medically stable for discharge date: TBD Patient requires continued hospitalization due to: therapy evals Discharge location: likely return to senior care Quality Measures DVT prophylaxis: IPCs Contreras catheter: absent Subjective No acute events noted overnight. Afebrile. Saturating well on room air. Patient is a poor historian, but does not appear to be in any acute distress. Review of Systems All relevant systems have been reviewed and are negative except as noted in HPI or below Objective BP 134/70 Pulse 95 Temp 97.7 degrees F (36.5 degrees C) (Axillary) Resp 16 Ht 5' 3 Wt 72.6 kg (160 lb) SpO2 91% BMI 28.34 kg/m Physical Examination General Appearance: alert; well appearing; in no acute distress HEENT: Head- normocephalic; Eyes- EOMI, sclera anicteric; Ears- hearing intact; Nose- no nasal discharge; Throat- mucous membranes moist Cardiovascular: regular rate and rhythm Respiratory: lungs clear to auscultation; without wheezes, rales or rhonchi; on room air Abdomen: soft, non-tender, non-distended; positive bowel sounds Neurological: slow speech; no focal findings or movement disorder noted Musculoskeletal: no significant deformity or tenderness to palpation Skin: normal coloration; no obvious rashes, lesions or skin breakdown Psych: flat affect Results/Medications Reviewed 07/20/2024 11:17 AM Laboratory, Microbiology, Radiology, Cardiology, Medications, and Transcriptions AUTHENTICATED BY SHELLEY MALDONADO, ON 07/20/2024 11:24:[address] [facility] 07-19-2024 Note HMS HISTORY AND PHYS ICAL -- [facility] Patient Name: Shaji Esquivel : 1960 MR #: [id number] Admit Date: 07/19/2024 Physicians: Zara Evans DO (Family); No ref. provider found (Referring) Shjai Esquivel is a 63 y.o. female patient of Zara Evans DO with history of Parkinson's disease, schizophrenia, HTN, HLD, GERD, NIDDM2, who presented to [facility] on 07/19/2024 with frequent falls. Frequent Fall Parkinson's Disease Balance Disorder Continue Sinemet. Sinemet has known interaction with Zyprexa, which may worsen PD symptoms. Psychiatrist plans to switch her to Nuplazid as outpatient. See below. Fall precautions PT/OT Care management Follows with Dr. Ortiz for neurology Schizophrenia Continue Zyprexa and Remeron Reached out to Dr. Sabillon at [facility] due to interaction with Sinemet and Zyprexa potentially worsening of Parkinson's symptoms. He recommends changing to Nuplazid, but it will probably require prior authorization. Call his office prior discharge to schedule appointment soon for him to make the changes. Sternal Fracture CT with evidence of healing subacute, non-displaced sternal fracture Fall precautions PT/OT Hypothyroidism Levothyroxine GERD Pantoprazole Maalox QID AC/HS HTN Norvasc HLD Atorvastatin NIDDM2 Hold Jardiance and glipizide while in hospital Continue metformin and sitagliptin Residence prior to admission: house or apartment Was patient transferred from outlying hospital or ED no Quality Measures DVT Prophylaxis: SCDs and ambulation only Contreras Catheter: absent Medication Reconciliation: Verified Admitted with these risk variables:Chronic Fatigue/Reduced Mobility . Please see assessment and plan for further details. Estimated Date of Discharge greater than 2 midnights Code Status Full Code; code status verified on 07/19/2024 with patient (capacity intact) Chief Complaint Falls History of Present Illness Shaji Esquivel is a 63 y.o. female patient of Zara Evans DO with history of Parkinson's disease, schizophrenia, HTN, HLD, GERD, NIDDM2, who presented to [facility] on 07/19/2024 with frequent falls. Progressively worsening over the past 2 weeks. Nothing seems to make it better or worse. Assisted living is unable to take her back at this point. No fever, chills, cough, dysuria. Past Medical History Past Medical History: Diagnosis Date Diabetes (HCC) Disease of thyroid gland High cholesterol Hypertension SAH (subarachnoid hemorrhage) (HCC) 12/04/2023 Past Surgical History Past Surgical History: Procedure Laterality Date XR LUMBAR PUNCTURE (DIAGNOSTIC) WITH GAIT ANALYSIS 04/17/2022 XR LUMBAR PUNCTURE (DIAGNOSTIC) WITH GAIT ANALYSIS 04/17/2022 DIAGNOSTICS Family History History reviewed. No pertinent family history. Social History Social History Tobacco Use Smoking Status Never Smokeless Tobacco Never Social History Substance and Sexual Activity Alcohol Use Not Currently Social History Substance and Sexual Activity Drug Use Not Currently Allergy Information I have reviewed the patient's allergies. Patient has no known allergies. Home Medications Home medications were reviewed. Review Of Systems All relevant systems have been reviewed and are negative except as noted in HPI or below Physical Examination BP 125/60 Pulse 73 Temp 97.9 degrees F (36.6 degrees C) (Oral) Resp 12 Ht 5' 3 Wt 72.6 kg (160 lb) SpO2 94% BMI 28.34 kg/m General Appearance: alert; chronically ill appearing; in no acute distress HEENT: Head- normocephalic; Eyes- EOMI, sclera anicteric; Throat- mucous membranes moist Cardiovascular: regular rate and rhythm; normal S1, S2; no murmurs, rubs, clicks or gallops; peripheral edema absent Respiratory: lungs clear to auscultation; without wheezes, rales or rhonchi; on room air Abdomen: soft, non-tender, non-distended Neurological: oriented x 3; normal speech; no focal findings or movement disorder noted Musculoskeletal: no significant deformity or tenderness to palpation Skin: normal coloration Psych: normal mood and affect AUTHENTICATED BY KIRILL CRANDALL ON 07/19/2024 10:34:[address] [facility] 07-15-2024 Evaluation + Plan note Associated Problem(s): Primary osteoarthritis involving multiple joints Voltaren gel 4 times daily to painful joints including bilateral hips and knees. [facility] 07-15-2024 Miscellaneous Notes Associated Problem(s): Primary osteoarthritis involving multiple joints Voltaren gel 4 times daily to painful joints including bilateral hips and knees. Associated Problem(s): Recurrent falls Mechanical fall 07/09/2024 when stepping up into a van. She suffered contusions to her right hip and right knee, but no fractures per x-rays in ER. Continue Voltaren gel to painful areas. Shuffling gait with Parkinson's disease increases fall risk. Lives in senior care. Staff tries to have aide assist with walking all the time; patient sometimes up without alerting staff. Difficult to rn transitional and steer walker due to hand/wrist contractions. - Wear closed footwear with non-slip bottom - No area rugs - Keep cords clear of walkways - Walk with staff assistance documented in this encounter [facility] 07-15-2024 Evaluation + Plan note Associated Problem(s): Recurrent falls Mechanical fall 07/09/2024 when stepping up into a van. She suffered contusions to her right hip and right knee, but no fractures per x-rays in ER. Continue Voltaren gel to painful areas. Shuffling gait with Parkinson's disease increases fall risk. Lives in senior care. Staff tries to have aide assist with walking all the time; patient sometimes up without alerting staff. Difficult to rn transitional and steer walker due to hand/wrist contractions. - Wear closed footwear with non-slip bottom - No area rugs - Keep cords clear of walkways - Walk with staff assistance [facility] 07-13-2024 Note Assessment/Plan: Recurrent falls Mechanical fall 07/09/2024 when stepping up into a van. She suffered contusions to her right hip and right knee, but no fractures per x-rays in ER. Continue Voltaren gel to painful areas. Shuffling gait with Parkinson's disease increases fall risk. Lives in senior care. Staff tries to have aide assist with walking all the time; patient sometimes up without alerting staff. Difficult to rn transitional and steer walker due to hand/wrist contractions. - Wear closed footwear with non-slip bottom - No area rugs - Keep cords clear of walkways - Walk with staff assistance Primary osteoarthritis involving multiple joints Voltaren gel 4 times daily to painful joints including bilateral hips and knees. Subjective: Shaji Esquivel is a 63 y.o. female Chief Complaint Patient presents with Fall Fall on Friday, no fracture per ED imaging. Complaining of left hip pain. Patient presents for acute visit for fall. Patient is a senior care resident and presents with nursing staff. Patient presented to ER 4 days ago for fall. She had been stepping up into a van, lost her balance and fell onto her right hip and knee. In ER bilateral hip and right knee x-rays were negative for fracture. She was found to have contusions on her right hip and right knee. She was discharged with topical Voltaren gel for the pain. Staff reports in the past couple of days patient is been complaining of left hip pain. We reviewed the x-rays which showed both right and left hip with no fracture. Staff reports this is sometimes an attention seeking behavior they noticed in this patient. Today patient denies left hip pain but reports having left lower quadrant discomfort, which is common for her when she needs to have a bowel movement. Per staff she has not had a BM in 2 days. Patient does not appear uncomfortable, and has her usual pleasant demeanor. The following portions of the patient's history were reviewed and updated as appropriate: allergies, current medications, past family history, past medical history, past social history, past surgical history and problem list. Review of Systems Objective: PACU Vitals 07/13/24 0953 BP: 136/83 Pulse: Resp: Temp: SpO2: Physical Exam Constitutional: General: She is not in acute distress. Appearance: Normal appearance. She is not ill-appearing, toxic-appearing or diaphoretic. HENT: Head: Normocephalic and atraumatic. Cardiovascular: Rate and Rhythm: Normal rate and regular rhythm. Heart sounds: Normal heart sounds. No murmur heard. No gallop. Pulmonary: Effort: Pulmonary effort is normal. No respiratory distress. Breath sounds: Normal breath sounds. No wheezing or rales. Abdominal: Comments: Left lower quadrant tenderness is distractible Skin: General: Skin is warm and dry. Coloration: Skin is not jaundiced or pale. Neurological: Mental Status: She is alert. Psychiatric: Mood and Affect: Mood normal. For any new medications prescribed today, patient was educated about indications for the medication, how to take the medication and potential side effects of the medications. My ongoing relationship with Shaji Esquivel requires continued responsibility and cognitive effort of being the focal point for all services related to chronic condition(s). Zara Evans DO AUTHENTICATED BY ZARA EVANS, ON 07/15/2024 07:40:58 [facility] 07-13-2024 History of Present illness Narrative Assessment/Plan: Recurrent falls Mechanical fall 07/09/2024 when stepping up into a van. She suffered contusions to her right hip and right knee, but no fractures per x-rays in ER. Continue Voltaren gel to painful areas. Shuffling gait with Parkinson's disease increases fall risk. Lives in senior care. Staff tries to have aide assist with walking all the time; patient sometimes up without alerting staff. Difficult to rn transitional and steer walker due to hand/wrist contractions. - Wear closed footwear with non-slip bottom - No area rugs - Keep cords clear of walkways - Walk with staff assistance Primary osteoarthritis involving multiple joints Voltaren gel 4 times daily to painful joints including bilateral hips and knees. Subjective: Shaji Esquivel is a 63 y.o. female Chief Complaint Patient presents with Fall Fall on Friday, no fracture per ED imaging. Complaining of left hip pain. Patient presents for acute visit for fall. Patient is a senior care resident and presents with nursing staff. Patient presented to ER 4 days ago for fall. She had been stepping up into a van, lost her balance and fell onto her right hip and knee. In ER bilateral hip and right knee x-rays were negative for fracture. She was found to have contusions on her right hip and right knee. She was discharged with topical Voltaren gel for the pain. Staff reports in the past couple of days patient is been complaining of left hip pain. We reviewed the x-rays which showed both right and left hip with no fracture. Staff reports this is sometimes an attention seeking behavior they noticed in this patient. Today patient denies left hip pain but reports having left lower quadrant discomfort, which is common for her when she needs to have a bowel movement. Per staff she has not had a BM in 2 days. Patient does not appear uncomfortable, and has her usual pleasant demeanor. The following portions of the patient's history were reviewed and updated as appropriate: allergies, current medications, past family history, past medical history, past social history, past surgical history and problem list. Review of Systems Objective: PACU Vitals 07/13/24 0953 BP: 136/83 Pulse: Resp: Temp: SpO2: Physical Exam Constitutional: General: She is not in acute distress. Appearance: Normal appearance. She is not ill-appearing, toxic-appearing or diaphoretic. HENT: Head: Normocephalic and atraumatic. Cardiovascular: Rate and Rhythm: Normal rate and regular rhythm. Heart sounds: Normal heart sounds. No murmur heard. No gallop. Pulmonary: Effort: Pulmonary effort is normal. No respiratory distress. Breath sounds: Normal breath sounds. No wheezing or rales. Abdominal: Comments: Left lower quadrant tenderness is distractible Skin: General: Skin is warm and dry. Coloration: Skin is not jaundiced or pale. Neurological: Mental Status: She is alert. Psychiatric: Mood and Affect: Mood normal. For any new medications prescribed today, patient was educated about indications for the medication, how to take the medication and potential side effects of the medications. My ongoing relationship with Shaji Esquivel requires continued responsibility and cognitive effort of being the focal point for all services related to chronic condition(s). Zara Evans DO documented in this encounter [facility] 07-09-2024 Emergency department Note Images from the original note were not included. Emergency Department Provider Note MEDICAL DECISION MAKING: Medical Decision Making 07/09/24 Chief Complaint Patient presents with Knee Injury Patient went to step into the van and fell, when she went to stand, staff report she would not put any weight on R leg. C/o R knee pain, no LOC History/Exam limitations: none. Additional history was obtained from patient. HPI: Shaji Esquivel is a 63 y.o. presents with right knee pain after fall. Pain is localized to the right anterior knee. No loss consciousness. No neck or back pain. Past medical records, Past medical history and surgical history reviewed and as documented. History reviewed and as noted. past medical records reviewed. Active Ambulatory Problems Diagnosis Date Noted Hypertension 04/21/2023 Disease of thyroid gland 04/21/2023 GERD (gastroesophageal reflux disease) 04/21/2023 Chronic kidney disease 04/21/2023 Parkinson disease (Multi) 04/21/2023 Encounter for screening mammogram for malignant neoplasm of breast 04/21/2023 Acquired hypothyroidism 04/21/2023 Schizophrenia 04/21/2023 Gait abnormality 12/26/2023 Balance disorder 12/26/2023 Resolved Ambulatory Problems Diagnosis Date Noted No Resolved Ambulatory Problems Past Medical History: Diagnosis Date Anemia Diabetes mellitus (Multi) Mental disability History reviewed. No pertinent surgical history. Family History Family history unknown: Yes Social History Tobacco Use Smoking status: Never Smokeless tobacco: Never Vaping Use Vaping status: Never Used Substance Use Topics Alcohol use: Never Drug use: Never No Known Allergies Unless otherwise stated in this report the patient's positive and negative responses for review of systems for constitutional, eyes, ENT, cardiovascular, respiratory, gastrointestinal, neurological, genitourinary, musculoskeletal, and integument systems and related systems to the presenting problem are either as stated in the HPI or were not pertinent or were negative for the symptoms and/or complaints related to the presenting medical problem. PHYSICAL EXAM Triage/nursing notes and vital signs reviewed as available and as noted Vitals: 07/09/24 1100 BP: 149/79 Pulse: 83 Resp: 18 Temp: 36.9 C (98.5 F) TempSrc: Temporal SpO2: 96% Constitutional: Appearance: Patient not ill-appearing or toxic-appearing. HENT: Head: Atraumatic. Mouth/Throat: Mouth: Mucous membranes are moist. Pharynx: Oropharynx is clear. No pharyngeal swelling. Neck: No Obvious JVD. Trachea midline. No neck swelling. Eyes: Normal Ocular tracking Cardiovascular: Rate and Rhythm: Normal rate and regular rhythm. Pulses: Normal pulses. Heart sounds: No murmur heard. Pulmonary: Effort: Pulmonary effort is normal. Breath sounds: Normal breath sounds. Abdominal: General: Bowel sounds are normal. Palpations: Abdomen is soft. Tenderness: There is no abdominal tenderness. There is no guarding or rebound. Musculoskeletal: Cervical back: Neck supple. Right lower leg: No tenderness. No edema. Diffuse soft tissue tenderness noted of the elbow. Mild joint ecchymosis and swelling. No deformity. No crepitus. Range of motion grossly intact to flexion and extension. No bony tenderness, or deformity of the joint above or below. Neurovascular is intact. Left lower leg: No tenderness. No edema. Skin: General: Skin is warm and dry. Capillary Refill: Capillary refill takes less than 2 seconds. Neurological: General: No focal deficit present. Mental Status: Patient is alert. Appropriate conversant Sensory: Gross Sensation is intact. Motor: Gross Motor function is intact symmetrically Psychiatric: Mood and Affect: Mood normal. Cooperative, no apparent risk to self or others ED COURSE Current subjective and objective findings, differential diagnosis includes but not limited to knee fracture, contusion, sprain/strain Work-up performed to evaluate for differential diagnosis as clinically indicated Orders Placed This Encounter Procedures XR knee right 1-2 views XR hip right with pelvis when performed 2 or 3 views Labs and imaging reviewed by me and note Labs Reviewed - No data to display XR knee right 1-2 views Final Result No acute abnormality in the right knee MACRO: None Signed by: Alexys Moran 07/09/2024 12:15 PM Dictation workstation: [id number] XR hip right with pelvis when performed 2 or 3 views Final Result No acute fracture seen in the right hip. If there is persistent clinical concern CT can be performed for further evaluation MACRO: None Signed by: Alexys Moran 07/09/2024 12:14 PM Dictation workstation: [id number] Pt course which Intervention and treatment included : Procedure Procedures Medications acetaminophen (Tylenol) tablet 975 mg (has no administration in time range) oxyCODONE (Roxicodone) immediate release tablet 5 mg (has no administration in time range) Diagnoses as of 07/09/24 1220 Fall, initial encounter Contusion of right knee and lower leg, initial encounter DISPOSITION: Patient is stable for discharge. Based upon my history, physical exam, evaluation and judgement regarding the aforementioned differentials, at the time of this assessment, I do not see evidence to support the presence of any life, neurologic, or limb threatening pathology in my considered differentials. Alternate non life threatening pathology has been considered, and has been ruled out based upon the findings of my evaluation. While there may be remaining pathology considered within the differential, this is not life threatening, not limb threatening, and does not warrant further emergent evaluation or treatment at this time. Shared decision making made with the patient as applicable. It is my judgement that further treatment and evaluation can safely proceed in the outpatient setting. Shared decision making was utilized to arrive at all clinical decisions. At this time I do not see evidence of an emergency medical condition based upon my medical screening examination. All imaging and laboratory results were discussed with the patient in detail including acute as well as incidental findings. I discussed the differential, results and discharge plan with the patient and/or family/friend/caregiver if present. Education and reassurance provided regards to presumed diagnosis. I emphasized the importance of follow-up with the physician I referred them to in the timeframe recommended. I explained reasons for the patient to return to the Emergency Department. Additional verbal discharge instructions were also given and discussed with the patient to supplement those generated by the EMR. We also discussed medications that were prescribed (if any) including common side effects and interactions as well as proper dosing and administration. The patient was advised to abstain from driving, operating heavy machinery or making significant decisions while taking medications such as opiates and muscle relaxers that may impair this. All questions were addressed. They understand return precautions and discharge instructions. The patient and/or family/friend/caregiver expressed understanding 1. Fall, initial encounter 2. Contusion of right knee and lower leg, initial encounter HYDROcodone-acetaminophen (Onida) 5-325 mg tablet diclofenac sodium (Voltaren) 1 % gel Knee Brace, Hinged --- 07/09/24 at 11:24 AM - Miles He DO Internal & Emergency Medicine Miles He DO Resident 07/09/24 1221 documented in this encounter [facility] Work Phone: 07-09-2024 Physician Emergency department Note Images from the original note were not included. Emergency Department Provider Note MEDICAL DECISION MAKING: Medical Decision Making 07/09/24 Chief Complaint Patient presents with Knee Injury Patient went to step into the van and fell, when she went to stand, staff report she would not put any weight on R leg. C/o R knee pain, no LOC History/Exam limitations: none. Additional history was obtained from patient. HPI: Shaji Esquivel is a 63 y.o. presents with right knee pain after fall. Pain is localized to the right anterior knee. No loss consciousness. No neck or back pain. Past medical records, Past medical history and surgical history reviewed and as documented. History reviewed and as noted. past medical records reviewed. Active Ambulatory Problems Diagnosis Date Noted Hypertension 04/21/2023 Disease of thyroid gland 04/21/2023 GERD (gastroesophageal reflux disease) 04/21/2023 Chronic kidney disease 04/21/2023 Parkinson disease (Multi) 04/21/2023 Encounter for screening mammogram for malignant neoplasm of breast 04/21/2023 Acquired hypothyroidism 04/21/2023 Schizophrenia 04/21/2023 Gait abnormality 12/26/2023 Balance disorder 12/26/2023 Resolved Ambulatory Problems Diagnosis Date Noted No Resolved Ambulatory Problems Past Medical History: Diagnosis Date Anemia Diabetes mellitus (Multi) Mental disability History reviewed. No pertinent surgical history. Family History Family history unknown: Yes Social History Tobacco Use Smoking status: Never Smokeless tobacco: Never Vaping Use Vaping status: Never Used Substance Use Topics Alcohol use: Never Drug use: Never No Known Allergies Unless otherwise stated in this report the patient's positive and negative responses for review of systems for constitutional, eyes, ENT, cardiovascular, respiratory, gastrointestinal, neurological, genitourinary, musculoskeletal, and integument systems and related systems to the presenting problem are either as stated in the HPI or were not pertinent or were negative for the symptoms and/or complaints related to the presenting medical problem. PHYSICAL EXAM Triage/nursing notes and vital signs reviewed as available and as noted Vitals: 07/09/24 1100 BP: 149/79 Pulse: 83 Resp: 18 Temp: 36.9 C (98.5 F) TempSrc: Temporal SpO2: 96% Constitutional: Appearance: Patient not ill-appearing or toxic-appearing. HENT: Head: Atraumatic. Mouth/Throat: Mouth: Mucous membranes are moist. Pharynx: Oropharynx is clear. No pharyngeal swelling. Neck: No Obvious JVD. Trachea midline. No neck swelling. Eyes: Normal Ocular tracking Cardiovascular: Rate and Rhythm: Normal rate and regular rhythm. Pulses: Normal pulses. Heart sounds: No murmur heard. Pulmonary: Effort: Pulmonary effort is normal. Breath sounds: Normal breath sounds. Abdominal: General: Bowel sounds are normal. Palpations: Abdomen is soft. Tenderness: There is no abdominal tenderness. There is no guarding or rebound. Musculoskeletal: Cervical back: Neck supple. Right lower leg: No tenderness. No edema. Diffuse soft tissue tenderness noted of the elbow. Mild joint ecchymosis and swelling. No deformity. No crepitus. Range of motion grossly intact to flexion and extension. No bony tenderness, or deformity of the joint above or below. Neurovascular is intact. Left lower leg: No tenderness. No edema. Skin: General: Skin is warm and dry. Capillary Refill: Capillary refill takes less than 2 seconds. Neurological: General: No focal deficit present. Mental Status: Patient is alert. Appropriate conversant Sensory: Gross Sensation is intact. Motor: Gross Motor function is intact symmetrically Psychiatric: Mood and Affect: Mood normal. Cooperative, no apparent risk to self or others ED COURSE Current subjective and objective findings, differential diagnosis includes but not limited to knee fracture, contusion, sprain/strain Work-up performed to evaluate for differential diagnosis as clinically indicated Orders Placed This Encounter Procedures XR knee right 1-2 views XR hip right with pelvis when performed 2 or 3 views Labs and imaging reviewed by me and note Labs Reviewed - No data to display XR knee right 1-2 views Final Result No acute abnormality in the right knee MACRO: None Signed by: Alexys Moran 07/09/2024 12:15 PM Dictation workstation: [id number] XR hip right with pelvis when performed 2 or 3 views Final Result No acute fracture seen in the right hip. If there is persistent clinical concern CT can be performed for further evaluation MACRO: None Signed by: Alexys Moran 07/09/2024 12:14 PM Dictation workstation: [id number] Pt course which Intervention and treatment included : Procedure Procedures Medications acetaminophen (Tylenol) tablet 975 mg (has no administration in time range) oxyCODONE (Roxicodone) immediate release tablet 5 mg (has no administration in time range) Diagnoses as of 07/09/24 1220 Fall, initial encounter Contusion of right knee and lower leg, initial encounter DISPOSITION: Patient is stable for discharge. Based upon my history, physical exam, evaluation and judgement regarding the aforementioned differentials, at the time of this assessment, I do not see evidence to support the presence of any life, neurologic, or limb threatening pathology in my considered differentials. Alternate non life threatening pathology has been considered, and has been ruled out based upon the findings of my evaluation. While there may be remaining pathology considered within the differential, this is not life threatening, not limb threatening, and does not warrant further emergent evaluation or treatment at this time. Shared decision making made with the patient as applicable. It is my judgement that further treatment and evaluation can safely proceed in the outpatient setting. Shared decision making was utilized to arrive at all clinical decisions. At this time I do not see evidence of an emergency medical condition based upon my medical screening examination. All imaging and laboratory results were discussed with the patient in detail including acute as well as incidental findings. I discussed the differential, results and discharge plan with the patient and/or family/friend/caregiver if present. Education and reassurance provided regards to presumed diagnosis. I emphasized the importance of follow-up with the physician I referred them to in the timeframe recommended. I explained reasons for the patient to return to the Emergency Department. Additional verbal discharge instructions were also given and discussed with the patient to supplement those generated by the EMR. We also discussed medications that were prescribed (if any) including common side effects and interactions as well as proper dosing and administration. The patient was advised to abstain from driving, operating heavy machinery or making significant decisions while taking medications such as opiates and muscle relaxers that may impair this. All questions were addressed. They understand return precautions and discharge instructions. The patient and/or family/friend/caregiver expressed understanding 1. Fall, initial encounter 2. Contusion of right knee and lower leg, initial encounter HYDROcodone-acetaminophen (Onida) 5-325 mg tablet diclofenac sodium (Voltaren) 1 % gel Knee Brace, Hinged --- 07/09/24 at 11:24 AM - Miles He DO Internal & Emergency Medicine Miles He DO Resident 07/09/24 1221 [facility] Work Phone: 06-28-2024 History of Present illness Narrative Subjective Patient ID: Shaji Esquivel is a 63 y.o. female who presents for Follow-up (3 MONTH/Pt states she is not feeling well today ). HPI Patient is here today for 3 mo follow up with senior care staff member. Pt has finished PT. Pt has still had falls, she is using wheelchair today,. She is leaning forward and keep reminding her to sit back, they are wondering if it is more of a behavior issue as she can go back and forth to her bedroom to get something without issue fine. Pt complains that she is not feeling well, has no appetite. retirement staff says that she always generally has a complaint. She has not vomited. She takes protonix. Review of Systems Constitutional: Negative for activity change, appetite change, chills and fatigue. HENT: Negative for congestion, postnasal drip, sinus pressure, sinus pain and sore throat. Respiratory: Negative for cough, shortness of breath and wheezing. Cardiovascular: Negative for chest pain and leg swelling. Gastrointestinal: Positive for nausea. Negative for abdominal distention, diarrhea and vomiting. Musculoskeletal: Negative for back pain. Neurological: Negative for weakness and numbness. Objective BP 129/71 (BP Location: Left arm, Patient Position: Sitting, BP Cuff Size: Adult) Pulse 93 Ht 1.676 m (5' 6) Wt 72.6 kg (160 lb) BMI 25.82 kg/m Physical Exam Constitutional: General: She is not in acute distress. Appearance: Normal appearance. HENT: Head: Normocephalic. Nose: Nose normal. Mouth/Throat: Mouth: Mucous membranes are dry. Pharynx: No oropharyngeal exudate. Eyes: General: Right eye: No discharge. Left eye: No discharge. Extraocular Movements: Extraocular movements intact. Pupils: Pupils are equal, round, and reactive to light. Cardiovascular: Rate and Rhythm: Normal rate and regular rhythm. Heart sounds: No murmur heard. No gallop. Pulmonary: Effort: Pulmonary effort is normal. No respiratory distress. Breath sounds: Normal breath sounds. No wheezing. Musculoskeletal: General: No swelling. Normal range of motion. Comments: Bilateral contracted hands Skin: General: Skin is warm and dry. Coloration: Skin is not jaundiced. Neurological: General: No focal deficit present. Mental Status: She is alert and oriented to person, place, and time. Cranial Nerves: No cranial nerve deficit. Psychiatric: Mood and Affect: Mood normal. Behavior: Behavior normal. Assessment/Plan Problem List Items Addressed This Visit Hypertension GERD (gastroesophageal reflux disease) Parkinson disease (Multi) Acquired hypothyroidism - Primary Relevant Orders TSH with reflex to Free T4 if abnormal Schizophrenia Balance disorder Hx of Frequent falls , rib fractures and ICH - finished with pt - staff states that they are wondering if it is behavioral as if she wants something out of her room she will walk to and from without any issues for example - following with neuro surgery 2. [facility] - on remeron - on xyprexa 3. HTN, Controlled - continue norvasc 4. HLD - continue lipitpr 10mg po daily 5. Parkinsons - follows with Dr Ortiz - on Sinemnet 6. DMII - last A1c was 7.2 03/31, 7.9% , 7.8% -> pending - continue jardiance 25mg po daily - continue metformin - continue glipizide 10mg po bid 7. Hypothyroidism -continue synthroid 8. GERD - on ppi She has an appt with new pcp already, they are aware that I will be leaving at the end of Aug 03. Final diagnoses: [E03.9] Acquired hypothyroidism [I10] Primary hypertension [K21.9] Gastroesophageal reflux disease without esophagitis [F20.9] Schizophrenia, unspecified type [G20.A1] Parkinson's disease without dyskinesia or fluctuating manifestations [R26.89] Balance disorder documented in this encounter [facility] Work Phone: 06-24-2024 Evaluation + Plan note Associated Problem(s): Recurrent falls Shuffling gait with Parkinson's disease increases fall risk. Lives in senior care. Staff tries to have aide assist with walking all the time; patient sometimes up without alerting staff. Difficult to rn transitional and steer walker due to hand/wrist contractions. - Wear closed footwear with non-slip bottom - No area rugs - Keep cords clear of walkways - Walk with staff assistance [facility] 06-24-2024 Miscellaneous Notes Associated Problem(s): Recurrent falls Shuffling gait with Parkinson's disease increases fall risk. Lives in senior care. Staff tries to have aide assist with walking all the time; patient sometimes up without alerting staff. Difficult to rn transitional and steer walker due to hand/wrist contractions. - Wear closed footwear with non-slip bottom - No area rugs - Keep cords clear of walkways - Walk with staff assistance Associated Problem(s): Schizophrenia (HCC) Follows with psych, Dr. Estrada. On benztropine, mirtazapine, olanzapine. Nurse reports intermittent behaviors, but manageable. Associated Problem(s): Parkinson's disease (HCC) Follows with neurologist - Dr. Ortiz. On carbidopa-levodopa 25-100, 2 tablets TID. With shuffling gait increasing fall risk. Walks without device at home, but with aide present. No concerns today. Associated Problem(s): Type 2 diabetes mellitus without complication (HCC) A1c goal <7.5%. Last A1c was 7.8% on 03/12/24. Current treatment with metformin 500 mg BID, empagliflozin 25 mg daily, glipizide 5 mg bid, januvia 100 mg daily. - Check daily fasting BG, keep a log - Try to decrease portions of carbohydrates in favor of more vegetables - Annual diabetic eye exam with [facility] - Follows Dr. Kimble for podiatry, working on getting diabetic shoes - Follow up in 3 months, will check A1c and urine microalbumin Associated Problem(s): Hypertension Goal <140/90. Current therapy with amlodipine 2.5 mg daily. BP 134/83 today. Not on ACEi or ARB, though diabetic. Will discuss switching in the future for renal protection. - Check CMP q6 months documented in this encounter [facility] 06-24-2024 Evaluation + Plan note Associated Problem(s): Schizophrenia (HCC) Follows with psych, Dr. Estrada. On benztropine, mirtazapine, olanzapine. Nurse reports intermittent behaviors, but manageable. [facility] 06-24-2024 Evaluation + Plan note Associated Problem(s): Parkinson's disease (HCC) Follows with neurologist - Dr. Ortiz. On carbidopa-levodopa 25-100, 2 tablets TID. With shuffling gait increasing fall risk. Walks without device at home, but with aide present. No concerns today. [facility] 06-24-2024 Evaluation + Plan note Associated Problem(s): Type 2 diabetes mellitus without complication (HCC) A1c goal <7.5%. Last A1c was 7.8% on 03/12/24. Current treatment with metformin 500 mg BID, empagliflozin 25 mg daily, glipizide 5 mg bid, januvia 100 mg daily. - Check daily fasting BG, keep a log - Try to decrease portions of carbohydrates in favor of more vegetables - Annual diabetic eye exam with [facility] - Follows Dr. Kimble for podiatry, working on getting diabetic shoes - Follow up in 3 months, will check A1c and urine microalbumin [facility] 06-24-2024 Evaluation + Plan note Associated Problem(s): Hypertension Goal <140/90. Current therapy with amlodipine 2.5 mg daily. BP 134/83 today. Not on ACEi or ARB, though diabetic. Will discuss switching in the future for renal protection. - Check CMP q6 months [facility] 06-23-2024 Note Assessment/Plan: Hypertension Goal <140/90. Current therapy with amlodipine 2.5 mg daily. BP 134/83 today. Not on ACEi or ARB, though diabetic. Will discuss switching in the future for renal protection. - Check CMP q6 months Type 2 diabetes mellitus without complication (HCC) A1c goal <7.5%. Last A1c was 7.8% on 03/12/24. Current treatment with metformin 500 mg BID, empagliflozin 25 mg daily, glipizide 5 mg bid, januvia 100 mg daily. - Check daily fasting BG, keep a log - Try to decrease portions of carbohydrates in favor of more vegetables - Annual diabetic eye exam with [facility] - Follows Dr. Kimble for podiatry, working on getting diabetic shoes - Follow up in 3 months, will check A1c and urine microalbumin Parkinson's disease (HCC) Follows with neurologist - Dr. Ortiz. On carbidopa-levodopa 25-100, 2 tablets TID. With shuffling gait increasing fall risk. Walks without device at home, but with aide present. No concerns today. Schizophrenia (HCC) Follows with psych, Dr. Estrada. On benztropine, mirtazapine, olanzapine. Nurse reports intermittent behaviors, but manageable. Recurrent falls Shuffling gait with Parkinson's disease increases fall risk. Lives in senior care. Staff tries to have aide assist with walking all the time; patient sometimes up without alerting staff. Difficult to rn transitional and steer walker due to hand/wrist contractions. - Wear closed footwear with non-slip bottom - No area rugs - Keep cords clear of walkways - Walk with staff assistance Recent E. Coli UTI treated with cipro; no symptoms today. Discussed that we don't re-test for clearance of infection if no symptoms. Will need mammogram ordered next visit. Due 07/2023 Subjective: Shaji Esquivel is a 63 y.o. female Chief Complaint Patient presents with Establish Care Need diabetic foot exam for shoes. Need tested for uti to make sure gone if she needs to pee Patient presents to establish care. Accompanied by her nurse and the nurse cook manager from her senior care. Previous PCP Dr. Jacinto at . PMH: HTN, HLD, SAH, DM2, hypothyroidism, GERD, CKD, schizophrenia, Parkinson's. DM Taking metformin, empagliflozin, januvia, and glipizide Vat Tender - [facility] Podiatry - Dr. Kimble Parkinson's On levodopa-carbidopa Neurologist - Dr. Ortiz Schizophrenia Psych -Dr. Estrada [employer] Dr. Kimble Symptoms started 2 weeks ago. Acting out, dysuria. Urine culture positive for E. Coli. Treated with cipro. Symptoms have resolved. The following portions of the patient's history were reviewed and updated as appropriate: allergies, current medications, past family history, past medical history, past social history, past surgical history and problem list. Review of Systems Objective: PACU Vitals 06/23/24 1400 BP: 134/83 Pulse: Resp: Temp: SpO2: Physical Exam Constitutional: General: She is not in acute distress. Appearance: Normal appearance. She is not ill-appearing, toxic-appearing or diaphoretic. Comments: In wheelchair HENT: Mouth/Throat: Mouth: Mucous membranes are moist. Eyes: General: No scleral icterus. Extraocular Movements: Extraocular movements intact. Cardiovascular: Rate and Rhythm: Normal rate and regular rhythm. Heart sounds: Normal heart sounds. No murmur heard. No gallop. Pulmonary: Effort: Pulmonary effort is normal. No respiratory distress. Breath sounds: Normal breath sounds. No wheezing or rales. Skin: General: Skin is warm and dry. Coloration: Skin is not jaundiced or pale. Neurological: Mental Status: She is alert. Psychiatric: Attention and Perception: Attention normal. Mood and Affect: Mood normal. Behavior: Behavior is slowed. Comments: Some tangential thoughts Speech mildly difficult to understand For any new medications prescribed today, patient was educated about indications for the medication, how to take the medication and potential side effects of the medications. My ongoing relationship with Shaji Esquivel requires continued responsibility and cognitive effort of being the focal point for all services related to chronic condition(s). Zara Evans, DO AUTHENTICATED BY ZARA EVANS, ON 06/24/2024 01:29:15 [facility] 06-23-2024 History of Present illness Narrative Assessment/Plan: Hypertension Goal <140/90. Current therapy with amlodipine 2.5 mg daily. BP 134/83 today. Not on ACEi or ARB, though diabetic. Will discuss switching in the future for renal protection. - Check CMP q6 months Type 2 diabetes mellitus without complication (HCC) A1c goal <7.5%. Last A1c was 7.8% on 03/12/24. Current treatment with metformin 500 mg BID, empagliflozin 25 mg daily, glipizide 5 mg bid, januvia 100 mg daily. - Check daily fasting BG, keep a log - Try to decrease portions of carbohydrates in favor of more vegetables - Annual diabetic eye exam with [facility] - Follows Dr. Kimble for podiatry, working on getting diabetic shoes - Follow up in 3 months, will check A1c and urine microalbumin Parkinson's disease (HCC) Follows with neurologist - Dr. Ortiz. On carbidopa-levodopa 25-100, 2 tablets TID. With shuffling gait increasing fall risk. Walks without device at home, but with aide present. No concerns today. Schizophrenia (HCC) Follows with psych, Dr. Estrada. On benztropine, mirtazapine, olanzapine. Nurse reports intermittent behaviors, but manageable. Recurrent falls Shuffling gait with Parkinson's disease increases fall risk. Lives in senior care. Staff tries to have aide assist with walking all the time; patient sometimes up without alerting staff. Difficult to rn transitional and steer walker due to hand/wrist contractions. - Wear closed footwear with non-slip bottom - No area rugs - Keep cords clear of walkways - Walk with staff assistance Recent E. Coli UTI treated with cipro; no symptoms today. Discussed that we don't re-test for clearance of infection if no symptoms. Will need mammogram ordered next visit. Due 07/2023 Subjective: Shaji Esquivel is a 63 y.o. female Chief Complaint Patient presents with Establish Care Need diabetic foot exam for shoes. Need tested for uti to make sure gone if she needs to pee Patient presents to establish care. Accompanied by her nurse and the nurse cook manager from her senior care. Previous PCP Dr. Jacinto at . PMH: HTN, HLD, SAH, DM2, hypothyroidism, GERD, CKD, schizophrenia, Parkinson's. DM Taking metformin, empagliflozin, januvia, and glipizide Vat Tender - [facility] - Dr. Kimble Parkinson's On levodopa-carbidopa Neurologist - Dr. Ortiz Schizophrenia Psych -Dr. Estrada [employer] Dra[employer] Dr. Kimble Symptoms started 2 weeks ago. Acting out, dysuria. Urine culture positive for E. Coli. Treated with cipro. Symptoms have resolved. The following portions of the patient's history were reviewed and updated as appropriate: allergies, current medications, past family history, past medical history, past social history, past surgical history and problem list. Review of Systems Objective: PACU Vitals 06/23/24 1400 BP: 134/83 Pulse: Resp: Temp: SpO2: Physical Exam Constitutional: General: She is not in acute distress. Appearance: Normal appearance. She is not ill-appearing, toxic-appearing or diaphoretic. Comments: In wheelchair HENT: Mouth/Throat: Mouth: Mucous membranes are moist. Eyes: General: No scleral icterus. Extraocular Movements: Extraocular movements intact. Cardiovascular: Rate and Rhythm: Normal rate and regular rhythm. Heart sounds: Normal heart sounds. No murmur heard. No gallop. Pulmonary: Effort: Pulmonary effort is normal. No respiratory distress. Breath sounds: Normal breath sounds. No wheezing or rales. Skin: General: Skin is warm and dry. Coloration: Skin is not jaundiced or pale. Neurological: Mental Status: She is alert. Psychiatric: Attention and Perception: Attention normal. Mood and Affect: Mood normal. Behavior: Behavior is slowed. Comments: Some tangential thoughts Speech mildly difficult to understand For any new medications prescribed today, patient was educated about indications for the medication, how to take the medication and potential side effects of the medications. My ongoing relationship with Shaji Esquivel requires continued responsibility and cognitive effort of being the focal point for all services related to chronic condition(s). Zara Evans DO documented in this encounter [facility] 04-27-2024 Note Ameena Ruiz PM Patient Name: Shaji Esquivel. . Date of : 1960, 63 y.o.. Gender: female. Subjective: Patient is a pleasant 63-year-old female who presents to clinic for painful right great toe nail. Patient's aide/nurse by her side stating that it is difficult for her to cut her right great toenail. She also admits to numbness and tingling to her toes. No other pedal complaints at this time. Denies fevers, chills, nausea, vomiting, chest pain, shortness of breath, or any other constitutional symptoms. Past Medical History: Diagnosis Date Diabetes (HCC) Disease of thyroid gland High cholesterol Hypertension SAH (subarachnoid hemorrhage) (HCC) 12/04/2023 Past Surgical History: Procedure Laterality Date XR LUMBAR PUNCTURE (DIAGNOSTIC) WITH GAIT ANALYSIS 04/17/2022 XR LUMBAR PUNCTURE (DIAGNOSTIC) WITH GAIT ANALYSIS 04/17/2022 [facility] Social History Socioeconomic History Marital status: Single Tobacco Use Smoking status: Never Smokeless tobacco: Never Vaping Use Vaping status: Never Used Substance and Sexual Activity Alcohol use: Not Currently Drug use: Not Currently Physical Examination: BP 130/85 (BP Location: Left arm, Patient Position: Sitting, BP Cuff Size: Adult) Pulse 86 Temp 98.2 degrees F (36.8 degrees C) (Infrared) General Appearance: Alert, cooperative, no distress, appears stated age. Podiatric Exam Vascular: DP and PT pulses are palpable 2/4. Capillary refill time is less than 3 secs to distal digits. Skin temperature is warm to warm from proximal tibial tuberosity to distal digit. Neurological: Gross sensation is intact. Protective sensation is diminished using the [place] Piotr monofilament. Dermatologic: The right great toenail is elongated, thickened, dystrophic and mycotic subungual debris. Remaining toenails are dystrophic. Interdigital spaces are clean dry and intact. Preulcerative lesions noted subfirst and second metatarsal heads bilaterally. Musculoskeletal: Pain on palpation to the right great toenail. Patient is able to wiggle digits. Ankle joint range of motion is intact. Compartments soft and compressible. No calf pain Diagnoses: 1. Onychomycosis 2. Onychodystrophy 3. Diabetic peripheral neuropathy (HCC) 4. Pain due to onychomycosis of toenail of right foot Assessment/Plan: Patient was seen and evaluated. Discussed all clinical findings. Patient has onychomycosis of nails x 1 and onychodystrophy x 9 which require mechanical debridement. Consent was obtained prior to debridement of all toenails on the right and left foot using podiatric nail nippers down to appropriate thickness and length. Patient expressed pain relief following the procedure. Patient qualifies for nail care due to at risk foot criteria based on Q9 Modifier secondary to diabetic peripheral neuropathy. All questions were answered to patient satisfaction. Patient understands to call with any questions or concerns. Follow-up in 3 months for at risk foot care. This note was partially created using voice recognition software and is inherently subject to errors including those of syntax and sound-alike substitutions which may escape proofreading. In such instances, original meaning may be extrapolated by contextual derivation. Elizabeth Kimble DPM, MS Podiatric Physician & Surgeon AUTHENTICATED BY ELIZABETH KIMBLE, ON 04/27/2024 10:21:20 [facility] 04-27-2024 History of Present illness Narrative Images from the original note were not included. Elizabeth Kimble DPM Patient Name: Shaji Esquivel. . Date of : 1960, 63 y.o.. Gender: female. Subjective: Patient is a pleasant 63-year-old female who presents to clinic for painful right great toe nail. Patient's aide/nurse by her side stating that it is difficult for her to cut her right great toenail. She also admits to numbness and tingling to her toes. No other pedal complaints at this time. Denies fevers, chills, nausea, vomiting, chest pain, shortness of breath, or any other constitutional symptoms. Past Medical History: Diagnosis Date Diabetes (HCC) Disease of thyroid gland High cholesterol Hypertension SAH (subarachnoid hemorrhage) (HCC) 12/04/2023 Past Surgical History: Procedure Laterality Date XR LUMBAR PUNCTURE (DIAGNOSTIC) WITH GAIT ANALYSIS 04/17/2022 XR LUMBAR PUNCTURE (DIAGNOSTIC) WITH GAIT ANALYSIS 04/17/2022 [facility]ST[facility] Social History Socioeconomic History Marital status: Single Tobacco Use Smoking status: Never Smokeless tobacco: Never Vaping Use Vaping status: Never Used Substance and Sexual Activity Alcohol use: Not Currently Drug use: Not Currently Physical Examination: BP 130/85 (BP Location: Left arm, Patient Position: Sitting, BP Cuff Size: Adult) Pulse 86 Temp 98.2 F (36.8 C) (Infrared) General Appearance: Alert, cooperative, no distress, appears stated age. Podiatric Exam Vascular: DP and PT pulses are palpable 2/4. Capillary refill time is less than 3 secs to distal digits. Skin temperature is warm to warm from proximal tibial tuberosity to distal digit. Neurological: Gross sensation is intact. Protective sensation is diminished using the [place] Piotr monofilament. Dermatologic: The right great toenail is elongated, thickened, dystrophic and mycotic subungual debris. Remaining toenails are dystrophic. Interdigital spaces are clean dry and intact. Preulcerative lesions noted subfirst and second metatarsal heads bilaterally. Musculoskeletal: Pain on palpation to the right great toenail. Patient is able to wiggle digits. Ankle joint range of motion is intact. Compartments soft and compressible. No calf pain Diagnoses: 1. Onychomycosis 2. Onychodystrophy 3. Diabetic peripheral neuropathy (HCC) 4. Pain due to onychomycosis of toenail of right foot Assessment/Plan: Patient was seen and evaluated. Discussed all clinical findings. Patient has onychomycosis of nails x 1 and onychodystrophy x 9 which require mechanical debridement. Consent was obtained prior to debridement of all toenails on the right and left foot using podiatric nail nippers down to appropriate thickness and length. Patient expressed pain relief following the procedure. Patient qualifies for nail care due to at risk foot criteria based on Q9 Modifier secondary to diabetic peripheral neuropathy. All questions were answered to patient satisfaction. Patient understands to call with any questions or concerns. Follow-up in 3 months for at risk foot care. This note was partially created using voice recognition software and is inherently subject to errors including those of syntax and sound-alike substitutions which may escape proofreading. In such instances, original meaning may be extrapolated by contextual derivation. Elizabeth Kimble DPM, MS Podiatric Physician & Surgeon documented in this encounter [facility] 03-29-2024 History of Present illness Narrative Subjective Patient ID: Shaji Esquivel is a 63 y.o. female who presents for Follow-up (3 month) and Fall. Fall Patient is here today for 3 mo follow up Pt reports that she has generalized pain everywhere. Is here today with senior care staff who state that she always complains of diffuse pain, fell back in January and had xrays that only showed rib fractures. She is still getting Pt . Review of Systems Musculoskeletal: Positive for arthralgias and myalgias. Objective BP 128/80 Pulse 89 Ht 1.676 m (5' 6) BMI 25.82 kg/m Physical Exam Constitutional: General: She is not in acute distress. Appearance: Normal appearance. HENT: Head: Normocephalic. Nose: Nose normal. Mouth/Throat: Pharynx: No oropharyngeal exudate. Eyes: General: Right eye: No discharge. Left eye: No discharge. Extraocular Movements: Extraocular movements intact. Pupils: Pupils are equal, round, and reactive to light. Cardiovascular: Rate and Rhythm: Normal rate and regular rhythm. Heart sounds: No murmur heard. No gallop. Pulmonary: Effort: Pulmonary effort is normal. No respiratory distress. Breath sounds: Normal breath sounds. No wheezing. Musculoskeletal: General: No swelling. Normal range of motion. Skin: General: Skin is warm and dry. Coloration: Skin is not jaundiced. Neurological: General: No focal deficit present. Mental Status: She is alert and oriented to person, place, and time. Cranial Nerves: No cranial nerve deficit. Psychiatric: Mood and Affect: Mood normal. Behavior: Behavior normal. Assessment/Plan Problem List Items Addressed This Visit Hypertension GERD (gastroesophageal reflux disease) Chronic kidney disease Parkinson disease (Multi) Acquired hypothyroidism Schizophrenia Other Visit Diagnoses Type 2 diabetes mellitus without complication, without long-term current use of insulin (Multi) - Primary Relevant Medications glipiZIDE (Glucotrol) 10 mg tablet Frequent falls , rib fractures and ICH - doing PT - following with neuro surgery 2. [facility] - on remeron - on xyprexa 3. HTN, Controlled - continue norvasc 4. HLD - continue lipitpr 10mg po daily 5. Parkinsons - follows with Dr Ortiz - on Sinemnet 6. DMII - last A1c was 7.2 03/31, 7.9% , 7.8d - continue jardiance 25mg po daily - continue metformin - continue glipizide (increased to 10mg po bid) 7. Hypothyroidism -continue synthroid 8. GERD - on ppi Final diagnoses: [E11.9] Type 2 diabetes mellitus without complication, without long-term current use of insulin (Multi) [I10] Primary hypertension [E03.9] Acquired hypothyroidism [K21.9] Gastroesophageal reflux disease without esophagitis [N18.31] Stage 3a chronic kidney disease (Multi) [F20.9] Schizophrenia, unspecified type [G20.A1] Parkinson's disease without dyskinesia or fluctuating manifestations documented in this encounter [facility] Work Phone: 02-16-2024 Note Ameena Ruiz PM Patient Name: Shaji Esquivel. . Date of : 1960, 63 y.o.. Gender: female. Subjective: Patient is a pleasant 63-year-old female who presents to clinic for painful right great toe nail. Patient's aide/nurse by her side stating that it is difficult for her to cut her right great toenail. She also admits to numbness and tingling to her toes. No other pedal complaints at this time. Denies fevers, chills, nausea, vomiting, chest pain, shortness of breath, or any other constitutional symptoms. Past Medical History: Diagnosis Date Diabetes (HCC) Disease of thyroid gland High cholesterol Hypertension SAH (subarachnoid hemorrhage) (HCC) 12/04/2023 Past Surgical History: Procedure Laterality Date XR LUMBAR PUNCTURE (DIAGNOSTIC) WITH GAIT ANALYSIS 04/17/2022 XR LUMBAR PUNCTURE (DIAGNOSTIC) WITH GAIT ANALYSIS 04/17/2022 DIAGNOSTICS Social History Socioeconomic History Marital status: Single Tobacco Use Smoking status: Never Smokeless tobacco: Never Vaping Use Vaping status: Never Used Substance and Sexual Activity Alcohol use: Not Currently Drug use: Not Currently Physical Examination: BP (!) 144/83 (BP Location: Left arm, Patient Position: Sitting, BP Cuff Size: Adult) Pulse 92 Temp 98.4 degrees F (36.9 degrees C) (Infrared) General Appearance: Alert, cooperative, no distress, appears stated age. Podiatric Exam Vascular: DP and PT pulses are palpable 2/4. Capillary refill time is less than 3 secs to distal digits. Skin temperature is warm to warm from proximal tibial tuberosity to distal digit. Neurological: Gross sensation is intact. Protective sensation is diminished using the [place] Piotr monofilament. Dermatologic: The right great toenail is elongated, thickened, dystrophic and mycotic subungual debris. Remaining toenails are dystrophic. Interdigital spaces are clean dry and intact. Preulcerative lesions noted subfirst and second metatarsal heads bilaterally. Musculoskeletal: Pain on palpation to the right great toenail. Patient is able to wiggle digits. Ankle joint range of motion is intact. Compartments soft and compressible. No calf pain Diagnoses: 1. Onychomycosis 2. Onychodystrophy 3. Diabetic peripheral neuropathy (HCC) 4. Pain due to onychomycosis of toenail of right foot Assessment/Plan: Patient was seen and evaluated. Discussed all clinical findings. Patient has onychomycosis of nails x 1 and onychodystrophy x 9 which require mechanical debridement. Consent was obtained prior to debridement of all toenails on the right and left foot using podiatric nail nippers down to appropriate thickness and length. Patient expressed pain relief following the procedure. Patient qualifies for nail care due to at risk foot criteria based on Q9 Modifier secondary to diabetic peripheral neuropathy. All questions were answered to patient satisfaction. Patient understands to call with any questions or concerns. Follow-up in 3 months for at risk foot care. This note was partially created using voice recognition software and is inherently subject to errors including those of syntax and sound-alike substitutions which may escape proofreading. In such instances, original meaning may be extrapolated by contextual derivation. Elizabeth Kimble DPM, MS Podiatric Physician & Surgeon AUTHENTICATED BY ELIZABETH KIMBLE, ON 02/16/2024 04:02:37 [facility] 02-16-2024 History of Present illness Narrative Images from the original note were not included. Elizabeth Kimble DPM Patient Name: Shaji Esquivel. . Date of : 1960, 63 y.o.. Gender: female. Subjective: Patient is a pleasant 63-year-old female who presents to clinic for painful right great toe nail. Patient's aide/nurse by her side stating that it is difficult for her to cut her right great toenail. She also admits to numbness and tingling to her toes. No other pedal complaints at this time. Denies fevers, chills, nausea, vomiting, chest pain, shortness of breath, or any other constitutional symptoms. Past Medical History: Diagnosis Date Diabetes (HCC) Disease of thyroid gland High cholesterol Hypertension SAH (subarachnoid hemorrhage) (HCC) 12/04/2023 Past Surgical History: Procedure Laterality Date XR LUMBAR PUNCTURE (DIAGNOSTIC) WITH GAIT ANALYSIS 04/17/2022 XR LUMBAR PUNCTURE (DIAGNOSTIC) WITH GAIT ANALYSIS 04/17/2022 [facility] Social History Socioeconomic History Marital status: Single Tobacco Use Smoking status: Never Smokeless tobacco: Never Vaping Use Vaping status: Never Used Substance and Sexual Activity Alcohol use: Not Currently Drug use: Not Currently Physical Examination: BP (!) 144/83 (BP Location: Left arm, Patient Position: Sitting, BP Cuff Size: Adult) Pulse 92 Temp 98.4 F (36.9 C) (Infrared) General Appearance: Alert, cooperative, no distress, appears stated age. Podiatric Exam Vascular: DP and PT pulses are palpable 2/4. Capillary refill time is less than 3 secs to distal digits. Skin temperature is warm to warm from proximal tibial tuberosity to distal digit. Neurological: Gross sensation is intact. Protective sensation is diminished using the [place] Piotr monofilament. Dermatologic: The right great toenail is elongated, thickened, dystrophic and mycotic subungual debris. Remaining toenails are dystrophic. Interdigital spaces are clean dry and intact. Preulcerative lesions noted subfirst and second metatarsal heads bilaterally. Musculoskeletal: Pain on palpation to the right great toenail. Patient is able to wiggle digits. Ankle joint range of motion is intact. Compartments soft and compressible. No calf pain Diagnoses: 1. Onychomycosis 2. Onychodystrophy 3. Diabetic peripheral neuropathy (HCC) 4. Pain due to onychomycosis of toenail of right foot Assessment/Plan: Patient was seen and evaluated. Discussed all clinical findings. Patient has onychomycosis of nails x 1 and onychodystrophy x 9 which require mechanical debridement. Consent was obtained prior to debridement of all toenails on the right and left foot using podiatric nail nippers down to appropriate thickness and length. Patient expressed pain relief following the procedure. Patient qualifies for nail care due to at risk foot criteria based on Q9 Modifier secondary to diabetic peripheral neuropathy. All questions were answered to patient satisfaction. Patient understands to call with any questions or concerns. Follow-up in 3 months for at risk foot care. This note was partially created using voice recognition software and is inherently subject to errors including those of syntax and sound-alike substitutions which may escape proofreading. In such instances, original meaning may be extrapolated by contextual derivation. Elizabeth Kimble DPM, MS Podiatric Physician & Surgeon documented in this encounter [facility] 02-03-2024 Note [facility] [address] (11) [facility] [address] [facility] [id number] Shaji Esquivel is a 63 y.o. female being seen today, 02/03/24, Chief Complaint Patient presents with Right Wrist - Consult, Pain, Injury [chief complaint] right wrist pain HPI Dictation: This patient had a recent fall with new x-rays performed 822 showing a mild dorsal subluxation distal ulna unchanged from prior x-rays previously seen as inpatient consult for mention finding was CT performed unremarkable with finger contractures from Parkinson's [hpi] Physical Exam Dictation: [PE] there is really no localized point tenderness there is prominence of her distal ulna but symmetric with her opposite wrist Assessment and Plan Dictation: [AP] plan can use hand as pain allows could wear her brace as needed for pain but no further treatment required return. I have reviewed all relevant histories, medications, allergies, and problem list items with Shaji sEquivel during this visit. Review of Systems Constitutional: Negative for chills and fever. HENT: Negative for congestion. Respiratory: Negative for shortness of breath. Cardiovascular: Negative for chest pain. Gastrointestinal: Negative for diarrhea, nausea and vomiting. Neurological: Negative for headaches. Psychiatric/Behavioral: Negative for behavioral problems. Ht 5' 5 Wt 69.9 kg (154 lb) BMI 25.63 kg/m Imaging: No results found. 1. Right wrist pain Return if symptoms worsen or fail to improve. Sachin Morales MD AUTHENTICATED BY SACHIN MORALES, ON 02/03/2024 13:07:29 [facility] 02-03-2024 History of Present illness Narrative [facility] [address] (11) [facility] [address] [facility] [id number] Shaji Esquivel is a 63 y.o. female being seen today, 02/03/24, Chief Complaint Patient presents with Right Wrist - Consult, Pain, Injury [chief complaint] right wrist pain HPI Dictation: This patient had a recent fall with new x-rays performed 822 showing a mild dorsal subluxation distal ulna unchanged from prior x-rays previously seen as inpatient consult for mention finding was CT performed unremarkable with finger contractures from Parkinson's [hpi] Physical Exam Dictation: [PE] there is really no localized point tenderness there is prominence of her distal ulna but symmetric with her opposite wrist Assessment and Plan Dictation: [AP] plan can use hand as pain allows could wear her brace as needed for pain but no further treatment required return. I have reviewed all relevant histories, medications, allergies, and problem list items with Shaji Esquivel during this visit. Review of Systems Constitutional: Negative for chills and fever. HENT: Negative for congestion. Respiratory: Negative for shortness of breath. Cardiovascular: Negative for chest pain. Gastrointestinal: Negative for diarrhea, nausea and vomiting. Neurological: Negative for headaches. Psychiatric/Behavioral: Negative for behavioral problems. Ht 5' 5 Wt 69.9 kg (154 lb) BMI 25.63 kg/m Imaging: No results found. 1. Right wrist pain Return if symptoms worsen or fail to improve. Sachin Morales MD documented in this encounter [facility] 01-29-2024 Hospital Discharge instructions Darin Trujillo MD - 01/29/2024 8:46 AM EDT Ice MOTRIN FOR PAIN AND SWELLING DAVID WRAP TO KNEE DENTAL FOLLOW UP FOR INCISOR INJRY ORTHO FOLLOW UP FOR CHRONIC RIGHT ULNA SUBLUXATION The following attachments cannot be sent through Care Everywhere.Minor Contusion ED (Armenian)documented in this encounter [facility] Work Phone: 01-29-2024 Emergency department Note Images from the original note were not included. Chief Complaint: FALL This is a 63-year-old female who has MRDD who apparently rolled out of bed and was brought here bilateral and felt rescue squad. She complains of some pain in the right knee and the right forearm. There are some dried blood on the corner of her lips but she denies any head face or neck injury. She denies any pains or loss of conscious otherwise and presents now for evaluation Review of Systems Constitutional: Negative for chills and fever. HENT: Positive for dental problem. Eyes: Negative. Respiratory: Negative. Cardiovascular: Negative. Gastrointestinal: Negative for nausea and rectal pain. Genitourinary: Negative. Musculoskeletal: Positive for arthralgias and myalgias. Negative for neck pain and neck stiffness. Skin: Negative for rash and wound. Neurological: Negative for dizziness, syncope, weakness and headaches. Hematological: Negative. Does not bruise/bleed easily. Psychiatric/Behavioral: Negative. All other systems reviewed and are negative. Physical Exam Vitals reviewed. Constitutional: Appearance: Normal appearance. Comments: Patient is awake alert coherent cooperative [place] Coma Scale 15 in no acute discomfort at this time HENT: Head: Normocephalic and atraumatic. Right Ear: Tympanic membrane normal. Left Ear: Tympanic membrane normal. Nose: Nose normal. Mouth/Throat: Mouth: Mucous membranes are dry. Pharynx: Oropharynx is clear. Comments: Left lower incisor shows a minimal subluxation is very minimally loose with some blood but no evidence of any pleat dislocation Eyes: Extraocular Movements: Extraocular movements intact. Conjunctiva/sclera: Conjunctivae normal. Pupils: Pupils are equal, round, and reactive to light. Cardiovascular: Rate and Rhythm: Normal rate. Pulses: Normal pulses. Heart sounds: No murmur heard. Pulmonary: Effort: Pulmonary effort is normal. Breath sounds: Normal breath sounds. No wheezing or rhonchi. Abdominal: General: Abdomen is flat. Bowel sounds are normal. There is no distension. Palpations: Abdomen is soft. Tenderness: There is no abdominal tenderness. Musculoskeletal: Right forearm: Tenderness and bony tenderness present. No edema or deformity. Arms: Cervical back: Normal range of motion and neck supple. No tenderness. Right knee: Bony tenderness present. No swelling. Decreased range of motion. Tenderness present. No MCL, LCL or ACL tenderness. Skin: General: Skin is warm and dry. Capillary Refill: Capillary refill takes less than 2 seconds. Findings: No erythema or rash. Neurological: General: No focal deficit present. Mental Status: She is alert and oriented to person, place, and time. Sensory: No sensory deficit. Motor: No weakness. Psychiatric: Mood and Affect: Mood normal. Behavior: Behavior normal. Labs Reviewed - No data to display XR knee right 1-2 views Final Result Normal right knee radiographs. Signed by: Pito Kaur 01/29/2024 8:37 AM Dictation workstation: [id number] XR forearm right 2 views Final Result No acute fracture. Persistent dorsal subluxation of the distal ulna in relation to the distal radius; correlate clinically. Signed by: Pito Kaur 01/29/2024 8:33 AM Dictation workstation: [id number] Procedures Medical Decision Making Yi diagnosis included forearm fracture forearm contusion right knee contusion right knee sprain right knee fracture ligamentous injury. X-ray studies of the knee were negative x-ray studies of the forearm showed no forearm fracture there is a chronic ulna subluxation. The tooth was not significantly subluxed or loosened at this time and will be followed up with oral surgery. She received an David wrap to the knee and ibuprofen for 100 mg p.o. will be given a prescription for ibuprofen and referred to orthopedics or her primary care physician for follow-up Amount and/or Complexity of Data Reviewed ECG/medicine tests: independent interpretation performed. Details: Of lead EKG showed sinus rhythm at 89/min there is no acute ST segment elevation depressions or arrhythmias as interpreted by myself the emergency physician Diagnoses as of 01/29/24 0854 Subluxation of distal end of right ulna, subsequent encounter Contusion of right forearm, initial encounter Contusion of right knee, initial encounter Subluxation of tooth Darin Trujillo MD 01/29/24 0854 Darin Trujillo MD 01/29/24 0855 documented in this encounter [facility] Work Phone: 01-29-2024 Physician Emergency department Note Images from the original note were not included. Chief Complaint: FALL This is a 63-year-old female who has MRDD who apparently rolled out of bed and was brought here bilateral and felt rescue squad. She complains of some pain in the right knee and the right forearm. There are some dried blood on the corner of her lips but she denies any head face or neck injury. She denies any pains or loss of conscious otherwise and presents now for evaluation Review of Systems Constitutional: Negative for chills and fever. HENT: Positive for dental problem. Eyes: Negative. Respiratory: Negative. Cardiovascular: Negative. Gastrointestinal: Negative for nausea and rectal pain. Genitourinary: Negative. Musculoskeletal: Positive for arthralgias and myalgias. Negative for neck pain and neck stiffness. Skin: Negative for rash and wound. Neurological: Negative for dizziness, syncope, weakness and headaches. Hematological: Negative. Does not bruise/bleed easily. Psychiatric/Behavioral: Negative. All other systems reviewed and are negative. Physical Exam Vitals reviewed. Constitutional: Appearance: Normal appearance. Comments: Patient is awake alert coherent cooperative [place] Coma Scale 15 in no acute discomfort at this time HENT: Head: Normocephalic and atraumatic. Right Ear: Tympanic membrane normal. Left Ear: Tympanic membrane normal. Nose: Nose normal. Mouth/Throat: Mouth: Mucous membranes are dry. Pharynx: Oropharynx is clear. Comments: Left lower incisor shows a minimal subluxation is very minimally loose with some blood but no evidence of any pleat dislocation Eyes: Extraocular Movements: Extraocular movements intact. Conjunctiva/sclera: Conjunctivae normal. Pupils: Pupils are equal, round, and reactive to light. Cardiovascular: Rate and Rhythm: Normal rate. Pulses: Normal pulses. Heart sounds: No murmur heard. Pulmonary: Effort: Pulmonary effort is normal. Breath sounds: Normal breath sounds. No wheezing or rhonchi. Abdominal: General: Abdomen is flat. Bowel sounds are normal. There is no distension. Palpations: Abdomen is soft. Tenderness: There is no abdominal tenderness. Musculoskeletal: Right forearm: Tenderness and bony tenderness present. No edema or deformity. Arms: Cervical back: Normal range of motion and neck supple. No tenderness. Right knee: Bony tenderness present. No swelling. Decreased range of motion. Tenderness present. No MCL, LCL or ACL tenderness. Skin: General: Skin is warm and dry. Capillary Refill: Capillary refill takes less than 2 seconds. Findings: No erythema or rash. Neurological: General: No focal deficit present. Mental Status: She is alert and oriented to person, place, and time. Sensory: No sensory deficit. Motor: No weakness. Psychiatric: Mood and Affect: Mood normal. Behavior: Behavior normal. Labs Reviewed - No data to display XR knee right 1-2 views Final Result Normal right knee radiographs. Signed by: Pito Kaur 01/29/2024 8:37 AM Dictation workstation: [id number] XR forearm right 2 views Final Result No acute fracture. Persistent dorsal subluxation of the distal ulna in relation to the distal radius; correlate clinically. Signed by: Pito Kaur 01/29/2024 8:33 AM Dictation workstation: [id number] Procedures Medical Decision Making Yi diagnosis included forearm fracture forearm contusion right knee contusion right knee sprain right knee fracture ligamentous injury. X-ray studies of the knee were negative x-ray studies of the forearm showed no forearm fracture there is a chronic ulna subluxation. The tooth was not significantly subluxed or loosened at this time and will be followed up with oral surgery. She received an David wrap to the knee and ibuprofen for 100 mg p.o. will be given a prescription for ibuprofen and referred to orthopedics or her primary care physician for follow-up Amount and/or Complexity of Data Reviewed ECG/medicine tests: independent interpretation performed. Details: Of lead EKG showed sinus rhythm at 89/min there is no acute ST segment elevation depressions or arrhythmias as interpreted by myself the emergency physician Diagnoses as of 01/29/24 0854 Subluxation of distal end of right ulna, subsequent encounter Contusion of right forearm, initial encounter Contusion of right knee, initial encounter Subluxation of tooth Darin Trujillo MD 01/29/24 0854 Darin Trujillo MD 01/29/24 0855 [facility] Work Phone: 01-21-2024 Instructions Huy Vasquez PA-C - 01/21/2024 12:48 PM EDT Clinically stable. No new focal neurological symptoms. Her right anterior temporal subarachnoid hemorrhage has resolved as seen on 01/06/[address] head scan. I reviewed this scan with patient and caregivers. There is no new bleed, no skull fracture. Follow up with neurosurgery on an as needed basis. If any headache, mental status change, weakness, visual change, or other focal neurological deficit seek or concern seek emergency department treatment. Call with any questions. documented in this encounter [facility] 01-21-2024 Note Neurosurgery Progres s Note Assessment/Plan: 63 yo female status post fall 12/04/23 with resultant small right temporal SAH. Clinically stable. No new focal neurological symptoms. Her right anterior temporal subarachnoid hemorrhage has resolved as seen on 01/06/[address] head scan. I reviewed this scan with patient and caregivers. There is no new bleed, no skull fracture. Follow up with neurosurgery on an as needed basis. If any headache, mental status change, weakness, visual change, or other focal neurological deficit seek or concern seek emergency department treatment. Call with any questions. Huy Vasquez PA-C [facility] Subjective: Patient is a 63-year-old lady with history of schizophrenia, Parkinson's disease, significant intellectual impairment who lives at a senior care under the guardianship of the [facility]. History was obtained chiefly from her two caregivers who presented to the appointment. Shaji had a ground level fall impacting her right face 12/04/23 without loss of consciousness. She is not on any blood thinners, including aspirin. This resulted in small right temporal SAH, that was managed nonoperatively. She presents for follow up on this hemmorage. No new concerns reported by caregivers. Unfortunately patient contradicts herself when asking her questions regarding how she is doing. No focal neurological changes noted by caregivers. No complaint of headache given by patient to caregivers. Objective: General: Pleasant 63 yo female in NAD. Nontoxic appearing. HENT: NCAT. No tanner sign. No racoon eyes. No otorrhea or rhinorrhea. Nares patent with minimal clear drainage, hearing grossly intact Eyes: PERRLA, 4mm bilaterally, unable to follow EOMI well, but no nystagmus seen on the exam. Anicteric. No ptosis. Neuro: Awake, alert, and oriented x 3; face symmetric, speech fluent. CN ll-Xll intact bilaterally. Neck: Supple, no tenderness, step off, or crepitus. 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 No garcia AUTHENTICATED BY HUY VASQUEZ, ON 01/21/2024 12:48:50 [facility] 01-21-2024 History of Present illness Narrative Neurosurgery Progress Note Assessment/Plan: 63 yo female status post fall 12/04/23 with resultant small right temporal SAH. Clinically stable. No new focal neurological symptoms. Her right anterior temporal subarachnoid hemorrhage has resolved as seen on 01/06/[address] head scan. I reviewed this scan with patient and caregivers. There is no new bleed, no skull fracture. Follow up with neurosurgery on an as needed basis. If any headache, mental status change, weakness, visual change, or other focal neurological deficit seek or concern seek emergency department treatment. Call with any questions. uHy Vasquez PA-C [facility] Subjective: Patient is a 63-year-old lady with history of schizophrenia, Parkinson's disease, significant intellectual impairment who lives at a senior care under the guardianship of the state. History was obtained chiefly from her two caregivers who presented to the appointment. Shaji had a ground level fall impacting her right face 12/04/23 without loss of consciousness. She is not on any blood thinners, including aspirin. This resulted in small right temporal SAH, that was managed nonoperatively. She presents for follow up on this hemmorage. No new concerns reported by caregivers. Unfortunately patient contradicts herself when asking her questions regarding how she is doing. No focal neurological changes noted by caregivers. No complaint of headache given by patient to caregivers. Objective: General: Pleasant 63 yo female in NAD. Nontoxic appearing. HENT: NCAT. No tanner sign. No racoon eyes. No otorrhea or rhinorrhea. Nares patent with minimal clear drainage, hearing grossly intact Eyes: PERRLA, 4mm bilaterally, unable to follow EOMI well, but no nystagmus seen on the exam. Anicteric. No ptosis. Neuro: Awake, alert, and oriented x 3; face symmetric, speech fluent. CN ll-Xll intact bilaterally. Neck: Supple, no tenderness, step off, or crepitus. 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 No garcia documented in this encounter [facility] 01-08-2024 Instructions Mina Ortiz MD - 01/08/2024 9:16 AM EDT Continue carbidopa/levodopa 25/100 mg to 2 tablet 3 times a day. Monitor for any nausea, dizziness, confusion, sleep attacks, or behavioral changes. Keep well-hydrated, increase dietary fibers, and avoid sudden changes in position. Therapy and institute fall precautions. Iron supplement with vitamin C. We will see her for follow-up visit around 12 months. documented in this encounter [facility] 01-08-2024 History of Present illness Narrative Neurology Outpatient Consult [facility] [address] [place] [address] (phone)/[phone] (fax) Patient: Shaji Esquivel Date of : 1960 Primary Care Provider: Antwan Maharaj MD Assessment/Plan: Patient with history of chronic gait abnormality since around 2013. She will occasionally stumble. She does not use any assistive devices. She has clinical features suggestive of parkinsonism including a coarse resting tremors in the left arm, diffuse bradykinesia, cogwheel rigidity, hypomimia, decreased blink rate, sparse hypophonic voice, shuffling gait and postural instability. Medication induced parkinsonism which is probably less likely with her abnormal DaTscan. Idiopathic Parkinson's disease with schizophrenia or diffuse Lewy body disease are possibilities. Her DaTscan was positive suggesting dopaminergic deficit. She has history of cognitive dysfunction, hallucination, and parkinsonism. She does have history of chronic schizophrenia which might also cause hallucination. According to caregivers, cognitive function has not changed since 2012. She is independent with feeding although needed assistance with other activities of daily living. Her bowel movements seems to be regular and she denies any anosmia. Therapeutic lumbar puncture showed significant improvement in her gait. Caregiver described improvement in posture but not much on her gait. We started her on Sinemet 25/100 mg 3 times a day. The dose was adjusted to Sinemet 25/100 mg 2 tablet 3 times a day. There seem to be some improvement in her gait and bradykinesia. Labs/Imaging/Ancillary test: Vitamin B12 is 322. Serum iron is 44. Ferritin is 5. Hemoglobin A1c 7.3. Triglyceride is 143. LDL is 45. TSH is 5.67. CSF protein is 49. CSF glucose normal. CSF VDRL is nonreactive. CSF WBCs 5. CSF culture was negative. DaTscan April 2022: Abnormal DaTscan. 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 Brain MRI September 06, 2021: Moderate nonspecific periventricular and subcortical T2 flair hyperintensity most likely reflect chronic small vessel ischemic changes. Moderate dilatation of the lateral and third greater than fourth ventricles likely symptomatic due to global parenchymal volume loss. Given relative effacement of the subarachnoid space over the vertex, superimposed adult hydrocephalus cannot be excluded. Impression: Parkinsonism consider idiopathic Parkinson's disease or Lewy body dementia Hypertension Hyperlipidemia Hypothyroidism Diabetes mellitus Iron deficiency anemia History of fall with a small right anterior temporal cortical contusion November 2023 Suggestion: Continue carbidopa/levodopa 25/100 mg to 2 tablet 3 times a day. Monitor for any nausea, dizziness, confusion, sleep attacks, or behavioral changes. Keep well-hydrated, increase dietary fibers, and avoid sudden changes in position. Therapy and institute fall precautions. Iron supplement with vitamin C. Monitor for any worsening hallucinations. Keep mentally and physically active. Monitor cognitive function, activities of daily living, or behavior changes. We will see her for follow-up visit around 12 months. Diagnostic impression, plans, and suggestions were explained and discussed. Records from the referring physician were reviewed. Clinical imaging study/ labs/medical tests were ordered/reviewed. Indications, risk, complications, side effects and alternatives of medications/therapeutics were explained and discussed. Please monitor closely for any untoward side effects or complications of medications. Questions and concerns were addressed. Please call or contact us for any problems. This note was created in part using a speech-recognition software. Time Code: 45 minutes 1. Preparation for patient's visit (reviewing previous chart, current medical records, previous history, exam, tests, procedures, and medications) 2. Face to face encounter obtaining history from the patient/family/caregivers; performing evaluation and examination; discussing tests and procedure results, medications and therapeutic options, side effects and complications of medications and procedures. Ordering medications, tests, or procedures; referring and communicating with other physicians, healthcare professionals; counseling and education of the patient/family/caregiver; independently interpreting results (tests, labs, procedures, imaging) and communicating and explaining results to the patient/family/caregiver. 3. Coordination of care; preparing and printing discharge instruction and any educational material for the patient and caregivers. Documenting clinical information in the electronic and other health records. Reviewing OARRS as needed. Orders Placed This Encounter estradioL (ESTRACE) 0.01 % (0.1 mg/gram) vaginal cream DISCONTD: carbidopa-levodopa (Sinemet) 25-100 mg per tablet carbidopa-levodopa (Sinemet) 25-100 mg per tablet Subjective (CC/HPI): Patient came for follow-up neurological evaluation accompanied by her caregiver who knows her for at least 10 years. She mention gradual gait abnormalities since 2013. She will occasionally stumble and shuffles. She has mild tremors on the left arm. She does not use any assistive devices. No back pain or radicular symptoms. No bladder or bowel problems. Her cognitive function has not changed over the years. She has history of schizophrenia and occasionally has visual and auditory hallucinations. She has no anosmia but has constipation. She is unreliable and cannot contribute to any historical information. She has no history of head injury, TIA or stroke. She has been on chronic Zyprexa therapy. 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 Therapeutic lumbar puncture showed no dramatic improvement of her gait. Her DaTscan was abnormal. We started her on Sinemet 3 times a day which seems to have helped. The dose was titrated. No side effects were reported. Since last visit, she accidentally fell walking on a sidewalk. She sustained a right anterior temporal contusion. She is undergoing physical therapy and recommended a walker. Except for feeding, she needs assistance with activities of daily living. Past medical history include: Hypertension, hyperlipidemia, diabetes, thyroid dysfunction. Social history: No alcohol, tobacco, or recreational drug use. Family history: Positive for alcoholism. ROS: All systems reviewed and negative except pertinent positives and negatives documented in the HPI and below. Objective: BP (!) 149/81 (BP Location: Right arm, Patient Position: Sitting, BP Cuff Size: Adult) Pulse 96 Resp 16 SpO2 96% Patient is awake and alert. Patient is oriented to person and her name.she is able to name objects and repeat words and phrases. Attention and comprehension were intact. Speech is sparse, monotonous and hypophonic. Language is intact. Pupils are 4 mm equally reactive to light. No ptosis, nystagmus, or gaze deviation. Face is symmetrical and facial sensation is intact. Hearing is grossly intact. Gross strength in the upper and lower extremity were 5/5. Normal muscle tone and bulk. No muscle fasciculations. Gross sensory is grossly intact to primary modalities. She has coarse resting tremor more noticeable on the left thumb with diffuse bradykinesia, rigidity, hypomimia, decreased blink rate. No myoclonus or other abnormal involuntary movements. Deep tendon reflexes are symmetrical including ankle jerks. No ankle clonus. Toes are downgoing on plantar stimulation. documented in this encounter [facility] 01-08-2024 Note Neurology Outpatient Consult [facility] [address] [place] [address] (phone)/[phone] (fax) Patient: Shaji Esquivel Date of : 1960 Primary Care Provider: Antwan Maharaj MD Assessment/Plan: Patient with history of chronic gait abnormality since around 2013. She will occasionally stumble. She does not use any assistive devices. She has clinical features suggestive of parkinsonism including a coarse resting tremors in the left arm, diffuse bradykinesia, cogwheel rigidity, hypomimia, decreased blink rate, sparse hypophonic voice, shuffling gait and postural instability. Medication induced parkinsonism which is probably less likely with her abnormal DaTscan. Idiopathic Parkinson's disease with schizophrenia or diffuse Lewy body disease are possibilities. Her DaTscan was positive suggesting dopaminergic deficit. She has history of cognitive dysfunction, hallucination, and parkinsonism. She does have history of chronic schizophrenia which might also cause hallucination. According to caregivers, cognitive function has not changed since 2012. She is independent with feeding although needed assistance with other activities of daily living. Her bowel movements seems to be regular and she denies any anosmia. Therapeutic lumbar puncture showed significant improvement in her gait. Caregiver described improvement in posture but not much on her gait. We started her on Sinemet 25/100 mg 3 times a day. The dose was adjusted to Sinemet 25/100 mg 2 tablet 3 times a day. There seem to be some improvement in her gait and bradykinesia. Labs/Imaging/Ancillary test: Vitamin B12 is 322. Serum iron is 44. Ferritin is 5. Hemoglobin A1c 7.3. Triglyceride is 143. LDL is 45. TSH is 5.67. CSF protein is 49. CSF glucose normal. CSF VDRL is nonreactive. CSF WBCs 5. CSF culture was negative. DaTscan April 2022: Abnormal DaTscan. 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 Brain MRI September 06, 2021: Moderate nonspecific periventricular and subcortical T2 flair hyperintensity most likely reflect chronic small vessel ischemic changes. Moderate dilatation of the lateral and third greater than fourth ventricles likely symptomatic due to global parenchymal volume loss. Given relative effacement of the subarachnoid space over the vertex, superimposed adult hydrocephalus cannot be excluded. Impression: Parkinsonism consider idiopathic Parkinson's disease or Lewy body dementia Hypertension Hyperlipidemia Hypothyroidism Diabetes mellitus Iron deficiency anemia History of fall with a small right anterior temporal cortical contusion November 2023 Suggestion: Continue carbidopa/levodopa 25/100 mg to 2 tablet 3 times a day. Monitor for any nausea, dizziness, confusion, sleep attacks, or behavioral changes. Keep well-hydrated, increase dietary fibers, and avoid sudden changes in position. Therapy and institute fall precautions. Iron supplement with vitamin C. Monitor for any worsening hallucinations. Keep mentally and physically active. Monitor cognitive function, activities of daily living, or behavior changes. We will see her for follow-up visit around 12 months. Diagnostic impression, plans, and suggestions were explained and discussed. Records from the referring physician were reviewed. Clinical imaging study/ labs/medical tests were ordered/reviewed. Indications, risk, complications, side effects and alternatives of medications/therapeutics were explained and discussed. Please monitor closely for any untoward side effects or complications of medications. Questions and concerns were addressed. Please call or contact us for any problems. This note was created in part using a speech-recognition software. Time Code: 45 minutes 1. Preparation for patient's visit (reviewing previous chart, current medical records, previous history, exam, tests, procedures, and medications) 2. Face to face encounter obtaining history from the patient/family/caregivers; performing evaluation and examination; discussing tests and procedure results, medications and therapeutic options, side effects and complications of medications and procedures. Ordering medications, tests, or procedures; referring and communicating with other physicians, healthcare professionals; counseling and education of the patient/family/caregiver; independently interpreting results (tests, labs, procedures, imaging) and communicating and explaining results to the patient/family/caregiver. 3. Coordination of care; preparing and printing discharge instruction and any educational material for the patient and caregivers. Documenting clinical information in the electronic and other health records. Reviewing OARRS as needed. Orders Placed This Encounter estradioL (ESTRACE) 0.01 % (0.1 mg/gram) vaginal cream DISCONTD: carbidopa-levodopa (Sinemet) 25-100 (more content not included)... [facility] 12-29-2023 History of Present illness Narrative Subjective Patient ID: Shaji Esquivel is a 63 y.o. female who presents for Follow-up (6 month/+Physical form). HPI Patient is here today for 6 mo follow up She fell forward onto her right side onto the concrete. Pt has had two recent falls, had a few rib fractures and a small IC. Has an appt with neurosurgery on 01/20 for follow up Review of Systems Complains of pain above right eye where she hit her head and wrist pain Objective BP 139/82 Pulse 101 Ht 1.575 m (5' 2) Wt 70.8 kg (156 lb) BMI 28.53 kg/m Physical Exam Constitutional: General: She is not in acute distress. Appearance: Normal appearance. She is not toxic-appearing. HENT: Head: Normocephalic and atraumatic. Right Ear: Tympanic membrane, ear canal and external ear normal. Left Ear: Tympanic membrane, ear canal and external ear normal. Nose: Nose normal. Mouth/Throat: Mouth: Mucous membranes are moist. Pharynx: Oropharynx is clear. Eyes: Extraocular Movements: Extraocular movements intact. Conjunctiva/sclera: Conjunctivae normal. Pupils: Pupils are equal, round, and reactive to light. Cardiovascular: Rate and Rhythm: Normal rate and regular rhythm. Heart sounds: No murmur heard. No friction rub. Pulmonary: Effort: Pulmonary effort is normal. Breath sounds: Normal breath sounds. Abdominal: General: Bowel sounds are normal. Palpations: Abdomen is soft. Musculoskeletal: General: No swelling. Normal range of motion. Cervical back: Normal range of motion. Skin: General: Skin is warm and dry. Neurological: Mental Status: She is alert. Psychiatric: Mood and Affect: Mood normal. Thought Content: Thought content normal. Judgment: Judgment normal. Assessment/Plan Problem List Items Addressed This Visit Hypertension - Primary Disease of thyroid gland GERD (gastroesophageal reflux disease) Chronic kidney disease Parkinson disease (Multi) Acquired hypothyroidism Schizophrenia (Multi) Other Visit Diagnoses Type 2 diabetes mellitus without complication, without long-term current use of insulin (Multi) Relevant Orders Hemoglobin A1C TSH with reflex to Free T4 if abnormal Comprehensive Metabolic Panel Frequent falls , rib fractures and ICH - is scheduled for PT - scheduled for CT follow up and visit with neurosurgery 2. Schizophrenia - sees Dr Sabillon at [facility] - on cogentin - on remeron - on xyprexa 3. HTN, Controlled - continue norvasc 4. HLD - continue lipitpr 10mg po daily 5. Parkinsons - follows with Dr Ortiz - on Sinemnet 6. DMII - last A1c was 7.2 03/31, 7.9% , ordered updated - continue januvia 100mg po daily - continue metformin - continue glipizide 7. Hypothyroidism -continue snythroid 8. GERD - on ppi Final diagnoses: [I10] Primary hypertension [E11.9] Type 2 diabetes mellitus without complication, without long-term current use of insulin (Multi) [E03.9] Acquired hypothyroidism [E07.9] Disease of thyroid gland [K21.9] Gastroesophageal reflux disease without esophagitis [N18.31] Stage 3a chronic kidney disease (Multi) [F20.9] Schizophrenia, unspecified type (Multi) [G20.A1] Parkinson's disease without dyskinesia or fluctuating manifestations (Multi) documented in this encounter [facility] Work Phone: 12-24-2023 Note [facility] [address] (11) [facility] [address] [facility] [id number] Shaji Esquivel is a 63 y.o. female being seen today, 12/24/23, Chief Complaint Patient presents with Right Wrist - Follow-up [chief complaint] right wrist pain HPI Dictation: Patient seen in inpatient consult history of falling injuring her right wrist initially felt to show disruption of the distal radial ulnar joint with dorsal displacement of the distal ulna however CT was unremarkable should be noted she has contractures of the right hand from Parkinson's [hpi] Physical Exam Dictation: [PE] on exam the wrist appears to be symmetric with the left side the distal ulna is prominent on both arms Assessment and Plan Dictation: [AP] Hardin to be soft tissue injury only discontinue the brace return as needed I have reviewed all relevant histories, medications, allergies, and problem list items with Shaji Esquivel during this visit. Review of Systems Constitutional: Negative for chills and fever. HENT: Negative for congestion. Respiratory: Negative for shortness of breath. Cardiovascular: Negative for chest pain. Gastrointestinal: Negative for diarrhea, nausea and vomiting. Neurological: Negative for headaches. Psychiatric/Behavioral: Negative for behavioral problems. Ht 5' 5 BMI 25.63 kg/m Imaging: No results found. 1. Right wrist pain Return if symptoms worsen or fail to improve. Sachin Morales MD AUTHENTICATED BY SACHIN MORALES, ON 12/24/2023 10:08:02 [facility] 12-24-2023 History of Present illness Narrative [facility] [address] (11) [facility] [address] [facility] [id number] Shaji Esquivel is a 63 y.o. female being seen today, 12/24/23, Chief Complaint Patient presents with Right Wrist - Follow-up [chief complaint] right wrist pain HPI Dictation: Patient seen in inpatient consult history of falling injuring her right wrist initially felt to show disruption of the distal radial ulnar joint with dorsal displacement of the distal ulna however CT was unremarkable should be noted she has contractures of the right hand from Parkinson's [hpi] Physical Exam Dictation: [PE] on exam the wrist appears to be symmetric with the left side the distal ulna is prominent on both arms Assessment and Plan Dictation: [AP] Hardin to be soft tissue injury only discontinue the brace return as needed I have reviewed all relevant histories, medications, allergies, and problem list items with Shaji Esquivel during this visit. Review of Systems Constitutional: Negative for chills and fever. HENT: Negative for congestion. Respiratory: Negative for shortness of breath. Cardiovascular: Negative for chest pain. Gastrointestinal: Negative for diarrhea, nausea and vomiting. Neurological: Negative for headaches. Psychiatric/Behavioral: Negative for behavioral problems. Ht 5' 5 BMI 25.63 kg/m Imaging: No results found. 1. Right wrist pain Return if symptoms worsen or fail to improve. Sachin Morales MD documented in this encounter [facility] 12-17-2023 History of Present illness Narrative Subjective Patient ID: Shaji Esquivel is a 63 y.o. female who presents for Hospital Follow-up (Family states she is healing well and have no major concerns. Wanting to discuss possible helmet for future falls ). HPI Here today to follow up with ER visit post fall. Wrist is fractured and in a brace, ribs are fractured but healing Has follow ups with ortho, neuro, and neurosurgery. Caregivers report she is up moving around, eating and drinking per her normal. Hospital recommended that she follows up with PT/OT/ST and the orders were supposed to be placed in the hospital however, I placed some new ones today to be sure they are in. Concerns for future falls and wanting a safety helmet, order placed as well as written order in case RN needs to take it to a specialty pharmacy. Review of Systems Constitutional: Negative for activity change and fatigue. Musculoskeletal: R rib pain Neurological: Positive for weakness. Negative for light-headedness and headaches. Objective BP 144/78 Pulse 72 Ht 1.575 m (5' 2) Wt 69.9 kg (154 lb) BMI 28.17 kg/m Physical Exam Cardiovascular: Rate and Rhythm: Normal rate and regular rhythm. Heart sounds: Normal heart sounds. Pulmonary: Breath sounds: Normal breath sounds. Abdominal: Tenderness: There is no abdominal tenderness. There is no guarding. Skin: General: Skin is warm. Capillary Refill: Capillary refill takes less than 2 seconds. Neurological: Mental Status: She is alert. Mental status is at baseline. Assessment/Plan Problem List Items Addressed This Visit ICD-10-CM Parkinson disease (Multi) - Primary G20.A1 Relevant Orders Referral to Physical Therapy Referral to Occupational Therapy Referral to Speech Therapy Other Visit Diagnoses Codes Subarachnoid hemorrhage (Multi) I60.9 Relevant Orders Soft Shell Safety Helmet Subarachnoid Hemorrhage -Neuro and Neurosurg apt -Continue neurological checks Rib fracture -Healing on its own -Tylenol for pain Dislocation of right wrist -Tylenol for pain -Wrist splint -Ortho follow up -Reduction done successfully in the ER Frequent falls -Soft shell helmet ordered -PT/OT referrals placed documented in this encounter [facility] Work Phone: 12-16-2023 Note Trauma Follow Up Not e Patient Name: Shaji Esquivel [facility]: [id number] [id number] Chief Complaint: [facility]: 63-year-old female with a history of a mechanical fall on concrete that occurred on 12/03 arrived to the hospital for evaluation. She was found to have right ulnar fracture, subarachnoid hemorrhage, and right 5, 6 rib fractures. ROS: History obtained from chart review and the patient/patient's caregiver General ROS: Denies fever, malaise Neurological ROS: No PCS, No paresthesia, No paralysis Ophthalmic ROS: No eye pain. No vision changes HEENT ROS: No rhinorrhea, hearing loss Respiratory ROS: Denies dyspnea, Denies cough Cardiovascular ROS: Denies angina, dyspnea on exertion Gastrointestinal ROS: Denies NV, abdominal pain, or changes in bowel habits Genito-Urinary ROS: Denies dysuria, trouble voiding, or hematuria Musculoskeletal ROS: Right arm pain Dermatological ROS: No rash, lesions Reviewed Data: Lab, Radiology, Meds, Allergies Reviewed PHYSICAL EXAM: There were no vitals taken for this visit. General appearance: Alert and oriented, at baseline mental status. Head: Normocephalic, atraumatic. Mouth without lesion, normal dentition. External ear normal, no hearing loss. Eyes: Pupils equal, round, reactive to light and accomodation. Neurologic: Alert and oriented X 3. Follows commands. CN 2-12 grossly intact. Denies paresthesia. Pulmonary: Clear to auscultation bilaterally, without rhonchi, wheezes or rales. Cardiac: Regular rate and rhythm, S1, S2 normal, no murmur, click, rub or gallop. Distal pulses 2+ bilaterally Abdomen: Soft, non-tender to palpation. Bowel sounds normal x 4 quadrants. No palpable masses or organomegaly. No rebound or guarding. GI/: Voiding without difficulty + flatus + BM - nausea - emesis Tolerating diet. Extremities: Right arm in cock up wrist splint. Assessment/Plan: Right ulnar fracture: Evaluated by Ortho inpatient, nonoperative, follow-up with orthopedic surgery outpatient. Subarachnoid hemorrhage: Neuro intact, GCS 15, no AC/AP medications, neurosurgery evaluated patient and signed off. They would like her to follow-up in 4-[address] head ordered prior to the appointment. Right 5, 6 rib fractures: Pain controlled, on room air, no acute issues. AUTHENTICATED BY KIRK GODFREY, ON 12/16/2023 14:14:28 [facility] 12-16-2023 History of Present illness Narrative Trauma Follow Up Note Patient Name: Shaji Esquivel MR #: [id number] Chief Complaint: [facility]: 63-year-old female with a history of a mechanical fall on concrete that occurred on 12/03 arrived to the hospital for evaluation. She was found to have right ulnar fracture, subarachnoid hemorrhage, and right 5, 6 rib fractures. ROS: History obtained from chart review and the patient/patient's caregiver General ROS: Denies fever, malaise Neurological ROS: No PCS, No paresthesia, No paralysis Ophthalmic ROS: No eye pain. No vision changes HEENT ROS: No rhinorrhea, hearing loss Respiratory ROS: Denies dyspnea, Denies cough Cardiovascular ROS: Denies angina, dyspnea on exertion Gastrointestinal ROS: Denies NV, abdominal pain, or changes in bowel habits Genito-Urinary ROS: Denies dysuria, trouble voiding, or hematuria Musculoskeletal ROS: Right arm pain Dermatological ROS: No rash, lesions Reviewed Data: Lab, Radiology, Meds, Allergies Reviewed PHYSICAL EXAM: There were no vitals taken for this visit. General appearance: Alert and oriented, at baseline mental status. Head: Normocephalic, atraumatic. Mouth without lesion, normal dentition. External ear normal, no hearing loss. Eyes: Pupils equal, round, reactive to light and accomodation. Neurologic: Alert and oriented X 3. Follows commands. CN 2-12 grossly intact. Denies paresthesia. Pulmonary: Clear to auscultation bilaterally, without rhonchi, wheezes or rales. Cardiac: Regular rate and rhythm, S1, S2 normal, no murmur, click, rub or gallop. Distal pulses 2+ bilaterally Abdomen: Soft, non-tender to palpation. Bowel sounds normal x 4 quadrants. No palpable masses or organomegaly. No rebound or guarding. GI/: Voiding without difficulty + flatus + BM - nausea - emesis Tolerating diet. Extremities: Right arm in cock up wrist splint. Assessment/Plan: Right ulnar fracture: Evaluated by Ortho inpatient, nonoperative, follow-up with orthopedic surgery outpatient. Subarachnoid hemorrhage: Neuro intact, GCS 15, no AC/AP medications, neurosurgery evaluated patient and signed off. They would like her to follow-up in 4-[address] head ordered prior to the appointment. Right 5, 6 rib fractures: Pain controlled, on room air, no acute issues. documented in this encounter [facility] 12-05-2023 Note Neurosurgery Inpatie nt Follow-up 12/05/2023 Vel Benavidez MD [facility] Patient: Shaji Esquivel Date of : 1960 (63 y.o.) PCP: Antwan Maharaj MD SUBJECTIVE: History Since Last Visit: Patient voices no complaints of headaches. She complains of pain only at the contusion site over the right forehead and chin area. OBJECTIVE: Physical Examination: BP (!) 143/82 Pulse 84 Temp 98.6 degrees F (37 degrees C) (Oral) Resp 16 Ht 5' 5 Wt 68.9 kg (152 lb) SpO2 94% BMI 25.29 kg/m She is oriented only to name. She is sitting up in the bedside chair awake and alert. No new changes in her neurological examination. Laboratory and Additional Data Reviewed: Chart summary reviewed. Follow-up CT scan shows stable contusion of the left anterior temporal lobe tip. ASSESSMENT/PLAN: 63-year-old lady status post a fall with a small right temporal cortical contusion. Follow-up CT is stable as well as her neurological examination. She can be discharged from our standpoint and recommend a follow-up in 4 to 6 weeks in the clinic. Outpatient head CT to be done prior to the office visit. Will sign off at this time. AUTHENTICATED BY VEL BENAVIDEZ, ON 12/05/2023 12:30:[address] [facility] 12-04-2023 Note Pre-Procedure Physic ruthy Note for Procedures with Moderate or Deep Sedation Patient Name: Shaji Esquivel MR #: [id number] : 1960 Informed Consent process completed. I have reviewed the H&P and there are no changes. Heart, Lungs, and Airway assessment completed. Sedation Plan: Moderate Pre-Sedation Assessment ASA Classification: ASA 3: A patient with severe systemic disease. Mallampati Classification: Class II: Partial uvula and soft palate are visualized 12/04/2023 3:09 PM Duc Jaramillo M.D. Attending Physician [facility] 12/04/2023 Portions of this note may have been dictated utilizing voice recognition software. Unfortunately this leads to occasional typographical errors. If questions arise please do not hesitate to contact my office for clarification. AUTHENTICATED BY DUC JARAMILLO, ON 12/04/2023 15:09:[address] [facility] 10-14-2023 History of Present illness Narrative Images from the original note were not included. Elizabeth Kimble DPM Patient Name: Shaji Esquivel. . Date of : 1960, 63 y.o.. Gender: female. Subjective: Patient is a pleasant 63-year-old female who presents to clinic for comprehensive diabetic foot examination. She is complaining of painful right great toe nail. Patient's aide/nurse by her side stating that it is difficult for her to cut her right great toenail. She also admits to numbness and tingling to her toes. No other pedal complaints at this time. Reports last hemoglobin A1c of 7.2%. Denies fevers, chills, nausea, vomiting, chest pain, shortness of breath, or any other constitutional symptoms. Past Medical History: Diagnosis Date Diabetes (HCC) Disease of thyroid gland High cholesterol Hypertension Past Surgical History: Procedure Laterality Date XR LUMBAR PUNCTURE (DIAGNOSTIC) WITH GAIT ANALYSIS 04/17/2022 XR LUMBAR PUNCTURE (DIAGNOSTIC) WITH GAIT ANALYSIS 04/17/2022 DIAGNOSTICS Social History Socioeconomic History Marital status: Single Tobacco Use Smoking status: Never Smokeless tobacco: Never Vaping Use Vaping Use: Never used Substance and Sexual Activity Alcohol use: Not Currently Drug use: Not Currently Physical Examination: BP (!) 159/83 (BP Location: Left arm, Patient Position: Sitting, BP Cuff Size: Adult) Pulse 96 Temp 97 F (36.1 C) (Temporal) LMP (Approximate) General Appearance: Alert, cooperative, no distress, appears stated age. Podiatric Exam Vascular: DP and PT pulses are palpable 2/4. Capillary refill time is less than 3 secs to distal digits. Skin temperature is warm to warm from proximal tibial tuberosity to distal digit. Neurological: Gross sensation is intact. Protective sensation is diminished using the [place] Piotr monofilament. Dermatologic: The right great toenail is elongated, thickened, dystrophic and mycotic subungual debris. Remaining toenails are dystrophic. Interdigital spaces are clean dry and intact. Preulcerative lesions noted subfirst and second metatarsal heads bilaterally. Musculoskeletal: Pain on palpation to the right great toenail. Patient is able to wiggle digits. Ankle joint range of motion is intact. Compartments soft and compressible. No calf pain Diagnoses: 1. Diabetic peripheral neuropathy (HCC) 2. Onychodystrophy 3. Onychomycosis 4. Pain due to onychomycosis of toenail of right foot Assessment/Plan: Patient was seen and evaluated. Discussed all clinical findings. Patient has numbness and tingling to her toes and patient's aide reports that she is somewhat unstable at times, therefore I recommended diabetic shoes for her. An order for diabetic shoes was placed for the patient as it is medically necessary given her diabetic peripheral neuropathy, preulcerative lesions and risk for ulceration. Qualification for Diabetic Shoes per Medicare Guidelines (minimum 06/14): [] History of amputation [] History or active ulceration [x] History of pre-ulcerative callus [x] Peripheral neuropathy with evidence of callus formation [] Foot deformity [] Poor circulation Patient has onychomycosis of nails x 1 and onychodystrophy x 9 which require mechanical debridement. Consent was obtained prior to debridement of all toenails on the right and left foot using podiatric nail nippers down to appropriate thickness and length. Patient expressed pain relief following the procedure. Patient qualifies for nail care due to at risk foot criteria based on Q9 Modifier secondary to diabetic peripheral neuropathy. All questions were answered to patient satisfaction. Patient understands to call with any questions or concerns. Follow-up in 3 months for at risk foot care. This note was partially created using voice recognition software and is inherently subject to errors including those of syntax and sound-alike substitutions which may escape proofreading. In such instances, original meaning may be extrapolated by contextual derivation. Elizabeth Kimble DPM, MS Podiatric Physician & Surgeon documented in this encounter [facility] 07-15-2023 History of Present illness Narrative Images from the original note were not included. NEW Patient Visit Elizabeth Kimble DPM Patient Name: Shaji Esquivel. . Date of : 1960, 62 y.o.. Gender: female. Subjective: Patient is a pleasant 62-year-old female who presents to clinic for comprehensive diabetic foot examination. She is complaining of painful right great toe nail. Patient's aide/nurse by her side stating that it is difficult for her to cut her right great toenail. No other pedal complaints at this time. Reports last hemoglobin A1c of 7.2%. Denies fevers, chills, nausea, vomiting, chest pain, shortness of breath, or any other constitutional symptoms. Past Medical History: Diagnosis Date Diabetes (HCC) Disease of thyroid gland High cholesterol Hypertension Past Surgical History: Procedure Laterality Date XR LUMBAR PUNCTURE (DIAGNOSTIC) WITH GAIT ANALYSIS 04/17/2022 XR LUMBAR PUNCTURE (DIAGNOSTIC) WITH GAIT ANALYSIS 04/17/2022 [facility] Social History Socioeconomic History Marital status: Single Tobacco Use Smoking status: Never Smokeless tobacco: Never Vaping Use Vaping Use: Never used Substance and Sexual Activity Alcohol use: Not Currently Drug use: Not Currently Physical Examination: BP 136/80 (BP Location: Right arm, Patient Position: Sitting, BP Cuff Size: Adult) Pulse 89 Temp 97.9 F (36.6 C) (Infrared) General Appearance: Alert, cooperative, no distress, appears stated age. Podiatric Exam Vascular: DP and PT pulses are palpable 2/4. Capillary refill time is less than 3 secs to distal digits. Skin temperature is warm to warm from proximal tibial tuberosity to distal digit. Neurological: Gross sensation is intact. Protective sensation is diminished using the [place] Piotr monofilament. Dermatologic: The right great toenail is elongated, thickened, dystrophic and mycotic subungual debris. Remaining toenails are dystrophic. Interdigital spaces are clean dry and intact. Musculoskeletal: Pain on palpation to the right great toenail. Patient is able to wiggle digits. Ankle joint range of motion is intact. Compartments soft and compressible. No calf pain Diagnoses: 1. Comprehensive diabetic foot examination, type 2 DM, encounter for ([facility]) 2. Diabetic peripheral neuropathy ([facility]) 3. Onychodystrophy 4. Onychomycosis 5. Pain due to onychomycosis of toenail of right foot Assessment/Plan: Patient was seen and evaluated. Discussed all clinical findings. A comprehensive diabetic foot examination was performed. Patient is doing well and has no open wounds. No signs of infection. Reviewed patient's hemoglobin A1c noted to be 7.2% . Patient is to continue to follow-up with his primary care physician every 6 months. Patient was instructed to check his feet once daily and to wear good supportive shoes. Patient has onychomycosis of nails x 1 and onychodystrophy x 9 which require mechanical debridement. Consent was obtained prior to debridement of all toenails on the right and left foot using podiatric nail nippers down to appropriate thickness and length. Patient expressed pain relief following the procedure. Patient qualifies for nail care due to at risk foot criteria based on Q9 Modifier secondary to diabetic peripheral neuropathy. All questions were answered to patient satisfaction. Patient understands to call with any questions or concerns. Follow-up in 3 months for at risk foot care. This note was partially created using voice recognition software and is inherently subject to errors including those of syntax and sound-alike substitutions which may escape proofreading. In such instances, original meaning may be extrapolated by contextual derivation. Elizabeth Kimble DPM, MS Podiatric Physician & Surgeon documented in this encounter [facility] 06-25-2023 Telephone encounter Note I called Fatuma at [phone]. She gave me the fax number of [phone]> Fax sent. She stated understanding. [facility] 06-25-2023 Miscellaneous Notes I called Fatuma at [phone]. She gave me the fax number of [phone]> Fax sent. She stated understanding. documented in this encounter [facility] 06-23-2023 Instructions Mina Ortiz MD - 06/23/2023 11:05 AM EST Increase Sinemet 25/100 mg to 2 tablet 3 times a day. Monitor for any nausea, dizziness, confusion, sleep attacks, or behavioral changes. Keep well-hydrated, increase dietary fibers, and avoid sudden changes in position. Regular exercise and institute fall precautions. Iron supplement with vitamin C. We will see her for follow-up visit around 6 months. documented in this encounter [facility] 06-23-2023 History of Present illness Narrative Neurology Outpatient Consult [facility] [address] [place] [address] (phone)/[phone] (fax) Patient: Shaji Esquivel Date of : 1960 Primary Care Provider: Antwan Maharaj MD Assessment/Plan: Patient with history of chronic gait abnormality since around 2013. She will occasionally stumble. She does not use any assistive devices. She has clinical features suggestive of parkinsonism including a coarse resting tremors in the left arm, diffuse bradykinesia, cogwheel rigidity, hypomimia, decreased blink rate, sparse hypophonic voice, shuffling gait and postural instability. Medication induced parkinsonism which is probably less likely with her abnormal DaTscan. idiopathic Parkinson's disease with schizophrenia or diffuse body disease are possibilities. Her DaTscan was positive suggesting dopaminergic deficit. She has history of cognitive dysfunction, hallucination, and parkinsonism. She does have history of chronic schizophrenia which might also cause hallucination. According to caregivers, cognitive function has not changed since 2012. She now has incontinence. Therapeutic lumbar puncture showed significant improvement in her gait. Caregiver described improvement in posture but not much on her gait. We started her on Sinemet 25/100 mg 3 times a day. There seem to be some improvement in her gait and bradykinesia. We will increase the dose to 2 tablet 3 times a day watching carefully for any increased orthostatic symptoms, dyskinesias, or confusion. Labs/Imaging/Ancillary test: Vitamin B12 is 322. Serum iron is 44. Ferritin is 5. Hemoglobin A1c 7.3. Triglyceride is 143. LDL is 45. TSH is 5.67. CSF protein is 49. CSF glucose normal. CSF VDRL is nonreactive. CSF WBCs 5. CSF culture was negative. DaTscan April 2022: Abnormal DaTscan. 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 Brain MRI September 06, 2021: Moderate nonspecific periventricular and subcortical T2 flair hyperintensity most likely reflect chronic small vessel ischemic changes. Moderate dilatation of the lateral and third greater than fourth ventricles likely symptomatic due to global parenchymal volume loss. Given relative effacement of the subarachnoid space over the vertex, superimposed adult hydrocephalus cannot be excluded. Impression: Parkinsonism consider idiopathic Parkinson's disease or Lewy body dementia Hypertension Hyperlipidemia Hypothyroidism Diabetes mellitus Iron deficiency anemia Suggestion: Increase carbidopa/levodopa 25/100 mg to 2 tablet 3 times a day. Monitor for any nausea, dizziness, confusion, sleep attacks, or behavioral changes. Keep well-hydrated, increase dietary fibers, and avoid sudden changes in position. Therapy and institute fall precautions. Iron supplement with vitamin C. We will see her for follow-up visit around 6 months. Diagnostic impression, plans, and suggestions were explained and discussed. Records from the referring physician were reviewed. Clinical imaging study/ labs/medical tests were ordered/reviewed. Indications, risk, complications, side effects and alternatives of medications/therapeutics were explained and discussed. Please monitor closely for any untoward side effects or complications of medications. Questions and concerns were addressed. Please call or contact us for any problems. This note was created in part using a speech-recognition software. Time Code: 34 minutes 1. Preparation for patient's visit (reviewing previous chart, current medical records, previous history, exam, tests, procedures, and medications) 2. Face to face encounter obtaining history from the patient/family/caregivers; performing evaluation and examination; discussing tests and procedure results, medications and therapeutic options, side effects and complications of medications and procedures. Ordering medications, tests, or procedures; referring and communicating with other physicians, healthcare professionals; counseling and education of the patient/family/caregiver; independently interpreting results (tests, labs, procedures, imaging) and communicating and explaining results to the patient/family/caregiver. 3. Coordination of care; preparing and printing discharge instruction and any educational material for the patient and caregivers. Documenting clinical information in the electronic and other health records. Reviewing OARRS as needed. Orders Placed This Encounter conjugated estrogens (Premarin) vaginal cream carbidopa-levodopa (Sinemet) 25-100 mg per tablet Subjective (CC/HPI): Patient came for follow-up neurological evaluation accompanied by her caregiver who knows her for at least 10 years. She mention gradual gait abnormalities since 2013 (8 years ago). She will occasionally stumble and shuffles. She has mild tremors on the left arm. She does not use any assistive devices. No back pain or radicular symptoms. No bladder or bowel problems. Her cognitive function has not changed over the years. She has history of schizophrenia and occasionally has visual and auditory hallucinations. She has no anosmia but has constipation. She is unreliable and cannot contribute to any historical information. She has no history of head injury, TIA or stroke. She has been on chronic Zyprexa therapy. 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 Therapeutic lumbar puncture showed no dramatic improvement of her gait. Her DaTscan was abnormal. We started her on Sinemet 3 times a day which seems to have helped. The dose will be titrated. No side effects were reported. Past medical history include: Hypertension, hyperlipidemia, diabetes, thyroid dysfunction. Social history: No alcohol, tobacco, or recreational drug use. Family history: Positive for alcoholism. ROS: All systems reviewed and negative except pertinent positives and negatives documented in the HPI and below. Objective: BP 122/88 (BP Location: Left arm, Patient Position: Sitting, BP Cuff Size: Adult) Pulse 83 SpO2 97% Patient is awake and alert. Patient is oriented to person and her name.Attention and comprehension were intact. Speech is sparse, monotonous and hypophonic. Language is intact. Pupils are 4 mm equally reactive to light. No ptosis, nystagmus, or gaze deviation. Face is symmetrical and facial sensation is intact. Hearing is grossly intact. Gross strength in the upper and lower extremity were 5/5. Normal muscle tone and bulk. No muscle fasciculations. Gross sensory is grossly intact to primary modalities. She has coarse resting tremor more noticeable on the left thumb than the right with accompanying diffuse bradykinesia, rigidity, hypomimia, decreased blink rate. No myoclonus or other abnormal involuntary movements. Deep tendon reflexes are symmetrical including ankle jerks. No ankle clonus. Toes are downgoing on plantar stimulation. documented in this encounter [facility] 04-21-2023 History of Present illness Narrative Subjective Patient ID: Shaji Esquivel is a 62 y.o. 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 HPI Patient is a 62 y.o. senior care patient who is here today to establish care. Patient has a pmhx of DMII, HTN, HLD, CKD, Hypothyroidism, Schizophrenia, Parkinsons Disease, GERD. She sees dr Arteaga at [facility] as well as Dr Ortiz for the parkinsons. She is ambulatory but unsteady Review of Systems Unable to do ROS due to pts mental status. Objective BP 127/78 Pulse 95 Ht 1.575 m (5' 2) Wt 59.9 kg (132 lb) BMI 24.14 kg/m Physical Exam Constitutional: General: She is not in acute distress. Appearance: Normal appearance. HENT: Head: Normocephalic. Nose: Nose normal. Mouth/Throat: Pharynx: No oropharyngeal exudate. Eyes: General: Right eye: No discharge. Left eye: No discharge. Extraocular Movements: Extraocular movements intact. Pupils: Pupils are equal, round, and reactive to light. Cardiovascular: Rate and Rhythm: Normal rate and regular rhythm. Heart sounds: No murmur heard. No gallop. Pulmonary: Effort: Pulmonary effort is normal. No respiratory distress. Breath sounds: Normal breath sounds. No wheezing. Musculoskeletal: General: No swelling. Skin: General: Skin is warm and dry. Coloration: Skin is not jaundiced. Neurological: Mental Status: She is alert. Mental status is at baseline. Cranial Nerves: No cranial nerve deficit. Comments: Pill rolling tremor in left hand present Psychiatric: Mood and Affect: Mood normal. Behavior: Behavior normal. Colonoscopy cologuard 08/01 Mammo 07/01, will order DEXA Pap 06/30 Flu shots 2022 COVID received PNA -- Shingles received Assessment/Plan Problem List Items Addressed This Visit Chronic kidney disease Parkinson disease Encounter for screening mammogram for malignant neoplasm of breast - Primary Acquired hypothyroidism Schizophrenia (CMS/HCC) Other Visit Diagnoses Type 2 diabetes mellitus without complication, without long-term current use of insulin (CMS/HCC) Schizophrenia - sees Dr Sabillon at [facility] - on cogentin - on remeron - on xyprexa 2. HTN, Controlled - continue norvasc 3. HLD - continue lipitpr 10mg po daily 4. Parkinsons - follows with Dr Ortiz - on Sinemnet 5. DMII - last A1c was 7.2 03/31 - continue januvia 100mg po daily 6. Hypothyroidism - continue snythroid 7. GERD - on ppi Final diagnoses: [Z12.31] Encounter for screening mammogram for malignant neoplasm of breast [E11.9] Type 2 diabetes mellitus without complication, without long-term current use of insulin (CMS/HCC) [E03.9] Acquired hypothyroidism [N18.31] Stage 3a chronic kidney disease (CMS/HCC) [G20.A1] Parkinson's disease without dyskinesia or fluctuating manifestations [F20.9] Schizophrenia, unspecified type (CMS/HCC) documented in this encounter [facility] Work Phone: 12-19-2022 Instructions Mina Ortiz MD - 12/19/2022 11:50 AM EDT Increase carbidopa levodopa dose to 25/100 mg 1-1/2 tablet 3 times a day. Monitor for any nausea, dizziness, increased confusion, impulsive behavior or behavior changes. Keep well-hydrated and avoid sudden changes in position. Increase dietary fibers and continue stool softener. Iron supplement with vitamin D daily. We will see her for follow-up visit around 6 months documented in this encounter [facility] 12-19-2022 History of Present illness Narrative Neurology Outpatient Consult [facility] [address] [place] [address] (phone)/[phone] (fax) Patient: Niva Eugenia Smail Date of : 1960 Primary Care Provider: Antwan Maharaj MD Assessment/Plan: Patient with history of chronic gait abnormality since around 2013. She will occasionally stumble. She does not use any assistive devices. She has clinical features suggestive of parkinsonism including a coarse resting tremors in the left arm, diffuse bradykinesia, cogwheel rigidity, hypomimia, decreased blink rate, sparse hypophonic voice, shuffling gait and postural instability. Medication induced parkinsonism which is probably less likely with her abnormal DaTscan. idiopathic Parkinson's disease with schizophrenia or diffuse body disease are possibilities. Her DaTscan was positive suggesting dopaminergic deficit. She has history of cognitive dysfunction, hallucination, and parkinsonism. She does have history of chronic schizophrenia which might also cause hallucination. According to caregivers, cognitive function has not changed since 2012. She now has incontinence. Therapeutic lumbar puncture showed some improvement in gait velocity, stride length, and decreased en bloc turning. Caregiver described improvement in posture but not much on her gait. We started her on Sinemet 25/100 mg 3 times a day. There seem to be some improvement in her gait and bradykinesia. We will increase the dose to 1-1/2 tablet 3 times a day watching carefully for any increased orthostatic symptoms or confusion. Labs/Imaging/Ancillary test: Vitamin B12 is 322. Serum iron is 44. Ferritin is 5. Hemoglobin A1c 7.3. Triglyceride is 143. LDL is 45. TSH is 5.67. CSF protein is 49. CSF glucose normal. CSF VDRL is nonreactive. CSF WBCs 5. CSF culture was negative. DaTscan April 2022: Abnormal DaTscan. 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 Brain MRI September 06, 2021: Moderate nonspecific periventricular and subcortical T2 flair hyperintensity most likely reflect chronic small vessel ischemic changes. Moderate dilatation of the lateral and third greater than fourth ventricles likely symptomatic due to global parenchymal volume loss. Given relative effacement of the subarachnoid space over the vertex, superimposed adult hydrocephalus cannot be excluded. Impression: Parkinsonism consider idiopathic Parkinson's disease or Lewy body dementia Hypertension Hyperlipidemia Hypothyroidism Diabetes mellitus Iron deficiency anemia Suggestion: Increase carbidopa/levodopa 25/100 mg to 1-1/2 tablet 3 times a day. Monitor for any nausea, dizziness, confusion, sleep attacks, or behavioral changes. Keep well-hydrated, increase dietary fibers, and avoid sudden changes in position. Therapy and institute fall precautions. Iron supplement with vitamin C. Please call us in 1 to 2 weeks for update on how she is doing with the medication. We will see her for follow-up visit around 6 months. Diagnostic impression, plans, and suggestions were explained and discussed. Records from the referring physician were reviewed. Clinical imaging study/ labs/medical tests were ordered/reviewed. Indications, risk, complications, side effects and alternatives of medications/therapeutics were explained and discussed. Please monitor closely for any untoward side effects or complications of medications. Questions and concerns were addressed. Please call or contact us for any problems. This note was created in part using a speech-recognition software. Time Code: 34 minutes 1. Preparation for patient's visit (reviewing previous chart, current medical records, previous history, exam, tests, procedures, and medications) 2. Face to face encounter obtaining history from the patient/family/caregivers; performing evaluation and examination; discussing tests and procedure results, medications and therapeutic options, side effects and complications of medications and procedures. Ordering medications, tests, or procedures; referring and communicating with other physicians, healthcare professionals; counseling and education of the patient/family/caregiver; independently interpreting results (tests, labs, procedures, imaging) and communicating and explaining results to the patient/family/caregiver. 3. Coordination of care; preparing and printing discharge instruction and any educational material for the patient and caregivers. Documenting clinical information in the electronic and other health records. Reviewing OARRS as needed. No orders of the defined types were placed in this encounter. Subjective (CC/HPI): Patient came for follow-up neurological evaluation accompanied by her caregiver who knows her for at least 10 years. She mention gradual gait abnormalities since 2013 (8 years ago). She will occasionally stumble and shuffles. She has mild tremors on the left arm. She does not use any assistive devices. No back pain or radicular symptoms. No bladder or bowel problems. Her cognitive function has not changed over the years. She has history of schizophrenia and occasionally has visual and auditory hallucinations. She has no anosmia but has constipation. She is unreliable and cannot contribute to any historical information. She has no history of head injury, TIA or stroke. She has been on chronic Zyprexa therapy. 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 Therapeutic lumbar puncture showed no dramatic improvement of her gait. Her DaTscan was abnormal. We started her on Sinemet 3 times a day which seems to have helped. No side effects were reported. Past medical history include: Hypertension, hyperlipidemia, diabetes, thyroid dysfunction. Social history: No alcohol, tobacco, or recreational drug use. Family history: Positive for alcoholism. ROS: All systems reviewed and negative except pertinent positives and negatives documented in the HPI and below. Objective: There were no vitals taken for this visit. Patient is awake and alert. Patient is oriented to person and her name.Attention and comprehension were intact. Speech is sparse, monotonous and hypophonic. Language is intact. Pupils are 4 mm equally reactive to light. No ptosis, nystagmus, or gaze deviation. Face is symmetrical and facial sensation is intact. Hearing is grossly intact. Gross strength in the upper and lower extremity were 5/5. Normal muscle tone and bulk. No muscle fasciculations. Gross sensory is grossly intact to primary modalities. She has coarse resting tremor more noticeable on the left forearm than the right with accompanying diffuse bradykinesia, rigidity, hypomimia, decreased blink rate. He has difficulty rising out of the chair and ambulates with a shuffling gait and decreased arm swing with noticeable tremors on the left forearm. No myoclonus or other abnormal involuntary movements. Deep tendon reflexes are symmetrical including ankle jerks. No ankle clonus. Toes are downgoing on plantar stimulation. Gait is shuffling with en bloc turning. No retropulsion or postural instability. documented in this encounter [facility] 11-25-2022 History of Present illness Narrative Patient confirmed name and date of this session. All standing with gait belt.Ms. Esquivel is progressing well through their POC addressing balance impairments leading to falls. Pt has attended PT sessions since 11/25/22. She demos improvements with quality of movement including amplitude and strength. She is able to perform more activities without rest breaks now also and demos increased confidence throughout session. She is limited by c/o pain in RLE however good tolerance to sessions during this POC. Pt is being placed on hold for 30 days to attempt performing their home exercise program independently. Pt caregiver instructed to contact with any problems, questions, or adjustments. This will serve as the patient s discharge if they elect not to resume skilled PT within 30 days. [facility] Work Phone: 08-07-2022 History of Present illness Narrative Patient confirmed name and date of this session. Gait belt throughout.Pt with significant improvements in ROM with all activities especially august amb, side steps, HS curls. SBA-CGA throughout which is also a progression. Mod visual, tactile, verbal cues to perform exercises in correct plane. Less rest breaks required compared to previous sessions. [facility] Work Phone: 08-01-2022 Instructions Mina Ortiz MD - 08/01/2022 10:47 AM EST Start carbidopa/levodopa 25/100 mg 3 times a day. Monitor for any nausea, dizziness, confusion, sleep attacks, or behavioral changes. Keep well-hydrated, increase dietary fibers, and avoid sudden changes in position. Therapy and institute fall precautions. Iron supplement with vitamin C. Please call us in 1 to 2 weeks for update on how she is doing with the medication. We will see her for follow-up visit around 6 months. documented in this encounter [facility] 08-01-2022 History of Present illness Narrative Neurology Outpatient Consult [facility] [address] [place] [address] (phone)/[phone] (fax) Patient: Shaji Esquivel Date of : 1960 Primary Care Provider: Antwan Maharaj MD Assessment/Plan: Patient with history of chronic gait abnormality since around 2013. She will occasionally stumble. She does not use any assistive devices. She has clinical features suggestive of parkinsonism including a coarse resting tremors in the left arm, diffuse bradykinesia, cogwheel rigidity, hypomimia, decreased blink rate, sparse hypophonic voice, shuffling gait and postural instability. (Medication induced or idiopathic Parkinson's disease are possibilities.) Her DaTscan was positive suggesting dopaminergic deficit. Consideration if she has idiopathic Parkinson's disease or Lewy body dementia with history of cognitive dysfunction, hallucination, and parkinsonism. She does have history of chronic schizophrenia which might also cause hallucination. According to caregivers, cognitive function has not changed for at least 9 years since 2012. She now has incontinence. Therapeutic lumbar puncture showed some improvement in gait velocity, stride length, and decreased en bloc turning. Caregiver described improvement in posture but not much on her gait. Labs/Imaging/Ancillary test: Vitamin B12 is 322. Serum iron is 44. Ferritin is 5. Hemoglobin A1c 7.3. Triglyceride is 143. LDL is 45. TSH is 5.67. CSF protein is 49. CSF glucose normal. CSF VDRL is nonreactive. CSF WBCs 5. CSF culture was negative. DaTscan April 2022: Abnormal DaTscan. 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 Brain MRI September 06, 2021: Moderate nonspecific periventricular and subcortical T2 flair hyperintensity most likely reflect chronic small vessel ischemic changes. Moderate dilatation of the lateral and third greater than fourth ventricles likely symptomatic due to global parenchymal volume loss. Given relative effacement of the subarachnoid space over the vertex, superimposed adult hydrocephalus cannot be excluded. Impression: Parkinsonism consider idiopathic Parkinson's disease or Lewy body dementia Hypertension Hyperlipidemia Hypothyroidism Diabetes mellitus Her iron deficiency anemia Suggestion: Start carbidopa/levodopa 25/100 mg 3 times a day. Monitor for any nausea, dizziness, confusion, sleep attacks, or behavioral changes. Keep well-hydrated, increase dietary fibers, and avoid sudden changes in position. Therapy and institute fall precautions. Iron supplement with vitamin C. Please call us in 1 to 2 weeks for update on how she is doing with the medication. We will see her for follow-up visit around 6 months. Diagnostic impression, plans, and suggestions were explained and discussed. Records from the referring physician were reviewed. Clinical imaging study/ labs/medical tests were ordered/reviewed. Indications, risk, complications, side effects and alternatives of medications/therapeutics were explained and discussed. Please monitor closely for any untoward side effects or complications of medications. Questions and concerns were addressed. Please call or contact us for any problems. This note was created in part using a speech-recognition software. Time Code: 34 minutes 1. Preparation for patient's visit (reviewing previous chart, current medical records, previous history, exam, tests, procedures, and medications) 2. Face to face encounter obtaining history from the patient/family/caregivers; performing evaluation and examination; discussing tests and procedure results, medications and therapeutic options, side effects and complications of medications and procedures. Ordering medications, tests, or procedures; referring and communicating with other physicians, healthcare professionals; counseling and education of the patient/family/caregiver; independently interpreting results (tests, labs, procedures, imaging) and communicating and explaining results to the patient/family/caregiver. 3. Coordination of care; preparing and printing discharge instruction and any educational material for the patient and caregivers. Documenting clinical information in the electronic and other health records. Reviewing OARRS as needed. Orders Placed This Encounter melatonin 3 mg Tab nut.tx.glucose intolerance,soy (GLUCERNA ORAL) carbidopa-levodopa (Sinemet) 25-100 mg per tablet Subjective (CC/HPI): Patient came for follow-up neurological evaluation accompanied by her caregiver who knows her for at least 9 years. She mention gradual gait abnormalities since 2013 (8 years ago). She will occasionally stumble and shuffles. She has mild tremors on the left arm. She does not use any assistive devices. No back pain or radicular symptoms. No bladder or bowel problems. Her cognitive function has not changed over the years. She has history of schizophrenia and occasionally has hallucinations. She is unreliable and cannot contribute to any historical information. She has no history of head injury, TIA or stroke. She has been on chronic Zyprexa therapy. 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 Therapeutic lumbar puncture showed no dramatic improvement of her gait. Her DaTscan was abnormal. Past medical history include: Hypertension, hyperlipidemia, diabetes, thyroid dysfunction. Social history: No alcohol, tobacco, or recreational drug use. Family history: Positive for alcoholism. ROS: All systems reviewed and negative except pertinent positives and negatives documented in the HPI and below. Objective: BP 113/75 (BP Location: Left arm, Patient Position: Sitting, BP Cuff Size: Adult) Pulse 80 Resp 16 Ht 5' 4 Wt 60.3 kg (133 lb) SpO2 95% BMI 22.83 kg/m Patient is awake and alert. Neck is supple. No carotid bruit. Heart rate and rhythm is regular. Pulses are 2+ symmetrically. Patient is oriented to person and her name but disoriented to month, season, and year. She has poor calculation, unable to spell, poor concentration and abstraction. She will follow simple commands but not 2 steps command. Attention and comprehension were intact. Speech is sparse, monotonous and hypophonic. Language is intact. Pupils are 4 mm equally reactive to light. No ptosis, nystagmus, or visual field cuts. Face is symmetrical and facial sensation is intact. Hearing is grossly intact. Palate moved symmetrical upward. Positive shoulder shrug. Tongue is midline. Gross strength in the upper and lower extremity were 5/5. Normal muscle tone and bulk. No muscle fasciculations. Gross sensory is grossly intact to pinprick, vibration and light touch although questionable r reliability. She has coarse resting tremor more noticeable on the left forearm than the right with accompanying diffuse bradykinesia, rigidity, hypomimia, decreased blink rate. He has difficulty rising out of the chair and ambulates with a shuffling gait and decreased arm swing with noticeable tremors on the left forearm. No myoclonus or other abnormal involuntary movements. Deep tendon reflexes are symmetrical including ankle jerks. No ankle clonus. Toes are downgoing on plantar stimulation. Gait is shuffling with en bloc turning. No retropulsion or postural instability. documented in this encounter [facility] note Diagnosis Other symptoms and signs involving the nervous system- Primary Abnormal brain MRI Nonspecific (abnormal) findings on radiological and other examination of skull and head [facility] Diagnosis NPH (normal pressure hydrocephalus) (HCC)- Primary Idiopathic normal pressure hydrocephalus (INPH) Abnormal coagulation profile [facility] Diagnosis NPH (normal pressure hydrocephalus) (HCC)- Primary Idiopathic normal pressure hydrocephalus (INPH) [facility] Diagnosis Parkinson disease (HCC)- Primary Paralysis agitans [facility]* Diagnosis Parkinson disease (HCC) Paralysis agitans [facility] Diagnosis Encounter for screening mammogram for malignant neoplasm of breast- Primary Type 2 diabetes mellitus without complication, without long-term current use of insulin (CMS/HCC) Acquired hypothyroidism Unspecified hypothyroidism Stage 3a chronic kidney disease (CMS/HCC) Parkinson's disease without dyskinesia or fluctuating manifestations Schizophrenia, unspecified type (CMS/HCC) documented in this encounter [facility] Work Phone: Evaluation note* Diagnosis Parkinson disease Paralysis agitans [facility] Diagnosis Parkinson disease Paralysis agitans [facility] Diagnosis Encounter for screening mammogram for malignant neoplasm of breast documented in this encounter [facility] Work Phone: Evaluation note* Diagnosis Encounter for screening mammogram for malignant neoplasm of breast documented in this encounter [facility] Work Phone: Evaluation note* Diagnosis Comprehensive diabetic foot examination, type 2 DM, encounter for (HCC)- Primary Diabetic peripheral neuropathy (HCC) Type II or unspecified type diabetes mellitus with neurological manifestations, not stated as uncontrolled Onychodystrophy Other specified disease of nail Onychomycosis Dermatophytosis of nail Pain due to onychomycosis of toenail of right foot [facility]* Diagnosis Diabetic peripheral neuropathy (HCC)- Primary Type II or unspecified type diabetes mellitus with neurological manifestations, not stated as uncontrolled Onychodystrophy Other specified disease of nail Onychomycosis Dermatophytosis of nail Pain due to onychomycosis of toenail of right foot [facility]* Diagnosis SAH (subarachnoid hemorrhage) (HCC)- Primary Subarachnoid hemorrhage [facility]* Diagnosis SAH (subarachnoid hemorrhage) (HCC)- Primary Subarachnoid hemorrhage [facility]* Diagnosis Pain- Primary Generalized pain [facility]* Diagnosis Right wrist pain- Primary Pain in joint, forearm [facility]* Diagnosis Parkinson disease (HCC) Paralysis agitans [facility]* Diagnosis SAH (subarachnoid hemorrhage) (HCC)- Primary Subarachnoid hemorrhage [facility]* Diagnosis Pain- Primary Generalized pain [facility]* Diagnosis Pain- Primary Generalized pain [facility]* Diagnosis Right wrist pain- Primary Pain in joint, forearm [facility]* Diagnosis Onychomycosis Dermatophytosis of nail Onychodystrophy Other specified disease of nail Diabetic peripheral neuropathy (HCC) Type II or unspecified type diabetes mellitus with neurological manifestations, not stated as uncontrolled Pain due to onychomycosis of toenail of right foot [facility]* Diagnosis Type 2 diabetes mellitus without complication, without long-term current use of insulin (Multi)- Primary Primary hypertension Unspecified essential hypertension Acquired hypothyroidism Unspecified hypothyroidism Gastroesophageal reflux disease without esophagitis Esophageal reflux Stage 3a chronic kidney disease (Multi) Schizophrenia, unspecified type Parkinson's disease without dyskinesia or fluctuating manifestations documented in this encounter [facility] Work Phone: Evaluation note* Diagnosis Onychomycosis- Primary Dermatophytosis of nail Onychodystrophy Other specified disease of nail Diabetic peripheral neuropathy (HCC) Type II or unspecified type diabetes mellitus with neurological manifestations, not stated as uncontrolled Pain due to onychomycosis of toenail of right foot [facility]* Diagnosis Fall, initial encounter- Primary Traumatic hemorrhage of right cerebrum with loss of consciousness of 30 minutes or less, initial encounter (Multi) Facial abrasion, initial encounter Contusion of face, initial encounter Dislocation of right wrist, initial encounter documented in this encounter [facility] Work Phone: Evaluation note* Diagnosis Parkinson disease (HCC) Paralysis agitans [facility]* Diagnosis Parkinson's disease with fluctuating manifestations, unspecified whether dyskinesia present (Multi)- Primary Subarachnoid hemorrhage (Multi) Subarachnoid hemorrhage documented in this encounter [facility] Work Phone: Evaluation note* Diagnosis Primary hypertension- Primary Unspecified essential hypertension Type 2 diabetes mellitus without complication, without long-term current use of insulin (Multi) Acquired hypothyroidism Unspecified hypothyroidism Disease of thyroid gland Unspecified disorder of thyroid Gastroesophageal reflux disease without esophagitis Esophageal reflux Stage 3a chronic kidney disease (Multi) Schizophrenia, unspecified type (Multi) Parkinson's disease without dyskinesia or fluctuating manifestations (Multi) documented in this encounter [facility] Work Phone: Evaluation note* Diagnosis Subluxation of distal end of right ulna, subsequent encounter- Primary Contusion of right forearm, initial encounter Contusion of right knee, initial encounter Subluxation of tooth Other specified disorders of the teeth and supporting structures documented in this encounter [facility] Work Phone: Evaluation note* Diagnosis Other closed fracture of distal end of right ulna, initial encounter- Primary documented in this encounter [facility] Work Phone: Evaluation note* Diagnosis Primary hypertension- Primary Unspecified essential hypertension Type 2 diabetes mellitus without complication, without long-term current use of insulin (HCC) Parkinson's disease, unspecified whether dyskinesia present, unspecified whether manifestations fluctuate (HCC) Schizophrenia, unspecified type (HCC) Recurrent falls [facility]* Diagnosis Acquired hypothyroidism- Primary Unspecified hypothyroidism Primary hypertension Unspecified essential hypertension Gastroesophageal reflux disease without esophagitis Esophageal reflux Schizophrenia, unspecified type Parkinson's disease without dyskinesia or fluctuating manifestations Balance disorder documented in this encounter [facility] Work Phone: Evaluation note* Diagnosis Fall, initial encounter- Primary Contusion of right knee and lower leg, initial encounter documented in this encounter [facility] Work Phone: Evaluation note* Diagnosis Primary hypertension- Primary Unspecified essential hypertension Type 2 diabetes mellitus without complication, without long-term current use of insulin (HCC) Parkinson's disease, unspecified whether dyskinesia present, unspecified whether manifestations fluctuate (HCC) Schizophrenia, unspecified type (HCC) Recurrent falls Recurrent falls- Primary Primary osteoarthritis involving multiple joints [facility]* Diagnosis Primary hypertension- Primary Unspecified essential hypertension Type 2 diabetes mellitus without complication, without long-term current use of insulin (HCC) Parkinson's disease, unspecified whether dyskinesia present, unspecified whether manifestations fluctuate (HCC) Schizophrenia, unspecified type (HCC) Recurrent falls Recurrent falls- Primary Primary osteoarthritis involving multiple joints Abnormal CT of the abdomen- Primary Nonspecific (abnormal) findings on radiological and other examination of abdominal area, including retroperitoneum [facility] Diagnosis Primary hypertension- Primary Unspecified essential hypertension Type 2 diabetes mellitus without complication, without long-term current use of insulin (HCC) Parkinson's disease, unspecified whether dyskinesia present, unspecified whether manifestations fluctuate (HCC) Schizophrenia, unspecified type (HCC) Recurrent falls Recurrent falls- Primary Primary osteoarthritis involving multiple joints Onychomycosis- Primary Dermatophytosis of nail Onychodystrophy Other specified disease of nail Diabetic peripheral neuropathy (HCC) Type II or unspecified type diabetes mellitus with neurological manifestations, not stated as uncontrolled Pain due to onychomycosis of toenail of right foot documented in this encounter [facility]* Diagnosis Primary hypertension- Primary Unspecified essential hypertension Type 2 diabetes mellitus without complication, without long-term current use of insulin (HCC) Parkinson's disease, unspecified whether dyskinesia present, unspecified whether manifestations fluctuate (HCC) Schizophrenia, unspecified type (HCC) Recurrent falls Recurrent falls- Primary Primary osteoarthritis involving multiple joints Parkinson's disease, unspecified whether dyskinesia present, unspecified whether manifestations fluctuate (HCC)- Primary Primary osteoarthritis involving multiple joints Frequent falls Multiple falls documented in this encounter [facility] note* Diagnosis Primary hypertension- Primary Unspecified essential hypertension Type 2 diabetes mellitus without complication, without long-term current use of insulin (HCC) Parkinson's disease, unspecified whether dyskinesia present, unspecified whether manifestations fluctuate (HCC) Schizophrenia, unspecified type (HCC) Recurrent falls Recurrent falls- Primary Primary osteoarthritis involving multiple joints Closed fracture of sternum with routine healing, unspecified portion of sternum, subsequent encounter- Primary Multiple falls Parkinson's disease, unspecified whether dyskinesia present, unspecified whether manifestations fluctuate (HCC) Primary osteoarthritis involving multiple joints documented in this encounter [facility] note* Diagnosis Primary hypertension- Primary Unspecified essential hypertension Type 2 diabetes mellitus without complication, without long-term current use of insulin (HCC) Parkinson's disease, unspecified whether dyskinesia present, unspecified whether manifestations fluctuate (HCC) Schizophrenia, unspecified type (HCC) Recurrent falls Recurrent falls- Primary Primary osteoarthritis involving multiple joints Recurrent falls- Primary [facility] Diagnosis Primary hypertension- Primary Unspecified essential hypertension Type 2 diabetes mellitus without complication, without long-term current use of insulin (HCC) Parkinson's disease, unspecified whether dyskinesia present, unspecified whether manifestations fluctuate (HCC) Schizophrenia, unspecified type (HCC) Recurrent falls Recurrent falls- Primary Primary osteoarthritis involving multiple joints Recurrent falls- Primary Frequent falls- Primary Parkinson's disease (HCC) Paralysis agitans documented in this encounter [facility] note* Diagnosis Primary hypertension- Primary Unspecified essential hypertension Type 2 diabetes mellitus without complication, without long-term current use of insulin (HCC) Parkinson's disease, unspecified whether dyskinesia present, unspecified whether manifestations fluctuate (HCC) Schizophrenia, unspecified type (HCC) Recurrent falls Recurrent falls- Primary Primary osteoarthritis involving multiple joints Recurrent falls- Primary Parkinson's disease, unspecified whether dyskinesia present, unspecified whether manifestations fluctuate (HCC)- Primary Primary osteoarthritis involving multiple joints Frequent falls documented in this encounter [facility] note* Diagnosis Primary hypertension- Primary Unspecified essential hypertension Type 2 diabetes mellitus without complication, without long-term current use of insulin (HCC) Parkinson's disease, unspecified whether dyskinesia present, unspecified whether manifestations fluctuate (HCC) Schizophrenia, unspecified type (HCC) Recurrent falls Recurrent falls- Primary Primary osteoarthritis involving multiple joints Recurrent falls- Primary Constipation, unspecified constipation type- Primary Frequent falls documented in this encounter [facility] note* Diagnosis Primary hypertension- Primary Unspecified essential hypertension Type 2 diabetes mellitus without complication, without long-term current use of insulin (HCC) Parkinson's disease, unspecified whether dyskinesia present, unspecified whether manifestations fluctuate (HCC) Schizophrenia, unspecified type (HCC) Recurrent falls Recurrent falls- Primary Primary osteoarthritis involving multiple joints Recurrent falls- Primary Parkinson's disease, unspecified whether dyskinesia present, unspecified whether manifestations fluctuate (HCC)- Primary Primary osteoarthritis involving multiple joints Frequent falls documented in this encounter [facility] note* Diagnosis Primary hypertension- Primary Unspecified essential hypertension Type 2 diabetes mellitus without complication, without long-term current use of insulin (HCC) Parkinson's disease, unspecified whether dyskinesia present, unspecified whether manifestations fluctuate (HCC) Schizophrenia, unspecified type (HCC) Recurrent falls Recurrent falls- Primary Primary osteoarthritis involving multiple joints Recurrent falls- Primary Parkinson's disease, unspecified whether dyskinesia present, unspecified whether manifestations fluctuate (HCC)- Primary Primary osteoarthritis involving multiple joints Frequent falls documented in this encounter [facility] note* Diagnosis Primary hypertension- Primary Unspecified essential hypertension Type 2 diabetes mellitus without complication, without long-term current use of insulin (HCC) Parkinson's disease, unspecified whether dyskinesia present, unspecified whether manifestations fluctuate (HCC) Schizophrenia, unspecified type (HCC) Recurrent falls Recurrent falls- Primary Primary osteoarthritis involving multiple joints Recurrent falls- Primary Parkinson's disease, unspecified whether dyskinesia present, unspecified whether manifestations fluctuate (HCC)- Primary Primary osteoarthritis involving multiple joints Frequent falls documented in this encounter [facility] note* Diagnosis Primary hypertension- Primary Unspecified essential hypertension Type 2 diabetes mellitus without complication, without long-term current use of insulin (HCC) Parkinson's disease, unspecified whether dyskinesia present, unspecified whether manifestations fluctuate (HCC) Schizophrenia, unspecified type (HCC) Recurrent falls Recurrent falls- Primary Primary osteoarthritis involving multiple joints Recurrent falls- Primary Parkinson's disease, unspecified whether dyskinesia present, unspecified whether manifestations fluctuate (HCC)- Primary Primary osteoarthritis involving multiple joints Frequent falls [facility] Primary hypertension- Primary Unspecified essential hypertension Type 2 diabetes mellitus without complication, without long-term current use of insulin (HCC) Parkinson's disease, unspecified whether dyskinesia present, unspecified whether manifestations fluctuate (HCC) Schizophrenia, unspecified type (HCC) Recurrent falls Recurrent falls- Primary Primary osteoarthritis involving multiple joints Recurrent falls- Primary Abnormal CT of the abdomen Nonspecific (abnormal) findings on radiological and other examination of abdominal area, including retroperitoneum [facility] Diagnosis Primary hypertension- Primary Unspecified essential hypertension Type 2 diabetes mellitus without complication, without long-term current use of insulin (HCC) Parkinson's disease, unspecified whether dyskinesia present, unspecified whether manifestations fluctuate (HCC) Schizophrenia, unspecified type (HCC) Recurrent falls Recurrent falls- Primary Primary osteoarthritis involving multiple joints Recurrent falls- Primary Type 2 diabetes mellitus without complication, without long-term current use of insulin (HCC)- Primary Recurrent falls Abnormal CT of the abdomen Nonspecific (abnormal) findings on radiological and other examination of abdominal area, including retroperitoneum [facility] Primary hypertension- Primary Unspecified essential hypertension Type 2 diabetes mellitus without complication, without long-term current use of insulin (HCC) Parkinson's disease, unspecified whether dyskinesia present, unspecified whether manifestations fluctuate (HCC) Schizophrenia, unspecified type (HCC) Recurrent falls Recurrent falls- Primary Primary osteoarthritis involving multiple joints Recurrent falls- Primary Type 2 diabetes mellitus without complication, without long-term current use of insulin (HCC)- Primary Recurrent falls Abnormal CT of the abdomen Nonspecific (abnormal) findings on radiological and other examination of abdominal area, including retroperitoneum At risk for tuberculosis- Primary Other specified conditions influencing health status [facility] Diagnosis Primary hypertension- Primary Unspecified essential hypertension Type 2 diabetes mellitus without complication, without long-term current use of insulin (HCC) Parkinson's disease, unspecified whether dyskinesia present, unspecified whether manifestations fluctuate (HCC) Schizophrenia, unspecified type (HCC) Recurrent falls Recurrent falls- Primary Primary osteoarthritis involving multiple joints Recurrent falls- Primary Parkinson's disease, unspecified whether dyskinesia present, unspecified whether manifestations fluctuate (HCC)- Primary Primary osteoarthritis involving multiple joints Frequent falls Type 2 diabetes mellitus without complication, without long-term current use of insulin (HCC)- Primary Recurrent falls Abnormal CT of the abdomen Nonspecific (abnormal) findings on radiological and other examination of abdominal area, including retroperitoneum [facility] Diagnosis Primary hypertension- Primary Unspecified essential hypertension Type 2 diabetes mellitus without complication, without long-term current use of insulin (HCC) Parkinson's disease, unspecified whether dyskinesia present, unspecified whether manifestations fluctuate (HCC) Schizophrenia, unspecified type (HCC) Recurrent falls Recurrent falls- Primary Primary osteoarthritis involving multiple joints Recurrent falls- Primary Type 2 diabetes mellitus without complication, without long-term current use of insulin (HCC)- Primary Recurrent falls Abnormal CT of the abdomen Nonspecific (abnormal) findings on radiological and other examination of abdominal area, including retroperitoneum Type 2 diabetes mellitus without complication, without long-term current use of insulin (HCC)- Primary [facility]* Diagnosis Primary hypertension- Primary Unspecified essential hypertension Type 2 diabetes mellitus without complication, without long-term current use of insulin (HCC) Parkinson's disease, unspecified whether dyskinesia present, unspecified whether manifestations fluctuate (HCC) Schizophrenia, unspecified type (HCC) Recurrent falls Recurrent falls- Primary Primary osteoarthritis involving multiple joints Recurrent falls- Primary Type 2 diabetes mellitus without complication, without long-term current use of insulin (HCC)- Primary Recurrent falls Abnormal CT of the abdomen Nonspecific (abnormal) findings on radiological and other examination of abdominal area, including retroperitoneum Onychomycosis- Primary Dermatophytosis of nail Onychodystrophy Other specified disease of nail Diabetic peripheral neuropathy (HCC) Type II or unspecified type diabetes mellitus with neurological manifestations, not stated as uncontrolled Pain due to onychomycosis of toenail of right foot [facility]* Diagnosis Primary hypertension- Primary Unspecified essential hypertension Type 2 diabetes mellitus without complication, without long-term current use of insulin (HCC) Parkinson's disease, unspecified whether dyskinesia present, unspecified whether manifestations fluctuate (HCC) Schizophrenia, unspecified type (HCC) Recurrent falls Recurrent falls- Primary Primary osteoarthritis involving multiple joints Recurrent falls- Primary Type 2 diabetes mellitus without complication, without long-term current use of insulin (HCC)- Primary Recurrent falls Abnormal CT of the abdomen Nonspecific (abnormal) findings on radiological and other examination of abdominal area, including retroperitoneum Gastroesophageal reflux disease, unspecified whether esophagitis present- Primary [facility] Ms. Esquivel arrives to outpatient PT with s/s consistent with c/o frequent falls. Pt presents with the following impairments: weakness of BLE, imbalance, impaired gait. These are contributing to frequent falls and increased risk of injuring herself. The pt will benefit from skilled PT services to address the above stated impairments and functional limitations to maximize participation and ease in household, social related activities. The pt has a fair prognosis when considering positive factors including support in senior care with barriers such as understanding of exercises. The pt verbalized understanding and agreement to goals and POC. Thank you for this referral and please call [phone] with any questions or concerns. * Clinical Presentation: Stable and/or uncomplicated characteristics. * Level of Complexity: low * Problem List: activity limitations, ADLs/IADLs/self care skills, balance, decreased functional level, decreased knowledge of HEP, fall risk, flexibility, gait/locomotion, range of motion/joint mobility, strength and transfers. [facility] Work Phone: History of Present illness Narrative* Patient confirmed name and date of this session. * Pt tends to turn with side steps to L indicating potentially more weakness of L hip abductors vs R.Max verbal and visual cues for all activities. She demos very short steps bkwd despite cues. She does c/o B knee pain throughout session. [facility] Work Phone: History of Present illness Narrative* Patient confirmed name and date of this session. All standing with gait belt in // bars * Pt fatigued upon arrival today and requires multiple sitting rest breaks. She requires verbal, visual, and tactile cues for correct performance of most activities. Able to progress a lot of ther ex with foam in order to also challenge balance for reduced risk of falls. [facility] Work Phone: History of Present illness Narrative* Patient confirmed name and date of this session. All standing with gait belt in // bars. Pt late to session. * Improved tolerance to activities today with less fatigue observed. She does still require seated rest breaks. Did not perform step ups on R d/t inc pain. Pt with definite need for UEs with STS d/t weakness of LEs. [facility] Work Phone: History of Present illness Narrative* Patient confirmed name and date of this session. Gait belt throughout. * Pt requires max VCs and encouragement throughout d/t fear of falling. Able to perform multiple activities outside // bars to further challenge balance. THREAD REELER with side steps in order to keep pt in proper plane and avoid hip ER. Improved compliance with w/c mobilization activities. [facility] Work Phone: History of Present illness Narrative* Patient confirmed name and date of this session. Gait belt throughout. * Progressed to not performing any activities in // bars today. Did not use foam as pt has less UE support with all activities. Improved activity tolerance with less seated rest breaks required. Limited seated ther ex on RLE d/t pain. VCs to keep hip in correct plane with hip abd activities with poor implementation d/t fear of falling and weakness of glute med R>L. [facility] Work Phone: History of Present illness Narrative* Tracy Hilliard APRN-CERTIFIED PEER SPECIALIST - 02/05/2024 10:50 AM EDT Subjective Patient ID: Shaji Esquivel is a 63 y.o. female who presents for ER Follow-up. HPI Here today for ER follow up after a fall with wrist fracture. Seen by Dr Morales and he did not recommend any further treatment at this time. She is seeing PT and OT as well. Caregiver denies any other acute concerns. Reports patient is eating, drinking, peeing and having normal Bms, she is taking ibuprofen for pain/swelling occasionally. Review of Systems Constitutional: Negative for fatigue. Respiratory: Negative for shortness of breath. Cardiovascular: Negative for chest pain, palpitations and leg swelling. Gastrointestinal: Negative for abdominal pain, constipation and diarrhea. Genitourinary: Negative for difficulty urinating and dysuria. Neurological: Negative for light-headedness, numbness and headaches. Objective BP 137/85 (Patient Position: Sitting) Pulse 83 Ht 1.676 m (5' 6) Wt 72.6 kg (160 lb) BMI 25.82 kg/m Physical Exam Musculoskeletal: Right wrist: Tenderness present. Decreased range of motion. Left wrist: Tenderness present. Decreased range of motion. Skin: Capillary Refill: Capillary refill takes less than 2 seconds. Neurological: Mental Status: She is alert and oriented to person, place, and time. Assessment/Plan Problem List Items Addressed This Visit None Right ulna fracture -Continue with bilateral splints -Ibuprofen for pain as needed -Ice 2for swelling [facility]* Attachments The following attachments cannot be sent through Care Everywhere. * Minor Contusion ED (Armenian) * Taking care of bruises (Armenian) * Preventing Falls ED (Armenian) [facility] Reason for referral (narrative)* Consultation (Routine) - Authorized Specialty Diagnoses / Procedures Referred By Jess ayon Referred To Contact Primary Care Procedures Follow Up In Primary Care - Established Rafa Jacinto DO [address] [facility] Physician [place] [phone] Referral ID Status Reason Start Date Expiration Date V isits Requested Visits Authorized [id number] Authorized 04/21/2023 04/20/2024 1 1 * Imaging (Routine) - Authorized Specialty Diagnoses / Procedures Referred By Jess ayon Referred To Contact Radiology Diagnoses Encounter for screening mammogram for malignant neoplasm of breast Procedures BI mammo bilateral screening tomosynthesis Rafa Jacinto DO [address] [facility] [place] [address] Referral ID Status Reason Start Date Expiration Date Visits Requested Visits Authorized [id number] Authorized Perform Procedure 3 04/20/2024 1 1 [facility] Work Phone: Reason for referral (narrative)* Consultation (Routine) - Pending Review Specialty Diagnoses / Procedures Referred By Contac t Referred To Contact Speech Pathology / Speech Therapy Diagnoses Parkinson's disease with fluctuating manifestations, unspecified whether dyskinesia present (Multi) Tracy Hilliard APRN-CNP [address] [facility] [place] [phone] Referral ID Status Reason Start Date Expiration Date Visits Requested Visits Authorized [id number] Pending Review Specialty Services Required 12/17/2023 12/16/2024 1 1 * Consultation (Routine) - Pending Review Specialty Diagnoses / Procedures Referred By Contac t Referred To Contact Occupational Therapy Diagnoses Parkinson's disease with fluctuating manifestations, unspecified whether dyskinesia present (Multi) Tracy Hilliard APRN-CNP [address] [place] [phone] Referral ID Status Reason Start Date Expiration Date Visits Requested Visits Authorized [id number] Pending Review Specialty Services Required 12/17/2023 12/16/2024 1 1 * Consultation (Routine) - Pending Review Specialty Diagnoses / Procedures Referred By Contac t Referred To Contact Physical Therapy Diagnoses Parkinson's disease with fluctuating manifestations, unspecified whether dyskinesia present (Multi) Tracy Hilliard APRN-CNP [address] [facility] [place] [phone] Referral ID Status Reason Start Date Expiration Date Visits Requested Visits Authorized [id number] Pending Review Specialty Services Required 12/17/2023 12/16/2024 1 1 [facility] Work Phone: reason for visit Narrative* Initial Evaluation . Dx: R29.6. * [facility]: reason for visit Narrative* Initial Evaluation . Dx: R29.6. * [facility] Work Phone: Rezodg for visit Narrative* Initial Evaluation . Dx: R29.6. * [facility] Work [facility]: Reazyy for visit Narrative* Initial Evaluation . Dx: R29.6. * [facility] Work [facility]: Reumaa for visit Narrative* Initial Evaluation . Dx: R29.6. * [facility] Work Phone: Renhlh for visit Narrative* Initial Evaluation . Dx: R29.6. * [facility] Work Phone: Rexpce for visit Narrative* Initial Evaluation . Dx: R29.6. * [facility] Work Phone: Renrwa for visit Narrative* Neuro Rehab PT (Routine) - Pending Review Specialty Diagnoses / Procedures Referred By Jess ayon Referred To Contact Rehabilitation Diagnoses Closed fracture of sternum with routine healing, unspecified portion of sternum, subsequent encounter Multiple falls Recurrent falls Parkinson's disease, unspecified whether dyskinesia present, unspecified whether manifestations fluctuate (HCC) Primary osteoarthritis involving multiple joints Shelley Maldonado PA-C [address] [place] [address] Phone: tel: fax: [facility] [address] [place] [address] Phone: tel: fax: Referral ID Status Reason Start Date Expiration Date Visits Requested Visits Authorized [id number] Pending Review Patient Preference 07/23/2024 07/23/[phone] for visit Narrative* Evaluate and Treat (Routine) - Closed Specialty Diagnoses / Procedures Referred By Jess ayon Referred To Contact Gastroenterology Diagnoses Abnormal CT of the abdomen Zara Evans, DO [address] [address] Phone: tel: fax: [facility] [address] [place] [address] Phone: tel:[phone] fax: Referral ID Status Reason Start Date Expiration Date Visits Re quested Visits Authorized [id number] Closed 07/26/2024 07/26/2025 1 1 [facility] Summary Purpose Family History No Family History Records FoundNo Family History Records FoundNo Family History Records FoundNo Family History Records FoundNo Family History Records FoundNo Family History Records FoundNo Family History Records FoundNo Family History Records FoundNo Family History Records FoundNo Family History Records FoundNo Family History Records FoundNo Family History Records FoundNo Family History Records FoundNo Family History Records Found Advance Directives Documents on File Type Date Recorded Patient [employer]proof[employer] 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 Expl anation Advance Directives and Livin g Will 11/03/2018 10:30 AM Documents on File Type Date Recorded Patient [employer]proof[employer] 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 Expl anation Advance Directives and Livin g Will 11/03/2018 10:30 AM Documents on File Type Date Recorded Patient [employer] 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 Expl anation Guardianship Papers 08/01/2022 Documents on File Type Date Recorded Patient Primer Waterproofing 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 Expl anation Living Will 05/24/2011 Documents on File Type Date Recorded Patient Primer [employer]proofing 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 Expl anation Guardianship Papers 08/01/2022 Date Activated Date Inactivated Comments 12/04/2023 4:46 PM 12/05/2023 6:04 PM Date Activated Date Inactivated Comments 12/04/2023 4:46 PM 12/05/2023 6:04 PM Documents on File Type Date Recorded Patient [employer]proof[employer] 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 Expl anation Living Will 05/24/2011 Documents on File Type Date Recorded Patient Primer Waterproofing 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 Expl anation Advance Directives and Living Will 05/24/2011 Living Will 05/24/2011 Documents on File Type Date Recorded Patient Primer Waterproofing 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 Expl anation Guardianship Papers 06/01/2024 Apsi Other 2-GUARDIAN[employer]IP P[employer]ERWORK Guardianship Papers 08/01/2022 Documents on File Type Date Recorded Patient Primer Waterproofing 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 Expl anation Guardianship Papers 07/23/2024 3:21 PM Guardianship Papers 07/19/2024 Guardianship Papers 06/01/2024 Apsi Other 2-GUARDIANSHIP P[employer]ERWORK Guardianship Papers 08/01/2022 Date Activated Date Inactivated Comments 07/19/2024 9:59 AM 07/23/2024 5:11 PM Date Activated Date Inactivated Comments 12/04/2023 4:46 PM 12/05/2023 6:04 PM Documents on File Type Date Recorded Patient Primer [employer]proofing 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 Expl anation Guardianship Papers 07/23/2024 3:21 PM Guardianship Papers 07/19/2024 Guardianship Papers 06/01/2024 [employer]psi Other 2-GU[employer]IP [employer]WORK Guardianship Papers 08/01/2022 Date Activated Date Inactivated Comments 07/19/2024 9:59 AM 07/23/2024 5:11 PM Date Activated Date Inactivated Comments 12/04/2023 4:46 PM 12/05/2023 6:04 PM Documents on File Type Date Recorded Patient Primer Waterproofing 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 Expl anation Guardianship Papers 07/23/2024 3:21 PM Guardianship Papers 07/30/2024 Guardianship Papers 07/19/2024 Guardianship Papers 06/01/2024 [facility] -GUARDIANSHIP P[employer]ERWORK Guardianship Papers 08/01/2022 Documents on File Type Date Recorded Patient Primer Waterproofing 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 Expl anation Guardianship Papers 07/23/2024 3:21 PM Guardianship Papers 07/30/2024 Guardianship Papers 07/19/2024 Guard[employer]hip Papers 06/01/2024 [facility] -[employer] Guardianship Papers 08/01/2022 Reason for Referral Status Reason Specialty Diagnoses / Procedures Referred By Contact Referred To Contact Pending Review Radiology Diagnoses Dysphagia, unspecified type Procedures XR Upper GI Series Antwan Maharaj MD [address] [place] [address] Specialty Diagnoses / Procedures Referred By Contac t Referred To Contact Neurology Diagnoses Other symptoms and signs involving the nervous system Abnormal brain MRI Antwan Maharaj MD [address] [place] [phone] Mina Ortiz MD [address] [place] [address] Referral ID Status Reason Start Date Expiration Date V isits Requested Visits Authorized [id number] Authorized 11/15/2021 11/15/2022 1 1 Specialty Diagnoses / Procedures Referred By Contac t Referred To Contact Radiology Diagnoses SAH (subarachnoid hemorrhage) (HCC) Procedures CT Head Or Brain Without Contrast Huy Vasquez PA-C [address] [place] [address] Referral ID Status Reason Start Date Expiration Date V isits Requested Visits Authorized [id number] New Request 01/05/2024 01/04/2025 1 1 Assessments Diagnosis Dysphagia, unspecified type Diagnosis Fracture of unspecified phalanx of left little finger, initial encounter for closed fracture Diagnosis Fracture of unspecified phalanx of left little finger, initial encounter for closed fracture History of Present Illness * Ti Rhodes MD - 04/27/2019 6:30 PM EST Dictation on: 04/27/2019 6:32 PM by: TI RHODES [[id number]] documented in this encounter* Ti Rhodes MD - 05/18/2019 2:39 PM EST Shaji is seen for followup of her left little finger middle phalanx fracture. She is not having complaints of pain. There is no deformity. X-RAYS Left little finger reveals healing midshaft middle phalanx fracture, so there is enough callus. ASSESSMENT/PLAN I do not think she needs to use a splint. Activities as tolerated and p.r.n. documented in this encounter Additional Source Comments INFORMATION SOURCE (unrecogn ized section and content) DATE CREATED AUTHOR 12/03/2017 [facility] DATE CREATED AUTHOR AUTHOR'S ORGANIZ ATION 12/26/2017 [facility] DATE CREATED AUTHOR AUTHOR'S ORGANIZ ATION 02/26/2019 [facility] DATE CREATED AUTHOR AUTHOR'S ORGANIZ ATION 04/24/2022 [facility] DATE CREATED AUTHOR AUTHOR'S ORGANIZ ATION 02/01/2023 [facility] DATE CREATED AUTHOR AUTHOR'S ORGANIZ ATION 02/05/2023 [employer] DATE CREATED AUTHOR AUTHOR'S ORGANIZ ATION 02/01/2024 [facility] DATE CREATED AUTHOR AUTHOR'S ORGANIZ ATION 02/05/2024 [facility] DATE CREATED AUTHOR AUTHOR'S ORGANIZ ATION 06/29/2024 [facility] DATE CREATED AUTHOR AUTHOR'S ORGANIZ ATION 07/03/2024 [facility] DATE CREATED AUTHOR AUTHOR'S ORGANIZ ATION 07/19/2024 [facility] DATE CREATED AUTHOR AUTHOR'S ORGANIZ ATION 09/23/2024 [facility] DATE CREATED AUTHOR AUTHOR'S ORGANIZ ATION 10/16/2024 [facility] DATE CREATED AUTHOR AUTHOR'S ORGANIZ ATION [facility] Reason for Visit (unrecogniz ed section and content) Status Reason Specialty Diagnoses / Procedures Referred By Contact Referred To Contact Pending Review Radiology Diagnoses Dysphagia, unspecified type Procedures XR Upper GI Series Antwan Maharaj MD [address] [place] [address] Reason Comments Injury Pain Status Reason Specialty Diagnoses / Procedures Referred By Contact Referred To Contact Closed Sports Medicine Diagnoses Fracture of unspecified phalanx of left little finger, initial encounter for closed fracture Antwan Maharaj MD [address] [place] [address] Ti Rhodes MD [address] [place] [phone] Reason Comments Follow-up Reason Comments Follow-up Patients guardian is with her today, she states that her functional abilities have declined some since last visit. She is becoming more incontinent. Had 7 falls in 11 days. Reason Comments Parkinson's Disease Anne, Nurse with kristel wan. Per nurse, Stumbling and falls. Not sure if attention seeking behavior or Parkinson's. Started physical therapy once a week. 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 Reason Onset Date Comments Medication Refill 06/24/2023 Specialty Diagnoses / Procedures Referred By Jess ayon Referred To Contact Radiology Diagnoses Encounter for screening mammogram for malignant neoplasm of breast Procedures BI mammo bilateral screening BI mammo bilateral screening tomosynthesis Rafa Jacinto, DO [address] [facility] [address] [facility] Physician [address] [place] [phone] Referral ID Status Reason Start Date Expiration Date Visits Requested Visits Authorized [id number] Pending Review Perform Procedure 3 04/20/2024 1 1 Reason Comments Nail Care Patient presents for diabetic foot care. Last A1C 7.2 Patient has toenail on tight great toe that is causing her pain Reason Comments Nail Care Diabetic nail care. Last A1C 7.2 Reason Comments Follow-up Fall Reason Comments Parkinson's Disease Caregivers present. Caregivers report recent fall (1.5 month ago). She was in [place] and transferred to [facility]. Pt utilizing assistance with gait. Reason Comments Back Pain Patient having lower back pain Reason Comments Consult Pain Injury Reason Comments Nail Care Reason Comments Follow-up 3 month Fall Reason Comments Nail Care Diabetic A1c 7.9 Reason Comments Fall Patient tripped and fell on concrete outside. No LOC. Hematoma to right forehead and abrasions to right knuckles and wrist. Patient also appears to have bit her lip, blood noted around mouth. Patient is not on blood thinners. Patient denies other injuries. Reason Comments Medication Refill Reason Comments Hospital Follow-up Family states she is healing well and have no major concerns. Wanting to discuss possible helmet for future falls Reason Comments Follow-up 6 month+Physical for m Specialty Diagnoses / Procedures Referred By Jess t Referred To Contact Primary Care Procedures Follow Up In Primary Care - Established Rafa Jacinto, DO [address] [facility] [address] Referral ID Status Reason Start Date Expiration Date V isits Requested Visits Authorized [id number] Authorized 04/21/2023 04/20/2024 1 1 Reason Comments Fall Patient reports she fell out bed lastnight and is unsure of how long she laid on the floor after fall. Pt reports she hit her head on the floor, not on blood thinners. Reason Comments ER Follow-up Reason Comments Establish Care Need diabetic foot e xam for shoes. Need tested for uti to make sure gone if she needs to pee Reason Comments Follow-up 3 MONTHPt states she is not feeling well today Reason Comments Knee Injury Patient went to step into the van and fell, when she went to stand, staff report she would not put any weight on R leg. C/o R knee pain, no LOC Reason Comments Fall Fall on Friday, no f racture per ED imaging. Complaining of left hip pain. Reason Comments Nail Care Pt presents for diab etic nail care last A1C was 7.6 in June. Reason Comments Physical Therapy Neuro Specialty Diagnoses / Procedures Referred By Jess ayon Referred To Contact Rehabilitation Diagnoses Closed fracture of sternum with routine healing, unspecified portion of sternum, subsequent encounter Multiple falls Recurrent falls Parkinson's disease, unspecified whether dyskinesia present, unspecified whether manifestations fluctuate (HCC) Primary osteoarthritis involving multiple joints Shelley Maldonado PA-C [address] [place] [address] Phone: tel: fax: [facility] [address] [place] [address] Phone: tel: fax: Referral ID Status Reason Start Date Expiration Date Visits Requested Visits Authorized [id number] Authorized Patient Preference 07/23/2024 07/23/2025 1 199 Reason Comments Follow-up Staying in wheel [facility] ir very limited walking. Reason Comments Occupational Therapy Neuro Reason Comments Physical Therapy Specialty Diagnoses / Procedures Referred By Contac t Referred To Contact Rehabilitation Diagnoses Closed fracture of sternum with routine healing, unspecified portion of sternum, subsequent encounter Multiple falls Recurrent falls Parkinson's disease, unspecified whether dyskinesia present, unspecified whether manifestations fluctuate (HCC) Primary osteoarthritis involving multiple joints Shelley Maldonado PA-C [address] [place] [address] Phone: tel: fax: [facility] [address] [place] [address] Phone: tel: fax: Referral ID Status Reason Start Date Expiration Date Visits Requested Visits Authorized [id number] Pending Review Patient Preference 07/23/2024 07/23/2025 8 199 Reason Onset Date Comments [facility] 2024 Referral ID Status Reason Start Date Expiration Date Visits Requested Visits Authorized [id number] Pending Review Patient Preference 07/23/2024 07/23/2025 8 199 Reason Onset Date Comments Medication Refill 09/15/2024 Reason Comments Nail Care Diabetic A1c 8.7 09/07 10/31 Care Teams (unrecognized sec tion and content) Marketing Information Analyst Relationship Specialty Start Date End Date Antwan Maharaj MD PCP - General Family Medicine 04/27/19 Marketing Information Analyst Relationship Specialty Start Date End Date Antwan Maharaj MD PCP - General Family Medicine 04/27/19 Marketing Information Analyst Relationship Specialty Start Date End Date Antwan Maharaj MD PCP - General Family Medicine 04/27/19 Marketing Information Analyst Relationship Specialty Start Date End Date Antwan Maharaj MD [address] [place] [address] PCP - General Family Medicine 04/17/22 Marketing Information Analyst Relationship Specialty Start Date End Date Antwan Maharaj MD [address] [place] [address] PCP - General Family Medicine 04/17/22 Marketing Information Analyst Relationship Specialty Start Date End Date Rafa Jacinto DO [address] [facility] [place] [address] PCP - General Internal Medicine 03/19/23 Marketing Information Analyst Relationship Specialty Start Date End Date Antwan Maharaj MD [address] [place] [address] PCP - General Family Medicine 04/17/22 Marketing Information Analyst Relationship Specialty Start Date End Date Antwan Maharaj MD [address] [place] [address] PCP - General Family Medicine 04/17/22 Marketing Information Analyst Relationship Specialty Start Date End Date Rafa Jacinto DO [address] [facility] [place] [address] PCP - General Internal Medicine 03/19/23 Marketing Information Analyst Relationship Specialty Start Date End Date Rafa Jacinto DO [address] [facility] [place] [address] PCP - General Internal Medicine 03/19/23 Marketing Information Analyst Relationship Specialty Start Date End Date Antwan Maharaj MD [address] [place] [address] PCP - General Family Medicine 04/17/22 Marketing Information Analyst Relationship Specialty Start Date End Date Antwan Maharaj MD [address] [place] [address] PCP - General Family Medicine 04/17/22 Marketing Information Analyst Relationship Specialty Start Date End Date Antwan Maharaj MD [address] [place] [address] PCP - General Family Medicine 04/17/22 Marketing Information Analyst Relationship Specialty Start Date End Date Antwan Maharaj MD [address] [place] [address] PCP - General Family Medicine 04/17/22 Marketing Information Analyst Relationship Specialty Start Date End Date Antwan Maharaj MD [address] [place] [address] PCP - General Family Medicine 04/17/22 Marketing Information Analyst Relationship Specialty Start Date End Date Antwan Maharaj MD [address] [place] [address] PCP - General Family Medicine 04/17/22 Marketing Information Analyst Relationship Specialty Start Date End Date Rafa Jacinto DO [address] [facility] [place] [address] PCP - General Internal Medicine 03/19/23 Marketing Information Analyst Relationship Specialty Start Date End Date Rafa Jacinto DO [address] [facility] [place] [address] PCP - General Internal Medicine 03/19/23 Marketing Information Analyst Relationship Specialty Start Date End Date Antwna Maharaj MD [address] [place] [id number] PCP - General Family Medicine 04/17/22 Marketing Information Analyst Relationship Specialty Start Date End Date Rafa Jacinto DO [address] [facility] [place] [id number] PCP - General Internal Medicine 03/19/23 Marie Iyer, pediatric cardiologistBurlap Roll Coverer 12/08/23 Marketing Information Analyst Relationship Specialty Start Date End Date Rafa Jacinto DO [address] [facility] [place] [id number] PCP - General Internal Medicine 03/19/23 Marie Iyer, pediatric cardiologistBurlap Roll Coverer 12/08/23 Marketing Information Analyst Relationship Specialty Start Date End Date Rafa Jacinto DO [address] [facility] [place] [id number] PCP - General Internal Medicine 03/19/23 Marie Iyer, pediatric cardiologistBurlap Roll Coverer 12/08/23 Marketing Information Analyst Relationship Specialty Start Date End Date Rafa Jacinto DO [address] [facility] [place] [id number] PCP - General Internal Medicine 03/19/23 Marie Iyer, pediatric cardiologistBurlap Roll Coverer 12/08/23 Marketing Information Analyst Relationship Specialty Start Date End Date Zara Evans DO [address] [address] PCP - General Family Medicine 06/23/24 Marketing Information Analyst Relationship Specialty Start Date End Date Rafa Jacinto DO [address] [facility] [place] [address] PCP - General Internal Medicine 03/19/23 Marketing Information Analyst Relationship Specialty Start Date End Date Rafa Jacinto AmyDO [address] [facility] [place] [address] PCP - General Internal Medicine 03/19/23 Marketing Information Analyst Relationship Specialty Start Date End Date Zara Evans DO [facility] [address] [address] PCP - General Family Medicine 06/23/24 Marketing Information Analyst Relationship Specialty Start Date End Date Zara Evans DO [address] [place], [place] [id number] PCP - General Family Medicine 06/23/24 Marketing Information Analyst Relationship Specialty Start Date End Date Zara Evans DO [address] [place] [address] PCP - General Family Medicine 06/23/24 Marketing Information Analyst Relationship Specialty Start Date End Date Zara Evans DO [address] [place], [place] [id number] PCP - General Family Medicine 06/23/24 Marketing Information Analyst Relationship Specialty Start Date End Date Zara Evans DO [address] [place] [address] PCP - General Family Medicine 06/23/24 Marketing Information Analyst Relationship Specialty Start Date End Date Zara Evans DO [facility] [address] [address] PCP - General Family Medicine 06/23/24 Marketing Information Analyst Relationship Specialty Start Date End Date Zara Evans DO [address] [place], [place] [id number] PCP - General Family Medicine 06/23/24 Marketing Information Analyst Relationship Specialty Start Date End Date Zara Evans DO [address] [place], [place] [id number] PCP - General Family Medicine 06/23/24 Marketing Information Analyst Relationship Specialty Start Date End Date Zara Evans DO [address] [place], [place] [id number] PCP - General Family Medicine 06/23/24 Marketing Information Analyst Relationship Specialty Start Date End Date Zara Evans DO [address] [place], [place] [id number] PCP - General Family Medicine 06/23/24 Marketing Information Analyst Relationship Specialty Start Date End Date Zara Evans DO [address] [place], [place] [id number] PCP - General Family Medicine 06/23/24 Marketing Information Analyst Relationship Specialty Start Date End Date Zara Evans DO [address] [place], [place] [id number] PCP - General Family Medicine 06/23/24 Marketing Information Analyst Relationship Specialty Start Date End Date Zara Evans DO [address] [place], [place] [id number] PCP - General Family Medicine 06/23/24 Marketing Information Analyst Relationship Specialty Start Date End Date Zara Evans DO [address] [place], [place] [id number] PCP - General Family Medicine 06/23/24 Marketing Information Analyst Relationship Specialty Start Date End Date Zara Evans DO [address] [place], [place] [id number] PCP - General Family Medicine 06/23/24 Marketing Information Analyst Relationship Specialty Start Date End Date Zara Evans DO [address] [place], [place] [id number] PCP - General Family Medicine 06/23/24 Marketing Information Analyst Relationship Specialty Start Date End Date Zara Evans DO [address] [place] [address] PCP - General Family Medicine 06/23/24 Marketing Information Analyst Relationship Specialty Start Date End Date Zara Evans DO [address] [place] [address] PCP - General Family Medicine 06/23/24 Marketing Information Analyst Relationship Specialty Start Date End Date Zara Evans DO [address] [place], [place] [id number] PCP - General Family Medicine 06/23/24 Marketing Information Analyst Relationship Specialty Start Date End Date Zara Evans DO [address] [place], [place] [id number] PCP - General Family Medicine 06/23/24 Marketing Information Analyst Relationship Specialty Start Date End Date Zara Evans DO [address] [place], [place] [id number] PCP - General Family Medicine 06/23/24 <item><item><item><item><item> Privacy Markings (unrecogniz ed section and content) Section Author: Elissa Murguia PROHIBITION ON REDISCLOSURE OF CONFIDENTIAL INFORMATION This notice accompanies a disclosure of information concerning a client made to you with the consent of such client. Section Author: Elissa Murguia PROHIBITION ON REDISCLOSURE OF CONFIDENTIAL INFORMATION This notice accompanies a disclosure of information concerning a client made to you with the consent of such client. Section Author: Elissa Murguia PROHIBITION ON REDISCLOSURE OF CONFIDENTIAL INFORMATION This notice accompanies a disclosure of information concerning a client made to you with the consent of such client. Section Author: Elissa Murguia PROHIBITION ON REDISCLOSURE OF CONFIDENTIAL INFORMATION This notice accompanies a disclosure of information concerning a client made to you with the consent of such client. Section Author: Elissa Murguia PROHIBITION ON REDISCLOSURE OF CONFIDENTIAL INFORMATION This notice accompanies a disclosure of information concerning a client made to you with the consent of such client. Scheduled Active and Recently Administ ered Medications (unrecognized section and content) Medication Order 12/02/2023 12/03/2023 12/04/2023 morphine injection 4 mg (COMPLETED) 4 mg, intravenous, Once, On Antonia 12/04/23 at 1115, For 1 dose 1139 (Given - Provid er: Yadira Haile RN) ondansetron (Zofran) injection 4 mg (COMPLETED) 4 mg, intravenous, Once, On [place] 12/04/23 at 1115, For 1 dose, When administering via IV Push, administer over 3-5 minutes. 1139 (Given - Provid er: Yadira Haile RN) Scheduled Medication Order 01/27/2024 01/28/2024 01/29/2024 ibuprofen tablet 400 mg (COMPLETED) 400 mg, oral, Once, On Antonia 01/29/24 at 0745, For 1 dose, May administer with food to reduce GI upset., If ordered PRN for pain, nurse is permitted to administer this medication for higher pain scores based on patient preference? Yes 0816 (Given - Provid er: Ann Hill RN) Scheduled Medication Order 07/07/2024 07/08/2024 07/09/2024 acetaminophen (Tylenol) tablet 975 mg (COMPLETED) 975 mg, oral, Once, On Fri07/09/24 at 1125, For 1 dose, If ordered PRN for pain, nurse is permitted to administer this medication for higher pain scores based on patient preference? Yes 1128 (Given - Provid er: Saida Fairbanks RN) oxyCODONE (Roxicodone) immediate release tablet 5 mg (COMPLETED) 5 mg, oral, Once, On Fri07/09/24 at 1125, For 1 dose, If ordered PRN for pain, nurse is permitted to administer this medication for higher pain scores based on patient preference? Yes, Indications: pain 1128 (Given - Provid er: Saida Fairbanks RN) FOR RECORDS PERTAINING TO PATIENTS WHO ARE OR HAVE BEEN ENROLLED IN A CHEMICAL DEPENDENCY/SUBSTANCEABUSE PROGRAM, SOME INFORMATION MAY BE OMITTED. This clinical summary was aggregated from multiple sources. Caution should be exercised in using it in the provision of clinical care. This summary normalizes information from multiple sources, and as a consequence, information in this document may materially change the coding, format and clinical context of patient data. In addition, data may be omitted in some cases. CLINICAL DECISIONS SHOULD BE BASED ON THE PRIMARY CLINICAL RECORDS. [employer] provides no warranty or guarantee of the accuracy or completeness of information in this document.
--- OUTSIDE RECORDS SUMMARY | 2024-12-18 21:24 | XMS RPT_ITS | CCD ---
Author Organization [facility] Care Team Providers Care Instrument Assembly Supervisor Name Role Phone Unavailable Unavailable Unavailable Letha Alli Unavailable Unavailable Antwan Watters Unavailable Unavailable Alli Monae Unavailable Unavailable Antwan Watters Unavailable Unavailable Antwan Maharaj Unavailable Unavailable Antwan Maharaj Unavailable Unavailable Antwan Maharaj Unavailable Unavailable Antwan Maharaj Unavailable Unavailable Antwan Maharaj Unavailable Unavailable Antwan Maharaj Unavailable Unavailable Antwan Watters Primary Care Provider [phone] Antwan Watters Unavailable Antwan Maharaj Primary Care Provider Antwan Maharaj MD Primary Care Provider MINA ORTIZ Attending Unavailable MINA ORTIZ Referring Unavailable ANTWAN MAHARAJ Primary Care Unavailable Antwan Maharaj Unavailable France Lowe Unavailable Unavailable Antwan Maharaj MD Primary Care Provider Erickson Hernandez Unavailable Sharmaine Kelly I Unavailable [...] Oberhauser DO, Rafa L Primary Care Provider [phone] HUY VASQUEZ Referring Unavailable HUY VASQUEZ Attending [...] Unavailable OBERHAUSER, RAFA L Primary Care Unavailable JASMYN WADE Attending Unavailable TRACY HILLIARD Referring Unavailable [...] OBERHAUSER, RAFA L Primary Care Unavailable MILES HE Attending Unavailable CRISTINA, ZARA R. Primary Care Unavailable NEO CASTREJON Attending Unavailable ANTWAN MAHARAJ Primary Care Unavailable [...] Attending Unavailable MOVENS, SHELLEY ANURADHA Admitting Unavailable CRISTINA, [...] Attending Unavailable CREKIRILL ENG Admitting Unavailab le [facility] Consulting MODESTA Rangel Attending Unavailable CRISTINA, ZARA R. Primary Care Unavailable ELIZABETH KIMBLE Attending Unavailable TOMCHAANTWNA Lay Primary Care Unavailable VIAU, SACHIN MORENO [...] mouth every six hours for pain HYDROcodone-acetaminophen ([place]) 5-325 mg tablet Indications: Contusion of right [...] Active docusate sodium 50 mg / sennosides, long-term 8.6 mg oral tablet (20 sources) Start: [...] PM EST 12/24/2023 12/23/2024 Active estrogens, conjugated (long-term) 0.625 mg/ml vaginal cream (20 sources) Estrogen [...] Ordered: 09-Aug-2022 Chan Stephens Generic Substitution Allowed ajavludq-lih-kmjqwys fumarate 15 mg iron Tab (20 sources) Start: 08-19-2024 take 1 tablet by mouth once daily in the morning hltbjutr-duu-zjdekfn fumarate 15 mg iron Tab Indications: Frequent falls Take 1 tablet by mouth every morning . 90 tablet 3 08/19/2024 Active Start: 11-09-2023 End: 08-19-2024 take 1 tablet by mouth once daily in the morning pyhkfmzs-hjk-kqadngj fumarate 15 mg iron Tab Take 1 tablet by mouth every morning . 11/09/2023 08/19/2024 Discontinued (Reorder (Suppress CancelRx Message to Pharmacy)) Start: 11-09-2023 take 1 tablet by lopez th once daily in the morning melsewri-uxc-ritrdce fumarate 15 mg iron Tab Take 1 tablet by mouth every morning . 11/09/2023 Active qigatuwv-nnm-blwjpnl fumarate 15 mg iron tablet (3 sources) Start: 03-08-2024 take 1 tablet by mouth once daily ggvmkxut-inx-sbmuddb fumarate 15 mg iron tablet Take 1 tablet by mouth once daily. 03/08/2024 Active eefnfvyb-neu-mmcn fum-folic ac 7.5 mg iron-400 mcg tablet (9 sources) Start: 10-07-2023 ltoxlmsv-wqi-v adolfo fum-folic ac 7.5 mg iron-400 mcg tablet Indications: Healthcare maintenance GIVE 1 TABLET BY MOUTH ONCE DAILY FOR SUPPLEMENT *GETTING FILLED LOCALLY* 30 tablet 10/07/2023 Active MULTIVITAMIN ORAL (20 sources) MULTIVITAMIN ORA L Take 1 tablet by mouth . Active MULTIVITAMIN ORA L Take by mouth . 0 Active multivitamin with minerals (zihxhabf-uyq-dqpc fum-folic ac) tablet (9 sources) Start: 10-14-2023 End: 10-13-2024 take 1 tablet by mouth once daily before mealtime multivitamin with minerals (gjmmourq-phx-wbge fum-folic ac) tablet Indications: Stage 3a chronic [...] daily . 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 [id number] MTB SCREEN INTERPRETATION Negative Normal Negative [facility] Amb[facility] Comment on above: Result Comment: No I FN-gamma response to M tuberculosis antigens was detected. Latent infection with M tuberculosis is unlikely. A single negative result does not exclude infection with M tuberculosis. In patients at high risk for M tuberculosis infection,a second test should be considered Performed By: #### L [id number] #### [facility] [address] [place] [address] Kirill Noe M.D. [id number] NIL 0.19468 IU/mL Normal [facility] Comment on above: Performed By: #### L [id number] #### [facility] [address] [place] [address] Kirill Noe M.D. [id number] TB1-NIL -0.90056 IU/mL Normal 0.00 0.34 [facility] Amb[facility] Comment on above: Performed By: #### L [id number] #### [facility] [address] [place] [address] Kirill Noe M.D. [id number] TB2-NIL 0.42305 IU/mL Normal 0.00 0.34 [facility] Comment on above: Result Comment: Inte [...] out TB Infection. Performed By: #### L [id number] #### [facility] [address] [address] Kirill Noe M.D. [id number] XR UPPER GI W/SMALL BOWEL FO LLOW [...] FriSep 30, 2024 11:42:03 AM EDT Normal [facility] Comment on above: Order Comment: Injur [...] By: #### 6 517 #### [facility] [place] [address] Retort Load Expediter: Russell Pagan MD ALBUMIN/CREATININE RATIO, RANDOM URINE [...] By: #### 6 517 #### [facility] [place] [address] Retort Load Expediter: Russell Pagan MD Creatinine (U) [Mass/Vol] 36 mg/dL Normal 20-275 [facility] Comment on above: Order Comment: FASTI NG:NO FASTING: NO Performed By: #### 6 517 #### [facility] [place] [address] Retort Load Expediter: Russell Pagan MD HEMOGLOBIN A1con 09-22-2024 HbA1c [...] children. Performed By: #### 4 96 #### [address], [address] [place] [address] Retort Load Expediter: Russell Pagan MD POC GLUCOSE - [facility] 025 Glucose [Mass/Vol] 218 mg/dL [address] Comment on above: Performed By: #### 4 6932 ####[facility] [address] [address] David Mcclain M.D. [id number] Glucose [Mass/Vol] 143 mg/dL [address] Comment on above: Performed By: #### 4 6932 #### [facility] [address] [address] David Mcclain M.D. [id number] POC GLUCOSE - [facility] 025 Glucose [Mass/Vol] 170 mg/dL [address] Comment on above: Performed By: #### 4 6932 #### LAB [address] [place] [address] David Mcclain M.D. [id number] Glucose [Mass/Vol] 134 mg/dL [address] Comment on above: Performed By: #### 4 6932 #### [facility] [address] [address] David Mcclain M.D. [id number] Glucose [Mass/Vol] 154 mg/dL [address] Comment on above: Performed By: #### 4 6932 ####[facility] [address] [place] [address] David Mcclain M.D. [id number] Glucose [Mass/Vol] 120 mg/dL [address] Comment on above: Performed By: #### 4 6932 #### [facility] [address] [address] David Mcclain M.D. [id number] POC GLUCOSE - [facility] 025 Glucose [Mass/Vol] 107 mg/dL [address] Comment on above: Performed By: #### 4 6932 #### LAB [address] [place] [address] David Mcclain M.D. [id number] Glucose [Mass/Vol] 106 mg/dL [address] Comment on above: Performed By: #### 4 6932 #### [facility] [address] [address] David Mcclain M.D. [id number] LIPASEon 07-20-2024 Lipase [Catalytic activity/Vol] 36 U/L [place] [facility] Comment on above: Performed By: #### 4 6937 #### [facility] [address] [address] David Mclcain M.D. [id number] POC GLUCOSE - [facility] 025 Glucose [Mass/Vol] 131 mg/dL [address] Comment on above: Performed By: #### 4 6932 #### LAB [address] [place] [address] David Mcclain M.D. [id number] Glucose [Mass/Vol] 147 mg/dL [address] Comment on above: Performed By: #### 4 6948 ####[facility] [address] [id number] David Mcclain M.D. [id number] Glucose [Mass/Vol] 131 mg/dL [address] Comment on above: Performed By: #### 4 1886 #### [facility] [address] [address] David Mcclain M.D. [id number] Glucose [Mass/Vol] 160 mg/dL High 65-99 [facility] Comment on above: Performed By: #### 4 6932 #### LAB [address] [place], [place] [address] David Mcclain M.D. [id number] URINE AEROBIC CULTUREon 07-10 URINE AEROBIC CULTURE [...] Extended Susc Islt S Negative F Abnormal [facility] Comment on above: Performed By: #### 4 6932 #### LAB [address] [place], [place] [address] David Mcclain M.D. [id number] APTTon 07-19-2024 aPTT Coag (Bld) [Time] 23 s Normal 23-34 [facility] Comment on above: Order Comment: Thera peutic range for APTT's is 68 - 104 seconds Performed By: #### 4 5113 #### LAB [address] [place], [place] [address] David Mcclain M.D. [id number] CBC WITH AUTO DIFFERENTIALon 07-19-2024 AUTO NRBC 0.0 % Normal [facility] Comment on above: Performed By: #### 4 6932 #### LAB [address] [address] David Mcclain M.D. [id number] AUTO NRBC ABS COUNT 0.00 K/mcL Normal 0.00-0.00 [facility] Comment on above: Performed By: #### 4 6932 #### LAB [address] [place] [address] David Mcclain M.D. [id number] BASOPHILS ABSOLUTE COUNT 0.01 K/mcL Normal 0.00-0.30 [facility] Comment on above: Performed By: #### 4 6976 #### LAB [address] [place] [address] David Mcclain M.D. [id number] Basophils/100 WBC (Bld) 0.2 % Normal [facility] Comment on above: Performed By: #### 4 6954 #### LAB [address] [place] [address] David Mcclain M.D. [id number] Eosinophils (Bld) [#/Vol] 0.20 10*3/uL Normal 0.00-0.50 [facility] Comment on above: Performed By: #### 4 2831 #### LAB [address] [place] [address] David Mcclain M.D. [id number] Eosinophils/100 WBC (Bld) 3.3 % Normal [facility] Comment on above: Performed By: #### 4 5050 #### LAB [address] [place] [address] David Mcclain M.D. [id number] Erythrocyte distribution width (RBC) [Ratio] 13.3 % Normal 11.6-14.8 [facility] Comment on above: Performed By: #### 4 1613 #### LAB [address] [place] [address] David Mcclain M.D. [id number] Hematocrit (Bld) [Volume fraction] 47.7 % High 36.0-46.0 [facility] Comment on above: Performed By: #### 4 7527 #### LAB [address] [place] [address] David Mcclain M.D. [id number] Hemoglobin (Bld) [Mass/Vol] 14.4 g/dL Normal 12.0-16.0 [facility] Comment on above: Performed By: #### 4 6988 #### LAB [address] [place] [address] David Mcclain M.D. [id number] IG ABSOLUTE 0.02 K/mcL Normal 0.00-0.30 [facility] Comment on above: Performed By: #### 4 6923 #### LAB [address] [place] [address] David Mcclain M.D. [id number] IG PERCENT 0.30 % Normal [facility] Comment on above: Result Comment: The IG parameter is the percentage of metamyelocytes, myelocytes and promyelocytes. An immature granulocyte count (IG) of 1% or more suggests the possibility of infection, an IG count of 3% is very likely related to an infection. Performed By: #### 4 4944 #### LAB [address] [place] [address] David Mcclain M.D. [id number] Lymphocytes (Bld) [#/Vol] 0.92 10*3/uL Normal 0.90-4.00 [facility] Comment on above: Performed By: #### 4 6924 #### LAB [address] [place] [address] David Mcclain M.D. [id number] Lymphocytes/100 WBC (Bld) 15.4 % Normal [facility] Comment on above: Performed By: #### 4 6915 #### LAB [address] [place] [address] David Mcclain M.D. [id number] MCH (RBC) [Entitic mass] 28.7 pg Normal 26.0-34.0 [facility] Comment on above: Performed By: #### 4 6940 #### LAB [address] [address] David Mcclain M.D. [id number] MCV (RBC) [Entitic vol] 95.0 fL Normal 80.0-100.0 [facility] Comment on above: Performed By: #### 4 6954 #### LAB [address] [address] David Mcclain M.D. [id number] MEAN CORPUSCULAR HEMOGLOBIN CONC 30.2 g/dL Low 31.0-37.0 [facility] Comment on above: Performed By: #### 4 6962 #### LAB [address] [place] [address] David Mcclain M.D. [id number] Monocytes (Bld) [#/Vol] 0.40 10*3/uL Normal 0.30-0.90 [facility] Comment on above: Performed By: #### 4 6998 #### LAB [address] [place] [address] David Mcclain M.D. [id number] Monocytes/100 WBC (Bld) 6.7 % Normal [facility] Comment on above: Performed By: #### 4 8537 #### LAB [address] [place] [address] David Mcclain M.D. [id number] NEUTROPHILS ABSOLUTE COUNT 4.43 K/mcL Normal 1.70-7.00 [facility] Comment on above: Performed By: #### 4 6914 #### LAB [address] [place] [address] David Mcclain M.D. [id number] Neutrophils/100 WBC (Bld) 74.1 % Normal [facility] Comment on above: Performed By: #### 4 2454 #### LAB [address] [place] [address] David Mcclain M.D. [id number] Platelet mean volume (Bld) [Entitic vol] 10.4 fL Normal 9.4-12.4 [facility] Comment on above: Performed By: #### 4 5004 #### LAB [address] [address] David Mcclain M.D. [id number] Platelets (Bld) [#/Vol] 294 10*3/uL Normal 150-400 [facility] Comment on above: Performed By: #### 4 6932 #### LAB [address] [address] David Mcclain M.D. [id number] RBC (Bld) [#/Vol] 5.02 10*6/uL Normal 4.00-5.20 [facility] Comment on above: Performed By: #### 4 6932 #### LAB [address] [place] [address] David Mcclain M.D. [id number] WBC (Bld) [#/Vol] 5.98 10*3/uL Normal 4.50-11.00 [facility] Comment on above: Performed By: #### 4 6932 #### LAB [address] [place] [address] David Mcclain M.D. [id number] COMPREHENSIVE METABOLIC PANE Huan 07-19-2024 Albumin [Mass/Vol] 4.4 g/dL Normal 3.2-5.2 [facility] Comment on above: Order Comment: [facility] has implemented the eGFR calculation approach that does not have a coefficient for race that conforms to the NKF-ASN Task Force Recommendations. Performed By: #### 4 6932 #### LAB [address] [place] [address] David Mcclain M.D. [id number] ALP [Catalytic activity/Vol] 68 U/L Normal 40-150 [facility] Comment on above: Order Comment: [facility] has implemented the eGFR calculation approach that does not have a coefficient for race that conforms to the NKF-ASN Task Force Recommendations. Performed By: #### 4 6932 #### LAB [address] [place] [address] David Mcclain M.D. [id number] ALT [Catalytic activity/Vol] 15 U/L Normal 0-35 U/L [facility] Comment on above: Order Comment: [facility] has implemented the eGFR calculation approach that does not have a coefficient for race that conforms to the NKF-ASN Task Force Recommendations. Performed By: #### 4 6932 #### LAB [address] [place] [id number] David Mcclain M.D. [id number] Anion gap [Moles/Vol] 18 mmol/L Normal 10-20 [facility] Comment on above: Order Comment: [facility] has implemented the eGFR calculation approach that does not have a coefficient for race that conforms to the NKF-ASN Task Force Recommendations. Performed By: #### 4 6932 #### LAB [address] [address] David Mcclain M.D. [id number] AST [Catalytic activity/Vol] 17 U/L Normal 0-35 U/L [facility] Comment on above: Order Comment: [facility] has implemented the eGFR calculation approach that does not have a coefficient for race that conforms to the NKF-ASN Task Force Recommendations. Performed By: #### 4 6932 #### LAB [address] [place] [address] David Mcclain M.D. [id number] Bilirubin [Mass/Vol] 0.2 mg/dL Normal 0.0-1.3 [facility] Comment on above: Order Comment: [facility] has implemented the eGFR calculation approach that does not have a coefficient for race that conforms to the NKF-ASN Task Force Recommendations. Performed By: #### 4 6932 #### LAB [address] [address] David Mcclain M.D. [id number] Calcium [Mass/Vol] 9.8 mg/dL Normal 8.4-10.2 [facility] Comment on above: Order Comment: [facility] has implemented the eGFR calculation approach that does not have a coefficient for race that conforms to the NKF-ASN Task Force Recommendations. Performed By: #### 4 6932 #### LAB [address] [id number] David Mcclain M.D. [id number] Chloride [Moles/Vol] 103 mmol/L Normal 98-108 [facility] Comment on above: Order Comment: [facility] has implemented the eGFR calculation approach that does not have a coefficient for race that conforms to the NKF-ASN Task Force Recommendations. Performed By: #### 4 6932 #### LAB [address] [place], [place] [address] David Mcclain M.D. [id number] Creatinine [Mass/Vol] 0.94 mg/dL Normal 0.60-1.10 [facility] Comment on above: Order Comment: [facility] has implemented the eGFR calculation approach that does not have a coefficient for race that conforms to the NKF-ASN Task Force Recommendations. Performed By: #### 4 6932 #### LAB [address] [place] [address] David Mcclain M.D. [id number] EGFR 68 mL/min/1.73 m2 Normal >=60 [facility] Comment on above: Order Comment: [facility] has implemented the eGFR calculation approach that does not have a coefficient for race that conforms to the NKF-ASN Task Force Recommendations. Result Comment: Velasquez mated GFR was calculated using the 2020 CKD-EPI creatinine equation. Performed By: #### 4 6932 #### LAB [address] [place], [place] [address] David Mcclain M.D. [id number] Glucose [Mass/Vol] 140 mg/dL High 65-99 [facility] Comment on above: Order Comment: [facility] has implemented the eGFR calculation approach that does not have a coefficient for race that conforms to the NKF-ASN Task Force Recommendations. Performed By: #### 4 6932 #### [facility] [address] [place], [place] [address] David Mcclain M.D. [id number] HCO3 (Bld) [Moles/Vol] 25 mmol/L Normal 21-32 [facility] Comment on above: Order Comment: [facility] has implemented the eGFR calculation approach that does not have a coefficient for race that conforms to the NKF-ASN Task Force Recommendations. Performed By: #### 4 6932 #### LAB [address] [place], [place] [address] David Mcclain M.D. [id number] Potassium [Moles/Vol] 4.2 mmol/L Normal 3.5-5.1 [facility] Comment on above: Order Comment: [facility] has implemented the eGFR calculation approach that does not have a coefficient for race that conforms to the NKF-ASN Task Force Recommendations. Performed By: #### 4 6932 #### LAB [address] [place], [place] [address] David Mcclain M.D. [id number] Protein [Mass/Vol] 7.5 g/dL Normal 6.0-8.0 [facility] Comment on above: Order Comment: [facility] has implemented the eGFR calculation approach that does not have a coefficient for race that conforms to the NKF-ASN Task Force Recommendations. Performed By: #### 4 6932 #### [facility] [address] [place] [address] David Mcclain M.D. [id number] Sodium [Moles/Vol] 142 mmol/L Normal 135-145 [facility] Comment on above: Order Comment: [facility] has implemented the eGFR calculation approach that does not have a coefficient for race that conforms to the NKF-ASN Task Force Recommendations. Performed By: #### 4 6932 #### LAB [address] [place] [id number] David Mcclain M.D. [id number] Urea nitrogen [Mass/Vol] 30 mg/dL High 8-25 [facility] Comment on above: Order Comment: [facility] has implemented the eGFR calculation approach that does not have a coefficient for race that conforms to the NKF-ASN Task Force Recommendations. Performed By: #### 4 6932 #### LAB [address] [place], [place] [address] David Mcclain M.D. [id number] Urea nitrogen/Creatinine [Mass ratio] 31.9 mg/mg High 10.0-20.0 [facility] Comment on above: Order Comment: [facility] has implemented the eGFR calculation approach that does not have a coefficient for race that conforms to the NKF-ASN Task Force Recommendations. Performed By: #### 4 6932 #### LAB [address] [place], [place] [address] David Mcclain M.D. [id number] COVID-19/INFLUENZA A,B MOLEC ULARon 07-19-2024 SARS-CoV-2 (COVID-19) Ab IA Ql SARS-COV-2 (LEE ANN) Not Detected INFLUENZA A (LEE ANN) Not Detected INFLUENZA B (LEE ANN) Not Detected Normal Not Detected [facility] Comment on above: Performed By: #### L [id number] #### LAB [address] [place], [place] [address] David Mcclain M.D. [id number] CT CERVICAL SPINE WITHOUT CO NTRASTon 07-19-2024 [...] cervical canal hematoma. DEGENERATIVE CHANGES: There is dgkq-yf-dfkxxmxv multilevel discogenic disease and degenerative facet and [...] and th (more content not included)... Normal [facility] Comment on above: Order Comment: Injur [...] cervical canal hematoma. DEGENERATIVE CHANGES: There is irpo-kc-nnzfctpm multilevel discogenic disease and degenerative facet and [...] and th (more content not included)... Normal [facility] Comment on above: Order Comment: Injur [...] cervical canal hematoma. DEGENERATIVE CHANGES: There is viax-su-sjwtzxes multilevel discogenic disease and degenerative facet and [...] and th (more content not included)... Normal [facility] Comment on above: Order Comment: Injur y/Trauma or Illness?:Illness/OtherHow long have you had these symptoms (acute/chronic)?:AcuteReason for exam?:frequent falls, head pain and back painType of Exam?:InitialAdditional signs and symptoms?:fall ED Prov Noteon 07-19-2024 ED Prov Note [facility] EMERGENCY DEPARTMENT ATTENDING NOTE: NAME: Shaji Esquivel CSN: [id number] 63 y.o. PCP: Zara Evans DO History: Chief Complaint: Fall HPI: 63-year-old female past medical history of hypertension hyperlipidemia diabetes subarachnoid hemorrhage presents to the emergency department from retirement assisted living facility for evaluation of multiple falls that been progressively worsening over the past 2 weeks. No specific alleviating or aggravating factors. Today, per compensation agent, patient fell from chair hit back of [...] answer Stress: Patient Unable To Answer (07/13/2024) [place] - Occupational Stress Questionnaire [...] total) on top of tongue nightly . gbphdvsr-vur-jqbopdo fumarate 15 mg iron Tab Take 1 tablet by mouth every morning . MULTIVITAMIN ORAL Take (more content not included)... Normal [facility] LIPASEon 07-19-2024 Lipase [Catalytic activity/Vol] 56 U/L Normal 15-65 [facility] Comment on above: Performed By: #### 4 6984 #### LAB [address] [address] David Mcclain M.D. [id number] POC GLUCOSE - [facility] 025 Glucose [Mass/Vol] 124 mg/dL High 65- [facility] Comment on above: Performed By: #### 4 6987 #### LAB [address] [place], [place] [address] David Mcclain M.D. [id number] Glucose [Mass/Vol] 125 mg/dL High 65-99 [facility] Comment on above: Performed By: #### 4 6919 #### LAB [address] [id number] David Mcclain M.D. [id number] PT/INRon 07-19-2024 INR Coag (PPP) [Relative time] 1.0 {INR} Normal 0.8-1.1 [facility] Comment on above: Order Comment: Chantel saunders the induction phase of oral anticoagulation, the INR may not reflect the anticoagulation status of the patient. Therapeutic ranges for INR's are:Most clinical situations: INR 2.0-3.0Mechanical Prosthetic Valve: INR 2.5-3.5Critical: INR >5.0 Performed By: #### 4 6992 #### LAB [address] [address] David Mcclain M.D. [id number] PT Coag (PPP) [Time] 13.2 s Normal 11.8-14.3 [facility] Comment on above: Order Comment: Chantel saunders the induction phase of oral anticoagulation, the INR may not reflect the anticoagulation status of the patient. Therapeutic ranges for INR's are:Most clinical situations: INR 2.0-3.0Mechanical Prosthetic Valve: INR 2.5-3.5Critical: INR >5.0 Performed By: #### 4 6991 #### LAB [address] [address] David Mcclain M.D. [id number] T4, FREEon 07-19-2024 Free T4 [Mass/Vol] 1.6 ng/dL Normal 0.7-1.7 [facility] Comment on above: Performed By: #### 4 6592 #### LAB [address] [address] David Mcclain M.D. [id number] TROPONINon 07-19-2024 BASELINE TROPONIN T NG/L 18 ng/L Off scale high <=14 [facility] Comment on above: Performed By: #### 4 6930 #### LAB [address] [address] David Mcclain M.D. [id number] TROPONIN T INTERPRETATION Possible acute cardiac injury. Normal [facility] Comment on above: Performed By: #### 4 6932 #### MH LAB [address] [address] David Mcclain M.D. [id number] TSHon 07-19-2024 TSH Qn 3.18 m[IU]/L Normal 0.27-4.20 [facility] Comment on above: Performed By: #### 4 6613 #### LAB [address] [address] aDvid Mcclain M.D. [id number] URINALYSISon 07-19-2024 BACTERIA, URINE Many Abnormal None Seen [facility] Comment on above: Order Comment: Micro scopic examination is performed on all urinalysis samples and only positive findings are reported. The test for blood on the chemical analytic portion of urinalysis may also be positive due to hemoglobinuria and myoglobinuria and if red blood cells are present they are quantified by microscopic examination. Performed By: #### 4 6932 #### LAB [address] [address] David Mcclain M.D. [id number] BILIRUBIN, URINE Negative Normal Negative [facility] Comment on above: Order Comment: Micro scopic examination is performed on all urinalysis samples and only positive findings are reported. The test for blood on the chemical analytic portion of urinalysis may also be positive due to hemoglobinuria and myoglobinuria and if red blood cells are present they are quantified by microscopic examination. Performed By: #### 4 6932 #### LAB [address] [address] David Mcclain M.D. [id number] BLOOD, URINE Negative Normal Negative [facility] Comment on above: Order Comment: Micro scopic examination is performed on all urinalysis samples and only positive findings are reported. The test for blood on the chemical analytic portion of urinalysis may also be positive due to hemoglobinuria and myoglobinuria and if red blood cells are present they are quantified by microscopic examination. Performed By: #### 4 6932 #### LAB [address] [address] David Mcclain M.D. [id number] Clarity (U) Cloudy Abnormal Clear [facility] Comment on above: Order Comment: Micro scopic examination is performed on all urinalysis samples and only positive findings are reported. The test for blood on the chemical analytic portion of urinalysis may also be positive due to hemoglobinuria and myoglobinuria and if red blood cells are present they are quantified by microscopic examination. Performed By: #### 4 6932 #### LAB [address] [address] David Mcclain M.D. [id number] Color (U) Yellow Normal Colorless, Yellow [facility] Comment on above: Order Comment: Micro scopic examination is performed on all urinalysis samples and only positive findings are reported. The test for blood on the chemical analytic portion of urinalysis may also be positive due to hemoglobinuria and myoglobinuria and if red blood cells are present they are quantified by microscopic examination. Performed By: #### 4 6932 #### LAB [address] [place] [address] David Mcclain M.D. [id number] Glucose Ql (U) >=500 Abnormal Negative, >=1000 [facility] Comment on above: Order Comment: Micro scopic examination is performed on all urinalysis samples and only positive findings are reported. The test for blood on the chemical analytic portion of urinalysis may also be positive due to hemoglobinuria and myoglobinuria and if red blood cells are present they are quantified by microscopic examination. Performed By: #### 4 6932 #### LAB [address] [place] [address] David Mcclain M.D. [id number] Ketones Ql (U) Trace Abnormal Negative [facility] Comment on above: Order Comment: Micro scopic examination is performed on all urinalysis samples and only positive findings are reported. The test for blood on the chemical analytic portion of urinalysis may also be positive due to hemoglobinuria and myoglobinuria and if red blood cells are present they are quantified by microscopic examination. Performed By: #### 4 6932 #### LAB [address] [address] David Mcclain M.D. [id number] Leukocyte esterase Test strip Ql (U) Small Abnormal Negative [facility] Comment on above: Order Comment: Micro scopic examination is performed on all urinalysis samples and only positive findings are reported. The test for blood on the chemical analytic portion of urinalysis may also be positive due to hemoglobinuria and myoglobinuria and if red blood cells are present they are quantified by microscopic examination. Performed By: #### 4 6932 #### LAB [address] [address] David Mcclain M.D. [id number] MUCUS, URINE Rare Normal None Seen, Rare [facility] Comment on above: Order Comment: Micro scopic examination is performed on all urinalysis samples and only positive findings are reported. The test for blood on the chemical analytic portion of urinalysis may also be positive due to hemoglobinuria and myoglobinuria and if red blood cells are present they are quantified by microscopic examination. Performed By: #### 4 6932 #### LAB [address] [place] [address] David Mcclain M.D. [id number] NITRITE, URINE Negative Normal Negative [facility] Comment on above: Order Comment: Micro scopic examination is performed on all urinalysis samples and only positive findings are reported. The test for blood on the chemical analytic portion of urinalysis may also be positive due to hemoglobinuria and myoglobinuria and if red blood cells are present they are quantified by microscopic examination. Performed By: #### 4 6932 #### LAB [address] [address] David Mcclain M.D. [id number] pH (U) 6.5 [pH] Normal 5.0-7.0 [facility] Comment on above: Order Comment: Micro scopic examination is performed on all urinalysis samples and only positive findings are reported. The test for blood on the chemical analytic portion of urinalysis may also be positive due to hemoglobinuria and myoglobinuria and if red blood cells are present they are quantified by microscopic examination. Performed By: #### 4 6932 #### LAB [address] [address] David Mcclain M.D. [id number] PROTEIN, URINE Negative Normal Negative [facility] Comment on above: Order Comment: Micro scopic examination is performed on all urinalysis samples and only positive findings are reported. The test for blood on the chemical analytic portion of urinalysis may also be positive due to hemoglobinuria and myoglobinuria and if red blood cells are present they are quantified by microscopic examination. Performed By: #### 4 6932 #### LAB [address] [address] David Mcclain M.D. [id number] Specific gravity (U) [Rel density] 1.028 High 1.005-1.025 [facility] Comment on above: Order Comment: Micro scopic examination is performed on all urinalysis samples and only positive findings are reported. The test for blood on the chemical analytic portion of urinalysis may also be positive due to hemoglobinuria and myoglobinuria and if red blood cells are present they are quantified by microscopic examination. Performed By: #### 4 6932 #### [facility] LAB [address] [address] David Mcclain M.D. [id number] SQUAMOUS EPITHELIAL 8 /hpf High 0-4 [facility] Comment on above: Order Comment: Micro scopic examination is performed on all urinalysis samples and only positive findings are reported. The test for blood on the chemical analytic portion of urinalysis may also be positive due to hemoglobinuria and myoglobinuria and if red blood cells are present they are quantified by microscopic examination. Performed By: #### 4 6932 #### LAB [address] [address] David Mcclain M.D. [id number] UROBILINOGEN, URINE <2.0 Normal <2.0 [facility] Comment on above: Order Comment: Micro scopic examination is performed on all urinalysis samples and only positive findings are reported. The test for blood on the chemical analytic portion of urinalysis may also be positive due to hemoglobinuria and myoglobinuria and if red blood cells are present they are quantified by microscopic examination. Performed By: #### 4 6932 #### LAB [address] [address] David Mcclain M.D. [id number] WBC LM.HPF (Urine sed) [#/Area] 14 /[HPF] High 0-5 [facility] Comment on above: Order Comment: Micro [...] 4 6932 #### LAB [address] [place], [place] [address] David Mcclain M.D. [id number] XR CHEST PA/APon 07-19-2024 XR CHEST PA/AP [...] FriJul 19, 2024 7:52:01 AM EST Normal [facility] Comment on above: Order Comment: Injur [...] on FriJul 19, 2024 8:28:53 AM EST [facility] Comment on above: Order Comment: Injur y/Trauma [...] on FriJul 19, 2024 8:28:44 AM EST [facility] Comment on above: Order Comment: Injur y/Trauma [...] FriJul 14, 2024 5:20:31 PM EST Normal [facility] Comment on above: Order Comment: Injur [...] FriJul 14, 2024 5:17:12 PM EST Normal [facility] Comment on above: Order Comment: Injur y/Trauma or Illness?:Injury/Trauma How long have you had these symptoms (acute/chronic)?:Acute Reason for exam?:fall History of cancer?:u Surgeries, chemotherapy, or radiation?:u Type of Exam?:Initial Mechanism of injury?:. ED Prov Noteon 07-14-2024 ED Prov Note [facility] EMERGENCY DEPARTMENT ATTENDING NOTE: NAME: Shaji Esquivel CSN: [id number] 63 y.o. PCP: Zara Evans DO History: Chief Complaint: Fall HPI: The history was obtained from the patient and jail. Shaji is a 63 y.o. female who [...] answer Stress: Patient Unable To Answer (07/13/2024) [place] [employer] - Occupational Stress Questionnaire [...] (500 mg (more content not included)... Normal [facility] XR PELVIS 1 VIEW (STANDARD)o n [...] FriJul 14, 2024 5:45:52 PM EST Normal [facility] Comment on above: Order Comment: Injur y/Trauma or Illness?:Illness/OtherHow long have you had these symptoms (acute/chronic)?:AcuteReason for exam?:Fall, history of dementia, no LOC, right-sided forehead hematoma, poor historianHistory of cancer?:uSurgeries, chemotherapy, or radiation?:uType of Exam?:InitialAdditional signs and symptoms?:. No Panel Informationon 07-09 Radiology Study observation (narrative) [facility] Work Phone: XR HIP RIGHT WITH PELVIS WHE N PERFORMED 2 OR 3 VIEWSon 07-09-2024 XR HIP RIGHT WITH PELVIS WHEN PERFORMED 2 OR 3 VIEWS Interpreted By: Alexys Moran, STUDY: XR HIP RIGHT WITH PELVIS WHEN PERFORMED 2 OR 3 VIEWS; ; 07/09/2024 12:08 pm INDICATION: Signs/Symptoms:pain after fall. COMPARISON: 12/13/2016 ACCESSION NUMBER(S): [id number] ORDERING CLINICIAN: MILES HE FINDINGS: Right hip, three views There is no acute fracture dislocation. There is no malalignment. No significant degenerative changes seen IMPRESSION: No acute fracture seen in the right hip. If there is persistent clinical concern CT can be performed for further evaluation MACRO: None Signed by: Alexys Moran 07/09/2024 12:14 PM Dictation workstation: [id number] [facility] XR Hip Viewson 07-09-2024 No acute fracture se en in the right hip. If there is persistent clinical concern CT can be performed for further evaluation MACRO: None Signed by: Alexys Moran 07/09/2024 12:14 PM Dictation workstation: [id number] [facility] Interpreted By: Alexys Combs, STUDY: XR HIP RIGHT WITH PELVIS WHEN PERFORMED 2 OR 3 VIEWS; ; 07/09/2024 12:08 pm INDICATION: Signs/Symptoms:pain after fall. COMPARISON: 12/13/2016 ACCESSION NUMBER(S): [id number] ORDERING CLINICIAN: MILES HE FINDINGS: Right hip, three views There is no acute fracture dislocation. There is no malalignment. No significant degenerative changes seen [facility] Alexys Moran MD - 07/09/2024 Interpreted By: Alexys Moran STUDY: XR HIP RIGHT WITH PELVIS WHEN PERFORMED 2 OR 3 VIEWS; ; 07/09/2024 12:08 pm INDICATION: Signs/Symptoms:pain after fall. COMPARISON: 12/13/2016 ACCESSION NUMBER(S): [id number] ORDERING CLINICIAN: MILES HE FINDINGS: Right hip, three views There is no acute fracture dislocation. There is no malalignment. No significant degenerative changes seen IMPRESSION: No acute fracture seen in the right hip. If there is persistent clinical concern CT can be performed for further evaluation MACRO: None Signed by: Alexys Moran 07/09/2024 12:14 PM Dictation workstation: [id number] [facility] Work Phone: [facility] Work Phone: XR KNEE RIGHT 1-2 VIEWSon XR KNEE RIGHT 1-2 VIEWS Interpreted By: Alexys Moran, STUDY: XR KNEE RIGHT 1-2 VIEWS; ; 07/09/2024 12:08 pm INDICATION: Signs/Symptoms:pain after fall. COMPARISON: 01/29/2020 ACCESSION NUMBER(S): [id number] ORDERING CLINICIAN: MILES HE FINDINGS: Right knee, four views There is no evidence of a fracture. There is no dislocation. There is no effusion. Minimal osteophytosis present in the patella IMPRESSION: No acute abnormality in the right knee MACRO: None Signed by: Alexys Moran 07/09/2024 12:15 PM Dictation workstation: [id number] [facility] XR Knee - right 1 or 2 Views on 07-09-2024 No acute abnormality in the right knee MACRO: None Signed by: Alexys Moran 07/09/2024 12:15 PM Dictation workstation: [id number] [facility] Interpreted By: Alexys Combs, STUDY: XR KNEE RIGHT 1-2 VIEWS; ; 07/09/2024 12:08 pm INDICATION: Signs/Symptoms:pain after fall. COMPARISON: 01/29/2020 ACCESSION NUMBER(S): [id number] ORDERING CLINICIAN: MILES HE FINDINGS: Right knee, four views There is no evidence of a fracture. There is no dislocation. There is no effusion. Minimal osteophytosis present in the patella [facility] Alexys Moran MD - 07/09/2024 Interpreted By: Alexys Moran, STUDY: XR KNEE RIGHT 1-2 VIEWS; ; 07/09/2024 12:08 pm INDICATION: Signs/Symptoms:pain after fall. COMPARISON: 01/29/2020 ACCESSION NUMBER(S): [id number] ORDERING CLINICIAN: MILES HE FINDINGS: Right knee, four views There is no evidence of a fracture. There is no dislocation. There is no effusion. Minimal osteophytosis present in the patella IMPRESSION: No acute abnormality in the right knee MACRO: None Signed by: Alexys Moran 07/09/2024 12:15 PM Dictation workstation: [id number] [facility] Work Phone: XR Knee - right 1 or 2 Views Ordered By: Alexys Moran on 07-09-2024 [facility] Work Phone: Comprehensive metabolic 2000 panelon 06-28-2024 Albumin BCP dye [Mass/Vol] 4.5 g/dL Normal 3.4-5.0 [facility] Comment on above: Performed By: #### 2 4323-8 #### ALEKSANDR MEANS ([id number]) [facility] ([facility]) [address] [place] [address] ALP [Catalytic activity/Vol] 54 U/L Normal 33-136 [facility] Comment on above: Performed By: #### 2 4323-8 #### ALEKSANDR MEANS ([id number]) [facility] ([facility]) [address] [place] [address]287 ALT With P-5'-P [Catalytic activity/Vol] 16 U/L Normal 7-45 [facility] Comment on above: Result Comment: Haylee ents treated with Sulfasalazine may generate falsely decreased results for ALT. Performed By: #### 2 4323-8 #### ALEKSANDR MEANS ([id number]) [facility] ([facility]) [address] [place] [address] Anion gap [Moles/Vol] 17 mmol/L Normal 10-20 [facility] Comment on above: Performed By: #### 2 4323-8 #### ALEKSANDR MEANS ([id number]) [facility] ([facility]) [address] [place] [address] AST With P-5'-P [Catalytic activity/Vol] 17 U/L Normal 9-39 [facility] Comment on above: Performed By: #### 2 4323-8 #### ALEKSANDR MEANS ([id number]) [facility] ([facility]) [address] [place] [address] Bilirubin [Mass/Vol] 0.3 mg/dL Normal 0.0-1.2 [facility] Comment on above: Performed By: #### 2 4323-8 #### ALEKSANDR MEANS ([id number]) [facility] ([facility]) [address] [place] [address] Calcium [Mass/Vol] 9.7 mg/dL Normal 8.6-10.3 [facility] Comment on above: Performed By: #### 2 4323-8 #### ALEKSANDR MEANS ([id number]) [facility] ([facility]) [address] [place] [address] Chloride [Moles/Vol] 105 mmol/L Normal 98-107 [facility] Comment on above: Performed By: #### 2 4323-8 #### ALEKSANDR MEANS ([id number]) [facility] ([facility]) [address] [place] [address]75 CO2 [Moles/Vol] 26 mmol/L Normal 21-32 [facility] Comment on above: Performed By: #### 2 4323-8 #### ALEKSANDR MEANS ([id number]) [facility] ([facility]) [address] [place] [address] Creatinine [Mass/Vol] 0.81 mg/dL Normal 0.50-1.05 [facility] Comment on above: Performed By: #### 2 4323-8 #### ALEKSANDR MEANS ([id number]) [facility] ([facility]) [address] [place] [address]397 Glomerular filtration rate/1.73 sq M.predicted 82 mL/min/1.73m*2 Normal >60 [facility] Comment on above: Result Comment: Calc ulations of estimated GFR are performed using the 2020 CKD-EPI Study Refit equation without the race variable for the IDMS-Traceable creatinine methods. https://jasn.asnjournals.org/content/early//ASN.6001804 988 Performed By: #### 2 4323-8 #### ALEKSANDR MEANS ([id number]) [facility] ([facility]) [address] [place] [address] Glucose [Mass/Vol] 157 mg/dL High 74-99 [facility] Comment on above: Performed By: #### 2 4323-8 #### ALEKSANDR MEANS ([id number]) [facility] ([facility]) [address] [place] [address] 25636 Potassium [Moles/Vol] 4.7 mmol/L Normal 3.5-5.3 [facility] Comment on above: Performed By: #### 2 4323-8 #### ALEKSANDR MEANS ([id number]) [facility] ([facility]) [address] [place] [address]95[address] Protein [Mass/Vol] 7.1 g/dL Normal 6.4-8.2 [facility] Comment on above: Performed By: #### 2 4323-8 #### ALEKSANDR MEANS ([id number]) [facility] ([facility]) [address] [place] [address] Sodium [Moles/Vol] 143 mmol/L Normal 136-145 [facility] Comment on above: Performed By: #### 2 4323-8 #### ALEKSANDR MEANS ([id number]) [facility] ([facility]) [address] [place] [address] 24152 Urea nitrogen [Mass/Vol] 29 mg/dL High - [facility] Comment on above: Performed By: #### 2 4323-8 #### ALEKSANDR MEANS ([id number]) [facility] ([facility]) [address] [place] [address] 31778 HbA1c (Bld) [Mass fraction]o n 06-28-2024 Average glucose Estimated from glycated hemoglobin (Bld) [Mass/Vol] 171 mg/dL Normal Not Established [facility] Comment on above: Order Comment: Diagn osis of Lghkagyc-VsejnfOuo-Ujlusuro: < or = 5.6%Increased risk for developing diabetes: 5.7-6.4%Diagnostic of diabetes: > or = 6.5% Performed By: #### 2 4331-1 #### ALEKSANDR MEANS ([id number]) [facility] ([facility]) [address] [place] [address] 35522 Hemoglobin A1c/Hemoglobin.to sharla 06-28-2024 HbA1c (Bld) [Mass fraction] 7.6 % High See comment [facility] Comment on above: Order Comment: Diagn osis of Qqxkbapb-VvbnqlPwy-Ffqwzqud: < or = 5.6%Increased risk for developing diabetes: 5.7-6.4%Diagnostic of diabetes: > or = 6.5% Performed By: #### 2 4331-1 #### ALEKSANDR MEANS ([id number]) [facility] ([facility]) [address] [place], [place] [id number] TSH WITH REFLEX TO FREE T4 I F ABNORMALon 06-28-2024 TSH Qn 1.87 m[IU]/L Normal 0.44-3.98 [facility] Comment on above: Order Comment: TSH t esting is performed using different testing methodology at [facility] than at other [facility]. Direct result comparisons should only be made within the same method. Performed By: #### T URIEL #### ALEKSANDR MEANS ([id number]) [facility] ([facility]) [address] [place] [address] Bacteria identifiedon 2024 Bacteria identified Cx Nom (U) Test: Urine Culture Specimen Source: Clean Catch/Voided Specimen Type: Urine Specimen Date: 06/11/2024 153 Result Date: 06/15/2024 135 Result Status: Final result Abnormal: Yes Resulting Lab: [facility] [address] [id number] CULTURE >=100,000 CFU/mL Escherichia coli (Abnormal) SUSCEPTIBILITY Escherichia coli METHOD MICROSCAN --- AMPICILLIN <=8.000 ug/ml Susceptible CEFAZOLIN <=2 ug/ml Susceptible CEFAZOLIN (UNCOMPLICATED UTIS ONLY) <=2 ug/ml Susceptible CIPROFLOXACIN <=0.250 ug/ml Susceptible GENTAMICIN <=2.000 ug/ml Susceptible NITROFURANTOIN <=32 ug/ml Susceptible PIPERACILLIN/TAZOBACTAM <=8.000 ug/ml Susceptible TRIMETHOPRIM/SULFAMETHO XAZOLE <=2/38 ug/ml Susceptible [facility] Comment on above: Performed By: #### 6 30-4 ####BATSHEVA Reyes ([id number])[facility] ([facility])[address] [place] [address] Urinalysis microscopic panel Auto Ql (U)on 06-11-2024 Bacteria Auto (Urine sed) [#/Area] 1+ /HPF Abnormal NONE SEEN [facility] Comment on above: Performed By: #### 5 3315-8 ####ALEKSANDR MEANS ([id number])[facility] ([facility])[address] [place] [address] Epithelial cells.squamous Auto (Urine sed) [#/Area] 1-9 (SPARSE) Normal Reference range not established. [facility] Comment on above: Performed By: #### 5 3315-8 ####ALEKSANDR MEANS ([id number])[facility] ([facility])[address] [place] [address] Mucus Auto (Urine sed) [#/Area] FEW Normal Reference range not [facility] Comment on above: Performed By: #### 5 3315-8 ####ALEKSANDR MEANS ([id number])[facility] ([facility])[address] [place] [address] 41738 RBC Auto (Urine sed) [#/Area] 1-2 Normal NONE, 1-2, 3-5 [facility] Comment on above: Performed By: #### 5 3315-8 ####ALEKSANDR MEANS ([id number])[facility] ([facility])[address] [place] [address] WBC Auto (Urine sed) [#/Area] 1-5 Normal 1-5, NONE [facility] Comment on above: Performed By: #### 5 0365-8 ####ALEKSANDR MEANS ([id number])[facility] ([facility])[address] [place] [address]0977 Comprehensive metabolic 2000 panelon 03-12-2024 Albumin BCP dye [Mass/Vol] 4.3 g/dL Normal 3.4-5.0 [facility] Comment on above: Performed By: #### 2 432-8 #### ALEKSANDR MEANS ([id number]) [facility] ([facility]) [address] [place] [address] ALP [Catalytic activity/Vol] 78 U/L Normal 33-136 [facility] Comment on above: Performed By: #### 2 432-8 #### ALEKSANDR MEANS ([id number]) [facility] ([facility]) [address] [place] [address] ALT With P-5'-P [Catalytic activity/Vol] 17 U/L Normal 7-45 [facility] Comment on above: Result Comment: Haylee ents treated with Sulfasalazine may generate falsely decreased results for ALT. Performed By: #### 2 4322-8 #### ALEKSANDR MEANS ([id number]) [facility] ([facility]) [address] [place] [address] Anion gap [Moles/Vol] 14 mmol/L Normal 10-20 [facility] Comment on above: Performed By: #### 2 4322-8 #### ALEKSANDR MEANS ([id number]) [facility] ([facility]) [address] [place] [address] AST With P-5'-P [Catalytic activity/Vol] 18 U/L Normal 9-39 [facility] Comment on above: Performed By: #### 2 432-8 #### ALEKSANDR MEANS ([id number]) [facility] ([facility]) [address] [place] [address] Bilirubin [Mass/Vol] 0.3 mg/dL Normal 0.0-1.2 [facility] Comment on above: Performed By: #### 2 4322-8 #### ALEKSANDR MEANS ([id number]) [facility] ([facility]) [address] [place] [address] Calcium [Mass/Vol] 9.9 mg/dL Normal 8.6-10.3 [facility] Comment on above: Performed By: #### 2 432-8 #### ALEKSANDR MEANS ([id number]) [facility] ([facility]) [address] [place] [address] Chloride [Moles/Vol] 102 mmol/L Normal 98-107 [facility] Comment on above: Performed By: #### 2 4323-8 #### ALEKSANDR MEANS ([id number]) [facility] ([facility]) [facility] [place] [address] CO2 [Moles/Vol] 30 mmol/L Normal 21-32 [facility] Comment on above: Performed By: #### 2 4323-8 #### ALEKSANDR MEANS ([id number]) [facility] ([facility]) [address] [place] [address] Creatinine [Mass/Vol] 0.94 mg/dL Normal 0.50-1.05 [facility] Comment on above: Performed By: #### 2 4323-8 #### ALEKSANDR MEANS ([id number]) [facility] ([facility]) [address] [place] [address] Glomerular filtration rate/1.73 sq M.predicted 68 mL/min/1.73m*2 Normal >60 [facility] Comment on above: Result Comment: Calc ulations of estimated GFR are performed using the 2020 CKD-EPI Study Refit equation without the race variable for the IDMS-Traceable creatinine methods. https://jasn.asnjournals.org/content/early//ASN.7837283 988 Performed By: #### 2 4323-8 #### ALEKSANDR MEANS ([id number]) [facility] ([facility]) [address] [place] [address] Glucose [Mass/Vol] 181 mg/dL High 74-99 [facility] Comment on above: Performed By: #### 2 4323-8 #### ALEKSANDR MEANS ([id number]) [facility] ([facility]) [address] [place] [address] Potassium [Moles/Vol] 4.6 mmol/L Normal 3.5-5.3 [facility] Comment on above: Performed By: #### 2 4323-8 #### ALEKSANDR MEANS ([id number]) [facility] ([facility]) [address] [place] [address] Protein [Mass/Vol] 7.3 g/dL Normal 6.4-8.2 [facility] Comment on above: Performed By: #### 2 4323-8 #### ALEKSANDR MEANS ([id number]) [facility] ([facility]) [address] [place] [address] Sodium [Moles/Vol] 141 mmol/L Normal 136-145 [facility] Comment on above: Performed By: #### 2 4323-8 #### ALEKSANDR MEANS ([id number]) [facility] ([facility]) [address] [place] [address] Urea nitrogen [Mass/Vol] 29 mg/dL High 6-23 [facility] Comment on above: Performed By: #### 2 4323-8 #### ALEKSANDR MEANS ([id number]) [facility] ([facility]) [address] [place] [address] HbA1c (Bld) [Mass fraction]o n 03-12-2024 Average glucose Estimated from glycated hemoglobin (Bld) [Mass/Vol] 177 mg/dL Normal Not Established [facility] Comment on above: Order Comment: Diagn osis of Diabetes-Adults Non-Diabetic: < or = 5.6% Increased risk for developing diabetes: 5.7-6.4% Diagnostic of diabetes: > or = 6.5% Performed By: #### 4 548-4 #### BATSHEVA Reyes ([id number]) [facility] ([facility]) [address] [place] [address] Hemoglobin A1c/Hemoglobin.to sharla 03-12-2024 HbA1c (Bld) [Mass fraction] 7.8 % High See comment [facility] Comment on above: Order Comment: Diagn osis of Diabetes-Adults Non-Diabetic: < or = 5.6% Increased risk for developing diabetes: 5.7-6.4% Diagnostic of diabetes: > or = 6.5% Performed By: #### 4 548-4 #### BATSHEVA Reyes ([id number]) [facility] ([facility]) [address] [place] [address] TSH WITH REFLEX TO FREE T4 I F ABNORMALon 03-12-2024 TSH Qn 3.58 m[IU]/L Normal 0.44-3.98 [facility] Comment on above: Order Comment: TSH t esting is performed using different testing methodology at [facility] than at other [facility]. Direct result comparisons should only be made within the same method. Performed By: #### T SUZANNES #### BRANDON CLARY ([id number]) [facility] ([facility]) [address] [place] [address] XR WRIST LEFT 2 VIEWSon 01-08 XR [...] on FriFeb 03, 2024 2:11:30 PM EDT [facility] Comment on above: Order Comment: Injur y/Trauma or Illness?:Injury/TraumaHow long have you had these symptoms (acute/chronic)?:AcuteReason for exam?:Left wrist painHistory of cancer?:uSurgeries, chemotherapy, or radiation?:uType of Exam?:InitialMechanism of injury?:Fall ECG 12 LeadOrdered By: Roseanne Shell on 01-30-2024 Atrial Rate [address] [facility] Work Phone: P Guild [address] [facility] Work Phone: P Offset [address] [facility] Work Phone: P Onset 127 [facility] Work Phone: VT Interval [address] [facility] Work Phone: Q Onset [address] [facility] Work Phone: QRS Count [address] [facility] Work Phone: QRS Duration [address] [facility] Work Phone: QT Interval [address] [facility] Work Phone: QTC Calculation(Bazett) [address] [facility] Work Phone: QTC Fredericia [address] [facility] Work Phone: R Guild [address] [facility] Work Phone: T Guild [address] [facility] Work Phone: T Offset [address] [facility] Work Phone: Ventricular Rate 89 BPM [facility] Work Phone: [facility] Work Phone: ECG 12 Leadon 01-30-2024 Normal sinus rhythm Normal ECG No previous ECGs available See ED provider note for full interpretation and clinical correlation Confirmed by Roseanne Shell ([id number]) on 01/30/2024 9:08:44 PM MUSE Roseanne Shell PA-C - 01/30/2024 Normal sinus rhythm Normal ECG No previous ECGs available See ED provider note for full interpretation and clinical correlation Confirmed by Roseanne Shell ([id number]) on 01/30/2024 9:08:[address] [facility] Work Phone: ECG 12-LEADon 01-29-2024 ECG 12-LEAD Ventricular Rate 89 Atrial Rate 89 P-R Interval 174 QRS Duration 82 Q-T Interval 388 QTC Calculation(Bazett) 472 P Guild 42 R Guild 26 T Guild 67 QRS Count 14 Q Onset 214 P Onset 127 P Offset 170 T Offset 408 QTC Fredericia 442 Diagnosis Normal sinus rhythm Normal ECG No previous ECGs available See ED provider note for full interpretation and clinical correlation Confirmed by Roseanne Shell ([id number]) on 01/30/2024 9:08:44 PM Normal [facility] No Panel Informationon 01-28 Radiology Study observation (narrative) [facility] Work Phone: XR FOREARM RIGHT 2 VIEWSon 0 01-29-2024 XR FOREARM RIGHT 2 VIEWS Interpreted By: Pito Kaur, STUDY: XR FOREARM RIGHT 2 VIEWS; ; 01/29/2024 7:57 am INDICATION: Signs/Symptoms:FALL TRAUMA. COMPARISON: November 2023 ACCESSION NUMBER(S): [id number] ORDERING CLINICIAN: DARIN TRUJILLO FINDINGS: No fractures [...] Pito Kaur 01/29/2024 8:33 AM Dictation workstation: [id number] [facility] XR KNEE RIGHT 1-2 VIEWSon XR KNEE RIGHT 1-2 VIEWS Interpreted By: Pito Kaur, STUDY: XR KNEE RIGHT 1-2 VIEWS; ; 01/29/2024 7:57 am INDICATION: Signs/Symptoms:FALL/TRA LAST. COMPARISON: None. ACCESSION NUMBER(S): [id number] ORDERING CLINICIAN: DARIN TRUJILLO FINDINGS: No fractures or destructive lesions are identified. The joint spaces and articular surfaces are maintained. The alignment is anatomic. The soft tissues are unremarkable. IMPRESSION: Normal right knee radiographs. Signed by: Pito Kaur 01/29/2024 8:37 AM Dictation workstation: [id number] [facility] XR Knee - right 1 or 2 Views on 01-29-2024 Normal right knee radiographs. Signed by: Pito Kaur 01/29/2024 8:37 AM Dictation workstation: [id number] MMODAL Interpreted By: Pito Kaur, STUDY: XR KNEE RIGHT 1-2 VIEWS; ; 01/29/2024 7:57 am INDICATION: Signs/Symptoms:FALL/TRA LAST. COMPARISON: None. ACCESSION NUMBER(S): [id number] ORDERING CLINICIAN: DARIN TRUJILLO FINDINGS: No fractures or destructive lesions are identified. The joint spaces and articular surfaces are maintained. The alignment is anatomic. The soft tissues are unremarkable. MMODAL Pito Kaur MD - 01/29/2024 Interpreted By: Pito Kaur, STUDY: XR KNEE RIGHT 1-2 VIEWS; ; 01/29/2024 7:57 am INDICATION: Signs/Symptoms:FALL/TRA LAST. COMPARISON: None. ACCESSION NUMBER(S): [id number] ORDERING CLINICIAN: DARIN TRUJILLO FINDINGS: No fractures or destructive lesions are identified. The joint spaces and articular surfaces are maintained. The alignment is anatomic. The soft tissues are unremarkable. IMPRESSION: Normal right knee radiographs. Signed by: Pito Kaur 01/29/2024 8:37 AM Dictation workstation: [id number] [facility] Work Phone: XR Knee - right 1 or 2 Views Ordered By: Pito Kaur on 01-29-2024 [facility] Work Phone: XR Radius and Ulna - right 2 Viewson 01-29-2024 No acute fracture. Persistent dorsal subluxation of the distal ulna in relation to the distal radius; correlate clinically. Signed by: Pito Kaur 01/29/2024 8:33 AM Dictation workstation: [id number] MMODAL Interpreted By: Pito Kaur, STUDY: XR FOREARM RIGHT 2 VIEWS; ; 01/29/2024 7:57 am INDICATION: Signs/Symptoms:FALL TRAUMA. COMPARISON: November 2023 ACCESSION NUMBER(S): [id number] ORDERING CLINICIAN: DARIN TRUJILLO FINDINGS: No fractures [...] Signs/Symptoms:FALL TRAUMA. COMPARISON: November 2023 ACCESSION NUMBER(S): [id number] ORDERING CLINICIAN: DARIN TRUJILLO FINDINGS: No fractures [...] Pito Kaur 01/29/2024 8:33 AM Dictation workstation: [id number] [facility] Work Phone: [facility] Work Phone: CT HEAD OR BRAIN [...] PROVIDED DIAGNOSIS CODES: I60.9 SAH (subarachnoid hemorrhage) ([facility]) COMPARISON: CT brain: 12/05/2023 FINDINGS: Intracranial Bleed: No evidence for acute intracranial bleed. Intracranial Mass: No evidence for mass lesion. No mass effect or midline shift. Extra-axial spaces: The ventricles are diffusely dilated due to mild generalized atrophy. White/Laguna Matter: No acute cortical infarct. There is atej-cr-oiqznhru chronic low attenuation in the white matter [...] lesion. 3. There is mild atrophy and vekj-na-gbqzzavu chronic small vessel white matter ischemic disease. 4. Mild right pre frontal and supraorbital soft tissue swelling is improved. Workstation ID: [id number] Dictated by: JEFF MILLER on FriJan 07, 2024 12:05:25 PM EDT Transcribed by: JEFF MILLER on FriJan 07, 2024 12:05:25 PM EDT Finalized by: JEFF MILLER on FriJan 07, 2024 12:05:25 PM EDT [facility] Comment on above: Order Comment: Compl [...] Dec 25, 2023 3:39:07 PM EDT Normal [facility] Comment on above: Order Comment: Injur y/Trauma or Illness?:Illness/Other How long have you had these symptoms (acute/chronic)?:Acute Reason for exam?:pain History of cancer?:u Surgeries, chemotherapy, or radiation?:u Type of Exam?:Subsequent/Follow-up Additional signs and symptoms?:. BASIC METABOLIC PANELon - Anion gap [Moles/Vol] 15 mmol/L Normal 10-20 [facility] Comment on above: Order Comment: [facility] has implemented the eGFR calculation approach that does not have a coefficient for race that conforms to the NKF-ASN Task Force Recommendations. Performed By: #### 4 6932 #### LAB [address] [place] [address] David Mcclain M.D. [id number] Calcium [Mass/Vol] 9.0 mg/dL Normal 8.4-10.2 [facility] Comment on above: Order Comment: [facility] has implemented the eGFR calculation approach that does not have a coefficient for race that conforms to the NKF-ASN Task Force Recommendations. Performed By: #### 4 6932 #### [facility] [address] [place] [address] David Mcclain M.D. [id number] Chloride [Moles/Vol] 105 mmol/L Normal 98-108 [facility] Comment on above: Order Comment: [facility] has implemented the eGFR calculation approach that does not have a coefficient for race that conforms to the NKF-ASN Task Force Recommendations. Performed By: #### 4 6932 #### [address] [place] [address] David Mcclain M.D. [id number] Creatinine [Mass/Vol] 0.85 mg/dL Normal 0.60-1.10 [facility] Comment on above: Order Comment: [facility] has implemented the eGFR calculation approach that does not have a coefficient for race that conforms to the NKF-ASN Task Force Recommendations. Performed By: #### 4 6932 #### [address] [place] [address] Daivd Mcclain M.D. [id number] EGFR 77 mL/min/1.73 m2 Normal >=60 [facility] Comment on above: Order Comment: [facility] has implemented the eGFR calculation approach that does not have a coefficient for race that conforms to the NKF-ASN Task Force Recommendations. Result Comment: Velasquez mated GFR was calculated using the 2020 CKD-EPI creatinine equation. Performed By: #### 4 6932 #### [address] [place] [address] David Mcclain M.D. [id number] Glucose [Mass/Vol] 168 mg/dL High 65-99 [facility] Comment on above: Order Comment: [facility] has implemented the eGFR calculation approach that does not have a coefficient for race that conforms to the NKF-ASN Task Force Recommendations. Performed By: #### 4 6932 #### [address] [place] [address] David Mcclain M.D. [id number] HCO3 (Bld) [Moles/Vol] 25 mmol/L Normal 21-32 [facility] Comment on above: Order Comment: [facility] has implemented the eGFR calculation approach that does not have a coefficient for race that conforms to the NKF-ASN Task Force Recommendations. Performed By: #### 4 6932 #### [address] [place] [address] David Mcclain M.D. [id number] Potassium [Moles/Vol] 4.2 mmol/L Normal 3.5-5.1 [facility] Comment on above: Order Comment: [facility] has implemented the eGFR calculation approach that does not have a coefficient for race that conforms to the NKF-ASN Task Force Recommendations. Performed By: #### 4 6932 #### [address] [place] [address] David Mcclain M.D. [id number] Sodium [Moles/Vol] 141 mmol/L Normal 135-145 [facility] Comment on above: Order Comment: [facility] has implemented the eGFR calculation approach that does not have a coefficient for race that conforms to the NKF-ASN Task Force Recommendations. Performed By: #### 4 6932 #### LAB [address] [place] [id number] David Mcclain M.D. [id number] Urea nitrogen [Mass/Vol] 22 mg/dL Normal 8-25 [facility] Comment on above: Order Comment: [facility] has implemented the eGFR calculation approach that does not have a coefficient for race that conforms to the NKF-ASN Task Force Recommendations. Performed By: #### 4 6932 #### [address] [place] [address] David Mcclain M.D. [id number] Urea nitrogen/Creatinine [Mass ratio] 25.9 mg/mg High 10.0-20.0 [facility] Comment on above: Order Comment: [facility] has implemented the eGFR calculation approach that does not have a coefficient for race that conforms to the NKF-ASN Task Force Recommendations. Performed By: #### 4 6932 #### [address] [place] [address] David Mcclain M.D. [id number] CBCon 12-05-2023 AUTO NRBC 0.0 % Normal [facility] Comment on above: Performed By: #### 4 6932 #### LAB [address] [place] [id number] David Mcclain M.D. [id number] AUTO NRBC ABS COUNT 0.00 K/mcL Normal 0.00-0.00 [facility] Comment on above: Performed By: #### 4 6955 #### LAB [address] [place] [address] David Mcclain M.D. [id number] Erythrocyte distribution width (RBC) [Ratio] 14.8 % Normal 11.6-14.8 [facility] Comment on above: Performed By: #### 4 6957 #### LAB [address] [place] [address] David Mcclain M.D. [id number] Hematocrit (Bld) [Volume fraction] 34.8 % Low 36.0-46.0 [facility] Comment on above: Performed By: #### 4 6994 #### LAB [address] [place] [address] David Mcclain M.D. [id number] Hemoglobin (Bld) [Mass/Vol] 10.7 g/dL Low 12.0-16.0 [facility] Comment on above: Performed By: #### 4 6966 #### [facility] [address] [place] [address] David Mcclain M.D. [id number] MCH (RBC) [Entitic mass] 27.0 pg Normal 26.0-34.0 [facility] Comment on above: Performed By: #### 4 9447 #### LAB [address] [place] [address] David Mcclain M.D. [id number] MCV (RBC) [Entitic vol] 87.9 fL Normal 80.0-100.0 [facility] Comment on above: Performed By: #### 4 8088 #### LAB [address] [place] [address] David Mcclain M.D. [id number] MEAN CORPUSCULAR HEMOGLOBIN CONC 30.7 g/dL Low 31.0-37.0 [facility] Comment on above: Performed By: #### 4 5684 #### LAB [address] [place] [address] David Mcclain M.D. [id number] Platelet mean volume (Bld) [Entitic vol] 9.3 fL Low 9.4-12.4 [facility] Comment on above: Performed By: #### 4 5237 #### LAB [address] [place] [address] David Mcclain M.D. [id number] Platelets (Bld) [#/Vol] 312 10*3/uL Normal 150-400 [facility] Comment on above: Performed By: #### 4 1322 #### [facility] [address] [place], [place] [address] David Mcclain M.D. [id number] RBC (Bld) [#/Vol] 3.96 10*6/uL Low 4.00-5.20 [facility] Comment on above: Performed By: #### 4 6932 #### [facility] LAB [address] [place], [place] [address] David Mcclain M.D. [id number] WBC (Bld) [#/Vol] 7.23 10*3/uL Normal 4.50-11.00 [facility] Comment on above: Performed By: #### 4 6932 #### LAB [address] [place], [place] [address] David Mcclain M.D. [id number] CONSULTon 12-05-2023 CONSULT Orthopedic consult Chief complaint [...] BY SACHIN MORALES, ON 12/05/2023 10:14:32 Normal [facility] CT HEAD OR BRAIN WITHOUT CON TRASTon 12-05-2023 CT HEAD OR BRAIN WITHOUT CONTRAST EXAMINATION: CT HEAD OR BRAIN WITHOUT CONTRAST12/05/2023 7:16 am TECHNIQUE: Routine protocol multiplanar reformatted axial CT acquisition At least one of the following dose reduction techniques was utilized: Iterative reconstruction, and/or Automatic Exposure Control, and/or mA/kV adjustment based on body size. INDICATION: SAH [phone] Renu Santos, Director for residential provider *[phone] Stephanie Mata, aquatics coordinator at the home Injury/Trauma or Illness?:Illness/Other How long have you had these symptoms (acute/chronic)?:Acute Reason for exam?:sah f/u I62.9 Intracranial bleed (HCC) COMPARISON: 12/04/[address] FINDINGS: Stable focal anterior right temporal lobe subarachnoid/cortical hyperdensity. Moderate generalized cerebral cortical volume loss, and discordance crowding the subarachnoid spaces at the vertex relative to moderate 3rd and lateral ventricular enlargement by. Vsgq-xw-uecfqogi frontoparietal predominant burn a confluent periventricular and [...] FriDec 05, 2023 12:13:06 PM EDT Normal [facility] Comment on above: Order Comment: Injur y/Trauma or Illness?:Illness/OtherHow long have you had these symptoms (acute/chronic)?:AcuteReason for exam?:sah f/uType of Exam?:Subsequent/Follow-upAdditional signs and symptoms?:n/a POC GLUCOSE - [facility] 024 Glucose [Mass/Vol] 167 mg/dL High 65-99 [facility] Glucose [Mass/Vol] 156 mg/dL High 65-99 [facility] Glucose [Mass/Vol] 160 mg/dL High 65-99 [facility] ALCOHOL, MEDICALon 4 ALCOHOL MEDICAL < Normal <10.0 [facility] Comment on above: Result Comment: Alco hol cutoff: <10.00 mg/dL = None Detected Performed By: #### 4 5033 #### LAB [address] [place] [address] David Mcclain M.D. [id number] Basic metabolic 2000 panelon 12-04-2023 Anion gap [Moles/Vol] 11 mmol/L 10 - 20 mmol/L [facility] Calcium [Mass/Vol] 9.7 mg/dL 8.6 - 10. 3 mg/dL [facility] Chloride [Moles/Vol] 103 mmol/L 98 - 10 7 mmol/L [facility] CO2 [Moles/Vol] 30 mmol/L 21 - 32 mmol/L [facility] Creatinine [Mass/Vol] 0.85 mg/dL 0.50 - 1.05 mg/dL [facility] GFR/1.73 sq M.predicted among non-blacks MDRD (S/P/Bld) [Vol rate/Area] 77 mL/min/{1.73_m2} - PINF [facility] Comment on above: Calculations of velasquez mated GFR are performed using the 2020 CKD-EPI Study Refit equation without the race variable for the IDMS-Traceable creatinine methods. https://jasn.asnjournals.org/content/early/ASN.7829586 988 Glucose [Mass/Vol] 145 mg/dL High 74 - 99 mg/dL [facility] Interpretation and review of laboratory results Abnormal [facility] Potassium [Moles/Vol] 4.2 mmol/L 3.5 - 5.3 mmol/L [facility] Sodium [Moles/Vol] 140 mmol/L 136 - 145 mmol/L [facility] Urea nitrogen [Mass/Vol] 29 mg/dL High 6 - 23 mg/dL [facility] Anion gap [Moles/Vol] 11 mmol/L Normal 10-20 [facility] Comment on above: Performed By: #### 2 4321-2 ####ALEKSANDR MEANS ([id number])[facility] ([facility])[address] [place] [address] Calcium [Mass/Vol] 9.7 mg/dL Normal 8.6-10.3 [facility] Comment on above: Performed By: #### 2 4321-2 ####ALEKSANDR MEANS ([id number])[facility] ([facility])[address] [place] [address] Chloride [Moles/Vol] 103 mmol/L Normal 98-107 [facility] Comment on above: Performed By: #### 2 4321-2 ####ALEKSANDR MEANS ([id number])[facility] ([facility])[address] [place] [address] CO2 [Moles/Vol] 30 mmol/L Normal 21-32 [facility] Comment on above: Performed By: #### 2 4321-2 ####ALEKSANDR MEANS ([id number])[facility] ([facility])[address] [place] [address] Creatinine [Mass/Vol] 0.85 mg/dL Normal 0.50-1.05 [facility] Comment on above: Performed By: #### 2 4320-2 ####ALEKSANDR MEANS ([id number])[facility] ([facility])[address] [place] [address] 94448 Glomerular filtration rate/1.73 sq M.predicted 77 mL/min/1.73m*2 Normal >60 [facility] Comment on above: Result Comment: Calc ulations of estimated GFR are performed using the 2020 CKD-EPI Study Refit equation without the race variable for the IDMS-Traceable creatinine methods. https://jasn.asnjournals.org/content/early/ASN.8053716 988 Performed By: #### 2 4320-2 ####ALEKSANDR MEANS ([id number])[facility] ([facility])[address] [place] [address] 20935 Glucose [Mass/Vol] 145 mg/dL High 74-99 [facility] Comment on above: Performed By: #### 2 4320-2 ####ALEKSANDR MEANS ([id number])[facility] ([facility])[address] [place] [address] 32641 Potassium [Moles/Vol] 4.2 mmol/L Normal 3.5-5.3 [facility] Comment on above: Performed By: #### 2 4320-2 ####ALEKSANDR MEANS ([id number])[facility] ([facility])[address] [place] [address] Sodium [Moles/Vol] 140 mmol/L Normal 136-145 [facility] Comment on above: Performed By: #### 2 4321-2 ####ALEKSANDR MEANS ([id number])[facility] ([facility] [place] [address] Urea nitrogen [Mass/Vol] 29 mg/dL High 6-23 [facility] Comment on above: Performed By: #### 2 4321-2 ####BRANDON CLARY ([id number])[facility] ([facility])[address] [place] [address] 30599 CBC W Auto Differential pane l (Bld)on 12-04-2023 Basophils (Bld) [#/Vol] 0.03 10*3/uL [facility] Basophils/100 WBC (Bld) 0.3 % 0.0 - 2.0 % [facility] Eosinophils (Bld) [#/Vol] 0.26 10*3/uL [facility] Eosinophils/100 WBC (Bld) 2.5 % 0.0 - 6.0 % [facility] Erythrocyte distribution width (RBC) [Ratio] 14.6 % High 11.5 - 14.5 % [facility] Hematocrit (Bld) [Volume fraction] 40.2 % 36.0 - 46.0 % [facility] Hemoglobin (Bld) [Mass/Vol] 12.0 g/dL 12.0 - 16.0 g/dL [facility] Immature granulocytes (Bld) [#/Vol] 0.06 10*3/uL [facility] Immature granulocytes/100 WBC (Bld) 0.6 % 0.0 - 0.9 % [facility] Comment on above: Immature Granulocyte Count (IG) includes promyelocytes, myelocytes and metamyelocytes but does not include bands. Percent differential counts (%) should be interpreted in the context of the absolute cell counts (cells/UL). Interpretation and review of laboratory results Abnormal [facility] Lymphocytes (Bld) [#/Vol] 0.95 10*3/uL Low [facility] Lymphocytes/100 WBC (Bld) 9.2 % 13.0 - 44.0 % [facility] MCH (RBC) [Entitic mass] 27.3 pg 26.0 - 34.[address] [facility] MCHC (RBC) [Mass/Vol] 29.9 g/dL Low 32.0 - 36.0 g/dL [facility] MCV (RBC) [Entitic vol] 91 fL 80 - [address] [facility] Monocytes (Bld) [#/Vol] 0.53 10*3/uL [facility] Monocytes/100 WBC (Bld) 5.1 % 2.0 - 10.0 % [facility] Neutrophils (Bld) [#/Vol] 8.51 10*3/uL High [facility] Comment on above: Percent differential counts (%) should be interpreted in the context of the absolute cell counts (cells/uL). Neutrophils/100 WBC (Bld) 82.3 % 40.0 - 80.0 % [facility] Nucleated RBC/100 WBC (Bld) [Ratio] 0.0 % [facility] Platelets (Bld) [#/Vol] 355 10*3/uL [facility] RBC (Bld) [#/Vol] 4.40 10*6/uL [facility] WBC (Bld) [#/Vol] 10.3 10*3/uL [facility] Basophils (Bld) [#/Vol] 0.03 x10*3/uL Normal 0.00-0.10 [facility] Comment on above: Performed By: #### 5 7021-8 #### ALEKSANDR MEANS ([id number]) [facility] ([facility]) [address] [place] [address] 47935 Basophils/100 WBC (Bld) 0.3 % Normal 0.0-2.0 [facility] Comment on above: Performed By: #### 5 7021-8 #### ALEKSANDR MEANS ([id number]) [facility] ([facility]) [address] [place] [address] 82724 Eosinophils (Bld) [#/Vol] 0.26 x10*3/uL Normal 0.00-0.70 [facility] Comment on above: Performed By: #### 5 7021-8 #### ALEKSANDR MEANS ([id number]) [facility] ([facility]) [address] [place] [address] 77579 Eosinophils/100 WBC (Bld) 2.5 % Normal 0.0-6.0 [facility] Comment on above: Performed By: #### 5 7021-8 #### ALEKSANDR MEANS ([id number]) [facility] ([facility]) [address] [place] [address] 34113 Erythrocyte distribution width (RBC) [Ratio] 14.6 % High 11.5-14.5 [facility] Comment on above: Performed By: #### 5 7021-8 #### ALEKSANDR MEANS ([id number]) [facility] ([facility]) [address] [place] [address] 15041 Hematocrit (Bld) [Volume fraction] 40.2 % Normal 36.0-46.0 [facility] Comment on above: Performed By: #### 5 7021-8 #### ALEKSANDR MEANS ([id number]) [facility] ([facility]) [address] [place] [address] 91054 Hemoglobin (Bld) [Mass/Vol] 12.0 g/dL Normal 12.0-16.0 [facility] Comment on above: Performed By: #### 5 7021-8 #### ALEKSANDR MEANS ([id number]) [facility] ([facility]) [address] [place] [address] 06447 Immature granulocytes (Bld) [#/Vol] 0.06 x10*3/uL Normal 0.00-0.70 [facility] Comment on above: Performed By: #### 5 7021-8 #### ALEKSANDR MEANS ([id number]) [facility] ([facility]) [address] [place] [address] 94315 Immature granulocytes/100 WBC (Bld) 0.6 % Normal 0.0-0.9 [facility] Comment on above: Result Comment: Reina ture Granulocyte Count (IG) includes promyelocytes, myelocytes and metamyelocytes but does not include bands. Percent differential counts (%) should be interpreted in the context of the absolute cell counts (cells/UL). Performed By: #### 5 7021-8 #### ALEKSANDR MEANS (85984) [facility] ([facility]) [address] [place] [address] Lymphocytes (Bld) [#/Vol] 0.95 x10*3/uL Low 1.20-4.80 [facility] Comment on above: Performed By: #### 5 7021-8 #### ALEKSANDR MEANS ([id number]) [facility] ([facility]) [address] [place], [place] [address] Lymphocytes/100 WBC (Bld) 9.2 % Normal 13.0-44.0 [facility] Comment on above: Performed By: #### 5 7021-8 #### ALEKSANDR MEANS ([id number]) [facility] ([facility]) [address] [place], [place] [address] MCH (RBC) [Entitic mass] 27.3 pg Normal 26.0-34.0 [facility] Comment on above: Performed By: #### 5 7021-8 #### ALEKSANDR MEANS ([id number]) [facility] ([facility]) [address] [place] [address] 17639 MCHC (RBC) [Mass/Vol] 29.9 g/dL Low 32.0-36.0 [facility] Comment on above: Performed By: #### 5 7021-8 #### ALEKSANDR MEANS ([id number]) [facility] ([facility]) [address] [place] [address] 88891 MCV (RBC) [Entitic vol] 91 fL Normal 80-100 [facility] Comment on above: Performed By: #### 5 7021-8 #### ALEKSANDR MEANS ([id number]) [facility] ([facility]) [address] [place] [address] 85424 Monocytes (Bld) [#/Vol] 0.53 x10*3/uL Normal 0.10-1.00 [facility] Comment on above: Performed By: #### 5 7021-8 #### ALEKSANDR MEANS ([id number]) [facility] ([facility]) [address] [place] [address] 56506 Monocytes/100 WBC (Bld) 5.1 % Normal 2.0-10.0 [facility] Comment on above: Performed By: #### 5 7021-8 #### ALEKSANDR MEANS ([id number]) [facility] ([facility]) [address] [place] [address] 99717 Neutrophils (Bld) [#/Vol] 8.51 x10*3/uL High 1.20-7.70 [facility] Comment on above: Result Comment: Perc ent differential counts (%) should be interpreted in the context of the absolute cell counts (cells/uL). Performed By: #### 5 7021-8 #### ALEKSANDR MEANS ([id number]) [facility] ([facility]) [address] [place] [address] 57928 Neutrophils/100 WBC (Bld) 82.3 % Normal 40.0-80.0 [facility] Comment on above: Performed By: #### 5 7021-8 #### ALEKSANDR MEANS ([id number]) [facility] ([facility]) [address] [place] [address] 76758 Nucleated RBC/100 WBC (Bld) [Ratio] 0.0 /100 WBCs Normal 0.0-0.0 [facility] Comment on above: Performed By: #### 5 7021-8 #### ALEKSANDR MEANS ([id number]) [facility] ([facility]) [address] [place] [address] 99725 Platelets (Bld) [#/Vol] 355 x10*3/uL Normal 150-450 [facility] Comment on above: Performed By: #### 5 7021-8 #### ALEKSANDR MEANS ([id number]) [facility] ([facility]) [address] [place] [address] 03358 RBC (Bld) [#/Vol] 4.40 x10*6/uL Normal 4.00-5.20 [facility] Comment on above: Performed By: #### 5 7021-8 #### BRANDON CLARY ([id number]) [facility] ([facility]) [address] [place] [address] WBC (Bld) [#/Vol] 10.3 x10*3/uL Normal 4.4-11.3 [facility] Comment on above: Performed By: #### 5 7021-8 #### ALEKSANDR MEANS ([id number]) [facility] ([facility]) [address] [place] [address] CONSULTon 12-04-2023 CONSULT Neurosurgery Consult Vel Benavidez MD Patient: Shaji Esquivel Date of : 1960 (63 y.o.) Referring Provider: Trauma service PCP: Antwan Maharaj MD SUBJECTIVE: Chief Complaint: Status post fall with small right anterior temporal subarachnoid hemorrhage/contusion History of Present Illness (HPI): Patient is a 63-year-old lady with history of schizophrenia, Parkinson's disease, significant intellectual impairment who lives at a retirement under the guardianship of the [facility]. History was obtained from her caregiver Padminiamy [...] as well as place which is her retirement. She is able to ambulate on her [...] surgeries. Social History: She lives in a retirement for the last several years. No history [...] BY VEL BENAVIDEZ, ON 12/04/2023 17:21:56 Normal [facility] CT 3D RECONSTRUCTIONon 12-03 CT 3D RECONSTRUCTION Interpreted By: Shayna Robert, STUDY: CT FACIAL BONES WO IV CONTRAST; CT 3D RECONSTRUCTION 12/04/2023 9:56 am; 12/04/2023 10:08 am INDICATION: Signs/Symptoms:Fall with injury to her face; Signs/Symptoms:trauma COMPARISON: 10/07/2022 ACCESSION NUMBER(S): [id number]; [id number] ORDERING CLINICIAN: JASMYN WADE TECHNIQUE: Thin cut [...] Shayna Cole 12/04/2023 10:40 AM Dictation workstation: [id number] [facility] CT CERVICAL SPINE WO IV CONT [facility] 12-04-2023 CT CERVICAL SPINE WO IV CONTRAST Interpreted By: Shayna Cole, STUDY: CT CERVICAL SPINE WO IV CONTRAST; 12/04/2023 9:56 am INDICATION: Signs/Symptoms:Fall with injury to neck. COMPARISON: 07/19/2023 ACCESSION NUMBER(S): [id number] ORDERING CLINICIAN: JASMYN WADE TECHNIQUE: CT images [...] Shayna Cole 12/04/2023 10:36 AM Dictation workstation: [id number] [facility] CT CHEST ABDOMEN PELVIS WITH OUT CONTRAST [...] FriDec 04, 2023 2:15:21 PM EDT Normal [facility] Comment on above: Order Comment: Injur [...] Shayna Cole 12/04/2023 10:36 AM Dictation workstation: [id number] MMODAL Interpreted By: Shayna Mantilla, STUDY: CT CERVICAL SPINE WO IV CONTRAST; 12/04/2023 9:56 am INDICATION: Signs/Symptoms:Fall with injury to neck. COMPARISON: 07/19/2023 ACCESSION NUMBER(S): [id number] ORDERING CLINICIAN: JASMYN WADE TECHNIQUE: CT images [...] injury to neck. COMPARISON: 07/19/2023 ACCESSION NUMBER(S): [id number] ORDERING CLINICIAN: JASMYN WADE TECHNIQUE: CT images [...] Shayna Cole 12/04/2023 10:36 AM Dictation workstation: [id number] [facility] Work Phone: [facility] Work Phone: CT FACIAL BONES WO IV CONTRA STon 12-04-2023 CT FACIAL BONES WO IV CONTRAST Interpreted By: Shayna Cole, STUDY: CT FACIAL BONES WO IV CONTRAST; CT 3D RECONSTRUCTION 12/04/2023 9:56 am; 12/04/2023 10:08 am INDICATION: Signs/Symptoms:Fall with injury to her face; Signs/Symptoms:trauma COMPARISON: 10/07/2022 ACCESSION NUMBER(S): [id number]; [id number] ORDERING CLINICIAN: JASMYN WADE TECHNIQUE: Thin cut [...] Shayna Cole 12/04/2023 10:40 AM Dictation workstation: [id number] [facility] CT HEAD WO IV CONTRASTon CT HEAD WO IV CONTRAST Interpreted By: Shayna Cole, STUDY: CT HEAD WO IV CONTRAST; 12/04/2023 9:56 am INDICATION: Signs/Symptoms:Fall with head injury. COMPARISON: 07/19/2023 ACCESSION NUMBER(S): [id number] ORDERING CLINICIAN: JASMYN WADE TECHNIQUE: Unenhanced CT [...] Shayna Cole 12/04/2023 10:30 AM Dictation workstation: [id number] [facility] CT Head WO contraston 2023 6 mm [...] Shayna Cole 12/04/2023 10:30 AM Dictation workstation: [id number] MMODAL Interpreted By: Shayna Mantilla, STUDY: CT HEAD WO IV CONTRAST; 12/04/2023 9:56 am INDICATION: Signs/Symptoms:Fall with head injury. COMPARISON: 07/19/2023 ACCESSION NUMBER(S): [id number] ORDERING CLINICIAN: JASMYN WADE TECHNIQUE: Unenhanced CT [...] with head injury. COMPARISON: 07/19/2023 ACCESSION NUMBER(S): [id number] ORDERING CLINICIAN: JASMYN WADE TECHNIQUE: Unenhanced CT [...] Shayna Cole 12/04/2023 10:30 AM Dictation workstation: [id number] [facility] Work Phone: [facility] Work Phone: CT Unspecified body region 3 D post processingon 12-04-2023 Radiology Study observation (narrative) [facility] Work Phone: CT WRIST RIGHT WITHOUT [...] FriDec 04, 2023 8:07:23 PM EDT Normal [facility] Comment on above: Order Comment: Injur y/Trauma or Illness?:Injury/TraumaHow long have you had these symptoms (acute/chronic)?:AcuteReason for exam?:right wrist pain with injury s/p fall. ulnocarpal dislocation noted on wrist x-rayType of Exam?:InitialMechanism of injury?:fall Coagulation surface inducedo n 12-04-2023 aPTT Coag (PPP) [Time] 28 s Normal 27-38 [facility] Comment on above: Order Comment: The A PTT is no longer used for monitoring Unfractionated Heparin Therapy. For monitoring Heparin Therapy, use the Heparin Assay. Performed By: #### 1 4979-9 ####BRANDON CLARY ([id number])[facility] ([facility])[address] [place] [address] Coagulation tissue factor in ducedon 12-04-2023 PT Coag (PPP) [Time] 10.6 s Normal 9.8-12.8 [facility] Comment on above: Performed By: #### 5 902-2 #### ALEKSANDR MEANS ([id number]) [facility] ([facility]) [address] [place] [address] ED Prov Noteon 12-04-2023 ED Prov Note [facility] EMERGENCY DEPARTMENT - Emergency Medicine Attending Note: NAME: Shaji Esquivel 63 y.o. CSN: [id number] PCP: Antwan Maharaj MD History: Chief Complaint: [...] emergency d (more content not included)... Normal [facility] H AND Samuel 12-04-2023 H AND [...] reviewed the PATTY note, labs, studies, and consumer services consultant notes. I have reviewed and agree [...] denies spinal TTP. Imaging [facility] with the above findings. On physical [...] Surgery, Surgical Critical Care, and Neurocritical Care [facility] SURGICAL HISTORY & PHYSICAL/CONSULTATION NOTE [...] Used Sub (more content not included)... Normal [facility] No Panel Informationon 12-03 Interpretation and review of laboratory results Normal [facility] Dorsal dislocation a t the ulnocarpal joint versus projection. No fracture identified. MACRO: None. Signed by: Shayna Cole 12/04/2023 10:45 AM Dictation workstation: [id number] MMODAL Interpreted By: Shayna Mantilla, STUDY: XR FOREARM RIGHT 2 VIEWS; XR WRIST RIGHT 3+ VIEWS; 12/04/2023 9:40 am INDICATION: Signs/Symptoms:Fall with injury. COMPARISON: Forearm films 08/10/2021 ACCESSION NUMBER(S): [id number]; [id number] ORDERING CLINICIAN: JASMYN WADE FINDINGS: 2 portable [...] injury. COMPARISON: Forearm films 08/10/2021 ACCESSION NUMBER(S): [id number]; [id number] ORDERING CLINICIAN: JASMYN WADE FINDINGS: 2 portable [...] Shayna Cole 12/04/2023 10:45 AM Dictation workstation: [id number] [facility] Work Phone: Hematoma in the righ t frontal scalp/supraorbital region. No acute displaced facial bone fracture visualized. Mild right maxillary and bilateral sphenoid sinus mucosal thickening/debris. MACRO: None. Signed by: Shayna Cole 12/04/2023 10:40 AM Dictation workstation: [id number] MMODAL Interpreted By: Shayna Mantilla, STUDY: CT FACIAL BONES WO IV CONTRAST; CT 3D RECONSTRUCTION 12/04/2023 9:56 am; 12/04/2023 10:08 am INDICATION: Signs/Symptoms:Fall with injury to her face; Signs/Symptoms:trauma COMPARISON: 10/07/2022 ACCESSION NUMBER(S): [id number]; [id number] ORDERING CLINICIAN: JASMYN WADE TECHNIQUE: Thin cut [...] her face; Signs/Symptoms:trauma COMPARISON: 10/07/2022 ACCESSION NUMBER(S): [id number]; [id number] ORDERING CLINICIAN: JASMYN WADE TECHNIQUE: Thin cut [...] Shayna Cole 12/04/2023 10:40 AM Dictation workstation: [id number] [facility] Work Phone: [facility] Work Phone: Radiology Study observation (narrative) [facility] Work Phone: Radiology Study observation (narrative) [facility] Work Phone: No Panel InformationOrdered By: Shayna Cole on 12-04-2023 [facility] Work Phone: POC GLUCOSE - [facility] 024 Glucose [Mass/Vol] 135 mg/dL High 65-99 [facility] Glucose [Mass/Vol] 94 mg/dL Normal 65-99 [facility] PT Coag (PPP) [Time]on 12-03 INR Coag (PPP) [Relative time] 0.9 {INR} 0.9 - 1.1 [facility] INR Coag (PPP) [Relative time] 0.9 Normal 0.9-1.1 [facility] Comment on above: Performed By: #### 5 902-2 #### BRANDON CLARY ([id number]) [facility] ([facility]) [address] [place] [address] Protime-INRon 12-04-2023 PT Coag (PPP) [Time] 10.6 s [facility] XR FOREARM RIGHT 2 VIEWSon 0 12-04-2023 XR FOREARM RIGHT 2 VIEWS Interpreted By: Shayna Cole, STUDY: XR FOREARM RIGHT 2 VIEWS; XR WRIST RIGHT 3+ VIEWS; 12/04/2023 9:40 am INDICATION: Signs/Symptoms:Fall with injury. COMPARISON: Forearm films 08/10/2021 ACCESSION NUMBER(S): [id number]; [id number] ORDERING CLINICIAN: JASMYN WADE FINDINGS: 2 portable [...] Shayna Cole 12/04/2023 10:45 AM Dictation workstation: [id number] [facility] XR KNEE RIGHT 2 VIEWS (STAND TALIA)on [...] on FriDec 04, 2023 2:24:52 PM EDT [facility] Comment on above: Order Comment: Injur y/Trauma [...] on FriDec 04, 2023 4:26:36 PM EDT [facility] Comment on above: Order Comment: Injur y/Trauma [...] injury. COMPARISON: Forearm films 08/10/2021 ACCESSION NUMBER(S): [id number]; [id number] ORDERING CLINICIAN: JASMYN WADE FINDINGS: 2 portable [...] Shayna Cole 12/04/2023 10:45 AM Dictation workstation: [id number] [facility] aPTTon 12-04-2023 aPTT Coag (PPP) [Time] [address] [facility] aPTT Coag (PPP) [Time]on The APTT is no longe r used for monitoring Unfractionated Heparin Therapy. For monitoring Heparin Therapy, use the Heparin Assay. [facility] Comprehensive metabolic 2000 panelon 10-15-2023 Albumin BCP dye [Mass/Vol] 4.2 g/dL Normal 3.4-5.0 [facility] Comment on above: Performed By: #### 2 4323-8 #### ALEKSANDR MEANS ([id number]) [facility] ([facility]) [address] [place] [address] ALP [Catalytic activity/Vol] 73 U/L Normal 33-136 [facility] Comment on above: Performed By: #### 2 4323-8 #### ALEKSANDR MEANS ([id number]) [facility] ([facility]) [address] [place] [address] ALT With P-5'-P [Catalytic activity/Vol] 12 U/L Normal 7-45 [facility] Comment on above: Result Comment: Haylee ents treated with Sulfasalazine may generate falsely decreased results for ALT. Performed By: #### 2 4323-8 #### ALEKSANDR MEANS ([id number]) [facility] ([facility]) [address] [place] [address] 30452 Anion gap [Moles/Vol] 11 mmol/L Normal 10-20 [facility] Comment on above: Performed By: #### 2 4323-8 #### ALEKSANDR MEANS ([id number]) [facility] ([facility]) [address] [place] [address] 10837 AST With P-5'-P [Catalytic activity/Vol] 14 U/L Normal 9-39 [facility] Comment on above: Performed By: #### 2 4323-8 #### ALEKSANDR MEANS ([id number]) [facility] ([facility]) [address] [place] [address] Bilirubin [Mass/Vol] 0.4 mg/dL Normal 0.0-1.2 [facility] Comment on above: Performed By: #### 2 4323-8 #### ALEKSANDR MEANS ([id number]) [facility] ([facility]) [address] [place] [address] 24981 Calcium [Mass/Vol] 9.2 mg/dL Normal 8.6-10.3 [facility] Comment on above: Performed By: #### 2 4323-8 #### ALEKSANDR MEANS ([id number]) [facility] ([facility]) [address] [place] [address] 63351 Chloride [Moles/Vol] 103 mmol/L Normal 98-107 [facility] Comment on above: Performed By: #### 2 4323-8 #### ALEKSANDR MEANS ([id number]) [facility] ([facility]) [address] [place] [address] CO2 [Moles/Vol] 30 mmol/L Normal 21-32 [facility] Comment on above: Performed By: #### 2 4323-8 #### ALEKSANDR MEANS ([id number]) [facility] ([facility]) [address] [place] [address] 76660 Creatinine [Mass/Vol] 0.86 mg/dL Normal 0.50-1.05 [facility] Comment on above: Performed By: #### 2 4323-8 #### ALEKSANDR MEANS ([id number]) [facility] ([facility]) [address] [place] [address] 28823 Glomerular filtration rate/1.73 sq M.predicted 76 mL/min/1.73m*2 Normal >60 [facility] Comment on above: Result Comment: Calc ulations of estimated GFR are performed using the 2020 CKD-EPI Study Refit equation without the race variable for the IDMS-Traceable creatinine methods. https://jasn.asnjournals.org/content/early/ASN.0555045 988 Performed By: #### 2 4323-8 #### ALEKSANDR MEANS ([id number]) [facility] ([facility]) [address] [place] [address] 06645 Glucose [Mass/Vol] 149 mg/dL High 74-99 [facility] Comment on above: Performed By: #### 2 4323-8 #### ALEKSANDR MEANS ([id number]) [facility] ([facility]) [address] [place] [address] 14886 Potassium [Moles/Vol] 4.2 mmol/L Normal 3.5-5.3 [facility] Comment on above: Performed By: #### 2 4323-8 #### ALEKSANDR MEANS ([id number]) [facility] ([facility]) [address] [place] [address] 79631 Protein [Mass/Vol] 7.3 g/dL Normal 6.4-8.2 [facility] Comment on above: Performed By: #### 2 4323-8 #### ALEKSANDR MEANS ([id number]) [facility] ([facility]) [address] [place] [address] 58181 Sodium [Moles/Vol] 140 mmol/L Normal 136-145 [facility] Comment on above: Performed By: #### 2 4323-8 #### ALEKSANDR MEANS ([id number]) [facility] ([facility]) [address] [place] [address] 41331 Urea nitrogen [Mass/Vol] 23 mg/dL Normal 6-23 [facility] Comment on above: Performed By: #### 2 4323-8 #### ALEKSANDR MEANS ([id number]) [facility] ([facility]) [address] [place] [id number] HbA1c (Bld) [Mass fraction]o n 10-15-2023 Average glucose Estimated from glycated hemoglobin (Bld) [Mass/Vol] 180 mg/dL Normal Not Established [facility] Comment on above: Order Comment: Diagn osis of Diabetes-Adults Non-Diabetic: < or = 5.6% Increased risk for developing diabetes: 5.7-6.4% Diagnostic of diabetes: > or = 6.5% Monitoring of Diabetes Age (y)....................... Therapeutic Goal (%) Adults: >18.........................<7.0 Pediatrics: 13-18...................<7.5 Pediatrics: 7-12....................<8.0 Pediatrics: 0-6..................... 7.5-8.5 [employer]. Diabetes Care 33(S1)Jun 2009 Performed By: #### 4 548-4 #### BRANDON CLARY ([id number]) [facility] ([facility]) [address] [id number] Hemoglobin A1c/Hemoglobin.to sharla 10-15-2023 HbA1c (Bld) [Mass fraction] 7.9 % High see below [facility] Comment on above: Order Comment: Diagn osis of Diabetes-Adults Non-Diabetic: < or = 5.6% Increased risk for developing diabetes: 5.7-6.4% Diagnostic of diabetes: > or = 6.5% Monitoring of Diabetes Age (y)....................... Therapeutic Goal (%) Adults: >18.........................<7.0 Pediatrics: 13-18...................<7.5 Pediatrics: 7-12....................<8.0 Pediatrics: 0-6..................... 7.5-8.5 [employer]. Diabetes Care 33(S1), Jun 2009 Performed By: #### 4 548-4 #### ALEKSANDR MEANS ([id number]) [facility] ([facility]) [facility] [place] [address] Lipid 1996 panelon 4 Cholesterol [Mass/Vol] 133 mg/dL Normal 0-199 [facility] Comment on above: Result Comment: Age [...] By: #### 2 4331-1 #### ALEKSANDR MEANS ([id number]) [facility] ([facility]) [address] [place] [address] Cholesterol in HDL [Mass/Vol] 49.0 mg/dL Normal [facility] Comment on above: Result Comment: Age Very Low Low Normal High 0-19 Y < 35 < 40 40-45 ---- 20-24 Y ---- < 40 >45 ---- >24 Y ---- < 40 40-60 >60 Performed By: #### 2 4331-1 #### ALEKSANDR MEANS ([id number]) [facility] ([facility]) [facility] [place] [address] Cholesterol in LDL [Mass/Vol] 48 mg/dL Normal <=99 [facility] Comment on above: Result Comment: Near Borderline AGE Desirable Optimal High High Very High 0-19 Y 0 - 109 --- 110-129 >/= 130 ---- 20-24 Y 0 - 119 --- 120-159 >/= 160 ---- >24 Y 0 - 99 100-129 130-159 160-189 >/=190 Performed By: #### 2 4331-1 #### ALEKSANDR MEANS ([id number]) [facility] ([facility]) [facility] [place] [address] Cholesterol in VLDL [Mass/Vol] 36 mg/dL Normal 0-40 [facility] Comment on above: Performed By: #### 2 4331-1 #### ALEKSANDR MEANS ([id number]) [facility] ([facility]) [address] [place] [address] CHOLESTEROL/HDL RATIO 2.7 Normal [facility] Comment on above: Result Comment: Ref Values Desirable < 3.4 High Risk > 5.0 Performed By: #### 2 4331-1 #### ALEKSANDR MEANS ([id number]) [facility] ([facility]) [address] [place] [address] NON HDL CHOLESTEROL 84 mg/dL Normal 0-149 [facility] Comment on above: Result Comment: Age Desirable Borderline High High Very High 0-19 Y 0 - 119 120 - 144 >/= 145 >/= 160 20-24 Y 0 - 149 150 - 189 >/= 190 ---- >24 Y 30 mg/dL above LDL Cholesterol goal Performed By: #### 2 4331-1 #### ALEKSANDR MEANS ([id number]) [facility] ([facility]) [address] [place] [address] Triglyceride [Mass/Vol] 179 mg/dL High 0-149 [facility] Comment on above: Result Comment: Age [...] By: #### 2 4331-1 #### ALEKSANDR MEANS ([id number]) [facility] ([facility]) [address] [place] [address] M. tuberculosis stim IFN-g a nd spot count panel (Bld)on 10-15-2023 Gamma interferon negative control spot count (Bld) [#] Passed Normal [facility] Comment on above: Performed By: #### 7 4281-7 #### QUEST CHANTL ([id number]) [address] [place] M. tuberculosis stim IFN-g CFP10 Ag spot count (Bld) [#] 0 Normal [facility] Comment on above: Performed By: #### 7 4281-7 #### QUEST CHANTL ([id number]) [address] [place] M. tuberculosis stim IFN-g ESAT-6 Ag spot count (Bld) [#] 0 Normal [facility] Comment on above: Performed By: #### 7 4281-7 #### QUEST CHANTL ([id number]) [address] [place] M. tuberculosis stim IFN-g Ql (Bld) [Interp] Negative Normal Negative [facility] Comment on above: Result Comment: A [...] By: #### 7 4281-7 #### QUEST CHANTL ([id number]) [address] [place] Mitogen stimulated gamma interferon positive control spot count (Bld) [#] Passed Normal [facility] Comment on above: Result Comment: For additional information, please refer to http://education.zhouwu/faq/JMJ639 (This link is being provided for informational/ educational purposes only.) Performed By: #### 7 4281-7 #### QUEST CARLOS ([id number]) [address] [place], [place] TSH WITH REFLEX TO FREE T4 I F ABNORMALon 10-15-2023 TSH Qn 2.83 m[IU]/L Normal 0.44-3.98 [facility] Comment on above: Order Comment: TSH t esting is performed using different testing methodology at [facility] than at other [facility]. Direct result comparisons should only be made within the same method. Performed By: #### T URIEL #### BRANDON CLARY ([id number]) [facility] ([facility]) [address] [place] [address] CT CERVICAL SPINE WO IV CONT [facility] 07-19-2023 CT CERVICAL SPINE WO IV CONTRAST Interpreted By: Serena Mcghee, STUDY: CT HEAD WO IV CONTRAST; CT CERVICAL SPINE WO IV CONTRAST; 07/19/2023 8:43 pm INDICATION: Signs/Symptoms:Fall. COMPARISON: CT head dated 11/06/2022; CT of the cervical spine dated 11/06/2022. ACCESSION NUMBER(S): [id number]; [id number] ORDERING CLINICIAN: OSIEL VERGARA TECHNIQUE: Noncontrast axial [...] Serena Mcghee 07/19/2023 9:01 PM Dictation workstation: [id number] [facility] CT HEAD WO IV CONTRASTon CT HEAD WO IV CONTRAST Interpreted By: Serena Mcghee, STUDY: CT HEAD WO IV CONTRAST; CT CERVICAL SPINE WO IV CONTRAST; 07/19/2023 8:43 pm INDICATION: Signs/Symptoms:Fall. COMPARISON: CT head dated 11/06/2022; CT of the cervical spine dated 11/06/2022. ACCESSION NUMBER(S): [id number]; [id number] ORDERING CLINICIAN: OSIEL VERGARA TECHNIQUE: Noncontrast axial [...] Serena Mcghee 07/19/2023 9:01 PM Dictation workstation: [id number] [facility] MG Breast - bilateral Screen ingon 07-11-2023 No mammographic evidence of malignancy. BI-RADS CATEGORY: BI-RADS Category: 1 Negative. Recommendation: Routine Screening Mammogram in 1 Year. Recommended Date: 1 Year. Laterality: Bilateral. Signed by: Bala Zheng 07/11/2023 8:26 AM Dictation workstation: [id number] MMODAL Interpreted By: Bala Zheng, STUDY: ; 07/10/2023 10:08 am ACCESSION NUMBER(S): [id number] ORDERING CLINICIAN: RAFA JACINTO INDICATION: Screening. COMPARISON: [...] STUDY: ; 07/10/2023 10:08 am ACCESSION NUMBER(S): [id number] ORDERING CLINICIAN: RAFA JACINTO INDICATION: Screening. COMPARISON: [...] Bala Zheng 07/11/2023 8:26 AM Dictation workstation: [id number] [facility] Work Phone: MG Breast - bilateral Screen ingOrdered By: Bala Zheng on 07-11-2023 [facility] Work Phone: MG Breast - bilateral Screen ingon 07-10-2023 Radiology Study observation (narrative) [facility] Work Phone: PT Progress Noteon 3 [...] Initial Evaluation . Dx: R29.6. Referred by: Carlo Ann Adult Risk Screening There are no [...] code time is 23 minutes. Therapeutic exercise (62120): timed minutes 23, units 2 . Recheck, [...] code time is 23 minutes. Therapeutic exercise (59279): timed minutes 23, units 2 . Recheck, [...] Feb 04 2023 9:58AM EST (Author) Normal [facility] PT Progress Noteon 3 PT Progress Note [...] code time is 38 minutes. Therapeutic exercise (97016): timed minutes 38, units 3 . Step [...] Jan 29 2023 10:00AM EST (Author) Normal [facility] PT Progress Noteon 3 PT Progress Note [...] code time is 38 minutes. Therapeutic exercise (07397): timed minutes 38, units 3 . SEE [...] cone taps fwd x8 ea. Neuromuscular Re-education (95126):. Hand taps all directions x2' ea LE [...] Jan 21 2023 9:39AM EST (Author) Normal [facility] PT Progress Noteon 3 PT Progress Note [...] outside // bars to further challenge balance. 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 Therapeutic exercise (60298): timed minutes 38, units 3 . SEE [...] taps fwd x8 ea (N). Neuromuscular Re-education (74543):. Hand taps all directions x2' ea LE [...] Jan 14 2023 2:47PM EST (Author) Normal [facility] PT Progress Noteon 3 PT Progress Note [...] code time is 38 minutes. Therapeutic exercise (22165): timed minutes 30, units 2 . SEE [...] with ball x10 ea L. Neuromuscular Re-education (87819): timed minutes 8, units 1 . Hand taps all directions x2' e (more content not included)... Normal [facility] Therapy Re-eval Noteon 12-31 Therapy Re-eval Note [...] code time is 38 minutes. Therapeutic exercise (85650): timed minutes 30, units 2 . SEE [...] with ball x10 ea L. Neuromuscular Re-education (44296): timed minutes 8, units 1 (more content [...] code time is 30 minutes. Therapeutic exercise (60514): timed minutes 30, units 2 . [employer] [...] code time is 38 minutes. Therapeutic exercise (88846): timed minutes 38, units 3 . [employer] [...] Dec 19 2022 10:47AM EST (Author) Normal [facility] PT Progress Noteon 3 PT Progress Note [...] code time is 38 minutes. Therapeutic exercise (64268): timed minutes 38, units 3 . [employer] [...] Dec 03 2022 4:12PM EST (Author) Normal [facility] PT Initial Evaluationon 11-07 PT Initial Evaluation [...] when considering positive factors including support in retirement with barriers such as understanding of exercises. The pt verbalized understanding and agreement to goals and POC. Thank you for this referral and please call [phone] with any questions or concerns. Clinical Presentation: [...] SHe uses w/c when out of the retirement. Pt denies pain in LEs. Nurse, Anne, [...] and prognosis. Living Environment: walk-in shower . [facility]- no steps Uses shower chair. Personal Factors [...] contact via or Sue Simons PharmD PGY-1 Pipe Setter [phone] Electronic Signatures: Sue Simons ([facility]) (Signed 11-Nov-2022 15:41) Authored: Clinical Event Note Ann Cardoza (PharmD) (Signed 12-Nov-2022 08:03) Co-Signer: Clinical Event Note Last Updated: 12-Nov-2022 08:03 by Ann Cardoza (PharmD) Normal [facility] CBC AND DIFFERENTIALon 11-06 % AUTOMATED IMMATURE GRAN 0.4 % Normal 0.0 - 0.9 [facility] Comment on above: Result Comment: Reina ture Granulocyte Count (IG) includes promyelocytes, myelocytes and metamyelocytes but does not include bands. Percent differential counts (%) should be interpreted in the context of the absolute cell counts (cells/L). Performed By: #### C BCDF #### [address] [address] Basophils (Bld) [#/Vol] 0.01 10*3/uL Normal 0.00 - 0.10 [facility] Comment on above: Performed By: #### C BCDF #### [address] [address] Basophils/100 WBC (Bld) 0.1 % Normal 0.0 - 2.0 [facility] Comment on above: Performed By: #### C BCDF #### [address] [address] Eosinophils (Bld) [#/Vol] 0.15 10*3/uL Normal 0.00 - 0.70 [facility] Comment on above: Performed By: #### C BCDF #### [address] [address] Eosinophils/100 WBC (Bld) 1.8 % Normal 0.0 - 6.0 [facility] Comment on above: Performed By: #### C BCDF #### [address] [address] Erythrocyte distribution width (RBC) [Ratio] 13.2 % Normal 11.5 - 14.5 [facility] Comment on above: Performed By: #### C BCDF #### [address] [address] Hematocrit (Bld) [Volume fraction] 39.3 % Normal 36.0 - 46.0 [facility] Comment on above: Performed By: #### C BCDF #### [address] [address] Hemoglobin (Bld) [Mass/Vol] 11.7 g/dL Low 12.0 - 16.0 [facility] Comment on above: Performed By: #### C BCDF #### [address] [address] Lymphocytes (Bld) [#/Vol] 0.30 10*3/uL Low 1.20 - 4.80 [facility] Comment on above: Performed By: #### C BCDF #### [address] [address] Lymphocytes/100 WBC (Bld) 3.6 % Normal 13.0 - 44.0 [facility] Comment on above: Performed By: #### C BCDF #### [address] [address] MCHC (RBC) [Mass/Vol] 29.8 g/dL Low 32.0 - 36.0 [facility] Comment on above: Performed By: #### C BCDF #### [address] [address] MCV (RBC) [Entitic vol] 94 fL Normal 80 - 100 [facility] Comment on above: Performed By: #### C BCDF #### [address] [address] Monocytes (Bld) [#/Vol] 0.19 10*3/uL Normal 0.10 - 1.00 [facility] Comment on above: Performed By: #### C BCDF #### [address] [address] Monocytes/100 WBC (Bld) 2.3 % Normal 2.0 - 10.0 [facility] Comment on above: Performed By: #### C BCDF #### [address] [address] Neutrophils (Bld) [#/Vol] 7.70 10*3/uL Normal 1.20 - 7.70 [facility] Comment on above: Result Comment: Perc ent differential counts (%) should be interpreted in the context of the absolute cell counts (cells/L). Performed By: #### C BCDF #### [address] [address] Neutrophils/100 WBC (Bld) 91.8 % Normal 40.0 - 80.0 [facility] Comment on above: Performed By: #### C BCDF #### [address] [address] Platelets (Bld) [#/Vol] 286 10*3/uL Normal 150 - 450 [facility] Comment on above: Performed By: #### C BCDF #### [address] [address] RBC 4.19 x10E12/L Normal 4.00 - 5.20 [facility] Comment on above: Performed By: #### C BCDF #### [address] [address] WBC (Bld) [#/Vol] 8.4 10*3/uL Normal 4.4 - 11.3 [facility] Comment on above: Performed By: #### C BCDF #### [address] [address] CHEST 1 VIEWon 11-06-2022 CHEST 1 VIEW Patient Name: SHAJI ESQUIVEL STUDY: CHEST 1 VIEW; 11/06/2022 9:49 am INDICATION: chest pain . COMPARISON: 05/25/2022 ACCESSION NUMBER(S): [id number] ORDERING CLINICIAN: ERICKSON HERNANDEZ FINDINGS: Artifact is present on the films. The heart is not enlarged. No infiltrate, pleural effusion or pneumothorax is seen. IMPRESSION: No active cardiopulmonary disease. Electronically signed by: MARYSOL PEÑA MD Normal [facility] COMPREHENSIVE PANELon 2022 Albumin [Mass/Vol] 4.3 g/dL Normal 3.4 - 5.0 [facility] Comment on above: Performed By: #### C MP #### [address] [address] ALP [Catalytic activity/Vol] 66 U/L Normal 33 - 136 [facility] Comment on above: Performed By: #### C MP #### [address] [address] ALT [Catalytic activity/Vol] 6 U/L Low 7 - 45 [facility] Comment on above: Result Comment: Haylee ents treated with Sulfasalazine may generate falsely decreased results for ALT. Performed By: #### C MP #### [address] [address] Anion gap [Moles/Vol] 13 mmol/L Normal 10 - 20 [facility] Comment on above: Performed By: #### C MP #### [address] [id number] AST [Catalytic activity/Vol] 18 U/L Normal 9 - 39 [facility] Comment on above: Performed By: #### C MP #### [address] [address] Bilirubin [Mass/Vol] 0.4 mg/dL Normal 0.0 - 1.2 [facility] Comment on above: Performed By: #### C MP #### [address] [address] Calcium [Mass/Vol] 9.6 mg/dL Normal 8.6 - 10.3 [facility] Comment on above: Performed By: #### C MP #### [address] [address] Chloride [Moles/Vol] 102 mmol/L Normal 98 - 107 [facility] Comment on above: Performed By: #### C MP #### [address] [address] Creatinine [Mass/Vol] 0.88 mg/dL Normal 0.50 - 1.05 [facility] Comment on above: Performed By: #### C MP #### [address] [address] GFR/1.73 sq M.predicted among non-blacks MDRD (S/P/Bld) [Vol rate/Area] 74 mL/min/{1.73_m2} Normal >90 [facility] Comment on above: Result Comment: CALC ULATIONS OF ESTIMATED GFR ARE PERFORMED USING THE 2020 CKD-EPI STUDY REFIT EQUATION WITHOUT THE RACE VARIABLE FOR THE IDMS-TRACEABLE CREATININE METHODS. https://jasn.asnjournals.org/content/early/ASN.8528198 988 Performed By: #### C MP #### [address] [address] Glucose [Mass/Vol] 160 mg/dL High 74 - 99 [facility] Comment on above: Performed By: #### C MP #### [address] [address] HCO3 (Bld) [Moles/Vol] 28 mmol/L Normal 21 - 32 [facility] Comment on above: Performed By: #### C MP #### [address] [address] Potassium [Moles/Vol] 4.1 mmol/L Normal 3.5 - 5.3 [facility] Comment on above: Performed By: #### C MP #### [address] [address] Protein [Mass/Vol] 7.6 g/dL Normal 6.4 - 8.2 [facility] Comment on above: Performed By: #### C MP #### [address] [address] Sodium [Moles/Vol] 139 mmol/L Normal 136 - 145 [facility] Comment on above: Performed By: #### C MP #### [address] [address] Urea nitrogen [Mass/Vol] 31 mg/dL High 6 - 23 [facility] Comment on above: Performed By: #### C MP #### [address] [address] [address] HEAD WO CONTRASTon 2022 CT HEAD WO CONTRAST Patient Name: SHAJI ESQUIVEL STUDY: CT HEAD WO CONTRAST; 11/06/2022 11:23 am INDICATION: weakness . COMPARISON: 10/07/2022 ACCESSION NUMBER(S): [id number] ORDERING CLINICIAN: ERICKSON HERNANDEZ TECHNIQUE: Noncontrast axial [...] Electronically signed by: KATIE HIDALGO MD Normal [facility] CT Head without Contraston 0 11-06-2022 CT Head limited WO contrast Normal [facility] Work Phone: CT Neck with Contraston - CT Neck W contrast IV Normal [facility] Work Phone: Complete Blood Count + Diffe rentialon 11-06-2022 Basophils/100 WBC (Bld) 0.1 % 0.0 - 2.0 [facility] Work Phone: Erythrocyte distribution width (RBC) [Ratio] 13.2 % See Below [facility] Work Phone: Comment on above: Reference Range: 11. 5 - 14.5 Hematocrit (Bld) [Volume fraction] 39.3 % See Below [facility] Work Phone: Comment on above: Reference Range: 36. 0 - 46.0 Hemoglobin (Bld) [Mass/Vol] 11.7 g/dL below low threshold See Below [facility] [place] Work Phone: [phone] Comment on above: Reference Range: 12. 0 - 16.0 Lymphocytes/100 WBC (Bld) 3.6 % See Below [facility] brendan [place] Work Phone: [phone] Comment on above: Reference Range: 13. 0 - 44.0 MCHC (RBC) [Mass/Vol] 29.8 g/dL below low threshold See Below [facility] [place] Work Phone: [phone] Comment on above: Reference Range: 32. 0 - 36.0 MCV (RBC) [Entitic vol] 94 fL 80 - 100 [facility] [place] Work Phone: [phone] Monocytes/100 WBC (Bld) 2.3 % 2.0 - 10.0 [facility] [place] Work Phone: [phone] Neutrophils/100 WBC (Bld) 91.8 % See Below [facility] [place] Work Phone: [phone] Comment on above: Reference Range: 40. 0 - 80.0 Platelets (Bld) [#/Vol] 286 10*3/uL 150 - 450 [facility] [place] Work Phone: [phone] RBC (Bld) [#/Vol] 4.19 {x10E12/L} See Below [facility] [place] Work Phone: [phone] Comment on above: Reference Range: 4.0 0 - 5.20 WBC (Bld) [#/Vol] 8.4 10*3/uL 4.4 - 11.3 [facility] [place] Work Phone: Complete Blood Count + Differential 0.01 {x10E9/L} See Below [facility] Work Phone: Comment on above: Reference Range: 0.0 0 - 0.10 Complete Blood Count + Differential 0.15 {x10E9/L} See Below [facility] Work Phone: Comment on above: Reference Range: 0.0 0 - 0.70 Complete Blood Count + Differential 0.19 {x10E9/L} See Below [facility] Work Phone: Comment on above: Reference Range: 0.1 0 - 1.00 Complete Blood Count + Differential 0.30 {x10E9/L} below low threshold See Below [facility] Work Phone: Comment on above: Reference Range: 1.2 0 - 4.80 Complete Blood Count + Differential 7.70 {x10E9/L} See Below [facility] Work Phone: Comment on above: Reference Range: 1.2 0 - 7.70 Percent differential counts (%) should be interpreted in the context of the absolute cell counts (cells/L). Complete Blood Count + Differential 1.8 % 0.0 - 6.0 [facility] Work Phone: Complete Blood Count + Differential 0.4 % 0.0 - 0.9 [facility] Work Phone: Comment on above: Immature Granulocyte Count (IG) includes promyelocytes, myelocytes and metamyelocytes but does not include bands. Percent differential counts (%) should be interpreted in the context of the absolute cell counts (cells/L). Cult, Urineon 11-06-2022 Bacteria identified Cx Nom (U) Abnormal [facility] Work Phone: Laboratory - Chemistry and C hemistry - challengeon 11-06-2022 Albumin BCP dye [Mass/Vol] 4.3 g/dL 3.4 - 5.0 [facility] [place] Work Phone: ALP [Catalytic activity/Vol] 66 U/L 33 - 136 [facility] brendan [place] Work Phone: ALT With P-5'-P [Catalytic activity/Vol] 6 U/L below low threshold 7 - 45 [facility] [place] Work Phone: Comment on above: Patients treated wit h Sulfasalazine may generate falsely decreased results for ALT. Anion gap [Moles/Vol] 13 mmol/L 10 - 20 [facility] [place] Work Phone: AST With P-5'-P [Catalytic activity/Vol] 18 U/L 9 - 39 [facility] [place] Work Phone: Bilirubin [Mass/Vol] 0.4 mg/dL 0.0 - 1.2 [facility] brendan [place] Work Phone: Calcium [Mass/Vol] 9.6 mg/dL 8.6 - 10.3 [facility] [place] Work Phone: Chloride [Moles/Vol] 102 mmol/L 98 - 107 [facility] brendan [place] Work Phone: CO2 [Moles/Vol] 28 mmol/L 21 - 32 [facility] [place] Work Phone: Creatinine [Mass/Vol] 0.88 mg/dL See Below [facility] [place] Work Phone: Comment on above: Reference Range: 0.5 0 - 1.05 Glucose [Mass/Vol] 160 mg/dL above high threshold 74 - 99 [facility] b[facility] [place] Work Phone: Potassium [Moles/Vol] 4.1 mmol/L 3.5 - 5.3 [facility] Work Phone: [phone] Protein [Mass/Vol] 7.6 g/dL 6.4 - 8.2 [facility] Work Phone: [phone] Sodium [Moles/Vol] 139 mmol/L 136 - 145 [facility] Work Phone: [phone] Urea nitrogen [Mass/Vol] 31 mg/dL above high threshold 6 - 23 [facility] Work Phone: [phone] NECK WITH CONTRASTon 0 11-06-[address] NECK WITH CONTRAST Patient Name: SHAJI ESQUIVEL STUDY: CT NECK WITH CONTRAST; 11/06/2022 11:23 am INDICATION: sore throat. . COMPARISON: 01/11/2017. ACCESSION NUMBER(S): [id number] ORDERING CLINICIAN: ERICKSON HERNANDEZ TECHNIQUE: Axial CT [...] region. Electronically signed by: DELLA NORMAN MD [facility] [place] Panel Informationon 11-06 74 {mL/min/1.73m2} >90 [facility] Garcia Work Phone: Comment on above: CALCULATIONS OF VELASQUEZ MATED GFR ARE PERFORMED USING THE 2020 CKD-EPI STUDY REFIT EQUATION WITHOUT THE RACE VARIABLE FOR THE IDMS-TRACEABLE CREATININE METHODS.https://jasn.asnjournals.org/content//ASN .2262111025 Provider Note - ED v3on 10-09 Provider [...] She did have a fall at her retirement yesterday and has bruises to her L [...] History Descrip (more content not included)... Normal [facility] Radiology 11-06-2022 XR Chest [facility] Work Phone: Risk Screen - [...] an injured patient at a Trauma Center [place]/Alpha/[facility]): no Electronic Signatures: Saida Fairbanks ([place]) (Signed 06-Nov-2022 10:09) Authored: Preferred Language, Patient Preferred Pharmacy, Advanced Directives, Family Violence Adult, Learning Assessment (Patient), Learning Assessment (Other Learner), Pressure Injury/TB/Substance, Pressure Injury, CAGE Last Updated: 06-Nov-2022 10:09 by Saida Fairbanks ([place]) Normal [facility] TROPONIN I, HIGH SENSITIVITY on 11-06-2022 TROPONIN I, HIGH SENSITIVITY 4 ng/L Normal 0 - 13 [facility] Comment on above: Result Comment: . Less [...] performed using a different testing methodology at [facility] than at other [facility]. Direct result comparisons should only be made within the same method. Performed By: #### U [facility] #### [facility] [address] [place] [address] TROPONIN I, HIGH SENSITIVITY 4 ng/L Normal 0 - 13 [facility] Comment on above: Result Comment: . Less [...] performed using a different testing methodology at [facility] than at other [facility]. Direct result comparisons should only be made within the same method. Performed By: #### T [facility] #### [address] [place] [address] Tropinin I.cardiac panel High sensitivity method 4 [...] performed using a different testing methodology at [facility] than at other [facility]. Direct result comparisons should only be made [...] performed using a different testing methodology at [facility] than at other [facility]. Direct result comparisons should only be made within the same method. Triage - EDon 11-06-2022 Triage - ED Quick Triage: The patient and/or guardian verbally acknowledges placement for services into the following (when Urgent Care Service hours are operating):emergency department Chart Review: ARRIVAL INFORMATION Mode of Arrival: ambulance Agency: [facility] Agency Name: [facility] CHIEF COMPLAINT SHAJI ESQUIVEL is a Female patient with a chief complaint of weakness (Brought to ED per [facility] squad from [facility]. Staff reports that upon arrival to their facility today she seemed weaker than normal. She did have a fall at her retirement yesterday and has bruises to her L [...] support. Weight: 130.0 pounds. Calculated 59.0 kg. [place] Coma Scale: Best Eye Response: (E4) spontaneous Best Motor Response: (M6) obeys commands Best Verbal Response: (V5) oriented [place] Score: 15 Cough lasting greater than 3 [...] 06-Nov-2022 09:52 by Jackie Bonilla ([place]) Normal [facility] UA MICROSCOPICon 11-06-2022 RBC 3 /HPF Normal 0-5 [facility] Comment on above: Performed By: #### U RINC #### [facility] [address] [place] [address] SQUAMOUS EPITH. CELLS 1 /HPF Normal [facility] Comment on above: Performed By: #### U RINC #### [facility] [address] [place] [address] WBC 16 /HPF Abnormal 0-5 [facility] Comment on above: Performed By: #### U RINC #### [facility] [address] [place] [address] URINALYSIS WITH CULTURE IF I NDICATEDon 11-06-2022 Appearance (U) HAZY Normal CLEAR [facility] Comment on above: Performed By: #### U ARFX #### [address] [address] Bilirubin Ql (U) Negative Normal NEGATIVE [facility] Comment on above: Performed By: #### U ARFX #### [place] [address] Color (U) Yellow Normal STRAW,YELLOW [facility] Comment on above: Performed By: #### U ARFX #### [address] [address] Glucose Ql (U) Negative Normal NEGATIVE [facility] Comment on above: Performed By: #### U ARFX #### [address] [address] Hemoglobin Ql (U) Negative Normal NEGATIVE [facility] Comment on above: Performed By: #### U ARFX #### [address] [address] Ketones Ql (U) Negative Normal NEGATIVE [facility] Comment on above: Performed By: #### U ARFX #### [address] [address] Leukocyte esterase Test strip Ql (U) TRACE Abnormal NEGATIVE [facility] Comment on above: Performed By: #### U ARFX #### [address] [address] Nitrite Ql (U) Positive Abnormal NEGATIVE [facility] Comment on above: Performed By: #### U ARFX #### [address] [address] pH (U) 7.0 [pH] Normal 5.0 - 8.0 [facility] Comment on above: Performed By: #### U ARFX #### [address] [address] Protein Ql (U) Negative Normal NEGATIVE [facility] Comment on above: Performed By: #### U ARFX #### [address] [address] Specific gravity (U) [Rel density] 1.036 High 1.005 - 1.035 [facility] Comment on above: Performed By: #### U ARFX #### [address] [address] Urobilinogen (U) [Mass/Vol] mg/dL Normal 0.0 - 1.9 [facility] Comment on above: Performed By: #### U ARFX #### [address] [address] Color (U) Yellow See Below [facility] Work Phone: Comment on above: Reference Range: STR AW,YELLOW Glucose Ql (U) Negative NEGATIVE [facility] Work Phone: Ketones Ql (U) Negative NEGATIVE [facility] Work Phone: Leukocyte esterase Test strip Ql (U) TRACE Abnormal NEGATIVE [facility] Work Phone: pH (U) 7.0 [pH] 5.0 - 8.0 [facility] Work Phone: Protein (U) [Mass/Vol] Negative NEGATIVE [facility] Work Phone: RBC (U) [#/Vol] Negative NEGATIVE [facility] Work Phone: Specific gravity (U) [Rel density] 1.036 1 above high threshold See Below [facility] [place] Work Phone: Comment on above: Reference Range: 1.0 05 - 1.035 URINALYSIS WITH CULTURE IF INDICATED Positive Abnormal NEGATIVE [facility] brendan [place] Work Phone: [phone] URINALYSIS WITH CULTURE IF INDICATED <2.0 0.0 - 1.9 [facility] brendan [place] Work Phone: [phone] URINALYSIS WITH CULTURE IF INDICATED Negative NEGATIVE [facility] brendan [place] Work Phone: [phone] URINALYSIS WITH CULTURE IF INDICATED HAZY CLEAR [facility] b[facility] [place] Work Phone: URINE CULTURE,BACTERIALon URINE CULTURE,BACTERIAL PATIENT: SHAJI ESQUIVEL [facility]ATION: [facility] BILL#: [id number] : 60 AGE: SEX: F ORDERED BY: [...] DOSE DEPENDENT NS=NONSUSCEPTIBLE X=REPORTED IN ERROR Normal [facility] Comment on above: Performed By: #### U [facility] #### [facility] [address] [place] [address] Urinalysis, Microscopicon Urinalysis, Microscopic 1 {/HPF} [facility] [place] Work Phone: [phone] Urinalysis, Microscopic 3 {/HPF} 0-5 [facility] ritan [place] Work Phone: [phone] Urinalysis, Microscopic 16 {/HPF} Abnormal 0-5 [facility] Work Phone: [phone] CT C-SPINE WO CONTRASTon CT C-SPINE WO CONTRAST Patient Name: SHAJI ESQUIVEL STUDY: CT HEAD WO CONTRAST; CT FACIAL BONES; CT CORONAL/SAGITTAL/OBLIQU E RECON; CT C-SPINE WO CONTRAST; 10/07/2022 10:13 pm INDICATION: fall . COMPARISON: CT head and cervical spine 08/18/2022 ACCESSION NUMBER(S): [id number]; [id number]; [id number]; [id number] ORDERING CLINICIAN: OSIEL VERGARA TECHNIQUE: Axial noncontrast [...] spine. Electronically signed by: RENA ABBOTT MD [facility] CT FACIAL BONES W/O CONTRAST on 10-08-2022 CT FACIAL BONES W/O CONTRAST Patient Name: SHAJI ESQUIVEL STUDY: CT HEAD WO CONTRAST; CT FACIAL BONES; CT CORONAL/SAGITTAL/OBLIQU E RECON; CT C-SPINE WO CONTRAST; 10/07/2022 10:13 pm INDICATION: fall . COMPARISON: CT head and cervical spine 08/18/2022 ACCESSION NUMBER(S): [id number]; [id number]; [id number]; [id number] ORDERING CLINICIAN: OSIEL VERGARA TECHNIQUE: Axial noncontrast [...] spine. Electronically signed by: RENA ABBOTT MD [facility] CT HEAD WO CONTRASTon 2022 CT HEAD WO CONTRAST Patient Name: SHAJI ESQUIVEL STUDY: CT HEAD WO CONTRAST; CT FACIAL BONES; CT CORONAL/SAGITTAL/OBLIQU E RECON; CT C-SPINE WO CONTRAST; 10/07/2022 10:13 pm INDICATION: fall . COMPARISON: CT head and cervical spine 08/18/2022 ACCESSION NUMBER(S): [id number]; [id number]; [id number]; [id number] ORDERING CLINICIAN: OSIEL VERGARA TECHNIQUE: Axial noncontrast [...] spine. Electronically signed by: RENA ABBOTT MD [facility] CT IMAGE RECONSTRUCTION 3D V OLUME and MIPon 10-08-2022 CT IMAGE RECONSTRUCTION 3D VOLUME and MIP Patient Name: SHAJI ESQUIVEL STUDY: CT HEAD WO CONTRAST; CT FACIAL BONES; CT CORONAL/SAGITTAL/OBLIQU E RECON; CT C-SPINE WO CONTRAST; 10/07/2022 10:13 pm INDICATION: fall . COMPARISON: CT head and cervical spine 08/18/2022 ACCESSION NUMBER(S): [id number]; [id number]; [id number]; [id number] ORDERING CLINICIAN: OSIEL VERGARA TECHNIQUE: Axial noncontrast [...] spine. Electronically signed by: RENA ABBOTT MD [facility] Provider Note - ED v3on 05-0 Provider [...] and all history was presented by patient's compensation agent at the retirement and EMS. ROS: All systems are negative [...] of fall (pt here via EMS from retirement, pt was reaching over to pick something [...] [October 07 (more content not included)... Normal [facility] Risk Screen - Adult Emergenc yon 10-07-2022 [...] an injured patient at a Trauma Center [place] no Electronic Signatures: Lakshmi Aguayo (RN) (Signed 07-Oct-2022 21:02) Authored: Preferred Language, Patient Preferred Pharmacy, Advanced Directives, Family Violence Adult, Learning Assessment (Patient), Learning Assessment (Other Learner), Pressure Injury/TB/Substance, Pressure Injury, CAGE Last Updated: 07-Oct-2022 21:02 by Lakshmi Aguayo (RN) [facility] Triage - EDon 10-07-2022 Triage - ED Chart Review: ARRIVAL INFORMATION Mode of Arrival: ambulance Agency Name: [place] CHIEF COMPLAINT SHAJI ESQUIVEL is a Female patient with a chief complaint of fall (pt here via EMS from retirement, pt was reaching over to pick something [...] Last Updated: 07-Oct-2022 21:24 by Lakshmi Aguayo) [facility] Clinical Event Note-ED Post Discharge Result Follow [...] these results and how to follow up. [address] [place] [address] Dr. Brock[place]ster, [facility] Would recommend DC Keflex and start Bactrim. If there are any other questions for the ED Post-Discharge Culture Follow Up Team, please contact [phone]. . Ann Cardoza PharmD, [facility] Clinical Pharmacist - Culture Callback Pharmacist [facility] Electronic Signatures: Ann Cardoza (PharmAmeena) (Signed 22-Aug-2022 09:09) Authored: Clinical Event Note Last Updated: 22-Aug-2022 09:09 by Ann Cardoza (PharmAmeena) [facility] Clinical Event Note-ED Post Discharge Result Follow [...] room. The patient was discharged back their retirement. The Culture Callback Team will turn over [...] Post-Discharge Culture Follow Up Team, please contact [phone]. . Ramón Kimble PharmD PGY1 Pipe Setter Culture Callback Pharmacist [facility] Electronic Signatures: Ramón Kimble ([facility]) (Signed 22-Aug-2022 09:48) Authored: Clinical Event Note Ann CardozaPharmAmeena) (Signed 23-Aug-2022 08:16) Co-Signer: Clinical Event Note Last Updated: 23-Aug-2022 08:16 by Ann CardozaPharmAmeena) [facility] Clinical Event Note-ED Post Discharge Result Follow [...] Post-Discharge Culture Follow Up Team, please contact [phone]. . Angeles Rai PharmD [facility] PGY1 Pipe Setter Electronic Signatures: Angeles [facility]) (Signed 21-Aug-2022 14:15) Authored: Clinical Event Note Ann CardozaPharmAmeena) (Signed 22-Aug-2022 08:22) Co-Signer: Clinical Event Note Last Updated: 22-Aug-2022 08:22 by Ann Cardoza (PharmD) [facility] BASIC METABOLIC PANELon 03- Anion gap [Moles/Vol] 14 mmol/L Normal 10 - 20 [facility] Comment on above: Performed By: #### B MP #### [address] [address] Calcium [Mass/Vol] 9.0 mg/dL Normal 8.6 - 10.3 [facility] Comment on above: Performed By: #### B MP #### [address] [address] Chloride [Moles/Vol] 110 mmol/L High 98 - 107 [facility] Comment on above: Performed By: #### B MP #### [address] [address] Creatinine [Mass/Vol] 0.78 mg/dL Normal 0.50 - 1.05 [facility] Comment on above: Performed By: #### B MP #### [address] [address] GFR/1.73 sq M.predicted among non-blacks MDRD (S/P/Bld) [Vol rate/Area] 86 mL/min/{1.73_m2} Normal >90 [facility] Comment on above: Result Comment: CALC ULATIONS OF ESTIMATED GFR ARE PERFORMED USING THE 2020 CKD-EPI STUDY REFIT EQUATION WITHOUT THE RACE VARIABLE FOR THE IDMS-TRACEABLE CREATININE METHODS. https://jasn.asnjournals.org/content//ASN.7768400 988 Performed By: #### B MP #### [address] [address] Glucose [Mass/Vol] 117 mg/dL High 74 - 99 [facility] Comment on above: Performed By: #### B MP #### [address] [address] HCO3 (Bld) [Moles/Vol] 25 mmol/L Normal 21 - 32 [facility] Comment on above: Performed By: #### B MP #### [address] [address] Potassium [Moles/Vol] 3.9 mmol/L Normal 3.5 - 5.3 [facility] Comment on above: Performed By: #### B MP #### [address] [address] Sodium [Moles/Vol] 145 mmol/L Normal 136 - 145 [facility] Comment on above: Performed By: #### B MP #### [address] [address] Urea nitrogen [Mass/Vol] 29 mg/dL High 6 - 23 [facility] Comment on above: Performed By: #### B MP #### [address] [address] CBC AND DIFFERENTIALon 08-18 % AUTOMATED IMMATURE GRAN 0.3 % Normal 0.0 - 0.9 [facility] Comment on above: Result Comment: Reina ture Granulocyte Count (IG) includes promyelocytes, myelocytes and metamyelocytes but does not include bands. Percent differential counts (%) should be interpreted in the context of the absolute cell counts (cells/L). Performed By: #### U RINC #### [facility] [address] [place] [address] Basophils (Bld) [#/Vol] 0.03 10*3/uL Normal 0.00 - 0.10 [facility] Comment on above: Performed By: #### U RINC #### [facility] [address] [place] [address] Basophils/100 WBC (Bld) 0.4 % Normal 0.0 - 2.0 [facility] Comment on above: Performed By: #### U RINC #### [facility] [address] [place] [address] Eosinophils (Bld) [#/Vol] 0.03 10*3/uL Normal 0.00 - 0.70 [facility] Comment on above: Performed By: #### U RINC #### [facility] [address] [place] [address] Eosinophils/100 WBC (Bld) 0.4 % Normal 0.0 - 6.0 [facility] Comment on above: Performed By: #### U RINC #### [facility] [address] [place] [address] Lymphocytes (Bld) [#/Vol] 1.31 10*3/uL Normal 1.20 - 4.80 [facility] Comment on above: Performed By: #### U RINC #### [facility] [address] [place] [address] Lymphocytes/100 WBC (Bld) 17.6 % Normal 13.0 - 44.0 [facility] Comment on above: Performed By: #### U RINC #### [facility] [address] [place] [address] Monocytes (Bld) [#/Vol] 0.46 10*3/uL Normal 0.10 - 1.00 [facility] Comment on above: Performed By: #### U RINC #### [facility] [address] [place] [address] Monocytes/100 WBC (Bld) 6.2 % Normal 2.0 - 10.0 [facility] Comment on above: Performed By: #### U RINC #### [facility] [address] [place] [address] Neutrophils (Bld) [#/Vol] 5.60 10*3/uL Normal 1.20 - 7.70 [facility] Comment on above: Result Comment: Perc ent differential counts (%) should be interpreted in the context of the absolute cell counts (cells/L). Performed By: #### U RINC #### [facility] [address] [place] [address] Neutrophils/100 WBC (Bld) 75.1 % Normal 40.0 - 80.0 [facility] Comment on above: Performed By: #### U RINC #### [facility] [address] [place] [address] Erythrocyte distribution width (RBC) [Ratio] 13.4 % Normal 11.5 - 14.5 [facility] Comment on above: Performed By: #### U RINC #### [facility] [address] [place] [address] Hematocrit (Bld) [Volume fraction] 41.4 % Normal 36.0 - 46.0 [facility] Comment on above: Performed By: #### U RINC #### [facility] [address] [place] [address] Hemoglobin (Bld) [Mass/Vol] 12.3 g/dL Normal 12.0 - 16.0 [facility] Comment on above: Performed By: #### U RINC #### [facility] [address] [place] [address] MCHC (RBC) [Mass/Vol] 29.7 g/dL Low 32.0 - 36.0 [facility] Comment on above: Performed By: #### U RINC #### [facility] [address] [place] [address] MCV (RBC) [Entitic vol] 94 fL Normal 80 - 100 [facility] Comment on above: Performed By: #### U RINC #### [facility] [address] [place] [address] Platelets (Bld) [#/Vol] 291 10*3/uL Normal 150 - 450 [facility] Comment on above: Performed By: #### U RINC #### [facility] [address] [place] [address] RBC 4.41 x10E12/L Normal 4.00 - 5.20 [facility] Comment on above: Performed By: #### U RINC #### [facility] [address] [place] [address] WBC (Bld) [#/Vol] 7.5 10*3/uL Normal 4.4 - 11.3 [facility] Comment on above: Performed By: #### U RINC #### [facility] [address] [place] [address] CT C-SPINE WO CONTRASTon CT C-SPINE WO CONTRAST Patient Name: SHAJI ESQUIVEL STUDY: CT C-SPINE WO CONTRAST; 08/18/2022 1:14 pm INDICATION: fall . COMPARISON: None. ACCESSION NUMBER(S): [id number] ORDERING CLINICIAN: SHARMAINE DEAN TECHNIQUE: Unenhanced axial [...] changes. Electronically signed by: MIKE PRICE MD [facility] CT HEAD WO CONTRASTon 2022 CT HEAD WO CONTRAST Patient Name: SHAJI ESQUIVEL STUDY: CT HEAD WO CONTRAST; 08/18/2022 1:14 pm INDICATION: fall . COMPARISON: 08/09/2022 ACCESSION NUMBER(S): [id number] ORDERING CLINICIAN: SHARMAINE DEAN TECHNIQUE: Unenhanced images [...] process. Electronically signed by: MIKE PRICE MD [facility] HAND MIN 3 VIEWSon 3 HAND MIN 3 VIEWS Patient Name: SHAJI ESQUIVEL STUDY: HAND MIN 3 VIEWS; Left; 08/18/2022 1:00 pm INDICATION: fall . COMPARISON: None. ACCESSION NUMBER(S): [id number] ORDERING CLINICIAN: SHARMAINE DEAN FINDINGS: Exam is limited by flexion of the fingers and inability to the remove a ring from the 4th digit. All no definite acute fracture within limits of this exam. IMPRESSION: No definite acute findings. Electronically signed by: HAO BELLO MD [facility] Provider Note - ED v3on 08-07 Provider Note - ED v3 Provider Note: Chart Review: ED NOTES ED NOTES: HPI: Patient brought to the emergency department by norah after reported fall at a local retirement. Per report from norah patient was sat [...] yes or no questions, GCS 15 , machine stemmer II-XII grossly intact. Sensation and motor function of extremities grossly intact. Psych: Appropriate mood and affect. I have reviewed and confirmed nurses/medics notes for patient past, social and family history. Portions of this note were dictated by speech recognition. An attempt at proof reading was made to minimize errors. Minor errors in driller machine may be present. HISTORY OF PRESENTING ILLNESS [...] (GERD) Description:Anemia (more content not included)... Normal [facility] Risk Screen - Adult Emergenc yon 08-18-2022 [...] an injured patient at a Trauma Center [place]/Alpha/[place]): no Electronic Signatures: Anne Zavaleta) (Signed 18-Aug-2022 12:49) Authored: Preferred Language, Patient Preferred Pharmacy, Advanced Directives, Family Violence Adult, Learning Assessment (Patient), Learning Assessment (Other Learner), Pressure Injury/TB/Substance, Pressure Injury, CAGE Last Updated: 18-Aug-2022 12:49 by Anne Zavaleta (RN) [facility] Triage - EDon 08-18-2022 Triage - ED [...] 18-Aug-2022 12:48 by Anne Zavaleta ([place]) Normal [facility] UA MICROSCOPICon 08-18-2022 BACTERIA 4+ /HPF Abnormal [facility] Comment on above: Performed By: #### U RINC #### [facility] [address] [place] [address] Mucus Ql (Urine sed) 3+ /LPF Normal [facility] Comment on above: Performed By: #### U RINC #### [facility] [address] [place] [address] RBC 2 /HPF Normal 0-5 [facility] Comment on above: Performed By: #### U RINC #### [facility] [address] [place] [address] SQUAMOUS EPITH. CELLS 1 /HPF Normal [facility] Comment on above: Performed By: #### U RINC #### [facility] [address] [place] [address] WBC 18 /HPF Abnormal 0-5 [facility] Comment on above: Performed By: #### U RINC #### [facility] [address] [place] [address] URINALYSIS WITH CULTURE IF I NDICATEDon 08-18-2022 Appearance (U) HAZY Normal CLEAR [facility] Comment on above: Performed By: #### U ARFX #### [facility] [address] [place] [address] Bilirubin Ql (U) Negative Normal NEGATIVE [facility] Comment on above: Performed By: #### U ARFX #### [place] [address] Color (U) Serenity Normal STRAW,YELLOW [facility] Comment on above: Performed By: #### U ARFX #### [place] [address] Glucose Ql (U) Negative Normal NEGATIVE [facility] Comment on above: Performed By: #### U ARFX #### [place] [address] Hemoglobin Ql (U) Negative Normal NEGATIVE [facility] Comment on above: Performed By: #### U ARFX #### [place] [address] Ketones Ql (U) 20(1+) Abnormal NEGATIVE [facility] Comment on above: Performed By: #### U ARFX #### [place] [address] Leukocyte esterase Test strip Ql (U) TRACE Abnormal NEGATIVE [facility] Comment on above: Performed By: #### U ARFX #### [place] [address] Nitrite Ql (U) Positive Abnormal NEGATIVE [facility] Comment on above: Performed By: #### U ARFX #### [place] [address] pH (U) 5.0 [pH] Normal 5.0 - 8.0 [facility] Comment on above: Performed By: #### U ARFX #### [place] [address] Protein Ql (U) 30(1+) Abnormal NEGATIVE [facility] Comment on above: Performed By: #### U ARFX #### [place] [address] Specific gravity (U) [Rel density] 1.029 Normal 1.005 - 1.035 [facility] Comment on above: Performed By: #### U ARFX #### [place] [address] Urobilinogen (U) [Mass/Vol] 2.0 mg/dL High 0.0 - 1.9 [facility] Comment on above: Result Comment: Due to [...] urobilinogen. Performed By: #### U ARFX #### [place] [address] Lab Specimen Source Normal Located within [facility] Comment on above: Performed By: #### U ARFX #### [place] [address] Performed By: #### U RINC #### [facility] [address] [place] [address] URINE CULTURE,BACTERIALon URINE CULTURE,BACTERIAL PATIENT: SHAJI ESQUIVEL LOCATION: [facility]#: [id number] : 60 AGE: SEX: F ORDERED BY: [...] DOSE DEPENDENT NS=NONSUSCEPTIBLE X=REPORTED IN ERROR Normal [facility] Comment on above: Performed By: #### U [facility] ####[id number] [place] [address] CT C-SPINE WO CONTRASTon CT C-SPINE WO CONTRAST Addendum Begins Patient Name: SHAJI ESQUIVEL ADDENDUM: 3D volume rendered images were provided and reviewed. Electronically signed by: ZULEMA BRAXTON MD Addendum Ends Patient Name: SHAJI ESQUIVEL STUDY: CT HEAD WO CONTRAST; CT FACIAL BONES; CT C-SPINE WO CONTRAST; 08/09/2022 10:10 am INDICATION: head injury ; fall with injury . COMPARISON: None. ACCESSION NUMBER(S): [id number]; [id number]; [id number] ORDERING CLINICIAN: ERICKSON HERNANDEZ TECHNIQUE: Noncontrast axial [...] spine. Electronically signed by: ZULEMA BRAXTON MD [facility] CT FACIAL BONES W/O CONTRAST on 08-09-2022 [...] with injury . COMPARISON: None. ACCESSION NUMBER(S): [id number]; [id number]; [id number] ORDERING CLINICIAN: ERICKSON HERNANDEZ TECHNIQUE: Noncontrast axial [...] spine. Electronically signed by: ZULEMA BRAXTON MD [facility] CT HEAD WO CONTRASTon 2022 CT HEAD WO CONTRAST Addendum Begins Patient Name: SHAJI ESQUIVEL ADDENDUM: 3D volume rendered images were provided and reviewed. Electronically signed by: ZULEMA BRAXTON MD Addendum Ends Patient Name: SHAJI ESQUIVEL STUDY: CT HEAD WO CONTRAST; CT FACIAL BONES; CT C-SPINE WO CONTRAST; 08/09/2022 10:10 am INDICATION: head injury ; fall with injury . COMPARISON: None. ACCESSION NUMBER(S): [id number]; [id number]; [id number] ORDERING CLINICIAN: ERICKSON HERNANDEZ TECHNIQUE: Noncontrast axial [...] spine. Electronically signed by: ZULEMA BRAXTON MD [facility] CT IMAGE RECONSTRUCTION 3D V OLUME and [...] with injury . COMPARISON: None. ACCESSION NUMBER(S): [id number]; [id number]; [id number] ORDERING CLINICIAN: ERICKSON HERNANDEZ TECHNIQUE: Noncontrast axial [...] spine. Electronically signed by: ZULEMA BRAXTON MD [facility] Provider Note - ED v3on 03-0 Provider [...] SIGNS: T PRBP SpO2O2(LPM) %FiO2 Method 09-Aug-2022 09:23:[id number]/75 98 room air, no respiratory support MDM [...] of Care: (more content not included)... Normal [facility] Risk Screen - Adult Emergenc yon 08-09-2022 [...] an injured patient at a Tra[place] Center [place] a/[place]): no Electronic Signatures: Anna Bermudez ([place]) (Signed 09-Aug-2022 09:26) Authored: Preferred Language, Patient Preferred Pharmacy, Advanced Directives, Family Violence Adult, Learning Assessment (Patient), Learning Assessment (Other Learner), Pressure Injury/TB/Substance, Pressure Injury, CAGE Last Updated: 09-Aug-2022 09:26 by Anna Bermudez (RN) [facility] Triage - EDon 08-09-2022 Triage - ED [...] BMI (kg/m2): 24.218 Calculated BSA (m2) 1.62 [place] Coma Scale: Best Eye Response: (E4) spontaneous Best Motor Response: (M6) obeys commands Best Verbal Response: (V4) confused [place] Score: 14 Allergies: no Patient has homicidal [...] Updated: 09-Aug-2022 09:25 by Anna Bermudez (RN) [facility] CHEST 1 VIEWon 05-26-2022 CHEST 1 VIEW STUDY: Chest Radiograph; 05/25/2022 10:15 PM INDICATION: Trouble swallowing. Looking for foreign body. COMPARISON: 08/10/2021 XR Chest ACCESSION NUMBER(S): [id number] ORDERING CLINICIAN: FRANCE LOWE MD TECHNIQUE: Frontal chest was obtained at 2215 hours. FINDINGS: No radiodense foreign body is identified. Both lungs are clear. The heart and mediastinum are of normal size and contour. No pleural effusion. No pneumothorax. No acute bony abnormality identified. IMPRESSION: No findings of an acute cardiopulmonary process. Signed by Sachin Henley MD Electronically signed by: SACHIN HENLEY MD [facility] SOFT TISSUE NECKon SOFT TISSUE NECK STUDY: Soft Tissue Neck Radiographs; 05/25/2022 at 10:17 PM INDICATION: Difficulty swallowing. Evaluate for foreign body. COMPARISON: XR chest of same date, 05/25/22. ACCESSION NUMBER(S): [id number] ORDERING CLINICIAN: FRANCE LOWE MD TECHNIQUE: Two [...] MD Electronically signed by: FARIDA LUCIANO MD [facility] Provider Note - ED v3on 05-09 Provider Note - ED v3 Provider Note: Chart Review: ED NOTES ED NOTES: History of Present Illness: Female presenting to emergency department from [facility] after choking on a piece [...] pertinent to complaint Social history: Lives in [facility], denies EtOH or drug use [...] SIGNS: T PRBP SpO2O2(LPM) %FiO2 Method 25-May-2022 23:13:00-9681131/90 95 room air, no respiratory support 25-May-2022 19:37:00-1556597/80 96 room air, no respiratory support 25-May-2022 18:53:00-36.52885706/82 99 room air, no respiratory support MDM [...] Course, Clini (more content not included)... Normal [facility] Risk Screen - Adult Emergenc yon 05-25-2022 [...] an injured patient at a Trauma Center [place] [place]/Franci a/[place]orm[place]): no Electronic Signatures: Anne Zavaleta ([place]) (Signed 25-May-2022 19:05) Authored: Preferred Language, Patient Preferred Pharmacy, Advanced Directives, Family Violence Adult, Learning Assessment (Patient), Learning Assessment (Other Learner), Pressure Injury/TB/Substance, Pressure Injury, CAGE Last Updated: 25-May-2022 19:05 by Anne Zavaleta (RN) [facility] Triage - EDon 05-25-2022 Triage - ED Chart Review: ARRIVAL INFORMATION Mode of Arrival: ambulance Agency Name: [facility] CHIEF COMPLAINT SHAJI ESQUIVEL is a Female [...] to assess Risk Screens Suicide Risk Screen [place] Risk Screen: unable to assess [place] Risk Screen Brunson Fall Scale Screening Unable [...] History: Past Medical History Reviewedyes Electronic Signatures: nAne Zavaleta) (Signed 25-May-2022 19:04) Entered: Risk Screens, Pain, Travel History, Chart Review, Scores, Past Medical History Authored: Quick Triage, Risk Screens, Pain, Travel History, Chart Review, Scores, Past Medical History Last Updated: 25-May-2022 19:04 by Anne Zavaleta ([place]) [facility] VASC LAB Venous Duplex Ultra sound DVTon 11-14-2022 VASC LAB Venous [place] [address] [phone], Vascular Lab Report Lower Venous Duplex Ultrasound Patient Name: SHAJI Pruitt Reading Physician: [id number] Deshaun Lee MD Study Date: 04/22/2022 Referring ANTWAN MAHARAJ Physician: MRN/PID: [id number] PCP: Accession/Order#: [id number] CC Report to: Date of : 1960 Technologist: Tanna Drake RVT Gender: F Technologist 2: Admission Status: Outpatient Location Performed: [facility] Diagnosis/ICD: R60.0-Localized (leg) edema; M79.89-Right leg swelling Procedure/CPT: 44141 Peripheral venous duplex scan for DVT Limited-88738 CONCLUSIONS: Right Lower Venous: No evidence of [...] Iliac Yes None CFV Yes None Spontaneous/Phasic [id number] Deshaun Lee MD Final Normal [facility] XR LUMBAR PUNCTURE (DIAGNOST IC) WITH GAIT ANALYSISon 04-17-2022 XR LUMBAR PUNCTURE (DIAGNOSTIC) WITH GAIT ANALYSIS EXAMINATION: XR LUMBAR PUNCTURE (DIAGNOSTIC) WITH GAIT ANALYSIS CLINICAL INDICATION: NPHORDERING SYSTEM PROVIDED HISTORY: NPH, TECHNOLOGIST PROVIDED HISTORY: Illness/Other Reason for exam: G91.2 (ICD-10-CM) - NPH (normal pressure hydrocephalus) ([facility] Encounter Type: Initial Additional signs and symptoms: no Fluoro dose in mGy: 14.5 ORDERING SYSTEM PROVIDED DIAGNOSIS CODES: G91.2 NPH (normal pressure hydrocephalus) ([facility]) PHYSICIAN: Dr. Tong FLUOROSCOPY DOSE: Fluoro dose [...] FriApr 17, 2022 10:14:57 AM EST Normal [facility] Comment on above: Order Comment: Injur y/Trauma or Illness?:Illness/Other How long have you had these symptoms (acute/chronic)?:Acute Reason for exam?:G91.2 (ICD-10-CM) - NPH (normal pressure hydrocephalus) ([facility] Type of Exam?:Initial Additional signs and symptoms?:no Fluoro time in minutes:16 Fluoro dose in mGy?:14.5 CBC panel Auto (Bld)on 04-15 Erythrocyte distribution width (RBC) [Entitic vol] 12.3 % 11.6 - 14.8 % [facility] Hematocrit (Bld) [Volume fraction] 39.5 % 36 - 46 % [facility] Hemoglobin (Bld) [Mass/Vol] 12.0 g/dL 12 - 16 g/dL [facility] Interpretation and review of laboratory results Abnormal [facility] MCH (RBC) [Entitic mass] 29.2 pg 26 - 34 pg [facility] MCHC (RBC) [Mass/Vol] 30.4 g/dL Low 31 - 37 g/dL [facility] MCV (RBC) [Entitic vol] 96.1 fL 80 - 100 fL [facility] Nucleated RBC (Bld) [#/Vol] 0.00 10*3/uL [facility] Nucleated RBC/100 WBC (Bld) [Ratio] 0.0 % [facility] Platelet mean volume (Bld) [Entitic vol] 10.0 fL 9.4 - 12.4 fL [facility] Platelets (Bld) [#/Vol] 299 10*3/uL [facility] RBC (Bld) [#/Vol] 4.11 10*6/uL [facility] WBC (Bld) [#/Vol] 6.64 10*3/uL [facility] MARCELL Teston 02-26-2019 MARCELL Test Negative Normal Negative [facility] Comment on above: Performed By: #### 8 [id number] #### GRAYSON Misc Micro SubSection , Glucose POCon 02-25-2019 Glucose [Mass/Vol] 97 mg/dL Normal 70-99 [facility] Comment on above: Performed By: #### 5 [id number] #### GRAYSON POC Subsection [facility] [place] [address] XR UPPER GI SERIESon 019 1. Limited study. 2. No esophageal mass or stricture. 3. Findings suggestive of gastritis with possible ulcers in the gastric antrum. 4. Large amount of gastroesophageal reflux. [employer] Workstation ID: [id number] [facility] EXAMINATION: XR UPPE R GI SERIES HISTORY: [...] No evidence of gastric outlet obstruction. [facility] Interface, Rad In [employer] - 11/03/2018 [...] antrum. 4. Large amount of gastroesophageal reflux. [employer] Workstation ID: [id number] [facility] US Abdomen Completeon 2018 US Abdomen Complete Exam Date/Time: 09/17/2018 08:09 EDT Reason for Exam: ABD PAIN UNSPECIFIED LOCATION Report STUDY: US Abdomen Complete; 09/17/2018 8:09 am INDICATION: 58 y/o F with ABD PAIN UNSPECIFIED LOCATION. COMPARISON: None. ACCESSION NUMBER(S): [id number] ORDERING CLINICIAN: Antwan Maharaj TECHNIQUE: Routine ultrasound [...] by: Marysol Peña MD Technologist: HARIKA Normal [facility] Ferritinon 12-25-2017 Ferritin 5 ng/mL Low 13-150 [facility] Comment on above: Result Comment: Samp les from patients routinely receiving high dose biotin therapy(100-300 mg/day) may show falsely decreased results. Please correlateclinically. Performed By: #### C BCWOD, CMET, LIPID, HBA1C ####Unless otherwise noted, all testing performed by [address] [phone]: [id number] Director: David Mcclain M.D. Iron, Totalon 12-25-2017 Iron, Total 44 mcg/dL Low 50-170 [facility] Comment on above: Performed By: #### C BCWOD, CMET, LIPID, HBA1C ####Unless otherwise noted, all testing performed by [address] [phone]: [id number] Director: David Mcclain M.D. Vitamin B12on 12-25-2017 Cobalamins (Vitamin B12) 322 pg/mL Normal 193-986 [facility] Comment on above: Performed By: #### C BCWOD, CMET, LIPID, HBA1C ####Unless otherwise noted, all testing performed by [address] [phone]: [id number] Director: David Mcclain M.D. CBC with Diffon 12-23-2017 Basophils Auto #/vol (Bld) 0.0 K/mcL Normal 0-0.2 [facility] Comment on above: Performed By: #### C BCWOD, CMET, LIPID, HBA1C ####Unless otherwise noted, all testing performed by [place] [phone]: [id number] Director: David Mcclain M.D. Basophils/100 WBC Auto (Bld) 0.3 % Normal [facility] Comment on above: Performed By: #### C BCWOD, CMET, LIPID, HBA1C ####Unless otherwise noted, all testing performed by [place] [phone]: [id number] Director: David Mcclain M.D. Eosinophils 0.3 K/mcL Normal 0-0.5 [facility] Comment on above: Performed By: #### C BCWOD, CMET, LIPID, HBA1C ####Unless otherwise noted, all testing performed by [address] [phone]: [id number] Director: David Mcclain M.D. Eosinophils/100 leukocytes 4.3 % Normal [facility] Comment on above: Performed By: #### C BCWOD, CMET, LIPID, HBA1C ####Unless otherwise noted, all testing performed by [address] [phone]: [id number] Director: David Mcclain M.D. Erythrocyte distribution width Auto Ratio (RBC) 14.5 % High 10.0-14.4 [facility] Comment on above: Performed By: #### C BCWOD, CMET, LIPID, HBA1C ####Unless otherwise noted, all testing performed by [address] [phone]: [id number] Director: David Mcclain M.D. Erythrocytes (RBC) 3.87 M/mcL Normal 3.7-5.0 [facility] Comment on above: Performed By: #### C BCWOD, CMET, LIPID, HBA1C ####Unless otherwise noted, all testing performed by [address] [phone]: [id number] Director: David Mcclain M.D. Hematocrit (HCT) 33.5 % Low 34.4-44.8 [facility] Comment on above: Performed By: #### C BCWOD, CMET, LIPID, HBA1C ####Unless otherwise noted, all testing performed by [address] [phone]: [id number] Director: David Mcclain M.D. Hemoglobin mass conc (Bld) 10.9 g/dL Low 11.6-15.4 [facility] Comment on above: Performed By: #### C BCWOD, CMET, LIPID, HBA1C ####Unless otherwise noted, all testing performed by [address] [phone]: [id number] Director: David Mcclain M.D. Lymphocytes 2.4 K/mcL Normal 1.0-3.7 [facility] Comment on above: Performed By: #### C BCWOD, CMET, LIPID, HBA1C ####Unless otherwise noted, all testing performed by [address] [phone]: [id number] Director: David Mcclain M.D. Lymphocytes/100 leukocytes 35.0 % Normal [facility] Comment on above: Performed By: #### C BCWOD, CMET, LIPID, HBA1C ####Unless otherwise noted, all testing performed by [address] [phone]: [id number] Director: David Mcclain M.D. MCH 28.2 pg Normal 27.9-33.9 [facility] Comment on above: Performed By: #### C BCWOD, CMET, LIPID, HBA1C ####Unless otherwise noted, all testing performed by [address] [phone]: [id number] Director: David Mcclain M.D. MCHC mass conc (RBC) 32.6 g/dL Low 33.1-35.1 [facility] Comment on above: Performed By: #### C BCWOD, CMET, LIPID, HBA1C ####Unless otherwise noted, all testing performed by [address] [phone]: [id number] Director: David Mcclain M.D. MCV 86.4 fL Normal 82.6-98.9 [facility] Comment on above: Performed By: #### C BCWOD, CMET, LIPID, HBA1C ####Unless otherwise noted, all testing performed by [address] [phone]: [id number] Director: David Mcclain M.D. Monocytes 0.5 K/mcL Normal 0.1-0.6 [facility] Comment on above: Performed By: #### C BCWOD, CMET, LIPID, HBA1C ####Unless otherwise noted, all testing performed by [address]CLIA: [id number] Director: David Mcclain M.D. Monocytes/100 leukocytes 7.4 % Normal [facility] Comment on above: Performed By: #### C BCWOD, CMET, LIPID, HBA1C ####Unless otherwise noted, all testing performed by [address]8[address]CLIA: [id number] Director: David Mcclain M.D. Neutrophils 3.6 K/mcL Normal 1.2-6.9 [facility] Comment on above: Performed By: #### C BCWOD, CMET, LIPID, HBA1C ####Unless otherwise noted, all testing performed by [address]8[address]CLIA: [id number] Director: David Mcclain M.D. Platelet mean volume (PMV) 8.1 fL Normal 7.0-10.6 [facility] Comment on above: Performed By: #### C BCWOD, CMET, LIPID, HBA1C ####Unless otherwise noted, all testing performed by [address]IA: [id number] Director: David Mcclain M.D. Platelets 285 K/mcL Normal 162-402 [facility] Comment on above: Performed By: #### C BCWOD, CMET, LIPID, HBA1C ####Unless otherwise noted, all testing performed by [address] [phone]: [id number] Director: David Mcclain M.D. Segmented Neut % 53.0 % Normal [facility] Comment on above: Performed By: #### C BCWOD, CMET, LIPID, HBA1C ####Unless otherwise noted, all testing performed by [address] [phone]: [id number] Director: David Mcclain M.D. WBC (Leukocytes) 6.8 K/mcL Normal 3.4-10.6 [facility] Comment on above: Performed By: #### C BCWOD, CMET, LIPID, HBA1C ####Unless otherwise noted, all testing performed by [address] [phone]: [id number] Director: David Mcclain M.D. [facility] 12-23-2017 Alanine aminotransferase (ALT) 17 U/L Normal 14-65 [facility] Comment on above: Result Comment: This test result might be falsely depressed or falsely elevated onsamples drawn from patients taking Sulfasalazine and Sulfapyridine.Venipuncture should occur prior to taking either of these drugs. Performed By: #### C BCWOD, CMET, LIPID, HBA1C ####Unless otherwise noted, all testing performed by [address] [phone]: [id number] Director: David Mcclain M.D. Albumin 3.3 g/dL Normal 3.2-5.2 [facility] Comment on above: Performed By: #### C BCWOD, CMET, LIPID, HBA1C ####Unless otherwise noted, all testing performed by [address] [phone]: [id number] Director: David Mcclain M.D. Alkaline phosphatase (ALP) 35 U/L Low 40-150 [facility] Comment on above: Performed By: #### C BCWOD, CMET, LIPID, HBA1C ####Unless otherwise noted, all testing performed by [address] [phone]: [id number] Director: David Mcclain M.D. Aspartate aminotransferase (AST) 9 U/L Normal 0-45 [facility] Comment on above: Result Comment: This test result might be falsely depressed or falsely elevated onsamples drawn from patients taking Sulfasalazine and Sulfapyridine.Venipuncture should occur prior to taking either of these drugs. Performed By: #### C BCWOD, CMET, LIPID, HBA1C ####Unless otherwise noted, all testing performed by [address] [phone]: [id number] Director: David Mcclain M.D. Bilirubin (total) 0.2 mg/dL Low 0.3-1.2 [facility] Comment on above: Performed By: #### C BCWOD, CMET, LIPID, HBA1C ####Unless otherwise noted, all testing performed by [address] [phone]: [id number] Director: David Mcclain M.D. Calcium 8.9 mg/dL Normal 8.4-10.2 [facility] Comment on above: Performed By: #### C BCWOD, CMET, LIPID, HBA1C ####Unless otherwise noted, all testing performed by [address] [phone]: [id number] Director: David Mcclain M.D. Chloride 108 mmol/L Normal 98-108 [facility] Comment on above: Performed By: #### C BCWOD, CMET, LIPID, HBA1C ####Unless otherwise noted, all testing performed by [address] [phone]: [id number] Director: David Mcclain M.D. CO2 24 mmol/L Normal 21-32 [facility] Comment on above: Performed By: #### C BCWOD, CMET, LIPID, HBA1C ####Unless otherwise noted, all testing performed by [address] [phone]: [id number] Director: David Mcclain M.D. Creatinine 0.94 mg/dL Normal 0.40-1.10 [facility] Comment on above: Performed By: #### C BCWOD, CMET, LIPID, HBA1C ####Unless otherwise noted, all testing performed by [address] [phone]: [id number] Director: David Mcclain M.D. eGFR (black) mL/min/{1.73_m2} Normal [facility] Comment on above: Result Comment: Afri can Salvadorean GFR Calc Performed By: #### C BCWOD, CMET, LIPID, HBA1C ####Unless otherwise noted, all testing performed by [address] [phone]: [id number] Director: David Mcclain M.D. eGFR (non-black) mL/min/{1.73_m2} Normal [facility] Comment on above: Result Comment: Non- [...] ####Unless otherwise noted, all testing performed by [address] [phone]: [id number] Director: David Mcclain M.D. Glucose mass conc 122 mg/dL High 70-99 [facility] Comment on above: Result Comment: This test result might be falsely depressed or falsely elevated onsamples drawn from patients taking Sulfasalazine and Sulfapyridine.Venipuncture should occur prior to taking either of these drugs. Performed By: #### C BCWOD, CMET, LIPID, HBA1C ####Unless otherwise noted, all testing performed by [address] [phone]: [id number] Director: David Mcclain M.D. Potassium molar conc 3.9 mmol/L Normal 3.5-5.1 [facility] Comment on above: Performed By: #### C BCWOD, CMET, LIPID, HBA1C ####Unless otherwise noted, all testing performed by [address] [phone]: [id number] Director: David Mcclani M.D. Protein 6.2 g/dL Normal 6.0-8.0 [facility] Comment on above: Performed By: #### C BCWOD, CMET, LIPID, HBA1C ####Unless otherwise noted, all testing performed by [address] [phone]: [id number] Director: David Mcclain M.D. Sodium 143 mmol/L Normal 135-145 [facility] Comment on above: Performed By: #### C BCWOD, CMET, LIPID, HBA1C ####Unless otherwise noted, all testing performed by [address] [phone]: [id number] Director: David Mcclain M.D. Urea nitrogen 14 mg/dL Normal 8-25 [facility] Comment on above: Performed By: #### C BCWOD, CMET, LIPID, HBA1C ####Unless otherwise noted, all testing performed by [address] [phone]: [id number] Director: David Mcclain M.D. Hemoglobin A1Con 12-23-2017 Hemoglobin A1c/Hemoglobin.total mass fraction (Bld) 7.3 % High 4.1-6.5 [facility] Comment on above: Performed By: #### C BCWOD, CMET, LIPID, HBA1C ####Unless otherwise noted, all testing performed by [address] [phone]: [id number] Director: David Mcclain M.D. Lipid Panelon 12-23-2017 Cholesterol 113 mg/dL Normal 100-199 [facility] Comment on above: Performed By: #### C BCWOD, CMET, LIPID, HBA1C ####Unless otherwise noted, all testing performed by [address] [phone]: [id number] Director: David Mcclain M.D. Cholesterol in VLDL mass conc 29 mg/dL Normal 5-40 [facility] Comment on above: Performed By: #### C BCWOD, CMET, LIPID, HBA1C ####Unless otherwise noted, all testing performed by [address] [phone]: [id number] Director: David Mcclain M.D. Cholesterol to HDL Ratio 2.9 {ratio} Low 3.2-5.0 [facility] Comment on above: Result Comment: [place] Coronary Heart Disease Risk Factor (CHDRF):Average risk= 4.41/2 Average risk= 3.32 times Average risk= 7.1 Performed By: #### C BCWOD, CMET, LIPID, HBA1C ####Unless otherwise noted, all testing performed by [address] [phone]: [id number] Director: David Mcclain M.D. HDL Cholesterol 40 mg/dL Normal 40-59 [facility] Comment on above: Performed By: #### C BCWOD, CMET, LIPID, HBA1C ####Unless otherwise noted, all testing performed by [address] [phone]: [id number] Director: David Mcclain M.D. LDL Cholesterol 45 mg/dL Normal 10-150 [facility] Comment on above: Performed By: #### C BCWOD, CMET, LIPID, HBA1C ####Unless otherwise noted, all testing performed by [address] [phone]: [id number] Director: David Mcclain M.D. Triglyceride 143 mg/dL High 25-120 [facility] Comment on above: Performed By: #### C BCWOD, CMET, LIPID, HBA1C ####Unless otherwise noted, all testing performed by [address] [phone]: [id number] Director: David Mcclain M.D. TSHon 12-23-2017 Thyroid stimulating hormone (TSH) 5.67 uIU/mL High 0.320-5.000 [facility] Comment on above: Result Comment: Samp les from patients routinely receiving high dose biotin therapy(100-300 mg/day) may show falsely decreased results. Please correlateclinically. Performed By: #### C BCWOD, CMET, LIPID, HBA1C ####Unless otherwise noted, all testing performed by [address] [phone]: [id number] Director: David Mcclain M.D. Thyroxine (T4) free 1.0 ng/dL Normal 0.7-1.7 [facility] Comment on above: Result Comment: Samp les from patients routinely receiving high dose biotin therapy(100-300 mg/day) may show falsely increased results. Please correlateclinically. Performed By: #### C BCWOD, CMET, LIPID, HBA1C ####Unless otherwise noted, all testing performed by [address] [phone]: [id number] Director: David Mcclain M.D. Influenza A,B Rapid Molecula adolfo 07-26-2017 Influenza A Rapid Molecular Not Detected Normal Not Detected [facility] Comment on above: Performed By: #### C BCWOD, CMET, LIPID, HBA1C ####Unless otherwise noted, all testing performed by [address] [phone]: [id number] Director: David Mcclain M.D. Influenza B Rapid Molecular Not Detected Normal Not Detected [facility] Comment on above: Performed By: #### C BCWOD, CMET, LIPID, HBA1C ####Unless otherwise noted, all testing performed by [address]CLIA: [id number] Director: David Mcclain M.D. CBC with Diffon 04-17-2017 Basophils Auto #/vol (Bld) 0.0 K/mcL Normal 0-0.2 [facility] Comment on above: Performed By: #### C BCDIF, MG, TSH, CMET, LIPID, VITB12, HBA1C ####Unless otherwise noted, all testing performed by [address]8509CLIA: [id number] Director: David Mcclain M.D. Basophils/100 WBC Auto (Bld) 0.4 % Normal [facility] Comment on above: Performed By: #### C BCDIF, MG, TSH, CMET, LIPID, VITB12, HBA1C ####Unless otherwise noted, all testing performed by [address] [phone]: [id number] Director: David Mcclain M.D. Eosinophils 0.1 K/mcL Normal 0-0.5 [facility] Comment on above: Performed By: #### C BCDIF, MG, TSH, CMET, LIPID, VITB12, HBA1C ####Unless otherwise noted, all testing performed by [address] [phone]: [id number] Director: David Mcclain M.D. Eosinophils/100 leukocytes 1.9 % Normal [facility] Comment on above: Performed By: #### C BCDIF, MG, TSH, CMET, LIPID, VITB12, HBA1C ####Unless otherwise noted, all testing performed by [address] [phone]: [id number] Director: David Mcclain M.D. Erythrocyte distribution width Auto Ratio (RBC) 14.8 % High 10.0-14.4 [facility] Comment on above: Performed By: #### C BCDIF, MG, TSH, CMET, LIPID, VITB12, HBA1C ####Unless otherwise noted, all testing performed by [address] [phone]: [id number] Director: David Mcclain M.D. Erythrocytes (RBC) 4.82 M/mcL Normal 3.7-5.0 [facility] Comment on above: Performed By: #### C BCDIF, MG, TSH, CMET, LIPID, VITB12, HBA1C ####Unless otherwise noted, all testing performed by [address] [phone]: [id number] Director: David Mcclain M.D. Hematocrit (HCT) 42.9 % Normal 34.4-44.8 [facility] Comment on above: Performed By: #### C BCDIF, MG, TSH, CMET, LIPID, VITB12, HBA1C ####Unless otherwise noted, all testing performed by [address] [phone]: [id number] Director: David Mcclain M.D. Hemoglobin mass conc (Bld) 14.0 g/dL Normal 11.6-15.4 [facility] Comment on above: Performed By: #### C BCDIF, MG, TSH, CMET, LIPID, VITB12, HBA1C ####Unless otherwise noted, all testing performed by [address] [phone]: [id number] Director: David Mcclain M.D. Lymphocytes 1.4 K/mcL Normal 1.0-3.7 [facility] Comment on above: Performed By: #### C BCDIF, MG, TSH, CMET, LIPID, VITB12, HBA1C ####Unless otherwise noted, all testing performed by [address] [phone]: [id number] Director: David Mcclain M.D. Lymphocytes/100 leukocytes 23.0 % Normal [facility] Comment on above: Performed By: #### C BCDIF, MG, TSH, CMET, LIPID, VITB12, HBA1C ####Unless otherwise noted, all testing performed by [address] [phone]: [id number] Director: David Mcclain M.D. MCH 29.0 pg Normal 27.9-33.9 [facility] Comment on above: Performed By: #### C BCDIF, MG, TSH, CMET, LIPID, VITB12, HBA1C ####Unless otherwise noted, all testing performed by [address] [phone]: [id number] Director: David Mcclain M.D. [facility] mass conc (RBC) 32.6 g/dL Low 33.1-35.1 [facility] Comment on above: Performed By: #### C BCDIF, MG, TSH, CMET, LIPID, VITB12, HBA1C ####Unless otherwise noted, all testing performed by [address] [phone]: [id number] Director: David Mcclain M.D. MCV 88.9 fL Normal 82.6-98.9 [facility] Comment on above: Performed By: #### C BCDIF, MG, TSH, CMET, LIPID, VITB12, HBA1C ####Unless otherwise noted, all testing performed by [address] [phone]: [id number] Director: David Mcclain M.D. Monocytes 0.4 K/mcL Normal 0.1-0.6 [facility] Comment on above: Performed By: #### C BCDIF, MG, TSH, CMET, LIPID, VITB12, HBA1C ####Unless otherwise noted, all testing performed by [address] [phone]: [id number] Director: David Mcclain M.D. Monocytes/100 leukocytes 6.6 % Normal [facility] Comment on above: Performed By: #### C BCDIF, MG, TSH, CMET, LIPID, VITB12, HBA1C ####Unless otherwise noted, all testing performed by [address] [phone]: [id number] Director: David Mcclain M.D. Neutrophils 4.2 K/mcL Normal 1.2-6.9 [facility] Comment on above: Performed By: #### C BCDIF, MG, TSH, CMET, LIPID, VITB12, HBA1C ####Unless otherwise noted, all testing performed by [address] [phone]: [id number] Director: David Mcclain M.D. Platelet mean volume (PMV) 8.4 fL Normal 7.0-10.6 [facility] Comment on above: Performed By: #### C BCDIF, MG, TSH, CMET, LIPID, VITB12, HBA1C ####Unless otherwise noted, all testing performed by [address] [phone]: [id number] Director: David Mcclain M.D. Platelets 275 K/mcL Normal 162-402 [facility] Comment on above: Performed By: #### C BCDIF, MG, TSH, CMET, LIPID, VITB12, HBA1C ####Unless otherwise noted, all testing performed by [address] [phone]: [id number] Director: David Mcclain M.D. Segmented Neut % 68.1 % Normal [facility] Comment on above: Performed By: #### C BCDIF, MG, TSH, CMET, LIPID, VITB12, HBA1C ####Unless otherwise noted, all testing performed by [address] [phone]: [id number] Director: David Mcclain M.D. WBC (Leukocytes) 6.1 K/mcL Normal 3.4-10.6 [facility] Comment on above: Performed By: #### C BCDIF, MG, TSH, CMET, LIPID, VITB12, HBA1C ####Unless otherwise noted, all testing performed by [address] [phone]: [id number] Director: David Mcclain M.D. [facility] 04-17-2017 Alanine aminotransferase (ALT) 27 U/L Normal 14-65 [facility] Comment on above: Result Comment: This test result might be falsely depressed or falsely elevated onsamples drawn from patients taking Sulfasalazine and Sulfapyridine.Venipuncture should occur prior to taking either of these drugs. Performed By: #### C BCDIF, MG, TSH, CMET, LIPID, VITB12, HBA1C ####Unless otherwise noted, all testing performed by [address] [phone]: [id number] Director: David Mcclain M.D. Albumin 3.7 g/dL Normal 3.2-5.2 [facility] Comment on above: Performed By: #### C BCDIF, MG, TSH, CMET, LIPID, VITB12, HBA1C ####Unless otherwise noted, all testing performed by [address] [phone]: [id number] Director: David Mcclain M.D. Alkaline phosphatase (ALP) 56 U/L Normal 40-150 [facility] Comment on above: Performed By: #### C BCDIF, MG, TSH, CMET, LIPID, VITB12, HBA1C ####Unless otherwise noted, all testing performed by [address] [phone]: [id number] Director: David Mcclain M.D. Aspartate aminotransferase (AST) 10 U/L Normal 0-45 [facility] Comment on above: Result Comment: This test result might be falsely depressed or falsely elevated onsamples drawn from patients taking Sulfasalazine and Sulfapyridine.Venipuncture should occur prior to taking either of these drugs. Performed By: #### C BCDIF, MG, TSH, CMET, LIPID, VITB12, HBA1C ####Unless otherwise noted, all testing performed by [place] [phone]: [id number] Director: David Mcclain M.D. Bilirubin (total) 0.6 mg/dL Normal 0.3-1.2 [facility] Comment on above: Performed By: #### C BCDIF, MG, TSH, CMET, LIPID, VITB12, HBA1C ####Unless otherwise noted, all testing performed by [address] [phone]: [id number] Director: David Mcclain M.D. Calcium 9.7 mg/dL Normal 8.4-10.2 [facility] Comment on above: Performed By: #### C BCDIF, MG, TSH, CMET, LIPID, VITB12, HBA1C ####Unless otherwise noted, all testing performed by [address] [phone]: [id number] Director: David Mcclain M.D. Chloride 104 mmol/L Normal 98-108 [facility] Comment on above: Performed By: #### C BCDIF, MG, TSH, CMET, LIPID, VITB12, HBA1C ####Unless otherwise noted, all testing performed by [address] [phone]: [id number] Director: David Mcclain M.D. CO2 23 mmol/L Normal 21-32 [facility] Comment on above: Performed By: #### C BCDIF, MG, TSH, CMET, LIPID, VITB12, HBA1C ####Unless otherwise noted, all testing performed by [address] [phone]: [id number] Director: David Mcclain M.D. Creatinine 0.94 mg/dL Normal 0.40-1.10 [facility] Comment on above: Performed By: #### C BCDIF, MG, TSH, CMET, LIPID, VITB12, HBA1C ####Unless otherwise noted, all testing performed by [address] [phone]: [id number] Director: David Mcclain M.D. eGFR (black) mL/min/{1.73_m2} Normal [facility] Comment on above: Result Comment: Afri can Salvadorean GFR Calc Performed By: #### C BCDIF, MG, TSH, CMET, LIPID, VITB12, HBA1C ####Unless otherwise noted, all testing performed by [address] [phone]: [id number] Director: David Mcclain M.D. eGFR (non-black) mL/min/{1.73_m2} Normal [facility] Comment on above: Result Comment: Non- [...] ####Unless otherwise noted, all testing performed by [address] [phone]: [id number] Director: David Mcclain M.D. Glucose mass conc 128 mg/dL High 70-99 [facility] Comment on above: Result Comment: This test result might be falsely depressed or falsely elevated onsamples drawn from patients taking Sulfasalazine and Sulfapyridine.Venipuncture should occur prior to taking either of these drugs. Performed By: #### C BCDIF, MG, TSH, CMET, LIPID, VITB12, HBA1C ####Unless otherwise noted, all testing performed by [address] [phone]: [id number] Director: David Mcclain M.D. Potassium molar conc 3.5 mmol/L Normal 3.5-5.1 [facility] Comment on above: Performed By: #### C BCDIF, MG, TSH, CMET, LIPID, VITB12, HBA1C ####Unless otherwise noted, all testing performed by [address] [phone]: [id number] Director: David Mcclain M.D. Protein 7.8 g/dL Normal 6.0-8.0 [facility] Comment on above: Performed By: #### C BCDIF, MG, TSH, CMET, LIPID, VITB12, HBA1C ####Unless otherwise noted, all testing performed by [address] [phone]: [id number] Director: David Mcclain M.D. Sodium 141 mmol/L Normal 135-145 [facility] Comment on above: Performed By: #### C BCDIF, MG, TSH, CMET, LIPID, VITB12, HBA1C ####Unless otherwise noted, all testing performed by [address] [phone]: [id number] Director: David Mcclain M.D. Urea nitrogen 15 mg/dL Normal 8-25 [facility] Comment on above: Performed By: #### C BCDIF, MG, TSH, CMET, LIPID, VITB12, HBA1C ####Unless otherwise noted, all testing performed by [address] [phone]: [id number] Director: David Mcclain M.D. Hemoglobin A1Con 04-17-2017 Hemoglobin A1c/Hemoglobin.total mass fraction (Bld) 5.7 % Normal 4.1-6.5 [facility] Comment on above: Performed By: #### C BCWOD, CMET, LIPID, HBA1C ####Unless otherwise noted, all testing performed by [address] [phone]: [id number] Director: David Mcclain M.D. Lipid Panelon 04-17-2017 Cholesterol 135 mg/dL Normal 100-199 [facility] Comment on above: Performed By: #### C BCDIF, MG, TSH, CMET, LIPID, VITB12, HBA1C ####Unless otherwise noted, all testing performed by [address] [phone]: [id number] Director: David Mcclain M.D. Cholesterol in VLDL mass conc 27 mg/dL Normal 5-40 [facility] Comment on above: Performed By: #### C BCDIF, MG, TSH, CMET, LIPID, VITB12, HBA1C ####Unless otherwise noted, all testing performed by [address] [phone]: [id number] Director: David Mcclain M.D. Cholesterol to HDL Ratio 2.6 {ratio} Low 3.2-5.0 [facility] Comment on above: Result Comment: [place] Coronary Heart Disease Risk Factor (CHDRF):Average risk= 4.41/2 Average risk= 3.32 times Average risk= 7.1 Performed By: #### C BCDIF, MG, TSH, CMET, LIPID, VITB12, HBA1C ####Unless otherwise noted, all testing performed by [address] [phone]: [id number] Director: David Mcclain M.D. HDL Cholesterol 52 mg/dL Normal 40-59 [facility] Comment on above: Performed By: #### C BCDIF, MG, TSH, CMET, LIPID, VITB12, HBA1C ####Unless otherwise noted, all testing performed by [address] [phone]: [id number] Director: David Mcclain M.D. LDL Cholesterol 56 mg/dL Normal 10-150 [facility] Comment on above: Performed By: #### C BCDIF, MG, TSH, CMET, LIPID, VITB12, HBA1C ####Unless otherwise noted, all testing performed by [address] [phone]: [id number] Director: David Mcclain M.D. Triglyceride 134 mg/dL High 25-120 [facility] Comment on above: Performed By: #### C BCDIF, MG, TSH, CMET, LIPID, VITB12, HBA1C ####Unless otherwise noted, all testing performed by [place] [phone]: [id number] Director: David Mcclain M.D. Magnesiumon 04-17-2017 Magnesium 2.4 mg/dL Normal 1.6-2.4 [facility] Comment on above: Performed By: #### C BCDIF, MG, TSH, CMET, LIPID, VITB12, HBA1C ####Unless otherwise noted, all testing performed by [place] [phone]: [id number] Director: David Mcclain M.D. TSHon 04-17-2017 Thyroid stimulating hormone (TSH) 2.87 uIU/mL Normal 0.320-5.000 [facility] Comment on above: Result Comment: Samp les from patients routinely receiving high dose biotin therapy(100-300 mg/day) may show falsely decreased results. Please correlateclinically. Performed By: #### C BCDIF, MG, TSH, CMET, LIPID, VITB12, HBA1C ####Unless otherwise noted, all testing performed by [address] [phone]: [id number] Director: David Mcclain M.D. Vitamin B12on 04-17-2017 Cobalamins (Vitamin B12) 557 pg/mL Normal 193-986 [facility] Comment on above: Performed By: #### C BCDIF, MG, TSH, CMET, LIPID, VITB12, HBA1C ####Unless otherwise noted, all testing performed by [address] [phone]: [id number] Director: David Mcclain M.D. CBCon 04-09-2017 Erythrocyte distribution width Auto Ratio (RBC) 14.1 % Normal 10.0-14.4 [facility] Comment on above: Performed By: #### C BCWOD, CMET, LIPID, HBA1C ####Unless otherwise noted, all testing performed by [address] [phone]: [id number] Director: David Mcclain M.D. Erythrocytes (RBC) 4.31 M/mcL Invalid Interpretation Code 3.7 - 5.0 [facility] Hematocrit (HCT) 38.1 % Normal 34.4-44.8 [facility] Comment on above: Performed By: #### C BCWOD, CMET, LIPID, HBA1C ####Unless otherwise noted, all testing performed by [address] [phone]: [id number] Director: David Mcclain M.D. Hemoglobin mass conc (Bld) 12.6 g/dL Normal 11.6-15.4 [facility] Comment on above: Performed By: #### C BCWOD, CMET, LIPID, HBA1C ####Unless otherwise noted, all testing performed by [address] [phone]: [id number] Director: David Mcclain M.D. MCH 29.3 pg Normal 27.9-33.9 [facility] Comment on above: Performed By: #### C BCWOD, CMET, LIPID, HBA1C ####Unless otherwise noted, all testing performed by [address] [phone]: [id number] Director: David Mcclain M.D. MCHC mass conc (RBC) 33.1 g/dL Normal 33.1-35.1 [facility] Comment on above: Performed By: #### C BCWOD, CMET, LIPID, HBA1C ####Unless otherwise noted, all testing performed by [address] [phone]: [id number] Director: David Mcclain M.D. MCV 88.4 fL Normal 82.6-98.9 [facility] Comment on above: Performed By: #### C BCWOD, CMET, LIPID, HBA1C ####Unless otherwise noted, all testing performed by [address] [phone]: [id number] Director: David Mcclain M.D. Platelet mean volume (PMV) 8.4 fL Normal 7.0-10.6 [facility] Comment on above: Performed By: #### C BCWOD, CMET, LIPID, HBA1C ####Unless otherwise noted, all testing performed by [address] [phone]: [id number] Director: David Mcclain M.D. Platelets 256 K/mcL Invalid Interpretation Code 162 - 402 [facility] WBC (Leukocytes) 4.2 K/mcL Invalid Interpretation Code 3.4 - 10.6 [facility] CBC w/o Diffon 04-09-2017 Erythrocytes (RBC) 4.31 M/mcL Normal 3.7-5.0 [facility] Comment on above: Performed By: #### C BCWOD, CMET, LIPID, HBA1C ####Unless otherwise noted, all testing performed by [address] [phone]: [id number] Director: David Mcclain M.D. Platelets 256 K/mcL Normal 162-402 [facility] Comment on above: Performed By: #### C BCWOD, CMET, LIPID, HBA1C ####Unless otherwise noted, all testing performed by [address] [phone]: [id number] Director: David Mcclain M.D. WBC (Leukocytes) 4.2 K/mcL Normal 3.4-10.6 [facility] Comment on above: Performed By: #### C BCWOD, CMET, LIPID, HBA1C ####Unless otherwise noted, all testing performed by [address] [phone]: [id number] Director: David Mcclain M.D. Comprehensive Metabolic Pane [facility] 04-09-2017 Alanine aminotransferase (ALT) 28 U/L Normal 14-65 [facility] Comment on above: Cancelled on LAS [...] ####Unless otherwise noted, all testing performed by [address], [place] [phone]: [id number] Director: David Mcclain M.D. Albumin 3.0 g/dL Low 3.2-5.2 [facility] Comment on above: Cancelled on LAS :De lete Result Comment: Canc elled on LAS :Delete Performed By: #### C BCWOD, CMET, LIPID, HBA1C ####Unless otherwise noted, all testing performed by [address], [place] [phone]: [id number] Director: David Mcclain M.D. Alkaline phosphatase (ALP) 41 U/L Normal 40-150 [facility] Comment on above: Cancelled on LAS :De lete Result Comment: Canc elled on LAS :Delete Performed By: #### C BCWOD, CMET, LIPID, HBA1C ####Unless otherwise noted, all testing performed by [address], [place] [phone]: [id number] Director: David Mcclain M.D. Aspartate aminotransferase (AST) 16 U/L Normal 0-45 [facility] Comment on above: Cancelled on LAS [...] ####Unless otherwise noted, all testing performed by [address], [place] [phone]: [id number] Director: David Mcclain M.D. Bilirubin (total) 0.4 mg/dL Normal 0.3-1.2 [facility] Comment on above: Cancelled on LAS :De lete Result Comment: Canc elled on LAS :Delete Performed By: #### C BCWOD, CMET, LIPID, HBA1C ####Unless otherwise noted, all testing performed by [address] [phone]: [id number] Director: David Mcclain M.D. Calcium 8.7 mg/dL Normal 8.4-10.2 [facility] Comment on above: Cancelled on LAS :De lete Result Comment: Canc elled on LAS :Delete Performed By: #### C BCWOD, CMET, LIPID, HBA1C ####Unless otherwise noted, all testing performed by [address] [phone]: [id number] Director: David Mcclain M.D. Chloride 106 mmol/L Normal 98-108 [facility] Comment on above: Cancelled on LAS :De lete Result Comment: Canc elled on LAS :Delete Performed By: #### C BCWOD, CMET, LIPID, HBA1C ####Unless otherwise noted, all testing performed by [address] [phone]: [id number] Director: David Mcclain M.D. CO2 26 mmol/L Normal 21-32 [facility] Comment on above: Cancelled on LAS :De lete Result Comment: Canc elled on LAS :Delete Performed By: #### C BCWOD, CMET, LIPID, HBA1C ####Unless otherwise noted, all testing performed by [address] [address], [place] [phone]: [id number] Director: David Mcclain M.D. Creatinine 0.73 mg/dL Normal 0.40-1.10 [facility] Comment on above: Cancelled on LAS :De lete Result Comment: Canc elled on LAS :Delete Performed By: #### C BCWOD, CMET, LIPID, HBA1C ####Unless otherwise noted, all testing performed by [address] [phone]: [id number] Director: David Mcclain M.D. eGFR (black) mL/min/{1.73_m2} Normal [facility] Comment on above: GFR Calc Result Comment: Afri can Salvadorean GFR Calc Performed By: #### C BCWOD, CMET, LIPID, HBA1C ####Unless otherwise noted, all testing performed by [address] [phone]: [id number] Director: David Mcclain M.D. eGFR (non-black) mL/min/{1.73_m2} Normal [facility] Comment on above: Non- GFR Calc eGFR [...] ####Unless otherwise noted, all testing performed by [address] [phone]: [id number] Director: David Mcclain M.D. Glucose mass conc 93 mg/dL Normal 70-99 [facility] Comment on above: Cancelled on LAS [...] ####Unless otherwise noted, all testing performed by [address], [place] [phone]: [id number] Director: David Mcclain M.D. Potassium molar conc 3.9 mmol/L Normal 3.5-5.1 [facility] Comment on above: Cancelled on LAS :De lete Result Comment: Canc elled on LAS :Delete Performed By: #### C BCWOD, CMET, LIPID, HBA1C ####Unless otherwise noted, all testing performed by [address], [place] [phone]: [id number] Director: David Mcclain M.D. Protein 6.4 g/dL Normal 6.0-8.0 [facility] Comment on above: Cancelled on LAS :De lete Result Comment: Canc elled on LAS :Delete Performed By: #### C BCWOD, CMET, LIPID, HBA1C ####Unless otherwise noted, all testing performed by [address] [phone]: [id number] Director: David Mcclain M.D. Sodium 140 mmol/L Normal 135-145 [facility] Comment on above: Cancelled on LAS :De lete Result Comment: Canc elled on LAS :Delete Performed By: #### C BCWOD, CMET, LIPID, HBA1C ####Unless otherwise noted, all testing performed by [address] [phone]: [id number] Director: David Mcclain M.D. Urea nitrogen 9 mg/dL Normal 8-25 [facility] Comment on above: Cancelled on LAS :De lete Result Comment: Canc elled on LAS :Delete Performed By: #### C BCWOD, CMET, LIPID, HBA1C ####Unless otherwise noted, all testing performed by [address] [phone]: [id number] Director: David Mcclain M.D. Hemoglobin A1con 04-09-2017 Hemoglobin A1c/Hemoglobin.total mass fraction (Bld) 5.6 % Normal 4.1-6.5 [facility] Comment on above: Performed By: #### C BCWOD, CMET, LIPID, HBA1C ####Unless otherwise noted, all testing performed by [address] [phone]: [id number] Director: David Mcclain M.D. Lipid Panelon 04-09-2017 Cholesterol 104 mg/dL Normal 100-199 [facility] Comment on above: Cancelled on LAS :De lete Result Comment: Canc elled on LAS :Delete Performed By: #### C BCWOD, CMET, LIPID, HBA1C ####Unless otherwise noted, all testing performed by [address] [phone]: [id number] Director: David Mcclain M.D. Cholesterol in VLDL mass conc 32 mg/dL Normal 5-40 [facility] Comment on above: Performed By: #### C BCWOD, CMET, LIPID, HBA1C ####Unless otherwise noted, all testing performed by [address] [phone]: [id number] Director: David Mcclain M.D. Cholesterol to HDL Ratio 2.5 {ratio} Low 3.2-5.0 [facility] Comment on above: Female Coronary Hear t Disease Risk Factor (CHDRF): Average risk= 4.4 1/2 Average risk= 3.3 2 times Average risk= 7.1 Result Comment: Fema le Coronary Heart Disease Risk Factor (CHDRF):Average risk= 4.41/2 Average risk= 3.32 times Average risk= 7.1 Performed By: #### C BCWOD, CMET, LIPID, HBA1C ####Unless otherwise noted, all testing performed by [address] [phone]: [id number] Director: David Mcclain M.D. HDL Cholesterol 41 mg/dL Normal 40-59 [facility] Comment on above: Cancelled on LAS :De lete Result Comment: Canc elled on LAS :Delete Performed By: #### C BCWOD, CMET, LIPID, HBA1C ####Unless otherwise noted, all testing performed by [address] [phone]: [id number] Director: David Mcclain M.D. Interpretation and review of laboratory results Abnormal Invalid Interpretation Code [facility] LDL Cholesterol 31 mg/dL Normal 10-150 [facility] Comment on above: Performed By: #### C BCWOD, CMET, LIPID, HBA1C ####Unless otherwise noted, all testing performed by [address] [phone]: [id number] Director: David Mcclain M.D. Triglyceride 159 mg/dL High 25-120 [facility] Comment on above: Cancelled on LAS :De lete Result Comment: Canc elled on LAS :Delete Performed By: #### C BCWOD, CMET, LIPID, HBA1C ####Unless otherwise noted, all testing performed by [address] [phone]: [id number] Director: David Mcclain M.D. Emergency Department Summary on 01-16-2017 [facility] [address] [place], [place] [address]Fviyfwfxc Department Scqtrvd31/07/17 1708#: [id number] Acct: [id number]: SHAJI ESQUIVEL Rep #: [id number]: 1960 56 [...] weight loss. [facility] He is unsure [...] condition.Impression: 1. Dysphagia.This note was generated with [employer] dictation software. It may contain incorrect words,spelling, [...] your Primary Care Provider. Call [facility] ([phone])or report to the closest Emergency Room.Call 911 if necessary.01/16/17 0831 Date Alli Monae [facility] DURANTosigner Signature (If Indicated): Date CC: Antwan Watters Normal [facility] Esophagus Onlyon 01-14-2017 [facility] [id number] AJAY SAXENA [id number] OnlyMR#: [id number] Acct: [id number]: SHAJI ESQUIVEL Rep #: [id number]: 1960 F 56 From: Santo Mendieta MDPCP: Antwan Watters Status: REG CLIStudy: Esophagus Only Date of Exam: 01/14/17Exam# [id number] Ordering Dr: Alli Monae MDSTUDY: X-RAY - [...] structures of the thorax. ORDE R #: [id number] RAD/Esophagus OnlyIMPRESSION:Normal plain film x-ray examination (barium swallow) of the esophagus.Electronicall y Signed:Santo Mendieta MD at 15:33 EDTTel [id number], Service support , [place]: Antwan Watters; Alli Monae MD Gopherman:Signed Normal [facility] Basic Metabolic Profile (BMP )on 01-13-2017 BUN (urea nitrogen) 12.9 RATIO Normal 10-20 [facility] Comment on above: Performed By: #### L 500.2500 ####[facility] [address] [place], [address] Calcium 9.0 mg/dL Normal 8.5-10.1 [facility] Comment on above: Performed By: #### L 500.2500 ####[facility] [address] [place], [address] Chloride 101 mmol/L Normal 98-107 [facility] Comment on above: Performed By: #### L 500.2500 ####[facility] [address] [place], [address] CO2 31.0 mmol/L Normal 21.0-32.0 [facility] Comment on above: Performed By: #### L 500.2500 ####[facility] [address] [place], [address] Creatinine 0.70 mg/dL Normal 0.55-1.02 [facility] Comment on above: Result Comment: The validity of the calculated GFR AND GFRAA in patients over70 years has not been determined. Clinical correlation isessential. Performed By: #### L 500.2500 ####[facility] [address] [place], [address] eGFR (non-black) 111 mL/min/{1.73_m2} Normal >60 [facility] Comment on above: Result Comment: Afri can Salvadorean GFR Calc Performed By: #### L 500.2500 ####[facility] [address] [place], [address] eGFR (non-black) 92 mL/min/{1.73_m2} Normal >60 [facility] Comment on above: Result Comment: Non- GFR Calc Performed By: #### L 500.2500 ####[facility] [address] [place], [address] Estimated CRCL 74.23 ml/min Normal [facility] Comment on above: Performed By: #### L 500.2500 ####[facility] [address] [place], [address] GAP 9 Normal 5-15 [facility] Comment on above: Performed By: #### L 500.2500 ####[facility] [address] [place], [address] Glucose mass conc 137 mg/dL High 70-110 [facility] Comment on above: Result Comment: Fast ing Glucose result greater than or equal to 126 mg/dLsuggests DIABETES MELLITUS per A.D.A. criteria. Performed By: #### L 500.2500 ####[facility] [address] [place], [address] Potassium molar conc 3.8 mmol/L Normal 3.5-5.1 [facility] Comment on above: Performed By: #### L 500.2500 ####[facility] [address] [place], [address] Sodium 141 mmol/L Normal 136-145 [facility] Comment on above: Performed By: #### L 500.2500 ####[facility] [address] [place], [address] Urea nitrogen 9 mg/dL Normal 7-18 [facility] Comment on above: Performed By: #### L 500.2500 ####[facility] [address] [place], [address] CBC W/Diff, Automatedon 08-0 -2016 Absolute Neut 3.8 X10 3/uL Normal 2.0-7.7 [facility] Comment on above: Performed By: #### L 100.0100 ####[facility] [address] [place], [address] Basophils/100 WBC Auto (Bld) 0.0 % Normal 0-1 [facility] Comment on above: Performed By: #### L 100.0100 ####[facility] [address] [place], [address] Eosinophils/100 leukocytes 0.7 % Normal 0-5 [facility] Comment on above: Performed By: #### L 100.0100 ####[facility] [address] [place], [address] Erythrocyte distribution width Auto Ratio (RBC) 13.5 % Normal 11.6-14.6 [facility] Comment on above: Performed By: #### L 100.0100 ####[facility] [address] [place], [address] Erythrocytes (RBC) 4.41 M/mm3 Normal 4.2-5.4 [facility] Comment on above: Performed By: #### L 100.0100 ####[facility] [address] [place], [address] Hematocrit (HCT) 40.1 % Normal 37-47 [facility] Comment on above: Performed By: #### L 100.0100 ####[facility] [address] [place], [address] Hemoglobin mass conc (Bld) 12.4 g/dL Normal 12.0-15.0 [facility] Comment on above: Performed By: #### L 100.0100 ####[facility] [address] [place], [address] IM GRAN % 0.200 % Normal 0.0-0.9 [facility] Comment on above: Result Comment: IG% - Immature Granulocytes (promyelocytes, myelocytes andmetamyelocytes) > 1% indicates that a LEFT SHIFT is Present. Performed By: #### L 100.0100 ####[facility] [address] [place], [address] Lymphocytes 1.55 X10 3/ul Normal 0.83-4.51 [facility] Comment on above: Performed By: #### L 100.0100 ####[facility] [address] [place], [address] Lymphocytes/100 leukocytes 26.3 % Normal 19-41 [facility] Comment on above: Performed By: #### L 100.0100 ####[facility] [address] [place], [address] MCH 28.1 pg Normal 27.0-32.0 [facility] Comment on above: Performed By: #### L 100.0100 ####[facility] [address] [place], [address] MCHC mass conc (RBC) 30.9 g/gl Low 32-36 [facility] Comment on above: Performed By: #### L 100.0100 ####[facility] [address] [place], [address] MCV 90.9 fL Normal 81-99 [facility] Comment on above: Performed By: #### L 100.0100 ####[facility] [address] [place], [address] Monocytes/100 leukocytes 7.6 % Normal 0-10 [facility] Comment on above: Performed By: #### L 100.0100 ####[facility] [address] [place], [address] Neutrophils/100 WBC Auto (Bld) 65.2 % Normal 47-70 [facility] Comment on above: Performed By: #### L 100.0100 ####[facility] [address] [place], [address] Platelet mean volume (PMV) 9.7 fL Normal 6.2-12.0 [facility] Comment on above: Performed By: #### L 100.0100 ####[facility] [address] [place], [address] Platelets 274 10*3/uL Normal 150-450 [facility] Comment on above: Performed By: #### L 100.0100 ####[facility] [address] [place], [address] RDW SD 44.5 fl High 35.1-43.9 [facility] Comment on above: Performed By: #### L 100.0100 ####[facility] [address] [place], [address] WBC (Leukocytes) 5.9 10*3/uL Normal 4.4-11.0 [facility] Comment on above: Performed By: #### L 100.0100 ####[facility] [address] [place], [address] Vital Signs Date Time Vital Sign Value Performing Clinician [facility] 11-11-2024 11:01-0400 Body height 160 cm Marcos Barrera MD Work Phone: [facility] 11-11-2024 11:01-0400 Diastolic blood pressure 83 mm[Hg] Marcos Barrera MD Work Phone: [facility] 11-11-2024 11:01-0400 Heart rate 99 /min Marcos Barrera MD Work Phone: [facility] 11-11-2024 11:01-0400 Systolic blood pressure 136 mm[Hg] Marcos Barrera MD Work Phone: [facility] 10-25-2024 11:07-0400 Diastolic blood pressure 82 mm[Hg] Elizabeth Ringle DPM Work Phone: [facility] 10-25-2024 11:07-0400 Heart rate 73 /min Elizabeth Erendira DPM Work Phone: [facility] 10-25-2024 11:07-0400 Systolic blood pressure 134 mm[Hg] Elizabeth Erendira DPM Work Phone: [facility] 10-25-2024 11:01-0400 Body temperature 98.29 [degF] Elizabeth Kimble DPM Work Phone: [facility] 09-21-2024 10:37-0400 Body height 160 cm Zara Cristina DO Work Phone: [facility] 09-21-2024 10:37-0400 Body mass index (BMI) [Ratio] 29.35 kg/m2 Zara Cristina DO Work Phone: [facility] 09-21-2024 10:37-0400 Body temperature 98.01 [degF] Zara Cristina DO Work Phone: [facility] 09-21-2024 10:37-0400 Body weight 75.16 kg Zara Cristina DO Work Phone: [facility] 09-21-2024 10:37-0400 Diastolic blood pressure 85 mm[Hg] Zara Cristina DO Work Phone: [facility] 09-21-2024 10:37-0400 Heart rate 79 /min Zara Cristina DO Work Phone: [facility] 09-21-2024 10:37-0400 Respiratory rate 18 /min Zara Cristina DO Work Phone: [facility] 09-21-2024 10:37-0400 SaO2% (BldA) [Mass fraction] 92 % Zara Cristina DO Work Phone: [facility] 09-21-2024 10:37-0400 Systolic blood pressure 132 mm[Hg] Zara Cristina DO Work Phone: [facility] 09-09-2024 14:10-0400 Body height 160 cm Marcos Barrera MD Work Phone: [facility] 09-09-2024 14:10-0400 Body mass index (BMI) [Ratio] 28.87 kg/m2 Marcos Barrera MD Work Phone: [facility] 09-09-2024 14:10-0400 Body weight 73.94 kg Marcos Barrera MD Work Phone: [facility] 09-09-2024 14:10-0400 Diastolic blood pressure 71 mm[Hg] Marcos Barrera MD Work Phone: [facility] 09-09-2024 14:10-0400 Heart rate 60 /min Marcos Barrera MD Work Phone: [facility] 09-09-2024 14:10-0400 Systolic blood pressure 105 mm[Hg] Marcos Barrera MD Work Phone: [facility] 07-29-2024 11:30-0500 Body height 160 cm Zara Cristina DO Work Phone: [facility] 07-29-2024 11:30-0500 Body mass index (BMI) [Ratio] 28.34 kg/m2 Zara Cristina DO Work Phone: [facility] 07-29-2024 11:30-0500 Body temperature 98.29 [degF] Zara Cristina DO Work Phone: [facility] 07-29-2024 11:30-0500 Body weight 72.58 kg Zara Cristina DO Work Phone: [facility] 07-29-2024 11:30-0500 Diastolic blood pressure 76 mm[Hg] Zara Cristina DO Work Phone: [facility] 07-29-2024 11:30-0500 Heart rate 83 /min Zara Cristina DO Work Phone: [facility] 07-29-2024 11:30-0500 Respiratory rate 17 /min Zara Cirstina DO Work Phone: [facility] 07-29-2024 11:30-0500 SaO2% (BldA) [Mass fraction] 94 % Zara Cristina DO Work Phone: [facility] 07-29-2024 11:30-0500 Systolic blood pressure 135 mm[Hg] Zara Cristina DO Work Phone: [facility] 07-27-2024 09:57-0500 Body temperature 98.4 [degF] Elizabethamy Kimble DPM Work Phone: [facility] 07-27-2024 09:57-0500 Diastolic blood pressure 78 mm[Hg] Elizabeth Ringle DPM Work Phone: [facility] 07-27-2024 09:57-0500 Heart rate 86 /min Elizabeth Erendira DPM Work Phone: [facility] 07-27-2024 09:57-0500 Systolic blood pressure 133 mm[Hg] Elizabeth Erendira DPM Work Phone: [facility] 07-13-2024 09:53-0500 Diastolic blood pressure 83 mm[Hg] Zara Cristina DO Work Phone: [facility] 07-13-2024 09:53-0500 Systolic blood pressure 136 mm[Hg] Zara Cristina DO Work Phone: [facility] 07-13-2024 09:17-0500 Body height 160 cm Zara Cristina DO Work Phone: [facility] 07-13-2024 09:17-0500 Body mass index (BMI) [Ratio] 28.34 kg/m2 Zara Cristina DO Work Phone: [facility] 07-13-2024 09:17-0500 Body temperature 98.1 [degF] Zara Cristina DO Work Phone: [facility] 07-13-2024 09:17-0500 Body weight 72.58 kg Zara Cristina DO Work Phone: [facility] 07-13-2024 09:17-0500 Heart rate 81 /min Zara Cristina DO Work Phone: [facility] 07-13-2024 09:17-0500 Respiratory rate 17 /min Zara Cristina DO Work Phone: [facility] 07-13-2024 09:17-0500 SaO2% (BldA) [Mass fraction] 90 % Zara Cristina DO Work Phone: [facility] 07-09-2024 12:08-0500 Diastolic blood pressure 86 mm[Hg] Miles Ying DO Work Phone: [facility] 07-09-2024 12:08-0500 Heart rate 84 /min Miles Mcnairune DO Work Phone: [facility] 07-09-2024 12:08-0500 Respiratory rate 17 /min Miles Mcnairune DO Work Phone: [facility] 07-09-2024 12:08-0500 SaO2% (BldA) [Mass fraction] 97 % Miles Mcnairune DO Work Phone: [facility] 07-09-2024 12:08-0500 Systolic blood pressure 156 mm[Hg] Miles Ying DO Work Phone: [facility] 07-09-2024 11:00-0500 Body temperature 98.49 [degF] Miles Mcnairune DO Work Phone: [facility] 06-28-2024 12:46-0500 Body height 167.6 cm Rafa Oberhauser DO Work Phone: [facility] 06-28-2024 12:46-0500 Body mass index (BMI) [Ratio] 25.82 kg/m2 Rafa Oberhauser DO Work Phone: [facility] 06-28-2024 12:46-0500 Body weight 72.58 kg Rafa Oberhauser DO Work Phone: [facility] 06-28-2024 12:46-0500 Diastolic blood pressure 71 mm[Hg] Rfaa Oberhauser DO Work Phone: [facility] 06-28-2024 12:46-0500 Heart rate 93 /min Rafa Oberhauser DO Work Phone: [facility] 06-28-2024 12:46-0500 Systolic blood pressure 129 mm[Hg] Rafa Oberhauser DO Work Phone: [facility] 06-23-2024 14:00-0500 Diastolic blood pressure 83 mm[Hg] Zara Cristina DO Work Phone: [facility] 06-23-2024 14:00-0500 Systolic blood pressure 134 mm[Hg] Zara Cristina DO Work Phone: [facility] 06-23-2024 13:02-0500 Body height 160 cm Zara Cristina DO Work Phone: [facility] 06-23-2024 13:02-0500 Body mass index (BMI) [Ratio] 28.34 kg/m2 Zara Cristina DO Work Phone: [facility] 06-23-2024 13:02-0500 Body temperature 98.6 [degF] Zaar Cristina DO Work Phone: [facility] 06-23-2024 13:02-0500 Body weight 72.58 kg Zara Cristina DO Work Phone: [facility] 06-23-2024 13:02-0500 Heart rate 92 /min Zara Cristina DO Work Phone: [facility] 06-23-2024 13:02-0500 Respiratory rate 16 /min Zara Cristina DO Work Phone: [facility] 06-23-2024 13:02-0500 SaO2% (BldA) [Mass fraction] 91 % Zara Cristina DO Work Phone: [facility] 04-27-2024 10:09-0500 Body temperature 98.2 [degF] Elizabeth Erendira DPM Work Phone: [facility] 04-27-2024 10:09-0500 Diastolic blood pressure 85 mm[Hg] Elizabeth Ringle DPM Work Phone: [facility] 04-27-2024 10:09-0500 Heart rate 86 /min Elizabeth Erendira DPM Work Phone: [facility] 04-27-2024 10:09-0500 Systolic blood pressure 130 mm[Hg] Elizabeth Ringle DPM Work Phone: [facility] 03-29-2024 12:42-0400 Body height 167.6 cm Rafa Oberhauser DO Work Phone: [facility] 03-29-2024 12:42-0400 Diastolic blood pressure 80 mm[Hg] Rafa Oberhauser DO Work Phone: [facility] 03-29-2024 12:42-0400 Heart rate 89 /min Rafa Oberhauser DO Work Phone: [facility] 03-29-2024 12:42-0400 Systolic blood pressure 128 mm[Hg] Rafa Oberhauser DO Work Phone: [facility] 02-05-2024 10:28-0400 Body height 167.6 cm Tracy Babak 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 Work Phone: [facility] 02-05-2024 10:28-0400 Body mass index (BMI) [Ratio] 25.82 kg/m2 Tracy Babak 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 Work Phone: [phone] [place] [address] 02-05-2024 10:28-0400 Body weight 72.58 kg Tracy Babak 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 Work Phone: [phone] [place] [address] 02-05-2024 10:28-0400 Diastolic blood pressure 85 mm[Hg] Tracy Babak 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 Work Phone: [facility] 02-05-2024 10:28-0400 Heart rate 83 /min Tracy Babak 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 Work Phone: [facility] 02-05-2024 10:28-0400 Systolic blood pressure 137 mm[Hg] Tracy Babak 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 Work Phone: [facility] 02-03-2024 10:46-0400 Body height 165.1 cm Sachin Morales MD Work Phone: [facility] 02-03-2024 10:46-0400 Body mass index (BMI) [Ratio] 25.63 kg/m2 Sachin Morales MD Work Phone: [facility] 02-03-2024 10:46-0400 Body weight 69.85 kg Sachin Morales MD Work Phone: [facility] 01-29-2024 09:55-0400 Diastolic blood pressure 67 mm[Hg] Darin Trujillo MD Work Phone: [facility] 01-29-2024 09:55-0400 Heart rate 83 /min Darin Trujillo MD Work Phone: [facility] 01-29-2024 09:55-0400 Respiratory rate 18 /min Darin Trujillo MD Work Phone: [facility] 01-29-2024 09:55-0400 SaO2% (BldA) [Mass fraction] 96 % Darin Trujillo MD Work Phone: [facility] 01-29-2024 09:55-0400 Systolic blood pressure 123 mm[Hg] Darin Trujillo MD Work Phone: [facility] 01-29-2024 06:56-0400 Body height 167.6 cm Darin Trujillo MD Work Phone: [facility] 01-29-2024 06:56-0400 Body mass index (BMI) [Ratio] 24.61 kg/m2 Darin Trujillo MD Work Phone: [facility] 01-29-2024 06:56-0400 Body temperature 97 [degF] Darin Trujillo MD Work Phone: [facility] 01-29-2024 06:56-0400 Body weight 69.17 kg Darin Trujillo MD Work Phone: [facility] 01-26-2024 14:02-0400 Diastolic blood pressure 83 mm[Hg] Elizabeth Erendira DPM Work Phone: [facility] 01-26-2024 14:02-0400 Heart rate 92 /min Elizabeth Ringle DPM Work Phone: [facility] 01-26-2024 14:02-0400 Systolic blood pressure 144 mm[Hg] Elizabeth Erendira DPM Work Phone: [facility] 01-26-2024 13:49-0400 Body temperature 98.4 [degF] Elizabeth Erendira DPM Work Phone: [facility] 01-21-2024 10:36-0400 Diastolic blood pressure 77 mm[Hg] Huy Vasquez PA-C Work Phone: [facility] 01-21-2024 10:36-0400 Heart rate 95 /min Huy Vasquez PA-C Work Phone: [facility] 01-21-2024 10:36-0400 SaO2% (BldA) [Mass fraction] 96 % Huy Vasquez PA-C Work Phone: [facility] 01-21-2024 10:36-0400 Systolic blood pressure 159 mm[Hg] Huy Vasquez PA-C Work Phone: [facility] 01-08-2024 09:26-0400 Diastolic blood pressure 85 mm[Hg] Mina Ortiz MD Work Phone: [facility] 01-08-2024 09:26-0400 Heart rate 100 /min Mina Ortiz MD Work Phone: [facility] 01-08-2024 09:26-0400 Respiratory rate 16 /min Mina Ortiz MD Work Phone: [facility] 01-08-2024 09:26-0400 SaO2% (BldA) [Mass fraction] 92 % Mina Ortiz MD Work Phone: [facility] 01-08-2024 09:26-0400 Systolic blood pressure 147 mm[Hg] Mina Ortiz MD Work Phone: [facility] 12-29-2023 16:43-0400 Body height 157.5 cm Rafa Jacinto DO Work Phone: [facility] 12-29-2023 16:43-0400 Body mass index (BMI) [Ratio] 28.53 kg/m2 Rafa Vicker DO Work Phone: [facility] 12-29-2023 16:43-0400 Body weight 70.76 kg Rafa Oberhauser DO Work Phone: [facility] 12-29-2023 16:43-0400 Diastolic blood pressure 82 mm[Hg] Rafa Oberhauser DO Work Phone: [facility] 12-29-2023 16:43-0400 Heart rate 101 /min Rafa Oberhauser DO Work Phone: [facility] 12-29-2023 16:43-0400 Systolic blood pressure 139 mm[Hg] Rafa Oberhauser DO Work Phone: [facility] 12-24-2023 09:35-0400 Body height 165.1 cm Sachin Morales MD Work Phone: [facility] 12-17-2023 08:04-0400 Body height 157.5 cm Tracy Babak 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 Work Phone: [facility] 12-17-2023 08:04-0400 Body mass index (BMI) [Ratio] 28.17 kg/m2 Tracy Babak 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 Work Phone: [facility] 12-17-2023 08:04-0400 Body weight 69.85 kg Tracy Babak 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 Work Phone: [facility] 12-17-2023 08:04-0400 Diastolic blood pressure 78 mm[Hg] Tracy Babak 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 Work Phone: [facility] 12-17-2023 08:04-0400 Heart rate 72 /min Tracy Babak 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 Work Phone: [facility] 12-17-2023 08:04-0400 Systolic blood pressure 144 mm[Hg] Tracy Babak 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 Work Phone: [facility] 12-16-2023 13:56-0400 Body height 165.1 cm Priscilla Mackey [employer] SPECIALIST Work Phone: [facility] 12-16-2023 13:56-0400 Body mass index (BMI) [Ratio] 25.63 kg/m2 Priscilla Mackey [employer]IST Work Phone: [facility] 12-16-2023 13:56-0400 Body weight 69.85 kg Priscilla Mackey [employer]IST Work Phone: [facility] 12-16-2023 13:56-0400 Diastolic blood pressure 81 mm[Hg] Priscilla Mackey [employer]IST Work Phone: [facility] 12-16-2023 13:56-0400 Heart rate 90 /min Priscilla Mackey [employer]IST Work Phone: [facility] 12-16-2023 13:56-0400 SaO2% (BldA) [Mass fraction] 96 % Priscilla Mackey [employer]IST Work Phone: [facility] 12-16-2023 13:56-0400 Systolic blood pressure 135 mm[Hg] Priscilla Mackey [employer]IST Work Phone: [facility] 12-04-2023 11:46-0400 Diastolic blood pressure 63 mm[Hg] Jasmyn Luisersen DO Work Phone: [facility] 12-04-2023 11:46-0400 Heart rate 97 /min Jasmyn Wade DO Work Phone: [facility] 12-04-2023 11:46-0400 Respiratory rate 16 /min Jasmyn Wade DO Work Phone: [facility] 12-04-2023 11:46-0400 SaO2% (BldA) [Mass fraction] 96 % Jasmyn Wade DO Work Phone: [facility] 12-04-2023 11:46-0400 Systolic blood pressure 177 mm[Hg] Jasmyn Luisersen DO Work Phone: [facility] 12-04-2023 11:15-0400 Body temperature 96.8 [degF] Jasmyn Wade DO Work Phone: [facility] 12-04-2023 09:04-0400 Body height 157.5 cm Jasmyn Wade DO Work Phone: [facility] 12-04-2023 09:04-0400 Body mass index (BMI) [Ratio] 25.97 kg/m2 Jasmyn Wade DO Work Phone: [facility] 12-04-2023 09:04-0400 Body weight 64.41 kg Jasmyn Wade DO Work Phone: [facility] 10-14-2023 08:15-0400 Body temperature 97 [degF] Elizabeth Erendira DPM Work Phone: [facility] 10-14-2023 08:15-0400 Diastolic blood pressure 83 mm[Hg] Elizabeth Ringle DPM Work Phone: [facility] 10-14-2023 08:15-0400 Heart rate 96 /min Elizabeth Ringle DPM Work Phone: [facility] 10-14-2023 08:15-0400 Systolic blood pressure 159 mm[Hg] Elizabeth Ringle DPM Work Phone: [facility] 07-15-2023 08:42-0500 Body temperature 97.9 [degF] Elizabeth Ringle DPM Work Phone: [facility] 07-15-2023 08:42-0500 Diastolic blood pressure 80 mm[Hg] Elizabeth Ringle DPM Work Phone: [facility] 07-15-2023 08:42-0500 Heart rate 89 /min Elizabeth Erendira DPM Work Phone: [facility] 07-15-2023 08:42-0500 Systolic blood pressure 136 mm[Hg] Elizabeth Erendira DPM Work Phone: [facility] 06-23-2023 10:52-0500 Diastolic blood pressure 88 mm[Hg] Mina Ortiz MD Work Phone: [facility] 06-23-2023 10:52-0500 Heart rate 83 /min Mina Ortiz MD Work Phone: [facility] 06-23-2023 10:52-0500 SaO2% (BldA) [Mass fraction] 97 % Mina Ortiz MD Work Phone: [facility] 06-23-2023 10:52-0500 Systolic blood pressure 122 mm[Hg] Mina Ortiz MD Work Phone: [facility] 04-21-2023 13:09-0500 Body height 157.5 cm Rafa Oberhauser DO Work Phone: [facility] 04-21-2023 13:09-0500 Body mass index (BMI) [Ratio] 24.14 kg/m2 Rafa Oberhauser DO Work Phone: [facility] 04-21-2023 13:09-0500 Body weight 59.88 kg Rafa Oberhauser DO Work Phone: [facility] 04-21-2023 13:09-0500 Diastolic blood pressure 78 mm[Hg] Rafa Oberhauser DO Work Phone: [facility] 04-21-2023 13:09-0500 Heart rate 95 /min Rafa Oberhauser DO Work Phone: [facility] 04-21-2023 13:09-0500 Systolic blood pressure 127 mm[Hg] Rafa Oberhauser DO Work Phone: [facility] 12-19-2022 11:38-0400 Diastolic blood pressure 76 mm[Hg] Mina Ortiz MD Work Phone: [facility] 12-19-2022 11:38-0400 Heart rate 79 /min Mina Ortiz MD Work Phone: [facility] 12-19-2022 11:38-0400 SaO2% (BldA) [Mass fraction] 91 % Mina Ortiz MD Work Phone: [facility] 07-13-2023 11:38-0400 Systolic blood pressure 117 mm[Hg] Mina Ortiz MD Work Phone: [facility] 10-08-2022 02:02-0400 Diastolic blood pressure 37 mm[Hg] Antwan Maharaj Other Phone: [facility] 10-08-2022 02:02-0400 Heart rate 86 /min Antwan Maharaj Other Phone: [facility] 10-08-2022 02:02-0400 Respiratory rate 16 /min Antwan Maharaj Other Phone: [facility] 10-08-2022 02:02-0400 SaO2% (BldA) [Mass fraction] 94 % Antwan Maharaj Other Phone: [facility] 10-08-2022 02:02-0400 Systolic blood pressure 91 mm[Hg] Antwan Maharaj Other Phone: [facility] 08-18-2022 16:48-0400 Diastolic blood pressure 76 mm[Hg] Antwan Maharaj Other Phone: [facility] 08-18-2022 16:48-0400 Heart rate 84 /min Antwan Maharaj Other Phone: [facility] 08-18-2022 16:48-0400 Respiratory rate 18 /min Antwan Maharaj Other Phone: [facility] 08-18-2022 16:48-0400 SaO2% (BldA) [Mass fraction] 95 % Antwan Maharaj Other Phone: [facility] 08-18-2022 16:48-0400 Systolic blood pressure 164 mm[Hg] Antwan Maharaj Other Phone: [facility] 08-18-2022 14:37-0400 Body temperature 98.06 [degF] Antwan Maharaj Other Phone: [facility] 08-18-2022 14:37-0400 Body weight 60.5 kg Antwan Harrietcory Other Phone: [facility] 08-09-2022 13:35-0500 Diastolic blood pressure 71 mm[Hg] Antwan Gusdomo Other Phone: [facility] 08-09-2022 13:35-0500 Heart rate 74 /min Antwan Gusdomo Other Phone: [facility] 08-09-2022 13:35-0500 Respiratory rate 18 /min Antwan Harrietcory Other Phone: [facility] 08-09-2022 13:35-0500 SaO2% (BldA) [Mass fraction] 97 % Antwan Harrietcory Other Phone: [facility] 08-09-2022 13:35-0500 Systolic blood pressure 132 mm[Hg] Antwan Gusdomo Other Phone: [facility] 08-09-2022 11:23-0500 Body height 157.4 cm Antwan Harrietcory Other Phone: [facility] 08-09-2022 11:23-0500 Body temperature 98.06 [degF] Antwan Gusdomo Other Phone: [facility] 08-09-2022 11:23-0500 Body weight 60 kg Antwan Gusdomo Other Phone: [facility] 08-01-2022 10:27-0500 Body height 162.6 cm Mina Ortiz MD Work Phone: [facility] 08-01-2022 10:27-0500 Body mass index (BMI) [Ratio] 22.83 kg/m2 Mina Ortiz MD Work Phone: [facility] 08-01-2022 10:27-0500 Body weight 60.33 kg Mina Ortiz MD Work Phone: [facility] 08-01-2022 10:27-0500 Diastolic blood pressure 75 mm[Hg] Mina Ortiz MD Work Phone: [facility] 08-01-2022 10:27-0500 Heart rate 80 /min Mina Ortiz MD Work Phone: [facility] 08-01-2022 10:27-0500 Respiratory rate 16 /min Mina Ortiz MD Work Phone: [facility] 08-01-2022 10:27-0500 SaO2% (BldA) [Mass fraction] 95 % Mina Ortiz MD Work Phone: [facility] 08-01-2022 10:27-0500 Systolic blood pressure 113 mm[Hg] Mina Ortiz MD Work Phone: [facility] 04-27-2019 13:37-0500 BMI (Body Mass Index) 19.4 kg/m2 Ti Rhodes [facility] 04-27-2019 13:37-0500 Body weight 51.26 kg Tijackie Rhodes [facility] 04-27-2019 13:37-0500 Height 162.6 cm Tijackie Rhodes [facility] Encounters Encounter Date Encounter Type Care Provider Facility Start: 12-06-2024 End: 12-07-2024 Refill Zara Evans DO Work Phone: [facility] Start: 11-17-2024 ambulatory ZARA EVANS [facility] Ambulatory Start: 11-11-2024 End: 11-11-2024 Office outpatient visit 15 minutes Marcos Barrera MD Work Phone: [facility] Comment on above: Gastroesophageal ref lux disease, unspecified whether esophagitis present (Primary Dx) Start: 11-11-2024 End: 11-11-2024 ambulatory MARCOS BARRERA [facility] Ambulatory Start: 10-25-2024 End: 10-25-2024 Patient encounter procedure Elizabeth Kimble DPM Work Phone: [facility] Comment on above: Onychomycosis (Prima ry Dx); Onychodystrophy; Diabetic peripheral neuropathy (HCC); Pain due to onychomycosis of toenail of right foot Start: 10-25-2024 End: 10-25-2024 ambulatory ELIZABETH KIMBLE [facility] Start: 10-12-2024 End: 10-12-2024 Chart abstracting Zara Evans DO Work Phone: [facility] Start: 10-10-2024 End: 12-10-2024 Follow-up encounter Zara Evans DO Work Phone: [facility] Comment on above: MTB SCREEN Start: 09-30-2024 End: 09-30-2024 Orders Only Oren Araujo MD Work Phone: [facility] Comment on above: Type 2 diabetes susi itus without complication, without long- term current use of insulin (HCC) (Primary Dx) Start: 09-23-2024 End: 09-23-2024 Orders Only Zara Evans DO Work Phone: [facility] Comment on above: At risk for tubercul osis (Primary Dx) Start: 09-21-2024 End: 09-21-2024 Office outpatient visit 25 minutes Zara Evans DO Work Phone: [facility] Comment on above: Type 2 diabetes susi itus without complication, without long- term current use of insulin (HCC) (Primary Dx); Recurrent falls; Abnormal CT of the abdomen Start: 09-21-2024 End: 09-21-2024 ambulatory ZARA EVANS [facility] Start: 09-16-2024 End: 09-16-2024 Orders Only Zara Evans DO Work Phone: [facility] Start: 09-15-2024 End: 09-16-2024 Refill Zara Evans DO Work Phone: [facility] Start: 09-09-2024 End: 09-09-2024 Office outpatient new 30 minutes Zara Evans DO Work Phone: [facility] Comment on above: Abnormal CT of the a bdomen Start: 09-09-2024 End: 09-09-2024 ambulatory ZARA EVANS [facility] Start: 09-08-2024 End: 09-12-2024 ambulatory Shelley Anuradha Movens PA-C Work Phone: [facility] Comment on above: Parkinson's disease, unspecified whether dyskinesia present, unspecified whether manifestations fluctuate (HCC) (Primary Dx); Primary osteoarthritis involving multiple joints; Frequent falls Start: 09-06-2024 End: 09-06-2024 Documentation procedure Zara Evans DO Work Phone: [facility] Comment on above: [facility] Start: 09-06-2024 End: 09-10-2024 ambulatory Shelley Anuradha Movens PA-C Work Phone: [facility] Comment on above: Parkinson's disease, unspecified whether dyskinesia present, unspecified whether manifestations fluctuate (HCC) (Primary Dx); Primary osteoarthritis involving multiple joints; Frequent falls Start: 09-02-2024 End: 09-06-2024 ambulatory Shelley Anuradha Movens PA-C Work Phone: [facility] Comment on above: Parkinson's disease, unspecified whether dyskinesia present, unspecified whether manifestations fluctuate (HCC) (Primary Dx); Primary osteoarthritis involving multiple joints; Frequent falls Start: 09-02-2024 ambulatory ZARA EVANS [facility] Ambulatory Start: 2024 End: 09-03-2024 ambulatory Shelley Anuradha Movens PA-C Work Phone: [facility] Comment on above: Parkinson's disease, unspecified whether dyskinesia present, unspecified whether manifestations fluctuate (HCC) (Primary Dx); Primary osteoarthritis involving multiple joints; Frequent falls Start: 08-27-2024 End: 08-31-2024 ambulatory Shelley Anuradha Movens PA-C Work Phone: [facility] Comment on above: Parkinson's disease, unspecified whether dyskinesia present, unspecified whether manifestations fluctuate (HCC) (Primary Dx); Primary osteoarthritis involving multiple joints; Frequent falls Start: 08-26-2024 End: 2024 ambulatory Shelley Maldonado PA-C Work Phone: [facility] Comment on above: Parkinson's disease, unspecified whether dyskinesia present, unspecified whether manifestations fluctuate (HCC) (Primary Dx); Primary osteoarthritis involving multiple joints; Frequent falls Start: 08-19-2024 End: 08-23-2024 ambulatory Shelley Maldonado PA-C Work Phone: [facility] Comment on above: Parkinson's disease, unspecified whether dyskinesia present, unspecified whether manifestations fluctuate (HCC) (Primary Dx); Primary osteoarthritis involving multiple joints; Frequent falls Constipation, unspec ified constipation type (Primary Dx); Frequent falls Start: 08-13-2024 End: 08-13-2024 [facility] Comment on above: Occupational Therapy ; Neuro Start: 08-13-2024 ambulatory [facility] Start: 08-05-2024 ambulatory ZARA EVANS [facility] Ambulatory Start: 08-03-2024 End: 08-03-2024 Transcribe Orders Shelley Maldonado PA-C Work Phone: [facility] Comment on above: Closed fracture of s ternum with routine healing, unspecified portion of sternum, subsequent encounter (Primary Dx); Multiple falls; Parkinson's disease, unspecified whether dyskinesia present, unspecified whether manifestations fluctuate (HCC); Primary osteoarthritis involving multiple joints Start: 08-02-2024 End: 08-06-2024 ambulatory Shelley Maldonado PA-C Work Phone: [facility] Comment on above: Parkinson's disease, unspecified whether dyskinesia present, unspecified whether manifestations fluctuate (HCC) (Primary Dx); Primary osteoarthritis involving multiple joints; Frequent falls; Multiple falls Start: 07-29-2024 End: 07-29-2024 Office outpatient visit 15 minutes Zara Evans DO Work Phone: [facility] Comment on above: Recurrent falls (Teresa jayesh Dx) Start: 07-29-2024 End: 07-29-2024 ambulatory ZARA EVANS [facility] Start: 07-27-2024 End: 07-27-2024 Patient encounter procedure Elizabeth Kimble DPM Work Phone: [facility] Comment on above: Onychomycosis (Prima ry Dx); Onychodystrophy; Diabetic peripheral neuropathy (HCC); Pain due to onychomycosis of toenail of right foot Start: 07-27-2024 End: 07-27-2024 ambulatory ZARA EVANS [facility] Start: 07-26-2024 End: 07-26-2024 Orders Only Zara Marlon Evans DO Work Phone: [facility] Comment on above: Abnormal CT of the a bdomen (Primary Dx) Start: 07-26-2024 ambulatory ZARA EVANS [facility] Ambulatory Start: 07-19-2024 End: 07-23-2024 Evaluation and management of inpatient [facility] Start: 07-14-2024 End: 07-14-2024 Emergency department patient visit ZARA Mason [facility] Start: 07-13-2024 End: 07-13-2024 Office outpatient visit 25 minutes Zara Marlon Evans DO Work Phone: [facility] Comment on above: Recurrent falls (Teresa jayesh Dx); Primary osteoarthritis involving multiple joints Start: 07-13-2024 End: 07-13-2024 ambulatory ZARA EVANS [facility] Start: 07-09-2024 End: 07-09-2024 Emergency department patient visit Miles He DO Work Phone: [facility] Comment on above: Fall, initial encoun ter (Primary Dx); Contusion of right knee and lower leg, initial encounter Start: 06-28-2024 End: 06-28-2024 ambulatory [facility] Start: 06-28-2024 End: 06-28-2024 Office [facility] Work [facility]: [facility] Comment on above: Acquired hypothyroid ism (Primary Dx); Primary hypertension; Gastroesophageal reflux disease without esophagitis; Schizophrenia, unspecified type; Parkinson's disease without dyskinesia or fluctuating manifestations; Balance disorder Start: 06-23-2024 End: 06-23-2024 Office outpatient new 45 minutes Zara Evans DO Work Phone: [facility] Comment on above: Primary hypertension (Primary Dx); Type 2 diabetes mellitus without complication, without long-term current use of insulin (HCC); Parkinson's disease, unspecified whether dyskinesia present, unspecified whether manifestations fluctuate (HCC); Schizophrenia, unspecified type (HCC); Recurrent falls Start: 06-23-2024 End: 06-23-2024 ambulatory ZARA EVANS [facility] Start: 05-26-2024 End: 05-26-[address] [facility] Start: 05-25-2024 ambulatory MINA ORTIZ [facility] Ambulatory Start: 05-19-2024 End: 05-19-[address] [facility] Start: 05-18-2024 End: 05-18-2024 Refill Mina Ortiz MD Work Phone: [facility] Comment on above: Parkinson disease (H CC) Start: 05-11-2024 End: 05-11-[address] [facility] Start: 05-05-2024 End: 05-05-[address] [facility] Start: 05-04-2024 End: 05-04-[address] [facility] Start: 04-28-2024 End: 04-28-[address] [facility] Start: 04-27-2024 End: 04-27-[address] [facility] Start: 04-27-2024 End: 04-27-2024 ambulatory ELIZABETH KIMBLE [facility] Start: 04-27-2024 End: 04-27-2024 Patient encounter procedure Elizabeth Kimble DPM Work Phone: [facility] Comment on above: Onychomycosis (Prima ry Dx); Onychodystrophy; Diabetic peripheral neuropathy (HCC); Pain due to onychomycosis of toenail of right foot Start: 04-22-2024 End: 04-22-[address] [facility] Start: 04-20-2024 End: 04-20-[address] [facility] Start: 04-15-2024 End: 04-15-[address] [facility] Start: 03-29-2024 End: 03-29-2024 ambulatory [facility] Ambulatory Start: 03-29-2024 End: 03-29-2024 Office outpatient visit 25 minutes Rafa Jacinto DO Work Phone: [facility] Comment on above: Type 2 diabetes susi itus without complication, without long- term current use of insulin (Multi) (Primary Dx); Primary hypertension; Acquired hypothyroidism; Gastroesophageal reflux disease without esophagitis; Stage 3a chronic kidney disease (Multi); Schizophrenia, unspecified type; Parkinson's disease without dyskinesia or fluctuating manifestations Start: 03-22-2024 End: 03-22-[address] [facility] Start: 03-12-2024 End: 03-12-2024 ambulatory [facility] Start: 03-01-2024 End: 03-01-2024 ambulatory NIMCO Carr [facility] Start: 02-27-2024 End: 02-27-[address] [facility] Start: 02-25-2024 End: 02-25-[address] [facility] Start: 02-23-2024 End: 02-23-[address] [facility] Start: 02-13-2024 End: 02-13-[address] [facility] Start: 02-11-2024 End: 02-11-[address] [facility] Start: 02-10-2024 End: 02-10-[address] [facility] Start: 02-05-2024 End: 02-05-2024 Office outpatient visit 15 minutes Tracy Angelman 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 Work Phone: [facility] Comment on above: Other closed fractur e of distal end of right ulna, initial encounter (Primary Dx) Start: 02-05-2024 End: 02-05-2024 ambulatory [facility] Ambulatory Start: 02-04-2024 End: 02-04-[address] [facility] Start: 02-03-2024 End: 02-03-2024 Office outpatient visit 15 minutes Sachin Morales MD Work Phone: [facility] Comment on above: Right wrist pain (Pr imary Dx) Start: 02-03-2024 End: 02-03-2024 Orders Only Mariana Oates [employer] 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 Start: 01-30-2024 End: 01-30-[address] [facility] Start: 01-29-2024 End: 01-30-2024 ambulatory [facility] Start: 01-29-2024 End: 01-29-2024 Subsequent hospital visit by physician Sabas Greenev1 [facility] Comment on above: Arrived Start: 01-29-2024 End: 01-29-2024 Emergency department patient visit Darin Trujillo MD Work Phone: [facility] Comment on above: Subluxation of dista l end of right ulna, subsequent encounter (Primary Dx); Contusion of right forearm, initial encounter; Contusion of right knee, initial encounter; Subluxation of tooth Start: 01-26-2024 End: 01-26-2024 Patient encounter procedure Elizabeth Kimble DPM Work Phone: [facility] Comment on above: Onychomycosis; Onychodystrophy; Diabetic peripheral neuropathy (HCC); Pain due to onychomycosis of toenail of right foot Start: 01-26-2024 End: 01-26-2024 ambulatory ELIZABETH HANSENR [facility] Start: 01-23-2024 End: 01-23-[address] [facility] Start: 01-22-2024 End: 01-22-[address] [facility] Start: 01-21-2024 End: 01-21-[address] [facility] Start: 01-21-2024 End: 01-21-2024 Office outpatient visit 15 minutes Huy Vasquez PA-C Work Phone: [facility] Comment on above: SAH (subarachnoid he morrhage) (HCC) (Primary Dx) Start: 01-21-2024 End: 01-21-2024 ambulatory HUY VASQUEZ [facility] Start: 01-16-2024 End: 01-16-[address] [facility] Start: 01-12-2024 End: 01-12-[address] [facility] Start: 01-09-2024 End: 01-09-[address] [facility] Start: 01-08-2024 End: 01-08-2024 ambulatory MINA ORTIZ [facility] Start: 01-08-2024 End: 01-08-2024 Office outpatient visit 40 minutes Mina Ortiz MD Work Phone: [facility] Comment on above: Parkinson disease (H CC) Start: 01-06-2024 End: 01-06-2024 ambulatory HUY VASQUEZ [facility] Start: 01-02-2024 End: 01-02-[address] [facility] Start: 12-31-2023 End: 12-31-[address] [facility] Start: 12-29-2023 End: 12-29-2023 ambulatory [facility] Ambulatory Start: 12-29-2023 End: 12-29-2023 Office outpatient visit 25 minutes Rafa Amy [facility] Work Phone: [facility] Comment on above: Primary hypertension (Primary Dx); Type 2 diabetes mellitus without complication, without long-term current use of insulin (Multi); Acquired hypothyroidism; Disease of thyroid gland; Gastroesophageal reflux disease without esophagitis; Stage 3a chronic kidney disease (Multi); Schizophrenia, unspecified type (Multi); Parkinson's disease without dyskinesia or fluctuating manifestations (Multi) Start: 12-26-2023 End: 12-26-[address] [facility] Start: 12-24-2023 End: 12-24-[address] [facility] Start: 12-24-2023 End: 12-24-2023 ambulatory SACHIN MORALES [facility] Start: 12-24-2023 End: 12-24-2023 Postop follow up visit related to original px Sachin Morales MD Work Phone: [facility] Comment on above: Right wrist pain (Pr imary Dx) Start: 12-18-2023 End: 12-18-2023 Orders Only Sachin Morales MD Work Phone: [facility] Comment on above: Pain (Primary Dx) Start: 12-17-2023 End: 12-17-2023 Office outpatient visit 40 minutes [facility] 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 Work Phone: [facility] Comment on above: Parkinson's disease with fluctuating manifestations, unspecified whether dyskinesia present (Multi) (Primary Dx); Subarachnoid hemorrhage (Multi) Start: 12-17-2023 End: 12-17-2023 ambulatory [facility] Ambulatory Start: 12-16-2023 End: 12-16-2023 ambulatory PRISCILLA MACKEY [facility] Start: 12-16-2023 End: 12-16-2023 Office outpatient visit 15 minutes Priscilla Mackey CONTRACTS SPECIALIST Work Phone: [facility] Comment on above: SAH (subarachnoid he morrhage) (HCC) (Primary Dx) Start: 12-08-2023 End: 12-08-2023 Orders Only Huy Vasquez PA-C Work Phone: [facility] Comment on above: SAH (subarachnoid he morrhage) (HCC) (Primary Dx) Start: 12-04-2023 End: 12-05-2023 Evaluation and management of inpatient [facility] Start: 12-04-2023 End: 12-04-2023 Emergency department patient visit Jasmyn Wade DO Work Phone: [facility] Comment on above: Fall, initial encoun ter (Primary Dx); Traumatic hemorrhage of right cerebrum with loss of consciousness of 30 minutes or less, initial encounter (Multi); Facial abrasion, initial encounter; Contusion of face, initial encounter; Dislocation of right wrist, initial encounter Start: 10-15-2023 End: 10-15-2023 ambulatory [facility] Start: 10-14-2023 End: 10-14-2023 Office outpatient visit 15 minutes Elizabeth Parveen Hansenr DPM Work Phone: [facility] Comment on above: Diabetic peripheral neuropathy (HCC) (Primary Dx); Onychodystrophy; Onychomycosis; Pain due to onychomycosis of toenail of right foot Start: 07-19-2023 End: 07-19-2023 Emergency department patient visit [facility] Start: 07-15-2023 End: 07-15-2023 Office outpatient new 30 minutes Elizabeth Sabry Ringle DPM Work Phone: [facility] Comment on above: Comprehensive diabet ic foot examination, type 2 DM, encounter for (HCC) (Primary Dx); Diabetic peripheral neuropathy (HCC); Onychodystrophy; Onychomycosis; Pain due to onychomycosis of toenail of right foot Start: 07-10-2023 End: 07-10-2023 Subsequent hospital visit by physician Sabas Kzggill331 Kristio [facility] Comment on above: Encounter for screen ing mammogram for malignant neoplasm of breast Start: 06-25-2023 Orders Only Mina Ortiz MD Work Phone: [facility] Comment on above: Parkinson disease Start: 06-24-2023 Refill Mary Anne Julianne strickland MA [facility] Comment on above: Parkinson disease Start: 06-23-2023 End: 06-23-2023 Office outpatient visit 25 minutes Mina Ortiz MD Work Phone: [facility] Comment on above: Parkinson disease Start: 04-21-2023 End: 04-21-2023 Office outpatient new 45 minutes Rafa Jacinto DO Work Phone: [facility] Comment on above: Encounter for screen ing mammogram for malignant neoplasm of breast (Primary Dx); Type 2 diabetes mellitus without complication, without long-term current use of insulin ([facility]); Acquired hypothyroidism; Stage 3a chronic kidney disease ([facility]); Parkinson's disease without dyskinesia or fluctuating manifestations; Schizophrenia, unspecified type ([facility]) Start: 02-04-2023 Patient encounter procedure [facility]aj [facility] Phone: Start: 01-29-2023 Patient encounter procedure Antwan Maharaj [facility]: [facility] Work Phone: Start: 01-29-[address] Antwan Maharaj Facility:[id number] Start: 01-21-[address] Antwan Maharaj Facility:[id number] Start: 01-21-2023 Patient encounter procedure [facility]twan Maharaj [facility] Work Phone: Start: 01-14-2023 Patient encounter procedure Antwan Maharaj Work Phone: [facility] Work Phone: Start: 01-14-[address] Antwan Maharaj Facility:[id number] Start: 12-31-[address] Antwan Maharaj Facility:[id number] Start: 12-24-[address] Antwan Maharaj Facility:[id number] Start: 12-24-2022 Patient encounter procedure Antwan Maharaj Work Phone: [facility] Work Phone: Start: 12-19-[address] Antwan Maharaj Facility:[id number] Start: 12-19-2022 Patient encounter procedure Antwan Maharaj Work Phone: [facility] Work Phone: Start: 12-19-2022 End: 12-19-2022 Office outpatient visit 25 minutes Mina Ortiz MD Work Phone: [facility] Comment on above: Parkinson disease (H CC) Start: 12-03-2022 Patient encounter procedure Antwan Maharaj Work Phone: [facility] Work Phone: Start: 12-03-[address] Antwan Maharaj Facility:[id number] Start: 11-25-2022 Patient encounter procedure Antwan Maharaj Work Phone: [facility] Work Phone: Start: 11-25-[address] Antwan Maharaj Facility:[id number] Start: 11-06-2022 End: 11-06-2022 Emergency department patient visit Erickson Hernandez [facility] Emergency Start: 10-07-2022 End: 10-08-2022 Emergency department patient visit Osiel Vergara [facility] Emergency 11 Start: 08-18-2022 End: 08-18-2022 Emergency department patient visit Sharmaine Dean [facility] Emergency 12 Start: 08-09-2022 End: 08-09-2022 Emergency department patient visit Erickson Hernandez [facility] Emergency Start: 08-01-2022 End: 08-01-2022 Office outpatient visit 25 minutes Mina Ortiz MD Work Phone: [facility] Comment on above: Parkinson disease (H CC) (Primary Dx) Start: 05-25-2022 End: 05-26-2022 Emergency department patient visit France Lowe [facility] Emergency 07 Start: 04-22-[address] Antwan Maharaj Facility:[id number] Start: 04-17-2022 End: 04-18-2022 ambulatory MINA ORTIZ [facility] Start: 04-15-2022 Orders Only Mina Ortiz MD Work Phone: [facility] Comment on above: NPH (normal pressure hydrocephalus) (HCC) (Primary Dx); Abnormal coagulation profile NPH (normal pressure hydrocephalus) (HCC) (Primary Dx) Start: 11-15-2021 Transcribe Orders Antwan espinoza MD Work Phone: [facility] Central Scheduling Comment on above: Other symptoms and s igns involving the nervous system (Primary Dx); Abnormal brain MRI Start: 05-18-2019 End: 05-18-2019 Office outpatient visit 10 minutes Tijackie Shea Floridalma Work Phone: [facility] Comment on above: Fracture of unspecif ied phalanx of left little finger, initial encounter for closed fracture (Primary Dx) Start: 04-27-2019 End: 04-27-2019 Office outpatient new 30 minutes Antwan Maharaj Work Phone: [facility] Comment on above: Fracture of unspecif ied phalanx of left little finger, initial encounter for closed fracture Start: 11-03-2018 End: 11-03-2018 Patient encounter procedure Antwan Maharaj Work Phone: [facility] Comment on above: Dysphagia, unspecifi ed type Start: 12-25-2017 Patient encounter Antwan Maharaj Fa cility:[place] Start: 07-26-2017 Patient encounter Antwan Maharaj Fa cility:[place] Start: 04-17-2017 End: 04-17-2017 Patient encounter Antwan Maharaj Facility:[place] Start: 04-09-2017 End: 04-09-2017 Ambulatory Antwan Watters Work Phone: [facility] Start: 01-14-2017 Ambulatory [facility] Facility :[facility] Start: 01-13-2017 End: 01-13-2017 Emergency department patient visit [facility] Facility:[facility] Procedures Date Procedure Procedure Detail Performing Clinician [...] 75+ (1 - 1-dose 75+ series) [facility] Start: 07-14-2034 Tetanus vaccination Tetanus: Every 10yrs [facility] Start: 07-19-2033 DTaP/Tdap/Td Vaccines (4 - Td or Tdap) DTaP/Tdap/Td Vaccines (4 - Td or Tdap) [facility] Start: 07-19-2033 Tetanus vaccination Tetanus: Every 10yrs [facility] Start: 08-09-2032 DTaP/Tdap/Td Vaccines (2 - Td or Tdap) DTaP/Tdap/Td Vaccines (2 - Td or Tdap) [facility] Start: 08-09-2032 Tetanus vaccination Tetanus: Every 10yrs [facility] Start: 11-17-2028 Tetanus vaccination [facility] Start: 09-21-2025 Urine screening for protein Urine (micro)albumin/creatini ne ratio - Diabetes [facility] Start: 07-19-2025 eGFR Diabetes eGFR Diabetes [facility] Start: 07-19-2025 Urine screening for protein eGFR Diabetes [facility] Start: 07-11-2025 Screening for malignant neoplasm of colon [facility] Start: 06-28-2025 Thyroid stimulating hormone measurement TSH Level [facility] Start: 03-30-2025 End: 03-30-2025 Patient encounter procedure 03/30/2025 10:40 AM EDT Office Visit [facility] [address] [place] [address] Zara Evans DO [address] [address] [facility] Start: 03-12-2025 Thyroid stimulating hormone measurement TSH Level [facility] Start: 03-03-2025 Glaucoma screening Diabetes: Retinopathy Screening [facility] Start: 02-07-2025 Influenza vaccination Influenza Vaccine (#1) [facility] Start: 01-24-2025 End: 01-24-2025 Patient encounter procedure 01/24/2025 11:30 AM EDT Office Visit [facility] [address] [facility] [place] [phone] Elizabeth Kimble DPM [address] [place] [address] [facility] Start: 01-11-2025 End: 01-11-2025 Patient encounter procedure 01/11/2025 9:40 AM EDT Office Visit [facility] [address] [facility] Medical Office Building, 2nd [place] [address] Mina Ortiz MD [address] [address] [facility] Start: 12-30-2024 End: 12-30-2024 Patient encounter procedure 12/30/2024 11:20 AM EDT Office Visit [facility] [address] [place] [phone] Zara Evans DO [address] [address] [facility] Start: 12-21-2024 Hemoglobin A1c measurement A1C [facility] Start: 12-04-2024 Urine screening for protein eGFR Diabetes [facility] Start: 11-11-2024 End: 11-11-2024 Patient encounter procedure 11/11/2024 11:00 AM EDT Office Visit [facility] [address] [place] [phone] Marcos Barrera MD [address] [place] [address] [facility] Start: 10-25-2024 End: 10-25-2024 Patient encounter procedure 10/25/2024 11:00 AM EDT Office Visit [facility] [address] [place] [address] Elizabeth Kimble DPM [address] [place] [address] [facility] Start: 10-14-[address] [facility] Start: 10-14-2024 Thyroid stimulating hormone measurement TSH Level [facility] Start: 09-30-2024 End: 09-30-2024 Patient encounter procedure [facility] Start: 09-26-[address] [facility] Start: 09-21-2024 End: 09-21-2024 Patient encounter procedure 09/21/2024 10:40 AM EDT Office Visit [facility] [address] [place] [address] [place] [address] [place] [address] [facility] Start: 09-09-2024 End: 09-09-2024 Patient encounter procedure 09/09/2024 2:00 PM EDT Office Visit [facility] [address] [place] [address] Zara Evans DO [address] [address] Marcos Barrera MD [address] [place] [address] [facility] Start: 09-08-2024 End: 09-08-2024 ambulatory 09/08/2024 10:15 AM EDT Treatment [facility] [address] [place] [phone] Shelley Maldonado PA-C [address] [place] [address] Julianne Buck, PT [facility] Start: 09-06-2024 End: 09-06-2024 ambulatory 09/06/2024 10:15 AM EDT Treatment [facility] [address] [facility] [place] [address] Shelley Maldonado PA-C [address] [facility] [address] [facility] Start: 09-02-2024 End: 09-02-2024 ambulatory 09/02/2024 10:15 AM EDT Treatment [facility] [address] [place] [address] Shelley Maldonado PA-C [address] [place] [address] [facility] Start: 2024 End: 2024 ambulatory 2024 10:15 AM EDT Treatment [facility] [address] [place] [address] Shelley Maldonado PA-C [address] [place] [address] [facility] Start: 08-27-2024 End: 08-27-2024 ambulatory [facility] Start: 08-26-2024 End: 08-26-2024 ambulatory 08/26/2024 10:15 AM EDT Treatment [facility] [address] [place] [address] Shelley Maldoando PA-C [address] [place] [address] [facility] Start: 08-13-2024 End: 08-13-2024 ambulatory 08/13/2024 10:15 AM EST Evaluation [facility] [address] [place] [address] Shelley Maldonado PA-C [address] [place] [address] Soto Daly, OT Discharge Disposition: Home [facility] Start: 08-02-2024 End: 08-02-2024 ambulatory 08/02/2024 12:30 PM EST Evaluation [facility] [address] [place] [address] Shelley Maldonado PA-C [address] [place] [address] Julianne Buck, PT Discharge Disposition: Home [facility] Start: 07-29-2024 End: 07-29-2024 Patient encounter procedure 07/29/2024 11:20 AM EST Office Visit [facility] [address] [place] [address] Zara Evans DO [address] [place] [address] [facility] Start: 07-27-2024 End: 07-27-2024 Patient encounter procedure 07/27/2024 10:00 AM EST Office Visit [facility] [address] [facility] [place] [address] Elizabeth Kimble, BHUMI [address] [place] [address] [facility] Start: 07-22-2024 End: 07-22-2024 Patient encounter procedure 07/22/2024 11:20 AM EST Office Visit [facility] [address] [place] [address] Zara Evans DO [address] [place] [address] [facility] Start: 07-15-2024 Diabetic foot examination Diabetic Foot Exam [facility] Start: 07-10-2024 Screening for malignant neoplasm of breast Mammogram [facility] Start: 07-03-2024 Screening for malignant neoplasm of cervix [facility] Start: 06-28-2024 End: 06-28-2025 TSH with reflex to Free T4 if abnormal [facility] Service Area Work Phone: Comment on above: Expected: 06/28/2024 (Approximate), Expi res: 06/28/2025 Start: 06-28-2024 End: 06-28-2024 Patient encounter procedure 06/28/2024 12:40 PM EST Office Visit [facility] [address] [address] Rafa Jacinto, DO [address] [facility] [place] [address] [facility] Start: 06-12-[address] [facility] Start: 04-27-2024 End: 04-27-2024 Patient encounter procedure 04/27/2024 10:00 AM EST Office Visit [facility] [address] [place] [phone] Elizabeth Kimble, DPM [address] [place] [address] [facility] Start: 04-15-2024 End: 04-15-2024 ambulatory 04/15/2024 9:45 AM EST Treatment [facility] [address] [place] [address] Perla Robbins, OT [address] [place] [place] [address] [facility] Start: 03-29-2024 End: 03-29-2024 Patient encounter procedure 03/29/2024 12:40 PM EDT Office Visit [facility] [address] [address] Rafa Jacinto L, DO [address] [facility] [place] [address] [facility] Start: 03-03-2024 Glaucoma screening Diabetes: Retinopathy Screening [facility] Start: 03-01-2024 End: 03-01-2024 ambulatory 03/01/2024 9:30 AM EDT Treatment [facility] [address] [facility] [address] [place] [address] Nimco Reyna, PT [address] [facility] Services [place], [place] [phone] [facility] Start: 02-20-2024 End: 02-20-2024 ambulatory 02/20/2024 8:30 AM EDT Treatment [facility] [address] [facility] [address] [place] [address] Justa Rondon, BABY SITTER [address] [facility] [place], [place] [phone] [facility] Start: 02-18-2024 End: 02-18-2024 ambulatory 02/18/2024 9:15 AM EDT Treatment [facility] [address] [facility] [address] [place] [address] Della Rivera, BABY SITTER [address] [place] [address] [facility] Start: 02-16-2024 End: 02-16-2024 ambulatory 02/16/2024 10:00 AM EDT Treatment [place] [address] [place] [address] [place] [address] [facility] Department [place] [address] [facility] Start: 02-13-2024 End: 02-13-2024 ambulatory 02/13/2024 3:30 PM EDT Treatment [facility] [address] [facility] [address] [place] [address] Mary Anne Enriquez, BABY SITTER [address] [facility] [place] [phone] [facility] Start: 02-11-2024 End: 02-11-2024 ambulatory 02/11/2024 2:00 PM EDT Treatment [facility] [address] [facility] [address] [place] [address] Mary Anne Enriquez, BABY SITTER [address] [place] [address] [facility] Start: 02-10-2024 End: 02-10-2024 ambulatory 02/10/2024 10:30 AM EDT Treatment [address] [address] Pooja Malave OTA [facility] [place] [place] [address] [facility] Start: 02-08-2024 COVID-19 Vaccine ( season) COVID-19 Vaccine ( season) [facility] Start: 02-08-2024 Influenza vaccination Influenza Vaccine (#1) [facility] Start: 02-05-2024 End: 02-05-2024 ambulatory 02/05/2024 9:45 AM EDT Treatment [address] [address] Pooja Malave OTA [address] [facility] [place] [place] [address] [facility] [facility] Start: 02-04-2024 End: 02-04-2024 ambulatory 02/04/2024 3:30 PM EDT Treatment [facility] [address] [address] Della Rivera, BABY SITTER [address] [facility] Re[facility] Services [place], [place] [id number] [facility] Start: 02-02-2024 End: 02-02-2024 ambulatory 02/02/2024 10:00 AM EDT Treatment [facility] [address] [place] [phone] [place] [address] [facility] Department [place] [address] [facility] Start: 01-30-2024 End: 01-30-2024 ambulatory 01/30/2024 10:00 AM EDT Treatment [facility] [address] [place] [id number] Elbert Sosa, PT [address] [facility] [place] [address] [facility] Start: 01-26-2024 End: 01-26-2024 Patient encounter procedure 01/26/2024 1:45 PM EDT Office Visit [facility] [address] [place] [address] Elizabeth Kimble, BHUMI [address] [place] [address] [facility] Start: 01-26-2024 End: 01-26-2024 Patient encounter procedure 01/26/2024 8:30 AM EDT Office Visit [facility] [address] [place] [address] Elizabeth Kimble DPM [address] [place] [address] [facility] Start: 01-23-2024 End: 01-23-2024 ambulatory 01/23/2024 9:15 AM EDT Treatment [facility] [address] [facility] [address] [place] [address] Denise Morgan, BABY SITTER [address] [facility] [place] [address] [facility] Start: 01-21-2024 End: 01-21-2024 ambulatory 01/21/2024 3:30 PM EDT Treatment [facility] [address] [facility] [address] [place] [address] Della Rivera, BABY SITTER [address] [facility] [place] [address] [facility] Start: 01-21-2024 End: 01-21-2024 Patient encounter procedure 01/21/2024 10:15 AM EDT Office Visit [facility] [address] [facility] [place] [phone] Huy Vasquez PA-C [address] [place] [address] [facility] Start: 01-19-2024 End: 01-19-2024 Patient encounter procedure 01/19/2024 8:15 AM EDT Office Visit [facility] [address] [place] [address] Elizabeth Kimble DPM [address] [place] [address] [facility] Start: 01-16-2024 End: 01-16-2024 ambulatory 01/16/2024 2:00 PM EDT Treatment [facility] [address] [facility] [address] [place] [address] Della Rivera, BABY SITTER [address] [facility] [facility] [place] [address] [facility] Start: 01-15-2024 Hemoglobin A1c measurement [facility] Start: 01-12-2024 End: 01-12-2024 ambulatory 01/12/2024 11:30 AM EDT Evaluation [facility] [address] [place] [address] [place] [address] [place] [facility] Department [place] [address] [facility] Start: 01-09-2024 End: 01-09-2024 ambulatory 01/09/2024 9:15 AM EDT Treatment [facility] [address] [address] Denise Morgan, BABY SITTER [address] [facility] [place] [address] [facility] Start: 01-08-2024 End: 01-08-2024 Patient encounter procedure 01/08/2024 8:40 AM EDT Office Visit [facility] [address] Medical Office [facility], 2nd [place] [address] Mina Ortiz MD [facility] [address] [address] [facility] Start: 01-07-2024 End: 01-07-2024 ambulatory 01/07/2024 7:45 AM EDT Treatment [facility] [address] [facility] [address] [place] [address] Denise Morgan, BABY SITTER [address] [facility] [place] [address] [facility] Start: 01-06-2024 End: 01-06-2024 Patient encounter procedure 01/06/2024 10:00 AM EDT Appointment [facility] Emergency Department CT Scan [address] [place] [address] Huy Vasquez PA-C 335 [facility] Mariusz [address] [address] [facility] Emergency Department CT Scan Start: 01-05-2024 End: 12-07-2024 CT Head WO contrast CT Head Or Brain Without Contrast Imaging Routine SAH (subarachnoid hemorrhage) (HCC) Expected: 01/05/2024, Expires: 12/07/2024 [facility] Work Phone: Comment on above: Expected: 01/05/2024, Expires: Start: 01-02-2024 End: 01-02-2024 ambulatory 01/02/2024 9:15 AM EDT Treatment [facility] [address] [facility] [address] [place] [address] Denise Morgan, BABY SITTER [address] [facility] [place] [address] [facility] Start: 12-31-2023 End: 12-31-2023 ambulatory 12/31/2023 9:15 AM EDT Treatment [facility] [address] [facility] [address] [place] [address] Denise Morgan, BABY SITTER [address] [facility] [place] [address] [facility] Start: 12-29-2023 End: 12-29-2023 Patient encounter procedure 12/29/2023 4:40 PM EDT Office Visit [facility] [address] [place] [address] Rafa Jacinto, DO [address] [facility] [place] [address] [facility] Start: 12-29-2023 End: 12-28-2024 Comprehensive metabolic 2000 panel - Serum or Plasma Comprehensive Metabolic Panel Lab Routine Type 2 diabetes mellitus without complication, without long-term current use of insulin (Multi) Expected: 12/29/2023 (Approximate), Expires: 12/28/2024 [facility] Work Phone: Comment on above: Expected: 12/29/2023 (Approximate), Expi res: 12/28/2024 Start: 12-29-2023 End: 12-28-2024 Hemoglobin A1c/Hemoglobin.total in Blood Hemoglobin A1C Lab Routine Type 2 diabetes mellitus without complication, without long-term current use of insulin (Multi) Expected: 12/29/2023 (Approximate), Expires: 12/28/2024 [facility] Service Area Work Phone: Comment on above: Expected: 12/29/2023 (Approximate), Expi res: 12/28/2024 Start: 12-29-2023 End: 12-28-2024 TSH with reflex to Free T4 if abnormal TSH with reflex to Free T4 if abnormal Lab Routine Type 2 diabetes mellitus without complication, without long-term current use of insulin (Multi) Expected: 12/29/2023 (Approximate), Expires: 12/28/2024 [facility] Work Phone: Comment on above: Expected: 12/29/2023 (Approximate), Expi res: 12/28/2024 Start: 12-24-2023 End: 12-24-2023 ambulatory 12/24/2023 1:15 PM EDT Evaluation [facility] Radha [address] [place] [address] Ana Landaverde, DIE CUTTING MACHINE OPERATOR [address] [facility] [place] [address] ILAN Garcia Start: 12-24-2023 End: 12-24-2023 Patient encounter procedure 12/24/2023 9:30 AM EDT Office Visit [facility] [address] [facility] [place] [address] Sachni Morales MD [address] [place] [address] [facility] Start: 12-16-2023 End: 12-16-2023 Patient encounter procedure 12/16/2023 1:40 PM EDT Office Visit [facility] [address] [place] [address] Medical Office [facility], 5th [place] [address] Priscilla Mackey, CONTRACTS SPECIALIST [address] [place] [address] [facility] Start: 10-20-2023 End: 04-21-2024 Comprehensive metabolic 2000 panel - Serum or Plasma Comprehensive Metabolic Panel Lab Routine Type 2 diabetes mellitus without complication, without long-term current use of insulin (CMS/HCC) Expected: 10/20/2023 (Approximate), Expires: 04/21/2024 [facility] Work Phone: Comment on above: Expected: 10/20/2023 (Approximate), Expi res: 04/21/2024 Start: 10-20-2023 End: 04-21-2024 Hemoglobin A1c/Hemoglobin.total in Blood Hemoglobin A1C Lab Routine Type 2 diabetes mellitus without complication, without long-term current use of insulin (CMS/HCC) Expected: 10/20/2023 (Approximate), Expires: 04/21/2024 [facility] Work Phone: Comment on above: Expected: 10/20/2023 (Approximate), Expi res: 04/21/2024 Start: 10-20-2023 End: 04-21-2024 Lipid 1996 panel - Serum or Plasma Lipid Panel Lab Routine Type 2 diabetes mellitus without complication, without long-term current use of insulin ([facility]) Expected: 10/20/2023 (Approximate), Expires: 04/21/2024 [facility] Work Phone: Comment on above: Expected: 10/20/2023 (Approximate), Expi res: 04/21/2024 Start: 10-20-2023 End: 04-21-2024 TSH with reflex to Free T4 if abnormal TSH with reflex to Free T4 if abnormal Lab Routine Acquired hypothyroidism Expected: 10/20/2023 (Approximate), Expires: 04/21/2024 [facility] Work Phone: Comment on above: Expected: 10/20/2023 (Approximate), Expi res: 04/21/2024 Start: 10-20-2023 End: 10-20-2023 Patient encounter procedure 10/20/2023 10:20 AM EDT Office Visit [facility] [address] [facility] 1 [place] [address] Rafa Jacinto L, DO 53 [facility] [place] [address] [facility] Start: 10-14-2023 End: 10-14-2023 Patient encounter procedure 10/14/2023 8:15 AM EDT Office Visit [facility] [address] [facility] [place] [address] Elizabeth Kimble, BHUMI [address] [place] [address] [facility] Start: 07-10-2023 End: 07-10-2023 Professional / ancillary services management 07/10/2023 10:00 AM EST Ancillary Procedure [place] [address] [address] [facility] Start: 06-20-2023 End: 06-21-2024 DBT Breast - bilateral BI mammo bilateral screening tomosynthesis Imaging Routine Encounter for screening mammogram for malignant neoplasm of breast Expected: 06/20/2023, Expires: 06/21/2024 [facility] Service Area Work Phone: Comment on above: Expected: 06/20/2023, Expires: Start: 02-07-2023 Influenza vaccination [facility] Start: 02-04-2023 PTRECHADUL, Provider: Bibi Villela, Status: Pen, Time: 9:30 AM PTRECHADUL, Provider: Bibi Villela, Status: Pen, Time: 9:30 AM [facility] Work Phone: Start: 01-29-2023 [email or web address], Provider: Bibi Villela, Status: Pen, Time: 9:15 AM [email or web address], Provider: Bibi V[place]la, Status: Pen, Time: 9:15 AM [facility] Work Phone: Start: 01-21-2023 [email or web address], Provider: Bibi Villela, Status: Pen, Time: 9:00 AM [email or web address], Provider: Bibi Villela, Status: Pen, Time: 9:00 AM [facility] Work Phone: Start: 12-31-2022 PTRECHECKA, Provider: Bibi Villela, Status: Pen, Time: 10:00 AM PTRECHECKA, Provider: Bibi Villela, Status: Pen, Time: 10:00 AM [facility] Work Phone: Start: 12-24-2022 [email or web address], Provider: Bibi Villela, Status: Pen, Time: 11:30 AM [email or web address], Provider: Bibi Villela, Status: Pen, Time: 11:30 AM [facility] Work Phone: Start: 12-19-2022 [email or web address], Provider: Bibi Villela, Status: Pen, Time: 10:00 AM PTFUADULT4, Provider: Bibi Villela, Status: Pen, Time: 10:00 AM [facility] Work Phone: Start: 12-13-[address] [facility] Start: 12-13-2022 Thyroid stimulating hormone measurement TSH Level [facility] Start: 12-03-2022 [email or web address], Provider: Bibi Villela, Status: Pen, Time: 3:30 PM PTFUADULT4, Provider: Bibi Villela, Status: Pen, Time: 3:30 PM [facility] [place] Work Phone: Start: 11-18-2022 Administration of herpes zoster vaccine Zoster Vaccines (2 of 2) [facility] Start: 08-01-2022 End: 08-01-2022 Patient encounter procedure 08/01/2022 Office Visit Neurology Mina Ortiz MD [address] [place] [address] [facility] Start: 06-19-2022 Screening for malignant neoplasm of breast Mammogram [facility] Start: 04-24-2022 End: 04-24-2022 Patient encounter procedure 04/24/2022 Appointment Radiology Mina Ortiz MD [address] [place] [address] [facility] Start: 04-17-2022 Subsequent hospital visit by physician 04/17/2022 Hospital Encounter Radiology Mina Ortiz MD [address] [place] [address] [facility] Start: 03-15-[address] [facility] Start: 02-07-2022 Influenza vaccination Sequential Influenza Vaccine (Season Ended) [facility] Start: 2020 Respiratory Syncytial Virus Immunization: Risk, 60-74 Risk, or 75+ (1 - Risk 60-74 years 1-dose series) Respiratory Syncytial Virus Immunization: Risk, 60-74 Risk, or 75+ (1 - Risk 60-74 years 1-dose series) [facility] Start: 2020 RSV High Risk: (Elderly (60+) or Population) (1 - Risk 60-74 years 1-dose series) RSV High Risk: (Elderly (60+) or Population) (1 - Risk 60-74 years 1-dose series) [facility] Start: 2020 RSV patients and/or patients aged 60+ years (1 - 1-dose 60+ series) RSV patients and/or patients aged 60+ years (1 - 1-dose 60+ series) [facility] Start: 05-03-2020 Pneumococcal vaccination Pneumococcal Vaccine (2 of 2 - PCV) [facility] Start: 05-03-2020 Pneumococcal Vaccine: Age 50+ (2 of 2 - PCV) Pneumococcal Vaccine: Age 50+ (2 of 2 - PCV) [facility] Start: 05-03-2020 Pneumococcal Vaccine: Ped or At-Risk (2 of 2 - PCV) Pneumococcal Vaccine: Ped or At-Risk (2 of 2 - PCV) [facility] Start: 05-03-2020 Pneumococcal Vaccine: Pediatrics (0 to 5 Years) and At-Risk Patients (6 to 64 Years) (2 - PCV) Pneumococcal Vaccine: Pediatrics (0 to 5 Years) and At-Risk Patients (6 to 64 Years) (2 - PCV) [facility] Start: 05-03-2020 Pneumococcal Vaccine: Pediatrics (0 to 5 Years) and At-Risk Patients (6 to 64 Years) (2 of 2 - PCV) Pneumococcal Vaccine: Pediatrics (0 to 5 Years) and At-Risk Patients (6 to 64 Years) (2 of 2 - PCV) [facility] Start: 05-18-2019 End: 05-18-2019 Office Visit 05/18/2019 Office Visit Sports Medicine Ti Rhodes MD [address] [place] [address] [phone] [facility] Start: 02-07-2019 Influenza vaccination given [facility] Start: 06-25-2018 Hemoglobin A1c measurement A1C [facility] Start: 03-25-2018 Hemoglobin A1c measurement A1C [facility] Start: 2010 Administration of herpes zoster vaccine Zoster Vaccines (1 of 2) [facility] Start: 2010 Screening for malignant neoplasm of colon [facility] Start: 2010 Zoster Vaccines (1 of 2) Zoster Vaccines (1 of 2) [facility] Start: 2000 Screening for malignant neoplasm of breast Mammogram [facility] Start: 1990 Screening for malignant neoplasm of cervix [facility] Start: 1982 DTaP/Tdap/Td Vaccines (1 - Tdap) DTaP/Tdap/Td Vaccines (1 - Tdap) [facility] Start: 1981 Screening for malignant neoplasm of cervix [facility] Start: 08-31-1979 Urine screening for protein Diabetes: Urine Protein Screening [facility] Start: 1978 Hepatitis C screening Hepatitis C Screening [facility] Start: 08-31-1975 HIV screening HIV Screening [facility] Start: 1972 Depression screening using PHQ-9 (Patient Health Questionnaire 9) score [facility] Start: 1970 Diabetic foot examination [facility] Start: 1970 Glaucoma screening [facility] Start: 1970 Microalbumin measurement, urine, quantitative Urine Microalbumin [facility] Start: 1970 Ophthalmic examination and evaluation Ophthalmology Exam [facility] Start: 1970 Urine screening for protein [facility] Start: 1965 COVID-19 Vaccine (#1) COVID-19 Vaccine (#1) [facility] Start: 08-31-1963 History and physical examination, annual for health maintenance Wellness Visit [facility] Start: 08-31-1963 Medicare Wellness Visit Medicare Wellness Visit [facility] Start: 1961 MMR Vaccines (1 of 1 - Standard series) MMR Vaccines (1 of 1 - Standard series) [facility] Start: 03-02-1961 COVID-19 Vaccine (#1) COVID-19 Vaccine (#1) [facility] Start: 1960 Depression screening using PHQ-9 (Patient Health Questionnaire 9) score DEPRESSION SCREENING (PHQ9) [facility] Start: 1960 Hepatitis C antibody, confirmatory test HEPATITIS C SCREENING [facility] Start: 1960 HIV screening HIV Screening [facility] Start: 1960 Medicare Annual Wellness Visit Medicare Annual Wellness Visit (AWV) [facility] Start: 1960 Physical therapy management PT Plan of Care [facility] Start: 1960 Protein mass conc Mammogram [facility] Start: 1960 Screening for malignant neoplasm of cervix PAP SMEAR [facility] Start: 1960 Screening for malignant neoplasm of colon [facility] Start: 1960 Screening mammography Mammogram [facility] Start: 1960 Tetanus vaccination TETANUS EVERY 10 YR [facility] Start: 1960 Urine screening for protein Diabetes: Urine Protein Screening [facility] End: 04-16-2023 aPTT in Blood by Coagulation assay APTT Lab Routine NPH (normal pressure hydrocephalus) ([facility]) Abnormal coagulation profile 1 Occurrences starting 04/15/2022 until 04/16/2023 [facility] Comment on above: 1 Occurrences starting 04/15/2022 until 04/16/2023 aPTT in Blood by Coagulation assay APTT Lab Routine NPH (normal pressure hydrocephalus) ([facility]) Abnormal coagulation profile 04/15/2022 4:34 PM EST [facility] End: 04-15-2023 Cell count and differential, cerebrospinal fluid CSF Cell Count with Differential Lab Routine NPH (normal pressure hydrocephalus) ([facility]) 1 Occurrences starting 04/15/2022 until 04/15/2023 [facility] Work Phone: Comment on above: 1 Occurrences starting 04/15/2022 until 04/15/2023 End: 04-15-2023 CSF Bacterial/Viral Detection By PCR (Lumbar Puncture Only) CSF Bacterial/Viral Detection By PCR (Lumbar Puncture Only) Microbiology Routine NPH (normal pressure hydrocephalus) ([facility]) 1 Occurrences starting 04/15/2022 until 04/15/2023 [facility] Comment on above: 1 Occurrences starting 04/15/2022 until 04/15/2023 End: 04-15-2023 CSF VDRL CSF VDRL Lab Routine NPH (normal pressure hydrocephalus) ([facility]) 1 Occurrences starting 04/15/2022 until 04/15/2023 [facility] Comment on above: 1 Occurrences starting 04/15/2022 [...] 1 Occurrences starting 04/15/2022 until 04/15/2023 [facility] Comment on above: 1 Occurrences starting 04/15/2022 until 04/15/2023 End: 09-21-2025 Hemoglobin A1c/Hemoglobin.total in Blood Hemoglobin A1c Lab Routine Type 2 diabetes mellitus without complication, without long-term current use of insulin (HCC) 1 Occurrences starting 09/21/2024 until 09/21/2025 [facility] Work Phone: Comment on above: 1 Occurrences starting 09/21/2024 until 09/21/2025 End: 04-16-2023 INR in Platelet poor plasma by Coagulation assay PT/INR Lab Routine NPH (normal pressure hydrocephalus) Abnormal coagulation profile 1 Occurrences starting 04/15/2022 until 04/16/2023 [facility] Work Phone: Comment on above: 1 Occurrences starting 04/15/2022 until 04/16/2023 INR in Platelet poor plasma by Coagulation assay PT/INR Lab Routine NPH (normal pressure hydrocephalus) (HCC) Abnormal coagulation profile 04/15/2022 4:34 PM EST [facility] End: 07-10-2023 MG Breast - bilateral Screening [facility] Area Work Phone: Comment on above: Once for 1 Occurrences starting 07/10/19 24 until 07/10/2023 End: 09-21-2025 Microalbumin measurement, urine, quantitative Microalbumin/Creatinine Ratio, UR Random Lab Routine Type 2 diabetes mellitus without complication, without long-term current use of insulin (HCC) 1 Occurrences starting 09/21/2024 until 09/21/2025 [facility] Comment on above: 1 Occurrences starting 09/21/2024 until 09/21/2025 End: 09-23-2025 MTB SCREEN MTB SCREEN Lab Routine At risk for tuberculosis 1 Occurrences starting 09/23/2024 until 09/23/2025 [facility] Work Phone: Comment on above: 1 Occurrences starting 09/23/2024 until 09/23/2025 End: 04-15-2023 Protein [Mass/volume] in Cerebral spinal fluid Protein, CSF Lab Routine NPH (normal pressure hydrocephalus) (HCC) 1 Occurrences starting 04/15/2022 until 04/15/2023 [facility] Comment on above: 1 Occurrences starting 04/15/2022 until 04/15/2023 End: 09-09-2025 RF Upper gastrointestinal tract and Small bowel Views W barium contrast PO XR Upper GI With Small Bowel Follow Through Imaging Routine Abnormal CT of the abdomen 1 Occurrences starting 09/09/2024 until 09/09/2025 [facility] Work Phone: Comment on above: 1 Occurrences starting 09/09/2024 until 09/09/2025 End: 02-02-2025 XR Wrist - left 2 Views XR Wrist Left 2 Views Imaging Routine Pain 1 Occurrences starting 02/03/2024 until 02/02/2025 [facility] Work Phone: Comment on above: 1 Occurrences starting 02/03/2024 until 02/02/2025 XR Wrist - left 2 Views XR Wrist Left 2 Views Imaging Routine Pain 02/03/2024 11:12 AM EDT [facility] End: 12-17-2024 XR Wrist - right 2 Views XR Wrist Right 2 Views Imaging Routine Pain 1 Occurrences starting 12/18/2023 until 12/17/2024 [facility] Work Phone: Comment on above: 1 Occurrences starting 12/18/2023 until 12/17/2024 End: 02-02-2025 XR Wrist - right 2 Views XR Wrist Right 2 Views Imaging Routine Pain 1 Occurrences starting 02/03/2024 until 02/02/2025 [facility] Work Phone: Comment on above: 1 Occurrences starting 02/03/2024 until 02/02/2025 Immunizations Immunization Date Immunization Notes Care Provider Fa magoty 07-14-2024 tetanus toxoid, redu amaya diphtheria toxoid, and acellular pertussis vaccine, adsorbed Zara Cristina DO Work Phone: [facility] 03-30-2024 influenza virus vaccine, unspecified formulation Zara Cristina DO Work Phone: [facility] 07-19-2023 tetanus toxoid, redu amaya diphtheria toxoid, and acellular pertussis vaccine, adsorbed Jasmyn Wade DO Work Phone: [facility] 03-26-2023 influenza, injectabl e, quadrivalent, preservative free Rafa Oberhauser DO Work Phone: [facility] Work Phone: 03-26-2023 influenza virus vaccine, unspecified formulation Huy Vasquez PA-C Work Phone: [facility] 02-14-2023 zoster vaccine recombinant Rafa Oberhauser DO Work Phone: [facility] Work Phone: 09-23-2022 zoster vaccine recombinant Rafa Oberhauser DO Work Phone: [facility] Work Phone: 08-09-2022 tetanus toxoid, redu amaya diphtheria toxoid, and acellular pertussis vaccine, adsorbed Antwan Weberkourtneycory Other Phone: [facility] 04-11-2022 Moderna COVID-19 vaccine, bivalent, blue cap/laguna label *Check age/dose* Rafa Oberhauser DO Work Phone: [facility] Work Phone: 03-28-2022 Influenza, injectabl e, Madin Lizy Canine Kidney, preservative free, quadrivalent Rafa Oberhauser DO Work Phone: [facility] Work Phone: 03-21-2021 influenza, injectabl e, quadrivalent, preservative free Rafa Oberhauser DO Work Phone: [facility] Work Phone: 03-24-2020 influenza, injectabl e, quadrivalent, preservative free Rafa Oberhauser DO Work Phone: [facility] Work Phone: 05-03-2019 pneumococcal polysaccharide vaccine, 23 valent Rafa Oberhauser DO Work Phone: [facility] Work Phone: 03-24-2019 influenza, injectabl e, quadrivalent, preservative free Rafa Oberhauser DO Work Phone: [facility] Work Phone: 11-17-2018 tetanus toxoid, redu amaya diphtheria toxoid, and acellular pertussis vaccine, adsorbed Rafa Oberhauser DO Work Phone: [facility] Work Phone: 04-15-2018 influenza, injectabl e, quadrivalent, preservative free Rafa Oberhauser DO Work Phone: [facility] Work Phone: 04-25-2016 influenza, injectabl e, quadrivalent, contains preservative Rafa Oberhauser DO Work Phone: [facility] Work Phone: Payers Date Payer Category Payer Medicare (Managed Care) [facility] [id number] 2023 Unknown [id number] 2017 Medicaid MEDICAID [facility] xxxxxxxxxxxx 2017-Present xxxxxxxxxxxx [id number] 2017 Medicaid [id number]. [id number]. [id number] 2017 Medicaid [id number] 2000 Medicare MEDICARE MEDICAR E PART A & B xxxxxxxxxxx 2000-Present [place] xxxxxxxxxxx [id number] 2000 Medicare 1.2.840.395591. 1.13.385.2. [id number] 2000 Medicare [id number] 1960 Unknown [id number] 2.16.840.1.236373.3.579.2. 902 1960 Unknown [id number] 2.16.840.1.103393.3.579.2. 1068 1960 Unknown [id number] 2.16.840.1.932093.3.579.2. 1068 1960 Unknown [id number] 2.16.840.1.700964.3.579.2. 1068 1960 Unknown [id number] 2.16.840.1.426902.3.579.2. 1068 1960 Unknown [id number] 2.16.840.1.877957.3.579.2. 9 1960 Unknown [id number] 2.16.840.1.868803.3.579.2. 1068 1960 Unknown [id number] 2.16.840.1.719926.3.579.2. 106 1960 Unknown [id number] 2.16.840.1.369995.3.579.2. 1068 1960 Unknown [id number] 2.16.840.1.845510.3.579.2. 1068 1960 Unknown [id number] 2.16.840.1.977178.3.579.2. 1068 1960 Unknown [id number] 2.16.840.1.635990.3.579.2. 1069 1960 Unknown [id number] 2.16.840.1.289824.3.579.2. 9 1960 Unknown [id number] 2.16.840.1.321986.3.579.2. 9 1960 Unknown [id number] 2.16.840.1.930388.3.579.2. 1068 1960 Unknown [id number] 2.16.840.1.784939.3.579.2. 902 1960 Unknown [id number] 2.16.840.1.028157.3.579.2. 4 1960 Unknown [id number] 2.16.840.1.900300.3.579.2. 1243 1960 Unknown [id number] 2.16.840.1.983010.3.579.2. 1243 1960 Unknown [id number] 2.16.840.1.745625.3.579.2. 1243 1960 Unknown [id number] 2.16.840.1.818226.3.579.2. 4 1960 Unknown [id number] 2.16.840.1.237842.3.579.2. 1244 1960 Unknown [id number] 2.16.840.1.636468.3.579.2. 1244 1960 Unknown [id number] 2.16.840.1.642910.3.579.2. 1244 1960 Unknown [id number] 2.16.840.1.609840.3.579.2. 1242 1960 Unknown [id number] 2.16.840.1.386533.3.579.2. 1242 1960 Unknown [id number] 2.16.840.1.641509.3.579.2. 3 1960 Unknown [id number] 2.16.840.1.391402.3.579.2. 1242 1960 Unknown [id number] 2.16.840.1.117377.3.579.2. 1242 1960 Unknown [id number] 2.16.840.1.690021.3.579.2. 1242 1960 Unknown [id number] 2.16.840.1.275403.3.579.2. 1242 1960 Unknown [id number] 2.16.840.1.065094.3.579.2. 1242 1960 Unknown [id number] 2.16.840.1.780344.3.579.2. 1242 1960 Unknown [id number] 2.16.840.1.098376.3.579.2. 1242 1960 Unknown [id number] 2.16.840.1.829444.3.579.2. 1242 1960 Unknown [id number] 2.16.840.1.042855.3.579.2. 1242 1960 Unknown [id number] 2.16.840.1.029505.3.579.2. 1242 1960 Unknown [id number] 2.16.840.1.060502.3.579.2. 1242 1960 Unknown [id number] 2.16.840.1.175586.3.579.2. 1242 1960 Unknown [id number] 2.16.840.1.352216.3.579.2. 1242 1960 Unknown [id number] 2.16.840.1.735484.3.579.2. 1242 1960 Unknown [id number] 2.16.840.1.047163.3.579.2. 1242 1960 Unknown [id number] 2.16.840.1.522906.3.579.2. 1242 1960 Unknown [id number] 2.16.840.1.100681.3.579.2. 1242 1960 Unknown [id number] 2.16.840.1.064161.3.579.2. 1242 1960 Unknown [id number] 2.16.840.1.220729.3.579.2. 1242 1960 Unknown [id number] 2.16.840.1.615053.3.579.2. 1242 1960 Unknown [id number] 2.16.840.1.124655.3.579.2. 1242 1960 Unknown [id number] 2.16.840.1.028388.3.579.2. 1242 1960 Unknown [id number] 2.16.840.1.445391.3.579.2. 1242 1960 Unknown [id number] 2.16.840.1.913826.3.579.2. 1242 1960 Unknown [id number] 2.16.840.1.826835.3.579.2. 1242 1960 Unknown [id number] 2.16840.1.166873.3.579.2. 1242 1960 Unknown [id number] 2.16.840.1.620763.3.579.2. 1242 1960 Unknown [id number] 2.16.840.1.184007.3.579.2. 1242 1960 Unknown [id number] 2.16.840.1.501256.3.579.2. 1242 1960 Unknown [id number] 2.16.840.1.726642.3.579.2. 1242 1960 Unknown [id number] 2.16.840.1.683767.3.579.2. 1243 1960 Unknown [id number] 2.16.840.1.766164.3.579.2. 1242 1960 Unknown [id number] 2.16.840.1.961913.3.579.2. 1243 1960 Unknown [id number] 2.16.840.1.085916.3.579.2. 124 1960 Unknown [id number] 2.16.840.1.217355.3.579.2. 1960 Unknown [id number] 2.16.840.1.339133.3.579.2. 1960 Unknown [id number] 2.16.840.1.332884.3.579.2. 1960 Unknown [id number] 2.16.840.1.695381.3.579.2. 1960 Unknown [id number] 2.16.840.1.678207.3.579.2. 1960 Unknown [id number] 2.16.840.1.289975.3.579.2. 1960 Unknown [id number] 2.16.840.1.162138.3.579.2. 1960 Unknown [id number] 2.16.840.1.796527.3.579.2. 1960 Unknown [id number] 2.16.840.1.097445.3.579.2. 1960 Unknown [id number] 2.16.840.1.550463.3.579.2. 1960 Unknown [id number] 2.16.840.1.167456.3.579.2. 90 1960 Unknown [id number] 2.16.840.1.404142.3.579.2. 903 1960 Unknown [id number] 2.16.840.1.629007.3.579.2. 1960 Unknown [id number] 2.16.840.1.627565.3.579.2. 1960 Unknown [id number] 2.16.840.1.204958.3.579.2. 1960 Unknown [id number] 2.16.840.1.416753.3.579.2. 1960 Unknown [id number] 2.16840.1.949881.3.579.2. 1960 Unknown [id number] 2.840.1.695161.3.579.2. 1960 Unknown [id number] 2.840.1.297396.3.579.2 1960 Unknown [id number] 2.16840.1.746011.3.579.2. 1960 Unknown [id number] 2.16840.1.123831.3.579.2 1960 Unknown [id number] 2.16840.1.225948.3.579.2. 1960 Unknown [id number] 2.16840.1.539774.3.579.2. 1960 Unknown [id number] 2.16.840.1.039279.3.579.2. 1960 Unknown [id number] 2.16.840.1.774214.3.579.2 1960 Unknown [id number] 2.16840.1.301821.3.579.2 1960 Unknown [id number] 2.16840.1.185731.3.579.2. 903 1960 Unknown [id number] 2.16.840.1.868584.3.579.2. 903 1960 Unknown [id number] 2.16.840.1.655601.3.579.2. 903 1960 Unknown [id number] 2.16.840.1.834796.3.579.2. 903 1960 Unknown [id number] 2.16.840.1.279011.3.579.2. 903 1960 Unknown [id number] 2.16.840.1.784354.3.579.2. 90 1960 Unknown [id number] 2.16.840.1.322186.3.579.2. 903 1960 Unknown [id number] 2.16.840.1.847944.3.579.2. 903 1960 Unknown [id number] 2.16.840.1.696477.3.579.2. 903 Medicare [id number] Unknown Social History Date Type Detail Facility Start: 04-10-2017 Tobacco smoking status [facility] Unknown if ever smoked [facility] Work Phone: Start: 1960 Sex Assigned At Not on file [facility] Work Phone: Start: 04-27-2019 End: 03-28-2022 Tobacco smoking status NHIS Never smoker [facility] Start: 04-27-2019 End: 09-21-2024 Alcohol intake Ex-drinker (finding) [facility] Start: 04-27-2019 End: 07-19-2024 Cigarette pack-years [facility] Work Phone: Start: 04-27-2019 End: 03-28-2022 Tobacco use and exposure Smokeless tobacco non-user [facility] Start: 03-18-2022 End: 07-09-2024 Exposure to SARS-CoV-2 (event) Not sure [facility] Start: 08-01-2022 End: 07-19-[address] [facility] Work Phone: Start: 11-03-2018 Gender identity Identifies as female gender (finding) [facility] Start: 04-21-2023 End: 07-09-2024 Alcohol intake Lifetime non-drinker (finding) [facility] Work Phone: Start: 06-23-2024 Sexual orientation Heterosexual (finding) [facility] Has the electric, ga s, oil, or water company threatened to shut off services in your home in past 12Mo Patient unable to answer [facility] Has the electric, ga s, oil, or water company threatened to shut off services in your home in past 12Mo No [facility] (I/We) worried wheth er (my/our) food would run out before (I/we) got money to buy more. Never true [facility] Clinical Notes 08-01-2022 to 12-06-2024 Telephone Encounter - Lupe Ochoa LPN - 12/06/2024 3:02 PM EDTTelephone Encounter - Lupe Ochoa LPN - 12/06/2024 3:02 PM Marcos Singh MD - 11/11/2024 11:03 AM EDTAttachments Note Date & Type Note Facility 12-06-2024 Telephone encounter Note Pt home calling for this med, previous pcp rx. Can you please send [facility] 12-06-2024 Miscellaneous Notes Pt home calling for this med, previous pcp rx. Can you please send documented in this encounter [facility] 11-11-2024 Note Shaji Esquivel 64 y.o. 1960 [...] second test should be considered NIL 10/08/2024 0.73485 IU/mL Final Mitogen Minus Nil 10/08/2024 2.26453 IU/mL Final TB1 Minus Nil 10/08/2024 -0.98359 0.00 - 0.34 IU/mL Final TB2 Minus Nil 10/08/2024 0.09734 0.00 - 0.34 IU/mL Final Interferon gamma [...] Unable To Ans (more content not included)... [facility] 11-11-2024 History of Present illness Narrative Shaji [...] second test should be considered NIL 10/08/2024 0.62491 IU/mL Final Mitogen Minus Nil 10/08/2024 2.24838 IU/mL Final TB1 Minus Nil 10/08/2024 -0.08357 0.00 - 0.34 IU/mL Final TB2 Minus Nil 10/08/2024 0.39639 0.00 - 0.34 IU/mL Final Interferon gamma [...] answer Stress: Patient Unable To Answer (07/13/2024) [place] [employer] - Occupational Stress Questionnaire [...] AND ALLOW TO DISSOLVE AT BEDTIME . cjwgdatz-xjz-zxihmoz fumarate 15 mg iron Tab Take 1 [...] this visit. documented in this encounter [facility] 10-25-2024 Note Ameena Ruiz PM Patient Name: [...] answer Stress: Patient Unable To Answer (07/13/2024) [place] [employer] - Occupational Stress Questionnaire [...] intact. Protective sensation is diminished using the [place] Piotr monofilament. Dermatologic: The right great toenail [...] AUTHENTICATED BY ELIZABETH KIMBLE, ON 10/25/2024 11:10:27 [facility] 10-25-2024 History of Present illness Narrative Images [...] answer Stress: Patient Unable To Answer (07/13/2024) [place] [employer] - Occupational Stress Questionnaire [...] intact. Protective sensation is diminished using the [place] Piotr monofilament. Dermatologic: The right great toenail [...] & Surgeon documented in this encounter [facility] 10-12-2024 History of Present illness Narrative MEDICATION RECONCILIATION COMPLETED USING REM MED SHEETS. MED SHEETS TITLED ACTIVE ORDERS OF 10/01/2024. MEDICATIONS NOT LISTED ON REM LIST MARKED FOR REVIEW. documented in this encounter [facility] 10-11-2024 History of Present illness Narrative Spoke to Camelia, review results. Faxed results to [phone]. documented in this encounter [facility] 09-21-2024 Evaluation + Plan note Associated Problem(s): Abnormal CT of the abdomen Incidental finding edematous appearance of duodenum infusional loop in upper abdomen probably nonspecific. She has met with Dr. Jones who ordered GI series with small bowel follow-through, deferred EGD for now. [facility] 09-21-2024 Miscellaneous Notes Associated Problem(s): Abnormal CT [...] Parkinson's disease increases fall risk. Lives in retirement. Staff tries to have aide assist with walking all the time; patient sometimes up without alerting staff. 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 [...] urine microalbumin documented in this encounter [facility] 09-21-2024 Evaluation + Plan note Associated Problem(s): Recurrent falls Multiple falls recently may have been due to E. coli UTI, treated with Keflex, completed today. Concern for interaction between Sinemet and olanzapine. She has followed up with psychiatry and they have stopped olanzapine. Shuffling gait with Parkinson's disease increases fall risk. Lives in retirement. Staff tries to have aide assist with walking all the time; patient sometimes up without alerting staff. 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 - She has just completed physical therapy and is walking better - Wear closed footwear with non-slip bottom - No area rugs - Keep cords clear of walkways - Walk with staff assistance only [facility] 09-21-2024 Evaluation + Plan note Associated Problem(s): [...] check updated A1c and urine microalbumin [facility] 09-21-2024 History of Present illness Narrative Assessment/Plan: [...] Parkinson's disease increases fall risk. Lives in retirement. Staff tries to have aide assist with walking all the time; patient sometimes up without alerting staff. 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 [...] follow-up chronic conditions. She is accompanied by retirement staff. Shaji is in good spirits today. [...] for now. Recurrent falls Completed PT 09/08/24. [facility] staff reports she is walking better. Denies [...] Evans DO documented in this encounter [facility] 09-21-2024 Note Assessment/Plan: Type 2 diabetes mellitus [...] Parkinson's disease increases fall risk. Lives in retirement. Staff tries to have aide assist with walking all the time; patient sometimes up without alerting staff. 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 [...] follow-up chronic conditions. She is accompanied by retirement staff. Shaji is in good spirits today. [...] for now. Recurrent falls Completed PT 09/08/24. [facility] staff reports she is walking better. Denies [...] AUTHENTICATED BY ZARA EVANS, ON 09/21/2024 12:39:07 [facility] 09-15-2024 Telephone encounter Note LAST OV 07/29/24. NEXT OV 09/21/24. [facility] 09-15-2024 Miscellaneous Notes LAST OV 07/29/24. NEXT OV 09/21/24. documented in this encounter [facility] 09-09-2024 Note Shaji Esquivel 64 y.o. 1960 [...] Urine 07/19/2024 Cloudy (A) Clear Final Specific [place] 07/19/2024 1.028 (H) 1.005 - 1.025 Final [...] /hpf Final Mucus, (more content not included)... [facility] 09-09-2024 History of Present illness Narrative Shaji [...] Urine 07/19/2024 Cloudy (A) Clear Final Specific [place] 07/19/2024 1.028 (H) 1.005 - 1.025 Final [...] answer Stress: Patient Unable To Answer (07/13/2024) [place] [employer] - Occupational Stress Questionnaire [...] total) on top of tongue nightly . pkxfdhur-nwk-zyayubu fumarate 15 mg iron Tab Take 1 [...] this visit. documented in this encounter [facility] 09-08-2024 History of Present illness Narrative Images from the original note were not included. [facility] DAILY TREATMENT NOTE/DISCHARGE Today's Date [...] Shaji mentioned that she had a birthday green party this past weekend. Otherwise, nothing new to report or updates to provide. Objective Treatments: Physical Therapy Exercise Log - 09/08/24 1011 OTHER Precautions/Contraindications Parkinson's disease, unspecified whether dyskinesia present, unspecified whether manifestations fluctuate (HCC). Frequent Falls. Notes Visit 8: 10:15-11:00 Vitals Eval Date: 08/02/2024. POC: 2x4 Therapeutic Exercise (62499) Intervention Access Code: [email or web address] URL: [email or web address] Date: 08/27/2024 Prepared by: Melissa Sena Exercises [...] and visual cues for completion. Neuro Re-Ed (33000) Intervention Discharge Summary/Goal Reassessment x45 mins Parameters [...] seated position throughout the day. Functional Activity (35355) Intervention Repeated STSs from chair with unilateral [...] Exercises Add more exercises? Yes Gait Training (46623) Intervention Pt ambulating for short distances (approx [...] will complete the 5 times sit to rn clinical coordinator 24 seconds or less without the use [...] as needed. Julianne Buck, PT State License, [id number] Cosigned by Shelley Maldonado PA-C at 09/14/2024 11:41 AM EDT documented in this encounter [facility] 09-06-2024 History of Present illness Narrative Documentation received for pt. Provider reviewed and signed. Faxed back to number provided and sent to [facility] to scan to pt chart. documented in this encounter [facility] 09-02-2024 History of Present illness Narrative Images from the original note were not included. [facility] DAILY TREATMENT NOTE Today's Date [...] Eval Date: 08/02/2024. POC: 2x4 Therapeutic Exercise (83450) Intervention Access Code: [email or web address] URL: [email or web address] Date: 08/27/2024 Prepared by: Melissa Sena Exercises [...] cues for completion Intervention -- Neuro Re-Ed (40122) Intervention Fwd ambulation over hockey sticks inside parallel bars for 2 laps to facilitate improved step length and foot clearance as well as improved dynamic balance with decreased UE support. Pt completing first lap with BUE support with progression to no UE support on second trial with pt demo'g improved ability to complete without UE support. Functional Activity (23021) Intervention Pt completing transfers this date with CGA-Danielle. Parameters Pt demos decreased activity tolerance with all activities requiring several seated rest breaks. Additional Exercises Add more exercises? Yes Gait Training (07136) Intervention Pt ambulating short distances throughout therapy [...] will complete the 5 times sit to rn clinical coordinator 24 seconds or less without the use [...] at home. 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 History of Present Illness Date of [...] Parkinson's Disease, and subarachnoid hemorrhage, presented to [facility] ED from retirement assisted living facility for evaluation of multiple falls that been progressively worsening over the past 2 weeks. No specific alleviating or aggravating factors. At the time of admission, per compensation agent, patient fell from chair hit back of [...] prevent aspiration which was determined by a DIE CUTTING MACHINE OPERATOR she used to see in the past, [...] above number. Soto Daly OTR/L STATE LICENSE, [id number] documented in this encounter [facility] 08-04-2024 Evaluation + Plan note Associated Problem(s): Recurrent falls Multiple falls recently may have been due to E. coli UTI, treated with Keflex, completed today. Concern for interaction between Sinemet and olanzapine. She has followed up with psychiatry and reduced olanzapine dose to 5 mg. Shuffling gait with Parkinson's disease increases fall risk. Lives in retirement. Staff tries to have aide assist with walking all the time; patient sometimes up without alerting staff. 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 - She is beginning physical therapy - Wear closed footwear with non-slip bottom - No area rugs - Keep cords clear of walkways - Walk with staff assistance only [facility] 08-04-2024 Miscellaneous Notes Associated Problem(s): Recurrent falls Multiple falls recently may have been due to E. coli UTI, treated with Keflex, completed today. Concern for interaction between Sinemet and olanzapine. She has followed up with psychiatry and reduced olanzapine dose to 5 mg. Shuffling gait with Parkinson's disease increases fall risk. Lives in retirement. Staff tries to have aide assist with walking all the time; patient sometimes up without alerting staff. 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 - She is beginning physical therapy - Wear closed footwear with non-slip bottom - No area rugs - Keep cords clear of walkways - Walk with staff assistance only documented in this encounter [facility] 08-02-2024 History of Present illness Narrative Images from the original note were not included. 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 History of Present Illness Subjective History: The patient, Shaji, is a 63 y.o. Female presenting to outpatient neurological physical therapy at [facility] on 08/02/2024 s/p a recent 4 day hospital stay for a fall that resulted in hitting the back of her head on a chair. Per the patient's ED note from 07/19, Shaji has a past medical history of hypertension, hyperlipidemia, diabetes, Parkinson's Disease, and subarachnoid hemorrhage, presents to the emergency department from retirement assisted living facility for evaluation of multiple falls that been progressively worsening over the past 2 weeks. No specific alleviating or aggravating factors. Today, per compensation agent, patient fell from chair hit back of [...] prevent aspiration which was determined by a DIE CUTTING MACHINE OPERATOR she used to see in the past, [...] Current Home Environment: Setup: single story house ([facility]) Entry: no steps First floor: bedroom and [...] Transfers: Sit to stand: Insufficient forward flexion, [place] on UE, Increased energy expenditure and Min A Stand to sit: Min A, [place] on UE, Insufficient forward flexion, Decreased eccentric control and Increased energy expenditure Stand/squat pivot: Insufficient forward flexion, [place] on UE and Increased energy expenditure Sitting [...] Treatments: Physical Therapy Exercise Log - 08/03/24 4652 OTHER Precautions/Contraindications Parkinson's disease, unspecified whether dyskinesia present, unspecified whether manifestations fluctuate (HCC). Frequent Falls. Notes Visit 1: 12:30-1:15 Vitals Eval Date: 08/02/2024. POC: 2x4 Neuro Re-Ed (77395) Intervention Initial evaluation w/ education only x45 mins PT Treatment Times Neuro Re-Ed Total Time 45 12:30-1:15 Direct Treatment Time 45 Total Treatment Time 45 Treatment Plan: Frequency of Visits: twice per week Duration: 4 weeks Interventions: Therapeutic Exercise (19140), Neuromuscular Re-Education (55087), Manual Therapy (76805), Therapeutic/ Functional Activities (96534), Gait Training (86845), Self Care (25476), and Canalith Repositioning Treatment (84452) Rehab Potential: good Physical Therapy Neuro Goals: [...] will complete the 5 times sit to rn clinical coordinator 24 seconds or less without the use [...] at this time were answered. CPT Code 55145 Low 02318 Moderate 40202 High History 0 1-2 3+ Comorbidities: anxiety, [...] Impression: . Shaji Esquivel presents to [facility] outpatient neurological rehab services s/p experiencing multiple [...] to 09/28/2024. Julianne Buck, TAY[place] State License, [id number] documented in this encounter [facility] 07-29-2024 History of Present illness Narrative Assessment/Plan: Recurrent falls Multiple falls recently may have been due to E. coli UTI, treated with Keflex, completed today. Concern for interaction between Sinemet and olanzapine. She has followed up with psychiatry and reduced olanzapine dose to 5 mg. Shuffling gait with Parkinson's disease increases fall risk. Lives in retirement. Staff tries to have aide assist with walking all the time; patient sometimes up without alerting staff. 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 [...] Evans DO documented in this encounter [facility] 07-29-2024 Note Assessment/Plan: Recurrent falls Multiple falls recently may have been due to E. coli UTI, treated with Keflex, completed today. Concern for interaction between Sinemet and olanzapine. She has followed up with psychiatry and reduced olanzapine dose to 5 mg. Shuffling gait with Parkinson's disease increases fall risk. Lives in retirement. Staff tries to have aide assist with walking all the time; patient sometimes up without alerting staff. 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 [...] AUTHENTICATED BY ZARA EVANS, ON 08/04/2024 02:35:57 [facility] 07-27-2024 Note Ameena Ruiz PM Patient Name: [...] answer Stress: Patient Unable To Answer (07/13/2024) [place] [employer] - Occupational Stress Questionnaire [...] intact. Protective sensation is diminished using the [place] Piotr monofilament. Dermatologic: The right great toenail [...] Kimble, BHUMI, MS (more content not included)... [facility] 07-27-2024 History of Present illness Narrative Images [...] answer Stress: Patient Unable To Answer (07/13/2024) [place] [employer] - Occupational Stress Questionnaire [...] intact. Protective sensation is diminished using the [place] Piotr monofilament. Dermatologic: The right great toenail [...] & Surgeon documented in this encounter [facility] 07-23-2024 Note HMS DISCHARGE SUMMAR Y Shaji Esquivel Admitted: 07/19/2024 Discharge Date: 07/25/24 PCP Handoff Recommended Outpatient Testing Follow-up with GI Follow up with psychiatry Results Pending At Discharge None Clinical Summary Shaji Esquivel is a 63 y.o. female patient of aZra Evans DO with history of Parkinson's disease, schizophrenia, HTN, HLD, GERD, NIDDM2, who presented to [facility] on 07/19/2024 with frequent falls. Frequent [...] Remeron Reached out to Dr. Sabillon at [facility] due to interaction with Sinemet and Zyprexa [...] specific GI complaints Outpatient GI evaluation Continue BABY SITTER bowel regimen Sternal Fracture CT with evidence [...] disintegrating tablet Com (more content not included)... [facility] 07-23-2024 Note [facility] PROGRESS NOTE Assessment and Plan Shaji Esquivel is a 63 y.o. female patient of Zara Evans DO with history of Parkinson's disease, schizophrenia, HTN, HLD, GERD, NIDDM2, who presented to [facility] on 07/19/2024 with frequent falls. Frequent [...] Remeron Reached out to Dr. Sabillon at [facility] due to interaction with Sinemet and Zyprexa [...] hospitalization due to: awaiting acceptance back to retirement Discharge location: return to retirement Quality Measures DVT prophylaxis: IPCs Contreras catheter: [...] AUTHENTICATED BY SHELLEY MALDONADO, ON 07/23/2024 11:54:59 [facility] 07-22-2024 Note [facility] PROGRESS NOTE Assessment and Plan Shaji Esquivel is a 63 y.o. female patient of Zara Evans DO with history of Parkinson's disease, schizophrenia, HTN, HLD, GERD, NIDDM2, who presented to [facility] on 07/19/2024 with frequent falls. Frequent [...] Remeliudn Reached out to Dr. Sabillon at [facility] due to interaction with Sinemet and Zyprexa [...] AUTHENTICATED BY SHELLEY MALDONADO, ON 07/22/2024 12:51:24 [facility] 07-21-2024 Note [facility] PROGRESS NOTE Assessment and Plan Shaji Esquivel is a 63 y.o. female patient of Zara Evans DO with history of Parkinson's disease, schizophrenia, HTN, HLD, GERD, NIDDM2, who presented to [facility] on 07/19/2024 with frequent falls. Frequent Fall Parkinson's Disease Balance Disorder Continue Sinemet. Sinemet has known interaction with Zyprexa, which may worsen PD symptoms. Psychiatrist plans to switch her to Nuplazid as outpatient. See below. Fall precautions PT/OT Care management Follows with Dr. Ortiz for neurology Schizophrenia Continue Zyprexa and Remeron Reached out to Dr. Sabillon at [facility] due to interaction with Sinemet and Zyprexa [...] therapy evals Discharge location: likely return to retirement Quality Measures DVT prophylaxis: IPCs Contreras catheter: [...] AUTHENTICATED BY SHELLEY MALDONADO, ON 07/21/2024 11:29:18 [facility] 07-20-2024 Note HMS PROGRESS NOTE Assessment and Plan Shaji Esquivel is a 63 y.o. female patient of Zara Evans DO with history of Parkinson's disease, schizophrenia, HTN, HLD, GERD, NIDDM2, who presented to [facility] on 07/19/2024 with frequent falls. Frequent Fall Parkinson's Disease Balance Disorder Continue Sinemet. Sinemet has known interaction with Zyprexa, which may worsen PD symptoms. Psychiatrist plans to switch her to Nuplazid as outpatient. See below. Fall precautions PT/OT Care management Follows with Dr. Ortiz for neurology Schizophrenia Continue Zyprexa and Remeron Reached out to Dr. Sabillon at [facility] due to interaction with Sinemet and Zyprexa [...] therapy evals Discharge location: likely return to retirement Quality Measures DVT prophylaxis: IPCs Contreras catheter: [...] AUTHENTICATED BY SHELLEY MALDONADO, ON 07/20/2024 11:24:59 [facility] 07-19-2024 Note HMS HISTORY AND PHYS ICAL -- [facility] Patient Name: Shaji Esquivel : 1960 MR #: [id number] Admit Date: 07/19/2024 Physicians: Zara Evans DO (Family); No ref. provider found (Referring) Shaji Esquivel is a 63 y.o. female patient of Zara Evans DO with history of Parkinson's disease, schizophrenia, HTN, HLD, GERD, NIDDM2, who presented to [facility] on 07/19/2024 with frequent falls. Frequent Fall Parkinson's Disease Balance Disorder Continue Sinemet. Sinemet has known interaction with Zyprexa, which may worsen PD symptoms. Psychiatrist plans to switch her to Nuplazid as outpatient. See below. Fall precautions PT/OT Care management Follows with Dr. Ortiz for neurology Schizophrenia Continue Zyprexa and Remeron Reached out to Dr. Sabillon at [facility] due to interaction with Sinemet and Zyprexa [...] HTN, HLD, GERD, NIDDM2, who presented to [facility] on 07/19/2024 with frequent falls. Progressively [...] AUTHENTICATED BY KIRILL CRANDALL ON 07/19/2024 10:34:59 [facility] 07-15-2024 Evaluation + Plan note Associated Problem(s): Primary osteoarthritis involving multiple joints Voltaren gel 4 times daily to painful joints including bilateral hips and knees. [facility] 07-15-2024 Miscellaneous Notes Associated Problem(s): Primary osteoarthritis [...] Parkinson's disease increases fall risk. Lives in retirement. Staff tries to have aide assist with walking all the time; patient sometimes up without alerting staff. 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 - Wear closed footwear with non-slip bottom - No area rugs - Keep cords clear of walkways - Walk with staff assistance documented in this encounter [facility] 07-15-2024 Evaluation + Plan note Associated Problem(s): Recurrent falls Mechanical fall 07/09/2024 when stepping up into a van. She suffered contusions to her right hip and right knee, but no fractures per x-rays in ER. Continue Voltaren gel to painful areas. Shuffling gait with Parkinson's disease increases fall risk. Lives in retirement. Staff tries to have aide assist with walking all the time; patient sometimes up without alerting staff. 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 - Wear closed footwear with non-slip bottom - No area rugs - Keep cords clear of walkways - Walk with staff assistance [facility] 07-13-2024 Note Assessment/Plan: Recurrent falls Mechanical fall 07/09/2024 when stepping up into a van. She suffered contusions to her right hip and right knee, but no fractures per x-rays in ER. Continue Voltaren gel to painful areas. Shuffling gait with Parkinson's disease increases fall risk. Lives in retirement. Staff tries to have aide assist with walking all the time; patient sometimes up without alerting staff. 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 [...] acute visit for fall. Patient is a retirement resident and presents with nursing staff. Patient [...] AUTHENTICATED BY ZARA EVANS, ON 07/15/2024 07:40:58 [facility] 07-13-2024 History of Present illness Narrative Assessment/Plan: Recurrent falls Mechanical fall 07/09/2024 when stepping up into a van. She suffered contusions to her right hip and right knee, but no fractures per x-rays in ER. Continue Voltaren gel to painful areas. Shuffling gait with Parkinson's disease increases fall risk. Lives in retirement. Staff tries to have aide assist with walking all the time; patient sometimes up without alerting staff. 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 [...] acute visit for fall. Patient is a retirement resident and presents with nursing staff. Patient [...] Evans DO documented in this encounter [facility] 07-09-2024 Emergency department Note Images from the [...] Alexys Moran 07/09/2024 12:15 PM Dictation workstation: [id number] XR hip right with pelvis when performed 2 or 3 views Final Result No acute fracture seen in the right hip. If there is persistent clinical concern CT can be performed for further evaluation MACRO: None Signed by: Alexys Moran 07/09/2024 12:14 PM Dictation workstation: [id number] Pt course which Intervention and treatment included [...] knee and lower leg, initial encounter HYDROcodone-acetaminophen ([place]) 5-325 mg tablet diclofenac sodium (Voltaren) 1 % gel Knee Brace, Hinged --- 07/09/24 at 11:24 AM - Miles He DO Internal & Emergency Medicine Miles He DO Resident 07/09/24 1221 [address] in this encounter [facility] Work Phone: 07-09-2024 Physician Emergency department [...] Alexys Moran 07/09/2024 12:15 PM Dictation workstation: [id number] XR hip right with pelvis when performed 2 or 3 views Final Result No acute fracture seen in the right hip. If there is persistent clinical concern CT can be performed for further evaluation MACRO: None Signed by: Alexys Moran 07/09/2024 12:14 PM Dictation workstation: [id number] Pt course which Intervention and treatment included [...] knee and lower leg, initial encounter HYDROcodone-acetaminophen ([place]) 5-325 mg tablet diclofenac sodium (Voltaren) 1 % gel Knee Brace, Hinged --- 07/09/24 at 11:24 AM - Miles He DO Internal & Emergency Medicine Miles He DO Resident 07/09/24 1221 [facility] Work Phone: 06-28-2024 History of Present illness Narrative Subjective Patient ID: Shaji Esquivel is a 63 y.o. female who presents for Follow-up (3 MONTH/Pt states she is not feeling well today ). HPI Patient is here today for 3 mo follow up with retirement staff member. Pt has finished PT. Pt [...] is not feeling well, has no appetite. [facility] staff says that she always generally has [...] 2. Schizophrenia - sees Dr Sabillon at [facility]seed - on cogentin - on remeron - [...] [R26.89] Balance disorder documented in this encounter [facility] Work Phone: 06-24-2024 Evaluation + Plan note Associated Problem(s): Recurrent falls Shuffling gait with Parkinson's disease increases fall risk. Lives in retirement. Staff tries to have aide assist with walking all the time; patient sometimes up without alerting staff. 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 - Wear closed footwear with non-slip bottom - No area rugs - Keep cords clear of walkways - Walk with staff assistance [facility] 06-24-2024 Miscellaneous Notes Associated Problem(s): Recurrent falls Shuffling gait with Parkinson's disease increases fall risk. Lives in retirement. Staff tries to have aide assist with walking all the time; patient sometimes up without alerting staff. 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 [...] q6 months documented in this encounter [facility] 06-24-2024 Evaluation + Plan note Associated Problem(s): Schizophrenia (HCC) Follows with psych, Dr. Estrada. On benztropine, mirtazapine, olanzapine. Nurse reports intermittent behaviors, but manageable. [facility] 06-24-2024 Evaluation + Plan note Associated Problem(s): Parkinson's disease (HCC) Follows with neurologist - Dr. Ortiz. On carbidopa-levodopa 25-100, 2 tablets TID. With shuffling gait increasing fall risk. Walks without device at home, but with aide present. No concerns today. [facility] 06-24-2024 Evaluation + Plan note Associated [...] months, will check A1c and urine microalbumin [facility] 06-24-2024 Evaluation + Plan note Associated Problem(s): Hypertension Goal <140/90. Current therapy with amlodipine 2.5 mg daily. BP 134/83 today. Not on ACEi or ARB, though diabetic. Will discuss switching in the future for renal protection. - Check CMP q6 months [facility] 06-23-2024 Note Assessment/Plan: Hypertension Goal <140/90. [...] Parkinson's disease increases fall risk. Lives in retirement. Staff tries to have aide assist with walking all the time; patient sometimes up without alerting staff. 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 [...] Accompanied by her nurse and the nurse investigation manager from her retirement. Previous PCP Dr. Jacinto at . PMH: HTN, HLD, SAH, DM2, hypothyroidism, GERD, CKD, schizophrenia, Parkinson's. 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 Kimble Parkinson's On levodopa-carbidopa Neurologist - Dr. Ortiz Schizophrenia Psych -Dr. Estrada Stacker Operator Dr. Kimble Symptoms started 2 weeks ago. [...] AUTHENTICATED BY ZARA EVANS, ON 06/24/2024 01:29:15 [facility] 06-23-2024 History of Present illness Narrative Assessment/Plan: [...] Parkinson's disease increases fall risk. Lives in retirement. Staff tries to have aide assist with walking all the time; patient sometimes up without alerting staff. 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 [...] Accompanied by her nurse and the nurse investigation manager from her retirement. Previous PCP Dr. Jacinto at . PMH: HTN, HLD, SAH, DM2, hypothyroidism, GERD, CKD, schizophrenia, Parkinson's. 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 Kimble Parkinson's On levodopa-carbidopa Neurologist - Dr. Ortiz Schizophrenia Psych -Dr. Estrada Stacker Operator Dr. Kimble Symptoms started 2 weeks ago. [...] Evans DO documented in this encounter [facility] 04-27-2024 Note Ameena Ruiz PM Patient Name: [...] intact. Protective sensation is diminished using the [place] Piotr monofilament. Dermatologic: The right great toenail [...] AUTHENTICATED BY ELIZABETH KIMBLE, ON 04/27/2024 10:21:20 [facility] 04-27-2024 History of Present illness Narrative Images [...] intact. Protective sensation is diminished using the [place] Piotr monofilament. Dermatologic: The right great toenail [...] & Surgeon documented in this encounter [facility] 03-29-2024 History of Present illness Narrative Subjective Patient ID: Shaji Esquivel is a 63 y.o. female who presents for Follow-up (3 month) and Fall. Fall Patient is here today for 3 mo follow up Pt reports that she has generalized pain everywhere. Is here today with retirement staff who state that she always complains [...] 2. Schizophrenia - sees Dr Sabillon at [facility] - on cogentin - on remeron - [...] or fluctuating manifestations documented in this encounter [facility] Work Phone: 02-16-2024 Note Ameena Ruiz [...] intact. Protective sensation is diminished using the [place] Piotr monofilament. Dermatologic: The right great toenail [...] AUTHENTICATED BY ELIZABETH KIMBLE, ON 02/16/2024 04:02:37 [facility] 02-16-2024 History of Present illness Narrative Images [...] intact. Protective sensation is diminished using the [place] Piotr monofilament. Dermatologic: The right great toenail [...] & Surgeon documented in this encounter [facility] 02-03-2024 Note [address] (11) [facility] [address] [facility] [id number] Shaji Esquivel is a 63 y.o. female [...] AUTHENTICATED BY SACHIN MORALES, ON 02/03/2024 13:07:29 [facility] 02-03-2024 History of Present illness Narrative [address] (11) [facility] [address] [facility] [id number] Shaji Esquivel is a 63 y.o. female [...] Morales MD documented in this encounter [facility] 01-29-2024 Hospital Discharge instructions Darin Trujillo MD - 01/29/2024 8:46 AM EDT Ice MOTRIN FOR PAIN AND SWELLING DAVID WRAP TO KNEE DENTAL FOLLOW UP FOR INCISOR INJRY ORTHO FOLLOW UP FOR CHRONIC RIGHT ULNA SUBLUXATION The following attachments cannot be sent through Care Everywhere.Minor Contusion ED (Serbian)documented in this encounter [facility] Work Phone: 01-29-2024 Emergency department Note [...] Comments: Patient is awake alert coherent cooperative [place] Coma Scale 15 in no acute discomfort [...] Pito Kaur 01/29/2024 8:37 AM Dictation workstation: [id number] XR forearm right 2 views Final Result No acute fracture. Persistent dorsal subluxation of the distal ulna in relation to the distal radius; correlate clinically. Signed by: Pito Kaur 01/29/2024 8:33 AM Dictation workstation: [id number] Procedures Medical Decision Making Wolof diagnosis included forearm fracture forearm contusion right [...] MD 01/29/24 [address] this encounter [facility] Work Phone: 01-29-2024 Physician Emergency department [...] Pito Kaur 01/29/2024 8:37 AM Dictation workstation: [id number] XR forearm right 2 views Final Result No acute fracture. Persistent dorsal subluxation of the distal ulna in relation to the distal radius; correlate clinically. Signed by: Pito Kaur 01/29/2024 8:33 AM Dictation workstation: [id number] Procedures Medical Decision Making Wolof diagnosis included forearm fracture forearm contusion right [...] 01/29/24 0854 Darin Trujillo MD 01/29/[address] [facility] Work Phone: 01-21-2024 Instructions Huy Vasquez [...] any questions. documented in this encounter [facility] 01-21-2024 Note Neurosurgery Progres s Note Assessment/Plan: [...] significant intellectual impairment who lives at a retirement under the guardianship of the [facility]. 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 No garcia AUTHENTICATED BY HUY VASQUEZ, ON 01/21/2024 12:48:50 [facility] 01-21-2024 History of Present illness Narrative Neurosurgery [...] significant intellectual impairment who lives at a retirement under the guardianship of the state. 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 No garcia documented in this encounter [facility] 01-08-2024 Instructions Mina Ortiz MD - 01/08/2024 [...] 12 months. documented in this encounter [facility] 01-08-2024 History of Present illness Narrative Neurology Outpatient Consult [facility] [address] [place] [address] (phone)/[phone] (fax) Patient: Shaji Esquivel Date of : [...] plantar stimulation. documented in this encounter [facility] 01-08-2024 Note Neurology Outpatient Consult [facility] [address] [place] [address] (phone)/[phone] (fax) Patient: Shaji Esquivel Date of : [...] carbidopa-levodopa (Sinemet) 25-100 (more content not included)... [facility] 12-29-2023 History of Present illness Narrative Subjective [...] fluctuating manifestations (Multi) documented in this encounter [facility] Work Phone: 12-24-2023 Note [address] (11) [facility] [address] [facility] [phone] Shaji Esquivel is a [...] AUTHENTICATED BY SACHIN MORALES, ON 12/24/2023 10:08:02 [facility] 12-24-2023 History of Present illness Narrative [address] (11) [facility] [address] [facility] [phone] Shaji Esquivel is a 63 y.o. female [...] Morales MD documented in this encounter [facility] 12-17-2023 History of Present illness Narrative Subjective [...] -PT/OT referrals placed documented in this encounter [facility] Work Phone: 12-16-2023 Note Trauma Follow Up Not e Patient Name: Shaji Esquivel [facility]: [id number] [id number] Chief Complaint: [place]: 63-year-old female with a history of a [...] AUTHENTICATED BY KIRK GODFREY, ON 12/16/2023 14:14:28 [facility] 12-16-2023 History of Present illness Narrative Trauma Follow Up Note Patient Name: Shaji Esquivel MR #: [id number] Chief Complaint: [place]: 63-year-old female with a history of a [...] acute issues. documented in this encounter [facility] 12-05-2023 Note Neurosurgery Inpatie nt Follow-up 12/05/2023 Vel Benavidez MD [facility] Patient: Shaji Esquivel Date of : [...] AUTHENTICATED BY VEL BENAVIDEZ, ON 12/05/2023 12:30:03 [facility] 12-04-2023 Note Pre-Procedure Physic ruthy Note for Procedures with Moderate or Deep Sedation Patient Name: Shaji Esquivel MR #: [id number] : 1960 Informed Consent process completed. I have reviewed the H&P and there are no changes. Heart, Lungs, and Airway assessment completed. Sedation Plan: Moderate Pre-Sedation Assessment ASA Classification: ASA 3: A patient with severe systemic disease. Mallampati Classification: Class II: Partial uvula and soft palate are visualized 12/04/2023 3:09 PM Duc Jaramillo M.D. Attending Physician [facility] 12/04/2023 Portions of this note may have been dictated utilizing voice recognition software. Unfortunately this leads to occasional typographical errors. If questions arise please do not hesitate to contact my office for clarification. AUTHENTICATED BY DUC JARAMILLO, ON 12/04/2023 15:09:56 [facility] 10-14-2023 History of Present illness Narrative [...] intact. Protective sensation is diminished using the [place] Piotr monofilament. Dermatologic: The right great toenail [...] & Surgeon documented in this encounter [facility] 07-15-2023 History of Present illness Narrative Images [...] intact. Protective sensation is diminished using the [place] Piotr monofilament. Dermatologic: The right great toenail [...] foot examination, type 2 DM, encounter for ([facility]) 2. Diabetic peripheral neuropathy ([facility]) 3. Onychodystrophy 4. Onychomycosis 5. Pain due [...] & Surgeon documented in this encounter [facility] 06-25-2023 Telephone encounter Note I called Fatuma at [phone]. She gave me the fax number of [phone]> Fax sent. She stated understanding. [facility] 06-25-2023 Miscellaneous Notes I called Fatuma at [phone]. She gave me the fax number of [phone]> Fax sent. She stated understanding. documented in this encounter [facility] 06-23-2023 Instructions Mina Ortiz MD - 06/23/2023 [...] 6 months. documented in this encounter [facility] 06-23-2023 History of Present illness Narrative Neurology Outpatient Consult [facility] [address] [place] [address] (phone)/[phone] (fax) Patient: Shaji Esquivel Date of : [...] plantar stimulation. documented in this encounter [facility] 04-21-2023 History of Present illness Narrative Subjective Patient ID: Shaji Esquivel is a 62 y.o. female who presents for Establish Care (TECHNOLOGY INFUSION SPECIALIST/EST CARE). HPI Patient is a 62 y.o. retirement patient who is here today to establish care. Patient has a pmhx of DMII, HTN, HLD, CKD, Hypothyroidism, Schizophrenia, Parkinsons Disease, GERD. She sees dr Arteaga at [facility] as well as Dr Ortiz for the [...] unspecified type (CMS/HCC) documented in this encounter [facility] Work Phone: 12-19-2022 Instructions Mina Ortiz [...] 6 months documented in this encounter [facility] 12-19-2022 History of Present illness Narrative Neurology Outpatient Consult [facility] [address] [place] [address] (phone)/[phone] (fax) Patient: Niva Eugenia Smail Date of [...] postural instability. documented in this encounter [facility] 11-25-2022 History of Present illness Narrative Patient [...] resume skilled PT within 30 days. [facility] Work Phone: 08-07-2022 History of Present illness Narrative Patient confirmed name and date of this session. Gait belt throughout.Pt with significant improvements in ROM with all activities especially august amb, side steps, HS curls. SBA-CGA throughout which is also a progression. Mod visual, tactile, verbal cues to perform exercises in correct plane. Less rest breaks required compared to previous sessions. [facility] Work Phone: 08-01-2022 Instructions Mina Ortiz [...] 6 months. documented in this encounter [facility] 08-01-2022 History of Present illness Narrative Neurology Outpatient Consult [facility] [address] [place] [address] (phone)/[phone] (fax) Patient: Shaji Esquivel Date of : [...] postural instability. documented in this encounter [facility] Evaluation note Diagnosis Other symptoms and signs [...] unspecified type (CMS/HCC) documented in this encounter [facility] Work Phone: Evaluation note* Diagnosis Parkinson disease Paralysis agitans [facility] Parkinson disease Paralysis agitans [facility] Diagnosis Encounter for screening mammogram for malignant neoplasm of breast documented in this encounter [facility] Work Phone: Evaluation note* Diagnosis Encounter for screening mammogram for malignant neoplasm of breast documented in this encounter [facility] Work Phone: Evaluation note* Diagnosis Comprehensive [...] or fluctuating manifestations documented in this encounter [facility] Work Phone: Evaluation note* Diagnosis Onychomycosis- [...] wrist, initial encounter documented in this encounter [facility] Work Phone: Evaluation note* Diagnosis Parkinson disease (HCC) Paralysis agitans [facility] Diagnosis Parkinson's disease with fluctuating manifestations, unspecified whether dyskinesia present (Multi)- Primary Subarachnoid hemorrhage (Multi) Subarachnoid hemorrhage documented in this encounter [facility] Work Phone: Evaluation note* Diagnosis Primary [...] fluctuating manifestations (Multi) documented in this encounter [facility] Work Phone: Evaluation note* Diagnosis Subluxation of distal end of right ulna, subsequent encounter- Primary Contusion of right forearm, initial encounter Contusion of right knee, initial encounter Subluxation of tooth Other specified disorders of the teeth and supporting structures documented in this encounter [facility] Work Phone: Evaluation note* Diagnosis Other closed fracture of distal end of right ulna, initial encounter- Primary documented in this encounter [facility] Work Phone: Evaluation note* Diagnosis Primary [...] manifestations Balance disorder documented in this encounter [facility] Work Phone: Evaluation note* Diagnosis Fall, initial encounter- Primary Contusion of right knee and lower leg, initial encounter documented in this encounter [facility] Work Phone: Evaluation note* Diagnosis Primary [...] of right foot documented [facility]* Diagnosis Primary hypertension- Primary Unspecified essential [...] falls Multiple falls documented in this encounter [facility] note* Diagnosis Primary hypertension- Primary Unspecified essential [...] involving multiple joints documented in this encounter [facility] note* Diagnosis Primary hypertension- Primary Unspecified essential hypertension Type 2 diabetes mellitus without complication, without long-term current use of insulin (HCC) Parkinson's disease, unspecified whether dyskinesia present, unspecified whether manifestations fluctuate (HCC) Schizophrenia, unspecified type (HCC) Recurrent falls Recurrent falls- Primary Primary osteoarthritis involving multiple joints Recurrent falls- Primary [facility] Diagnosis Primary hypertension- Primary Unspecified essential hypertension Type 2 diabetes mellitus without complication, without long-term current use of insulin (HCC) Parkinson's disease, unspecified whether dyskinesia present, unspecified whether manifestations fluctuate (HCC) Schizophrenia, unspecified type (HCC) Recurrent falls Recurrent falls- Primary Primary osteoarthritis involving multiple joints Recurrent falls- Primary Frequent falls- Primary Parkinson's disease (HCC) Paralysis agitans documented in this encounter [facility] note* Diagnosis Primary hypertension- Primary Unspecified essential [...] joints Frequent falls documented in this encounter [facility] note* Diagnosis Primary hypertension- Primary Unspecified essential hypertension Type 2 diabetes mellitus without complication, without long-term current use of insulin (HCC) Parkinson's disease, unspecified whether dyskinesia present, unspecified whether manifestations fluctuate (HCC) Schizophrenia, unspecified type (HCC) Recurrent falls Recurrent falls- Primary Primary osteoarthritis involving multiple joints Recurrent falls- Primary Constipation, unspecified constipation type- Primary Frequent falls documented in this encounter [facility] note* Diagnosis Primary hypertension- Primary Unspecified essential [...] joints Frequent falls documented in this encounter [facility] note* Diagnosis Primary hypertension- Primary Unspecified essential [...] joints Frequent falls documented in this encounter [facility] note* Diagnosis Primary hypertension- Primary Unspecified essential [...] joints Frequent falls documented in this encounter [facility] note* Diagnosis Primary hypertension- Primary Unspecified essential [...] Frequent falls [facility] Primary hypertension- Primary Unspecified essential [...] area, including retroperitoneum [facility]* Diagnosis Primary hypertension- Primary Unspecified essential [...] including retroperitoneum [facility] Primary hypertension- Primary Unspecified essential [...] health status [facility] Primary hypertension- Primary Unspecified essential [...] area, including retroperitoneum documented [facility] encounter [facility]* Diagnosis Primary hypertension- Primary Unspecified essential [...] insulin (HCC)- Primary documented [facility] encounter [facility]* Diagnosis Primary hypertension- Primary Unspecified essential [...] of right foot [facility] encounter [facility]* Diagnosis Primary hypertension- Primary Unspecified essential [...] when considering positive factors including support in retirement with barriers such as understanding of exercises. The pt verbalized understanding and agreement to goals and POC. Thank you for this referral and please call [phone] with any questions or concerns. * Clinical Presentation: Stable and/or uncomplicated characteristics. * Level of Complexity: low * Problem List: activity limitations, ADLs/IADLs/self care skills, balance, decreased functional level, decreased knowledge of HEP, fall risk, flexibility, gait/locomotion, range of motion/joint mobility, strength and transfers. [facility] Work Phone: History of Present illness Narrative* Patient confirmed name and date of this session. * Pt tends to turn with side steps to L indicating potentially more weakness of L hip abductors vs R.Max verbal and visual cues for all activities. She demos very short steps bkwd despite cues. She does c/o B knee pain throughout session. [facility] Work Phone: History of Present illness [...] balance for reduced risk of falls. [facility] Work Phone: History of Present illness [...] with STS d/t weakness of LEs. [facility] Work Phone: History of Present illness Narrative* Patient confirmed name and date of this session. Gait belt throughout. * Pt requires max VCs and encouragement throughout d/t fear of falling. Able to perform multiple activities outside // bars to further challenge balance. 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 Improved compliance with w/c mobilization activities. [facility] Work Phone: History of Present illness [...] falling and weakness of glute med R>L. [facility] Work Phone: History of Present illness Narrative* Tracy iHlliard APRN-CONTRACTS SPECIALIST - 02/05/2024 10:50 AM EDT Subjective [...] needed -Ice 2for swelling [facility] instructions* Attachments The following attachments cannot be sent through Care Everywhere. * Minor Contusion ED (Serbian) * Taking care of bruises (Serbian) * Preventing Falls ED (Serbian) [facility] Reason for referral (narrative)* Consultation (Routine) - Authorized Specialty Diagnoses / Procedures Referred By Jess ayon Referred To Contact Primary Care Procedures Follow Up In Primary Care - Established Rafa Jacinto DO [address] [facility] Physician [place] [phone] Referral ID Status Reason Start Date Expiration Date V isits Requested Visits Authorized [id number] Authorized 04/21/2023 04/20/2024 1 1 * Imaging (Routine) - Authorized Specialty Diagnoses / Procedures Referred By Jess ayon Referred To Contact Radiology Diagnoses Encounter for screening mammogram for malignant neoplasm of breast Procedures BI mammo bilateral screening tomosynthesis Rafa Jacinto DO [address] [facility] [place] [address] Referral ID Status Reason Start Date Expiration Date Visits Requested Visits Authorized [id number] Authorized Perform Procedure 3 04/20/[address] [facility] Work Phone: Reason for referral (narrative)* Consultation (Routine) - Pending Review Specialty Diagnoses / Procedures Referred By Contac t Referred To Contact Speech Pathology / Speech Therapy Diagnoses Parkinson's disease with fluctuating manifestations, unspecified whether dyskinesia present (Multi) Tracy Hilliard APRN-CNP [address] [facility] Physician [place] [phone] Referral ID Status Reason Start Date Expiration Date Visits Requested Visits Authorized [id number] Pending Review Specialty Services Required 12/17/2023 12/16/2024 1 1 * Consultation (Routine) - Pending Review Specialty Diagnoses / Procedures Referred By Contac t Referred To Contact Occupational Therapy Diagnoses Parkinson's disease with fluctuating manifestations, unspecified whether dyskinesia present (Multi) Tracy Hilliard APRN-CNP [address] [place] [phone] Referral ID Status Reason Start Date Expiration Date Visits Requested Visits Authorized [id number] Pending Review Specialty Services Required 12/17/2023 12/16/2024 1 1 * Consultation (Routine) - Pending Review Specialty Diagnoses / Procedures Referred By Contac t Referred To Contact Physical Therapy Diagnoses Parkinson's disease with fluctuating manifestations, unspecified whether dyskinesia present (Multi) Tracy Hilliard APRN-CNP [address] [facility] Physician [place] [phone] Referral ID Status Reason Start Date Expiration Date Visits Requested Visits Authorized [id number] Pending Review Specialty Services Required 12/17/2023 12/16/[address] [facility] Work Phone: reason for visit Narrative* Initial Evaluation . Dx: R29.6. * [facility]: reason for visit Narrative* Initial Evaluation . Dx: R29.6. * [facility] Work Phone: Rewrza for visit Narrative* Initial Evaluation . Dx: R29.6. * [facility]: Relhhd for visit Narrative* Initial Evaluation . Dx: R29.6. * [facility] Work [facility]: Relsmn for visit Narrative* Initial Evaluation . Dx: R29.6. * [facility] Work [facility]: Reuwpg for visit Narrative* Initial Evaluation . Dx: R29.6. * [facility] Work Phone: Resqaz for visit Narrative* Initial Evaluation . Dx: R29.6. * [facility]: [facility] Work Phone: Reujqz for visit Narrative* Neuro Rehab PT (Routine) - Pending Review Specialty Diagnoses / Procedures Referred By Jess ayon Referred To Contact Rehabilitation Diagnoses Closed fracture of sternum with routine healing, unspecified portion of sternum, subsequent encounter Multiple falls Recurrent falls Parkinson's disease, unspecified whether dyskinesia present, unspecified whether manifestations fluctuate (HCC) Primary osteoarthritis involving multiple joints Shelley Maldonado PA-C [address] [place] [address] Phone: tel: fax: [facility] [address] [place] [address] Phone: tel: fax: Referral ID Status Reason Start Date Expiration Date Visits Requested Visits Authorized [id number] Pending Review Patient Preference 07/23/2024 07/23/[phone] [facility] for visit Narrative* Evaluate and Treat (Routine) - Closed Specialty Diagnoses / Procedures Referred By Jess ayon Referred To Contact Gastroenterology Diagnoses Abnormal CT of the abdomen Zara Evans, DO [address] [address] Phone: tel: fax: [facility] [address] [place] [address] Phone: tel:[phone] fax: Referral ID Status Reason Start Date Expiration Date Visits Re quested Visits Authorized [id number] Closed 07/26/2024 07/26/2025 1 1 [facility] Summary Purpose Family History No Family History [...] Documents on File Type Date Recorded Patient Manager Bakery Expl anation Advance Directives and Livin g Will 11/03/2018 10:30 AM Documents on File Type Date Recorded Patient Manager Bakery Expl anation Advance Directives and Livin g Will 11/03/2018 10:30 AM Documents on File Type Date Recorded Patient Manager Bakery Expl anation Guardianship Papers 08/01/2022 Documents on File Type Date Recorded Patient Manager Bakery Expl anation Living Will 05/24/2011 Documents on File Type Date Recorded Patient Manager Bakery Expl anation Guardianship Papers 08/01/2022 Date Activated Date Inactivated Comments 12/04/2023 4:46 PM 12/05/2023 6:04 PM Date Activated Date Inactivated Comments 12/04/2023 4:46 PM 12/05/2023 6:04 PM Documents on File Type Date Recorded Patient Manager Bakery Expl anation Living Will 05/24/2011 Documents on File Type Date Recorded Patient Manager Bakery Expl anation Advance Directives and Living Will 05/24/2011 Living Will 05/24/2011 Documents on File Type Date Recorded Patient Manager Bakery Expl anation Guardianship Papers 06/01/2024 Apsi Other 2-GUARDIANSHIP PAPERWORK Guardianship Papers 08/01/2022 Documents on File Type Date Recorded Patient Manager Bakery Expl anation Guardianship Papers 07/23/2024 3:21 PM Guardianship Papers 07/19/2024 Guardianship Papers 06/01/2024 Apsi Other 2-GUARDIANSHIP PAPERWORK Guardianship Papers 08/01/2022 Date Activated Date Inactivated Comments 07/19/2024 9:59 AM 07/23/2024 5:11 PM Date Activated Date Inactivated Comments 12/04/2023 4:46 PM 12/05/2023 6:04 PM Documents on File Type Date Recorded Patient Manager Bakery Expl anation Guardianship Papers 07/23/2024 3:21 PM Guardianship Papers 07/19/2024 Guardianship Papers 06/01/2024 Apsi Other 2-GUARDIANSHIP P[employer]ERWORK Guardianship Papers 08/01/2022 Date Activated Date Inactivated Comments 07/19/2024 9:59 AM 07/23/2024 5:11 PM Date Activated Date Inactivated Comments 12/04/2023 4:46 PM 12/05/2023 6:04 PM Documents on File Type Date Recorded Patient Manager Bakery Expl anation Guardianship Papers 07/23/2024 3:21 PM Guardianship Papers 07/30/2024 Guardianship Papers 07/19/2024 Guardianship Papers 06/01/2024 [facility] -GUARDIANSHIP PAPERWORK Guardianship Papers 08/01/2022 Documents on File Type Date Recorded Patient Manager Bakery Expl anation Guardianship Papers 07/23/2024 3:21 PM Guardianship Papers 07/30/2024 Guardianship Papers 07/19/2024 Guardianship Papers 06/01/2024 [facility] -[employer]WORK Guardianship Papers 08/01/2022 Reason for Referral Status Reason Specialty Diagnoses / Procedures Referred By Contact Referred To Contact Pending Review Radiology Diagnoses Dysphagia, unspecified type Procedures XR Upper GI Series Antwan Maharaj MD [address] [place] [address] Specialty Diagnoses / Procedures Referred By Contac t Referred To Contact Neurology Diagnoses Other symptoms and signs involving the nervous system Abnormal brain MRI Antwan Maharaj MD [address] [place] [id number] Mina Ortiz MD [address] [place] [address] Referral ID Status Reason Start Date Expiration Date V isits Requested Visits Authorized [id number] Authorized 11/15/2021 11/15/2022 1 1 Specialty Diagnoses / Procedures Referred By Contac t Referred To Contact Radiology Diagnoses SAH (subarachnoid hemorrhage) (HCC) Procedures CT Head Or Brain Without Contrast Huy Vasquez PA-C [address] [place] [address] Referral ID Status Reason Start Date Expiration Date V isits Requested Visits Authorized [id number] New Request 01/05/2024 01/04/2025 1 1 Assessments Diagnosis Dysphagia, unspecified type Diagnosis Fracture of unspecified phalanx of left little finger, initial encounter for closed fracture Diagnosis Fracture of unspecified phalanx of left little finger, initial encounter for closed fracture History of Present Illness * Ti Rhodes MD - 04/27/2019 6:30 PM EST Dictation on: 04/27/2019 6:32 PM by: TI RHODES [[id number]] documented in this encounter* Ti Rhodes MD [...] section and content) DATE CREATED AUTHOR 12/03/2017 [facility] DATE CREATED AUTHOR AUTHOR'S ORGANIZ ATION 12/26/2017 [facility] DATE CREATED AUTHOR AUTHOR'S ORGANIZ ATION 02/26/2019 [facility] DATE CREATED AUTHOR AUTHOR'S ORGANIZ ATION 04/24/2022 [facility] DATE CREATED AUTHOR AUTHOR'S ORGANIZ ATION 02/01/2023 [facility] DATE CREATED AUTHOR AUTHOR'S ORGANIZ ATION 02/05/2023 [facility] DATE CREATED AUTHOR AUTHOR'S ORGANIZ ATION 02/01/2024 [facility] DATE CREATED AUTHOR AUTHOR'S ORGANIZ ATION 02/05/2024 [facility] DATE CREATED AUTHOR AUTHOR'S ORGANIZ ATION 06/29/2024 [facility] DATE CREATED AUTHOR AUTHOR'S ORGANIZ ATION 07/03/2024 [facility] DATE CREATED AUTHOR AUTHOR'S ORGANIZ ATION 07/19/2024 [facility] DATE CREATED AUTHOR AUTHOR'S ORGANIZ ATION 09/23/2024 [facility] DATE CREATED AUTHOR AUTHOR'S ORGANIZ ATION 10/16/2024 [facility] DATE CREATED AUTHOR AUTHOR'S ORGANIZ ATION [facility] Reason for Visit (unrecogniz ed section and content) Status Reason Specialty Diagnoses / Procedures Referred By Contact Referred To Contact Pending Review Radiology Diagnoses Dysphagia, unspecified type Procedures XR Upper GI Series Antwan Maharaj MD [address] [place] [address] Reason Comments Injury Pain Status Reason Specialty Diagnoses / Procedures Referred By Contact Referred To Contact Closed Sports Medicine Diagnoses Fracture of unspecified phalanx of left little finger, initial encounter for closed fracture Antwan Maharaj MD [address] [place] [address] Ti Rhodes MD [address] [place] [id number] Reason Comments Follow-up Reason Comments Follow-up Patients [...] once a week. Reason Comments Establish Care TECHNOLOGY INFUSION SPECIALIST/EST CARE Reason Comments Parkinson's Disease Not walking so good , UTI symptoms. Reason Onset Date Comments Medication Refill 06/24/2023 Specialty Diagnoses / Procedures Referred By Jess ayon Referred To Contact Radiology Diagnoses Encounter for screening mammogram for malignant neoplasm of breast Procedures BI mammo bilateral screening BI mammo bilateral screening tomosynthesis Rafa Jacinto, DO [address] [facility] [address] [facility] Physician [place] [id number] Referral ID Status Reason Start Date Expiration Date Visits Requested Visits Authorized [id number] Pending Review Perform Procedure 3 04/20/2024 1 1 Reason Comments Nail Care Patient presents for diabetic foot care. Last A1C 7.2 Patient has toenail on tight great toe that is causing her pain Reason Comments Nail Care Diabetic nail care. Last A1C 7.2 Reason Comments Follow-up Fall Reason Comments Parkinson's Disease Caregivers present. Caregivers report recent fall (1.5 month ago). She was in [facility] and transferred to [facility]. Pt utilizing assistance with gait. Reason [...] Care - Established Rafa Jacinto, DO [address] [facility] [place] [address] Referral ID Status Reason Start Date Expiration Date V isits Requested Visits Authorized [id number] Authorized 04/21/2023 04/20/2024 1 1 Reason Comments [...] involving multiple joints Shelley Maldonado PA-C [address] [place] [address] Phone: tel: fax: [facility] [address] [place] [address] Phone: tel: fax: Referral ID Status Reason Start Date Expiration Date Visits Requested Visits Authorized [id number] Authorized Patient Preference 07/23/2024 07/23/2025 1 199 [...] involving multiple joints Shelley Maldonado PA-C [address] [place] [address] Phone: tel: fax: [facility] [address] [place] [address] Phone: tel: fax: Referral ID Status Reason Start Date Expiration Date Visits Requested Visits Authorized [id number] Pending Review Patient Preference 07/23/2024 07/23/2025 8 199 Reason Onset Date Comments [facility] 2024 Referral ID Status Reason Start Date Expiration Date Visits Requested Visits Authorized [id number] Pending Review Patient Preference 07/23/2024 07/23/2025 8 199 Reason Onset Date Comments Medication Refill 09/15/2024 Reason Comments [facility] Care Diabetic A1c 8.7 09/07 10/31 Care Teams (unrecognized sec tion and content) Instrument Assembly Supervisor Relationship Specialty Start Date End Date Antwan Maharaj MD PCP - General Family Medicine 04/27/19 Instrument Assembly Supervisor Relationship Specialty Start Date End Date Antwan Maharaj MD PCP - General Family Medicine 04/27/19 Instrument Assembly Supervisor Relationship Specialty Start Date End Date Antwan Maharaj MD PCP - General Family Medicine 04/27/19 Instrument Assembly Supervisor Relationship Specialty Start Date End Date Antwan Maharaj MD [address] [place] [address] PCP - General Family Medicine 04/17/22 Instrument Assembly Supervisor Relationship Specialty Start Date End Date Antwan Maharaj MD [address] [place] [address] PCP - General Family Medicine 04/17/22 Instrument Assembly Supervisor Relationship Specialty Start Date End Date Rafa Jacinto DO [address] [facility] [place] [address] PCP - General Internal Medicine 03/19/23 Instrument Assembly Supervisor Relationship Specialty Start Date End Date Antwan Maharaj MD [address] [place] [address] PCP - General Family Medicine 04/17/22 Instrument Assembly Supervisor Relationship Specialty Start Date End Date Antwan Maharaj MD [address] [place] [address] PCP - General Family Medicine 04/17/22 Instrument Assembly Supervisor Relationship Specialty Start Date End Date Rafa Jacinto DO [address] [facility] [place] [address] PCP - General Internal Medicine 03/19/23 Instrument Assembly Supervisor Relationship Specialty Start Date End Date Rafa Jacinto DO [address] [facility] [place] [address] PCP - General Internal Medicine 03/19/23 Instrument Assembly Supervisor Relationship Specialty Start Date End Date Antwan Maharaj MD [address] [place] [address] PCP - General Family Medicine 04/17/22 Instrument Assembly Supervisor Relationship Specialty Start Date End Date Antwan Maharaj MD [address] [place] [address] PCP - General Family Medicine 04/17/22 Instrument Assembly Supervisor Relationship Specialty Start Date End Date Antwan Maharaj MD [address] [place] [address] PCP - General Family Medicine 04/17/22 Instrument Assembly Supervisor Relationship Specialty Start Date End Date Antwan Maharaj MD [address] [place] [address] PCP - General Family Medicine 04/17/22 Instrument Assembly Supervisor Relationship Specialty Start Date End Date Antwan Maharaj MD [address] [place] [address] PCP - General Family Medicine 04/17/22 Instrument Assembly Supervisor Relationship Specialty Start Date End Date Antwan Maharaj MD [address] [place] [address] PCP - General Family Medicine 04/17/22 Instrument Assembly Supervisor Relationship Specialty Start Date End Date Rafa Jacinto DO [address] [facility] [place] [address] PCP - General Internal Medicine 03/19/23 Instrument Assembly Supervisor Relationship Specialty Start Date End Date Rafa Jacinto DO [address] [facility] [place] [address] PCP - General Internal Medicine 03/19/23 Instrument Assembly Supervisor Relationship Specialty Start Date End Date Antwan Maharaj MD [address] [place] [id number] PCP - General Family Medicine 04/17/22 Instrument Assembly Supervisor Relationship Specialty Start Date End Date Rafa Jacinto DO 53 [facility] Physician [place] [id number] PCP - General Internal Medicine 03/19/23 Marie Iyer, trial mgrSanforizing Machine Operator 12/08/23 Instrument Assembly Supervisor Relationship Specialty Start Date End Date Rafa Jacinto DO 53 [facility] Physician [place] [id number] PCP - General Internal Medicine 03/19/23 Marie Iyer, trial mgrSanforizing Machine Operator 12/08/23 Instrument Assembly Supervisor Relationship Specialty Start Date End Date Rafa Jacinto DO 53 [facility] Physician [place] [id number] PCP - General Internal Medicine 03/19/23 Marie Iyer, trial mgrSanforizing Machine Operator 12/08/23 Instrument Assembly Supervisor Relationship Specialty Start Date End Date Rafa Jacinto DO 53 [facility] Physician [place] [id number] PCP - General Internal Medicine 03/19/23 Marie Iyer, trial mgrSanforizing Machine Operator 12/08/23 Instrument Assembly Supervisor Relationship Specialty Start Date End Date Zara Evans DO [address] [address] PCP - General Family Medicine 06/23/24 Instrument Assembly Supervisor Relationship Specialty Start Date End Date Rafa Jacinto DO [address] [facility] [place] [address] PCP - General Internal Medicine 03/19/23 Instrument Assembly Supervisor Relationship Specialty Start Date End Date Rafa Jacinto AmyDO [address] [facility] [place] [address] PCP - General Internal Medicine 03/19/23 Instrument Assembly Supervisor Relationship Specialty Start Date End Date Zara Evans DO [facility] [address] [address] PCP - General Family Medicine 06/23/24 Instrument Assembly Supervisor Relationship Specialty Start Date End Date Zara Evans DO [address] [place], [place] [address] PCP - General Family Medicine 06/23/24 Instrument Assembly Supervisor Relationship Specialty Start Date End Date Zara Evans DO [address] [place] [address] PCP - General Family Medicine 06/23/24 Instrument Assembly Supervisor Relationship Specialty Start Date End Date Zara Evans DO [address] [place], [place] [address] PCP - General Family Medicine 06/23/24 Instrument Assembly Supervisor Relationship Specialty Start Date End Date Zara Evans DO [address] [place] [address] PCP - General Family Medicine 06/23/24 Instrument Assembly Supervisor Relationship Specialty Start Date End Date Zara Evans DO [facility] [address] [address] PCP - General Family Medicine 06/23/24 Instrument Assembly Supervisor Relationship Specialty Start Date End Date Zara Evans DO [address] [place], [place] [address] PCP - General Family Medicine 06/23/24 Instrument Assembly Supervisor Relationship Specialty Start Date End Date Zara Evans DO [address] [place], [place] [address] PCP - General Family Medicine 06/23/24 Instrument Assembly Supervisor Relationship Specialty Start Date End Date Zara Evans DO [address] [place], [place] [address] PCP - General Family Medicine 06/23/24 Instrument Assembly Supervisor Relationship Specialty Start Date End Date Zara Evans DO [address] [place], [place] [address] PCP - General Family Medicine 06/23/24 Instrument Assembly Supervisor Relationship Specialty Start Date End Date Zara Evans DO [address] [place], [place] [address] PCP - General Family Medicine 06/23/24 Instrument Assembly Supervisor Relationship Specialty Start Date End Date Zara Evans DO [address] [place], [place] [address] PCP - General Family Medicine 06/23/24 Instrument Assembly Supervisor Relationship Specialty Start Date End Date Zara Evans DO [address] [place], [place] [address] PCP - General Family Medicine 06/23/24 Instrument Assembly Supervisor Relationship Specialty Start Date End Date Zara Evans DO [address] [place], [place] [address] PCP - General Family Medicine 06/23/24 Instrument Assembly Supervisor Relationship Specialty Start Date End Date Zara Evans DO [address] [place], [place] [address] PCP - General Family Medicine 06/23/24 Instrument Assembly Supervisor Relationship Specialty Start Date End Date Zara Evans DO [address] [place], [place] [address] PCP - General Family Medicine 06/23/24 Instrument Assembly Supervisor Relationship Specialty Start Date End Date Zara Evans DO [address] [place] [address] PCP - General Family Medicine 06/23/24 Instrument Assembly Supervisor Relationship Specialty Start Date End Date Zara Evans DO [address] [place] [address] PCP - General Family Medicine 06/23/24 Instrument Assembly Supervisor Relationship Specialty Start Date End Date Zara Evans DO [address] [place], [place] [address] PCP - General Family Medicine 06/23/24 Instrument Assembly Supervisor Relationship Specialty Start Date End Date Zara Evans DO [address] [place], [place] [address] PCP - General Family Medicine 06/23/24 Instrument Assembly Supervisor Relationship Specialty Start Date End Date Zara Evans DO [address] [place], [place] [address] PCP - General Family Medicine 06/23/24 <item><item><item><item><item> [...] pain scores based on patient preference? Yes 8547 (Given - Provid er: Ann Hill RN) [...] BE BASED ON THE PRIMARY CLINICAL RECORDS. [employer] provides no warranty or guarantee of the accuracy or completeness of information in this document.
[2024-12-18 21:35] LABS: Anion Gap 21 (5-15); BUN 36 mg/dL (4-19); BUN/Creat Ratio 40.2 RATIO (10-20); Calcium,Total 9.3 mg/dL (7.6-11.0); Carbon Dioxide 19.6 mmol/L (21.0-32.0); Chloride 102 mmol/L (98-108); Estimated Creatinine Clearance 58.39 ml/min (50-250); Glucose 192 mg/dL (70-99); Potassium 4.4 mmol/L (3.3-5.1); Troponin T High Sensitivity 10 ng/L (<=14)
--- NOTE | 2024-12-18 21:41 | ED.RN ---
CR mike being delayed by the inability to get ahold of patient's brother who is legal guardian. Staff was given wrong phone number by nursing facility, and Dr. Banks is currently trying to contact guardian in order to establish play of care.
--- NOTE | 2024-12-18 22:14 | HP.PCM.HOS_ITS ---
HPI - General General Date of Admission: 12/18/24 Date of Service: 12/18/24 Chief Complaint: Slurred speech with facial droop HPI Narrative AMADOR IVORY, is a 64 F who presented to [facility] ED on 12/18/2024 with slurred speech and facial droop. Medical history significant for dementia due to Parkinson's disease, hypertension, hyperlipidemia and type 2 diabetes. Patient has lived in assisted living for the past 6 years or so. At baseline she needs assistance to ambulate, will otherwise use a wheelchair. Needs help bathing and dressing. Typically does not know the month or age. She also typically reports chronic whole body pain. Staff member who knows her well accompanied her to the ED today. She noticed that the patient seemed off from her usual today. Patient usually has good energy level and very good appetite. However today she seemed more fatigued and ate very little. She noticed the patient was staring off for seconds at a time this afternoon which was not her usual. Then this evening patient appeared to have a facial droop, and when staff attempted to have her speak to them she had slurred speech, so they brought her in for further evaluation. She was a stroke alert in the ED. Vitals notable for mild sinus tachycardia to the 100s, mild hypertension to the 140s systolic, otherwise stable on room air. CT brain was unremarkable. Patient has a contrast allergy so CTA head and neck was not done. Chest x-ray was unremarkable. Labs notable for WBC count 13 with neutrophil predominance and lymphopenia, creatinine 0.9 (baseline around 0.7), BUN 36, glucose 192. UA showed 150 ketones, 1000 glucose, otherwise unremarkable and noninfectious appearing. NIH score of 4 per neurology. TNK was not given as patient is not ambulatory on her own. Hospitalist was contacted for admission. I saw the patient at bedside in the ED, guarding was present. Patient was fatigued appearing but otherwise laying back comfortably in bed and in no acute distress. She opened her eyes for me and did complain of full body pain but otherwise was not answering questions appropriately for me. Will be admitted for further management. [facility] Medical History (Updated 12/19/24 @ 00:[address] José Manuel Florez, DO) Parkinsons Hypertension Diabetes Schizophrenia Home Medications ?Medication ?Instructions ?Recorded ?Last Taken ?Type docusate sodium 100 mg capsule 100 mg PO BID Constipat ion 01/13/17 Unknown History (DOK) sennosides 8.6 mg-docusate sodium 1 tab PO DAILY 01/13 Unknown History 50 mg tablet (Senna Plus) Benacalorie 1 packet PO TID PRN intake l ess 12/18/24 Unknown History than 50% acetaminophen 500 mg tablet 1,000 mg PO TID PRN fever or pain 12/18/24 Unknown History amlodipine 2.5 mg tablet 2.5 mg PO DAILY 12/18/24 Unk nown History amlodipine 2.5 mg tablet 2.5 mg PO DAILY 12/18/24 Unk nown History atorvastatin 10 mg tablet 10 mg PO DAILY 12/18/24 Unkn own History atorvastatin 10 mg tablet 10 mg PO DAILY 12/18/24 Unkn own History benztropine 1 mg tablet 1 mg PO DAILY 12/18/24 Unkno wn History benztropine 1 mg tablet 1 mg PO QHS 12/18/24 Unknown History carbidopa 25 mg-levodopa 100 mg 2 tab PO TID 12/18/24 Unknown History tablet carbidopa 25 mg-levodopa 100 mg 2 tab PO TID 12/18/24 Unknown History tablet diclofenac sodium 1 % topical gel 4 g topical 4X/DAY 0 12/18/24 Unknown History diclofenac sodium 1 % topical gel 4 g topical 4X/DAY b il knees and 12/18/24 Unknown History right hip empagliflozin 25 mg tablet 25 mg PO DAILY 12/18/24 Unk nown History (Jardiance) estradiol 0.01% (0.1 mg/gram) 0.5 appful vaginal MOWEF R 12/18/24 Unknown History vaginal cream estradiol 0.01% (0.1 mg/gram) 0.5 appful vaginal DAILY 12/18/24 Unknown History vaginal cream (Estrace) fluoride (sodium) 1.1 % dental 1 applic dental DAILY 0 12/18/24 Unknown History cream (Denta 5000 Plus) glipizide 10 mg tablet 10 mg PO BID 12/18/24 Unknow n History glipizide 10 mg tablet 10 mg PO BID 12/18/24 Unknow n History levothyroxine 75 mcg tablet 75 mcg PO DAILY 12/18/24 U nknown History melatonin 3 mg tablet 3 mg PO QHS 12/18/24 Unknown History metformin 500 mg tablet,extended 1,000 mg PO BID 12/18 Unknown History release 24 hr mirtazapine 30 mg disintegrating 30 mg PO QHS 12/18/24 Unknown History tablet multivitamin with minerals-ferrous 1 tab PO DAILY 12/07 08/03 Unknown History fumarate 15 mg iron tablet nut.tx.glucose intolerance,soy 1 ea PO 4X/DAY 12/18/24 Unknown History (Glucerna oral bar) omeprazole 40 mg capsule,delayed 40 mg PO DAILY Unknown History release pimavanserin 34 mg capsule 34 mg PO DAILY 12/18/24 Unk nown History (Nuplazid) polyethylene glycol 3350 17 17 g PO DAILY 12/18/24 Unk nown History gram/dose oral powder potassium chloride 10 mEq 10 meq PO DAILY 12/18/24 Unk nown History tablet,extended release(part/cryst) repaglinide 0.5 mg tablet 0.5 mg PO BID 12/18/24 Unkno wn History Allergy/AdvReac Type Severity Reaction Status Date / Time Iodinated Contrast Media Allergy UNKNOWN Verified 12/18/24 21:04 (contrast dye - iodinated) Social History Smoking Status: Unknown if ever smoked ROS Review of Systems ROS Unobtainable: due to mental status Vital Signs Vital Signs Vital Signs: 12/18/24 21:00 12/18/24 21:04 12/18/24 21:29 Temperature 97.8 F Temperature Source Oral Pulse Rate 106 H Respiratory Rate 16 Blood Pressure 145/82 H Blood Pressure Mean 103 Pulse Ox 93 91 Oxygen Delivery Method Room Air Nasal Cannula Oxygen Flow Rate (L/min) 3 12/18/24 21:30 12/18/24 22:00 Temperature Temperature Source Pulse Rate 106 H 102 H Respiratory Rate 16 16 Blood Pressure 134/73 H 128/72 H Blood Pressure Mean 93 90 Pulse Ox 93 98 Oxygen Delivery Method Room Air Room Air Oxygen Flow Rate (L/min) Weight Weight: 71.214 kg Body Mass Index (BMI) 28.7 Physical Exam Const alert, no apparent distress and average body habitus Constitutional Narrative: Upper middle-aged female, alert and making appropriate eye contact but not answering questions appropriately for me, fatigued appearing, otherwise laying back comfortably in bed and in no acute distress. General Appearance: cooperative and comfortable HEENT normocephalic, head/scalp atraumatic, hearing grossly normal bilaterally, nasal mucous membranes and turbinates normal and moist oral mucous membranes Eyes PERRL, EOMs intact bilaterally and conjunctivae normal Neck full ROM Chest inspection of chest normal Resp normal respiratory effort, normal air movement, no use of accessory muscles and clear to auscultation bilaterally Cardio regular rate, regular rhythm, no murmurs and peripheral pulses 2+ throughout GI normal to inspection, nondistended, normoactive bowel sounds, soft to palpation, non-tender and non-distended Back/Spine normal ROM Extremity normal to inspection and no pedal edema Skin no rashes or lesions noted Neuro Neuro Narrative: Parkinsonian tremor noted. Generalized weakness in legs noted. No facial droop appreciated. Results Lab / Micro Data 12/18/24 20:00 12/18/24 20:00 Labs: Laboratory Results - last 24 hr 12/18/24 20:00: WBC 13.1 H, RBC 5.38, Hgb 16.0 H, Hct 51.3 H, MCV 95.4, MCH 29.7, MCHC 31.2 L, RDW Std Deviation 44.7 H, RDW Coeff of Luis Enrique 12.8, Plt Count 295, MPV 9.3, Immature Gran % (Auto) 0.300, Neut % (Auto) 95.7 H, Lymph % (Auto) 1.4 L, Tyrrell % (Auto) 2.0, Eos % (Auto) 0.4, Baso % (Auto) 0.2, Absolute Neuts (auto) 12.5 H, Absolute Lymphs (auto) 0.18 L, Nucleated RBC % 0, PT 13.5, INR 1.0, APTT 22.4 L, Sodium 143, Potassium 4.4, Chloride 102, Carbon Dioxide 19.6 L , Anion Gap 21 H, BUN 36 H, Creatinine 0.90, Estim Creat Clear Calc 58.39, Est GFR (MDRD) Non-Af 71, BUN/Creatinine Ratio 40.2 H, Glucose 192 H, Calcium 9.3, Troponin T High Sens 10 Imaging Radiology Impression Brain CT 12/18/24 21:00 IMPRESSION: 1. No definite evidence of an acute intracranial abnormality. There is hypodensity throughout the white matter suggestive of chronic small vessel ischemic disease, and which limits evaluation for acute ischemia. Consider MRI if there is persistent concern. 2. Slight thickening in the soft tissues of the right forehead, correlate with findings on exam. The critical information above was relayed directly by me by telephone to Gamaliel Banks on 12/18/2024 at 9:13 pm with readback verification. Reading Location: [facility] Assessment & Plan Assessment/Plan (1) Stroke-like symptoms: PLAN: Plan Patient is a 64-year-old female who presented to [facility] ED on 12/18/2024 with strokelike symptoms. 1. Strokelike symptoms, CVA rule out ? Admit under observation status to PCU. Presented with slurred speech, facial droop and altered mentation. CT brain unremarkable. Has contrast allergy so CTA head/neck was not done. NIH score of 4 in the ED. Orders placed per stroke protocol order set. MRI brain and MRA head/neck ordered. Lipid panel, A1c and TSH ordered. Will start baby aspirin and high intensity statin. PT/OT/case management consulted. 2. Leukocytosis with lymphopenia and low-grade fever ? WBC count 13.1 with 95% neutrophils and 1.4% leukocytes with absolute lymphocyte count of only 0.18. Developed low-grade fever in the ED. May be secondary to viral infection, respiratory PCR panel ordered. No new medications noted per patient's guardian. Follow-up a.m. CBC with diff. 3. Type 2 diabetes mellitus ? Blood glucose 195. A1c 7.4% which is reportedly higher than previous. Will treat with sliding scale insulin with meals for now, adjust as needed. Hold home oral medications. 4. Chronic debility due to Parkinson's disease with dementia ? Case management consulted as above. Has lived at assisted living for about 6 years now. Continue home carbidopa?levodopa and benztropine. Chronic medical conditions: ? Class II obesity: BMI 38 on admit. Complicates hospital course, care and prognosis. ? GERD: Continue home PPI. ? Hypothyroidism: TSH ordered as above. Continue home Synthroid. ? Hypertension: Holding home amlodipine for permissive hypertension. DVT prophylaxis: SCDs CODE STATUS: Full code, unverified Expected disposition: TBD Total clinical time spent by myself addressing the patient's medical issues, reviewing all the data, and collaborating with patient's care team: 75 minutes. Charges/Coding Visit Charges Inpatient E&M: 34643 Init Hosp L3
--- NOTE | 2024-12-18 22:20 | MRI_ITS ---
PROCEDURE: BRAIN WITHOUT CONTRAST 12/18/2024 REASON FOR EXAM: CVA RULE OUT TECHNIQUE: BRAIN WITHOUT CONTRAST Multiplanar and multisequence images were obtained. COMPARISON: None. FINDINGS: There is moderate diffuse cerebral atrophy with concomitant ventriculomegaly. There is patchy low-density of the periventricular and subcortical white matter in both cerebral hemispheres consistent with chronic ischemic white matter disease. There is a normal sulcal pattern and gyral configuration. There is no evidence of acute intracranial hemorrhage or infarction. The marie-white differentiation is well preserved. There is no evidence of restricted diffusion. The basilar cisterns are normal. There are normal flow voids demonstrated in the recognized intracranial vessels. The cerebellum and brainstem are unremarkable. The cerebellar pontine angles are normal. The craniovertebral junction is normal. The sella and suprasellar regions are normal. The orbits and retro-orbital regions are unremarkable. The nasal septum is deviated to the left the paranasal sinuses are clear. The mastoid air cells are clear. There is normal bone marrow signal in the skull base and calvarium. MRI/Brain without Contrast IMPRESSION: 1. No evidence of acute intracranial pathology. 2. Cerebral atrophy with chronic ischemic white matter disease. 3. Other findings as noted. Reading Location: [place] [address]
--- NOTE | 2024-12-18 22:20 | MRI_ITS ---
PROCEDURE: BRAIN WITHOUT CONTRAST 12/18/2024 REASON FOR EXAM: CVA RULE OUT TECHNIQUE: BRAIN WITHOUT CONTRAST Multiplanar and multisequence images were obtained. COMPARISON: None. FINDINGS: There is moderate diffuse cerebral atrophy with concomitant ventriculomegaly. There is patchy low-density of the periventricular and subcortical white matter in both cerebral hemispheres consistent with chronic ischemic white matter disease. There is a normal sulcal pattern and gyral configuration. There is no evidence of acute intracranial hemorrhage or infarction. The marie-white differentiation is well preserved. There is no evidence of restricted diffusion. The basilar cisterns are normal. There are normal flow voids demonstrated in the recognized intracranial vessels. The cerebellum and brainstem are unremarkable. The cerebellar pontine angles are normal. The craniovertebral junction is normal. The sella and suprasellar regions are normal. The orbits and retro-orbital regions are unremarkable. The nasal septum is deviated to the left the paranasal sinuses are clear. The mastoid air cells are clear. There is normal bone marrow signal in the skull base and calvarium. MRI/Brain without Contrast IMPRESSION: 1. No evidence of acute intracranial pathology. 2. Cerebral atrophy with chronic ischemic white matter disease. 3. Other findings as noted. Reading Location: [place] [address]
[2024-12-18 22:32] LABS: Mucous, Urine 0 SEEN /hpf (<or=2+)
[2024-12-18 22:35] LABS: Color, Urine Yellow (Yellow); Glucose, Dipstick 1000 mg/dl (Normal); Leukocyte Esterase-Dipstick Negative /ul (Negative); Nitrite-Dipstick Negative (Negative); Occult Blood-Urine Negative /ul (Negative); Protein-Dipstick 30 mg/dl (Negative); Specific Gravity, Urine 1.015 (1.002-1.030); Urine Bilirubin Dipstick Negative (Negative)
[2024-12-18 22:46] LABS: Ketone-Dipstick 150 mg/dl (Negative)
--- OUTSIDE RECORDS SUMMARY | 2024-12-18 22:46 | XMS RPT_ITS | CCD ---
Author Organization [facility] Care Team Providers Care Precision Lens Generator Name Role Phone Unavailable Unavailable Unavailable Letha Alli Unavailable Unavailable Antwan Watters Unavailable Unavailable Alli Monae Unavailable Unavailable Antwan Watters Unavailable Unavailable Antwan Maharaj Unavailable Unavailable Antwan Maharaj Unavailable Unavailable Antwan Maharaj Unavailable Unavailable Antwan Maharaj Unavailable Unavailable Antwan Maharaj Unavailable Unavailable Antwan Maharaj Unavailable Unavailable Antwan Watters Primary Care Provider [phone] Antwan Watters Unavailable [phone] Antwan Maharaj Primary Care Provider Antwan Maharaj MD Primary Care Provider MINA ORTIZ Attending Unavailable MINA ORTIZ Referring Unavailable ANTWAN MAHARAJ Primary Care Unavailable Antwan Maharaj Unavailable France Lowe Unavailable Unavailable Antwan Maharaj MD Primary Care Provider [phone] Erickson Hernandez Unavailable Sharmaine Kelly I Unavailable [...] Antwan Webster Attending Unavaila ble Tomchak, Dr. Antawn Webster Attending Unavaila ble Tomchak, Dr. Antwan Webster Primary Care Unavaila ble Tomchak, Dr. Antwan Webster Attending Unavaila ble Tomchak, Dr. Antwan Webster Primary Care Unavaila ble Moomaw, Tracey Sharmaine Mak Attending Unavailable Tomchak, Dr. Antwan Webster Primary Care Unavaila ble Tomdomo, Dr. Antwan Webster Primary Care Unavaila ble Jai, Dr. Osiel Dang Attending Unavail able Oberhauser DO, Rafa L Primary Care Provider HUY VASQUEZ Referring Unavailable HUY VASQUEZ Attending Unavailable ANTWAN MAHARAJ Primary Care Unavailable Jaylon ONTIVEROS, Marie Reyes Unavailable Unavailab Zara Hernández DO Primary Care Provider [phone] TRACY HILLIARD Attending Unavailable OBERHAUSER, RAFA L Primary Care Unavailable OBERHAUSER, RAFA L Attending Unavailable OBERHAUSER, RAFA L Referring Unavailable OBERHAUSER, RAFA L Primary Care Unavailable TARCY HILLIARD Attending Unavailable OBERHAUSER, RAFA L Primary [...] Unavailable SOTO DALY Attending Unavailable MOVENS, SHELLEY ANURADAH Admitting Unavailable CRISTINA, ZARA R. Primary Care [...] Attending Unavailable CREKIRILL ENG Admitting Unavailab le [facility] Consulting MODESTA Rangel Attending Unavailable CRISTINA, ZARA R. Primary Care Unavailable ELIZABETH KIMBLE Attending Unavailable TOMCHAANTWAN Lay Primary Care Unavailable VIAU, SACHIN MORENO Attending Unavailable TOMCHAANTWAN Lay Primary Care Unavailable ELIZABETH KIMBLE Attending Unavailable TOMANTWAN SOMERS Primary Care Unavailable HUY VASQUEZ Attending Unavailable TOMCHAK, ANTWAN WEBSTER Primary Care Unavailable MINA ORTIZ Attending Unavailable TOMCHAKANTWAN Primary Care Unavailable CRISTINA, AZRA RTracey Attending Unavailable CRISTINA, ZARA R. Primary [...] mouth every six hours for pain HYDROcodone-acetaminophen ([place]) 5-325 mg tablet Indications: Contusion of right [...] Active docusate sodium 50 mg / sennosides, mcfp 8.6 mg oral tablet (20 sources) Start: [...] PM EST 12/24/2023 12/23/2024 Active estrogens, conjugated (mcfp) 0.625 mg/ml vaginal cream (20 sources) Estrogen [...] Ordered: 09-Aug-2022 Chan Stephens Generic Substitution Allowed tcucgdav-jso-ryttvif fumarate 15 mg iron Tab (20 sources) Start: 08-19-2024 take 1 tablet by mouth once daily in the morning ylvftxno-gne-krnrlga fumarate 15 mg iron Tab Indications: Frequent falls Take 1 tablet by mouth every morning . 90 tablet 3 08/19/2024 Active Start: 11-09-2023 End: 08-19-2024 take 1 tablet by mouth once daily in the morning trpxwdwi-fsj-qfqbvfy fumarate 15 mg iron Tab Take 1 tablet by mouth every morning . 11/09/2023 08/19/2024 Discontinued (Reorder (Suppress CancelRx Message to Pharmacy)) Start: 11-09-2023 take 1 tablet by lopez th once daily in the morning nzmkyifj-otc-hlzwyez fumarate 15 mg iron Tab Take 1 tablet by mouth every morning . 11/09/2023 Active zdiokrxs-chk-wydowfi fumarate 15 mg iron tablet (3 sources) Start: 03-08-2024 take 1 tablet by mouth once daily bhohfmvv-bbu-mybdgkg fumarate 15 mg iron tablet Take 1 tablet by mouth once daily. 03/08/2024 Active nmffqhhr-oml-nxcr fum-folic ac 7.5 mg iron-400 mcg tablet (9 sources) Start: 10-07-2023 vpkumsca-xis-h adolfo fum-folic ac 7.5 mg iron-400 mcg tablet Indications: Healthcare maintenance GIVE 1 TABLET BY MOUTH ONCE DAILY FOR SUPPLEMENT *GETTING FILLED LOCALLY* 30 tablet 10/07/2023 Active MULTIVITAMIN ORAL (20 sources) MULTIVITAMIN ORA L Take 1 tablet by mouth . Active MULTIVITAMIN ORA L Take by mouth . 0 Active multivitamin with minerals (wtbcsqvy-eaf-ebll fum-folic ac) tablet (9 sources) Start: 10-14-2023 End: 10-13-2024 take 1 tablet by mouth once daily before mealtime multivitamin with minerals (bysssras-mcz-jnqt fum-folic ac) tablet Indications: Stage 3a chronic [...] daily . 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] Onset: 01-22-2017 Episodic Other aftercare (1 source) jail (current) use of oral hypoglycemic drugs; Translations: [roasterman (current) use of oral hypoglycemic drugs] Onset: [...] HYPERCHOLESTEROLEMIA, UNSPECIFIED] Onset: 01-22-2017 Unclassified (1 source) jail (current) use of oral hypoglycemic drugs; Translations: [ALF (CURRENT) USE OF ORAL HYPOGLYCEMIC DRUGS] Onset: [...] Reference Range Facility MTB SCREENon 10-08-2024 MITOGEN-NIL 2.09729 IU/mL Normal [facility] Comment on above: Performed By: #### L [id number] #### [facility] [address] [place] [address] Kirill Noe M.D. [id number] MTB SCREEN INTERPRETATION Negative Normal Negative [facility] Comment on above: Result Comment: No I FN-gamma response to M tuberculosis antigens was detected. Latent infection with M tuberculosis is unlikely. A single negative result does not exclude infection with M tuberculosis. In patients at high risk for M tuberculosis infection,a second test should be considered Performed By: #### L [id number] #### [facility] [address] [place] [address] Kirill Noe M.D. [id number] NIL 0.95964 IU/mL Normal [facility] Comment on above: Performed By: #### L [id number] #### [facility] [address] [place] [address] Kirill Noe M.D. [id number] TB1-NIL -0.09534 IU/mL Normal [address] [facility] Comment on above: Performed By: #### L [id number] #### [facility] [address] [place] [address] Kirill Noe M.D. [id number] TB2-NIL 0.61233 IU/mL Normal 0.00 0.34 [facility] Comment on above: Result Comment: [...] out TB Infection. Performed By: #### L [id number] #### [facility] [address] [address] Kirill Noe M.D. [id number] XR UPPER GI W/SMALL BOWEL FO LLOW [...] FriSep 30, 2024 11:42:03 AM EDT Normal [facility] Comment on above: Order Comment: Injur [...] By: #### 6 517 #### [facility] [place] [address] Senior Talent Acquisition Specialist: Russell Pagan MD ALBUMIN/CREATININE RATIO, RANDOM URINE [...] By: #### 6 517 #### [facility] [place] [address] Senior Talent Acquisition Specialist: Russell Pagan MD Creatinine (U) [Mass/Vol] 36 mg/dL Normal 20-275 [facility] Comment on above: Order Comment: FASTI NG:NO FASTING: NO Performed By: #### 6 517 #### [facility] [place] [address] Senior Talent Acquisition Specialist: Russell Pagan MD HEMOGLOBIN A1con 09-22-2024 HbA1c [...] children. Performed By: #### 4 96 #### [address], [address] [place] [address] Senior Talent Acquisition Specialist: Russell Pagan MD POC GLUCOSE - [facility] 025 Glucose [Mass/Vol] 218 mg/dL [address] Comment on above: Performed By: #### 4 6932 ####[facility] [address] [address] David Mcclain M.D. [id number] Glucose [Mass/Vol] 143 mg/dL [address] Comment on above: Performed By: #### 4 6932 #### [facility] [address] [address] David Mcclain M.D. [id number] POC GLUCOSE - [facility] 025 Glucose [Mass/Vol] 170 mg/dL [address] Comment on above: Performed By: #### 4 6932 #### LAB [address] [address] David Mcclain M.D. [id number] Glucose [Mass/Vol] 134 mg/dL [address] Comment on above: Performed By: #### 4 6932 #### [facility] [address] [address] David Mcclain M.D. [id number] Glucose [Mass/Vol] 154 mg/dL [address] Comment on above: Performed By: #### 4 6932 ####[facility] [address] [address] David Mcclain M.D. [id number] Glucose [Mass/Vol] 120 mg/dL [address] Comment on above: Performed By: #### 4 6932 #### [facility] [address] [address] David Mcclain M.D. [id number] POC GLUCOSE - [facility] 025 Glucose [Mass/Vol] 107 mg/dL [address] Comment on above: Performed By: #### 4 6932 #### LAB [address] [address] David Mcclain M.D. [id number] Glucose [Mass/Vol] 106 mg/dL [address] Comment on above: Performed By: #### 4 6932 #### [facility] [address] [address] David Mcclain M.D. [id number] LIPASEon 07-20-2024 Lipase [Catalytic activity/Vol] 36 U/L [facility] Comment on above: Performed By: #### 4 6965 #### [facility] [address] [address] David Mcclain M.D. [id number] POC GLUCOSE - [facility] 025 Glucose [Mass/Vol] 131 mg/dL [address] Comment on above: Performed By: #### 4 6932 #### LAB [address] [address] David Mcclain M.D. [id number] Glucose [Mass/Vol] 147 mg/dL [address] Comment on above: Performed By: #### 4 69 ####[facility] [address] [id number] David Mcclain M.D. [id number] Glucose [Mass/Vol] 131 mg/dL [address] Comment on above: Performed By: #### 4 1058 #### [facility] [address] [address] David Mcclain M.D. [id number] Glucose [Mass/Vol] 160 mg/dL High 65-99 [facility] Comment on above: Performed By: #### 4 6932 #### LAB [address] [place], [place] [address] David Mcclain M.D. [id number] URINE AEROBIC CULTUREon 07-10 URINE AEROBIC CULTURE [...] Extended Susc Islt S Negative F Abnormal [facility] Comment on above: Performed By: #### 4 6932 #### LAB [address] [place], [place] [address] David Mcclain M.D. [id number] APTTon 07-19-2024 aPTT Coag (Bld) [Time] 23 s Normal 23-34 [facility] Comment on above: Order Comment: Thera peutic range for APTT's is 68 - 104 seconds Performed By: #### 4 5113 #### LAB [address] [place], [place] [address] David Mcclain M.D. [id number] CBC WITH AUTO DIFFERENTIALon 07-19-2024 AUTO NRBC 0.0 % Normal [facility] Comment on above: Performed By: #### 4 6932 #### LAB [address] [address] David Mcclain M.D. [id number] AUTO NRBC ABS COUNT 0.00 K/mcL Normal 0.00-0.00 [facility] Comment on above: Performed By: #### 4 6932 #### LAB [address] [address] David Mcclain M.D. [id number] BASOPHILS ABSOLUTE COUNT 0.01 K/mcL Normal 0.00-0.30 [facility] Comment on above: Performed By: #### 4 6998 #### LAB [address] [address] David Mcclain M.D. [id number] Basophils/100 WBC (Bld) 0.2 % Normal [facility] Comment on above: Performed By: #### 4 6973 #### LAB [address] [address] David Mcclain M.D. [id number] Eosinophils (Bld) [#/Vol] 0.20 10*3/uL Normal 0.00-0.50 [facility] Comment on above: Performed By: #### 4 8757 #### LAB [address] [address] David Mcclain M.D. [id number] Eosinophils/100 WBC (Bld) 3.3 % Normal [facility] Comment on above: Performed By: #### 4 0362 #### LAB [address] [address] David Mcclain M.D. [id number] Erythrocyte distribution width (RBC) [Ratio] 13.3 % Normal 11.6-14.8 [facility] Comment on above: Performed By: #### 4 4458 #### LAB [address] [address] David Mcclain M.D. [id number] Hematocrit (Bld) [Volume fraction] 47.7 % High 36.0-46.0 [facility] Comment on above: Performed By: #### 4 3059 #### LAB [address] [address] David Mcclain M.D. [id number] Hemoglobin (Bld) [Mass/Vol] 14.4 g/dL Normal 12.0-16.0 [facility] Comment on above: Performed By: #### 4 6994 #### LAB [address] [address] David Mcclain M.D. [id number] IG ABSOLUTE 0.02 K/mcL Normal 0.00-0.30 [facility] Comment on above: Performed By: #### 4 6974 #### LAB [address] [address] David Mcclain M.D. [id number] IG PERCENT 0.30 % Normal [facility] Comment on above: Result Comment: The IG parameter is the percentage of metamyelocytes, myelocytes and promyelocytes. An immature granulocyte count (IG) of 1% or more suggests the possibility of infection, an IG count of 3% is very likely related to an infection. Performed By: #### 4 9352 #### LAB [address] [address] David Mcclain M.D. [id number] Lymphocytes (Bld) [#/Vol] 0.92 10*3/uL Normal 0.90-4.00 [facility] Comment on above: Performed By: #### 4 6925 #### LAB [address] [address] David Mcclain M.D. [id number] Lymphocytes/100 WBC (Bld) 15.4 % Normal [facility] Comment on above: Performed By: #### 4 6954 #### LAB [address] [address] David Mcclain M.D. [id number] MCH (RBC) [Entitic mass] 28.7 pg Normal 26.0-34.0 [facility] Comment on above: Performed By: #### 4 6983 #### LAB [address] [address] David Mcclain M.D. [id number] MCV (RBC) [Entitic vol] 95.0 fL Normal 80.0-100.0 [facility] Comment on above: Performed By: #### 4 6944 #### LAB [address] [address] David Mcclain M.D. [id number] MEAN CORPUSCULAR HEMOGLOBIN CONC 30.2 g/dL Low 31.0-37.0 [facility] Comment on above: Performed By: #### 4 6955 #### LAB [address] [address] David Mcclain M.D. [id number] Monocytes (Bld) [#/Vol] 0.40 10*3/uL Normal 0.30-0.90 [facility] Comment on above: Performed By: #### 4 6952 #### LAB [address] [address] David Mcclain M.D. [id number] Monocytes/100 WBC (Bld) 6.7 % Normal [facility] Comment on above: Performed By: #### 4 0052 #### LAB [address] [address] David Mcclain M.D. [id number] NEUTROPHILS ABSOLUTE COUNT 4.43 K/mcL Normal 1.70-7.00 [facility] Comment on above: Performed By: #### 4 6906 #### LAB [address] [address] David Mcclain M.D. [id number] Neutrophils/100 WBC (Bld) 74.1 % Normal [facility] Comment on above: Performed By: #### 4 0356 #### LAB [address] [address] David Mcclain M.D. [id number] Platelet mean volume (Bld) [Entitic vol] 10.4 fL Normal 9.4-12.4 [facility] Comment on above: Performed By: #### 4 3379 #### LAB [address] [address] David Mcclain M.D. [id number] Platelets (Bld) [#/Vol] 294 10*3/uL Normal 150-400 [facility] Comment on above: Performed By: #### 4 6932 #### LAB [address] [address] David Mcclain M.D. [id number] RBC (Bld) [#/Vol] 5.02 10*6/uL Normal 4.00-5.20 [facility] Comment on above: Performed By: #### 4 6932 #### LAB [address] [address] David Mcclain M.D. [id number] WBC (Bld) [#/Vol] 5.98 10*3/uL Normal 4.50-11.00 [facility] Comment on above: Performed By: #### 4 6932 #### LAB [address] [address] David Mcclain M.D. [id number] COMPREHENSIVE METABOLIC PANE Huan 07-19-2024 Albumin [Mass/Vol] 4.4 g/dL Normal 3.2-5.2 [facility] Comment on above: Order Comment: [facility] has implemented the eGFR calculation approach that does not have a coefficient for race that conforms to the NKF-ASN Task Force Recommendations. Performed By: #### 4 6932 #### LAB [address] [address] David Mcclain M.D. [id number] ALP [Catalytic activity/Vol] 68 U/L Normal 40-150 [facility] Comment on above: Order Comment: [facility] has implemented the eGFR calculation approach that does not have a coefficient for race that conforms to the NKF-ASN Task Force Recommendations. Performed By: #### 4 6932 #### LAB [address] [address] David Mcclain M.D. [id number] ALT [Catalytic activity/Vol] 15 U/L Normal 0-35 U/L [facility] Comment on above: Order Comment: [facility] has implemented the eGFR calculation approach that does not have a coefficient for race that conforms to the NKF-ASN Task Force Recommendations. Performed By: #### 4 6932 #### LAB [address] [id number] David Mcclain M.D. [id number] Anion gap [Moles/Vol] 18 mmol/L Normal 10-20 [facility] Comment on above: Order Comment: [facility] has implemented the eGFR calculation approach that does not have a coefficient for race that conforms to the NKF-ASN Task Force Recommendations. Performed By: #### 4 6932 #### LAB [address] [address] David Mcclain M.D. [id number] AST [Catalytic activity/Vol] 17 U/L Normal 0-35 U/L [facility] Comment on above: Order Comment: [facility] has implemented the eGFR calculation approach that does not have a coefficient for race that conforms to the NKF-ASN Task Force Recommendations. Performed By: #### 4 6932 #### LAB [address] [address] David Mcclain M.D. [id number] Bilirubin [Mass/Vol] 0.2 mg/dL Normal 0.0-1.3 [facility] Comment on above: Order Comment: [facility] has implemented the eGFR calculation approach that does not have a coefficient for race that conforms to the NKF-ASN Task Force Recommendations. Performed By: #### 4 6932 #### LAB [address] [address] David Mcclain M.D. [id number] Calcium [Mass/Vol] 9.8 mg/dL Normal 8.4-10.2 [facility] Comment on above: Order Comment: [facility] has implemented the eGFR calculation approach that does not have a coefficient for race that conforms to the NKF-ASN Task Force Recommendations. Performed By: #### 4 6932 #### LAB [address] [address] David Mcclain M.D. [id number] Chloride [Moles/Vol] 103 mmol/L Normal 98-108 [facility] Comment on above: Order Comment: [facility] has implemented the eGFR calculation approach that does not have a coefficient for race that conforms to the NKF-ASN Task Force Recommendations. Performed By: #### 4 6932 #### LAB [address] [place], [place] [address] David Mcclain M.D. [id number] Creatinine [Mass/Vol] 0.94 mg/dL Normal 0.60-1.10 [facility] Comment on above: Order Comment: [facility] has implemented the eGFR calculation approach that does not have a coefficient for race that conforms to the NKF-ASN Task Force Recommendations. Performed By: #### 4 6932 #### LAB [address] [address] David Mcclain M.D. [id number] EGFR 68 mL/min/1.73 m2 Normal >=60 [facility] Comment on above: Order Comment: [facility] has implemented the eGFR calculation approach that does not have a coefficient for race that conforms to the NKF-ASN Task Force Recommendations. Result Comment: Velasquez mated GFR was calculated using the 2020 CKD-EPI creatinine equation. Performed By: #### 4 6932 #### LAB [address] [place], [place] [address] David Mcclain M.D. [id number] Glucose [Mass/Vol] 140 mg/dL High 65-99 [facility] Comment on above: Order Comment: [facility] has implemented the eGFR calculation approach that does not have a coefficient for race that conforms to the NKF-ASN Task Force Recommendations. Performed By: #### 4 6932 #### [facility] [address] [place], [place] [address] David Mcclain M.D. [id number] HCO3 (Bld) [Moles/Vol] 25 mmol/L Normal 21-32 [facility] Comment on above: Order Comment: [facility] has implemented the eGFR calculation approach that does not have a coefficient for race that conforms to the NKF-ASN Task Force Recommendations. Performed By: #### 4 6932 #### LAB [address] [place], [place] [address] David Mcclain M.D. [id number] Potassium [Moles/Vol] 4.2 mmol/L Normal 3.5-5.1 [facility] Comment on above: Order Comment: [facility] has implemented the eGFR calculation approach that does not have a coefficient for race that conforms to the NKF-ASN Task Force Recommendations. Performed By: #### 4 6932 #### LAB [address] [place], [place] [address] David Mcclain M.D. [id number] Protein [Mass/Vol] 7.5 g/dL Normal 6.0-8.0 [facility] Comment on above: Order Comment: [facility] has implemented the eGFR calculation approach that does not have a coefficient for race that conforms to the NKF-ASN Task Force Recommendations. Performed By: #### 4 6932 #### LAB [address] [address] David Mcclain M.D. [id number] Sodium [Moles/Vol] 142 mmol/L Normal 135-145 [facility] Comment on above: Order Comment: [facility] has implemented the eGFR calculation approach that does not have a coefficient for race that conforms to the NKF-ASN Task Force Recommendations. Performed By: #### 4 6932 #### LAB [address] [id number] David Mcclain M.D. [id number] Urea nitrogen [Mass/Vol] 30 mg/dL High 8-25 [facility] Comment on above: Order Comment: [facility] has implemented the eGFR calculation approach that does not have a coefficient for race that conforms to the NKF-ASN Task Force Recommendations. Performed By: #### 4 6932 #### LAB [address] [place], [place] [address] David Mcclain M.D. [id number] Urea nitrogen/Creatinine [Mass ratio] 31.9 mg/mg High 10.0-20.0 [facility] Comment on above: Order Comment: [facility] has implemented the eGFR calculation approach that does not have a coefficient for race that conforms to the NKF-ASN Task Force Recommendations. Performed By: #### 4 6932 #### LAB [address] [place], [place] [address] David Mcclain M.D. [id number] COVID-19/INFLUENZA A,B MOLEC ULARon 07-19-2024 SARS-CoV-2 (COVID-19) Ab IA Ql SARS-COV-2 (LEE ANN) Not Detected INFLUENZA A (LEE ANN) Not Detected INFLUENZA B (LEE ANN) Not Detected Normal Not Detected [facility] Comment on above: Performed By: #### L [id number] #### LAB [address] [place], [place] [address] David Mcclain M.D. [id number] CT CERVICAL SPINE WITHOUT CO NTRASTon 07-19-2024 [...] cervical canal hematoma. DEGENERATIVE CHANGES: There is lasy-qq-tmmftnux multilevel discogenic disease and degenerative facet and [...] and th (more content not included)... Normal [facility] Comment on above: Order Comment: Injur [...] cervical canal hematoma. DEGENERATIVE CHANGES: There is itua-mb-wftcryde multilevel discogenic disease and degenerative facet and [...] and th (more content not included)... Normal [facility] Comment on above: Order Comment: Injur [...] cervical canal hematoma. DEGENERATIVE CHANGES: There is ojcn-zg-aygudznr multilevel discogenic disease and degenerative facet and [...] and th (more content not included)... Normal [facility] Comment on above: Order Comment: Injur y/Trauma or Illness?:Illness/OtherHow long have you had these symptoms (acute/chronic)?:AcuteReason for exam?:frequent falls, head pain and back painType of Exam?:InitialAdditional signs and symptoms?:fall ED Prov Noteon 07-19-2024 ED Prov Note [facility] EMERGENCY DEPARTMENT ATTENDING NOTE: NAME: Shaji Esquivel CSN: [id number] 63 y.o. PCP: Zara Evans DO History: Chief Complaint: Fall HPI: 63-year-old female past medical history of hypertension hyperlipidemia diabetes subarachnoid hemorrhage presents to the emergency department from care home assisted living facility for evaluation of multiple falls that been progressively worsening over the past 2 weeks. No specific alleviating or aggravating factors. Today, per oncology rep, patient fell from chair hit back of [...] answer Stress: Patient Unable To Answer (07/13/2024) [employer] - Occupational Stress Questionnaire Feeling of Stress : Patient unable to answer Social Connections: Patient Unable To Answer (07/13/2024) Social Connection and Isolation Panel [NHANES] Frequency of Communication with Friends and Family: Patient unable to answer Frequency of Social Gatherings with Friends and Family: Patient unable to answer Attends [employer] Services: Patient unable to answer Active Member [...] total) on top of tongue nightly . lzhjonxq-pec-ywxawbg fumarate 15 mg iron Tab Take 1 tablet by mouth every morning . MULTIVITAMIN ORAL Take (more content not included)... Normal [facility] LIPASEon 07-19-2024 Lipase [Catalytic activity/Vol] 56 U/L Normal 15-65 [facility] Comment on above: Performed By: #### 4 6971 #### LAB [address] [address] David Mcclain M.D. [id number] POC GLUCOSE - [facility] 025 Glucose [Mass/Vol] 124 mg/dL High 65- [facility] Comment on above: Performed By: #### 4 6979 #### LAB [address] [place], [place] [address] David Mcclain M.D. [id number] Glucose [Mass/Vol] 125 mg/dL High 65-99 [facility] Comment on above: Performed By: #### 4 6945 #### LAB [address] [id number] David Mcclain M.D. [id number] PT/INRon 07-19-2024 INR Coag (PPP) [Relative time] 1.0 {INR} Normal 0.8-1.1 [facility] Comment on above: Order Comment: Chantel saunders the induction phase of oral anticoagulation, the INR may not reflect the anticoagulation status of the patient. Therapeutic ranges for INR's are:Most clinical situations: INR 2.0-3.0Mechanical Prosthetic Valve: INR 2.5-3.5Critical: INR >5.0 Performed By: #### 4 6963 #### LAB [address] [address] David Mcclain M.D. [id number] PT Coag (PPP) [Time] 13.2 s Normal 11.8-14.3 [facility] Comment on above: Order Comment: Chantel saunders the induction phase of oral anticoagulation, the INR may not reflect the anticoagulation status of the patient. Therapeutic ranges for INR's are:Most clinical situations: INR 2.0-3.0Mechanical Prosthetic Valve: INR 2.5-3.5Critical: INR >5.0 Performed By: #### 4 6995 #### LAB [address] [address] David Mcclain M.D. [id number] T4, FREEon 07-19-2024 Free T4 [Mass/Vol] 1.6 ng/dL Normal 0.7-1.7 [facility] Comment on above: Performed By: #### 4 6594 #### LAB [address] [address] David Mcclain M.D. [id number] TROPONINon 07-19-2024 BASELINE TROPONIN T NG/L 18 ng/L Off scale high <=14 [facility] Comment on above: Performed By: #### 4 6929 #### LAB [address] [address] David Mcclain M.D. [id number] TROPONIN T INTERPRETATION Possible acute cardiac injury. Normal [facility] Comment on above: Performed By: #### 4 6932 #### MH LAB [address] [address] David Mcclain M.D. [id number] TSHon 07-19-2024 TSH Qn 3.18 m[IU]/L Normal 0.27-4.20 [facility] Comment on above: Performed By: #### 4 6613 #### LAB [address] [address] David Mcclain M.D. [id number] URINALYSISon 07-19-2024 BACTERIA, URINE Many Abnormal None Seen [facility] Comment on above: Order Comment: Micro scopic examination is performed on all urinalysis samples and only positive findings are reported. The test for blood on the chemical analytic portion of urinalysis may also be positive due to hemoglobinuria and myoglobinuria and if red blood cells are present they are quantified by microscopic examination. Performed By: #### 4 6932 #### LAB [address] [address] David Mcclain M.D. [id number] BILIRUBIN, URINE Negative Normal Negative [facility] Comment on above: Order Comment: Micro scopic examination is performed on all urinalysis samples and only positive findings are reported. The test for blood on the chemical analytic portion of urinalysis may also be positive due to hemoglobinuria and myoglobinuria and if red blood cells are present they are quantified by microscopic examination. Performed By: #### 4 6932 #### LAB [address] [address] David Mcclain M.D. [id number] BLOOD, URINE Negative Normal Negative [facility] Comment on above: Order Comment: Micro scopic examination is performed on all urinalysis samples and only positive findings are reported. The test for blood on the chemical analytic portion of urinalysis may also be positive due to hemoglobinuria and myoglobinuria and if red blood cells are present they are quantified by microscopic examination. Performed By: #### 4 6932 #### LAB [address] [address] David Mcclain M.D. [id number] Clarity (U) Cloudy Abnormal Clear [facility] Comment on above: Order Comment: Micro scopic examination is performed on all urinalysis samples and only positive findings are reported. The test for blood on the chemical analytic portion of urinalysis may also be positive due to hemoglobinuria and myoglobinuria and if red blood cells are present they are quantified by microscopic examination. Performed By: #### 4 6932 #### LAB [address] [address] David Mcclain M.D. [id number] Color (U) Yellow Normal Colorless, Yellow [facility] Comment on above: Order Comment: Micro scopic examination is performed on all urinalysis samples and only positive findings are reported. The test for blood on the chemical analytic portion of urinalysis may also be positive due to hemoglobinuria and myoglobinuria and if red blood cells are present they are quantified by microscopic examination. Performed By: #### 4 6932 #### LAB [address] [place] [address] David Mcclain M.D. [id number] Glucose Ql (U) >=500 Abnormal Negative, >=1000 [facility] Comment on above: Order Comment: Micro scopic examination is performed on all urinalysis samples and only positive findings are reported. The test for blood on the chemical analytic portion of urinalysis may also be positive due to hemoglobinuria and myoglobinuria and if red blood cells are present they are quantified by microscopic examination. Performed By: #### 4 6932 #### LAB [address] [place] [address] David Mcclain M.D. [id number] Ketones Ql (U) Trace Abnormal Negative [facility] Comment on above: Order Comment: Micro scopic examination is performed on all urinalysis samples and only positive findings are reported. The test for blood on the chemical analytic portion of urinalysis may also be positive due to hemoglobinuria and myoglobinuria and if red blood cells are present they are quantified by microscopic examination. Performed By: #### 4 6932 #### LAB [address] [address] David Mcclain M.D. [id number] Leukocyte esterase Test strip Ql (U) Small Abnormal Negative [facility] Comment on above: Order Comment: Micro scopic examination is performed on all urinalysis samples and only positive findings are reported. The test for blood on the chemical analytic portion of urinalysis may also be positive due to hemoglobinuria and myoglobinuria and if red blood cells are present they are quantified by microscopic examination. Performed By: #### 4 6932 #### LAB [address] [address] David Mcclain M.D. [id number] MUCUS, URINE Rare Normal None Seen, Rare [facility] Comment on above: Order Comment: Micro scopic examination is performed on all urinalysis samples and only positive findings are reported. The test for blood on the chemical analytic portion of urinalysis may also be positive due to hemoglobinuria and myoglobinuria and if red blood cells are present they are quantified by microscopic examination. Performed By: #### 4 6932 #### LAB [address] [place] [address] David Mcclain M.D. [id number] NITRITE, URINE Negative Normal Negative [facility] Comment on above: Order Comment: Micro scopic examination is performed on all urinalysis samples and only positive findings are reported. The test for blood on the chemical analytic portion of urinalysis may also be positive due to hemoglobinuria and myoglobinuria and if red blood cells are present they are quantified by microscopic examination. Performed By: #### 4 6932 #### LAB [address] [address] David Mcclain M.D. [id number] pH (U) 6.5 [pH] Normal 5.0-7.0 [facility] Comment on above: Order Comment: Micro scopic examination is performed on all urinalysis samples and only positive findings are reported. The test for blood on the chemical analytic portion of urinalysis may also be positive due to hemoglobinuria and myoglobinuria and if red blood cells are present they are quantified by microscopic examination. Performed By: #### 4 6932 #### LAB [address] [address] David Mcclain M.D. [id number] PROTEIN, URINE Negative Normal Negative [facility] Comment on above: Order Comment: Micro scopic examination is performed on all urinalysis samples and only positive findings are reported. The test for blood on the chemical analytic portion of urinalysis may also be positive due to hemoglobinuria and myoglobinuria and if red blood cells are present they are quantified by microscopic examination. Performed By: #### 4 6932 #### LAB [address] [address] David Mcclain M.D. [id number] Specific gravity (U) [Rel density] 1.028 High 1.005-1.025 [facility] Comment on above: Order Comment: Micro scopic examination is performed on all urinalysis samples and only positive findings are reported. The test for blood on the chemical analytic portion of urinalysis may also be positive due to hemoglobinuria and myoglobinuria and if red blood cells are present they are quantified by microscopic examination. Performed By: #### 4 6932 #### [facility] [address] [address] David Mcclain M.D. [id number] SQUAMOUS EPITHELIAL 8 /hpf High 0-4 [facility] Comment on above: Order Comment: Micro scopic examination is performed on all urinalysis samples and only positive findings are reported. The test for blood on the chemical analytic portion of urinalysis may also be positive due to hemoglobinuria and myoglobinuria and if red blood cells are present they are quantified by microscopic examination. Performed By: #### 4 6932 #### LAB [address] [address] David Mcclain M.D. [id number] UROBILINOGEN, URINE <2.0 Normal <2.0 [facility] Comment on above: Order Comment: Micro scopic examination is performed on all urinalysis samples and only positive findings are reported. The test for blood on the chemical analytic portion of urinalysis may also be positive due to hemoglobinuria and myoglobinuria and if red blood cells are present they are quantified by microscopic examination. Performed By: #### 4 6932 #### LAB [address] [address] David Mcclain M.D. [id number] WBC LM.HPF (Urine sed) [#/Area] 14 /[HPF] High 0-5 [facility] Comment on above: Order Comment: Micro [...] 4 6932 #### LAB [address] [place], [place] [address] David Mcclain M.D. [id number] XR CHEST PA/APon 07-19-2024 XR CHEST PA/AP [...] FriJul 19, 2024 7:52:01 AM EST Normal [facility] Comment on above: Order Comment: Injur [...] 8:28:53 AM EST [facility] Comment on above: Order Comment: Injur [...] 8:28:44 AM EST [facility] Comment on above: Order Comment: Injur [...] FriJul 14, 2024 5:20:31 PM EST Normal [facility] Comment on above: Order Comment: Injur [...] FriJul 14, 2024 5:17:12 PM EST Normal [facility] Comment on above: Order Comment: Injur y/Trauma or Illness?:Injury/Trauma How long have you had these symptoms (acute/chronic)?:Acute Reason for exam?:fall History of cancer?:u Surgeries, chemotherapy, or radiation?:u Type of Exam?:Initial Mechanism of injury?:. ED Prov Noteon 07-14-2024 ED Prov Note [facility] EMERGENCY DEPARTMENT ATTENDING NOTE: NAME: Shaji Esquivel CSN: [id number] 63 y.o. PCP: Zara Evans DO History: Chief Complaint: Fall HPI: The history was obtained from the patient and long-term. Shaji is a 63 y.o. female who [...] answer Stress: Patient Unable To Answer (07/13/2024) [employer] - Occupational Stress Questionnaire Feeling of Stress : Patient unable to answer Social Connections: Patient Unable To Answer (07/13/2024) Social Connection and Isolation Panel [NHANES] Frequency of Communication with Friends and Family: Patient unable to answer Frequency of Social Gatherings with Friends and Family: Patient unable to answer Attends [employer]: Patient unable to answer Active Member [...] (500 mg (more content not included)... Normal [facility] XR PELVIS 1 VIEW (STANDARD)o n [...] FriJul 14, 2024 5:45:52 PM EST Normal [facility] Comment on above: Order Comment: Injur y/Trauma or Illness?:Illness/OtherHow long have you had these symptoms (acute/chronic)?:AcuteReason for exam?:Fall, history of dementia, no LOC, right-sided forehead hematoma, poor historianHistory of cancer?:uSurgeries, chemotherapy, or radiation?:uType of Exam?:InitialAdditional signs and symptoms?:. No Panel Informationon 07-09 Radiology Study observation (narrative) [facility] Work Phone: XR HIP RIGHT WITH PELVIS WHE N PERFORMED 2 OR 3 VIEWSon 07-09-2024 XR HIP RIGHT WITH PELVIS WHEN PERFORMED 2 OR 3 VIEWS Interpreted By: Alexys Moran, STUDY: XR HIP RIGHT WITH PELVIS WHEN PERFORMED 2 OR 3 VIEWS; ; 07/09/2024 12:08 pm INDICATION: Signs/Symptoms:pain after fall. COMPARISON: 12/13/2016 ACCESSION NUMBER(S): [id number] ORDERING CLINICIAN: MILES HE FINDINGS: Right hip, three views There is no acute fracture dislocation. There is no malalignment. No significant degenerative changes seen IMPRESSION: No acute fracture seen in the right hip. If there is persistent clinical concern CT can be performed for further evaluation MACRO: None Signed by: Alexys Moran 07/09/2024 12:14 PM Dictation workstation: [id number] [facility] XR Hip Viewson 07-09-2024 No acute fracture se en in the right hip. If there is persistent clinical concern CT can be performed for further evaluation MACRO: None Signed by: Alexys Moran 07/09/2024 12:14 PM Dictation workstation: [id number] [facility] Interpreted By: Alexys Combs, STUDY: XR HIP RIGHT WITH PELVIS WHEN PERFORMED 2 OR 3 VIEWS; ; 07/09/2024 12:08 pm INDICATION: Signs/Symptoms:pain after fall. COMPARISON: 12/13/2016 ACCESSION NUMBER(S): [id number] ORDERING CLINICIAN: MILES HE FINDINGS: Right hip, three views There is no acute fracture dislocation. There is no malalignment. No significant degenerative changes seen [facility] Alexys Moran MD - 07/09/2024 Interpreted By: Alexys Moran STUDY: XR HIP RIGHT WITH PELVIS WHEN PERFORMED 2 OR 3 VIEWS; ; 07/09/2024 12:08 pm INDICATION: Signs/Symptoms:pain after fall. COMPARISON: 12/13/2016 ACCESSION NUMBER(S): [id number] ORDERING CLINICIAN: MILES HE FINDINGS: Right hip, three views There is no acute fracture dislocation. There is no malalignment. No significant degenerative changes seen IMPRESSION: No acute fracture seen in the right hip. If there is persistent clinical concern CT can be performed for further evaluation MACRO: None Signed by: Alexys Moran 07/09/2024 12:14 PM Dictation workstation: [id number] [facility] Work Phone: [facility] Work Phone: XR KNEE RIGHT 1-2 VIEWSon XR KNEE RIGHT 1-2 VIEWS Interpreted By: Alexys Moran, STUDY: XR KNEE RIGHT 1-2 VIEWS; ; 07/09/2024 12:08 pm INDICATION: Signs/Symptoms:pain after fall. COMPARISON: 01/29/2020 ACCESSION NUMBER(S): [id number] ORDERING CLINICIAN: MILES HE FINDINGS: Right knee, four views There is no evidence of a fracture. There is no dislocation. There is no effusion. Minimal osteophytosis present in the patella IMPRESSION: No acute abnormality in the right knee MACRO: None Signed by: Alexys Moran 07/09/2024 12:15 PM Dictation workstation: [id number] [facility] XR Knee - right 1 or 2 Views on 07-09-2024 No acute abnormality in the right knee MACRO: None Signed by: Alexys Moran 07/09/2024 12:15 PM Dictation workstation: [id number] MMODAL Interpreted By: Alexys Combs, STUDY: XR KNEE RIGHT 1-2 VIEWS; ; 07/09/2024 12:08 pm INDICATION: Signs/Symptoms:pain after fall. COMPARISON: 01/29/2020 ACCESSION NUMBER(S): [id number] ORDERING CLINICIAN: MILES HE FINDINGS: Right knee, four views There is no evidence of a fracture. There is no dislocation. There is no effusion. Minimal osteophytosis present in the patella [facility] Alexys Moran MD - 07/09/2024 Interpreted By: Alexys Moran, STUDY: XR KNEE RIGHT 1-2 VIEWS; ; 07/09/2024 12:08 pm INDICATION: Signs/Symptoms:pain after fall. COMPARISON: 01/29/2020 ACCESSION NUMBER(S): [id number] ORDERING CLINICIAN: MILES HE FINDINGS: Right knee, four views There is no evidence of a fracture. There is no dislocation. There is no effusion. Minimal osteophytosis present in the patella IMPRESSION: No acute abnormality in the right knee MACRO: None Signed by: Alexys Moran 07/09/2024 12:15 PM Dictation workstation: [id number] [facility] Work Phone: XR Knee - right 1 or 2 Views Ordered By: Alexys Moran on 07-09-2024 [facility] Work Phone: Comprehensive metabolic 2000 panelon 06-28-2024 Albumin BCP dye [Mass/Vol] 4.5 g/dL Normal 3.4-5.0 [facility] Comment on above: Performed By: #### 2 4323-8 #### ALEKSANDR MEANS ([id number]) [facility] ([facility]) [address] [place] [address] ALP [Catalytic activity/Vol] 54 U/L Normal 33-136 [facility] Comment on above: Performed By: #### 2 4323-8 #### ALEKSANDR MEANS ([id number]) [facility] ([facility]) [address] [place] [address] ALT With P-5'-P [Catalytic activity/Vol] 16 U/L Normal 7-45 [facility] Comment on above: Result Comment: Haylee ents treated with Sulfasalazine may generate falsely decreased results for ALT. Performed By: #### 2 4323-8 #### ALEKSANDR MEANS ([id number]) [facility] ([facility]) [address] [place] [address] Anion gap [Moles/Vol] 17 mmol/L Normal 10-20 [facility] Comment on above: Performed By: #### 2 4323-8 #### ALEKSANDR MEANS ([id number]) [facility] ([facility]) [address] [place] [address] AST With P-5'-P [Catalytic activity/Vol] 17 U/L Normal 9-39 [facility] Comment on above: Performed By: #### 2 4323-8 #### ALEKSANDR MEANS ([id number]) [facility] ([facility]) [address] [place] [address] Bilirubin [Mass/Vol] 0.3 mg/dL Normal 0.0-1.2 [facility] Comment on above: Performed By: #### 2 4323-8 #### ALEKSANDR MEANS ([id number]) [facility] ([facility]) [address] [place] [address] Calcium [Mass/Vol] 9.7 mg/dL Normal 8.6-10.3 [facility] Comment on above: Performed By: #### 2 4323-8 #### ALEKSANDR MEANS ([id number]) [facility] ([facility]) [address] [place] [address] Chloride [Moles/Vol] 105 mmol/L Normal 98-107 [facility] Comment on above: Performed By: #### 2 4323-8 #### ALEKSANDR MEANS ([id number]) [facility] ([facility]) [address] [place] [address] 18838 CO2 [Moles/Vol] 26 mmol/L Normal 21-32 [facility] Comment on above: Performed By: #### 2 4323-8 #### ALEKSANDR MEANS ([id number]) [facility] ([facility]) [address] [place] [address]68 Creatinine [Mass/Vol] 0.81 mg/dL Normal 0.50-1.05 [facility] Comment on above: Performed By: #### 2 4323-8 #### ALEKSANDR MEANS ([id number]) [facility] ([facility]) [address] [place] [address] Glomerular filtration rate/1.73 sq M.predicted 82 mL/min/1.73m*2 Normal >60 [facility] Comment on above: Result Comment: Calc ulations of estimated GFR are performed using the 2020 CKD-EPI Study Refit equation without the race variable for the IDMS-Traceable creatinine methods. https://jasn.asnjournals.org/content/early//ASN.5076471 988 Performed By: #### 2 4323-8 #### ALEKSANDR MEANS ([id number]) [facility] ([facility]) [address] [place] [address] Glucose [Mass/Vol] 157 mg/dL High 74-99 [facility] Comment on above: Performed By: #### 2 4323-8 #### ALEKSANDR MEANS ([id number]) [facility] ([facility]) [address] [place] [address]168 Potassium [Moles/Vol] 4.7 mmol/L Normal 3.5-5.3 [facility] Comment on above: Performed By: #### 2 4323-8 #### ALEKSANDR MEANS ([id number]) [facility] ([facility]) [address] [place] [address] Protein [Mass/Vol] 7.1 g/dL Normal 6.4-8.2 [facility] Comment on above: Performed By: #### 2 4323-8 #### ALEKSANDR MEANS ([id number]) [facility] ([facility]) [address] [place] [address] 15337 Sodium [Moles/Vol] 143 mmol/L Normal 136-145 [facility] Comment on above: Performed By: #### 2 4323-8 #### ALEKSANDR MEANS ([id number]) [facility] ([facility]) [address] [place] [address]4084 Urea nitrogen [Mass/Vol] 29 mg/dL High - [facility] Comment on above: Performed By: #### 2 4323-8 #### ALEKSANDR MEANS ([id number]) [facility] ([facility]) [address] [place] [address]90[address] HbA1c (Bld) [Mass fraction]o n 06-28-2024 Average glucose Estimated from glycated hemoglobin (Bld) [Mass/Vol] 171 mg/dL Normal Not Established [facility] Comment on above: Order Comment: Diagn osis of Wallyprl-PsgtzpPdh-Ukqbbkkn: < or = 5.6%Increased risk for developing diabetes: 5.7-6.4%Diagnostic of diabetes: > or = 6.5% Performed By: #### 2 4331-1 #### ALEKSANDR MEANS ([id number]) [facility] ([facility]) [address] [place] [address] Hemoglobin A1c/Hemoglobin.to sharla 06-28-2024 HbA1c (Bld) [Mass fraction] 7.6 % High See comment [facility] Comment on above: Order Comment: Diagn osis of Zszjqnoj-ZhwrctEck-Yrnyoenm: < or = 5.6%Increased risk for developing diabetes: 5.7-6.4%Diagnostic of diabetes: > or = 6.5% Performed By: #### 2 4331-1 #### ALEKSANDR MEANS ([id number]) [facility] ([facility]) [address] [place], [place] [id number] TSH WITH REFLEX TO FREE T4 I F ABNORMALon 06-28-2024 TSH Qn 1.87 m[IU]/L Normal 0.44-3.98 [facility] Comment on above: Order Comment: TSH t esting is performed using different testing methodology at [facility] than at other [facility]. Direct result comparisons should only be made within the same method. Performed By: #### T URIEL #### ALEKSANDR MEANS ([id number]) [facility] ([facility]) [address] [place] [address] Bacteria identifiedon 2024 Bacteria identified Cx Nom (U) Test: Urine Culture Specimen Source: Clean Catch/Voided Specimen Type: Urine Specimen Date: 06/11/2024 153 Result Date: 06/15/2024 135 Result Status: Final result Abnormal: Yes Resulting Lab: [facility] [address] [id number] CULTURE >=100,000 CFU/mL Escherichia coli (Abnormal) SUSCEPTIBILITY Escherichia coli METHOD MICROSCAN --- AMPICILLIN <=8.000 ug/ml Susceptible CEFAZOLIN <=2 ug/ml Susceptible CEFAZOLIN (UNCOMPLICATED UTIS ONLY) <=2 ug/ml Susceptible CIPROFLOXACIN <=0.250 ug/ml Susceptible GENTAMICIN <=2.000 ug/ml Susceptible NITROFURANTOIN <=32 ug/ml Susceptible PIPERACILLIN/TAZOBACTAM <=8.000 ug/ml Susceptible TRIMETHOPRIM/SULFAMETHO XAZOLE <=2/38 ug/ml Susceptible Abnormal [facility] Comment on above: Performed By: #### 6 30-4 ####BATSHEVA Reyes ([id number])[facility] ([facility])[address] [place] [address] Urinalysis microscopic panel Auto Ql (U)on 06-11-2024 Bacteria Auto (Urine sed) [#/Area] 1+ /HPF Abnormal NONE SEEN [facility] Comment on above: Performed By: #### 5 3315-8 ####ALEKSANDR MEANS ([id number])[facility] ([facility])[address] [place] [address] Epithelial cells.squamous Auto (Urine sed) [#/Area] 1-9 (SPARSE) Normal Reference range not established. [facility] Comment on above: Performed By: #### 5 3315-8 ####ALEKSANDR MEANS ([id number])[facility] ([facility])[address] [place] [address] Mucus Auto (Urine sed) [#/Area] FEW Normal Reference range not established. [facility] Comment on above: Performed By: #### 5 3315-8 ####ALEKSANDR MEANS ([id number])[facility] ([facility])[address] [place] [address] 59962 RBC Auto (Urine sed) [#/Area] 1-2 Normal NONE, 1-2, 3-5 [facility] Comment on above: Performed By: #### 5 3315-8 ####ALEKSANDR MEANS ([id number])[facility] ([facility])[address] [place] [address]61 WBC Auto (Urine sed) [#/Area] 1-5 Normal 1-5, NONE [facility] Comment on above: Performed By: #### 5 9935-8 ####ALEKSANDR MEANS ([id number])[facility] ([facility])[address] [place] [address]38 Comprehensive metabolic 2000 panelon 03-12-2024 Albumin BCP dye [Mass/Vol] 4.3 g/dL Normal 3.4-5.0 [facility] Comment on above: Performed By: #### 2 432-8 #### ALEKSANDR MEANS ([id number]) [facility] ([facility]) [address] [place] [address] ALP [Catalytic activity/Vol] 78 U/L Normal 33-136 [facility] Comment on above: Performed By: #### 2 432-8 #### ALEKSANDR MEANS ([id number]) [facility] ([facility]) [address] [place] [address] ALT With P-5'-P [Catalytic activity/Vol] 17 U/L Normal 7-45 [facility] Comment on above: Result Comment: Haylee ents treated with Sulfasalazine may generate falsely decreased results for ALT. Performed By: #### 2 4322-8 #### ALEKSANDR MEANS ([id number]) [facility] ([facility]) [address] [place] [address] Anion gap [Moles/Vol] 14 mmol/L Normal 10-20 [facility] Comment on above: Performed By: #### 2 4322-8 #### ALEKSANDR MEANS ([id number]) [facility] ([facility]) [address] [place] [address] AST With P-5'-P [Catalytic activity/Vol] 18 U/L Normal 9-39 [facility] Comment on above: Performed By: #### 2 432-8 #### ALEKSANDR MEANS ([id number]) [facility] ([facility]) [address] [place] [address] Bilirubin [Mass/Vol] 0.3 mg/dL Normal 0.0-1.2 [facility] Comment on above: Performed By: #### 2 4322-8 #### ALEKSANDR MEANS ([id number]) [facility] ([facility]) [address] [place] [address] Calcium [Mass/Vol] 9.9 mg/dL Normal 8.6-10.3 [facility] Comment on above: Performed By: #### 2 432-8 #### ALEKSANDR MEANS ([id number]) [facility] ([facility]) [address] [place] [address] Chloride [Moles/Vol] 102 mmol/L Normal 98-107 [facility] Comment on above: Performed By: #### 2 4323-8 #### ALEKSANDR MEANS ([id number]) [facility] ([facility]) [facility] [place] [address] CO2 [Moles/Vol] 30 mmol/L Normal 21-32 [facility] Comment on above: Performed By: #### 2 4323-8 #### ALEKSANDR MEANS ([id number]) [facility] ([facility]) [address] [place] [address] Creatinine [Mass/Vol] 0.94 mg/dL Normal 0.50-1.05 [facility] Comment on above: Performed By: #### 2 4323-8 #### ALEKSANDR MEANS ([id number]) [facility] ([facility]) [address] [place] [address] Glomerular filtration rate/1.73 sq M.predicted 68 mL/min/1.73m*2 Normal >60 [facility] Comment on above: Result Comment: Calc ulations of estimated GFR are performed using the 2020 CKD-EPI Study Refit equation without the race variable for the IDMS-Traceable creatinine methods. https://jasn.asnjournals.org/content/early//ASN.2470049 988 Performed By: #### 2 4323-8 #### ALEKSANDR MEANS ([id number]) [facility] ([facility]) [address] [place] [address] Glucose [Mass/Vol] 181 mg/dL High 74-99 [facility] Comment on above: Performed By: #### 2 4323-8 #### ALEKSANDR MEANS ([id number]) [facility] ([facility]) [address] [place] [address] Potassium [Moles/Vol] 4.6 mmol/L Normal 3.5-5.3 [facility] Comment on above: Performed By: #### 2 4323-8 #### ALEKSANDR MEANS ([id number]) [facility] ([facility]) [address] [place] [address] Protein [Mass/Vol] 7.3 g/dL Normal 6.4-8.2 [facility] Comment on above: Performed By: #### 2 4323-8 #### ALEKSANDR MEANS ([id number]) [facility] ([facility]) [address] [place] [address] Sodium [Moles/Vol] 141 mmol/L Normal 136-145 [facility] Comment on above: Performed By: #### 2 4323-8 #### ALEKSANDR MEANS ([id number]) [facility] ([facility]) [address] [place] [address] Urea nitrogen [Mass/Vol] 29 mg/dL High 6-23 [facility] Comment on above: Performed By: #### 2 4323-8 #### ALEKSANDR MEANS ([id number]) [facility] ([facility]) [address] [place] [address] HbA1c (Bld) [Mass fraction]o n 03-12-2024 Average glucose Estimated from glycated hemoglobin (Bld) [Mass/Vol] 177 mg/dL Normal Not Established [facility] Comment on above: Order Comment: Diagn osis of Diabetes-Adults Non-Diabetic: < or = 5.6% Increased risk for developing diabetes: 5.7-6.4% Diagnostic of diabetes: > or = 6.5% Performed By: #### 4 548-4 #### BATSHEVA Reyes ([id number]) [facility] ([facility]) [address] [place] [address] Hemoglobin A1c/Hemoglobin.to sharla 03-12-2024 HbA1c (Bld) [Mass fraction] 7.8 % High See comment [facility] Comment on above: Order Comment: Diagn osis of Diabetes-Adults Non-Diabetic: < or = 5.6% Increased risk for developing diabetes: 5.7-6.4% Diagnostic of diabetes: > or = 6.5% Performed By: #### 4 548-4 #### BATSHEVA Reyes ([id number]) [facility] ([facility]) [address] [place] [address] TSH WITH REFLEX TO FREE T4 I F ABNORMALon 03-12-2024 TSH Qn 3.58 m[IU]/L Normal 0.44-3.98 [facility] Comment on above: Order Comment: TSH t esting is performed using different testing methodology at [facility] than at other [facility]. Direct result comparisons should only be made within the same method. Performed By: #### T SUZANNES #### BRANDON CLARY ([id number]) [facility] ([facility]) [address] [place] [address] XR WRIST LEFT 2 VIEWSon 01-08 XR [...] 2:11:30 PM EDT [facility] Comment on above: Order Comment: Injur y/Trauma or Illness?:Injury/TraumaHow long have you had these symptoms (acute/chronic)?:AcuteReason for exam?:Left wrist painHistory of cancer?:uSurgeries, chemotherapy, or radiation?:uType of Exam?:InitialMechanism of injury?:Fall ECG 12 LeadOrdered By: Roseanne Shell on 01-30-2024 Atrial Rate 89 BPM [facility] Work Phone: P [place] 42 degrees [facility] Work Phone: P Offset 170 ms [facility] Work Phone: P Onset 127 [facility] Work Phone: AR Interval 174 ms [facility] Work Phone: Q Onset 214 ms [facility] Work Phone: QRS Count 14 beats [facility] Work Phone: QRS Duration 82 ms [facility] Work Phone: QT Interval 388 ms [facility] Work Phone: QTC Calculation(Bazett) 472 ms [facility] Work Phone: QTC Fredericia 442 ms [facility] Work Phone: R [place] 26 degrees [facility] Work Phone: T [place] 67 degrees [facility] Work Phone: T Offset 408 ms [facility] Work Phone: Ventricular Rate 89 BPM [facility] Work Phone: [facility] Work Phone: ECG 12 Leadon 01-30-2024 Normal sinus rhythm Normal ECG No previous ECGs available See ED provider note for full interpretation and clinical correlation Confirmed by Roseanne Shell ([id number]) on 01/30/2024 9:08:44 PM MUSE Roseanne Shell PA-C - 01/30/2024 Normal sinus rhythm Normal ECG No previous ECGs available See ED provider note for full interpretation and clinical correlation Confirmed by Roseanne Shell ([id number]) on 01/30/2024 9:08:44 PM [facility] Work Phone: ECG 12-LEADon 01-29-2024 ECG 12-LEAD Ventricular Rate 89 Atrial Rate 89 P-R Interval 174 QRS Duration 82 Q-T Interval 388 QTC Calculation(Bazett) 472 P Plymouth 42 R [place] 26 T [place] 67 QRS Count 14 Q Onset 214 P Onset 127 P Offset 170 T Offset 408 QTC Fredericia 442 Diagnosis Normal sinus rhythm Normal ECG No previous ECGs available See ED provider note for full interpretation and clinical correlation Confirmed by Roseanne Shell ([id number]) on 01/30/2024 9:08:44 PM Normal [facility] No Panel Informationon 01-28 Radiology Study observation (narrative) [facility] Work Phone: XR FOREARM RIGHT 2 VIEWSon 0 01-29-2024 XR FOREARM RIGHT 2 VIEWS Interpreted By: Pito Kaur, STUDY: XR FOREARM RIGHT 2 VIEWS; ; 01/29/2024 7:57 am INDICATION: Signs/Symptoms:FALL TRAUMA. COMPARISON: November 2023 ACCESSION NUMBER(S): [id number] ORDERING CLINICIAN: DARIN TRUJILLO FINDINGS: No fractures [...] Pito Kaur 01/29/2024 8:33 AM Dictation workstation: [id number] [facility] XR KNEE RIGHT 1-2 VIEWSon XR KNEE RIGHT 1-2 VIEWS Interpreted By: Pito Kaur, STUDY: XR KNEE RIGHT 1-2 VIEWS; ; 01/29/2024 7:57 am INDICATION: Signs/Symptoms:FALL/TRA LAST. COMPARISON: None. ACCESSION NUMBER(S): [id number] ORDERING CLINICIAN: DARIN TRUJILLO FINDINGS: No fractures or destructive lesions are identified. The joint spaces and articular surfaces are maintained. The alignment is anatomic. The soft tissues are unremarkable. IMPRESSION: Normal right knee radiographs. Signed by: Pito Kaur 01/29/2024 8:37 AM Dictation workstation: [id number] [facility] XR Knee - right 1 or 2 Views on 01-29-2024 Normal right knee radiographs. Signed by: Pito Kaur 01/29/2024 8:37 AM Dictation workstation: [id number] MMODAL Interpreted By: Pito Kaur, STUDY: XR KNEE RIGHT 1-2 VIEWS; ; 01/29/2024 7:57 am INDICATION: Signs/Symptoms:FALL/TRA LAST. COMPARISON: None. ACCESSION NUMBER(S): [id number] ORDERING CLINICIAN: DARIN TRUJILLO FINDINGS: No fractures or destructive lesions are identified. The joint spaces and articular surfaces are maintained. The alignment is anatomic. The soft tissues are unremarkable. MMODAL Pito Kaur MD - 01/29/2024 Interpreted By: Pito Kaur, STUDY: XR KNEE RIGHT 1-2 VIEWS; ; 01/29/2024 7:57 am INDICATION: Signs/Symptoms:FALL/TRA LAST. COMPARISON: None. ACCESSION NUMBER(S): [id number] ORDERING CLINICIAN: DARIN TRUJILLO FINDINGS: No fractures or destructive lesions are identified. The joint spaces and articular surfaces are maintained. The alignment is anatomic. The soft tissues are unremarkable. IMPRESSION: Normal right knee radiographs. Signed by: Pito Kaur 01/29/2024 8:37 AM Dictation workstation: [id number] [facility] Work Phone: XR Knee - right 1 or 2 Views Ordered By: Pito Kaur on 01-29-2024 [facility] Work Phone: XR Radius and Ulna - right 2 Viewson 01-29-2024 No acute fracture. Persistent dorsal subluxation of the distal ulna in relation to the distal radius; correlate clinically. Signed by: Pito Kaur 01/29/2024 8:33 AM Dictation workstation: [id number] MMODAL Interpreted By: Pito Kaur, STUDY: XR FOREARM RIGHT 2 VIEWS; ; 01/29/2024 7:57 am INDICATION: Signs/Symptoms:FALL TRAUMA. COMPARISON: November 2023 ACCESSION NUMBER(S): [id number] ORDERING CLINICIAN: DARIN TRUJILLO FINDINGS: No fractures [...] Signs/Symptoms:FALL TRAUMA. COMPARISON: November 2023 ACCESSION NUMBER(S): [id number] ORDERING CLINICIAN: DARIN TRUJILLO FINDINGS: No fractures [...] Pito Kaur 01/29/2024 8:33 AM Dictation workstation: [id number] [facility] Work Phone: [facility] Work Phone: CT HEAD OR BRAIN [...] DIAGNOSIS CODES: I60.9 SAH (subarachnoid hemorrhage) ([facility]) COMPARISON: CT brain: 12/05/2023 FINDINGS: Intracranial Bleed: No evidence for acute intracranial bleed. Intracranial Mass: No evidence for mass lesion. No mass effect or midline shift. Extra-axial spaces: The ventricles are diffusely dilated due to mild generalized atrophy. White/Laguna Matter: No acute cortical infarct. There is pjgs-vz-vzfwtgfj chronic low attenuation in the white matter [...] lesion. 3. There is mild atrophy and hkrb-bb-ypaiacje chronic small vessel white matter ischemic disease. 4. Mild right pre frontal and supraorbital soft tissue swelling is improved. Workstation ID: [id number] Dictated by: JEFF MILLER on FriJan 07, 2024 12:05:25 PM EDT Transcribed by: JEFF MILLER on FriJan 07, 2024 12:05:25 PM EDT Finalized by: JEFF MILLER on FriJan 07, 2024 12:05:25 PM EDT [facility] Comment on above: Order Comment: Compl ete [...] Dec 25, 2023 3:39:07 PM EDT Normal [facility] Comment on above: Order Comment: Injur y/Trauma or Illness?:Illness/Other How long have you had these symptoms (acute/chronic)?:Acute Reason for exam?:pain History of cancer?:u Surgeries, chemotherapy, or radiation?:u Type of Exam?:Subsequent/Follow-up Additional signs and symptoms?:. BASIC METABOLIC PANELon - Anion gap [Moles/Vol] 15 mmol/L Normal 10-20 [facility] Comment on above: Order Comment: [facility] has implemented the eGFR calculation approach that does not have a coefficient for race that conforms to the NKF-ASN Task Force Recommendations. Performed By: #### 4 6932 #### LAB [address] [place], [place] [address] David Mcclain M.D. [id number] Calcium [Mass/Vol] 9.0 mg/dL Normal 8.4-10.2 [facility] Comment on above: Order Comment: [facility] has implemented the eGFR calculation approach that does not have a coefficient for race that conforms to the NKF-ASN Task Force Recommendations. Performed By: #### 4 6932 #### [facility] [address] [place] [address] David Mcclain M.D. [id number] Chloride [Moles/Vol] 105 mmol/L Normal 98-108 [facility] Comment on above: Order Comment: [facility] has implemented the eGFR calculation approach that does not have a coefficient for race that conforms to the NKF-ASN Task Force Recommendations. Performed By: #### 4 6932 #### [address] [place] [address] David Mcclain M.D. [id number] Creatinine [Mass/Vol] 0.85 mg/dL Normal 0.60-1.10 [facility] Comment on above: Order Comment: [facility] has implemented the eGFR calculation approach that does not have a coefficient for race that conforms to the NKF-ASN Task Force Recommendations. Performed By: #### 4 6932 #### [address] [place] [address] David Mcclain M.D. [id number] EGFR 77 mL/min/1.73 m2 Normal >=60 [facility] Comment on above: Order Comment: [facility] has implemented the eGFR calculation approach that does not have a coefficient for race that conforms to the NKF-ASN Task Force Recommendations. Result Comment: Velasquez mated GFR was calculated using the 2020 CKD-EPI creatinine equation. Performed By: #### 4 6932 #### [address] [place] [address] David Mcclain M.D. [id number] Glucose [Mass/Vol] 168 mg/dL High 65-99 [facility] Comment on above: Order Comment: [facility] has implemented the eGFR calculation approach that does not have a coefficient for race that conforms to the NKF-ASN Task Force Recommendations. Performed By: #### 4 6932 #### [address] [place] [address] Dvaid Mcclain M.D. [id number] HCO3 (Bld) [Moles/Vol] 25 mmol/L Normal 21-32 [facility] Comment on above: Order Comment: [facility] has implemented the eGFR calculation approach that does not have a coefficient for race that conforms to the NKF-ASN Task Force Recommendations. Performed By: #### 4 6932 #### [facility] [address] [place] [address] David Mcclain M.D. [id number] Potassium [Moles/Vol] 4.2 mmol/L Normal 3.5-5.1 [facility] Comment on above: Order Comment: [facility] has implemented the eGFR calculation approach that does not have a coefficient for race that conforms to the NKF-ASN Task Force Recommendations. Performed By: #### 4 6932 #### [address] [place] [address] David Mcclain M.D. [id number] Sodium [Moles/Vol] 141 mmol/L Normal 135-145 [facility] Comment on above: Order Comment: [facility] has implemented the eGFR calculation approach that does not have a coefficient for race that conforms to the NKF-ASN Task Force Recommendations. Performed By: #### 4 6932 #### LAB [address] [place] [id number] David Mcclain M.D. [id number] Urea nitrogen [Mass/Vol] 22 mg/dL Normal 8-25 [facility] Comment on above: Order Comment: [facility] has implemented the eGFR calculation approach that does not have a coefficient for race that conforms to the NKF-ASN Task Force Recommendations. Performed By: #### 4 6932 #### [address] [place] [address] David Mcclain M.D. [id number] Urea nitrogen/Creatinine [Mass ratio] 25.9 mg/mg High 10.0-20.0 [facility] Comment on above: Order Comment: [facility] has implemented the eGFR calculation approach that does not have a coefficient for race that conforms to the NKF-ASN Task Force Recommendations. Performed By: #### 4 6932 #### [address] [place] [address] David Mcclain M.D. [id number] CBCon 12-05-2023 AUTO NRBC 0.0 % Normal [facility] Comment on above: Performed By: #### 4 6932 #### LAB [address] [place] [id number] David Mcclain M.D. [id number] AUTO NRBC ABS COUNT 0.00 K/mcL Normal 0.00-0.00 [facility] Comment on above: Performed By: #### 4 6957 #### LAB [address] [place] [address] David Mcclain M.D. [id number] Erythrocyte distribution width (RBC) [Ratio] 14.8 % Normal 11.6-14.8 [facility] Comment on above: Performed By: #### 4 6933 #### [address] [place] [address] David Mcclain M.D. [id number] Hematocrit (Bld) [Volume fraction] 34.8 % Low 36.0-46.0 [facility] Comment on above: Performed By: #### 4 6968 #### LAB [address] [place] [address] David Mcclain M.D. [id number] Hemoglobin (Bld) [Mass/Vol] 10.7 g/dL Low 12.0-16.0 [facility] Comment on above: Performed By: #### 4 6920 #### [facility] [address] [place] [address] David Mcclain M.D. [id number] MCH (RBC) [Entitic mass] 27.0 pg Normal 26.0-34.0 [facility] Comment on above: Performed By: #### 4 9561 #### LAB [address] [place] [address] David Mcclain M.D. [id number] MCV (RBC) [Entitic vol] 87.9 fL Normal 80.0-100.0 [facility] Comment on above: Performed By: #### 4 8578 #### LAB [address] [place] [address] David Mcclain M.D. [id number] MEAN CORPUSCULAR HEMOGLOBIN CONC 30.7 g/dL Low 31.0-37.0 [facility] Comment on above: Performed By: #### 4 1758 #### LAB [address] [place] [address] David Mcclain M.D. [id number] Platelet mean volume (Bld) [Entitic vol] 9.3 fL Low 9.4-12.4 [facility] Comment on above: Performed By: #### 4 3560 #### LAB [address] [place] [address] David Mcclain M.D. [id number] Platelets (Bld) [#/Vol] 312 10*3/uL Normal 150-400 [facility] Comment on above: Performed By: #### 4 3336 #### [facility] [address] [place], [place] [address] David Mcclain M.D. [id number] RBC (Bld) [#/Vol] 3.96 10*6/uL Low 4.00-5.20 [facility] Comment on above: Performed By: #### 4 6932 #### [facility] [address] [place], [place] [address] David Mcclain M.D. [id number] WBC (Bld) [#/Vol] 7.23 10*3/uL Normal 4.50-11.00 [facility] Comment on above: Performed By: #### 4 6932 #### LAB [address] [place], [place] [address] David Mcclain M.D. [id number] CONSULTon 12-05-2023 CONSULT Orthopedic consult Chief complaint [...] BY SACHIN MORALES, ON 12/05/2023 10:14:32 Normal [facility] [address] HEAD OR BRAIN WITHOUT CON TRASTon 12-05-2023 CT HEAD OR BRAIN WITHOUT CONTRAST EXAMINATION: CT HEAD OR BRAIN WITHOUT CONTRAST12/05/2023 7:16 am TECHNIQUE: Routine protocol multiplanar reformatted axial CT acquisition At least one of the following dose reduction techniques was utilized: Iterative reconstruction, and/or Automatic Exposure Control, and/or mA/kV adjustment based on body size. INDICATION: SAH [phone] Renu Santos, Director for residential provider *[phone] Stephanie Mata, corporate wellness coordinator at the home Injury/Trauma or Illness?:Illness/Other How long have you had these symptoms (acute/chronic)?:Acute Reason for exam?:sah f/u I62.9 Intracranial bleed (HCC) COMPARISON: 12/04/[address] FINDINGS: Stable focal anterior right temporal lobe subarachnoid/cortical hyperdensity. Moderate generalized cerebral cortical volume loss, and discordance crowding the subarachnoid spaces at the vertex relative to moderate 3rd and lateral ventricular enlargement by. [id number] frontoparietal predominant burn a confluent periventricular and [...] FriDec 05, 2023 12:13:06 PM EDT Normal [facility] Comment on above: Order Comment: Injur y/Trauma or Illness?:Illness/OtherHow long have you had these symptoms (acute/chronic)?:AcuteReason for exam?:sah f/uType of Exam?:Subsequent/Follow-upAdditional signs and symptoms?:n/a POC GLUCOSE - [facility] 024 Glucose [Mass/Vol] 167 mg/dL High 65-99 [facility] Glucose [Mass/Vol] 156 mg/dL High 65-99 [facility] Glucose [Mass/Vol] 160 mg/dL High 65-99 [facility] ALCOHOL, MEDICALon 4 ALCOHOL MEDICAL < Normal <10.0 [facility] Comment on above: Result Comment: Alco hol cutoff: <10.00 mg/dL = None Detected Performed By: #### 4 5033 #### LAB [address] [place] [address] David Mcclain M.D. [id number] Basic metabolic 2000 panelon 12-04-2023 Anion gap [Moles/Vol] 11 mmol/L 10 - 20 mmol/L [facility] Calcium [Mass/Vol] 9.7 mg/dL 8.6 - 10. 3 mg/dL [facility] Chloride [Moles/Vol] 103 mmol/L 98 - 10 7 mmol/L [facility] CO2 [Moles/Vol] 30 mmol/L 21 - 32 mmol/L [facility] Creatinine [Mass/Vol] 0.85 mg/dL 0.50 - 1.05 mg/dL [facility] GFR/1.73 sq M.predicted among non-blacks MDRD (S/P/Bld) [Vol rate/Area] 77 mL/min/{1.73_m2} - PINF [facility] Comment on above: Calculations of velasquez mated GFR are performed using the 2020 CKD-EPI Study Refit equation without the race variable for the IDMS-Traceable creatinine methods. https://jasn.asnjournals.org/content/early/ASN.0885402 988 Glucose [Mass/Vol] 145 mg/dL High 74 - 99 mg/dL [facility] Interpretation and review of laboratory results Abnormal [facility] Potassium [Moles/Vol] 4.2 mmol/L 3.5 - 5.3 mmol/L [facility] Sodium [Moles/Vol] 140 mmol/L 136 - 145 mmol/L [facility] Urea nitrogen [Mass/Vol] 29 mg/dL High 6 - 23 mg/dL [facility] Anion gap [Moles/Vol] 11 mmol/L Normal 10-20 [facility] Comment on above: Performed By: #### 2 4321-2 ####ALEKSANDR MEANS ([id number])[facility] ([facility])[address] [place] [address] Calcium [Mass/Vol] 9.7 mg/dL Normal 8.6-10.3 [facility] Comment on above: Performed By: #### 2 4321-2 ####ALEKSANDR MEANS ([id number])[facility] ([facility])[address] [place] [address] Chloride [Moles/Vol] 103 mmol/L Normal 98-107 [facility] Comment on above: Performed By: #### 2 4321-2 ####ALEKSANDR MEANS ([id number])[facility] ([facility])[address] [place] [address] 23358 CO2 [Moles/Vol] 30 mmol/L Normal 21-[address] [facility] Comment on above: Performed By: #### 2 4321-2 ####ALEKSANDR MEANS ([id number])[facility] ([facility])[address] [place] [address]03 Creatinine [Mass/Vol] 0.85 mg/dL Normal 0.50-1.05 [facility] Comment on above: Performed By: #### 2 4320-2 ####ALEKSANDR MEANS ([id number])[facility] ([facility])[address] [place] [address] 29049 Glomerular filtration rate/1.73 sq M.predicted 77 mL/min/1.73m*2 Normal >60 [facility] Comment on above: Result Comment: Calc ulations of estimated GFR are performed using the 2020 CKD-EPI Study Refit equation without the race variable for the IDMS-Traceable creatinine methods. https://jasn.asnjournals.org/content/early/ASN.2513631 988 Performed By: #### 2 4320-2 ####ALEKSANDR MEANS ([id number])[facility] ([facility])[address] [place] [address] Glucose [Mass/Vol] 145 mg/dL High 74-99 [facility] Comment on above: Performed By: #### 2 4320-2 ####ALEKSANDR MEANS ([id number])[facility] ([facility])[address] [place] [address] Potassium [Moles/Vol] 4.2 mmol/L Normal 3.5-5.3 [facility] Comment on above: Performed By: #### 2 4320-2 ####ALEKSANDR MEANS ([id number])[facility] ([facility])[address] [place] [address] Sodium [Moles/Vol] 140 mmol/L Normal 136-145 [facility] Comment on above: Performed By: #### 2 4321-2 ####ALEKSANDR MEANS ([id number])[facility] ([facility] [place] [address] Urea nitrogen [Mass/Vol] 29 mg/dL High 6-23 [facility] Comment on above: Performed By: #### 2 4321-2 ####BRANDON CLARY ([id number])[facility] ([facility])[address] [place] [address] CBC W Auto Differential pane l (Bld)on 12-04-2023 Basophils (Bld) [#/Vol] 0.03 10*3/uL [facility] Basophils/100 WBC (Bld) 0.3 % 0.0 - 2.0 % [facility] Eosinophils (Bld) [#/Vol] 0.26 10*3/uL [facility] Eosinophils/100 WBC (Bld) 2.5 % 0.0 - 6.0 % [facility] Erythrocyte distribution width (RBC) [Ratio] 14.6 % High 11.5 - 14.5 % [facility] Hematocrit (Bld) [Volume fraction] 40.2 % 36.0 - 46.0 % [facility] Hemoglobin (Bld) [Mass/Vol] 12.0 g/dL 12.0 - 16.0 g/dL [facility] Immature granulocytes (Bld) [#/Vol] 0.06 10*3/uL [facility] Immature granulocytes/100 WBC (Bld) 0.6 % 0.0 - 0.9 % [facility] Comment on above: Immature Granulocyte Count (IG) includes promyelocytes, myelocytes and metamyelocytes but does not include bands. Percent differential counts (%) should be interpreted in the context of the absolute cell counts (cells/UL). Interpretation and review of laboratory results Abnormal [facility] Lymphocytes (Bld) [#/Vol] 0.95 10*3/uL Low [facility] Lymphocytes/100 WBC (Bld) 9.2 % 13.0 - 44.0 % [facility] MCH (RBC) [Entitic mass] 27.3 pg 26.0 - 34.0 pg [facility] MCHC (RBC) [Mass/Vol] 29.9 g/dL Low 32.0 - 36.0 g/dL [facility] MCV (RBC) [Entitic vol] 91 fL 80 - 100 fL [facility] Monocytes (Bld) [#/Vol] 0.53 10*3/uL [facility] Monocytes/100 WBC (Bld) 5.1 % 2.0 - 10.0 % [facility] Neutrophils (Bld) [#/Vol] 8.51 10*3/uL High [facility] Comment on above: Percent differential counts (%) should be interpreted in the context of the absolute cell counts (cells/uL). Neutrophils/100 WBC (Bld) 82.3 % 40.0 - 80.0 % [facility] Nucleated RBC/100 WBC (Bld) [Ratio] 0.0 % [facility] Platelets (Bld) [#/Vol] 355 10*3/uL [facility] RBC (Bld) [#/Vol] 4.40 10*6/uL [facility] WBC (Bld) [#/Vol] 10.3 10*3/uL [facility] Basophils (Bld) [#/Vol] 0.03 x10*3/uL Normal 0.00-0.10 [facility] Comment on above: Performed By: #### 5 7021-8 #### ALEKSANDR MEANS ([id number]) [facility] ([facility]) [address] [place] [address] Basophils/100 WBC (Bld) 0.3 % Normal 0.0-2.0 [facility] Comment on above: Performed By: #### 5 7021-8 #### ALEKSANDR MEANS ([id number]) [facility] ([facility]) [address] [place] [address] Eosinophils (Bld) [#/Vol] 0.26 x10*3/uL Normal 0.00-0.70 [facility] Comment on above: Performed By: #### 5 7021-8 #### ALEKSANDR MEANS ([id number]) [facility] ([facility]) [address] [place] [address] 77070 Eosinophils/100 WBC (Bld) 2.5 % Normal 0.0-6.0 [facility] Comment on above: Performed By: #### 5 7021-8 #### ALEKSANDR MEANS ([id number]) [facility] ([facility]) [address] [place] [address]26 Erythrocyte distribution width (RBC) [Ratio] 14.6 % High 11.5-14.5 [facility] Comment on above: Performed By: #### 5 7021-8 #### ALEKSANDR MEANS ([id number]) [facility] ([facility]) [address] [place] [address]15 Hematocrit (Bld) [Volume fraction] 40.2 % Normal 36.0-46.0 [facility] Comment on above: Performed By: #### 5 7021-8 #### ALEKSANDR MEANS ([id number]) [facility] ([facility]) [address] [place] [address] 76657 Hemoglobin (Bld) [Mass/Vol] 12.0 g/dL Normal 12.0-16.0 [facility] Comment on above: Performed By: #### 5 7021-8 #### ALEKSANDR MEANS ([id number]) [facility] ([facility]) [address] [place] [address] 49164 Immature granulocytes (Bld) [#/Vol] 0.06 x10*3/uL Normal 0.00-0.70 [facility] Comment on above: Performed By: #### 5 7021-8 #### ALEKSANDR MEANS ([id number]) [facility] ([facility]) [address] [place] [address] Immature granulocytes/100 WBC (Bld) 0.6 % Normal 0.0-0.9 [facility] Comment on above: Result Comment: Reina ture Granulocyte Count (IG) includes promyelocytes, myelocytes and metamyelocytes but does not include bands. Percent differential counts (%) should be interpreted in the context of the absolute cell counts (cells/UL). Performed By: #### 5 7021-8 #### ALEKSANDR MEANS ([id number]) [facility] ([facility]) [address] [place] [address] Lymphocytes (Bld) [#/Vol] 0.95 x10*3/uL Low 1.20-4.80 [facility] Comment on above: Performed By: #### 5 7021-8 #### ALEKSANDR MEANS ([id number]) [facility] ([facility]) [address] [place], [place] [address] Lymphocytes/100 WBC (Bld) 9.2 % Normal 13.0-44.0 [facility] Comment on above: Performed By: #### 5 7021-8 #### ALEKSANDR MEANS ([id number]) [facility] ([facility]) [address] [place], [place] [address] MCH (RBC) [Entitic mass] 27.3 pg Normal 26.0-34.0 [facility] Comment on above: Performed By: #### 5 7021-8 #### ALEKSANDR MEANS ([id number]) [facility] ([facility]) [address] [place] [address] 71971 MCHC (RBC) [Mass/Vol] 29.9 g/dL Low 32.0-36.0 [facility] Comment on above: Performed By: #### 5 7021-8 #### ALEKSANDR MEANS ([id number]) [facility] ([facility]) [address] [place] [address] 91770 MCV (RBC) [Entitic vol] 91 fL Normal 80-100 [facility] Comment on above: Performed By: #### 5 7021-8 #### ALEKSANDR MEANS ([id number]) [facility] ([facility]) [address] [place] [address] 47240 Monocytes (Bld) [#/Vol] 0.53 x10*3/uL Normal 0.10-1.00 [facility] Comment on above: Performed By: #### 5 7021-8 #### ALEKSANDR MEANS ([id number]) [facility] ([facility]) [address] [place] [address] 73457 Monocytes/100 WBC (Bld) 5.1 % Normal 2.0-10.0 [facility] Comment on above: Performed By: #### 5 7021-8 #### ALEKSANDR MEANS ([id number]) [facility] ([facility]) [address] [place] [address] 13330 Neutrophils (Bld) [#/Vol] 8.51 x10*3/uL High 1.20-7.70 [facility] Comment on above: Result Comment: Perc ent differential counts (%) should be interpreted in the context of the absolute cell counts (cells/uL). Performed By: #### 5 7021-8 #### ALEKSANDR MEANS ([id number]) [facility] ([facility]) [address] [place] [address] 87944 Neutrophils/100 WBC (Bld) 82.3 % Normal 40.0-80.0 [facility] Comment on above: Performed By: #### 5 7021-8 #### ALEKSANDR MEANS ([id number]) [facility] ([facility]) [address] [place] [address] 71242 Nucleated RBC/100 WBC (Bld) [Ratio] 0.0 /100 WBCs Normal 0.0-0.0 [facility] Comment on above: Performed By: #### 5 7021-8 #### ALEKSANDR MEANS ([id number]) [facility] ([facility]) [address] [place] [address] Platelets (Bld) [#/Vol] 355 x10*3/uL Normal 150-450 [facility] Comment on above: Performed By: #### 5 7021-8 #### ALEKSANDR MEANS ([id number]) [facility] ([facility]) [address] [place] [address] 07369 RBC (Bld) [#/Vol] 4.40 x10*6/uL Normal 4.00-5.20 [facility] Comment on above: Performed By: #### 5 7021-8 #### BRANDON CLARY ([id number]) [facility] ([facility]) [address] [place] [address] WBC (Bld) [#/Vol] 10.3 x10*3/uL Normal 4.4-11.3 [facility] Comment on above: Performed By: #### 5 7021-8 #### ALEKSANDR MEANS ([id number]) [facility] ([facility]) [address] [place] [address] CONSULTon 12-04-2023 CONSULT Neurosurgery Consult Vel Benavidez MD Patient: Shaji Esquivel Date of : 1960 (63 y.o.) Referring Provider: Trauma service PCP: Antwan Maharaj MD SUBJECTIVE: Chief Complaint: Status post fall with small right anterior temporal subarachnoid hemorrhage/contusion History of Present Illness (HPI): Patient is a 63-year-old lady with history of schizophrenia, Parkinson's disease, significant intellectual impairment who lives at a care home under the guardianship of the [facility]. History was obtained from her caregiver Padminiamy [...] as well as place which is her care home. She is able to ambulate on her [...] surgeries. Social History: She lives in a care home for the last several years. No history [...] BY VEL BENAVIDEZ, ON 12/04/2023 17:21:56 Normal [facility] CT 3D RECONSTRUCTIONon 12-03 CT 3D RECONSTRUCTION Interpreted By: Shayna Robert, STUDY: CT FACIAL BONES WO IV CONTRAST; CT 3D RECONSTRUCTION 12/04/2023 9:56 am; 12/04/2023 10:08 am INDICATION: Signs/Symptoms:Fall with injury to her face; Signs/Symptoms:trauma COMPARISON: 10/07/2022 ACCESSION NUMBER(S): [id number]; [id number] ORDERING CLINICIAN: JASMYN WADE TECHNIQUE: Thin cut [...] Shayna Cole 12/04/2023 10:40 AM Dictation workstation: [id number] [facility] CT CERVICAL SPINE WO IV CONT [facility] 12-04-2023 CT CERVICAL SPINE WO IV CONTRAST Interpreted By: Shayna Cloe, STUDY: CT CERVICAL SPINE WO IV CONTRAST; 12/04/2023 9:56 am INDICATION: Signs/Symptoms:Fall with injury to neck. COMPARISON: 07/19/2023 ACCESSION NUMBER(S): [id number] ORDERING CLINICIAN: JASMYN WADE TECHNIQUE: CT images [...] Shayna Cole 12/04/2023 10:36 AM Dictation workstation: [id number] [facility] CT CHEST ABDOMEN PELVIS WITH OUT [...] FriDec 04, 2023 2:15:21 PM EDT Normal [facility] Comment on above: Order Comment: Injur [...] Shayna Cole 12/04/2023 10:36 AM Dictation workstation: [id number] MMODAL Interpreted By: Shayna Mantilla, STUDY: CT CERVICAL SPINE WO IV CONTRAST; 12/04/2023 9:56 am INDICATION: Signs/Symptoms:Fall with injury to neck. COMPARISON: 07/19/2023 ACCESSION NUMBER(S): [id number] ORDERING CLINICIAN: JASMYN WADE TECHNIQUE: CT images [...] injury to neck. COMPARISON: 07/19/2023 ACCESSION NUMBER(S): [id number] ORDERING CLINICIAN: JASMYN WADE TECHNIQUE: CT images [...] Shayna Cole 12/04/2023 10:36 AM Dictation workstation: [id number] [facility] Work Phone: [facility] Work Phone: CT FACIAL BONES WO IV CONTRA STon 12-04-2023 CT FACIAL BONES WO IV CONTRAST Interpreted By: Shayna Cole, STUDY: CT FACIAL BONES WO IV CONTRAST; CT 3D RECONSTRUCTION 12/04/2023 9:56 am; 12/04/2023 10:08 am INDICATION: Signs/Symptoms:Fall with injury to her face; Signs/Symptoms:trauma COMPARISON: 10/07/2022 ACCESSION NUMBER(S): [id number]; [id number] ORDERING CLINICIAN: JASMYN WADE TECHNIQUE: Thin cut [...] Shayna Cole 12/04/2023 10:40 AM Dictation workstation: [id number] [facility] CT HEAD WO IV CONTRASTon CT HEAD WO IV CONTRAST Interpreted By: Shayna Cole, STUDY: CT HEAD WO IV CONTRAST; 12/04/2023 9:56 am INDICATION: Signs/Symptoms:Fall with head injury. COMPARISON: 07/19/2023 ACCESSION NUMBER(S): [id number] ORDERING CLINICIAN: JASMYN WADE TECHNIQUE: Unenhanced CT [...] Shayna Cole 12/04/2023 10:30 AM Dictation workstation: [id number] [facility] CT Head WO contraston 2023 6 [...] Shayna Cole 12/04/2023 10:30 AM Dictation workstation: [id number] MMODAL Interpreted By: Shayna Mantilla, STUDY: CT HEAD WO IV CONTRAST; 12/04/2023 9:56 am INDICATION: Signs/Symptoms:Fall with head injury. COMPARISON: 07/19/2023 ACCESSION NUMBER(S): [id number] ORDERING CLINICIAN: JASMYN WADE TECHNIQUE: Unenhanced CT [...] with head injury. COMPARISON: 07/19/2023 ACCESSION NUMBER(S): [id number] ORDERING CLINICIAN: JASMYN WADE TECHNIQUE: Unenhanced CT [...] Shayna Cole 12/04/2023 10:30 AM Dictation workstation: [id number] [facility] Work Phone: [facility] Work Phone: CT Unspecified body region 3 D post processingon 12-04-2023 Radiology Study observation (narrative) [facility] Work Phone: CT WRIST RIGHT WITHOUT [...] FriDec 04, 2023 8:07:23 PM EDT Normal [facility] Comment on above: Order Comment: Injur y/Trauma or Illness?:Injury/TraumaHow long have you had these symptoms (acute/chronic)?:AcuteReason for exam?:right wrist pain with injury s/p fall. ulnocarpal dislocation noted on wrist x-rayType of Exam?:InitialMechanism of injury?:fall Coagulation surface inducedo n 12-04-2023 aPTT Coag (PPP) [Time] 28 s Normal 27-38 [facility] Comment on above: Order Comment: The A PTT is no longer used for monitoring Unfractionated Heparin Therapy. For monitoring Heparin Therapy, use the Heparin Assay. Performed By: #### 1 4979-9 ####BRANDON CLARY ([id number])[facility] ([facility])[address] [place] [address] Coagulation tissue factor in ducedon 12-04-2023 PT Coag (PPP) [Time] 10.6 s Normal 9.8-12.8 [facility] Comment on above: Performed By: #### 5 902-2 #### ALEKSANDR MEANS ([id number]) [facility] ([facility]) [address] [place] [address] ED Prov Noteon 12-04-2023 ED Prov Note [facility] EMERGENCY DEPARTMENT - Emergency Medicine Attending Note: NAME: Shaji Esquivel 63 y.o. CSN: [id number] PCP: Antwan Maharaj MD History: Chief Complaint: [...] emergency d (more content not included)... Normal [facility] H AND Samuel 12-04-2023 H AND [...] reviewed the PATTY note, labs, studies, and decorating consultant notes. I have reviewed and agree [...] denies spinal TTP. Imaging obtained at the [facility] with the above findings. On physical [...] Surgery, Surgical Critical Care, and Neurocritical Care [facility] SURGICAL HISTORY & PHYSICAL/CONSULTATION [...] Used Sub (more content not included)... Normal [facility] No Panel Informationon 12-03 Interpretation and review of laboratory results Normal [facility] Dorsal dislocation a t the ulnocarpal joint versus projection. No fracture identified. MACRO: None. Signed by: Shayna Cole 12/04/2023 10:45 AM Dictation workstation: [id number] MMODAL Interpreted By: Shayna Mantilla, STUDY: XR FOREARM RIGHT 2 VIEWS; XR WRIST RIGHT 3+ VIEWS; 12/04/2023 9:40 am INDICATION: Signs/Symptoms:Fall with injury. COMPARISON: Forearm films 08/10/2021 ACCESSION NUMBER(S): [id number]; [id number] ORDERING CLINICIAN: JASMYN WADE FINDINGS: 2 portable [...] injury. COMPARISON: Forearm films 08/10/2021 ACCESSION NUMBER(S): [id number]; [id number] ORDERING CLINICIAN: JASMYN WADE FINDINGS: 2 portable [...] Shayna Cole 12/04/2023 10:45 AM Dictation workstation: [id number] [facility] Work Phone: Hematoma in the righ t frontal scalp/supraorbital region. No acute displaced facial bone fracture visualized. Mild right maxillary and bilateral sphenoid sinus mucosal thickening/debris. MACRO: None. Signed by: Shayna Cole 12/04/2023 10:40 AM Dictation workstation: [id number] MMODAL Interpreted By: Shayna Mantilla, STUDY: CT FACIAL BONES WO IV CONTRAST; CT 3D RECONSTRUCTION 12/04/2023 9:56 am; 12/04/2023 10:08 am INDICATION: Signs/Symptoms:Fall with injury to her face; Signs/Symptoms:trauma COMPARISON: 10/07/2022 ACCESSION NUMBER(S): [id number]; [id number] ORDERING CLINICIAN: JASMYN WADE TECHNIQUE: Thin cut [...] her face; Signs/Symptoms:trauma COMPARISON: 10/07/2022 ACCESSION NUMBER(S): [id number]; [id number] ORDERING CLINICIAN: JASMYN WADE TECHNIQUE: Thin cut [...] Shayna Cole 12/04/2023 10:40 AM Dictation workstation: [id number] [facility] Work Phone: [facility] Work Phone: Radiology Study observation (narrative) [facility] Work Phone: Radiology Study observation (narrative) [facility] Work Phone: No Panel InformationOrdered By: Shayna Cole on 12-04-2023 [facility] Work Phone: POC GLUCOSE - [facility] 024 Glucose [Mass/Vol] 135 mg/dL High 65-99 [facility] Glucose [Mass/Vol] 94 mg/dL Normal 65-99 [facility] PT Coag (PPP) [Time]on 12-03 INR Coag (PPP) [Relative time] 0.9 {INR} 0.9 - 1.1 [facility] INR Coag (PPP) [Relative time] 0.9 Normal 0.9-1.1 [facility] Comment on above: Performed By: #### 5 902-2 #### BRANDON CLARY ([id number]) [facility] ([facility]) [address] [place] [address] Protime-INRon 12-04-2023 PT Coag (PPP) [Time] 10.6 s [facility] XR FOREARM RIGHT 2 VIEWSon 0 12-04-2023 XR FOREARM RIGHT 2 VIEWS Interpreted By: Shayna Cole, STUDY: XR FOREARM RIGHT 2 VIEWS; XR WRIST RIGHT 3+ VIEWS; 12/04/2023 9:40 am INDICATION: Signs/Symptoms:Fall with injury. COMPARISON: Forearm films 08/10/2021 ACCESSION NUMBER(S): [id number]; [id number] ORDERING CLINICIAN: JASMYN WADE FINDINGS: 2 portable [...] Shayna Cole 12/04/2023 10:45 AM Dictation workstation: [id number] [facility] XR KNEE RIGHT 2 VIEWS (STAND [...] 2:24:52 PM EDT [facility] Comment on above: Order Comment: Injur [...] 4:26:36 PM EDT [facility] Comment on above: Order Comment: Injur [...] injury. COMPARISON: Forearm films 08/10/2021 ACCESSION NUMBER(S): [id number]; [id number] ORDERING CLINICIAN: JASMYN WADE FINDINGS: 2 portable [...] Shayna Cole 12/04/2023 10:45 AM Dictation workstation: [id number] Normal [facility] aPTTon 12-04-2023 aPTT Coag (PPP) [Time] 28 s [facility] aPTT Coag (PPP) [Time]on The APTT is no longe r used for monitoring Unfractionated Heparin Therapy. For monitoring Heparin Therapy, use the Heparin Assay. [facility] Comprehensive metabolic 2000 panelon 10-15-2023 Albumin BCP dye [Mass/Vol] 4.2 g/dL Normal 3.4-5.0 [facility] Comment on above: Performed By: #### 2 4323-8 #### ALEKSANDR MEANS ([id number]) [facility] ([facility]) [address] [place] [address] ALP [Catalytic activity/Vol] 73 U/L Normal 33-136 [facility] Comment on above: Performed By: #### 2 4323-8 #### ALEKSANDR MEANS ([id number]) [facility] ([facility]) [address] [place] [address] ALT With P-5'-P [Catalytic activity/Vol] 12 U/L Normal 7-45 [facility] Comment on above: Result Comment: Haylee ents treated with Sulfasalazine may generate falsely decreased results for ALT. Performed By: #### 2 4323-8 #### ALEKSANDR MEANS ([id number]) [facility] ([facility]) [address] [place] [address]97 Anion gap [Moles/Vol] 11 mmol/L Normal 10-20 [facility] Comment on above: Performed By: #### 2 4323-8 #### ALEKSANDR MEANS ([id number]) [facility] ([facility]) [address] [place] [address] 29[address] AST With P-5'-P [Catalytic activity/Vol] 14 U/L Normal 9-39 [facility] Comment on above: Performed By: #### 2 4323-8 #### ALEKSANDR MEANS ([id number]) [facility] ([facility]) [address] [place] [address] Bilirubin [Mass/Vol] 0.4 mg/dL Normal 0.0-1.2 [facility] Comment on above: Performed By: #### 2 4323-8 #### ALEKSANDR MEANS ([id number]) [facility] ([facility]) [address] [place] [address] Calcium [Mass/Vol] 9.2 mg/dL Normal 8.6-10.3 [facility] Comment on above: Performed By: #### 2 4323-8 #### ALEKSANDR MEANS ([id number]) [facility] ([facility]) [address] [place] [id number] Chloride [Moles/Vol] 103 mmol/L Normal 98-107 [facility] Comment on above: Performed By: #### 2 4323-8 #### ALEKSANDR MEANS ([id number]) [facility] ([facility]) [address] [place] [address] CO2 [Moles/Vol] 30 mmol/L Normal 21-32 [facility] Comment on above: Performed By: #### 2 4323-8 #### ALEKSANDR MEANS ([id number]) [facility] ([facility]) [address] [place] [address] 63452 Creatinine [Mass/Vol] 0.86 mg/dL Normal 0.50-1.05 [facility] Comment on above: Performed By: #### 2 4323-8 #### ALEKSANDR MEANS ([id number]) [facility] ([facility]) [address] [place] [address] 07857 Glomerular filtration rate/1.73 sq M.predicted 76 mL/min/1.73m*2 Normal >60 [facility] Comment on above: Result Comment: Calc ulations of estimated GFR are performed using the 2020 CKD-EPI Study Refit equation without the race variable for the IDMS-Traceable creatinine methods. https://jasn.asnjournals.org/content/early/ASN.4563625 988 Performed By: #### 2 4323-8 #### ALEKSANDR MEANS ([id number]) [facility] ([facility]) [address] [place] [address] 20910 Glucose [Mass/Vol] 149 mg/dL High 74-99 [facility] Comment on above: Performed By: #### 2 4323-8 #### ALEKSANDR MEANS ([id number]) [facility] ([facility]) [address] [place] [address] 86497 Potassium [Moles/Vol] 4.2 mmol/L Normal 3.5-5.3 [facility] Comment on above: Performed By: #### 2 4323-8 #### ALEKSANDR MEANS ([id number]) [facility] ([facility]) [address] [place] [address] 14352 Protein [Mass/Vol] 7.3 g/dL Normal 6.4-8.2 [facility] Comment on above: Performed By: #### 2 4323-8 #### ALEKSANDR MEANS ([id number]) [facility] ([facility]) [address] [place] [address] 05893 Sodium [Moles/Vol] 140 mmol/L Normal 136-145 [facility] Comment on above: Performed By: #### 2 4323-8 #### ALEKSANDR MEANS ([id number]) [facility] ([facility]) [address] [place] [address] 38251 Urea nitrogen [Mass/Vol] 23 mg/dL Normal 6-23 [facility] Comment on above: Performed By: #### 2 4323-8 #### ALEKSANDR MEANS ([id number]) [facility] ([facility]) [address] [place] [address] 51620 HbA1c (Bld) [Mass fraction]o n 10-15-2023 Average glucose Estimated from glycated hemoglobin (Bld) [Mass/Vol] 180 mg/dL Normal Not Established [facility] Comment on above: Order Comment: Diagn osis of Diabetes-Adults Non-Diabetic: < or = 5.6% Increased risk for developing diabetes: 5.7-6.4% Diagnostic of diabetes: > or = 6.5% Monitoring of Diabetes Age (y)....................... Therapeutic Goal (%) Adults: >18.........................<7.0 Pediatrics: 13-18...................<7.5 Pediatrics: 7-12....................<8.0 Pediatrics: 0-6..................... 7.5-8.5 [place] [employer]. Diabetes Care 33(S1)Jun 2009 Performed By: #### 4 548-4 #### BRANDON CLARY ([id number]) [facility] ([facility]) [address] [id number] Hemoglobin A1c/Hemoglobin.to sharla 10-15-2023 HbA1c (Bld) [Mass fraction] 7.9 % High see below [facility] Comment on above: Order Comment: Diagn osis of Diabetes-Adults Non-Diabetic: < or = 5.6% Increased risk for developing diabetes: 5.7-6.4% Diagnostic of diabetes: > or = 6.5% Monitoring of Diabetes Age (y)....................... Therapeutic Goal (%) Adults: >18.........................<7.0 Pediatrics: 13-18...................<7.5 Pediatrics: 7-12....................<8.0 Pediatrics: 0-6..................... 7.5-8.5 [place] [employer]. Diabetes Care 33(S1), Jun 2009 Performed By: #### 4 548-4 #### ALEKSANDR MEANS ([id number]) [facility] ([facility]) [facility] [place] [address] Lipid 1996 panelon 4 Cholesterol [Mass/Vol] 133 mg/dL Normal 0-199 [facility] Comment on above: Result Comment: Age Desirable [...] By: #### 2 4331-1 #### ALEKSANDR MEANS ([id number]) [facility] ([facility]) [address] [place] [address] 69978 Cholesterol in HDL [Mass/Vol] 49.0 mg/dL Normal [facility] Comment on above: Result Comment: Age Very Low Low Normal High 0-19 Y < 35 < 40 40-45 ---- 20-24 Y ---- < 40 >45 ---- >24 Y ---- < 40 40-60 >60 Performed By: #### 2 4331-1 #### ALEKSANDR MEANS ([id number]) [facility] ([facility]) [facility] [place] [address] Cholesterol in LDL [Mass/Vol] 48 mg/dL Normal <=99 [facility] Comment on above: Result Comment: Near Borderline AGE Desirable Optimal High High Very High 0-19 Y 0 - 109 --- 110-129 >/= 130 ---- 20-24 Y 0 - 119 --- 120-159 >/= 160 ---- >24 Y 0 - 99 100-129 130-159 160-189 >/=190 Performed By: #### 2 4331-1 #### ALEKSANDR MEANS ([id number]) [facility] ([facility]) [facility] [place] [address] Cholesterol in VLDL [Mass/Vol] 36 mg/dL Normal 0-40 [facility] Comment on above: Performed By: #### 2 4331-1 #### ALEKSANDR MEANS ([id number]) [facility] ([facility]) [address] [place] [address] 49598 CHOLESTEROL/HDL RATIO 2.7 Normal [facility] Comment on above: Result Comment: Ref Values Desirable < 3.4 High Risk > 5.0 Performed By: #### 2 4331-1 #### ALEKSANDR MEANS ([id number]) [facility] ([facility]) [address] [place] [address] 63923 NON HDL CHOLESTEROL 84 mg/dL Normal 0-149 [facility] Comment on above: Result Comment: Age Desirable Borderline High High Very High 0-19 Y 0 - 119 120 - 144 >/= 145 >/= 160 20-24 Y 0 - 149 150 - 189 >/= 190 ---- >24 Y 30 mg/dL above LDL Cholesterol goal Performed By: #### 2 4331-1 #### ALEKSANDR MEANS ([id number]) [facility] ([facility]) [address] [place] [address] 67398 Triglyceride [Mass/Vol] 179 mg/dL High 0-149 [facility] Comment on above: Result Comment: Age Desirable [...] By: #### 2 4331-1 #### ALEKSANDR MEANS ([id number]) [facility] ([facility]) [address] [place] [address] 63111 M. tuberculosis stim IFN-g a nd spot count panel (Bld)on 10-15-2023 Gamma interferon negative control spot count (Bld) [#] Passed Normal [facility] Comment on above: Performed By: #### 7 4281-7 #### QUEST CHANTL ([id number]) [address] [facility] [address] [place] M. tuberculosis stim IFN-g CFP10 Ag spot count (Bld) [#] 0 Normal [facility] Comment on above: Performed By: #### 7 4281-7 #### QUEST CHANTL ([id number]) [address] [facility] [address] [address] [facility] [place] M. tuberculosis stim IFN-g ESAT-6 Ag spot count (Bld) [#] 0 Normal [facility] Comment on above: Performed By: #### 7 4281-7 #### QUEST CHANTL ([id number]) [address] [facility] [address] [place] M. tuberculosis stim IFN-g Ql (Bld) [Interp] Negative Normal Negative [facility] Comment on above: Result Comment: A negative [...] By: #### 7 4281-7 #### QUEST CHANTL ([id number]) [address] [facility] [address] [place] Mitogen stimulated gamma interferon positive control spot count (Bld) [#] Passed Normal [facility] Comment on above: Result Comment: For additional information, please refer to http://education.[employer]/faq/ZFC518 (This link is being provided for informational/ educational purposes only.) Performed By: #### 7 4281-7 #### QUEST CARLOS ([id number]) [address] [facility] [address] [address] [place], [place] TSH WITH REFLEX TO FREE T4 I F ABNORMALon 10-15-2023 TSH Qn 2.83 m[IU]/L Normal 0.44-3.98 [facility] Comment on above: Order Comment: TSH t esting is performed using different testing methodology at [facility] than at other [facility]. Direct result comparisons should only be made within the same method. Performed By: #### T URIEL #### BRANDON CLARY ([id number]) [facility] ([facility]) [address] [place] [address] CT CERVICAL SPINE WO IV CONT [facility] 07-19-2023 CT CERVICAL SPINE WO IV CONTRAST Interpreted By: Serena Mcghee, STUDY: CT HEAD WO IV CONTRAST; CT CERVICAL SPINE WO IV CONTRAST; 07/19/2023 8:43 pm INDICATION: Signs/Symptoms:Fall. COMPARISON: CT head dated 11/06/2022; CT of the cervical spine dated 11/06/2022. ACCESSION NUMBER(S): [id number]; [id number] ORDERING CLINICIAN: OSIEL VERGARA TECHNIQUE: Noncontrast axial [...] Serena Mcghee 07/19/2023 9:01 PM Dictation workstation: [id number] [facility] CT HEAD WO IV CONTRASTon CT HEAD WO IV CONTRAST Interpreted By: Serena Mcghee, STUDY: CT HEAD WO IV CONTRAST; CT CERVICAL SPINE WO IV CONTRAST; 07/19/2023 8:43 pm INDICATION: Signs/Symptoms:Fall. COMPARISON: CT head dated 11/06/2022; CT of the cervical spine dated 11/06/2022. ACCESSION NUMBER(S): [id number]; [id number] ORDERING CLINICIAN: OSIEL VERGARA TECHNIQUE: Noncontrast axial [...] Serena Mcghee 07/19/2023 9:01 PM Dictation workstation: [id number] [facility] MG Breast - bilateral Screen ingon 07-11-2023 No mammographic evidence of malignancy. BI-RADS CATEGORY: BI-RADS Category: 1 Negative. Recommendation: Routine Screening Mammogram in 1 Year. Recommended Date: 1 Year. Laterality: Bilateral. Signed by: Bala Zheng 07/11/2023 8:26 AM Dictation workstation: [id number] Interpreted By: Bala Zheng, STUDY: ; 07/10/2023 10:08 am ACCESSION NUMBER(S): [id number] ORDERING CLINICIAN: RAFA JACINTO INDICATION: Screening. COMPARISON: [...] STUDY: ; 07/10/2023 10:08 am ACCESSION NUMBER(S): [id number] ORDERING CLINICIAN: RAFA JACINTO INDICATION: Screening. COMPARISON: [...] Bala Zheng 07/11/2023 8:26 AM Dictation workstation: [id number] [facility] Work Phone: MG Breast - bilateral Screen ingOrdered By: Bala Zheng on 07-11-2023 [facility] Work Phone: MG Breast - bilateral Screen ingon 07-10-2023 Radiology Study observation (narrative) [facility] Work Phone: PT Progress Noteon 3 [...] code time is 23 minutes. Therapeutic exercise (45004): timed minutes 23, units 2 . Recheck, [...] code time is 23 minutes. Therapeutic exercise (41158): timed minutes 23, units 2 . Recheck, [...] Feb 04 2023 9:58AM EST (Author) Normal [facility] Progress Noteon 3 PT Progress Note [...] code time is 38 minutes. Therapeutic exercise (14099): timed minutes 38, units 3 . Step [...] Jan 29 2023 10:00AM EST (Author) Normal [facility] Progress Noteon 3 PT Progress Note [...] code time is 38 minutes. Therapeutic exercise (52067): timed minutes 38, units 3 . SEE [...] cone taps fwd x8 ea. Neuromuscular Re-education (10703):. Hand taps all directions x2' ea LE [...] Jan 21 2023 9:39AM EST (Author) Normal [facility] Progress Noteon 3 PT Progress Note [...] outside // bars to further challenge balance. HAND EDGER with side steps in order to keep [...] code time is 38 minutes. Therapeutic exercise (39698): timed minutes 38, units 3 . SEE [...] taps fwd x8 ea (N). Neuromuscular Re-education (00777):. Hand taps all directions x2' ea LE [...] Jan 14 2023 2:47PM EST (Author) Normal [facility] Progress Noteon 3 PT Progress Note [...] code time is 38 minutes. Therapeutic exercise (57594): timed minutes 30, units 2 . SEE [...] with ball x10 ea L. Neuromuscular Re-education (92964): timed minutes 8, units 1 . Hand taps all directions x2' e (more content not included)... Normal [facility] Therapy Re-eval Noteon 12-31 Therapy Re-eval Note [...] code time is 38 minutes. Therapeutic exercise (65494): timed minutes 30, units 2 . SEE [...] with ball x10 ea L. Neuromuscular Re-education (27810): timed minutes 8, units 1 (more content [...] code time is 30 minutes. Therapeutic exercise (03740): timed minutes 30, units 2 . [employer] [...] code time is 38 minutes. Therapeutic exercise (61916): timed minutes 38, units 3 . [employer] [...] Dec 19 2022 10:47AM EST (Author) Normal [employer] PT Progress Noteon 3 PT Progress Note [...] code time is 38 minutes. Therapeutic exercise (70854): timed minutes 38, units 3 . [employer] [...] Dec 03 2022 4:12PM EST (Author) Normal [facility] Initial Evaluationon 11-07 PT Initial Evaluation [...] when considering positive factors including support in care home with barriers such as understanding of exercises. The pt verbalized understanding and agreement to goals and POC. Thank you for this referral and please call [phone] with any questions or concerns. Clinical Presentation: [...] 1 Insurance: Evaluating therapist: Bibi Villela PT, ALYIA PT dx: Z74.09, R26.89 Beginnin2022 Endin2022 Subjective [...] SHe uses w/c when out of the care home. Pt denies pain in LEs. Nurse, Anne, [...] and prognosis. Living Environment: walk-in shower . nursing home- no steps Uses shower chair. Personal Factors [...] contact via or Sue Simons PharmD PGY-1 [employer] [phone] Electronic Signatures: Sue Simons ([facility]) (Signed 11-Nov-2022 15:41) Authored: Clinical Event Note Ann Cardoza (PharmD) (Signed 12-Nov-2022 08:03) Co-Signer: Clinical Event Note Last Updated: 12-Nov-2022 08:03 by Ann Cardoza (PharmD) Normal [facility] CBC AND DIFFERENTIALon 11-06 % AUTOMATED IMMATURE GRAN 0.4 % Normal 0.0 - 0.9 [facility] Comment on above: Result Comment: Reina ture Granulocyte Count (IG) includes promyelocytes, myelocytes and metamyelocytes but does not include bands. Percent differential counts (%) should be interpreted in the context of the absolute cell counts (cells/L). Performed By: #### C BCDF #### [address] [address] Basophils (Bld) [#/Vol] 0.01 10*3/uL Normal 0.00 - 0.10 [facility] Comment on above: Performed By: #### C BCDF #### [address] [address] Basophils/100 WBC (Bld) 0.1 % Normal 0.0 - 2.0 [facility] Comment on above: Performed By: #### C BCDF #### [address] [address] Eosinophils (Bld) [#/Vol] 0.15 10*3/uL Normal 0.00 - 0.70 [facility] Comment on above: Performed By: #### C BCDF #### [address] [address] Eosinophils/100 WBC (Bld) 1.8 % Normal 0.0 - 6.0 [facility] Comment on above: Performed By: #### C BCDF #### [address] [address] Erythrocyte distribution width (RBC) [Ratio] 13.2 % Normal 11.5 - 14.5 [facility] Comment on above: Performed By: #### C BCDF #### [address] [address] Hematocrit (Bld) [Volume fraction] 39.3 % Normal 36.0 - 46.0 [facility] Comment on above: Performed By: #### C BCDF #### [address] [address] Hemoglobin (Bld) [Mass/Vol] 11.7 g/dL Low 12.0 - 16.0 [facility] Comment on above: Performed By: #### C BCDF #### [address] [address] Lymphocytes (Bld) [#/Vol] 0.30 10*3/uL Low 1.20 - 4.80 [facility] Comment on above: Performed By: #### C BCDF #### [address] [address] Lymphocytes/100 WBC (Bld) 3.6 % Normal 13.0 - 44.0 [facility] Comment on above: Performed By: #### C BCDF #### [address] [address] MCHC (RBC) [Mass/Vol] 29.8 g/dL Low 32.0 - 36.0 [facility] Comment on above: Performed By: #### C BCDF #### [address] [address] MCV (RBC) [Entitic vol] 94 fL Normal 80 - 100 [facility] Comment on above: Performed By: #### C BCDF #### [address] [address] Monocytes (Bld) [#/Vol] 0.19 10*3/uL Normal 0.10 - 1.00 [facility] Comment on above: Performed By: #### C BCDF #### [address] [address] Monocytes/100 WBC (Bld) 2.3 % Normal 2.0 - 10.0 [facility] Comment on above: Performed By: #### C BCDF #### [address] [address] Neutrophils (Bld) [#/Vol] 7.70 10*3/uL Normal 1.20 - 7.70 [facility] Comment on above: Result Comment: Perc ent differential counts (%) should be interpreted in the context of the absolute cell counts (cells/L). Performed By: #### C BCDF #### [address] [address] Neutrophils/100 WBC (Bld) 91.8 % Normal 40.0 - 80.0 [facility] Comment on above: Performed By: #### C BCDF #### [address] [address] Platelets (Bld) [#/Vol] 286 10*3/uL Normal 150 - 450 [facility] Comment on above: Performed By: #### C BCDF #### [address] [address] RBC 4.19 x10E12/L Normal 4.00 - 5.20 [facility] Comment on above: Performed By: #### C BCDF #### [address] [address] WBC (Bld) [#/Vol] 8.4 10*3/uL Normal 4.4 - 11.3 [facility] Comment on above: Performed By: #### C BCDF #### [address] [address] CHEST 1 VIEWon 11-06-2022 CHEST 1 VIEW Patient Name: SHAJI ESQUIVEL STUDY: CHEST 1 VIEW; 11/06/2022 9:49 am INDICATION: chest pain . COMPARISON: 05/25/2022 ACCESSION NUMBER(S): [id number] ORDERING CLINICIAN: ERICKSON HERNANDEZ FINDINGS: Artifact is present on the films. The heart is not enlarged. No infiltrate, pleural effusion or pneumothorax is seen. IMPRESSION: No active cardiopulmonary disease. Electronically signed by: MARYSOL PEÑA MD Normal [facility] COMPREHENSIVE PANELon 2022 Albumin [Mass/Vol] 4.3 g/dL Normal 3.4 - 5.0 [facility] Comment on above: Performed By: #### C MP #### [address] [address] ALP [Catalytic activity/Vol] 66 U/L Normal 33 - 136 [facility] Comment on above: Performed By: #### C MP #### [address] [address] ALT [Catalytic activity/Vol] 6 U/L Low 7 - 45 [facility] Comment on above: Result Comment: Haylee ents treated with Sulfasalazine may generate falsely decreased results for ALT. Performed By: #### C MP #### [address] [address] Anion gap [Moles/Vol] 13 mmol/L Normal 10 - 20 [facility] Comment on above: Performed By: #### C MP #### [place] [id number] AST [Catalytic activity/Vol] 18 U/L Normal 9 - 39 [facility] Comment on above: Performed By: #### C MP #### [address] [address] Bilirubin [Mass/Vol] 0.4 mg/dL Normal 0.0 - 1.2 [facility] Comment on above: Performed By: #### C MP #### [address] [address] Calcium [Mass/Vol] 9.6 mg/dL Normal 8.6 - 10.3 [facility] Comment on above: Performed By: #### C MP #### [address] [address] Chloride [Moles/Vol] 102 mmol/L Normal 98 - 107 [facility] Comment on above: Performed By: #### C MP #### [address] [address] Creatinine [Mass/Vol] 0.88 mg/dL Normal 0.50 - 1.05 [facility] Comment on above: Performed By: #### C MP #### [address] [address] GFR/1.73 sq M.predicted among non-blacks MDRD (S/P/Bld) [Vol rate/Area] 74 mL/min/{1.73_m2} Normal >90 [facility] Comment on above: Result Comment: CALC ULATIONS OF ESTIMATED GFR ARE PERFORMED USING THE 2020 CKD-EPI STUDY REFIT EQUATION WITHOUT THE RACE VARIABLE FOR THE IDMS-TRACEABLE CREATININE METHODS. https://jasn.asnjournals.org/content/early/ASN.7721907 988 Performed By: #### C MP #### [address] [address] Glucose [Mass/Vol] 160 mg/dL High 74 - 99 [facility] Comment on above: Performed By: #### C MP #### [address] [address] HCO3 (Bld) [Moles/Vol] 28 mmol/L Normal 21 - 32 [facility] Comment on above: Performed By: #### C MP #### [address] [address] Potassium [Moles/Vol] 4.1 mmol/L Normal 3.5 - 5.3 [facility] Comment on above: Performed By: #### C MP #### [address] [address] Protein [Mass/Vol] 7.6 g/dL Normal 6.4 - 8.2 [facility] Comment on above: Performed By: #### C MP #### [address] [address] Sodium [Moles/Vol] 139 mmol/L Normal 136 - 145 [facility] Comment on above: Performed By: #### C MP #### [address] [address] Urea nitrogen [Mass/Vol] 31 mg/dL High 6 - 23 [facility] Comment on above: Performed By: #### C MP #### [address] [address] [address] HEAD WO CONTRASTon 2022 CT HEAD WO CONTRAST Patient Name: SHAJI ESQUIVEL STUDY: CT HEAD WO CONTRAST; 11/06/2022 11:23 am INDICATION: weakness . COMPARISON: 10/07/2022 ACCESSION NUMBER(S): [id number] ORDERING CLINICIAN: ERICKSON HERNANDEZ TECHNIQUE: Noncontrast axial [...] Electronically signed by: KATIE HIDALGO MD Normal [facility] CT Head without Contraston 0 11-06-2022 CT Head limited WO contrast Normal [facility] Work Phone: CT Neck with Contraston - CT Neck W contrast IV Normal [facility] Work Phone: Complete Blood Count + Diffe rentialon 11-06-2022 Basophils/100 WBC (Bld) 0.1 % 0.0 - 2.0 [facility] Work Phone: Erythrocyte distribution width (RBC) [Ratio] 13.2 % See Below [facility] Work Phone: Comment on above: Reference Range: 11. 5 - 14.5 Hematocrit (Bld) [Volume fraction] 39.3 % See Below [facility] Work Phone: Comment on above: Reference Range: 36. 0 - 46.0 Hemoglobin (Bld) [Mass/Vol] 11.7 g/dL below low threshold See Below [facility] [place] Work Phone: [phone] Comment on above: Reference Range: 12. 0 - 16.0 Lymphocytes/100 WBC (Bld) 3.6 % See Below [facility] brendan Moran Work Phone: [phone] Comment on above: Reference Range: 13. 0 - 44.0 MCHC (RBC) [Mass/Vol] 29.8 g/dL below low threshold See Below [facility] [place] Work Phone: [phone] Comment on above: Reference Range: 32. 0 - 36.0 MCV (RBC) [Entitic vol] 94 fL 80 - 100 [facility] [place] Work Phone: [phone] Monocytes/100 WBC (Bld) 2.3 % 2.0 - 10.0 [facility] card[facility] Work Phone: [phone] Neutrophils/100 WBC (Bld) 91.8 % See Below [facility] Work Phone: [phone] Comment on above: Reference Range: 40. 0 - 80.0 Platelets (Bld) [#/Vol] 286 10*3/uL 150 - 450 [facility] [place] Work Phone: [phone] RBC (Bld) [#/Vol] 4.19 {x10E12/L} See Below [facility] Work Phone: [phone] Comment on above: Reference Range: 4.0 0 - 5.20 WBC (Bld) [#/Vol] 8.4 10*3/uL 4.4 - 11.3 [facility] [place] Work Phone: Complete Blood Count [...] activity/Vol] 66 U/L 33 - 136 [facility] brendan Moran Work Phone: ALT With P-5'-P [Catalytic activity/Vol] 6 U/L below low threshold 7 - 45 [facility] brendan Moran Work Phone: Comment on above: Patients treated wit h Sulfasalazine may generate falsely decreased results for ALT. Anion gap [Moles/Vol] 13 mmol/L 10 - 20 [facility] brendan Moran Work Phone: AST With P-5'-P [Catalytic activity/Vol] 18 U/L 9 - 39 [facility] b[facility] Moran Work Phone: Bilirubin [Mass/Vol] 0.4 mg/dL 0.0 - 1.2 [facility] brendan Moran Work Phone: Calcium [Mass/Vol] 9.6 mg/dL 8.6 - 10.3 [facility] Work Phone: Chloride [Moles/Vol] 102 mmol/L 98 - 107 [facility] brendan Moran Work Phone: CO2 [Moles/Vol] 28 mmol/L 21 - 32 [facility] Work Phone: Creatinine [Mass/Vol] 0.88 mg/dL See Below [facility] Work Phone: Comment on above: Reference Range: 0.5 0 - 1.05 Glucose [Mass/Vol] 160 mg/dL above high threshold 74 - 99 [facility] brendan Moran Work Phone: Potassium [Moles/Vol] 4.1 mmol/L 3.5 - 5.3 [facility] [facility] Work Phone: [phone] Protein [Mass/Vol] 7.6 g/dL 6.4 - 8.2 [facility] Work Phone: [phone] Sodium [Moles/Vol] 139 mmol/L 136 - 145 [facility] Work Phone: [phone] Urea nitrogen [Mass/Vol] 31 mg/dL above high threshold 6 - 23 [facility] Work Phone: [phone] NECK WITH CONTRASTon 0 11-06-[address] NECK WITH CONTRAST Patient Name: SHAJI ESQUIVEL STUDY: CT NECK WITH CONTRAST; 11/06/2022 11:23 am INDICATION: sore throat. . COMPARISON: 01/11/2017. ACCESSION NUMBER(S): [id number] ORDERING CLINICIAN: ERICKSON HERNANDEZ TECHNIQUE: Axial CT [...] Ada Panel Informationon 11-06 74 {mL/min/1.73m2} >90 [facility] Work Phone: Comment on above: CALCULATIONS OF VELASQUEZ MATED GFR ARE PERFORMED USING THE 2020 CKD-EPI STUDY REFIT EQUATION WITHOUT THE RACE VARIABLE FOR THE IDMS-TRACEABLE CREATININE METHODS.https://jasn.asnjournals.org/content//ASN .3241277333 Provider Note - ED v3on 10-09 Provider [...] She did have a fall at her care home yesterday and has bruises to her L [...] History Descrip (more content not included)... Normal [facility] Radiology 11-06-2022 XR Chest Single [facility] Work Phone: Risk Screen - [...] an injured patient at a Trauma Center ([facility]/[place]/[facility]/[place]): no Electronic Signatures: Saida Fairbanks ([place]) (Signed 06-Nov-2022 10:09) Authored: Preferred Language, Patient Preferred Pharmacy, Advanced Directives, Family Violence Adult, Learning Assessment (Patient), Learning Assessment (Other Learner), Pressure Injury/TB/Substance, Pressure Injury, CAGE Last Updated: 06-Nov-2022 10:09 by Saida Fairbanks ([place]) Normal [facility] TROPONIN I, HIGH SENSITIVITY on 11-06-2022 TROPONIN I, HIGH SENSITIVITY 4 ng/L Normal 0 - 13 [facility] Comment on above: Result Comment: . Less [...] performed using a different testing methodology at [facility] than at other [facility]. Direct result comparisons should only be made within the same method. Performed By: #### U [facility] #### [facility] [address] [place] [address] TROPONIN I, HIGH SENSITIVITY 4 ng/L Normal 0 - 13 [facility] Comment on above: Result Comment: . Less [...] performed using a different testing methodology at [facility] than at other [facility]. Direct result comparisons should only be made within the same method. Performed By: #### T [facility] #### [address] [place] [address] Tropinin I.cardiac panel High sensitivity method 4 [...] performed using a different testing methodology at [facility] than at other [facility]. Direct result comparisons should only [...] performed using a different testing methodology at [facility] than at other [facility]. Direct result comparisons should only be made within the same method. Triage - EDon 11-06-2022 Triage - ED Quick Triage: The patient and/or guardian verbally acknowledges placement for services into the following (when Urgent Care Service hours are operating):emergency department Chart Review: ARRIVAL INFORMATION Mode of Arrival: ambulance Agency: [facility] Agency Name: [facility] CHIEF COMPLAINT SHAJI ESQUIVEL is a Female patient with a chief complaint of weakness (Brought to ED per [facility] squad from [facility]. Staff reports that upon arrival to their facility today she seemed weaker than normal. She did have a fall at her care home yesterday and has bruises to her L [...] support. Weight: 130.0 pounds. Calculated 59.0 kg. [place] Coma Scale: Best Eye Response: (E4) spontaneous Best Motor Response: (M6) obeys commands Best Verbal Response: (V5) oriented [place] Score: 15 Cough lasting greater than 3 [...] 06-Nov-2022 09:52 by Jackie Bonilla ([place]) Normal [facility] UA MICROSCOPICon 11-06-2022 RBC 3 /HPF Normal 0-5 [facility] Comment on above: Performed By: #### U RINC #### [facility] [address] [place] [address] SQUAMOUS EPITH. CELLS 1 /HPF Normal [facility] Comment on above: Performed By: #### U RINC #### [facility] [address] [place] [address] WBC 16 /HPF Abnormal 0-5 [facility] Comment on above: Performed By: #### U RINC #### [facility] [address] [place] [address] URINALYSIS WITH CULTURE IF I NDICATEDon 11-06-2022 Appearance (U) HAZY Normal CLEAR [facility] Comment on above: Performed By: #### U AR[facility] #### [address] [address] Bilirubin Ql (U) Negative Normal NEGATIVE [facility] Comment on above: Performed By: #### U ARFX #### [place] [address] Color (U) Yellow Normal STRAW,YELLOW [facility] Comment on above: Performed By: #### U [facility] #### [address] [address] Glucose Ql (U) Negative Normal NEGATIVE [facility] Comment on above: Performed By: #### U AR[facility] #### [address] [address] Hemoglobin Ql (U) Negative Normal NEGATIVE [facility] Comment on above: Performed By: #### U AR[facility] #### [address] [address] Ketones Ql (U) Negative Normal NEGATIVE [facility] Comment on above: Performed By: #### U AR[facility] #### [address] [address] Leukocyte esterase Test strip Ql (U) TRACE Abnormal NEGATIVE [facility] Comment on above: Performed By: #### U AR[facility] #### [address] [address] Nitrite Ql (U) Positive Abnormal NEGATIVE [facility] Comment on above: Performed By: #### U AR[facility] #### [address] [address] pH (U) 7.0 [pH] Normal 5.0 - 8.0 [facility] Comment on above: Performed By: #### U [facility] #### [address] [address] Protein Ql (U) Negative Normal NEGATIVE [facility] Comment on above: Performed By: #### U [facility] #### [address] [address] Specific gravity (U) [Rel density] 1.036 High 1.005 - 1.035 [facility] Comment on above: Performed By: #### U AR[facility] #### [address] [address] Urobilinogen (U) [Mass/Vol] mg/dL Normal 0.0 - 1.9 [facility] Comment on above: Performed By: #### U AR[facility] #### [address] [address] Color (U) Yellow See Below [facility] Work Phone: Comment on above: Reference Range: STR AW,YELLOW Glucose Ql (U) Negative NEGATIVE [facility] Work Phone: Ketones Ql (U) Negative NEGATIVE [facility] Work Phone: Leukocyte esterase Test strip Ql (U) TRACE Abnormal NEGATIVE [facility] Work Phone: pH (U) 7.0 [pH] 5.0 - 8.0 [facility] Work Phone: Protein (U) [Mass/Vol] Negative NEGATIVE [facility] Work Phone: RBC (U) [#/Vol] Negative NEGATIVE [facility] Work Phone: Specific gravity (U) [Rel density] 1.036 1 above high threshold See Below [facility] cardona Moran Work Phone: Comment on above: Reference Range: 1.0 05 - 1.035 URINALYSIS WITH CULTURE IF INDICATED Positive Abnormal NEGATIVE [facility] brendan Moran Work Phone: [phone] URINALYSIS WITH CULTURE IF INDICATED <2.0 0.0 - 1.9 [facility] brendan Moran Work Phone: [phone] URINALYSIS WITH CULTURE IF INDICATED Negative NEGATIVE [facility] brendan Moran Work Phone: [phone] URINALYSIS WITH CULTURE IF INDICATED HAZY CLEAR [facility] brendan Moran Work Phone: URINE CULTURE,BACTERIALon URINE CULTURE,BACTERIAL PATIENT: SHAJI ESQUIVEL LOCATION: [facility] BILL#: [id number] : 60 AGE: SEX: F ORDERED BY: [...] DOSE DEPENDENT NS=NONSUSCEPTIBLE X=REPORTED IN ERROR Normal [facility] Comment on above: Performed By: #### U [facility] #### [facility] [address] [place] [address] Urinalysis, Microscopicon Urinalysis, Microscopic 1 {/HPF} [facility] Moran Work Phone: [phone] Urinalysis, Microscopic 3 {/HPF} 0-5 [facility] ritan Moran Work Phone: [phone] Urinalysis, Microscopic 16 {/HPF} Abnormal 0-5 [facility] Work Phone: [phone] CT C-SPINE WO CONTRASTon CT C-SPINE WO CONTRAST Patient Name: SHAJI ESQUIVEL STUDY: CT HEAD WO CONTRAST; CT FACIAL BONES; CT CORONAL/SAGITTAL/OBLIQU E RECON; CT C-SPINE WO CONTRAST; 10/07/2022 10:13 pm INDICATION: fall . COMPARISON: CT head and cervical spine 08/18/2022 ACCESSION NUMBER(S): [id number]; [id number]; [id number]; [id number] ORDERING CLINICIAN: OSIEL VERGARA TECHNIQUE: Axial noncontrast [...] spine. Electronically signed by: RENA ABBOTT MD [facility] CT FACIAL BONES W/O CONTRAST on 10-08-2022 CT FACIAL BONES W/O CONTRAST Patient Name: SHAJI ESQUIVEL STUDY: CT HEAD WO CONTRAST; CT FACIAL BONES; CT CORONAL/SAGITTAL/OBLIQU E RECON; CT C-SPINE WO CONTRAST; 10/07/2022 10:13 pm INDICATION: fall . COMPARISON: CT head and cervical spine 08/18/2022 ACCESSION NUMBER(S): [id number]; [id number]; [id number]; [id number] ORDERING CLINICIAN: OSIEL VERGARA TECHNIQUE: Axial noncontrast [...] spine. Electronically signed by: RENA ABBOTT MD [facility] CT HEAD WO CONTRASTon 2022 CT HEAD WO CONTRAST Patient Name: SHAJI ESQUIVEL STUDY: CT HEAD WO CONTRAST; CT FACIAL BONES; CT CORONAL/SAGITTAL/OBLIQU E RECON; CT C-SPINE WO CONTRAST; 10/07/2022 10:13 pm INDICATION: fall . COMPARISON: CT head and cervical spine 08/18/2022 ACCESSION NUMBER(S): [id number]; [id number]; [id number]; [id number] ORDERING CLINICIAN: OSIEL VERGARA TECHNIQUE: Axial noncontrast [...] spine. Electronically signed by: RENA ABBOTT MD [facility] CT IMAGE RECONSTRUCTION 3D V OLUME and MIPon 10-08-2022 CT IMAGE RECONSTRUCTION 3D VOLUME and MIP Patient Name: SHAJI ESQUIVEL STUDY: CT HEAD WO CONTRAST; CT FACIAL BONES; CT CORONAL/SAGITTAL/OBLIQU E RECON; CT C-SPINE WO CONTRAST; 10/07/2022 10:13 pm INDICATION: fall . COMPARISON: CT head and cervical spine 08/18/2022 ACCESSION NUMBER(S): [id number]; [id number]; [id number]; [id number] ORDERING CLINICIAN: OSIEL VERGARA TECHNIQUE: Axial noncontrast [...] spine. Electronically signed by: RENA ABBOTT MD [facility] Provider Note - ED v3on 05-0 [...] and all history was presented by patient's oncology rep at the care home and EMS. ROS: All systems are negative [...] of fall (pt here via EMS from care home, pt was reaching over to pick something [...] [October 07 (more content not included)... Normal [facility] Risk Screen - Adult Emergenc yon 10-07-2022 [...] material; verbal instruction Cultural Considerationsnone Developmental Considerationsnone Presybeterian Considerationsnone Learning Assessment (Other Learner): Learning Assessment (Other Learner): Other learner availableno Pressure Injury/TB/Substance: Pressure Injury: Do you have a coughno Smoking Statusnever smoker Admission Risk Screen: Significant IndicatorsComplete CAGE: CAGE: Is this an injured patient at a Trauma Center ([facility]/[place]/[place]): no Electronic Signatures: Lakshmi Aguayo (RN) (Signed 07-Oct-2022 21:02) Authored: Preferred Language, Patient Preferred Pharmacy, Advanced Directives, Family Violence Adult, Learning Assessment (Patient), Learning Assessment (Other Learner), Pressure Injury/TB/Substance, Pressure Injury, CAGE Last Updated: 07-Oct-2022 21:02 by Lakshmi Aguayo (RN) [facility] Triage - EDon 10-07-2022 Triage - ED Chart Review: ARRIVAL INFORMATION Mode of Arrival: ambulance Agency Name: [facility] CHIEF COMPLAINT SHAJI ESQUIVEL is a Female patient with a chief complaint of fall (pt here via EMS from care home, pt was reaching over to pick something [...] Last Updated: 07-Oct-2022 21:24 by Lakshmi Aguayo) [facility] Clinical Event Note-ED Post Discharge Result [...] these results and how to follow up. [address] [place] [address] Dr. BrockAcamp[facility], [facility] Would recommend DC Keflex and start Bactrim. If there are any other questions for the ED Post-Discharge Culture Follow Up Team, please contact [phone]. . Ann Cardoza PharmD, [facility] Clinical Pharmacist - Culture Callback Pharmacist [facility] Electronic Signatures: Ann Cardoza (PharmAmeena) (Signed 22-Aug-2022 09:09) Authored: Clinical Event Note Last Updated: 22-Aug-2022 09:09 by Ann Cardoza (PharmAmeena) [facility] Clinical Event Note-ED Post Discharge Result [...] room. The patient was discharged back their care home. The Culture Callback Team will turn over [...] Post-Discharge Culture Follow Up Team, please contact [phone]. . Ramón Kimble PharmD PGY1 Special Officer Automat Culture Callback Pharmacist [facility] Electronic Signatures: Ramón Kimble ([facility]) (Signed 22-Aug-2022 09:48) Authored: Clinical Event Note Ann CardozaPharmAmeena) (Signed 23-Aug-2022 08:16) Co-Signer: Clinical Event Note Last Updated: 23-Aug-2022 08:16 by Ann CardozaPharmAmeena) [facility] Clinical Event Note-ED Post Discharge Result [...] Post-Discharge Culture Follow Up Team, please contact [phone]. . Angeles Rai PharmD [facility] PGY1 Special Officer Automat Electronic Signatures: Angeles [facility]ai[facility]) (Signed 21-Aug-2022 14:15) Authored: Clinical Event Note Ann CardozaPharmAmeena) (Signed 22-Aug-2022 08:22) Co-Signer: Clinical Event Note Last Updated: 22-Aug-2022 08:22 by Ann Cardoza (PharmD) [facility] BASIC METABOLIC PANELon 03- Anion gap [Moles/Vol] 14 mmol/L Normal 10 - 20 [facility] Comment on above: Performed By: #### B MP #### [address] [address] Calcium [Mass/Vol] 9.0 mg/dL Normal 8.6 - 10.3 [facility] Comment on above: Performed By: #### B MP #### [address] [address] Chloride [Moles/Vol] 110 mmol/L High 98 - 107 [facility] Comment on above: Performed By: #### B MP #### [address] [address] Creatinine [Mass/Vol] 0.78 mg/dL Normal 0.50 - 1.05 [facility] Comment on above: Performed By: #### B MP #### [address] [address] GFR/1.73 sq M.predicted among non-blacks MDRD (S/P/Bld) [Vol rate/Area] 86 mL/min/{1.73_m2} Normal >90 [facility] Comment on above: Result Comment: CALC ULATIONS OF ESTIMATED GFR ARE PERFORMED USING THE 2020 CKD-EPI STUDY REFIT EQUATION WITHOUT THE RACE VARIABLE FOR THE IDMS-TRACEABLE CREATININE METHODS. https://jasn.asnjournals.org/content//ASN.0377464 988 Performed By: #### B MP #### [address] [address] Glucose [Mass/Vol] 117 mg/dL High 74 - 99 [facility] Comment on above: Performed By: #### B MP #### [address] [address] HCO3 (Bld) [Moles/Vol] 25 mmol/L Normal 21 - 32 [facility] Comment on above: Performed By: #### B MP #### [address] [address] Potassium [Moles/Vol] 3.9 mmol/L Normal 3.5 - 5.3 [facility] Comment on above: Performed By: #### B MP #### [address] [address] Sodium [Moles/Vol] 145 mmol/L Normal 136 - 145 [facility] Comment on above: Performed By: #### B MP #### [address] [address] Urea nitrogen [Mass/Vol] 29 mg/dL High 6 - 23 [facility] Comment on above: Performed By: #### B MP #### [address] [address] CBC AND DIFFERENTIALon 08-18 % AUTOMATED IMMATURE GRAN 0.3 % Normal 0.0 - 0.9 [facility] Comment on above: Result Comment: Reina ture Granulocyte Count (IG) includes promyelocytes, myelocytes and metamyelocytes but does not include bands. Percent differential counts (%) should be interpreted in the context of the absolute cell counts (cells/L). Performed By: #### U RINC #### [facility] [address] [place] [address] Basophils (Bld) [#/Vol] 0.03 10*3/uL Normal 0.00 - 0.10 [facility] Comment on above: Performed By: #### U RINC #### [facility] [address] [place] [address] Basophils/100 WBC (Bld) 0.4 % Normal 0.0 - 2.0 [facility] Comment on above: Performed By: #### U RINC #### [facility] [address] [place] [address] Eosinophils (Bld) [#/Vol] 0.03 10*3/uL Normal 0.00 - 0.70 [facility] Comment on above: Performed By: #### U RINC #### [facility] [address] [place] [address] Eosinophils/100 WBC (Bld) 0.4 % Normal 0.0 - 6.0 [facility] Comment on above: Performed By: #### U RINC #### [facility] [address] [place] [address] Lymphocytes (Bld) [#/Vol] 1.31 10*3/uL Normal 1.20 - 4.80 [facility] Comment on above: Performed By: #### U RINC #### [facility] [address] [place] [address] Lymphocytes/100 WBC (Bld) 17.6 % Normal 13.0 - 44.0 [facility] Comment on above: Performed By: #### U RINC #### [facility] [address] [place] [address] Monocytes (Bld) [#/Vol] 0.46 10*3/uL Normal 0.10 - 1.00 [facility] Comment on above: Performed By: #### U RINC #### [facility] [address] [place] [address] Monocytes/100 WBC (Bld) 6.2 % Normal 2.0 - 10.0 [facility] Comment on above: Performed By: #### U RINC #### [facility] [address] [place] [address] Neutrophils (Bld) [#/Vol] 5.60 10*3/uL Normal 1.20 - 7.70 [facility] Comment on above: Result Comment: Perc ent differential counts (%) should be interpreted in the context of the absolute cell counts (cells/L). Performed By: #### U RINC #### [facility] [address] [place] [address] Neutrophils/100 WBC (Bld) 75.1 % Normal 40.0 - 80.0 [facility] Comment on above: Performed By: #### U RINC #### [facility] [address] [place] [address] Erythrocyte distribution width (RBC) [Ratio] 13.4 % Normal 11.5 - 14.5 [facility] Comment on above: Performed By: #### U RINC #### [facility] [address] [place] [address] Hematocrit (Bld) [Volume fraction] 41.4 % Normal 36.0 - 46.0 [facility] Comment on above: Performed By: #### U RINC #### [facility] [address] [place] [address] Hemoglobin (Bld) [Mass/Vol] 12.3 g/dL Normal 12.0 - 16.0 [facility] Comment on above: Performed By: #### U RINC #### [facility] [address] [place] [address] MCHC (RBC) [Mass/Vol] 29.7 g/dL Low 32.0 - 36.0 [facility] Comment on above: Performed By: #### U RINC #### [facility] [address] [place] [address] MCV (RBC) [Entitic vol] 94 fL Normal 80 - 100 [facility] Comment on above: Performed By: #### U RINC #### [facility] [address] [place] [address] Platelets (Bld) [#/Vol] 291 10*3/uL Normal 150 - 450 [facility] Comment on above: Performed By: #### U RINC #### [facility] [address] [place] [address] RBC 4.41 x10E12/L Normal 4.00 - 5.20 [facility] Comment on above: Performed By: #### U RINC #### [facility] [address] [place] [address] WBC (Bld) [#/Vol] 7.5 10*3/uL Normal 4.4 - 11.3 [facility] Comment on above: Performed By: #### U RINC #### [facility] [address] [place] [address] CT C-SPINE WO CONTRASTon CT C-SPINE WO CONTRAST Patient Name: SHAJI ESQUIVEL STUDY: CT C-SPINE WO CONTRAST; 08/18/2022 1:14 pm INDICATION: fall . COMPARISON: None. ACCESSION NUMBER(S): [id number] ORDERING CLINICIAN: SHARMAINE DEAN TECHNIQUE: Unenhanced axial [...] changes. Electronically signed by: MIKE PRICE MD [facility] CT HEAD WO CONTRASTon 2022 CT HEAD WO CONTRAST Patient Name: SHAJI ESQUIVEL STUDY: CT HEAD WO CONTRAST; 08/18/2022 1:14 pm INDICATION: fall . COMPARISON: 08/09/2022 ACCESSION NUMBER(S): [id number] ORDERING CLINICIAN: SHARMAINE DEAN TECHNIQUE: Unenhanced images [...] process. Electronically signed by: MIKE PRICE MD [facility] HAND MIN 3 VIEWSon 3 HAND MIN 3 VIEWS Patient Name: SHAJI ESQUIVEL STUDY: HAND MIN 3 VIEWS; Left; 08/18/2022 1:00 pm INDICATION: fall . COMPARISON: None. ACCESSION NUMBER(S): [id number] ORDERING CLINICIAN: SHARMAINE DEAN FINDINGS: Exam is limited by flexion of the fingers and inability to the remove a ring from the 4th digit. All no definite acute fracture within limits of this exam. IMPRESSION: No definite acute findings. Electronically signed by: HAO BELLO MD [facility] Provider Note - ED v3on 08-07 Provider Note - ED v3 Provider Note: Chart Review: ED NOTES ED NOTES: HPI: Patient brought to the emergency department by norah after reported fall at a local care home. Per report from norah patient was sat [...] yes or no questions, GCS 15 , production sorter II-XII grossly intact. Sensation and motor function of extremities grossly intact. Psych: Appropriate mood and affect. I have reviewed and confirmed nurses/medics notes for patient past, social and family history. Portions of this note were dictated by speech recognition. An attempt at proof reading was made to minimize errors. Minor errors in young adult librarian may be present. HISTORY OF PRESENTING ILLNESS [...] (GERD) Description:Anemia (more content not included)... Normal [facility] Risk Screen - Adult Emergenc yon 08-18-2022 [...] Communicatenone Learning Preferencesaudio Cultural Considerationsnone Developmental Considerationsnone Presybeterian Considerationsnone Pressure Injury/TB/Substance: Pressure Injury: Do you have a coughno Smoking Statusnever smoker Alcohol Usedenies Drug Usedenies Admission Risk Screen: Significant IndicatorsComplete CAGE: CAGE: Is this an injured patient at a Trauma Center ([facility]/[place]): no Electronic Signatures: Anne Zavaleta) (Signed 18-Aug-2022 12:49) Authored: Preferred Language, Patient Preferred Pharmacy, Advanced Directives, Family Violence Adult, Learning Assessment (Patient), Learning Assessment (Other Learner), Pressure Injury/TB/Substance, Pressure Injury, CAGE Last Updated: 18-Aug-2022 12:49 by Anne Zavaleta (RN) [facility] Triage - EDon 08-18-2022 Triage - [...] 18-Aug-2022 12:48 by Anne Zavaleta ([place]) Normal [facility] UA MICROSCOPICon 08-18-2022 BACTERIA 4+ /HPF Abnormal [facility] Comment on above: Performed By: #### U RINC #### [facility] [address] [place] [address] Mucus Ql (Urine sed) 3+ /LPF Normal [facility] Comment on above: Performed By: #### U RINC #### [facility] [address] [place] [address] RBC 2 /HPF Normal 0-5 [facility] Comment on above: Performed By: #### U RINC #### [facility] [address] [place] [address] SQUAMOUS EPITH. CELLS 1 /HPF Normal [facility] Comment on above: Performed By: #### U RINC #### [facility] [address] [place] [address] WBC 18 /HPF Abnormal 0-5 [facility] Comment on above: Performed By: #### U RINC #### [facility] [address] [place] [address] URINALYSIS WITH CULTURE IF I NDICATEDon 08-18-2022 Appearance (U) HAZY Normal CLEAR [facility] Comment on above: Performed By: #### U ARFX #### [facility] [address] [place] [address] Bilirubin Ql (U) Negative Normal NEGATIVE [facility] Comment on above: Performed By: #### U ARFX #### [place] [address] Color (U) Serenity Normal STRAW,YELLOW [facility] Comment on above: Performed By: #### U ARFX #### [place] [address] Glucose Ql (U) Negative Normal NEGATIVE [facility] Comment on above: Performed By: #### U ARFX #### [place] [address] Hemoglobin Ql (U) Negative Normal NEGATIVE [facility] Comment on above: Performed By: #### U ARFX #### [place] [address] Ketones Ql (U) 20(1+) Abnormal NEGATIVE [facility] Comment on above: Performed By: #### U ARFX #### [place] [address] Leukocyte esterase Test strip Ql (U) TRACE Abnormal NEGATIVE [facility] Comment on above: Performed By: #### U ARFX #### [place] [address] Nitrite Ql (U) Positive Abnormal NEGATIVE [facility] Comment on above: Performed By: #### U ARFX #### [place] [address] pH (U) 5.0 [pH] Normal 5.0 - 8.0 [facility] Comment on above: Performed By: #### U ARFX #### [place] [address] Protein Ql (U) 30(1+) Abnormal NEGATIVE [facility] Comment on above: Performed By: #### U ARFX #### [place] [address] Specific gravity (U) [Rel density] 1.029 Normal 1.005 - 1.035 [facility] Comment on above: Performed By: #### U ARFX #### [place] [address] Urobilinogen (U) [Mass/Vol] 2.0 mg/dL High 0.0 - 1.9 [facility] Comment on above: Result Comment: Due to [...] urobilinogen. Performed By: #### U ARFX #### [place] [address] Lab Specimen Source Normal [facility] Comment on above: Performed By: #### U ARFX #### [place] [address] Performed By: #### U RINC #### [facility] [address] [place] [address] URINE CULTURE,BACTERIALon URINE CULTURE,BACTERIAL PATIENT: SHAJI ESQUIVEL [facility] [id number] : 60 AGE: SEX: F ORDERED BY: [...] DOSE DEPENDENT NS=NONSUSCEPTIBLE X=REPORTED IN ERROR Normal [facility] Comment on above: Performed By: #### U [facility] ####[id number] [place] [address] CT C-SPINE WO CONTRASTon CT C-SPINE WO CONTRAST Addendum Begins Patient Name: SHAJI ESQUIVEL ADDENDUM: 3D volume rendered images were provided and reviewed. Electronically signed by: ZULEMA BRAXTON MD Addendum Ends Patient Name: SHAJI ESQUIVEL STUDY: CT HEAD WO CONTRAST; CT FACIAL BONES; CT C-SPINE WO CONTRAST; 08/09/2022 10:10 am INDICATION: head injury ; fall with injury . COMPARISON: None. ACCESSION NUMBER(S): [id number]; [id number]; [id number] ORDERING CLINICIAN: ERICKSON HERNANDEZ TECHNIQUE: Noncontrast axial [...] spine. Electronically signed by: ZULEMA BRAXTON MD [facility] CT FACIAL BONES W/O CONTRAST on [...] with injury . COMPARISON: None. ACCESSION NUMBER(S): [id number]; [id number]; [id number] ORDERING CLINICIAN: ERICKSON HERNANDEZ TECHNIQUE: Noncontrast axial [...] spine. Electronically signed by: ZULEMA BRAXTON MD [facility] CT HEAD WO CONTRASTon 2022 CT [...] with injury . COMPARISON: None. ACCESSION NUMBER(S): [id number]; [id number]; [id number] ORDERING CLINICIAN: ERICKSON HERNANDEZ TECHNIQUE: Noncontrast axial [...] spine. Electronically signed by: ZULEMA BRAXTON MD [facility] CT IMAGE RECONSTRUCTION 3D V OLUME [...] with injury . COMPARISON: None. ACCESSION NUMBER(S): [id number]; [id number]; [id number] ORDERING CLINICIAN: ERICKSON HERNANDEZ TECHNIQUE: Noncontrast axial [...] spine. Electronically signed by: ZULEMA BRAXTON MD [facility] Provider Note - ED v3on 03-0 [...] SIGNS: T PRBP SpO2O2(LPM) %FiO2 Method 09-Aug-2022 09:23:[id number]/75 98 room air, no respiratory support MDM [...] of Care: (more content not included)... Normal [facility] Risk Screen - Adult Emergenc yon 08-09-2022 [...] Communicatenone Learning Preferencesaudio Cultural Considerationsnone Developmental Considerationsnone Presybeterian Considerationsnone Pressure Injury/TB/Substance: Pressure Injury: Do you have a coughno Smoking Statusnever smoker Alcohol Usedenies Drug Usedenies Admission Risk Screen: Significant IndicatorsComplete CAGE: CAGE: Is this an injured patient at a Trauma Center ([facility]/[place]): no Electronic Signatures: Anna Bermudez ([place]) (Signed 09-Aug-2022 09:26) Authored: Preferred Language, Patient Preferred Pharmacy, Advanced Directives, Family Violence Adult, Learning Assessment (Patient), Learning Assessment (Other Learner), Pressure Injury/TB/Substance, Pressure Injury, CAGE Last Updated: 09-Aug-2022 09:26 by Anna Bermudez (RN) [facility] Triage - EDon 08-09-2022 Triage - [...] BMI (kg/m2): 24.218 Calculated BSA (m2) 1.62 [place] Coma Scale: Best Eye Response: (E4) spontaneous Best Motor Response: (M6) obeys commands Best Verbal Response: (V4) confused [place] Score: 14 Allergies: no Patient has homicidal [...] Updated: 09-Aug-2022 09:25 by Anna Bermudez (RN) [facility] CHEST 1 VIEWon 05-26-2022 CHEST 1 VIEW STUDY: Chest Radiograph; 05/25/2022 10:15 PM INDICATION: Trouble swallowing. Looking for foreign body. COMPARISON: 08/10/2021 XR Chest ACCESSION NUMBER(S): [id number] ORDERING CLINICIAN: FRANCE LOWE MD TECHNIQUE: Frontal chest was obtained at 2215 hours. FINDINGS: No radiodense foreign body is identified. Both lungs are clear. The heart and mediastinum are of normal size and contour. No pleural effusion. No pneumothorax. No acute bony abnormality identified. IMPRESSION: No findings of an acute cardiopulmonary process. Signed by Sachin Henley MD Electronically signed by: SACHIN HENLEY MD [facility] SOFT TISSUE NECKon SOFT TISSUE NECK STUDY: Soft Tissue Neck Radiographs; 05/25/2022 at 10:17 PM INDICATION: Difficulty swallowing. Evaluate for foreign body. COMPARISON: XR chest of same date, 05/25/22. ACCESSION NUMBER(S): [id number] ORDERING CLINICIAN: FRANCE LOWE MD TECHNIQUE: Two [...] MD Electronically signed by: FARIDA LUCIANO MD [facility] Provider Note - ED v3on 05-09 Provider Note - ED v3 Provider Note: Chart Review: ED NOTES ED NOTES: History of Present Illness: Female presenting to emergency department from [facility] after choking on a piece of broccoli. [...] pertinent to complaint Social history: Lives in [facility], denies EtOH or drug use REVIEW OF [...] SIGNS: T PRBP SpO2O2(LPM) %FiO2 Method 25-May-2022 23:13:00-5124243/90 95 room air, no respiratory support 25-May-2022 19:37:00-9294873/80 96 room air, no respiratory support 25-May-2022 18:53:00-36.42819751/82 99 room air, no respiratory support MDM [...] Course, Clini (more content not included)... Normal [facility] Risk Screen - Adult Emergenc yon 05-25-2022 [...] Communicatenone Learning Preferencesaudio Cultural Considerationsnone Developmental Considerationsnone Presybeterian Considerationsnone Learning Assessment (Other Learner): Learning Assessment (Other Learner): Other learner availableno Pressure Injury/TB/Substance: Pressure Injury: Do you have a coughno Smoking Statusnever smoker Alcohol Usedenies Drug Usedenies Admission Risk Screen: Significant IndicatorsComplete CAGE: CAGE: Is this an injured patient at a Trauma Center ([facility]/[place]): no Electronic Signatures: Anne Zavaleta ([place]) (Signed 25-May-2022 19:05) Authored: Preferred Language, Patient Preferred Pharmacy, Advanced Directives, Family Violence Adult, Learning Assessment (Patient), Learning Assessment (Other Learner), Pressure Injury/TB/Substance, Pressure Injury, CAGE Last Updated: 25-May-2022 19:05 by Anne Zavaleta (RN) [facility] Triage - EDon 05-25-2022 Triage - ED Chart Review: ARRIVAL INFORMATION Mode of Arrival: ambulance Agency Name: [place] CHIEF COMPLAINT SHAJI ESQUIVEL is a Female [...] to assess Risk Screens Suicide Risk Screen [place] Risk Screen: unable to assess [place] Risk Screen Brunson Fall Scale Screening Unable [...] Updated: 25-May-2022 19:04 by Anne Zavaleta ([place]) [facility] VASC LAB Venous Duplex Ultra sound DVTon 11-14-2022 VASC LAB Venous [place] [address] [phone], Vascular Lab Report Lower Venous Duplex Ultrasound Patient Name: SHAJI Pruitt Reading Physician: [id number] Deshaun Lee MD Study Date: 04/22/2022 Referring ANTWAN MAHARAJ Physician: MRN/PID: [id number] PCP: Accession/Order#: [id number] CC Report to: Date of : 1960 Technologist: Tanna Drake RVT Gender: F Technologist 2: Admission Status: Outpatient Location Performed: [facility] Diagnosis/ICD: R60.0-Localized (leg) edema; M79.89-Right leg swelling Procedure/CPT: 70952 Peripheral venous duplex scan for DVT Limited-70978 CONCLUSIONS: Right Lower Venous: No evidence of [...] Iliac Yes None CFV Yes None Spontaneous/Phasic [id number] Deshaun Lee MD Final Normal [facility] XR LUMBAR PUNCTURE (DIAGNOST IC) WITH GAIT ANALYSISon 04-17-2022 XR LUMBAR PUNCTURE (DIAGNOSTIC) WITH GAIT ANALYSIS EXAMINATION: XR LUMBAR PUNCTURE (DIAGNOSTIC) WITH GAIT ANALYSIS CLINICAL INDICATION: NPHORDERING SYSTEM PROVIDED HISTORY: NPH, TECHNOLOGIST PROVIDED HISTORY: Illness/Other Reason for exam: G91.2 (ICD-10-CM) - NPH (normal pressure hydrocephalus) ([facility] Encounter Type: Initial Additional signs and symptoms: no Fluoro dose in mGy: 14.5 ORDERING SYSTEM PROVIDED DIAGNOSIS CODES: G91.2 NPH (normal pressure hydrocephalus) ([facility]) PHYSICIAN: Dr. Tong FLUOROSCOPY DOSE: Fluoro dose [...] FriApr 17, 2022 10:14:57 AM EST Normal [facility] Comment on above: Order Comment: Injur y/Trauma or Illness?:Illness/Other How long have you had these symptoms (acute/chronic)?:Acute Reason for exam?:G91.2 (ICD-10-CM) - NPH (normal pressure hydrocephalus) ([facility] Type of Exam?:Initial Additional signs and symptoms?:no Fluoro time in minutes:16 Fluoro dose in mGy?:14.5 CBC panel Auto (Bld)on 04-15 Erythrocyte distribution width (RBC) [Entitic vol] 12.3 % 11.6 - 14.8 % [facility] Hematocrit (Bld) [Volume fraction] 39.5 % 36 - 46 % [facility] Hemoglobin (Bld) [Mass/Vol] 12.0 g/dL 12 - 16 g/dL [facility] Interpretation and review of laboratory results Abnormal [facility] MCH (RBC) [Entitic mass] 29.2 pg 26 - 34 pg [facility] MCHC (RBC) [Mass/Vol] 30.4 g/dL Low 31 - 37 g/dL [facility] MCV (RBC) [Entitic vol] 96.1 fL 80 - 100 fL [facility] Nucleated RBC (Bld) [#/Vol] 0.00 10*3/uL [facility] Nucleated RBC/100 WBC (Bld) [Ratio] 0.0 % [facility] Platelet mean volume (Bld) [Entitic vol] 10.0 fL 9.4 - 12.4 fL [facility] Platelets (Bld) [#/Vol] 299 10*3/uL [facility] RBC (Bld) [#/Vol] 4.11 10*6/uL [facility] ealth WBC (Bld) [#/Vol] 6.64 10*3/uL [facility] MARCELL Teston 02-26-2019 MARCELL Test Negative Normal Negative [facility] Comment on above: Performed By: #### 8 [id number] #### GRAYSON Misc Micro SubSection , Glucose POCon 02-25-2019 Glucose [Mass/Vol] 97 mg/dL Normal 70-99 [facility] Comment on above: Performed By: #### 5 [id number] #### [place] POC Subsection [facility] [place] [address] XR UPPER GI SERIESon 019 1. Limited study. 2. No esophageal mass or stricture. 3. Findings suggestive of gastritis with possible ulcers in the gastric antrum. 4. Large amount of gastroesophageal reflux. [employer] Workstation ID: [id number] [facility] EXAMINATION: XR UPPE R GI SERIES HISTORY: [...] esophagus. No evidence of gastric outlet obstruction. [facility] Interface, Rad In Mikey [employer] - 11/03/2018 [...] antrum. 4. Large amount of gastroesophageal reflux. [employer] Workstation ID: [id number] [facility] US Abdomen Completeon 2018 US Abdomen Complete Exam Date/Time: 09/17/2018 08:09 EDT Reason for Exam: ABD PAIN UNSPECIFIED LOCATION Report STUDY: US Abdomen Complete; 09/17/2018 8:09 am INDICATION: 58 y/o F with ABD PAIN UNSPECIFIED LOCATION. COMPARISON: None. ACCESSION NUMBER(S): [id number] ORDERING CLINICIAN: Antwan Maharaj TECHNIQUE: Routine ultrasound [...] by: Marysol Peña MD Technologist: HARIKA Normal [facility] Ferritinon 12-25-2017 Ferritin 5 ng/mL Low 13-150 [facility] Comment on above: Result Comment: Samp les from patients routinely receiving high dose biotin therapy(100-300 mg/day) may show falsely decreased results. Please correlateclinically. Performed By: #### C BCWOD, CMET, LIPID, HBA1C ####Unless otherwise noted, all testing performed by [address] [phone]: [id number] Director: David Mcclain M.D. Iron, Totalon 12-25-2017 Iron, Total 44 mcg/dL Low 50-170 [facility] Comment on above: Performed By: #### C BCWOD, CMET, LIPID, HBA1C ####Unless otherwise noted, all testing performed by [address] [phone]: [id number] Director: David Mcclain M.D. Vitamin B12on 12-25-2017 Cobalamins (Vitamin B12) 322 pg/mL Normal 193-986 [facility] Comment on above: Performed By: #### C BCWOD, CMET, LIPID, HBA1C ####Unless otherwise noted, all testing performed by [address] [phone]: [id number] Director: David Mcclain M.D. CBC with Diffon 12-23-2017 Basophils Auto #/vol (Bld) 0.0 K/mcL Normal 0-0.2 [facility] Comment on above: Performed By: #### C BCWOD, CMET, LIPID, HBA1C ####Unless otherwise noted, all testing performed by [place] [phone]: [id number] Director: David Mcclain M.D. Basophils/100 WBC Auto (Bld) 0.3 % Normal [facility] Comment on above: Performed By: #### C BCWOD, CMET, LIPID, HBA1C ####Unless otherwise noted, all testing performed by [place] [phone]: [id number] Director: David Mcclain M.D. Eosinophils 0.3 K/mcL Normal 0-0.5 [facility] Comment on above: Performed By: #### C BCWOD, CMET, LIPID, HBA1C ####Unless otherwise noted, all testing performed by [address] [phone]: [id number] Director: David Mcclain M.D. Eosinophils/100 leukocytes 4.3 % Normal [facility] Comment on above: Performed By: #### C BCWOD, CMET, LIPID, HBA1C ####Unless otherwise noted, all testing performed by [address] [phone]: [id number] Director: David Mcclain M.D. Erythrocyte distribution width Auto Ratio (RBC) 14.5 % High 10.0-14.4 [facility] Comment on above: Performed By: #### C BCWOD, CMET, LIPID, HBA1C ####Unless otherwise noted, all testing performed by [address] [phone]: [id number] Director: David Mcclain M.D. Erythrocytes (RBC) 3.87 M/mcL Normal 3.7-5.0 [facility] Comment on above: Performed By: #### C BCWOD, CMET, LIPID, HBA1C ####Unless otherwise noted, all testing performed by [address] [phone]: [id number] Director: David Mcclain M.D. Hematocrit (HCT) 33.5 % Low 34.4-44.8 [facility] Comment on above: Performed By: #### C BCWOD, CMET, LIPID, HBA1C ####Unless otherwise noted, all testing performed by [address] [phone]: [id number] Director: David Mcclain M.D. Hemoglobin mass conc (Bld) 10.9 g/dL Low 11.6-15.4 [facility] Comment on above: Performed By: #### C BCWOD, CMET, LIPID, HBA1C ####Unless otherwise noted, all testing performed by [address] [phone]: [id number] Director: David Mcclain M.D. Lymphocytes 2.4 K/mcL Normal 1.0-3.7 [facility] Comment on above: Performed By: #### C BCWOD, CMET, LIPID, HBA1C ####Unless otherwise noted, all testing performed by [address] [phone]: [id number] Director: David Mcclain M.D. Lymphocytes/100 leukocytes 35.0 % Normal [facility] Comment on above: Performed By: #### C BCWOD, CMET, LIPID, HBA1C ####Unless otherwise noted, all testing performed by [address] [phone]: [id number] Director: David Mcclain M.D. MCH 28.2 pg Normal 27.9-33.9 [facility] Comment on above: Performed By: #### C BCWOD, CMET, LIPID, HBA1C ####Unless otherwise noted, all testing performed by [address] [phone]: [id number] Director: David Mcclain M.D. MCHC mass conc (RBC) 32.6 g/dL Low 33.1-35.1 [facility] Comment on above: Performed By: #### C BCWOD, CMET, LIPID, HBA1C ####Unless otherwise noted, all testing performed by [address] [phone]: [id number] Director: David Mcclain M.D. MCV 86.4 fL Normal 82.6-98.9 [facility] Comment on above: Performed By: #### C BCWOD, CMET, LIPID, HBA1C ####Unless otherwise noted, all testing performed by [address] [phone]: [id number] Director: David Mcclain M.D. Monocytes 0.5 K/mcL Normal 0.1-0.6 [facility] Comment on above: Performed By: #### C BCWOD, CMET, LIPID, HBA1C ####Unless otherwise noted, all testing performed by [address]CLIA: [id number] Director: David Mcclain M.D. Monocytes/100 leukocytes 7.4 % Normal [facility] Comment on above: Performed By: #### C BCWOD, CMET, LIPID, HBA1C ####Unless otherwise noted, all testing performed by [address]8509CLIA: [id number] Director: David Mcclain M.D. Neutrophils 3.6 K/mcL Normal 1.2-6.9 [facility] Comment on above: Performed By: #### C BCWOD, CMET, LIPID, HBA1C ####Unless otherwise noted, all testing performed by [address]8509CLIA: [id number] Director: David Mcclain M.D. Platelet mean volume (PMV) 8.1 fL Normal 7.0-10.6 [facility] Comment on above: Performed By: #### C BCWOD, CMET, LIPID, HBA1C ####Unless otherwise noted, all testing performed by [address]509CLIA: [id number] Director: David Mcclain M.D. Platelets 285 K/mcL Normal 162-402 [facility] Comment on above: Performed By: #### C BCWOD, CMET, LIPID, HBA1C ####Unless otherwise noted, all testing performed by [address] [phone]: [id number] Director: David Mcclain M.D. Segmented Neut % 53.0 % Normal [facility] Comment on above: Performed By: #### C BCWOD, CMET, LIPID, HBA1C ####Unless otherwise noted, all testing performed by [address] [phone]: [id number] Director: David Mcclain M.D. WBC (Leukocytes) 6.8 K/mcL Normal 3.4-10.6 [facility] Comment on above: Performed By: #### C BCWOD, CMET, LIPID, HBA1C ####Unless otherwise noted, all testing performed by [address] [phone]: [id number] Director: David Mcclain M.D. [facility] 12-23-2017 Alanine aminotransferase (ALT) 17 U/L Normal 14-65 [facility] Comment on above: Result Comment: This test result might be falsely depressed or falsely elevated onsamples drawn from patients taking Sulfasalazine and Sulfapyridine.Venipuncture should occur prior to taking either of these drugs. Performed By: #### C BCWOD, CMET, LIPID, HBA1C ####Unless otherwise noted, all testing performed by [address] [phone]: [id number] Director: David Mcclain M.D. Albumin 3.3 g/dL Normal 3.2-5.2 [facility] Comment on above: Performed By: #### C BCWOD, CMET, LIPID, HBA1C ####Unless otherwise noted, all testing performed by [address] [phone]: [id number] Director: David Mcclain M.D. Alkaline phosphatase (ALP) 35 U/L Low 40-150 [facility] Comment on above: Performed By: #### C BCWOD, CMET, LIPID, HBA1C ####Unless otherwise noted, all testing performed by [address] [phone]: [id number] Director: David Mcclain M.D. Aspartate aminotransferase (AST) 9 U/L Normal 0-45 [facility] Comment on above: Result Comment: This test result might be falsely depressed or falsely elevated onsamples drawn from patients taking Sulfasalazine and Sulfapyridine.Venipuncture should occur prior to taking either of these drugs. Performed By: #### C BCWOD, CMET, LIPID, HBA1C ####Unless otherwise noted, all testing performed by [address] [phone]: [id number] Director: David Mcclain M.D. Bilirubin (total) 0.2 mg/dL Low 0.3-1.2 [facility] Comment on above: Performed By: #### C BCWOD, CMET, LIPID, HBA1C ####Unless otherwise noted, all testing performed by [address] [phone]: [id number] Director: David Mcclain M.D. Calcium 8.9 mg/dL Normal 8.4-10.2 [facility] Comment on above: Performed By: #### C BCWOD, CMET, LIPID, HBA1C ####Unless otherwise noted, all testing performed by [address] [phone]: [id number] Director: David Mcclain M.D. Chloride 108 mmol/L Normal 98-108 [facility] Comment on above: Performed By: #### C BCWOD, CMET, LIPID, HBA1C ####Unless otherwise noted, all testing performed by [address] [phone]: [id number] Director: David Mcclain M.D. CO2 24 mmol/L Normal 21-32 [facility] Comment on above: Performed By: #### C BCWOD, CMET, LIPID, HBA1C ####Unless otherwise noted, all testing performed by [address] [phone]: [id number] Director: David Mcclain M.D. Creatinine 0.94 mg/dL Normal 0.40-1.10 [facility] Comment on above: Performed By: #### C BCWOD, CMET, LIPID, HBA1C ####Unless otherwise noted, all testing performed by [address] [phone]: [id number] Director: David Mcclain M.D. eGFR (black) mL/min/{1.73_m2} Normal [facility] Comment on above: Result Comment: Afri can Malagasy GFR Calc Performed By: #### C BCWOD, CMET, LIPID, HBA1C ####Unless otherwise noted, all testing performed by [address] [phone]: [id number] Director: David Mcclain M.D. eGFR (non-black) mL/min/{1.73_m2} Normal [facility] Comment on above: Result Comment: Non- GFR [...] ####Unless otherwise noted, all testing performed by [address] [phone]: [id number] Director: David Mcclain M.D. Glucose mass conc 122 mg/dL High 70-99 [facility] Comment on above: Result Comment: This test result might be falsely depressed or falsely elevated onsamples drawn from patients taking Sulfasalazine and Sulfapyridine.Venipuncture should occur prior to taking either of these drugs. Performed By: #### C BCWOD, CMET, LIPID, HBA1C ####Unless otherwise noted, all testing performed by [address] [phone]: [id number] Director: David Mcclain M.D. Potassium molar conc 3.9 mmol/L Normal 3.5-5.1 [facility] Comment on above: Performed By: #### C BCWOD, CMET, LIPID, HBA1C ####Unless otherwise noted, all testing performed by [address] [phone]: [id number] Director: David Mcclain M.D. Protein 6.2 g/dL Normal 6.0-8.0 [facility] Comment on above: Performed By: #### C BCWOD, CMET, LIPID, HBA1C ####Unless otherwise noted, all testing performed by [address] [phone]: [id number] Director: David Mcclain M.D. Sodium 143 mmol/L Normal 135-145 [facility] Comment on above: Performed By: #### C BCWOD, CMET, LIPID, HBA1C ####Unless otherwise noted, all testing performed by [address] [phone]: [id number] Director: David Mcclain M.D. Urea nitrogen 14 mg/dL Normal 8-25 [facility] Comment on above: Performed By: #### C BCWOD, CMET, LIPID, HBA1C ####Unless otherwise noted, all testing performed by [address] [phone]: [id number] Director: David Mcclain M.D. Hemoglobin A1Con 12-23-2017 Hemoglobin A1c/Hemoglobin.total mass fraction (Bld) 7.3 % High 4.1-6.5 [facility] Comment on above: Performed By: #### C BCWOD, CMET, LIPID, HBA1C ####Unless otherwise noted, all testing performed by [address] [phone]: [id number] Director: David Mcclain M.D. Lipid Panelon 12-23-2017 Cholesterol 113 mg/dL Normal 100-199 [facility] Comment on above: Performed By: #### C BCWOD, CMET, LIPID, HBA1C ####Unless otherwise noted, all testing performed by [address] [phone]: [id number] Director: David Mcclain M.D. Cholesterol in VLDL mass conc 29 mg/dL Normal 5-40 [facility] Comment on above: Performed By: #### C BCWOD, CMET, LIPID, HBA1C ####Unless otherwise noted, all testing performed by [address] [phone]: [id number] Director: David Mcclain M.D. Cholesterol to HDL Ratio 2.9 {ratio} Low 3.2-5.0 [facility] Comment on above: Result Comment: [place] Coronary Heart Disease Risk Factor (CHDRF):Average risk= 4.41/2 Average risk= 3.32 times Average risk= 7.1 Performed By: #### C BCWOD, CMET, LIPID, HBA1C ####Unless otherwise noted, all testing performed by [address] [phone]: [id number] Director: David Mcclain M.D. HDL Cholesterol 40 mg/dL Normal 40-59 [facility] Comment on above: Performed By: #### C BCWOD, CMET, LIPID, HBA1C ####Unless otherwise noted, all testing performed by [address] [phone]: [id number] Director: David Mcclain M.D. LDL Cholesterol 45 mg/dL Normal 10-150 [facility] Comment on above: Performed By: #### C BCWOD, CMET, LIPID, HBA1C ####Unless otherwise noted, all testing performed by [address] [phone]: [id number] Director: David Mcclain M.D. Triglyceride 143 mg/dL High 25-120 [facility] Comment on above: Performed By: #### C BCWOD, CMET, LIPID, HBA1C ####Unless otherwise noted, all testing performed by [address] [phone]: [id number] Director: David Mcclain M.D. TSHon 12-23-2017 Thyroid stimulating hormone (TSH) 5.67 uIU/mL High 0.320-5.000 [facility] Comment on above: Result Comment: Samp les from patients routinely receiving high dose biotin therapy(100-300 mg/day) may show falsely decreased results. Please correlateclinically. Performed By: #### C BCWOD, CMET, LIPID, HBA1C ####Unless otherwise noted, all testing performed by [address] [phone]: [id number] Director: David Mcclain M.D. Thyroxine (T4) free 1.0 ng/dL Normal 0.7-1.7 [facility] Comment on above: Result Comment: Samp les from patients routinely receiving high dose biotin therapy(100-300 mg/day) may show falsely increased results. Please correlateclinically. Performed By: #### C BCWOD, CMET, LIPID, HBA1C ####Unless otherwise noted, all testing performed by [address] [phone]: [id number] Director: David Mcclain M.D. Influenza A,B Rapid Molecula adolfo 07-26-2017 Influenza A Rapid Molecular Not Detected Normal Not Detected [facility] Comment on above: Performed By: #### C BCWOD, CMET, LIPID, HBA1C ####Unless otherwise noted, all testing performed by [address] [phone]: [id number] Director: David Mcclain M.D. Influenza B Rapid Molecular Not Detected Normal Not Detected [facility] Comment on above: Performed By: #### C BCWOD, CMET, LIPID, HBA1C ####Unless otherwise noted, all testing performed by [address]509CLIA: [id number] Director: David Mcclain M.D. CBC with Diffon 04-17-2017 Basophils Auto #/vol (Bld) 0.0 K/mcL Normal 0-0.2 [facility] Comment on above: Performed By: #### C BCDIF, MG, TSH, CMET, LIPID, VITB12, HBA1C ####Unless otherwise noted, all testing performed by [address]8509CLIA: [id number] Director: David Mcclain M.D. Basophils/100 WBC Auto (Bld) 0.4 % Normal [facility] Comment on above: Performed By: #### C BCDIF, MG, TSH, CMET, LIPID, VITB12, HBA1C ####Unless otherwise noted, all testing performed by [address] [phone]: [id number] Director: David Mcclain M.D. Eosinophils 0.1 K/mcL Normal 0-0.5 [facility] Comment on above: Performed By: #### C BCDIF, MG, TSH, CMET, LIPID, VITB12, HBA1C ####Unless otherwise noted, all testing performed by [address] [phone]: [id number] Director: David Mcclain M.D. Eosinophils/100 leukocytes 1.9 % Normal [facility] Comment on above: Performed By: #### C BCDIF, MG, TSH, CMET, LIPID, VITB12, HBA1C ####Unless otherwise noted, all testing performed by [address] [phone]: [id number] Director: David Mcclain M.D. Erythrocyte distribution width Auto Ratio (RBC) 14.8 % High 10.0-14.4 [facility] Comment on above: Performed By: #### C BCDIF, MG, TSH, CMET, LIPID, VITB12, HBA1C ####Unless otherwise noted, all testing performed by [address] [phone]: [id number] Director: David Mcclain M.D. Erythrocytes (RBC) 4.82 M/mcL Normal 3.7-5.0 [facility] Comment on above: Performed By: #### C BCDIF, MG, TSH, CMET, LIPID, VITB12, HBA1C ####Unless otherwise noted, all testing performed by [address] [phone]: [id number] Director: David Mcclain M.D. Hematocrit (HCT) 42.9 % Normal 34.4-44.8 [facility] Comment on above: Performed By: #### C BCDIF, MG, TSH, CMET, LIPID, VITB12, HBA1C ####Unless otherwise noted, all testing performed by [address] [phone]: [id number] Director: David Mcclain M.D. Hemoglobin mass conc (Bld) 14.0 g/dL Normal 11.6-15.4 [facility] Comment on above: Performed By: #### C BCDIF, MG, TSH, CMET, LIPID, VITB12, HBA1C ####Unless otherwise noted, all testing performed by [address] [phone]: [id number] Director: David Mcclain M.D. Lymphocytes 1.4 K/mcL Normal 1.0-3.7 [facility] Comment on above: Performed By: #### C BCDIF, MG, TSH, CMET, LIPID, VITB12, HBA1C ####Unless otherwise noted, all testing performed by [address] [phone]: [id number] Director: David Mcclain M.D. Lymphocytes/100 leukocytes 23.0 % Normal [facility] Comment on above: Performed By: #### C BCDIF, MG, TSH, CMET, LIPID, VITB12, HBA1C ####Unless otherwise noted, all testing performed by [address] [phone]: [id number] Director: David Mcclain M.D. MCH 29.0 pg Normal 27.9-33.9 [facility] Comment on above: Performed By: #### C BCDIF, MG, TSH, CMET, LIPID, VITB12, HBA1C ####Unless otherwise noted, all testing performed by [address] [phone]: [id number] Director: David Mcclain M.D. [facility] mass conc (RBC) 32.6 g/dL Low 33.1-35.1 [facility] Comment on above: Performed By: #### C BCDIF, MG, TSH, CMET, LIPID, VITB12, HBA1C ####Unless otherwise noted, all testing performed by [address] [phone]: [id number] Director: David Mcclain M.D. MCV 88.9 fL Normal 82.6-98.9 [facility] Comment on above: Performed By: #### C BCDIF, MG, TSH, CMET, LIPID, VITB12, HBA1C ####Unless otherwise noted, all testing performed by [address] [phone]: [id number] Director: David Mcclain M.D. Monocytes 0.4 K/mcL Normal 0.1-0.6 [facility] Comment on above: Performed By: #### C BCDIF, MG, TSH, CMET, LIPID, VITB12, HBA1C ####Unless otherwise noted, all testing performed by [address] [phone]: [id number] Director: David Mcclain M.D. Monocytes/100 leukocytes 6.6 % Normal [facility] Comment on above: Performed By: #### C BCDIF, MG, TSH, CMET, LIPID, VITB12, HBA1C ####Unless otherwise noted, all testing performed by [address] [phone]: [id number] Director: David Mcclain M.D. Neutrophils 4.2 K/mcL Normal 1.2-6.9 [facility] Comment on above: Performed By: #### C BCDIF, MG, TSH, CMET, LIPID, VITB12, HBA1C ####Unless otherwise noted, all testing performed by [address] [phone]: [id number] Director: David Mcclain M.D. Platelet mean volume (PMV) 8.4 fL Normal 7.0-10.6 [facility] Comment on above: Performed By: #### C BCDIF, MG, TSH, CMET, LIPID, VITB12, HBA1C ####Unless otherwise noted, all testing performed by [address] [phone]: [id number] Director: David Mcclain M.D. Platelets 275 K/mcL Normal 162-402 [facility] Comment on above: Performed By: #### C BCDIF, MG, TSH, CMET, LIPID, VITB12, HBA1C ####Unless otherwise noted, all testing performed by [address] [phone]: [id number] Director: David Mcclain M.D. Segmented Neut % 68.1 % Normal [facility] Comment on above: Performed By: #### C BCDIF, MG, TSH, CMET, LIPID, VITB12, HBA1C ####Unless otherwise noted, all testing performed by [address] [phone]: [id number] Director: David Mcclain M.D. WBC (Leukocytes) 6.1 K/mcL Normal 3.4-10.6 [facility] Comment on above: Performed By: #### C BCDIF, MG, TSH, CMET, LIPID, VITB12, HBA1C ####Unless otherwise noted, all testing performed by [address] [phone]: [id number] Director: David Mcclain M.D. [facility] 04-17-2017 Alanine aminotransferase (ALT) 27 U/L Normal 14-65 [facility] Comment on above: Result Comment: This test result might be falsely depressed or falsely elevated onsamples drawn from patients taking Sulfasalazine and Sulfapyridine.Venipuncture should occur prior to taking either of these drugs. Performed By: #### C BCDIF, MG, TSH, CMET, LIPID, VITB12, HBA1C ####Unless otherwise noted, all testing performed by [address] [phone]: [id number] Director: David Mcclain M.D. Albumin 3.7 g/dL Normal 3.2-5.2 [facility] Comment on above: Performed By: #### C BCDIF, MG, TSH, CMET, LIPID, VITB12, HBA1C ####Unless otherwise noted, all testing performed by [address] [phone]: [id number] Director: David Mcclain M.D. Alkaline phosphatase (ALP) 56 U/L Normal 40-150 [facility] Comment on above: Performed By: #### C BCDIF, MG, TSH, CMET, LIPID, VITB12, HBA1C ####Unless otherwise noted, all testing performed by [address] [phone]: [id number] Director: David Mcclain M.D. Aspartate aminotransferase (AST) 10 U/L Normal 0-45 [facility] Comment on above: Result Comment: This test result might be falsely depressed or falsely elevated onsamples drawn from patients taking Sulfasalazine and Sulfapyridine.Venipuncture should occur prior to taking either of these drugs. Performed By: #### C BCDIF, MG, TSH, CMET, LIPID, VITB12, HBA1C ####Unless otherwise noted, all testing performed by [place] [phone]: [id number] Director: David Mcclain M.D. Bilirubin (total) 0.6 mg/dL Normal 0.3-1.2 [facility] Comment on above: Performed By: #### C BCDIF, MG, TSH, CMET, LIPID, VITB12, HBA1C ####Unless otherwise noted, all testing performed by [address] [phone]: [id number] Director: David Mcclain M.D. Calcium 9.7 mg/dL Normal 8.4-10.2 [facility] Comment on above: Performed By: #### C BCDIF, MG, TSH, CMET, LIPID, VITB12, HBA1C ####Unless otherwise noted, all testing performed by [address] [phone]: [id number] Director: David Mcclain M.D. Chloride 104 mmol/L Normal 98-108 [facility] Comment on above: Performed By: #### C BCDIF, MG, TSH, CMET, LIPID, VITB12, HBA1C ####Unless otherwise noted, all testing performed by [address] [phone]: [id number] Director: David Mcclain M.D. CO2 23 mmol/L Normal 21-32 [facility] Comment on above: Performed By: #### C BCDIF, MG, TSH, CMET, LIPID, VITB12, HBA1C ####Unless otherwise noted, all testing performed by [address] [phone]: [id number] Director: David Mcclain M.D. Creatinine 0.94 mg/dL Normal 0.40-1.10 [facility] Comment on above: Performed By: #### C BCDIF, MG, TSH, CMET, LIPID, VITB12, HBA1C ####Unless otherwise noted, all testing performed by [address] [phone]: [id number] Director: David Mcclain M.D. eGFR (black) mL/min/{1.73_m2} Normal [facility] Comment on above: Result Comment: Afri can Malagasy GFR Calc Performed By: #### C BCDIF, MG, TSH, CMET, LIPID, VITB12, HBA1C ####Unless otherwise noted, all testing performed by [address] [phone]: [id number] Director: David Mcclain M.D. eGFR (non-black) mL/min/{1.73_m2} Normal [facility] Comment on above: Result Comment: Non- GFR [...] ####Unless otherwise noted, all testing performed by [address] [phone]: [id number] Director: David Mcclain M.D. Glucose mass conc 128 mg/dL High 70-99 [facility] Comment on above: Result Comment: This test result might be falsely depressed or falsely elevated onsamples drawn from patients taking Sulfasalazine and Sulfapyridine.Venipuncture should occur prior to taking either of these drugs. Performed By: #### C BCDIF, MG, TSH, CMET, LIPID, VITB12, HBA1C ####Unless otherwise noted, all testing performed by [address] [phone]: [id number] Director: David Mcclain M.D. Potassium molar conc 3.5 mmol/L Normal 3.5-5.1 [facility] Comment on above: Performed By: #### C BCDIF, MG, TSH, CMET, LIPID, VITB12, HBA1C ####Unless otherwise noted, all testing performed by [address] [phone]: [id number] Director: David Mcclain M.D. Protein 7.8 g/dL Normal 6.0-8.0 [facility] Comment on above: Performed By: #### C BCDIF, MG, TSH, CMET, LIPID, VITB12, HBA1C ####Unless otherwise noted, all testing performed by [address] [phone]: [id number] Director: David Mcclain M.D. Sodium 141 mmol/L Normal 135-145 [facility] Comment on above: Performed By: #### C BCDIF, MG, TSH, CMET, LIPID, VITB12, HBA1C ####Unless otherwise noted, all testing performed by [address] [phone]: [id number] Director: David Mcclain M.D. Urea nitrogen 15 mg/dL Normal 8-25 [facility] Comment on above: Performed By: #### C BCDIF, MG, TSH, CMET, LIPID, VITB12, HBA1C ####Unless otherwise noted, all testing performed by [address] [phone]: [id number] Director: David Mcclain M.D. Hemoglobin A1Con 04-17-2017 Hemoglobin A1c/Hemoglobin.total mass fraction (Bld) 5.7 % Normal 4.1-6.5 [facility] Comment on above: Performed By: #### C BCWOD, CMET, LIPID, HBA1C ####Unless otherwise noted, all testing performed by [address] [phone]: [id number] Director: David Mcclain M.D. Lipid Panelon 04-17-2017 Cholesterol 135 mg/dL Normal 100-199 [facility] Comment on above: Performed By: #### C BCDIF, MG, TSH, CMET, LIPID, VITB12, HBA1C ####Unless otherwise noted, all testing performed by [address] [phone]: [id number] Director: David Mcclain M.D. Cholesterol in VLDL mass conc 27 mg/dL Normal 5-40 [facility] Comment on above: Performed By: #### C BCDIF, MG, TSH, CMET, LIPID, VITB12, HBA1C ####Unless otherwise noted, all testing performed by [address] [phone]: [id number] Director: David Mcclain M.D. Cholesterol to HDL Ratio 2.6 {ratio} Low 3.2-5.0 [facility] Comment on above: Result Comment: [place] Coronary Heart Disease Risk Factor (CHDRF):Average risk= 4.41/2 Average risk= 3.32 times Average risk= 7.1 Performed By: #### C BCDIF, MG, TSH, CMET, LIPID, VITB12, HBA1C ####Unless otherwise noted, all testing performed by [address] [phone]: [id number] Director: David Mcclain M.D. HDL Cholesterol 52 mg/dL Normal 40-59 [facility] Comment on above: Performed By: #### C BCDIF, MG, TSH, CMET, LIPID, VITB12, HBA1C ####Unless otherwise noted, all testing performed by [address] [phone]: [id number] Director: David Mcclain M.D. LDL Cholesterol 56 mg/dL Normal 10-150 [facility] Comment on above: Performed By: #### C BCDIF, MG, TSH, CMET, LIPID, VITB12, HBA1C ####Unless otherwise noted, all testing performed by [address] [phone]: [id number] Director: David Mcclain M.D. Triglyceride 134 mg/dL High 25-120 [facility] Comment on above: Performed By: #### C BCDIF, MG, TSH, CMET, LIPID, VITB12, HBA1C ####Unless otherwise noted, all testing performed by [place] [phone]: [id number] Director: David Mcclain M.D. Magnesiumon 04-17-2017 Magnesium 2.4 mg/dL Normal 1.6-2.4 [facility] Comment on above: Performed By: #### C BCDIF, MG, TSH, CMET, LIPID, VITB12, HBA1C ####Unless otherwise noted, all testing performed by [place] [phone]: [id number] Director: David Mcclain M.D. TSHon 04-17-2017 Thyroid stimulating hormone (TSH) 2.87 uIU/mL Normal 0.320-5.000 [facility] Comment on above: Result Comment: Samp les from patients routinely receiving high dose biotin therapy(100-300 mg/day) may show falsely decreased results. Please correlateclinically. Performed By: #### C BCDIF, MG, TSH, CMET, LIPID, VITB12, HBA1C ####Unless otherwise noted, all testing performed by [address] [phone]: [id number] Director: David Mcclain M.D. Vitamin B12on 04-17-2017 Cobalamins (Vitamin B12) 557 pg/mL Normal 193-986 [facility] Comment on above: Performed By: #### C BCDIF, MG, TSH, CMET, LIPID, VITB12, HBA1C ####Unless otherwise noted, all testing performed by [address] [phone]: [id number] Director: David Mcclain M.D. CBCon 04-09-2017 Erythrocyte distribution width Auto Ratio (RBC) 14.1 % Normal 10.0-14.4 [facility] Comment on above: Performed By: #### C BCWOD, CMET, LIPID, HBA1C ####Unless otherwise noted, all testing performed by [address] [phone]: [id number] Director: David Mcclain M.D. Erythrocytes (RBC) 4.31 M/mcL Invalid Interpretation Code 3.7 - 5.0 [facility] Hematocrit (HCT) 38.1 % Normal 34.4-44.8 [facility] Comment on above: Performed By: #### C BCWOD, CMET, LIPID, HBA1C ####Unless otherwise noted, all testing performed by [address] [phone]: [id number] Director: David Mcclain M.D. Hemoglobin mass conc (Bld) 12.6 g/dL Normal 11.6-15.4 [facility] Comment on above: Performed By: #### C BCWOD, CMET, LIPID, HBA1C ####Unless otherwise noted, all testing performed by [address] [phone]: [id number] Director: David Mcclain M.D. MCH 29.3 pg Normal 27.9-33.9 [facility] Comment on above: Performed By: #### C BCWOD, CMET, LIPID, HBA1C ####Unless otherwise noted, all testing performed by [address] [phone]: [id number] Director: David Mcclain M.D. MCHC mass conc (RBC) 33.1 g/dL Normal 33.1-35.1 [facility] Comment on above: Performed By: #### C BCWOD, CMET, LIPID, HBA1C ####Unless otherwise noted, all testing performed by [address] [phone]: [id number] Director: David Mcclain M.D. MCV 88.4 fL Normal 82.6-98.9 [facility] Comment on above: Performed By: #### C BCWOD, CMET, LIPID, HBA1C ####Unless otherwise noted, all testing performed by [address] [phone]: [id number] Director: David Mcclain M.D. Platelet mean volume (PMV) 8.4 fL Normal 7.0-10.6 [facility] Comment on above: Performed By: #### C BCWOD, CMET, LIPID, HBA1C ####Unless otherwise noted, all testing performed by [address] [phone]: [id number] Director: David Mcclain M.D. Platelets 256 K/mcL Invalid Interpretation Code 162 - 402 [facility] WBC (Leukocytes) 4.2 K/mcL Invalid Interpretation Code 3.4 - 10.6 [facility] CBC w/o Diffon 04-09-2017 Erythrocytes (RBC) 4.31 M/mcL Normal 3.7-5.0 [facility] Comment on above: Performed By: #### C BCWOD, CMET, LIPID, HBA1C ####Unless otherwise noted, all testing performed by [address] [phone]: [id number] Director: David Mcclain M.D. Platelets 256 K/mcL Normal 162-402 [facility] Comment on above: Performed By: #### C BCWOD, CMET, LIPID, HBA1C ####Unless otherwise noted, all testing performed by [address] [phone]: [id number] Director: David Mcclain M.D. WBC (Leukocytes) 4.2 K/mcL Normal 3.4-10.6 [facility] Comment on above: Performed By: #### C BCWOD, CMET, LIPID, HBA1C ####Unless otherwise noted, all testing performed by [address] [phone]: [id number] Director: David Mcclain M.D. Comprehensive Metabolic Pane [facility] 04-09-2017 Alanine aminotransferase (ALT) 28 U/L Normal 14-65 [facility] Comment on above: Cancelled on LAS [...] ####Unless otherwise noted, all testing performed by [address], [place] [phone]: [id number] Director: David Mcclain M.D. Albumin 3.0 g/dL Low 3.2-5.2 [facility] Comment on above: Cancelled on LAS :De lete Result Comment: Canc elled on LAS :Delete Performed By: #### C BCWOD, CMET, LIPID, HBA1C ####Unless otherwise noted, all testing performed by [address], [place] [phone]: [id number] Director: David Mcclain M.D. Alkaline phosphatase (ALP) 41 U/L Normal 40-150 [facility] Comment on above: Cancelled on LAS :De lete Result Comment: Canc elled on LAS :Delete Performed By: #### C BCWOD, CMET, LIPID, HBA1C ####Unless otherwise noted, all testing performed by [address], [place] [phone]: [id number] Director: David Mcclain M.D. Aspartate aminotransferase (AST) 16 U/L Normal 0-45 [facility] Comment on above: Cancelled on LAS [...] ####Unless otherwise noted, all testing performed by [address], [place] [phone]: [id number] Director: David Mcclain M.D. Bilirubin (total) 0.4 mg/dL Normal 0.3-1.2 [facility] Comment on above: Cancelled on LAS :De lete Result Comment: Canc elled on LAS :Delete Performed By: #### C BCWOD, CMET, LIPID, HBA1C ####Unless otherwise noted, all testing performed by [address] [phone]: [id number] Director: David Mcclain M.D. Calcium 8.7 mg/dL Normal 8.4-10.2 [facility] Comment on above: Cancelled on LAS :De lete Result Comment: Canc elled on LAS :Delete Performed By: #### C BCWOD, CMET, LIPID, HBA1C ####Unless otherwise noted, all testing performed by [address] [id number]: [id number] Director: David Mcclain M.D. Chloride 106 mmol/L Normal 98-108 [facility] Comment on above: Cancelled on LAS :De lete Result Comment: Canc elled on LAS :Delete Performed By: #### C BCWOD, CMET, LIPID, HBA1C ####Unless otherwise noted, all testing performed by [address] [phone]: [id number] Director: David Mcclain M.D. CO2 26 mmol/L Normal 21-32 [facility] Comment on above: Cancelled on LAS :De lete Result Comment: Canc elled on LAS :Delete Performed By: #### C BCWOD, CMET, LIPID, HBA1C ####Unless otherwise noted, all testing performed by [address], [place] [phone]: [id number] Director: David Mcclain M.D. Creatinine 0.73 mg/dL Normal 0.40-1.10 [facility] Comment on above: Cancelled on LAS :De lete Result Comment: Canc elled on LAS :Delete Performed By: #### C BCWOD, CMET, LIPID, HBA1C ####Unless otherwise noted, all testing performed by [address] [phone]: [id number] Director: David Mcclain M.D. eGFR (black) mL/min/{1.73_m2} Normal [facility] Comment on above: GFR Calc Result Comment: Afri can Malagasy GFR Calc Performed By: #### C BCWOD, CMET, LIPID, HBA1C ####Unless otherwise noted, all testing performed by [address] [id number]: [id number] Director: David Mcclain M.D. eGFR (non-black) mL/min/{1.73_m2} Normal [facility] Comment on above: Non- GFR Calc [...] ####Unless otherwise noted, all testing performed by [address] [phone]: [id number] Director: David Mcclain M.D. Glucose mass conc 93 mg/dL Normal 70-99 [facility] Comment on above: Cancelled on LAS :De [...] ####Unless otherwise noted, all testing performed by [address], [place] [phone]: [id number] Director: David Mcclain M.D. Potassium molar conc 3.9 mmol/L Normal 3.5-5.1 [facility] Comment on above: Cancelled on LAS :De lete Result Comment: Canc elled on LAS :Delete Performed By: #### C BCWOD, CMET, LIPID, HBA1C ####Unless otherwise noted, all testing performed by [address], [place] [phone]: [id number] Director: David Mcclain M.D. Protein 6.4 g/dL Normal 6.0-8.0 [facility] Comment on above: Cancelled on LAS :De lete Result Comment: Canc elled on LAS :Delete Performed By: #### C BCWOD, CMET, LIPID, HBA1C ####Unless otherwise noted, all testing performed by [address] [phone]: [id number] Director: David Mcclain M.D. Sodium 140 mmol/L Normal 135-145 [facility] Comment on above: Cancelled on LAS :De lete Result Comment: Canc elled on LAS :Delete Performed By: #### C BCWOD, CMET, LIPID, HBA1C ####Unless otherwise noted, all testing performed by [address] [phone]: [id number] Director: David Mcclain M.D. Urea nitrogen 9 mg/dL Normal 8-25 [facility] Comment on above: Cancelled on LAS :De lete Result Comment: Canc elled on LAS :Delete Performed By: #### C BCWOD, CMET, LIPID, HBA1C ####Unless otherwise noted, all testing performed by [address] [phone]: [id number] Director: David Mcclain M.D. Hemoglobin A1con 04-09-2017 Hemoglobin A1c/Hemoglobin.total mass fraction (Bld) 5.6 % Normal 4.1-6.5 [facility] Comment on above: Performed By: #### C BCWOD, CMET, LIPID, HBA1C ####Unless otherwise noted, all testing performed by [address] [phone]: [id number] Director: David Mcclain M.D. Lipid Panelon 04-09-2017 Cholesterol 104 mg/dL Normal 100-199 [facility] Comment on above: Cancelled on LAS :De lete Result Comment: Canc elled on LAS :Delete Performed By: #### C BCWOD, CMET, LIPID, HBA1C ####Unless otherwise noted, all testing performed by [address] [phone]: [id number] Director: David Mcclain M.D. Cholesterol in VLDL mass conc 32 mg/dL Normal 5-40 [facility] Comment on above: Performed By: #### C BCWOD, CMET, LIPID, HBA1C ####Unless otherwise noted, all testing performed by [address] [phone]: [id number] Director: David Mcclain M.D. Cholesterol to HDL Ratio 2.5 {ratio} Low 3.2-5.0 [facility] Comment on above: Female Coronary Hear t Disease Risk Factor (CHDRF): Average risk= 4.4 1/2 Average risk= 3.3 2 times Average risk= 7.1 Result Comment: Fema le Coronary Heart Disease Risk Factor (CHDRF):Average risk= 4.41/2 Average risk= 3.32 times Average risk= 7.1 Performed By: #### C BCWOD, CMET, LIPID, HBA1C ####Unless otherwise noted, all testing performed by [address] [phone]: [id number] Director: David Mcclain M.D. HDL Cholesterol 41 mg/dL Normal 40-59 [facility] Comment on above: Cancelled on LAS :De lete Result Comment: Canc elled on LAS :Delete Performed By: #### C BCWOD, CMET, LIPID, HBA1C ####Unless otherwise noted, all testing performed by [address] [phone]: [id number] Director: David Mcclain M.D. Interpretation and review of laboratory results Abnormal Invalid Interpretation Code [facility] LDL Cholesterol 31 mg/dL Normal 10-150 [facility] Comment on above: Performed By: #### C BCWOD, CMET, LIPID, HBA1C ####Unless otherwise noted, all testing performed by [address] [phone]: [id number] Director: David Mcclain M.D. Triglyceride 159 mg/dL High 25-120 [facility] Comment on above: Cancelled on LAS :De lete Result Comment: Canc elled on LAS :Delete Performed By: #### C BCWOD, CMET, LIPID, HBA1C ####Unless otherwise noted, all testing performed by [address] [phone]: [id number] Director: David Mcclain M.D. Emergency Department Summary on 01-16-2017 [facility] [address] [place], [place] [address]Bpnhicaix Department Vjvidwq96/07/17 1708#: [id number] Acct: [id number]: SHAJI ESQUIVEL Rep #: [id number]: 1960 56 [...] weight loss. [facility] He is unsure [...] condition.Impression: 1. Dysphagia.This note was generated with [employer] dictation software. It may contain incorrect words,spelling, [...] your Primary Care Provider. Call [facility] ([phone])or report to the closest Emergency Room.Call 911 if necessary.01/16/17 0831 Date Alli Monae [facility] Signature (If Indicated): Date CC: Antwan Watters Normal [facility] Esophagus Onlyon 01-14-2017 Esophagus Only [facility] [id number] AJAY SAXENA [id number] OnlyMR#: [id number] Acct: [id number]: SHAJI ESQUIVEL Rep #: [id number]: 1960 F 56 From: Santo Mendieta MDPCP: Antwan Watters Status: REG CLIStudy: Esophagus Only Date of Exam: 01/14/17Exam# [id number] Ordering Dr: Alli Monae MDSTUDY: X-RAY - [...] structures of the thorax. ORDE R #: [id number] RAD/Esophagus OnlyIMPRESSION:Normal plain film x-ray examination (barium swallow) of the esophagus.Electronicall y Signed:Santo Mendieta MD at 15:33 EDTTel [phone], Service support , [place]: Antwan Watters; Alli Monae MD Dairy Farmworker:Signed Normal [facility] Basic Metabolic Profile (BMP )on 01-13-2017 BUN (urea nitrogen) 12.9 RATIO Normal 10-20 [facility] Comment on above: Performed By: #### L 500.2500 ####[facility] [address] [place], [address] Calcium 9.0 mg/dL Normal 8.5-10.1 [facility] Comment on above: Performed By: #### L 500.2500 ####[facility] [address] [place], [address] Chloride 101 mmol/L Normal 98-107 [facility] Comment on above: Performed By: #### L 500.2500 ####[facility] [address] [place], [address] CO2 31.0 mmol/L Normal 21.0-32.0 [facility] Comment on above: Performed By: #### L 500.2500 ####[facility] [address] [place], [address] Creatinine 0.70 mg/dL Normal 0.55-1.02 [facility] Comment on above: Result Comment: The validity of the calculated GFR AND GFRAA in patients over70 years has not been determined. Clinical correlation isessential. Performed By: #### L 500.2500 ####[facility] [address] [place], [address] eGFR (non-black) 111 mL/min/{1.73_m2} Normal >60 [facility] Comment on above: Result Comment: Afri can Malagasy GFR Calc Performed By: #### L 500.2500 ####[facility] [address] [place], [address] eGFR (non-black) 92 mL/min/{1.73_m2} Normal >60 [facility] Comment on above: Result Comment: Non- GFR Calc Performed By: #### L 500.2500 ####[facility] [address] [place], [address] Estimated CRCL 74.23 ml/min Normal [facility] Comment on above: Performed By: #### L 500.2500 ####[facility] [address] [place], [address] GAP 9 Normal 5-15 [facility] Comment on above: Performed By: #### L 500.2500 ####[facility] [address] [place], [address] Glucose mass conc 137 mg/dL High 70-110 [facility] Comment on above: Result Comment: Fast ing Glucose result greater than or equal to 126 mg/dLsuggests DIABETES MELLITUS per A.D.A. criteria. Performed By: #### L 500.2500 ####[facility] [address] [place], [address] Potassium molar conc 3.8 mmol/L Normal 3.5-5.1 [facility] Comment on above: Performed By: #### L 500.2500 ####[facility] [address] [place], [address] Sodium 141 mmol/L Normal 136-145 [facility] Comment on above: Performed By: #### L 500.2500 ####[facility] [address] [place], [address] Urea nitrogen 9 mg/dL Normal 7-18 [facility] Comment on above: Performed By: #### L 500.2500 ####[facility] [address] [place], [address] CBC W/Diff, Automatedon 08-0 -2016 Absolute Neut 3.8 X10 3/uL Normal 2.0-7.7 [facility] Comment on above: Performed By: #### L 100.0100 ####[facility] [address] [place], [address] Basophils/100 WBC Auto (Bld) 0.0 % Normal 0-1 [facility] Comment on above: Performed By: #### L 100.0100 ####[facility] [address] [place], [address] Eosinophils/100 leukocytes 0.7 % Normal 0-5 [facility] Comment on above: Performed By: #### L 100.0100 ####[facility] [address] [place], [address] Erythrocyte distribution width Auto Ratio (RBC) 13.5 % Normal 11.6-14.6 [facility] Comment on above: Performed By: #### L 100.0100 ####[facility] [address] [place], [address] Erythrocytes (RBC) 4.41 M/mm3 Normal 4.2-5.4 [facility] Comment on above: Performed By: #### L 100.0100 ####[facility] [address] [place], [address] Hematocrit (HCT) 40.1 % Normal 37-47 [facility] Comment on above: Performed By: #### L 100.0100 ####[facility] [address] [place], [address] Hemoglobin mass conc (Bld) 12.4 g/dL Normal 12.0-15.0 [facility] Comment on above: Performed By: #### L 100.0100 ####[facility] [address] [place], [address] IM GRAN % 0.200 % Normal 0.0-0.9 [facility] Comment on above: Result Comment: IG% - Immature Granulocytes (promyelocytes, myelocytes andmetamyelocytes) > 1% indicates that a LEFT SHIFT is Present. Performed By: #### L 100.0100 ####[facility] [address] [place], [address] Lymphocytes 1.55 X10 3/ul Normal 0.83-4.51 [facility] Comment on above: Performed By: #### L 100.0100 ####[facility] [address] [place], [address] Lymphocytes/100 leukocytes 26.3 % Normal 19-41 [facility] Comment on above: Performed By: #### L 100.0100 ####[facility] [address] [place], [address] MCH 28.1 pg Normal 27.0-32.0 [facility] Comment on above: Performed By: #### L 100.0100 ####[facility] [address] [place], [address] MCHC mass conc (RBC) 30.9 g/gl Low 32-36 [facility] Comment on above: Performed By: #### L 100.0100 ####[facility] [address] [place], [address] MCV 90.9 fL Normal 81-99 [facility] Comment on above: Performed By: #### L 100.0100 ####[facility] [address] [place], [address] Monocytes/100 leukocytes 7.6 % Normal 0-10 [facility] Comment on above: Performed By: #### L 100.0100 ####[facility] [address] [place], [address] Neutrophils/100 WBC Auto (Bld) 65.2 % Normal 47-70 [facility] Comment on above: Performed By: #### L 100.0100 ####[facility] [address] [place], [address] Platelet mean volume (PMV) 9.7 fL Normal 6.2-12.0 [facility] Comment on above: Performed By: #### L 100.0100 ####[facility] [address] [place], [address] Platelets 274 10*3/uL Normal 150-450 [facility] Comment on above: Performed By: #### L 100.0100 ####[facility] [address] [place], [address] RDW SD 44.5 fl High 35.1-43.9 [facility] Comment on above: Performed By: #### L 100.0100 ####[facility] [address] [place], [address] WBC (Leukocytes) 5.9 10*3/uL Normal 4.4-11.0 [facility] Comment on above: Performed By: #### L 100.0100 ####[facility] [address] [place], [address] Vital Signs Date Time Vital Sign Value Performing Clinician [facility] 11-11-2024 11:01-0400 Body height 160 cm Marcos Barrera MD Work Phone: [facility] 11-11-2024 11:01-0400 Diastolic blood pressure 83 mm[Hg] Marcos Barrera MD Work Phone: [facility] 11-11-2024 11:01-0400 Heart rate 99 /min Marcos Barrera MD Work Phone: [facility] 11-11-2024 11:01-0400 Systolic blood pressure 136 mm[Hg] Marcos Barrera MD Work Phone: [facility] 10-25-2024 11:07-0400 Diastolic blood pressure 82 mm[Hg] Elizabeth Achille DPM Work Phone: [facility] 10-25-2024 11:07-0400 Heart rate 73 /min Elizabeth Erendira DPM Work Phone: [facility] 10-25-2024 11:07-0400 Systolic blood pressure 134 mm[Hg] Elizabeth Erendira DPM Work Phone: [facility] 10-25-2024 11:01-0400 Body temperature 98.29 [degF] Elizabeth Kimble DPM Work Phone: [facility] 09-21-2024 10:37-0400 Body height 160 cm Zara Cristina DO Work Phone: [facility] 09-21-2024 10:37-0400 Body mass index (BMI) [Ratio] 29.35 kg/m2 Zara Cristina DO Work Phone: [facility] 09-21-2024 10:37-0400 Body temperature 98.01 [degF] Zara Cristina DO Work Phone: [facility] 09-21-2024 10:37-0400 Body weight 75.16 kg Zara Cristina DO Work Phone: [facility] 09-21-2024 10:37-0400 Diastolic blood pressure 85 mm[Hg] Zara Cristina DO Work Phone: [facility] 09-21-2024 10:37-0400 Heart rate 79 /min Zara Cristina DO Work Phone: [facility] 09-21-2024 10:37-0400 Respiratory rate 18 /min Zara Cristina DO Work Phone: [facility] 09-21-2024 10:37-0400 SaO2% (BldA) [Mass fraction] 92 % Zara Cristina DO Work Phone: [facility] 09-21-2024 10:37-0400 Systolic blood pressure 132 mm[Hg] Zara Cristina DO Work Phone: [facility] 09-09-2024 14:10-0400 Body height 160 cm Marcos Barrera MD Work Phone: [facility] 09-09-2024 14:10-0400 Body mass index (BMI) [Ratio] 28.87 kg/m2 Marcos Barrera MD Work Phone: [facility] 09-09-2024 14:10-0400 Body weight 73.94 kg Marcos Barrera MD Work Phone: [facility] 09-09-2024 14:10-0400 Diastolic blood pressure 71 mm[Hg] Marcos Barrera MD Work Phone: [facility] 09-09-2024 14:10-0400 Heart rate 60 /min Marcos Barrera MD Work Phone: [facility] 09-09-2024 14:10-0400 Systolic blood pressure 105 mm[Hg] Marcos Barrera MD Work Phone: [facility] 07-29-2024 11:30-0500 Body height 160 cm Zara Cristina DO Work Phone: [facility] 07-29-2024 11:30-0500 Body mass index (BMI) [Ratio] 28.34 kg/m2 Zara Cristina DO Work Phone: [facility] 07-29-2024 11:30-0500 Body temperature 98.29 [degF] Zara Cristina DO Work Phone: [facility] 07-29-2024 11:30-0500 Body weight 72.58 kg Zara Cristina DO Work Phone: [facility] 07-29-2024 11:30-0500 Diastolic blood pressure 76 mm[Hg] Zara Cristina DO Work Phone: [facility] 07-29-2024 11:30-0500 Heart rate 83 /min Zara Cristina DO Work Phone: [facility] 07-29-2024 11:30-0500 Respiratory rate 17 /min Zara Cristina DO Work Phone: [facility] 07-29-2024 11:30-0500 SaO2% (BldA) [Mass fraction] 94 % Zara Cristina DO Work Phone: [facility] 07-29-2024 11:30-0500 Systolic blood pressure 135 mm[Hg] Zara Cristina DO Work Phone: [facility] 07-27-2024 09:57-0500 Body temperature 98.4 [degF] Elizabethamy Kimble DPM Work Phone: [facility] 07-27-2024 09:57-0500 Diastolic blood pressure 78 mm[Hg] Elizabeth Achille DPM Work Phone: [facility] 07-27-2024 09:57-0500 Heart rate 86 /min Elizabeth Erendira DPM Work Phone: [facility] 07-27-2024 09:57-0500 Systolic blood pressure 133 mm[Hg] Elizabeth Erendira DPM Work Phone: [facility] 07-13-2024 09:53-0500 Diastolic blood pressure 83 mm[Hg] Zara Cristina DO Work Phone: [facility] 07-13-2024 09:53-0500 Systolic blood pressure 136 mm[Hg] Zraa Cristina DO Work Phone: [facility] 07-13-2024 09:17-0500 Body height 160 cm Zara Cristina DO Work Phone: [facility] 07-13-2024 09:17-0500 Body mass index (BMI) [Ratio] 28.34 kg/m2 Zara Cristina DO Work Phone: [facility] 07-13-2024 09:17-0500 Body temperature 98.1 [degF] Zara Cristina DO Work Phone: [facility] 07-13-2024 09:17-0500 Body weight 72.58 kg Zara Cristina DO Work Phone: [facility] 07-13-2024 09:17-0500 Heart rate 81 /min Zara Cristina DO Work Phone: [facility] 07-13-2024 09:17-0500 Respiratory rate 17 /min Zara Cristina DO Work Phone: [facility] 07-13-2024 09:17-0500 SaO2% (BldA) [Mass fraction] 90 % Zara Cristina DO Work Phone: [facility] 07-09-2024 12:08-0500 Diastolic blood pressure 86 mm[Hg] Miles Ying DO Work Phone: [facility] 07-09-2024 12:08-0500 Heart rate 84 /min Miles Mcnairune DO Work Phone: [facility] 07-09-2024 12:08-0500 Respiratory rate 17 /min Miles Mcnairune DO Work Phone: [facility] 07-09-2024 12:08-0500 SaO2% (BldA) [Mass fraction] 97 % Miles Mcnairune DO Work Phone: [facility] 07-09-2024 12:08-0500 Systolic blood pressure 156 mm[Hg] Miles Ying DO Work Phone: [facility] 07-09-2024 11:00-0500 Body temperature 98.49 [degF] Miles Mcnairune DO Work Phone: [facility] 06-28-2024 12:46-0500 Body height 167.6 cm Rafa Oberhauser DO Work Phone: [facility] 06-28-2024 12:46-0500 Body mass index (BMI) [Ratio] 25.82 kg/m2 Rafa Oberhauser DO Work Phone: [facility] 06-28-2024 12:46-0500 Body weight 72.58 kg Rafa Oberhauser DO Work Phone: [facility] 06-28-2024 12:46-0500 Diastolic blood pressure 71 mm[Hg] Rafa Oberhauser DO Work Phone: [facility] 06-28-2024 12:46-0500 Heart rate 93 /min Rafa Oberhauser DO Work Phone: [facility] 06-28-2024 12:46-0500 Systolic blood pressure 129 mm[Hg] Rafa Oberhauser DO Work Phone: [facility] 06-23-2024 14:00-0500 Diastolic blood pressure 83 mm[Hg] Zara Cristina DO Work Phone: [facility] 06-23-2024 14:00-0500 Systolic blood pressure 134 mm[Hg] Zara Cristina DO Work Phone: [facility] 06-23-2024 13:02-0500 Body height 160 cm Zara Cristina DO Work Phone: [facility] 06-23-2024 13:02-0500 Body mass index (BMI) [Ratio] 28.34 kg/m2 Zara Cristina DO Work Phone: [facility] 06-23-2024 13:02-0500 Body temperature 98.6 [degF] Zara Cristina DO Work Phone: [facility] 06-23-2024 13:02-0500 Body weight 72.58 kg Zara Cristina DO Work Phone: [facility] 06-23-2024 13:02-0500 Heart rate 92 /min Zara Cristina DO Work Phone: [facility] 06-23-2024 13:02-0500 Respiratory rate 16 /min Zara Cristina DO Work Phone: [facility] 06-23-2024 13:02-0500 SaO2% (BldA) [Mass fraction] 91 % Zara Cristina DO Work Phone: [facility] 04-27-2024 10:09-0500 Body temperature 98.2 [degF] Elizabeth Erendira DPM Work Phone: [facility] 04-27-2024 10:09-0500 Diastolic blood pressure 85 mm[Hg] Elizabeth Achille DPM Work Phone: [facility] 04-27-2024 10:09-0500 Heart rate 86 /min Elizabeth Erendira DPM Work Phone: [facility] 04-27-2024 10:09-0500 Systolic blood pressure 130 mm[Hg] Elizabeth Achille DPM Work Phone: [facility] 03-29-2024 12:42-0400 Body height 167.6 cm Rafa Oberhauser DO Work Phone: [facility] 03-29-2024 12:42-0400 Diastolic blood pressure 80 mm[Hg] Rafa Oberhauser DO Work Phone: [facility] 03-29-2024 12:42-0400 Heart rate 89 /min Rafa Oberhauser DO Work Phone: [facility] 03-29-2024 12:42-0400 Systolic blood pressure 128 mm[Hg] Rafa Oberhauser DO Work Phone: [facility] 02-05-2024 10:28-0400 Body height 167.6 cm Tracy Babak OSTEOLOGY TEACHER-CLERK GENERAL OFFICE Work Phone: [facility] 02-05-2024 10:28-0400 Body mass index (BMI) [Ratio] 25.82 kg/m2 Tracy Babak OSTEOLOGY TEACHER-CLERK GENERAL OFFICE Work Phone: [phone] [place] [address] 02-05-2024 10:28-0400 Body weight 72.58 kg Tracy Babak OSTEOLOGY TEACHER-CLERK GENERAL OFFICE Work Phone: [phone] [place] [address] 02-05-2024 10:28-0400 Diastolic blood pressure 85 mm[Hg] Tracy Babak OSTEOLOGY TEACHER-CLERK GENERAL OFFICE Work Phone: [facility] 02-05-2024 10:28-0400 Heart rate 83 /min Tracy Babak OSTEOLOGY TEACHER-CLERK GENERAL OFFICE Work Phone: [facility] 02-05-2024 10:28-0400 Systolic blood pressure 137 mm[Hg] Tracy Babak OSTEOLOGY TEACHER-CLERK GENERAL OFFICE Work Phone: [facility] 02-03-2024 10:46-0400 Body height 165.1 cm Sachin Morales MD Work Phone: [facility] 02-03-2024 10:46-0400 Body mass index (BMI) [Ratio] 25.63 kg/m2 Sachin Morales MD Work Phone: [facility] 02-03-2024 10:46-0400 Body weight 69.85 kg Sachin Morales MD Work Phone: [facility] 01-29-2024 09:55-0400 Diastolic blood pressure 67 mm[Hg] Darin Trujillo MD Work Phone: [facility] 01-29-2024 09:55-0400 Heart rate 83 /min Darin Trujillo MD Work Phone: [facility] 01-29-2024 09:55-0400 Respiratory rate 18 /min Darin Trujillo MD Work Phone: [facility] 01-29-2024 09:55-0400 SaO2% (BldA) [Mass fraction] 96 % Darin Trujillo MD Work Phone: [facility] 01-29-2024 09:55-0400 Systolic blood pressure 123 mm[Hg] Darin Trujillo MD Work Phone: [facility] 01-29-2024 06:56-0400 Body height 167.6 cm Darin Trujillo MD Work Phone: [facility] 01-29-2024 06:56-0400 Body mass index (BMI) [Ratio] 24.61 kg/m2 Darin Trujillo MD Work Phone: [facility] 01-29-2024 06:56-0400 Body temperature 97 [degF] Darin Trujillo MD Work Phone: [facility] 01-29-2024 06:56-0400 Body weight 69.17 kg Darin Trujillo MD Work Phone: [facility] 01-26-2024 14:02-0400 Diastolic blood pressure 83 mm[Hg] Elizabeth Erendira DPM Work Phone: [facility] 01-26-2024 14:02-0400 Heart rate 92 /min Elizabeth Achille DPM Work Phone: [facility] 01-26-2024 14:02-0400 Systolic blood pressure 144 mm[Hg] Elizabeth Erendira DPM Work Phone: [facility] 01-26-2024 13:49-0400 Body temperature 98.4 [degF] Elizabeth Erendira DPM Work Phone: [facility] 01-21-2024 10:36-0400 Diastolic blood pressure 77 mm[Hg] Huy Vasquez PA-C Work Phone: [facility] 01-21-2024 10:36-0400 Heart rate 95 /min Huy Vasquez PA-C Work Phone: [facility] 01-21-2024 10:36-0400 SaO2% (BldA) [Mass fraction] 96 % Huy Vasquez PA-C Work Phone: [facility] 01-21-2024 10:36-0400 Systolic blood pressure 159 mm[Hg] Huy Vasquez PA-C Work Phone: [facility] 01-08-2024 09:26-0400 Diastolic blood pressure 85 mm[Hg] Mina Ortiz MD Work Phone: [facility] 01-08-2024 09:26-0400 Heart rate 100 /min Mina Ortiz MD Work Phone: [facility] 01-08-2024 09:26-0400 Respiratory rate 16 /min Mina Ortiz MD Work Phone: [facility] 01-08-2024 09:26-0400 SaO2% (BldA) [Mass fraction] 92 % Mina Ortiz MD Work Phone: [facility] 01-08-2024 09:26-0400 Systolic blood pressure 147 mm[Hg] Mina Ortiz MD Work Phone: [facility] 12-29-2023 16:43-0400 Body height 157.5 cm Rafa Jacinto DO Work Phone: [facility] 12-29-2023 16:43-0400 Body mass index (BMI) [Ratio] 28.53 kg/m2 Rafa Vicker DO Work Phone: [facility] 12-29-2023 16:43-0400 Body weight 70.76 kg Rafa Oberhauser DO Work Phone: [facility] 12-29-2023 16:43-0400 Diastolic blood pressure 82 mm[Hg] Rafa Oberhauser DO Work Phone: [facility] 12-29-2023 16:43-0400 Heart rate 101 /min Rafa Oberhauser DO Work Phone: [facility] 12-29-2023 16:43-0400 Systolic blood pressure 139 mm[Hg] Rafa Oberhauser DO Work Phone: [facility] 12-24-2023 09:35-0400 Body height 165.1 cm Sachin Morales MD Work Phone: [facility] 12-17-2023 08:04-0400 Body height 157.5 cm Tracy Babak OSTEOLOGY TEACHER-CLERK GENERAL OFFICE Work Phone: [facility] 12-17-2023 08:04-0400 Body mass index (BMI) [Ratio] 28.17 kg/m2 Tracy Babak OSTEOLOGY TEACHER-CLERK GENERAL OFFICE Work Phone: [facility] 12-17-2023 08:04-0400 Body weight 69.85 kg Tracy Babak OSTEOLOGY TEACHER-CLERK GENERAL OFFICE Work Phone: [facility] 12-17-2023 08:04-0400 Diastolic blood pressure 78 mm[Hg] Tracy Babak OSTEOLOGY TEACHER-CLERK GENERAL OFFICE Work Phone: [facility] 12-17-2023 08:04-0400 Heart rate 72 /min Tracy Babak OSTEOLOGY TEACHER-CLERK GENERAL OFFICE Work Phone: [facility] 12-17-2023 08:04-0400 Systolic blood pressure 144 mm[Hg] Tracy Babak OSTEOLOGY TEACHER-CLERK GENERAL OFFICE Work Phone: [facility] 12-16-2023 13:56-0400 Body height 165.1 cm Priscilla Mackey CLERK GENERAL OFFICE Work Phone: [facility] 12-16-2023 13:56-0400 Body mass index (BMI) [Ratio] 25.63 kg/m2 Priscilla Mackey CLERK GENERAL OFFICE Work Phone: [facility] 12-16-2023 13:56-0400 Body weight 69.85 kg Priscilla Mackey CLERK GENERAL OFFICE Work Phone: [facility] 12-16-2023 13:56-0400 Diastolic blood pressure 81 mm[Hg] Priscilla Mackey CLERK GENERAL OFFICE Work Phone: [facility] 12-16-2023 13:56-0400 Heart rate 90 /min Priscilla Mackey CLERK GENERAL OFFICE Work Phone: [facility] 12-16-2023 13:56-0400 SaO2% (BldA) [Mass fraction] 96 % Priscilla Mackey CLERK GENERAL OFFICE Work Phone: [facility] 12-16-2023 13:56-0400 Systolic blood pressure 135 mm[Hg] Priscilla Mackey CLERK GENERAL OFFICE Work Phone: [facility] 12-04-2023 11:46-0400 Diastolic blood pressure 63 mm[Hg] aJsmyn Luisersen DO Work Phone: [facility] 12-04-2023 11:46-0400 Heart rate 97 /min Jasmyn Wade DO Work Phone: [facility] 12-04-2023 11:46-0400 Respiratory rate 16 /min Jasmyn Wade DO Work Phone: [facility] 12-04-2023 11:46-0400 SaO2% (BldA) [Mass fraction] 96 % Jasmyn Wade DO Work Phone: [facility] 12-04-2023 11:46-0400 Systolic blood pressure 177 mm[Hg] Jasmyn Luisersen DO Work Phone: [facility] 12-04-2023 11:15-0400 Body temperature 96.8 [degF] Jasmyn Wade DO Work Phone: [facility] 12-04-2023 09:04-0400 Body height 157.5 cm Jasmyn Wade DO Work Phone: [facility] 12-04-2023 09:04-0400 Body mass index (BMI) [Ratio] 25.97 kg/m2 Jasmyn Wade DO Work Phone: [facility] 12-04-2023 09:04-0400 Body weight 64.41 kg Jasmyn Wade DO Work Phone: [facility] 10-14-2023 08:15-0400 Body temperature 97 [degF] Elizabeth Erendira DPM Work Phone: [facility] 10-14-2023 08:15-0400 Diastolic blood pressure 83 mm[Hg] Elizabeth Achille DPM Work Phone: [facility] 10-14-2023 08:15-0400 Heart rate 96 /min Elizabeth Achille DPM Work Phone: [facility] 10-14-2023 08:15-0400 Systolic blood pressure 159 mm[Hg] Elizabeth Achille DPM Work Phone: [facility] 07-15-2023 08:42-0500 Body temperature 97.9 [degF] Elizabeth Achille DPM Work Phone: [facility] 07-15-2023 08:42-0500 Diastolic blood pressure 80 mm[Hg] Elizabeth Achille DPM Work Phone: [facility] 07-15-2023 08:42-0500 Heart rate 89 /min Elizabeth Erendira DPM Work Phone: [facility] 07-15-2023 08:42-0500 Systolic blood pressure 136 mm[Hg] Elizabeth Erendira DPM Work Phone: [facility] 06-23-2023 10:52-0500 Diastolic blood pressure 88 mm[Hg] Mina Ortiz MD Work Phone: [facility] 06-23-2023 10:52-0500 Heart rate 83 /min Mina Ortiz MD Work Phone: [facility] 06-23-2023 10:52-0500 SaO2% (BldA) [Mass fraction] 97 % Mina Ortiz MD Work Phone: [facility] 06-23-2023 10:52-0500 Systolic blood pressure 122 mm[Hg] Mina Ortiz MD Work Phone: [facility] 04-21-2023 13:09-0500 Body height 157.5 cm Rafa Oberhauser DO Work Phone: [facility] 04-21-2023 13:09-0500 Body mass index (BMI) [Ratio] 24.14 kg/m2 Rafa Oberhauser DO Work Phone: [facility] 04-21-2023 13:09-0500 Body weight 59.88 kg Rafa Oberhauser DO Work Phone: [facility] 04-21-2023 13:09-0500 Diastolic blood pressure 78 mm[Hg] Rafa Oberhauser DO Work Phone: [facility] 04-21-2023 13:09-0500 Heart rate 95 /min Rafa Oberhauser DO Work Phone: [facility] 04-21-2023 13:09-0500 Systolic blood pressure 127 mm[Hg] Rafa Oberhauser DO Work Phone: [facility] 12-19-2022 11:38-0400 Diastolic blood pressure 76 mm[Hg] Mina Ortiz MD Work Phone: [facility] 12-19-2022 11:38-0400 Heart rate 79 /min Mina Ortiz MD Work Phone: [facility] 12-19-2022 11:38-0400 SaO2% (BldA) [Mass fraction] 91 % Mina Ortiz MD Work Phone: [facility] 07-13-2023 11:38-0400 Systolic blood pressure 117 mm[Hg] Mina Ortiz MD Work Phone: [facility] 10-08-2022 02:02-0400 Diastolic blood pressure 37 mm[Hg] Antwan Maharaj Other Phone: [facility] 10-08-2022 02:02-0400 Heart rate 86 /min Antwan Maharaj Other Phone: [facility] 10-08-2022 02:02-0400 Respiratory rate 16 /min Antwan Maharaj Other Phone: [facility] 10-08-2022 02:02-0400 SaO2% (BldA) [Mass fraction] 94 % Antwan Maharaj Other Phone: [facility] 10-08-2022 02:02-0400 Systolic blood pressure 91 mm[Hg] Antwan Maharaj Other Phone: [facility] 08-18-2022 16:48-0400 Diastolic blood pressure 76 mm[Hg] Antwan Maharaj Other Phone: [facility] 08-18-2022 16:48-0400 Heart rate 84 /min Antwan Maharaj Other Phone: [facility] 08-18-2022 16:48-0400 Respiratory rate 18 /min Antwan Maharaj Other Phone: [facility] 08-18-2022 16:48-0400 SaO2% (BldA) [Mass fraction] 95 % Antwan Maharaj Other Phone: [facility] 08-18-2022 16:48-0400 Systolic blood pressure 164 mm[Hg] Antwan Maharaj Other Phone: [facility] 08-18-2022 14:37-0400 Body temperature 98.06 [degF] Antwan Maharaj Other Phone: [facility] 08-18-2022 14:37-0400 Body weight 60.5 kg Antwan Harrietcory Other Phone: [facility] 08-09-2022 13:35-0500 Diastolic blood pressure 71 mm[Hg] Antwan Gusdomo Other Phone: [facility] 08-09-2022 13:35-0500 Heart rate 74 /min Antwan Gusdomo Other Phone: [facility] 08-09-2022 13:35-0500 Respiratory rate 18 /min Antwan Harrietcory Other Phone: [facility] 08-09-2022 13:35-0500 SaO2% (BldA) [Mass fraction] 97 % Antwan Harrietcory Other Phone: [facility] 08-09-2022 13:35-0500 Systolic blood pressure 132 mm[Hg] Antwan Gusdomo Other Phone: [facility] 08-09-2022 11:23-0500 Body height 157.4 cm Antwan Harrietcory Other Phone: [facility] 08-09-2022 11:23-0500 Body temperature 98.06 [degF] Antwan Gusdomo Other Phone: [facility] 08-09-2022 11:23-0500 Body weight 60 kg Antwan Gusdomo Other Phone: [facility] 08-01-2022 10:27-0500 Body height 162.6 cm Mina Ortiz MD Work Phone: [facility] 08-01-2022 10:27-0500 Body mass index (BMI) [Ratio] 22.83 kg/m2 Mina Ortiz MD Work Phone: [facility] 08-01-2022 10:27-0500 Body weight 60.33 kg Mina Ortiz MD Work Phone: [facility] 08-01-2022 10:27-0500 Diastolic blood pressure 75 mm[Hg] Mina Ortiz MD Work Phone: [facility] 08-01-2022 10:27-0500 Heart rate 80 /min Mina Ortiz MD Work Phone: [facility] 08-01-2022 10:27-0500 Respiratory rate 16 /min Mina Ortiz MD Work Phone: [facility] 08-01-2022 10:27-0500 SaO2% (BldA) [Mass fraction] 95 % Mina Ortiz MD Work Phone: [facility] 08-01-2022 10:27-0500 Systolic blood pressure 113 mm[Hg] Mina Ortiz MD Work Phone: [facility] 04-27-2019 13:37-0500 BMI (Body Mass Index) 19.4 kg/m2 Ti Rhodes [facility] 04-27-2019 13:37-0500 Body weight 51.26 kg Tijackie Rhodes [facility] 04-27-2019 13:37-0500 Height 162.6 cm Tijackie Rhodes [facility] Encounters Encounter Date Encounter Type Care Provider Facility Start: 12-06-2024 End: 12-07-2024 Refill Zara Evans DO Work Phone: [facility] Start: 11-17-2024 ambulatory ZARA EVANS [facility] Start: 11-11-2024 End: 11-11-2024 Office outpatient visit 15 minutes Marcos Barrera MD Work Phone: [facility] Comment on above: Gastroesophageal ref lux disease, unspecified whether esophagitis present (Primary Dx) Start: 11-11-2024 End: 11-11-2024 ambulatory MARCOS BARRERA [facility] Ambulatory Start: 10-25-2024 End: 10-25-2024 Patient encounter procedure Elizabeth Kimble DPM Work Phone: [facility] Comment on above: Onychomycosis (Prima ry Dx); Onychodystrophy; Diabetic peripheral neuropathy (HCC); Pain due to onychomycosis of toenail of right foot Start: 10-25-2024 End: 10-25-2024 ambulatory ELIZAEBTH KIMBLE [facility] Start: 10-12-2024 End: 10-12-2024 Chart abstracting Zara Evans DO Work Phone: [facility] Start: 10-10-2024 End: 12-10-2024 Follow-up encounter Zara Evans DO Work Phone: [facility] Comment on above: MTB SCREEN Start: 09-30-2024 End: 09-30-2024 Orders Only Oren Araujo MD Work Phone: [facility] Comment on above: Type 2 diabetes susi itus without complication, without long- term current use of insulin (HCC) (Primary Dx) Start: 09-23-2024 End: 09-23-2024 Orders Only Zara Evans DO Work Phone: [facility] Comment on above: At risk for tubercul osis (Primary Dx) Start: 09-21-2024 End: 09-21-2024 Office outpatient visit 25 minutes Zara Evans DO Work Phone: [facility] Comment on above: Type 2 diabetes susi itus without complication, without long- term current use of insulin (HCC) (Primary Dx); Recurrent falls; Abnormal CT of the abdomen Start: 09-21-2024 End: 09-21-2024 ambulatory ZARA EVANS [facility] Start: 09-16-2024 End: 09-16-2024 Orders Only Zara Evans DO Work Phone: [facility] Start: 09-15-2024 End: 09-16-2024 Refill Zara Evans DO Work Phone: [facility] Start: 09-09-2024 End: 09-09-2024 Office outpatient new 30 minutes Zara Evans DO Work Phone: [facility] Comment on above: Abnormal CT of the a bdomen Start: 09-09-2024 End: 09-09-2024 ambulatory ZARA EVANS [facility] Start: 09-08-2024 End: 09-12-2024 ambulatory Shelley Anuradha Movens PA-C Work Phone: [facility] Comment on above: Parkinson's disease, unspecified whether dyskinesia present, unspecified whether manifestations fluctuate (HCC) (Primary Dx); Primary osteoarthritis involving multiple joints; Frequent falls Start: 09-06-2024 End: 09-06-2024 Documentation procedure Zara Evans DO Work Phone: [facility] Comment on above: [facility] Start: 09-06-2024 End: 09-10-2024 ambulatory Shelley Anuradha Movens PA-C Work Phone: [facility] Comment on above: Parkinson's disease, unspecified whether dyskinesia present, unspecified whether manifestations fluctuate (HCC) (Primary Dx); Primary osteoarthritis involving multiple joints; Frequent falls Start: 09-02-2024 End: 09-06-2024 ambulatory Shelley Anuradha Movens PA-C Work Phone: [facility] Comment on above: Parkinson's disease, unspecified whether dyskinesia present, unspecified whether manifestations fluctuate (HCC) (Primary Dx); Primary osteoarthritis involving multiple joints; Frequent falls Start: 09-02-2024 ambulatory ZARA EVANS [facility] Ambulatory Start: 2024 End: 09-03-2024 ambulatory Shelley Anuradha Movens PA-C Work Phone: [facility] Comment on above: Parkinson's disease, unspecified whether dyskinesia present, unspecified whether manifestations fluctuate (HCC) (Primary Dx); Primary osteoarthritis involving multiple joints; Frequent falls Start: 08-27-2024 End: 08-31-2024 ambulatory Shelley Anuradha Movens PA-C Work Phone: [facility] Comment on above: Parkinson's disease, unspecified whether dyskinesia present, unspecified whether manifestations fluctuate (HCC) (Primary Dx); Primary osteoarthritis involving multiple joints; Frequent falls Start: 08-26-2024 End: 2024 ambulatory Shelley Maldonado PA-C Work Phone: [facility] Comment on above: Parkinson's disease, unspecified whether dyskinesia present, unspecified whether manifestations fluctuate (HCC) (Primary Dx); Primary osteoarthritis involving multiple joints; Frequent falls Start: 08-19-2024 End: 08-23-2024 ambulatory Shelley Maldonado PA-C Work Phone: [facility] Comment on above: Parkinson's disease, unspecified whether dyskinesia present, unspecified whether manifestations fluctuate (HCC) (Primary Dx); Primary osteoarthritis involving multiple joints; Frequent falls Constipation, unspec ified constipation type (Primary Dx); Frequent falls Start: 08-13-2024 End: 08-13-2024 Documentation procedure [facility] Comment on above: Occupational Therapy ; Neuro Start: 08-13-2024 ambulatory [facility] Start: 08-05-2024 ambulatory ZARA EVANS [facility] Start: 08-03-2024 End: 08-03-2024 Transcribe Orders Shelley Maldonado PA-C Work Phone: [facility] Comment on above: Closed fracture of s ternum with routine healing, unspecified portion of sternum, subsequent encounter (Primary Dx); Multiple falls; Parkinson's disease, unspecified whether dyskinesia present, unspecified whether manifestations fluctuate (HCC); Primary osteoarthritis involving multiple joints Start: 08-02-2024 End: 08-06-2024 ambulatory Shelley Maldonado PA-C Work Phone: [facility] Comment on above: Parkinson's disease, unspecified whether dyskinesia present, unspecified whether manifestations fluctuate (HCC) (Primary Dx); Primary osteoarthritis involving multiple joints; Frequent falls; Multiple falls Start: 07-29-2024 End: 07-29-2024 Office outpatient visit 15 minutes Zara Evans DO Work Phone: [facility] Comment on above: Recurrent falls (Teresa jayesh Dx) Start: 07-29-2024 End: 07-29-2024 ambulatory ZARA EVANS [facility] Start: 07-27-2024 End: 07-27-2024 Patient encounter procedure Elizabeth Kimble DPM Work Phone: [facility] Comment on above: Onychomycosis (Prima ry Dx); Onychodystrophy; Diabetic peripheral neuropathy (HCC); Pain due to onychomycosis of toenail of right foot Start: 07-27-2024 End: 07-27-2024 ambulatory ZARA EVANS [facility] Start: 07-26-2024 End: 07-26-2024 Orders Only Zara Marlon Evans DO Work Phone: [facility] Comment on above: Abnormal CT of the a bdomen (Primary Dx) Start: 07-26-2024 ambulatory ZARA EVANS [facility] Start: 07-19-2024 End: 07-23-2024 Evaluation and management of inpatient [facility] Start: 07-14-2024 End: 07-14-2024 Emergency department patient visit ZARA Mason [facility] Start: 07-13-2024 End: 07-13-2024 Office outpatient visit 25 minutes Zara Marlon Evans DO Work Phone: [facility] Comment on above: Recurrent falls (Teresa jayesh Dx); Primary osteoarthritis involving multiple joints Start: 07-13-2024 End: 07-13-2024 ambulatory ZARA EVANS [facility] Start: 07-09-2024 End: 07-09-2024 Emergency department patient visit Miles He DO Work Phone: [facility] Comment on above: Fall, initial encoun ter (Primary Dx); Contusion of right knee and lower leg, initial encounter Start: 06-28-2024 End: 06-28-2024 ambulatory RA[facility] L [facility] Amb[facility] Start: 06-28-2024 End: 06-28-2024 Office outpatient visit [facility] Work [facility]: [facility] Comment on above: Acquired hypothyroid ism (Primary Dx); Primary hypertension; Gastroesophageal reflux disease without esophagitis; Schizophrenia, unspecified type; Parkinson's disease without dyskinesia or fluctuating manifestations; Balance disorder Start: 06-23-2024 End: 06-23-2024 Office outpatient new 45 minutes Zara Evans DO Work Phone: [facility] Comment on above: Primary hypertension (Primary Dx); Type 2 diabetes mellitus without complication, without long-term current use of insulin (HCC); Parkinson's disease, unspecified whether dyskinesia present, unspecified whether manifestations fluctuate (HCC); Schizophrenia, unspecified type (HCC); Recurrent falls Start: 06-23-2024 End: 06-23-2024 ambulatory ZARA EVANS [facility] Start: 05-26-2024 End: 05-26-2024 ambulatory [facility] Start: 05-25-2024 ambulatory MINA ORTIZ [facility] Start: 05-19-2024 End: 05-19-2024 ambulatory [facility] Start: 05-18-2024 End: 05-18-2024 Refill Mina Ortiz MD Work Phone: [facility] Comment on above: Parkinson disease (H CC) Start: 05-11-2024 End: 05-11-2024 ambulatory [facility] Start: 05-05-2024 End: 05-05-2024 ambulatory [facility] Start: 05-04-2024 End: 05-04-2024 ambulatory [facility] Start: 04-28-2024 End: 04-28-2024 ambulatory [facility] Start: 04-27-2024 End: 04-27-2024 ambulatory [facility] Start: 04-27-2024 End: 04-27-2024 ambulatory ELIZABETH KIMBLE [facility] Start: 04-27-2024 End: 04-27-2024 Patient encounter procedure Elizabeth Kimble DPM Work Phone: [facility] Comment on above: Onychomycosis (Prima ry Dx); Onychodystrophy; Diabetic peripheral neuropathy (HCC); Pain due to onychomycosis of toenail of right foot Start: 04-22-2024 End: 04-22-2024 ambulatory [facility] Start: 04-20-2024 End: 04-20-2024 ambulatory [facility] Start: 04-15-2024 End: 04-15-2024 ambulatory [facility] Start: 03-29-2024 End: 03-29-2024 ambulatory [facility] Amb[facility] Start: 03-29-2024 End: 03-29-2024 Office outpatient visit 25 minutes Rafa Jacinto DO Work Phone: [facility] Comment on above: Type 2 diabetes susi itus without complication, without long- term current use of insulin (Multi) (Primary Dx); Primary hypertension; Acquired hypothyroidism; Gastroesophageal reflux disease without esophagitis; Stage 3a chronic kidney disease (Multi); Schizophrenia, unspecified type; Parkinson's disease without dyskinesia or fluctuating manifestations Start: 03-22-2024 End: 03-22-2024 ambulatory [facility] Start: 03-12-2024 End: 03-12-2024 ambulatory [facility] Start: 03-01-2024 End: 03-01-2024 ambulatory NIMCO Carr [facility] Start: 02-27-2024 End: 02-27-2024 ambulatory [facility] Start: 02-25-2024 End: 02-25-2024 ambulatory [facility] Start: 02-23-2024 End: 02-23-2024 ambulatory [facility] Start: 02-13-2024 End: 02-13-2024 ambulatory [facility] Start: 02-11-2024 End: 02-11-2024 ambulatory [facility] Start: 02-10-2024 End: 02-10-2024 ambulatory [facility] Start: 02-05-2024 End: 02-05-2024 Office outpatient visit 15 minutes Tracy Angelman OSTEOLOGY TEACHER-CLERK GENERAL OFFICE Work Phone: [facility] Comment on above: Other closed fractur e of distal end of right ulna, initial encounter (Primary Dx) Start: 02-05-2024 End: 02-05-2024 ambulatory [facility] Ambulatory Start: 02-04-2024 End: 02-04-2024 ambulatory [facility] Start: 02-03-2024 End: 02-03-2024 Office outpatient visit 15 minutes Sachin Morales MD Work Phone: [facility] Comment on above: Right wrist pain (Pr imary Dx) Start: 02-03-2024 End: 02-03-2024 Orders Only Mariana Oates SECONDARY ENGLISH TEACHER [facility] Comment on above: Pain (Primary Dx) Start: 02-02-2024 End: 02-02-2024 ambulatory [facility] Start: 01-30-2024 End: 01-30-2024 ambulatory [facility] Start: 01-29-2024 End: 01-30-2024 ambulatory DARIN TRUJILLO [facility] Start: 01-29-2024 End: 01-29-2024 Subsequent hospital visit by physician Sabas Greenev[facility] Comment on above: Arrived Start: 01-29-2024 End: 01-29-2024 Emergency department patient visit Darin Trujillo MD Work Phone: [facility] Comment on above: Subluxation of dista l end of right ulna, subsequent encounter (Primary Dx); Contusion of right forearm, initial encounter; Contusion of right knee, initial encounter; Subluxation of tooth Start: 01-26-2024 End: 01-26-2024 Patient encounter procedure Elizabeth Kimble DPM Work Phone: [facility] Comment on above: Onychomycosis; Onychodystrophy; Diabetic peripheral neuropathy (HCC); Pain due to onychomycosis of toenail of right foot Start: 01-26-2024 End: 01-26-2024 ambulatory ELIZABETH HANSENR [facility] Start: 01-23-2024 End: 01-23-2024 ambulatory [facility] Start: 01-22-2024 End: 01-22-2024 ambulatory [facility] Start: 01-21-2024 End: 01-21-2024 ambulatory [facility] Start: 01-21-2024 End: 01-21-2024 Office outpatient visit 15 minutes Huy Vasquez PA-C Work Phone: [facility] Comment on above: SAH (subarachnoid he morrhage) (HCC) (Primary Dx) Start: 01-21-2024 End: 01-21-2024 ambulatory HUY VASQUEZ [facility] Start: 01-16-2024 End: 01-16-2024 ambulatory [facility] Start: 01-12-2024 End: 01-12-2024 ambulatory [facility] Start: 01-09-2024 End: 01-09-2024 ambulatory [facility] Start: 01-08-2024 End: 01-08-2024 ambulatory MINA ORTIZ [facility] Start: 01-08-2024 End: 01-08-2024 Office outpatient visit 40 minutes Mina Ortiz MD Work Phone: [facility] Comment on above: Parkinson disease (H CC) Start: 01-06-2024 End: 01-06-2024 ambulatory HUY VASQUEZ [facility] Start: 01-02-2024 End: 01-02-2024 ambulatory [facility] Start: 12-31-2023 End: 12-31-2023 ambulatory [facility] Start: 12-29-2023 End: 12-29-2023 ambulatory [facility] Start: 12-29-2023 End: 12-29-2023 Office outpatient visit 25 minutes Rafa [facility] Work Phone: [facility] Comment on above: Primary hypertension (Primary Dx); Type 2 diabetes mellitus without complication, without long-term current use of insulin (Multi); Acquired hypothyroidism; Disease of thyroid gland; Gastroesophageal reflux disease without esophagitis; Stage 3a chronic kidney disease (Multi); Schizophrenia, unspecified type (Multi); Parkinson's disease without dyskinesia or fluctuating manifestations (Multi) Start: 12-26-2023 End: 12-26-2023 ambulatory [facility] Start: 12-24-2023 End: 12-24-2023 ambulatory [facility] Start: 12-24-2023 End: 12-24-2023 ambulatory SACHIN MORALES [facility] Start: 12-24-2023 End: 12-24-2023 Postop follow up visit related to original px Sachin Morales MD Work Phone: [facility] Comment on above: Right wrist pain (Pr imary Dx) Start: 12-18-2023 End: 12-18-2023 Orders Only Sachin Morales MD Work Phone: [facility] Comment on above: Pain (Primary Dx) Start: 12-17-2023 End: 12-17-2023 Office outpatient visit 40 minutes [facility] OSTEOLOGY TEACHER-CLERK GENERAL OFFICE Work Phone: [facility] Comment on above: Parkinson's disease with fluctuating manifestations, unspecified whether dyskinesia present (Multi) (Primary Dx); Subarachnoid hemorrhage (Multi) Start: 12-17-2023 End: 12-17-2023 ambulatory [facility] Ambulatory Start: 12-16-2023 End: 12-16-2023 ambulatory PRISCILLA MACKEY [facility] Start: 12-16-2023 End: 12-16-2023 Office outpatient visit 15 minutes Priscilla Mackey CLERK GENERAL OFFICE Work Phone: [facility] Comment on above: SAH (subarachnoid he morrhage) (HCC) (Primary Dx) Start: 12-08-2023 End: 12-08-2023 Orders Only Huy Vasquez PA-C Work Phone: [facility] Comment on above: SAH (subarachnoid he morrhage) (HCC) (Primary Dx) Start: 12-04-2023 End: 12-05-2023 Evaluation and management of inpatient [facility] Start: 12-04-2023 End: 12-04-2023 Emergency department patient visit Jasmyn Wade DO Work Phone: [facility] Comment on above: Fall, initial encoun ter (Primary Dx); Traumatic hemorrhage of right cerebrum with loss of consciousness of 30 minutes or less, initial encounter (Multi); Facial abrasion, initial encounter; Contusion of face, initial encounter; Dislocation of right wrist, initial encounter Start: 10-15-2023 End: 10-15-2023 ambulatory [facility] Start: 10-14-2023 End: 10-14-2023 Office outpatient visit 15 minutes Elizabeth Parveen Hansenr DPM Work Phone: [facility] Comment on above: Diabetic peripheral neuropathy (HCC) (Primary Dx); Onychodystrophy; Onychomycosis; Pain due to onychomycosis of toenail of right foot Start: 07-19-2023 End: 07-19-2023 Emergency department patient visit [facility] Start: 07-15-2023 End: 07-15-2023 Office outpatient new 30 minutes Elizabeth Sabry Achille DPM Work Phone: [facility] Comment on above: Comprehensive diabet ic foot examination, type 2 DM, encounter for (HCC) (Primary Dx); Diabetic peripheral neuropathy (HCC); Onychodystrophy; Onychomycosis; Pain due to onychomycosis of toenail of right foot Start: 07-10-2023 End: 07-10-2023 Subsequent hospital visit by physician Sabas [id number] Kristio [facility] Comment on above: Encounter for screen ing mammogram for malignant neoplasm of breast Start: 06-25-2023 Orders Only Mina Ortiz MD Work Phone: [facility] Comment on above: Parkinson disease Start: 06-24-2023 Refill Mary Anne Julianne strickland MA [facility] Comment on above: Parkinson disease Start: 06-23-2023 End: 06-23-2023 Office outpatient visit 25 minutes Mina Ortiz MD Work Phone: [facility] Comment on above: Parkinson disease Start: 04-21-2023 End: 04-21-2023 Office outpatient new 45 minutes Rafa Jacinto DO Work Phone: [facility] Comment on above: Encounter for screen ing mammogram for malignant neoplasm of breast (Primary Dx); Type 2 diabetes mellitus without complication, without long-term current use of insulin ([facility]); Acquired hypothyroidism; Stage 3a chronic kidney disease ([facility]); Parkinson's disease without dyskinesia or fluctuating manifestations; Schizophrenia, unspecified type ([facility]) Start: 02-04-2023 Patient encounter procedure [facility]wan [facility]araj [facility] Work Phone: Start: 01-29-2023 Patient encounter procedure Antwan Maharaj Work Phone: [facility] Work Phone: Start: 01-29-[address] Antwan Maharaj Facility:[id number] Start: 01-21-[address] Antwan Maharaj Facility:[id number] Start: 01-21-2023 Patient encounter procedure [facility]an Maharaj Work Phone[facility] Work Phone: Start: 01-14-2023 Patient encounter procedure Antwan Maharaj Work Phone: [facility] Work Phone: Start: 01-14-[address] Antwan Maharaj Facility:[id number] Start: 12-31-[address] Antwan Maharaj Facility:[id number] Start: 12-24-[address] Antwan Maharaj Facility:[id number] Start: 12-24-2022 Patient encounter procedure Antwan Maharaj Work Phone: [facility] Work Phone: Start: 12-19-[address] Antwan Maharaj Facility:[id number] Start: 12-19-2022 Patient encounter procedure Antwan Maharaj Work Phone: [facility] Work Phone: Start: 12-19-2022 End: 12-19-2022 Office outpatient visit 25 minutes Mina Ortiz MD Work Phone: [facility] Comment on above: Parkinson disease (H CC) Start: 12-03-2022 Patient encounter procedure Antwan Maharaj Work Phone: [facility] Work Phone: Start: 12-03-[address] Antwan Maharaj Facility:[id number] Start: 11-25-2022 Patient encounter procedure Antwan Maharaj Work Phone: [facility] Work Phone: Start: 11-25-[address] Antwan Maharaj Facility:[id number] Start: 11-06-2022 End: 11-06-2022 Emergency department patient visit Erickson Hernandez [facility] Emergency Start: 10-07-2022 End: 10-08-2022 Emergency department patient visit Osiel Vergara [facility] Emergency 11 Start: 08-18-2022 End: 08-18-2022 Emergency department patient visit Sharamine Dean [facility] Emergency 12 Start: 08-09-2022 End: 08-09-2022 Emergency department patient visit Erickson Hernandez [facility] Emergency Start: 08-01-2022 End: 08-01-2022 Office outpatient visit 25 minutes Mina Ortiz MD Work Phone: [facility] Comment on above: Parkinson disease (H CC) (Primary Dx) Start: 05-25-2022 End: 05-26-2022 Emergency department patient visit France Lowe [facility] Emergency 07 Start: 04-22-[address] Antwan Maharaj Facility:[id number] Start: 04-17-2022 End: 04-18-2022 ambulatory MINA ORTIZ [facility] Start: 04-15-2022 Orders Only Mina Ortiz MD Work Phone: [facility] Comment on above: NPH (normal pressure hydrocephalus) (HCC) (Primary Dx); Abnormal coagulation profile NPH (normal pressure hydrocephalus) (HCC) (Primary Dx) Start: 11-15-2021 Transcribe Orders Antwan espinoza MD Work Phone: [facility] Central Scheduling Comment on above: Other symptoms and s igns involving the nervous system (Primary Dx); Abnormal brain MRI Start: 05-18-2019 End: 05-18-2019 Office outpatient visit 10 minutes Tijackie Shea Floridalma Work Phone: [facility] Comment on above: Fracture of unspecif ied phalanx of left little finger, initial encounter for closed fracture (Primary Dx) Start: 04-27-2019 End: 04-27-2019 Office outpatient new 30 minutes Antwan Maharaj Work Phone: [facility] Comment on above: Fracture of unspecif ied phalanx of left little finger, initial encounter for closed fracture Start: 11-03-2018 End: 11-03-2018 Patient encounter procedure Antwan Maharaj Work Phone: [facility] Comment on above: Dysphagia, unspecifi ed type Start: 12-25-2017 Patient encounter Antwan Maharaj [facility] Start: 07-26-2017 Patient encounter [facility]an [facility] Start: 04-17-2017 End: 04-17-2017 Patient encounter Antwan Maharaj [facility] Start: 04-09-2017 End: 04-09-2017 Ambulatory Antwan Watters Work Phone: [facility] Start: 01-14-2017 Ambulatory [facility] Facility :[facility] Start: 01-13-2017 End: 01-13-2017 Emergency department patient visit [facility] Facility:[facility] Procedures Date Procedure Procedure Detail Performing [...] or 75+ (1 - 1-dose 75+ series) [facility] Start: 07-14-2034 Tetanus vaccination Tetanus: Every 10yrs [facility] Start: 07-19-2033 DTaP/Tdap/Td Vaccines (4 - Td or Tdap) DTaP/Tdap/Td Vaccines (4 - Td or Tdap) [facility] Start: 07-19-2033 Tetanus vaccination Tetanus: Every 10yrs [facility] Start: 08-09-2032 DTaP/Tdap/Td Vaccines (2 - Td or Tdap) DTaP/Tdap/Td Vaccines (2 - Td or Tdap) [facility] Start: 08-09-2032 Tetanus vaccination Tetanus: Every 10yrs [facility] Start: 11-17-2028 Tetanus vaccination [facility] Start: 09-21-2025 Urine screening for protein Urine (micro)albumin/creatini ne ratio - Diabetes [facility] Start: 07-19-2025 eGFR Diabetes eGFR Diabetes [facility] Start: 07-19-2025 Urine screening for protein eGFR Diabetes [facility] Start: 07-11-2025 Screening for malignant neoplasm of colon [facility] Start: 06-28-2025 Thyroid stimulating hormone measurement TSH Level [facility] Start: 03-30-2025 End: 03-30-2025 Patient encounter procedure 03/30/2025 10:40 AM EDT Office Visit [facility] [address] [place] [address] Zara Evans DO [address] [address] [facility] Start: 03-12-2025 Thyroid stimulating hormone measurement TSH Level [facility] Start: 03-03-2025 Glaucoma screening Diabetes: Retinopathy Screening [facility] Start: 02-07-2025 Influenza vaccination Influenza Vaccine (#1) [facility] Start: 01-24-2025 End: 01-24-2025 Patient encounter procedure 01/24/2025 11:30 AM EDT Office Visit [facility] [address] [place] [phone] Elizabeth Kimble DPM [address] [place] [address] [facility] Start: 01-11-2025 End: 01-11-2025 Patient encounter procedure 01/11/2025 9:40 AM EDT Office Visit [facility] [address] [facility] Medical Office Building, 2nd [place] [address] Mina Ortiz MD [address] [address] [facility] Start: 12-30-2024 End: 12-30-2024 Patient encounter procedure 12/30/2024 11:20 AM EDT Office Visit [facility] [address] [place] [address] Zara Evans DO [address] [address] [facility] Start: 12-21-2024 Hemoglobin A1c measurement A1C [facility] Start: 12-04-2024 Urine screening for protein eGFR Diabetes [facility] Start: 11-11-2024 End: 11-11-2024 Patient encounter procedure 11/11/2024 11:00 AM EDT Office Visit [facility] [address] [place] [phone] Marcos Barrera MD [address] [place] [address] [facility] Start: 10-25-2024 End: 10-25-2024 Patient encounter procedure 10/25/2024 11:00 AM EDT Office Visit [facility] [address] [place] [phone] Elizabeth Kimble DPM [address] [place] [address] [facility] Start: 10-14-2024 Lipid panel Lipid Panel [facility] Start: 10-14-2024 Thyroid stimulating hormone measurement TSH Level [facility] Start: 09-30-2024 End: 09-30-2024 Patient encounter procedure [facility] Start: 09-26-2024 Hemoglobin A1c measurement [facility] Start: 09-21-2024 End: 09-21-2024 Patient encounter procedure 09/21/2024 10:40 AM EDT Office Visit [facility] [address] [place] [address] [place] [address] [place] [address] [facility] Start: 09-09-2024 End: 09-09-2024 Patient encounter procedure 09/09/2024 2:00 PM EDT Office Visit [facility] [address] [place] [address] Zara Evans DO [address] [address] Marcos Barrera MD [address] [place] [address] [facility] Start: 09-08-2024 End: 09-08-2024 ambulatory 09/08/2024 10:15 AM EDT Treatment [facility] [address] [place] [phone] Shelley Maldonado PA-C [address] [place] [address] Julianne Buck, PT [facility] Start: 09-06-2024 End: 09-06-2024 ambulatory 09/06/2024 10:15 AM EDT Treatment [facility] [address] [place] [address] Shelley Maldonado PA-C [address] [facility] [place] [address] [facility] Start: 09-02-2024 End: 09-02-2024 ambulatory 09/02/2024 10:15 AM EDT Treatment [facility] [address] [place] [address] Shelley Maldonado PA-C [address] [place] [address] [facility] Start: 2024 End: 2024 ambulatory 2024 10:15 AM EDT Treatment [facility] [address] [place] [address] Shelley Maldonado PA-C [address] [place] [address] [facility] Start: 08-27-2024 End: 08-27-2024 ambulatory [facility] Start: 08-26-2024 End: 08-26-2024 ambulatory 08/26/2024 10:15 AM EDT Treatment [facility] [address] [place] [address] Shelley Maldonado PA-C [address] [place] [address] [facility] Start: 08-13-2024 End: 08-13-2024 ambulatory 08/13/2024 10:15 AM EST Evaluation [facility] [address] [place] [address] Shelley Maldonado PA-C [address] [place] [address] Soto Daly, OT Discharge Disposition: Home [facility] Start: 08-02-2024 End: 08-02-2024 ambulatory 08/02/2024 12:30 PM EST Evaluation [facility] [address] [place] [address] Shelley Maldonado PA-C [address] [place] [address] Julianne Buck, PT Discharge Disposition: Home [facility] Start: 07-29-2024 End: 07-29-2024 Patient encounter procedure 07/29/2024 11:20 AM EST Office Visit [facility] [address] [place] [phone] Zara Evans DO [address] [place] [address] [facility] Start: 07-27-2024 End: 07-27-2024 Patient encounter procedure 07/27/2024 10:00 AM EST Office Visit [facility] [address] [facility] [address] [place] [phone] Elizabeth Kimble, BHUMI [address] [place] [address] [facility] Start: 07-22-2024 End: 07-22-2024 Patient encounter procedure 07/22/2024 11:20 AM EST Office Visit [facility] [address] [place] [address] Zara Evans DO [address] [place] [address] [facility] Start: 07-15-2024 Diabetic foot examination Diabetic Foot Exam [facility] Start: 07-10-2024 Screening for malignant neoplasm of breast Mammogram [facility] Start: 07-03-2024 Screening for malignant neoplasm of cervix [facility] Start: 06-28-2024 End: 06-28-2025 TSH with reflex to Free T4 if abnormal [facility] Service Area Work Phone: Comment on above: Expected: 06/28/2024 (Approximate), Expi res: 06/28/2025 Start: 06-28-2024 End: 06-28-2024 Patient encounter procedure 06/28/2024 12:40 PM EST [facility] Visit [facility] [address] [address] Rafa Jacinto, DO [address] [facility] [place] [address] [facility] Start: 06-12-2024 Hemoglobin A1c measurement [facility] Start: 04-27-2024 End: 04-27-2024 Patient encounter procedure 04/27/2024 10:00 AM EST Office Visit [facility] [address] [place] [phone] Elizabeth Kimble, DPM [address] [place] [address] [facility] Start: 04-15-2024 End: 04-15-2024 ambulatory 04/15/2024 9:45 AM EST Treatment [facility] [address] [place] [address] Perla Robbins, OT [address] [place] [address] [facility] Start: 03-29-2024 End: 03-29-2024 Patient encounter procedure 03/29/2024 12:40 PM EDT Office Visit [facility] [address] [address] Rafa Jacinto L, DO [address] [facility] [place] [address] [facility] Start: 03-03-2024 Glaucoma screening Diabetes: Retinopathy Screening [facility] Start: 03-01-2024 End: 03-01-2024 ambulatory 03/01/2024 9:30 AM EDT Treatment [facility] [address] [facility] [address] [place] [address] Nimco Reyna, PT [address] [facility] Services [place], [place] [phone] [facility] Start: 02-20-2024 End: 02-20-2024 ambulatory 02/20/2024 8:30 AM EDT Treatment [facility] [address] [facility] [address] [place] [address] Justa Rondon, INDUSTRIAL CHEMISTRY TEACHER [address] Re[facility] Services [place], [place] [phone] [facility] Start: 02-18-2024 End: 02-18-2024 ambulatory 02/18/2024 9:15 AM EDT Treatment [facility] [address] [facility] [address] [place] [address] Della Rivera, INDUSTRIAL CHEMISTRY TEACHER [address] [place] [address] [facility] Start: 02-16-2024 End: 02-16-2024 ambulatory 02/16/2024 10:00 AM EDT Treatment [place] [phone] [place] [address] [place] [address] [facility] Department [place] [address] [facility] Start: 02-13-2024 End: 02-13-2024 ambulatory 02/13/2024 3:30 PM EDT Treatment [facility] [address] [facility] [address] [place] [address] Mary Anne Enriquez, INDUSTRIAL CHEMISTRY TEACHER [address] [facility] [place] [id number] [facility] Start: 02-11-2024 End: 02-11-2024 ambulatory 02/11/2024 2:00 PM EDT Treatment [facility] [address] [facility] [address] [place] [address] Mary Anne Enriquez, INDUSTRIAL CHEMISTRY TEACHER [address] [place] [address] [facility] Start: 02-10-2024 End: 02-10-2024 ambulatory 02/10/2024 10:30 AM EDT Treatment [address] [address] Pooja Malave OTA [facility] [place] [address] [facility] Start: 02-08-2024 COVID-19 Vaccine ( season) COVID-19 Vaccine ( season) [facility] Start: 02-08-2024 Influenza vaccination Influenza Vaccine (#1) [facility] Start: 02-05-2024 End: 02-05-2024 ambulatory 02/05/2024 9:45 AM EDT Treatment [address] [address] Pooja Malave OTA [address] [facility] [place] [address] [facility] Start: 02-04-2024 End: 02-04-2024 ambulatory 02/04/2024 3:30 PM EDT Treatment [facility] [address] [address] Della Rivera, INDUSTRIAL CHEMISTRY TEACHER [address] [facility] Services [place], [place] [phone] [facility] Start: 02-02-2024 End: 02-02-2024 ambulatory 02/02/2024 10:00 AM EDT Treatment [facility] [address] [place] [phone] [place] [address] [facility] Department [place] [address] [facility] Start: 01-30-2024 End: 01-30-2024 ambulatory 01/30/2024 10:00 AM EDT Treatment [facility] [address] [place] [phone] Elbert Sosa, PT [address] [facility] [place] [address] [facility] Start: 01-26-2024 End: 01-26-2024 Patient encounter procedure 01/26/2024 1:45 PM EDT Office Visit [facility] [address] [place] [address] Elizabeth Kimble, BHUMI [address] [place] [address] [facility] Start: 01-26-2024 End: 01-26-2024 Patient encounter procedure 01/26/2024 8:30 AM EDT Office Visit [facility] [address] [place] [address] Elizabeth Kimble DPM [address] [place] [address] [facility] Start: 01-23-2024 End: 01-23-2024 ambulatory 01/23/2024 9:15 AM EDT Treatment [facility] [address] [facility] [address] [place] [address] Denise Morgan, INDUSTRIAL CHEMISTRY TEACHER [address] [facility] [place] [address] [facility] Start: 01-21-2024 End: 01-21-2024 ambulatory 01/21/2024 3:30 PM EDT Treatment [facility] [address] [facility] [address] [place] [address] Della Rivera, INDUSTRIAL CHEMISTRY TEACHER [address] [facility] [place] [address] [facility] Start: 01-21-2024 End: 01-21-2024 Patient encounter procedure 01/21/2024 10:15 AM EDT Office Visit [facility] [address] [facility] [place] [id number] Huy Vasquez PA-C [address] [place] [address] [facility] Start: 01-19-2024 End: 01-19-2024 Patient encounter procedure 01/19/2024 8:15 AM EDT Office Visit [facility] [address] [place] [address] Elizabeth Kimble DPM [address] [place] [address] [facility] Start: 01-16-2024 End: 01-16-2024 ambulatory 01/16/2024 2:00 PM EDT Treatment [facility] [address] [facility] [address] [place] [address] Della Rivera, INDUSTRIAL CHEMISTRY TEACHER [address] [facility] [place] [address] [facility] Start: 01-15-2024 Hemoglobin A1c measurement [facility] Start: 01-12-2024 End: 01-12-2024 ambulatory 01/12/2024 11:30 AM EDT Evaluation [facility] [address] [place] [address] [place] [address] [facility] Department [place] [address] [facility] Start: 01-09-2024 End: 01-09-2024 ambulatory 01/09/2024 9:15 AM EDT Treatment [facility] [address] [address] Denise Morgan, INDUSTRIAL CHEMISTRY TEACHER [address] [facility] [place] [address] [facility] Start: 01-08-2024 End: 01-08-2024 Patient encounter procedure 01/08/2024 8:40 AM EDT Office Visit [facility] [address] Medical [facility], 2nd [place] [address] Mina Ortiz MD [facility] [address] [address] [facility] Start: 01-07-2024 End: 01-07-2024 ambulatory 01/07/2024 7:45 AM EDT Treatment [facility] [address] [facility] [address] [place] [address] Denise Morgan, INDUSTRIAL CHEMISTRY TEACHER [address] [facility] [place] [address] [facility] Start: 01-06-2024 End: 01-06-2024 Patient encounter procedure 01/06/2024 10:00 AM EDT Appointment [facility] Emergency Department CT Scan [address] [place] [address] Huy Vasquez PA-C [address] [facility] Mariusz [address] [address] [facility] Emergency Department CT Scan Start: 01-05-2024 End: 12-07-2024 CT Head WO contrast CT Head Or Brain Without Contrast Imaging Routine SAH (subarachnoid hemorrhage) (HCC) Expected: 01/05/2024, Expires: 12/07/2024 [facility] Work Phone: Comment on above: Expected: 01/05/2024, Expires: Start: 01-02-2024 End: 01-02-2024 ambulatory 01/02/2024 9:15 AM EDT Treatment [facility] [address] [facility] [address] [place] [address] Denise Morgan, INDUSTRIAL CHEMISTRY TEACHER [address] [facility] [place] [address] [facility] Start: 12-31-2023 End: 12-31-2023 ambulatory 12/31/2023 9:15 AM EDT Treatment [facility] [address] [facility] [address] [place] [address] Denise Morgan, INDUSTRIAL CHEMISTRY TEACHER [address] [facility] [place] [address] [facility] Start: 12-29-2023 End: 12-29-2023 Patient encounter procedure 12/29/2023 4:40 PM EDT Office Visit [facility] [address] [place] [address] Rafa Jacinto, DO [address] [facility] [place] [address] [facility] Start: 12-29-2023 End: 12-28-2024 Comprehensive metabolic 2000 panel - Serum or Plasma Comprehensive Metabolic Panel Lab Routine Type 2 diabetes mellitus without complication, without long-term current use of insulin (Multi) Expected: 12/29/2023 (Approximate), Expires: 12/28/2024 [facility] Work Phone: Comment on above: Expected: 12/29/2023 (Approximate), Expi res: 12/28/2024 Start: 12-29-2023 End: 12-28-2024 Hemoglobin A1c/Hemoglobin.total in Blood Hemoglobin A1C Lab Routine Type 2 diabetes mellitus without complication, without long-term current use of insulin (Multi) Expected: 12/29/2023 (Approximate), Expires: 12/28/2024 [facility] Service Area Work Phone: Comment on above: Expected: 12/29/2023 (Approximate), Expi res: 12/28/2024 Start: 12-29-2023 End: 12-28-2024 TSH with reflex to Free T4 if abnormal TSH with reflex to Free T4 if abnormal Lab Routine Type 2 diabetes mellitus without complication, without long-term current use of insulin (Multi) Expected: 12/29/2023 (Approximate), Expires: 12/28/2024 [facility] Work Phone: Comment on above: Expected: 12/29/2023 (Approximate), Expi res: 12/28/2024 Start: 12-24-2023 End: 12-24-2023 ambulatory 12/24/2023 1:15 PM EDT Evaluation [facility] [place] [address] Ana Landaverde, MAINTENANCE ANALYST [address] [facility] [place] [address] ILAN Garcia Start: 12-24-2023 End: 12-24-2023 Patient encounter procedure 12/24/2023 9:30 AM EDT Office Visit [facility] [address] [facility] [place] [address] Sachin Morales MD [address] [place] [address] [facility] Start: 12-16-2023 End: 12-16-2023 Patient encounter procedure 12/16/2023 1:40 PM EDT Office Visit [facility] [address] [place] [address] Medical Office [facility], 5th [place] [address] Priscilla Mackey, CLERK GENERAL OFFICE [address] [place] [address] [facility] Start: 10-20-2023 End: 04-21-2024 Comprehensive metabolic 2000 panel - Serum or Plasma Comprehensive Metabolic Panel Lab Routine Type 2 diabetes mellitus without complication, without long-term current use of insulin (CMS/HCC) Expected: 10/20/2023 (Approximate), Expires: 04/21/2024 [facility] Work Phone: Comment on above: Expected: 10/20/2023 (Approximate), Expi res: 04/21/2024 Start: 10-20-2023 End: 04-21-2024 Hemoglobin A1c/Hemoglobin.total in Blood Hemoglobin A1C Lab Routine Type 2 diabetes mellitus without complication, without long-term current use of insulin (CMS/HCC) Expected: 10/20/2023 (Approximate), Expires: 04/21/2024 [facility] Work Phone: Comment on above: Expected: 10/20/2023 (Approximate), Expi res: 04/21/2024 Start: 10-20-2023 End: 04-21-2024 Lipid 1996 panel - Serum or Plasma Lipid Panel Lab Routine Type 2 diabetes mellitus without complication, without long-term current use of insulin ([facility]) Expected: 10/20/2023 (Approximate), Expires: 04/21/2024 [facility] Work Phone: Comment on above: Expected: 10/20/2023 (Approximate), Expi res: 04/21/2024 Start: 10-20-2023 End: 04-21-2024 TSH with reflex to Free T4 if abnormal TSH with reflex to Free T4 if abnormal Lab Routine Acquired hypothyroidism Expected: 10/20/2023 (Approximate), Expires: 04/21/2024 [facility] Work Phone: Comment on above: Expected: 10/20/2023 (Approximate), Expi res: 04/21/2024 Start: 10-20-2023 End: 10-20-2023 Patient encounter procedure 10/20/2023 10:20 AM EDT Office Visit [facility] [address] [facility] 1 [place] [address] Rafa Jacinto L, DO [address] [facility] [place] [address] [facility] Start: 10-14-2023 End: 10-14-2023 Patient encounter procedure 10/14/2023 8:15 AM EDT Office Visit [facility] [address] [facility] [place] [address] Elizabeth Kimble, BHUMI [address] [place] [address] [facility] Start: 07-10-2023 End: 07-10-2023 Professional / ancillary services management 07/10/2023 10:00 AM EST Ancillary Procedure [place] [address] [address] [facility] Start: 06-20-2023 End: 06-21-2024 DBT Breast - bilateral BI mammo bilateral screening tomosynthesis Imaging Routine Encounter for screening mammogram for malignant neoplasm of breast Expected: 06/20/2023, Expires: 06/21/2024 [facility] Service Area Work Phone: Comment on above: Expected: 06/20/2023, Expires: Start: 02-07-2023 Influenza vaccination [facility] Start: 02-04-2023 PTRECHADUL, Provider: Bibi Villela, Status: Pen, Time: 9:30 AM PTRECHADUL, Provider: Bibi V[place]la, Status: Pen, Time: 9:30 AM [facility] Work Phone: Start: 01-29-2023 [email or web address], Provider: Bibi Villela, Status: Pen, Time: 9:15 AM PTFUADULT4, Provider: Biib Villela, Status: Pen, Time: 9:15 AM [facility] Work Phone: Start: 01-21-2023 [email or web address], Provider: Bibi V[place]la, Status: Pen, Time: 9:00 AM PTFUADULT4, Provider: Bibi [place]la, Status: Pen, Time: 9:00 AM [facility] Work Phone: Start: 12-31-2022 PTRECHECKA, Provider: Bibi Villlea, Status: Pen, Time: 10:00 AM PTRECHECKA, Provider: Bibi Villela, Status: Pen, Time: 10:00 AM [facility] Work Phone: Start: 12-24-2022 [email or web address], Provider: Bibi Villela, Status: Pen, Time: 11:30 AM PTFUADULT4, Provider: Bibi Villela, Status: Pen, Time: 11:30 AM [facility] Work Phone: Start: 12-19-2022 [email or web address], Provider: Bibi Villela, Status: Pen, Time: 10:00 AM PTFUADULT4, Provider: Bibi Villela, Status: Pen, Time: 10:00 AM [facility] Work Phone: Start: 12-13-2022 Lipid panel Lipid Panel [facility] Start: 12-13-2022 Thyroid stimulating hormone measurement TSH Level [facility] Start: 12-03-2022 [email or web address], Provider: Bibi Villela, Status: Pen, Time: 3:30 PM PTFUADULT4, Provider: Biib Villela, Status: Pen, Time: 3:30 PM [facility] Work Phone: Start: 11-18-2022 Administration of herpes zoster vaccine Zoster Vaccines (2 of 2) [facility] Start: 08-01-2022 End: 08-01-2022 Patient encounter procedure 08/01/2022 Office Visit Neurology Mina Ortiz MD [address] [place] [address] [facility] Start: 06-19-2022 Screening for malignant neoplasm of breast Mammogram [facility] Start: 04-24-2022 End: 04-24-2022 Patient encounter procedure 04/24/2022 Appointment Radiology Mina Ortiz MD [address] [place] [address] [facility] Start: 04-17-2022 Subsequent hospital visit by physician 04/17/2022 Hospital Encounter Radiology Mina Ortiz MD [address] [place] [address] [facility] Start: 03-15-2022 Hemoglobin A1c measurement [facility] Start: 02-07-2022 Influenza vaccination Sequential Influenza Vaccine (Season Ended) [facility] Start: 2020 Respiratory Syncytial Virus Immunization: Risk, 60-74 Risk, or 75+ (1 - Risk 60-74 years 1-dose series) Respiratory Syncytial Virus Immunization: Risk, 60-74 Risk, or 75+ (1 - Risk 60-74 years 1-dose series) [facility] Start: 2020 RSV High Risk: (Elderly (60+) or Population) (1 - Risk 60-74 years 1-dose series) RSV High Risk: (Elderly (60+) or Population) (1 - Risk 60-74 years 1-dose series) [facility] Start: 2020 RSV patients and/or patients aged 60+ years (1 - 1-dose 60+ series) RSV patients and/or patients aged 60+ years (1 - 1-dose 60+ series) [facility] Start: 05-03-2020 Pneumococcal vaccination Pneumococcal Vaccine (2 of 2 - PCV) [facility] Start: 05-03-2020 Pneumococcal Vaccine: Age 50+ (2 of 2 - PCV) Pneumococcal Vaccine: Age 50+ (2 of 2 - PCV) [facility] Start: 05-03-2020 Pneumococcal Vaccine: Ped or At-Risk (2 of 2 - PCV) Pneumococcal Vaccine: Ped or At-Risk (2 of 2 - PCV) [facility] Start: 05-03-2020 Pneumococcal Vaccine: Pediatrics (0 to 5 Years) and At-Risk Patients (6 to 64 Years) (2 - PCV) Pneumococcal Vaccine: Pediatrics (0 to 5 Years) and At-Risk Patients (6 to 64 Years) (2 - PCV) [facility] Start: 05-03-2020 Pneumococcal Vaccine: Pediatrics (0 to 5 Years) and At-Risk Patients (6 to 64 Years) (2 of 2 - PCV) Pneumococcal Vaccine: Pediatrics (0 to 5 Years) and At-Risk Patients (6 to 64 Years) (2 of 2 - PCV) [facility] Start: 05-18-2019 End: 05-18-2019 Office Visit 05/18/2019 Office Visit Sports Medicine Ti Rhodes MD [address] [place] [address] [phone] [facility] Start: 02-07-2019 Influenza vaccination given [facility] Start: 06-25-2018 Hemoglobin A1c measurement A1C [facility] Start: 03-25-2018 Hemoglobin A1c measurement A1C [facility] Start: 2010 Administration of herpes zoster vaccine Zoster Vaccines (1 of 2) [facility] Start: 2010 Screening for malignant neoplasm of colon [facility] Start: 2010 Zoster Vaccines (1 of 2) Zoster Vaccines (1 of 2) [facility] Start: 2000 Screening for malignant neoplasm of breast Mammogram [facility] Start: 1990 Screening for malignant neoplasm of cervix [facility] Start: 1982 DTaP/Tdap/Td Vaccines (1 - Tdap) DTaP/Tdap/Td Vaccines (1 - Tdap) [facility] Start: 1981 Screening for malignant neoplasm of cervix [facility] Start: 08-31-1979 Urine screening for protein Diabetes: Urine Protein Screening [facility] Start: 1978 Hepatitis C screening Hepatitis C Screening [facility] Start: 08-31-1975 HIV screening HIV Screening [facility] Start: 1972 Depression screening using PHQ-9 (Patient Health Questionnaire 9) score [facility] Start: 1970 Diabetic foot examination [facility] Start: 1970 Glaucoma screening [facility] Start: 1970 Microalbumin measurement, urine, quantitative Urine Microalbumin [facility] Start: 1970 Ophthalmic examination and evaluation Ophthalmology Exam [facility] Start: 1970 Urine screening for protein [facility] Start: 1965 COVID-19 Vaccine (#1) COVID-19 Vaccine (#1) [facility] Start: 08-31-1963 History and physical examination, annual for health maintenance Wellness Visit [facility] Start: 08-31-1963 Medicare Wellness Visit Medicare Wellness Visit [facility] Start: 1961 MMR Vaccines (1 of 1 - Standard series) MMR Vaccines (1 of 1 - Standard series) [facility] Start: 03-02-1961 COVID-19 Vaccine (#1) COVID-19 Vaccine (#1) [facility] Start: 1960 Depression screening using PHQ-9 (Patient Health Questionnaire 9) score DEPRESSION SCREENING (PHQ9) [facility] Start: 1960 Hepatitis C antibody, confirmatory test HEPATITIS C SCREENING [facility] Start: 1960 HIV screening HIV Screening [facility] Start: 1960 Medicare Annual Wellness Visit Medicare Annual Wellness Visit (AWV) [facility] Start: 1960 Physical therapy management PT Plan of Care [facility] Start: 1960 Protein mass conc Mammogram [facility] Start: 1960 Screening for malignant neoplasm of cervix PAP SMEAR [facility] Start: 1960 Screening for malignant neoplasm of colon [facility] Start: 1960 Screening mammography Mammogram [facility] Start: 1960 Tetanus vaccination TETANUS EVERY 10 YR [facility] Start: 1960 Urine screening for protein Diabetes: Urine Protein Screening [facility] End: 04-16-2023 aPTT in Blood by Coagulation assay APTT Lab Routine NPH (normal pressure hydrocephalus) ([facility]) Abnormal coagulation profile 1 Occurrences starting 04/15/2022 until 04/16/2023 [facility] Comment on above: 1 Occurrences starting 04/15/2022 until 04/16/2023 aPTT in Blood by Coagulation assay APTT Lab Routine NPH (normal pressure hydrocephalus) ([facility]) Abnormal coagulation profile 04/15/2022 4:34 PM EST [facility] End: 04-15-2023 Cell count and differential, cerebrospinal fluid CSF Cell Count with Differential Lab Routine NPH (normal pressure hydrocephalus) ([facility]) 1 Occurrences starting 04/15/2022 until 04/15/2023 [facility] Work Phone: Comment on above: 1 Occurrences starting 04/15/2022 until 04/15/2023 End: 04-15-2023 CSF Bacterial/Viral Detection By PCR (Lumbar Puncture Only) CSF Bacterial/Viral Detection By PCR (Lumbar Puncture Only) Microbiology Routine NPH (normal pressure hydrocephalus) ([facility]) 1 Occurrences starting 04/15/2022 until 04/15/2023 [facility] Comment on above: 1 Occurrences starting 04/15/2022 until 04/15/2023 End: 04-15-2023 CSF VDRL CSF VDRL Lab Routine NPH (normal pressure hydrocephalus) ([facility]) 1 Occurrences starting 04/15/2022 until 04/15/2023 [facility] Comment on above: 1 Occurrences starting 04/15/2022 [...] (HCC) 1 Occurrences starting 04/15/2022 until 04/15/2023 [facility] Comment on above: 1 Occurrences starting 04/15/2022 until 04/15/2023 End: 09-21-2025 Hemoglobin A1c/Hemoglobin.total in Blood Hemoglobin A1c Lab Routine Type 2 diabetes mellitus without complication, without long-term current use of insulin (HCC) 1 Occurrences starting 09/21/2024 until 09/21/2025 [facility] Work Phone: Comment on above: 1 Occurrences starting 09/21/2024 until 09/21/2025 End: 04-16-2023 INR in Platelet poor plasma by Coagulation assay PT/INR Lab Routine NPH (normal pressure hydrocephalus) Abnormal coagulation profile 1 Occurrences starting 04/15/2022 until 04/16/2023 [facility] Work Phone: Comment on above: 1 Occurrences starting 04/15/2022 until 04/16/2023 INR in Platelet poor plasma by Coagulation assay PT/INR Lab Routine NPH (normal pressure hydrocephalus) (HCC) Abnormal coagulation profile 04/15/2022 4:34 PM EST [facility] End: 07-10-2023 MG Breast - bilateral Screening [facility] Work Phone: Comment on above: Once for 1 Occurrences starting 07/10/19 24 until 07/10/2023 End: 09-21-2025 Microalbumin measurement, urine, quantitative Microalbumin/Creatinine Ratio, UR Random Lab Routine Type 2 diabetes mellitus without complication, without long-term current use of insulin (HCC) 1 Occurrences starting 09/21/2024 until 09/21/2025 [facility] Comment on above: 1 Occurrences starting 09/21/2024 until 09/21/2025 End: 09-23-2025 MTB SCREEN MTB SCREEN Lab Routine At risk for tuberculosis 1 Occurrences starting 09/23/2024 until 09/23/2025 [facility] Work Phone: Comment on above: 1 Occurrences starting 09/23/2024 until 09/23/2025 End: 04-15-2023 Protein [Mass/volume] in Cerebral spinal fluid Protein, CSF Lab Routine NPH (normal pressure hydrocephalus) (HCC) 1 Occurrences starting 04/15/2022 until 04/15/2023 [facility] Comment on above: 1 Occurrences starting 04/15/2022 until 04/15/2023 End: 09-09-2025 RF Upper gastrointestinal tract and Small bowel Views W barium contrast PO XR Upper GI With Small Bowel Follow Through Imaging Routine Abnormal CT of the abdomen 1 Occurrences starting 09/09/2024 until 09/09/2025 [facility] Work Phone: Comment on above: 1 Occurrences starting 09/09/2024 until 09/09/2025 End: 02-02-2025 XR Wrist - left 2 Views XR Wrist Left 2 Views Imaging Routine Pain 1 Occurrences starting 02/03/2024 until 02/02/2025 [facility] Work Phone: Comment on above: 1 Occurrences starting 02/03/2024 until 02/02/2025 XR Wrist - left 2 Views XR Wrist Left 2 Views Imaging Routine Pain 02/03/2024 11:12 AM EDT [facility] End: 12-17-2024 XR Wrist - right 2 Views XR Wrist Right 2 Views Imaging Routine Pain 1 Occurrences starting 12/18/2023 until 12/17/2024 [facility] Work Phone: Comment on above: 1 Occurrences starting 12/18/2023 until 12/17/2024 End: 02-02-2025 XR Wrist - right 2 Views XR Wrist Right 2 Views Imaging Routine Pain 1 Occurrences starting 02/03/2024 until 02/02/2025 [facility] Work Phone: Comment on above: 1 Occurrences starting 02/03/2024 until 02/02/2025 Immunizations Immunization Date Immunization Notes Care Provider Fa magoty 07-14-2024 tetanus toxoid, redu amaya diphtheria toxoid, and acellular pertussis vaccine, adsorbed Zara Cristina DO Work Phone: [facility] 03-30-2024 influenza virus vaccine, unspecified formulation Zara Cristina DO Work Phone: [facility] 07-19-2023 tetanus toxoid, redu amaya diphtheria toxoid, and acellular pertussis vaccine, adsorbed Jasmyn Wade DO Work Phone: [facility] 03-26-2023 influenza, injectabl e, quadrivalent, preservative free Rafa Oberhauser DO Work Phone: [facility] Work Phone: 03-26-2023 influenza virus vaccine, unspecified formulation Huy Vasquez PA-C Work Phone: [facility] 02-14-2023 zoster vaccine recombinant Rafa Oberhauser DO Work Phone: [facility] Work Phone: 09-23-2022 zoster vaccine recombinant Rafa Oberhauser DO Work Phone: [facility] Work Phone: 08-09-2022 tetanus toxoid, redu amaya diphtheria toxoid, and acellular pertussis vaccine, adsorbed Antwan Weberkourtneycory Other Phone: [facility] 04-11-2022 Moderna COVID-19 vaccine, bivalent, blue cap/laguna label *Check age/dose* Rafa Oberhauser DO Work Phone: [facility] Work Phone: 03-28-2022 Influenza, injectabl e, Madin Lizy Canine Kidney, preservative free, quadrivalent Rafa Oberhauser DO Work Phone: [facility] Work Phone: 03-21-2021 influenza, injectabl e, quadrivalent, preservative free Rafa Oberhauser DO Work Phone: [facility] Work Phone: 03-24-2020 influenza, injectabl e, quadrivalent, preservative free Rafa Oberhauser DO Work Phone: [facility] Work Phone: 05-03-2019 pneumococcal polysaccharide vaccine, 23 valent Rafa Oberhauser DO Work Phone: [facility] Work Phone: 03-24-2019 influenza, injectabl e, quadrivalent, preservative free Rafa Oberhauser DO Work Phone: [facility] Work Phone: 11-17-2018 tetanus toxoid, redu amaya diphtheria toxoid, and acellular pertussis vaccine, adsorbed Rafa Oberhauser DO Work Phone: [facility] Work Phone: 04-15-2018 influenza, injectabl e, quadrivalent, preservative free Rafa Oberhauser DO Work Phone: [facility] Work Phone: 04-25-2016 influenza, injectabl e, quadrivalent, contains preservative Rafa Oberhauser DO Work Phone: [facility] Work Phone: Payers Date Payer Category Payer Medicare (Managed Care) [facility] [id number] 2023 Unknown [id number] 2017 Medicaid MEDICAID [facility] xxxxxxxxxxxx 2017-Present xxxxxxxxxxxx [id number] 2017 Medicaid [id number]. 1.13.385.2. [id number] 2017 Medicaid [id number] 2000 Medicare MEDICARE MEDICAR E PART A & B xxxxxxxxxxx 2000-Present [place] xxxxxxxxxxx [id number]. [id number] 2000 Medicare 1.2.840.850805. 1.13.385.2. [id number] 2000 Medicare [id number] 1960 Unknown [id number] 2.16.840.1.961980.3.579.2. 902 1960 Unknown [id number] 2.16.840.1.112096.3.579.2. 1068 1960 Unknown [id number] 2.16.840.1.476001.3.579.2. 1068 1960 Unknown [id number] 2.16.840.1.105752.3.579.2. 1068 1960 Unknown [id number] 2.16.840.1.705894.3.579.2. 1068 1960 Unknown [id number] 2.16.840.1.465639.3.579.2. 9 1960 Unknown [id number] 2.16.840.1.941081.3.579.2. 1068 1960 Unknown [id number] 2.16.840.1.383447.3.579.2. 106 1960 Unknown [id number] 2.16.840.1.000904.3.579.2. 1068 1960 Unknown [id number] 2.16.840.1.621651.3.579.2. 1068 1960 Unknown [id number] 2.16.840.1.241028.3.579.2. 1068 1960 Unknown [id number] 2.16.840.1.592828.3.579.2. 1069 1960 Unknown [id number] 2.16.840.1.301014.3.579.2. 9 1960 Unknown [id number] 2.16.840.1.861518.3.579.2. 9 1960 Unknown [id number] 2.16.840.1.277494.3.579.2. 1068 1960 Unknown [id number] 2.16.840.1.915804.3.579.2. 902 1960 Unknown [id number] 2.16.840.1.327334.3.579.2. 4 1960 Unknown [id number] 2.16.840.1.441520.3.579.2. 1243 1960 Unknown [id number] 2.16.840.1.181532.3.579.2. 1243 1960 Unknown [id number] 2.16.840.1.097684.3.579.2. 1243 1960 Unknown [id number] 2.16.840.1.356535.3.579.2. 4 1960 Unknown [id number] 2.16.840.1.278855.3.579.2. 1244 1960 Unknown [id number] 2.16.840.1.461101.3.579.2. 1244 1960 Unknown [id number] 2.16.840.1.114869.3.579.2. 1244 1960 Unknown [id number] 2.16.840.1.786292.3.579.2. 1242 1960 Unknown [id number] 2.16.840.1.149665.3.579.2. 1242 1960 Unknown [id number] 2.16.840.1.145798.3.579.2. 3 1960 Unknown [id number] 2.16.840.1.302500.3.579.2. 1242 1960 Unknown [id number] 2.16.840.1.910952.3.579.2. 1242 1960 Unknown [id number] 2.16.840.1.596802.3.579.2. 1242 1960 Unknown [id number] 2.16.840.1.829107.3.579.2. 1242 1960 Unknown [id number] 2.16.840.1.215633.3.579.2. 1242 1960 Unknown [id number] 2.16.840.1.253598.3.579.2. 1242 1960 Unknown [id number] 2.16.840.1.003844.3.579.2. 1242 1960 Unknown [id number] 2.16.840.1.814572.3.579.2. 1242 1960 Unknown [id number] 2.16.840.1.967438.3.579.2. 1242 1960 Unknown [id number] 2.16.840.1.103737.3.579.2. 1242 1960 Unknown [id number] 2.16.840.1.676066.3.579.2. 1242 1960 Unknown [id number] 2.16.840.1.633775.3.579.2. 1242 1960 Unknown [id number] 2.16.840.1.885841.3.579.2. 1242 1960 Unknown [id number] 2.16.840.1.597507.3.579.2. 1242 1960 Unknown [id number] 2.16.840.1.383472.3.579.2. 1242 1960 Unknown [id number] 2.16.840.1.287014.3.579.2. 1242 1960 Unknown [id number] 2.16.840.1.742784.3.579.2. 1242 1960 Unknown [id number] 2.16.840.1.057701.3.579.2. 1242 1960 Unknown [id number] 2.16.840.1.809926.3.579.2. 1242 1960 Unknown [id number] 2.16.840.1.194830.3.579.2. 1242 1960 Unknown [id number] 2.16.840.1.941398.3.579.2. 1242 1960 Unknown [id number] 2.16.840.1.178620.3.579.2. 1242 1960 Unknown [id number] 2.16.840.1.988657.3.579.2. 1242 1960 Unknown [id number] 2.16.840.1.249916.3.579.2. 1242 1960 Unknown [id number] 2.16.840.1.652497.3.579.2. 1242 1960 Unknown [id number] 2.16840.1.418158.3.579.2. 1242 1960 Unknown [id number] 2.16.840.1.525408.3.579.2. 1242 1960 Unknown [id number] 2.16.840.1.879781.3.579.2. 1242 1960 Unknown [id number] 2.16.840.1.709327.3.579.2. 1242 1960 Unknown [id number] 2.16.840.1.551074.3.579.2. 1242 1960 Unknown [id number] 2.16.840.1.268829.3.579.2. 1243 1960 Unknown [id number] 2.16.840.1.796745.3.579.2. 1242 1960 Unknown [id number] 2.16.840.1.041210.3.579.2. 1243 1960 Unknown [id number] 2.16.840.1.976750.3.579.2. 124 1960 Unknown [id number] 2.16.840.1.858881.3.579.2. 1960 Unknown [id number] 2.16.840.1.147716.3.579.2. 1960 Unknown [id number] 2.16.840.1.955805.3.579.2. 1960 Unknown [id number] 2.16.840.1.253623.3.579.2. 1960 Unknown [id number] 2.16.840.1.112820.3.579.2. 1960 Unknown [id number] 2.16.840.1.524766.3.579.2. 1960 Unknown [id number] 2.16.840.1.760554.3.579.2. 1960 Unknown [id number] 2.16.840.1.674013.3.579.2. 1960 Unknown [id number] 2.16.840.1.593019.3.579.2. 1960 Unknown [id number] 2.16.840.1.966803.3.579.2. 1960 Unknown [id number] 2.16.840.1.388505.3.579.2. 90 1960 Unknown [id number] 2.16.840.1.923143.3.579.2. 903 1960 Unknown [id number] 2.16.840.1.378208.3.579.2. 1960 Unknown [id number] 2.16.840.1.218641.3.579.2. 1960 Unknown [id number] 2.16.840.1.815757.3.579.2. 1960 Unknown [id number] 2.16.840.1.547027.3.579.2. 1960 Unknown [id number] 2.16840.1.525836.3.579.2. 1960 Unknown [id number] 2.840.1.124934.3.579.2. 1960 Unknown [id number] 2.840.1.516780.3.579.2 1960 Unknown [id number] 2.16840.1.180266.3.579.2. 1960 Unknown [id number] 2.16840.1.395028.3.579.2 1960 Unknown [id number] 2.16840.1.631935.3.579.2. 1960 Unknown [id number] 2.16840.1.822701.3.579.2. 1960 Unknown [id number] 2.16.840.1.695315.3.579.2. 1960 Unknown [id number] 2.16.840.1.052964.3.579.2 1960 Unknown [id number] 2.16840.1.580289.3.579.2 1960 Unknown [id number] 2.16840.1.374955.3.579.2. 903 1960 Unknown [id number] 2.16.840.1.105885.3.579.2. 903 1960 Unknown [id number] 2.16.840.1.418431.3.579.2. 903 1960 Unknown [id number] 2.16.840.1.662146.3.579.2. 903 1960 Unknown [id number] 2.16.840.1.667990.3.579.2. 903 1960 Unknown [id number] 2.16.840.1.935384.3.579.2. 90 1960 Unknown [id number] 2.16.840.1.953956.3.579.2. 903 1960 Unknown [id number] 2.16.840.1.916257.3.579.2. 903 1960 Unknown [id number] 2.16.840.1.645617.3.579.2. 903 Medicare [id number] Unknown Social History Date Type Detail Facility Start: 04-10-2017 Tobacco smoking status [facility] Unknown if ever smoked [facility] Work Phone: Start: 1960 Sex Assigned At Not on file [facility] Work Phone: Start: 04-27-2019 End: 03-28-2022 Tobacco smoking status NHIS Never smoker [facility] Start: 04-27-2019 End: 09-21-2024 Alcohol intake Ex-drinker (finding) [facility] Start: 04-27-2019 End: 07-19-2024 Cigarette pack-years [facility] Work Phone: Start: 04-27-2019 End: 03-28-2022 Tobacco use and exposure Smokeless tobacco non-user [facility] Start: 03-18-2022 End: 07-09-2024 Exposure to SARS-CoV-2 (event) Not sure [facility] Start: 08-01-2022 End: 07-19-2024 Tobacco use panel [facility] Work Phone: Start: 11-03-2018 Gender identity Identifies as female gender (finding) [facility] Start: 04-21-2023 End: 07-09-2024 Alcohol intake Lifetime non-drinker (finding) [facility] Work Phone: Start: 06-23-2024 Sexual orientation Heterosexual (finding) [facility] Has the electric, ga s, oil, or water company threatened to shut off services in your home in past 12Mo Patient unable to answer [facility] Has the electric, ga s, oil, or water company threatened to shut off services in your home in past 12Mo No [facility] (I/We) worried wheth er (my/our) food would run out before (I/we) got money to buy more. Never true [facility] Clinical Notes 08-01-2022 to 12-06-2024 Telephone Encounter - Lupe Ochoa LPN - 12/06/2024 3:02 PM EDTTelephone Encounter - Lupe Ochoa LPN - 12/06/2024 3:02 PM Marcos Singh MD - 11/11/2024 11:03 AM EDTAttachments Note Date & Type Note Facility 12-06-2024 Telephone encounter Note Pt home calling for this med, previous pcp rx. Can you please send [facility] 12-06-2024 Miscellaneous Notes Pt home calling for this med, previous pcp rx. Can you please send documented in this encounter [facility] 11-11-2024 Note Shaji Esquivel 64 y.o. 1960 [...] second test should be considered NIL 10/08/2024 0.72743 IU/mL Final Mitogen Minus Nil 10/08/2024 2.45426 IU/mL Final TB1 Minus Nil 10/08/2024 -0.41689 0.00 - 0.34 IU/mL Final TB2 Minus Nil 10/08/2024 0.98709 0.00 - 0.34 IU/mL Final Interferon gamma [...] Unable To Ans (more content not included)... [facility] 11-11-2024 History of Present illness Narrative Shaji [...] second test should be considered NIL 10/08/2024 0.25863 IU/mL Final Mitogen Minus Nil 10/08/2024 2.20210 IU/mL Final TB1 Minus Nil 10/08/2024 -0.73976 0.00 - 0.34 IU/mL Final TB2 Minus Nil 10/08/2024 0.50971 0.00 - 0.34 IU/mL Final Interferon gamma [...] answer Stress: Patient Unable To Answer (07/13/2024) [employer] - Occupational Stress Questionnaire Feeling of Stress : Patient unable to answer Social Connections: Patient Unable To Answer (07/13/2024) Social Connection and Isolation Panel [NHANES] Frequency of Communication with Friends and Family: Patient unable to answer Frequency of Social Gatherings with Friends and Family: Patient unable to answer Attends [employer] Services: Patient unable to answer Active Member [...] AND ALLOW TO DISSOLVE AT BEDTIME . yifvphds-jdh-vummwlx fumarate 15 mg iron Tab Take 1 [...] for this visit. documented in this encounter [facility] 10-25-2024 Note Ameena Ruiz PM Patient Name: [...] answer Stress: Patient Unable To Answer (07/13/2024) [employer] - Occupational Stress Questionnaire Feeling of Stress : Patient unable to answer Social Connections: Patient Unable To Answer (07/13/2024) Social Connection and Isolation Panel [NHANES] Frequency of Communication with Friends and Family: Patient unable to answer Frequency of Social Gatherings with Friends and Family: Patient unable to answer Attends [employer] Services: Patient unable to answer Active Member [...] intact. Protective sensation is diminished using the [place]r monofilament. Dermatologic: The right great toenail [...] AUTHENTICATED BY ELIZABETH KIMBLE, ON 10/25/2024 11:10:27 [facility] 10-25-2024 History of Present illness Narrative Images [...] answer Stress: Patient Unable To Answer (07/13/2024) [employer] - Occupational Stress Questionnaire Feeling of Stress : Patient unable to answer Social Connections: Patient Unable To Answer (07/13/2024) Social Connection and Isolation Panel [NHANES] Frequency of Communication with Friends and Family: Patient unable to answer Frequency of Social Gatherings with Friends and Family: Patient unable to answer Attends [employer] Services: Patient unable to answer Active Member [...] intact. Protective sensation is diminished using the [place] P[place]r monofilament. Dermatologic: The right great toenail [...] Physician & Surgeon documented in this encounter [facility] 10-12-2024 History of Present illness Narrative MEDICATION RECONCILIATION COMPLETED USING REM MED SHEETS. MED SHEETS TITLED ACTIVE ORDERS OF 10/01/2024. MEDICATIONS NOT LISTED ON REM LIST MARKED FOR REVIEW. documented in this encounter [facility] 10-11-2024 History of Present illness Narrative Spoke to Camelia, review results. Faxed results to [phone]. documented in this encounter [facility] 09-21-2024 Evaluation + Plan note Associated Problem(s): Abnormal CT of the abdomen Incidental finding edematous appearance of duodenum infusional loop in upper abdomen probably nonspecific. She has met with Dr. Jones who ordered GI series with small bowel follow-through, deferred EGD for now. [facility] 09-21-2024 Miscellaneous Notes Associated Problem(s): Abnormal CT [...] Parkinson's disease increases fall risk. Lives in care home. Staff tries to have aide assist with walking all the time; patient sometimes up without alerting staff. 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 [...] and urine microalbumin documented in this encounter [facility] 09-21-2024 Evaluation + Plan note Associated Problem(s): Recurrent falls Multiple falls recently may have been due to E. coli UTI, treated with Keflex, completed today. Concern for interaction between Sinemet and olanzapine. She has followed up with psychiatry and they have stopped olanzapine. Shuffling gait with Parkinson's disease increases fall risk. Lives in care home. Staff tries to have aide assist with walking all the time; patient sometimes up without alerting staff. 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 - She has just completed physical therapy and is walking better - Wear closed footwear with non-slip bottom - No area rugs - Keep cords clear of walkways - Walk with staff assistance only [facility] 09-21-2024 Evaluation + Plan note Associated Problem(s): [...] - check updated A1c and urine microalbumin [facility] 09-21-2024 History of Present illness Narrative Assessment/Plan: [...] Parkinson's disease increases fall risk. Lives in care home. Staff tries to have aide assist with walking all the time; patient sometimes up without alerting staff. 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 [...] follow-up chronic conditions. She is accompanied by care home staff. Shaji is in good spirits today. [...] for now. Recurrent falls Completed PT 09/08/24. nursing home staff reports she is walking better. Denies [...] Zara Evans DO documented in this encounter [facility] 09-21-2024 Note Assessment/Plan: Type 2 diabetes mellitus [...] Parkinson's disease increases fall risk. Lives in care home. Staff tries to have aide assist with walking all the time; patient sometimes up without alerting staff. 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 [...] follow-up chronic conditions. She is accompanied by care home staff. Shaji is in good spirits today. [...] for now. Recurrent falls Completed PT 09/08/24. nursing home staff reports she is walking better. Denies [...] AUTHENTICATED BY ZARA EVANS, ON 09/21/2024 12:39:07 [facility] 09-15-2024 Telephone encounter Note LAST OV 07/29/24. NEXT OV 09/21/24. [facility] 09-15-2024 Miscellaneous Notes LAST OV 07/29/24. NEXT OV 09/21/24. documented in this encounter [facility] 09-09-2024 Note Shaji Esquivel 64 y.o. 1960 [...] Urine 07/19/2024 Cloudy (A) Clear Final Specific [place] 07/19/2024 1.028 (H) 1.005 - 1.025 Final [...] /hpf Final Mucus, (more content not included)... [facility] 09-09-2024 History of Present illness Narrative Shaji [...] Urine 07/19/2024 Cloudy (A) Clear Final Specific [place] 07/19/2024 1.028 (H) 1.005 - 1.025 Final [...] answer Stress: Patient Unable To Answer (07/13/2024) [employer] - Occupational Stress Questionnaire Feeling of Stress : Patient unable to answer Social Connections: Patient Unable To Answer (07/13/2024) Social Connection and Isolation Panel [NHANES] Frequency of Communication with Friends and Family: Patient unable to answer Frequency of Social Gatherings with Friends and Family: Patient unable to answer Attends [employer] Services: Patient unable to answer Active Member [...] total) on top of tongue nightly . ingxlxhh-fil-xfcmgzk fumarate 15 mg iron Tab Take 1 [...] for this visit. documented in this encounter [facility] 09-08-2024 History of Present illness Narrative Images from the original note were not included. [facility] DAILY TREATMENT NOTE/DISCHARGE Today's [...] Shaji mentioned that she had a birthday republican this past weekend. Otherwise, nothing new to report or updates to provide. Objective Treatments: Physical Therapy Exercise Log - 09/08/24 1011 OTHER Precautions/Contraindications Parkinson's disease, unspecified whether dyskinesia present, unspecified whether manifestations fluctuate (HCC). Frequent Falls. Notes Visit 8: 10:15-11:00 Vitals Eval Date: 08/02/2024. POC: 2x4 Therapeutic Exercise (60060) Intervention Access Code: [email or web address] URL: [email or web address] Date: 08/27/2024 Prepared by: Melissa Sena Exercises [...] and visual cues for completion. Neuro Re-Ed (98926) Intervention Discharge Summary/Goal Reassessment x45 mins Parameters [...] seated position throughout the day. Functional Activity (22386) Intervention Repeated STSs from chair with unilateral [...] Exercises Add more exercises? 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 Julianne Buck, PT State License, [id number] Cosigned by Shelley Maldonado PA-C at 09/14/2024 11:41 AM EDT documented in this encounter [facility] 09-06-2024 History of Present illness Narrative Documentation received for pt. Provider reviewed and signed. Faxed back to number provided and sent to [facility] to scan to pt chart. documented in this encounter [facility] 09-02-2024 History of Present illness Narrative Images from the original note were not included. [facility] DAILY TREATMENT NOTE Today's [...] Eval Date: 08/02/2024. POC: 2x4 Therapeutic Exercise (53515) Intervention Access Code: [email or web address] URL: [email or web address] Date: 08/27/2024 Prepared by: Melissa Sena Exercises [...] cues for completion Intervention -- Neuro Re-Ed (39809) Intervention Fwd ambulation over hockey sticks inside parallel bars for 2 laps to facilitate improved step length and foot clearance as well as improved dynamic balance with decreased UE support. Pt completing first lap with BUE support with progression to no UE support on second trial with pt demo'g improved ability to complete without UE support. Functional Activity (18163) Intervention Pt completing transfers this date with CGA-Danielle. Parameters Pt demos decreased activity tolerance with all activities requiring several seated rest breaks. Additional Exercises Add more exercises? Yes Gait Training (52826) Intervention Pt ambulating short distances throughout therapy [...] will complete the 5 times sit to dip stand loader 24 seconds or less without the use [...] at home. 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 History of Present Illness Date of Onset: [...] Parkinson's Disease, and subarachnoid hemorrhage, presented to [facility] ED from care home assisted living facility for evaluation of multiple falls that been progressively worsening over the past 2 weeks. No specific alleviating or aggravating factors. At the time of admission, per oncology rep, patient fell from chair hit back of [...] prevent aspiration which was determined by a MAINTENANCE ANALYST she used to see in the past, [...] above number. Soto Daly OTR/L STATE LICENSE, [id number] documented in this encounter [facility] 08-04-2024 Evaluation + Plan note Associated Problem(s): Recurrent falls Multiple falls recently may have been due to E. coli UTI, treated with Keflex, completed today. Concern for interaction between Sinemet and olanzapine. She has followed up with psychiatry and reduced olanzapine dose to 5 mg. Shuffling gait with Parkinson's disease increases fall risk. Lives in care home. Staff tries to have aide assist with walking all the time; patient sometimes up without alerting staff. 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 - She is beginning physical therapy - Wear closed footwear with non-slip bottom - No area rugs - Keep cords clear of walkways - Walk with staff assistance only [facility] 08-04-2024 Miscellaneous Notes Associated Problem(s): Recurrent falls Multiple falls recently may have been due to E. coli UTI, treated with Keflex, completed today. Concern for interaction between Sinemet and olanzapine. She has followed up with psychiatry and reduced olanzapine dose to 5 mg. Shuffling gait with Parkinson's disease increases fall risk. Lives in care home. Staff tries to have aide assist with walking all the time; patient sometimes up without alerting staff. 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 - She is beginning physical therapy - Wear closed footwear with non-slip bottom - No area rugs - Keep cords clear of walkways - Walk with staff assistance only documented in this encounter [facility] 08-02-2024 History of Present illness Narrative Images from the original note were not included. [facility] Physical Therapy Evaluation Today's [...] Caregiver and nurse who work at the care home ALF. History of Present Illness Subjective History: The patient, Shaji, is a 63 y.o. Female presenting to outpatient neurological physical therapy at [facility] on 08/02/2024 s/p a recent 4 day hospital stay for a fall that resulted in hitting the back of her head on a chair. Per the patient's ED note from 07/19, Shaji has a past medical history of hypertension, hyperlipidemia, diabetes, Parkinson's Disease, and subarachnoid hemorrhage, presents to the emergency department from care home assisted living facility for evaluation of multiple falls that been progressively worsening over the past 2 weeks. No specific alleviating or aggravating factors. Today, per oncology rep, patient fell from chair hit back of [...] prevent aspiration which was determined by a MAINTENANCE ANALYST she used to see in the past, [...] Social Support: Additional Social Support: Caregivers (RN). [employer], social, or cultural considerations to be made aware of before starting treatment: No Home Environment Current Home Environment: Setup: single story house (nursing home) Entry: no steps First floor: bedroom and [...] fall in the last 12 months: Yes [employer], social, or cultural considerations to be made [...] Transfers: Sit to stand: Insufficient forward flexion, [place] on UE, Increased energy expenditure and Min A Stand to sit: Min A, [place] on UE, Insufficient forward flexion, Decreased eccentric control and Increased energy expenditure Stand/squat pivot: Insufficient forward flexion, [place] on UE and Increased energy expenditure Sitting [...] Treatments: Physical Therapy Exercise Log - 08/03/24 0461 OTHER Precautions/Contraindications Parkinson's disease, unspecified whether dyskinesia present, unspecified whether manifestations fluctuate (HCC). Frequent Falls. Notes Visit 1: 12:30-1:15 Vitals Eval Date: 08/02/2024. POC: 2x4 Neuro Re-Ed (56826) Intervention Initial evaluation w/ education only x45 mins PT Treatment Times Neuro Re-Ed Total Time 45 12:30-1:15 Direct Treatment Time 45 Total Treatment Time 45 Treatment Plan: Frequency of Visits: twice per week Duration: 4 weeks Interventions: Therapeutic Exercise (68598), Neuromuscular Re-Education (56201), Manual Therapy (70567), Therapeutic/ Functional Activities (66699), Gait Training (86843), Self Care (01410), and Canalith Repositioning Treatment (15785) Rehab Potential: good Physical Therapy Neuro Goals: [...] will complete the 5 times sit to dip stand loader 24 seconds or less without the use [...] at this time were answered. CPT Code 62398 Low 98424 Moderate 98315 High History 0 1-2 3+ Comorbidities: anxiety, [...] Clinical Impression: . Shaji Esquivel presents to [facility] outpatient neurological rehab services s/p experiencing multiple [...] to 09/28/2024. Julianne Buck, TAYLER State License, [id number] documented in this encounter [facility] 07-29-2024 History of Present illness Narrative Assessment/Plan: Recurrent falls Multiple falls recently may have been due to E. coli UTI, treated with Keflex, completed today. Concern for interaction between Sinemet and olanzapine. She has followed up with psychiatry and reduced olanzapine dose to 5 mg. Shuffling gait with Parkinson's disease increases fall risk. Lives in care home. Staff tries to have aide assist with walking all the time; patient sometimes up without alerting staff. 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 [...] Zara Evans DO documented in this encounter [facility] 07-29-2024 Note Assessment/Plan: Recurrent falls Multiple falls recently may have been due to E. coli UTI, treated with Keflex, completed today. Concern for interaction between Sinemet and olanzapine. She has followed up with psychiatry and reduced olanzapine dose to 5 mg. Shuffling gait with Parkinson's disease increases fall risk. Lives in care home. Staff tries to have aide assist with walking all the time; patient sometimes up without alerting staff. 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 [...] AUTHENTICATED BY ZARA EVANS, ON 08/04/2024 02:35:57 [facility] 07-27-2024 Note Ameena Ruiz PM Patient Name: [...] answer Stress: Patient Unable To Answer (07/13/2024) [employer] - Occupational Stress Questionnaire Feeling of Stress : Patient unable to answer Social Connections: Patient Unable To Answer (07/13/2024) Social Connection and Isolation Panel [NHANES] Frequency of Communication with Friends and Family: Patient unable to answer Frequency of Social Gatherings with Friends and Family: Patient unable to answer Attends [employer] Services: Patient unable to answer Active Member [...] intact. Protective sensation is diminished using the Bethel Piotr monofilament. Dermatologic: The right great toenail [...] Kimble, BHUMI, MS (more content not included)... [facility] 07-27-2024 History of Present illness Narrative Images [...] answer Stress: Patient Unable To Answer (07/13/2024) [employer] - Occupational Stress Questionnaire Feeling of Stress : Patient unable to answer Social Connections: Patient Unable To Answer (07/13/2024) Social Connection and Isolation Panel [NHANES] Frequency of Communication with Friends and Family: Patient unable to answer Frequency of Social Gatherings with Friends and Family: Patient unable to answer Attends [employer] Services: Patient unable to answer Active Member [...] intact. Protective sensation is diminished using the Bethel Piotr monofilament. Dermatologic: The right great toenail [...] Physician & Surgeon documented in this encounter [facility] 07-23-2024 Note HMS DISCHARGE SUMMAR Y Shaji Esquivel Admitted: 07/19/2024 Discharge Date: 07/25/24 PCP Handoff Recommended Outpatient Testing Follow-up with GI Follow up with psychiatry Results Pending At Discharge None Clinical Summary Shaji Esquivel is a 63 y.o. female patient of Zara Evans DO with history of Parkinson's disease, schizophrenia, HTN, HLD, GERD, NIDDM2, who presented to [facility] on 07/19/2024 with frequent falls. Frequent [...] Remeron Reached out to Dr. 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 [facility] 07-23-2024 Note [facility] PROGRESS NOTE Assessment and Plan Shaji Esquivel is a 63 y.o. female patient of Zara Evans DO with history of Parkinson's disease, schizophrenia, HTN, HLD, GERD, NIDDM2, who presented to [facility] on 07/19/2024 with frequent falls. Frequent [...] Remeron Reached out to Dr. Sabillon at [facility] due to interaction with Sinemet and [...] hospitalization due to: awaiting acceptance back to care home Discharge location: return to care home Quality Measures DVT prophylaxis: IPCs Contreras catheter: [...] AUTHENTICATED BY SHELLEY MALDONADO, ON 07/23/2024 11:54:59 [facility] 07-22-2024 Note [facility] PROGRESS NOTE Assessment and Plan Shaji Esquivel is a 63 y.o. female patient of Zara Evans DO with history of Parkinson's disease, schizophrenia, HTN, HLD, GERD, NIDDM2, who presented to [facility] on 07/19/2024 with frequent falls. Frequent [...] Remeliudn Reached out to Dr. Sabillon at [facility] due to interaction with Sinemet and [...] AUTHENTICATED BY SHELLEY MALDONADO, ON 07/22/2024 12:51:24 [facility] 07-21-2024 Note [facility] PROGRESS NOTE Assessment and Plan Shaji Esquivel is a 63 y.o. female patient of Zara Evans DO with history of Parkinson's disease, schizophrenia, HTN, HLD, GERD, NIDDM2, who presented to [facility] on 07/19/2024 with frequent falls. Frequent Fall Parkinson's Disease Balance Disorder Continue Sinemet. Sinemet has known interaction with Zyprexa, which may worsen PD symptoms. Psychiatrist plans to switch her to Nuplazid as outpatient. See below. Fall precautions PT/OT Care management Follows with Dr. Ortiz for neurology Schizophrenia Continue Zyprexa and Remeron Reached out to Dr. Sabillon at [facility] due to interaction with Sinemet and [...] therapy evals Discharge location: likely return to care home Quality Measures DVT prophylaxis: IPCs Conterras catheter: absent Subjective No acute events noted [...] AUTHENTICATED BY SHELLEY MALDONADO, ON 07/21/2024 11:29:18 [facility] 07-20-2024 Note HMS PROGRESS NOTE Assessment and Plan Shaji Esquivel is a 63 y.o. female patient of Zara Evans DO with history of Parkinson's disease, schizophrenia, HTN, HLD, GERD, NIDDM2, who presented to [facility] on 07/19/2024 with frequent falls. Frequent Fall Parkinson's Disease Balance Disorder Continue Sinemet. Sinemet has known interaction with Zyprexa, which may worsen PD symptoms. Psychiatrist plans to switch her to Nuplazid as outpatient. See below. Fall precautions PT/OT Care management Follows with Dr. Ortiz for neurology Schizophrenia Continue Zyprexa and Remeron Reached out to Dr. Sabillon at [facility] due to interaction with Sinemet and [...] therapy evals Discharge location: likely return to care home Quality Measures DVT prophylaxis: IPCs Contreras catheter: [...] AUTHENTICATED BY SHELLEY MALDONADO, ON 07/20/2024 11:24:59 [facility] 07-19-2024 Note HMS HISTORY AND PHYS ICAL -- [facility] Patient Name: Shaji Esquivel : 1960 MR #: [id number] Admit Date: 07/19/2024 Physicians: Zara Evans DO (Family); No ref. provider found (Referring) Shaji Esquivel is a 63 y.o. female patient of Zara Evans DO with history of Parkinson's disease, schizophrenia, HTN, HLD, GERD, NIDDM2, who presented to [facility] on 07/19/2024 with frequent falls. Frequent Fall Parkinson's Disease Balance Disorder Continue Sinemet. Sinemet has known interaction with Zyprexa, which may worsen PD symptoms. Psychiatrist plans to switch her to Nuplazid as outpatient. See below. Fall precautions PT/OT Care management Follows with Dr. Ortiz for neurology Schizophrenia Continue Zyprexa and Remeron Reached out to Dr. Sabillon at [facility] due to interaction with Sinemet and [...] HTN, HLD, GERD, NIDDM2, who presented to [facility] on 07/19/2024 with frequent falls. Progressively [...] AUTHENTICATED BY KIRILL CRANDALL ON 07/19/2024 10:34:59 [facility] 07-15-2024 Evaluation + Plan note Associated Problem(s): Primary osteoarthritis involving multiple joints Voltaren gel 4 times daily to painful joints including bilateral hips and knees. [facility] 07-15-2024 Miscellaneous Notes Associated Problem(s): Primary osteoarthritis [...] Parkinson's disease increases fall risk. Lives in care home. Staff tries to have aide assist with walking all the time; patient sometimes up without alerting staff. 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 - Wear closed footwear with non-slip bottom - No area rugs - Keep cords clear of walkways - Walk with staff assistance documented in this encounter [facility] 07-15-2024 Evaluation + Plan note Associated Problem(s): Recurrent falls Mechanical fall 07/09/2024 when stepping up into a van. She suffered contusions to her right hip and right knee, but no fractures per x-rays in ER. Continue Voltaren gel to painful areas. Shuffling gait with Parkinson's disease increases fall risk. Lives in care home. Staff tries to have aide assist with walking all the time; patient sometimes up without alerting staff. 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 - Wear closed footwear with non-slip bottom - No area rugs - Keep cords clear of walkways - Walk with staff assistance [facility] 07-13-2024 Note Assessment/Plan: Recurrent falls Mechanical fall 07/09/2024 when stepping up into a van. She suffered contusions to her right hip and right knee, but no fractures per x-rays in ER. Continue Voltaren gel to painful areas. Shuffling gait with Parkinson's disease increases fall risk. Lives in care home. Staff tries to have aide assist with walking all the time; patient sometimes up without alerting staff. 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 [...] acute visit for fall. Patient is a care home resident and presents with nursing staff. Patient [...] AUTHENTICATED BY ZARA EVANS, ON 07/15/2024 07:40:58 [facility] 07-13-2024 History of Present illness Narrative Assessment/Plan: Recurrent falls Mechanical fall 07/09/2024 when stepping up into a van. She suffered contusions to her right hip and right knee, but no fractures per x-rays in ER. Continue Voltaren gel to painful areas. Shuffling gait with Parkinson's disease increases fall risk. Lives in care home. Staff tries to have aide assist with walking all the time; patient sometimes up without alerting staff. 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 - Wear closed footwear with non-slip bottom - No area rugs - Keep cords clear of walkways - Walk with staff assistance Primary osteoarthritis involving multiple joints Voltaren gel 4 times daily to painful joints including bilateral hips and knees. Subjective: Shaij Esquivel is a 63 y.o. female Chief Complaint Patient presents with Fall Fall on Friday, no fracture per ED imaging. Complaining of left hip pain. Patient presents for acute visit for fall. Patient is a care home resident and presents with nursing staff. Patient [...] Zara Evans DO documented in this encounter [facility] 07-09-2024 Emergency department Note Images from the [...] Alexys Moran 07/09/2024 12:15 PM Dictation workstation: [id number] XR hip right with pelvis when performed 2 or 3 views Final Result No acute fracture seen in the right hip. If there is persistent clinical concern CT can be performed for further evaluation MACRO: None Signed by: Alexys Moran 07/09/2024 12:14 PM Dictation workstation: [id number] Pt course which Intervention and treatment included [...] knee and lower leg, initial encounter HYDROcodone-acetaminophen (Erie) 5-325 mg tablet diclofenac sodium (Voltaren) 1 % gel Knee Brace, Hinged --- 07/09/24 at 11:24 AM - Miles He DO Internal & Emergency Medicine Miles He DO Resident 07/09/24 1221 documented in this encounter [facility] Work Phone: 07-09-2024 Physician Emergency department [...] Alexys Moran 07/09/2024 12:15 PM Dictation workstation: [id number] XR hip right with pelvis when performed 2 or 3 views Final Result No acute fracture seen in the right hip. If there is persistent clinical concern CT can be performed for further evaluation MACRO: None Signed by: Alexys Moran 07/09/2024 12:14 PM Dictation workstation: [id number] Pt course which Intervention and treatment included [...] knee and lower leg, initial encounter HYDROcodone-acetaminophen (Erie) 5-325 mg tablet diclofenac sodium (Voltaren) 1 % gel Knee Brace, Hinged --- 07/09/24 at 11:24 AM - Miles He DO Internal & Emergency Medicine Miles He DO Resident 07/09/[address] [facility] Work Phone: 06-28-2024 History of Present illness Narrative Subjective Patient ID: Shaji Esquivel is a 63 y.o. female who presents for Follow-up (3 MONTH/Pt states she is not feeling well today ). HPI Patient is here today for 3 mo follow up with care home staff member. Pt has finished PT. Pt [...] is not feeling well, has no appetite. nursing home staff says that she always generally has [...] 2. [facility] - on remeron - [...] [R26.89] Balance disorder documented in this encounter [facility] Work Phone: 06-24-2024 Evaluation + Plan note Associated Problem(s): Recurrent falls Shuffling gait with Parkinson's disease increases fall risk. Lives in care home. Staff tries to have aide assist with walking all the time; patient sometimes up without alerting staff. 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 - Wear closed footwear with non-slip bottom - No area rugs - Keep cords clear of walkways - Walk with staff assistance [facility] 06-24-2024 Miscellaneous Notes Associated Problem(s): Recurrent falls Shuffling gait with Parkinson's disease increases fall risk. Lives in care home. Staff tries to have aide assist with walking all the time; patient sometimes up without alerting staff. 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 [...] CMP q6 months documented in this encounter [facility] 06-24-2024 Evaluation + Plan note Associated Problem(s): Schizophrenia (HCC) Follows with psych, Dr. Estrada. On benztropine, mirtazapine, olanzapine. Nurse reports intermittent behaviors, but manageable. [facility] 06-24-2024 Evaluation + Plan note Associated Problem(s): Parkinson's disease (HCC) Follows with neurologist - Dr. Ortiz. On carbidopa-levodopa 25-100, 2 tablets TID. With shuffling gait increasing fall risk. Walks without device at home, but with aide present. No concerns today. [facility] 06-24-2024 Evaluation + Plan note Associated Problem(s): [...] months, will check A1c and urine microalbumin [facility] 06-24-2024 Evaluation + Plan note Associated Problem(s): Hypertension Goal <140/90. Current therapy with amlodipine 2.5 mg daily. BP 134/83 today. Not on ACEi or ARB, though diabetic. Will discuss switching in the future for renal protection. - Check CMP q6 months [facility] 06-23-2024 Note Assessment/Plan: Hypertension Goal <140/90. [...] Parkinson's disease increases fall risk. Lives in care home. Staff tries to have aide assist with walking all the time; patient sometimes up without alerting staff. 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 [...] Accompanied by her nurse and the nurse enterprise services manager from her care home. Previous PCP Dr. Jacinto at . PMH: HTN, HLD, SAH, DM2, hypothyroidism, GERD, CKD, schizophrenia, Parkinson's. DM Taking metformin, empagliflozin, januvia, and glipizide Urology Physician - [facility] - Dr. Kimble Parkinson's On levodopa-carbidopa Neurologist - Dr. Ortiz Schizophrenia Psych -Dr. Estrada Residential Sales Manager Dr. Kimble Symptoms started 2 weeks ago. [...] chronic condition(s). Zara Evans, DO AUTHENTICATED BY ZAAR EVANS, ON 06/24/2024 01:29:15 [facility] 06-23-2024 History of Present illness Narrative Assessment/Plan: [...] Parkinson's disease increases fall risk. Lives in care home. Staff tries to have aide assist with walking all the time; patient sometimes up without alerting staff. 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 [...] Accompanied by her nurse and the nurse enterprise services manager from her care home. Previous PCP Dr. Jacinto at . PMH: HTN, HLD, SAH, DM2, hypothyroidism, GERD, CKD, schizophrenia, Parkinson's. DM Taking metformin, empagliflozin, januvia, and glipizide Urology Physician - [facility] - Dr. Kimble Parkinson's On levodopa-carbidopa Neurologist - Dr. Ortiz Schizophrenia Psych -Dr. Estrada Residential Sales Manager Dr. Kimble Symptoms started 2 weeks ago. [...] Zara Evans DO documented in this encounter [facility] 04-27-2024 Note Ameena Ruiz PM Patient Name: [...] intact. Protective sensation is diminished using the Bethel Piotr monofilament. Dermatologic: The right great toenail [...] AUTHENTICATED BY ELIZABETH KIMBLE, ON 04/27/2024 10:21:20 [facility] 04-27-2024 History of Present illness Narrative Images [...] intact. Protective sensation is diminished using the Bethel Piotr monofilament. Dermatologic: The right great toenail [...] Physician & Surgeon documented in this encounter [facility] 03-29-2024 History of Present illness Narrative Subjective Patient ID: Shaji Esquivel is a 63 y.o. female who presents for Follow-up (3 month) and Fall. Fall Patient is here today for 3 mo follow up Pt reports that she has generalized pain everywhere. Is here today with care home staff who state that she always complains [...] 2. [facility] - on remeron - [...] or fluctuating manifestations documented in this encounter [facility] Work Phone: 02-16-2024 Note Ameena Ruiz [...] intact. Protective sensation is diminished using the Bethel Piotr monofilament. Dermatologic: The right great toenail [...] AUTHENTICATED BY ELIZABETH KIMBLE, ON 02/16/2024 04:02:37 [facility] 02-16-2024 History of Present illness Narrative Images [...] intact. Protective sensation is diminished using the Bethel Piotr monofilament. Dermatologic: The right great toenail [...] Physician & Surgeon documented in this encounter [facility] 02-03-2024 Note [facility] [address] (11) [facility] [address] [facility] [id number] Shaji Esquivel is a 63 y.o. female [...] AUTHENTICATED BY SACHIN MORALES, ON 02/03/2024 13:07:29 [facility] 02-03-2024 History of Present illness Narrative [address] (11) [facility] [address] [facility] [id number] Shaji Esquivel is a 63 y.o. female [...] Sachin Morales MD documented in this encounter [facility] 01-29-2024 Hospital Discharge instructions Darin Trujillo MD - 01/29/2024 8:46 AM EDT Ice MOTRIN FOR PAIN AND SWELLING DAVID WRAP TO KNEE DENTAL FOLLOW UP FOR INCISOR INJRY ORTHO FOLLOW UP FOR CHRONIC RIGHT ULNA SUBLUXATION The following attachments cannot be sent through Care Everywhere.Minor Contusion ED (Bulgarian)documented in this encounter [facility] Work Phone: 01-29-2024 Emergency department Note [...] Comments: Patient is awake alert coherent cooperative [place] Coma Scale 15 in no acute discomfort [...] Pito Kaur 01/29/2024 8:37 AM Dictation workstation: [id number] XR forearm right 2 views Final Result No acute fracture. Persistent dorsal subluxation of the distal ulna in relation to the distal radius; correlate clinically. Signed by: Pito Kaur 01/29/2024 8:33 AM Dictation workstation: [id number] Procedures Medical Decision Making Upper Sorbian diagnosis included forearm fracture forearm contusion right [...] right knee, initial encounter Subluxation of tooth Drain Trujillo MD 01/29/24 0854 Darin Trujillo MD 01/29/24 0855 documented in this encounter [facility] Work Phone: 01-29-2024 Physician Emergency department [...] Pito Kaur 01/29/2024 8:37 AM Dictation workstation: [id number] XR forearm right 2 views Final Result No acute fracture. Persistent dorsal subluxation of the distal ulna in relation to the distal radius; correlate clinically. Signed by: Pito Kaur 01/29/2024 8:33 AM Dictation workstation: [id number] Procedures Medical Decision Making Upper Sorbian diagnosis included forearm fracture forearm contusion right [...] 01/29/24 0854 Darin Trujillo MD 01/29/24 0855 [facility] Work Phone: 01-21-2024 Instructions Huy Vasquez [...] with any questions. documented in this encounter [facility] 01-21-2024 Note Neurosurgery Progres s Note Assessment/Plan: [...] significant intellectual impairment who lives at a care home under the guardianship of the [facility]. 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 No garcia AUTHENTICATED BY HUY VASQUEZ, ON 01/21/2024 12:48:50 [facility] 01-21-2024 History of Present illness Narrative Neurosurgery [...] significant intellectual impairment who lives at a care home under the guardianship of the state. 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 No garcia documented in this encounter [facility] 01-08-2024 Instructions Mina Ortiz MD - 01/08/2024 [...] around 12 months. documented in this encounter [facility] 01-08-2024 History of Present illness Narrative Neurology Outpatient Consult [facility] [address] [place] [address] (phone)/[phone] (fax) Patient: Shaji Esquivel Date of : [...] on plantar stimulation. documented in this encounter [facility] 01-08-2024 Note Neurology Outpatient Consult [facility] [address] [place] [address] (phone)/[phone] (fax) Patient: Shaji Esquivel Date of : [...] carbidopa-levodopa (Sinemet) 25-100 (more content not included)... [facility] 12-29-2023 History of Present illness Narrative Subjective [...] fluctuating manifestations (Multi) documented in this encounter [facility] Work Phone: 12-24-2023 Note [address] (11) [facility] [address] [facility] [phone] Shaji Esquivel is a 63 y.o. [...] AUTHENTICATED BY SACHIN MORALES, ON 12/24/2023 10:08:02 [facility] 12-24-2023 History of Present illness Narrative [address] (11) [facility] [address] [facility] [phone] Shaji Esquivel is a 63 y.o. female [...] Sachin Morales MD documented in this encounter [facility] 12-17-2023 History of Present illness Narrative Subjective [...] -PT/OT referrals placed documented in this encounter [facility] Work Phone: 12-16-2023 Note Trauma Follow Up Not e Patient Name: Shaji Esquivel [facility]: [id number] [id number] Chief Complaint: [place] CHIN: 63-year-old female with a history of a [...] AUTHENTICATED BY KIRK GODFREY, ON 12/16/2023 14:14:28 [facility] 12-16-2023 History of Present illness Narrative Trauma Follow Up Note Patient Name: Shaji Esquivel MR #: [id number] Chief Complaint: AK CHIN: 63-year-old female with a history of a [...] no acute issues. documented in this encounter [facility] 12-05-2023 Note Neurosurgery Inpatie nt Follow-up 12/05/2023 Vel Benavidez MD [facility] Patient: Shaji Esquivel Date of : [...] AUTHENTICATED BY VEL BENAVIDEZ, ON 12/05/2023 12:30:03 [facility] 12-04-2023 Note Pre-Procedure Physic ruthy Note for Procedures with Moderate or Deep Sedation Patient Name: Shaji Esquivel MR #: [id number] : 1960 Informed Consent process completed. I have reviewed the H&P and there are no changes. Heart, Lungs, and Airway assessment completed. Sedation Plan: Moderate Pre-Sedation Assessment ASA Classification: ASA 3: A patient with severe systemic disease. Mallampati Classification: Class II: Partial uvula and soft palate are visualized 12/04/2023 3:09 PM Duc Jaramillo M.D. Attending Physician [facility] 12/04/2023 Portions of this note may have been dictated utilizing voice recognition software. Unfortunately this leads to occasional typographical errors. If questions arise please do not hesitate to contact my office for clarification. AUTHENTICATED BY DUC JARAMILLO, ON 12/04/2023 15:09:56 [facility] 10-14-2023 History of Present illness Narrative [...] intact. Protective sensation is diminished using the Bethel Piotr monofilament. Dermatologic: The right great toenail [...] Physician & Surgeon documented in this encounter [facility] 07-15-2023 History of Present illness Narrative Images [...] intact. Protective sensation is diminished using the [place] Piotr monofilament. Dermatologic: The right great toenail [...] examination, type 2 DM, encounter for ([facility]) 2. Diabetic peripheral neuropathy ([facility]) 3. Onychodystrophy 4. Onychomycosis 5. Pain due [...] Physician & Surgeon documented in this encounter [facility] 06-25-2023 Telephone encounter Note I called Fatuma at [phone]. She gave me the fax number of [phone]> Fax sent. She stated understanding. [facility] 06-25-2023 Miscellaneous Notes I called Fatuma at [phone]. She gave me the fax number of [phone]> Fax sent. She stated understanding. documented in this encounter [facility] 06-23-2023 Instructions Mina Ortiz MD - 06/23/2023 [...] around 6 months. documented in this encounter [facility] 06-23-2023 History of Present illness Narrative Neurology Outpatient Consult [facility] [address] [place] [address] (phone)/[phone] (fax) Patient: Shaji Esquivel Date of : [...] on plantar stimulation. documented in this encounter [facility] 04-21-2023 History of Present illness Narrative Subjective Patient ID: Shaji Esquivel is a 62 y.o. female who presents for Establish Care (RADIO PROGRAM CHECKER/EST CARE). HPI Patient is a 62 y.o. care home patient who is here today to establish care. Patient has a pmhx of DMII, HTN, HLD, CKD, Hypothyroidism, Schizophrenia, Parkinsons Disease, GERD. She sees dr Arteaga at [facility] as well as Dr Ortiz for the [...] unspecified type (CMS/HCC) documented in this encounter [facility] Work Phone: 12-19-2022 Instructions Mina Ortiz [...] around 6 months documented in this encounter [facility] 12-19-2022 History of Present illness Narrative Neurology Outpatient Consult [facility] [address] [place] [address] (phone)/[phone] (fax) Patient: Niva Eugenia Smail Date of [...] or postural instability. documented in this encounter [facility] 11-25-2022 History of Present illness Narrative Patient [...] resume skilled PT within 30 days. [facility] Work Phone: 08-07-2022 History of Present illness Narrative Patient confirmed name and date of this session. Gait belt throughout.Pt with significant improvements in ROM with all activities especially august amb, side steps, HS curls. SBA-CGA throughout which is also a progression. Mod visual, tactile, verbal cues to perform exercises in correct plane. Less rest breaks required compared to previous sessions. [facility] Work Phone: 08-01-2022 Instructions Mina Ortiz MD [...] around 6 months. documented in this encounter [facility] 08-01-2022 History of Present illness Narrative Neurology Outpatient Consult [facility] [address] [place] [address] (phone)/[phone] (fax) Patient: Shaji Esquivel Date of : [...] or postural instability. documented in this encounter [facility] Evaluation note Diagnosis Other symptoms and signs [...] unspecified type (CMS/HCC) documented in this encounter [facility] Work Phone: Evaluation note* Diagnosis Parkinson disease Paralysis agitans [facility] Paralysis [facility]itans [facility] Diagnosis Encounter for screening mammogram for malignant neoplasm of breast documented in this encounter [facility] Work Phone: Evaluation note* Diagnosis Encounter for screening mammogram for malignant neoplasm of breast documented in this encounter [facility] Work Phone: Evaluation note* Diagnosis Comprehensive [...] or fluctuating manifestations documented in this encounter [facility] Work Phone: Evaluation note* Diagnosis Onychomycosis- [...] wrist, initial encounter documented in this encounter [facility] Work Phone: Evaluation note* Diagnosis Parkinson disease (HCC) Paralysis agitans [facility] Diagnosis Parkinson's disease with fluctuating manifestations, unspecified whether dyskinesia present (Multi)- Primary Subarachnoid hemorrhage (Multi) Subarachnoid hemorrhage documented in this encounter [facility] Work Phone: Evaluation note* Diagnosis Primary [...] fluctuating manifestations (Multi) documented in this encounter [facility] Work Phone: Evaluation note* Diagnosis Subluxation of distal end of right ulna, subsequent encounter- Primary Contusion of right forearm, initial encounter Contusion of right knee, initial encounter Subluxation of tooth Other specified disorders of the teeth and supporting structures documented in this encounter [facility] Work Phone: Evaluation note* Diagnosis Other closed fracture of distal end of right ulna, initial encounter- Primary documented in this encounter [facility] Work Phone: Evaluation note* Diagnosis Primary [...] manifestations Balance disorder documented in this encounter [facility] Work Phone: Evaluation note* Diagnosis Fall, initial encounter- Primary Contusion of right knee and lower leg, initial encounter documented in this encounter [facility] Work Phone: Evaluation note* Diagnosis Primary [...] of right foot documented in this encounter [facility] note* Diagnosis Primary hypertension- Primary Unspecified essential [...] falls Multiple falls documented in this encounter [facility] note* Diagnosis Primary hypertension- Primary Unspecified essential [...] involving multiple joints documented in this encounter [facility] note* Diagnosis Primary hypertension- Primary Unspecified essential hypertension Type 2 diabetes mellitus without complication, without long-term current use of insulin (HCC) Parkinson's disease, unspecified whether dyskinesia present, unspecified whether manifestations fluctuate (HCC) Schizophrenia, unspecified type (HCC) Recurrent falls Recurrent falls- Primary Primary osteoarthritis involving multiple joints Recurrent falls- Primary [facility] Diagnosis Primary hypertension- Primary Unspecified essential hypertension Type 2 diabetes mellitus without complication, without long-term current use of insulin (HCC) Parkinson's disease, unspecified whether dyskinesia present, unspecified whether manifestations fluctuate (HCC) Schizophrenia, unspecified type (HCC) Recurrent falls Recurrent falls- Primary Primary osteoarthritis involving multiple joints Recurrent falls- Primary Frequent falls- Primary Parkinson's disease (HCC) Paralysis agitans documented in this encounter [facility] note* Diagnosis Primary hypertension- Primary Unspecified essential [...] Frequent falls documented in this encounter [facility] note* Diagnosis Primary hypertension- Primary Unspecified essential hypertension Type 2 diabetes mellitus without complication, without long-term current use of insulin (HCC) Parkinson's disease, unspecified whether dyskinesia present, unspecified whether manifestations fluctuate (HCC) Schizophrenia, unspecified type (HCC) Recurrent falls Recurrent falls- Primary Primary osteoarthritis involving multiple joints Recurrent falls- Primary Constipation, unspecified constipation type- Primary Frequent falls documented in this encounter [facility] note* Diagnosis Primary hypertension- Primary Unspecified essential [...] Frequent falls documented in this encounter [facility] note* Diagnosis Primary hypertension- Primary Unspecified essential [...] Frequent falls documented in this encounter [facility] note* Diagnosis Primary hypertension- Primary Unspecified essential [...] Frequent falls documented in this encounter [facility] note* Diagnosis Primary hypertension- Primary Unspecified essential [...] joints Frequent falls [facility] Primary hypertension- Primary Unspecified essential [...] area, including retroperitoneum [facility]* Diagnosis Primary hypertension- Primary Unspecified essential [...] area, including retroperitoneum [facility] Primary hypertension- Primary Unspecified essential [...] influencing health status [facility] Primary hypertension- Primary Unspecified essential [...] area, including retroperitoneum [facility]* Diagnosis Primary hypertension- Primary Unspecified essential [...] insulin (HCC)- Primary [facility]* Diagnosis Primary hypertension- Primary Unspecified essential [...] of right foot [facility]* Diagnosis Primary hypertension- Primary Unspecified essential [...] when considering positive factors including support in care home with barriers such as understanding of exercises. The pt verbalized understanding and agreement to goals and POC. Thank you for this referral and please call [phone] with any questions or concerns. * Clinical Presentation: Stable and/or uncomplicated characteristics. * Level of Complexity: low * Problem List: activity limitations, ADLs/IADLs/self care skills, balance, decreased functional level, decreased knowledge of HEP, fall risk, flexibility, gait/locomotion, range of motion/joint mobility, strength and transfers. [facility] Work Phone: History of Present illness Narrative* Patient confirmed name and date of this session. * Pt tends to turn with side steps to L indicating potentially more weakness of L hip abductors vs R.Max verbal and visual cues for all activities. She demos very short steps bkwd despite cues. She does c/o B knee pain throughout session. [facility] Work Phone: History of Present illness Narrative* [...] balance for reduced risk of falls. [facility] Work Phone: History of Present illness Narrative* [...] with STS d/t weakness of LEs. [facility] Work Phone: History of Present illness Narrative* Patient confirmed name and date of this session. Gait belt throughout. * Pt requires max VCs and encouragement throughout d/t fear of falling. Able to perform multiple activities outside // bars to further challenge balance. HAND EDGER with side steps in order to keep pt in proper plane and avoid hip ER. Improved compliance with w/c mobilization activities. [facility] Work Phone: History of Present illness Narrative* [...] falling and weakness of glute med R>L. [facility] Work Phone: History of Present illness Narrative* Tracy Hilliard APRN-CLERK GENERAL OFFICE - 02/05/2024 10:50 AM EDT Subjective Patient [...] needed -Ice 2for swelling [facility] instructions* Attachments The following attachments cannot be sent through Care Everywhere. * Minor Contusion ED (Bulgarian) * Taking care of bruises (Bulgarian) * Preventing Falls ED (Bulgarian) [facility] Reason for referral (narrative)* Consultation (Routine) - Authorized Specialty Diagnoses / Procedures Referred By Jess ayon Referred To Contact Primary Care Procedures Follow Up In Primary Care - Established Rafa Jacinto DO [address] [facility] [place] [phone] Referral ID Status Reason Start Date Expiration Date V isits Requested Visits Authorized [id number] Authorized 04/21/2023 04/20/2024 1 1 * Imaging (Routine) - Authorized Specialty Diagnoses / Procedures Referred By Jess ayon Referred To Contact Radiology Diagnoses Encounter for screening mammogram for malignant neoplasm of breast Procedures BI mammo bilateral screening tomosynthesis Rafa Jacinto DO [address] [facility] [place] [address] Referral ID Status Reason Start Date Expiration Date Visits Requested Visits Authorized [id number] Authorized Perform Procedure 3 04/20/2024 1 1 [facility] Work Phone: Reason for referral (narrative)* Consultation (Routine) - Pending Review Specialty Diagnoses / Procedures Referred By Contac t Referred To Contact Speech Pathology / Speech Therapy Diagnoses Parkinson's disease with fluctuating manifestations, unspecified whether dyskinesia present (Multi) Tracy Hilliard APRN-CNP [address] [facility] [place] [phone] Referral ID Status Reason Start Date Expiration Date Visits Requested Visits Authorized [id number] Pending Review Specialty Services Required 12/17/2023 12/16/2024 1 1 * Consultation (Routine) - Pending Review Specialty Diagnoses / Procedures Referred By Contac t Referred To Contact Occupational Therapy Diagnoses Parkinson's disease with fluctuating manifestations, unspecified whether dyskinesia present (Multi) Tracy Hilliard APRN-CNP [address] [place] [phone] Referral ID Status Reason Start Date Expiration Date Visits Requested Visits Authorized [id number] Pending Review Specialty Services Required 12/17/2023 12/16/2024 1 1 * Consultation (Routine) - Pending Review Specialty Diagnoses / Procedures Referred By Contac t Referred To Contact Physical Therapy Diagnoses Parkinson's disease with fluctuating manifestations, unspecified whether dyskinesia present (Multi) Tracy Hilliard APRN-CNP [address] [facility] [place] [phone] Referral ID Status Reason Start Date Expiration Date Visits Requested Visits Authorized [id number] Pending Review Specialty Services Required 12/17/2023 12/16/2024 1 1 [facility] Work Phone: reason for visit Narrative* Initial Evaluation . Dx: R29.6. * [facility]: reason for visit Narrative* Initial Evaluation . Dx: R29.6. * [facility] Work Phone: Rejuyv for visit Narrative* Initial Evaluation . Dx: R29.6. * [facility] Work Phone: Rejuvw for visit Narrative* Initial Evaluation . Dx: R29.6. * [facility] Work Phone: Regwoy for visit Narrative* Initial Evaluation . Dx: R29.6. * [facility] Work Phone: Reuani for visit Narrative* Initial Evaluation . Dx: R29.6. * [facility] Work Phone: Revsoe for visit Narrative* Initial Evaluation . Dx: R29.6. * [facility] Work Phone: Reumci for visit Narrative* Neuro Rehab PT (Routine) - Pending Review Specialty Diagnoses / Procedures Referred By Jess ayon Referred To Contact Rehabilitation Diagnoses Closed fracture of sternum with routine healing, unspecified portion of sternum, subsequent encounter Multiple falls Recurrent falls Parkinson's disease, unspecified whether dyskinesia present, unspecified whether manifestations fluctuate (HCC) Primary osteoarthritis involving multiple joints Shelley Maldonado PA-C [address] [place] [address] Phone: tel: fax: [facility] [address] [place] [address] Phone: tel: fax: Referral ID Status Reason Start Date Expiration Date Visits Requested Visits Authorized [id number] Pending Review Patient Preference 07/23/2024 07/23/[phone] [facility] for visit Narrative* Evaluate and Treat (Routine) - Closed Specialty Diagnoses / Procedures Referred By Jess ayon Referred To Contact Gastroenterology Diagnoses Abnormal CT of the abdomen Zara Evans, DO [address] [address] Phone: tel: fax: [facility] [address] [place] [address] Phone: tel:[phone] fax: Referral ID Status Reason Start Date Expiration Date Visits Re quested Visits Authorized [id number] Closed 07/26/2024 07/26/2025 1 1 [facility] Summary Purpose Family History No Family History [...] Documents on File Type Date Recorded Patient Payment Processor Expl anation Advance Directives and Livin g Will 11/03/2018 10:30 AM Documents on File Type Date Recorded Patient Payment Processor Expl anation Advance Directives and Livin g Will 11/03/2018 10:30 AM Documents on File Type Date Recorded Patient Payment Processor Expl anation Guardianship Papers 08/01/2022 Documents on File Type Date Recorded Patient Payment Processor Expl anation Living Will 05/24/2011 Documents on File Type Date Recorded Patient Payment Processor Expl anation Guardianship Papers 08/01/2022 Date Activated Date Inactivated Comments 12/04/2023 4:46 PM 12/05/2023 6:04 PM Date Activated Date Inactivated Comments 12/04/2023 4:46 PM 12/05/2023 6:04 PM Documents on File Type Date Recorded Patient Payment Processor Expl anation Living Will 05/24/2011 Documents on File Type Date Recorded Patient Payment Processor Expl anation Advance Directives and Living Will 05/24/2011 Living Will 05/24/2011 Documents on File Type Date Recorded Patient Payment Processor Expl anation Guardianship Papers 06/01/2024 [employer]psi Other 2-[employer] Guardianship Papers 08/01/2022 Documents on File Type Date Recorded Patient Payment Processor Expl anation Guardianship Papers 07/23/2024 3:21 PM Guardianship Papers 07/19/2024 Guardianship Papers 06/01/2024 [employer]psi Other 2-[employer] Guardianship Papers 08/01/2022 Date Activated Date Inactivated Comments 07/19/2024 9:59 AM 07/23/2024 5:11 PM Date Activated Date Inactivated Comments 12/04/2023 4:46 PM 12/05/2023 6:04 PM Documents on File Type Date Recorded Patient Payment Processor Expl anation Guardianship Papers 07/23/2024 3:21 PM Guardianship Papers 07/19/2024 Guardianship Papers 06/01/2024 [employer] Other 2-[employer] Guardianship Papers 08/01/2022 Date Activated Date Inactivated Comments 07/19/2024 9:59 AM 07/23/2024 5:11 PM Date Activated Date Inactivated Comments 12/04/2023 4:46 PM 12/05/2023 6:04 PM Documents on File Type Date Recorded Patient Payment Processor Expl anation Guard[employer]hip [employer] 07/23/2024 3:21 PM Guard[employer]hip Papers 07/30/2024 Guardianship Papers 07/19/2024 Guardianship Papers 06/01/2024 [facility] -[employer] Guardianship Papers 08/01/2022 Documents on File Type Date Recorded Patient Payment Processor Expl anation Guard[employer]hip [employer] 07/23/2024 3:21 PM Guard[employer] 07/30/2024 [employer] 07/19/2024 [employer] 06/01/2024 [facility] -[employer] Guard[employer] 08/01/2022 Reason for Referral Status Reason Specialty Diagnoses / Procedures Referred By Contact Referred To Contact Pending Review Radiology Diagnoses Dysphagia, unspecified type Procedures XR Upper GI Series Antwan Maharaj MD [address] [place] [address] Specialty Diagnoses / Procedures Referred By Contac t Referred To Contact Neurology Diagnoses Other symptoms and signs involving the nervous system Abnormal brain MRI Antwan Maharaj MD [address] [place] [id number] Mina Ortiz MD [address] [place] [address] Referral ID Status Reason Start Date Expiration Date V isits Requested Visits Authorized [id number] Authorized 11/15/2021 11/15/2022 1 1 Specialty Diagnoses / Procedures Referred By Contac t Referred To Contact Radiology Diagnoses SAH (subarachnoid hemorrhage) (HCC) Procedures CT Head Or Brain Without Contrast Huy Vasquez PA-C [address] [place] [address] Referral ID Status Reason Start Date Expiration Date V isits Requested Visits Authorized [id number] New Request 01/05/2024 01/04/2025 1 1 Assessments Diagnosis Dysphagia, unspecified type Diagnosis Fracture of unspecified phalanx of left little finger, initial encounter for closed fracture Diagnosis Fracture of unspecified phalanx of left little finger, initial encounter for closed fracture History of Present Illness * Ti Rhodes MD - 04/27/2019 6:30 PM EST Dictation on: 04/27/2019 6:32 PM by: TI RHODES [[id number]] documented in this encounter* Ti Rhodes MD [...] section and content) DATE CREATED AUTHOR 12/03/2017 [facility] DATE CREATED AUTHOR AUTHOR'S ORGANIZ ATION 12/26/2017 [facility] DATE CREATED AUTHOR AUTHOR'S ORGANIZ ATION 02/26/2019 [facility] DATE CREATED AUTHOR AUTHOR'S ORGANIZ ATION 04/24/2022 [facility] DATE CREATED AUTHOR AUTHOR'S ORGANIZ ATION 02/01/2023 [facility] DATE CREATED AUTHOR AUTHOR'S ORGANIZ ATION 02/05/2023 [facility] DATE CREATED AUTHOR AUTHOR'S ORGANIZ ATION 02/01/2024 [facility] DATE CREATED AUTHOR AUTHOR'S ORGANIZ ATION 02/05/2024 [facility] DATE CREATED AUTHOR AUTHOR'S ORGANIZ ATION 06/29/2024 [facility] DATE CREATED AUTHOR AUTHOR'S ORGANIZ ATION 07/03/2024 [facility] DATE CREATED AUTHOR AUTHOR'S ORGANIZ ATION 07/19/2024 [facility] DATE CREATED AUTHOR AUTHOR'S ORGANIZ ATION 09/23/2024 [facility] DATE CREATED AUTHOR AUTHOR'S ORGANIZ ATION 10/16/2024 [facility] DATE CREATED AUTHOR AUTHOR'S ORGANIZ ATION [facility] Reason for Visit (unrecogniz ed section and content) Status Reason Specialty Diagnoses / Procedures Referred By Contact Referred To Contact Pending Review Radiology Diagnoses Dysphagia, unspecified type Procedures XR Upper GI Series Antwan Maharaj MD [address] [place] [address] Reason Comments Injury Pain Status Reason Specialty Diagnoses / Procedures Referred By Contact Referred To Contact Closed Sports Medicine Diagnoses Fracture of unspecified phalanx of left little finger, initial encounter for closed fracture Antwan Maharaj MD [address] [place] [address] Ti Rhodes MD [address] [place] [id number] Reason Comments Follow-up Reason Comments Follow-up Patients [...] once a week. 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 Reason Onset Date Comments Medication Refill 06/24/2023 Specialty Diagnoses / Procedures Referred By Jess ayon Referred To Contact Radiology Diagnoses Encounter for screening mammogram for malignant neoplasm of breast Procedures BI mammo bilateral screening BI mammo bilateral screening tomosynthesis Rafa Jacinto, DO [address] [facility] [address] [facility] [place] [id number] Referral ID Status Reason Start Date Expiration Date Visits Requested Visits Authorized [id number] Pending Review Perform Procedure 3 04/20/2024 1 1 Reason Comments Nail Care Patient presents for diabetic foot care. Last A1C 7.2 Patient has toenail on tight great toe that is causing her pain Reason Comments Nail Care Diabetic nail care. Last A1C 7.2 Reason Comments Follow-up Fall Reason Comments Parkinson's Disease Caregivers present. Caregivers report recent fall (1.5 month ago). She was in [place] and transferred to [facility]. Pt utilizing assistance with gait. Reason Comments [...] Care - Established Rafa Jacinto, DO [address] [facility] [place] [address] Referral ID Status Reason Start Date Expiration Date V isits Requested Visits Authorized [id number] Authorized 04/21/2023 04/20/2024 1 1 Reason Comments [...] involving multiple joints Shelley Maldonado PA-C [address] [place] [address] Phone: tel: fax: [facility] [address] [place] [address] Phone: tel: fax: Referral ID Status Reason Start Date Expiration Date Visits Requested Visits Authorized [id number] Authorized Patient Preference 07/23/2024 07/23/2025 1 199 [...] involving multiple joints Shelley Maldonado PA-C [address] [place] [address] Phone: tel: fax: [facility] [address] [place] [address] Phone: tel: fax: Referral ID Status Reason Start Date Expiration Date Visits Requested Visits Authorized [id number] Pending Review Patient Preference 07/23/2024 07/23/2025 8 199 Reason Onset Date Comments [facility] 2024 Referral ID Status Reason Start Date Expiration Date Visits Requested Visits Authorized [id number] Pending Review Patient Preference 07/23/2024 07/23/2025 8 199 Reason Onset Date Comments Medication Refill 09/15/2024 Reason Comments Nail Care Diabetic A1c 8.7 09/07 10/31 Care Teams (unrecognized sec tion and content) Precision Lens Generator Relationship Specialty Start Date End Date Antwan Maharaj MD PCP - General Family Medicine 04/27/19 Precision Lens Generator Relationship Specialty Start Date End Date Antwan Maharaj MD PCP - General Family Medicine 04/27/19 Precision Lens Generator Relationship Specialty Start Date End Date Antwan Maharaj MD PCP - General Family Medicine 04/27/19 Precision Lens Generator Relationship Specialty Start Date End Date Antwan Maharaj MD [address] [place] [address] PCP - General Family Medicine 04/17/22 Precision Lens Generator Relationship Specialty Start Date End Date Antwan Maharaj MD [address] [place] [address] PCP - General Family Medicine 04/17/22 Precision Lens Generator Relationship Specialty Start Date End Date Rafa Jacinto DO [address] [facility] [place] [address] PCP - General Internal Medicine 03/19/23 Precision Lens Generator Relationship Specialty Start Date End Date Antwan Maharaj MD [address] [place] [address] PCP - General Family Medicine 04/17/22 Precision Lens Generator Relationship Specialty Start Date End Date Antwan Maharaj MD [address] [place] [address] PCP - General Family Medicine 04/17/22 Precision Lens Generator Relationship Specialty Start Date End Date Rafa Jacinto DO [address] [facility] [place] [address] PCP - General Internal Medicine 03/19/23 Precision Lens Generator Relationship Specialty Start Date End Date Rafa Jacinto DO [address] [facility] [place] [address] PCP - General Internal Medicine 03/19/23 Precision Lens Generator Relationship Specialty Start Date End Date Antwan Maharaj MD [address] [place] [address] PCP - General Family Medicine 04/17/22 Precision Lens Generator Relationship Specialty Start Date End Date Antwan Maharaj MD [address] [place] [address] PCP - General Family Medicine 04/17/22 Precision Lens Generator Relationship Specialty Start Date End Date Antwan Maharaj MD [address] [place] [address] PCP - General Family Medicine 04/17/22 Precision Lens Generator Relationship Specialty Start Date End Date Antwan Maharaj MD [address] [place] [address] PCP - General Family Medicine 04/17/22 Precision Lens Generator Relationship Specialty Start Date End Date Antwan Maharaj MD [address] [place] [address] PCP - General Family Medicine 04/17/22 Precision Lens Generator Relationship Specialty Start Date End Date Antwan Maharaj MD [address] [place] [address] PCP - General Family Medicine 04/17/22 Precision Lens Generator Relationship Specialty Start Date End Date Rafa Jacinto DO [address] [facility] [place] [address] PCP - General Internal Medicine 03/19/23 Precision Lens Generator Relationship Specialty Start Date End Date Rafa aJcinto DO [address] [facility] [place] [address] PCP - General Internal Medicine 03/19/23 Precision Lens Generator Relationship Specialty Start Date End Date Antwan Maharaj MD [address] [place] [id number] PCP - General Family Medicine 04/17/22 Precision Lens Generator Relationship Specialty Start Date End Date Rafa Jacinto DO [address] [facility] [place] [id number] PCP - General Internal Medicine 03/19/23 Marie Iyer, die makerTransportation Driver 12/08/23 Precision Lens Generator Relationship Specialty Start Date End Date Rfaa Jacinto DO [address] [facility] [place] [id number] PCP - General Internal Medicine 03/19/23 Marie Iyer, die makerTransportation Driver 12/08/23 Precision Lens Generator Relationship Specialty Start Date End Date Rafa Jacinto DO [address] [facility] [place] [id number] PCP - General Internal Medicine 03/19/23 Marie Iyer, die makerTransportation Driver 12/08/23 Precision Lens Generator Relationship Specialty Start Date End Date Rafa Jacinto DO [address] [facility] [place] [id number] PCP - General Internal Medicine 03/19/23 Marie Iyer, die makerTransportation Driver 12/08/23 Precision Lens Generator Relationship Specialty Start Date End Date Zara Evans DO [address] [address] PCP - General Family Medicine 06/23/24 Precision Lens Generator Relationship Specialty Start Date End Date Rafa Jacinto DO [address] [facility] [place] [address] PCP - General Internal Medicine 03/19/23 Precision Lens Generator Relationship Specialty Start Date End Date Rafa Jacinto AmyDO [address] [facility] [place] [address] PCP - General Internal Medicine 03/19/23 Precision Lens Generator Relationship Specialty Start Date End Date Zara Evans DO [facility] [address] [address] PCP - General Family Medicine 06/23/24 Precision Lens Generator Relationship Specialty Start Date End Date Zara Evans DO [address] [place], [place] [phone] PCP - General Family Medicine 06/23/24 Precision Lens Generator Relationship Specialty Start Date End Date Zara Evans DO [address] [place] [address] PCP - General Family Medicine 06/23/24 Precision Lens Generator Relationship Specialty Start Date End Date Zara Evans DO [address] [place], [place] [phone] PCP - General Family Medicine 06/23/24 Precision Lens Generator Relationship Specialty Start Date End Date Zara Evans DO [address] [place] [address] PCP - General Family Medicine 06/23/24 Precision Lens Generator Relationship Specialty Start Date End Date Zara Evans DO [facility] [address] [address] PCP - General Family Medicine 06/23/24 Precision Lens Generator Relationship Specialty Start Date End Date Zara Evans DO [address] [place], [place] [phone] PCP - General Family Medicine 06/23/24 Precision Lens Generator Relationship Specialty Start Date End Date Zara Evans DO [address] [place], [place] [phone] PCP - General Family Medicine 06/23/24 Precision Lens Generator Relationship Specialty Start Date End Date Zara Evans DO [address] [place], [place] [phone] PCP - General Family Medicine 06/23/24 Precision Lens Generator Relationship Specialty Start Date End Date Zara Evans DO [address] [place], [place] [phone] PCP - General Family Medicine 06/23/24 Precision Lens Generator Relationship Specialty Start Date End Date Zara Evans DO [address] [place], [place] [phone] PCP - General Family Medicine 06/23/24 Precision Lens Generator Relationship Specialty Start Date End Date Zara Evans DO [address] [place], [place] [phone] PCP - General Family Medicine 06/23/24 Precision Lens Generator Relationship Specialty Start Date End Date Zara Evans DO [address] [place], [place] [phone] PCP - General Family Medicine 06/23/24 Precision Lens Generator Relationship Specialty Start Date End Date Zara Evans DO [address] [place], [place] [phone] PCP - General Family Medicine 06/23/24 Precision Lens Generator Relationship Specialty Start Date End Date Zara Evans DO [address] [place], [place] [phone] PCP - General Family Medicine 06/23/24 Precision Lens Generator Relationship Specialty Start Date End Date Zara Evans DO [address] [place], [place] [phone] PCP - General Family Medicine 06/23/24 Precision Lens Generator Relationship Specialty Start Date End Date Zara Evans DO [address] [place] [address] PCP - General Family Medicine 06/23/24 Precision Lens Generator Relationship Specialty Start Date End Date Zara Evans DO [address] [place] [address] PCP - General Family Medicine 06/23/24 Precision Lens Generator Relationship Specialty Start Date End Date Zara Evans DO [address] [place], [place] [phone] PCP - General Family Medicine 06/23/24 Precision Lens Generator Relationship Specialty Start Date End Date Zara Evans DO [address] [place], [place] [phone] PCP - General Family Medicine 06/23/24 Precision Lens Generator Relationship Specialty Start Date End Date Zara Evans DO [address] [place], [place] [phone] PCP - General Family Medicine 06/23/24 <item><item><item><item><item> [...] pain scores based on patient preference? Yes 1275 (Given - Provid er: Ann Hill RN) [...] BE BASED ON THE PRIMARY CLINICAL RECORDS. [facility] provides no warranty or guarantee of the accuracy or completeness of information in this document.
--- OUTSIDE RECORDS SUMMARY | 2024-12-18 22:46 | XMS RPT_ITS | CCD ---
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 Mechanic Name Role Phone Unavailable Unavailable Unavailable Letha Alli Unavailable Unavailable Antwan Watters Unavailable Unavailable Alli Monae Unavailable Unavailable Antwan Watters Unavailable Unavailable Antwan Maharaj Unavailable Unavailable Antwan Maharaj Unavailable Unavailable Antwan Maharaj Unavailable Unavailable Antwan Maharaj Unavailable Unavailable Antwan Maharaj Unavailable Unavailable Antwan Maharaj Unavailable Unavailable Antwan Watters Primary Care Provider [phone] Antwan Watters Unavailable Antwan Maharaj Primary Care Provider Antwan Maharaj MD Primary Care Provider MINA ORTIZ Attending Unavailable MINA ORTIZ Referring Unavailable ANTWAN MAHARAJ Primary Care Unavailable Antwan Maharaj Unavailable France Lowe Unavailable Unavailable Antwan Maharaj MD Primary Care Provider [phone] Erickson Hernandez Unavailable Sharmaine Kelly I Unavailable [...] Oberhauser DO, Rafa L Primary Care Provider [phone] HUY VASQUEZ Referring Unavailable HUY VASQUEZ Attending [...] ZARA R. Primary Care Unavailable MOVENS, SHELLEY ANURDAHA Referring Unavailable MOVENS, SHELLEY ANURADHA Admitting Unavailable [...] Attending Unavailable CREKIRILL ENG Admitting Unavailab le [facility] Consulting MODESTA Rangel Attending [...] mouth every six hours for pain HYDROcodone-acetaminophen (Divide) 5-325 mg tablet Indications: Contusion of right [...] Ordered: 09-Aug-2022 Chan Stephens Generic Substitution Allowed aweaijic-kss-wmgvotv fumarate 15 mg iron Tab (20 sources) Start: 08-19-2024 take 1 tablet by mouth once daily in the morning zhpquxdc-gbu-ybyueit fumarate 15 mg iron Tab Indications: Frequent falls Take 1 tablet by mouth every morning . 90 tablet 3 08/19/2024 Active Start: 11-09-2023 End: 08-19-2024 take 1 tablet by mouth once daily in the morning gcpkcnqb-kwd-sehmwhz fumarate 15 mg iron Tab Take 1 tablet by mouth every morning . 11/09/2023 08/19/2024 Discontinued (Reorder (Suppress CancelRx Message to Pharmacy)) Start: 11-09-2023 take 1 tablet by lopez th once daily in the morning abjnqnpt-xbm-tbvmqgv fumarate 15 mg iron Tab Take 1 tablet by mouth every morning . 11/09/2023 Active uvqltyez-xgp-acgrqfp fumarate 15 mg iron tablet (3 sources) Start: 03-08-2024 take 1 tablet by mouth once daily zxayfplc-fzw-aklafaw fumarate 15 mg iron tablet Take 1 tablet by mouth once daily. 03/08/2024 Active iuvloomx-wsh-nwlb fum-folic ac 7.5 mg iron-400 mcg tablet (9 sources) Start: 10-07-2023 emuimhyq-dlx-o adolfo fum-folic ac 7.5 mg iron-400 mcg tablet Indications: Healthcare maintenance GIVE 1 TABLET BY MOUTH ONCE DAILY FOR SUPPLEMENT *GETTING FILLED LOCALLY* 30 tablet 10/07/2023 Active MULTIVITAMIN ORAL (20 sources) MULTIVITAMIN ORA L Take 1 tablet by mouth . Active MULTIVITAMIN ORA L Take by mouth . 0 Active multivitamin with minerals (lwkwuvbu-wxl-omii fum-folic ac) tablet (9 sources) Start: 10-14-2023 End: 10-13-2024 take 1 tablet by mouth once daily before mealtime multivitamin with minerals (lvfjojuq-xwj-azsd fum-folic ac) tablet Indications: Stage 3a chronic [...] daily . 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 [id number] MTB SCREEN INTERPRETATION Negative Normal Negative [facility] Comment on above: Result Comment: No I FN-gamma response to M tuberculosis antigens was detected. Latent infection with M tuberculosis is unlikely. A single negative result does not exclude infection with M tuberculosis. In patients at high risk for M tuberculosis infection,a second test should be considered Performed By: #### L [id number] #### [facility] [address] [place] [address] Kirill Noe M.D. [id number] NIL 0.43391 IU/mL Normal [facility] Comment on above: Performed By: #### L [id number] #### [facility] [address] [place] [address] Kirill Noe M.D. [id number] TB1-NIL -0.14400 IU/mL Normal 0.00 0.34 [facility] Comment on above: Performed By: #### L [id number] #### [facility] [address] [place] [address] Kirill Noe M.D. [id number] TB2-NIL 0.44113 IU/mL Normal 0.00 0.34 [facility] Comment on above: Result Comment: [...] out TB Infection. Performed By: #### L [id number] #### [facility] [address] [address] Kirill Noe M.D. [id number] XR UPPER GI W/SMALL BOWEL FO LLOW [...] FriSep 30, 2024 11:42:03 AM EDT Normal [facility] Comment on above: Order Comment: [...] By: #### 6 517 #### [facility] [place] [address] Naval Designer: Russell Pagan MD ALBUMIN/CREATININE RATIO, RANDOM URINE [...] By: #### 6 517 #### [facility] [place] [address] Naval Designer: Russell Pagan MD Creatinine (U) [Mass/Vol] 36 mg/dL Normal 20-275 [facility] Comment on above: Order Comment: FASTI NG:NO FASTING: NO Performed By: #### 6 517 #### [facility] [place] [address] Naval Designer: Russell Pagan MD HEMOGLOBIN A1con 09-22-2024 HbA1c [...] children. Performed By: #### 4 96 #### [address], [address] [place] [address] Naval Designer: Russell Pagan MD POC GLUCOSE - [facility] 025 Glucose [Mass/Vol] 218 mg/dL [address] Comment on above: Performed By: #### 4 6932 ####[facility] [address] [address] David Mcclain M.D. [id number] Glucose [Mass/Vol] 143 mg/dL [address] Comment on above: Performed By: #### 4 6932 #### [facility] [address] [address] David Mcclain M.D. [id number] POC GLUCOSE - [facility] 025 Glucose [Mass/Vol] 170 mg/dL [address] Comment on above: Performed By: #### 4 6932 #### LAB [address] [address] David Mcclain M.D. [id number] Glucose [Mass/Vol] 134 mg/dL [address] Comment on above: Performed By: #### 4 6932 #### [facility] [address] [address] David Mcclain M.D. [id number] Glucose [Mass/Vol] 154 mg/dL [address] Comment on above: Performed By: #### 4 6932 ####[facility] [address] [address] David Mcclain M.D. [id number] Glucose [Mass/Vol] 120 mg/dL [address] Comment on above: Performed By: #### 4 6932 #### [facility] [address] [address] David Mcclain M.D. [id number] POC GLUCOSE - [facility] 025 Glucose [Mass/Vol] 107 mg/dL [address] Comment on above: Performed By: #### 4 6932 #### LAB [address] [place] [address] David Mcclain M.D. [id number] Glucose [Mass/Vol] 106 mg/dL [address] Comment on above: Performed By: #### 4 6932 #### [facility] [address] [address] David Mcclain M.D. [id number] LIPASEon 07-20-2024 Lipase [Catalytic activity/Vol] 36 U/L [facility] Comment on above: Performed By: #### 4 6981 #### [facility] [address] [address] David Mcclain M.D. [id number] POC GLUCOSE - [facility] 025 Glucose [Mass/Vol] 131 mg/dL [address] Comment on above: Performed By: #### 4 6932 #### LAB [address] [place] [address] David Mcclain M.D. [id number] Glucose [Mass/Vol] 147 mg/dL [address] Comment on above: Performed By: #### 4 6946 ####[facility] [address] [place] [id number] David Mcclain M.D. [id number] Glucose [Mass/Vol] 131 mg/dL [address] Comment on above: Performed By: #### 4 9248 #### [facility] [address] [address] David Mcclain M.D. [id number] Glucose [Mass/Vol] 160 mg/dL High 65-99 [facility] Comment on above: Performed By: #### 4 6932 #### LAB [address] [place], [place] [address] David Mcclain M.D. [id number] URINE AEROBIC CULTUREon 07-10 URINE AEROBIC CULTURE [...] Extended Susc Islt S Negative F Abnormal [facility] Comment on above: Performed By: #### 4 6932 #### LAB [address] [place], [place] [address] David Mcclain M.D. [id number] APTTon 07-19-2024 aPTT Coag (Bld) [Time] 23 s Normal 23-34 [facility] Comment on above: Order Comment: Thera peutic range for APTT's is 68 - 104 seconds Performed By: #### 4 5113 #### LAB [address] [place], [place] [address] David Mcclain M.D. [id number] CBC WITH AUTO DIFFERENTIALon 07-19-2024 AUTO NRBC 0.0 % Normal [facility] Comment on above: Performed By: #### 4 6932 #### LAB [address] [address] David Mcclain M.D. [id number] AUTO NRBC ABS COUNT 0.00 K/mcL Normal 0.00-0.00 [facility] Comment on above: Performed By: #### 4 6932 #### LAB [address] [address] David Mcclain M.D. [id number] BASOPHILS ABSOLUTE COUNT 0.01 K/mcL Normal 0.00-0.30 [facility] Comment on above: Performed By: #### 4 6911 #### LAB [address] [place] [address] David Mcclain M.D. [id number] Basophils/100 WBC (Bld) 0.2 % Normal [facility] Comment on above: Performed By: #### 4 6983 #### LAB [address] [place] [address] David Mcclain M.D. [id number] Eosinophils (Bld) [#/Vol] 0.20 10*3/uL Normal 0.00-0.50 [facility] Comment on above: Performed By: #### 4 7162 #### LAB [address] [place] [address] David Mcclain M.D. [id number] Eosinophils/100 WBC (Bld) 3.3 % Normal [facility] Comment on above: Performed By: #### 4 6777 #### LAB [address] [place] [address] David Mcclain M.D. [id number] Erythrocyte distribution width (RBC) [Ratio] 13.3 % Normal 11.6-14.8 [facility] Comment on above: Performed By: #### 4 6776 #### LAB [address] [place] [address] David Mcclain M.D. [id number] Hematocrit (Bld) [Volume fraction] 47.7 % High 36.0-46.0 [facility] Comment on above: Performed By: #### 4 0264 #### LAB [address] [place] [address] David Mcclain M.D. [id number] Hemoglobin (Bld) [Mass/Vol] 14.4 g/dL Normal 12.0-16.0 [facility] Comment on above: Performed By: #### 4 6931 #### LAB [address] [place] [address] David Mcclain M.D. [id number] IG ABSOLUTE 0.02 K/mcL Normal 0.00-0.30 [facility] Comment on above: Performed By: #### 4 6991 #### LAB [address] [place] [address] David Mcclain M.D. [id number] IG PERCENT 0.30 % Normal [facility] Comment on above: Result Comment: The IG parameter is the percentage of metamyelocytes, myelocytes and promyelocytes. An immature granulocyte count (IG) of 1% or more suggests the possibility of infection, an IG count of 3% is very likely related to an infection. Performed By: #### 4 4159 #### LAB [address] [address] David Mcclain M.D. [id number] Lymphocytes (Bld) [#/Vol] 0.92 10*3/uL Normal 0.90-4.00 [facility] Comment on above: Performed By: #### 4 6927 #### LAB [address] [place] [address] David Mcclain M.D. [id number] Lymphocytes/100 WBC (Bld) 15.4 % Normal [facility] Comment on above: Performed By: #### 4 6979 #### LAB [address] [place] [address] David Mcclain M.D. [id number] MCH (RBC) [Entitic mass] 28.7 pg Normal 26.0-34.0 [facility] Comment on above: Performed By: #### 4 6980 #### LAB [address] [place] [address] David Mcclain M.D. [id number] MCV (RBC) [Entitic vol] 95.0 fL Normal 80.0-100.0 [facility] Comment on above: Performed By: #### 4 6914 #### LAB [address] [address] David Mcclain M.D. [id number] MEAN CORPUSCULAR HEMOGLOBIN CONC 30.2 g/dL Low 31.0-37.0 [facility] Comment on above: Performed By: #### 4 6927 #### LAB [address] [place] [address] David Mcclain M.D. [id number] Monocytes (Bld) [#/Vol] 0.40 10*3/uL Normal 0.30-0.90 [facility] Comment on above: Performed By: #### 4 6936 #### LAB [address] [place] [address] David Mcclain M.D. [id number] Monocytes/100 WBC (Bld) 6.7 % Normal [facility] Comment on above: Performed By: #### 4 1067 #### LAB [address] [place] [address] David Mcclain M.D. [id number] NEUTROPHILS ABSOLUTE COUNT 4.43 K/mcL Normal 1.70-7.00 [facility] Comment on above: Performed By: #### 4 6980 #### LAB [address] [place] [address] David Mcclain M.D. [id number] Neutrophils/100 WBC (Bld) 74.1 % Normal [facility] Comment on above: Performed By: #### 4 2898 #### LAB [address] [place] [address] David Mcclain M.D. [id number] Platelet mean volume (Bld) [Entitic vol] 10.4 fL Normal 9.4-12.4 [facility] Comment on above: Performed By: #### 4 8861 #### LAB [address] [place] [address] David Mcclain M.D. [id number] Platelets (Bld) [#/Vol] 294 10*3/uL Normal 150-400 [facility] Comment on above: Performed By: #### 4 6932 #### LAB [address] [place] [address] David Mcclain M.D. [id number] RBC (Bld) [#/Vol] 5.02 10*6/uL Normal 4.00-5.20 [facility] Comment on above: Performed By: #### 4 6932 #### LAB [address] [address] David Mcclain M.D. [id number] WBC (Bld) [#/Vol] 5.98 10*3/uL Normal 4.50-11.00 [facility] Comment on above: Performed By: #### 4 6932 #### LAB [address] [place] [address] David Mcclain M.D. [id number] COMPREHENSIVE METABOLIC PANE Huan 07-19-2024 Albumin [Mass/Vol] 4.4 g/dL Normal 3.2-5.2 [facility] Comment on above: Order Comment: [facility] has implemented the eGFR calculation approach that does not have a coefficient for race that conforms to the NKF-ASN Task Force Recommendations. Performed By: #### 4 6932 #### LAB [address] [place] [address] David Mcclain M.D. [id number] ALP [Catalytic activity/Vol] 68 U/L Normal 40-150 [facility] Comment on above: Order Comment: [facility] has implemented the eGFR calculation approach that does not have a coefficient for race that conforms to the NKF-ASN Task Force Recommendations. Performed By: #### 4 6932 #### LAB [address] [place] [address] David Mcclani M.D. [id number] ALT [Catalytic activity/Vol] 15 U/L Normal 0-35 U/L [facility] Comment on above: Order Comment: [facility] has implemented the eGFR calculation approach that does not have a coefficient for race that conforms to the NKF-ASN Task Force Recommendations. Performed By: #### 4 6932 #### LAB [address] [place] [address] David Mcclain M.D. [id number] Anion gap [Moles/Vol] 18 mmol/L Normal 10-20 [facility] Comment on above: Order Comment: [facility] has implemented the eGFR calculation approach that does not have a coefficient for race that conforms to the NKF-ASN Task Force Recommendations. Performed By: #### 4 6932 #### LAB [address] [place] [address] David Mcclain M.D. [id number] AST [Catalytic activity/Vol] 17 U/L Normal 0-35 U/L [facility] Comment on above: Order Comment: [facility] has implemented the eGFR calculation approach that does not have a coefficient for race that conforms to the NKF-ASN Task Force Recommendations. Performed By: #### 4 6932 #### LAB [address] [place] [address] David Mcclain M.D. [id number] Bilirubin [Mass/Vol] 0.2 mg/dL Normal 0.0-1.3 [facility] Comment on above: Order Comment: [facility] has implemented the eGFR calculation approach that does not have a coefficient for race that conforms to the NKF-ASN Task Force Recommendations. Performed By: #### 4 6932 #### LAB [address] [address] David Mcclain M.D. [id number] Calcium [Mass/Vol] 9.8 mg/dL Normal 8.4-10.2 [facility] Comment on above: Order Comment: [facility] has implemented the eGFR calculation approach that does not have a coefficient for race that conforms to the NKF-ASN Task Force Recommendations. Performed By: #### 4 6932 #### LAB [address] [place] [address] David Mcclain M.D. [id number] Chloride [Moles/Vol] 103 mmol/L Normal 98-108 [facility] Comment on above: Order Comment: [facility] has implemented the eGFR calculation approach that does not have a coefficient for race that conforms to the NKF-ASN Task Force Recommendations. Performed By: #### 4 6932 #### LAB [address] [place], [place] [address] David Mcclain M.D. [id number] Creatinine [Mass/Vol] 0.94 mg/dL Normal 0.60-1.10 [facility] Comment on above: Order Comment: [facility] has implemented the eGFR calculation approach that does not have a coefficient for race that conforms to the NKF-ASN Task Force Recommendations. Performed By: #### 4 6932 #### LAB [address] [place] [address] David Mcclain M.D. [id number] EGFR 68 mL/min/1.73 m2 Normal >=60 [facility] Comment on above: Order Comment: [facility] has implemented the eGFR calculation approach that does not have a coefficient for race that conforms to the NKF-ASN Task Force Recommendations. Result Comment: Velasquez mated GFR was calculated using the 2020 CKD-EPI creatinine equation. Performed By: #### 4 6932 #### LAB [address] [place], [place] [address] David Mcclain M.D. [id number] Glucose [Mass/Vol] 140 mg/dL High 65-99 [facility] Comment on above: Order Comment: [facility] has implemented the eGFR calculation approach that does not have a coefficient for race that conforms to the NKF-ASN Task Force Recommendations. Performed By: #### 4 6932 #### [facility] [address] [place], [place] [address] David Mcclain M.D. [id number] HCO3 (Bld) [Moles/Vol] 25 mmol/L Normal 21-32 [facility] Comment on above: Order Comment: [facility] has implemented the eGFR calculation approach that does not have a coefficient for race that conforms to the NKF-ASN Task Force Recommendations. Performed By: #### 4 6932 #### LAB [address] [place], [place] [address] David Mcclain M.D. [id number] Potassium [Moles/Vol] 4.2 mmol/L Normal 3.5-5.1 [facility] Comment on above: Order Comment: [facility] has implemented the eGFR calculation approach that does not have a coefficient for race that conforms to the NKF-ASN Task Force Recommendations. Performed By: #### 4 6932 #### LAB [address] [place], [place] [address] David Mcclain M.D. [id number] Protein [Mass/Vol] 7.5 g/dL Normal 6.0-8.0 [facility] Comment on above: Order Comment: [facility] has implemented the eGFR calculation approach that does not have a coefficient for race that conforms to the NKF-ASN Task Force Recommendations. Performed By: #### 4 6932 #### LAB [address] [place] [address] David Mcclain M.D. [id number] Sodium [Moles/Vol] 142 mmol/L Normal 135-145 [facility] Comment on above: Order Comment: [facility] has implemented the eGFR calculation approach that does not have a coefficient for race that conforms to the NKF-ASN Task Force Recommendations. Performed By: #### 4 6932 #### LAB [address] [place] [address] David Mcclain M.D. [id number] Urea nitrogen [Mass/Vol] 30 mg/dL High 8-25 [facility] Comment on above: Order Comment: [facility] has implemented the eGFR calculation approach that does not have a coefficient for race that conforms to the NKF-ASN Task Force Recommendations. Performed By: #### 4 6932 #### LAB [address] [place], [place] [address] David Mcclain M.D. [id number] Urea nitrogen/Creatinine [Mass ratio] 31.9 mg/mg High 10.0-20.0 [facility] Comment on above: Order Comment: [facility] has implemented the eGFR calculation approach that does not have a coefficient for race that conforms to the NKF-ASN Task Force Recommendations. Performed By: #### 4 6932 #### LAB [address] [place], [place] [address] David Mcclain M.D. [id number] COVID-19/INFLUENZA A,B MOLEC ULARon 07-19-2024 SARS-CoV-2 (COVID-19) Ab IA Ql SARS-COV-2 (LEE ANN) Not Detected INFLUENZA A (LEE ANN) Not Detected INFLUENZA B (LEE ANN) Not Detected Normal Not Detected [facility] Comment on above: Performed By: #### L [id number] #### LAB [address] [place], [place] [address] David Mcclain M.D. [id number] CT CERVICAL SPINE WITHOUT CO NTRASTon 07-19-2024 [...] cervical canal hematoma. DEGENERATIVE CHANGES: There is eyrr-iq-sfjvrneh multilevel discogenic disease and degenerative facet and [...] and th (more content not included)... Normal [facility] Comment on above: Order Comment: [...] cervical canal hematoma. DEGENERATIVE CHANGES: There is cvyc-ly-wpknkgcs multilevel discogenic disease and degenerative facet and [...] and th (more content not included)... Normal [facility] Comment on above: Order Comment: [...] cervical canal hematoma. DEGENERATIVE CHANGES: There is mhue-hg-oxrmthuv multilevel discogenic disease and degenerative facet and [...] and th (more content not included)... Normal [facility] Comment on above: Order Comment: Injur y/Trauma or Illness?:Illness/OtherHow long have you had these symptoms (acute/chronic)?:AcuteReason for exam?:frequent falls, head pain and back painType of Exam?:InitialAdditional signs and symptoms?:fall ED Prov Noteon 07-19-2024 ED Prov Note [facility] EMERGENCY [facility]MENT ATTENDING NOTE: NAME: Shaji Esquivel CSN: [id number] 63 y.o. PCP: Zara Evans DO History: Chief Complaint: Fall HPI: 63-year-old female past medical history of hypertension hyperlipidemia diabetes subarachnoid hemorrhage presents [facility] emergency department from [facility] for evaluation of multiple falls that been progressively worsening over the past 2 weeks. No specific alleviating or aggravating factors. 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 lobsjsqr-oqs-dfiwiak fumarate 15 mg iron Tab Take 1 tablet by mouth every morning . MULTIVITAMIN ORAL Take (more content not included)... Normal [facility] LIPASEon 07-19-2024 Lipase [Catalytic activity/Vol] 56 U/L Normal 15-65 [facility] Comment on above: Performed By: #### 4 6983 #### LAB [address] [place] [address] David Mcclain M.D. [id number] POC GLUCOSE - [facility] 025 Glucose [Mass/Vol] 124 mg/dL High 65- [facility] Comment on above: Performed By: #### 4 6989 #### LAB [address] [place], [place] [address] David Mcclain M.D. [id number] Glucose [Mass/Vol] 125 mg/dL High 65-99 [facility] Comment on above: Performed By: #### 4 6990 #### LAB [address] [place] [id number] David Mcclain M.D. [id number] PT/INRon 07-19-2024 INR Coag (PPP) [Relative time] 1.0 {INR} Normal 0.8-1.1 [facility] Comment on above: Order Comment: Chantel saunders the induction phase of oral anticoagulation, the INR may not reflect the anticoagulation status of the patient. Therapeutic ranges for INR's are:Most clinical situations: INR 2.0-3.0Mechanical Prosthetic Valve: INR 2.5-3.5Critical: INR >5.0 Performed By: #### 4 6993 #### LAB [address] [address] David Mcclain M.D. [id number] PT Coag (PPP) [Time] 13.2 s Normal 11.8-14.3 [facility] Comment on above: Order Comment: Chantel saunders the induction phase of oral anticoagulation, the INR may not reflect the anticoagulation status of the patient. Therapeutic ranges for INR's are:Most clinical situations: INR 2.0-3.0Mechanical Prosthetic Valve: INR 2.5-3.5Critical: INR >5.0 Performed By: #### 4 6956 #### LAB [address] [address] David Mcclain M.D. [id number] T4, FREEon 07-19-2024 Free T4 [Mass/Vol] 1.6 ng/dL Normal 0.7-1.7 [facility] Comment on above: Performed By: #### 4 6568 #### LAB [address] [address] David Mcclain M.D. [id number] TROPONINon 07-19-2024 BASELINE TROPONIN T NG/L 18 ng/L Off scale high <=14 [facility] Comment on above: Performed By: #### 4 69 #### LAB [address] [address] David Mcclain M.D. [id number] TROPONIN T INTERPRETATION Possible acute cardiac injury. Normal [facility] Comment on above: Performed By: #### 4 6932 #### MH LAB [address] [address] David Mcclain M.D. [id number] TSHon 07-19-2024 TSH Qn 3.18 m[IU]/L Normal 0.27-4.20 [facility] Comment on above: Performed By: #### 4 6613 #### LAB [address] [address] David Mcclain M.D. [id number] URINALYSISon 07-19-2024 BACTERIA, URINE Many Abnormal None Seen [facility] Comment on above: Order Comment: Micro scopic examination is performed on all urinalysis samples and only positive findings are reported. The test for blood on the chemical analytic portion of urinalysis may also be positive due to hemoglobinuria and myoglobinuria and if red blood cells are present they are quantified by microscopic examination. Performed By: #### 4 6932 #### LAB [address] [address] David Mcclain M.D. [id number] BILIRUBIN, URINE Negative Normal Negative [facility] Comment on above: Order Comment: Micro scopic examination is performed on all urinalysis samples and only positive findings are reported. The test for blood on the chemical analytic portion of urinalysis may also be positive due to hemoglobinuria and myoglobinuria and if red blood cells are present they are quantified by microscopic examination. Performed By: #### 4 6932 #### LAB [address] [address] David Mcclain M.D. [id number] BLOOD, URINE Negative Normal Negative [facility] Comment on above: Order Comment: Micro scopic examination is performed on all urinalysis samples and only positive findings are reported. The test for blood on the chemical analytic portion of urinalysis may also be positive due to hemoglobinuria and myoglobinuria and if red blood cells are present they are quantified by microscopic examination. Performed By: #### 4 6932 #### LAB [address] [address] David Mcclain M.D. [id number] Clarity (U) Cloudy Abnormal Clear [facility] Comment on above: Order Comment: Micro scopic examination is performed on all urinalysis samples and only positive findings are reported. The test for blood on the chemical analytic portion of urinalysis may also be positive due to hemoglobinuria and myoglobinuria and if red blood cells are present they are quantified by microscopic examination. Performed By: #### 4 6932 #### LAB [address] [address] aDvid Mcclain M.D. [id number] Color (U) Yellow Normal Colorless, Yellow [facility] Comment on above: Order Comment: Micro scopic examination is performed on all urinalysis samples and only positive findings are reported. The test for blood on the chemical analytic portion of urinalysis may also be positive due to hemoglobinuria and myoglobinuria and if red blood cells are present they are quantified by microscopic examination. Performed By: #### 4 6932 #### LAB [address] [place] [address] David Mcclain M.D. [id number] Glucose Ql (U) >=500 Abnormal Negative, >=1000 [facility] Comment on above: Order Comment: Micro scopic examination is performed on all urinalysis samples and only positive findings are reported. The test for blood on the chemical analytic portion of urinalysis may also be positive due to hemoglobinuria and myoglobinuria and if red blood cells are present they are quantified by microscopic examination. Performed By: #### 4 6932 #### LAB [address] [place] [address] David Mcclain M.D. [id number] Ketones Ql (U) Trace Abnormal Negative [facility] Comment on above: Order Comment: Micro scopic examination is performed on all urinalysis samples and only positive findings are reported. The test for blood on the chemical analytic portion of urinalysis may also be positive due to hemoglobinuria and myoglobinuria and if red blood cells are present they are quantified by microscopic examination. Performed By: #### 4 6932 #### LAB [address] [address] David Mcclain M.D. [id number] Leukocyte esterase Test strip Ql (U) Small Abnormal Negative [facility] Comment on above: Order Comment: Micro scopic examination is performed on all urinalysis samples and only positive findings are reported. The test for blood on the chemical analytic portion of urinalysis may also be positive due to hemoglobinuria and myoglobinuria and if red blood cells are present they are quantified by microscopic examination. Performed By: #### 4 6932 #### LAB [address] [address] David Mcclain M.D. [id number] MUCUS, URINE Rare Normal None Seen, Rare [facility] Comment on above: Order Comment: Micro scopic examination is performed on all urinalysis samples and only positive findings are reported. The test for blood on the chemical analytic portion of urinalysis may also be positive due to hemoglobinuria and myoglobinuria and if red blood cells are present they are quantified by microscopic examination. Performed By: #### 4 6932 #### LAB [address] [place] [address] David Mcclain M.D. [id number] NITRITE, URINE Negative Normal Negative [facility] Comment on above: Order Comment: Micro scopic examination is performed on all urinalysis samples and only positive findings are reported. The test for blood on the chemical analytic portion of urinalysis may also be positive due to hemoglobinuria and myoglobinuria and if red blood cells are present they are quantified by microscopic examination. Performed By: #### 4 6932 #### LAB [address] [address] David Mcclain M.D. [id number] pH (U) 6.5 [pH] Normal 5.0-7.0 [facility] Comment on above: Order Comment: Micro scopic examination is performed on all urinalysis samples and only positive findings are reported. The test for blood on the chemical analytic portion of urinalysis may also be positive due to hemoglobinuria and myoglobinuria and if red blood cells are present they are quantified by microscopic examination. Performed By: #### 4 6932 #### LAB [address] [address] David Mcclain M.D. [id number] PROTEIN, URINE Negative Normal Negative [facility] Comment on above: Order Comment: Micro scopic examination is performed on all urinalysis samples and only positive findings are reported. The test for blood on the chemical analytic portion of urinalysis may also be positive due to hemoglobinuria and myoglobinuria and if red blood cells are present they are quantified by microscopic examination. Performed By: #### 4 6932 #### LAB [address] [address] David Mcclain M.D. [id number] Specific gravity (U) [Rel density] 1.028 High 1.005-1.025 [facility] Comment on above: Order Comment: [...] #### 4 6932 #### KYLE LAB [address] [address] David Mcclain M.D. [id number] SQUAMOUS EPITHELIAL 8 /hpf High 0-4 [facility] Comment on above: Order Comment: Micro scopic examination is performed on all urinalysis samples and only positive findings are reported. The test for blood on the chemical analytic portion of urinalysis may also be positive due to hemoglobinuria and myoglobinuria and if red blood cells are present they are quantified by microscopic examination. Performed By: #### 4 6932 #### LAB [address] [address] David Mcclain M.D. [id number] UROBILINOGEN, URINE <2.0 Normal <2.0 [facility] Comment on above: Order Comment: Micro scopic examination is performed on all urinalysis samples and only positive findings are reported. The test for blood on the chemical analytic portion of urinalysis may also be positive due to hemoglobinuria and myoglobinuria and if red blood cells are present they are quantified by microscopic examination. Performed By: #### 4 6932 #### LAB [address] [address] David Mcclain M.D. [id number] WBC LM.HPF (Urine sed) [#/Area] 14 /[HPF] High 0-5 [facility] Comment on above: Order Comment: [...] 4 6932 #### LAB [address] [place], [place] [address] David Mcclain M.D. [id number] XR CHEST PA/APon 07-19-2024 XR CHEST PA/AP [...] FriJul 19, 2024 7:52:01 AM EST Normal [facility] Comment on above: Order Comment: [...] on FriJul 19, 2024 8:28:53 AM EST [facility] Comment on above: Order Comment: [...] on FriJul 19, 2024 8:28:44 AM EST [facility] Comment on above: Order Comment: [...] FriJul 14, 2024 5:20:31 PM EST Normal [facility] Comment on above: Order Comment: [...] FriJul 14, 2024 5:17:12 PM EST Normal [facility] Comment on above: Order Comment: Injur y/Trauma or Illness?:Injury/Trauma How long have you had these symptoms (acute/chronic)?:Acute Reason for exam?:fall History of cancer?:u Surgeries, chemotherapy, or radiation?:u Type of Exam?:Initial Mechanism of injury?:. ED Prov Noteon 07-14-2024 ED Prov Note [facility] EMERGENCY DEPARTMENT ATTENDING NOTE: NAME: Shaji Esquivel CSN: [id number] 63 y.o. PCP: Zara Evans DO History: Chief Complaint: Fall HPI: The history was obtained from the patient and fpc. Shaji is a 63 y.o. female who [...] answer Stress: Patient Unable To Answer (07/13/2024) [employer] [place] [employer] - Occupational Stress Questionnaire Feeling of Stress : Patient unable to answer Social Connections: Patient Unable To Answer (07/13/2024) Social Connection and Isolation Panel [NHANES] Frequency of Communication with Friends and Family: Patient unable to answer Frequency of Social Gatherings with Friends and Family: Patient unable to answer Attends Spiritism Services: Patient unable to answer Active Member [...] (500 mg (more content not included)... Normal [facility] XR PELVIS 1 VIEW (STANDARD)o n 07-14-2024 [...] FriJul 14, 2024 5:45:52 PM EST Normal [facility] Comment on above: Order Comment: Injur y/Trauma or Illness?:Illness/OtherHow long have you had these symptoms (acute/chronic)?:AcuteReason for exam?:Fall, history of dementia, no LOC, right-sided forehead hematoma, poor historianHistory of cancer?:uSurgeries, chemotherapy, or radiation?:uType of Exam?:InitialAdditional signs and symptoms?:. No Panel Informationon 07-09 Radiology Study observation (narrative) [facility] [place] Work Phone: XR HIP RIGHT WITH PELVIS WHE N PERFORMED 2 OR 3 VIEWSon 07-09-2024 XR HIP RIGHT WITH PELVIS WHEN PERFORMED 2 OR 3 VIEWS Interpreted By: Alexys Moran, STUDY: XR HIP RIGHT WITH PELVIS WHEN PERFORMED 2 OR 3 VIEWS; ; 07/09/2024 12:08 pm INDICATION: Signs/Symptoms:pain after fall. COMPARISON: 12/13/2016 ACCESSION NUMBER(S): [id number] ORDERING CLINICIAN: MILES HE FINDINGS: Right hip, three views There is no acute fracture dislocation. There is no malalignment. No significant degenerative changes seen IMPRESSION: No acute fracture seen in the right hip. If there is persistent clinical concern CT can be performed for further evaluation MACRO: None Signed by: Alexys Moran 07/09/2024 12:14 PM Dictation workstation: [id number] [facility] XR Hip Viewson 07-09-2024 No acute fracture se en in the right hip. If there is persistent clinical concern CT can be performed for further evaluation MACRO: None Signed by: Alexys Moran 07/09/2024 12:14 PM Dictation workstation: [id number] [facility] Interpreted By: Alexys Combs, STUDY: XR HIP RIGHT WITH PELVIS WHEN PERFORMED 2 OR 3 VIEWS; ; 07/09/2024 12:08 pm INDICATION: Signs/Symptoms:pain after fall. COMPARISON: 12/13/2016 ACCESSION NUMBER(S): [id number] ORDERING CLINICIAN: MILES HE FINDINGS: Right hip, three views There is no acute fracture dislocation. There is no malalignment. No significant degenerative changes seen [facility] Alexys Moran MD - 07/09/2024 Interpreted By: Alexys Moran STUDY: XR HIP RIGHT WITH PELVIS WHEN PERFORMED 2 OR 3 VIEWS; ; 07/09/2024 12:08 pm INDICATION: Signs/Symptoms:pain after fall. COMPARISON: 12/13/2016 ACCESSION NUMBER(S): [id number] ORDERING CLINICIAN: MIELS HE FINDINGS: Right hip, three views There is no acute fracture dislocation. There is no malalignment. No significant degenerative changes seen IMPRESSION: No acute fracture seen in the right hip. If there is persistent clinical concern CT can be performed for further evaluation MACRO: None Signed by: Aelxys Moran 07/09/2024 12:14 PM Dictation workstation: [id number] [facility] [place] Work Phone: [facility] [place] Work Phone: XR KNEE RIGHT 1-2 VIEWSon XR KNEE RIGHT 1-2 VIEWS Interpreted By: Alexys Moran, STUDY: XR KNEE RIGHT 1-2 VIEWS; ; 07/09/2024 12:08 pm INDICATION: Signs/Symptoms:pain after fall. COMPARISON: 01/29/2020 ACCESSION NUMBER(S): [id number] ORDERING CLINICIAN: MILES HE FINDINGS: Right knee, four views There is no evidence of a fracture. There is no dislocation. There is no effusion. Minimal osteophytosis present in the patella IMPRESSION: No acute abnormality in the right knee MACRO: None Signed by: Alexys Moran 07/09/2024 12:15 PM Dictation workstation: [id number] [facility] XR Knee - right 1 or 2 Views on 07-09-2024 No acute abnormality in the right knee MACRO: None Signed by: Alexys Moran 07/09/2024 12:15 PM Dictation workstation: [id number] [facility] Interpreted By: Alexys Combs, STUDY: XR KNEE RIGHT 1-2 VIEWS; ; 07/09/2024 12:08 pm INDICATION: Signs/Symptoms:pain after fall. COMPARISON: 01/29/2020 ACCESSION NUMBER(S): [id number] ORDERING CLINICIAN: MILES HE FINDINGS: Right knee, four views There is no evidence of a fracture. There is no dislocation. There is no effusion. Minimal osteophytosis present in the patella [facility] Alexys Moran MD - 07/09/2024 Interpreted By: Alexys Moran, STUDY: XR KNEE RIGHT 1-2 VIEWS; ; 07/09/2024 12:08 pm INDICATION: Signs/Symptoms:pain after fall. COMPARISON: 01/29/2020 ACCESSION NUMBER(S): [id number] ORDERING CLINICIAN: MILES HE FINDINGS: Right knee, four views There is no evidence of a fracture. There is no dislocation. There is no effusion. Minimal osteophytosis present in the patella IMPRESSION: No acute abnormality in the right knee MACRO: None Signed by: Alexys Moran 07/09/2024 12:15 PM Dictation workstation: [id number] [facility] [place] Work Phone: XR Knee - right 1 or 2 Views Ordered By: Alexys Moran on 07-09-2024 [facility] [place] Work Phone: Comprehensive metabolic 2000 panelon 06-28-2024 Albumin BCP dye [Mass/Vol] 4.5 g/dL Normal 3.4-5.0 [facility] Comment on above: Performed By: #### 2 4323-8 #### ALEKSANDR MEANS ([id number]) [facility] ([facility]) [address] [place] [address] ALP [Catalytic activity/Vol] 54 U/L Normal 33-136 [facility] Comment on above: Performed By: #### 2 4323-8 #### ALEKSANDR MEANS ([id number]) [facility] ([facility]) [address] [place] [address] ALT With P-5'-P [Catalytic activity/Vol] 16 U/L Normal 7-45 [facility] Comment on above: Result Comment: Haylee ents treated with Sulfasalazine may generate falsely decreased results for ALT. Performed By: #### 2 4323-8 #### ALEKSANDR MEANS ([id number]) [facility] ([facility]) [address] [place] [address] Anion gap [Moles/Vol] 17 mmol/L Normal 10-20 [facility] Comment on above: Performed By: #### 2 4323-8 #### ALEKSANDR MEANS ([id number]) [facility] ([facility]) [address] [place] [address] AST With P-5'-P [Catalytic activity/Vol] 17 U/L Normal 9-39 [facility] Comment on above: Performed By: #### 2 4323-8 #### ALEKSANDR MEANS ([id number]) [facility] ([facility]) [address] [place] [address] Bilirubin [Mass/Vol] 0.3 mg/dL Normal 0.0-1.2 [facility] Comment on above: Performed By: #### 2 4323-8 #### ALEKSANDR MEANS ([id number]) [facility] ([facility]) [address] [place] [address] Calcium [Mass/Vol] 9.7 mg/dL Normal 8.6-10.3 [facility] Comment on above: Performed By: #### 2 4323-8 #### ALEKSANDR MEANS ([id number]) [facility] ([facility]) [address] [place] [address] Chloride [Moles/Vol] 105 mmol/L Normal 98-107 [facility] Comment on above: Performed By: #### 2 4323-8 #### ALEKSANDR MEANS ([id number]) [facility] ([facility]) [address] [place] [address] CO2 [Moles/Vol] 26 mmol/L Normal 21-32 [facility] Comment on above: Performed By: #### 2 4323-8 #### ALEKSANDR MEANS ([id number]) [facility] ([facility]) [address] [place] [address] Creatinine [Mass/Vol] 0.81 mg/dL Normal 0.50-1.05 [facility] Comment on above: Performed By: #### 2 4323-8 #### ALEKSANDR MEANS ([id number]) [facility] ([facility]) [address] [place] [address] Glomerular filtration rate/1.73 sq M.predicted 82 mL/min/1.73m*2 Normal >60 [facility] Comment on above: Result Comment: Calc ulations of estimated GFR are performed using the 2020 CKD-EPI Study Refit equation without the race variable for the IDMS-Traceable creatinine methods. https://jasn.asnjournals.org/content/early//ASN.5345309 988 Performed By: #### 2 4323-8 #### ALEKSANDR MEANS ([id number]) [facility] ([facility]) [address] [place] [address] Glucose [Mass/Vol] 157 mg/dL High 74-99 [facility] Comment on above: Performed By: #### 2 4323-8 #### ALEKSANDR MEANS ([id number]) [facility] ([facility]) [address] [place] [address] Potassium [Moles/Vol] 4.7 mmol/L Normal 3.5-5.3 [facility] Comment on above: Performed By: #### 2 4323-8 #### ALEKSANDR MEANS ([id number]) [facility] ([facility]) [address] [place] [address] Protein [Mass/Vol] 7.1 g/dL Normal 6.4-8.2 [facility] Comment on above: Performed By: #### 2 4323-8 #### ALEKSANDR MEANS ([id number]) [facility] ([facility]) [address] [place] [address] Sodium [Moles/Vol] 143 mmol/L Normal 136-145 [facility] Comment on above: Performed By: #### 2 4323-8 #### ALEKSANDR MEANS ([id number]) [facility] ([facility]) [address] [place] [address] Urea nitrogen [Mass/Vol] 29 mg/dL High - [facility] Comment on above: Performed By: #### 2 4323-8 #### ALEKSANDR MEANS ([id number]) [facility] ([facility]) [address] [place] [address] HbA1c (Bld) [Mass fraction]o n 06-28-2024 Average glucose Estimated from glycated hemoglobin (Bld) [Mass/Vol] 171 mg/dL Normal Not Established [facility] Comment on above: Order Comment: Diagn osis of Jpmtzkry-XrfnghSgm-Jgkywfzd: < or = 5.6%Increased risk for developing diabetes: 5.7-6.4%Diagnostic of diabetes: > or = 6.5% Performed By: #### 2 4331-1 #### ALEKSANDR MEANS ([id number]) [facility] ([facility]) [address] [place] [address] Hemoglobin A1c/Hemoglobin.to sharla 06-28-2024 HbA1c (Bld) [Mass fraction] 7.6 % High See comment [facility] Comment on above: Order Comment: Diagn osis of Lbnirnsc-ValvjaCny-Tywcnrwy: < or = 5.6%Increased risk for developing diabetes: 5.7-6.4%Diagnostic of diabetes: > or = 6.5% Performed By: #### 2 4331-1 #### ALEKSANDR MEANS ([id number]) [facility] ([facility]) [address] [place], [place] [address] TSH WITH REFLEX TO FREE T4 I F ABNORMALon 06-28-2024 TSH Qn 1.87 m[IU]/L Normal 0.44-3.98 [facility] Comment on above: Order Comment: TSH t esting is performed using different testing methodology at [facility] than at other [facility]. Direct result comparisons should only be made within the same method. Performed By: #### T URIEL #### ALEKSANDR MEANS ([id number]) [facility] ([facility]) [address] [place] [address] Bacteria identifiedon 2024 Bacteria identified Cx Nom (U) Test: Urine Culture Specimen Source: Clean Catch/Voided Specimen Type: Urine Specimen Date: 06/11/2024 153 Result Date: 06/15/2024 135 Result Status: Final result Abnormal: Yes Resulting Lab: [facility] [address] [id number] CULTURE >=100,000 CFU/mL Escherichia coli (Abnormal) SUSCEPTIBILITY Escherichia coli METHOD MICROSCAN --- AMPICILLIN <=8.000 ug/ml Susceptible CEFAZOLIN <=2 ug/ml Susceptible CEFAZOLIN (UNCOMPLICATED UTIS ONLY) <=2 ug/ml Susceptible CIPROFLOXACIN <=0.250 ug/ml Susceptible GENTAMICIN <=2.000 ug/ml Susceptible NITROFURANTOIN <=32 ug/ml Susceptible PIPERACILLIN/TAZOBACTAM <=8.000 ug/ml Susceptible TRIMETHOPRIM/SULFAMETHO XAZOLE <=2/38 ug/ml Susceptible Abnormal [facility] [place] [facility] Comment on above: Performed By: #### 6 30-4 ####BATSHEVA Reyes ([id number])[facility] ([facility])[address] [place] [address] Urinalysis microscopic panel Auto Ql (U)on 06-11-2024 Bacteria Auto (Urine sed) [#/Area] 1+ /HPF Abnormal NONE SEEN [facility] [place] [facility] Comment on above: Performed By: #### 5 3315-8 ####ALEKSANDR MEANS ([id number])[facility] ([facility])[address] [place] [address] Epithelial cells.squamous Auto (Urine sed) [#/Area] 1-9 (SPARSE) Normal Reference range not established. [facility] [place] [facility] Comment on above: Performed By: #### 5 3315-8 ####ALEKSANDR MEANS ([id number])[facility] ([facility])[address] [place] [address] Mucus Auto (Urine sed) [#/Area] FEW Normal Reference range not established. [facility] [place] [facility] Comment on above: Performed By: #### 5 3315-8 ####ALEKSANDR MEANS ([id number])[facility] ([facility])[address] [place] [address] RBC Auto (Urine sed) [#/Area] 1-2 Normal NONE, 1-2, 3-5 [facility] [place] [facility] Comment on above: Performed By: #### 5 3315-8 ####ALEKSANDR MEANS ([id number])[facility] ([facility])[address] [place] [address] WBC Auto (Urine sed) [#/Area] 1-5 Normal 1-5, NONE [facility] [place] [facility] Comment on above: Performed By: #### 5 8495-8 ####ALEKSANDR MEANS ([id number])[facility] ([facility])[address] [place] [address] Comprehensive metabolic 2000 panelon 03-12-2024 Albumin BCP dye [Mass/Vol] 4.3 g/dL Normal 3.4-5.0 [facility] Comment on above: Performed By: #### 2 432-8 #### ALEKSANDR MEANS ([id number]) [facility] ([facility]) [address] [place] [address] ALP [Catalytic activity/Vol] 78 U/L Normal 33-136 [facility] Comment on above: Performed By: #### 2 432-8 #### ALEKSANDR MEANS ([id number]) [facility] ([facility]) [address] [place] [address] ALT With P-5'-P [Catalytic activity/Vol] 17 U/L Normal 7-45 [facility] Comment on above: Result Comment: Haylee ents treated with Sulfasalazine may generate falsely decreased results for ALT. Performed By: #### 2 4322-8 #### ALEKSANDR MEANS ([id number]) [facility] ([facility]) [address] [place] [address] Anion gap [Moles/Vol] 14 mmol/L Normal 10-20 [facility] Comment on above: Performed By: #### 2 4322-8 #### ALEKSANDR MEANS ([id number]) [facility] ([facility]) [address] [place] [address] AST With P-5'-P [Catalytic activity/Vol] 18 U/L Normal 9-39 [facility] Comment on above: Performed By: #### 2 432-8 #### ALEKSANDR MEANS ([id number]) [facility] ([facility]) [address] [place] [address] Bilirubin [Mass/Vol] 0.3 mg/dL Normal 0.0-1.2 [facility] Comment on above: Performed By: #### 2 4322-8 #### ALEKSANDR MEANS ([id number]) [facility] ([facility]) [address] [place] [address] Calcium [Mass/Vol] 9.9 mg/dL Normal 8.6-10.3 [facility] Comment on above: Performed By: #### 2 432-8 #### ALEKSANDR MEANS ([id number]) [facility] ([facility]) [address] [place] [address] Chloride [Moles/Vol] 102 mmol/L Normal 98-107 [facility] Comment on above: Performed By: #### 2 4323-8 #### ALEKSANDR MEANS ([id number]) [facility] ([facility]) [facility] [place] [address] CO2 [Moles/Vol] 30 mmol/L Normal 21-32 [facility] Comment on above: Performed By: #### 2 4323-8 #### ALEKSANDR MEANS ([id number]) [facility] ([facility]) [address] [place] [address] Creatinine [Mass/Vol] 0.94 mg/dL Normal 0.50-1.05 [facility] Comment on above: Performed By: #### 2 4323-8 #### ALEKSANDR MEANS ([id number]) [facility] ([facility]) [address] [place] [address] Glomerular filtration rate/1.73 sq M.predicted 68 mL/min/1.73m*2 Normal >60 [facility] Comment on above: Result Comment: Calc ulations of estimated GFR are performed using the 2020 CKD-EPI Study Refit equation without the race variable for the IDMS-Traceable creatinine methods. https://jasn.asnjournals.org/content/early//ASN.9083495 988 Performed By: #### 2 4323-8 #### ALEKSANDR MEANS ([id number]) [facility] ([facility]) [address] [place] [address] Glucose [Mass/Vol] 181 mg/dL High 74-99 [facility] Comment on above: Performed By: #### 2 4323-8 #### ALEKSANDR MEANS ([id number]) [facility] ([facility]) [address] [place] [address] Potassium [Moles/Vol] 4.6 mmol/L Normal 3.5-5.3 [facility] Comment on above: Performed By: #### 2 4323-8 #### ALEKSANDR MEANS ([id number]) [facility] ([facility]) [address] [place] [address] Protein [Mass/Vol] 7.3 g/dL Normal 6.4-8.2 [facility] Comment on above: Performed By: #### 2 4323-8 #### ALEKSANDR MEANS ([id number]) [facility] ([facility]) [address] [place] [address] Sodium [Moles/Vol] 141 mmol/L Normal 136-145 [facility] Comment on above: Performed By: #### 2 4323-8 #### ALEKSANDR MEANS ([id number]) [facility] ([facility]) [address] [place] [address] Urea nitrogen [Mass/Vol] 29 mg/dL High 6-23 [facility] Comment on above: Performed By: #### 2 4323-8 #### ALEKSANDR MEANS ([id number]) [facility] ([facility]) [address] [place] [address] HbA1c (Bld) [Mass fraction]o n 03-12-2024 Average glucose Estimated from glycated hemoglobin (Bld) [Mass/Vol] 177 mg/dL Normal Not Established [facility] Comment on above: Order Comment: Diagn osis of Diabetes-Adults Non-Diabetic: < or = 5.6% Increased risk for developing diabetes: 5.7-6.4% Diagnostic of diabetes: > or = 6.5% Performed By: #### 4 548-4 #### BATSHEVA Reyes ([id number]) [facility] ([facility]) [address] [place] [address] Hemoglobin A1c/Hemoglobin.to sharla 03-12-2024 HbA1c (Bld) [Mass fraction] 7.8 % High See comment [facility] Comment on above: Order Comment: Diagn osis of Diabetes-Adults Non-Diabetic: < or = 5.6% Increased risk for developing diabetes: 5.7-6.4% Diagnostic of diabetes: > or = 6.5% Performed By: #### 4 548-4 #### BATSHEVA Reyes ([id number]) [facility] ([facility]) [address] [place] [address] TSH WITH REFLEX TO FREE T4 I F ABNORMALon 03-12-2024 TSH Qn 3.58 m[IU]/L Normal 0.44-3.98 [facility] Comment on above: Order Comment: TSH t esting is performed using different testing methodology at [facility] than at other [facility]. Direct result comparisons should only be made within the same method. Performed By: #### T SUZANNES #### BRANDON CLARY ([id number]) [facility] ([facility]) [address] [place] [address] XR WRIST LEFT 2 VIEWSon 01-08 XR [...] on FriFeb 03, 2024 2:11:30 PM EDT [facility] Comment on above: Order Comment: Injur y/Trauma or Illness?:Injury/TraumaHow long have you had these symptoms (acute/chronic)?:AcuteReason for exam?:Left wrist painHistory of cancer?:uSurgeries, chemotherapy, or radiation?:uType of Exam?:InitialMechanism of injury?:Fall ECG 12 LeadOrdered By: Roseanne Shell on 01-30-2024 Atrial Rate 89 BPM [facility] Work Phone: P Sheridan 42 degrees [facility] Work Phone: P Offset 170 ms [facility] Work Phone: P Onset 127 [facility] Work Phone: IA Interval 174 ms [facility] [place] Work Phone: Q Onset 214 ms [facility] [place] Work Phone: QRS Count 14 beats [facility] [place] Work Phone: QRS Duration 82 ms [facility] [place] Work Phone: QT Interval 388 ms [facility] [place] Work Phone: QTC Calculation(Bazett) 472 ms [facility] [place] Work Phone: QTC Fredericia 442 ms [facility] Work Phone: R Sheridan 26 degrees [facility] [place] Work Phone: T Sheridan 67 degrees [facility] [place] Work Phone: T Offset 408 ms [facility] [place] Work Phone: Ventricular Rate [address] [facility] Work Phone: [facility] [place] Work Phone: ECG 12 Leadon 01-30-2024 Normal sinus rhythm Normal ECG No previous ECGs available See ED provider note for full interpretation and clinical correlation Confirmed by Roseanne Shell ([id number]) on 01/30/2024 9:08:44 PM MUSE Roseanne Shell PA-C - 01/30/2024 Normal sinus rhythm Normal ECG No previous ECGs available See ED provider note for full interpretation and clinical correlation Confirmed by Roseanne Shell ([id number]) on 01/30/2024 9:08:44 PM [facility] [place] Work Phone: ECG 12-LEADon 01-29-2024 ECG 12-LEAD Ventricular Rate 89 Atrial Rate 89 P-R Interval 174 QRS Duration 82 Q-T Interval 388 QTC Calculation(Bazett) 472 P Sheridan 42 R Sheridan 26 T Sheridan 67 QRS Count 14 Q Onset 214 P Onset 127 P Offset 170 T Offset 408 QTC Fredericia 442 Diagnosis Normal sinus rhythm Normal ECG No previous ECGs available See ED provider note for full interpretation and clinical correlation Confirmed by Roseanne Shell ([id number]) on 01/30/2024 9:08:44 PM Normal [facility] No Panel Informationon 01-28 Radiology Study observation (narrative) [facility] [place] Work Phone: XR FOREARM RIGHT 2 VIEWSon 0 01-29-2024 XR FOREARM RIGHT 2 VIEWS Interpreted By: Pito Kaur, STUDY: XR FOREARM RIGHT 2 VIEWS; ; 01/29/2024 7:57 am INDICATION: Signs/Symptoms:FALL TRAUMA. COMPARISON: November 2023 ACCESSION NUMBER(S): [id number] ORDERING CLINICIAN: DARIN TRUJILLO FINDINGS: No fractures [...] Pito Kaur 01/29/2024 8:33 AM Dictation workstation: [id number] [facility] XR KNEE RIGHT 1-2 VIEWSon XR KNEE RIGHT 1-2 VIEWS Interpreted By: Pito Kaur, STUDY: XR KNEE RIGHT 1-2 VIEWS; ; 01/29/2024 7:57 am INDICATION: Signs/Symptoms:FALL/TRA LAST. COMPARISON: None. ACCESSION NUMBER(S): [id number] ORDERING CLINICIAN: DARIN TRUJILLO FINDINGS: No fractures or destructive lesions are identified. The joint spaces and articular surfaces are maintained. The alignment is anatomic. The soft tissues are unremarkable. IMPRESSION: Normal right knee radiographs. Signed by: Pito Kaur 01/29/2024 8:37 AM Dictation workstation: [id number] [facility] XR Knee - right 1 or 2 Views on 01-29-2024 Normal right knee radiographs. Signed by: Pito Kaur 01/29/2024 8:37 AM Dictation workstation: [id number] MMODAL Interpreted By: Pito Kaur, STUDY: XR KNEE RIGHT 1-2 VIEWS; ; 01/29/2024 7:57 am INDICATION: Signs/Symptoms:FALL/TRA LAST. COMPARISON: None. ACCESSION NUMBER(S): [id number] ORDERING CLINICIAN: DARIN TRUJILLO FINDINGS: No fractures or destructive lesions are identified. The joint spaces and articular surfaces are maintained. The alignment is anatomic. The soft tissues are unremarkable. MMODAL Pito Kaur MD - 01/29/2024 Interpreted By: Pito Kaur, STUDY: XR KNEE RIGHT 1-2 VIEWS; ; 01/29/2024 7:57 am INDICATION: Signs/Symptoms:FALL/TRA LAST. COMPARISON: None. ACCESSION NUMBER(S): [id number] ORDERING CLINICIAN: DARIN TRUJILLO FINDINGS: No fractures or destructive lesions are identified. The joint spaces and articular surfaces are maintained. The alignment is anatomic. The soft tissues are unremarkable. IMPRESSION: Normal right knee radiographs. Signed by: Pito Kaur 01/29/2024 8:37 AM Dictation workstation: [id number] [facility] Work Phone: XR Knee - right 1 or 2 Views Ordered By: Pito Kaur on 01-29-2024 [facility] Work Phone: XR Radius and Ulna - right 2 Viewson 01-29-2024 No acute fracture. Persistent dorsal subluxation of the distal ulna in relation to the distal radius; correlate clinically. Signed by: Pito Kaur 01/29/2024 8:33 AM Dictation workstation: [id number] [facility]ODAL Interpreted By: Pito Kaur, STUDY: XR FOREARM RIGHT 2 VIEWS; ; 01/29/2024 7:57 am INDICATION: Signs/Symptoms:FALL TRAUMA. COMPARISON: November 2023 ACCESSION NUMBER(S): [id number] ORDERING CLINICIAN: DARIN TRUJILLO FINDINGS: No fractures [...] Signs/Symptoms:FALL TRAUMA. COMPARISON: November 2023 ACCESSION NUMBER(S): [id number] ORDERING CLINICIAN: DARIN TRUJILLO FINDINGS: No fractures [...] Pito Kaur 01/29/2024 8:33 AM Dictation workstation: [id number] [facility] Work Phone: [facility] Work Phone: CT HEAD OR BRAIN WITHOUT [...] PROVIDED DIAGNOSIS CODES: I60.9 SAH (subarachnoid hemorrhage) ([facility]) COMPARISON: CT brain: 12/05/2023 FINDINGS: Intracranial Bleed: No evidence for acute intracranial bleed. Intracranial Mass: No evidence for mass lesion. No mass effect or midline shift. Extra-axial spaces: The ventricles are diffusely dilated due to mild generalized atrophy. White/Laguna Matter: No acute cortical infarct. There is himq-za-nyjfpqic chronic low attenuation in the white matter [...] lesion. 3. 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 4. Mild right pre frontal and supraorbital soft tissue swelling is improved. Workstation ID: [id number] Dictated by: JEFF MILLER on FriJan 07, 2024 12:05:25 PM EDT Transcribed by: JEFF MILLER on FriJan 07, 2024 12:05:25 PM EDT Finalized by: JEFF MILLER on FriJan 07, 2024 12:05:25 PM EDT [facility] Comment on above: Order Comment: Compl [...] Dec 25, 2023 3:39:07 PM EDT Normal [facility] Comment on above: Order Comment: Injur y/Trauma or Illness?:Illness/Other How long have you had these symptoms (acute/chronic)?:Acute Reason for exam?:pain History of cancer?:u Surgeries, chemotherapy, or radiation?:u Type of Exam?:Subsequent/Follow-up Additional signs and symptoms?:. BASIC METABOLIC PANELon - Anion gap [Moles/Vol] 15 mmol/L Normal 10-20 [facility] Comment on above: Order Comment: [facility] has implemented the eGFR calculation approach that does not have a coefficient for race that conforms to the NKF-ASN Task Force Recommendations. Performed By: #### 4 6932 #### [address] [place], [place] [address] David Mcclain M.D. [id number] Calcium [Mass/Vol] 9.0 mg/dL Normal 8.4-10.2 [facility] Comment on above: Order Comment: [facility] has implemented the eGFR calculation approach that does not have a coefficient for race that conforms to the NKF-ASN Task Force Recommendations. Performed By: #### 4 6932 #### [facility] [address] [place] [address] David Mcclain M.D. [id number] Chloride [Moles/Vol] 105 mmol/L Normal 98-108 [facility] Comment on above: Order Comment: [facility] has implemented the eGFR calculation approach that does not have a coefficient for race that conforms to the NKF-ASN Task Force Recommendations. Performed By: #### 4 6932 #### [facility] [address] [place] [address] David Mcclain M.D. [id number] Creatinine [Mass/Vol] 0.85 mg/dL Normal 0.60-1.10 [facility] Comment on above: Order Comment: [facility] has implemented the eGFR calculation approach that does not have a coefficient for race that conforms to the NKF-ASN Task Force Recommendations. Performed By: #### 4 6932 #### [facility] [address] [place] [address] David Mcclain M.D. [id number] EGFR 77 mL/min/1.73 m2 Normal >=60 [facility] Comment on above: Order Comment: [facility] has implemented the eGFR calculation approach that does not have a coefficient for race that conforms to the NKF-ASN Task Force Recommendations. Result Comment: Velasquez mated GFR was calculated using the 2020 CKD-EPI creatinine equation. Performed By: #### 4 6932 #### [facility] [address] [place] [address] David Mcclain M.D. [id number] Glucose [Mass/Vol] 168 mg/dL High 65-99 [facility] Comment on above: Order Comment: [facility] has implemented the eGFR calculation approach that does not have a coefficient for race that conforms to the NKF-ASN Task Force Recommendations. Performed By: #### 4 6932 #### [address] [place] [address] David Mcclain M.D. [id number] HCO3 (Bld) [Moles/Vol] 25 mmol/L Normal 21-32 [facility] Comment on above: Order Comment: [facility] has implemented the eGFR calculation approach that does not have a coefficient for race that conforms to the NKF-ASN Task Force Recommendations. Performed By: #### 4 6932 #### [facility] [address] [place] [address] David Mcclain M.D. [id number] Potassium [Moles/Vol] 4.2 mmol/L Normal 3.5-5.1 [facility] Comment on above: Order Comment: [facility] has implemented the eGFR calculation approach that does not have a coefficient for race that conforms to the NKF-ASN Task Force Recommendations. Performed By: #### 4 6932 #### [facility] [address] [place] [address] David Mcclain M.D. [id number] Sodium [Moles/Vol] 141 mmol/L Normal 135-145 [facility] Comment on above: Order Comment: [facility] has implemented the eGFR calculation approach that does not have a coefficient for race that conforms to the NKF-ASN Task Force Recommendations. Performed By: #### 4 6932 #### [address] [place] [id number] David Mcclain M.D. [id number] Urea nitrogen [Mass/Vol] 22 mg/dL Normal 8-25 [facility] Comment on above: Order Comment: [facility] has implemented the eGFR calculation approach that does not have a coefficient for race that conforms to the NKF-ASN Task Force Recommendations. Performed By: #### 4 6932 #### [address] [place] [address] David Mcclain M.D. [id number] Urea nitrogen/Creatinine [Mass ratio] 25.9 mg/mg High 10.0-20.0 [facility] Comment on above: Order Comment: [facility] has implemented the eGFR calculation approach that does not have a coefficient for race that conforms to the NKF-ASN Task Force Recommendations. Performed By: #### 4 6932 #### [facility] [address] [place] [address] David Mcclain M.D. [id number] CBCon 12-05-2023 AUTO NRBC 0.0 % Normal [facility] Comment on above: Performed By: #### 4 6932 #### LAB [address] [place] [id number] David Mcclain M.D. [id number] AUTO NRBC ABS COUNT 0.00 K/mcL Normal 0.00-0.00 [facility] Comment on above: Performed By: #### 4 6905 #### LAB [address] [place] [address] David Mcclain M.D. [id number] Erythrocyte distribution width (RBC) [Ratio] 14.8 % Normal 11.6-14.8 [facility] Comment on above: Performed By: #### 4 6960 #### [facility] [address] [place] [address] David Mcclian M.D. [id number] Hematocrit (Bld) [Volume fraction] 34.8 % Low 36.0-46.0 [facility] Comment on above: Performed By: #### 4 6986 #### [facility] [address] [place] [address] David Mcclain M.D. [id number] Hemoglobin (Bld) [Mass/Vol] 10.7 g/dL Low 12.0-16.0 [facility] Comment on above: Performed By: #### 4 6928 #### [facility] [address] [place] [address] David Mcclain M.D. [id number] MCH (RBC) [Entitic mass] 27.0 pg Normal 26.0-34.0 [facility] Comment on above: Performed By: #### 4 8925 #### [facility] [address] [place] [address] David Mcclain M.D. [id number] MCV (RBC) [Entitic vol] 87.9 fL Normal 80.0-100.0 [facility] Comment on above: Performed By: #### 4 3481 #### [facility] [address] [place] [address] David Mcclain M.D. [id number] MEAN CORPUSCULAR HEMOGLOBIN CONC 30.7 g/dL Low 31.0-37.0 [facility] Comment on above: Performed By: #### 4 5985 #### [facility] [address] [place] [address] David Mcclain M.D. [id number] Platelet mean volume (Bld) [Entitic vol] 9.3 fL Low 9.4-12.4 [facility] Comment on above: Performed By: #### 4 8923 #### [facility] [address] [place] [address] David Mcclain M.D. [id number] Platelets (Bld) [#/Vol] 312 10*3/uL Normal 150-400 [facility] Comment on above: Performed By: #### 4 1067 #### [facility] [address] [place], [place] [address] David Mcclain M.D. [id number] RBC (Bld) [#/Vol] 3.96 10*6/uL Low 4.00-5.20 [facility] Comment on above: Performed By: #### 4 6932 #### [facility] [address] [place], [place] [address] David Mcclain M.D. [id number] WBC (Bld) [#/Vol] 7.23 10*3/uL Normal 4.50-11.00 [facility] Comment on above: Performed By: #### 4 6932 #### LAB [address] [place], [place] [address] David Mcclain M.D. [id number] CONSULTon 12-05-2023 CONSULT Orthopedic consult Chief complaint [...] BY SACHIN MORALES, ON 12/05/2023 10:14:32 Normal [facility] CT HEAD OR BRAIN WITHOUT CON TRASTon 12-05-2023 CT HEAD OR BRAIN WITHOUT CONTRAST EXAMINATION: CT HEAD OR BRAIN WITHOUT CONTRAST12/05/2023 7:16 am TECHNIQUE: Routine protocol multiplanar reformatted axial CT acquisition At least one of the following dose reduction techniques was utilized: Iterative reconstruction, and/or Automatic Exposure Control, and/or mA/kV adjustment based on body size. INDICATION: SAH [phone] Renu Santos, Director for residential provider *[phone] Stephanie Mata, curriculum and assessment coordinator at the home Injury/Trauma or Illness?:Illness/Other How long have you had these symptoms (acute/chronic)?:Acute Reason for exam?:sah f/u I62.9 Intracranial bleed (HCC) COMPARISON: 12/04/[address] FINDINGS: Stable focal anterior right temporal lobe subarachnoid/cortical hyperdensity. Moderate generalized cerebral cortical volume loss, and discordance crowding the subarachnoid spaces at the vertex relative to moderate 3rd and lateral ventricular enlargement by. [id number]-rg-gtavysop frontoparietal predominant burn a confluent periventricular and [...] FriDec 05, 2023 12:13:06 PM EDT Normal [facility] Comment on above: Order Comment: Injur y/Trauma or Illness?:Illness/OtherHow long have you had these symptoms (acute/chronic)?:AcuteReason for exam?:sah f/uType of Exam?:Subsequent/Follow-upAdditional signs and symptoms?:n/a POC GLUCOSE - [facility] 024 Glucose [Mass/Vol] 167 mg/dL High 65-99 [facility] Glucose [Mass/Vol] 156 mg/dL High 65-99 [facility] Glucose [Mass/Vol] 160 mg/dL High 65-99 [facility] ALCOHOL, MEDICALon 4 ALCOHOL MEDICAL < Normal <10.0 [facility] Comment on above: Result Comment: Alco hol cutoff: <10.00 mg/dL = None Detected Performed By: #### 4 5033 #### LAB [address] [place] [address] David Mcclain M.D. [id number] Basic metabolic 2000 panelon 12-04-2023 Anion gap [Moles/Vol] 11 mmol/L 10 - 20 mmol/L [facility] [place] Calcium [Mass/Vol] 9.7 mg/dL 8.6 - 10. 3 mg/dL [facility] [place] Chloride [Moles/Vol] 103 mmol/L 98 - 10 7 mmol/L [facility] [place] CO2 [Moles/Vol] 30 mmol/L 21 - 32 mmol/L [facility] [place] Creatinine [Mass/Vol] 0.85 mg/dL 0.50 - 1.05 mg/dL [facility] [place] GFR/1.73 sq M.predicted among non-blacks MDRD (S/P/Bld) [Vol rate/Area] 77 mL/min/{1.73_m2} - PINF [facility] [place] Comment on above: Calculations of velasquez mated GFR are performed using the 2020 CKD-EPI Study Refit equation without the race variable for the IDMS-Traceable creatinine methods. https://jasn.asnjournals.org/content/early/ASN.1043688 988 Glucose [Mass/Vol] 145 mg/dL High 74 - 99 mg/dL [facility] Interpretation and review of laboratory results Abnormal [facility] [place] Potassium [Moles/Vol] 4.2 mmol/L 3.5 - 5.3 mmol/L [facility] [place] Sodium [Moles/Vol] 140 mmol/L 136 - 145 mmol/L [facility] [place] Urea nitrogen [Mass/Vol] 29 mg/dL High 6 - 23 mg/dL [facility] Anion gap [Moles/Vol] 11 mmol/L Normal 10-20 [facility] [place] [facility] Comment on above: Performed By: #### 2 4321-2 ####ALEKSANDR MEANS ([id number])[facility] ([facility])[address] [place] [address] Calcium [Mass/Vol] 9.7 mg/dL Normal 8.6-10.3 [facility] Comment on above: Performed By: #### 2 4321-2 ####ALEKSANDR MEANS ([id number])[facility] ([facility])[address] [place] [address] Chloride [Moles/Vol] 103 mmol/L Normal 98-107 [facility] Comment on above: Performed By: #### 2 4321-2 ####ALEKSANDR MEANS ([id number])[facility] ([facility])[address] [place] [address] CO2 [Moles/Vol] 30 mmol/L Normal 21-32 [facility] Comment on above: Performed By: #### 2 4321-2 ####ALEKSANDR MEANS ([id number])[facility] ([facility])[address] [place] [address] Creatinine [Mass/Vol] 0.85 mg/dL Normal 0.50-1.05 [facility] [place] [facility] Comment on above: Performed By: #### 2 4320-2 ####ALEKSANDR MEANS ([id number])[facility] ([facility])[address] [place] [address] Glomerular filtration rate/1.73 sq M.predicted 77 mL/min/1.73m*2 Normal >60 [facility] [place] [facility] Comment on above: Result Comment: Calc ulations of estimated GFR are performed using the 2020 CKD-EPI Study Refit equation without the race variable for the IDMS-Traceable creatinine methods. https://jasn.asnjournals.org/content/early/ASN.0528069 988 Performed By: #### 2 4320-2 ####ALEKSANDR MEANS ([id number])[facility] ([facility])[address] [place] [address] 31770 Glucose [Mass/Vol] 145 mg/dL High 74-99 [facility] [place] Comment on above: Performed By: #### 2 4320-2 ####ALEKSANDR MEANS ([id number])[facility] ([facility])[address] [place] [address] 79358 Potassium [Moles/Vol] 4.2 mmol/L Normal 3.5-5.3 [facility] Comment on above: Performed By: #### 2 4320-2 ####ALEKSANDR MEANS ([id number])[facility] ([facility])[address] [place] [address] Sodium [Moles/Vol] 140 mmol/L Normal 136-145 [facility] [place] Comment on above: Performed By: #### 2 4321-2 ####ALEKSANDR MEANS ([id number])[facility] ([facility] [place] [address] Urea nitrogen [Mass/Vol] 29 mg/dL High 6-23 [facility] Comment on above: Performed By: #### 2 4321-2 ####BRANDON CLARY ([id number])[facility] ([facility])[address] [place] [address] 22362 CBC W Auto Differential pane l (Bld)on 12-04-2023 Basophils (Bld) [#/Vol] 0.03 10*3/uL [facility] Basophils/100 WBC (Bld) 0.3 % 0.0 - 2.0 % [facility] Eosinophils (Bld) [#/Vol] 0.26 10*3/uL [facility] Eosinophils/100 WBC (Bld) 2.5 % 0.0 - 6.0 % [facility] Erythrocyte distribution width (RBC) [Ratio] 14.6 % High 11.5 - 14.5 % [facility] Hematocrit (Bld) [Volume fraction] 40.2 % 36.0 - 46.0 % [facility] Hemoglobin (Bld) [Mass/Vol] 12.0 g/dL 12.0 - 16.0 g/dL [facility] Immature granulocytes (Bld) [#/Vol] 0.06 10*3/uL [facility] Immature granulocytes/100 WBC (Bld) 0.6 % 0.0 - 0.9 % [facility] Comment on above: Immature Granulocyte Count (IG) includes promyelocytes, myelocytes and metamyelocytes but does not include bands. Percent differential counts (%) should be interpreted in the context of the absolute cell counts (cells/UL). Interpretation and review of laboratory results Abnormal [facility] Lymphocytes (Bld) [#/Vol] 0.95 10*3/uL Low [facility] Lymphocytes/100 WBC (Bld) 9.2 % 13.0 - 44.0 % [facility] MCH (RBC) [Entitic mass] 27.3 pg 26.0 - 34.0 pg [facility] MCHC (RBC) [Mass/Vol] 29.9 g/dL Low 32.0 - 36.0 g/dL [facility] MCV (RBC) [Entitic vol] 91 fL 80 - 100 fL [facility] Monocytes (Bld) [#/Vol] 0.53 10*3/uL [facility] Monocytes/100 WBC (Bld) 5.1 % 2.0 - 10.0 % [facility] Neutrophils (Bld) [#/Vol] 8.51 10*3/uL High [facility] Comment on above: Percent differential counts (%) should be interpreted in the context of the absolute cell counts (cells/uL). Neutrophils/100 WBC (Bld) 82.3 % 40.0 - 80.0 % [facility] Nucleated RBC/100 WBC (Bld) [Ratio] 0.0 % [facility] Platelets (Bld) [#/Vol] 355 10*3/uL [facility] RBC (Bld) [#/Vol] 4.40 10*6/uL [facility] WBC (Bld) [#/Vol] 10.3 10*3/uL [facility] Basophils (Bld) [#/Vol] 0.03 x10*3/uL Normal 0.00-0.10 [facility] Comment on above: Performed By: #### 5 7021-8 #### ALEKSANDR MEANS ([id number]) [facility] ([facility]) [address] [place] [address] 11769 Basophils/100 WBC (Bld) 0.3 % Normal 0.0-2.0 [facility] Comment on above: Performed By: #### 5 7021-8 #### ALEKSANDR MEANS ([id number]) [facility] ([facility]) [address] [place] [address] 29492 Eosinophils (Bld) [#/Vol] 0.26 x10*3/uL Normal 0.00-0.70 [facility] Comment on above: Performed By: #### 5 7021-8 #### ALEKSANDR MEANS ([id number]) [facility] ([facility]) [address] [place] [address] 86887 Eosinophils/100 WBC (Bld) 2.5 % Normal 0.0-6.0 [facility] Comment on above: Performed By: #### 5 7021-8 #### ALEKSANDR MEANS ([id number]) [facility] ([facility]) [address] [place] [address] 17241 Erythrocyte distribution width (RBC) [Ratio] 14.6 % High 11.5-14.5 [facility] Comment on above: Performed By: #### 5 7021-8 #### ALEKSANDR MEANS ([id number]) [facility] ([facility]) [address] [place] [address] 61234 Hematocrit (Bld) [Volume fraction] 40.2 % Normal 36.0-46.0 [facility] Comment on above: Performed By: #### 5 7021-8 #### ALEKSANDR MEANS ([id number]) [facility] ([facility]) [address] [place] [address] 62588 Hemoglobin (Bld) [Mass/Vol] 12.0 g/dL Normal 12.0-16.0 [facility] Comment on above: Performed By: #### 5 7021-8 #### ALEKSANDR MEANS ([id number]) [facility] ([facility]) [address] [place] [address] 99487 Immature granulocytes (Bld) [#/Vol] 0.06 x10*3/uL Normal 0.00-0.70 [facility] Comment on above: Performed By: #### 5 7021-8 #### ALEKSANDR MEANS ([id number]) [facility] ([facility]) [address] [place] [address] 13351 Immature granulocytes/100 WBC (Bld) 0.6 % Normal 0.0-0.9 [facility] Comment on above: Result Comment: Reina ture Granulocyte Count (IG) includes promyelocytes, myelocytes and metamyelocytes but does not include bands. Percent differential counts (%) should be interpreted in the context of the absolute cell counts (cells/UL). Performed By: #### 5 7021-8 #### ALEKSANDR MEANS ([id number]) [facility] ([facility]) [address] [place] [address] Lymphocytes (Bld) [#/Vol] 0.95 x10*3/uL Low 1.20-4.80 [facility] Comment on above: Performed By: #### 5 7021-8 #### ALEKSANDR MEANS ([id number]) [facility] ([facility]) [address] [place], [place] [address] Lymphocytes/100 WBC (Bld) 9.2 % Normal 13.0-44.0 [facility] Comment on above: Performed By: #### 5 7021-8 #### ALEKSANDR MEANS ([id number]) [facility] ([facility]) [address] [place], [place] [address] MCH (RBC) [Entitic mass] 27.3 pg Normal 26.0-34.0 [facility] Comment on above: Performed By: #### 5 7021-8 #### ALEKSANDR MEANS ([id number]) [facility] ([facility]) [address] [place] [address] 06707 MCHC (RBC) [Mass/Vol] 29.9 g/dL Low 32.0-36.0 [facility] Comment on above: Performed By: #### 5 7021-8 #### ALEKSANDR MEANS ([id number]) [facility] ([facility]) [address] [place] [address] 24541 MCV (RBC) [Entitic vol] 91 fL Normal 80-100 [facility] Comment on above: Performed By: #### 5 7021-8 #### ALEKSANDR MEANS ([id number]) [facility] ([facility]) [address] [place] [address] 62828 Monocytes (Bld) [#/Vol] 0.53 x10*3/uL Normal 0.10-1.00 [facility] Comment on above: Performed By: #### 5 7021-8 #### ALEKSANDR MEANS ([id number]) [facility] ([facility]) [address] [place] [address] 67548 Monocytes/100 WBC (Bld) 5.1 % Normal 2.0-10.0 [facility] Comment on above: Performed By: #### 5 7021-8 #### ALEKSANDR MEANS ([id number]) [facility] ([facility]) [address] [place] [address] 76960 Neutrophils (Bld) [#/Vol] 8.51 x10*3/uL High 1.20-7.70 [facility] Comment on above: Result Comment: Perc ent differential counts (%) should be interpreted in the context of the absolute cell counts (cells/uL). Performed By: #### 5 7021-8 #### ALEKSANDR MEANS ([id number]) [facility] ([facility]) [address] [place] [address] 06132 Neutrophils/100 WBC (Bld) 82.3 % Normal 40.0-80.0 [facility] Comment on above: Performed By: #### 5 7021-8 #### ALEKSANDR MEANS ([id number]) [facility] ([facility]) [address] [place] [address] 76613 Nucleated RBC/100 WBC (Bld) [Ratio] 0.0 /100 WBCs Normal 0.0-0.0 [facility] Comment on above: Performed By: #### 5 7021-8 #### ALEKSANDR MEANS ([id number]) [facility] ([facility]) [address] [place] [address] 61638 Platelets (Bld) [#/Vol] 355 x10*3/uL Normal 150-450 [facility] Comment on above: Performed By: #### 5 7021-8 #### ALEKSANDR MEANS ([id number]) [facility] ([facility]) [address] [place] [address] 38056 RBC (Bld) [#/Vol] 4.40 x10*6/uL Normal 4.00-5.20 [facility] Comment on above: Performed By: #### 5 7021-8 #### BRANDON CLARY ([id number]) [facility] ([facility]) [address] [place] [address] WBC (Bld) [#/Vol] 10.3 x10*3/uL Normal 4.4-11.3 [facility] Comment on above: Performed By: #### 5 7021-8 #### ALEKSANDR MEANS ([id number]) [facility] ([facility]) [address] [place] [address] CONSULTon 12-04-2023 CONSULT Neurosurgery Consult Vel Benavidez MD Patient: Shaji Esquivel Date of : 1960 (63 y.o.) Referring Provider: Trauma service PCP: Antwan Maharaj MD SUBJECTIVE: Chief Complaint: Status post fall with small right anterior temporal subarachnoid hemorrhage/contusion History of Present Illness (HPI): Patient is a 63-year-old lady with history of schizophrenia, Parkinson's disease, significant intellectual impairment who lives at a detention under the guardianship of the [facility]. History was obtained from her caregiver Padminiamy [...] as well as place which is her detention. She is able to ambulate on her [...] surgeries. Social History: She lives in a detention for the last several years. No history [...] BY VEL BENAVIDEZ, ON 12/04/2023 17:21:56 Normal [facility] CT 3D RECONSTRUCTIONon 12-03 CT 3D RECONSTRUCTION Interpreted By: Shayna Robert, STUDY: CT FACIAL BONES WO IV CONTRAST; CT 3D RECONSTRUCTION 12/04/2023 9:56 am; 12/04/2023 10:08 am INDICATION: Signs/Symptoms:Fall with injury to her face; Signs/Symptoms:trauma COMPARISON: 10/07/2022 ACCESSION NUMBER(S): [id number]; [id number] ORDERING CLINICIAN: JASMYN WADE TECHNIQUE: Thin cut [...] Shayna Cole 12/04/2023 10:40 AM Dictation workstation: [id number] [facility] CT CERVICAL SPINE WO IV CONT [facility] 12-04-2023 CT CERVICAL SPINE WO IV CONTRAST Interpreted By: Shayna Cole, STUDY: CT CERVICAL SPINE WO IV CONTRAST; 12/04/2023 9:56 am INDICATION: Signs/Symptoms:Fall with injury to neck. COMPARISON: 07/19/2023 ACCESSION NUMBER(S): [id number] ORDERING CLINICIAN: JASMYN WADE TECHNIQUE: CT images [...] Shayna Cole 12/04/2023 10:36 AM Dictation workstation: [id number] [facility] CT CHEST ABDOMEN PELVIS WITH [...] FriDec 04, 2023 2:15:21 PM EDT Normal [facility] Comment on above: Order Comment: [...] Shayna Cole 12/04/2023 10:36 AM Dictation workstation: [id number] MMODAL Interpreted By: Shayna Mantilla, STUDY: CT CERVICAL SPINE WO IV CONTRAST; 12/04/2023 9:56 am INDICATION: Signs/Symptoms:Fall with injury to neck. COMPARISON: 07/19/2023 ACCESSION NUMBER(S): [id number] ORDERING CLINICIAN: JASMYN WADE TECHNIQUE: CT images [...] thickening of the prevertebral soft tissues. MMODAL Shayan Cole MD - 12/04/2023 Interpreted By: Shayna Cole, STUDY: CT CERVICAL SPINE WO IV CONTRAST; 12/04/2023 9:56 am INDICATION: Signs/Symptoms:Fall with injury to neck. COMPARISON: 07/19/2023 ACCESSION NUMBER(S): [id number] ORDERING CLINICIAN: JASMYN WADE TECHNIQUE: CT images [...] Shayna Cole 12/04/2023 10:36 AM Dictation workstation: [id number] [facility] Work Phone: [facility] Work Phone: CT FACIAL BONES WO IV CONTRA STon 12-04-2023 CT FACIAL BONES WO IV CONTRAST Interpreted By: Shayna Cole, STUDY: CT FACIAL BONES WO IV CONTRAST; CT 3D RECONSTRUCTION 12/04/2023 9:56 am; 12/04/2023 10:08 am INDICATION: Signs/Symptoms:Fall with injury to her face; Signs/Symptoms:trauma COMPARISON: 10/07/2022 ACCESSION NUMBER(S): [id number]; [id number] ORDERING CLINICIAN: JASMYN WADE TECHNIQUE: Thin cut [...] Shayna Cole 12/04/2023 10:40 AM Dictation workstation: [id number] [facility] CT HEAD WO IV CONTRASTon CT HEAD WO IV CONTRAST Interpreted By: Shayna Cole, STUDY: CT HEAD WO IV CONTRAST; 12/04/2023 9:56 am INDICATION: Signs/Symptoms:Fall with head injury. COMPARISON: 07/19/2023 ACCESSION NUMBER(S): [id number] ORDERING CLINICIAN: JASMYN WADE TECHNIQUE: Unenhanced CT [...] Shayna Cole 12/04/2023 10:30 AM Dictation workstation: [id number] [facility] CT Head WO contraston 2023 [...] Shayna Cole 12/04/2023 10:30 AM Dictation workstation: [id number] MMODAL Interpreted By: Shayna Mantilla, STUDY: CT HEAD WO IV CONTRAST; 12/04/2023 9:56 am INDICATION: Signs/Symptoms:Fall with head injury. COMPARISON: 07/19/2023 ACCESSION NUMBER(S): [id number] ORDERING CLINICIAN: JASMYN WADE TECHNIQUE: Unenhanced CT [...] with head injury. COMPARISON: 07/19/2023 ACCESSION NUMBER(S): [id number] ORDERING CLINICIAN: JASMYN WADE TECHNIQUE: Unenhanced CT [...] Shayna Cole 12/04/2023 10:30 AM Dictation workstation: [id number] [facility] Work Phone: [facility] Work Phone: CT Unspecified body region 3 D post processingon 12-04-2023 Radiology Study observation (narrative) [facility] Work Phone: CT WRIST RIGHT WITHOUT CONTR [...] FriDec 04, 2023 8:07:23 PM EDT Normal [facility] Comment on above: Order Comment: Injur y/Trauma or Illness?:Injury/TraumaHow long have you had these symptoms (acute/chronic)?:AcuteReason for exam?:right wrist pain with injury s/p fall. ulnocarpal dislocation noted on wrist x-rayType of Exam?:InitialMechanism of injury?:fall Coagulation surface inducedo n 12-04-2023 aPTT Coag (PPP) [Time] 28 s Normal 27-38 [facility] Comment on above: Order Comment: The A PTT is no longer used for monitoring Unfractionated Heparin Therapy. For monitoring Heparin Therapy, use the Heparin Assay. Performed By: #### 1 4979-9 ####BRANDON CLARY ([id number])[facility] ([facility])[address] [place] [address] Coagulation tissue factor in ducedon 12-04-2023 PT Coag (PPP) [Time] 10.6 s Normal 9.8-12.8 [facility] Comment on above: Performed By: #### 5 902-2 #### ALEKSANDR MEANS ([id number]) [facility] ([facility]) [address] [place] [address] ED Prov Noteon 12-04-2023 ED Prov Note [facility] EMERGENCY DEPARTMENT - Emergency Medicine Attending Note: NAME: Shaji Esquivel 63 y.o. CSN: [id number] PCP: Antwan Maharaj MD History: Chief Complaint: [...] emergency d (more content not included)... Normal [facility] H AND Samuel 12-04-2023 H AND P [...] reviewed the PATTY note, labs, studies, and contact center consultant notes. I have reviewed and agree [...] denies spinal TTP. Imaging obtained at [facility] with the above findings. On physical [...] Surgery, Surgical Critical Care, and Neurocritical Care [facility] SURGICAL HISTORY & PHYSICAL/CONSULTATION [...] Used Sub (more content not included)... Normal [facility] No Panel Informationon 12-03 Interpretation and review of laboratory results Normal [facility] Dorsal dislocation a t the ulnocarpal joint versus projection. No fracture identified. MACRO: None. Signed by: Shayna Cole 12/04/2023 10:45 AM Dictation workstation: [id number] MMODAL Interpreted By: Shayna Mantilla, STUDY: XR FOREARM RIGHT 2 VIEWS; XR WRIST RIGHT 3+ VIEWS; 12/04/2023 9:40 am INDICATION: Signs/Symptoms:Fall with injury. COMPARISON: Forearm films 08/10/2021 ACCESSION NUMBER(S): [id number]; [id number] ORDERING CLINICIAN: JASMYN WADE FINDINGS: 2 portable [...] injury. COMPARISON: Forearm films 08/10/2021 ACCESSION NUMBER(S): [id number]; [id number] ORDERING CLINICIAN: JASMYN WADE FINDINGS: 2 portable [...] Shayna Cole 12/04/2023 10:45 AM Dictation workstation: [id number] [facility] Work Phone: Hematoma in the righ t frontal scalp/supraorbital region. No acute displaced facial bone fracture visualized. Mild right maxillary and bilateral sphenoid sinus mucosal thickening/debris. MACRO: None. Signed by: Shayna Cole 12/04/2023 10:40 AM Dictation workstation: [id number] MMODAL Interpreted By: Shayna Mantilla, STUDY: CT FACIAL BONES WO IV CONTRAST; CT 3D RECONSTRUCTION 12/04/2023 9:56 am; 12/04/2023 10:08 am INDICATION: Signs/Symptoms:Fall with injury to her face; Signs/Symptoms:trauma COMPARISON: 10/07/2022 ACCESSION NUMBER(S): [id number]; [id number] ORDERING CLINICIAN: JASMYN WADE TECHNIQUE: Thin cut [...] her face; Signs/Symptoms:trauma COMPARISON: 10/07/2022 ACCESSION NUMBER(S): [id number]; [id number] ORDERING CLINICIAN: JASMYN WADE TECHNIQUE: Thin cut [...] Shayna Cole 12/04/2023 10:40 AM Dictation workstation: [id number] [facility] Work Phone: [facility] Work Phone: Radiology Study observation (narrative) [facility] Work Phone: Radiology Study observation (narrative) [facility] Work Phone: No Panel InformationOrdered By: Shayna Cole on 12-04-2023 [facility] Work Phone: POC GLUCOSE - [facility] 024 Glucose [Mass/Vol] 135 mg/dL High 65-99 [facility] Glucose [Mass/Vol] 94 mg/dL Normal 65-99 [facility] PT Coag (PPP) [Time]on 12-03 INR Coag (PPP) [Relative time] 0.9 {INR} 0.9 - 1.1 [facility] INR Coag (PPP) [Relative time] 0.9 Normal 0.9-1.1 [facility] Comment on above: Performed By: #### 5 902-2 #### BRANDON CLARY ([id number]) [facility] ([facility]) [address] [place] [address] Protime-INRon 12-04-2023 PT Coag (PPP) [Time] 10.6 s [facility] XR FOREARM RIGHT 2 VIEWSon 0 12-04-2023 XR FOREARM RIGHT 2 VIEWS Interpreted By: Shayna Cole, STUDY: XR FOREARM RIGHT 2 VIEWS; XR WRIST RIGHT 3+ VIEWS; 12/04/2023 9:40 am INDICATION: Signs/Symptoms:Fall with injury. COMPARISON: Forearm films 08/10/2021 ACCESSION NUMBER(S): [id number]; [id number] ORDERING CLINICIAN: JASMYN WADE FINDINGS: 2 portable [...] Shayna Cole 12/04/2023 10:45 AM Dictation workstation: [id number] [facility] XR KNEE RIGHT 2 VIEWS [...] on FriDec 04, 2023 2:24:52 PM EDT [facility] Comment on above: Order Comment: [...] on FriDec 04, 2023 4:26:36 PM EDT [facility] Comment on above: Order Comment: [...] injury. COMPARISON: Forearm films 08/10/2021 ACCESSION NUMBER(S): [id number]; [id number] ORDERING CLINICIAN: JASMYN WADE FINDINGS: 2 portable [...] Shayna Cole 12/04/2023 10:45 AM Dictation workstation: [id number] Normal [facility] aPTTon 12-04-2023 aPTT Coag (PPP) [Time] 28 s [facility] aPTT Coag (PPP) [Time]on The APTT is no longe r used for monitoring Unfractionated Heparin Therapy. For monitoring Heparin Therapy, use the Heparin Assay. [facility] Comprehensive metabolic 2000 panelon 10-15-2023 Albumin BCP dye [Mass/Vol] 4.2 g/dL Normal 3.4-5.0 [facility] Comment on above: Performed By: #### 2 4323-8 #### ALEKSANDR MEANS ([id number]) [facility] ([facility]) [address] [place] [address] ALP [Catalytic activity/Vol] 73 U/L Normal 33-136 [facility] Comment on above: Performed By: #### 2 4323-8 #### ALEKSANDR MEANS ([id number]) [facility] ([facility]) [address] [place] [address] ALT With P-5'-P [Catalytic activity/Vol] 12 U/L Normal 7-45 [facility] Comment on above: Result Comment: Haylee ents treated with Sulfasalazine may generate falsely decreased results for ALT. Performed By: #### 2 4323-8 #### ALEKSANDR MEANS ([id number]) [facility] ([facility]) [address] [place] [address] 26869 Anion gap [Moles/Vol] 11 mmol/L Normal 10-20 [facility] Comment on above: Performed By: #### 2 4323-8 #### ALEKSANDR MEANS ([id number]) [facility] ([facility]) [address] [place] [address] 47900 AST With P-5'-P [Catalytic activity/Vol] 14 U/L Normal 9-39 [facility] Comment on above: Performed By: #### 2 4323-8 #### ALEKSANDR MEANS ([id number]) [facility] ([facility]) [address] [place] [address] Bilirubin [Mass/Vol] 0.4 mg/dL Normal 0.0-1.2 [facility] Comment on above: Performed By: #### 2 4323-8 #### ALEKSANDR MEANS ([id number]) [facility] ([facility]) [address] [place] [address] 73736 Calcium [Mass/Vol] 9.2 mg/dL Normal 8.6-10.3 [facility] Comment on above: Performed By: #### 2 4323-8 #### ALEKSANDR MEANS ([id number]) [facility] ([facility]) [address] [place] [address] 90336 Chloride [Moles/Vol] 103 mmol/L Normal 98-107 [facility] Comment on above: Performed By: #### 2 4323-8 #### ALEKSANDR MEANS ([id number]) [facility] ([facility]) [address] [place] [address] CO2 [Moles/Vol] 30 mmol/L Normal 21-32 [facility] Comment on above: Performed By: #### 2 4323-8 #### ALEKSANDR MEANS ([id number]) [facility] ([facility]) [address] [place] [address] 52856 Creatinine [Mass/Vol] 0.86 mg/dL Normal 0.50-1.05 [facility] Comment on above: Performed By: #### 2 4323-8 #### ALEKSANDR MEANS ([id number]) [facility] ([facility]) [address] [place] [address] 67966 Glomerular filtration rate/1.73 sq M.predicted 76 mL/min/1.73m*2 Normal >60 [facility] Comment on above: Result Comment: Calc ulations of estimated GFR are performed using the 2020 CKD-EPI Study Refit equation without the race variable for the IDMS-Traceable creatinine methods. https://jasn.asnjournals.org/content/early/ASN.0522821 988 Performed By: #### 2 4323-8 #### ALEKSANDR MEANS ([id number]) [facility] ([facility]) [address] [place] [address] 09844 Glucose [Mass/Vol] 149 mg/dL High 74-99 [facility] Comment on above: Performed By: #### 2 4323-8 #### ALEKSANDR MEANS ([id number]) [facility] ([facility]) [address] [place] [address] 08349 Potassium [Moles/Vol] 4.2 mmol/L Normal 3.5-5.3 [facility] Comment on above: Performed By: #### 2 4323-8 #### ALEKSANDR MEANS ([id number]) [facility] [facility]) [address] [place] [address] Protein [Mass/Vol] 7.3 g/dL Normal 6.4-8.2 [facility] Comment on above: Performed By: #### 2 4323-8 #### ALEKSANDR MEANS ([id number]) [facility] ([facility]) [address] [place] [address] Sodium [Moles/Vol] 140 mmol/L Normal 136-145 [facility] Comment on above: Performed By: #### 2 4323-8 #### ALEKSANDR MEANS ([id number]) [facility] ([facility]) [address] [place] [address] Urea nitrogen [Mass/Vol] 23 mg/dL Normal 6-23 [facility] Comment on above: Performed By: #### 2 4323-8 #### ALEKSANDR MEANS ([id number]) [facility] ([facility]) [address] [place] [address]6068 HbA1c (Bld) [Mass fraction]o n 10-15-2023 Average glucose Estimated from glycated hemoglobin (Bld) [Mass/Vol] 180 mg/dL Normal Not Established [facility] Comment on above: Order Comment: Diagn osis of Diabetes-Adults Non-Diabetic: < or = 5.6% Increased risk for developing diabetes: 5.7-6.4% Diagnostic of diabetes: > or = 6.5% Monitoring of Diabetes Age (y)....................... Therapeutic Goal (%) Adults: >18.........................<7.0 Pediatrics: 13-18...................<7.5 Pediatrics: 7-12....................<8.0 Pediatrics: 0-6..................... 7.5-8.5 [place] [employer]. Diabetes Care 33(S1)Jun 2009 Performed By: #### 4 548-4 #### BRANDON CLARY ([id number]) [facility] ([facility]) [address] [id number] Hemoglobin A1c/Hemoglobin.to sharla 10-15-2023 HbA1c (Bld) [Mass fraction] 7.9 % High see below [facility] Comment on above: Order Comment: Diagn osis of Diabetes-Adults Non-Diabetic: < or = 5.6% Increased risk for developing diabetes: 5.7-6.4% Diagnostic of diabetes: > or = 6.5% Monitoring of Diabetes Age (y)....................... Therapeutic Goal (%) Adults: >18.........................<7.0 Pediatrics: 13-18...................<7.5 Pediatrics: 7-12....................<8.0 Pediatrics: 0-6..................... 7.5-8.5 [place] [employer]. Diabetes Care 33(S1), Jun 2009 Performed By: #### 4 548-4 #### ALEKSANDR MEANS ([id number]) [facility] ([facility]) [facility] [place] [address] Lipid 1996 panelon 4 Cholesterol [Mass/Vol] 133 mg/dL Normal 0-199 [facility] Comment on above: Result Comment: Age [...] By: #### 2 4331-1 #### ALEKSANDR MEANS ([id number]) [facility] ([facility]) [address] [place] [address] Cholesterol in HDL [Mass/Vol] 49.0 mg/dL Normal [facility] Comment on above: Result Comment: Age Very Low Low Normal High 0-19 Y < 35 < 40 40-45 ---- 20-24 Y ---- < 40 >45 ---- >24 Y ---- < 40 40-60 >60 Performed By: #### 2 4331-1 #### ALEKSANDR MEANS ([id number]) [facility] ([facility]) [facility] [place] [address] Cholesterol in LDL [Mass/Vol] 48 mg/dL Normal <=99 [facility] Comment on above: Result Comment: Near Borderline AGE Desirable Optimal High High Very High 0-19 Y 0 - 109 --- 110-129 >/= 130 ---- 20-24 Y 0 - 119 --- 120-159 >/= 160 ---- >24 Y 0 - 99 100-129 130-159 160-189 >/=190 Performed By: #### 2 4331-1 #### ALEKSANDR MEANS (62713) [facility] ([facility]) [facility] [place] [address] Cholesterol in VLDL [Mass/Vol] 36 mg/dL Normal 0-40 [facility] Comment on above: Performed By: #### 2 4331-1 #### ALEKSANDR MEANS ([id number]) [facility] ([facility]) [address] [place] [address]16 CHOLESTEROL/HDL RATIO 2.7 Normal [facility] Comment on above: Result Comment: Ref Values Desirable < 3.4 High Risk > 5.0 Performed By: #### 2 4331-1 #### ALEKSANDR MEANS ([id number]) [facility] ([facility]) [address] [place] [address] NON HDL CHOLESTEROL 84 mg/dL Normal 0-149 [facility] Comment on above: Result Comment: Age Desirable Borderline High High Very High 0-19 Y 0 - 119 120 - 144 >/= 145 >/= 160 20-24 Y 0 - 149 150 - 189 >/= 190 ---- >24 Y 30 mg/dL above LDL Cholesterol goal Performed By: #### 2 4331-1 #### ALEKSANDR MEANS ([id number]) [facility] ([facility]) [address] [place] [address] Triglyceride [Mass/Vol] 179 mg/dL High 0-149 [facility] Comment on above: Result Comment: Age [...] By: #### 2 4331-1 #### ALEKSANDR MEANS ([id number]) [facility] ([facility]) [address] [place] [address] M. tuberculosis stim IFN-g a nd spot count panel (Bld)on 10-15-2023 Gamma interferon negative control spot count (Bld) [#] Passed Normal [facility] Comment on above: Performed By: #### 7 4281-7 #### QUEST CHANTL ([id number]) [id number] [facility] [address] [place] M. tuberculosis stim IFN-g CFP10 Ag spot count (Bld) [#] 0 Normal [facility] Comment on above: Performed By: #### 7 4281-7 #### QUEST CHANTL ([id number]) [address] [facility] [address] [place] M. tuberculosis stim IFN-g ESAT-6 Ag spot count (Bld) [#] 0 Normal [facility] Comment on above: Performed By: #### 7 4281-7 #### QUEST CHANTL ([id number]) [address] [facility] [address] [place] M. tuberculosis stim IFN-g Ql (Bld) [Interp] Negative Normal Negative [facility] Comment on above: Result Comment: A [...] By: #### 7 4281-7 #### QUEST CHANTL ([id number]) [address] [facility] [address] [place] Mitogen stimulated gamma interferon positive control spot count (Bld) [#] Passed Normal [facility] Comment on above: Result Comment: For additional information, please refer to http://education.[employer]/faq/IXC811 (This link is being provided for informational/ educational purposes only.) Performed By: #### 7 4281-7 #### QUEST CARLOS ([id number]) [address] [facility] [address] [place], [place] TSH WITH REFLEX TO FREE T4 I F ABNORMALon 10-15-2023 TSH Qn 2.83 m[IU]/L Normal 0.44-3.98 [facility] Comment on above: Order Comment: TSH t esting is performed using different testing methodology at [facility] than at other [facility]. Direct result comparisons should only be made within the same method. Performed By: #### T URIEL #### BRANDON CLARY ([id number]) [facility] ([facility]) [address] [place] [address] CT CERVICAL SPINE WO IV CONT [facility] 07-19-2023 CT CERVICAL SPINE WO IV CONTRAST Interpreted By: Serena Mcghee, STUDY: CT HEAD WO IV CONTRAST; CT CERVICAL SPINE WO IV CONTRAST; 07/19/2023 8:43 pm INDICATION: Signs/Symptoms:Fall. COMPARISON: CT head dated 11/06/2022; CT of the cervical spine dated 11/06/2022. ACCESSION NUMBER(S): [id number]; [id number] ORDERING CLINICIAN: OSIEL VERGARA TECHNIQUE: Noncontrast axial [...] Serena Mcghee 07/19/2023 9:01 PM Dictation workstation: [id number] [facility] CT HEAD WO IV CONTRASTon CT HEAD WO IV CONTRAST Interpreted By: Serena Mcghee, STUDY: CT HEAD WO IV CONTRAST; CT CERVICAL SPINE WO IV CONTRAST; 07/19/2023 8:43 pm INDICATION: Signs/Symptoms:Fall. COMPARISON: CT head dated 11/06/2022; CT of the cervical spine dated 11/06/2022. ACCESSION NUMBER(S): [id number]; [id number] ORDERING CLINICIAN: OSIEL VERGARA TECHNIQUE: Noncontrast axial [...] Serena Mcghee 07/19/2023 9:01 PM Dictation workstation: [id number] [facility] MG Breast - bilateral Screen ingon 07-11-2023 No mammographic evidence of malignancy. BI-RADS CATEGORY: BI-RADS Category: 1 Negative. Recommendation: Routine Screening Mammogram in 1 Year. Recommended Date: 1 Year. Laterality: Bilateral. Signed by: Bala Zheng 07/11/2023 8:26 AM Dictation workstation: [id number] Interpreted By: Bala Zheng, STUDY: ; 07/10/2023 10:08 am ACCESSION NUMBER(S): [id number] ORDERING CLINICIAN: RAFA JACINTO INDICATION: Screening. COMPARISON: [...] STUDY: ; 07/10/2023 10:08 am ACCESSION NUMBER(S): [id number] ORDERING CLINICIAN: RAFA JACINTO INDICATION: Screening. COMPARISON: [...] Bala Zheng 07/11/2023 8:26 AM Dictation workstation: [id number] [facility] Work Phone: MG Breast - bilateral Screen ingOrdered By: Bala Zheng on 07-11-2023 [facility] Work Phone: MG Breast - bilateral Screen ingon 07-10-2023 Radiology Study observation (narrative) [facility] Work Phone: PT Progress Noteon 3 PT [...] code time is 23 minutes. Therapeutic exercise (60722): timed minutes 23, units 2 . Recheck, [...] Visit number: 9 Insurance: Evaluating therapist: Bibi iVllela PT, DPT PT dx: Z74.09, R26.89 Beginnin2022 [...] code time is 23 minutes. Therapeutic exercise (33075): timed minutes 23, units 2 . Recheck, [...] Feb 04 2023 9:58AM EST (Author) Normal [facility] Progress Noteon 3 PT Progress Note [...] resulted in the following injury: stitches, hematoma. SHAIJ does not have a fear of falling. [...] code time is 38 minutes. Therapeutic exercise (65956): timed minutes 38, units 3 . Step [...] Jan 29 2023 10:00AM EST (Author) Normal [facility] PT Progress Noteon 3 PT Progress Note [...] code time is 38 minutes. Therapeutic exercise (24499): timed minutes 38, units 3 . SEE [...] cone taps fwd x8 ea. Neuromuscular Re-education (53702):. Hand taps all directions x2' ea LE [...] Jan 21 2023 9:39AM EST (Author) Normal [facility] Progress Noteon 3 PT Progress Note [...] outside // bars to further challenge balance. 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 Therapeutic exercise (17852): timed minutes 38, units 3 . SEE [...] taps fwd x8 ea (N). Neuromuscular Re-education (32518):. Hand taps all directions x2' ea LE [...] Jan 14 2023 2:47PM EST (Author) Normal [facility] PT Progress Noteon 3 PT Progress Note [...] code time is 38 minutes. Therapeutic exercise (88396): timed minutes 30, units 2 . SEE [...] with ball x10 ea L. Neuromuscular Re-education (13659): timed minutes 8, units 1 . Hand taps all directions x2' e (more content not included)... Normal [facility] Therapy Re-eval Noteon 12-31 Therapy Re-eval Note [...] code time is 38 minutes. Therapeutic exercise (60970): timed minutes 30, units 2 . SEE [...] with ball x10 ea L. Neuromuscular Re-education (74369): timed minutes 8, units 1 (more content [...] code time is 30 minutes. Therapeutic exercise (28277): timed minutes 30, units 2 . [employer] [...] code time is 38 minutes. Therapeutic exercise (01403): timed minutes 38, units 3 . [employer] [...] Dec 19 2022 10:47AM EST (Author) Normal [facility] PT Progress Noteon 3 PT Progress Note [...] code time is 38 minutes. Therapeutic exercise (26227): timed minutes 38, units 3 . [employer] [...] Dec 03 2022 4:12PM EST (Author) Normal [facility] PT Initial Evaluationon 11-07 PT Initial Evaluation [...] when considering positive factors including support in detention with barriers such as understanding of exercises. The pt verbalized understanding and agreement to goals and POC. Thank you for this referral and please call [phone] with any questions or concerns. Clinical Presentation: [...] SHe uses w/c when out of the detention. Pt denies pain in LEs. Nurse, Anne, [...] and prognosis. Living Environment: walk-in shower . prison- no steps Uses shower chair. Personal Factors [...] contact via or Sue Simons PharmD PGY-1 R Developer [phone] Electronic Signatures: Sue Simons (FORMERLY [facility]) (Signed 11-Nov-2022 15:41) Authored: Clinical Event Note Ann Cardoza (PharmD) (Signed 12-Nov-2022 08:03) Co-Signer: Clinical Event Note Last Updated: 12-Nov-2022 08:03 by Ann Cardoza (PharmD) Normal [facility] CBC AND DIFFERENTIALon 11-06 % AUTOMATED IMMATURE GRAN 0.4 % Normal 0.0 - 0.9 [facility] Comment on above: Result Comment: Reina ture Granulocyte Count (IG) includes promyelocytes, myelocytes and metamyelocytes but does not include bands. Percent differential counts (%) should be interpreted in the context of the absolute cell counts (cells/L). Performed By: #### C BCDF #### [address] [address] Basophils (Bld) [#/Vol] 0.01 10*3/uL Normal 0.00 - 0.10 [facility] Comment on above: Performed By: #### C BCDF #### [address] [address] Basophils/100 WBC (Bld) 0.1 % Normal 0.0 - 2.0 [facility] Comment on above: Performed By: #### C BCDF #### [address] [address] Eosinophils (Bld) [#/Vol] 0.15 10*3/uL Normal 0.00 - 0.70 [facility] Comment on above: Performed By: #### C BCDF #### [address] [address] Eosinophils/100 WBC (Bld) 1.8 % Normal 0.0 - 6.0 [facility] Comment on above: Performed By: #### C BCDF #### [address] [address] Erythrocyte distribution width (RBC) [Ratio] 13.2 % Normal 11.5 - 14.5 [facility] Comment on above: Performed By: #### C BCDF #### [address] [address] Hematocrit (Bld) [Volume fraction] 39.3 % Normal 36.0 - 46.0 [facility] Comment on above: Performed By: #### C BCDF #### [address] [address] Hemoglobin (Bld) [Mass/Vol] 11.7 g/dL Low 12.0 - 16.0 [facility] Comment on above: Performed By: #### C BCDF #### [address] [address] Lymphocytes (Bld) [#/Vol] 0.30 10*3/uL Low 1.20 - 4.80 [facility] Comment on above: Performed By: #### C BCDF #### [address] [address] Lymphocytes/100 WBC (Bld) 3.6 % Normal 13.0 - 44.0 [facility] Comment on above: Performed By: #### C BCDF #### [address] [address] MCHC (RBC) [Mass/Vol] 29.8 g/dL Low 32.0 - 36.0 [facility] Comment on above: Performed By: #### C BCDF #### [address] [address] MCV (RBC) [Entitic vol] 94 fL Normal 80 - 100 [facility] Comment on above: Performed By: #### C BCDF #### [address] [address] Monocytes (Bld) [#/Vol] 0.19 10*3/uL Normal 0.10 - 1.00 [facility] Comment on above: Performed By: #### C BCDF #### [address] [address] Monocytes/100 WBC (Bld) 2.3 % Normal 2.0 - 10.0 [facility] Comment on above: Performed By: #### C BCDF #### [address] [address] Neutrophils (Bld) [#/Vol] 7.70 10*3/uL Normal 1.20 - 7.70 [facility] Comment on above: Result Comment: Perc ent differential counts (%) should be interpreted in the context of the absolute cell counts (cells/L). Performed By: #### C BCDF #### [address] [address] Neutrophils/100 WBC (Bld) 91.8 % Normal 40.0 - 80.0 [facility] Comment on above: Performed By: #### C BCDF #### [address] [address] Platelets (Bld) [#/Vol] 286 10*3/uL Normal 150 - 450 [facility] Comment on above: Performed By: #### C BCDF #### [address] [address] RBC 4.19 x10E12/L Normal 4.00 - 5.20 [facility] Comment on above: Performed By: #### C BCDF #### [address] [address] WBC (Bld) [#/Vol] 8.4 10*3/uL Normal 4.4 - 11.3 [facility] Comment on above: Performed By: #### C BCDF #### [address] [address] CHEST 1 VIEWon 11-06-2022 CHEST 1 VIEW Patient Name: SHAJI ESQUIVEL STUDY: CHEST 1 VIEW; 11/06/2022 9:49 am INDICATION: chest pain . COMPARISON: 05/25/2022 ACCESSION NUMBER(S): [id number] ORDERING CLINICIAN: ERICKSON HERNANDEZ FINDINGS: Artifact is present on the films. The heart is not enlarged. No infiltrate, pleural effusion or pneumothorax is seen. IMPRESSION: No active cardiopulmonary disease. Electronically signed by: MARYSOL PEÑA MD Normal [facility] COMPREHENSIVE PANELon 2022 Albumin [Mass/Vol] 4.3 g/dL Normal 3.4 - 5.0 [facility] Comment on above: Performed By: #### C MP #### [address] [address] ALP [Catalytic activity/Vol] 66 U/L Normal 33 - 136 [facility] Comment on above: Performed By: #### C MP #### [address] [address] ALT [Catalytic activity/Vol] 6 U/L Low 7 - 45 [facility] Comment on above: Result Comment: Haylee ents treated with Sulfasalazine may generate falsely decreased results for ALT. Performed By: #### C MP #### [address] [address] Anion gap [Moles/Vol] 13 mmol/L Normal 10 - 20 [facility] Comment on above: Performed By: #### C MP #### [place] [id number] AST [Catalytic activity/Vol] 18 U/L Normal 9 - 39 [facility] Comment on above: Performed By: #### C MP #### [address] [address] Bilirubin [Mass/Vol] 0.4 mg/dL Normal 0.0 - 1.2 [facility] Comment on above: Performed By: #### C MP #### [address] [address] Calcium [Mass/Vol] 9.6 mg/dL Normal 8.6 - 10.3 [facility] Comment on above: Performed By: #### C MP #### [address] [address] Chloride [Moles/Vol] 102 mmol/L Normal 98 - 107 [facility] Comment on above: Performed By: #### C MP #### [address] [address] Creatinine [Mass/Vol] 0.88 mg/dL Normal 0.50 - 1.05 [facility] Comment on above: Performed By: #### C MP #### [address] [address] GFR/1.73 sq M.predicted among non-blacks MDRD (S/P/Bld) [Vol rate/Area] 74 mL/min/{1.73_m2} Normal >90 [facility] Comment on above: Result Comment: CALC ULATIONS OF ESTIMATED GFR ARE PERFORMED USING THE 2020 CKD-EPI STUDY REFIT EQUATION WITHOUT THE RACE VARIABLE FOR THE IDMS-TRACEABLE CREATININE METHODS. https://jasn.asnjournals.org/content/early/ASN.9186188 988 Performed By: #### C MP #### [address] [address] Glucose [Mass/Vol] 160 mg/dL High 74 - 99 [facility] Comment on above: Performed By: #### C MP #### [address] [address] HCO3 (Bld) [Moles/Vol] 28 mmol/L Normal 21 - 32 [facility] Comment on above: Performed By: #### C MP #### [address] [address] Potassium [Moles/Vol] 4.1 mmol/L Normal 3.5 - 5.3 [facility] Comment on above: Performed By: #### C MP #### [address] [address] Protein [Mass/Vol] 7.6 g/dL Normal 6.4 - 8.2 [facility] Comment on above: Performed By: #### C MP #### [address] [address] Sodium [Moles/Vol] 139 mmol/L Normal 136 - 145 [facility] Comment on above: Performed By: #### C MP #### [address] [address] Urea nitrogen [Mass/Vol] 31 mg/dL High 6 - 23 [facility] Comment on above: Performed By: #### C MP #### [address] [address] [address] HEAD WO CONTRASTon 2022 CT HEAD WO CONTRAST Patient Name: SHAJI ESQUIVEL STUDY: CT HEAD WO CONTRAST; 11/06/2022 11:23 am INDICATION: weakness . COMPARISON: 10/07/2022 ACCESSION NUMBER(S): [id number] ORDERING CLINICIAN: ERICKSON HERNANDEZ TECHNIQUE: Noncontrast axial [...] Electronically signed by: KATIE HIDALGO MD Normal [facility] CT Head without Contraston 0 11-06-2022 CT Head limited WO contrast Normal [facility] Work Phone: CT Neck with Contraston - CT Neck W contrast IV Normal [facility] Work Phone: Complete Blood Count + Diffe rentialon 11-06-2022 Basophils/100 WBC (Bld) 0.1 % 0.0 - 2.0 [facility] Work Phone: Erythrocyte distribution width (RBC) [Ratio] 13.2 % See Below [facility] Work Phone: Comment on above: Reference Range: 11. 5 - 14.5 Hematocrit (Bld) [Volume fraction] 39.3 % See Below [facility] Services[facility] Work Phone: Comment on above: Reference Range: 36. 0 - 46.0 Hemoglobin (Bld) [Mass/Vol] 11.7 g/dL below low threshold See Below [facility] [place] Work Phone: [phone] Comment on above: Reference Range: 12. 0 - 16.0 Lymphocytes/100 WBC (Bld) 3.6 % See Below [facility] brendan [place] Work Phone: [phone] Comment on above: Reference Range: 13. 0 - 44.0 MCHC (RBC) [Mass/Vol] 29.8 g/dL below low threshold See Below [facility] [place] Work Phone: [phone] Comment on above: Reference Range: 32. 0 - 36.0 MCV (RBC) [Entitic vol] 94 fL 80 - 100 [facility] [place] Work Phone: [phone] Monocytes/100 WBC (Bld) 2.3 % 2.0 - 10.0 [facility] cardona [place] Work Phone: [phone] Neutrophils/100 WBC (Bld) 91.8 % See Below [facility] [place] Work Phone: [phone] Comment on above: Reference Range: 40. 0 - 80.0 Platelets (Bld) [#/Vol] 286 10*3/uL 150 - 450 [facility] [place] Work Phone: [phone] RBC (Bld) [#/Vol] 4.19 {x10E12/L} See Below [facility] [place] Work Phone: [phone] Comment on above: Reference Range: 4.0 0 - 5.20 WBC (Bld) [#/Vol] 8.4 10*3/uL 4.4 - 11.3 [facility] [place] Work Phone: Complete Blood Count + Differential 0.01 {x10E9/L} See Below [facility] Work Phone: Comment on above: Reference Range: 0.0 0 - 0.10 Complete Blood Count + Differential 0.15 {x10E9/L} See Below [facility] Work Phone: Comment on above: Reference Range: 0.0 0 - 0.70 Complete Blood Count + Differential 0.19 {x10E9/L} See Below [facility] Work Phone: Comment on above: Reference Range: 0.1 0 - 1.00 Complete Blood Count + Differential 0.30 {x10E9/L} below low threshold See Below [facility] Work Phone: Comment on above: Reference Range: 1.2 0 - 4.80 Complete Blood Count + Differential 7.70 {x10E9/L} See Below [facility] Work Phone: Comment on above: Reference Range: 1.2 0 - 7.70 Percent differential counts (%) should be interpreted in the context of the absolute cell counts (cells/L). Complete Blood Count + Differential 1.8 % 0.0 - 6.0 [facility] Work Phone: Complete Blood Count + Differential 0.4 % 0.0 - 0.9 [facility] Work Phone: Comment on above: Immature Granulocyte Count (IG) includes promyelocytes, myelocytes and metamyelocytes but does not include bands. Percent differential counts (%) should be interpreted in the context of the absolute cell counts (cells/L). Cult, Urineon 11-06-2022 Bacteria identified Cx Nom (U) Abnormal [facility] Work Phone: Laboratory - Chemistry and C hemistry - challengeon 11-06-2022 Albumin BCP dye [Mass/Vol] 4.3 g/dL 3.4 - 5.0 [facility] [place] Work Phone: ALP [Catalytic activity/Vol] 66 U/L 33 - 136 [facility] brendan [place] Work Phone: ALT With P-5'-P [Catalytic activity/Vol] 6 U/L below low threshold 7 - 45 [facility] brendan [place] Work Phone: Comment on above: Patients treated wit h Sulfasalazine may generate falsely decreased results for ALT. Anion gap [Moles/Vol] 13 mmol/L 10 - 20 [facility] brendan [place] Work Phone: AST With P-5'-P [Catalytic activity/Vol] 18 U/L 9 - 39 [facility] brendan [place] Work Phone: Bilirubin [Mass/Vol] 0.4 mg/dL 0.0 - 1.2 [facility] brendan [place] Work Phone: Calcium [Mass/Vol] 9.6 mg/dL 8.6 - 10.3 [facility] cardona [place] Work Phone: Chloride [Moles/Vol] 102 mmol/L 98 - 107 [facility] brendan [place] Work Phone: CO2 [Moles/Vol] 28 mmol/L 21 - 32 [facility] [facility] [place] Work Phone: Creatinine [Mass/Vol] 0.88 mg/dL See Below [facility] [place] Work Phone: Comment on above: Reference Range: 0.5 0 - 1.05 Glucose [Mass/Vol] 160 mg/dL above high threshold 74 - 99 [facility] [place] [place] Work Phone: Potassium [Moles/Vol] 4.1 mmol/L 3.5 - 5.3 [facility] Work Phone: [phone] Protein [Mass/Vol] 7.6 g/dL 6.4 - 8.2 [facility] Work Phone: [phone] Sodium [Moles/Vol] 139 mmol/L 136 - 145 [facility] [place] Work Phone: [phone] Urea nitrogen [Mass/Vol] 31 mg/dL above high threshold 6 - 23 [facility] Work Phone: [phone] NECK WITH CONTRASTon 0 11-06-[address] NECK WITH CONTRAST Patient Name: SHAJI ESQUIVEL STUDY: CT NECK WITH CONTRAST; 11/06/2022 11:23 am INDICATION: sore throat. . COMPARISON: 01/11/2017. ACCESSION NUMBER(S): [id number] ORDERING CLINICIAN: ERICKSON HERNANDEZ TECHNIQUE: Axial CT [...] region. Electronically signed by: DELLA NORMAN MD [facility] Panel Informationon 11-06 74 {mL/min/1.73m2} >90 [facility] Services-[facility] Work Phone: Comment on above: CALCULATIONS OF VELASQUEZ MATED GFR ARE PERFORMED USING THE 2020 CKD-EPI STUDY REFIT EQUATION WITHOUT THE RACE VARIABLE FOR THE IDMS-TRACEABLE CREATININE METHODS.https://jasn.asnjournals.org/content//ASN .5486962949 Provider Note - ED v3on 10-09 Provider [...] She did have a fall at her detention yesterday and has bruises to her L [...] History Descrip (more content not included)... Normal [facility] Radiology 11-06-2022 XR Chest Single view Normal [facility] [place] Work Phone: Risk Screen - [...] an injured patient at a Trauma Center ([facility]/[place]/[facility]/[place]): no Electronic Signatures: Saida Fairbanks ([place]) (Signed 06-Nov-2022 10:09) Authored: Preferred Language, Patient Preferred Pharmacy, Advanced Directives, Family Violence Adult, Learning Assessment (Patient), Learning Assessment (Other Learner), Pressure Injury/TB/Substance, Pressure Injury, CAGE Last Updated: 06-Nov-2022 10:09 by Saida Fairbanks ([place]ST[place]) Normal [facility] TROPONIN I, HIGH SENSITIVITY on 11-06-2022 TROPONIN I, HIGH SENSITIVITY 4 ng/L Normal 0 - 13 [facility] Comment on above: Result Comment: . [...] performed using a different testing methodology at [facility] than at other [facility]. Direct result comparisons should only be made within the same method. Performed By: #### U [facility] #### [facility] [address] [place] [address] TROPONIN I, HIGH SENSITIVITY 4 ng/L Normal 0 - 13 [facility] Comment on above: Result Comment: . [...] performed using a different testing methodology at [facility] than at other [facility]. Direct result comparisons should only be made within the same method. Performed By: #### T [facility] #### [id number] [place] [address] Tropinin I.cardiac panel High sensitivity method 4 [...] performed using a different testing methodology at [facility] than at other [facility]. Direct result comparisons should only be made [...] performed using a different testing methodology at [facility] than at other [facility]. Direct result comparisons should only be made within the same method. Triage - EDon 11-06-2022 Triage - ED Quick Triage: The patient and/or guardian verbally acknowledges placement for services into the following (when Urgent Care Service hours are operating):emergency department Chart Review: ARRIVAL INFORMATION Mode of Arrival: ambulance Agency: [facility] Agency Name: [facility] CHIEF COMPLAINT SHAJI ESQUIVEL is a Female patient with a chief complaint of weakness (Brought to ED per [facility] squad from [facility]. Staff reports that upon arrival to their facility today she seemed weaker than normal. She did have a fall at her detention yesterday and has bruises to her L [...] support. Weight: 130.0 pounds. Calculated 59.0 kg. [place] Coma Scale: Best Eye Response: (E4) spontaneous Best Motor Response: (M6) obeys commands Best Verbal Response: (V5) oriented [place] Score: 15 Cough lasting greater than 3 [...] 06-Nov-2022 09:52 by Jackie Bonilla ([place]) Normal [facility] UA MICROSCOPICon 11-06-2022 RBC 3 /HPF Normal 0-5 [facility] Comment on above: Performed By: #### U RINC #### [facility] [address] [place] [address] SQUAMOUS EPITH. CELLS 1 /HPF Normal [facility] Comment on above: Performed By: #### U RINC #### [facility] [address] [place] [address] WBC 16 /HPF Abnormal 0-5 [facility] Comment on above: Performed By: #### U RINC #### [facility] [address] [place] [address] URINALYSIS WITH CULTURE IF I NDICATEDon 11-06-2022 Appearance (U) HAZY Normal CLEAR [facility] Comment on above: Performed By: #### U AR[facility] #### [address] [address] Bilirubin Ql (U) Negative Normal NEGATIVE Located within [facility] Comment on above: Performed By: #### U [facility] #### [place] [address] Color (U) Yellow Normal STRAW,YELLOW [facility] Comment on above: Performed By: #### U [facility] #### [address] [address] Glucose Ql (U) Negative Normal NEGATIVE [facility] Comment on above: Performed By: #### U ARFX #### [address] [address] Hemoglobin Ql (U) Negative Normal NEGATIVE [facility] Comment on above: Performed By: #### U ARFX #### [address] [address] Ketones Ql (U) Negative Normal NEGATIVE [facility] Comment on above: Performed By: #### U AR[facility] #### [address] [address] Leukocyte esterase Test strip Ql (U) TRACE Abnormal NEGATIVE [facility] Comment on above: Performed By: #### U ARFX #### [address] [address] Nitrite Ql (U) Positive Abnormal NEGATIVE [facility] Comment on above: Performed By: #### U ARFX #### [address] [address] pH (U) 7.0 [pH] Normal 5.0 - 8.0 [facility] Comment on above: Performed By: #### U AR[facility] #### [address] [address] Protein Ql (U) Negative Normal NEGATIVE [facility] Comment on above: Performed By: #### U AR[facility] #### [address] [address] Specific gravity (U) [Rel density] 1.036 High 1.005 - 1.035 [facility] Comment on above: Performed By: #### U AR[facility] #### [address] [address] Urobilinogen (U) [Mass/Vol] mg/dL Normal 0.0 - 1.9 [facility] Comment on above: Performed By: #### U ARFX #### [address] [address] Color (U) Yellow See Below [facility] Work Phone: Comment on above: Reference Range: STR AW,YELLOW Glucose Ql (U) Negative NEGATIVE [facility] Work Phone: Ketones Ql (U) Negative NEGATIVE [facility] Work Phone: Leukocyte esterase Test strip Ql (U) TRACE Abnormal NEGATIVE [facility] Work Phone: pH (U) 7.0 [pH] 5.0 - 8.0 [facility] Work Phone: Protein (U) [Mass/Vol] Negative NEGATIVE [facility] Work Phone: RBC (U) [#/Vol] Negative NEGATIVE [facility] Work Phone: Specific gravity (U) [Rel density] 1.036 1 above high threshold See Below [facility] [place] Work Phone: Comment on above: Reference Range: 1.0 05 - 1.035 URINALYSIS WITH CULTURE IF INDICATED Positive Abnormal NEGATIVE [facility] [place] Work Phone: [phone] URINALYSIS WITH CULTURE IF INDICATED <2.0 0.0 - 1.9 [facility] [place] [place] Work Phone: [phone] URINALYSIS WITH CULTURE IF INDICATED Negative NEGATIVE [facility] [place] [place] Work Phone: [phone] URINALYSIS WITH CULTURE IF INDICATED HAZY CLEAR [facility] [place] Work Phone: URINE CULTURE,BACTERIALon URINE CULTURE,BACTERIAL PATIENT: SHAJI ESQUIVEL LOCATION: [facility] BILL#: [id number] : 60 AGE: SEX: F ORDERED BY: [...] DOSE DEPENDENT NS=NONSUSCEPTIBLE X=REPORTED IN ERROR Normal [facility] Comment on above: Performed By: #### U [facility] #### [facility] [address] [place] [address] Urinalysis, Microscopicon Urinalysis, Microscopic 1 {/HPF} [facility] [place] Work Phone: [phone] Urinalysis, Microscopic 3 {/HPF} 0-5 [facility] ritan [place] Work Phone: [phone] Urinalysis, Microscopic 16 {/HPF} Abnormal 0-5 [facility] Work Phone: [phone] CT C-SPINE WO CONTRASTon CT C-SPINE WO CONTRAST Patient Name: SHAJI ESQUIVEL STUDY: CT HEAD WO CONTRAST; CT FACIAL BONES; CT CORONAL/SAGITTAL/OBLIQU E RECON; CT C-SPINE WO CONTRAST; 10/07/2022 10:13 pm INDICATION: fall . COMPARISON: CT head and cervical spine 08/18/2022 ACCESSION NUMBER(S): [id number]; [id number]; [id number]; [id number] ORDERING CLINICIAN: OSIEL VERGARA TECHNIQUE: Axial noncontrast [...] spine. Electronically signed by: RENA ABBOTT MD [facility] CT FACIAL BONES W/O CONTRAST on 10-08-2022 CT FACIAL BONES W/O CONTRAST Patient Name: SHAJI ESQUIVEL STUDY: CT HEAD WO CONTRAST; CT FACIAL BONES; CT CORONAL/SAGITTAL/OBLIQU E RECON; CT C-SPINE WO CONTRAST; 10/07/2022 10:13 pm INDICATION: fall . COMPARISON: CT head and cervical spine 08/18/2022 ACCESSION NUMBER(S): [id number]; [id number]; [id number]; [id number] ORDERING CLINICIAN: OSIEL VERGARA TECHNIQUE: Axial noncontrast [...] spine. Electronically signed by: RENA ABBOTT MD [facility] CT HEAD WO CONTRASTon 2022 CT HEAD WO CONTRAST Patient Name: SHAJI ESQUIVEL STUDY: CT HEAD WO CONTRAST; CT FACIAL BONES; CT CORONAL/SAGITTAL/OBLIQU E RECON; CT C-SPINE WO CONTRAST; 10/07/2022 10:13 pm INDICATION: fall . COMPARISON: CT head and cervical spine 08/18/2022 ACCESSION NUMBER(S): [id number]; [id number]; [id number]; [id number] ORDERING CLINICIAN: OSIEL VERGARA TECHNIQUE: Axial noncontrast [...] spine. Electronically signed by: RENA ABBOTT MD [facility] CT IMAGE RECONSTRUCTION 3D V OLUME and MIPon 10-08-2022 CT IMAGE RECONSTRUCTION 3D VOLUME and MIP Patient Name: SHAJI SEQUIVEL STUDY: CT HEAD WO CONTRAST; CT FACIAL BONES; CT CORONAL/SAGITTAL/OBLIQU E RECON; CT C-SPINE WO CONTRAST; 10/07/2022 10:13 pm INDICATION: fall . COMPARISON: CT head and cervical spine 08/18/2022 ACCESSION NUMBER(S): [id number]; [id number]; [id number]; [id number] ORDERING CLINICIAN: OSIEL VERGARA TECHNIQUE: Axial noncontrast [...] spine. 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 ROS: All systems are negative [...] of fall (pt here via EMS from detention, pt was reaching over to pick something [...] [October 07 (more content not included)... Normal [facility] Risk Screen - Adult Emergenc yon [...] material; verbal instruction Cultural Considerationsnone Developmental Considerationsnone Spiritism Considerationsnone Learning Assessment (Other Learner): Learning Assessment (Other Learner): Other learner availableno Pressure Injury/TB/Substance: Pressure Injury: Do you have a coughno Smoking Statusnever smoker Admission Risk Screen: Significant IndicatorsComplete CAGE: CAGE: Is this an injured patient at a Trauma Center ([facility]/[place]/[facility] [facility]/[place]): no Electronic Signatures: Lakshmi Aguayo (RN) (Signed 07-Oct-2022 21:02) Authored: Preferred Language, Patient Preferred Pharmacy, Advanced Directives, Family Violence Adult, Learning Assessment (Patient), Learning Assessment (Other Learner), Pressure Injury/TB/Substance, Pressure Injury, CAGE Last Updated: 07-Oct-2022 21:02 by Lakshmi Aguayo (RN) [facility] Triage - EDon 10-07-2022 Triage - ED Chart Review: ARRIVAL INFORMATION Mode of Arrival: ambulance Agency Name: [place] CHIEF COMPLAINT SHAJI ESQUIVEL is a Female patient with a chief complaint of fall (pt here via EMS from detention, pt was reaching over to pick something [...] obeys commands Best Verbal Response: (V5) oriented [place] Score: 15 Patient has homicidal thoughts: no [...] Last Updated: 07-Oct-2022 21:24 by Lakshmi Aguayo) [facility] Clinical Event Note-ED Post Discharge Result Follow [...] results and how to follow up. [address] [place] [address] Dr. [facility], [facility] Would recommend DC Keflex and start Bactrim. If there are any other questions for the ED Post-Discharge Culture Follow Up Team, please contact [phone]. . Ann Cardoza PharmD, [facility] Clinical Pharmacist - Culture Callback Pharmacist [facility] Electronic Signatures: Ann Cardoza (PharmAmeena) (Signed 22-Aug-2022 09:09) Authored: Clinical Event Note Last Updated: 22-Aug-2022 09:09 by Ann Cardoza (PharmAmeena) [facility] Clinical Event Note-ED Post Discharge Result Follow [...] room. The patient was discharged back their detention. The Culture Callback Team will turn over [...] Post-Discharge Culture Follow Up Team, please contact [phone]. . Ramón Kimble PharmD PGY1 R Developer Culture Callback Pharmacist [facility] Electronic Signatures: Ramón Kimble ([facility]) (Signed 22-Aug-2022 09:48) Authored: Clinical Event Note Ann CardozaPharmAmeena) (Signed 23-Aug-2022 08:16) Co-Signer: Clinical Event Note Last Updated: 23-Aug-2022 08:16 by Ann CardozaPharmAmeena) [facility] Clinical Event Note-ED Post Discharge Result Follow [...] Post-Discharge Culture Follow Up Team, please contact [phone]. . Angeles Rai PharmD [facility] PGY1 R Developer Electronic Signatures: Angeles RaiFORMERLY [facility]) (Signed 21-Aug-2022 14:15) Authored: Clinical Event Note Ann CardozaPharmAmeena) (Signed 22-Aug-2022 08:22) Co-Signer: Clinical Event Note Last Updated: 22-Aug-2022 08:22 by Ann Cardoza (PharmD) [facility] BASIC METABOLIC PANELon 03- Anion gap [Moles/Vol] 14 mmol/L Normal 10 - 20 [facility] Comment on above: Performed By: #### B MP #### [address] [address] Calcium [Mass/Vol] 9.0 mg/dL Normal 8.6 - 10.3 [facility] Comment on above: Performed By: #### B MP #### [address] [address] Chloride [Moles/Vol] 110 mmol/L High 98 - 107 [facility] Comment on above: Performed By: #### B MP #### [address] [address] Creatinine [Mass/Vol] 0.78 mg/dL Normal 0.50 - 1.05 [facility] Comment on above: Performed By: #### B MP #### [address] [address] GFR/1.73 sq M.predicted among non-blacks MDRD (S/P/Bld) [Vol rate/Area] 86 mL/min/{1.73_m2} Normal >90 [facility] Comment on above: Result Comment: CALC ULATIONS OF ESTIMATED GFR ARE PERFORMED USING THE 2020 CKD-EPI STUDY REFIT EQUATION WITHOUT THE RACE VARIABLE FOR THE IDMS-TRACEABLE CREATININE METHODS. https://jasn.asnjournals.org/content//ASN.1038724 988 Performed By: #### B MP #### [address] [address] Glucose [Mass/Vol] 117 mg/dL High 74 - 99 [facility] Comment on above: Performed By: #### B MP #### [address] [address] HCO3 (Bld) [Moles/Vol] 25 mmol/L Normal 21 - 32 [facility] Comment on above: Performed By: #### B MP #### [address] [address] Potassium [Moles/Vol] 3.9 mmol/L Normal 3.5 - 5.3 [facility] Comment on above: Performed By: #### B MP #### [address] [address] Sodium [Moles/Vol] 145 mmol/L Normal 136 - 145 [facility] Comment on above: Performed By: #### B MP #### [address] [address] Urea nitrogen [Mass/Vol] 29 mg/dL High 6 - 23 [facility] Comment on above: Performed By: #### B MP #### [address] [address] CBC AND DIFFERENTIALon 08-18 % AUTOMATED IMMATURE GRAN 0.3 % Normal 0.0 - 0.9 [facility] Comment on above: Result Comment: Reina ture Granulocyte Count (IG) includes promyelocytes, myelocytes and metamyelocytes but does not include bands. Percent differential counts (%) should be interpreted in the context of the absolute cell counts (cells/L). Performed By: #### U RINC #### [facility] [address] [place] [address] Basophils (Bld) [#/Vol] 0.03 10*3/uL Normal 0.00 - 0.10 [facility] Comment on above: Performed By: #### U RINC #### [facility] [address] [place] [address] Basophils/100 WBC (Bld) 0.4 % Normal 0.0 - 2.0 [facility] Comment on above: Performed By: #### U RINC #### [facility] [address] [place] [address] Eosinophils (Bld) [#/Vol] 0.03 10*3/uL Normal 0.00 - 0.70 [facility] Comment on above: Performed By: #### U RINC #### [facility] [address] [place] [address] Eosinophils/100 WBC (Bld) 0.4 % Normal 0.0 - 6.0 [facility] Comment on above: Performed By: #### U RINC #### [facility] [address] [place] [address] Lymphocytes (Bld) [#/Vol] 1.31 10*3/uL Normal 1.20 - 4.80 [facility] Comment on above: Performed By: #### U RINC #### [facility] [address] [place] [address] Lymphocytes/100 WBC (Bld) 17.6 % Normal 13.0 - 44.0 [facility] Comment on above: Performed By: #### U RINC #### [facility] [address] [place] [address] Monocytes (Bld) [#/Vol] 0.46 10*3/uL Normal 0.10 - 1.00 [facility] Comment on above: Performed By: #### U RINC #### [facility] [address] [place] [address] Monocytes/100 WBC (Bld) 6.2 % Normal 2.0 - 10.0 [facility] Comment on above: Performed By: #### U RINC #### [facility] [address] [place] [address] Neutrophils (Bld) [#/Vol] 5.60 10*3/uL Normal 1.20 - 7.70 [facility] Comment on above: Result Comment: Perc ent differential counts (%) should be interpreted in the context of the absolute cell counts (cells/L). Performed By: #### U RINC #### [facility] [address] [place] [address] Neutrophils/100 WBC (Bld) 75.1 % Normal 40.0 - 80.0 [facility] Comment on above: Performed By: #### U RINC #### [facility] [address] [place] [address] Erythrocyte distribution width (RBC) [Ratio] 13.4 % Normal 11.5 - 14.5 [facility] Comment on above: Performed By: #### U RINC #### [facility] [address] [place] [address] Hematocrit (Bld) [Volume fraction] 41.4 % Normal 36.0 - 46.0 [facility] Comment on above: Performed By: #### U RINC #### [facility] [address] [place] [address] Hemoglobin (Bld) [Mass/Vol] 12.3 g/dL Normal 12.0 - 16.0 [facility] Comment on above: Performed By: #### U RINC #### [facility] [address] [place] [address] MCHC (RBC) [Mass/Vol] 29.7 g/dL Low 32.0 - 36.0 [facility] Comment on above: Performed By: #### U RINC #### [facility] [address] [place] [address] MCV (RBC) [Entitic vol] 94 fL Normal 80 - 100 [facility] Comment on above: Performed By: #### U RINC #### [facility] [address] [place] [address] Platelets (Bld) [#/Vol] 291 10*3/uL Normal 150 - 450 [facility] Comment on above: Performed By: #### U RINC #### [facility] [address] [place] [address] RBC 4.41 x10E12/L Normal 4.00 - 5.20 [facility] Comment on above: Performed By: #### U RINC #### [facility] [address] [place] [address] WBC (Bld) [#/Vol] 7.5 10*3/uL Normal 4.4 - 11.3 [facility] Comment on above: Performed By: #### U RINC #### [facility] [address] [place] [address] CT C-SPINE WO CONTRASTon CT C-SPINE WO CONTRAST Patient Name: SHAJI ESQUIVEL STUDY: CT C-SPINE WO CONTRAST; 08/18/2022 1:14 pm INDICATION: fall . COMPARISON: None. ACCESSION NUMBER(S): [id number] ORDERING CLINICIAN: SHARMAINE DEAN TECHNIQUE: Unenhanced axial [...] changes. Electronically signed by: MIKE PRICE MD [facility] CT HEAD WO CONTRASTon 2022 CT HEAD WO CONTRAST Patient Name: SHAJI ESQUIVEL STUDY: CT HEAD WO CONTRAST; 08/18/2022 1:14 pm INDICATION: fall . COMPARISON: 08/09/2022 ACCESSION NUMBER(S): [id number] ORDERING CLINICIAN: SHARMAINE DEAN TECHNIQUE: Unenhanced images [...] process. Electronically signed by: MIKE PRICE MD [facility] HAND MIN 3 VIEWSon 3 HAND MIN 3 VIEWS Patient Name: SHAJI ESQUIVEL STUDY: HAND MIN 3 VIEWS; Left; 08/18/2022 1:00 pm INDICATION: fall . COMPARISON: None. ACCESSION NUMBER(S): [id number] ORDERING CLINICIAN: SHARMAINE DEAN FINDINGS: Exam is limited by flexion of the fingers and inability to the remove a ring from the 4th digit. All no definite acute fracture within limits of this exam. IMPRESSION: No definite acute findings. Electronically signed by: HAO BELLO MD [facility] Provider Note - ED v3on 08-07 Provider Note - ED v3 Provider Note: Chart Review: ED NOTES ED NOTES: HPI: Patient brought to the emergency department by norah after reported fall at a local detention. 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 Sensation and motor function of extremities grossly intact. Psych: Appropriate mood and affect. I have reviewed and confirmed nurses/medics notes for patient past, social and family history. Portions of this note were dictated by speech recognition. An attempt at proof reading was made to minimize errors. Minor errors in rn emergency room may be present. HISTORY OF PRESENTING ILLNESS [...] (GERD) Description:Anemia (more content not included)... Normal [facility] Risk Screen - Adult Emergenc yon [...] Communicatenone Learning Preferencesaudio Cultural Considerationsnone Developmental Considerationsnone Spiritism Considerationsnone Pressure Injury/TB/Substance: Pressure Injury: Do you have a coughno Smoking Statusnever smoker Alcohol Usedenies Drug Usedenies Admission Risk Screen: Significant IndicatorsComplete CAGE: CAGE: Is this an injured patient at a Trauma Center ([facility]/[place] a/[place]): no Electronic Signatures: Anne Zavaleta) (Signed 18-Aug-2022 12:49) Authored: Preferred Language, Patient Preferred Pharmacy, Advanced Directives, Family Violence Adult, Learning Assessment (Patient), Learning Assessment (Other Learner), Pressure Injury/TB/Substance, Pressure Injury, CAGE Last Updated: 18-Aug-2022 12:49 by Anne Zavaleta (RN) [facility] Triage - EDon 08-18-2022 Triage - ED [...] 18-Aug-2022 12:48 by Anne Zavaleta ([place]) Normal [facility] UA MICROSCOPICon 08-18-2022 BACTERIA 4+ /HPF Abnormal [facility] Comment on above: Performed By: #### U RINC #### [facility] [address] [place] [address] Mucus Ql (Urine sed) 3+ /LPF Normal [facility] Comment on above: Performed By: #### U RINC #### [facility] [address] [place] [address] RBC 2 /HPF Normal 0-5 [facility] Comment on above: Performed By: #### U RINC #### [facility] [address] [place] [address] SQUAMOUS EPITH. CELLS 1 /HPF Normal [facility] Comment on above: Performed By: #### U RINC #### [facility] [address] [place] [address] WBC 18 /HPF Abnormal 0-5 [facility] Comment on above: Performed By: #### U RINC #### [facility] [address] [place] [address] URINALYSIS WITH CULTURE IF I NDICATEDon 08-18-2022 Appearance (U) HAZY Normal CLEAR [facility] Comment on above: Performed By: #### U ARFX #### [facility] [address] [place] [address] Bilirubin Ql (U) Negative Normal NEGATIVE Located within [facility] Comment on above: Performed By: #### U ARFX #### [place] [address] Color (U) Serenity Normal STRAW,YELLOW [facility] Comment on above: Performed By: #### U ARFX #### [place] [address] Glucose Ql (U) Negative Normal NEGATIVE [facility] Comment on above: Performed By: #### U ARFX #### [place] [address] Hemoglobin Ql (U) Negative Normal NEGATIVE [facility] Comment on above: Performed By: #### U ARFX #### [place] [address] Ketones Ql (U) 20(1+) Abnormal NEGATIVE [facility] Comment on above: Performed By: #### U ARFX #### [place] [address] Leukocyte esterase Test strip Ql (U) TRACE Abnormal NEGATIVE [facility] Comment on above: Performed By: #### U ARFX #### [place] [address] Nitrite Ql (U) Positive Abnormal NEGATIVE [facility] Comment on above: Performed By: #### U ARFX #### [place] [address] pH (U) 5.0 [pH] Normal 5.0 - 8.0 [facility] Comment on above: Performed By: #### U ARFX #### [place] [address] Protein Ql (U) 30(1+) Abnormal NEGATIVE [facility] Comment on above: Performed By: #### U ARFX #### [place] [address] Specific gravity (U) [Rel density] 1.029 Normal 1.005 - 1.035 [facility] Comment on above: Performed By: #### U ARFX #### [place] [address] Urobilinogen (U) [Mass/Vol] 2.0 mg/dL High 0.0 - 1.9 [facility] Comment on above: Result Comment: Due [...] urobilinogen. Performed By: #### U ARFX #### [place] [address] Lab Specimen Source Normal [facility] Comment on above: Performed By: #### U ARFX #### [place] [address] Performed By: #### U RINC #### [facility] [address] [place] [address] URINE CULTURE,BACTERIALon URINE CULTURE,BACTERIAL PATIENT: SHAJI ESQUIVEL LOCATION: [facility]#: [id number] : 60 AGE: SEX: F ORDERED BY: [...] DOSE DEPENDENT NS=NONSUSCEPTIBLE X=REPORTED IN ERROR Normal [facility] Comment on above: Performed By: #### U [facility] ####[id number] [place] [address] CT C-SPINE WO CONTRASTon CT C-SPINE WO CONTRAST Addendum Begins Patient Name: SHAJI ESQUIVEL ADDENDUM: 3D volume rendered images were provided and reviewed. Electronically signed by: ZULEMA BRAXTON MD Addendum Ends Patient Name: SHAJI ESQUIVEL STUDY: CT HEAD WO CONTRAST; CT FACIAL BONES; CT C-SPINE WO CONTRAST; 08/09/2022 10:10 am INDICATION: head injury ; fall with injury . COMPARISON: None. ACCESSION NUMBER(S): [id number]; [id number]; [id number] ORDERING CLINICIAN: ERICKSON HERNANDEZ TECHNIQUE: Noncontrast axial [...] spine. Electronically signed by: ZULEMA BRAXTON MD [facility] CT FACIAL BONES W/O CONTRAST on 08-09-2022 [...] with injury . COMPARISON: None. ACCESSION NUMBER(S): [id number]; [id number]; [id number] ORDERING CLINICIAN: ERICKSON HERNANDEZ TECHNIQUE: Noncontrast axial [...] spine. Electronically signed by: ZULEMA BRAXTON MD [facility] CT HEAD WO CONTRASTon 2022 CT HEAD WO CONTRAST Addendum Begins Patient Name: SHAJI ESQUIVEL ADDENDUM: 3D volume rendered images were provided and reviewed. Electronically signed by: ZULEMA BRAXTON MD Addendum Ends Patient Name: SHAJI ESQUIVEL STUDY: CT HEAD WO CONTRAST; CT FACIAL BONES; CT C-SPINE WO CONTRAST; 08/09/2022 10:10 am INDICATION: head injury ; fall with injury . COMPARISON: None. ACCESSION NUMBER(S): [id number]; [id number]; [id number] ORDERING CLINICIAN: ERICKSON HERNANDEZ TECHNIQUE: Noncontrast axial [...] spine. Electronically signed by: ZULEMA BRAXTON MD [facility] CT IMAGE RECONSTRUCTION 3D V OLUME and [...] with injury . COMPARISON: None. ACCESSION NUMBER(S): [id number]; [id number]; [id number] ORDERING CLINICIAN: ERICKSON HERNANDEZ TECHNIQUE: Noncontrast axial [...] spine. Electronically signed by: ZULEMA BRAXTON MD [facility] Provider Note - ED v3on 03-0 Provider [...] SIGNS: T PRBP SpO2O2(LPM) %FiO2 Method 09-Aug-2022 09:23:00-36.20386206/75 98 room air, no respiratory support MDM [...] of Care: (more content not included)... Normal [facility] Risk Screen - Adult Emergenc yon [...] Communicatenone Learning Preferencesaudio Cultural Considerationsnone Developmental Considerationsnone Spiritism Considerationsnone Pressure Injury/TB/Substance: Pressure Injury: Do you have a coughno Smoking Statusnever smoker Alcohol Usedenies Drug Usedenies Admission Risk Screen: Significant IndicatorsComplete CAGE: CAGE: Is this an injured patient at a Trauma Center ([facility]/[place] a/[place]): no Electronic Signatures: Anna Bermudez ([place]) (Signed 09-Aug-2022 09:26) Authored: Preferred Language, Patient Preferred Pharmacy, Advanced Directives, Family Violence Adult, Learning Assessment (Patient), Learning Assessment (Other Learner), Pressure Injury/TB/Substance, Pressure Injury, CAGE Last Updated: 09-Aug-2022 09:26 by Anna Bermudez (RN) [facility] Triage - EDon 08-09-2022 Triage - ED [...] BMI (kg/m2): 24.218 Calculated BSA (m2) 1.62 [place] Coma Scale: Best Eye Response: (E4) spontaneous Best Motor Response: (M6) obeys commands Best Verbal Response: (V4) confused Knightsen Score: 14 Allergies: no Patient has homicidal [...] Updated: 09-Aug-2022 09:25 by Anna Bermudez (RN) [facility] CHEST 1 VIEWon 05-26-2022 CHEST 1 VIEW STUDY: Chest Radiograph; 05/25/2022 10:15 PM INDICATION: Trouble swallowing. Looking for foreign body. COMPARISON: 08/10/2021 XR Chest ACCESSION NUMBER(S): [id number] ORDERING CLINICIAN: FRANCE LOWE MD TECHNIQUE: Frontal chest was obtained at 2215 hours. FINDINGS: No radiodense foreign body is identified. Both lungs are clear. The heart and mediastinum are of normal size and contour. No pleural effusion. No pneumothorax. No acute bony abnormality identified. IMPRESSION: No findings of an acute cardiopulmonary process. Signed by Sachin Helney MD Electronically signed by: SACHIN HENLEY MD [facility] SOFT TISSUE NECKon SOFT TISSUE NECK STUDY: Soft Tissue Neck Radiographs; 05/25/2022 at 10:17 PM INDICATION: Difficulty swallowing. Evaluate for foreign body. COMPARISON: XR chest of same date, 05/25/22. ACCESSION NUMBER(S): [id number] ORDERING CLINICIAN: FRANCE LOWE MD TECHNIQUE: Two [...] MD Electronically signed by: FARIDA LUCIANO MD [facility] Provider Note - ED v3on 05-09 Provider Note - ED v3 Provider Note: Chart Review: ED NOTES ED NOTES: History of Present Illness: Female presenting to emergency department from [facility] after choking on a piece [...] pertinent to complaint Social history: Lives in [facility], denies EtOH or drug use [...] SIGNS: T PRBP SpO2O2(LPM) %FiO2 Method 25-May-2022 23:13:00-9401528/90 95 room air, no respiratory support 25-May-2022 19:37:00-1198985/80 96 room air, no respiratory support 25-May-2022 18:53:00-36.22851427/82 99 room air, no respiratory support MDM [...] Course, Clini (more content not included)... Normal [facility] Risk Screen - Adult Emergenc yon [...] Communicatenone Learning Preferencesaudio Cultural Considerationsnone Developmental Considerationsnone Spiritism Considerationsnone Learning Assessment (Other Learner): Learning Assessment (Other Learner): Other learner availableno Pressure Injury/TB/Substance: Pressure Injury: Do you have a coughno Smoking Statusnever smoker Alcohol Usedenies Drug Usedenies Admission Risk Screen: Significant IndicatorsComplete CAGE: CAGE: Is this an injured patient at a Trauma Center ([facility]i a/[place]meralda): no Electronic Signatures: Anne Zavaleta ([place]) (Signed 25-May-2022 19:05) Authored: Preferred Language, Patient Preferred Pharmacy, Advanced Directives, Family Violence Adult, Learning Assessment (Patient), Learning Assessment (Other Learner), Pressure Injury/TB/Substance, Pressure Injury, CAGE Last Updated: 25-May-2022 19:05 by Anne Zavaleta (RN) [facility] Triage - EDon 05-25-2022 Triage - ED Chart Review: ARRIVAL INFORMATION Mode of Arrival: ambulance Agency Name: [facility] CHIEF COMPLAINT SHAJI ESQUIVEL is a Female [...] to assess Risk Screens Suicide Risk Screen Talbot Risk Screen: unable to assess Talbot Risk Screen Brunson Fall Scale Screening Unable [...] Updated: 25-May-2022 19:04 by Anne Zavaleta ([place]) [facility] VASC LAB Venous Duplex Ultra sound DVTon 11-14-2022 VASC LAB [place] [address] [phone], Vascular Lab Report Lower Venous Duplex Ultrasound Patient Name: SHAJI Pruitt Reading Physician: [id number] Deshaun Lee MD Study Date: 04/22/2022 Referring ANTWAN MAHARAJ Physician: MRN/PID: [id number] PCP: Accession/Order#: [id number] CC Report to: Date of : 1960 Technologist: Tanna Drake RVT Gender: F Technologist 2: Admission Status: Outpatient Location Performed: [place] Diagnosis/ICD: R60.0-Localized (leg) edema; M79.89-Right leg swelling Procedure/CPT: 99050 Peripheral venous duplex scan for DVT Limited-59860 CONCLUSIONS: Right Lower Venous: No evidence of [...] Iliac Yes None CFV Yes None Spontaneous/Phasic [id number] Deshaun Lee MD Final Normal [facility] XR LUMBAR PUNCTURE (DIAGNOST IC) WITH GAIT ANALYSISon 04-17-2022 XR LUMBAR PUNCTURE (DIAGNOSTIC) WITH GAIT ANALYSIS EXAMINATION: XR LUMBAR PUNCTURE (DIAGNOSTIC) WITH GAIT ANALYSIS CLINICAL INDICATION: NPHORDERING SYSTEM PROVIDED HISTORY: NPH, TECHNOLOGIST PROVIDED HISTORY: Illness/Other Reason for exam: G91.2 (ICD-10-CM) - NPH (normal pressure hydrocephalus) ([facility]LY [facility] Encounter Type: Initial Additional signs and symptoms: no Fluoro dose in mGy: 14.5 ORDERING SYSTEM PROVIDED DIAGNOSIS CODES: G91.2 NPH (normal pressure hydrocephalus) ([facility]) PHYSICIAN: Dr. Tong FLUOROSCOPY DOSE: Fluoro dose [...] FriApr 17, 2022 10:14:57 AM EST Normal [facility] Comment on above: Order Comment: Injur y/Trauma or Illness?:Illness/Other How long have you had these symptoms (acute/chronic)?:Acute Reason for exam?:G91.2 (ICD-10-CM) - NPH (normal pressure hydrocephalus) ([facility] Type of Exam?:Initial Additional signs and symptoms?:no Fluoro time in minutes:16 Fluoro dose in mGy?:14.5 CBC panel Auto (Bld)on 04-15 Erythrocyte distribution width (RBC) [Entitic vol] 12.3 % 11.6 - 14.8 % [facility] Hematocrit (Bld) [Volume fraction] 39.5 % 36 - 46 % [facility] Hemoglobin (Bld) [Mass/Vol] 12.0 g/dL 12 - 16 g/dL [facility] Interpretation and review of laboratory results Abnormal [facility] MCH (RBC) [Entitic mass] 29.2 pg 26 - 34 pg [facility] MCHC (RBC) [Mass/Vol] 30.4 g/dL Low 31 - 37 g/dL [facility] MCV (RBC) [Entitic vol] 96.1 fL 80 - 100 fL [facility] Nucleated RBC (Bld) [#/Vol] 0.00 10*3/uL [facility] Nucleated RBC/100 WBC (Bld) [Ratio] 0.0 % [facility] Platelet mean volume (Bld) [Entitic vol] 10.0 fL 9.4 - 12.4 fL [facility] Platelets (Bld) [#/Vol] 299 10*3/uL [facility] RBC (Bld) [#/Vol] 4.11 10*6/uL [facility] ealth WBC (Bld) [#/Vol] 6.64 10*3/uL [facility] MARCELL Teston 02-26-2019 MARCELL Test Negative Normal Negative [facility] Comment on above: Performed By: #### [id number] #### [place] Misc Micro SubSection , Glucose POCon 02-25-2019 Glucose [Mass/Vol] 97 mg/dL Normal 70-99 [facility] Comment on above: Performed By: #### 5 [id number] #### [place] POC Subsection [facility] [place] [address] XR UPPER GI SERIESon 019 1. Limited study. 2. No esophageal mass or stricture. 3. Findings suggestive of gastritis with possible ulcers in the gastric antrum. 4. Large amount of gastroesophageal reflux. [employer] Workstation ID: [id number] [facility] EXAMINATION: XR UPPE R GI SERIES [...] esophagus. No evidence of gastric outlet obstruction. [facility] Interface, Rad In Mikey [employer] - [...] antrum. 4. Large amount of gastroesophageal reflux. [employer] Workstation ID: [id number] [facility] US Abdomen Completeon 2018 US Abdomen Complete Exam Date/Time: 09/17/2018 08:09 EDT Reason for Exam: ABD PAIN UNSPECIFIED LOCATION Report STUDY: US Abdomen Complete; 09/17/2018 8:09 am INDICATION: 58 y/o F with ABD PAIN UNSPECIFIED LOCATION. COMPARISON: None. ACCESSION NUMBER(S): [id number] ORDERING CLINICIAN: Antwan Maharaj TECHNIQUE: Routine ultrasound [...] by: Marysol Peña MD Technologist: HARIKA Normal [facility] Ferritinon 12-25-2017 Ferritin 5 ng/mL Low 13-150 [facility] Comment on above: Result Comment: Samp les from patients routinely receiving high dose biotin therapy(100-300 mg/day) may show falsely decreased results. Please correlateclinically. Performed By: #### C BCWOD, CMET, LIPID, HBA1C ####Unless otherwise noted, all testing performed by [address] [id number]: [id number] Director: David Mcclain M.D. Iron, Totalon 12-25-2017 Iron, Total 44 mcg/dL Low 50-170 [facility] Comment on above: Performed By: #### C BCWOD, CMET, LIPID, HBA1C ####Unless otherwise noted, all testing performed by [address] [id number]: [id number] Director: David Mcclain M.D. Vitamin B12on 12-25-2017 Cobalamins (Vitamin B12) 322 pg/mL Normal 193-986 [facility] Comment on above: Performed By: #### C BCWOD, CMET, LIPID, HBA1C ####Unless otherwise noted, all testing performed by [address] [phone]: [id number] Director: David Mcclain M.D. CBC with Diffon 12-23-2017 Basophils Auto #/vol (Bld) 0.0 K/mcL Normal 0-0.2 [facility] Comment on above: Performed By: #### C BCWOD, CMET, LIPID, HBA1C ####Unless otherwise noted, all testing performed by [place] [phone]: [id number] Director: David Mcclain M.D. Basophils/100 WBC Auto (Bld) 0.3 % Normal [facility] Comment on above: Performed By: #### C BCWOD, CMET, LIPID, HBA1C ####Unless otherwise noted, all testing performed by [place] [phone]: [id number] Director: David Mcclain M.D. Eosinophils 0.3 K/mcL Normal 0-0.5 [facility] Comment on above: Performed By: #### C BCWOD, CMET, LIPID, HBA1C ####Unless otherwise noted, all testing performed by [address] [phone]: [id number] Director: David Mcclain M.D. Eosinophils/100 leukocytes 4.3 % Normal [facility] Comment on above: Performed By: #### C BCWOD, CMET, LIPID, HBA1C ####Unless otherwise noted, all testing performed by [address] [phone]: [id number] Director: David Mcclain M.D. Erythrocyte distribution width Auto Ratio (RBC) 14.5 % High 10.0-14.4 [facility] Comment on above: Performed By: #### C BCWOD, CMET, LIPID, HBA1C ####Unless otherwise noted, all testing performed by [address] [phone]: [id number] Director: David Mcclain M.D. Erythrocytes (RBC) 3.87 M/mcL Normal 3.7-5.0 [facility] Comment on above: Performed By: #### C BCWOD, CMET, LIPID, HBA1C ####Unless otherwise noted, all testing performed by [address] [phone]: [id number] Director: David Mcclain M.D. Hematocrit (HCT) 33.5 % Low 34.4-44.8 [facility] Comment on above: Performed By: #### C BCWOD, CMET, LIPID, HBA1C ####Unless otherwise noted, all testing performed by [address] [phone]: [id number] Director: David Mcclain M.D. Hemoglobin mass conc (Bld) 10.9 g/dL Low 11.6-15.4 [facility] Comment on above: Performed By: #### C BCWOD, CMET, LIPID, HBA1C ####Unless otherwise noted, all testing performed by [address] [phone]: [id number] Director: David Mcclain M.D. Lymphocytes 2.4 K/mcL Normal 1.0-3.7 [facility] Comment on above: Performed By: #### C BCWOD, CMET, LIPID, HBA1C ####Unless otherwise noted, all testing performed by [address] [phone]: [id number] Director: David Mcclain M.D. Lymphocytes/100 leukocytes 35.0 % Normal [facility] Comment on above: Performed By: #### C BCWOD, CMET, LIPID, HBA1C ####Unless otherwise noted, all testing performed by [address] [phone]: [id number] Director: David Mcclain M.D. MCH 28.2 pg Normal 27.9-33.9 [facility] Comment on above: Performed By: #### C BCWOD, CMET, LIPID, HBA1C ####Unless otherwise noted, all testing performed by [address] [phone]: [id number] Director: David Mcclain M.D. MCHC mass conc (RBC) 32.6 g/dL Low 33.1-35.1 [facility] Comment on above: Performed By: #### C BCWOD, CMET, LIPID, HBA1C ####Unless otherwise noted, all testing performed by [address] [phone]: [id number] Director: David Mcclain M.D. MCV 86.4 fL Normal 82.6-98.9 [facility] Comment on above: Performed By: #### C BCWOD, CMET, LIPID, HBA1C ####Unless otherwise noted, all testing performed by [address] [phone]: [id number] Director: David Mcclain M.D. Monocytes 0.5 K/mcL Normal 0.1-0.6 [facility] Comment on above: Performed By: #### C BCWOD, CMET, LIPID, HBA1C ####Unless otherwise noted, all testing performed by [address]8509CLIA: [id number] Director: David Mcclain M.D. Monocytes/100 leukocytes 7.4 % Normal [facility] Comment on above: Performed By: #### C BCWOD, CMET, LIPID, HBA1C ####Unless otherwise noted, all testing performed by [address]8509CLIA: [id number] Director: David Mcclain M.D. Neutrophils 3.6 K/mcL Normal 1.2-6.9 [facility] Comment on above: Performed By: #### C BCWOD, CMET, LIPID, HBA1C ####Unless otherwise noted, all testing performed by [address]8509CLIA: [id number] Director: David Mcclain M.D. Platelet mean volume (PMV) 8.1 fL Normal 7.0-10.6 [facility] Comment on above: Performed By: #### C BCWOD, CMET, LIPID, HBA1C ####Unless otherwise noted, all testing performed by [address]8509[address]IA: [id number] Director: David Mcclain M.D. Platelets 285 K/mcL Normal 162-402 [facility] Comment on above: Performed By: #### C BCWOD, CMET, LIPID, HBA1C ####Unless otherwise noted, all testing performed by [address] [phone]: [id number] Director: David Mcclain M.D. Segmented Neut % 53.0 % Normal [facility] Comment on above: Performed By: #### C BCWOD, CMET, LIPID, HBA1C ####Unless otherwise noted, all testing performed by [address] [phone]: [id number] Director: David Mcclain M.D. WBC (Leukocytes) 6.8 K/mcL Normal 3.4-10.6 [facility] Comment on above: Performed By: #### C BCWOD, CMET, LIPID, HBA1C ####Unless otherwise noted, all testing performed by [address] [phone]: [id number] Director: David Mcclain M.D. [facility] 12-23-2017 Alanine aminotransferase (ALT) 17 U/L Normal 14-65 [facility] Comment on above: Result Comment: This test result might be falsely depressed or falsely elevated onsamples drawn from patients taking Sulfasalazine and Sulfapyridine.Venipuncture should occur prior to taking either of these drugs. Performed By: #### C BCWOD, CMET, LIPID, HBA1C ####Unless otherwise noted, all testing performed by [address] [phone]: [id number] Director: David Mcclain M.D. Albumin 3.3 g/dL Normal 3.2-5.2 [facility] Comment on above: Performed By: #### C BCWOD, CMET, LIPID, HBA1C ####Unless otherwise noted, all testing performed by [address] [phone]: [id number] Director: David Mcclain M.D. Alkaline phosphatase (ALP) 35 U/L Low 40-150 [facility] Comment on above: Performed By: #### C BCWOD, CMET, LIPID, HBA1C ####Unless otherwise noted, all testing performed by [address] [phone]: [id number] Director: David Mcclain M.D. Aspartate aminotransferase (AST) 9 U/L Normal 0-45 [facility] Comment on above: Result Comment: This test result might be falsely depressed or falsely elevated onsamples drawn from patients taking Sulfasalazine and Sulfapyridine.Venipuncture should occur prior to taking either of these drugs. Performed By: #### C BCWOD, CMET, LIPID, HBA1C ####Unless otherwise noted, all testing performed by [address] [phone]: [id number] Director: David Mcclain M.D. Bilirubin (total) 0.2 mg/dL Low 0.3-1.2 [facility] Comment on above: Performed By: #### C BCWOD, CMET, LIPID, HBA1C ####Unless otherwise noted, all testing performed by [address] [phone]: [id number] Director: David Mcclain M.D. Calcium 8.9 mg/dL Normal 8.4-10.2 [facility] Comment on above: Performed By: #### C BCWOD, CMET, LIPID, HBA1C ####Unless otherwise noted, all testing performed by [address] [phone]: [id number] Director: David Mcclain M.D. Chloride 108 mmol/L Normal 98-108 [facility] Comment on above: Performed By: #### C BCWOD, CMET, LIPID, HBA1C ####Unless otherwise noted, all testing performed by [address] [phone]: [id number] Director: David Mcclain M.D. CO2 24 mmol/L Normal 21-32 [facility] Comment on above: Performed By: #### C BCWOD, CMET, LIPID, HBA1C ####Unless otherwise noted, all testing performed by [address] [phone]: [id number] Director: David Mcclain M.D. Creatinine 0.94 mg/dL Normal 0.40-1.10 [facility] Comment on above: Performed By: #### C BCWOD, CMET, LIPID, HBA1C ####Unless otherwise noted, all testing performed by [address] [phone]: [id number] Director: David Mcclain M.D. eGFR (black) mL/min/{1.73_m2} Normal [facility] Comment on above: Result Comment: Afri can [place] GFR Calc Performed By: #### C BCWOD, CMET, LIPID, HBA1C ####Unless otherwise noted, all testing performed by [address] [phone]: [id number] Director: David Mcclain M.D. eGFR (non-black) mL/min/{1.73_m2} Normal [facility] Comment on above: Result Comment: [...] ####Unless otherwise noted, all testing performed by [address] [phone]: [id number] Director: David Mcclain M.D. Glucose mass conc 122 mg/dL High 70-99 [facility] Comment on above: Result Comment: This test result might be falsely depressed or falsely elevated onsamples drawn from patients taking Sulfasalazine and Sulfapyridine.Venipuncture should occur prior to taking either of these drugs. Performed By: #### C BCWOD, CMET, LIPID, HBA1C ####Unless otherwise noted, all testing performed by [address] [phone]: [id number] Director: David Mcclain M.D. Potassium molar conc 3.9 mmol/L Normal 3.5-5.1 [facility] Comment on above: Performed By: #### C BCWOD, CMET, LIPID, HBA1C ####Unless otherwise noted, all testing performed by [address] [id number]: [id number] Director: David Mcclain M.D. Protein 6.2 g/dL Normal 6.0-8.0 [facility] Comment on above: Performed By: #### C BCWOD, CMET, LIPID, HBA1C ####Unless otherwise noted, all testing performed by [address] [phone]: [id number] Director: David Mcclain M.D. Sodium 143 mmol/L Normal 135-145 [facility] Comment on above: Performed By: #### C BCWOD, CMET, LIPID, HBA1C ####Unless otherwise noted, all testing performed by [address] [phone]: [id number] Director: David Mcclain M.D. Urea nitrogen 14 mg/dL Normal 8-25 [facility] Comment on above: Performed By: #### C BCWOD, CMET, LIPID, HBA1C ####Unless otherwise noted, all testing performed by [address] [phone]: [id number] Director: David Mcclain M.D. Hemoglobin A1Con 12-23-2017 Hemoglobin A1c/Hemoglobin.total mass fraction (Bld) 7.3 % High 4.1-6.5 [facility] Comment on above: Performed By: #### C BCWOD, CMET, LIPID, HBA1C ####Unless otherwise noted, all testing performed by [address] [phone]: [id number] Director: David Mcclain M.D. Lipid Panelon 12-23-2017 Cholesterol 113 mg/dL Normal 100-199 [facility] Comment on above: Performed By: #### C BCWOD, CMET, LIPID, HBA1C ####Unless otherwise noted, all testing performed by [address] [phone]: [id number] Director: David Mcclain M.D. Cholesterol in VLDL mass conc 29 mg/dL Normal 5-40 [facility] Comment on above: Performed By: #### C BCWOD, CMET, LIPID, HBA1C ####Unless otherwise noted, all testing performed by [address] [phone]: [id number] Director: David Mcclain M.D. Cholesterol to HDL Ratio 2.9 {ratio} Low 3.2-5.0 [facility] Comment on above: Result Comment: [place] Coronary Heart Disease Risk Factor (CHDRF):Average risk= 4.41/2 Average risk= 3.32 times Average risk= 7.1 Performed By: #### C BCWOD, CMET, LIPID, HBA1C ####Unless otherwise noted, all testing performed by [address] [phone]: [id number] Director: David Mcclain M.D. HDL Cholesterol 40 mg/dL Normal 40-59 [facility] Comment on above: Performed By: #### C BCWOD, CMET, LIPID, HBA1C ####Unless otherwise noted, all testing performed by [address] [phone]: [id number] Director: David Mcclain M.D. LDL Cholesterol 45 mg/dL Normal 10-150 [facility] Comment on above: Performed By: #### C BCWOD, CMET, LIPID, HBA1C ####Unless otherwise noted, all testing performed by [address] [phone]: [id number] Director: David Mcclain M.D. Triglyceride 143 mg/dL High 25-120 [facility] Comment on above: Performed By: #### C BCWOD, CMET, LIPID, HBA1C ####Unless otherwise noted, all testing performed by [address] [phone]: [id number] Director: David Mcclain M.D. TSHon 12-23-2017 Thyroid stimulating hormone (TSH) 5.67 uIU/mL High 0.320-5.000 [facility] Comment on above: Result Comment: Samp les from patients routinely receiving high dose biotin therapy(100-300 mg/day) may show falsely decreased results. Please correlateclinically. Performed By: #### C BCWOD, CMET, LIPID, HBA1C ####Unless otherwise noted, all testing performed by [address] [phone]: [id number] Director: David Mcclain M.D. Thyroxine (T4) free 1.0 ng/dL Normal 0.7-1.7 [facility] Comment on above: Result Comment: Samp les from patients routinely receiving high dose biotin therapy(100-300 mg/day) may show falsely increased results. Please correlateclinically. Performed By: #### C BCWOD, CMET, LIPID, HBA1C ####Unless otherwise noted, all testing performed by [address] [phone]: [id number] Director: David Mcclain M.D. Influenza A,B Rapid Molecula adolfo 07-26-2017 Influenza A Rapid Molecular Not Detected Normal Not Detected [facility] Comment on above: Performed By: #### C BCWOD, CMET, LIPID, HBA1C ####Unless otherwise noted, all testing performed by [address] [phone]: [id number] Director: David Mcclain M.D. Influenza B Rapid Molecular Not Detected Normal Not Detected [facility] Comment on above: Performed By: #### C BCWOD, CMET, LIPID, HBA1C ####Unless otherwise noted, all testing performed by [address]8509CLIA: [id number] Director: David Mcclain M.D. CBC with Diffon 04-17-2017 Basophils Auto #/vol (Bld) 0.0 K/mcL Normal 0-0.2 [facility] Comment on above: Performed By: #### C BCDIF, MG, TSH, CMET, LIPID, VITB12, HBA1C ####Unless otherwise noted, all testing performed by [address]8509CLIA: [id number] Director: David Mcclain M.D. Basophils/100 WBC Auto (Bld) 0.4 % Normal [facility] Comment on above: Performed By: #### C BCDIF, MG, TSH, CMET, LIPID, VITB12, HBA1C ####Unless otherwise noted, all testing performed by [address] [phone]: [id number] Director: David Mcclain M.D. Eosinophils 0.1 K/mcL Normal 0-0.5 [facility] Comment on above: Performed By: #### C BCDIF, MG, TSH, CMET, LIPID, VITB12, HBA1C ####Unless otherwise noted, all testing performed by [address] [phone]: [id number] Director: David Mcclain M.D. Eosinophils/100 leukocytes 1.9 % Normal [facility] Comment on above: Performed By: #### C BCDIF, MG, TSH, CMET, LIPID, VITB12, HBA1C ####Unless otherwise noted, all testing performed by [address] [phone]: [id number] Director: David Mcclain M.D. Erythrocyte distribution width Auto Ratio (RBC) 14.8 % High 10.0-14.4 [facility] Comment on above: Performed By: #### C BCDIF, MG, TSH, CMET, LIPID, VITB12, HBA1C ####Unless otherwise noted, all testing performed by [address] [phone]: [id number] Director: David Mcclain M.D. Erythrocytes (RBC) 4.82 M/mcL Normal 3.7-5.0 [facility] Comment on above: Performed By: #### C BCDIF, MG, TSH, CMET, LIPID, VITB12, HBA1C ####Unless otherwise noted, all testing performed by [address] [phone]: [id number] Director: David Mcclain M.D. Hematocrit (HCT) 42.9 % Normal 34.4-44.8 [facility] Comment on above: Performed By: #### C BCDIF, MG, TSH, CMET, LIPID, VITB12, HBA1C ####Unless otherwise noted, all testing performed by [address] [phone]: [id number] Director: David Mcclain M.D. Hemoglobin mass conc (Bld) 14.0 g/dL Normal 11.6-15.4 [facility] Comment on above: Performed By: #### C BCDIF, MG, TSH, CMET, LIPID, VITB12, HBA1C ####Unless otherwise noted, all testing performed by [address] [phone]: [id number] Director: David Mcclain M.D. Lymphocytes 1.4 K/mcL Normal 1.0-3.7 [facility] Comment on above: Performed By: #### C BCDIF, MG, TSH, CMET, LIPID, VITB12, HBA1C ####Unless otherwise noted, all testing performed by [address] [phone]: [id number] Director: David Mcclain M.D. Lymphocytes/100 leukocytes 23.0 % Normal [facility] Comment on above: Performed By: #### C BCDIF, MG, TSH, CMET, LIPID, VITB12, HBA1C ####Unless otherwise noted, all testing performed by [address] [phone]: [id number] Director: David Mcclain M.D. MCH 29.0 pg Normal 27.9-33.9 [facility] Comment on above: Performed By: #### C BCDIF, MG, TSH, CMET, LIPID, VITB12, HBA1C ####Unless otherwise noted, all testing performed by [address] [phone]: [id number] Director: David Mcclain M.D. [facility] mass conc (RBC) 32.6 g/dL Low 33.1-35.1 [facility] Comment on above: Performed By: #### C BCDIF, MG, TSH, CMET, LIPID, VITB12, HBA1C ####Unless otherwise noted, all testing performed by [address] [phone]: [id number] Director: David Mcclain M.D. MCV 88.9 fL Normal 82.6-98.9 [facility] Comment on above: Performed By: #### C BCDIF, MG, TSH, CMET, LIPID, VITB12, HBA1C ####Unless otherwise noted, all testing performed by [address] [phone]: [id number] Director: David Mcclain M.D. Monocytes 0.4 K/mcL Normal 0.1-0.6 [facility] Comment on above: Performed By: #### C BCDIF, MG, TSH, CMET, LIPID, VITB12, HBA1C ####Unless otherwise noted, all testing performed by [address] [phone]: [id number] Director: David Mcclain M.D. Monocytes/100 leukocytes 6.6 % Normal [facility] Comment on above: Performed By: #### C BCDIF, MG, TSH, CMET, LIPID, VITB12, HBA1C ####Unless otherwise noted, all testing performed by [address] [phone]: [id number] Director: David Mcclain M.D. Neutrophils 4.2 K/mcL Normal 1.2-6.9 [facility] Comment on above: Performed By: #### C BCDIF, MG, TSH, CMET, LIPID, VITB12, HBA1C ####Unless otherwise noted, all testing performed by [address] [phone]: [id number] Director: David Mcclain M.D. Platelet mean volume (PMV) 8.4 fL Normal 7.0-10.6 [facility] Comment on above: Performed By: #### C BCDIF, MG, TSH, CMET, LIPID, VITB12, HBA1C ####Unless otherwise noted, all testing performed by [address] [phone]: [id number] Director: David Mcclain M.D. Platelets 275 K/mcL Normal 162-402 [facility] Comment on above: Performed By: #### C BCDIF, MG, TSH, CMET, LIPID, VITB12, HBA1C ####Unless otherwise noted, all testing performed by [address] [phone]: [id number] Director: David Mcclain M.D. Segmented Neut % 68.1 % Normal [facility] Comment on above: Performed By: #### C BCDIF, MG, TSH, CMET, LIPID, VITB12, HBA1C ####Unless otherwise noted, all testing performed by [address] [phone]: [id number] Director: David Mcclain M.D. WBC (Leukocytes) 6.1 K/mcL Normal 3.4-10.6 [facility] Comment on above: Performed By: #### C BCDIF, MG, TSH, CMET, LIPID, VITB12, HBA1C ####Unless otherwise noted, all testing performed by [address] [phone]: [id number] Director: David Mcclain M.D. [facility] 04-17-2017 Alanine aminotransferase (ALT) 27 U/L Normal 14-65 [facility] Comment on above: Result Comment: This test result might be falsely depressed or falsely elevated onsamples drawn from patients taking Sulfasalazine and Sulfapyridine.Venipuncture should occur prior to taking either of these drugs. Performed By: #### C BCDIF, MG, TSH, CMET, LIPID, VITB12, HBA1C ####Unless otherwise noted, all testing performed by [address] [phone]: [id number] Director: David Mcclain M.D. Albumin 3.7 g/dL Normal 3.2-5.2 [facility] Comment on above: Performed By: #### C BCDIF, MG, TSH, CMET, LIPID, VITB12, HBA1C ####Unless otherwise noted, all testing performed by [address] [phone]: [id number] Director: David Mcclain M.D. Alkaline phosphatase (ALP) 56 U/L Normal 40-150 [facility] Comment on above: Performed By: #### C BCDIF, MG, TSH, CMET, LIPID, VITB12, HBA1C ####Unless otherwise noted, all testing performed by [address] [phone]: [id number] Director: David Mcclain M.D. Aspartate aminotransferase (AST) 10 U/L Normal 0-45 [facility] Comment on above: Result Comment: This test result might be falsely depressed or falsely elevated onsamples drawn from patients taking Sulfasalazine and Sulfapyridine.Venipuncture should occur prior to taking either of these drugs. Performed By: #### C BCDIF, MG, TSH, CMET, LIPID, VITB12, HBA1C ####Unless otherwise noted, all testing performed by [place] [phone]: [id number] Director: David Mcclain M.D. Bilirubin (total) 0.6 mg/dL Normal 0.3-1.2 [facility] Comment on above: Performed By: #### C BCDIF, MG, TSH, CMET, LIPID, VITB12, HBA1C ####Unless otherwise noted, all testing performed by [address] [phone]: [id number] Director: David Mcclain M.D. Calcium 9.7 mg/dL Normal 8.4-10.2 [facility] Comment on above: Performed By: #### C BCDIF, MG, TSH, CMET, LIPID, VITB12, HBA1C ####Unless otherwise noted, all testing performed by [address] [phone]: [id number] Director: David Mcclain M.D. Chloride 104 mmol/L Normal 98-108 [facility] Comment on above: Performed By: #### C BCDIF, MG, TSH, CMET, LIPID, VITB12, HBA1C ####Unless otherwise noted, all testing performed by [address] [phone]: [id number] Director: David Mcclain M.D. CO2 23 mmol/L Normal 21-32 [facility] Comment on above: Performed By: #### C BCDIF, MG, TSH, CMET, LIPID, VITB12, HBA1C ####Unless otherwise noted, all testing performed by [address] [phone]: [id number] Director: David Mcclain M.D. Creatinine 0.94 mg/dL Normal 0.40-1.10 [facility] Comment on above: Performed By: #### C BCDIF, MG, TSH, CMET, LIPID, VITB12, HBA1C ####Unless otherwise noted, all testing performed by [address] [phone]: [id number] Director: Dvaid Mcclain M.D. eGFR (black) mL/min/{1.73_m2} Normal [facility] Comment on above: Result Comment: Afri can [place] GFR Calc Performed By: #### C BCDIF, MG, TSH, CMET, LIPID, VITB12, HBA1C ####Unless otherwise noted, all testing performed by [address] [phone]: [id number] Director: David Mcclain M.D. eGFR (non-black) mL/min/{1.73_m2} Normal [facility] Comment on above: Result Comment: [...] ####Unless otherwise noted, all testing performed by [address] [phone]: [id number] Director: David Mcclain M.D. Glucose mass conc 128 mg/dL High 70-99 [facility] Comment on above: Result Comment: This test result might be falsely depressed or falsely elevated onsamples drawn from patients taking Sulfasalazine and Sulfapyridine.Venipuncture should occur prior to taking either of these drugs. Performed By: #### C BCDIF, MG, TSH, CMET, LIPID, VITB12, HBA1C ####Unless otherwise noted, all testing performed by [address] [phone]: [id number] Director: David Mcclain M.D. Potassium molar conc 3.5 mmol/L Normal 3.5-5.1 [facility] Comment on above: Performed By: #### C BCDIF, MG, TSH, CMET, LIPID, VITB12, HBA1C ####Unless otherwise noted, all testing performed by [address] [phone]: [id number] Director: David Mcclain M.D. Protein 7.8 g/dL Normal 6.0-8.0 [facility] Comment on above: Performed By: #### C BCDIF, MG, TSH, CMET, LIPID, VITB12, HBA1C ####Unless otherwise noted, all testing performed by [address] [phone]: [id number] Director: David Mcclain M.D. Sodium 141 mmol/L Normal 135-145 [facility] Comment on above: Performed By: #### C BCDIF, MG, TSH, CMET, LIPID, VITB12, HBA1C ####Unless otherwise noted, all testing performed by [address] [phone]: [id number] Director: David Mcclain M.D. Urea nitrogen 15 mg/dL Normal 8-25 [facility] Comment on above: Performed By: #### C BCDIF, MG, TSH, CMET, LIPID, VITB12, HBA1C ####Unless otherwise noted, all testing performed by [address] [phone]: [id number] Director: David Mcclain M.D. Hemoglobin A1Con 04-17-2017 Hemoglobin A1c/Hemoglobin.total mass fraction (Bld) 5.7 % Normal 4.1-6.5 [facility] Comment on above: Performed By: #### C BCWOD, CMET, LIPID, HBA1C ####Unless otherwise noted, all testing performed by [address] [phone]: [id number] Director: David Mcclain M.D. Lipid Panelon 04-17-2017 Cholesterol 135 mg/dL Normal 100-199 [facility] Comment on above: Performed By: #### C BCDIF, MG, TSH, CMET, LIPID, VITB12, HBA1C ####Unless otherwise noted, all testing performed by [address] [phone]: [id number] Director: David Mcclain M.D. Cholesterol in VLDL mass conc 27 mg/dL Normal 5-40 [facility] Comment on above: Performed By: #### C BCDIF, MG, TSH, CMET, LIPID, VITB12, HBA1C ####Unless otherwise noted, all testing performed by [address] [phone]: [id number] Director: David Mcclain M.D. Cholesterol to HDL Ratio 2.6 {ratio} Low 3.2-5.0 [facility] Comment on above: Result Comment: [place] Coronary Heart Disease Risk Factor (CHDRF):Average risk= 4.41/2 Average risk= 3.32 times Average risk= 7.1 Performed By: #### C BCDIF, MG, TSH, CMET, LIPID, VITB12, HBA1C ####Unless otherwise noted, all testing performed by [address] [phone]: [id number] Director: David Mcclain M.D. HDL Cholesterol 52 mg/dL Normal 40-59 [facility] Comment on above: Performed By: #### C BCDIF, MG, TSH, CMET, LIPID, VITB12, HBA1C ####Unless otherwise noted, all testing performed by [address] [phone]: [id number] Director: David Mcclain M.D. LDL Cholesterol 56 mg/dL Normal 10-150 [facility] Comment on above: Performed By: #### C BCDIF, MG, TSH, CMET, LIPID, VITB12, HBA1C ####Unless otherwise noted, all testing performed by [address] [phone]: [id number] Director: David Mcclain M.D. Triglyceride 134 mg/dL High 25-120 [facility] Comment on above: Performed By: #### C BCDIF, MG, TSH, CMET, LIPID, VITB12, HBA1C ####Unless otherwise noted, all testing performed by [place] [phone]: [id number] Director: David Mcclain M.D. Magnesiumon 04-17-2017 Magnesium 2.4 mg/dL Normal 1.6-2.4 [facility] Comment on above: Performed By: #### C BCDIF, MG, TSH, CMET, LIPID, VITB12, HBA1C ####Unless otherwise noted, all testing performed by [place] [phone]: [id number] Director: David Mcclain M.D. TSHon 04-17-2017 Thyroid stimulating hormone (TSH) 2.87 uIU/mL Normal 0.320-5.000 [facility] Comment on above: Result Comment: Samp les from patients routinely receiving high dose biotin therapy(100-300 mg/day) may show falsely decreased results. Please correlateclinically. Performed By: #### C BCDIF, MG, TSH, CMET, LIPID, VITB12, HBA1C ####Unless otherwise noted, all testing performed by [address] [phone]: [id number] Director: David Mcclain M.D. Vitamin B12on 04-17-2017 Cobalamins (Vitamin B12) 557 pg/mL Normal 193-986 [facility] Comment on above: Performed By: #### C BCDIF, MG, TSH, CMET, LIPID, VITB12, HBA1C ####Unless otherwise noted, all testing performed by [address] [phone]: [id number] Director: David Mcclain M.D. CBCon 04-09-2017 Erythrocyte distribution width Auto Ratio (RBC) 14.1 % Normal 10.0-14.4 [facility] Comment on above: Performed By: #### C BCWOD, CMET, LIPID, HBA1C ####Unless otherwise noted, all testing performed by [address] [phone]: [id number] Director: David Mcclain M.D. Erythrocytes (RBC) 4.31 M/mcL Invalid Interpretation Code 3.7 - 5.0 [facility] Hematocrit (HCT) 38.1 % Normal 34.4-44.8 [facility] Comment on above: Performed By: #### C BCWOD, CMET, LIPID, HBA1C ####Unless otherwise noted, all testing performed by [address] [phone]: [id number] Director: David Mcclain M.D. Hemoglobin mass conc (Bld) 12.6 g/dL Normal 11.6-15.4 [facility] Comment on above: Performed By: #### C BCWOD, CMET, LIPID, HBA1C ####Unless otherwise noted, all testing performed by [address] [phone]: [id number] Director: David Mcclain M.D. MCH 29.3 pg Normal 27.9-33.9 [facility] Comment on above: Performed By: #### C BCWOD, CMET, LIPID, HBA1C ####Unless otherwise noted, all testing performed by [address] [phone]: [id number] Director: David Mcclain M.D. MCHC mass conc (RBC) 33.1 g/dL Normal 33.1-35.1 [facility] Comment on above: Performed By: #### C BCWOD, CMET, LIPID, HBA1C ####Unless otherwise noted, all testing performed by [address] [phone]: [id number] Director: David Mcclain M.D. MCV 88.4 fL Normal 82.6-98.9 [facility] Comment on above: Performed By: #### C BCWOD, CMET, LIPID, HBA1C ####Unless otherwise noted, all testing performed by [address] [phone]: [id number] Director: David Mcclain M.D. Platelet mean volume (PMV) 8.4 fL Normal 7.0-10.6 [facility] Comment on above: Performed By: #### C BCWOD, CMET, LIPID, HBA1C ####Unless otherwise noted, all testing performed by [address] [phone]: [id number] Director: David Mcclain M.D. Platelets 256 K/mcL Invalid Interpretation Code 162 - 402 [facility] WBC (Leukocytes) 4.2 K/mcL Invalid Interpretation Code 3.4 - 10.6 [facility] CBC w/o Diffon 04-09-2017 Erythrocytes (RBC) 4.31 M/mcL Normal 3.7-5.0 [facility] Comment on above: Performed By: #### C BCWOD, CMET, LIPID, HBA1C ####Unless otherwise noted, all testing performed by [address] [phone]: [id number] Director: David Mcclain M.D. Platelets 256 K/mcL Normal 162-402 [facility] Comment on above: Performed By: #### C BCWOD, CMET, LIPID, HBA1C ####Unless otherwise noted, all testing performed by [address] [phone]: [id number] Director: David Mcclain M.D. WBC (Leukocytes) 4.2 K/mcL Normal 3.4-10.6 [facility] Comment on above: Performed By: #### C BCWOD, CMET, LIPID, HBA1C ####Unless otherwise noted, all testing performed by [address] [phone]: [id number] Director: David Mcclain M.D. Comprehensive Metabolic Pane [facility] 04-09-2017 Alanine aminotransferase (ALT) 28 U/L Normal 14-65 [facility] Comment on above: Cancelled on LAS [...] ####Unless otherwise noted, all testing performed by [address], [place] [phone]: [id number] Director: David Mcclain M.D. Albumin 3.0 g/dL Low 3.2-5.2 [facility] Comment on above: Cancelled on LAS :De lete Result Comment: Canc elled on LAS :Delete Performed By: #### C BCWOD, CMET, LIPID, HBA1C ####Unless otherwise noted, all testing performed by [address], [place] [phone]: [id number] Director: David Mcclain M.D. Alkaline phosphatase (ALP) 41 U/L Normal 40-150 [facility] Comment on above: Cancelled on LAS :De lete Result Comment: Canc elled on LAS :Delete Performed By: #### C BCWOD, CMET, LIPID, HBA1C ####Unless otherwise noted, all testing performed by [address], [place] [phone]: [id number] Director: David Mcclain M.D. Aspartate aminotransferase (AST) 16 U/L Normal 0-45 [facility] Comment on above: Cancelled on LAS [...] ####Unless otherwise noted, all testing performed by [address], [place] [phone]: [id number] Director: David Mcclain M.D. Bilirubin (total) 0.4 mg/dL Normal 0.3-1.[address] [facility] Comment on above: Cancelled on LAS :De lete Result Comment: Canc elled on LAS :Delete Performed By: #### C BCWOD, CMET, LIPID, HBA1C ####Unless otherwise noted, all testing performed by [address] [phone]: [id number] Director: David Mcclain M.D. Calcium 8.7 mg/dL Normal 8.4-10.2 [facility] Comment on above: Cancelled on LAS :De lete Result Comment: Canc elled on LAS :Delete Performed By: #### C BCWOD, CMET, LIPID, HBA1C ####Unless otherwise noted, all testing performed by [address] [phone]: [id number] Director: David Mcclain M.D. Chloride 106 mmol/L Normal 98-108 [facility] Comment on above: Cancelled on LAS :De lete Result Comment: Canc elled on LAS :Delete Performed By: #### C BCWOD, CMET, LIPID, HBA1C ####Unless otherwise noted, all testing performed by [address] [phone]: [id number] Director: David Mcclain M.D. CO2 26 mmol/L Normal 21-32 [facility] Comment on above: Cancelled on LAS :De lete Result Comment: Canc elled on LAS :Delete Performed By: #### C BCWOD, CMET, LIPID, HBA1C ####Unless otherwise noted, all testing performed by [address], [place] [phone]: [id number] Director: David Mcclain M.D. Creatinine 0.73 mg/dL Normal 0.40-1.10 [facility] Comment on above: Cancelled on LAS :De lete Result Comment: Canc elled on LAS :Delete Performed By: #### C BCWOD, CMET, LIPID, HBA1C ####Unless otherwise noted, all testing performed by [address] [phone]: [id number] Director: David Mcclain M.D. eGFR (black) mL/min/{1.73_m2} Normal [facility] Comment on above: GFR Calc Result Comment: Afri can [place] GFR Calc Performed By: #### C BCWOD, CMET, LIPID, HBA1C ####Unless otherwise noted, all testing performed by [address] [phone]: [id number] Director: David Mcclain M.D. eGFR (non-black) mL/min/{1.73_m2} Normal [facility] Comment on above: Non- GFR Calc eGFR [...] ####Unless otherwise noted, all testing performed by [address] [phone]: [id number] Director: David Mcclain M.D. Glucose mass conc 93 mg/dL Normal 70-[address] [facility] Comment on above: Cancelled on LAS [...] ####Unless otherwise noted, all testing performed by [address], [place] [phone]: [id number] Director: David Mcclain M.D. Potassium molar conc 3.9 mmol/L Normal 3.5-5.1 [facility] Comment on above: Cancelled on LAS :De lete Result Comment: Canc elled on LAS :Delete Performed By: #### C BCWOD, CMET, LIPID, HBA1C ####Unless otherwise noted, all testing performed by [address], [place] [phone]: [id number] Director: David Mcclain M.D. Protein 6.4 g/dL Normal 6.0-8.0 [facility] Comment on above: Cancelled on LAS :De lete Result Comment: Canc elled on LAS :Delete Performed By: #### C BCWOD, CMET, LIPID, HBA1C ####Unless otherwise noted, all testing performed by [address] [phone]: [id number] Director: David Mcclain M.D. Sodium 140 mmol/L Normal 135-145 [facility] Comment on above: Cancelled on LAS :De lete Result Comment: Canc elled on LAS :Delete Performed By: #### C BCWOD, CMET, LIPID, HBA1C ####Unless otherwise noted, all testing performed by [address] [phone]: [id number] Director: David Mcclain M.D. Urea nitrogen 9 mg/dL Normal 8-25 [facility] Comment on above: Cancelled on LAS :De lete Result Comment: Canc elled on LAS :Delete Performed By: #### C BCWOD, CMET, LIPID, HBA1C ####Unless otherwise noted, all testing performed by [address] [phone]: [id number] Director: David Mcclain M.D. Hemoglobin A1con 04-09-2017 Hemoglobin A1c/Hemoglobin.total mass fraction (Bld) 5.6 % Normal 4.1-6.5 [facility] Comment on above: Performed By: #### C BCWOD, CMET, LIPID, HBA1C ####Unless otherwise noted, all testing performed by [address] [phone]: [id number] Director: David Mcclain M.D. Lipid Panelon 04-09-2017 Cholesterol 104 mg/dL Normal 100-199 [facility] Comment on above: Cancelled on LAS :De lete Result Comment: Canc elled on LAS :Delete Performed By: #### C BCWOD, CMET, LIPID, HBA1C ####Unless otherwise noted, all testing performed by [address] [phone]: [id number] Director: David Mcclain M.D. Cholesterol in VLDL mass conc 32 mg/dL Normal 5-40 [facility] Comment on above: Performed By: #### C BCWOD, CMET, LIPID, HBA1C ####Unless otherwise noted, all testing performed by [address] [phone]: [id number] Director: David Mcclain M.D. Cholesterol to HDL Ratio 2.5 {ratio} Low 3.2-5.0 [facility] Comment on above: Female Coronary Hear t Disease Risk Factor (CHDRF): Average risk= 4.4 1/2 Average risk= 3.3 2 times Average risk= 7.1 Result Comment: Fema le Coronary Heart Disease Risk Factor (CHDRF):Average risk= 4.41/2 Average risk= 3.32 times Average risk= 7.1 Performed By: #### C BCWOD, CMET, LIPID, HBA1C ####Unless otherwise noted, all testing performed by [address] [phone]: [id number] Director: David Mcclain M.D. HDL Cholesterol 41 mg/dL Normal 40-59 [facility] Comment on above: Cancelled on LAS :De lete Result Comment: Canc elled on LAS :Delete Performed By: #### C BCWOD, CMET, LIPID, HBA1C ####Unless otherwise noted, all testing performed by [address] [phone]: [id number] Director: David Mcclain M.D. Interpretation and review of laboratory results Abnormal Invalid Interpretation Code [facility] LDL Cholesterol 31 mg/dL Normal 10-150 [facility] Comment on above: Performed By: #### C BCWOD, CMET, LIPID, HBA1C ####Unless otherwise noted, all testing performed by [address] [phone]: [id number] Director: David Mcclain M.D. Triglyceride 159 mg/dL High 25-120 [facility] Comment on above: Cancelled on LAS :De lete Result Comment: Canc elled on LAS :Delete Performed By: #### C BCWOD, CMET, LIPID, HBA1C ####Unless otherwise noted, all testing performed by [address] [phone]: [id number] Director: David Mcclain M.D. Emergency Department Summary on 01-16-2017 [facility] [address] [place], [place] [address]Xgolyivld Department Heseuds43/07/17 1708#: [id number] Acct: [id number]: SHAJI ESQUIVEL Rep #: [id number]: 1960 56 [...] condition.Impression: 1. Dysphagia.This note was generated with [employer] dictation software. It may contain incorrect words,spelling, [...] your Primary Care Provider. Call [facility] ([phone])or report to the closest Emergency Room.Call 911 if necessary.01/16/17 0831 Date Alli Monae [facility] Signature (If Indicated): Date CC: nAtwan Watters Normal [facility] Esophagus Onlyon 01-14-2017 Esophagus Only [facility] [id number] AJAY SAXENA [id number] OnlyMR#: [id number] Acct: [id number]: SHAJI ESQUIVEL Rep #: [id number]: 1960 F 56 From: Santo Mendieta MDPCP: Antwan Watters Status: REG CLIStudy: Esophagus Only Date of Exam: 01/14/17Exam# [id number] Ordering Dr: Alli Monae MDSTUDY: X-RAY - [...] structures of the thorax. ORDE R #: [id number] RAD/Esophagus OnlyIMPRESSION:Normal plain film x-ray examination (barium swallow) of the esophagus.Electronicall y Signed:Santo Mendieta MD at 15:33 EDTTel [phone], Service support , GD: Antwan Watters; Alli Monae MD Adjuster Electrical Contacts:Signed Normal [facility] Basic Metabolic Profile (BMP )on 01-13-2017 BUN (urea nitrogen) 12.9 RATIO Normal 10-20 [facility] Comment on above: Performed By: #### L 500.2500 ####[facility] [address] [place], [address] Calcium 9.0 mg/dL Normal 8.5-10.1 [facility] Comment on above: Performed By: #### L 500.2500 ####[facility] [address] [place], [address] Chloride 101 mmol/L Normal 98-107 [facility] Comment on above: Performed By: #### L 500.2500 ####[facility] [address] [place], [address] CO2 31.0 mmol/L Normal 21.0-32.0 [facility] Comment on above: Performed By: #### L 500.2500 ####[facility] [address] [place], [address] Creatinine 0.70 mg/dL Normal 0.55-1.02 [facility] Comment on above: Result Comment: The validity of the calculated GFR AND GFRAA in patients over70 years has not been determined. Clinical correlation isessential. Performed By: #### L 500.2500 ####[facility] [address] [place], [address] eGFR (non-black) 111 mL/min/{1.73_m2} Normal >60 [facility] Comment on above: Result Comment: Afri can [place] GFR Calc Performed By: #### L 500.2500 ####[facility] [address] [place], [address] eGFR (non-black) 92 mL/min/{1.73_m2} Normal >60 [facility] Comment on above: Result Comment: Non- GFR Calc Performed By: #### L 500.2500 ####[facility] [address] [place], [address] Estimated CRCL 74.23 ml/min Normal [facility] Comment on above: Performed By: #### L 500.2500 ####[facility] [address] [place], [address] GAP 9 Normal 5-15 [facility] Comment on above: Performed By: #### L 500.2500 ####[facility] [address] [place], [address] Glucose mass conc 137 mg/dL High 70-110 [facility] Comment on above: Result Comment: Fast ing Glucose result greater than or equal to 126 mg/dLsuggests DIABETES MELLITUS per A.D.A. criteria. Performed By: #### L 500.2500 ####[facility] [address] [place], [address] Potassium molar conc 3.8 mmol/L Normal 3.5-5.1 [facility] Comment on above: Performed By: #### L 500.2500 ####[facility] [address] [place], [address] Sodium 141 mmol/L Normal 136-145 [facility] Comment on above: Performed By: #### L 500.2500 ####[facility] [address] [place], [address] Urea nitrogen 9 mg/dL Normal 7-18 [facility] Comment on above: Performed By: #### L 500.2500 ####[facility] [address] [place], [address] CBC W/Diff, Automatedon 08-0 -2016 Absolute Neut 3.8 X10 3/uL Normal 2.0-7.7 [facility] Comment on above: Performed By: #### L 100.0100 ####[facility] [address] [place], [address] Basophils/100 WBC Auto (Bld) 0.0 % Normal 0-1 [facility] Comment on above: Performed By: #### L 100.0100 ####[facility] [address] [place], [address] Eosinophils/100 leukocytes 0.7 % Normal 0-5 [facility] Comment on above: Performed By: #### L 100.0100 ####[facility] [address] [place], [address] Erythrocyte distribution width Auto Ratio (RBC) 13.5 % Normal 11.6-14.6 [facility] Comment on above: Performed By: #### L 100.0100 ####[facility] [address] [place], [address] Erythrocytes (RBC) 4.41 M/mm3 Normal 4.2-5.4 [facility] Comment on above: Performed By: #### L 100.0100 ####[facility] [address] [place], [address] Hematocrit (HCT) 40.1 % Normal 37-47 [facility] Comment on above: Performed By: #### L 100.0100 ####[facility] [address] [place], [address] Hemoglobin mass conc (Bld) 12.4 g/dL Normal 12.0-15.0 [facility] Comment on above: Performed By: #### L 100.0100 ####[facility] [address] [place], [address] IM GRAN % 0.200 % Normal 0.0-0.9 [facility] Comment on above: Result Comment: IG% - Immature Granulocytes (promyelocytes, myelocytes andmetamyelocytes) > 1% indicates that a LEFT SHIFT is Present. Performed By: #### L 100.0100 ####[facility] [address] [place], [address] Lymphocytes 1.55 X10 3/ul Normal 0.83-4.51 [facility] Comment on above: Performed By: #### L 100.0100 ####[facility] [address] [place], [address] Lymphocytes/100 leukocytes 26.3 % Normal 19-41 [facility] Comment on above: Performed By: #### L 100.0100 ####[facility] [address] [place], [address] MCH 28.1 pg Normal 27.0-32.0 [facility] Comment on above: Performed By: #### L 100.0100 ####[facility] [address] [place], [address] MCHC mass conc (RBC) 30.9 g/gl Low 32-36 [facility] Comment on above: Performed By: #### L 100.0100 ####[facility] [address] [place], [address] MCV 90.9 fL Normal 81-99 [facility] Comment on above: Performed By: #### L 100.0100 ####[facility] [address] [place], [address] Monocytes/100 leukocytes 7.6 % Normal 0-10 [facility] Comment on above: Performed By: #### L 100.0100 ####[facility] [address] [place], [address] Neutrophils/100 WBC Auto (Bld) 65.2 % Normal 47-70 [facility] Comment on above: Performed By: #### L 100.0100 ####[facility] [address] [place], [address] Platelet mean volume (PMV) 9.7 fL Normal 6.2-12.0 [facility] Comment on above: Performed By: #### L 100.0100 ####[facility] [address] [place], [address] Platelets 274 10*3/uL Normal 150-450 [facility] Comment on above: Performed By: #### L 100.0100 ####[facility] [address] [place], [address] RDW SD 44.5 fl High 35.1-43.9 [facility] Comment on above: Performed By: #### L 100.0100 ####[facility] [address] [place], [address] WBC (Leukocytes) 5.9 10*3/uL Normal 4.4-11.0 [facility] Comment on above: Performed By: #### L 100.0100 ####[facility] [address] [place], [address] Vital Signs Date Time Vital Sign Value Performing Clinician [facility] 11-11-2024 11:01-0400 Body height 160 cm Marcos Barrera MD Work Phone: [facility] 11-11-2024 11:01-0400 Diastolic blood pressure 83 mm[Hg] Marcos Barrera MD Work Phone: [facility] 11-11-2024 11:01-0400 Heart rate 99 /min Marcos Barrera MD Work Phone: [facility] 11-11-2024 11:01-0400 Systolic blood pressure 136 mm[Hg] Marcos Barrera MD Work Phone: [facility] 10-25-2024 11:07-0400 Diastolic blood pressure 82 mm[Hg] Elizabeth [place] DPM Work Phone: [facility] 10-25-2024 11:07-0400 Heart rate 73 /min Elizabeth Erendira DPM Work Phone: [facility] 10-25-2024 11:07-0400 Systolic blood pressure 134 mm[Hg] Elizabeth Erendira DPM Work Phone: [facility] 10-25-2024 11:01-0400 Body temperature 98.29 [degF] Elizabeth Kimble DPM Work Phone: [facility] 09-21-2024 10:37-0400 Body height 160 cm Zara Cristina DO Work Phone: [facility] 09-21-2024 10:37-0400 Body mass index (BMI) [Ratio] 29.35 kg/m2 Zara Cristina DO Work Phone: [facility] 09-21-2024 10:37-0400 Body temperature 98.01 [degF] Zara Cristina DO Work Phone: [facility] 09-21-2024 10:37-0400 Body weight 75.16 kg Zara Cristina DO Work Phone: [facility] 09-21-2024 10:37-0400 Diastolic blood pressure 85 mm[Hg] Zara Cristina DO Work Phone: [facility] 09-21-2024 10:37-0400 Heart rate 79 /min Zara Cristina DO Work Phone: [facility] 09-21-2024 10:37-0400 Respiratory rate 18 /min Zara Cristina DO Work Phone: [facility] 09-21-2024 10:37-0400 SaO2% (BldA) [Mass fraction] 92 % Zara Cristina DO Work Phone: [facility] 09-21-2024 10:37-0400 Systolic blood pressure 132 mm[Hg] Zara Cristina DO Work Phone: [facility] 09-09-2024 14:10-0400 Body height 160 cm Marcos Barrera MD Work Phone: [facility] 09-09-2024 14:10-0400 Body mass index (BMI) [Ratio] 28.87 kg/m2 Marcos Barrera MD Work Phone: [facility] 09-09-2024 14:10-0400 Body weight 73.94 kg Marcos Barrera MD Work Phone: [facility] 09-09-2024 14:10-0400 Diastolic blood pressure 71 mm[Hg] Marcos Barrera MD Work Phone: [facility] 09-09-2024 14:10-0400 Heart rate 60 /min Marcos Barrera MD Work Phone: [facility] 09-09-2024 14:10-0400 Systolic blood pressure 105 mm[Hg] Marcos Barrera MD Work Phone: [facility] 07-29-2024 11:30-0500 Body height 160 cm Zara Cristina DO Work Phone: [facility] 07-29-2024 11:30-0500 Body mass index (BMI) [Ratio] 28.34 kg/m2 Zara Cristina DO Work Phone: [facility] 07-29-2024 11:30-0500 Body temperature 98.29 [degF] Zara Cristina DO Work Phone: [facility] 07-29-2024 11:30-0500 Body weight 72.58 kg Zara Cristina DO Work Phone: [facility] 07-29-2024 11:30-0500 Diastolic blood pressure 76 mm[Hg] Zara Cristina DO Work Phone: [facility] 07-29-2024 11:30-0500 Heart rate 83 /min Zara Cristina DO Work Phone: [facility] 07-29-2024 11:30-0500 Respiratory rate 17 /min Zara Cristina DO Work Phone: [facility] 07-29-2024 11:30-0500 SaO2% (BldA) [Mass fraction] 94 % Zara Cristina DO Work Phone: [facility] 07-29-2024 11:30-0500 Systolic blood pressure 135 mm[Hg] Zara Cristina DO Work Phone: [facility] 07-27-2024 09:57-0500 Body temperature 98.4 [degF] Elizabethamy Kimble DPM Work Phone: [facility] 07-27-2024 09:57-0500 Diastolic blood pressure 78 mm[Hg] Elizabeth [place] DPM Work Phone: [facility] 07-27-2024 09:57-0500 Heart rate 86 /min Elizabeth Erendira DPM Work Phone: [facility] 07-27-2024 09:57-0500 Systolic blood pressure 133 mm[Hg] Elizabeth Erendira DPM Work Phone: [facility] 07-13-2024 09:53-0500 Diastolic blood pressure 83 mm[Hg] Zara Cristina DO Work Phone: [facility] 07-13-2024 09:53-0500 Systolic blood pressure 136 mm[Hg] Zara Cristina DO Work Phone: [facility] 07-13-2024 09:17-0500 Body height 160 cm Zara Cristina DO Work Phone: [facility] 07-13-2024 09:17-0500 Body mass index (BMI) [Ratio] 28.34 kg/m2 Zara Cristina DO Work Phone: [facility] 07-13-2024 09:17-0500 Body temperature 98.1 [degF] Zara Cristina DO Work Phone: [facility] 07-13-2024 09:17-0500 Body weight 72.58 kg Zara Cristina DO Work Phone: [facility] 07-13-2024 09:17-0500 Heart rate 81 /min Zara Cristina DO Work Phone: [facility] 07-13-2024 09:17-0500 Respiratory rate 17 /min Zara Cristina DO Work Phone: [facility] 07-13-2024 09:17-0500 SaO2% (BldA) [Mass fraction] 90 % Zara Cristina DO Work Phone: [facility] 07-09-2024 12:08-0500 Diastolic blood pressure 86 mm[Hg] Miles Ying DO Work Phone: [facility] [place] 07-09-2024 12:08-0500 Heart rate 84 /min Miles Mcnairune DO Work Phone: [facility] [place] 07-09-2024 12:08-0500 Respiratory rate 17 /min Miles Mcnairune DO Work Phone: [facility] [place] 07-09-2024 12:08-0500 SaO2% (BldA) [Mass fraction] 97 % Miles Mcnairune DO Work Phone: [facility] [place] 07-09-2024 12:08-0500 Systolic blood pressure 156 mm[Hg] Miles Ying DO Work Phone: [facility] [place] 07-09-2024 11:00-0500 Body temperature 98.49 [degF] Miles Mcnairune DO Work Phone: [facility] [place] 06-28-2024 12:46-0500 Body height 167.6 cm Rafa Oberhauser DO Work Phone: [facility] [place] 06-28-2024 12:46-0500 Body mass index (BMI) [Ratio] 25.82 kg/m2 Rafa Oberhauser DO Work Phone: [facility] [place] 06-28-2024 12:46-0500 Body weight 72.58 kg Rafa Oberhauser DO Work Phone: [facility] [place] 06-28-2024 12:46-0500 Diastolic blood pressure 71 mm[Hg] Rafa Oberhauser DO Work Phone: [facility] [place] 06-28-2024 12:46-0500 Heart rate 93 /min Rafa Oberhauser DO Work Phone: [facility] [place] 06-28-2024 12:46-0500 Systolic blood pressure 129 mm[Hg] Rafa Oberhauser DO Work Phone: [facility] [place] 06-23-2024 14:00-0500 Diastolic blood pressure 83 mm[Hg] Zara Cristina DO Work Phone: [facility] 06-23-2024 14:00-0500 Systolic blood pressure 134 mm[Hg] Zara Cristina DO Work Phone: [facility] 06-23-2024 13:02-0500 Body height 160 cm Zara Cristina DO Work Phone: [facility] 06-23-2024 13:02-0500 Body mass index (BMI) [Ratio] 28.34 kg/m2 Zara Cristina DO Work Phone: [facility] 06-23-2024 13:02-0500 Body temperature 98.6 [degF] Zara Cristina DO Work Phone: [facility] 06-23-2024 13:02-0500 Body weight 72.58 kg Zara Cristina DO Work Phone: [facility] 06-23-2024 13:02-0500 Heart rate 92 /min Zara Cristina DO Work Phone: [facility] 06-23-2024 13:02-0500 Respiratory rate 16 /min Zara Cristina DO Work Phone: [facility] 06-23-2024 13:02-0500 SaO2% (BldA) [Mass fraction] 91 % Zara Cristina DO Work Phone: [facility] 04-27-2024 10:09-0500 Body temperature 98.2 [degF] Elizabeth Erednira DPM Work Phone: [facility] 04-27-2024 10:09-0500 Diastolic blood pressure 85 mm[Hg] Elizabeth [place] DPM Work Phone: [facility] 04-27-2024 10:09-0500 Heart rate 86 /min Elizabeth Erendira DPM Work Phone: [facility] 04-27-2024 10:09-0500 Systolic blood pressure 130 mm[Hg] Elizabeth [place] DPM Work Phone: [facility] 03-29-2024 12:42-0400 Body height 167.6 cm Rafa Oberhauser DO Work Phone: [facility] [place] 03-29-2024 12:42-0400 Diastolic blood pressure 80 mm[Hg] Rafa Oberhauser DO Work Phone: [facility] [place] 03-29-2024 12:42-0400 Heart rate 89 /min Rafa Oberhauser DO Work Phone: [facility] [place] 03-29-2024 12:42-0400 Systolic blood pressure 128 mm[Hg] Rafa Oberhauser DO Work Phone: [facility] [place] 02-05-2024 10:28-0400 Body height 167.6 cm Tracy Babak [employer] Work Phone: [facility] [place] 02-05-2024 10:28-0400 Body mass index (BMI) [Ratio] 25.82 kg/m2 Tracy Babak [employer] COMMODITY MANAGER-SOCIAL MEDIA INTERN Work Phone: [phone] [place] [address] 02-05-2024 10:28-0400 Body weight 72.58 kg Tracy Babak [employer] COMMODITY MANAGER-SOCIAL MEDIA INTERN Work Phone: [phone] [place] [address] 02-05-2024 10:28-0400 Diastolic blood pressure 85 mm[Hg] Tracy Babak ELECTRONICS COMMODITY MANAGER-SOCIAL MEDIA INTERN Work Phone: [facility] 02-05-2024 10:28-0400 Heart rate 83 /min Tracy Babak ELECTRONICS COMMODITY MANAGER-SOCIAL MEDIA INTERN Work Phone: [facility] 02-05-2024 10:28-0400 Systolic blood pressure 137 mm[Hg] Tracy Babak ELECTRONICS COMMODITY MANAGER-SOCIAL MEDIA INTERN Work Phone: [facility] 02-03-2024 10:46-0400 Body height 165.1 cm Sachin Morales MD Work Phone: [facility] 02-03-2024 10:46-0400 Body mass index (BMI) [Ratio] 25.63 kg/m2 Sachin Morales MD Work Phone: [facility] 02-03-2024 10:46-0400 Body weight 69.85 kg Sachin Morales MD Work Phone: [facility] 01-29-2024 09:55-0400 Diastolic blood pressure 67 mm[Hg] Darin Trujillo MD Work Phone: [facility] 01-29-2024 09:55-0400 Heart rate 83 /min Darin Trujillo MD Work Phone: [facility] 01-29-2024 09:55-0400 Respiratory rate 18 /min Darin Trujillo MD Work Phone: [facility] 01-29-2024 09:55-0400 SaO2% (BldA) [Mass fraction] 96 % Darin Trujillo MD Work Phone: [facility] 01-29-2024 09:55-0400 Systolic blood pressure 123 mm[Hg] Darin Trujillo MD Work Phone: [facility] 01-29-2024 06:56-0400 Body height 167.6 cm Darin Trujillo MD Work Phone: [facility] 01-29-2024 06:56-0400 Body mass index (BMI) [Ratio] 24.61 kg/m2 Darin Trujillo MD Work Phone: [facility] 01-29-2024 06:56-0400 Body temperature 97 [degF] Darin Trujillo MD Work Phone: [facility] 01-29-2024 06:56-0400 Body weight 69.17 kg Darin Trujillo MD Work Phone: [facility] 01-26-2024 14:02-0400 Diastolic blood pressure 83 mm[Hg] Elizabeth Erendira DPM Work Phone: [facility] 01-26-2024 14:02-0400 Heart rate 92 /min Elizabeth [place] DPM Work Phone: [facility] 01-26-2024 14:02-0400 Systolic blood pressure 144 mm[Hg] Elizabeth Erendira DPM Work Phone: [facility] 01-26-2024 13:49-0400 Body temperature 98.4 [degF] Elizabeth Erendira DPM Work Phone: [facility] 01-21-2024 10:36-0400 Diastolic blood pressure 77 mm[Hg] Huy Vasquez PA-C Work Phone: [facility] 01-21-2024 10:36-0400 Heart rate 95 /min Huy Vasquez PA-C Work Phone: [facility] 01-21-2024 10:36-0400 SaO2% (BldA) [Mass fraction] 96 % Huy Vasquez PA-C Work Phone: [facility] 01-21-2024 10:36-0400 Systolic blood pressure 159 mm[Hg] Huy Vasquez PA-C Work Phone: [facility] 01-08-2024 09:26-0400 Diastolic blood pressure 85 mm[Hg] Mina Ortiz MD Work Phone: [facility] 01-08-2024 09:26-0400 Heart rate 100 /min Mina Ortiz MD Work Phone: [facility] 01-08-2024 09:26-0400 Respiratory rate 16 /min Mina Ortiz MD Work Phone: [facility] 01-08-2024 09:26-0400 SaO2% (BldA) [Mass fraction] 92 % Mina Ortiz MD Work Phone: [facility] 01-08-2024 09:26-0400 Systolic blood pressure 147 mm[Hg] Mina Ortiz MD Work Phone: [facility] 12-29-2023 16:43-0400 Body height 157.5 cm Rafa Jacinto DO Work Phone: [facility] 12-29-2023 16:43-0400 Body mass index (BMI) [Ratio] 28.53 kg/m2 Rafa Vicker DO Work Phone: [facility] 12-29-2023 16:43-0400 Body weight 70.76 kg Rafa Oberhauser DO Work Phone: [facility] 12-29-2023 16:43-0400 Diastolic blood pressure 82 mm[Hg] Rafa Oberhauser DO Work Phone: [facility] 12-29-2023 16:43-0400 Heart rate 101 /min Rafa Oberhauser DO Work Phone: [facility] 12-29-2023 16:43-0400 Systolic blood pressure 139 mm[Hg] Rafa Oberhauser DO Work Phone: [facility] 12-24-2023 09:35-0400 Body height 165.1 cm Sachin Morales MD Work Phone: [facility] 12-17-2023 08:04-0400 Body height 157.5 cm Tracy Babak ELECTRONICS COMMODITY MANAGER-SOCIAL MEDIA INTERN Work Phone: [facility] 12-17-2023 08:04-0400 Body mass index (BMI) [Ratio] 28.17 kg/m2 Tracy Babak ELECTRONICS COMMODITY MANAGER-SOCIAL MEDIA INTERN Work Phone: [facility] 12-17-2023 08:04-0400 Body weight 69.85 kg Tracy Babak ELECTRONICS COMMODITY MANAGER-SOCIAL MEDIA INTERN Work Phone: [facility] 12-17-2023 08:04-0400 Diastolic blood pressure 78 mm[Hg] Tracy Babak ELECTRONICS COMMODITY MANAGER-SOCIAL MEDIA INTERN Work Phone: [facility] 12-17-2023 08:04-0400 Heart rate 72 /min Tracy Babak ELECTRONICS COMMODITY MANAGER-SOCIAL MEDIA INTERN Work Phone: [facility] 12-17-2023 08:04-0400 Systolic blood pressure 144 mm[Hg] Tracy Babak ELECTRONICS COMMODITY MANAGER-SOCIAL MEDIA INTERN Work Phone: [facility] 12-16-2023 13:56-0400 Body height 165.1 cm Priscilla Mackey SOCIAL MEDIA INTERN Work Phone: [facility] 12-16-2023 13:56-0400 Body mass index (BMI) [Ratio] 25.63 kg/m2 Priscilla Mackey SOCIAL MEDIA INTERN Work Phone: [facility] 12-16-2023 13:56-0400 Body weight 69.85 kg Priscilla Mackey SOCIAL MEDIA INTERN Work Phone: [facility] 12-16-2023 13:56-0400 Diastolic blood pressure 81 mm[Hg] Priscilla Mackey SOCIAL MEDIA INTERN Work Phone: [facility] 12-16-2023 13:56-0400 Heart rate 90 /min Priscilla Mackey SOCIAL MEDIA INTERN Work Phone: [facility] 12-16-2023 13:56-0400 SaO2% (BldA) [Mass fraction] 96 % Priscilla Mackey SOCIAL MEDIA INTERN Work Phone: [facility] 12-16-2023 13:56-0400 Systolic blood pressure 135 mm[Hg] Priscilla Mackey SOCIAL MEDIA INTERN Work Phone: [facility] 12-04-2023 11:46-0400 Diastolic blood pressure 63 mm[Hg] Jasmyn Luisersen DO Work Phone: [facility] 12-04-2023 11:46-0400 Heart rate 97 /min Jasmyn Wade DO Work Phone: [facility] 12-04-2023 11:46-0400 Respiratory rate 16 /min Jasmyn Wade DO Work Phone: [facility] 12-04-2023 11:46-0400 SaO2% (BldA) [Mass fraction] 96 % Jasmyn Wade DO Work Phone: [facility] 12-04-2023 11:46-0400 Systolic blood pressure 177 mm[Hg] Jasmyn Luisersen DO Work Phone: [facility] 12-04-2023 11:15-0400 Body temperature 96.8 [degF] Jasmyn Wade DO Work Phone: [facility] 12-04-2023 09:04-0400 Body height 157.5 cm Jasmyn Wade DO Work Phone: [facility] 12-04-2023 09:04-0400 Body mass index (BMI) [Ratio] 25.97 kg/m2 Jasmyn Wade DO Work Phone: [facility] 12-04-2023 09:04-0400 Body weight 64.41 kg Jasmyn Wade DO Work Phone: [facility] 10-14-2023 08:15-0400 Body temperature 97 [degF] Elizabeth Erendira DPM Work Phone: [facility] 10-14-2023 08:15-0400 Diastolic blood pressure 83 mm[Hg] Elizabeth [place] DPM Work Phone: [facility] 10-14-2023 08:15-0400 Heart rate 96 /min Elizabeth [place] DPM Work Phone: [facility] 10-14-2023 08:15-0400 Systolic blood pressure 159 mm[Hg] Elizabeth [place] DPM Work Phone: [facility] 07-15-2023 08:42-0500 Body temperature 97.9 [degF] Elizabeth [place] DPM Work Phone: [facility] 07-15-2023 08:42-0500 Diastolic blood pressure 80 mm[Hg] Elizabeth [place] DPM Work Phone: [facility] 07-15-2023 08:42-0500 Heart rate 89 /min Elizabeth Erendira DPM Work Phone: [facility] 07-15-2023 08:42-0500 Systolic blood pressure 136 mm[Hg] Elizabeth Erendira DPM Work Phone: [facility] 06-23-2023 10:52-0500 Diastolic blood pressure 88 mm[Hg] Mina Ortiz MD Work Phone: [facility] 06-23-2023 10:52-0500 Heart rate 83 /min Mina Ortiz MD Work Phone: [facility] 06-23-2023 10:52-0500 SaO2% (BldA) [Mass fraction] 97 % Mina Ortiz MD Work Phone: [facility] 06-23-2023 10:52-0500 Systolic blood pressure 122 mm[Hg] Mina Ortiz MD Work Phone: [facility] 04-21-2023 13:09-0500 Body height 157.5 cm Rafa Oberhauser DO Work Phone: [facility] 04-21-2023 13:09-0500 Body mass index (BMI) [Ratio] 24.14 kg/m2 Rafa Oberhauser DO Work Phone: [facility] 04-21-2023 13:09-0500 Body weight 59.88 kg Rafa Oberhauser DO Work Phone: [facility] 04-21-2023 13:09-0500 Diastolic blood pressure 78 mm[Hg] Rafa Oberhauser DO Work Phone: [facility] 04-21-2023 13:09-0500 Heart rate 95 /min Rafa Oberhauser DO Work Phone: [facility] 04-21-2023 13:09-0500 Systolic blood pressure 127 mm[Hg] Rafa Oberhauser DO Work Phone: [facility] 12-19-2022 11:38-0400 Diastolic blood pressure 76 mm[Hg] Mina Ortiz MD Work Phone: [facility] 12-19-2022 11:38-0400 Heart rate 79 /min Mina Ortiz MD Work Phone: [facility] 12-19-2022 11:38-0400 SaO2% (BldA) [Mass fraction] 91 % Mina Ortiz MD Work Phone: [facility] 07-13-2023 11:38-0400 Systolic blood pressure 117 mm[Hg] Mina Ortiz MD Work Phone: [facility] 10-08-2022 02:02-0400 Diastolic blood pressure 37 mm[Hg] Antwan Maharaj Other Phone: [facility] 10-08-2022 02:02-0400 Heart rate 86 /min Antwan Maharaj Other Phone: [facility] 10-08-2022 02:02-0400 Respiratory rate 16 /min Antwan Maharaj Other Phone: [facility] 10-08-2022 02:02-0400 SaO2% (BldA) [Mass fraction] 94 % Antwan Maharaj Other Phone: [facility] 10-08-2022 02:02-0400 Systolic blood pressure 91 mm[Hg] Antwan Maharaj Other Phone: [facility] 08-18-2022 16:48-0400 Diastolic blood pressure 76 mm[Hg] Antwan Maharaj Other Phone: [facility] 08-18-2022 16:48-0400 Heart rate 84 /min Antwan Maharaj Other Phone: [facility] 08-18-2022 16:48-0400 Respiratory rate 18 /min Antwan Maharaj Other Phone: [facility] 08-18-2022 16:48-0400 SaO2% (BldA) [Mass fraction] 95 % Antwan Maharaj Other Phone: [facility] 08-18-2022 16:48-0400 Systolic blood pressure 164 mm[Hg] Antwan Maharaj Other Phone: [facility] 08-18-2022 14:37-0400 Body temperature 98.06 [degF] Antwan Maharaj Other Phone: [facility] 08-18-2022 14:37-0400 Body weight 60.5 kg Antwan Harrietcory Other Phone: [facility] 08-09-2022 13:35-0500 Diastolic blood pressure 71 mm[Hg] Antwan Gusdomo Other Phone: [facility] 08-09-2022 13:35-0500 Heart rate 74 /min Antwan Gusdomo Other Phone: [facility] 08-09-2022 13:35-0500 Respiratory rate 18 /min Antwan Harrietcory Other Phone: [facility] 08-09-2022 13:35-0500 SaO2% (BldA) [Mass fraction] 97 % Antwan Harrietcory Other Phone: [facility] 08-09-2022 13:35-0500 Systolic blood pressure 132 mm[Hg] Antwan Gusdomo Other Phone: [facility] 08-09-2022 11:23-0500 Body height 157.4 cm Antwan Harrietcory Other Phone: [facility] 08-09-2022 11:23-0500 Body temperature 98.06 [degF] Antwan Gusdomo Other Phone: [facility] 08-09-2022 11:23-0500 Body weight 60 kg Antwan Gusdomo Other Phone: [facility] 08-01-2022 10:27-0500 Body height 162.6 cm Mina Ortiz MD Work Phone: [facility] 08-01-2022 10:27-0500 Body mass index (BMI) [Ratio] 22.83 kg/m2 Mina Ortiz MD Work Phone: [facility] 08-01-2022 10:27-0500 Body weight 60.33 kg Mina Ortiz MD Work Phone: [facility] 08-01-2022 10:27-0500 Diastolic blood pressure 75 mm[Hg] Mina Ortiz MD Work Phone: [facility] 08-01-2022 10:27-0500 Heart rate 80 /min Mina Ortiz MD Work Phone: [facility] 08-01-2022 10:27-0500 Respiratory rate 16 /min Mina Ortiz MD Work Phone: [facility] 08-01-2022 10:27-0500 SaO2% (BldA) [Mass fraction] 95 % Mina Ortiz MD Work Phone: [facility] 08-01-2022 10:27-0500 Systolic blood pressure 113 mm[Hg] Mina Ortiz MD Work Phone: [facility] 04-27-2019 13:37-0500 BMI (Body Mass Index) 19.4 kg/m2 Ti Rhodes [facility] 04-27-2019 13:37-0500 Body weight 51.26 kg Tijackie Rhodes [facility] 04-27-2019 13:37-0500 Height 162.6 cm Tijackie Rhodes [facility] Encounters Encounter Date Encounter Type Care Provider Facility Start: 12-06-2024 End: 12-07-2024 Refill Zara Evans DO Work Phone: [facility] Start: 11-17-2024 ambulatory ZARA EVANS [facility] Start: 11-11-2024 End: 11-11-2024 Office outpatient visit 15 minutes Marcos Barrera MD Work Phone: [facility] Comment on above: Gastroesophageal ref lux disease, unspecified whether esophagitis present (Primary Dx) Start: 11-11-2024 End: 11-11-2024 ambulatory MARCOS BARRERA [facility] Start: 10-25-2024 End: 10-25-2024 Patient encounter procedure Elizabeth Kimble DPM Work Phone: [facility] Comment on above: Onychomycosis (Prima ry Dx); Onychodystrophy; Diabetic peripheral neuropathy (HCC); Pain due to onychomycosis of toenail of right foot Start: 10-25-2024 End: 10-25-2024 ambulatory ELIZABETH KIMBLE [facility] Start: 10-12-2024 End: 10-12-2024 Chart abstracting Zara Evans DO Work Phone: [facility] Start: 10-10-2024 End: 12-10-2024 Follow-up encounter Zara Evans DO Work Phone: [facility] Comment on above: MTB SCREEN Start: 09-30-2024 End: 09-30-2024 Orders Only Oren Araujo MD Work Phone: [facility] Comment on above: Type 2 diabetes susi itus without complication, without long- term current use of insulin (HCC) (Primary Dx) Start: 09-23-2024 End: 09-23-2024 Orders Only Zara Evans DO Work Phone: [facility] Comment on above: At risk for tubercul osis (Primary Dx) Start: 09-21-2024 End: 09-21-2024 Office outpatient visit 25 minutes Zara Evans DO Work Phone: [facility] Comment on above: Type 2 diabetes susi itus without complication, without long- term current use of insulin (HCC) (Primary Dx); Recurrent falls; Abnormal CT of the abdomen Start: 09-21-2024 End: 09-21-2024 ambulatory ZARA EVANS [facility] Start: 09-16-2024 End: 09-16-2024 Orders Only Zara Evans DO Work Phone: [facility] Start: 09-15-2024 End: 09-16-2024 Refill Zara Evans DO Work Phone: [facility] Start: 09-09-2024 End: 09-09-2024 Office outpatient new 30 minutes Zara Evans DO Work Phone: [facility] Comment on above: Abnormal CT of the a bdomen Start: 09-09-2024 End: 09-09-2024 ambulatory ZARA EVANS [facility] Start: 09-08-2024 End: 09-12-2024 ambulatory Shelley Anuradha Movens PA-C Work Phone: [facility] Comment on above: Parkinson's disease, unspecified whether dyskinesia present, unspecified whether manifestations fluctuate (HCC) (Primary Dx); Primary osteoarthritis involving multiple joints; Frequent falls Start: 09-06-2024 End: 09-06-2024 Documentation procedure Zara Evans DO Work Phone: [facility] Comment on above: [facility] Start: 09-06-2024 End: 09-10-2024 ambulatory Shelley Anuradha Movens PA-C Work Phone: [facility] Comment on above: Parkinson's disease, unspecified whether dyskinesia present, unspecified whether manifestations fluctuate (HCC) (Primary Dx); Primary osteoarthritis involving multiple joints; Frequent falls Start: 09-02-2024 End: 09-06-2024 ambulatory Shelley Anuradha Movens PA-C Work Phone: [facility] Comment on above: Parkinson's disease, unspecified whether dyskinesia present, unspecified whether manifestations fluctuate (HCC) (Primary Dx); Primary osteoarthritis involving multiple joints; Frequent falls Start: 09-02-2024 ambulatory ZARA EVANS [facility] Start: 2024 End: 09-03-2024 ambulatory Shelley Anuradha Movens PA-C Work Phone: [facility] Comment on above: Parkinson's disease, unspecified whether dyskinesia present, unspecified whether manifestations fluctuate (HCC) (Primary Dx); Primary osteoarthritis involving multiple joints; Frequent falls Start: 08-27-2024 End: 08-31-2024 ambulatory Shelley Anuradha Movens PA-C Work Phone: [facility] Comment on above: Parkinson's disease, unspecified whether dyskinesia present, unspecified whether manifestations fluctuate (HCC) (Primary Dx); Primary osteoarthritis involving multiple joints; Frequent falls Start: 08-26-2024 End: 2024 ambulatory Shelley Maldonado PA-C Work Phone: [facility] Comment on above: Parkinson's disease, unspecified whether dyskinesia present, unspecified whether manifestations fluctuate (HCC) (Primary Dx); Primary osteoarthritis involving multiple joints; Frequent falls Start: 08-19-2024 End: 08-23-2024 ambulatory Shelley Maldonado PA-C Work Phone: [facility] Comment on above: Parkinson's disease, unspecified whether dyskinesia present, unspecified whether manifestations fluctuate (HCC) (Primary Dx); Primary osteoarthritis involving multiple joints; Frequent falls Constipation, unspec ified constipation type (Primary Dx); Frequent falls Start: 08-13-2024 End: 08-13-2024 [facility] Comment on above: [facility]ational Therapy ; Neuro Start: 08-13-2024 ambulatory [facility] Start: 08-05-2024 ambulatory ZARA EVANS [facility] Start: 08-03-2024 End: 08-03-2024 Transcribe Orders Shelley Maldonado PA-C Work Phone: [facility] Comment on above: Closed fracture of s ternum with routine healing, unspecified portion of sternum, subsequent encounter (Primary Dx); Multiple falls; Parkinson's disease, unspecified whether dyskinesia present, unspecified whether manifestations fluctuate (HCC); Primary osteoarthritis involving multiple joints Start: 08-02-2024 End: 08-06-2024 ambulatory Shelley Maldonado PA-C Work Phone: [facility] Comment on above: Parkinson's disease, unspecified whether dyskinesia present, unspecified whether manifestations fluctuate (HCC) (Primary Dx); Primary osteoarthritis involving multiple joints; Frequent falls; Multiple falls Start: 07-29-2024 End: 07-29-2024 Office outpatient visit 15 minutes Zara Evans DO Work Phone: [facility] Comment on above: Recurrent falls (Teresa jayesh Dx) Start: 07-29-2024 End: 07-29-2024 ambulatory ZARA EVANS [facility] Start: 07-27-2024 End: 07-27-2024 Patient encounter procedure Elizabeth Kimble DPM Work Phone: [facility] Comment on above: Onychomycosis (Prima ry Dx); Onychodystrophy; Diabetic peripheral neuropathy (HCC); Pain due to onychomycosis of toenail of right foot Start: 07-27-2024 End: 07-27-2024 ambulatory ZARA EVANS [facility] Start: 07-26-2024 End: 07-26-2024 Orders Only Zara Marlon Evans DO Work Phone: [facility] Comment on above: Abnormal CT of the a bdomen (Primary Dx) Start: 07-26-2024 ambulatory ZARA EVANS [facility] Start: 07-19-2024 End: 07-23-2024 Evaluation and management of inpatient [facility] Start: 07-14-2024 End: 07-14-2024 Emergency department patient visit ZARA Mason [facility] Start: 07-13-2024 End: 07-13-2024 Office outpatient visit 25 minutes Zara Marlon Evans DO Work Phone: [facility] Comment on above: Recurrent falls (Teresa jayesh Dx); Primary osteoarthritis involving multiple joints Start: 07-13-2024 End: 07-13-2024 ambulatory ZARA EVANS [facility] Start: 07-09-2024 End: 07-09-2024 Emergency department patient visit Miles He DO Work Phone: [facility] Comment on above: Fall, initial encoun ter (Primary Dx); Contusion of right knee and lower leg, initial encounter Start: 06-28-2024 End: 06-28-2024 ambulatory RAFA L [facility] Start: 06-28-2024 End: 06-28-2024 Office outpatient visit [address] [facility] Work Phone: [facility] Comment on above: Acquired hypothyroid ism (Primary Dx); Primary hypertension; Gastroesophageal reflux disease without esophagitis; Schizophrenia, unspecified type; Parkinson's disease without dyskinesia or fluctuating manifestations; Balance disorder Start: 06-23-2024 End: 06-23-2024 Office outpatient new 45 minutes Zara Evans DO Work Phone: [facility] Comment on above: Primary hypertension (Primary Dx); Type 2 diabetes mellitus without complication, without long-term current use of insulin (HCC); Parkinson's disease, unspecified whether dyskinesia present, unspecified whether manifestations fluctuate (HCC); Schizophrenia, unspecified type (HCC); Recurrent falls Start: 06-23-2024 End: 06-23-2024 ambulatory ZARA EVANS [facility] Start: 05-26-2024 End: 05-26-2024 ambulatory [facility] Start: 05-25-2024 ambulatory MINA ORTIZ [facility] Start: 05-19-2024 End: 05-19-2024 ambulatory [facility] Start: 05-18-2024 End: 05-18-2024 Refill Mina Ortiz MD Work Phone: [facility] Comment on above: Parkinson disease (H CC) Start: 05-11-2024 End: 05-11-2024 ambulatory [facility] Start: 05-05-2024 End: 05-05-2024 ambulatory [facility] Start: 05-04-2024 End: 05-04-2024 ambulatory [facility] Start: 04-28-2024 End: 04-28-2024 ambulatory [facility] Start: 04-27-2024 End: 04-27-2024 ambulatory [facility] Start: 04-27-2024 End: 04-27-2024 ambulatory ELIZABETH KIMBLE [facility] Start: 04-27-2024 End: 04-27-2024 Patient encounter procedure Elizabeth Kimble DPM Work Phone: [facility] Comment on above: Onychomycosis (Prima ry Dx); Onychodystrophy; Diabetic peripheral neuropathy (HCC); Pain due to onychomycosis of toenail of right foot Start: 04-22-2024 End: 04-22-2024 ambulatory [facility] Start: 04-20-2024 End: 04-20-2024 ambulatory [facility] Start: 04-15-2024 End: 04-15-2024 ambulatory [facility] Start: 03-29-2024 End: 03-29-2024 ambulatory [facility] Amb[facility] Start: 03-29-2024 End: 03-29-2024 Office outpatient visit 25 minutes Rafa Jacinto DO Work Phone: [facility] Comment on above: Type 2 diabetes susi itus without complication, without long- term current use of insulin (Multi) (Primary Dx); Primary hypertension; Acquired hypothyroidism; Gastroesophageal reflux disease without esophagitis; Stage 3a chronic kidney disease (Multi); Schizophrenia, unspecified type; Parkinson's disease without dyskinesia or fluctuating manifestations Start: 03-22-2024 End: 03-22-2024 ambulatory [facility] Start: 03-12-2024 End: 03-12-[address] [facility] Start: 03-01-2024 End: 03-01-2024 ambulatory NIMCO [facility] Start: 02-27-2024 End: 02-27-2024 ambulatory [facility] Start: 02-25-2024 End: 02-25-2024 ambulatory [facility] Start: 02-23-2024 End: 02-23-2024 ambulatory [facility] Start: 02-13-2024 End: 02-13-2024 ambulatory [facility] Start: 02-11-2024 End: 02-11-2024 ambulatory [facility] Start: 02-10-2024 End: 02-10-2024 ambulatory [facility] Start: 02-05-2024 End: 02-05-2024 Office outpatient visit 15 minutes Tracy Angelman ELECTRONICS COMMODITY MANAGER-SOCIAL MEDIA INTERN Work Phone: [facility] Comment on above: Other closed fractur e of distal end of right ulna, initial encounter (Primary Dx) Start: 02-05-2024 End: 02-05-2024 ambulatory [facility] Ambulatory Start: 02-04-2024 End: 02-04-2024 ambulatory [facility] Start: 02-03-2024 End: 02-03-2024 Office outpatient visit 15 minutes Sachin Morales MD Work Phone: [facility] Comment on above: Right wrist pain (Pr imary Dx) Start: 02-03-2024 End: 02-03-2024 Orders Only Mariana Oates KILN OPERATOR HELPER [facility] Comment on above: Pain (Primary Dx) Start: 02-02-2024 End: 02-02-2024 ambulatory [facility] Start: 01-30-2024 End: 01-30-2024 ambulatory [facility] Start: 01-29-2024 End: 01-30-2024 ambulatory DARIN TRUJILLO [facility] Start: 01-29-2024 End: 01-29-2024 Subsequent hospital visit by physician Sabas Greenev1 [employer] [facility] Comment on above: Arrived Start: 01-29-2024 End: 01-29-2024 Emergency department patient visit Darin Trujillo MD Work Phone: [facility] Comment on above: Subluxation of dista l end of right ulna, subsequent encounter (Primary Dx); Contusion of right forearm, initial encounter; Contusion of right knee, initial encounter; Subluxation of tooth Start: 01-26-2024 End: 01-26-2024 Patient encounter procedure Elizabeth Kimble DPM Work Phone: [facility] Comment on above: Onychomycosis; Onychodystrophy; Diabetic peripheral neuropathy (HCC); Pain due to onychomycosis of toenail of right foot Start: 01-26-2024 End: 01-26-2024 ambulatory ELIZABETH HANSENR [facility] Start: 01-23-2024 End: 01-23-2024 ambulatory [facility] Start: 01-22-2024 End: 01-22-2024 ambulatory [facility] Start: 01-21-2024 End: 01-21-2024 ambulatory [facility] Start: 01-21-2024 End: 01-21-2024 Office outpatient visit 15 minutes Huy Vasquez PA-C Work Phone: [facility] Comment on above: SAH (subarachnoid he morrhage) (HCC) (Primary Dx) Start: 01-21-2024 End: 01-21-2024 ambulatory HUY VASQUEZ [facility] Start: 01-16-2024 End: 01-16-2024 ambulatory [facility] Start: 01-12-2024 End: 01-12-2024 ambulatory [facility] Start: 01-09-2024 End: 01-09-2024 ambulatory [facility] Start: 01-08-2024 End: 01-08-2024 ambulatory MINA ORTIZ [facility] Start: 01-08-2024 End: 01-08-2024 Office outpatient visit 40 minutes Mina Ortiz MD Work Phone: [facility] Comment on above: Parkinson disease (H CC) Start: 01-06-2024 End: 01-06-2024 ambulatory HUY VASQUEZ [facility] Start: 01-02-2024 End: 01-02-2024 ambulatory [facility] Start: 12-31-2023 End: 12-31-2023 ambulatory [facility] Start: 12-29-2023 End: 12-29-2023 ambulatory [facility] Start: 12-29-2023 End: 12-29-2023 Office outpatient visit 25 minutes Rafa Amy [facility] Work Phone: [facility] Comment on above: Primary hypertension (Primary Dx); Type 2 diabetes mellitus without complication, without long-term current use of insulin (Multi); Acquired hypothyroidism; Disease of thyroid gland; Gastroesophageal reflux disease without esophagitis; Stage 3a chronic kidney disease (Multi); Schizophrenia, unspecified type (Multi); Parkinson's disease without dyskinesia or fluctuating manifestations (Multi) Start: 12-26-2023 End: 12-26-2023 ambulatory [facility] Start: 12-24-2023 End: 12-24-2023 ambulatory [facility] Start: 12-24-2023 End: 12-24-2023 ambulatory SACHIN MORALES [facility] Start: 12-24-2023 End: 12-24-2023 Postop follow up visit related to original px Sachin Morales MD Work Phone: [facility] Comment on above: Right wrist pain (Pr imary Dx) Start: 12-18-2023 End: 12-18-2023 Orders Only Sachin Morales MD Work Phone: [facility] Comment on above: Pain (Primary Dx) Start: 12-17-2023 End: 12-17-2023 Office outpatient visit 40 minutes [facility] ELECTRONICS COMMODITY MANAGER-SOCIAL MEDIA INTERN Work Phone: [facility] Comment on above: Parkinson's disease with fluctuating manifestations, unspecified whether dyskinesia present (Multi) (Primary Dx); Subarachnoid hemorrhage (Multi) Start: 12-17-2023 End: 12-17-2023 ambulatory [facility] Start: 12-16-2023 End: 12-16-2023 ambulatory PRISCILLA MACKEY [facility] Start: 12-16-2023 End: 12-16-2023 Office outpatient visit 15 minutes Priscilla Mackey SOCIAL MEDIA INTERN Work Phone: [facility] Comment on above: SAH (subarachnoid he morrhage) (HCC) (Primary Dx) Start: 12-08-2023 End: 12-08-2023 Orders Only Huy Vasquez PA-C Work Phone: [facility] Comment on above: SAH (subarachnoid he morrhage) (HCC) (Primary Dx) Start: 12-04-2023 End: 12-05-2023 Evaluation and management of inpatient [facility] Start: 12-04-2023 End: 12-04-2023 Emergency department patient visit Jasmyn Wade DO Work Phone: [facility] Emergency Medicine Comment on above: Fall, initial encoun ter (Primary Dx); Traumatic hemorrhage of right cerebrum with loss of consciousness of 30 minutes or less, initial encounter (Multi); Facial abrasion, initial encounter; Contusion of face, initial encounter; Dislocation of right wrist, initial encounter Start: 10-15-2023 End: 10-15-[address] [facility] Start: 10-14-2023 End: 10-14-2023 Office outpatient visit 15 minutes Elizabeth Parveen Hansenr DPM Work Phone: [facility] Comment on above: Diabetic peripheral neuropathy (HCC) (Primary Dx); Onychodystrophy; Onychomycosis; Pain due to onychomycosis of toenail of right foot Start: 07-19-2023 End: 07-19-2023 Emergency department patient visit [facility] Start: 07-15-2023 End: 07-15-2023 Office outpatient new 30 minutes Elizabeth Sabry [place] DPM Work Phone: [facility] Comment on above: Comprehensive diabet ic foot examination, type 2 DM, encounter for (HCC) (Primary Dx); Diabetic peripheral neuropathy (HCC); Onychodystrophy; Onychomycosis; Pain due to onychomycosis of toenail of right foot Start: 07-10-2023 End: 07-10-2023 Subsequent hospital visit by physician Sabas [id number] Comment on above: Encounter for screen ing mammogram for malignant neoplasm of breast Start: 06-25-2023 Orders Only Mina Ortiz MD Work Phone: [facility] Comment on above: Parkinson disease Start: 06-24-2023 Refill Mary Anne Julianne strickland MA [facility] Comment on above: Parkinson disease Start: 06-23-2023 End: 06-23-2023 Office outpatient visit 25 minutes Mina Ortiz MD Work Phone: [facility] Comment on above: Parkinson disease Start: 04-21-2023 End: 04-21-2023 Office outpatient new 45 minutes Rafa Jacinto DO Work Phone: [facility] Comment on above: Encounter for screen ing mammogram for malignant neoplasm of breast (Primary Dx); Type 2 diabetes mellitus without complication, without long-term current use of insulin ([facility]); Acquired hypothyroidism; Stage 3a chronic kidney disease ([facility]); Parkinson's disease without dyskinesia or fluctuating manifestations; Schizophrenia, unspecified type ([facility]) Start: 02-04-2023 Patient encounter procedure [facility]an Maharaj [facility] Work Phone: Start: 01-29-2023 Patient encounter procedure [facility]an Maharaj [facility] Phone: [facility] Work Phone: Start: 01-29-[address] Antwan Maharaj Facility:[id number] Start: 01-21-[address] Antwan Maharaj Facility:[id number] Start: 01-21-2023 Patient encounter procedure Antwan Maharaj [facility] Work Phone: Start: 01-14-2023 Patient encounter procedure Antwan Maharaj Work Phone: [facility] Work Phone: Start: 01-14-[address] Antwan Maharaj Facility:[id number] Start: 12-31-[address] Antwan Maharaj Facility:[id number] Start: 12-24-[address] Antwan Maharaj Facility:[id number] Start: 12-24-2022 Patient encounter procedure Antwan Maharaj Work Phone: [facility] Work Phone: Start: 12-19-[address] Antwan Maharaj Facility:[id number] Start: 12-19-2022 Patient encounter procedure Antwan Maharaj Work Phone: [facility] Work Phone: Start: 12-19-2022 End: 12-19-2022 Office outpatient visit 25 minutes Mina Ortiz MD Work Phone: [facility] Comment on above: Parkinson disease (H CC) Start: 12-03-2022 Patient encounter procedure Antwan Maharaj Work Phone: [facility] Work Phone: Start: 12-03-[address] Antwan Maharaj Facility:[id number] Start: 11-25-2022 Patient encounter procedure Antwan Maharaj Work Phone: [facility] Work Phone: Start: 11-25-[address] Antwan Maharaj Facility:[id number] Start: 11-06-2022 End: 11-06-2022 Emergency department patient visit Erickson Hernandez [facility] Emergency Start: 10-07-2022 End: 10-08-2022 Emergency department patient visit Osiel Vergara [facility] Emergency 11 Start: 08-18-2022 End: 08-18-2022 Emergency department patient visit Sharmaine Dean [facility] Emergency 12 Start: 08-09-2022 End: 08-09-2022 Emergency department patient visit Erickson Hernandez [facility] Emergency Start: 08-01-2022 End: 08-01-2022 Office outpatient visit 25 minutes Mina Ortiz MD Work Phone: [facility] Comment on above: Parkinson disease (H CC) (Primary Dx) Start: 05-25-2022 End: 05-26-2022 Emergency department patient visit France Lowe [facility] Emergency 07 Start: 04-22-[address] Antwan Maharaj Facility:[id number] Start: 04-17-2022 End: 04-18-2022 ambulatory MINA ORTIZ [facility] Start: 04-15-2022 Orders Only Mina Ortiz MD Work Phone: [facility] Comment on above: NPH (normal pressure hydrocephalus) (HCC) (Primary Dx); Abnormal coagulation profile NPH (normal pressure hydrocephalus) (HCC) (Primary Dx) Start: 11-15-2021 Transcribe Orders Antwan espinoza MD Work Phone: [facility] Central Scheduling Comment on above: Other symptoms and s igns involving the nervous system (Primary Dx); Abnormal brain MRI Start: 05-18-2019 End: 05-18-2019 Office outpatient visit 10 minutes Tijackie Shea Floridalma Work Phone: [facility] Comment on above: Fracture of unspecif ied phalanx of left little finger, initial encounter for closed fracture (Primary Dx) Start: 04-27-2019 End: 04-27-2019 Office outpatient new 30 minutes Antwan Maharaj Work Phone: [facility] Comment on above: Fracture of unspecif ied phalanx of left little finger, initial encounter for closed fracture Start: 11-03-2018 End: 11-03-2018 Patient encounter procedure Antwan Maharaj Work Phone: [facility] Comment on above: Dysphagia, unspecifi ed type Start: 12-25-2017 Patient encounter Antwan Maharaj [facility] Start: 07-26-2017 Patient encounter Antwan Maharaj [facility] Start: 04-17-2017 End: 04-17-2017 Patient encounter Antwan Maharaj Facility:[facility] Start: 04-09-2017 End: 04-09-2017 Ambulatory Antwan Watters Work Phone: [facility] Start: 01-14-2017 Ambulatory [facility] Facility :[facility] Start: 01-13-2017 End: 01-13-2017 Emergency department patient visit [facility] Facility:[facility] Procedures Date Procedure Procedure Detail Performing Clinician [...] or 75+ (1 - 1-dose 75+ series) [facility] Start: 07-14-2034 Tetanus vaccination Tetanus: Every 10yrs [facility] Start: 07-19-2033 DTaP/Tdap/Td Vaccines (4 - Td or Tdap) DTaP/Tdap/Td Vaccines (4 - Td or Tdap) [facility] Start: 07-19-2033 Tetanus vaccination Tetanus: Every 10yrs [facility] Start: 08-09-2032 DTaP/Tdap/Td Vaccines (2 - Td or Tdap) DTaP/Tdap/Td Vaccines (2 - Td or Tdap) [facility] Start: 08-09-2032 Tetanus vaccination Tetanus: Every 10yrs [facility] Start: 11-17-2028 Tetanus vaccination [facility] Start: 09-21-2025 Urine screening for protein Urine (micro)albumin/creatini ne ratio - Diabetes [facility] Start: 07-19-2025 eGFR Diabetes eGFR Diabetes [facility] Start: 07-19-2025 Urine screening for protein eGFR Diabetes [facility] Start: 07-11-2025 Screening for malignant neoplasm of colon [facility] Start: 06-28-2025 Thyroid stimulating hormone measurement TSH Level [facility] Start: 03-30-2025 End: 03-30-2025 Patient encounter procedure 03/30/2025 10:40 AM EDT Office Visit [facility] [address] [place] [address] Zara Evans DO [address] [address] [facility] Start: 03-12-2025 Thyroid stimulating hormone measurement TSH Level [facility] Start: 03-03-2025 Glaucoma screening Diabetes: Retinopathy Screening [facility] Start: 02-07-2025 Influenza vaccination Influenza Vaccine (#1) [facility] Start: 01-24-2025 End: 01-24-2025 Patient encounter procedure 01/24/2025 11:30 AM EDT Office Visit [facility] [address] [place] [phone] Elizabeth Kimble DPM [address] [place] [address] [facility] Physician [facility] Start: 01-11-2025 End: 01-11-2025 Patient encounter procedure 01/11/2025 9:40 AM EDT Office Visit [facility] [address] Medical [address] Building, 2nd [place] [address] Mina Ortiz MD [address] [address] [facility] Start: 12-30-2024 End: 12-30-2024 Patient encounter procedure 12/30/2024 11:20 AM EDT Office Visit [facility] [address] [place] [address] Zara Evans DO [address] [address] [facility] Start: 12-21-2024 Hemoglobin A1c measurement A1C [facility] Start: 12-04-2024 Urine screening for protein eGFR Diabetes [facility] Start: 11-11-2024 End: 11-11-2024 Patient encounter procedure 11/11/2024 11:00 AM EDT Office Visit [facility] [address] [place] [id number] Marcos Barrera MD [address] [place] [address] [facility] Start: 10-25-2024 End: 10-25-2024 Patient encounter procedure 10/25/2024 11:00 AM EDT Office Visit [facility] Physician [facility] Pod[facility] [address] [place] [address] Elizabeth Kimble DPM [address] [place] [address] [facility] Physician [facility] Start: 10-14-2024 Lipid panel Lipid Panel [facility] Start: 10-14-2024 Thyroid stimulating hormone measurement TSH Level [facility] Start: 09-30-2024 End: 09-30-2024 Patient encounter procedure [facility] Start: 09-26-2024 Hemoglobin A1c measurement [facility] Start: 09-21-2024 End: 09-21-2024 Patient encounter procedure 09/21/2024 10:40 AM EDT Office Visit [facility] [address] [place] [address] [place] [address] [place] [address] [facility] Start: 09-09-2024 End: 09-09-2024 Patient encounter procedure 09/09/2024 2:00 PM EDT Office Visit [facility] [address] [place] [address] Zara Evans DO [address] [address] Marcos Barrera MD [address] [place] [address] [facility] Start: 09-08-2024 End: 09-08-2024 ambulatory 09/08/2024 10:15 AM EDT Treatment [facility] [address] [place] [phone] Shelley Maldonado PA-C [address] [place] [phone] Julianne Buck, PT [facility] Start: 09-06-2024 End: 09-06-2024 ambulatory 09/06/2024 10:15 AM EDT Treatment [facility] [address] [place] [address] Shelley Maldonado PA-C [address] [facility] [place] [address] [facility] Start: 09-02-2024 End: 09-02-2024 ambulatory 09/02/2024 10:15 AM EDT Treatment [facility] [address] [place] [address] Shelley Maldonado PA-C [address] [place] [address] [facility] Start: 2024 End: 2024 ambulatory 2024 10:15 AM EDT Treatment [facility] [address] [place] [address] Shelley Maldonado PA-C [address] [place] [address] [facility] Start: 08-27-2024 End: 08-27-2024 ambulatory [facility] Start: 08-26-2024 End: 08-26-2024 ambulatory 08/26/2024 10:15 AM EDT Treatment [facility] [address] [place] [address] Shelley Maldonado PA-C [address] [place] [address] [facility] Start: 08-13-2024 End: 08-13-2024 ambulatory 08/13/2024 10:15 AM EST Evaluation [facility] [address] [place] [address] Shelley Maldonado PA-C [address] [place] [address] Soto Daly, OT Discharge Disposition: Home [facility] Start: 08-02-2024 End: 08-02-2024 ambulatory 08/02/2024 12:30 PM EST Evaluation [facility] [address] [place] [address] Shelley Maldonado PA-C [address] [place] [address] Julianne Buck, PT Discharge Disposition: Home [facility] Start: 07-29-2024 End: 07-29-2024 Patient encounter procedure 07/29/2024 11:20 AM EST Office Visit [facility] [address] [place] [phone] Zara Evans DO [address] [place] [address] [facility] Start: 07-27-2024 End: 07-27-2024 Patient encounter procedure 07/27/2024 10:00 AM EST Office Visit [facility] [address] [place] [address] Elizabeth Kimble, BHUMI [address] [place] [address] [facility] Start: 07-22-2024 End: 07-22-2024 Patient encounter procedure 07/22/2024 11:20 AM EST Office Visit [facility] [address] [place] [address] Zara Evans DO [address] [place] [address] [facility] Primary Care Physicians Start: 07-15-2024 Diabetic foot examination Diabetic Foot Exam [facility] Start: 07-10-2024 Screening for malignant neoplasm of breast Mammogram [facility] Start: 07-03-2024 Screening for malignant neoplasm of cervix [facility] Start: 06-28-2024 End: 06-28-2025 TSH with reflex to Free T4 if abnormal [facility] Service Area Work Phone: Comment on above: Expected: 06/28/2024 (Approximate), Expi res: 06/28/2025 Start: 06-28-2024 End: 06-28-2024 Patient encounter procedure 06/28/2024 12:40 PM EST Office Visit [facility] [place] [address] [address] Rafa Jacinto, DO 53 [facility] [place] [address] [facility] Start: 06-12-2024 Hemoglobin A1c measurement [facility] Start: 04-27-2024 End: 04-27-2024 Patient encounter procedure 04/27/2024 10:00 AM EST Office Visit [facility] Physician [facility] Podiatry [address] [place] [phone] Elizabeth Kimble, DPM [address] [place] [address] [facility] Physician [facility] Start: 04-15-2024 End: 04-15-2024 ambulatory 04/15/2024 9:45 AM EST Treatment [facility] [address] [place] [address] Perla Robbins, OT [address] [place] [address] [facility] Start: 03-29-2024 End: 03-29-2024 Patient encounter procedure 03/29/2024 12:40 PM EDT Office Visit [facility] [address] [address] Rafa Jacinto L, DO [address] [facility] [place] [address] [facility] Start: 03-03-2024 Glaucoma screening Diabetes: Retinopathy Screening [facility] Start: 03-01-2024 End: 03-01-2024 ambulatory 03/01/2024 9:30 AM EDT Treatment [facility] [address] [facility] [address] [place] [address] Nimco Reyna, PT [address] [facility] Re[facility] Services [place], [place] [id number] [facility] Start: 02-20-2024 End: 02-20-2024 ambulatory 02/20/2024 8:30 AM EDT Treatment [facility] [address] [facility] [address] [place] [address] Justa Rondon, CUSTOM BIKE BUILDER [address] Rehab Services [place], [place] [id number] [facility] Start: 02-18-2024 End: 02-18-2024 ambulatory 02/18/2024 9:15 AM EDT Treatment [facility] [address] [facility] [address] [place] [address] Della Rivera, CUSTOM BIKE BUILDER [address] [place] [address] [facility] Start: 02-16-2024 End: 02-16-2024 ambulatory 02/16/2024 10:00 AM EDT Treatment [place] [address] [place] [address] [place] [address] [facility] Department [place] [address] [facility] Start: 02-13-2024 End: 02-13-2024 ambulatory 02/13/2024 3:30 PM EDT Treatment [facility] [address] [facility] [address] [place] [address] Mary Anne Enriquez, CUSTOM BIKE BUILDER [address] [facility] [place] [id number] [facility] Start: 02-11-2024 End: 02-11-2024 ambulatory 02/11/2024 2:00 PM EDT Treatment [facility] [address] [facility] [address] [place] [address] Mary Anne Enriquez, CUSTOM BIKE BUILDER [address] [place] [address] [facility] Start: 02-10-2024 End: 02-10-2024 ambulatory 02/10/2024 10:30 AM EDT Treatment [address] [address] Pooja Malave OTA [facility] [place] [address] [facility] Start: 02-08-2024 COVID-19 Vaccine ( season) COVID-19 Vaccine ( season) [facility] Start: 02-08-2024 Influenza vaccination Influenza Vaccine (#1) [facility] Start: 02-05-2024 End: 02-05-2024 ambulatory 02/05/2024 9:45 AM EDT Treatment [address] [address] Pooja Malave OTA [address] [facility] [place] [address] [facility] Start: 02-04-2024 End: 02-04-2024 ambulatory 02/04/2024 3:30 PM EDT Treatment [facility] [address] [address] Della Rivera, CUSTOM BIKE BUILDER [address] [facility] [place], [place] [phone] [facility] Start: 02-02-2024 End: 02-02-2024 ambulatory 02/02/2024 10:00 AM EDT Treatment [facility] [address] [place] [address] [place] [address] [facility] Department [place] [address] [facility] Start: 01-30-2024 End: 01-30-2024 ambulatory 01/30/2024 10:00 AM EDT Treatment [facility] [address] [place] [phone] Elbert Sosa, PT [address] [facility] [place] [address] [facility] Start: 01-26-2024 End: 01-26-2024 Patient encounter procedure 01/26/2024 1:45 PM EDT Office Visit [facility]ician Group Podiatry [address] [place] [address] Elizabeth Kimble, BHUMI [address] [place] [address] [facility] Podiatry Start: 01-26-2024 End: 01-26-2024 Patient encounter procedure 01/26/2024 8:30 AM EDT Office Visit [facility] Physician Group Podiatry [address] [place] [address] Elizabeth Kimble DPM [address] [place] [address] [facility] Podiatry Start: 01-23-2024 End: 01-23-2024 ambulatory 01/23/2024 9:15 AM EDT Treatment [facility] [address] [facility] [address] [place] [address] Denise Morgan, CUSTOM BIKE BUILDER [address] [facility] [place] [address] [facility] Start: 01-21-2024 End: 01-21-2024 ambulatory 01/21/2024 3:30 PM EDT Treatment [facility] [address] [facility] [address] [place] [address] Della Rivera, CUSTOM BIKE BUILDER [address] [facility] [place] [address] [facility] Start: 01-21-2024 End: 01-21-2024 Patient encounter procedure 01/21/2024 10:15 AM EDT Office Visit [facility] Neurological Physicians [address] [facility] [place] [phone] Huy Vasquez PA-C [address] [place] [address] [facility] Neurological Physicians Start: 01-19-2024 End: 01-19-2024 Patient encounter procedure 01/19/2024 8:15 AM EDT Office Visit [facility]ician Group Podiatry [address] [place] [address] Elizabeth Kimble DPM [address] [place] [address] [facility] Physician Group Podiatry Start: 01-16-2024 End: 01-16-2024 ambulatory 01/16/2024 2:00 PM EDT Treatment [facility] [address] [facility] [address] [place] [address] Della Rivera, CUSTOM BIKE BUILDER [address] [facility] [place] [address] [facility] Start: 01-15-2024 Hemoglobin A1c measurement [facility] Start: 01-12-2024 End: 01-12-2024 ambulatory 01/12/2024 11:30 AM EDT Evaluation [facility] [address] [place] [address] [place] [address] [facility] Department [place] [address] [facility] Start: 01-09-2024 End: 01-09-2024 ambulatory 01/09/2024 9:15 AM EDT Treatment [facility] [address] [address] Denise Morgan, CUSTOM BIKE BUILDER [address] [facility] [place] [address] [facility] Start: 01-08-2024 End: 01-08-2024 Patient encounter procedure 01/08/2024 8:40 AM EDT Office Visit [facility] Neurological Physicians [facility] [place] Medical Office [facility], 2nd [place] [address] Mina Ortiz MD [facility] [place] [address] [address] [facility] Neurological Physicians Start: 01-07-2024 End: 01-07-2024 ambulatory 01/07/2024 7:45 AM EDT Treatment [facility] [address] [facility] [address] [place] [address] Denise Morgan, CUSTOM BIKE BUILDER [address] [facility] [place] [address] [facility] Start: 01-06-2024 End: 01-06-2024 Patient encounter procedure 01/06/2024 10:00 AM EDT Appointment [facility] CT Scan [address] [place] [address] Huy Vasquez PA-C [address] [facility] Mariusz [address] [address] [facility] CT Scan Start: 01-05-2024 End: 12-07-2024 CT Head WO contrast CT Head Or Brain Without Contrast Imaging Routine SAH (subarachnoid hemorrhage) (HCC) Expected: 01/05/2024, Expires: 12/07/2024 [facility] Work Phone: Comment on above: Expected: 01/05/2024, Expires: Start: 01-02-2024 End: 01-02-2024 ambulatory 01/02/2024 9:15 AM EDT Treatment [facility] [address] [facility] [address] [place] [address] Denise Morgan, CUSTOM BIKE BUILDER [address] [facility] [place] [address] [facility] Start: 12-31-2023 End: 12-31-2023 ambulatory 12/31/2023 9:15 AM EDT Treatment [facility] [address] [facility] [address] [place] [address] Denise Morgan, CUSTOM BIKE BUILDER [address] [facility] [place] [address] [facility] Start: 12-29-2023 End: 12-29-2023 Patient encounter procedure 12/29/2023 4:40 PM EDT Office [facility] [address] [place] [address] Rafa Jacinto, DO [address] [facility] [place] [address] [facility] Start: 12-29-2023 End: 12-28-2024 Comprehensive metabolic 2000 panel - Serum or Plasma Comprehensive Metabolic Panel Lab Routine Type 2 diabetes mellitus without complication, without long-term current use of insulin (Multi) Expected: 12/29/2023 (Approximate), Expires: 12/28/2024 [facility] Work Phone: Comment on above: Expected: 12/29/2023 [...] insulin (Multi) Expected: 12/29/2023 (Approximate), Expires: 12/28/2024 [facility] Work Phone: Comment on above: Expected: 12/29/2023 (Approximate), Expi res: 12/28/2024 Start: 12-24-2023 End: 12-24-2023 ambulatory 12/24/2023 1:15 PM EDT Evaluation [facility] [address] [place] [address] Ana Landaverde, BUSINESS CONTROL MANAGER [address] [facility] [place] [address] ILAN Garcia Start: 12-24-2023 End: 12-24-2023 Patient encounter procedure 12/24/2023 9:30 AM EDT Office Visit [facility] Orthopedic and Sports Medicine [address] [facility] [place] [address] Sachin Morales MD [address] [place] [address] [facility] Orthopedic and Sports Medicine Start: 12-16-2023 End: 12-16-2023 Patient encounter procedure 12/16/2023 1:40 PM EDT Office Visit [facility] [address] [place] [address] Medical Office [facility], 5th [place] [address] Priscilla Mackey, SOCIAL MEDIA INTERN [address] [place] [address] [facility] Start: 10-20-2023 End: 04-21-2024 Comprehensive metabolic 2000 panel - Serum or Plasma Comprehensive Metabolic Panel Lab Routine Type 2 diabetes mellitus without complication, without long-term current use of insulin (CMS/HCC) Expected: 10/20/2023 (Approximate), Expires: 04/21/2024 [facility] Work Phone: Comment on above: Expected: 10/20/2023 (Approximate), Expi res: 04/21/2024 Start: 10-20-2023 End: 04-21-2024 Hemoglobin A1c/Hemoglobin.total in Blood Hemoglobin A1C Lab Routine Type 2 diabetes mellitus without complication, without long-term current use of insulin (CMS/HCC) Expected: 10/20/2023 (Approximate), Expires: 04/21/2024 [facility] Work Phone: Comment on above: Expected: 10/20/2023 (Approximate), Expi res: 04/21/2024 Start: 10-20-2023 End: 04-21-2024 Lipid 1996 panel - Serum or Plasma Lipid Panel Lab Routine Type 2 diabetes mellitus without complication, without long-term current use of insulin ([facility]) Expected: 10/20/2023 (Approximate), Expires: 04/21/2024 [facility] Work Phone: Comment on above: Expected: 10/20/2023 (Approximate), Expi res: 04/21/2024 Start: 10-20-2023 End: 04-21-2024 TSH with reflex to Free T4 if abnormal TSH with reflex to Free T4 if abnormal Lab Routine Acquired hypothyroidism Expected: 10/20/2023 (Approximate), Expires: 04/21/2024 [facility] Work Phone: Comment on above: Expected: 10/20/2023 (Approximate), Expi res: 04/21/2024 Start: 10-20-2023 End: 10-20-2023 Patient encounter procedure 10/20/2023 10:20 AM EDT Office Visit [facility] [address] [facility] [address] [place] [address] Rafa Jacinto L, DO [address] [facility] [address] [facility] Start: 10-14-2023 End: 10-14-2023 Patient encounter procedure 10/14/2023 8:15 AM EDT Office Visit [facility] Physician Group Podiatry [address] [facility] [place] [address] Elizabeth Kimble, BHUMI [address] [place] [address] [facility] Physician Group Podiatry Start: 07-10-2023 End: 07-10-2023 Professional / ancillary services management 07/10/2023 10:00 AM EST Ancillary Procedure [place] [address] [address] [facility] Start: 06-20-2023 End: 06-21-2024 DBT Breast - bilateral BI mammo bilateral screening tomosynthesis Imaging Routine Encounter for screening mammogram for malignant neoplasm of breast Expected: 06/20/2023, Expires: 06/21/2024 [facility] Service Area Work Phone: Comment on above: Expected: 06/20/2023, Expires: Start: 02-07-2023 Influenza vaccination [facility] Start: 02-04-2023 PTRECHADUL, Provider: [place], Status: Pen, Time: 9:30 AM PTRECHADUL, Provider: [place], Status: Pen, Time: 9:30 AM [facility] Work Phone: Start: 01-29-2023 [email or web address], Provider: [place]i [place], Status: Pen, Time: 9:15 AM PTFUADULT4, Provider: [place], Status: Pen, Time: 9:15 AM [facility] Work Phone: Start: 01-21-2023 PTFUADULT4, Provider: [place]i [place], Status: Pen, Time: 9:00 AM PTFUADULT4, Provider: [place], Status: Pen, Time: 9:00 AM [facility] Work Phone: Start: 12-31-2022 PTRECHECKA, Provider: [place]i [place], Status: Pen, Time: 10:00 AM PTRECHECKA, Provider: [place], Status: Pen, Time: 10:00 AM [facility] Work Phone: Start: 12-24-2022 PTFUADULT4, Provider: [place], Status: Pen, Time: 11:30 AM PTFUADULT4, Provider: [place], Status: Pen, Time: 11:30 AM [facility] Work Phone: Start: 12-19-2022 PTFUADULT4, Provider: [place], Status: Pen, Time: 10:00 AM PTFUADULT4, Provider: [place], Status: Pen, Time: 10:00 AM [facility] [place] Work Phone: Start: 12-13-2022 Lipid panel Lipid Panel [facility] Start: 12-13-2022 Thyroid stimulating hormone measurement TSH Level [facility] Start: 12-03-2022 [email or web address], Provider: [place], Status: Pen, Time: 3:30 PM PTFUADULT4, Provider: [place], Status: Pen, Time: 3:30 PM [facility] [place] Work Phone: Start: 11-18-2022 Administration of herpes zoster vaccine Zoster Vaccines (2 of 2) [facility] Start: 08-01-2022 End: 08-01-2022 Patient encounter procedure 08/01/2022 Office Visit Neurology Mina Ortiz MD [address] [place] [address] [facility] Neurological Physicians Start: 06-19-2022 Screening for malignant neoplasm of breast Mammogram [facility] Start: 04-24-2022 End: 04-24-2022 Patient encounter procedure 04/24/2022 Appointment Radiology Mina Ortiz MD [address] [place] [address] [facility] Nuclear Medicine Start: 04-17-2022 Subsequent hospital visit by physician 04/17/2022 Hospital Encounter Radiology Mina Ortiz MD [address] [place] [address] [facility] Start: 03-15-2022 Hemoglobin A1c measurement [facility] Start: 02-07-2022 Influenza vaccination Sequential Influenza Vaccine (Season Ended) [facility] Start: 2020 Respiratory Syncytial Virus Immunization: Risk, 60-74 Risk, or 75+ (1 - Risk 60-74 years 1-dose series) Respiratory Syncytial Virus Immunization: Risk, 60-74 Risk, or 75+ (1 - Risk 60-74 years 1-dose series) [facility] Start: 2020 RSV High Risk: (Elderly (60+) or Population) (1 - Risk 60-74 years 1-dose series) RSV High Risk: (Elderly (60+) or Population) (1 - Risk 60-74 years 1-dose series) [facility] Start: 2020 RSV patients and/or patients aged 60+ years (1 - 1-dose 60+ series) RSV patients and/or patients aged 60+ years (1 - 1-dose 60+ series) [facility] Start: 05-03-2020 Pneumococcal vaccination Pneumococcal Vaccine (2 of 2 - PCV) [facility] Start: 05-03-2020 Pneumococcal Vaccine: Age 50+ (2 of 2 - PCV) Pneumococcal Vaccine: Age 50+ (2 of 2 - PCV) [facility] Start: 05-03-2020 Pneumococcal Vaccine: Ped or At-Risk (2 of 2 - PCV) Pneumococcal Vaccine: Ped or At-Risk (2 of 2 - PCV) [facility] Start: 05-03-2020 Pneumococcal Vaccine: Pediatrics (0 to 5 Years) and At-Risk Patients (6 to 64 Years) (2 - PCV) Pneumococcal Vaccine: Pediatrics (0 to 5 Years) and At-Risk Patients (6 to 64 Years) (2 - PCV) [facility] Start: 05-03-2020 Pneumococcal Vaccine: Pediatrics (0 to 5 Years) and At-Risk Patients (6 to 64 Years) (2 of 2 - PCV) Pneumococcal Vaccine: Pediatrics (0 to 5 Years) and At-Risk Patients (6 to 64 Years) (2 of 2 - PCV) [facility] Start: 05-18-2019 End: 05-18-2019 Office Visit 05/18/2019 Office Visit Sports Medicine Ti Rhodes MD [address] [place] [address] [phone] [facility] Orthopedic & Sports Medicine Physicians Start: 02-07-2019 Influenza vaccination given [facility] Start: 06-25-2018 Hemoglobin A1c measurement A1C [facility] Start: 03-25-2018 Hemoglobin A1c measurement A1C [facility] Start: 2010 Administration of herpes zoster vaccine Zoster Vaccines (1 of 2) [facility] Start: 2010 Screening for malignant neoplasm of colon [facility] Start: 2010 Zoster Vaccines (1 of 2) Zoster Vaccines (1 of 2) [facility] Start: 2000 Screening for malignant neoplasm of breast [facility]amm[facility] Start: 1990 Screening for malignant neoplasm of cervix [facility] Start: 1982 DTaP/Tdap/Td Vaccines (1 - Tdap) DTaP/Tdap/Td Vaccines (1 - Tdap) [facility] Start: 1981 Screening for malignant neoplasm of cervix [facility] Start: 08-31-1979 Urine screening for protein Diabetes: Urine Protein Screening [facility] Start: 1978 Hepatitis C screening Hepatitis C Screening [facility] Start: 08-31-1975 HIV screening HIV Screening [facility] Start: 1972 Depression screening using PHQ-9 (Patient Health Questionnaire 9) score [facility] Start: 1970 Diabetic foot examination [facility] Start: 1970 Glaucoma screening [facility] Start: 1970 Microalbumin measurement, urine, quantitative Urine Microalbumin [facility] Start: 1970 Ophthalmic examination and evaluation Ophthalmology Exam [facility] Start: 1970 Urine screening for protein [facility] Start: 1965 COVID-19 Vaccine (#1) COVID-19 Vaccine (#1) [facility] Start: 08-31-1963 History and physical examination, annual for health maintenance Wellness Visit [facility] Start: 08-31-1963 Medicare Wellness Visit Medicare Wellness Visit [facility] Start: 1961 MMR Vaccines (1 of 1 - Standard series) MMR Vaccines (1 of 1 - Standard series) [facility] Start: 03-02-1961 COVID-19 Vaccine (#1) COVID-19 Vaccine (#1) [facility] Start: 1960 Depression screening using PHQ-9 (Patient Health Questionnaire 9) score DEPRESSION SCREENING (PHQ9) [facility] Start: 1960 Hepatitis C antibody, confirmatory test HEPATITIS C SCREENING [facility] Start: 1960 HIV screening HIV Screening [facility] Start: 1960 Medicare Annual Wellness Visit Medicare Annual Wellness Visit (AWV) [facility] Start: 1960 Physical therapy management PT Plan of Care [facility] Start: 1960 Protein mass conc Mammogram [facility] Start: 1960 Screening for malignant neoplasm of cervix PAP SMEAR [facility] Start: 1960 Screening for malignant neoplasm of colon [facility] Start: 1960 Screening mammography Mammogram [facility] Start: 1960 Tetanus vaccination TETANUS EVERY 10 YR [facility] Start: 1960 Urine screening for protein Diabetes: Urine Protein Screening [facility] End: 04-16-2023 aPTT in Blood by Coagulation assay APTT Lab Routine NPH (normal pressure hydrocephalus) ([facility]) Abnormal coagulation profile 1 Occurrences starting 04/15/2022 until 04/16/2023 [facility] Comment on above: 1 Occurrences starting 04/15/2022 until 04/16/2023 aPTT in Blood by Coagulation assay APTT Lab Routine NPH (normal pressure hydrocephalus) ([facility]) Abnormal coagulation profile 04/15/2022 4:34 PM EST [facility] End: 04-15-2023 Cell count and differential, cerebrospinal fluid CSF Cell Count with Differential Lab Routine NPH (normal pressure hydrocephalus) ([facility]) 1 Occurrences starting 04/15/2022 until 04/15/2023 [facility] Work Phone: Comment on above: 1 Occurrences starting 04/15/2022 until 04/15/2023 End: 04-15-2023 CSF Bacterial/Viral Detection By PCR (Lumbar Puncture Only) CSF Bacterial/Viral Detection By PCR (Lumbar Puncture Only) Microbiology Routine NPH (normal pressure hydrocephalus) ([facility]LY [facility]) 1 Occurrences starting 04/15/2022 until 04/15/2023 [facility] Comment on above: 1 Occurrences starting 04/15/2022 until 04/15/2023 End: 04-15-2023 CSF VDRL CSF VDRL Lab Routine NPH (normal pressure hydrocephalus) ([facility]) 1 Occurrences starting 04/15/2022 until 04/15/2023 [facility] Comment on above: 1 Occurrences starting [...] (HCC) 1 Occurrences starting 04/15/2022 until 04/15/2023 [facility] Comment on above: 1 Occurrences starting 04/15/2022 until 04/15/2023 End: 09-21-2025 Hemoglobin A1c/Hemoglobin.total in Blood Hemoglobin A1c Lab Routine Type 2 diabetes mellitus without complication, without long-term current use of insulin (HCC) 1 Occurrences starting 09/21/2024 until 09/21/2025 [facility] Work Phone: Comment on above: 1 Occurrences starting 09/21/2024 until 09/21/2025 End: 04-16-2023 INR in Platelet poor plasma by Coagulation assay PT/INR Lab Routine NPH (normal pressure hydrocephalus) Abnormal coagulation profile 1 Occurrences starting 04/15/2022 until 04/16/2023 [facility] Work Phone: Comment on above: 1 Occurrences starting 04/15/2022 until 04/16/2023 INR in Platelet poor plasma by Coagulation assay PT/INR Lab Routine NPH (normal pressure hydrocephalus) (HCC) Abnormal coagulation profile 04/15/2022 4:34 PM EST [facility] End: 07-10-2023 MG Breast - bilateral Screening [facility] Work Phone: Comment on above: Once for 1 Occurrences starting 07/10/19 24 until 07/10/2023 End: 09-21-2025 Microalbumin measurement, urine, quantitative Microalbumin/Creatinine Ratio, UR Random Lab Routine Type 2 diabetes mellitus without complication, without long-term current use of insulin (HCC) 1 Occurrences starting 09/21/2024 until 09/21/2025 [facility] Comment on above: 1 Occurrences starting 09/21/2024 until 09/21/2025 End: 09-23-2025 MTB SCREEN MTB SCREEN Lab Routine At risk for tuberculosis 1 Occurrences starting 09/23/2024 until 09/23/2025 [facility] Work Phone: Comment on above: 1 Occurrences starting 09/23/2024 until 09/23/2025 End: 04-15-2023 Protein [Mass/volume] in Cerebral spinal fluid Protein, CSF Lab Routine NPH (normal pressure hydrocephalus) (HCC) 1 Occurrences starting 04/15/2022 until 04/15/2023 [facility] Comment on above: 1 Occurrences starting 04/15/2022 until 04/15/2023 End: 09-09-2025 RF Upper gastrointestinal tract and Small bowel Views W barium contrast PO XR Upper GI With Small Bowel Follow Through Imaging Routine Abnormal CT of the abdomen 1 Occurrences starting 09/09/2024 until 09/09/2025 [facility] Work Phone: Comment on above: 1 Occurrences starting 09/09/2024 until 09/09/2025 End: 02-02-2025 XR Wrist - left 2 Views XR Wrist Left 2 Views Imaging Routine Pain 1 Occurrences starting 02/03/2024 until 02/02/2025 [facility] Work Phone: Comment on above: 1 Occurrences starting 02/03/2024 until 02/02/2025 XR Wrist - left 2 Views XR Wrist Left 2 Views Imaging Routine Pain 02/03/2024 11:12 AM EDT [facility] End: 12-17-2024 XR Wrist - right 2 Views XR Wrist Right 2 Views Imaging Routine Pain 1 Occurrences starting 12/18/2023 until 12/17/2024 [facility] Work Phone: Comment on above: 1 Occurrences starting 12/18/2023 until 12/17/2024 End: 02-02-2025 XR Wrist - right 2 Views XR Wrist Right 2 Views Imaging Routine Pain 1 Occurrences starting 02/03/2024 until 02/02/2025 [facility] Work Phone: Comment on above: 1 Occurrences starting 02/03/2024 until 02/02/2025 Immunizations Immunization Date Immunization Notes Care Provider Fa magoty 07-14-2024 tetanus toxoid, redu amaya diphtheria toxoid, and acellular pertussis vaccine, adsorbed Zara Cristina DO Work Phone: [facility] 03-30-2024 influenza virus vaccine, unspecified formulation Zara Cristina DO Work Phone: [facility] 07-19-2023 tetanus toxoid, redu amaya diphtheria toxoid, and acellular pertussis vaccine, adsorbed Jasmyn Wade DO Work Phone: [facility] 03-26-2023 influenza, injectabl e, quadrivalent, preservative free Rafa Oberhauser DO Work Phone: [facility] Work Phone: 03-26-2023 influenza virus vaccine, unspecified formulation Huy Vasquez PA-C Work Phone: [facility] 02-14-2023 zoster vaccine recombinant Rafa Oberhauser DO Work Phone: [facility] Work Phone: 09-23-2022 zoster vaccine recombinant Rafa Oberhauser DO Work Phone: [facility] Work Phone: 08-09-2022 tetanus toxoid, redu amaya diphtheria toxoid, and acellular pertussis vaccine, adsorbed Antwan Weberkourtneycory Other Phone: [facility] 04-11-2022 Moderna COVID-19 vaccine, bivalent, blue cap/laguna label *Check age/dose* Rafa Oberhauser DO Work Phone: [facility] Work Phone: 03-28-2022 Influenza, injectabl e, Madin Lizy Canine Kidney, preservative free, quadrivalent Rafa Oberhauser DO Work Phone: [facility] Work Phone: 03-21-2021 influenza, injectabl e, quadrivalent, preservative free Rafa Oberhauser DO Work Phone: [facility] Work Phone: 03-24-2020 influenza, injectabl e, quadrivalent, preservative free Rafa Oberhauser DO Work Phone: [facility] Work Phone: 05-03-2019 pneumococcal polysaccharide vaccine, 23 valent Rafa Oberhauser DO Work Phone: [facility] Work Phone: 03-24-2019 influenza, injectabl e, quadrivalent, preservative free Rafa Oberhauser DO Work Phone: [facility] Work Phone: 11-17-2018 tetanus toxoid, redu amaya diphtheria toxoid, and acellular pertussis vaccine, adsorbed Rafa Oberhauser DO Work Phone: [facility] Work Phone: 04-15-2018 influenza, injectabl e, quadrivalent, preservative free Rafa Oberhauser DO Work Phone: [facility] Work Phone: 04-25-2016 influenza, injectabl e, quadrivalent, contains preservative Rafa Oberhauser DO Work Phone: [facility] Work Phone: Payers Date Payer Category Payer Medicare (Managed Care) [facility] [id number] 2023 Unknown [id number] 2017 Medicaid MEDICAID [facility] xxxxxxxxxxxx 2017-Present xxxxxxxxxxxx [id number] 2017 Medicaid [id number]. [id number] 2017 Medicaid [id number] 2000 Medicare MEDICARE MEDICAR E PART A & B xxxxxxxxxxx 2000-Present [place] xxxxxxxxxxx [id number] 2000 Medicare [id number]. 1.13.385.2. [id number] 2000 Medicare [id number] 1960 Unknown [id number] 2.16.840.1.112651.3.579.2. 902 1960 Unknown [id number] 2.16.840.1.602342.3.579.2. 1068 1960 Unknown [id number] 2.16.840.1.032696.3.579.2. 1068 1960 Unknown [id number] 2.16.840.1.457849.3.579.2. 1068 1960 Unknown [id number] 2.16.840.1.619080.3.579.2. 1068 1960 Unknown [id number] 2.16.840.1.238781.3.579.2. 9 1960 Unknown [id number] 2.16.840.1.725653.3.579.2. 1068 1960 Unknown [id number] 2.16.840.1.331328.3.579.2. 106 1960 Unknown [id number] 2.16.840.1.156754.3.579.2. 1068 1960 Unknown [id number] 2.16.840.1.437358.3.579.2. 1068 1960 Unknown [id number] 2.16.840.1.121707.3.579.2. 1068 1960 Unknown [id number] 2.16.840.1.499802.3.579.2. 1069 1960 Unknown [id number] 2.16.840.1.599455.3.579.2. 9 1960 Unknown [id number] 2.16.840.1.741486.3.579.2. 9 1960 Unknown [id number] 2.16.840.1.898173.3.579.2. 1068 1960 Unknown [id number] 2.16.840.1.363030.3.579.2. 902 1960 Unknown [id number] 2.16.840.1.976822.3.579.2. 4 1960 Unknown [id number] 2.16.840.1.289711.3.579.2. 1243 1960 Unknown [id number] 2.16.840.1.638449.3.579.2. 1243 1960 Unknown [id number] 2.16.840.1.156731.3.579.2. 1243 1960 Unknown [id number] 2.16.840.1.870124.3.579.2. 4 1960 Unknown [id number] 2.16.840.1.391435.3.579.2. 1244 1960 Unknown [id number] 2.16.840.1.398046.3.579.2. 1244 1960 Unknown [id number] 2.16.840.1.551423.3.579.2. 1244 1960 Unknown [id number] 2.16.840.1.945446.3.579.2. 1242 1960 Unknown [id number] 2.16.840.1.168615.3.579.2. 1242 1960 Unknown [id number] 2.16.840.1.682084.3.579.2. 3 1960 Unknown [id number] 2.16.840.1.925903.3.579.2. 1242 1960 Unknown [id number] 2.16.840.1.060913.3.579.2. 1242 1960 Unknown [id number] 2.16.840.1.217802.3.579.2. 1242 1960 Unknown [id number] 2.16.840.1.772271.3.579.2. 1242 1960 Unknown [id number] 2.16.840.1.400592.3.579.2. 1242 1960 Unknown [id number] 2.16.840.1.277930.3.579.2. 1242 1960 Unknown [id number] 2.16.840.1.480426.3.579.2. 1242 1960 Unknown [id number] 2.16.840.1.275175.3.579.2. 1242 1960 Unknown [id number] 2.16.840.1.417688.3.579.2. 1242 1960 Unknown [id number] 2.16.840.1.052336.3.579.2. 1242 1960 Unknown [id number] 2.16.840.1.748623.3.579.2. 1242 1960 Unknown [id number] 2.16.840.1.245096.3.579.2. 1242 1960 Unknown [id number] 2.16.840.1.776345.3.579.2. 1242 1960 Unknown [id number] 2.16.840.1.256504.3.579.2. 1242 1960 Unknown [id number] 2.16.840.1.363836.3.579.2. 1242 1960 Unknown [id number] 2.16.840.1.736628.3.579.2. 1242 1960 Unknown [id number] 2.16.840.1.837302.3.579.2. 1242 1960 Unknown [id number] 2.16.840.1.059867.3.579.2. 1242 1960 Unknown [id number] 2.16.840.1.397293.3.579.2. 1242 1960 Unknown [id number] 2.16.840.1.630274.3.579.2. 1242 1960 Unknown [id number] 2.16.840.1.860610.3.579.2. 1242 1960 Unknown [id number] 2.16.840.1.073853.3.579.2. 1242 1960 Unknown [id number] 2.16.840.1.933770.3.579.2. 1242 1960 Unknown [id number] 2.16.840.1.693021.3.579.2. 1242 1960 Unknown [id number] 2.16.840.1.536544.3.579.2. 1242 1960 Unknown [id number] 2.16840.1.069952.3.579.2. 1242 1960 Unknown [id number] 2.16.840.1.517855.3.579.2. 1242 1960 Unknown [id number] 2.16.840.1.072663.3.579.2. 1242 1960 Unknown [id number] 2.16.840.1.585836.3.579.2. 1242 1960 Unknown [id number] 2.16.840.1.552272.3.579.2. 1242 1960 Unknown [id number] 2.16.840.1.597935.3.579.2. 1243 1960 Unknown [id number] 2.16.840.1.021985.3.579.2. 1242 1960 Unknown [id number] 2.16.840.1.724600.3.579.2. 1243 1960 Unknown [id number] 2.16.840.1.662097.3.579.2. 124 1960 Unknown [id number] 2.16.840.1.743424.3.579.2. 1960 Unknown [id number] 2.16.840.1.068465.3.579.2. 1960 Unknown [id number] 2.16.840.1.453750.3.579.2. 1960 Unknown [id number] 2.16.840.1.716037.3.579.2. 1960 Unknown [id number] 2.16.840.1.959600.3.579.2. 1960 Unknown [id number] 2.16.840.1.105992.3.579.2. 1960 Unknown [id number] 2.16.840.1.788322.3.579.2. 1960 Unknown [id number] 2.16.840.1.400655.3.579.2. 1960 Unknown [id number] 2.16.840.1.705051.3.579.2. 1960 Unknown [id number] 2.16.840.1.125470.3.579.2. 1960 Unknown [id number] 2.16.840.1.477537.3.579.2. 90 1960 Unknown [id number] 2.16.840.1.317937.3.579.2. 903 1960 Unknown [id number] 2.16.840.1.901423.3.579.2. 1960 Unknown [id number] 2.16.840.1.987662.3.579.2. 1960 Unknown [id number] 2.16.840.1.344815.3.579.2. 1960 Unknown [id number] 2.16.840.1.588576.3.579.2. 1960 Unknown [id number] 2.16840.1.061352.3.579.2. 1960 Unknown [id number] 2.840.1.819513.3.579.2. 1960 Unknown [id number] 2.840.1.788521.3.579.2 1960 Unknown [id number] 2.16840.1.310414.3.579.2. 1960 Unknown [id number] 2.16840.1.460135.3.579.2 1960 Unknown [id number] 2.16840.1.380928.3.579.2. 1960 Unknown [id number] 2.16840.1.617746.3.579.2. 1960 Unknown [id number] 2.16.840.1.697066.3.579.2. 1960 Unknown [id number] 2.16.840.1.177062.3.579.2 1960 Unknown [id number] 2.16840.1.481800.3.579.2 1960 Unknown [id number] 2.16840.1.589005.3.579.2. 903 1960 Unknown [id number] 2.16.840.1.931326.3.579.2. 903 1960 Unknown [id number] 2.16.840.1.068302.3.579.2. 903 1960 Unknown [id number] 2.16.840.1.836115.3.579.2. 903 1960 Unknown [id number] 2.16.840.1.748781.3.579.2. 903 1960 Unknown [id number] 2.16.840.1.826289.3.579.2. 90 1960 Unknown [id number] 2.16.840.1.778914.3.579.2. 903 1960 Unknown [id number] 2.16.840.1.340085.3.579.2. 903 1960 Unknown [id number] 2.16.840.1.049914.3.579.2. 903 Medicare [id number] Unknown Social History Date Type Detail Facility Start: 04-10-2017 Tobacco smoking status [facility] Unknown if ever smoked [facility] Work Phone: Start: 1960 Sex Assigned At Not on file [facility] Work Phone: Start: 04-27-2019 End: 03-28-2022 Tobacco smoking status NHIS Never smoker [facility] Start: 04-27-2019 End: 09-21-2024 Alcohol intake Ex-drinker (finding) [facility] Start: 04-27-2019 End: 07-19-2024 Cigarette pack-years [facility] Work Phone: Start: 04-27-2019 End: 03-28-2022 Tobacco use and exposure Smokeless tobacco non-user [facility] Start: 03-18-2022 End: 07-09-2024 Exposure to SARS-CoV-2 (event) Not sure [facility] Start: 08-01-2022 End: 07-19-2024 Tobacco use panel [facility] Work Phone: Start: 11-03-2018 Gender identity Identifies as female gender (finding) [facility] Start: 04-21-2023 End: 07-09-2024 Alcohol intake Lifetime non-drinker (finding) [facility] Work Phone: Start: 06-23-2024 Sexual orientation Heterosexual (finding) [facility] Has the electric, ga s, oil, or water company threatened to shut off services in your home in past 12Mo Patient unable to answer [facility] Has the electric, ga s, oil, or water company threatened to shut off services in your home in past 12Mo No [facility] (I/We) worried wheth er (my/our) food would run out before (I/we) got money to buy more. Never true [facility] Clinical Notes 08-01-2022 to 12-06-2024 Telephone Encounter - Lupe Ochoa LPN - 12/06/2024 3:02 PM EDTTelephone Encounter - Lupe Ochoa LPN - 12/06/2024 3:02 PM Marcos Singh MD - 11/11/2024 11:03 AM EDTAttachments Note Date & Type Note Facility 12-06-2024 Telephone encounter Note Pt home calling for this med, previous pcp rx. Can you please send [facility] 12-06-2024 Miscellaneous Notes Pt home calling for this med, previous pcp rx. Can you please send documented in this encounter [facility] 11-11-2024 Note Shaji Esquivel 64 y.o. [...] second test should be considered NIL 10/08/2024 0.17333 IU/mL Final Mitogen Minus Nil 10/08/2024 2.26249 IU/mL Final TB1 Minus Nil 10/08/2024 -0.51783 0.00 - 0.34 IU/mL Final TB2 Minus Nil 10/08/2024 0.49556 0.00 - 0.34 IU/mL Final Interferon gamma [...] Unable To Ans (more content not included)... [facility] 11-11-2024 History of Present illness Narrative [...] second test should be considered NIL 10/08/2024 0.45039 IU/mL Final Mitogen Minus Nil 10/08/2024 2.33598 IU/mL Final TB1 Minus Nil 10/08/2024 -0.80773 0.00 - 0.34 IU/mL Final TB2 Minus Nil 10/08/2024 0.23485 0.00 - 0.34 IU/mL Final Interferon gamma [...] answer Stress: Patient Unable To Answer (07/13/2024) [employer] - Occupational Stress Questionnaire Feeling of Stress : Patient unable to answer Social Connections: Patient Unable To Answer (07/13/2024) Social Connection and Isolation Panel [NHANES] Frequency of Communication with Friends and Family: Patient unable to answer Frequency of Social Gatherings with Friends and Family: Patient unable to answer Attends Spiritism Services: Patient unable to answer Active Member [...] AND ALLOW TO DISSOLVE AT BEDTIME . xgroshrp-oxg-nhxfbic fumarate 15 mg iron Tab Take 1 [...] for this visit. documented in this encounter [facility] 10-25-2024 Note Ameena Ruiz PM Patient [...] answer Stress: Patient Unable To Answer (07/13/2024) [employer] - Occupational Stress Questionnaire Feeling of Stress : Patient unable to answer Social Connections: Patient Unable To Answer (07/13/2024) Social Connection and Isolation Panel [NHANES] Frequency of Communication with Friends and Family: Patient unable to answer Frequency of Social Gatherings with Friends and Family: Patient unable to answer Attends Spiritism Services: Patient unable to answer Active Member [...] intact. Protective sensation is diminished using the Wacissa Piotr monofilament. Dermatologic: The right great toenail [...] AUTHENTICATED BY ELIZABETH KIMBLE, ON 10/25/2024 11:10:27 [facility] 10-25-2024 History of Present illness Narrative [...] answer Stress: Patient Unable To Answer (07/13/2024) [employer] - Occupational Stress Questionnaire Feeling of Stress : Patient unable to answer Social Connections: Patient Unable To Answer (07/13/2024) Social Connection and Isolation Panel [NHANES] Frequency of Communication with Friends and Family: Patient unable to answer Frequency of Social Gatherings with Friends and Family: Patient unable to answer Attends Spiritism Services: Patient unable to answer Active Member [...] intact. Protective sensation is diminished using the Wacissa Piotr monofilament. Dermatologic: The right great toenail [...] Physician & Surgeon documented in this encounter [facility] 10-12-2024 History of Present illness Narrative MEDICATION RECONCILIATION COMPLETED USING REM MED SHEETS. MED SHEETS TITLED ACTIVE ORDERS OF 10/01/2024. MEDICATIONS NOT LISTED ON REM LIST MARKED FOR REVIEW. documented in this encounter [facility] 10-11-2024 History of Present illness Narrative Spoke to Camelia, review results. Faxed results to [phone]. documented in this encounter [facility] 09-21-2024 Evaluation + Plan note Associated Problem(s): Abnormal CT of the abdomen Incidental finding edematous appearance of duodenum infusional loop in upper abdomen probably nonspecific. She has met with Dr. Jones who ordered GI series with small bowel follow-through, deferred EGD for now. [facility] 09-21-2024 Miscellaneous Notes Associated Problem(s): Abnormal [...] Parkinson's disease increases fall risk. Lives in detention. Staff tries to have aide assist with walking all the time; patient sometimes up without alerting staff. Difficult to account auditor and steer walker due to hand/wrist contractions. [...] and urine microalbumin documented in this encounter [facility] 09-21-2024 Evaluation + Plan note Associated Problem(s): Recurrent falls Multiple falls recently may have been due to E. coli UTI, treated with Keflex, completed today. Concern for interaction between Sinemet and olanzapine. She has followed up with psychiatry and they have stopped olanzapine. Shuffling gait with Parkinson's disease increases fall risk. Lives in detention. Staff tries to have aide assist with walking all the time; patient sometimes up without alerting staff. Difficult to account auditor and steer walker due to hand/wrist contractions. - She has just completed physical therapy and is walking better - Wear closed footwear with non-slip bottom - No area rugs - Keep cords clear of walkways - Walk with staff assistance only [facility] 09-21-2024 Evaluation + Plan note Associated [...] - check updated A1c and urine microalbumin [facility] 09-21-2024 History of Present illness Narrative [...] Parkinson's disease increases fall risk. Lives in detention. Staff tries to have aide assist with walking all the time; patient sometimes up without alerting staff. Difficult to account auditor and steer walker due to hand/wrist contractions. [...] follow-up chronic conditions. She is accompanied by detention staff. Shaji is in good spirits today. [...] for now. Recurrent falls Completed PT 09/08/24. prison staff reports she is walking better. Denies [...] Zara Evans DO documented in this encounter [facility] 09-21-2024 Note Assessment/Plan: Type 2 diabetes [...] Parkinson's disease increases fall risk. Lives in detention. Staff tries to have aide assist with walking all the time; patient sometimes up without alerting staff. Difficult to account auditor and steer walker due to hand/wrist contractions. [...] follow-up chronic conditions. She is accompanied by detention staff. Shaji is in good spirits today. [...] for now. Recurrent falls Completed PT 09/08/24. prison staff reports she is walking better. Denies [...] AUTHENTICATED BY ZARA EVANS, ON 09/21/2024 12:39:07 [facility] 09-15-2024 Telephone encounter Note LAST OV 07/29/24. NEXT OV 09/21/24. [facility] 09-15-2024 Miscellaneous Notes LAST OV 07/29/24. NEXT OV 09/21/24. documented in this encounter [facility] 09-09-2024 Note Shaji Esquivel 64 y.o. [...] Urine 07/19/2024 Cloudy (A) Clear Final Specific [place] 07/19/2024 1.028 (H) 1.005 - 1.025 Final [...] /hpf Final Mucus, (more content not included)... [facility] 09-09-2024 History of Present illness Narrative [...] Urine 07/19/2024 Cloudy (A) Clear Final Specific [place] 07/19/2024 1.028 (H) 1.005 - 1.025 Final [...] answer Stress: Patient Unable To Answer (07/13/2024) [employer] [place] [employer] - Occupational Stress Questionnaire Feeling of Stress : Patient unable to answer Social Connections: Patient Unable To Answer (07/13/2024) Social Connection and Isolation Panel [NHANES] Frequency of Communication with Friends and Family: Patient unable to answer Frequency of Social Gatherings with Friends and Family: Patient unable to answer Attends Spiritism Services: Patient unable to answer Active Member [...] total) on top of tongue nightly . qymgpibn-slv-sitrpiu fumarate 15 mg iron Tab Take 1 [...] for this visit. documented in this encounter [facility] 09-08-2024 History of Present illness Narrative Images from the original note were not included. [facility] OUTPATIENT [facility]IL[facility]ATION DAILY TREATMENT NOTE/DISCHARGE Today's [...] Shaji mentioned that she had a birthday constitution party this past weekend. Otherwise, nothing new to report or updates to provide. Objective Treatments: Physical Therapy Exercise Log - 09/08/24 1011 OTHER Precautions/Contraindications Parkinson's disease, unspecified whether dyskinesia present, unspecified whether manifestations fluctuate (HCC). Frequent Falls. Notes Visit 8: 10:15-11:00 Vitals Eval Date: 08/02/2024. POC: 2x4 Therapeutic Exercise (08359) Intervention Access Code: [email or web address] URL: [email or web address] Date: 08/27/2024 Prepared by: Melissa Sena Exercises [...] and visual cues for completion. Neuro Re-Ed (25436) Intervention Discharge Summary/Goal Reassessment x45 mins Parameters [...] seated position throughout the day. Functional Activity (67900) Intervention Repeated STSs from chair with unilateral [...] Exercises Add more exercises? Yes Gait Training (59860) Intervention Pt ambulating for short distances (approx [...] will complete the 5 times sit to instrument person 24 seconds or less without the use [...] as needed. Julianne Buck, PT State License, [id number] Cosigned by Shelley Maldonado PA-C at 09/14/2024 11:41 AM EDT documented in this encounter [facility] 09-06-2024 History of Present illness Narrative Documentation received for pt. Provider reviewed and signed. Faxed back to number provided and sent to [facility] to scan to pt chart. documented in this encounter [facility] 09-02-2024 History of Present illness Narrative Images from the original note were not included. [facility] DAILY TREATMENT NOTE Today's [...] Eval Date: 08/02/2024. POC: 2x4 Therapeutic Exercise (19163) Intervention Access Code: [email or web address] URL: [email or web address] Date: 08/27/2024 Prepared by: Melissa Sena Exercises [...] cues for completion Intervention -- Neuro Re-Ed (71036) Intervention Fwd ambulation over hockey sticks inside parallel bars for 2 laps to facilitate improved step length and foot clearance as well as improved dynamic balance with decreased UE support. Pt completing first lap with BUE support with progression to no UE support on second trial with pt demo'g improved ability to complete without UE support. Functional Activity (85600) Intervention Pt completing transfers this date with CGA-Danielle. Parameters Pt demos decreased activity tolerance with all activities requiring several seated rest breaks. Additional Exercises Add more exercises? Yes Gait Training (68755) Intervention Pt ambulating short distances throughout therapy [...] will complete the 5 times sit to instrument person 24 seconds or less without the use [...] at home. Serenity Gandhi PTA State License, [id number] Cosigned by Kody Hall PT at 09/02/2024 2:52 PM EDT documented in this encounter [facility] 08-13-2024 History of Present illness Narrative [facility] Occupational Therapy Screen Today's [...] Caregiver and nurse who work at the [facility] [employer]. History of Present Illness Date of Onset: [...] Parkinson's Disease, and subarachnoid hemorrhage, presented to [facility] ED from detention assisted living facility for evaluation of multiple falls that been progressively worsening over the past 2 weeks. No specific alleviating or aggravating factors. At the time of admission, per packing room worker, patient fell from chair hit back of [...] prevent aspiration which was determined by a BUSINESS CONTROL MANAGER she used to see in the past, [...] above number. Soto Daly OTR/L STATE LICENSE, [id number] documented in this encounter [facility] 08-04-2024 Evaluation + Plan note Associated Problem(s): Recurrent falls Multiple falls recently may have been due to E. coli UTI, treated with Keflex, completed today. Concern for interaction between Sinemet and olanzapine. She has followed up with psychiatry and reduced olanzapine dose to 5 mg. Shuffling gait with Parkinson's disease increases fall risk. Lives in detention. Staff tries to have aide assist with walking all the time; patient sometimes up without alerting staff. Difficult to account auditor and steer walker due to hand/wrist contractions. - She is beginning physical therapy - Wear closed footwear with non-slip bottom - No area rugs - Keep cords clear of walkways - Walk with staff assistance only [facility] 08-04-2024 Miscellaneous Notes Associated Problem(s): Recurrent falls Multiple falls recently may have been due to E. coli UTI, treated with Keflex, completed today. Concern for interaction between Sinemet and olanzapine. She has followed up with psychiatry and reduced olanzapine dose to 5 mg. Shuffling gait with Parkinson's disease increases fall risk. Lives in detention. Staff tries to have aide assist with walking all the time; patient sometimes up without alerting staff. Difficult to account auditor and steer walker due to hand/wrist contractions. - She is beginning physical therapy - Wear closed footwear with non-slip bottom - No area rugs - Keep cords clear of walkways - Walk with staff assistance only documented in this encounter [facility] 08-02-2024 History of Present illness Narrative Images from the original note were not included. [facility] Physical Therapy Evaluation Today's [...] Caregiver and nurse who work at the detention ALF. History of Present Illness Subjective History: The patient, Shaji, is a 63 y.o. Female presenting to outpatient neurological physical therapy at [facility] on 08/02/2024 s/p a recent 4 day hospital stay for a fall that resulted in hitting the back of her head on a chair. Per the patient's ED note from 07/19, Shaji has a past medical history of hypertension, hyperlipidemia, diabetes, Parkinson's Disease, and subarachnoid hemorrhage, presents to the emergency department from detention assisted living facility for evaluation of multiple falls that been progressively worsening over the past 2 weeks. No specific alleviating or aggravating factors. Today, per packing room worker, patient fell from chair hit back of [...] prevent aspiration which was determined by a BUSINESS CONTROL MANAGER she used to see in the past, [...] Social Support: Additional Social Support: Caregivers (RN). Spiritism, social, or cultural considerations to be made aware of before starting treatment: No Home Environment Current Home Environment: Setup: single story house (prison) Entry: no steps First floor: bedroom and [...] fall in the last 12 months: Yes Spiritism, social, or cultural considerations to be made [...] Transfers: Sit to stand: Insufficient forward flexion, [place] on UE, Increased energy expenditure and Min A Stand to sit: Min A, [place] on UE, Insufficient forward flexion, Decreased eccentric control and Increased energy expenditure Stand/squat pivot: Insufficient forward flexion, [place] on UE and Increased energy expenditure Sitting [...] Treatments: Physical Therapy Exercise Log - 08/03/24 0580 OTHER Precautions/Contraindications Parkinson's disease, unspecified whether dyskinesia present, unspecified whether manifestations fluctuate (HCC). Frequent Falls. Notes Visit 1: 12:30-1:15 Vitals Eval Date: 08/02/2024. POC: 2x4 Neuro Re-Ed (36404) Intervention Initial evaluation w/ education only x45 mins PT Treatment Times Neuro Re-Ed Total Time 45 12:30-1:15 Direct Treatment Time 45 Total Treatment Time 45 Treatment Plan: Frequency of Visits: twice per week Duration: 4 weeks Interventions: Therapeutic Exercise (14024), Neuromuscular Re-Education (85725), Manual Therapy (62018), Therapeutic/ Functional Activities (68169), Gait Training (35731), Self Care (45771), and Canalith Repositioning Treatment (49400) Rehab Potential: good Physical Therapy Neuro Goals: [...] will complete the 5 times sit to instrument person 24 seconds or less without the use [...] at this time were answered. CPT Code 40460 Low 12886 Moderate 95724 High History 0 1-2 3+ Comorbidities: anxiety, [...] Clinical Impression: . Shaji Esquivel presents to [facility] outpatient neurological rehab services s/p experiencing [...] to 09/28/2024. Julianne Buck, TAYLER State License, [id number] documented in this encounter [facility] 07-29-2024 History of Present illness Narrative Assessment/Plan: Recurrent falls Multiple falls recently may have been due to E. coli UTI, treated with Keflex, completed today. Concern for interaction between Sinemet and olanzapine. She has followed up with psychiatry and reduced olanzapine dose to 5 mg. Shuffling gait with Parkinson's disease increases fall risk. Lives in detention. Staff tries to have aide assist with walking all the time; patient sometimes up without alerting staff. Difficult to account auditor and steer walker due to hand/wrist contractions. [...] Zara Evans DO documented in this encounter [facility] 07-29-2024 Note Assessment/Plan: Recurrent falls Multiple falls recently may have been due to E. coli UTI, treated with Keflex, completed today. Concern for interaction between Sinemet and olanzapine. She has followed up with psychiatry and reduced olanzapine dose to 5 mg. Shuffling gait with Parkinson's disease increases fall risk. Lives in detention. Staff tries to have aide assist with walking all the time; patient sometimes up without alerting staff. Difficult to account auditor and steer walker due to hand/wrist contractions. [...] AUTHENTICATED BY ZARA EVANS, ON 08/04/2024 02:35:57 [facility] 07-27-2024 Note Ameena Ruiz PM Patient [...] answer Stress: Patient Unable To Answer (07/13/2024) [place] [employer] - Occupational Stress Questionnaire Feeling of Stress : Patient unable to answer Social Connections: Patient Unable To Answer (07/13/2024) Social Connection and Isolation Panel [NHANES] Frequency of Communication with Friends and Family: Patient unable to answer Frequency of Social Gatherings with Friends and Family: Patient unable to answer Attends Spiritism Services: Patient unable to answer Active Member [...] intact. Protective sensation is diminished using the [place] Piotr monofilament. Dermatologic: The right great toenail [...] Kimble, BHUMI, MS (more content not included)... [facility] 07-27-2024 History of Present illness Narrative [...] answer Stress: Patient Unable To Answer (07/13/2024) [place] [employer] - Occupational Stress Questionnaire Feeling of Stress : Patient unable to answer Social Connections: Patient Unable To Answer (07/13/2024) Social Connection and Isolation Panel [NHANES] Frequency of Communication with Friends and Family: Patient unable to answer Frequency of Social Gatherings with Friends and Family: Patient unable to answer Attends Spiritism Services: Patient unable to answer Active Member [...] intact. Protective sensation is diminished using the [place] Piotr monofilament. Dermatologic: The right great toenail [...] Physician & Surgeon documented in this encounter [facility] 07-23-2024 Note HMS DISCHARGE SUMMAR Y Shaji Esquivel Admitted: 07/19/2024 Discharge Date: 07/25/24 PCP Handoff Recommended Outpatient Testing Follow-up with GI Follow up with psychiatry Results Pending At Discharge None Clinical Summary Shaji Esquivel is a 63 y.o. female patient of Zara Evans DO with history of Parkinson's disease, schizophrenia, HTN, HLD, GERD, NIDDM2, who presented to [facility] on 07/19/2024 with frequent falls. Frequent Fall [...] Remeron Reached out to Dr. Sabillon at [facility] due to interaction with Sinemet and Zyprexa [...] specific GI complaints Outpatient GI evaluation Continue CUSTOM BIKE BUILDER bowel regimen Sternal Fracture CT with evidence [...] disintegrating tablet Com (more content not included)... [facility] 07-23-[address] [facility] PROGRESS NOTE Assessment and Plan Shaji Esquivel is a 63 y.o. female patient of Zara Evans DO with history of Parkinson's disease, schizophrenia, HTN, HLD, GERD, NIDDM2, who presented to [facility] on 07/19/2024 with frequent falls. Frequent Fall [...] Remeron Reached out to Dr. Sabillon at [facility] due to interaction with Sinemet and Zyprexa [...] hospitalization due to: awaiting acceptance back to detention Discharge location: return to detention Quality Measures DVT prophylaxis: IPCs Contreras catheter: [...] AUTHENTICATED BY SHELLEY MALDONADO, ON 07/23/2024 11:54:59 [facility] 07-22-[address] [facility] PROGRESS NOTE Assessment and Plan Shaji Esquivel is a 63 y.o. female patient of Zara Evans DO with history of Parkinson's disease, schizophrenia, HTN, HLD, GERD, NIDDM2, who presented to [facility] on 07/19/2024 with frequent falls. Frequent Fall [...] Remeliudn Reached out to Dr. Sabillon at [facility] due to interaction with Sinemet and Zyprexa [...] AUTHENTICATED BY SHELLEY MALDONADO, ON 07/22/2024 12:51:24 [facility] 07-21-[address] [facility] PROGRESS NOTE Assessment and Plan Shaji Esquivel is a 63 y.o. female patient of Zara Evans DO with history of Parkinson's disease, schizophrenia, HTN, HLD, GERD, NIDDM2, who presented to [facility] on 07/19/2024 with frequent falls. Frequent Fall Parkinson's Disease Balance Disorder Continue Sinemet. Sinemet has known interaction with Zyprexa, which may worsen PD symptoms. Psychiatrist plans to switch her to Nuplazid as outpatient. See below. Fall precautions PT/OT Care management Follows with Dr. Ortiz for neurology Schizophrenia Continue Zyprexa and Remeron Reached out to Dr. Sabillon at [facility] due to interaction with Sinemet and Zyprexa [...] therapy evals Discharge location: likely return to detention Quality Measures DVT prophylaxis: IPCs Contreras catheter: [...] AUTHENTICATED BY SHELLEY MALDONADO, ON 07/21/2024 11:29:18 [facility] 07-20-2024 Note HMS PROGRESS NOTE Assessment and Plan Shaji Esquivel is a 63 y.o. female patient of Zara Evans DO with history of Parkinson's disease, schizophrenia, HTN, HLD, GERD, NIDDM2, who presented to [facility] on 07/19/2024 with frequent falls. Frequent Fall Parkinson's Disease Balance Disorder Continue Sinemet. Sinemet has known interaction with Zyprexa, which may worsen PD symptoms. Psychiatrist plans to switch her to Nuplazid as outpatient. See below. Fall precautions PT/OT Care management Follows with Dr. Ortiz for neurology Schizophrenia Continue Zyprexa and Remeron Reached out to Dr. Sabillon at [facility] due to interaction with Sinemet and Zyprexa [...] therapy evals Discharge location: likely return to detention Quality Measures DVT prophylaxis: IPCs Contreras catheter: [...] AUTHENTICATED BY SHELLEY MALDONADO, ON 07/20/2024 11:24:59 [facility] 07-19-2024 Note HMS HISTORY AND PHYS ICAL -- [facility] Patient Name: Shaji Esquivel : 1960 MR #: [id number] Admit Date: 07/19/2024 Physicians: Zara Evans DO (Family); No ref. provider found (Referring) Shaji Esquivel is a 63 y.o. female patient of Zara Evans DO with history of Parkinson's disease, schizophrenia, HTN, HLD, GERD, NIDDM2, who presented to [facility] on 07/19/2024 with frequent falls. Frequent Fall Parkinson's Disease Balance Disorder Continue Sinemet. Sinemet has known interaction with Zyprexa, which may worsen PD symptoms. Psychiatrist plans to switch her to Nuplazid as outpatient. See below. Fall precautions PT/OT Care management Follows with Dr. Ortiz for neurology Schizophrenia Continue Zyprexa and Remeron Reached out to Dr. Sabillon at [facility] due to interaction with Sinemet and Zyprexa [...] HTN, HLD, GERD, NIDDM2, who presented to [facility] on 07/19/2024 with frequent falls. Progressively worsening [...] AUTHENTICATED BY KIRILL CRANDALL ON 07/19/2024 10:34:59 [facility] 07-15-2024 Evaluation + Plan note Associated Problem(s): Primary osteoarthritis involving multiple joints Voltaren gel 4 times daily to painful joints including bilateral hips and knees. [facility] 07-15-2024 Miscellaneous Notes Associated Problem(s): Primary [...] Parkinson's disease increases fall risk. Lives in detention. Staff tries to have aide assist with walking all the time; patient sometimes up without alerting staff. Difficult to account auditor and steer walker due to hand/wrist contractions. - Wear closed footwear with non-slip bottom - No area rugs - Keep cords clear of walkways - Walk with staff assistance documented in this encounter [facility] 07-15-2024 Evaluation + Plan note Associated Problem(s): Recurrent falls Mechanical fall 07/09/2024 when stepping up into a van. She suffered contusions to her right hip and right knee, but no fractures per x-rays in ER. Continue Voltaren gel to painful areas. Shuffling gait with Parkinson's disease increases fall risk. Lives in detention. Staff tries to have aide assist with walking all the time; patient sometimes up without alerting staff. Difficult to account auditor and steer walker due to hand/wrist contractions. - Wear closed footwear with non-slip bottom - No area rugs - Keep cords clear of walkways - Walk with staff assistance [facility] 07-13-2024 Note Assessment/Plan: Recurrent falls Mechanical fall 07/09/2024 when stepping up into a van. She suffered contusions to her right hip and right knee, but no fractures per x-rays in ER. Continue Voltaren gel to painful areas. Shuffling gait with Parkinson's disease increases fall risk. Lives in detention. Staff tries to have aide assist with walking all the time; patient sometimes up without alerting staff. Difficult to account auditor and steer walker due to hand/wrist contractions. [...] acute visit for fall. Patient is a detention resident and presents with nursing staff. Patient [...] AUTHENTICATED BY ZARA EVANS, ON 07/15/2024 07:40:58 [facility] 07-13-2024 History of Present illness Narrative Assessment/Plan: Recurrent falls Mechanical fall 07/09/2024 when stepping up into a van. She suffered contusions to her right hip and right knee, but no fractures per x-rays in ER. Continue Voltaren gel to painful areas. Shuffling gait with Parkinson's disease increases fall risk. Lives in detention. Staff tries to have aide assist with walking all the time; patient sometimes up without alerting staff. Difficult to account auditor and steer walker due to hand/wrist contractions. [...] acute visit for fall. Patient is a detention resident and presents with nursing staff. Patient [...] Zara Evans DO documented in this encounter [facility] 07-09-2024 Emergency department Note Images from [...] Alexys Moran 07/09/2024 12:15 PM Dictation workstation: [id number] XR hip right with pelvis when performed 2 or 3 views Final Result No acute fracture seen in the right hip. If there is persistent clinical concern CT can be performed for further evaluation MACRO: None Signed by: Alexys Moran 07/09/2024 12:14 PM Dictation workstation: [id number] Pt course which Intervention and treatment included [...] knee and lower leg, initial encounter HYDROcodone-acetaminophen (Divide) 5-325 mg tablet diclofenac sodium (Voltaren) 1 % gel Knee Brace, Hinged --- 07/09/24 at 11:24 AM - Miles He DO Internal & Emergency Medicine Miles He DO Resident 07/09/24 1221 documented in this encounter [facility] Work Phone: 07-09-2024 Physician Emergency department Note [...] Alexys Moran 07/09/2024 12:15 PM Dictation workstation: [id number] XR hip right with pelvis when performed 2 or 3 views Final Result No acute fracture seen in the right hip. If there is persistent clinical concern CT can be performed for further evaluation MACRO: None Signed by: Alexys Moran 07/09/2024 12:14 PM Dictation workstation: [id number] Pt course which Intervention and treatment included [...] knee and lower leg, initial encounter HYDROcodone-acetaminophen (Divide) 5-325 mg tablet diclofenac sodium (Voltaren) 1 % gel Knee Brace, Hinged --- 07/09/24 at 11:24 AM - Miles He DO Internal & Emergency Medicine Miles He DO Resident 07/09/24 1221 [facility] Work Phone: 06-28-2024 History of Present illness Narrative Subjective Patient ID: Shaji Esquivel is a 63 y.o. female who presents for Follow-up (3 MONTH/Pt states she is not feeling well today ). HPI Patient is here today for 3 mo follow up with detention staff member. Pt has finished PT. Pt [...] is not feeling well, has no appetite. prison staff says that she always generally has [...] 2. Sch[facility]ia [facility]og[facility] - on remeron [...] [R26.89] Balance disorder documented in this encounter [facility] Work Phone: 06-24-2024 Evaluation + Plan note Associated Problem(s): Recurrent falls Shuffling gait with Parkinson's disease increases fall risk. Lives in detention. Staff tries to have aide assist with walking all the time; patient sometimes up without alerting staff. Difficult to account auditor and steer walker due to hand/wrist contractions. - Wear closed footwear with non-slip bottom - No area rugs - Keep cords clear of walkways - Walk with staff assistance [facility] 06-24-2024 Miscellaneous Notes Associated Problem(s): Recurrent falls Shuffling gait with Parkinson's disease increases fall risk. Lives in detention. Staff tries to have aide assist with walking all the time; patient sometimes up without alerting staff. Difficult to account auditor and steer walker due to hand/wrist contractions. [...] CMP q6 months documented in this encounter [facility] 06-24-2024 Evaluation + Plan note Associated Problem(s): Schizophrenia (HCC) Follows with psych, Dr. Estrada. On benztropine, mirtazapine, olanzapine. Nurse reports intermittent behaviors, but manageable. [facility] 06-24-2024 Evaluation + Plan note Associated Problem(s): Parkinson's disease (HCC) Follows with neurologist - Dr. Ortiz. On carbidopa-levodopa 25-100, 2 tablets TID. With shuffling gait increasing fall risk. Walks without device at home, but with aide present. No concerns today. [facility] 06-24-2024 Evaluation + Plan note Associated [...] months, will check A1c and urine microalbumin [facility] 06-24-2024 Evaluation + Plan note Associated Problem(s): Hypertension Goal <140/90. Current therapy with amlodipine 2.5 mg daily. BP 134/83 today. Not on ACEi or ARB, though diabetic. Will discuss switching in the future for renal protection. - Check CMP q6 months [facility] 06-23-2024 Note Assessment/Plan: Hypertension Goal <140/90. Current [...] Parkinson's disease increases fall risk. Lives in detention. Staff tries to have aide assist with walking all the time; patient sometimes up without alerting staff. Difficult to account auditor and steer walker due to hand/wrist contractions. [...] Accompanied by her nurse and the nurse regional construction manager from her detention. Previous PCP Dr. Jacinto at . PMH: HTN, HLD, SAH, DM2, hypothyroidism, GERD, CKD, schizophrenia, Parkinson's. DM Taking metformin, empagliflozin, januvia, and glipizide [facility] - Dr. Kimble Parkinson's On levodopa-carbidopa Neurologist - Dr. Ortiz Schizophrenia Psych -Dr. Estrada Wire Temperer Dr. Kimble Symptoms started 2 weeks ago. [...] AUTHENTICATED BY ZARA EVANS, ON 06/24/2024 01:29:15 [facility] 06-23-2024 History of Present illness Narrative [...] Parkinson's disease increases fall risk. Lives in detention. Staff tries to have aide assist with walking all the time; patient sometimes up without alerting staff. Difficult to account auditor and steer walker due to hand/wrist contractions. [...] Accompanied by her nurse and the nurse regional construction manager from her detention. Previous PCP Dr. Jacinto at . PMH: HTN, HLD, SAH, DM2, hypothyroidism, GERD, CKD, schizophrenia, Parkinson's. DM Taking metformin, empagliflozin, januvia, and glipizide [employer] [facility] - Dr. Kimble Parkinson's On levodopa-carbidopa Neurologist - Dr. Ortiz Schizophrenia Psych -Dr. Estrada Wire Temperer Dr. Kimble Symptoms started 2 weeks ago. [...] Zara Evans DO documented in this encounter [facility] 04-27-2024 Note Ameena Ruiz PM Patient [...] intact. Protective sensation is diminished using the Wacissa Piotr monofilament. Dermatologic: The right great toenail [...] AUTHENTICATED BY ELIZABETH KIMBLE, ON 04/27/2024 10:21:20 [facility] 04-27-2024 History of Present illness Narrative [...] intact. Protective sensation is diminished using the Wacissa Piotr monofilament. Dermatologic: The right great toenail [...] Physician & Surgeon documented in this encounter [facility] 03-29-2024 History of Present illness Narrative Subjective Patient ID: Shaji Esquivel is a 63 y.o. female who presents for Follow-up (3 month) and Fall. Fall Patient is here today for 3 mo follow up Pt reports that she has generalized pain everywhere. Is here today with detention staff who state that she always complains [...] 2. [facility] - on remeron - on xyprexa 3. HTN, Controlled - continue norvasc 4. HLD - continue lipitpr 10mg po daily 5. Parkinsons - follows with Dr rOtiz - on Sinemnet 6. DMII - last [...] or fluctuating manifestations documented in this encounter [facility] Work Phone: 02-16-2024 Note Ameena Ruiz PM [...] intact. Protective sensation is diminished using the Wacissa Piotr monofilament. Dermatologic: The right great toenail [...] AUTHENTICATED BY ELIZABETH KIMBLE, ON 02/16/2024 04:02:37 [facility] 02-16-2024 History of Present illness Narrative [...] intact. Protective sensation is diminished using the Wacissa Piotr monofilament. Dermatologic: The right great toenail [...] Physician & Surgeon documented in this encounter [facility] 02-03-2024 Note [address] (11) [facility] [address] [facility] [id number] Shaji Esquivel is a 63 y.o. female [...] AUTHENTICATED BY SACHIN MORALES, ON 02/03/2024 13:07:29 [facility] 02-03-2024 History of Present illness Narrative [address] (11) [facility] [address] [facility] [id number] Shaji Esquivel is a 63 y.o. female [...] Sachin Morales MD documented in this encounter [facility] 01-29-2024 Hospital Discharge instructions Darin Trujillo MD - 01/29/2024 8:46 AM EDT Ice MOTRIN FOR PAIN AND SWELLING DAVID WRAP TO KNEE DENTAL FOLLOW UP FOR INCISOR INJRY ORTHO FOLLOW UP FOR CHRONIC RIGHT ULNA SUBLUXATION The following attachments cannot be sent through Care Everywhere.Minor Contusion ED (Kazakh)documented in this encounter [facility] Work Phone: 01-29-2024 Emergency department Note Images [...] Comments: Patient is awake alert coherent cooperative [place] Coma Scale 15 in no acute discomfort [...] Pito Kaur 01/29/2024 8:37 AM Dictation workstation: [id number] XR forearm right 2 views Final Result No acute fracture. Persistent dorsal subluxation of the distal ulna in relation to the distal radius; correlate clinically. Signed by: Pito Kaur 01/29/2024 8:33 AM Dictation workstation: [id number] Procedures Medical Decision Making Italian diagnosis included forearm fracture forearm contusion right [...] MD 01/29/24 0855 documented in this encounter [facility] Work Phone: 01-29-2024 Physician Emergency department Note [...] Pito Kaur 01/29/2024 8:37 AM Dictation workstation: [id number] XR forearm right 2 views Final Result No acute fracture. Persistent dorsal subluxation of the distal ulna in relation to the distal radius; correlate clinically. Signed by: Pito Kaur 01/29/2024 8:33 AM Dictation workstation: [id number] Procedures Medical Decision Making Italian diagnosis included forearm fracture forearm contusion right [...] 01/29/24 0854 Darin Trujillo MD 01/29/24 0855 [facility] Work Phone: 01-21-2024 Instructions Huy Vasquez PA-C [...] with any questions. documented in this encounter [facility] 01-21-2024 Note Neurosurgery Progres s Note [...] significant intellectual impairment who lives at a detention under the guardianship of the [facility]. History was obtained chiefly from her two [...] 5 Triceps 5 5 Deltoid 5 5 Janitor And Cleaner - 5 Hip Flexion 5 5 Knee Extension 5 5 Dorsiflexion 5 5 Unable to obtain reliable right account auditor, patient has chronic spasticity of right hand, she holds hand towel firmly in her right hand. No garcia AUTHENTICATED BY HUY VASQUEZ, ON 01/21/2024 12:48:50 [facility] 01-21-2024 History of Present illness Narrative [...] significant intellectual impairment who lives at a detention under the guardianship of the state. History [...] 5 Triceps 5 5 Deltoid 5 5 Janitor And Cleaner - 5 Hip Flexion 5 5 Knee Extension 5 5 Dorsiflexion 5 5 Unable to obtain reliable right account auditor, patient has chronic spasticity of right hand, she holds hand towel firmly in her right hand. No garcia documented in this encounter [facility] 01-08-2024 Instructions Mina Ortiz MD - [...] around 12 months. documented in this encounter [facility] 01-08-2024 History of Present illness Narrative Neurology Outpatient Consult [facility] [address] [place] [address] (phone)/[phone] (fax) Patient: Shaji Esquivel Date of : [...] on plantar stimulation. documented in this encounter [facility] 01-08-2024 Note Neurology Outpatient Consult [facility] [address] [place] [address] (phone)/[phone] (fax) Patient: Shaji Esquivel Date of : [...] carbidopa-levodopa (Sinemet) 25-100 (more content not included)... [facility] 12-29-2023 History of Present illness Narrative [...] fluctuating manifestations (Multi) documented in this encounter [facility] Work Phone: 12-24-2023 Note [address] (11) [facility] [address] [facility] [phone] Shaji Esquivel is a 63 [...] AUTHENTICATED BY SACHIN MORALES, ON 12/24/2023 10:08:02 [facility] 12-24-2023 History of Present illness Narrative [address] (11) [facility] [address] [facility] [phone] Shaji Esquivel is a 63 y.o. female [...] Sachin Morales MD documented in this encounter [facility] 12-17-2023 History of Present illness Narrative [...] -PT/OT referrals placed documented in this encounter [facility] Work Phone: 12-16-2023 Note Trauma Follow Up Not e Patient Name: Shaji Esquivel [facility]: [id number] Chief Complaint: [place]: 63-year-old female with [...] AUTHENTICATED BY KIRK GODFREY, ON 12/16/2023 14:14:28 [facility] 12-16-2023 History of Present illness Narrative Trauma Follow Up Note Patient Name: Shaji Esquivel MR #: [id number] Chief Complaint: [place]: 63-year-old female with [...] no acute issues. documented in this encounter [facility] 12-05-2023 Note Neurosurgery Inpatie nt Follow-up 12/05/2023 Vel Benavidez MD [facility] Patient: Shaji Esquivel Date of : 1960 [...] AUTHENTICATED BY VEL BENAVIDEZ, ON 12/05/2023 12:30:03 [facility] 12-04-2023 Note Pre-Procedure Physic ruthy Note for Procedures with Moderate or Deep Sedation Patient Name: Shaji Esquivel MR #: [id number] : 1960 Informed Consent process completed. I have reviewed the H&P and there are no changes. Heart, Lungs, and Airway assessment completed. Sedation Plan: Moderate Pre-Sedation Assessment ASA Classification: ASA 3: A patient with severe systemic disease. Mallampati Classification: Class II: Partial uvula and soft palate are visualized 12/04/2023 3:09 PM Duc Jaramillo M.D. Attending Physician [facility] 12/04/2023 Portions of this note may have been dictated utilizing voice recognition software. Unfortunately this leads to occasional typographical errors. If questions arise please do not hesitate to contact my office for clarification. AUTHENTICATED BY DUC JARAMILLO, ON 12/04/2023 15:09:56 [facility] 10-14-2023 History of Present illness Narrative Images [...] intact. Protective sensation is diminished using the Wacissa Piotr monofilament. Dermatologic: The right great toenail [...] Physician & Surgeon documented in this encounter [facility] 07-15-2023 History of Present illness Narrative [...] intact. Protective sensation is diminished using the Wacissa Piotr monofilament. Dermatologic: The right great toenail [...] foot examination, type 2 DM, encounter for ([facility]) 2. Diabetic peripheral neuropathy ([facility]) 3. Onychodystrophy 4. Onychomycosis 5. Pain due [...] Physician & Surgeon documented in this encounter [facility] 06-25-2023 Telephone encounter Note I called Fatuma at [phone]. She gave me the fax number of [phone]> Fax sent. She stated understanding. [facility] 06-25-2023 Miscellaneous Notes I called Fatuma at [phone]. She gave me the fax number of [phone]> Fax sent. She stated understanding. documented in this encounter [facility] 06-23-2023 Instructions Mina Ortiz MD - [...] around 6 months. documented in this encounter [facility] 06-23-2023 History of Present illness Narrative Neurology Outpatient Consult [facility] [address] [place] [address] (phone)/[phone] (fax) Patient: Shaji Esquivel Date of : [...] on plantar stimulation. documented in this encounter [facility] 04-21-2023 History of Present illness Narrative Subjective Patient ID: Shaji Esquivel is a 62 y.o. female who presents for Establish Care (BRAKER PASSENGER TRAIN/EST CARE). HPI Patient is a 62 y.o. detention patient who is here today to establish care. Patient has a pmhx of DMII, HTN, HLD, CKD, Hypothyroidism, Schizophrenia, Parkinsons Disease, GERD. She sees dr Arteaga at [facility] as well as Dr Ortiz for the [...] unspecified type (CMS/HCC) documented in this encounter [facility] Work Phone: 12-19-2022 Instructions Mina Ortiz MD [...] around 6 months documented in this encounter [facility] 12-19-2022 History of Present illness Narrative Neurology Outpatient Consult [facility] [address] [place] [address] (phone)/[phone] (fax) Patient: Niva Eugenia Smail Date of [...] or postural instability. documented in this encounter [facility] 11-25-2022 History of Present illness Narrative [...] resume skilled PT within 30 days. [facility] Work Phone: 08-07-2022 History of Present illness Narrative Patient confirmed name and date of this session. Gait belt throughout.Pt with significant improvements in ROM with all activities especially august amb, side steps, HS curls. SBA-CGA throughout which is also a progression. Mod visual, tactile, verbal cues to perform exercises in correct plane. Less rest breaks required compared to previous sessions. [facility] Work Phone: 08-01-2022 Instructions Mina Ortiz [...] around 6 months. documented in this encounter [facility] 08-01-2022 History of Present illness Narrative Neurology Outpatient Consult [facility] [address] [place] [address] (phone)/[phone] (fax) Patient: Shaji Esquivel Date of : [...] or postural instability. documented in this encounter [facility] Evaluation note Diagnosis Other symptoms and [...] unspecified type (CMS/HCC) documented in this encounter [facility] Work Phone: Evaluation note* Diagnosis Parkinson disease Paralysis agitans [facility] Diagnosis Parkinson disease Paralysis agitans [facility] Diagnosis Encounter for screening mammogram for malignant neoplasm of breast documented in this encounter [facility] Work Phone: Evaluation note* Diagnosis Encounter for screening mammogram for malignant neoplasm of breast documented in this encounter [facility] Work Phone: Evaluation note* Diagnosis Comprehensive diabetic [...] or fluctuating manifestations documented in this encounter [facility] Work Phone: Evaluation note* Diagnosis Onychomycosis- Primary [...] wrist, initial encounter documented in this encounter [facility] Work Phone: Evaluation note* Diagnosis Parkinson disease (HCC) Paralysis agitans [facility] Diagnosis Parkinson's disease with fluctuating manifestations, unspecified whether dyskinesia present (Multi)- Primary Subarachnoid hemorrhage (Multi) Subarachnoid hemorrhage documented in this encounter [facility] Work Phone: Evaluation note* Diagnosis Primary hypertension- [...] fluctuating manifestations (Multi) documented in this encounter [facility] Work Phone: Evaluation note* Diagnosis Subluxation of distal end of right ulna, subsequent encounter- Primary Contusion of right forearm, initial encounter Contusion of right knee, initial encounter Subluxation of tooth Other specified disorders of the teeth and supporting structures documented in this encounter [facility] Work Phone: Evaluation note* Diagnosis Other closed fracture of distal end of right ulna, initial encounter- Primary documented in this encounter [facility] Work Phone: Evaluation note* Diagnosis Primary hypertension- [...] manifestations Balance disorder documented in this encounter [facility] Work Phone: Evaluation note* Diagnosis Fall, initial encounter- Primary Contusion of right knee and lower leg, initial encounter documented in this encounter [facility] Work Phone: Evaluation note* Diagnosis Primary hypertension- [...] of right foot documented in this encounter [facility] note* Diagnosis Primary hypertension- Primary Unspecified [...] falls Multiple falls documented in this encounter [facility] note* Diagnosis Primary hypertension- Primary Unspecified [...] involving multiple joints documented in this encounter [facility] note* Diagnosis Primary hypertension- Primary Unspecified essential hypertension Type 2 diabetes mellitus without complication, without long-term current use of insulin (HCC) Parkinson's disease, unspecified whether dyskinesia present, unspecified whether manifestations fluctuate (HCC) Schizophrenia, unspecified type (HCC) Recurrent falls Recurrent falls- Primary Primary osteoarthritis involving multiple joints Recurrent falls- Primary documented in this encounter [facility] [place] [facility]* Diagnosis Primary hypertension- Primary Unspecified essential hypertension Type 2 diabetes mellitus without complication, without long-term current use of insulin (HCC) Parkinson's disease, unspecified whether dyskinesia present, unspecified whether manifestations fluctuate (HCC) Schizophrenia, unspecified type (HCC) Recurrent falls Recurrent falls- Primary Primary osteoarthritis involving multiple joints Recurrent falls- Primary Frequent falls- Primary Parkinson's disease (HCC) Paralysis agitans documented in this encounter [facility] note* Diagnosis Primary hypertension- Primary Unspecified [...] joints Frequent falls documented in this encounter [facility] note* Diagnosis Primary hypertension- Primary Unspecified essential hypertension Type 2 diabetes mellitus without complication, without long-term current use of insulin (HCC) Parkinson's disease, unspecified whether dyskinesia present, unspecified whether manifestations fluctuate (HCC) Schizophrenia, unspecified type (HCC) Recurrent falls Recurrent falls- Primary Primary osteoarthritis involving multiple joints Recurrent falls- Primary Constipation, unspecified constipation type- Primary Frequent falls documented in this encounter [facility] note* Diagnosis Primary hypertension- Primary Unspecified [...] joints Frequent falls documented in this encounter [facility] note* Diagnosis Primary hypertension- Primary Unspecified [...] joints Frequent falls documented in this encounter [facility] note* Diagnosis Primary hypertension- Primary Unspecified [...] joints Frequent falls documented in this encounter [facility] note* Diagnosis Primary hypertension- Primary Unspecified [...] joints Frequent falls [facility] Diagnosis Primary hypertension- Primary Unspecified [...] area, including retroperitoneum documented in this encounter [facility] [place] [facility]* Diagnosis Primary hypertension- Primary Unspecified essential [...] area, including retroperitoneum [facility] Diagnosis Primary hypertension- Primary Unspecified [...] influencing health status [facility] Diagnosis Primary hypertension- Primary Unspecified [...] area, including retroperitoneum documented in this encounter [facility] [place] [facility]* Diagnosis Primary hypertension- Primary Unspecified essential [...] insulin (HCC)- Primary documented in this encounter [facility] [place] [facility]* Diagnosis Primary hypertension- Primary Unspecified essential [...] of right foot documented in this encounter [facility] [place] [facility]* Diagnosis Primary hypertension- Primary Unspecified essential [...] when considering positive factors including support in detention with barriers such as understanding of exercises. The pt verbalized understanding and agreement to goals and POC. Thank you for this referral and please call [phone] with any questions or concerns. * Clinical Presentation: Stable and/or uncomplicated characteristics. * Level of Complexity: low * Problem List: activity limitations, ADLs/IADLs/self care skills, balance, decreased functional level, decreased knowledge of HEP, fall risk, flexibility, gait/locomotion, range of motion/joint mobility, strength and transfers. [facility] Work Phone: History of Present illness Narrative* Patient confirmed name and date of this session. * Pt tends to turn with side steps to L indicating potentially more weakness of L hip abductors vs R.Max verbal and visual cues for all activities. She demos very short steps bkwd despite cues. She does c/o B knee pain throughout session. [facility] Work Phone: History of Present illness [...] balance for reduced risk of falls. [facility] Work Phone: History of Present illness [...] with STS d/t weakness of LEs. [facility] Work Phone: History of Present illness Narrative* Patient confirmed name and date of this session. Gait belt throughout. * Pt requires max VCs and encouragement throughout d/t fear of falling. Able to perform multiple activities outside // bars to further challenge balance. 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 Improved compliance with w/c mobilization activities. [facility] Work Phone: History of Present illness [...] falling and weakness of glute med R>L. [facility] Work Phone: History of Present illness Narrative* Tracy Hilliard APRN-SOCIAL MEDIA INTERN - 02/05/2024 10:50 AM EDT Subjective Patient [...] needed -Ice 2for swelling [facility]* Attachments The following attachments cannot be sent through Care Everywhere. * Minor Contusion ED (Kazakh) * Taking care of bruises (Kazakh) * Preventing Falls ED (Kazakh) [facility] Reason for referral (narrative)* Consultation (Routine) - Authorized Specialty Diagnoses / Procedures Referred By Jess ayon Referred To Contact Primary Care Procedures Follow Up In Primary Care - Established Rafa Jacinto DO [address] [facility] Physician [place] [id number] Referral ID Status Reason Start Date Expiration Date V isits Requested Visits Authorized [id number] Authorized 04/21/2023 04/20/2024 1 1 * Imaging (Routine) - Authorized Specialty Diagnoses / Procedures Referred By Jess ayon Referred To Contact Radiology Diagnoses Encounter for screening mammogram for malignant neoplasm of breast Procedures BI mammo bilateral screening tomosynthesis Rafa Jacinto DO [address] [facility] [place] [address] Referral ID Status Reason Start Date Expiration Date Visits Requested Visits Authorized [id number] Authorized Perform Procedure 3 04/20/2024 1 1 [facility] Work Phone: Reason for referral (narrative)* Consultation (Routine) - Pending Review Specialty Diagnoses / Procedures Referred By Contac t Referred To Contact Speech Pathology / Speech Therapy Diagnoses Parkinson's disease with fluctuating manifestations, unspecified whether dyskinesia present (Multi) Tracy Hilliard APRN-CNP [address] [facility] Physician [place] [id number] Referral ID Status Reason Start Date Expiration Date Visits Requested Visits Authorized [id number] Pending Review Specialty Services Required 12/17/2023 12/16/2024 1 1 * Consultation (Routine) - Pending Review Specialty Diagnoses / Procedures Referred By Contac t Referred To Contact Occupational Therapy Diagnoses Parkinson's disease with fluctuating manifestations, unspecified whether dyskinesia present (Multi) Tracy Hilliard APRN-CNP [address] [place] [id number] Referral ID Status Reason Start Date Expiration Date Visits Requested Visits Authorized [id number] Pending Review Specialty Services Required 12/17/2023 12/16/2024 1 1 * Consultation (Routine) - Pending Review Specialty Diagnoses / Procedures Referred By Contac t Referred To Contact Physical Therapy Diagnoses Parkinson's disease with fluctuating manifestations, unspecified whether dyskinesia present (Multi) Tracy Hilliard APRN-CNP 53 [facility] Physician [place] [id number] Referral ID Status Reason Start Date Expiration Date Visits Requested Visits Authorized [id number] Pending Review Specialty Services Required 12/17/2023 12/16/2024 1 1 [facility] [place] Work Phone: reason for visit Narrative* Initial Evaluation . Dx: R29.6. * [facility] Work Phone: reason for visit Narrative* Initial Evaluation . Dx: R29.6. * [facility] Work Phone: Retisc for visit Narrative* Initial Evaluation . Dx: R29.6. * [facility] Work Phone: Rehyqs for visit Narrative* Initial Evaluation . Dx: R29.6. * [facility] Work Phone: Reztld for visit Narrative* Initial Evaluation . Dx: R29.6. * [facility] Work Phone: Reuxpn for visit Narrative* Initial Evaluation . Dx: R29.6. * [facility] Work Phone: Reiwno for visit Narrative* Initial Evaluation . Dx: R29.6. * [facility] by[facility] Work Phone: Reogtz for visit Narrative* Neuro Rehab PT (Routine) - Pending Review Specialty Diagnoses / Procedures Referred By Jess ayon Referred To Contact Rehabilitation Diagnoses Closed fracture of sternum with routine healing, unspecified portion of sternum, subsequent encounter Multiple falls Recurrent falls Parkinson's disease, unspecified whether dyskinesia present, unspecified whether manifestations fluctuate (HCC) Primary osteoarthritis involving multiple joints Shelley Maldonado PA-C [address] [place] [address] Phone: tel: fax: [facility] [address] [place] [address] Phone: tel: fax: Referral ID Status Reason Start Date Expiration Date Visits Requested Visits Authorized [id number] Pending Review Patient Preference 07/23/2024 07/23/2025 8 199 [facility] for visit Narrative* Evaluate and Treat (Routine) - Closed Specialty Diagnoses / Procedures Referred By Jess ayon Referred To Contact Gastroenterology Diagnoses Abnormal CT of the abdomen Zara Evans, DO [address] [address] Phone: tel: fax: [facility] [address] [place] [address] Phone: tel:[phone] fax: Referral ID Status Reason Start Date Expiration Date Visits Re quested Visits Authorized [id number] Closed 07/26/2024 07/26/2025 1 1 [facility] Summary Purpose Family History No Family [...] Documents on File Type Date Recorded Patient Transfer Station Operator Expl anation Advance Directives and Livin g Will 11/03/2018 10:30 AM Documents on File Type Date Recorded Patient Transfer Station Operator Expl anation Advance Directives and Livin g Will 11/03/2018 10:30 AM Documents on File Type Date Recorded Patient Transfer Station Operator Expl anation Guardianship Papers 08/01/2022 Documents on File Type Date Recorded Patient Transfer Station Operator Expl anation Living Will 05/24/2011 Documents on File Type Date Recorded Patient Transfer Station Operator Expl anation Guardianship Papers 08/01/2022 Date Activated Date Inactivated Comments 12/04/2023 4:46 PM 12/05/2023 6:04 PM Date Activated Date Inactivated Comments 12/04/2023 4:46 PM 12/05/2023 6:04 PM Documents on File Type Date Recorded Patient Transfer Station Operator Expl anation Living Will 05/24/2011 Documents on File Type Date Recorded Patient Transfer Station Operator Expl anation Advance Directives and Living Will 05/24/2011 Living Will 05/24/2011 Documents on File Type Date Recorded Patient Transfer Station Operator Expl anation Guardianship Papers 06/01/2024 Apsi Other 2-GUARDIANSHIP PAPERWORK Guardianship Papers 08/01/2022 Documents on File Type Date Recorded Patient Transfer Station Operator Expl anation Guardianship Papers 07/23/2024 3:21 PM Guardianship Papers 07/19/2024 Guardianship Papers 06/01/2024 Apsi Other 2-GUARDIANSHIP PAPERWORK Guardianship Papers 08/01/2022 Date Activated Date Inactivated Comments 07/19/2024 9:59 AM 07/23/2024 5:11 PM Date Activated Date Inactivated Comments 12/04/2023 4:46 PM 12/05/2023 6:04 PM Documents on File Type Date Recorded Patient Transfer Station Operator Expl anation Guardianship Papers 07/23/2024 3:21 PM Guardianship Papers 07/19/2024 Guardianship Papers 06/01/2024 Apsi Other 2-GUARDIANSHIP P[employer]ERWORK Guardianship Papers 08/01/2022 Date Activated Date Inactivated Comments 07/19/2024 9:59 AM 07/23/2024 5:11 PM Date Activated Date Inactivated Comments 12/04/2023 4:46 PM 12/05/2023 6:04 PM Documents on File Type Date Recorded Patient Transfer Station Operator Expl anation Guardianship Papers 07/23/2024 3:21 PM Guardianship Papers 07/30/2024 Guardianship Papers 07/19/2024 Guardianship Papers 06/01/2024 [facility] -GUARDIANSHIP P[employer]ERWORK Guardianship Papers 08/01/2022 Documents on File Type Date Recorded Patient Transfer Station Operator Expl anation Guardianship Papers 07/23/2024 3:21 PM Guardianship Papers 07/30/2024 Guardianship Papers 07/19/2024 Guardianship Papers 06/01/2024 [facility] -[employer]WORK Guardianship Papers 08/01/2022 Reason for Referral Status Reason Specialty Diagnoses / Procedures Referred By Contact Referred To Contact Pending Review Radiology Diagnoses Dysphagia, unspecified type Procedures XR Upper GI Series Antwan Maharaj MD [address] [place] [address] Specialty Diagnoses / Procedures Referred By Contac t Referred To Contact Neurology Diagnoses Other symptoms and signs involving the nervous system Abnormal brain MRI Antwan Maharaj MD [address] [place] [id number] Mina Ortiz MD [address] [place] [address] Referral ID Status Reason Start Date Expiration Date V isits Requested Visits Authorized [id number] Authorized 11/15/2021 11/15/2022 1 1 Specialty Diagnoses / Procedures Referred By Contac t Referred To Contact Radiology Diagnoses SAH (subarachnoid hemorrhage) (HCC) Procedures CT Head Or Brain Without Contrast Huy Vasquez PA-C [address] [place] [address] Referral ID Status Reason Start Date Expiration Date V isits Requested Visits Authorized [id number] New Request 01/05/2024 01/04/2025 1 1 Assessments Diagnosis Dysphagia, unspecified type Diagnosis Fracture of unspecified phalanx of left little finger, initial encounter for closed fracture Diagnosis Fracture of unspecified phalanx of left little finger, initial encounter for closed fracture History of Present Illness * Ti Rhodes MD - 04/27/2019 6:30 PM EST Dictation on: 04/27/2019 6:32 PM by: TI RHODES [[id number]] documented in this encounter* Ti Rhodes MD [...] section and content) DATE CREATED AUTHOR 12/03/2017 [facility] DATE CREATED AUTHOR AUTHOR'S ORGANIZ ATION 12/26/2017 [facility] DATE CREATED AUTHOR AUTHOR'S ORGANIZ ATION 02/26/2019 [facility] DATE CREATED AUTHOR AUTHOR'S ORGANIZ ATION 04/24/2022 [facility] DATE CREATED AUTHOR AUTHOR'S ORGANIZ ATION 02/01/2023 [facility] DATE CREATED AUTHOR AUTHOR'S ORGANIZ ATION 02/05/2023 [facility] DATE CREATED AUTHOR AUTHOR'S ORGANIZ ATION 02/01/2024 [facility] DATE CREATED AUTHOR AUTHOR'S ORGANIZ ATION 02/05/2024 [facility] DATE CREATED AUTHOR AUTHOR'S ORGANIZ ATION 06/29/2024 [facility] DATE CREATED AUTHOR AUTHOR'S ORGANIZ ATION 07/03/2024 [facility] DATE CREATED AUTHOR AUTHOR'S ORGANIZ ATION 07/19/2024 [facility] DATE CREATED AUTHOR AUTHOR'S ORGANIZ ATION 09/23/2024 [facility] DATE CREATED AUTHOR AUTHOR'S ORGANIZ ATION 10/16/2024 [facility] DATE CREATED AUTHOR AUTHOR'S ORGANIZ ATION 11/20/2024 [facility] Reason for Visit (unrecogniz ed section and content) Status Reason Specialty Diagnoses / Procedures Referred By Contact Referred To Contact Pending Review Radiology Diagnoses Dysphagia, unspecified type Procedures XR Upper GI Series Antwan Maharaj MD [address] [place] [address] Reason Comments Injury Pain Status Reason Specialty Diagnoses / Procedures Referred By Contact Referred To Contact Closed Sports Medicine Diagnoses Fracture of unspecified phalanx of left little finger, initial encounter for closed fracture Antwan Maharaj MD [address] [place] [address] Ti Rhodes MD [address] [place] [id number] Reason Comments Follow-up Reason Comments Follow-up Patients [...] once a week. 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 Reason Onset Date Comments Medication Refill 06/24/2023 Specialty Diagnoses / Procedures Referred By Jess ayon Referred To Contact Radiology Diagnoses Encounter for screening mammogram for malignant neoplasm of breast Procedures BI mammo bilateral screening BI mammo bilateral screening tomosynthesis Rafa Jacinto, DO [address] [facility] Physician [place] [id number] Referral ID Status Reason Start Date Expiration Date Visits Requested Visits Authorized [id number] Pending Review Perform Procedure 3 04/20/2024 1 1 Reason Comments Nail Care Patient presents for diabetic foot care. Last A1C 7.2 Patient has toenail on tight great toe that is causing her pain Reason Comments Nail Care Diabetic nail care. Last A1C 7.2 Reason Comments Follow-up Fall Reason Comments Parkinson's Disease Caregivers present. Caregivers report recent fall (1.5 month ago). She was in [place] and transferred to [facility]. Pt utilizing assistance with gait. Reason [...] Care - Established Rafa Jacinto, DO [address] [facility] [place] [address] Referral ID Status Reason Start Date Expiration Date V isits Requested Visits Authorized [id number] Authorized 04/21/2023 04/20/2024 1 1 Reason Comments [...] involving multiple joints Shelley Maldonado PA-C [address] [place] [address] Phone: tel: fax: [facility] [address] [place] [address] Phone: tel: fax: Referral ID Status Reason Start Date Expiration Date Visits Requested Visits Authorized [id number] Authorized Patient Preference 07/23/2024 07/23/2025 1 199 [...] involving multiple joints Shelley Maldonado PA-C [address] [place] [address] Phone: tel: fax: [facility] [address] [place] [address] Phone: tel: fax: Referral ID Status Reason Start Date Expiration Date Visits Requested Visits Authorized [id number] Pending Review Patient Preference 07/23/2024 07/23/2025 8 199 Reason Onset Date Comments [facility] 2024 Referral ID Status Reason Start Date Expiration Date Visits Requested Visits Authorized [id number] Pending Review Patient Preference 07/23/2024 07/23/2025 8 199 Reason Onset Date Comments Medication Refill 09/15/2024 Reason Comments Nail Care Diabetic A1c 8.7 09/07 10/31 Care Teams (unrecognized sec tion and content) Auto Body Service Mechanic Relationship Specialty Start Date End Date Antwan Maharaj MD PCP - General Family Medicine 04/27/19 Auto Body Service Mechanic Relationship Specialty Start Date End Date Antwan Maharaj MD PCP - General Family Medicine 04/27/19 Auto Body Service Mechanic Relationship Specialty Start Date End Date Antwan Maharaj MD PCP - General Family Medicine 04/27/19 Auto Body Service Mechanic Relationship Specialty Start Date End Date Antwan Maharaj MD [address] [place] [address] PCP - General Family Medicine 04/17/22 Auto Body Service Mechanic Relationship Specialty Start Date End Date Antwan Maharaj MD [address] [place] [address] PCP - General Family Medicine 04/17/22 Auto Body Service Mechanic Relationship Specialty Start Date End Date Rafa Jacinto DO 53 [facility] [place] [address] PCP - General Internal Medicine 03/19/23 Auto Body Service Mechanic Relationship Specialty Start Date End Date Antwan Maharaj MD [address] [place] [address] PCP - General Family Medicine 04/17/22 Auto Body Service Mechanic Relationship Specialty Start Date End Date Antwan Maharaj MD [address] [place] [address] PCP - General Family Medicine 04/17/22 Auto Body Service Mechanic Relationship Specialty Start Date End Date Rafa Jacinto DO 53 [facility] [place] [address] PCP - General Internal Medicine 03/19/23 Auto Body Service Mechanic Relationship Specialty Start Date End Date Rafa Jacinto DO 53 [facility] [place] [address] PCP - General Internal Medicine 03/19/23 Auto Body Service Mechanic Relationship Specialty Start Date End Date Antwan Maharaj MD [address] [place] [address] PCP - General Family Medicine 04/17/22 Auto Body Service Mechanic Relationship Specialty Start Date End Date Antwan Maharaj MD [address] [place] [address] PCP - General Family Medicine 04/17/22 Auto Body Service Mechanic Relationship Specialty Start Date End Date Antwan Maharaj MD [address] [place] [address] PCP - General Family Medicine 04/17/22 Auto Body Service Mechanic Relationship Specialty Start Date End Date Antwan Maharaj MD [address] [place] [address] PCP - General Family Medicine 04/17/22 Auto Body Service Mechanic Relationship Specialty Start Date End Date Antwan Maharaj MD [address] [place] [address] PCP - General Family Medicine 04/17/22 Auto Body Service Mechanic Relationship Specialty Start Date End Date Antwan Maharaj MD [address] [place] [address] PCP - General Family Medicine 04/17/22 Auto Body Service Mechanic Relationship Specialty Start Date End Date Rafa Jacinto DO 53 [facility] [place] [address] PCP - General Internal Medicine 03/19/23 Auto Body Service Mechanic Relationship Specialty Start Date End Date Rafa Jacinto DO 53 [facility] [place] [address] PCP - General Internal Medicine 03/19/23 Auto Body Service Mechanic Relationship Specialty Start Date End Date Antwan Maharaj MD [address] [place] [phone] PCP - General Family Medicine 04/17/22 Auto Body Service Mechanic Relationship Specialty Start Date End Date Rafa Jacinto DO 53 [facility] Physician [place] [phone] PCP - General Internal Medicine 03/19/23 Marie Iyer, generalistFarm Supervisor 12/08/23 Auto Body Service Mechanic Relationship Specialty Start Date End Date Rafa Jacinto DO 53 [facility] Physician [place] [phone] PCP - General Internal Medicine 03/19/23 Marie Iyer, generalistFarm Supervisor 12/08/23 Auto Body Service Mechanic Relationship Specialty Start Date End Date Rafa Jacinto DO 53 [facility] Physician [place] [phone] PCP - General Internal Medicine 03/19/23 Marie Iyer, generalistFarm Supervisor 12/08/23 Auto Body Service Mechanic Relationship Specialty Start Date End Date Rafa Jacinto DO 53 [facility] Physician [place] [phone] PCP - General Internal Medicine 03/19/23 Marie Iyer, generalistFarm Supervisor 12/08/23 Auto Body Service Mechanic Relationship Specialty Start Date End Date Zara Evans DO [address] [address] PCP - General Family Medicine 06/23/24 Auto Body Service Mechanic Relationship Specialty Start Date End Date Rafa Jacinto DO 53 [facility] [place] [address] PCP - General Internal Medicine 03/19/23 Auto Body Service Mechanic Relationship Specialty Start Date End Date Rafa Jacinto AmyDO 53 [facility] [place] [address] PCP - General Internal Medicine 03/19/23 Auto Body Service Mechanic Relationship Specialty Start Date End Date Zara Evans DO [facility] [address] [address] PCP - General Family Medicine 06/23/24 Auto Body Service Mechanic Relationship Specialty Start Date End Date Zara Evans DO [address] [place], [place] [phone] PCP - General Family Medicine 06/23/24 Auto Body Service Mechanic Relationship Specialty Start Date End Date Zara Evans DO [address] [place] [address] PCP - General Family Medicine 06/23/24 Auto Body Service Mechanic Relationship Specialty Start Date End Date Zara Evans DO [address] [place], [place] [phone] PCP - General Family Medicine 06/23/24 Auto Body Service Mechanic Relationship Specialty Start Date End Date Zara Evans DO [address] [place] [address] PCP - General Family Medicine 06/23/24 Auto Body Service Mechanic Relationship Specialty Start Date End Date Zara Evans DO [facility] [address] [address] PCP - General Family Medicine 06/23/24 Auto Body Service Mechanic Relationship Specialty Start Date End Date Zara Evans DO [address] [place], [place] [phone] PCP - General Family Medicine 06/23/24 Auto Body Service Mechanic Relationship Specialty Start Date End Date Zara Evans DO [address] [place], [place] [phone] PCP - General Family Medicine 06/23/24 Auto Body Service Mechanic Relationship Specialty Start Date End Date Zara Evans DO [address] [place], [place] [phone] PCP - General Family Medicine 06/23/24 Auto Body Service Mechanic Relationship Specialty Start Date End Date Zara Evans DO [address] [place], [place] [phone] PCP - General Family Medicine 06/23/24 Auto Body Service Mechanic Relationship Specialty Start Date End Date Zara Evans DO [address] [place], [place] [phone] PCP - General Family Medicine 06/23/24 Auto Body Service Mechanic Relationship Specialty Start Date End Date Zara Evans DO [address] [place], [place] [phone] PCP - General Family Medicine 06/23/24 Auto Body Service Mechanic Relationship Specialty Start Date End Date Zara Evans DO [address] [place], [place] [phone] PCP - General Family Medicine 06/23/24 Auto Body Service Mechanic Relationship Specialty Start Date End Date Zara Evans DO [address] [place], [place] [address] PCP - General Family Medicine 06/23/24 Auto Body Service Mechanic Relationship Specialty Start Date End Date Zara Evans DO [address] [place], [place] [address] PCP - General Family Medicine 06/23/24 Auto Body Service Mechanic Relationship Specialty Start Date End Date Zara Evans DO [address] [place], [place] [address] PCP - General Family Medicine 06/23/24 Auto Body Service Mechanic Relationship Specialty Start Date End Date Zara Evans DO [address] [place] [address] PCP - General Family Medicine 06/23/24 Auto Body Service Mechanic Relationship Specialty Start Date End Date Zara Evans DO [address] [place] [address] PCP - General Family Medicine 06/23/24 Auto Body Service Mechanic Relationship Specialty Start Date End Date Zara Evans DO [address] [place], [place] [address] PCP - General Family Medicine 06/23/24 Auto Body Service Mechanic Relationship Specialty Start Date End Date Zara Evans DO [address] [place], [place] [phone] PCP - General Family Medicine 06/23/24 Auto Body Service Mechanic Relationship Specialty Start Date End Date Zara Evans DO [address] [place], [place] [phone] PCP - General Family Medicine 06/23/24 <item><item><item><item><item> [...] pain scores based on patient preference? Yes 2331 (Given - Provid er: Ann Hill RN) [...] BE BASED ON THE PRIMARY CLINICAL RECORDS. [employer] provides no warranty or guarantee of the accuracy or completeness of information in this document.
--- NOTE | 2024-12-18 22:50 | RAD_ITS ---
PROCEDURE: CHEST 1 VIEW 12/18/2024 REASON FOR EXAM: NEURO DEFICIT, ACUTE, STROKE SUSPECTED TECHNIQUE: Frontal view of the chest. COMPARISON: None FINDINGS: Hardware: None Heart: The heart size is normal. Lungs: No focal consolidation or significant pleural effusion. Bones: Degenerative changes are identified within the thoracic spine. RAD/Chest 1 View IMPRESSION: No acute cardiopulmonary abnormality. Reading Location: [facility]
--- NOTE | 2024-12-18 22:50 | RAD_ITS ---
PROCEDURE: CHEST 1 VIEW 12/18/2024 REASON FOR EXAM: NEURO DEFICIT, ACUTE, STROKE SUSPECTED TECHNIQUE: Frontal view of the chest. COMPARISON: None FINDINGS: Hardware: None Heart: The heart size is normal. Lungs: No focal consolidation or significant pleural effusion. Bones: Degenerative changes are identified within the thoracic spine. RAD/Chest 1 View IMPRESSION: No acute cardiopulmonary abnormality. Reading Location: [facility]
[2024-12-18 23:09] LABS: Red Blood Cells-Urine 0-5 SEEN /hpf (0-5); Squamous Epithelial Cells - UA 0-5 SEEN /hpf (5-10)
[2024-12-18] MEDS: 0.9% Saline Lock 10 ML Syringe IV (23:48)
[2024-12-18] MEDS: Lactated Ringers 1,000 ML 150 ML IV (23:48)
[2024-12-19] VITALS (23 sets, daily range): BP systolic 87–150; BP diastolic 51–97; PULSE 79–105; RESP 12–24; TEMP 36.1–37.1; O2SAT 92–100; BMI 38.3
--- NOTE | 2024-12-19 01:05 | ECHOD_ITS ---
Reason For Study Reason For Study: TIA/CVA Procedure This was a 2D Doppler, Color Flow transthoracic echocardiogram. Exam performed portable in ICU/CCU. Left Ventricle Normal size and thickness. The LV ejection fraction is 65 %. Normal diastology for age. Right Ventricle Normal right ventricle. Atria The left and right atria are normal. Bubble contrast study is negative for PFO/ASD. Mitral Valve Mild focal mitral valve calcification of the anterior leaflet. Trivial mitral valve insufficiency. Tricuspid Valve Normal tricuspid valve. Aortic Valve Trisinus/trileaflet aortic valve. Pulmonic Valve The pulmonic valve is not well visualized. Great Vessels Normal sized aortic root. Pericardium/Pleural No pericardial effusion. Medication Performed a rapid injection of agitated mix of 9 cc saline and 1cc air to assess for atrial septal defect. MMode/2D Measurements & Calculations LVIDd: 3.3 cm IVSd: 0.97 cm Ao root diam: 3.2 cm LVIDs: 1.7 cm LVPWd: 0.90 cm RVDd: 2.9 cm FS: 49.3 % LAV(MOD-bp): 25.5 ml LVAd ap4: 21.5 cm2 LVAd ap2: 20.7 cm2 LAV(MOD-bp) Indexed: 13.1 ml/m2 LVLd ap4: 7.1 cm LVLd ap2: 8.0 cm LAV(MOD-sp2): 25.8 ml EDV(MOD-sp4): 53.5 ml EDV(MOD-sp2): 43.6 ml LAV(MOD-sp4): 21.9 ml EDV(sp4-el): 55.4 ml EDV(sp2-el): 45.8 ml LVAs ap4: 11.3 cm2 LVAs ap2: 8.9 cm2 LVLs ap4: 6.2 cm LVLs ap2: 6.6 cm ESV(MOD-sp4): 17.8 ml ESV(MOD-sp2): 10.5 ml ESV(sp4-el): 17.6 ml ESV(sp2-el): 10.2 ml EF(MOD-sp4): 66.8 % EF(MOD-sp2): 75.8 % EF(sp4-el): 68.2 % SV(MOD-sp4): 35.7 ml SV(MOD-sp2): 33.1 ml SV(sp4-el): 37.8 ml SI(MOD-sp4): 18.3 ml/m2 SI(MOD-sp2): 17.0 ml/m2 LA A4 area: 9.7 cm2 LA dimension(2D): 3.1 cm RA A4 area: 9.1 cm2 Time Measurements MV dec time: 0.18 sec Doppler Measurements & Calculations MV E max cruz: 79.1 cm/sec Lat Peak E' Cruz: 10.7 cm/sec Med Peak E' Cruz: 9.0 cm/sec MV A max cruz: 71.6 cm/sec E/E' lat: 7.4 E/E' med: 8.8 MV E/A: 1.1 MV dec slope: 432.5 cm/sec2 Ao V2 max: 108.2 cm/sec LV V1 max: 81.8 cm/sec Ao max P.7 mmHg LV V1 max P.7 mmHg PA V2 max: 91.1 cm/sec ECHO/Echo Complete Interpretation Summary The LV ejection fraction is 65 %. Bubble contrast study is negative for PFO/ASD. Mild focal mitral valve calcification of the anterior leaflet. Ordering Physician: José Manuel Florez Performed By: Florencia Real RDCS
[2024-12-19 01:15] LABS: Troponin T High Sens 2 HR 11 ng/L (<=14)
[2024-12-19 02:23] LABS: Hematocrit 46.4 % (37-47); Hemoglobin 14.4 g/dL (12.0-15.0); Mean Corp Hgb Conc 31.0 g/dL (32-36); Mean Corpuscular Volume 95.9 fL (81-99); Mean Platelet Vol. 9.2 fl (6.2-12.0); Platelet Count 273 K/mm3 (150-450); RBC Distribution Width CV 12.9 % (11.6-14.6); RBC Distribution Width SD 45.1 fl (35.1-43.9); Red Blood Count 4.84 M/mm3 (4.2-5.4); White Blood Count 12.8 K/mm3 (4.4-11.0)
[2024-12-19 02:42] LABS: Troponin T High Sens 4 HR 11 ng/L (<=14)
[2024-12-19 03:32] LABS: BETA-HYDROXYBUTYRATE 4.6 mmol/L (0.0-0.3)
[2024-12-19 03:45] LABS: Anion Gap 23 (5-15); BUN 36 mg/dL (4-19); BUN/Creat Ratio 38.1 RATIO (10-20); Calcium,Total 8.9 mg/dL (7.6-11.0); Carbon Dioxide 16.1 mmol/L (21.0-32.0); Chloride 104 mmol/L (98-108); Estimated Creatinine Clearance 65.04 ml/min (50-250); Glucose 220 mg/dL (70-99); Potassium 4.4 mmol/L (3.3-5.1)
--- NOTE | 2024-12-19 03:49 | PN.HOSP_ITS ---
Hospitalist Note On further review of patient labs, has bicarb 19.6 and anion gap of 21. Has 150 ketones in the urine as well. Blood glucose only 192 but patient is on an SGLT2 inhibitor which puts her at risk for euglycemic DKA. Beta-hydroxybutyrate ordered and came back elevated at 4.6 consistent with DKA. Will transfer patient to the ICU and initiate DKA protocol with insulin drip and D5 half- normal saline at 150 cc/hr with BMP checks every 4 hours.
[2024-12-19 03:57] LABS: Cholesterol 89 mg/dL (<=200); Low Density Lipoprotein Calc. 38 mg/dL; Triglycerides 61 mg/dL; Very Low Density Lipoprotein 12 mg/dL (5-40); cholesterol:hdl ratio screen 2.33
[2024-12-19] MEDS: 0.9% Saline Lock 10 ML Syringe IV ×2 (06:05→06:33)
[2024-12-19] MEDS: Dext 5%-0.45% NS 1,000 ML 150 ML IV ×2 (06:05→12:51)
[2024-12-19] MEDS: Insulin Lispro 100 UNIT in 0.9% Normal Saline (100mL Bag) 99 ML 9.5 UNIT CONT INF (06:06)
--- NOTE | 2024-12-19 06:50 | PN.HOSP_ITS ---
Reason for Visit Reason for Visit: Diagnoses Unspecified symptoms and signs involving the nervous system (12/18/24) Subjective Subjective Patient fatigued and lethargic, answering questions appropriately but not following commands well possibly secondary to lethargy and reporting pain in her arms and legs as well as abdomen although soft and nontender. Patient remains on insulin drip for DKA treatment. Patient denies fevers, chills, nausea, emesis, chest pain or dyspnea. Objective Data Objective Data Vital Signs: Vital Signs Temp Pulse Resp BP Pulse Ox O2 Del Method O2 Flow Rate 97.0 F L 104 H 19 H 139/64 H 93 Room Air 3 12/19/24 06:00 12/19/24 06:30 12/19/24 06:30 12/19/24 06:30 12/19/24 06:30 12/19/24 06:30 12/18/24 21:04 Oxygen Flow Rate (L/min) 3 Oxygen Delivery Method Room Air Weight: 209 lb 14.081 oz Body Mass Index (BMI) 38.3 Intake & Output: Intake and Output for Last 24 Hours 12/17/24 12/18/24 12/19/24 23:59 23:59 23:59 Intake Total 0 / 0 910 / 910 Output Total 0 / 0 550 / 550 Balance 0 / 0 360 / 360 Lab / Micro Data 12/19/24 02:15 12/19/24 07:50 Labs: Laboratory Results - last 24 hr 12/18/24 20:00: WBC 13.1 H, RBC 5.38, Hgb 16.0 H, Hct 51.3 H, MCV 95.4, MCH 29.7, MCHC 31.2 L, RDW Std Deviation 44.7 H, RDW Coeff of Luis Enrique 12.8, Plt Count 295, MPV 9.3, Immature Gran % (Auto) 0.300, Neut % (Auto) 95.7 H, Lymph % (Auto) 1.4 L, [place] % (Auto) 2.0, Eos % (Auto) 0.4, Baso % (Auto) 0.2, Absolute Neuts (auto) 12.5 H, Absolute Lymphs (auto) 0.18 L, Nucleated RBC % 0, PT 13.5, INR 1.0, APTT 22.4 L, Sodium 143, Potassium 4.4, Chloride 102, Carbon Dioxide 19.6 L , Anion Gap 21 H, BUN 36 H, Creatinine 0.90, Estim Creat Clear Calc 58.39, Est GFR (MDRD) Non-Af 71, BUN/Creatinine Ratio 40.2 H, Glucose 192 H, Hemoglobin A1c 7.4 H, Calcium 9.3, Troponin T High Sens 10, TSH 1.520 12/18/24 22:25: Urine Color Yellow, Urine Clarity Clear, Urine pH 6.0, Ur Specific [place] 1.015, Urine Protein 30 H, Urine Glucose (UA) 1000 H, Urine Ketones 150 A*, Urine Occult Blood Negative, Urine Nitrite Negative, Urine Bilirubin Negative, Urine Urobilinogen Normal, Ur Leukocyte Esterase Negative, Urine RBC 0-5 SEEN, Urine WBC 0-5 SEEN, Ur Squamous Epith Cells 0-5 SEEN, Urine Bacteria RARE, Urine Mucus 0 SEEN 12/18/24 23:53: Troponin T Hi Sens 2 Hr 11 12/19/24 02:15: WBC 12.8 H, RBC 4.84, Hgb 14.4, Hct 46.4, MCV 95.9, MCH 29.8, M CHC 31.0 L, RDW Std Deviation 45.1 H, RDW Coeff of Luis Enrique 12.9, Plt Count 273, MPV 9.2, Sodium 143, Potassium 4.4, Chloride 104, Carbon Dioxide 16.1 L, Anion Gap 23 H, BUN 36 H, Creatinine 0.94, Estim Creat Clear Calc 65.04, Est GFR (MDRD) Non-Af 67, BUN/Creatinine Ratio 38.1 H, Glucose 220 H, Calcium 8.9, Troponin T Hi Sens 4Hr 11, Triglycerides 61, Cholesterol 89, LDL Cholesterol, Calc 38, VLDL Cholesterol 12, HDL Cholesterol 38 L, Cholesterol/HDL Ratio 2.33, b- Hydroxybutyric mmol/L 4.6 H 12/19/24 06:04: POC Glucose 184 H Radiography Diagnostic Testing: Radiology Impression Brain CT 12/18/24 21:00 IMPRESSION: 1. No definite evidence of an acute intracranial abnormality. There is hypodensity throughout the white matter suggestive of chronic small vessel ischemic disease, and which limits evaluation for acute ischemia. Consider MRI if there is persistent concern. 2. Slight thickening in the soft tissues of the right forehead, correlate with findings on exam. The critical information above was relayed directly by me by telephone to Gamaliel Banks on 12/18/2024 at 9:13 pm with readback verification. Reading Location: [id number] Chest X-Ray 12/18/24 22:50 IMPRESSION: No acute cardiopulmonary abnormality. Reading Location: [facility] Physical Exam Narrative Physical Examination: General: Patient is awake but not markedly alert, not answering orientation questions but is able to tell us what is bothering her and how she is feeling with specific appropriate answers but does report that pretty much every single thing is hurting including her extremities and abdomen. Skin: Normal color, normal turgor, no icterus, no cyanosis except occasional stage ecchymoses, abrasion. HEENT: AT/NC, EOMI, PERRLA, moderately dry MM, no carotid bruits or JVD noted. Lungs: Mildly diminished, greater bases, poor effort, no rales, ronchi or wheezing. Heart: Regular rate and rhythm; no gallop, rub audible. Abdomen: Soft, generalized discomfort with palpation but no rebound or guarding, no marked distention, mildly hyperactive BS. Extremities: No cyanosis, no clubbing, no marked distal edema. Neurological: Patient awake,, not markedly alert, orientation as noted, cognitive function per discussion with facility not baseline intact; pupils equally reactive to light and accommodation, cranial nerves grossly normal, moving all 4 extremities but reporting extremity pain this very altered but no specific focal deficit, strength severely globally decreased, not following request for finger-nose and [id number] or strength assessment, reports sensation intact. Psychiatric: Affect appears flat, fatigued, reporting diffuse pain, no acute evidence of depressive or anxiety feelings but does have underlying history. Assessment & Plan Assessment/Plan (1) Stroke-like symptoms: PLAN: Plan The patient is a 64 y/o F w/ PMHx: Diabetes mellitus type II, CKD stage II per GFR trending, Obesity, GERD, Hypothyroidism, Anxiety and Depression, GERD, Parkinson's disease, HTN, HLD who presents to the [facility] ED on 12/18/24 with history of slurred speech and concern for facial droop prompting ED evaluation with initial NIH stroke score of 4 via neurology with stroke alert with noted mild leukocytosis and low-grade fever in the ED concurrently in addition to evidence of DKA. #1. Encephalopathy, slurred speech, transient facial droop concerning for CVA: CT head with no acute intracranial finding. Patient admitted to the ICU given concurrent #2, pending MRI of the brain and MRA of the head and neck, will continue to allow permissive HTN, given current mentation n.p.o. status maintained, will transition to CO aspirin, will give an additional 1 L of IV fluids given #2 concurrently, maintain on aspiration and fall precautions. Magnesium 1.9, FLP with triglycerides 61, total cholesterol 89, LDL 38, VLDL 12, HDL 38, TSH 1.520, hemoglobin A1c 7.4%. Neurology consulted. #2. DKA w/ Diabetes mellitus type II: Will continue on insulin drip, check serial K+, glucose w/ IVF changes pending these levels, serial chemistry, obtain mag, phos daily w/ repletion as needed, transition to home SC regimen when gap closed w/ overlap on drip, nutrition consultation. Hemoglobin A1c 7.4%. Possibly contributing to encephalopathy #1 presentation. Clarified with staff IVFs in the ED, will given an additional 2L NC as this may have been delayed. #3. Leukocytosis with lymphopenia with low-grade fever, possibly viral syndrome: Respiratory viral panel negative, chest x-ray with no acute concerning findings, urinalysis with no obvious evidence of UTI, procalcitonin requested, we will continue to manage conservatively however if concerns arise certainly may overlap with broad-spectrum antibiotic therapy. #4. Hypertension: Given presentation will maintain permissive hypertension with urine agents per stroke protocol. #5. Hyperlipidemia: Will continue statin therapy, FLP as noted. #6. Hypothyroidism: Will continue patient home levothyroxine regimen, TSH 1.520. #7. Chronic Kidney Disease Stage II per GFR trendin/0.94, GFR 67, has remained consistent with stage II since presentation, baseline renal function 0.7-0.9, continue to trend. #8. Obesity: Weight loss and lifestyle changes encouraged. #9. Parkinson disease with associated dementia with unclear behavioral disturbance history: Complicates presentation, will continue patient home carbidopa-levodopa and pimavanserin regimen. #10. Anxiety and Depression: Will continue patient home mirtazapine regimen. #11. GERD: Continue home PPI. #12. DVT Prophylaxis: Heparin. #13. CODE status: Full Code. Charges/Coding Visit Charges Inpatient E&M: 13988 Subs Hosp L3 NIHSS NIHSS Nursing Documentation NIHSS Nursing Documentation: NIHSS: Ischemic Stroke/TIA Start: 12/18/24 23:05 Text: For PCU Patients: NIH and Neuro Check every 4 Status: Active hours, PRN and with change in RN caregiver. Freq: [id number] Protocol: Activity Type Activity Date Activity User E-sign Co-sign Detail Recorded Client Recorded Date Recorded By Document 12/19/24 06:00 EY [id number] 12/19/24 06:25 EY 12/19/24 06:00 NIH Stroke Scale [NIHSS] A score of 0 is normal or asymptomatic . Total possible score is 42. Inpatient: RN or Physician to activate a stroke alert for onset of new stroke symptoms or with NIHSS increase >/= 3 points. Following change in neurological status, NIHSS will be performed per physician order or more frequently PRN. -1a. Level of Consciousness 1 - Not alert; Arousable by minor stimuli to obey, answer & respond -1b. LOC Questions 1 - Answers ONE question correctly -1c. LOC Commands 1 - Performs ONE task correctly -2. Best Gaze 0 - Normal -4. Facial Palsy 1 - Minor paralysis ( flattened nasolabial fold , asymmetry on smiling) -5a. Left Arm 1 - Drift; arm drifts downward but doesn?t hit the bed -5b. Right Arm 1 - Drift; arm drifts downward but doesn?t hit the bed -6a. Left Leg 3 - No effort against gravity ; leg falls to bed immediately -6b. Right Leg 3 - No effort against gravity ; leg falls to bed immediately -7. Limb Ataxia 2 - Present in 2 limbs -8. Sensory 0 - Normal; no sensory loss -9. Best Language 0 - No aphasia; normal -10. Dysarthria 1 = Mild-to- moderate dysarthria; -11. Extinction and Inattention 0 - No abnormality -Total 15 Query Text:A score of 0 is normal or asymptomatic. Total possible score is 42 . ED: Notify Physician for NIHSS increase by > / = 3 points. Inpatient: RN or Physician to activate a stroke alert for NIHSS increase of > / = 3 points.
[2024-12-19 07:38] LABS: Magnesium 1.9 mg/dL (1.5-2.2)
[2024-12-19 08:53] LABS: Anion Gap 17 (5-15); BUN 34 mg/dL (4-19); BUN/Creat Ratio 33.0 RATIO (10-20); Calcium,Total 9.1 mg/dL (7.6-11.0); Carbon Dioxide 21.2 mmol/L (21.0-32.0); Chloride 106 mmol/L (98-108); Estimated Creatinine Clearance 59.36 ml/min (50-250); Glucose 149 mg/dL (70-99); Potassium 3.3 mmol/L (3.3-5.1)
[2024-12-19 09:20] LABS: Procalcitonin 0.49 ng/mL (<=0.10)
[2024-12-19] MEDS: 0.9% Normal Saline (1000mL) 1,000 ML 999 ML IV ×2 (09:26→11:25)
[2024-12-19] MEDS: Potassium Chloride 10mEq/100mL 10 MEQ/100 ML IV.SOLN. 100 MEQ IV BOLUS ×2 (09:39→10:45)
[2024-12-19] MEDS: 0.9% Normal Saline (1000mL) 1,000 ML 125 ML IV ×2 (12:51→20:24)
--- NOTE | 2024-12-19 13:17 | NEURO.PNOTE ---
Assessment and Plan: Neuro Assessment/Plan Telestroke Progress Note (Audio-video interface) 64 y/o woman with h/o dementia due to chronic whole body pain, Parkinson's disease, hypertension, hyperlipidemia and type 2 diabetes p/w altered mental state, dysarthria and transient left facial droop. At baseline, lives in assisted living for the past 6 years or so, needs assistance to ambulate, will otherwise use a wheelchair. mRS-4. Typically does not know the month or age. CT brain- no acute intracranial process with small vessel disease. Due to contrast allergy, CTA deferred. White count of 13 noticed. TNK not administered due to minor symptoms. Overnight, got admitted to ICU for management of DKA. LDL-38. A1c-7.4. Today, patient seems lethargic, wakes up promptly and started grimaces and cursing, seems to be in pain and moving all extremities on sternal rub. No obvious facial droop. Difficult to assess as patient is not cooperative. Diagnosis: Metabolic Encephalopathy in the setting of DKA and stroke recrusdesence. Needs to rule out stroke given difficult exam to assess Plan: Continue ASA and statin. Manage DKA. Metabolic/infectious workup. Follow up MRI brain along with MRA head and neck and if unable to obtain due to mental state then obtain repeat CT head today and follow up carotid doppler. Follow up TTE. OT/PT/SPEECH THERAPY DIRECTOR. Control of vascular risk factors. I personally attended this patient and spent a total time of 30 minutes evaluating this patient including clinical assessment, review of chart, medical history imaging, and determining appropriate treatment and workup. Subject: Neurology Subjective 64 y/o woman with h/o dementia due to chronic whole body pain, Parkinson's disease, hypertension, hyperlipidemia and type 2 diabetes p/w altered mental state, dysarthria and transient left facial droop. At baseline, lives in assisted living for the past 6 years or so, needs assistance to ambulate, will otherwise use a wheelchair. mRS-4. Typically does not know the month or age. CT brain- no acute intracranial process with small vessel disease. Due to contrast allergy, CTA deferred. White count of 13 noticed. TNK not administered due to minor symptoms. Overnight, got admitted to ICU for management of DKA. LDL-38. A1c-7.4. Today, patient seems lethargic, wakes up promptly and started grimaces and cursing, seems to be in pain and moving all extremities on sternal rub. No obvious facial droop. Difficult to assess as patient is not cooperative. EEG Results Procedure Details EEG Procedure Details: AMADOR IVORY is a 64 year old F with a past medical history of , who presents for evaluation of Electroencephalogram on DATE at TIME Objective Data Objective Data Vital Signs: Vital Signs Temp Pulse Resp BP Pulse Ox O2 Del Method O2 Flow Rate 98.7 F 82 12 117/69 98 Room Air 3 12/19/24 08:00 12/19/24 10:00 12/19/24 10:00 12/19/24 10:00 12/19/24 10:12/19/24 10:00 12/18/24 21:04 Oxygen Flow Rate (L/min) 3 Oxygen Delivery Method Room Air Weight: 95.2 kg Body Mass Index (BMI) 38.3 Intake & Output: Intake and Output for Last 24 Hours 12/17/24 12/18/24 12/19/24 23:59 23:59 23:59 Intake Total 0 / 0 4410.90 / 4410.90 Output Total 0 / 0 550 / 550 Balance 0 / 0 3860.90 / 3860.90 Lab / Micro Data 12/19/24 02:15 12/19/24 07:50 Labs: Laboratory Results - last 24 hr 12/18/24 20:00: WBC 13.1 H, RBC 5.38, Hgb 16.0 H, Hct 51.3 H, MCV 95.4, MCH 29.7, MCHC 31.2 L, RDW Std Deviation 44.7 H, RDW Coeff of Luis Enrique 12.8, Plt Count 295, MPV 9.3, Immature Gran % (Auto) 0.300, Neut % (Auto) 95.7 H, Lymph % (Auto) 1.4 L, [place] % (Auto) 2.0, Eos % (Auto) 0.4, Baso % (Auto) 0.2, Absolute Neuts (auto) 12.5 H, Absolute Lymphs (auto) 0.18 L, Nucleated RBC % 0, PT 13.5, INR 1.0, APTT 22.4 L, Sodium 143, Potassium 4.4, Chloride 102, Carbon Dioxide 19.6 L, Anion Gap 21 H, BUN 36 H, Creatinine 0.90, Estim Creat Clear Calc 58.39, Est GFR (MDRD) Non-Af 71, BUN/Creatinine Ratio 40.2 H, Glucose 192 H, Hemoglobin A1c 7.4 H, Calcium 9.3, Troponin T High Sens 10, TSH 1.520 12/18/24 22:25: Urine Color Yellow, Urine Clarity Clear, Urine pH 6.0, Ur Specific [place] 1.015, Urine Protein 30 H, Urine Glucose (UA) 1000 H, Urine Ketones 150 A*, Urine Occult Blood Negative, Urine Nitrite Negative, Urine Bilirubin Negative, Urine Urobilinogen Normal, Ur Leukocyte Esterase Negative, Urine RBC 0-5 SEEN, Urine WBC 0-5 SEEN, Ur Squamous Epith Cells 0-5 SEEN, Urine Bacteria RARE, Urine Mucus 0 SEEN 12/18/24 23:53: Troponin T Hi Sens 2 Hr 11 12/19/24 02:15: WBC 12.8 H, RBC 4.84, Hgb 14.4, Hct 46.4, MCV 95.9, MCH 29.8, MCHC 31.0 L, RDW Std Deviation 45.1 H, RDW Coeff of Luis Enrique 12.9, Plt Count 273, MPV 9.2, Sodium 143, Potassium 4.4, Chloride 104, Carbon Dioxide 16.1 L, Anion Gap 23 H, BUN 36 H, Creatinine 0.94, Estim Creat Clear Calc 65.04, Est GFR (MDRD) Non-Af 67, BUN/Creatinine Ratio 38.1 H, Glucose 220 H, Calcium 8.9, Phosphorus 4.7 H, Magnesium 1.9, Troponin T Hi Sens 4Hr 11, Triglycerides 61, Cholesterol 89, LDL Cholesterol, Calc 38, VLDL Cholesterol 12, HDL Cholesterol 38 L, Cholesterol/HDL Ratio 2.33, b-Hydroxybutyric mmol/L 4.6 H 12/19/24 06:04: POC Glucose 184 H 12/19/24 07:01: POC Glucose 200 H 12/19/24 07:50: Sodium 144, Potassium 3.3, Chloride 106, Carbon Dioxide 21.2, Anion Gap 17 H, BUN 34 H, Creatinine 1.03, Estim Creat Clear Calc 59.36, Est GFR (MDRD) Non-Af 61, BUN/Creatinine Ratio 33.0 H, Glucose 149 H, Calcium 9.1, Procalcitonin 0.49 H 12/19/24 07:59: POC Glucose 143 H 12/19/24 09:04: POC Glucose 106 12/19/24 10:03: POC Glucose 80 12/19/24 11:07: POC Glucose 64 L 12/19/24 12:05: POC Glucose 93 Micro: Microbiology 12/19/24 02:15 Mucosa - Nasopharyngeal Respiratory Panel (PCR) - Final Radiography Diagnostic Testing: Radiology Impression Brain CT 12/18/24 21:00 IMPRESSION: 1. No definite evidence of an acute intracranial abnormality. There is hypodensity throughout the white matter suggestive of chronic small vessel ischemic disease, and which limits evaluation for acute ischemia. Consider MRI if there is persistent concern. 2. Slight thickening in the soft tissues of the right forehead, correlate with findings on exam. The critical information above was relayed directly by me by telephone to Gamaliel Banks on 12/18/2024 at 9:13 pm with readback verification. Reading Location: [facility] Chest X-Ray 12/18/24 22:50 IMPRESSION: No acute cardiopulmonary abnormality. Reading Location: [facility] NIHSS NIHSS Nursing Documentation NIHSS Nursing Documentation: NIHSS: Ischemic Stroke/TIA Start: 12/18/24 23:05 Text: For PCU Patients: NIH and Neuro Check every 4 Status: Active hours, PRN and with change in RN caregiver. Freq: [id number] Protocol: Activity Type Activity Date Activity User E-sign Co-sign Detail Recorded Client Recorded Date Recorded By Document 12/19/24 10:00 ARB [id number] 12/19/24 10:06 ARB 12/19/24 10:00 NIH Stroke Scale [NIHSS] A score of 0 is normal or asymptomatic . Total possible score is 42. Inpatient: RN or Physician to activate a stroke alert for onset of new stroke symptoms or with NIHSS increase >/= 3 points. Following change in neurological status, NIHSS will be performed per physician order or more frequently PRN. -1a. Level of Consciousness 1 - Not alert; Arousable by minor stimuli to obey, answer & respond -1b. LOC Questions 1 - Answers ONE question correctly -1c. LOC Commands 1 - Performs ONE task correctly -2. Best Gaze 0 - Normal -4. Facial Palsy 1 - Minor paralysis ( flattened nasolabial fold , asymmetry on smiling) -5a. Left Arm 1 - Drift; arm drifts downward but doesn?t hit the bed -5b. Right Arm 1 - Drift; arm drifts downward but doesn?t hit the bed -6a. Left Leg 3 - No effort against gravity ; leg falls to bed immediately -6b. Right Leg 3 - No effort against gravity ; leg falls to bed immediately -7. Limb Ataxia 2 - Present in 2 limbs -8. Sensory 0 - Normal; no sensory loss -9. Best Language 0 - No aphasia; normal -10. Dysarthria 1 = Mild-to- moderate dysarthria; -11. Extinction and Inattention 0 - No abnormality -Total 15 Query Text:A score of 0 is normal or asymptomatic. Total possible score is 42 . ED: Notify Physician for NIHSS increase by > / = 3 points. Inpatient: RN or Physician to activate a stroke alert for NIHSS increase of > / = 3 points. NIHSS 1a. Level of Consciousness: 2 - Not alert: Repeated strong/painful stimuli to arouse or obtunded; 1b. LOC Questions: 2 - Answers NEITHER question correctly 1c. LOC Commands: 2 - Performs NEITHER task correctly 2. Best Gaze: 0 - Normal 3. Visual: 0 - No visual loss 4. Facial Palsy: 0 - Normal symmetrical movements 5a. Left Arm: 2 - Some effort against gravity; 5b. Right Arm: 2 - Some effort against gravity; 6a. Left Le - Some effort against gravity; 6b. Right Le - Some effort against gravity; 7. Limb Ataxia: 0 - Absent 8. Sensory: 0 - Normal; no sensory loss 9. Best Language: 2 - Severe aphasia; 10. Dysarthria: 1 = [id number] dysarthria; 11. Extinction and Inattention: 0 - No abnormality Total: 17
[2024-12-19 13:36] LABS: Anion Gap 8 (5-15); BUN 26 mg/dL (4-19); BUN/Creat Ratio 30.0 RATIO (10-20); Calcium,Total 7.3 mg/dL (7.6-11.0); Carbon Dioxide 20.7 mmol/L (21.0-32.0); Chloride 110 mmol/L (98-108); Estimated Creatinine Clearance 70.27 ml/min (50-250); Glucose 106 mg/dL (70-99); Potassium 6.8 mmol/L (3.3-5.1)
[2024-12-19 17:49] LABS: Anion Gap 9 (5-15); BUN 18 mg/dL (4-19); BUN/Creat Ratio 28.7 RATIO (10-20); Carbon Dioxide 18.3 mmol/L (21.0-32.0); Chloride 114 mmol/L (98-108); Estimated Creatinine Clearance 95.53 ml/min (50-250); Glucose 178 mg/dL (70-99); Potassium 3.5 mmol/L (3.3-5.1)
[2024-12-19 17:52] LABS: Calcium,Total 6.6 mg/dL (7.6-11.0)
--- NOTE | 2024-12-19 18:40 | PCM.PN.BLA ---
Progress Note GAP closed x 2, bicarb appropriate, will transition of insulin drip, will start low dose lantus given only on oral until oral intake appropriate, maintain on q 6 hour accu checks and ISS. Will trial oral intake and if appropriate maintain on ADA diet. If passes then may start to add her oral regimen back.
[2024-12-19] MEDS: Insulin Glargine-YFGN 100 UNIT/ML Pen SC (20:07)
[2024-12-20] VITALS (8 sets, daily range): BP systolic 96–169; BP diastolic 57–98; PULSE 70–79; RESP 15–21; TEMP 36.7–36.8; O2SAT 91–97; BMI 30.2
[2024-12-20] MEDS: 0.9% Normal Saline (1000mL) 1,000 ML 125 ML IV ×2 (04:28→11:42)
[2024-12-20 05:24] LABS: AST(SGOT) 22 U/L (<=31); Alanine Aminotransfer ALT/SGPT 22 U/L (<=34); Albumin, Serum 3.1 g/dL (3.4-4.8); Alkaline Phosphatase 42 U/L (35-104); Anion Gap 10 (5-15); BUN 14 mg/dL (4-19); BUN/Creat Ratio 21.6 RATIO (10-20); Calcium,Total 8.0 mg/dL (7.6-11.0); Carbon Dioxide 20.0 mmol/L (21.0-32.0); Chloride 115 mmol/L (98-108); Estimated Creatinine Clearance 80.22 ml/min (50-250); Globulin 2.3 g/dL (2.2-4.2); Glucose 112 mg/dL (70-99); Potassium 3.6 mmol/L (3.3-5.1)
--- NOTE | 2024-12-20 08:28 | PCM.PN.HOSP ---
Reason for Visit Chief Complaint: Slurred speech with facial droop Subjective Subjective Patient is a 64-year-old lady who presented with slurred speech speech and facial droop. Was also found to have markedly elevated glucose levels consistent with DKA admitted to monitored bed for subsequent management Objective Data Objective Data Vital Signs: Vital Signs Temp Pulse Resp BP Pulse Ox O2 Del Method O2 Flow Rate 98.0 F 77 21 H 132/71 H 97 Room Air 3 12/20/24 00:00 12/20/24 06:00 12/20/24 06:00 12/20/24 06:00 12/20/24 07:52 12/20/24 07:52 12/18/24 21:04 Oxygen Flow Rate (L/min) 3 Oxygen Delivery Method Room Air Weight: 74.616 kg Body Mass Index (BMI) 30.2 Intake & Output: Intake and Output for Last 24 Hours 12/18/24 12/19/24 12/20/24 23:59 23:59 23:59 Intake Total 0 / 0 6580.90 / 6580.90 1000 / 1000 Output Total 0 / 0 1850 / 1850 1250 / 1250 Balance 0 / 0 4730.90 / 4730.90 -250 / -250 Lab / Micro Data 12/19/24 02:15 12/20/24 04:32 Labs: Laboratory Results - last 24 hr 12/19/24 07:50: Sodium 144, Potassium 3.3, Chloride 106, Carbon Dioxide 21.2, Anion Gap 17 H, BUN 34 H, Creatinine 1.03, Estim Creat Clear Calc 59.36, Est GFR (MDRD) Non-Af 61, BUN/Creatinine Ratio 33.0 H, Glucose 149 H, Calcium 9.1, Procalcitonin 0.49 H 12/19/24 09:04: POC Glucose 106 12/19/24 10:03: POC Glucose 80 12/19/24 11:07: POC Glucose 64 L 12/19/24 12:05: POC Glucose 93 12/19/24 12:20: Sodium 139, Potassium 6.8 H*, Chloride 110 H, Carbon Dioxide 20.7 L, Anion Gap 8, BUN 26 H, Creatinine 0.87, Estim Creat Clear Calc 70.27, Est GFR (MDRD) Non-Af 74, BUN/Creatinine Ratio 30.0 H, Glucose 106 H, Calcium 7.3 L 12/19/24 13:41: POC Glucose 91 12/19/24 14:32: POC Glucose 93 12/19/24 15:24: Sodium Cancelled, Potassium Cancelled, Chloride Cancelled, Carbon Dioxide Cancelled, Anion Gap Cancelled, BUN Cancelled, Creatinine Cancelled, Estim Creat Clear Calc Cancelled, Est GFR (MDRD) Non-Af Cancelled, BUN/Creatinine Ratio Cancelled, Glucose Cancelled, Calcium Cancelled 12/19/24 16:50: Sodium 142, Potassium 3.5, Chloride 114 H, Carbon Dioxide 18.3 L, Anion Gap 9, BUN 18, Creatinine 0.64 L, Estim Creat Clear Calc 95.53, Est GFR (MDRD) Non-Af 99, BUN/Creatinine Ratio 28.7 H, Glucose 178 H, Calcium 6.6 L 12/19/24 17:28: POC Glucose 122 H 12/19/24 20:07: POC Glucose 130 H 12/20/24 04:32: Sodium 145, Potassium 3.6, Chloride 115 H, Carbon Dioxide 20.0 L, Anion Gap 10, BUN 14, Creatinine 0.67 L, Estim Creat Clear Calc 80.22, Est GFR (MDRD) Non-Af 98, BUN/Creatinine Ratio 21.6 H, Glucose 112 H, Calcium 8.0, Total Bilirubin 0.19, AST 22, ALT 22, Alkaline Phosphatase 42, Total Protein 5.4 L, Albumin 3.1 L, Globulin 2.3, Albumin/Globulin Ratio 1.3 12/20/24 04:40: POC Glucose 114 H Micro: Microbiology 12/19/24 02:15 Mucosa - Nasopharyngeal Respiratory Panel (PCR) - Final Physical Exam Narrative GENERAL: Not comprehensible HEENT: Atraumatic; normocephalic EYES; Anicteric, Normal Conjunctiva NECK; supple, normal thyroid, RESPIRATORY: Diminished to auscultation CARDIOVASCULAR: Regular S1 S2, GI: soft, normoactive bowel sounds, : No Renal angle tenderness; EXTREMITIES: No edema, no clubbing, MUSCULOSKELETAL: no muscle wasting NEURO: Awake; no lateralizing signs. SKIN: No Rash PSYCH; Flat affect Assessment & Plan Assessment/Plan (1) Stroke-like symptoms: PLAN: Plan Patient is a 64-year-old lady who presented with slurred speech speech and facial droop. Was also found to have markedly elevated glucose levels consistent with DKA admitted to monitored bed for subsequent management 1. Acute metabolic encephalopathy ? Secondary to DKA. Patient also presented with strokelike symptoms. Admitted to the intensive care unit with treatment of the underlying clinical etiology. Patient was seen in consultation by [facility] recommended for patient to undergo subsequent evaluation with MRI of the brain as well as MRA of head and neck. Also requested for transthoracic echo in addition to occupational and physical therapy as well as speech eval 2. Diabetic ketoacidosis ? Managed with IV fluid insulin with monitoring of electrolyte resolved 3. Diabetes mellitus type 2 ? Patient presented with DKA which has since resolved patient home medication except for oral agents resumed placed on Accu-Cheks AC and at bedtime with sliding scale coverage 4. Essential hypertension ? Permissive hypertension protocol was followed on admission 5. Dyslipidemia ?Patient is on statin therapy, continued at home dose 6. Hypothyroidism ? Patient is on levothyroxine home dose continued 7. Class I obesity with BMI of 31 Plan?complicating care 8. Parkinson disease with associated dementia with unclear behavioral disturbance history: Complicates presentation, patient is on home carbidopa-levodopa and pimavanserin regimen, continue. 9. Leukocytosis ? No infectious etiology monitoring with daily CBC with differential 10. Depression with anxiety ? Patient is on mirtazapine at night 11. GERD ? Patient is a 12. DVT prophylaxis ? Subcu heparin Charges/Coding Visit Charges Inpatient E&M: 67050 Subs Hosp L2 NIHSS NIHSS Nursing Documentation NIHSS Nursing Documentation: NIHSS: Ischemic Stroke/TIA Start: 12/18/24 23:05 Text: For PCU Patients: NIH and Neuro Check every 4 Status: Active hours, PRN and with change in RN caregiver. Freq: [id number] Protocol: Activity Type Activity Date Activity User E-sign Co-sign Detail Recorded Client Recorded Date Recorded By Document 12/20/24 06:00 TD [id number] 12/20/24 06:40 TD 12/20/24 06:00 NIH Stroke Scale [NIHSS] A score of 0 is normal or asymptomatic . Total possible score is 42. Inpatient: RN or Physician to activate a stroke alert for onset of new stroke symptoms or with NIHSS increase >/= 3 points. Following change in neurological status, NIHSS will be performed per physician order or more frequently PRN. -1a. Level of Consciousness 0 - Alert; keenly responsive -1b. LOC Questions 1 - Answers ONE question correctly -1c. LOC Commands 0 - Performs BOTH tasks correctly -2. Best Gaze 0 - Normal -3. Visual 0 - No visual loss -4. Facial Palsy 0 - Normal symmetrical movements -5a. Left Arm 1 - Drift; arm drifts downward but doesn?t hit the bed -5b. Right Arm 1 - Drift; arm drifts downward but doesn?t hit the bed -6a. Left Leg 1 - Drift; leg falls by the end of 5- seconds, but does not hit bed -6b. Right Leg 1 - Drift; leg falls by the end of 5- seconds, but does not hit bed -7. Limb Ataxia 0 - Absent -8. Sensory 0 - Normal; no sensory loss -9. Best Language 2 - Severe aphasia; -10. Dysarthria 1 = Mild-to- moderate dysarthria; -11. Extinction and Inattention 0 - No abnormality -Total 8 Query Text:A score of 0 is normal or asymptomatic. Total possible score is 42 . ED: Notify Physician for NIHSS increase by > / = 3 points. Inpatient: RN or Physician to activate a stroke alert for NIHSS increase of > / = 3 points.
[2024-12-20] MEDS: Insulin Glargine-YFGN 100 UNIT/ML Pen SC ×2 (08:39→21:03)
[2024-12-20] MEDS: Senna/Docusate Sodium 1 Tablet PO (08:44)
[2024-12-20] MEDS: Polyethylene Glycol 3350 17 GM PACKET PO (08:44)
[2024-12-20 14:38] LABS: Hematocrit 41.9 % (37-47); Hemoglobin 12.7 g/dL (12.0-15.0); Immature Granulocytes Count 0.010 X10^3/uL (0.0-0.0); Mean Corp Hgb Conc 30.3 g/dL (32-36); Mean Corpuscular Volume 97.4 fL (81-99); Mean Platelet Vol. 10.0 fl (6.2-12.0); NRBC Flagged by Analyzer 0 % (0-5); Platelet Count 221 K/mm3 (150-450); RBC Distribution Width CV 13.2 % (11.6-14.6); RBC Distribution Width SD 47.3 fl (35.1-43.9); Red Blood Count 4.30 M/mm3 (4.2-5.4); White Blood Count 5.2 K/mm3 (4.4-11.0)
[2024-12-21 04:57] VITALS: BMI 30.2
[2024-12-21 05:15] VITALS: BMI 31.1
[2024-12-21 05:30] VITALS: BP 121/73; PULSE 72; RESP 18; TEMP 36.8; O2SAT 100
[2024-12-21 05:51] LABS: Hematocrit 41.1 % (37-47); Hemoglobin 12.8 g/dL (12.0-15.0); Immature Granulocytes Count 0.020 X10^3/uL (0.0-0.0); Mean Corp Hgb Conc 31.1 g/dL (32-36); Mean Corpuscular Volume 94.5 fL (81-99); Mean Platelet Vol. 9.3 fl (6.2-12.0); NRBC Flagged by Analyzer 0 % (0-5); Platelet Count 219 K/mm3 (150-450); RBC Distribution Width CV 13.0 % (11.6-14.6); RBC Distribution Width SD 45.0 fl (35.1-43.9); Red Blood Count 4.35 M/mm3 (4.2-5.4); White Blood Count 6.3 K/mm3 (4.4-11.0)
[2024-12-21 06:12] LABS: Anion Gap 11 (5-15); BUN 11 mg/dL (4-19); BUN/Creat Ratio 19.6 RATIO (10-20); Calcium,Total 7.8 mg/dL (7.6-11.0); Carbon Dioxide 20.4 mmol/L (21.0-32.0); Chloride 113 mmol/L (98-108); Estimated Creatinine Clearance 95.73 ml/min (50-250); Glucose 123 mg/dL (70-99); Magnesium 1.8 mg/dL (1.5-2.2); Potassium 3.7 mmol/L (3.3-5.1)
[2024-12-21] MEDS: Potassium Phosphate 40 MM in 0.9% Normal Saline (500mL Bag) 500 ML 62.5 MM IV (07:49)
--- NOTE | 2024-12-21 08:20 | DS.PCM_ITS ---
Providers Date of Admission: 12/19/24 Date of Discharge: 12/21/24 Primary Care Physician: [facility] Consultations 12/18/24 23:05 Consult: Tele-Neurology Routine Consulting Provider: [facility] Reason for Consult: Acute Ischemic Stroke/TIA EMERGENT Consult: No Notified: Yes Date Notified: 12/18/24 Time Notified: 23:21 Method of Notification: Answering Service Nursing Unit Staff Notify [facility] of Tele-Neurology Consult: Yes Reason For Visit: STROKELIKE SYMPTOMS Diagnosis Discharge Diagnosis (1) Stroke-like symptoms: Status: Acute Code(s): R29.90 - Unspecified symptoms and signs involving the nervous system Plan Patient is a 64-year-old lady who presented with slurred speech speech and facial droop. Was also found to have markedly elevated glucose levels consistent with DKA admitted to monitored bed for subsequent management 1. Acute metabolic encephalopathy ? Secondary to DKA. Patient also presented with strokelike symptoms. Admitted to the intensive care unit with treatment of the underlying clinical etiology. Patient was seen in consultation by [facility] recommended for patient to undergo subsequent evaluation with MRI of the brain as well as MRA of head and neck. Also requested for transthoracic echo in addition to occupational and physical therapy as well as speech eval 12/21/2024 patient back to baseline, patient medically stable to be discharged back to her shelter 2. Diabetic ketoacidosis ? Managed with IV fluid insulin with monitoring of electrolyte resolved 3. Diabetes mellitus type 2 ? Patient presented with DKA which has since resolved patient home medication except for oral agents resumed placed on Accu-Cheks AC and at bedtime with sliding scale coverage 4. Essential hypertension ? Permissive hypertension protocol was followed on admission 5. Dyslipidemia ?Patient is on statin therapy, continued at home dose 6. Hypothyroidism ? Patient is on levothyroxine home dose continued 7. Class I obesity with BMI of 31 Plan?complicating care 8. Parkinson disease with associated dementia with unclear behavioral disturbance history: Complicates presentation, patient is on home carbidopa-levodopa and pimavanserin regimen, continue. 9. Leukocytosis ? No infectious etiology monitoring with daily CBC with differential 10. Depression with anxiety ? Patient is on mirtazapine at night 11. GERD ? Patient is a 12. DVT prophylaxis ? Subcu heparin Medications at Discharge Home Medications docusate sodium 100 mg capsule (DOK) 100 mg PO BID Constipation 08/07/17 sennosides 8.6 mg-docusate sodium 50 mg tablet (Senna Plus) 1 tab PO DAILY 01/13/17 Benacalorie 1 packet PO TID PRN intake less than 50% 12/18/24 acetaminophen 500 mg tablet 1,000 mg PO TID PRN fever or pain 12/18/24 amlodipine 2.5 mg tablet 2.5 mg PO DAILY 12/18/24 benztropine 1 mg tablet 1 mg PO DAILY 12/18/24 benztropine 1 mg tablet 1 mg PO QHS 12/18/24 carbidopa 25 mg-levodopa 100 mg tablet 2 tab PO TID 12/18/24 diclofenac sodium 1 % topical gel 4 g topical 4X/DAY karishma knees and right hip 12/18/24 empagliflozin 25 mg tablet (Jardiance) 25 mg PO DAILY 12/18/24 estradiol 0.01% (0.1 mg/gram) vaginal cream 0.5 appful vaginal MOWEFR 12/18/24 estradiol 0.01% (0.1 mg/gram) vaginal cream (Estrace) 0.5 appful vaginal DAILY 12/18/24 fluoride (sodium) 1.1 % dental cream (Denta 5000 Plus) 1 applic dental DAILY 12/18/24 levothyroxine 75 mcg tablet 75 mcg PO DAILY 12/18/24 melatonin 3 mg tablet 3 mg PO QHS 12/18/24 metformin 500 mg tablet,extended release 24 hr 1,000 mg PO BID 12/18/24 mirtazapine 30 mg disintegrating tablet 30 mg PO QHS 12/18/24 multivitamin with minerals-ferrous fumarate 15 mg iron tablet 1 tab PO DAILY 12/18/24 nut.tx.glucose intolerance,soy (Glucerna oral bar) 1 ea PO 4X/DAY 12/18/24 omeprazole 40 mg capsule,delayed release 40 mg PO DAILY 12/18/24 pimavanserin 34 mg capsule (Nuplazid) 34 mg PO DAILY 12/18/24 polyethylene glycol 3350 17 gram/dose oral powder 17 g PO DAILY 12/18/24 potassium chloride 10 mEq tablet,extended release(part/cryst) 10 meq PO DAILY 12/18/24 repaglinide 0.5 mg tablet 0.5 mg PO BID 12/18/24 aspirin 81 mg chewable tablet 81 mg PO BREAKFAST #30 tabs 12/21/24 atorvastatin 40 mg tablet (Lipitor) 40 mg PO QHS #30 tabs 12/21/24 insulin glargine-yfgn 100 unit/mL (3 mL) subcutaneous pen 5 unit (0.05 mL) subcut BID #15 mL 12/21/24 potassium, sodium phosphates 280 mg-160 mg-250 mg oral powder packet 1 packet PO BID #60 ea 12/21/24 Hospital Course Summary of Care Provided Minutes Spent on Discharge: 35 Physical Exam Narrative GENERAL: Patient more interactive compared to previous HEENT: Atraumatic; normocephalic EYES; Anicteric, Normal Conjunctiva NECK; supple, normal thyroid, RESPIRATORY: Diminished to auscultation CARDIOVASCULAR: Regular S1 S2, GI: soft, normoactive bowel sounds, : No Renal angle tenderness; EXTREMITIES: No edema, no clubbing, MUSCULOSKELETAL: no muscle wasting NEURO: Awake; no lateralizing signs. SKIN: No Rash PSYCH; Flat affect Weight / BMI Weight Weight: 76.884 kg Body Mass Index (BMI) 31.1 ABG / Lab / Microbiology Data 12/21/24 05:38 12/21/24 05:38 Laboratory: Laboratory Results - last 24 hr 12/20/24 04:32: WBC 5.2, RBC 4.30, Hgb 12.7, Hct 41.9, MCV 97.4, MCH 29.5, MCHC 30.3 L, RDW Std Deviation 47.3 H, RDW Coeff of Luis Enrique 13.2, Plt Count 221, MPV 10.0, Immature Gran % (Auto) 0.200, Neut % (Auto) 66.0, Lymph % (Auto) 20.3, Bullitt % (Auto) 8.3, Eos % (Auto) 5.0, Baso % (Auto) 0.2, Absolute Neuts (auto) 3.4, Absolute Lymphs (auto) 1.05, Nucleated RBC % 0 12/20/24 13:06: POC Glucose 165 H 12/20/24 17:41: POC Glucose 105 12/20/24 21:02: POC Glucose 133 H 12/21/24 05:33: POC Glucose 125 H 12/21/24 05:38: WBC 6.3, RBC 4.35, Hgb 12.8, Hct 41.1, MCV 94.5, MCH 29.4, MCHC 31.1 L, RDW Std Deviation 45.0 H, RDW Coeff of Luis Enrique 13.0, Plt Count 219, MPV 9.3, Immature Gran % (Auto) 0.300, Neut % (Auto) 76.1 H, Lymph % (Auto) 13.5 L, Bullitt % (Auto) 6.4, Eos % (Auto) 3.5, Baso % (Auto) 0.2, Absolute Neuts (auto) 4.8, Absolute Lymphs (auto) 0.85, Nucleated RBC % 0, Sodium 144, Potassium 3.7, C hloride 113 H, Carbon Dioxide 20.4 L, Anion Gap 11, BUN 11, Creatinine 0.57 L, Estim Creat Clear Calc 95.73, Est GFR (MDRD) Non-Af 102, BUN/Creatinine Ratio 19.6, Glucose 123 H, Calcium 7.8, Phosphorus 1.8 L, Magnesium 1.8 Microbiology: Microbiology 12/19/24 02:15 Mucosa - Nasopharyngeal Respiratory Panel (PCR) - Final Radiography Diagnostic Testing: Radiology Impression Brain MRI 12/18/24 22:20 IMPRESSION: 1. No evidence of acute intracranial pathology. 2. Cerebral atrophy with chronic ischemic white matter disease. 3. Other findings as noted. Reading Location: [place] [address] Echocardiogram 12/19/24 01:05 Interpretation Summary The LV ejection fraction is 65 %. Bubble contrast study is negative for PFO/ASD. Mild focal mitral valve calcification of the anterior leaflet. Ordering Physician: José Manuel Florez Performed By: Florencia Real, [place] D/C Instructions Discharge Activity: Return to Normal Activity Call your doctor if you observe: Fever of 101 or Higher, Shortness of breath, Fainting spells and Chest pain DC O2, CPAP, BIPAP Needs Home O2 Discharge instructions: No Meaningful Use Info Meaningful Use Meaningful Use Diagnoses (Choose all that apply): None applicable Discharge Plan Admission Admit Date/Time: 12/19/24 12:38 Attending Provider: Star Covington Primary Care Provider: Care Physician,No Primary Consulting Providers: Gen Yarbrough; Namrata Del Angel; Jaquelin Ji; Justa Hernandez; Rebecca Parrish; Thor Felix; Heide Apple; Bryan Romano; Ramón Gifford; Jos Robles; Melvina Rollins; Collins Wilkes; Radha Puga; Marisela Rivero; María Curry; Oliver Montelongo; Abhijit Hand; Marcel Ayoub; Ayesha Mckenna; Dhaval Sutton; José Manuel Florez; Ryanne Simons Discharge Orders/Prescriptions Prescriptions: New aspirin 81 mg Tablet,Chewable 81 mg PO BREAKFAST Qty: 30 0RF atorvastatin [Lipitor] 40 mg tablet 40 mg PO QHS Qty: 30 0RF insulin glargine-yfgn 100 unit/mL (3 mL) Insulin Pen 5 unit subcut BID Qty: 15 0RF potassium, sodium phosphates 280-160-250 mg Powder In Packet 1 packet PO BID Qty: 60 0RF Continued sennosides-docusate sodium [Senna Plus] 1 EACH tablet 1 tab PO DAILY docusate sodium [DOK] 100 MG capsule 100 mg PO BID acetaminophen 500 mg tablet 1,000 mg PO TID PRN (Reason: fever or pain) Benacalorie 1 packet PO TID PRN (Reason: intake less than 50%) benztropine 1 mg tablet 1 mg PO QHS fluoride (sodium) [Denta 5000 Plus] 1.1 % cream 1 applic dental DAILY diclofenac sodium 1 % gel 4 g topical 4X/DAY estradiol 0.01 % (0.1 mg/gram) cream 0.5 appful vaginal MOWEFR Glucerna Bar 1 ea PO 4X/DAY amlodipine 2.5 mg tablet 2.5 mg PO DAILY benztropine 1 mg tablet 1 mg PO DAILY carbidopa-levodopa 25-100 mg tablet 2 tab PO TID estradiol [Estrace] 0.01 % (0.1 mg/gram) cream 0.5 appful vaginal DAILY Rx Instructions: for 14 days mirtazapine 30 mg tablet,disintegrating 30 mg PO QHS melatonin 3 mg tablet 3 mg PO QHS omeprazole 40 mg capsule,delayed release(DR/EC) 40 mg PO DAILY levothyroxine 75 mcg tablet 75 mcg PO DAILY polyethylene glycol 3350 17 gram/dose powder 17 g PO DAILY metformin 500 mg tablet extended release 24 hr 1,000 mg PO BID Jardiance 25 mg tablet 25 mg PO DAILY Nuplazid 34 mg capsule 34 mg PO DAILY gwgxkprg-pad-hafgagk fumarate 15 mg iron tablet 1 tab PO DAILY repaglinide 0.5 mg tablet 0.5 mg PO BID potassium chloride 10 mEq tablet,ER particles/crystals 10 meq PO DAILY Discontinued atorvastatin 10 mg tablet 10 mg PO DAILY amlodipine 2.5 mg tablet 2.5 mg PO DAILY carbidopa-levodopa 25-100 mg tablet 2 tab PO TID glipizide 10 mg tablet 10 mg PO BID atorvastatin 10 mg tablet 10 mg PO DAILY diclofenac sodium 1 % gel 4 g topical 4X/DAY glipizide 10 mg tablet 10 mg PO BID Referrals / Follow Up: Star Watters MD [Non-Staff] - Within 1 Week Care Physician,No Primary [Primary Care Provider] - Disposition Disposition (needs filled in before D/C Order can be placed): NonSkilled NH/Intermed Care Charges/Coding Visit Charges Inpatient E&M: 55288 Disch Hosp >30min
[2024-12-21] MEDS: Senna/Docusate Sodium 1 Tablet PO (09:17)
[2024-12-21] MEDS: Polyethylene Glycol 3350 17 GM PACKET PO (09:18)
[2024-12-21] MEDS: Insulin Glargine-YFGN 100 UNIT/ML Pen SC (09:18)
--- NOTE | 2024-12-21 09:24 | CASEMGMT ---
Addendum entered by Fior Gauthier 12/21/24 10:09: SW followed up; pt will d/c on set dose of insulin. SW called assisted staff and left voicemail to update. PITER [place] Original Note: Social Work- SW called and left a voicemail for legal guardian regarding planned discharge. SW called assisted who reports that they will transport pt at discharge. custodial will need to have insulin and syringes/needles and assisted staff will check into ability to administer insulin via sliding scale. If that is problematic, staff will call in and report to nurse for follow up with physician. Group ,ky staff indicate that [facility] is preferred pharmacy; SW changed in system. custodial contact is [phone]. RN updated. Physician updated. PITER [place]
--- NOTE | 2024-12-21 09:24 | CASEMGMT ---
Addendum entered by Fior Gauthier 12/21/24 10:09: SW followed up; pt will d/c on set dose of insulin. SW called skilled nursing staff and left voicemail to update. PITER [place] Original Note: Social Work- SW called and left a voicemail for legal guardian regarding planned discharge. SW called skilled nursing who reports that they will transport pt at discharge. longterm will need to have insulin and syringes/needles and skilled nursing staff will check into ability to administer insulin via sliding scale. If that is problematic, staff will call in and report to nurse for follow up with physician. Group ,or staff indicate that [facility] is preferred pharmacy; SW changed in system. longterm contact is [phone]. RN updated. Physician updated. PITER [place]
[2024-12-21] MEDS: Na Biphos/Potassium Phosphate PACKET 1 PACKET PO (09:25)
[2024-12-21 11:24] VITALS: BP 141/79; PULSE 83; RESP 22; TEMP 36.8; O2SAT 100
--- NOTE | 2024-12-21 11:29 | CASEMGMT ---
Addendum entered by Ashwin Terrell 12/21/24 13:02: [facility] states that there was no copay and that they have delivered the rxs to the bedside. Addendum entered by Ashwin Terrell 12/21/24 11:55: [facility] states that they have received the rxs but have not processed them yet. CM to follow. Original Note: Pt's RN notifies this RN CM that [facility]'s pharmacy will not have Glargine in stock until February. Requested the hospitalist to send insulin rx and pen needles to [facility] at this time. CM and SW to follow.
--- NOTE | 2024-12-21 11:29 | CASEMGMT ---
Addendum entered by Ashwin Terrell 12/21/24 13:02: [facility] states that there was no copay and that they have delivered the rxs to the bedside. Addendum entered by Ashwin Terrell 12/21/24 11:55: [facility] states that they have received the rxs but have not processed them yet. CM to follow. Original Note: Pt's RN notifies this RN CM that [facility]'s pharmacy will not have Glargine in stock until February. Requested the hospitalist to send insulin rx and pen needles to [facility] at this time. CM and SW to follow.
== END 2024-12-21 14:59 | disposition home or self-care (01) | DRG 637 ==
LOC: ED 22:22 → PCU 22:42 → ICU 12-19 05:40
PROVIDERS: Family Medicine; Admitting Provider Hospitalist; Emergency Provider Emergency Medicine; Visit Provider Internal Medicine
DX: E11.10 Type 2 diabetes mellitus with ketoacidosis without coma (principal); G93.41 Metabolic encephalopathy; G20.A1 Parkinson's disease without dyskinesia, without mention of fluctuations; F02.80 Dementia in other diseases classified elsewhere, unspecified severity, without behavioral disturbance, psychotic disturbance, mood disturbance, and anxiety; E03.9 Hypothyroidism, unspecified; I12.9 Hypertensive chronic kidney disease with stage 1 through stage 4 chronic kidney disease, or unspecified chronic kidney disease; E11.22 Type 2 diabetes mellitus with diabetic chronic kidney disease; F32.A Depression, unspecified; E66.811 Obesity, class 1; D72.810 Lymphocytopenia; E78.5 Hyperlipidemia, unspecified; N18.2 Chronic kidney disease, stage 2 (mild); K21.9 Gastro-esophageal reflux disease without esophagitis; F41.9 Anxiety disorder, unspecified; Z68.38 Body mass index [BMI] 38.0-38.9, adult; G89.29 Other chronic pain; R47.81 Slurred speech; R47.1 Dysarthria and anarthria; Z79.82 Long term (current) use of aspirin; Z79.84 Long term (current) use of oral hypoglycemic drugs; E66.812 Obesity, class 2; R53.81 Other malaise; R53.83 Other fatigue; Z91.041 Radiographic dye allergy status; Z79.899 Other long term (current) drug therapy; Z99.3 Dependence on wheelchair
CPT/HCPCS: 70450; 70551; 71045; 80048; 80053; 80061; 81001; 82010; 82962; 83036; 83735; 84100; 84145; 84443; 84484; 85025; 85027; 85610; 85730; 87633; 92523; 92526; 92610; 93005; 93306; 94762; 97162; 97166; 99285; Q9957; A4216; J2405

== ENCOUNTER 2025-01-15 14:25 | Emergency (ER) | payer MEDICARE, MEDICAID, SELFPAY ==
[2025-01-15 14:26] VITALS: BP 161/92; PULSE 94; RESP 25; TEMP 36.9; O2SAT 95; BMI 28.1
--- OUTSIDE RECORDS SUMMARY | 2025-01-15 14:43 | XMS RPT_ITS | CCD ---
Author Organization [facility] Care Team Providers Care Site Project Manager Name Role Phone Unavailable Unavailable Antwan Burgos Unavailable Unavailable Antwan Maharaj Unavailable Unavailable Antwan Maharaj Unavailable Unavailable Antwan Maharaj Unavailable Unavailable Antwan Maharaj Unavailable Unavailable Antwan Maharaj Unavailable Unavailable Antwan Watters Primary Care Provider Antwan Watters Unavailable Antwan Maharaj Primary Care Provider Antwan Maharaj MD Primary Care Provider [phone] DAVID ORTIZ Attending Unavailable DAVID ORTIZ Referring Unavailable ANTWAN MAHARAJ Primary Care Unavailable Antwan Maharaj Unavailable Erick Lowe Unavailable Unavailable Antwan Maahraj MD Primary Care Provider Erickson Hernandez Unavailable Sharmaine Kelly I Unavailable Unavailable Georgi Vergara Unavailable Antwan Maharaj Unavailable Erickson Hernandez Attending Gilda Maharaj, Dr. Antwan Alvarado Primary Care Janetta shayy Maharaj, Dr. Antwan Alvarado Primary Care Unavaila shayy Lowe, Dr. Erick Estevez Attending Gilda Maharaj, Dr. Antwan Alvarado Attending Janetta shayy Maharaj, Dr. Antwan Alvarado Primary Care Unavaila Erickson Jay Attending Gilda Maharaj, Dr. Antwan Alvarado Primary Care Unavaila shayy Maharaj, Dr. Antwan Alvarado Attending Janetta shayy Maharaj, Dr. Antwan Alvarado Primary Care Unavaila shayy Maharaj, Dr. Antwan Alvarado Attending Unavaila shayy Maharaj, Dr. Antwan Alvarado Primary Care Unavaila ble Tomchak, Dr. Antwan Alvarado Primary Care Unavaila ble Tomchak, Dr. Antwan Alvarado Attending Unavaila ble Tomchak, Dr. Antwan Alvarado Primary Care Unavaila ble Tomchak, Dr. Antwan Alvarado Attending Unavaila ble Tomchak, Dr. Antwan Alvarado Primary Care Unavaila ble Tomchak, Dr. Antwan Alvarado Attending Unavaila ble Tomchak, Dr. Antwan Alvarado Primary Care Unavaila ble Tomchak, Dr. Antwan Alvarado Attending Unavaila ble Tomchak, Dr. Antwan Alvarado Attending Unavaila ble Tomchak, Dr. Antwan Alvarado Primary Care Unavaila ble Tomchak, Dr. Antwan Alvarado Attending Unavaila ble Tomchak, Dr. Antwan Alvarado Primary Care Unavaila ble Moomaw, MrTracey Sharmaine Mak Attending Unavailable Tomchak, Dr. Antwan Alvarado Primary Care Unavaila ble Tomdomo, Dr. Antwan Alvarado Primary Care Unavaila ble Jai, Dr. Georgi Dang Attending Unavail able Oberhauser DO, Rafa L Primary Care Provider HUY VASQUEZ Referring Unavailable HUY VASQUEZ Attending Unavailable ANTWAN MAHARAJ Primary Care Unavailable Marie Iyer RN Unavailable Unavailab le JacintaMg waite DO Primary Care Provider KENYETTA HILLIARD Attending Unavailable OBERHAUSER, RAFA L Primary Care Unavailable OBERHAUSER, RAFA L Attending Unavailable OBERHAUSER, RAFA L Referring Unavailable OBERHAUSER, RAFA L Primary Care Unavailable KENYETTA HILLIARD Attending Unavailable OBERHAUSER, RAFA L Primary Care Unavailable OBERHAUSER, RAFA L Attending Unavailable OBERHAUSER, RAFA L Primary Care Unavailable OBERHAUSER, RAFA L Attending Unavailable OBERHAUSER, RAFA L Primary Care Unavailable OBERHAUSER, RAFA L Primary Care Unavailable GEORGI VERGARA Attending Unavailable OBERHAUSER, RAFA L Primary Care Unavailable JASMYN WADE Attending Unavailable KENYETTA HILLIARD Referring Unavailable OBERHAUSER, RAFA L Primary Care Unavailable KENYETTA HILLIARD Referring Unavailable OBERHAUSER, RAFA L Primary Care Unavailable KENYETTA HILLIARD Referring Unavailable OBERHAUSER, RAFA L Primary Care Unavailable KENYETTA HILLIARD Referring Unavailable OBERHAUSER, RAFA L Primary Care Unavailable Referring Unavailable OBERHAUSER, RAFA L Primary Care Unavailable Referring Unavailable OBERHAUSER, RAFA L Primary Care Unavailable Referring Unavailable OBERHAUSER, RAFA L Primary Care Unavailable Referring Unavailable OBERHAUSER, RAFA L Primary Care Unavailable Referring Unavailable OBERHAUSER, RAFA L Primary Care Unavailable Referring Unavailable OBERHAUSER, RAFA L Primary Care Unavailable OBERHAUSER, RAFA L Primary Care Unavailable CHRISTIANO TRUJILLO Attending Unavailable CHRISTIANO TRUJILLO Referring Unavailable OBERHAUSER, RAFA L Primary [...] OBERHAUSER, RAFA L Primary Care Unavailable BABAK, KENYETTA B Referring Unavailable OBERHAUSER, RAFA L Primary Care Unavailable BABAK, KENYETTA B Referring Unavailable OBERHAUSER, RAFA L Primary Care Unavailable BABAK, KENYETTA B Referring Unavailable OBERHAUSER, RAFA L Primary Care Unavailable BABAK, KENYETTA B Referring Unavailable OBERHAUSER, RAFA L Primary Care Unavailable OBERHAUSER, RAFA L Primary Care Unavailable ERNIE HE Attending Unavailable JACINTA, MG R. Primary Care Unavailable NEO CASTREJON Attending Unavailable [facility] Primary Care Unavailable CARLOS BENAVIDEZ Consulting Unavailable JASMYN WADE Referring Unavailable JAYASHREE ESTEVEZ Attending Unavai lable ESTEVEZJAYASHREE Admitting Unavai lable MOVENS, RODERICK ANURADHA Referring Unavailable STURTSMONIQUE Attending Unavailable JACINTA, MG R. Primary Care Unavailable MOVENS, RODERICK ANURADHA Admitting Unavailable MOVENS, RODERICK ANURADHA Referring Unavailable STSAMANSMONIQUE Attending Unavailable JACINTA, MG R. Primary Care Unavailable MOVENS, RODERICK ANURADHA Admitting Unavailable JACINTA, MG R. Primary Care Unavailable MOVENS, RODERICK ANURADHA Referring Unavailable MOVENS, RODERICK ANURADHA Admitting Unavailable VICTOR MANUEL CRAVEN Attending Unavailable SACHIN MORALES Referring Unavailable VIAU, SACHIN MORENO Attending Unavailable [facility] Lay Primary Care Unavailable MATTUSACHIN Referring Unavailable SACHIN MORALES Attending Unavailable [facility] Lay Primary Care Unavailable MARCOS BARRERA Referring Unavail able MARCOS BARRERA Attending Unavail able JACINTA, MG R. Primary Care Unavailable MOVENS, RODERICK ANURADHA Referring Unavailable YANET DALY Attending Unavailable MOVENS, RODERICK ANURADHA Admitting Unavailable JACINTA, MG R. Primary Care Unavailable MEHRAN BUCK Attending Unavailable MOVENS, RODERICK ANURADHA Admitting Unavailable MOVENS, RODERICK ANURADHA Referring Unavailable JACINTA, MG R. Primary Care Unavailable MEHRAN BUCK Attending Unavailable JACINTA, MG R. Primary Care Unavailable MOVENS, RODERICK ANURADHA Referring Unavailable MOVENS, RODERICK ANURADHA Admitting Unavailable JACINTA, MG R. Primary Care Unavailable MOVENS, RODERICK ANURADHA Referring Unavailable MOVENS, RODERICK ANURADHA Admitting Unavailable POPPY, TRE Attending Unavailable MOVENS, RODERICK ANURADHA Referring Unavailable JACINTA, MG R. Primary Care Unavailable MOVENS, RODERICK ANURADHA Admitting Unavailable POPPY, TRE Attending Unavailable MOVENS, RODERICK ANURADHA Referring Unavailable JACINTA, MG R. Primary Care Unavailable MOVENS, RODERICK ANURADHA Admitting Unavailable POPPY, TRE Attending Unavailable CREASAP, KIRILL ANTONY Admitting Unavailab le [facility] Consulting Unavafanta MCINTOSH, MODESTA Attending Unavailable JACINTA, MG R. Primary Care Unavailable Jocelyn FRIEDMAN, Dr. Alston Emergency Provider Gautam FRIEDMAN, Dr. Georges Admit Provider Dr. Jayashree Florez DO Attending Provider Care Physician, No Primary Primary Care Provider Unavailable Dr. Jayashree Florez DO Other Provider [phone] Linnea ARAUZ, Gen Other Provider Unavailable Mer ARAUZ, Dr. Ott Other Provider [phone] Jaquelin Ji MD Other Provider Unavailable Dr. Justa Hernandez DO Other Provider Dr. Rebecca Parrish MD Other Provider Elvira ARAUZ, Dr. Mcrae Other Provider Zechariah ARAUZ, Dr. Jaeger Other Provider Dr. Bryan Romano MD Other Provider Balta ARAUZ, Dr. Melgar Other Provider Travis ARAUZ, Dr. Arguello Other Provider Melvina Rollins MD Other Provider Chung ARAUZ, Dr. Guadalupe Other Provider Edd ARAUZ, Dr. Garcia Other Provider Mat ARAUZ, Dr. Antonio Other Provider Patricio ARAUZ, Dr. María Campos Other Provider Reginald ARAUZ, Dr. Boyd Other Provider [phone] Yazan ARAUZ, Dr. Lacey Other Provider [phone] Marcel Ayoub MD Other Provider Bala ARAUZ, Dr. Hodge Other Provider Unavailable Dhaval Sutton MD Other Provider Unavailable Adria ARAUZ, Dr. Graves Attending Provider Unavailamy Simons MD, Dr. Ryanne Reyes Other Provider Saeid ARAUZ, Dr. Kruger Attending Provider [phone] Adria ARAUZ, Dr. Graves Other Provider Unavailable OBERHAUSER, RAFA L Primary Care Unavailable OBERHAUSER, RAFA L Primary Care Unavailable Linnea Gen Consulting Unavailable Antwan Covington Attending Unavailable Jayashree Florez Admitting Unavailable Care Physician, No Primary Primary Care Unava ilable Adeli, Amir Consulting Unavailable Hinduja, Jaquelin Consulting Unavailable David, Justa Consulting Unavailable Zha, Rebecca Consulting Unavailable Elvira, Thor Consulting Unavailable Zechariah, Heide Consulting Unavailable Bittar, Bryan Consulting Unavailable Ramón Gifford Consulting Unavailable Robles, Jos Consulting Unavailable Beigel, Melvina Consulting Unavailable Gusler, Huy Consulting Unavailable Edd, Radha Consulting Unavailable Ridha, Mohamed Consulting Unavailable Zaghlouleh, Mhd Andres Consulting UnavailOliver Frost Consulting Unavailable Hand, Rami Consulting Unavailable Anitra, Marcel Consulting Unavailable Ayesha Mckenna Consulting Unavailable Dhaval Sutton Consulting Unavailable Jayashree Florez Consulting Unavailable Ryanne Simons Consulting Unavailable Slick Breaux Attending Unavailable Care Physician, No Primary Primary Care Unava ilable Gen Yarbrough Consulting Unavailable Antwan Covington Attending Unavailable Jayashree Florez Admitting Unavailable Care Physician, No Primary Primary Care Unava ilable Adeli, Amir Consulting Unavailable Hinduja, Jaquelin Consulting Unavailable David, Justa Consulting Unavailable Zha, Rebecca Consulting Unavailable Elvira, Thor Consulting Unavailable Zechariah, Heide Consulting Unavailable Bittar, Bryan Consulting Unavailable Gifford, Ramón Consulting Unavailable Robles, Jos Consulting Unavailable Beigel, Melvina Consulting Unavailable Gusler, Huy Consulting Unavailable Edd, Radha Consulting Unavailable Ridha, Mohamed Consulting Unavailable Zaghlouleh, Mhd Andres Consulting UnavailOliver Frost Consulting Unavailable Hand, Rami Consulting Unavailable Anitra, Marcel Consulting Unavailable Bala, Ayesha Consulting Unavailable Herman, Yousef Consulting Unavailable Jayashree Florez Consulting Unavailable Ryanne Simons Consulting Unavailable Antwan Covington Consulting Unavailable Gen Yarbrough Consulting Unavailable Jayashree Florez Admitting Unavailable Ryanne Simons Attending Unavailable Care Physician, No Primary Primary Care Unava ilable Adeli, Amir Consulting Unavailable Hinduja, Jaquelin Consulting Unavailable David, Justa Consulting Unavailable Zha, Rebecca Consulting Unavailable Elvira, Thor Consulting Unavailable Zechariah, Heide Consulting Unavailable Bittar, Bryan Consulting Unavailable Ramón Gifford Consulting Unavailable Jos Robles Consulting Unavailable Melvina Rollins Consulting Unavailable Huy Wilkes Consulting Unavailable Radha Puga Consulting Unavailable Marisela Rivero Consulting Unavailable María Curry Consulting UnavailOliver Frost Consulting Unavailable Hand, Ramfanta Consulting Unavailable Anitra, Marcel Consulting Unavailable Bala, Ayesha Consulting Unavailable Herman, Yousef Consulting Unavailable Jayashree Florez Consulting Unavailable Jayashree Florez Attending Unavailable DAVID ORTIZ Attending Unavailable JACINTA, MG R. Primary Care Unavailable JACINTA, MG RTrcaey Attending Unavailable JACINTA, MG R. Primary Care Unavailable JACINTA, MG RTracey Attending Unavailable JACINTA, MG R. Primary Care Unavailable MARCI KIMBLE Attending Unavailable ANTAWN MAHARAJ Primary Care Unavailable IRIS, SACHIN MORENO Attending Unavailable ANTWAN MAHARAJ Primary Care Unavailable DAVID ORTIZ Attending Unavailable ANTWAN MAHARAJ Primary Care Unavailable JACINTA, MG RTracey Attending Unavailable JACINTA, MG R. Primary Care Unavailable JACINTA, MG R. Primary Care Unavailable JACINTA, MG RTracey Attending Unavailable JACINTA, MG R. Primary Care Unavailable JACINTA, MG RTracey Attending Unavailable JACINTA, MG R. Primary Care Unavailable JACINTA, MG RTracey Attending Unavailable JACINTA, MG RTracey Attending Unavailable JACINTA, MG R. Primary Care Unavailable JACINTA, MG R. Attending Unavailable JACINTA, MG R. Primary Care Unavailable LAMINMARCI Attending Unavailable JACINTA, MG R. Primary Care Unavailable JACINTA, MG R. Primary Care Unavailable JACINTA, MG RTracey Attending Unavailable JACINTA, MG R. Referring Unavailable MARCOS BARRERA Attending Unavail able JACINTA, MG R. Primary Care Unavailable JACINTA, MG R. Admitting Unavailable JACINTA, MG R. Primary Care Unavailable JACINTA, MG R. Attending Unavailable JACINTA, MG R. Primary Care Unavailable MARCI KIMBLE Attending Unavailable MARCI KIMBLE Attending Unavailable TOMANTWAN SOMERS Primary Care Unavailable HUY VASQUEZ Attending Unavailable ANTWAN MAHARAJ Primary Care Unavailable MARCOS BARRERA Attending Unavail able JACINTA, MG R. Primary Care Unavailable SYSTEM, PROVIDER NOT IN Attending Unavaila ble JACINTA, MG R. Primary Care Unavailable SYSTEM, PROVIDER NOT IN Referring Unavaila ble JACINTA, MG R. Primary Care Unavailable SYSTEM, PROVIDER NOT IN Referring Unavaila ble SYSTEM, PROVIDER NOT IN Attending Unavaila ble JACINTA, MG R. Primary Care Unavailable SYSTEM, PROVIDER NOT IN Referring Unavaila ble SYSTEM, PROVIDER NOT IN Attending Unavaila ble Allergies Allergy Classification Reported Allergen(s) Allergy Type Date of Onset Reaction(s) Facility (2 sources) Triiodobenzoic Acids Allergy to substance 5 [facility] (1 source) Iodinated Contrast Media Drug allergy (disorder) [address] [facility] Repository Medications Current Medications Medication Drug Class(es) Dates Sig (Normalized) Sig (Original) acetaminophen 500 mg oral tablet (20 sources) Start: 12-18-2024 take 2 tablets by mouth three times daily as needed for pain Acetaminophen 500 mg tablet Active 1000 mg PO THREE TIMES A DAY as needed for fever or pain December 18, 2024 12:00am Start: 09-16-2024 take 2 tablets by [facility] every eight hours as needed for pain [...] Start: 04-27-2024 take 2 tablets by mo [facility] every six hours as needed for pain acetaminophen (Tylenol) 500 mg tablet Indications: Gait abnormality TAKE 2 TABLETS (1000MG) BY MOUTH EVERY 6 HOURS NEEDED FOR PAIN OR FEVER *CALL FOR REFILLS* 99 tablet 04/29/2024 9:57 AM EST 04/27/2024 Active Start: 01-13-2017 End: 12-18-2024 take 2 tablets by mouth every four hours as needed for pain Acetaminophen (Tylenol) 325 MG tablet Discontinued 650 mg PO EVERY 4 HOURS NEEDED as needed for Pain January 13, 2017 12:00am December 18, 2024 10:25pm End: 09-16-2024 take 1 tablet by mouth every six hours as needed for pain acetaminophen (TYLENOL) 500 MG tablet Take 1 (one) tablet (500 mg total) by mouth every 6 (six) hours as needed for pain . 09/16/2024 Discontinued (Reorder (Suppress CancelRx Message to Pharmacy)) take 2 tablets by mo uth every six hours as needed acetaminophen (Tylenol) 500 mg tablet Take 2 tablets (1,000 mg) by mouth every 6 hours if needed. Active acetaminophen 325 mg / HYDROcodone bitartrate 5 mg oral tablet (2 sources) Opioid Agonist Start: 07-09-2024 End: 07-12-2024 take 1 tablet by mouth every six hours for pain HYDROcodone-acetaminophen ([place]) 5-325 mg tablet Indications: Contusion of right [...] Dihydropyridine Calcium Channel Roxanne Start: 03-21-2022 End: 12-21-2024 take 1 tablet by mouth once daily amLODIPine (NORVASC) 2.5 MG tablet Take 1 (one) tablet (2.5 mg total) by mouth daily . 90 tablet 3 09/16/2024 Active ascorbic acid 500 mg oral tablet (10 sources) Vitamin C Start: 01-11-2025 End: 01-11-2026 take 1 tablet by mouth once daily ascorbic acid, vitamin C, (ascorbic acid with lauro hips) 500 MG tablet Take 1 (one) tablet (500 mg total) by mouth daily . 30 tablet 11 01/11/2025 01/11/2026 Active Start: 03-28-2022 End: 03-28-2023 take 1 tablet by mouth once daily ascorbic acid, vitamin C, (ascorbic acid with lauro hips) 500 MG tablet Take 1 (one) tablet (500 mg total) by mouth daily . 30 tablet 11 03/28/2022 Active aspirin 81 mg chewable tablet (5 sources) Platelet Aggregation Inhibitor, Nonsteroidal Anti-inflammatory Drug Start: 12-21-2024 aspirin 81 mg chewable tablet Chew and Swallow 1 (one) tablet (81 mg total) daily with breakfast . 12/21/2024 Active atorvastatin 10 mg oral tablet (20 sources) HMG-CoA Reductase Inhibitor Start: 12-21-2024 End: 12-23-2024 take 1 tablet by mouth once daily atorvastatin (LIPITOR) 40 MG tablet Take 1 (one) tablet (40 mg total) by mouth nightly . 12/21/2024 12/23/2024 Discontinued Start: 04-16-2023 End: 12-23-2024 take 1 tablet by mouth once daily at bedtime atorvastatin (LIPITOR) 10 MG tablet Indications: Type 2 diabetes mellitus without complication, without long-term current use of insulin (HCC) , Mixed hyperlipidemia Take 1 (one) tablet (10 mg total) by mouth every night at bedtime . 90 tablet 3 12/23/2024 Active atorvastatin Kartik ntity: 0 Refills: 0 Ordered: 25-Mar-2019 Alee Li Generic Substitution Allowed benacalorie (3 sources) benacalorie ; Gi ve 1 packet mixed in food or liquid 3 times daily as needed for meal intake less then 50% Quantity: 0 Refills: 0 Ordered: 09-Aug-2022 Chan Stephens Generic Substitution Allowed Benacalorie (2 sources) Start: 12-19-19 Benacalorie Active 1 NMA PO THREE TIMES A DAY as needed for intake less than 50% December 18, 2024 12:00am benztropine mesylate 1 mg oral tablet (20 sources) Anticholinergic, Antihistamine Start: 12-19-19 take 1 tablet by mouth at bedtime Benztropine 1 mg tablet Active 1 mg PO AT BEDTIME December 18, 2024 12:00am Start: 03-21-2022 take 1 tablet by lopez th twice daily benztropine (COGENTIN) 1 MG tablet Take 1 (one) tablet (1 mg total) by mouth 2 (two) times a day . 03/21/2022 Active carbidopa 25 mg / levodopa 100 mg oral tablet (20 sources) Aromatic Amino Acid Decarboxylation Inhibitor, Aromatic Amino Acid Start: 04-16-2023 End: 01-11-2026 take 2 tablets by mouth three times daily carbidopa-levodopa (SINEMET) 25-100 mg per tablet Indications: Parkinson disease (HCC) Take 2 (two) tablets by mouth 3 (three) times a day . 540 tablet 3 01/11/2025 01/11/2026 Active Start: 12-19-2022 End: 12-19-2023 take 1.5 [...] tablet 3 08/01/2022 12/19/2022 Discontinued (Dose adjustment) diclofenac sodium 0.01 mg/mg topical gel (20 sources) Nonsteroidal Anti-inflammatory Drug Start: 12-18-2024 End: 12-21-2024 apply 4 g topically four times daily Diclofenac Sodium 1 % gel Active 4 g TOPICAL 4 TIMES DAILY December 18, 2024 12:00am karishma knees and right hip Start: 07-13-2024 diclofenac sod ium 1% (VOLTAREN) 1 % Gel Indications: Recurrent [...] 100 mg oral capsule (20 sources) Start: 01-13-2017 End: 08-19-2024 take 1 capsule by mouth twice daily docusate sodium (COLACE) 100 MG capsule Indications: Constipation, unspecified constipation type Take 1 (one) capsule (100 mg total) by mouth 2 (two) times a day . 180 capsule 3 08/19/2024 Active docusate sodium 50 mg / sennosides, [facility] 8.6 mg oral tablet (20 sources) Start: 01-13-2017 Sennosides-Docusat e Sodium (Senna Plus) 1 EACH tablet Active 1 {tbl} PO DAILY January 13, 2017 12:00am empagliflozin 25 mg oral tablet (20 sources) Sodium-Glucose Cotransporter 2 Inhibitor Start: 03-15-2024 End: 04-19-2025 take 1 tablet by mouth once daily empagliflozin 25 mg Tab Take 1 (one) tablet (25 mg total) by mouth daily . 03/15/2024 04/19/2025 Active estradiol 0.1 mg/ml vaginal cream (20 sources) Estrogen Start: 12-18-2024 Estradiol 0.01 % (0.1 mg/gram) cream Active 0.5 NMA VAGINAL MOWEFR December 18, 2024 12:00am Start: 12-18-2024 Estradiol (Est race) 0.01 % (0.1 mg/gram) cream Active 0.5 NMA VAGINAL DAILY December 18, 2024 12:00am for 14 days Start: 12-08-2024 End: 12-08-2025 estradioL (ESTRACE) 0.01 % ( 0.1 mg/gram) vaginal cream Insert 2 (two) g into the vagina Friday, Friday, Friday EVERY FRIDAY/ Start: 12/08/24. 42.5 g 3 12/08/2024 12/08/2025 [...] PM EST 12/24/2023 12/23/2024 Active estrogens, conjugated ([facility]) 0.625 mg/ml vaginal cream (20 sources) Estrogen [...] once a day as directed . Active hyoscyamine sulfate 0.125 mg disintegrating oral tablet [...] Substitution Allowed ibuprofen 400 mg oral tablet (6 sources) Nonsteroidal Anti-inflammatory Drug Start: 01-29-2024 End: [...] scores based on patient preference? Yes Start: 01-13-2017 End: 12-18-2024 take 1 tablet by mouth every eight hours as needed Ibuprofen 400 MG tablet Discontinued 400 mg PO EVERY 8 HOURS NEEDED as needed for Cramp January 13, 2017 12:00am December 18, 2024 10:57pm insulin glargine-yfgn (SEMGLEE) 100 unit/mL (3 mL) InPn (6 sources) Start: 01-05-2025 inject 8 [IU] by subcutaneous injection once daily insulin glargine-yfgn (SEMGLEE) 100 unit/mL (3 mL) InPn Indications: Type 2 diabetes mellitus without complication, without long-term current use of insulin (HCC) Inject 8 (eight) Units under the skin daily . 15 mL 3 01/05/2025 Active Start: 12-23-2024 End: 01-05-2025 inject 5 [IU] by subcutaneous injection twice daily insulin glargine-yfgn (SEMGLEE) 100 unit/mL (3 mL) InPn Indications: Type 2 diabetes mellitus without complication, without long-term current use of insulin (HCC) Inject 5 (five) Units under the skin 2 (two) times a day . 15 mL 3 12/23/2024 01/05/2025 Discontinued (Reorder (Suppress CancelRx Message to Pharmacy)) Start: 12-23-2024 inject 5 [IU] by sub cutaneous injection twice daily insulin glargine-yfgn (SEMGLEE) 100 unit/mL (3 mL) InPn Indications: Type 2 diabetes mellitus without complication, without long-term current use of insulin (HCC) Inject 5 (five) Units under the skin 2 (two) times a day . 15 mL 3 12/23/2024 Active Start: 12-21-2024 End: 12-23-2024 inject 5 [IU] by subcutaneous injection twice daily insulin glargine-yfgn (SEMGLEE) 100 unit/mL (3 mL) InPn Inject 5 (five) Units under the skin 2 (two) times a day . 12/21/2024 12/23/2024 Discontinued (Reorder (Suppress CancelRx Message to Pharmacy)) Insulin Glargine-Yfgn 100 unit/mL (3 mL) Insulin Pen (1 source) Start: 12-21-2024 Insulin Glargi ne-Yfgn 100 unit/mL (3 mL) Insulin Pen Active 5 U SC TWICE A DAY December 21, 2024 12:00am levothyroxine sodium 0.075 mg oral tablet (20 sources) l-Thyroxi ne Start: 11-16-2024 take 1 tablet by mouth [...] Ordered: 25-Mar-2019 Alee Li Generic Substitution Allowed magnesium hydroxide 80 mg/ml oral suspension (3 sources) Start: 01-05-2025 take 30 mL by mouth once daily as needed magnesium hydroxide 400 mg/5 mL Susp Indications: Constipation, unspecified constipation type Take 30 mL (2,400 mg total) by mouth daily as needed If no BM in 2 days. . 769 mL 11 01/05/2025 Active melatonin 3 mg oral tablet (20 sources) Start: 04-16-2023 take 1 tablet by mouth at bedtime Melatonin 3 mg tablet Active 3 mg PO AT BEDTIME December 18, 2024 12:00am 24 hr metFORMIN hydrochloride 500 mg extended release oral tablet (20 sources) Biguanide Start: 12-18-2024 Metformin 500 mg tablet extended release 24 hr Active 1000 mg PO TWICE A DAY December 18, 2024 12:00am Start: 01-13-2017 End: 12-18-2024 take 1 tablet by mouth twice daily Metformin 500 MG tablet,ER annette.retention 24 hr Discontinued 500 mg PO TWICE A DAY January 13, 2017 12:00am December 18, 2024 10:57pm Start: 10-03-2014 take 2 tablets by mo uth twice daily metFORMIN (GLUCOPHAGE-XR) 500 MG 24 [...] day Quantity: 0 Refills: 0 Ordered: 06-Nov-2022 Sachin Guya Generic Substitution Allowed take 1 tablet by [...] 04/16/2023 Active take 1 tablet by lopez th once daily at bedtime mirtazapine 30 mg [...] Ordered: 09-Aug-2022 Chan Stephens Generic Substitution Allowed bnoqzsfz-rww-oqprsep fumarate 15 mg iron Tab (20 sources) Start: 08-19-2024 take 1 tablet by mouth once daily in the morning pigqsvfb-ajm-projrqm fumarate 15 mg iron Tab Indications: Frequent falls Take 1 tablet by mouth every morning . 90 tablet 3 08/19/2024 Active Start: 11-09-2023 End: 08-19-2024 take 1 tablet by mouth once daily in the morning bckrastp-tiu-hhircgi fumarate 15 mg iron Tab Take 1 tablet by mouth every morning . 11/09/2023 08/19/2024 Discontinued (Reorder (Suppress CancelRx Message to Pharmacy)) Start: 11-09-2023 take 1 tablet by lopez th once daily in the morning bmexfzgr-dic-lxedtkd fumarate 15 mg iron Tab Take 1 tablet by mouth every morning . 11/09/2023 Active qdfuhbvx-tdr-idbjnkj fumarate 15 mg iron tablet (3 sources) Start: 03-08-2024 take 1 tablet by mouth once daily xojarfjg-mxs-pqrlylk fumarate 15 mg iron tablet Take 1 tablet by mouth once daily. 03/08/2024 Active Etnjhmdi-Qkv-Ixduyra Fumarate 15 mg iron tablet (2 sources) Start: 12-18-2024 Dmivmwbo-Vgx-I errous Fumarate 15 mg iron tablet Active 1 {tbl} PO DAILY December 18, 2024 12:00am ytikqcwh-amh-akef fum-folic ac 7.5 mg iron-400 mcg tablet (9 sources) Start: 10-07-2023 hiwzdwrr-rlr-p adolfo fum-folic ac 7.5 mg iron-400 mcg tablet Indications: Healthcare maintenance GIVE 1 TABLET BY MOUTH ONCE DAILY FOR SUPPLEMENT *GETTING FILLED LOCALLY* 30 tablet 10/07/2023 Active MULTIVITAMIN ORAL (20 sources) MULTIVITAMIN ORA L Take 1 tablet by mouth . Active MULTIVITAMIN ORA L Take by mouth . 0 Active multivitamin with minerals (fzavjrgc-lzb-dlqj fum-folic ac) tablet (9 sources) Start: 10-14-2023 End: 10-13-2024 take 1 tablet by mouth once daily before mealtime multivitamin with minerals (henaqkzk-arj-fhvy fum-folic ac) tablet Indications: Stage 3a chronic kidney disease (Multi) Take 1 tablet by mouth once daily. 90 tablet 3 10/14/2023 10/13/2024 Active NONFORMULARY (20 sources) End: 01-11-2025 NONFORMULARY CHECK FASTING BLOOD SUGAR ONE TIME EVERY MONTH (FIRST FRIDAY OF THE MONTH) . 01/11/2025 Discontinued NONFORMULARY HOLLIS CK FASTING BLOOD SUGAR ONE [...] ORAL) Take by mouth . 0 Active Nut.Tx.Glucose Intolerance,Soy (Glucerna) bar (2 sources) Start: 12-18-2024 Nut.Tx.Glucose Intolerance,Soy (Glucerna) bar Active 1 NMA PO 4 TIMES DAILY December 18, 2024 12:00am omeprazole 40 mg delayed release oral capsule (20 sources) Proton Pump Inhibitor Start: 03-21-2022 End: 09-15-2024 take 1 capsule by mouth once daily omeprazole (PRILOSEC) 40 MG capsule Take 1 (one) capsule (40 mg total) by mouth daily . 90 capsule 3 09/16/2024 Active omeprazole Quant ity: 0 Refills: 0 Ordered: 25-Mar-2019 Alee Li Generic Substitution Allowed pimavanserin 34 mg oral capsule (20 sources) Atypical Antipsychotic Start: 08-24-2024 End: 01-11-2025 take 1 tablet by mouth once daily pimavanserin 10 mg Tab Take 1 (one) tablet (10 mg total) by mouth daily . 08/24/2024 01/11/2025 Discontinued Start: 08-24-2024 End: 01-11-2026 take 1 capsule by mouth once daily pimavanserin (Nuplazid) 34 mg Take 1 (one) capsule (34 mg total) by mouth daily . 30 capsule 11 01/11/2025 01/11/2026 Active polyethylene glycol 3350 09147 mg powder for oral solution (20 sources) Osmotic Laxative Start: 10-01-2022 End: 09-15-2024 polyethylene glycol (MIRALAX) 17 gram powder Take 17 (seventeen) g by mouth daily . 1530 g 3 09/16/2024 Active Potassium Acetate (1 source) potassium acetat e Quantity: 0 Refills: 0 Ordered: 25-Mar-2019 Li Alee Generic Substitution Allowed microencapsulated potassium chloride 10 meq extended release oral tablet (20 sources) Start: 01-13-2017 End: 12-18-2024 take 1 tablet by mouth once daily Potassium Chloride 10 MEQ tablet extended release Discontinued 10 meq PO DAILY January 13, 2017 12:00am December 18, 2024 10:57pm Start: 09-05-2014 End: 09-15-2024 take 1 tablet by mouth once daily potassium chloride SA (K-DUR,KLOR-CON M10) 10 MEQ tablet Take 1 (one) tablet (10 mEq total) by mouth daily . 90 tablet 3 09/16/2024 Active take 1 tablet by lopez th twice daily potassium chloride 10 mEq oral tablet, extended release ; 1 tab(s) orally 2 times a day Quantity: 0 Refills: 0 Ordered: 09-Aug-2022 Chan Stephens Generic Substitution Allowed potassium, sodium phosphates (PHOS-NAK) 280-160-250 mg PwPk (4 sources) Start: 12-21-2024 take 1 dose by mouth twice daily potassium, sodium phosphates (PHOS-NAK) 280-160-250 mg PwPk Take 1 (one) packet by mouth 2 (two) times a day . 12/21/2024 Active Potassium, Sodium Phosphates 280-160-250 mg Powder In Packet (1 source) Start: 12-21-2024 Potassium, Sod ium Phosphates 280-160-250 mg Powder In Packet Active 1 NMA PO TWICE A DAY 60 0 December 21, 2024 12:00am repaglinide 0.5 mg oral tablet (12 sources) Glinide Start: 09-30-2024 End: 03-29-2025 take 1 tablet by mouth twice daily before mealtime REPaglinide (PRANDIN) 0.5 MG tablet Indications: Type 2 diabetes mellitus without complication, without long-term current use of insulin (HCC) Take 1 (one) tablet (0.5 mg total) by mouth 2 (two) times a day before meals . 180 tablet 1 09/30/2024 03/29/2025 Active SITagliptin 100 mg oral tablet (20 sources) Dipeptidyl Peptidase 4 Inhibitor Start: 03-21-2022 Januvia 100 mg tablet 03/21/2022 Active sodium fluoride 0.011 mg/mg toothpaste (11 sources) Start: 12-18-2024 Fluoride (Sodi um) (Denta 5000 Plus) 1.1 % cream Active 1 NMA DENTAL DAILY December 18, 2024 12:00am fluoride, sodium , (Denta 5000 Plus) 1.1 % dental cream Apply to teeth once daily. Active triamcinolone acetonide 0.00 1 mg/mg oral paste (1 source) Corticosteroid triamcinolone (K ENALOG) 0.1 % paste Apply to teeth 2 (two) times a day . 0 Active UNABLE TO FIND (20 sources) UNABLE TO FIND B enacalorie mixed in food or drink 3 times daily as needed for meal intake less than 50% . Active UNABLE TO FIND B enacalorie mixed in food or drink 3 times daily . 0 Active UNABLE TO FIND S N Anitacid . 0 Active vitamin b12 1 mg sublingual tablet (1 source) Vitamin B12 Start: 01-11-2025 cyanocobalamin , vitamin B-12, 1,[address] 1 (one) tablet (1,000 mcg total) under the tongue daily . 30 tablet 12 01/11/2025 Active Start: 01-11-2025 cyanocobalamin , vitamin B-12, 1,[address] 1 (one) tablet (1,000 mcg total) under the tongue daily . 30 tablet 12 01/11/2025 Active Completed/Discontinued Medications Medication Drug Class(es) Dates [...] days Quantity: 10 Refills: 0 Ordered: 18-Aug-2022 Jayashreejelani Sharmaine Fanta Start: 18-Aug-2022 End: 22-Aug-2022 Generic Substitution Allowed Comments: Finish all this medication unless otherwise directed by prescriber. Comment on above: Finish all this medi cation unless otherwise directed by prescriber. dextromethorphan hydrobromide 2 mg/ml / guaiFENesin 20 mg/ml oral solution (2 sources) Uncompetitive B-iotkoc-X-aspartate Receptor Antagonist, Sigma-1 Agonist Start: End: take 1 mL by mouth every four hours as needed for cough Dextromethorphan-Gu aifenesin (Robafen-Dm Syrup) 118 ML syrup Discontinued 10 mL PO EVERY 4 HOURS NEEDED as needed for Cough January 13, 2017 12:00am December 18, 2024 10:57pm diazePAM 2 mg oral tablet (3 sources) Benzodiazepine Start: End: take 1 tablet by mouth twice daily Diazepam 2 MG tablet Discontinued 2 mg PO TWICE A DAY January 13, 2017 12:00am December 18, 2024 10:57pm diazePAM 2 mg or al tablet Quantity: 0 Refills: 0 Ordered: 25-Mar-2019 Alee Li Generic Substitution Allowed Norgestimate-Ethinyl Estradiol (2 sources) Progestin, Estrogen Start: 01-13-2017 End: 12-18-2024 Norgestimate-Ethinyl Estradiol (Previfem Tablet) 1 EACH tablet Discontinued 1 {tbl} PO DAILY January 13, 2017 12:00am December 18, 2024 10:57pm glimepiride 4 mg oral tablet (2 sources) Sulfonylurea Start: 01-13-2017 End: 12-18-2024 take 1 tablet by mouth once daily Glimepiride 4 MG tablet Discontinued 4 mg PO DAILY January 13, 2017 12:00am December 18, 2024 10:57pm glipiZIDE 10 mg oral tablet (20 sources) Sulfonylurea Start: 03-29-2024 End: 03-29-2025 take 1 tablet by mouth twice daily before mealtime glipiZIDE (GLUCOTROL) 10 MG tablet Take 1 (one) tablet (10 mg total) by mouth 2 (two) times a day before meals . 03/29/2024 12/23/2024 Discontinued Start: 10-17-2023 End: 10-16-2024 take 1 tablet by mouth twice daily before mealtime glipiZIDE (Glucotrol) 5 mg tablet Indications: Type 2 diabetes mellitus without complication, without long-term current use of insulin (Multi) Take 1 tablet (5 mg) by mouth 2 times a day before meals. 60 tablet 11 10/17/2023 03/29/2024 Discontinued (Therapy completed) lisinopril 5 mg oral tablet (15 sources) Angiotensin Converting Enzyme Inhibitor Start: 10-03-2014 End: 12-18-2024 take 1 tablet by mouth once daily Lisinopril (Zestril) 5 MG tablet Discontinued 5 mg PO DAILY January 13, 2017 12:00am December 18, 2024 10:57pm lisinopril Quant ity: 0 Refills: 0 Ordered: 25-Mar-2019 Alee Li Generic Substitution Allowed 1 ml morphine sulfate 4 mg/ml prefilled syringe (1 source) Opioid Agonist Start: 12-04-2023 End: 12-04-2023 4 mg, intravenous, Once, On Antonia 12/04/23 at 1115, For 1 dose OLANZapine 20 mg oral tablet (20 sources) Atypical Antipsychotic Start: 01-13-2017 End: 12-18-2024 take 1 tablet by mouth at bedtime Olanzapine (Zyprexa) 20 MG tablet Discontinued 20 mg PO AT BEDTIME January 13, 2017 12:00am December 18, 2024 10:57pm Start: 10-03-2014 take 1 tablet by lopez th once daily OLANZapine (ZYPREXA) 10 MG tablet Take 1 (one) tablet (10 mg total) by mouth nightly . 10/03/2014 Active Start: 10-03-2014 OLANZapine (ZY PREXA) 15 MG tablet Start: 10-03-2014 End: 01-11-2025 take 1 tablet by mouth once daily [...] based on patient preference? Yes, Indications: pain raNITIdine 150 mg oral tablet (2 sources) Histamine-2 Receptor Antagonist Start: 01-13-2017 End: 12-18-2024 take 1 tablet by mouth twice daily Ranitidine (Zantac) 150 MG tablet Discontinued 150 mg PO TWICE A DAY January 13, 2017 12:00am December 18, 2024 10:58pm simvastatin 20 mg oral tablet (14 sources) HMG-CoA Reductase Inhibitor Start: 10-03-2014 End: 12-18-2024 take 1 tablet by mouth at bedtime Simvastatin 20 MG tablet Discontinued 20 mg PO AT BEDTIME January 13, 2017 12:00am December 18, 2024 10:58pm divalproex sodium 250 mg delayed release oral tablet (2 sources) Mood Stabilizer, Anti-epileptic Agent Start: 01-13-2017 End: 12-18-2024 take 1 tablet by mouth three times daily at mealtime Divalproex 250 MG tablet Discontinued 250 mg PO 3 TIMES DAILY WITH MEALS January 13, 2017 12:00am December 18, 2024 10:57pm Problems Active Problems Problem Classification Problem Date Documented Da te Episodic/Chronic Acute cerebrovascular disease (20 sources) Hemorrhage into subarachnoid space of neuraxis; Translations: [Nontraumatic subarachnoid hemorrhage, unspecified] Onset: 12-04-2023 12-08-2023 Chronic Administrative/social admission (9 sources) Impaired ability to transfer location; Translations: [Other symptoms involving nervous and musculoskeletal systems] Onset: 01-29-2023 Episodic Attention-deficit, conduct, and disruptive behavior disorders (4 sources) Aggressive behavior; Translations: [Other symptoms and signs involving appearance and behavior] Onset: 01-09-2025 01-09-2025 Episodic Cataract (20 sources) Nuclear senile cataract; Translations: [Age-related nuclear cataract, unspecified eye] Onset: 10-05-2014 06-24-2024 Chronic Chronic kidney disease (20 sources) Chronic kidney disease, unspecified; Translations: [Chronic kidney disease stage 3A ] Onset: 10-08-2022 04-21-2023 Chronic Chronic kidney disease (4 sources) Chronic kidney disease; Translations: [Chronic kidney [...] mellitus without complication] Onset: 01-22-2017 04-21-2023 Chronic Disorders of lipid metabolism (1 source) Mixed hyperlipidemia; Translations: [Mixed hyperlipidemia] 12-23-2024 Chronic E Codes: Fall (4 sources) Fall [...] right hand] Onset: 01-12-2024 Chronic Other aftercare (1 source) terminal gauger (current) use of oral hypoglycemic drugs; Translations: [MCFP (current) use of oral hypoglycemic drugs] Onset: 11-06-2022 Episodic Other aftercare (1 source) Other roasterman (current) drug therapy; Translations: [Other roasterman (current) drug therapy] Onset: 11-06-2022 Episodic Other circulatory disease (1 source) Choking 05-26-2022 Episodic Other connective tissue disease (3 sources) Neurological symptom; Translations: [Other symptoms and signs involving the nervous system] Episodic Other connective tissue disease (4 sources) Weakness of face muscles; Translations: [Facial weakness] 12-18-2024 Episodic Other connective tissue disease (1 source) Unspecified symptoms and signs involving the nervous system; Translations: [Unspecified symptoms and signs involving the nervous system] Onset: 12-21-2024 Episodic Other fractures (2 sources) Closed fracture [...] [Dysphagia, unspecified type] Episodic Other gastrointestinal disorders (5 sources) Constipation; Translations: [Constipation, unspecified] Onset: 01-09-2025 08-19-2024 Episodic Other gastrointestinal disorders (2 sources) Constipation, unspecified; Translations: [Constipation, unspecified] Onset: 01-05-2025 Episodic Other injuries and conditions due to external causes (4 sources) Closed injury of head; Translations: [Head injury, unspecified] 08-09-2022 Episodic Other nervous system disorders (2 sources) Normal pressure hydrocephalus; Translations: [(Idiopathic) normal pressure hydrocephalus] Chronic Other nervous system disorders (2 sources) (Idiopathic) normal pressure hydrocephalus; Translations: [(Idiopathic) normal pressure hydrocephalus] Onset: 04-17-2022 Chronic Other nervous system disorders (8 sources) Poor balance; Translations: [Other symptoms involving nervous and musculoskeletal systems] Episodic Other nervous system disorders (4 sources) Slurred speech; Translations: [Slurred speech] 12-18-2024 Episodic Other nervous system disorders (1 source) Slurred speech; Translations: [Slurred speech] Onset: 12-30-2024 Episodic Other non-traumatic joint disorders (2 sources) [...] thyroid nodule] Onset: 08-09-2022 04-21-2023 Chronic Unclassified (4 sources) Dementia due to Parkinson's disease; 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] 12-18-2024 Chronic Unclassified (2 sources) CHOKED ON DINNER 05-25-2022 [...] Follow-up; Translations: [ER Follow-up] Onset: 02-05-2024 Unclassified (1 source) Patient encounter status 01-09-2025 Unclassified (2 sources) Establish Care Onset: 06-23-2024 Urinary tract infections (5 sources) Urinary tract infectious disease; Translations: [Urinary tract infection, site not specified] Onset: 11-06-2022 08-18-2022 Episodic Past or Other Problems Problem Classification Problem Date Documented Date Episodic/Chronic Blindness and vision defects (20 sources) Presbyopia; [...] Episodic Immunizations and screening for infectious disease (1 source) Encounter for immunization; Translations: [Encounter for immunization] Onset: 08-09-2022 Episodic Intracranial injury (3 sources) [...] 10-08-2022 06-24-2024 Episodic Other connective tissue disease (5 sources) Repeated falls; Translations: [Repeated falls] Onset: 01-29-2023 Episodic Other connective tissue disease (2 sources) Pain in left hand; Translations: [Pain in left hand] Onset: 08-18-2022 Episodic Other connective tissue disease (2 sources) Pain in right toe(s); Translations: [Pain in right toe(s)] Onset: 04-27-2024 Episodic Other injuries and conditions due to [...] gait and mobility] Onset: 12-26-2023 Episodic Other nutritional; endocrine; and metabolic disorders [...] scalp, and neck except eye(s)] Onset: 10-08-2022 3 Episodic Thyroid disorders (15 sources) Disorder of thyroid gland; Translations: [Disorder of thyroid, unspecified] Onset: 04-21-2023 04-21-2023 Episodic Unclassified (8 sources) Onset: 01-12-2024 Resolved: 02-05-2024 02-05-2024 Results Test Name Value Interpretation Reference Range Facility CBC (INCLUDES DIFF/PLT)on Basophils (Bld) [#/Vol] 0.043 10*3/uL Normal 0-200 [facility] Comment on above: Performed By: #### 9 266, 6399, 496, 69996 #### [facility] [place] [address] [employer] Supervisor: Russell Pagan MD Basophils/100 WBC (Bld) 0.6 % Normal [facility] Comment on above: Performed By: #### 9 2665, 63, 496, 30950 #### [facility] [place] [address] [employer] Supervisor: Russell Pagan MD Eosinophils (Bld) [#/Vol] 0.468 10*3/uL Normal 15-500 [facility] Comment on above: Performed By: #### 9 2665, 6399, 496, 64274 #### [facility] [place] [address] [employer] Supervisor: Russell Pagan MD Eosinophils/100 WBC (Bld) 6.5 % Normal [facility] Comment on above: Performed By: #### 9 266, 63, 496, 14844 #### [facility] [place] [address] [employer] Supervisor: Russell Pagan MD Erythrocyte distribution width (RBC) [Ratio] 13.0 % Normal 11.0-15.0 [facility] Comment on above: Performed By: #### 9 2665, 63, 496, 05147 #### [facility] [place] [address] [employer] Supervisor: Russell Pagan MD Hematocrit (Bld) [Volume fraction] 44.1 % Normal 35.0-45.0 [facility] Comment on above: Performed By: #### 9 2665, 6399, 496, 26402 #### [facility] [place] [address] [employer] Supervisor: Russell Pagan MD Hemoglobin (Bld) [Mass/Vol] 14.0 g/dL Normal 11.7-15.5 [facility] Comment on above: Performed By: #### 9 2665, 6399, 496, 20066 #### [facility] [place] [address] [employer] Supervisor: Russell Pagan MD Lymphocytes (Bld) [#/Vol] 1.123 10*3/uL Normal 850-3900 [facility] Comment on above: Performed By: #### 9 2665, 6399, 496, 05887 #### [facility] [place] [address] [employer] Supervisor: Russell Pagan MD Lymphocytes/100 WBC (Bld) 15.6 % Normal [facility] Comment on above: Performed By: #### 9 2665, 6399, 496, 91302 #### [facility] [place] [address] [employer] Supervisor: Russell Pagan MD MCH (RBC) [Entitic mass] 30.0 pg Normal 27.0-33.0 [facility] Comment on above: Performed By: #### 9 2665, 6399, 496, 60991 #### [facility] [place] [address] [employer] Supervisor: Russell Pagan MD MCHC (RBC) [Mass/Vol] 31.7 g/dL Low 32.0-36.[address] [facility] Comment on above: Result Comment: For adults, a slight decrease in the calculated MCHC value (in the range of 30 to 32 g/dL) is most likely not clinically significant; however, it should be interpreted with caution in correlation with other red cell parameters and the patient's clinical condition. Performed By: #### 9 2665, 6399, 496, 00835 #### [facility] [place] [address] [employer] Supervisor: Russell Pagan MD MCV (RBC) [Entitic vol] 94.6 fL Normal 80.0-100.0 [facility] Comment on above: Performed By: #### 9 266, 63, 496, 93321 #### [facility] [place] [address] [employer] Supervisor: Russell Pagan MD Monocytes (Bld) [#/Vol] 0.504 10*3/uL Normal 200-950 [facility] Comment on above: Performed By: #### 9 266, 63, 496, 98535 #### [facility] [place] [address] [employer] Supervisor: Russell Pagan MD Monocytes/100 WBC (Bld) 7.0 % Normal [facility] Comment on above: Performed By: #### 9 266, 63, 496, 05825 #### [facility] [place] [address] [employer] Supervisor: Russell Pagan MD Neutrophils (Bld) [#/Vol] 5.062 10*3/uL Normal 4322-9575 [facility] Comment on above: Performed By: #### 9 266, 63, 496, 96137 #### [facility] [place] [address] [employer] Supervisor: Russell Pagan MD Neutrophils/100 WBC (Bld) 70.3 % Normal [facility] Comment on above: Performed By: #### 9 266, 63, 496, 79437 #### [facility] [place] [address] [employer] Supervisor: Russell Pagan MD Platelet mean volume (Bld) [Entitic vol] 10.2 fL Normal 7.5-12.5 [facility] Comment on above: Performed By: #### 9 2665, 6399, 496, 71175 #### [facility] [place] [address] [employer] Supervisor: Russell Pagan MD Platelets (Bld) [#/Vol] 313 10*3/uL Normal 140-400 [facility] Comment on above: Performed By: #### 9 2665, 6399, 496, 99905 #### [facility] [place] [address] [employer] Supervisor: Rsusell Pagan MD RBC (Bld) [#/Vol] 4.66 10*6/uL Normal 3.80-5.10 [facility] Comment on above: Performed By: #### 9 2665, 6399, 496, 30263 #### [facility] [place] [address] [employer] Supervisor: Russell Pagan MD WBC (Bld) [#/Vol] 7.2 10*3/uL Normal 3.8-10.8 [facility] Comment on above: Performed By: #### 9 2665, 6399, 496, 65823 #### [facility] [place] [address] [employer] Supervisor: Russell Pagan MD CBC and Differentialon 01-06 Basophils (Bld) [#/Vol] 43 10*3/uL [facility] Basophils/100 WBC (Bld) 0.6 % [facility] Eosinophils (Bld) [#/Vol] 468 10*3/uL [facility] Eosinophils/100 WBC (Bld) 6.5 % [facility] Erythrocyte distribution width (RBC) [Ratio] 13 % 11.0 - 15.0 % [facility] Hematocrit (Bld) [Volume fraction] 44.1 % 35.0 - 45.0 % [facility] Hemoglobin (Bld) [Mass/Vol] 14 g/dL 11.7 - 15.5 g/dL [facility] Lymphocytes (Bld) [#/Vol] 1123 10*3/uL [facility] Lymphocytes/100 WBC (Bld) 15.6 % [facility] MCH (RBC) [Entitic mass] 30 pg 27.0 - 33.0 pg [facility] MCHC (RBC) [Mass/Vol] 31.7 g/dL Low 32.0 - 36.0 g/dL [facility] Comment on above: For adults, a slight decrease in the calculated MCHC value (in the range of 30 to 32 g/dL) is most likely not clinically significant; however, it should be interpreted with caution in correlation with other red cell parameters and the patient's clinical condition. MCV (RBC) [Entitic vol] 94.6 fL 80.0 - 100.0 fL [facility] Monocytes (Bld) [#/Vol] 504 10*3/uL [facility] Monocytes/100 WBC (Bld) 7 % [facility] Neutrophils (Bld) [#/Vol] 5062 10*3/uL [facility] Neutrophils/100 WBC (Bld) 70.3 % [facility] Platelet mean volume (Bld) [Entitic vol] 10.2 fL 7.5 - 12.5 fL [facility] Platelets (Bld) [#/Vol] 313 10*3/uL [facility] RBC (Bld) [#/Vol] 4.66 10*6/uL [facility] ealth WBC (Bld) [#/Vol] 7.2 10*3/uL [facility] alth COMPREHENSIVE METABOLIC PANE L W/ANION GAPon 01-06-2025 Albumin [Mass/Vol] 4.6 g/dL Normal 3.6-5.1 [facility] Comment on above: Performed By: #### 9 2665, 1899, 496, 60651 #### [facility] [place] [id number] [employer] Supervisor: Russell Pagan MD ALP [Catalytic activity/Vol] 50 U/L Normal 37-153 [facility] Comment on above: Performed By: #### 9 2665, 6399, 496, 15417 #### [facility] [address] [id number] [employer] Supervisor: Russell Pagan MD ALT [Catalytic activity/Vol] 17 U/L Normal 6-29 [facility] Comment on above: Performed By: #### 9 2665, 6399, 496, 83411 #### [facility] of [address], [address] [place] [address] [employer] Supervisor: Russell Pagan MD AST [Catalytic activity/Vol] 21 U/L Normal 10-35 [facility] Comment on above: Performed By: #### 9 2665, 6399, 496, 23729 #### [facility] of [address], [address] [place] [address] [employer] Supervisor: Russell Pagan MD Bilirubin [Mass/Vol] 0.3 mg/dL Normal 0.2-1.2 [facility] Comment on above: Performed By: #### 9 2665, 6399, 496, 27851 #### [facility] of [address], [address] [place] [address] [employer] Supervisor: Russell Pagan MD Calcium [Mass/Vol] 9.6 mg/dL Normal 8.6-10.4 [facility] Comment on above: Performed By: #### 9 2665, 63, 496, 86384 #### [facility] of [address], [address] [place] [address] [employer] Supervisor: Russell Pagan MD Chloride [Moles/Vol] 103 mmol/L Normal 98-110 [facility] Comment on above: Performed By: #### 9 6675, 63, 496, 11861 #### [facility] of [address], [address] [place] [address] [employer] Supervisor: Russell Pagan MD CO2 [Moles/Vol] 24 mmol/L Normal 20-32 [facility] Comment on above: Performed By: #### 9 2665, 6399, 496, 14966 #### [facility] of [address], [address] [place] [address] [employer] Supervisor: Russell Pagan MD Creatinine [Mass/Vol] 0.70 mg/dL Normal 0.50-1.05 [facility] [facility] Comment on above: Performed By: #### 9 2665, 6399, 496, 75340 #### [facility] [address], [address] [place] [address] [employer] Supervisor: Russell Pagan MD ELECTROLYTE BALANCE 13 mmol/L (calc) Normal 7-17 [facility] Comment on above: Performed By: #### 9 1345, 6399, 496, 46344 #### [facility] [place] [address] [employer] Supervisor: Russell Pagan MD GFR/1.73 sq M.predicted among non-blacks MDRD (S/P/Bld) [Vol rate/Area] 97 mL/min/{1.73_m2} Normal > OR = 60 [facility] Comment on above: Performed By: #### 9 2535, 2899, 496, 70206 #### [facility] [place] [address] [employer] Supervisor: Russell Pagan MD Glucose [Mass/Vol] 183 mg/dL High 65-139 [facility] Comment on above: Result Comment: Non-fasting reference interval For someone without known diabetes, a glucose value >125 mg/dL indicates that they may have diabetes and this should be confirmed with a follow-up test. Performed By: #### 9 8585, 5899, 496, 97222 #### [facility] [place] [address] [employer] Supervisor: Russell Pagan MD Potassium [Moles/Vol] 4.6 mmol/L Normal 3.5-5.3 [facility] Comment on above: Performed By: #### 9 2665, 6399, 496, 51158 #### [facility] [place] [address] [employer] Supervisor: Russell Pagan MD Protein [Mass/Vol] 7.2 g/dL Normal 6.1-8.1 [facility] Comment on above: Performed By: #### 9 2665, 2399, 496, 11408 #### [facility] [place] [address] [employer] Supervisor: Russell Pagan MD Sodium [Moles/Vol] 140 mmol/L Normal 135-146 [facility] Comment on above: Performed By: #### 9 2665, 6399, 496, 16690 #### [facility] [address] [place] [address], [address] [place] [phone] [employer] Supervisor: Russell Pagan MD Urea nitrogen [Mass/Vol] 25 mg/dL Normal 7-25 [facility] Comment on above: Performed By: #### 9 2665, 6399, 496, 43594 #### [facility] [address] [place] [address], [address] [place] [phone] [employer] Supervisor: Russell Pagan MD Comprehensive metabolic 2000 panelon 01-06-2025 Albumin [Mass/Vol] 4.6 g/dL 3.6 - 5.1 g/dL [facility] ALP [Catalytic activity/Vol] 50 U/L 37 - 153 U/L [facility] ALT [Catalytic activity/Vol] 17 U/L 6 - 29 U/L [facility] Anion gap [Moles/Vol] 13 mmol/L [facility] AST [Catalytic activity/Vol] 21 U/L 10 - 35 U/L [facility] Bilirubin [Mass/Vol] 0.3 mg/dL 0.2 - 1 .2 mg/dL [facility] Calcium [Mass/Vol] 9.6 mg/dL 8.6 - 10. 4 mg/dL [facility] Chloride [Moles/Vol] 103 mmol/L 98 - 11 0 mmol/L [facility] CO2 [Moles/Vol] 24 mmol/L 20 - 32 mmol/L [facility] Creatinine [Mass/Vol] 0.7 mg/dL 0.50 - 1.05 mg/dL [facility] GFR/1.73 sq M.predicted among non-blacks MDRD (S/P/Bld) [Vol rate/Area] 97 mL/min/{1.73_m2} > OR = 60 mL/min/1.73m2 [facility] Glucose [Mass/Vol] 183 mg/dL High 65 - 139 mg/dL [facility] Comment on above: Non-fasting reference interval For someone without known diabetes, a glucose value >125 mg/dL indicates that they may have diabetes and this should be confirmed with a follow-up test. Potassium [Moles/Vol] 4.6 mmol/L 3.5 - 5.3 mmol/L [facility] Protein [Mass/Vol] 7.2 g/dL 6.1 - 8.1 g/dL [facility] Sodium [Moles/Vol] 140 mmol/L 135 - 146 mmol/L [facility] Urea nitrogen [Mass/Vol] 25 mg/dL 7 - 25 mg/dL [facility] HEMOGLOBIN A1con 01-06-2025 HbA1c (Bld) [Mass fraction] 7.3 % High <5.7 [facility] Comment on above: Result Comment: For someone without known diabetes, [...] of diabetes for children. Performed By: #### 9 1046, 6309, 497, 47175 #### [facility] [address], [address] [place] [phone] [employer] Supervisor: Russell Pagan MD HbA1c (Bld) [Mass fraction]o n 01-06-2025 Interpretation and review of laboratory results Abnormal [facility] FASTING:NO FASTING: NO [facility] Hemoglobin A1con 01-06-2025 HbA1c (Bld) [Mass fraction] 7.3 % High NINF - 5.7 % [facility] Comment on above: For someone without known diabetes, a hemoglobin [...] A1c for diagnosis of diabetes for children. LIPID PANEL WITH REFLEX TO D IRECT LDLon 01-06-2025 Cholesterol [Mass/Vol] 103 mg/dL Normal <200 [facility] Comment on above: Order Comment: FASTI NG:NO FASTING: NO Performed By: #### 9 8815, 6399, 496, 29445 #### [facility] [address], [address] [place] [address] [employer] Supervisor: Russell Pagan MD Cholesterol in HDL [Mass/Vol] 36 mg/dL Low > OR = 50 [facility] Comment on above: Order Comment: FASTI NG:NO FASTING: NO Performed By: #### 9 2665, 6399, 496, 82580 #### [facility] [address], [address] [place] [address] [employer] Supervisor: Russell Pagan MD Cholesterol in LDL [Mass/Vol] 44 mg/dL Normal [facility] Comment on above: Order Comment: FASTI NG:NO FASTING: NO Result Comment: Refe rence range: <100 Desirable range <100 mg/dL for primary prevention; <70 mg/dL for patients with CHD or diabetic patients with > or = 2 CHD risk factors. LDL-C is now calculated using the Wayne calculation, which is a validated novel method providing better accuracy than the Friedewald equation in the estimation of LDL-C. Albaro DAY et al. NELDA. 2013;310(19): 0422-6697 (http://education.Seamless.Pixel Qi/faq/TPJ799) Performed By: #### 9 2665, 6399, 496, 48904 #### [facility] [address], [address] [place] [address] [employer] Supervisor: Russell Pagan MD Cholesterol.total/Chol esterol in HDL [Mass ratio] 2.9 {ratio} Normal <5.0 [facility] Comment on above: Order Comment: FASTI NG:NO FASTING: NO Performed By: #### 9 2665, 6399, 496, 06301 #### [facility] [place] [address] [employer] Supervisor: Russell Pagan MD NON HDL CHOLESTEROL 67 mg/dL (calc) Normal <130 [facility] Comment on above: Order Comment: FASTI NG:NO FASTING: NO Result Comment: For patients with diabetes plus 1 major ASCVD risk factor, treating to a non-HDL-C goal of <100 mg/dL (LDL-C of <70 mg/dL) is considered a therapeutic option. Performed By: #### 9 2665, 6399, 496, 04954 #### [facility] [address] , [address] [place] [address] [employer] Supervisor: Russell Pagan MD Triglyceride [Mass/Vol] 146 mg/dL Normal <150 [facility] Comment on above: Order Comment: FASTI NG:NO FASTING: NO Performed By: #### 9 2665, 6399, 496, 52624 #### [facility] [address], [address] [place] [address] [employer] Supervisor: Russell Pagan MD Lipid 1996 panelon Cholesterol [Mass/Vol] 103 mg/dL [facility] - 200 mg/dL [facility] Cholesterol in HDL [Mass/Vol] 36 mg/dL Low > OR = 50 [facility] Cholesterol in LDL [Mass/Vol] 44 mg/dL mg/dL (calc) [facility] Comment on above: Reference range: <10 0 Desirable range <100 mg/dL for primary prevention; <70 mg/dL for patients with CHD or diabetic patients with > or = 2 CHD risk factors. LDL-C is now calculated using the Albaro-Danielle calculation, which is a validated novel method providing better accuracy than the Friedewald equation in the estimation of LDL-C. Albaro DAY et al. NELDA. 2013;310(19): 9265-8359 (http://education.Seamless.Pixel Qi/faq/BHF453) Cholesterol non HDL [Mass/Vol] 67 mg/dL [facility] Comment on above: For patients with di abetes plus 1 major ASCVD risk factor, treating to a non-HDL-C goal of <100 mg/dL (LDL-C of <70 mg/dL) is considered a therapeutic option. Cholesterol.total/Chol esterol in HDL [Mass ratio] 2.9 {ratio} [facility] Triglyceride [Mass/Vol] 146 mg/dL [facility] - 150 mg/dL [facility] No Panel Informationon 01-06 Interpretation and review of laboratory results Abnormal [facility] FASTING:NO FASTING: NO [facility] TSH DL <= 0.005 mIU/L Qnon 0 7-31-2025 TSH Qn 1.15 m[IU]/L [facility] FASTING:NO FASTING: NO [facility] TSH W/REFLEX TO FT4on 2024 TSH W/REFLEX TO FT4 1.15 mIU/L Normal 0.40-4.50 [facility] Comment on above: Performed By: #### 9 2665, 6399, 496, 75746 #### [facility] [address], [address] [place] [address] [employer] Supervisor: Russell Pagan MD Basic Metabolic Profile (BMP )on 12-23-2024 BUN Normal 4-[address] [facility] Comment on above: Result Comment: Canc elled via OM: Order cancelled - Patient discharged Performed By: #### L 501.2300, [id number] #### [facility] [address] [place], [address] BUN/CRE Normal 10-[address] [facility] Comment on above: Result Comment: Canc elled via OM: Order cancelled - Patient discharged Performed By: #### L 501.2300, [id number] #### [facility] [address] [place], [address] Calcium Normal 7.6-11.[address] [facility] Comment on above: Result Comment: Canc elled via OM: Order cancelled - Patient discharged Performed By: #### L 501.2300, [id number] #### [facility] [address] [place], [address] CL Normal 98-[address] [facility] Comment on above: Result Comment: Canc elled via OM: Order cancelled - Patient discharged Performed By: #### L 501.2300, [id number] #### [facility] [address] [place], [address] CO2 Normal 21.0-32.[address] [facility] Comment on above: Result Comment: Canc elled via OM: Order cancelled - Patient discharged Performed By: #### L 501.2300, [id number] #### [facility] [address] [place], [address] CREAT,SERUM Normal 0.70-1.[address] [facility] Comment on above: Result Comment: Canc elled via OM: Order cancelled - Patient discharged Performed By: #### L 501.2300, [id number] #### [facility] [address] [place], [address] eGFR Normal >[address] [facility] Comment on above: Result Comment: Canc elled via OM: Order cancelled - Patient discharged Performed By: #### L 501.2300, [id number] #### [facility] [address] [place], [address] GAP Normal 5-[address] [facility] Comment on above: Result Comment: Canc elled via OM: Order cancelled - Patient discharged Performed By: #### L 501.2300, [id number] #### [facility] [address] [place], [address] GLU Normal 70-[address] [facility] Comment on above: Result Comment: Canc elled via OM: Order cancelled - Patient discharged Performed By: #### L 501.2300, [id number] #### [facility] [address] [place], [address] Potassium Normal 3.3-5.[address] [facility] Comment on above: Result Comment: Canc elled via OM: Order cancelled - Patient discharged Performed By: #### L 501.2300, [id number] #### [facility] [address] [place], [address] Basic Metabolic Profile (BMP) Normal 133-[address] [facility] Comment on above: Result Comment: Canc elled via OM: Order cancelled - Patient discharged Performed By: #### L 501.2300, [id number] #### [facility] [address] [place], [address] CBC W/Diff, Automatedon 07-1 Absolute Neut Normal 2.0-7.[address] [facility] Comment on above: Result Comment: Canc elled via OM: Order cancelled - Patient discharged Performed By: #### L 501.2300, [id number] #### [facility] [address] [place], [address] HCT Normal 37-[address] [facility] Comment on above: Result Comment: Canc elled via OM: Order cancelled - Patient discharged Performed By: #### L 501.2300, [id number] #### [facility] [address] [place], [address] HGB Normal 12.0-15.[address] [facility] Comment on above: Result Comment: Canc elled via OM: Order cancelled - Patient discharged Performed By: #### L 501.2300, [id number] #### [facility] [address] [place], [address] MCH Normal 27.0-32.[address] [facility] Comment on above: Result Comment: Canc elled via OM: Order cancelled - Patient discharged Performed By: #### L 501.2300, [id number] #### [facility] [address] [place], [address] MCHC Normal 32-[address] [facility] Comment on above: Result Comment: Canc elled via OM: Order cancelled - Patient discharged Performed By: #### L 501.2300, [id number] #### [facility] [address] [place], [address] MCV Normal 81-[address] [facility] Comment on above: Result Comment: Canc elled via OM: Order cancelled - Patient discharged Performed By: #### L 501.2300, [id number] #### [facility] [address] [place], [address] NEUT% Normal 47-[address] [facility] Comment on above: Result Comment: Canc elled via OM: Order cancelled - Patient discharged Performed By: #### L 501.2300, [id number] #### [facility] [address] [place], [address] PLT Normal 150-[address] [facility] Comment on above: Result Comment: Canc elled via OM: Order cancelled - Patient discharged Performed By: #### L 501.2300, [id number] #### [facility] [address] [place], [address] RBC Normal 4.2-5.[address] [facility] Comment on above: Result Comment: Canc elled via OM: Order cancelled - Patient discharged Performed By: #### L 501.2300, [id number] #### [facility] [address] [place], [address] RDW CV Normal 11.6-14.[address] [facility] Comment on above: Result Comment: Canc elled via OM: Order cancelled - Patient discharged Performed By: #### L 501.2300, [id number] #### [facility] [address] [place], [address] RDW SD Normal 35.1-43.[address] [facility] Comment on above: Result Comment: Canc elled via OM: Order cancelled - Patient discharged Performed By: #### L 501.2300, [id number] #### [facility] [address] [place], [address] WBC Normal 4.4-11.[address] [facility] Comment on above: Result Comment: Canc elled via OM: Order cancelled - Patient discharged Performed By: #### L 501.2300, [id number] #### [facility] [address] [place], [address] Glucose (Bld) [Mass/Vol]Orde red By: Shante Torres on 12-23-2024 Glucose [Mass/Vol] 172 mg/dL [facility] Interpretation and review of laboratory results Abnormal [facility] Basic Metabolic Profile (BMP )on 12-22-2024 BUN Normal 4-[address] [facility] Comment on above: Result Comment: Canc elled via OM: Order cancelled - Patient discharged Performed By: #### L 501.2300, [id number] #### [facility] [address] [place], [address] BUN/CRE Normal 10-[address] [facility] Comment on above: Result Comment: Canc elled via OM: Order cancelled - Patient discharged Performed By: #### L 501.2300, [id number] #### [facility] [address] [place], [address] Calcium Normal 7.6-11.[address] [facility] Comment on above: Result Comment: Canc elled via OM: Order cancelled - Patient discharged Performed By: #### L 501.2300, [id number] #### [facility] [address] [place], [address] CL Normal 98-[address] [facility] Comment on above: Result Comment: Canc elled via OM: Order cancelled - Patient discharged Performed By: #### L 501.2300, [id number] #### [facility] [address] [place], [address] CO2 Normal 21.0-32.[address] [facility] Comment on above: Result Comment: Canc elled via OM: Order cancelled - Patient discharged Performed By: #### L 501.2300, [id number] #### [facility] [address] [place], [address] CREAT,SERUM Normal 0.70-1.[address] [facility] Comment on above: Result Comment: Canc elled via OM: Order cancelled - Patient discharged Performed By: #### L 501.2300, [id number] #### [facility] [address] [place], [address] eGFR Normal >[address] [facility] Comment on above: Result Comment: Canc elled via OM: Order cancelled - Patient discharged Performed By: #### L 501.2300, [id number] #### [facility] [address] [place], [address] GAP Normal 5-[address] [facility] Comment on above: Result Comment: Canc elled via OM: Order cancelled - Patient discharged Performed By: #### L 501.2300, [id number] #### [facility] [address] [place], [address] GLU Normal 70-[address] [facility] Comment on above: Result Comment: Canc elled via OM: Order cancelled - Patient discharged Performed By: #### L 501.2300, [id number] #### [facility] [address] [place], [address] Potassium Normal 3.3-5.[address] [facility] Comment on above: Result Comment: Canc elled via OM: Order cancelled - Patient discharged Performed By: #### L 501.2300, [id number] #### [facility] [address] [place], [address] Basic Metabolic Profile (BMP) Normal 133-[address] [facility] Comment on above: Result Comment: Canc elled via OM: Order cancelled - Patient discharged Performed By: #### L 501.2300, [id number] #### [facility] [address] [place], [address] CBC W/Diff, Automatedon 07-1 Absolute Neut Normal 2.0-7.[address] [facility] Comment on above: Result Comment: Canc elled via OM: Order cancelled - Patient discharged Performed By: #### L 501.2300, [id number] #### [facility] [address] [place], [address] HCT Normal 37-[address] [facility] Comment on above: Result Comment: Canc elled via OM: Order cancelled - Patient discharged Performed By: #### L 501.2300, [id number] #### [facility] [address] [place], [address] HGB Normal 12.0-15.[address] [facility] Comment on above: Result Comment: Canc elled via OM: Order cancelled - Patient discharged Performed By: #### L 501.2300, [id number] #### [facility] [address] [place], [address] MCH Normal 27.0-32.[address] [facility] Comment on above: Result Comment: Canc elled via OM: Order cancelled - Patient discharged Performed By: #### L 501.2300, [id number] #### [facility] [address] [place], [address] MCHC Normal 32-[address] [facility] Comment on above: Result Comment: Canc elled via OM: Order cancelled - Patient discharged Performed By: #### L 501.2300, [id number] #### [facility] [address] [place], [address] MCV Normal 81-[address] [facility] Comment on above: Result Comment: Canc elled via OM: Order cancelled - Patient discharged Performed By: #### L 501.2300, [id number] #### [facility] [address] [place], [address] NEUT% Normal 47-[address] [facility] Comment on above: Result Comment: Canc elled via OM: Order cancelled - Patient discharged Performed By: #### L 501.2300, [id number] #### [facility] [address] [place], [address] PLT Normal 150-[address] [facility] Comment on above: Result Comment: Canc elled via OM: Order cancelled - Patient discharged Performed By: #### L 501.2300, [id number] #### [facility] [address] [place], [address] RBC Normal 4.2-5.[address] [facility] Comment on above: Result Comment: Canc elled via OM: Order cancelled - Patient discharged Performed By: #### L 501.2300, [id number] #### [facility] [address] [place], [address] RDW CV Normal 11.6-14.[address] [facility] Comment on above: Result Comment: Canc elled via OM: Order cancelled - Patient discharged Performed By: #### L 501.2300, [id number] #### [facility] [address] [place], [address] RDW SD Normal 35.1-43.[address] [facility] Comment on above: Result Comment: Canc elled via OM: Order cancelled - Patient discharged Performed By: #### L 501.2300, [id number] #### [facility] [address] [place], [address] WBC Normal 4.4-11.[address] [facility] Comment on above: Result Comment: Canc elled via OM: Order cancelled - Patient discharged Performed By: #### L 501.2300, [id number] #### [facility] [address] [place], [address] Absolute lymphocyte countOrd ered By: Antwan Covington on 12-21-2024 Lymphocytes Auto (Unsp spec) [#/Vol] 0.85 10*3/uL 0.83-4.[address] [facility] Absolute neutrophil countOrd ered By: Antwan Covington on 12-21-2024 Neutrophils (Bld) [#/Vol] 4.8 10*3/uL 2.0-7.[address] [facility] Anion gap in Serum or Plasma Ordered By: Antwan Covington on 12-21-2024 Anion gap [Moles/Vol] 11 mmol/L 10-21 [facility] Automated lymphocyte count a s percentage of total leukocytesOrdered By: Antwan Covington on 12-21-2024 Lymphocytes/100 WBC Auto (Unsp spec) 13.5 % Low 19-[address] [facility] BUN/creatinine ratioOrdered By: Antwan Covington on 12-21-2024 Urea nitrogen/Creatinine [Mass ratio] 19.6 mg/mg - [facility] Basic Metabolic Profile (BMP )on 12-21-2024 BUN/CRE 19.6 RATIO Normal - [facility] Comment on above: Performed By: #### L [id number] #### [facility] [address] [place], [address] Calcium [Mass/Vol] 7.8 mg/dL Normal 7.6-11.0 [facility] Comment on above: Performed By: #### L 501.6901 #### [facility] [address] [place], [address] Chloride [Moles/Vol] 113 mmol/L High 98-108 [facility] Comment on above: Performed By: #### L 501.6901 #### [facility] [address] [place], [address] CO2 [Moles/Vol] 20.4 mmol/L Low 21.0-32.[address] [facility] Comment on above: Performed By: #### L [id number] #### [facility] [address] [place], [address] Creatinine [Mass/Vol] 0.57 mg/dL Low 0.70-1.20 [facility] Comment on above: Performed By: #### L [id number] #### [facility] [address] [place], [address] ECRCL 95.73 ml/min Normal 50-[address] [facility] Comment on above: Performed By: #### L [id number] #### [facility] [address] [place], [address] GAP 11 Normal 5-[address] [facility] Comment on above: Performed By: #### L 501.6901 #### [facility] [address] [place], [address] GFR/1.73 sq M.predicted among non-blacks MDRD (S/P/Bld) [Vol rate/Area] 102 mL/min/{1.73_m2} Normal >[address] [facility] Comment on above: Result Comment: mL/m in/1.73m2 CKD-EPI Creatinine Equation (2020) Performed By: #### L [id number] #### [facility] [address] [place], [address] Glucose [Mass/Vol] 123 mg/dL High 70-99 [facility] Comment on above: Performed By: #### L [id number] #### [facility] [address] [place], [address] Potassium [Moles/Vol] 3.7 mmol/L Normal 3.3-5.1 [facility] Comment on above: Performed By: #### L 501.6901 #### [facility] [address] [place], [address] Sodium [Moles/Vol] 144 mmol/L Normal 133-145 [facility] Comment on above: Performed By: #### L 501.6901 #### [facility] [facility] [address] [place], [address] Urea nitrogen [Mass/Vol] 11 mg/dL Normal 4-[address] [facility] Comment on above: Performed By: #### L 501.6901 #### [facility] [address] [place], [address] Basophil percentageOrdered B y: Antwan Covington on 12-21-2024 Basophils/100 WBC (Bld) 0.2 % 0-[address] [facility] Bedside Glucoseon 12-21-2024 FINGERSTICK GLU 125 mg/dL High 74-[address] [facility] Comment on above: Result Comment: VONNIE LAURENT OF PATIENT CARE PER NURSING PROTOCOL Performed By: #### L 501.2300, L501.5200 #### [facility] [address] [place], [address] CBC W/Diff, Automatedon 12-07 Absolute Lymph 0.85 X10 3/uL Normal 0.83-4.[address] [facility] Comment on above: Performed By: #### L 501.2300, L500.2500, L501.5200, L100.0100 ####[facility] [address] [place], [address] Absolute Neut 4.8 X10 3/uL Normal 2.0-7.[address] [facility] Comment on above: Performed By: #### L 501.2300, L500.2500, L501.5200, L100.0100 ####[facility] [address] [place], [address] Basophils/100 WBC (Bld) 0.2 % Normal 0-[address] [facility] Comment on above: Performed By: #### L 501.2300, L500.2500, L501.5200, L100.0100 ####[facility] [address] [place], [address] Eosinophils/100 WBC (Bld) 3.5 % Normal 0-[address] [facility] Comment on above: Performed By: #### L 501.2300, L500.2500, L501.5200, L100.0100 ####[facility] [address] [place], [address] Erythrocyte distribution width (RBC) [Ratio] 13.0 % Normal 11.6-14.[address] [facility] Comment on above: Performed By: #### L 501.2300, L500.2500, L501.5200, L100.0100 ####[facility] [address] [place], [address] Hematocrit (Bld) [Volume fraction] 41.1 % Normal 37-[address] [facility] Comment on above: Performed By: #### L 501.2300, L500.2500, L501.5200, L100.0100 ####[facility] [address] [place], [address] Hemoglobin (Bld) [Mass/Vol] 12.8 g/dL Normal 12.0-15.[address] [facility] Comment on above: Performed By: #### L 501.2300, L500.2500, L501.5200, L100.0100 ####[facility] [address] [place], [address] IG% 0.300 Normal 0.0-0.[address] [facility] Comment on above: Result Comment: IG% - Immature Granulocytes (promyelocytes, myelocytes and metamyelocytes) > 1% indicates that a LEFT SHIFT is Present. Performed By: #### L 501.2300, L500.2500, L501.5200, L100.0100 ####[facility] [address] [place], [address] Lymphocytes/100 WBC (Bld) 13.5 % Low 19-[address] [facility] Comment on above: Performed By: #### L 501.2300, L500.2500, L501.5200, L100.0100 ####[facility] [address] [place], [address] MCH (RBC) [Entitic mass] 29.4 pg Normal 27.0-32.[address] [facility] Comment on above: Performed By: #### L 501.2300, L500.2500, L501.5200, L100.0100 ####[facility] [address] [place], [address] MCHC (RBC) [Mass/Vol] 31.1 g/dL Low 32-36 [facility] Comment on above: Performed By: #### L 501.2300, L500.2500, L501.5200, L100.0100 ####[facility] [address] [place], [address] MCV (RBC) [Entitic vol] 94.5 fL Normal 81-[address] [facility] Comment on above: Performed By: #### L 501.2300, L500.2500, L501.5200, L100.0100 ####[facility] [address] [place], [address] Monocytes/100 WBC (Bld) 6.4 % Normal 0-[address] [facility] Comment on above: Performed By: #### L 501.2300, L500.2500, L501.5200, L100.0100 ####[facility] [address] [place], [address] Neutrophils/100 WBC (Bld) 76.1 % High 47-[address] [facility] Comment on above: Performed By: #### L 501.2300, L500.2500, L501.5200, L100.0100 ####[facility] [address] [place], [address] Nucleated RBC (Bld) [#/Vol] 0 10*3/uL Normal 0-[address] [facility] Comment on above: Performed By: #### L 501.2300, L500.2500, L501.5200, L100.0100 ####[facility] [address] [place], [address] Platelet mean volume (Bld) [Entitic vol] 9.3 fL Normal 6.2-12.[address] [facility] Comment on above: Performed By: #### L 501.2300, L500.2500, L501.5200, L100.0100 ####[facility] [address] [place], [address] Platelets (Bld) [#/Vol] 219 10*3/uL Normal 150-[address] [facility] Comment on above: Performed By: #### L 501.2300, L500.2500, L501.5200, L100.0100 ####[facility] [address] [place], [address] RBC (Bld) [#/Vol] 4.35 10*6/uL Normal 4.2-5.4 [facility] Comment on above: Performed By: #### L 501.2300, L500.2500, L501.5200, L100.0100 ####[facility] [address] [place], [address] RDW SD 45.0 fl High 35.1-43.[address] [facility] Comment on above: Performed By: #### L 501.2300, L500.2500, L501.5200, L100.0100 ####[facility] [address] [place], [address] WBC (Bld) [#/Vol] 6.3 10*3/uL Normal 4.4-11.0 [facility] Comment on above: Performed By: #### L 501.2300, L500.2500, L501.5200, L100.0100 ####[facility] [address] [place], [address] Carbon dioxide, total [Moles /volume] in Central venous bloodOrdered By: Antwan Covington on 12-21-2024 CO2 [Moles/Vol] 20.4 mmol/L Low 21.0-32.[address] [facility] Chloride assayOrdered By: Charlie Covington on 12-21-2024 Chloride [Moles/Vol] 113 mmol/L High 98-108 [facility] Eosinophil percentageOrdered By: Antwan Covington on 12-21-2024 Eosinophils/100 WBC (Bld) 3.5 % 0-[address] [facility] Erythrocyte distribution wid th ratioOrdered By: Antwan Covington on 12-21-2024 Erythrocyte distribution width (RBC) [Ratio] 13.0 % 11.6-14.[address] [facility] Erythrocyte distribution wid th standard deviationOrdered By: Antwan Covington on 12-21-2024 Erythrocyte distribution width (RBC) [Ratio] 45.0 fl High 35.1-43.[address] [facility] Glomerular filtration rate ( GFR) estimation/1.73 sq m using serum, plasma, or whole bOrdered By: Antwan Covington on 12-21-2024 GFR/1.73 sq M.predicted among non-blacks MDRD (S/P/Bld) [Vol rate/Area] 102 mL/min/{1.73_m2} >[address] [facility] Comment on above: mL/min/1.73m2 CKD-EP I Creatinine Equation (2020) [facility] deOrdered By: Antwan Covington on 12-21-2024 Glucose [Mass/Vol] 125 mg/dL High 74-106 [facility] Comment on above: MANAGEMENT OF PATIEN T CARE PER NURSING PROTOCOL Hematocrit Auto (Bld) [Volum e fraction]Ordered By: Antwan Covington on 12-21-2024 Hematocrit (Bld) [Volume fraction] 41.1 % 37-[address] [facility] Hemoglobin measurementOrdere d By: Antwan Covington on 12-21-2024 Hemoglobin (Bld) [Mass/Vol] 12.8 g/dL 12.0-15.[address] [facility] Immature granulocytes/100 WB C Auto (Bld)Ordered By: Antwan Covington on 12-21-2024 Immature granulocytes/100 WBC (Bld) 0.300 % 0.0-0.[address] [facility] Comment on above: IG% - Immature Granu locytes (promyelocytes, myelocytes and metamyelocytes) > 1% indicates that a LEFT SHIFT is Present. MCV (mean corpuscular volume ) determinationOrdered By: Antwan Covington on 12-21-2024 MCV (RBC) [Entitic vol] 94.5 fL 81-[address] [facility] Magnesiumon 12-21-2024 Magnesium [Mass/Vol] 1.8 mg/dL Normal 1.5-2.2 [facility] Comment on above: Performed By: #### L 501.3613 #### [facility] [address] [place], [address] Magnesium measurement (mass/ volume)Ordered By: Antwan Covington on 12-21-2024 Magnesium (Unsp spec) [Mass/Vol] 1.8 mg/dL 1.5-2.[address] [facility] Mean corpuscular hemoglobin (MCH) determinationOrdered By: Antwan Covington on 12-21-2024 MCH (RBC) [Entitic mass] 29.4 pg 27.0-32.[address] [facility] Mean corpuscular hemoglobin concentration (MCHC) determinationOrdered By: Antwan Covington on 12-21-2024 MCHC (RBC) [Mass/Vol] 31.1 g/dL Low 32-36 [facility] Mean platelet volume determi nationOrdered By: Antwan Covington on 12-21-2024 Platelet mean volume (Bld) [Entitic vol] 9.3 fL 6.2-12.[address] [facility] Monocyte percentageOrdered B y: Antwan Covington on 12-21-2024 Monocytes/100 WBC (Bld) 6.4 % 0-[address] [facility] Neutrophil percentageOrdered By: Antwan Covington on 12-21-2024 Neutrophils/100 WBC (Bld) 76.1 % High 47-[address] [facility] Nucleated red blood cell per centageOrdered By: Antwan Covington on 12-21-2024 Nucleated RBC/100 WBC (Bld) [Ratio] 0 % 0-[address] [facility] Phosphoruson 12-21-2024 Phosphate [Mass/Vol] 1.8 mg/dL Low 2.7-4.5 [facility] Comment on above: Performed By: #### L 501.6904 #### [facility] [place], [address] Platelet countOrdered By: Charlie Covington on 12-21-2024 Platelets (Bld) [#/Vol] 219 10*3/uL 150-[address] [facility] Potassium measurement (mass/ volume)Ordered By: Antwan Covington on 12-21-2024 Potassium (Unsp spec) [Mass/Vol] 3.7 mmol/L 3.3-5.[address] [facility] RBC Auto (Bld) [#/Vol]Ordere d By: Antwan Covington on 12-21-2024 RBC (Bld) [#/Vol] 4.35 10*6/uL 4.2-5.4 [facility] Serum creatinine measurement (mass/volume)Ordered By: Antwan Covington on 12-21-2024 Creatinine [Mass/Vol] 0.57 mg/dL Low 0.70-1.20 [facility] Serum glucose measurement (m ass/volume)Ordered By: Antwan Covington on 12-21-2024 Glucose [Mass/Vol] 123 mg/dL High 70-99 [facility] Serum or plasma calcium ofelia urement (mass/volume)Ordered By: Antwan Covington on 12-21-2024 Calcium [Mass/Vol] 7.8 mg/dL 7.6-11.0 [facility] Serum or plasma urea nitroge n measurement (mass/volume)Ordered By: Antwan Covington on 12-21-2024 Urea nitrogen [Mass/Vol] 11 mg/dL 4-[address] [facility] Sodium levelOrdered By: Delio Covington on 12-21-2024 Sodium [Moles/Vol] 144 mmol/L 133-145 [facility] White blood cell (WBC) count Ordered By: Antwan Covington on 12-21-2024 WBC (Bld) [#/Vol] 6.3 10*3/uL 4.4-11.0 [facility] Bedside Glucoseon 12-20-2024 FINGERSTICK GLU 133 mg/dL High 74-[address] [facility] Comment on above: Result Comment: VONNIE LAURENT OF PATIENT CARE PER NURSING PROTOCOL Performed By: #### L 501.2300, L501.5200 #### [facility] [address] [place], [address] FINGERSTICK GLU 105 mg/dL Normal 74-[address] [facility] Comment on above: Result Comment: VONNIE GEMENT OF PATIENT CARE PER NURSING PROTOCOL Performed By: #### L 501.2300, L501.5200 #### [facility] [address] [place], [address] FINGERSTICK GLU 165 mg/dL High 74-[address] [facility] Comment on above: Result Comment: VONNIE GEMENT OF PATIENT CARE PER NURSING PROTOCOL Performed By: #### L 501.2300, L501.5200 #### [facility] [address] [place], [address] FINGERSTICK GLU 114 mg/dL High 74-[address] [facility] Comment on above: Result Comment: VONNIE GEMENT OF PATIENT CARE PER NURSING PROTOCOL Performed By: #### L 501.2300, L501.5200 #### [facility] [address] [place], [address] Bilirubin, totalOrdered By: Ryanne Simons on 12-20-2024 Bilirubin [Mass/Vol] 0.19 mg/dL 0.00-1.30 [facility] CBC W/Diff, Automatedon 12-07 Absolute Lymph 1.05 X10 3/uL Normal 0.83-4.[address] [facility] Comment on above: Order Comment: SPECI MEN NOT RAN DURING MORNING HOURS, FOUND IN OUTSTANDING. Performed By: #### L 100.0100, L500.4050 #### [facility] [address] [place], [address] Absolute Neut 3.4 X10 3/uL Normal 2.0-7.[address] [facility] Comment on above: Order Comment: SPECI MEN NOT RAN DURING MORNING HOURS, FOUND IN OUTSTANDING. Performed By: #### L 100.0100, L500.4050 #### [facility] [address] [place], [address] Basophils/100 WBC (Bld) 0.2 % Normal 0-[address] [facility] Comment on above: Order Comment: SPECI MEN NOT RAN DURING MORNING HOURS, FOUND IN OUTSTANDING. Performed By: #### L 100.0100, L500.4050 #### [facility] [address] [place], [address] Eosinophils/100 WBC (Bld) 5.0 % Normal 0-[address] [facility] Comment on above: Order Comment: SPECI MEN NOT RAN DURING MORNING HOURS, FOUND IN OUTSTANDING. Performed By: #### L 100.0100, L500.4050 #### [facility] [address] [place], [address] Erythrocyte distribution width (RBC) [Ratio] 13.2 % Normal 11.6-14.[address] [facility] Comment on above: Order Comment: SPECI MEN NOT RAN DURING MORNING HOURS, FOUND IN OUTSTANDING. Performed By: #### L 100.0100, L500.4050 #### [facility] [address] [place], [address] Hematocrit (Bld) [Volume fraction] 41.9 % Normal 37-[address] [facility] Comment on above: Order Comment: SPECI MEN NOT RAN DURING MORNING HOURS, FOUND IN OUTSTANDING. Performed By: #### L 100.0100, L500.4050 #### [facility] [address] [place], [address] Hemoglobin (Bld) [Mass/Vol] 12.7 g/dL Normal 12.0-15.[address] [facility] Comment on above: Order Comment: SPECI MEN NOT RAN DURING MORNING HOURS, FOUND IN OUTSTANDING. Performed By: #### L 100.0100, L500.4050 #### [facility] [address] [place], [address] IG% 0.200 Normal 0.0-0.[address] [facility] Comment on above: Order Comment: SPECI MEN NOT RAN DURING MORNING HOURS, FOUND IN OUTSTANDING. Result Comment: IG% - Immature Granulocytes (promyelocytes, myelocytes and metamyelocytes) > 1% indicates that a LEFT SHIFT is Present. Performed By: #### L 100.0100, L500.4050 #### [facility] [address] [place], [address] Lymphocytes/100 WBC (Bld) 20.3 % Normal 19-[address] [facility] Comment on above: Order Comment: SPECI MEN NOT RAN DURING MORNING HOURS, FOUND IN OUTSTANDING. Performed By: #### L 100.0100, L500.4050 #### [facility] [address] [place], [address] MCH (RBC) [Entitic mass] 29.5 pg Normal 27.0-32.[address] [facility] Comment on above: Order Comment: SPECI MEN NOT RAN DURING MORNING HOURS, FOUND IN OUTSTANDING. Performed By: #### L 100.0100, L500.4050 #### [facility] [address] [place], [address] MCHC (RBC) [Mass/Vol] 30.3 g/dL Low 32-36 [facility] Comment on above: Order Comment: SPECI MEN NOT RAN DURING MORNING HOURS, FOUND IN OUTSTANDING. Performed By: #### L 100.0100, L500.4050 #### [facility] [address] [place], [address] MCV (RBC) [Entitic vol] 97.4 fL Normal 81-[address] [facility] Comment on above: Order Comment: SPECI MEN NOT RAN DURING MORNING HOURS, FOUND IN OUTSTANDING. Performed By: #### L 100.0100, L500.4050 #### [facility] [address] [place], [address] Monocytes/100 WBC (Bld) 8.3 % Normal 0-[address] [facility] Comment on above: Order Comment: SPECI MEN NOT RAN DURING MORNING HOURS, FOUND IN OUTSTANDING. Performed By: #### L 100.0100, L500.4050 #### [facility] [address] [place], [address] Neutrophils/100 WBC (Bld) 66.0 % Normal 47-[address] [facility] Comment on above: Order Comment: SPECI MEN NOT RAN DURING MORNING HOURS, FOUND IN OUTSTANDING. Performed By: #### L 100.0100, L500.4050 #### [facility] [address] [place], [address] Nucleated RBC (Bld) [#/Vol] 0 10*3/uL Normal 0-[address] [facility] Comment on above: Order Comment: SPECI MEN NOT RAN DURING MORNING HOURS, FOUND IN OUTSTANDING. Performed By: #### L 100.0100, L500.4050 #### [facility] [address] [place], [address] Platelet mean volume (Bld) [Entitic vol] 10.0 fL Normal 6.2-12.[address] [facility] Comment on above: Order Comment: SPECI MEN NOT RAN DURING MORNING HOURS, FOUND IN OUTSTANDING. Performed By: #### L 100.0100, L500.4050 #### [facility] [address] [place], [address] Platelets (Bld) [#/Vol] 221 10*3/uL Normal 150-[address] [facility] Comment on above: Order Comment: SPECI MEN NOT RAN DURING MORNING HOURS, FOUND IN OUTSTANDING. Performed By: #### L 100.0100, L500.4050 #### [facility] [address] [place], [address] RBC (Bld) [#/Vol] 4.30 10*6/uL Normal 4.2-5.4 [facility] Comment on above: Order Comment: SPECI MEN NOT RAN DURING MORNING HOURS, FOUND IN OUTSTANDING. Performed By: #### L 100.0100, L500.4050 #### [facility] [address] [place], [address] RDW SD 47.3 fl High 35.1-43.[address] [facility] Comment on above: Order Comment: SPECI MEN NOT RAN DURING MORNING HOURS, FOUND IN OUTSTANDING. Performed By: #### L 100.0100, L500.4050 #### [facility] [address] [place], [address] WBC (Bld) [#/Vol] 5.2 10*3/uL Normal 4.4-11.0 [facility] Comment on above: Order Comment: SPECI MEN NOT RAN DURING MORNING HOURS, FOUND IN OUTSTANDING. Performed By: #### L 100.0100, L500.4050 #### [facility] [address] [place], [address] Comprehensive Metabolic Prof [facility] 12-20-2024 Albumin [Mass/Vol] 3.1 g/dL Low 3.4-4.8 [facility] Comment on above: Performed By: #### L 100.0100, L500.4050 #### [facility] [address] [place], [address] Albumin/Globulin [Mass ratio] 1.3 {ratio} Normal 0.9-2.[address] [facility] Comment on above: Performed By: #### L 100.0100, L500.4050 #### [facility] [address] [place], [address] ALK PHOS 42 U/L Normal 35-[address] [facility] Comment on above: Performed By: #### L 100.0100, L500.4050 #### [facility] [address] [place], [address] ALT [Catalytic activity/Vol] 22 U/L Normal <=[address] [facility] Comment on above: Performed By: #### L 100.0100, L500.4050 #### [facility] [address] [place], [address] AST [Catalytic activity/Vol] 22 U/L Normal <=[address] [facility] Comment on above: Result Comment: Hemo lysis present, Results??could be affected. ?? Performed By: #### L 100.0100, L500.4050 #### [facility] [address] [place], [address] Bilirubin [Mass/Vol] 0.19 mg/dL Normal 0.00-1.30 [facility] Comment on above: Performed By: #### L 100.0100, L500.4050 #### [facility] [address] [place], [address] BUN/CRE 21.6 RATIO High 10-[address] [facility] Comment on above: Performed By: #### L 100.0100, L500.4050 #### [facility] [address] [place], [address] Calcium [Mass/Vol] 8.0 mg/dL Normal 7.6-11.0 [facility] Comment on above: Performed By: #### L 100.0100, L500.4050 #### [facility] [address] [place], [address] Chloride [Moles/Vol] 115 mmol/L High 98-108 [facility] Comment on above: Performed By: #### L 100.0100, L500.4050 #### [facility] [address] [place], [address] CO2 [Moles/Vol] 20.0 mmol/L Low 21.0-32.[address] [facility] Comment on above: Performed By: #### L 100.0100, L500.4050 #### [facility] [address] [place], [address] Creatinine [Mass/Vol] 0.67 mg/dL Low 0.70-1.20 [facility] Comment on above: Performed By: #### L 100.0100, L500.4050 #### [facility] [address] [place], [address] ECRCL 80.22 ml/min Normal 50-[address] [facility] Comment on above: Performed By: #### L 100.0100, L500.4050 #### [facility] [address] [place], [address] GAP 10 Normal 5-[address] [facility] Comment on above: Performed By: #### L 100.0100, L500.4050 #### [facility] [address] [place], [address] GFR/1.73 sq M.predicted among non-blacks MDRD (S/P/Bld) [Vol rate/Area] 98 mL/min/{1.73_m2} Normal >[address] [facility] Comment on above: Result Comment: mL/m in/1.73m2 CKD-EPI Creatinine Equation (2020) Performed By: #### L 100.0100, L500.4050 #### [facility] [address] [place], [address] Globulin (S) [Mass/Vol] 2.3 g/dL Normal 2.2-4.[address] [facility] Comment on above: Performed By: #### L 100.0100, L500.4050 #### [facility] [address] [place], [address] Glucose [Mass/Vol] 112 mg/dL High 70-99 [facility] Comment on above: Performed By: #### L 100.0100, L500.4050 #### [facility] [address] [place], [address] Potassium [Moles/Vol] 3.6 mmol/L Normal 3.3-5.1 [facility] Comment on above: Result Comment: Hemo lysis present, Results??could be affected. ?? Performed By: #### L 100.0100, L500.4050 #### [facility] [address] [place], [address] Sodium [Moles/Vol] 145 mmol/L Normal 133-145 [facility] Comment on above: Performed By: #### L 100.0100, L500.4050 #### [facility] [address] [place], [address] T PROT 5.4 g/dL Low 5.9-8.[address] [facility] Comment on above: Performed By: #### L 100.0100, L500.4050 #### [facility] [address] [place], [address] Urea nitrogen [Mass/Vol] 14 mg/dL Normal 4-[address] [facility] Comment on above: Performed By: #### L 100.0100, L500.4050 #### [facility] [address] [place], [address] Echocardiogram study reportO rdered By: Slick Breaux on 12-20-2024 Study report [facility] [address] [place] [address] Echo Complete 12/20/24 0805 MR#: [id number] Acct: [id number] Name: SHAJI ESQUIVEL Rep #:[id number] : 1960 64 From: Slick Breaux MD Attending Dr: Dr. Antwan Covington MD Status: ADM IN Ordering Dr: Jayashree Florez DO Da te: 12/19/24 Location: ICU Sex: F C Admitted: 12/19/24 Reason For Study Reason For Study: TIA/CVA Procedure This was a 2D Doppler, Color Flow transthoracic echocardiogram. Exam performed portable in ICU/CCU. Left Ventricle Normal size and thickness. The LV ejection fraction is 65 %. Normal diastology for age. Right Ventricle Normal right ventricle. Atria The left and right atria are normal. Bubble contrast study is negative for PFO/ASD. Mitral Valve Mild focal mitral valve calcification of the anterior leaflet. Trivial mitral valve insufficiency. Tricuspid Valve Normal tricuspid valve. Aortic Valve Trisinus/trileaflet aortic valve. Pulmonic Valve The pulmonic valve is not well visualized. Great Vessels Normal sized aortic root. Pericardium/Pleural No pericardial effusion. Medication Performed a rapid injection of agitated mix of 9 cc saline and 1cc air to assessfor atrial septal defect. MMode/2D Measurements & Calculations LVIDd: 3.3 cm IVSd: 0.97 cm Ao root diam: 3.2 cm LVIDs: 1.7 cm LVPWd: 0.90 cm RVDd: 2.9 cm FS: 49.3 % LAV(MOD-bp): 25.5 ml LVAd ap4: 21.5 cm2 LVAd ap2: 20.7 cm2 LAV(MOD-bp) Indexed: 13.1 ml/m2 LVLd ap4: 7.1 cm LVLd ap2: 8.0 cm LAV(MOD-sp2): 25.8 ml EDV(MOD-sp4): 53.5 ml EDV(MOD-sp2): 43.6 ml LAV(MOD-sp4): 21.9 ml EDV(sp4-el): 55.4 ml EDV(sp2-el): 45.8 ml LVAs ap4: 11.3 cm2 LVAs ap2: 8.9 cm2 LVLs ap4: 6.2 cm LVLs ap2: 6.6 cm ESV(MOD-sp4): 17.8 ml ESV(MOD-sp2): 10.5 ml ESV(sp4-el): 17.6 ml ESV(sp2-el): 10.2 ml EF(MOD-sp4): 66.8 % EF(MOD-sp2): 75.8 % EF(sp4-el): 68.2 % SV(MOD-sp4): 35.7 ml SV(MOD-sp2): 33.1 ml SV(sp4-el): 37.8 ml SI(MOD-sp4): 18.3 ml/m2 SI(MOD-sp2): 17.0 ml/m2 LA A4 area: 9.7 cm2 LA dimension(2D): 3.1 cm RA A4 area: 9.1 cm2 Time Measurements MV dec time: 0.18 sec Doppler Measurements & Calculations MV E max emy: 79.1 cm/sec Lat Peak E' Emy: 10.7 cm/sec Med Peak E' Emy: 9.0 cm/sec MV A max emy: 71.6 cm/sec E/E' lat: 7.4 E/E' med: 8.8 MV E/A: 1.1 MV dec slope: 432.5 cm/sec2 Ao V2 max: 108.2 cm/sec LV V1 max: 81.8 cm/sec Ao max P.7 mmHg LV V1 max P.7 mmHg PA V2 max: 91.1 cm/sec ECHO/Echo Complete Interpretation Summary The LV ejection fraction is 65 %. Bubble contrast study is negative for PFO/ASD. Mild focal mitral valve calcification of the anterior leaflet. Ordering Physician: Jayashree Florez Performed By: Florencia Real RDCS 12/20/24 1324 Date _ Slick Breaux MD CC: Dr. Jayashree Florez DO; Dr. Antwan Covington MD; No Primary Care Physician ~ Date Dictated: 12/20/24 08 Date Transcribed: 12/20/24 132 Icing Mixer: Signed [facility] Work Phone: Electrocardiogram reportOrde red By: Sonu Heaton on 12-20-2024 EKG study [facility] Cardiovascular Services [address] [place] [address] 12 Lead EKG 12/18/248 MR#: [id number] Acct: [id number] Name: SHAJI ESQUIVEL Rep #:[id number] : 1960 64 From: Sonu Heaton MD Attending Dr: Dr. Antwan Covington MD Status: ADM IN Ordering Dr: Gamaliel Coats DO Date: 5 Location: ICU Sex: F C Admitted: 12/19/24 Test Reason : DYSRHYTHMIA Blood Pressure : */* mmHG Vent. Rate : 105 BPM Atrial Rate : 105 BPM P-R Int : 162 ms QRS Dur : 76 ms QT Int : 342 ms P-R-T Axes : 46 18 86 degrees QTcB Int : 452 ms Sinus tachycardia Possible Left atrial enlargement Cannot rule out Inferior infarct , age undetermined Abnormal ECG Confirmed by SAMI ARAUZ, SONU ([id number]), editor house organ AMY GARCIA ([id number]) on 12/20/2024 11:35:51 AM Referred By: Confirmed By: SONU HEATON MD 12/20/24 1135 Date _ Sonu Heaton MD CC: Dr. Antwan Covington MD; Dr. Gamaliel Coats DO; No Primary Care Physician ~ Signed [facility] Other Laboratory - Chemistry and C hemistry - challengeOrdered By: Ryanne Simons on 12-20-2024 AST [Catalytic activity/Vol] 22 U/L <[address] [facility] Comment on above: Hemolysis present, R esults could be affected. Magnetic resonance imaging r eportOrdered By: Alfredo Eaton on 12-20-2024 Study report [facility] Imaging Services [address] [place] [address] Brain without Contrast MR#: [id number] Acct: [id number] Name: SHAJI ESQUIVEL Rep #: [id number] : 1960 F 64 From: Sharmaine Eaton MD PCP: Care Physician,No Primary Status: ADM IN Study:Brain without Contrast Date of Exam: 12/18/24 Exam# [id number] Ordering Dr: Jayashree Schafer DO PROCEDURE: BRAIN WITHOUT CONTRAST 12/18/2024 REASON FOR EXAM: CVA RULE OUT TECHNIQUE: BRAIN WITHOUT CONTRAST Multiplanar and multisequence images were obtained. COMPARISON: None. FINDINGS: There is moderate diffuse cerebral atrophy with concomitant ventriculomegaly. There is patchy low-density of the periventricular and subcortical white matter in both cerebral hemispheres consistent with chronic ischemic white matter disease. There is a normal sulcal pattern and gyral configuration. There is no evidence of acute intracranial hemorrhage or infarction. The laugna-white differentiation is well preserved. There is no evidence of restricted diffusion. The basilar cisterns are normal. There are normal flow voids demonstrated in the recognized intracranialvessels. The cerebellum and brainstem are unremarkable. The cerebellar pontine angles arenormal. The craniovertebral junction is normal. The sella and suprasellar regions are normal. The orbits and retro-orbital regions are unremarkable. The nasal septum is deviated to the left the paranasal sinuses are clear. The mastoid air cells are clear. There is normal bone marrow signal in the skull base and calvarium. MRI/Brain without Contrast IMPRESSION: 1. No evidence of acute intracranial pathology. 2. Cerebral atrophy with chronic ischemic white matter disease. 3. Other findings as noted. Reading Location: [place] [address] CC: Dr. Jayashree Florez, DO; No Primary Care Physician ~ Icing Mixer: Signed [facility] Work Phone: Serum globulin measurementOr dered By: Ryanne Simons 12-20-2024 Globulin (S) [Mass/Vol] 2.3 g/dL 2.2-4.[address] [facility] Serum or plasma alanine colon otransferase (ALT) measurementOrdered By: Ryanne Simons 12-20-2024 ALT [Catalytic activity/Vol] 22 U/L <[address] [facility] Serum or plasma albumin ofelia urement (mass/volume)Ordered By: Ryanne Simons 12-20-2024 Albumin [Mass/Vol] 3.1 g/dL Low 3.4-4.8 [facility] Serum or plasma albumin/glob ulin mass ratioOrdered By: Ryanne Ronak 12-20-2024 Albumin/Globulin [Mass ratio] 1.3 {ratio} 0.9-2.[address] [facility] Serum or plasma alkaline aria sphatase measurementOrdered By: Ryanne Simons on 12-20-2024 ALP [Catalytic activity/Vol] 42 U/L 35-[address] [facility] Total proteinOrdered By: Caleb Simons on 12-20-2024 Protein [Mass/Vol] 5.4 g/dL Low 5.9-8.4 [facility] Basic Metabolic Profile (BMP )on 12-19-2024 Calcium [Mass/Vol] 6.6 mg/dL Low 7.6-11.0 [facility] Comment on above: Order Comment: SHAUN Black PREVIOUS SPECIMEN REJECTED DUE TO HEMOLYSIS. 12/19/24 1624 Result Comment: Crit ical Result(s) Called HSMUCKER at: 1749 by: Homeloc??Results read back by same. AMENDED REPORT 12/19/241751 CA previously reported as: 6.5 *L mg/dL Critical Result(s) Called HSMUCKER at: 1749 by: Homeloc??Results read back by same. Performed By: #### L 500.2500 #### [facility] [address] [place], [address] BUN Normal 4-[address] [facility] Comment on above: Order Comment: Comme nts: May add to ED labs Comments: may add to ED labs Result Comment: NO S PECIMEN COLLECTED Performed By: #### L 501.2300, L501.5200 #### [facility] [address] [place], [address] Order Comment: Call MD with results STAT Result Comment: This specimen has been REJECTED due to Laboratory criteria: Hemolyzed. ICU HSMUCKER has been notified of need of recollection. 12/19/24 1623 Performed By: #### L 501.6901 #### [facility] [address] [place], [address] BUN/CRE Normal 10-[address] [facility] Comment on above: Order Comment: Comme nts: May add to ED labs Comments: may add to ED labs Result Comment: NO S PECIMEN COLLECTED Performed By: #### L 501.2300, L501.5200 #### [facility] [address] [place], [address] Order Comment: Call MD with results STAT Result Comment: This specimen has been REJECTED due to Laboratory criteria: Hemolyzed. ICU HSMUCKER has been notified of need of recollection. 12/19/24 1623 Performed By: #### L 501.6901 #### [facility] [address] [place], [address] Calcium Normal 7.6-11.[address] [facility] Comment on above: Order Comment: Comme nts: May add to ED labs Comments: may add to ED labs Result Comment: NO S PECIMEN COLLECTED Performed By: #### L 501.2300, L501.5200 #### [facility] [address] [place], [address] Order Comment: Call MD with results STAT Result Comment: This specimen has been REJECTED due to Laboratory criteria: Hemolyzed. ICU HSMUCKER has been notified of need of recollection. 12/19/24 1623 Performed By: #### L 501.6901 #### [facility] [address] [place], [address] CL Normal 98-[address] [facility] Comment on above: Order Comment: Comme nts: May add to ED labs Comments: may add to ED labs Result Comment: NO S PECIMEN COLLECTED Performed By: #### L 501.2300, L501.5200 #### [facility] [address] [place], [address] Order Comment: Call MD with results STAT Result Comment: This specimen has been REJECTED due to Laboratory criteria: Hemolyzed. ICU HSMUCKER has been notified of need of recollection. 12/19/24 1623 Performed By: #### L 501.6901 #### [facility] [address] [place], [address] CO2 Normal 21.0-32.[address] [facility] Comment on above: Order Comment: Comme nts: May add to ED labs Comments: may add to ED labs Result Comment: NO S PECIMEN COLLECTED Performed By: #### L 501.2300, L501.5200 #### [facility] [address] [place], [address] Order Comment: Call MD with results STAT Result Comment: This specimen has been REJECTED due to Laboratory criteria: Hemolyzed. ICU HSMUCKER has been notified of need of recollection. 12/19/24 1623 Performed By: #### L 501.6901 #### [facility] [address] [place], [address] CREAT,SERUM Normal 0.70-1.[address] [facility] Comment on above: Order Comment: Comme nts: May add to ED labs Comments: may add to ED labs Result Comment: NO S PECIMEN COLLECTED Performed By: #### L 501.2300, L501.5200 #### [facility] [address] [place], [address] Order Comment: Call MD with results STAT Result Comment: This specimen has been REJECTED due to Laboratory criteria: Hemolyzed. ICU HSMUCKER has been notified of need of recollection. 12/19/24 1623 Performed By: #### L 501.6901 #### [facility] [address] [place], [address] eGFR Normal >[address] [facility] Comment on above: Order Comment: Comme nts: May add to ED labs Comments: may add to ED labs Result Comment: NO S PECIMEN COLLECTED Performed By: #### L 501.2300, L501.5200 #### [facility] [address] [place], [address] Order Comment: Call MD with results STAT Result Comment: This specimen has been REJECTED due to Laboratory criteria: Hemolyzed. ICU HSMUCKER has been notified of need of recollection. 12/19/24 1623 Performed By: #### L 501.6901 #### [facility] [address] [place], [address] GAP Normal 5-[address] [facility] Comment on above: Order Comment: Comme nts: May add to ED labs Comments: may add to ED labs Result Comment: NO S PECIMEN COLLECTED Performed By: #### L 501.2300, L501.5200 #### [facility] [address] [place], [address] Order Comment: Call MD with results STAT Result Comment: This specimen has been REJECTED due to Laboratory criteria: Hemolyzed. ICU HSMUCKER has been notified of need of recollection. 12/19/24 1623 Performed By: #### L 501.6901 #### [facility] [address] [place], [address] GLU Normal 70-[address] [facility] Comment on above: Order Comment: Comme nts: May add to ED labs Comments: may add to ED labs Result Comment: NO S PECIMEN COLLECTED Performed By: #### L 501.2300, L501.5200 #### [facility] [address] [place], [address] Order Comment: Call MD with results STAT Result Comment: This specimen has been REJECTED due to Laboratory criteria: Hemolyzed. ICU HSMUCKER has been notified of need of recollection. 12/19/24 1623 Performed By: #### L 501.6901 #### [facility] [address] [place], [address] Potassium Normal 3.3-5.[address] [facility] Comment on above: Order Comment: Comme nts: May add to ED labs Comments: may add to ED labs Result Comment: NO S PECIMEN COLLECTED Performed By: #### L 501.2300, L501.5200 #### [facility] [address] [place], [address] Order Comment: Call MD with results STAT Result Comment: This specimen has been REJECTED due to Laboratory criteria: Hemolyzed. ICU HSMUCKER has been notified of need of recollection. 12/19/24 1623 Performed By: #### L 501.6901 #### [facility] [address] [place], [address] Basic Metabolic Profile (BMP) Normal 133-[address] [facility] Comment on above: Order Comment: Comme nts: May add to ED labs Comments: may add to ED labs Result Comment: NO S PECIMEN COLLECTED Performed By: #### L 501.2300, L501.5200 #### [facility] [address] [place], [address] Order Comment: Call MD with results STAT Result Comment: This specimen has been REJECTED due to Laboratory criteria: Hemolyzed. ICU HSMUCKER has been notified of need of recollection. 12/19/24 1623 Performed By: #### L 501.6901 #### [facility] [address] [place], [address] BUN/CRE 30.0 RATIO High 10-[address] [facility] Comment on above: Order Comment: Call MD with results STAT Performed By: #### L 501.6901 #### [facility] [address] [place], [address] Calcium [Mass/Vol] 7.3 mg/dL Low 7.6-11.0 [facility] Comment on above: Order Comment: Call MD with results STAT Performed By: #### L 501.6901 #### [facility] [address] [place], [address] Chloride [Moles/Vol] 110 mmol/L High 98-108 [facility] Comment on above: Order Comment: Call MD with results STAT Performed By: #### L 501.6901 #### [facility] [address] [place], [address] CO2 [Moles/Vol] 20.7 mmol/L Low 21.0-32.[address] [facility] Comment on above: Order Comment: Call MD with results STAT Performed By: #### L 501.6901 #### [facility] [address] [place], [address] Creatinine [Mass/Vol] 0.87 mg/dL Normal 0.70-1.20 [facility] Comment on above: Order Comment: Call MD with results STAT Performed By: #### L 501.6901 #### [facility] [address] [place], [address] ECRCL 70.27 ml/min Normal 50-[address] [facility] Comment on above: Order Comment: Call MD with results STAT Performed By: #### L 501.6901 #### [facility] [address] [place], [address] GAP 8 Normal 5-[address] [facility] Comment on above: Order Comment: Call MD with results STAT Performed By: #### L 501.6901 #### [facility] [address] [place], [address] GFR/1.73 sq M.predicted among non-blacks MDRD (S/P/Bld) [Vol rate/Area] 74 mL/min/{1.73_m2} Normal >[address] [facility] Comment on above: Order Comment: Call MD with results STAT Result Comment: mL/m in/1.73m2 CKD-EPI Creatinine Equation (2020) Performed By: #### L 501.6901 #### [facility] [address] [place], [address] Glucose [Mass/Vol] 106 mg/dL High 70-99 [facility] Comment on above: Order Comment: Call MD with results STAT Performed By: #### L 501.6901 #### [facility] [address] [place], [address] Potassium [Moles/Vol] 6.8 mmol/L Invalid Interpretation Code 3.3-5.[address] [facility] Comment on above: Order Comment: Call MD with results STAT Result Comment: Hemo lysis present, Results??could be affected. ?? Critical Result(s) Called to:Denis ONTIVEROS (ICU) by: Anthony??Results read back by same. Performed By: #### L 501.6901 #### [facility] [address] [place], [address] Sodium [Moles/Vol] 139 mmol/L Normal 133-145 [facility] Comment on above: Order Comment: Call MD with results STAT Performed By: #### L 501.6901 #### [facility] [address] [place], [address] Urea nitrogen [Mass/Vol] 26 mg/dL High 4-[address] [facility] Comment on above: Order Comment: Call MD with results STAT Performed By: #### L 501.6901 #### [facility] [address] [place], [address] BUN/CRE 33.0 RATIO High 10-[address] [facility] Comment on above: Order Comment: Call MD with results STAT Performed By: #### L 100.0100, L500.4050 #### [facility] [address] [place], [address] Calcium [Mass/Vol] 9.1 mg/dL Normal 7.6-11.0 [facility] Comment on above: Order Comment: Call MD with results STAT Performed By: #### L 100.0100, L500.4050 #### [facility] [address] [place], [address] Chloride [Moles/Vol] 106 mmol/L Normal 98-108 [facility] Comment on above: Order Comment: Call MD with results STAT Performed By: #### L 100.0100, L500.4050 #### [facility] [address] [place], [address] CO2 [Moles/Vol] 21.2 mmol/L Normal 21.0-32.[address] [facility] Comment on above: Order Comment: Call MD with results STAT Performed By: #### L 100.0100, L500.4050 #### [facility] [address] [place], [address] Creatinine [Mass/Vol] 1.03 mg/dL Normal 0.70-1.20 [facility] Comment on above: Order Comment: Call MD with results STAT Performed By: #### L 100.0100, L500.4050 #### [facility] [address] [place], [address] ECRCL 59.36 ml/min Normal 50-[address] [facility] Comment on above: Order Comment: Call MD with results STAT Performed By: #### L 100.0100, L500.4050 #### [facility] [address] [place], [address] GAP 17 High 5-[address] [facility] Comment on above: Order Comment: Call MD with results STAT Performed By: #### L 100.0100, L500.4050 #### [facility] [address] [place], [address] GFR/1.73 sq M.predicted among non-blacks MDRD (S/P/Bld) [Vol rate/Area] 61 mL/min/{1.73_m2} Normal >[address] [facility] Comment on above: Order Comment: Call MD with results STAT Result Comment: mL/m in/1.73m2 CKD-EPI Creatinine Equation (2020) Performed By: #### L 100.0100, L500.4050 #### [facility] [address] [place], [address] Glucose [Mass/Vol] 149 mg/dL High 70-99 [facility] Comment on above: Order Comment: Call MD with results STAT Performed By: #### L 100.0100, L500.4050 #### [facility] [address] [place], [address] Potassium [Moles/Vol] 3.3 mmol/L Normal 3.3-5.1 [facility] Comment on above: Order Comment: Call MD with results STAT Performed By: #### L 100.0100, L500.4050 #### [facility] [address] [place], [address] Sodium [Moles/Vol] 144 mmol/L Normal 133-145 [facility] Comment on above: Order Comment: Call MD with results STAT Performed By: #### L 100.0100, L500.4050 #### [facility] [address] [place], [address] Urea nitrogen [Mass/Vol] 34 mg/dL High 4-[address] [facility] Comment on above: Order Comment: Call MD with results STAT Performed By: #### L 100.0100, L500.4050 #### [facility] [address] [place], [address] BUN/CRE 38.1 RATIO High 10-[address] [facility] Comment on above: Order Comment: Comme nts: NPO at [place] prior to lipid panel Performed By: #### L 500.2500, L100.0500, L500.4100 ####[facility] [address] [place], [address] Calcium [Mass/Vol] 8.9 mg/dL Normal 7.6-11.0 [facility] Comment on above: Order Comment: Comme nts: NPO at [place] prior to lipid panel Performed By: #### L 500.2500, L100.0500, L500.4100 ####[facility] [address] [place], [address] Chloride [Moles/Vol] 104 mmol/L Normal 98-108 [facility] Comment on above: Order Comment: Comme nts: NPO at [place] prior to lipid panel Performed By: #### L 500.2500, L100.0500, L500.4100 ####[facility] [address] [place], [address] CO2 [Moles/Vol] 16.1 mmol/L Low 21.0-32.[address] [facility] Comment on above: Order Comment: Comme nts: NPO at [place] prior to lipid panel Performed By: #### L 500.2500, L100.0500, L500.4100 ####[facility] [address] [place], [address] Creatinine [Mass/Vol] 0.94 mg/dL Normal 0.70-1.20 [facility] Comment on above: Order Comment: Comme nts: NPO at [place] prior to lipid panel Performed By: #### L 500.2500, L100.0500, L500.4100 ####[facility] [address] [place], [address] ECRCL 65.04 ml/min Normal 50-[address] [facility] Comment on above: Order Comment: Comme nts: NPO at [place] prior to lipid panel Performed By: #### L 500.2500, L100.0500, L500.4100 ####[facility] [address] [place], [address] GAP 23 High 5-[address] [facility] Comment on above: Order Comment: Comme nts: NPO at [place] prior to lipid panel Performed By: #### L 500.2500, L100.0500, L500.4100 ####[facility] [address] [place], [address] GFR/1.73 sq M.predicted among non-blacks MDRD (S/P/Bld) [Vol rate/Area] 67 mL/min/{1.73_m2} Normal >[address] [facility] Comment on above: Order Comment: Comme nts: NPO at [place] prior to lipid panel Result Comment: mL/m in/1.73m2 CKD-EPI Creatinine Equation (2020) Performed By: #### L 500.2500, L100.0500, L500.4100 ####[facility] [address] [place], [address] Glucose [Mass/Vol] 220 mg/dL High 70-99 [facility] Comment on above: Order Comment: Comme nts: NPO at [place] prior to lipid panel Performed By: #### L 500.2500, L100.0500, L500.4100 ####[facility] [address] [place], [address] Potassium [Moles/Vol] 4.4 mmol/L Normal 3.3-5.1 [facility] Comment on above: Order Comment: Comme nts: NPO at [place] prior to lipid panel Performed By: #### L 500.2500, L100.0500, L500.4100 ####[facility] [address] [place], [address] Sodium [Moles/Vol] 143 mmol/L Normal 133-145 [facility] Comment on above: Order Comment: Comme nts: NPO at [place] prior to lipid panel Performed By: #### L 500.2500, L100.0500, L500.4100 ####[facility] [address] [place], [address] Urea nitrogen [Mass/Vol] 36 mg/dL High 4-[address] [facility] Comment on above: Order Comment: Comme nts: NPO at [place] prior to lipid panel Performed By: #### L 500.2500, L100.0500, L500.4100 ####[facility] [address] [place], [address] Bedside Glucoseon 12-19-2024 FINGERSTICK GLU 130 mg/dL High 74-[address] [facility] Comment on above: Result Comment: VONNIE LAURENT OF PATIENT CARE PER NURSING PROTOCOL Performed By: #### L 100.0100, L500.4050 #### [facility] [address] [place], [address] FINGERSTICK GLU 122 mg/dL High 74-[address] [facility] Comment on above: Result Comment: VONNIE GEMENT OF PATIENT CARE PER NURSING PROTOCOL Performed By: #### L 501.6901 #### [facility] [address] [place], [address] FINGERSTICK GLU 93 mg/dL Normal 74-[address] [facility] Comment on above: Result Comment: VONNIE GEMENT OF PATIENT CARE PER NURSING PROTOCOL Performed By: #### L 501.2300, L501.5200 #### [facility] [address] [place], [address] FINGERSTICK GLU 91 mg/dL Normal 74-[address] [facility] Comment on above: Result Comment: VONNIE GEMENT OF PATIENT CARE PER NURSING PROTOCOL Performed By: #### L 501.080 #### [facility] [address] [place], [address] FINGERSTICK GLU 93 mg/dL Normal 74-[address] [facility] Comment on above: Result Comment: VONNIE GEMENT OF PATIENT CARE PER NURSING PROTOCOL Performed By: #### L 501.2300, L501.5200 #### [facility] [address] [place], [address] FINGERSTICK GLU 64 mg/dL Low 74-[address] [facility] Comment on above: Result Comment: VONNEI GEMENT OF PATIENT CARE PER NURSING PROTOCOL Performed By: #### L 501.2300, L501.5200 #### [facility] [address] [place], [address] FINGERSTICK GLU 80 mg/dL Normal 74-[address] [facility] Comment on above: Result Comment: VONNIE GEMENT OF PATIENT CARE PER NURSING PROTOCOL Performed By: #### L 501.6901 #### [facility] [address] [place], [address] FINGERSTICK GLU 106 mg/dL Normal 74-[address] [facility] Comment on above: Result Comment: VONNIE GEMENT OF PATIENT CARE PER NURSING PROTOCOL Performed By: #### L 100.0100, L500.4050 #### [facility] [address] [place], [address] FINGERSTICK GLU 143 mg/dL High 74-[address] [facility] Comment on above: Result Comment: VONNIE GEMENT OF PATIENT CARE PER NURSING PROTOCOL Performed By: #### L 501.080 ####[facility] [address] [place], [address] FINGERSTICK GLU 200 mg/dL High 74-[address] [facility] Comment on above: Result Comment: VONNIE GEMENT OF PATIENT CARE PER NURSING PROTOCOL Performed By: #### L 501.080 #### [facility] [address] [place], [address] FINGERSTICK GLU 184 mg/dL High 74-[address] [facility] Comment on above: Result Comment: VONNIE GEMENT OF PATIENT CARE PER NURSING PROTOCOL Performed By: #### L 501.080 ####[facility] [facility] [address] [place], [address] Beta-Hydroxbytyrateon 2024 BETA-HYDROXYBUT 4.6 mmol/L High 0.0-0.[address] [facility] Comment on above: Performed By: #### L 501.6901 #### [facility] [address] [place], [address] Beta-hydroxybutyrateOrdered By: Jayashree Floerz on 12-19-2024 Beta hydroxybutyrate [Mass/Vol] 4.6 mmol/L High 0.0-0.[address] [facility] CBC-Complete Blood Cnt No Di ffon 12-19-2024 Erythrocyte distribution width (RBC) [Ratio] 12.9 % Normal 11.6-14.[address] [facility] Comment on above: Performed By: #### L 500.2500, L100.0500, L500.4100 ####[facility] [address] [place], [address] Hematocrit (Bld) [Volume fraction] 46.4 % Normal 37-[address] [facility] Comment on above: Performed By: #### L 500.2500, L100.0500, L500.4100 ####[facility] [address] [place], [address] Hemoglobin (Bld) [Mass/Vol] 14.4 g/dL Normal 12.0-15.[address] [facility] Comment on above: Performed By: #### L 500.2500, L100.0500, L500.4100 ####[facility] [address] [place], [address] MCH (RBC) [Entitic mass] 29.8 pg Normal 27.0-32.[address] [facility] Comment on above: Performed By: #### L 500.2500, L100.0500, L500.4100 ####[facility] [address] [place], [address] MCHC (RBC) [Mass/Vol] 31.0 g/dL Low 32-36 [facility] Comment on above: Performed By: #### L 500.2500, L100.0500, L500.4100 ####[facility] [address] [place], [address] MCV (RBC) [Entitic vol] 95.9 fL Normal 81-[address] [facility] Comment on above: Performed By: #### L 500.2500, L100.0500, L500.4100 ####[facility] [address] [place], [address] Platelet mean volume (Bld) [Entitic vol] 9.2 fL Normal 6.2-12.[address] [facility] Comment on above: Performed By: #### L 500.2500, L100.0500, L500.4100 ####[facility] [address] [place], [address] Platelets (Bld) [#/Vol] 273 10*3/uL Normal 150-[address] [facility] Comment on above: Performed By: #### L 500.2500, L100.0500, L500.4100 ####[facility] [address] [place], [address] RBC (Bld) [#/Vol] 4.84 10*6/uL Normal 4.2-5.4 [facility] Comment on above: Performed By: #### L 500.2500, L100.0500, L500.4100 ####[facility] [address] [place], [address] RDW SD 45.1 fl High 35.1-43.[address] [facility] Comment on above: Performed By: #### L 500.2500, L100.0500, L500.4100 ####[facility] [address] [place], [address] WBC (Bld) [#/Vol] 12.8 10*3/uL High 4.4-11.0 [facility] Comment on above: Performed By: #### L 500.2500, L100.0500, L500.4100 ####[facility] [address] [place], [address] Calculated very low density lipoprotein (VLDL) cholesterol measurementOrdered By: Jayashree Florez on 12-19-2024 Calculated very low density lipoprotein (VLDL) cholesterol measurement 12 mg/dL 5-[address] [facility] Echo Completeon 12-19-[address] [facility] [address] [place] [address] Echo Complete 12/20/24 0805 MR#: [id number] Acct: [id number] Name: SHAJI ESQUIVEL #: [id number] : 1960 64 From: Slick [place]aux MD Attending Dr: Dr. Antwan Covington MD Status: ADM IN Ordering Dr: Jayashree Florez DO Date: 12/19/24 Location: ICU Sex: F C Admitted: 12/19/24 Reason For Study Reason For Study: TIA/CVA Procedure This was a 2D Doppler, Color Flow transthoracic echocardiogram. Exam performed portable in ICU/CCU. Left Ventricle Normal size and thickness. The LV ejection fraction is 65 %. Normal diastology for age. Right Ventricle Normal right ventricle. Atria The left and right atria are normal. Bubble contrast study is negative for PFO/ASD. Mitral Valve Mild focal mitral valve calcification of the anterior leaflet. Trivial mitral valve insufficiency. Tricuspid Valve Normal tricuspid valve. Aortic Valve Trisinus/trileaflet aortic valve. Pulmonic Valve The pulmonic valve is not well visualized. Great Vessels Normal sized aortic root. Pericardium/Pleural No pericardial effusion. Medication Performed a rapid injection of agitated mix of 9 cc saline and 1cc air to assess for atrial septal defect. MMode/2D Measurements Calculations LVIDd: 3.3 cm IVSd: 0.97 cm Ao root diam: 3.2 cm LVIDs: 1.7 cm LVPWd: 0.90 cm RVDd: 2.9 cm FS: 49.3 % LAV(MOD-bp): 25.5 ml LVAd ap4: 21.5 cm2 LVAd ap2: 20.7 cm2 LAV(MOD-bp) Indexed: 13.1 ml/m2 LVLd ap4: 7.1 cm LVLd ap2: 8.0 cm LAV(MOD-sp2): 25.8 ml EDV(MOD-sp4): 53.5 ml EDV(MOD-sp2): 43.6 ml LAV(MOD-sp4): 21.9 ml EDV(sp4-el): 55.4 ml EDV(sp2-el): 45.8 ml LVAs ap4: 11.3 cm2 LVAs ap2: 8.9 cm2 LVLs ap4: 6.2 cm LVLs ap2: 6.6 cm ESV(MOD-sp4): 17.8 ml ESV(MOD-sp2): 10.5 ml ESV(sp4-el): 17.6 ml ESV(sp2-el): 10.2 ml EF(MOD-sp4): 66.8 % EF(MOD-sp2): 75.8 % EF(sp4-el): 68.2 % SV(MOD-sp4): 35.7 ml SV(MOD-sp2): 33.1 ml SV(sp4-el): 37.8 ml SI(MOD-sp4): 18.3 ml/m2 SI(MOD-sp2): 17.0 ml/m2 LA A4 area: 9.7 cm2 LA dimension(2D): 3.1 cm RA A4 area: 9.1 cm2 Time Measurements MV dec time: 0.18 sec Doppler Measurements Calculations MV E max emy: 79.1 cm/sec Lat Peak E' Emy: 10.7 cm/sec Med Peak E' Emy: 9.0 cm/sec MV A max emy: 71.6 cm/sec E/E' lat: 7.4 E/E' med: 8.8 MV E/A: 1.1 MV dec slope: 432.5 cm/sec2 Ao V2 max: 108.2 cm/sec LV V1 max: 81.8 cm/sec Ao max P.7 mmHg LV V1 max P.7 mmHg PA V2 max: 91.1 cm/sec ECHO/Echo Complete Interpretation Summary The LV ejection fraction is 65 %. Bubble contrast study is negative for PFO/ASD. Mild focal mitral valve calcification of the anterior leaflet. Ordering Physician: Jayashree Florez Performed By: Florencia Real RDCS 12/20/24 1324 Date Slick Breaux MD CC: Dr. Jayashree Florez DO; Dr. Antwan Covington MD; No Primary Care Physician Date Dictated: 12/20/24 08 Date Transcribed: 12/20/24 1324 Icing Mixer: Signed Normal [facility] L499.0042on 12-19-2024 Trop T High Sen 11 ng/L Normal <=[address] [facility] Comment on above: Performed By: #### L 501.6901 #### [facility] [address] [place], [address] L499.0043on 12-19-2024 Trop T High Sen 11 ng/L Normal <=[address] [facility] Comment on above: Performed By: #### L 501.6901 #### [facility] [address] [place], [address] L509.7001on 12-19-2024 Procalcitonin 0.49 ng/mL High <=0.[address] [facility] Comment on above: Result Comment: Inte rpretation: <0.10-0.25 ng/mL: Antibiotic therapy discouraged. Bacterial infection unlikely. 0.25-0.50 ng/mL: Antibiotic therapy encouraged. Bacterial infection possible. >0.50 ng/mL: Antibiotic therapy strongly encouraged. Suggestive of presence of bacterial infection. PCT should always be interpreted in the clinical context of the patient. Therefore, clinicians should use the PCT results in conjunction with other laboratory findings and clinical signs of the patient. Performed By: #### L 509.7001 ####[facility] [address] [place], [address] LDL calc ser/plasOrdered By: Jayashree Florez on 12-19-2024 Cholesterol in LDL [Mass/Vol] 38 mg/dL [facility] Comment on above: Azoppdlegx=155-566 m g/dL & Higher Fcjw=079 mg/dL or greater Lipid Profileon 12-19-2024 CHOL:HDL 2.[address] [facility] Comment on above: Order Comment: Comme nts: NPO at [place] prior to lipid panel Performed By: #### L 500.2500, L100.0500, L500.4100 ####[facility] [address] [place], [address] Cholesterol [Mass/Vol] 89 mg/dL Normal <=200 [facility] Comment on above: Order Comment: Comme nts: NPO at MO prior to lipid panel Result Comment: Chol esterol level, Desirable <200 mg/dL Borderline high cholesterol 200-239 mg/dL High cholesterol >=240 mg/dL Recommendations of the NCEP Adult Treatment Panel for the following risk-cutoff thresholds for the [place] population. Performed By: #### L 500.2500, L100.0500, L500.4100 ####[facility] [address] [place], [address] Cholesterol in HDL [Mass/Vol] 38 mg/dL Low [facility] Comment on above: Order Comment: Comme nts: NPO at [place] prior to lipid panel Result Comment: Lizzie onal Cholesterol Education Program (NCEP) guidelines: <40 mg/dL: Low HDL-cholesterol (major risk factor for CHD) >= 60 mg/dL: High HDL-cholesterol (negative risk factor for CHD) HDL-cholesterol is affected by a number of factors, e.g. smoking, exercise, hormones, sex and age. Performed By: #### L 500.2500, L100.0500, L500.4100 ####[facility] [address] [place], [address] Cholesterol in LDL [Mass/Vol] 38 mg/dL Normal [facility] Comment on above: Order Comment: Comme nts: NPO at MO prior to lipid panel Result Comment: Bord xsoxfx=313-676 mg/dL Higher Ifyh=885 mg/dL or greater Performed By: #### L 500.2500, L100.0500, L500.4100 ####[facility] [address] [place], [address] Cholesterol in VLDL [Mass/Vol] 12 mg/dL Normal 5-[address] [facility] Comment on above: Order Comment: Comme nts: NPO at MO prior to lipid panel Performed By: #### L 500.2500, L100.0500, L500.4100 ####[facility] [address] [place], [address] Triglyceride [Mass/Vol] 61 mg/dL Normal [facility] Comment on above: Order Comment: Comme nts: NPO at [place] prior to lipid panel Result Comment: The drugs N-Acetylcysteine and Metamizole may falsely depress this assay. Normal range: <150 mg/dL Borderline High: 150-199 mg/dL High: 200-499 mg/dL Very High: >500 mg/dL Performed By: #### L 500.2500, L100.0500, L500.4100 ####[facility] [address] [place], [address] Magnesiumon 12-19-2024 Magnesium [Mass/Vol] 1.9 mg/dL Normal 1.5-2.2 [facility] Comment on above: Order Comment: Commtiffany nts: May add to ED labs Comments: may add to ED labs Performed By: #### L 501.2300, L501.5200 #### [facility] [address] [place], [address] Phosphoruson 12-19-2024 Phosphate [Mass/Vol] 4.7 mg/dL High 2.7-4.5 [facility] Comment on above: Order Comment: Mariangel nts: May add to ED labs Comments: may add to ED labs Performed By: #### L 501.2300, L501.5200 #### [facility] [address] [place], [address] Procalcitonin [Mass/volume] in Serum or Plasma by ImmunoassayOrdered By: Ryanne Simons on 12-19-2024 Procalcitonin IA [Mass/Vol] 0.49 ng/mL High <0.[address] [facility] Comment on above: Interpretation:<0.10 -0.25 ng/mL: Antibiotic therapy discouraged. Bacterial infection unlikely.0.25-0.50 ng/mL: Antibiotic therapy encouraged. Bacterial infection possible.>0.50 ng/mL: Antibiotic therapy strongly encouraged. Suggestive of presence of bacterial infection.PCT should always be interpreted in the clinical context of the patient. Therefore, clinicians should use the PCT results in conjunction with other laboratory findings and clinical signs of the patient. RESPIRATORY PANEL MOLECULARo n 12-19-2024 RP PANEL ADENOVIRUS Not Detected INFLUENZA A Not Detected INFLUENZA A (SUBTYPE H1) Not Detected INFLUENZA A (SUBTYPE H3) Not Detected INFLUENZA B Not Detected HUMAN METAPHNEUMO Not Detected PARAINFLUENZA 1 Not Detected PARAINFLUENZA 2 Not Detected PARAINFLUENZA 3 Not Detected PARAINFLUENZA 4 Not Detected RHINOVIRUS Not Detected RSV A Not Detected RSV B Not Detected Normal [facility] Comment on above: Performed By: #### M 100.638 ####[facility] [address] [place], [address] Respiratory pathogens detect ion panel by molecular detection methodOrdered By: Jayashree Florez on 12-19-2024 Respiratory pathogens DNA and RNA panel PETE+probe (Resp) [facility] Screening total cholesterol/ high density lipoprotein (HDL) cholesterol ratioOrdered By: Jayashree Florez on 12-19-2024 Cholesterol.total/Chol esterol in HDL [Mass ratio] 2.33 {ratio} [facility] Serum or plasma cholesterol in HDL measurement (mass/volume)Ordered By: Jayashree Florez on 12-19-2024 Cholesterol in HDL [Mass/Vol] 38 mg/dL Low >[address] [facility] Comment on above: National Cholesterol Education Program (NCEP) guidelines:<40 mg/dL: Low HDL-cholesterol (major risk factor for CHD)>= 60 mg/dL: High HDL-cholesterol (negative risk factor for CHD)HDL-cholesterol is affected by a number of factors, e.g. smoking, exercise, hormones, sex and age. Serum or plasma cholesterol measurement (mass/volume)Ordered By: Jayashree Florez on 12-19-2024 Cholesterol [Mass/Vol] 89 mg/dL <201 [facility] Comment on above: Cholesterol level, D esirable <200 mg/dLBorderline high cholesterol 200-239 mg/dLHigh cholesterol >=240 mg/dLRecommendations of the NCEP Adult Treatment Panel for the following risk-cutoff thresholds for the [place] population. Triglycerides measurementOrd ered By: Jayashree Florez on 12-19-2024 Triglyceride [Mass/Vol] 61 mg/dL <[address] [facility] Comment on above: The drugs N-Acetylcy steine and Metamizole may falsely depress this assay. Normal range: <150 mg/dLBorderline High: 150-199 mg/dLHigh: 200-499 mg/dLVery High: >500 mg/dL Troponin T.cardiac [Mass/vol ume] in Serum or Plasma by High sensitivity methodOrdered By: Gamaliel Coats on 12-19-2024 Troponin T.cardiac High sensitivity method [Mass/Vol] 11 ng/L <[address] [facility] 12 Lead EKGon 12-18-2024 12 Lead EKG [facility] Cardiovascular Services [address] [place] [address] 12 Lead EKG 12/18/24 2138 MR#: [id number] Acct: [id number] Name: SHAJI ESQUIVEL Rep #: [id number] : 1960 64 From: Sonu Heaton MD Attending Dr: Dr. Antwan Covington MD Status: ADM IN Ordering Dr: Gamaliel Coats DO Date: 12/18/24 Location: ICU Sex: F C Admitted: 12/19/24 Test Reason : DYSRHYTHMIA Blood Pressure : */* mmHG Vent. Rate : 105 BPM Atrial Rate : 105 BPM P-R Int : 162 ms QRS Dur : 76 ms QT Int : 342 ms P-R-T Axes : 46 18 86 degrees QTcB Int : 452 ms Sinus tachycardia Possible Left atrial enlargement Cannot rule out Inferior infarct , age undetermined Abnormal ECG Confirmed by SONU HEATON MD ([id number]), editor house organ AMY GARCIA ([id number]) on 12/20/2024 11:35:51 AM Referred By: Confirmed By: SONU HEATON MD 12/20/24 1135 Date Sonu Heaton MD CC: Dr. Antwan Covington MD; Dr. Gamaliel Coats DO; No Primary Care Physician Signed Normal [facility] Absolute lymphocyte countOrd ered By: Gamaliel Coats on 12-18-2024 Lymphocytes Auto (Unsp spec) [#/Vol] 0.18 10*3/uL Low 0.83-4.[address] [facility] Absolute neutrophil countOrd ered By: Gamaliel Coats on 12-18-2024 Neutrophils (Bld) [#/Vol] 12.5 10*3/uL High 2.0-7.[address] [facility] Activated partial thrombopla stin time (aPTT) in platelet poor plasma by coagulation aOrdered By: Gamaliel Coats on 12-18-2024 aPTT Coag (PPP) [Time] 22.4 s Low 24.1-36.2 [facility] Anion gap in Serum or Plasma Ordered By: Gamaliel Coats on 12-18-2024 Anion gap [Moles/Vol] 21 mmol/L High 5-15 [facility] Automated blood erythrocyte countOrdered By: Gamaliel Coats on 12-18-2024 RBC (Bld) [#/Vol] 5.38 10*6/uL Normal 4.2-5.4 [facility] Comment on above: Performed By: #### L 501.2300, L501.5200 #### [facility] [address] [place], [place], [address] Automated blood hematocrit ( percentage)Ordered By: Gamaliel Coats on 12-18-2024 Hematocrit (Bld) [Volume fraction] 51.3 % High 37-[address] [facility] Comment on above: Performed By: #### L 501.2300, L501.5200 #### [facility] [address] [place], [place], [address] Automated lymphocyte count a s percentage of total leukocytesOrdered By: Gamaliel Coats on 12-18-2024 Lymphocytes/100 WBC Auto (Unsp spec) 1.4 % Low 19-[address] [facility] BUN/creatinine ratioOrdered By: Gamaliel Coats on 12-18-2024 Urea nitrogen/Creatinine [Mass ratio] 40.2 mg/mg High 10-[address] [facility] Basic Metabolic Profile (BMP )on 12-18-2024 BUN/CRE 40.2 RATIO High 10-[address] [facility] Comment on above: Performed By: #### L 501.2300, L501.5200 #### [facility] [address] [place], [address] ECRCL 58.39 ml/min Normal 50-[address] [facility] Comment on above: Performed By: #### L 501.2300, L501.5200 #### [facility] [address] [place], [address] GAP 21 High 5-[address] [facility] Comment on above: Performed By: #### L 501.2300, L501.5200 #### [facility] [address] [place], [address] Potassium [Moles/Vol] 4.4 mmol/L Normal 3.3-5.1 [facility] Comment on above: Performed By: #### L 501.2300, L501.5200 #### [facility] [address] [place], [address] Basophil percentageOrdered B y: Gamaliel Coats on 12-18-2024 Basophils/100 WBC (Bld) 0.2 % Normal 0-[address] [facility] Comment on above: Performed By: #### L 501.2300, L501.5200 #### [facility] [address] [place], [address] Bilirubin Test strip Ql (U)O rdered By: Gamaliel Coats on 12-18-2024 Bilirubin Ql (U) Negative Negative [facility] Brain without Contraston Brain without Contrast [facility] Imaging Services [address] [place] [address] Brain without Contrast MR#: [id number] Acct: [id number] Name: SHAJI ESQUIVEL Rep #: [id number] : 1960 F 64 From: Alfredo Eaton MD PCP: Care Physician,No Primary Status: ADM IN Study: Brain without Contrast Date of Exam: 12/18/24 Exam# [id number] Ordering Dr: Jayashree Florez DO PROCEDURE: BRAIN WITHOUT CONTRAST 12/18/2024 REASON FOR EXAM: CVA RULE OUT TECHNIQUE: BRAIN WITHOUT CONTRAST Multiplanar and multisequence images were obtained. COMPARISON: None. FINDINGS: There is moderate diffuse cerebral atrophy with concomitant ventriculomegaly. There is patchy low- density of the periventricular and subcortical white matter in both cerebral hemispheres consistent with chronic ischemic white matter disease. There is a normal sulcal pattern and gyral configuration. There is no evidence of acute intracranial hemorrhage or infarction. The laguna-white differentiation is well preserved. There is no evidence of restricted diffusion. The basilar cisterns are normal. There are normal flow voids demonstrated in the recognized intracranial vessels. The cerebellum and brainstem are unremarkable. The cerebellar pontine angles are normal. The craniovertebral junction is normal. The sella and suprasellar regions are normal. The orbits and retro-orbital regions are unremarkable. The nasal septum is deviated to the left the paranasal sinuses are clear. The mastoid air cells are clear. There is normal bone marrow signal in the skull base and calvarium. MRI/Brain without Contrast IMPRESSION: 1. No evidence of acute intracranial pathology. 2. Cerebral atrophy with chronic ischemic white matter disease. 3. Other findings as noted. Reading Location: [place] [address] CC: Dr. Jayashree Florez DO; No Primary Care Physician Icing Mixer: Signed Normal [facility] CBC W/Diff, Automatedon 12-07 Absolute Lymph 0.18 X10 3/uL Low 0.83-4.[address] [facility] Comment on above: Performed By: #### L 501.2300, L501.5200 #### [facility] [address] [place], [address] Absolute Neut 12.5 X10 3/uL High 2.0-7.[address] [facility] Comment on above: Performed By: #### L 501.2300, L501.5200 #### [facility] [address] [place], [address] IG% 0.300 Normal 0.0-0.[address] [facility] Comment on above: Result Comment: IG% - Immature Granulocytes (promyelocytes, myelocytes and metamyelocytes) > 1% indicates that a LEFT SHIFT is Present. Performed By: #### L 501.2300, L501.5200 #### [facility] [address] [place], [address] Lymphocytes/100 WBC (Bld) 1.4 % Low 19-[address] [facility] Comment on above: Performed By: #### L 501.2300, L501.5200 #### [facility] [address] [place], [address] Nucleated RBC (Bld) [#/Vol] 0 10*3/uL Normal 0-[address] [facility] Comment on above: Performed By: #### L 501.2300, L501.5200 #### [facility] [address] [place], [address] RDW SD 44.7 fl High 35.1-43.[address] [facility] Comment on above: Performed By: #### L 501.2300, L501.5200 #### [facility] [address] [place], [address] Carbon dioxide, total [Moles /volume] in Central venous bloodOrdered By: Gamaliel Caots on 12-18-2024 CO2 [Moles/Vol] 19.6 mmol/L Low 21.0-32.[address] [facility] Comment on above: Performed By: #### L 501.2300, L501.5200 #### [facility] [address] [place], [address] Chest 1 Viewon 12-18-2024 Chest 1 View [facility] Imaging Services [address] [place] [address] Chest 1 View MR#: [id number] Acct: [id number] Name: SHAJI ESQUIVEL Rep #: [id number] : 1960 F 64 From: Yahir Vigil MD PCP: Care Physician,No Primary Status: ADM KANDACE Study: Chest 1 View Date of Exam: 12/18/24 Exam# [id number] Ordering Dr: Gamaliel Coats DO PROCEDURE: CHEST 1 VIEW 12/18/2024 REASON FOR EXAM: NEURO DEFICIT, ACUTE, STROKE SUSPECTED TECHNIQUE: Frontal view of the chest. COMPARISON: None FINDINGS: Hardware: None Heart: The heart size is normal. Lungs: No focal consolidation or significant pleural effusion. Bones: Degenerative changes are identified within the thoracic spine. RAD/Chest 1 View IMPRESSION: No acute cardiopulmonary abnormality. Reading Location: [facility] CC: Dr. Gamaliel Coats DO; No Primary Care Physician Icing Mixer: Signed Normal [facility] Chloride assayOrdered By: Skyler Coats on 12-18-2024 Chloride [Moles/Vol] 102 mmol/L Normal 98-108 [facility] Comment on above: Performed By: #### L 501.2300, L501.5200 #### [facility] [address] [facility] [place], [place], [address] Emergency Department Summary on 12-18-2024 Emergency Department Summary [facility] Medical Records Department [address] [place] [address] Emergency Department Summary 12/18/24 MR#: [id number] Acct: [id number] Name: SHAJI ESQUIVEL Rep #: [id number] : 1960 64 From: Gamaliel Forrest PCP: Care Physician,No Primary Status:ADM KANDACE Location: [address] History of Present Illness Chief Complaint: Stroke Alert Informant: EMS Narrative Narrative: From by EMS from facility with prehospital stroke alert. Last normal 6:20 PM tonight hours ago. Unclear on her full baseline however per EMS they had multiple calls this year she is different. They reported slurred speech vision changes and patient reporting pain on her left side. No stroke history she is diabetic blood glucose 195. Reviewing her medication she is on diabetic medicines on a statin, blood pressure medicines, carbidopa and levodopa partially for Parkinson's, no blood thinners. Hypothyroidism. [facility] Medical History Parkinsons Hypertension Diabetes Schizophrenia Home Medications ???Medication ???Instructions ???Recorded ???Last Taken ???Type docusate sodium 100 mg capsule 100 mg PO BID Constipation 7 Unknown History (DOK) sennosides 8.6 mg-docusate sodium 1 tab PO DAILY 01/13/17 Unknown H istory 50 mg tablet (Senna Plus) Benacalorie 1 packet PO TID PRN intake less Unknown History than 50% acetaminophen 500 mg tablet 1,000 mg PO TID PRN fever or pain 12/18/24 Unknown History amlodipine 2.5 mg tablet 2.5 mg PO DAILY 12/18/24 Unknown H istory amlodipine 2.5 mg tablet 2.5 mg PO DAILY 12/18/24 Unknown H istory atorvastatin 10 mg tablet 10 mg PO DAILY 12/18/24 Unknown Hi story atorvastatin 10 mg tablet 10 mg PO DAILY 12/18/24 Unknown Hi story benztropine 1 mg tablet 1 mg PO DAILY 12/18/24 Unknown His tory benztropine 1 mg tablet 1 mg PO QHS 12/18/24 Unknown Histo ry carbidopa 25 mg-levodopa 100 mg 2 tab PO TID 12/18/24 Unknown Hist ory tablet carbidopa 25 mg-levodopa 100 mg 2 tab PO TID 12/18/24 Unknown Hist ory tablet diclofenac sodium 1 % topical gel 4 g topical 4X/DAY 12/18/24 Unkno wn History diclofenac sodium 1 % topical gel 4 g topical 4X/DAY karishma knees and 12/18/24 Unknown History right hip empagliflozin 25 mg tablet 25 mg PO DAILY 12/18/24 Unknown Hi story (Jardiance) estradiol 0.01% (0.1 mg/gram) 0.5 appful vaginal MOWEFR 12/18/24 Unknown History vaginal cream estradiol 0.01% (0.1 mg/gram) 0.5 appful vaginal DAILY 12/18/24 Unknown History vaginal cream (Estrace) fluoride (sodium) 1.1 % dental 1 applic dental DAILY 12/18/24 Unk nown History cream (Denta 5000 Plus) glipizide 10 mg tablet 10 mg PO BID 12/18/24 Unknown Hist ory glipizide 10 mg tablet 10 mg PO BID 12/18/24 Unknown Hist ory levothyroxine 75 mcg tablet 75 mcg PO DAILY 12/18/24 Unknown H istory melatonin 3 mg tablet 3 mg PO QHS 12/18/24 Unknown Histo ry metformin 500 mg tablet,extended 1,000 mg PO BID 12/18/24 Unknown H istory release 24 hr mirtazapine 30 mg disintegrating 30 mg PO QHS 12/18/24 Unknown Hist ory tablet multivitamin with minerals-ferrous 1 tab PO DAILY 12/18/24 Unknown History fumarate 15 mg iron tablet nut.tx.glucose intolerance,soy 1 ea PO 4X/DAY 12/18/24 Unknown Hi story (Glucerna oral bar) omeprazole 40 mg capsule,delayed 40 mg PO DAILY 12/18/24 Unknown Hi story release pimavanserin 34 mg capsule 34 mg PO DAILY 12/18/24 Unknown Hi story (Nuplazid) polyethylene glycol 3350 17 17 g PO DAILY 12/18/24 Unknown His tory gram/dose oral powder potassium chloride 10 mEq 10 meq PO DAILY 12/18/24 Unknown H istory tablet,extended release(part/cryst) repaglinide 0.5 mg tablet 0.5 mg PO BID 12/18/24 Unknown His tory Allergy/AdvReac Type Severity Reaction Status Date / Time Iodinated Contrast Media Allergy UNKNOWN Verified 12/18/24 21:04 (contrast dye - iodinated) Social History Smoking Status: Unknown if ever smoked ROS ROS ED Constitutional Constitutional ED: Denies fever(s) Cardiovascular Cardiovascular: Denies chest pain Respiratory/Chest Respiratory/Chest: Denies cough Gastrointestinal Gastrointestinal: Denies diarrhea or vomiting Musculoskeletal Musculoskeletal: Reports other Details: Left-sided arm and leg pain ; Denies none Integumentary Denies rash or wounds Neurologic Neurologic: Denies weakness EXAM Physical Exam Const Vital Signs: 12/18/24 21:00 12/18/24 21:04 12/18/24 21:29 Temperature 97.8 F Temperature Source Oral Pulse Rate 106 H Respiratory Rate 16 Blood Pressure 145/82 H Blood Pressure Mean 103 Pulse Ox 93 91 Oxygen Delivery Met (more content not included)... Normal [facility] Eosinophil percentageOrdered By: Gamaliel Coats on 12-18-2024 Eosinophils/100 WBC (Bld) 0.4 % Normal 0-[address] [facility] Comment on above: Performed By: #### L 501.2300, L501.5200 #### [facility] [address] [place], [address] Erythrocyte distribution wid th ratioOrdered By: Gamaliel Coats on 12-18-2024 Erythrocyte distribution width (RBC) [Ratio] 12.8 % Normal 11.6-14.[address] [facility] Comment on above: Performed By: #### L 501.2300, L501.5200 #### [facility] [address] [place], [address] Erythrocyte distribution wid th standard deviationOrdered By: Gamaliel Coats on 12-18-2024 Erythrocyte distribution width (RBC) [Ratio] 44.7 fl High 35.1-43.[address] [facility] Glomerular filtration rate ( GFR) estimation/1.73 sq m using serum, plasma, or whole bOrdered By: Gamaliel Coats on 12-18-2024 GFR/1.73 sq M.predicted among non-blacks MDRD (S/P/Bld) [Vol rate/Area] 71 mL/min/{1.73_m2} Normal >[address] [facility] Comment on above: mL/min/1.73m2 CKD-EP I Creatinine Equation (2020) Result Comment: mL/m in/1.73m2 CKD-EPI Creatinine Equation (2020) Performed By: #### L 501.2300, L501.5200 #### [facility] [address] [place], [address] H AND P Exam - Hospital[place] 12-18-2024 H&P Exam - Hospitalist [facility] Medical Records Department [address] [place] [address] H P Exam - Hospitalist 12/18/244 MR#: [id number] Acct: [id number] Name: SHAJI ESQUIVEL Rep #: [id number] : 1960 64 From: Jayashree Florez DO PCP: Care Physician,No Primary Status:ADM KANDACE Location: [place] [id number] HPI - General General Date of Admission: 12/18/24 Date of Service: 12/18/24 Chief Complaint: Slurred speech with facial droop HPI Narrative SHAJI ESQUIVEL, is a 64 F who presented to [facility] ED on 12/18/2024 with slurred speech and facial droop. Medical history significant for dementia due to Parkinson's disease, hypertension, hyperlipidemia and type 2 diabetes. Patient has lived in assisted living for the past 6 years or so. At baseline she needs assistance to ambulate, will otherwise use a wheelchair. Needs help bathing and dressing. Typically does not know the month or age. She also typically reports chronic whole body pain. Staff member who knows her well accompanied her to the ED today. She noticed that the patient seemed off from her usual today. Patient usually has good energy level and very good appetite. However today she seemed more fatigued and ate very little. She noticed the patient was staring off for seconds at a time this afternoon which was not her usual. Then this evening patient appeared to have a facial droop, and when staff attempted to have her speak to them she had slurred speech, so they brought her in for further evaluation. She was a stroke alert in the ED. Vitals notable for mild sinus tachycardia to the 100s, mild hypertension to the 140s systolic, otherwise stable on room air. CT brain was unremarkable. Patient has a contrast allergy so CTA head and neck was not done. Chest x-ray was unremarkable. Labs notable for WBC count 13 with neutrophil predominance and lymphopenia, creatinine 0.9 (baseline around 0.7), BUN 36, glucose 192. UA showed 150 ketones, 1000 glucose, otherwise unremarkable and noninfectious appearing. NIH score of 4 per neurology. TNK was not given as patient is not ambulatory on her own. Hospitalist was contacted for admission. I saw the patient at bedside in the ED, guarding was present. Patient was fatigued appearing but otherwise laying back comfortably in bed and in no acute distress. She opened her eyes for me and did complain of full body pain but otherwise was not answering questions appropriately for me. Will be admitted for further management. [facility] Medical History (Updated 12/19/24 @ 00:[address] Jayashree Florez DO) Parkinsons Hypertension Diabetes Schizophrenia Home Medications ???Medication ???Instructions ???Recorded ???Last Taken ???Type docusate sodium 100 mg capsule 100 mg PO BID Constipation 7 Unknown History (DOK) sennosides 8.6 mg-docusate sodium 1 tab PO DAILY 01/13/17 Unknown H istory 50 mg tablet (Senna Plus) Benacalorie 1 packet PO TID PRN intake less Unknown History than 50% acetaminophen 500 mg tablet 1,000 mg PO TID PRN fever or pain 12/18/24 Unknown History amlodipine 2.5 mg tablet 2.5 mg PO DAILY 12/18/24 Unknown H istory amlodipine 2.5 mg tablet 2.5 mg PO DAILY 12/18/24 Unknown H istory atorvastatin 10 mg tablet 10 mg PO DAILY 12/18/24 Unknown Hi story atorvastatin 10 mg tablet 10 mg PO DAILY 12/18/24 Unknown Hi story benztropine 1 mg tablet 1 mg PO DAILY 12/18/24 Unknown His tory benztropine 1 mg tablet 1 mg PO QHS 12/18/24 Unknown Histo ry carbidopa 25 mg-levodopa 100 mg 2 tab PO TID 12/18/24 Unknown Hist ory tablet carbidopa 25 mg-levodopa 100 mg 2 tab PO TID 12/18/24 Unknown Hist ory tablet diclofenac sodium 1 % topical gel 4 g topical 4X/DAY 12/18/24 Unkno wn History diclofenac sodium 1 % topical gel 4 g topical 4X/DAY karishma knees and 12/18/24 Unknown History right hip empagliflozin 25 mg tablet 25 mg PO DAILY 12/18/24 Unknown Hi story (Jardiance) estradiol 0.01% (0.1 mg/gram) 0.5 appful vaginal MOWEFR 12/18/24 Unknown History vaginal cream estradiol 0.01% (0.1 mg/gram) 0.5 appful vaginal DAILY 12/18/24 Unknown History vaginal cream (Estrace) fluoride (sodium) 1.1 % dental 1 applic dental DAILY 12/18/24 Unk nown History cream (Denta 5000 Plus) glipizide 10 mg tablet 10 mg PO BID 12/18/24 Unknown Hist ory glipizide 10 mg tablet 10 mg PO BID 12/18/24 Unknown Hist ory levothyroxine 75 mcg tablet 75 mcg PO DAILY 12/18/24 Unknown H istory melatonin 3 mg tablet 3 mg PO QHS 12/18/24 Unknown Histo ry metformin 500 mg tablet,extended 1,000 mg PO BID 12/18/24 Unknown H istory release 24 hr mirtazapine 30 mg disintegrating 30 mg PO QHS 12/18/24 Unknown Hist ory tablet multivitamin with minerals-ferrous 1 tab PO DAILY 12/18/24 Unknown History fumarate 15 mg iron tablet (more content not included)... Normal [facility] Hemoglobin A1c percentageOrd ered By: Jayashree Florez on 12-18-2024 HbA1c (Bld) [Mass fraction] 7.4 % High <=5.[address] [facility] Comment on above: Normal < 5.7 % Predi abetic 5.7 - 6.4 % Diabetic >or= 6.5 % Please note range changes. Result Comment: Norm al < 5.7 % Prediabetic 5.7 - 6.4 % Diabetic >or= 6.5 % Please note range changes. Performed By: #### L 501.6901 #### [facility] [address] [place], [place], [id number] Hemoglobin measurementOrdere d By: Gamaliel Coats on 12-18-2024 Hemoglobin (Bld) [Mass/Vol] 16.0 g/dL High 12.0-15.[address] [facility] Comment on above: Performed By: #### L 501.2300, L501.5200 #### [facility] [address] [place], [place], [id number] Immature granulocytes/100 WB C Auto (Bld)Ordered By: Gamaliel Coats on 12-18-2024 Immature granulocytes/100 WBC (Bld) 0.300 % 0.0-0.[address] [facility] Comment on above: IG% - Immature Granu locytes (promyelocytes, myelocytes and metamyelocytes) > 1% indicates that a LEFT SHIFT is Present. International normalized rat io (INR) calculationOrdered By: Gamaliel Coats on 12-18-2024 INR Coag (Bld) [Relative time] 1.0 {INR} [facility] Ketones Test strip Ql (U)Ord ered By: Gamaliel Coats on 12-18-2024 Ketones Ql (U) 150 mg/dl Abnormal Negative [facility] Comment on above: CRITICAL VALUE GLASS Ameena TO CYNDIE ORR12/18/24 2244 Acacia Renteria.RESULTS READ BACK BY SAME. L501.4021on 12-18-2024 Trop T High Sen 10 ng/L Normal <=[address] [facility] Comment on above: Performed By: #### L 501.2300, L501.5200 #### [facility] [address] [place], [address] MCV (mean corpuscular volume ) determinationOrdered By: Gamaliel Coats on 12-18-2024 MCV (RBC) [Entitic vol] 95.4 fL Normal 81-[address] [facility] Comment on above: Performed By: #### L 501.2300, L501.5200 #### [facility] [address] [place], [address] Mean corpuscular hemoglobin (MCH) determinationOrdered By: Gamaliel Coats on 12-18-2024 MCH (RBC) [Entitic mass] 29.7 pg Normal 27.0-32.[address] [facility] Comment on above: Performed By: #### L 501.2300, L501.5200 #### [facility] [address] [place], [address] Mean corpuscular hemoglobin concentration (MCHC) determinationOrdered By: Gamaliel Coats on 12-18-2024 MCHC (RBC) [Mass/Vol] 31.2 g/dL Low 32-36 [facility] Comment on above: Performed By: #### L 501.2300, L501.5200 #### [facility] [address] [place], [address] Mean platelet volume determi nationOrdered By: Gamaliel Coats on 12-18-2024 Platelet mean volume (Bld) [Entitic vol] 9.3 fL Normal 6.2-12.[address] [facility] Comment on above: Performed By: #### L 501.2300, L501.5200 #### [facility] [address] [place], [place], [address] Microscopic analysis of urin e for red blood cells (RBC)Ordered By: Gamaliel Coats on 12-18-2024 Microscopic analysis of urine for red blood cells (RBC) 0-5 SEEN /hpf 0-[address] [facility] Monocyte percentageOrdered B y: Gamaliel Coats on 12-18-2024 Monocytes/100 WBC (Bld) 2.0 % Normal 0-[address] [facility] Comment on above: Performed By: #### L 501.2300, L501.5200 #### [facility] [address] [place], [place], [id number] Mucus LM Ql (Urine sed)Order ed By: Gamaliel Coats on 12-18-2024 Mucus Ql (Urine sed) 0 SEEN /hpf [facility] Neutrophil percentageOrdered By: Gamaliel Coats on 12-18-2024 Neutrophils/100 WBC (Bld) 95.7 % High 47-[address] [facility] Comment on above: Performed By: #### L 501.2300, L501.5200 #### [facility] [address] [place], [place], [address] Nitrite Test strip Ql (U)Ord ered By: Gamaliel Coats on 12-18-2024 Nitrite Ql (U) Negative Negative [facility] Nucleated red blood cell per centageOrdered By: Gamaliel Coats on 12-18-2024 Nucleated RBC/100 WBC (Bld) [Ratio] 0 % 0-[address] [facility] Partial Thromboplast Timeon 12-18-2024 aPTT Coag (Bld) [Time] 22.4 s Low 24.1-36.2 [facility] Comment on above: Performed By: #### L 501.2300, L501.5200 #### [facility] [address] [place], [place], [id number] Platelet countOrdered By: Skyler Coats on 12-18-2024 Platelets (Bld) [#/Vol] 295 10*3/uL Normal 150-[address] [facility] Comment on above: Performed By: #### L 501.2300, L501.5200 #### [facility] [address] [place], [address] Potassium measurement (mass/ volume)Ordered By: Gamaliel Coats on 12-18-2024 Potassium (Unsp spec) [Mass/Vol] 4.4 mmol/L 3.3-5.[address] [facility] Protein Test strip Ql (U)Ord ered By: Gamaliel Coats on 12-18-2024 Protein Ql (U) 30 mg/dl High Negative [facility] Prothrombin Time w/INRon INR Coag (PPP) [Relative time] 1.0 {INR} Normal [facility] Comment on above: Performed By: #### L 501.2300, L501.5200 #### [facility] [address] [place], [address] Prothrombin timeOrdered By: Gamaliel Coats on 12-18-2024 PT Coag (PPP) [Time] 13.5 s Normal 11.7-14.9 [facility] Comment on above: Performed By: #### L 501.2300, L501.5200 #### [facility] [address] [place], [address] STROKE Brain/Head without Co nton 12-18-2024 STROKE Brain/Head without Cont [facility] Imaging Services [address] [place] [address] STROKE Brain/Head without Cont MR#: [id number] Acct: [id number] Name: SHAJI ESQUIVEL Rep #: [id number] : 1960 F 64 From: Yahir Vigil MD PCP: Dr. Antwan Watters MD Status: REG ER Study: STROKE Brain/Head without Cont Date of Exam: 0 12/18/24 Exam# [id number] Ordering Dr: Gamaliel Coats DO PROCEDURE: STROKE BRAIN/HEAD WITHOUT CONT 12/18/2024 REASON FOR EXAM: NEURO DEFICIT, ACUTE, STROKE SUSPECTED TECHNIQUE: STROKE BRAIN/HEAD WITHOUT CONT Coronal and Sagittal reconstruction series were provided. One or more dose reduction techniques were used (e.g., Automated exposure control, adjustment of the mA and/or kV according to patient size, use of iterative reconstruction technique. RADIATION DOSE SUMMARY: CTDlvol: 45 mGy DLP: 830 mGycm COMPARISON: None FINDINGS: Brain: No acute intracranial hemorrhage, mass effect, or midline shift. Extensive low density in the deep cerebral white matter most likely represents advanced chronic small vessel ischemic disease. CSF Spaces: Generalized cerebral atrophy. Sinuses/Mastoids: Predominantly clear. Bones: Unremarkable Scalp: Slight thickening of the soft tissues in the right forehead. CT/STROKE Brain/Head without Cont IMPRESSION: 1. No definite evidence of an acute intracranial abnormality. There is hypodensity throughout the white matter suggestive of chronic small vessel ischemic disease, and which limits evaluation for acute ischemia. Consider MRI if there is persistent concern. 2. Slight thickening in the soft tissues of the right forehead, correlate with findings on exam. The critical information above was relayed directly by me by telephone to Gamaliel Coats on 12/18/2024 at 9:13 pm with readback verification. Reading Location: [id number] CC: Dr. Antwan Watters MD; Dr. Gamaliel Coats DO Icing Mixer: Signed Normal [facility] Serum creatinine measurement (mass/volume)Ordered By: Gamaliel Coats on 12-18-2024 Creatinine [Mass/Vol] 0.90 mg/dL Normal 0.70-1.20 [facility] Comment on above: Performed By: #### L 501.2300, L501.5200 #### [facility] [address] [place], [place], [address] Serum glucose measurement (m ass/volume)Ordered By: Gamaliel Coats on 12-18-2024 Glucose [Mass/Vol] 192 mg/dL High 70-99 [facility] Comment on above: Performed By: #### L 501.2300, L501.5200 #### [facility] [address] [place], [address] Serum or plasma calcium ofelia urement (mass/volume)Ordered By: Gamaliel Coats on 12-18-2024 Calcium [Mass/Vol] 9.3 mg/dL Normal 7.6-11.0 [facility] Comment on above: Performed By: #### L 501.2300, L501.5200 #### [facility] [address] [place], [address] Serum or plasma urea nitroge n measurement (mass/volume)Ordered By: Gamaliel Coats on 12-18-2024 Urea nitrogen [Mass/Vol] 36 mg/dL High 4-[address] [facility] Comment on above: Performed By: #### L 501.2300, L501.5200 #### [facility] [address] [place], [address] Sodium levelOrdered By: Gamaliel Coats on 12-18-2024 Sodium [Moles/Vol] 143 mmol/L Normal 133-145 [facility] Comment on above: Performed By: #### L 501.2300, L501.5200 #### [facility] [address] [place], [address] Squamous epithelial cells de tection in urine sediment by light microscopyOrdered By: Gamaliel Coats on 12-18-2024 Epithelial cells.squamous LM Ql (Urine sed) 0-5 SEEN /hpf 5-[address] [facility] TSH DL <= 0.005 mIU/L QnOrde red By: Jayashree Florez on 12-18-2024 TSH Qn 1.520 uIU/mL 0.300-4.[address] [facility] Thyroid Stim Hormone (TSH)on 12-18-2024 TSH 1.520 uIU/mL Normal 0.300-4.[address] [facility] Comment on above: Performed By: #### L 501.2300, L501.5200 #### [facility] [address] [place], [address] Troponin T.cardiac [Mass/vol ume] in Serum or Plasma by High sensitivity methodOrdered By: Gamaliel Coats on 12-18-2024 Troponin T.cardiac High sensitivity method [Mass/Vol] 11 ng/L <[address] [facility] Troponin T.cardiac High sensitivity method [Mass/Vol] 10 ng/L <[address] [facility] Urinalysis, Completeon 12-18 BACTERIA RARE Normal None Seen [facility] Comment on above: Order Comment: Comme nts: May add to ED labs Comments: may add to ED labs Performed By: #### L 501.2300, L501.5200 #### [facility] [address] [place], [address] EPI,SQUAMOUS 0-5 SEEN Normal 5-[address] [facility] Comment on above: Order Comment: Comme nts: May add to ED labs Comments: may add to ED labs Performed By: #### L 501.2300, L501.5200 #### [facility] [address] [place], [address] RBC 0-5 SEEN Normal 0-[address] [facility] Comment on above: Order Comment: Comme nts: May add to ED labs Comments: may add to ED labs Performed By: #### L 501.2300, L501.5200 #### [facility] [address] [place], [address] WBC 0-5 SEEN Normal 0-[address] [facility] Comment on above: Order Comment: Comme nts: May add to ED labs Comments: may add to ED labs Performed By: #### L 501.2300, L501.5200 #### [facility] [address] [place], [address] Mucus Ql (Urine sed) 0 SEEN Normal [facility] Comment on above: Order Comment: Comme nts: May add to ED labs Comments: may add to ED labs Performed By: #### L 501.2300, L501.5200 #### [facility] [address] [place], [place], [id number] Urine clarityOrdered By: Zack Coats on 12-18-2024 Clarity (U) Clear Clear [facility] Urine color determinationOrd ered By: Gamaliel Coats on 12-18-2024 Color (U) Yellow Yellow [facility] Urine glucose detectionOrder ed By: Gamaliel Coats on 12-18-2024 Glucose Ql (U) 1000 mg/dl High Normal [facility] Urine leukocyte esterase det ection by dipstickOrdered By: Gamaliel Coats on 12-18-2024 Leukocyte esterase Test strip Ql (U) Negative Negative [facility] Urine pHOrdered By: Gamaliel Coats on 12-18-2024 pH (U) 6.0 [pH] 5.0 - 8.[address] [facility] Urine sediment bacteria coun t by microscopy (number/high power field)Ordered By: Gamaliel Coats on 12-18-2024 Bacteria LM.HPF (Urine sed) [#/Area] RARE /hpf None Seen [facility] Urine specific gravity measu rementOrdered By: Gamaliel Coats on 12-18-2024 Specific gravity (U) [Rel density] 1.015 1.002-1.[address] [facility] Urine urobilinogen measureme ntOrdered By: Gamaliel Coats on 12-18-2024 Urobilinogen Ql (U) Normal mg/dl Normal [facility] White blood cell (WBC) count Ordered By: Gamaliel Coats on 12-18-2024 WBC (Bld) [#/Vol] 13.1 10*3/uL High 4.4-11.0 [facility] Comment on above: Performed By: #### L 501.2300, L501.5200 #### [facility] [address] [place], [place], [id number] White blood cell countOrdere d By: Gamaliel Coats on 12-18-2024 White blood cell count 0-5 SEEN /hpf 0-[address] [facility] MTB SCREENon 10-08-2024 MITOGEN-NIL 2.68912 IU/mL Normal [facility] Comment on above: Performed By: #### L [id number] #### [facility] [address] [place] [address] Kirill Noe M.D. [id number] MTB SCREEN INTERPRETATION Negative Normal Negative [facility] Comment on above: Result Comment: No I FN-gamma response to M tuberculosis antigens was detected. Latent infection with M tuberculosis is unlikely. A single negative result does not exclude infection with M tuberculosis. In patients at high risk for M tuberculosis infection,a second test should be considered Performed By: #### L [id number] #### [facility] [address] [place] [address] Kirill Noe M.D. [id number] NIL 0.56131 IU/mL Normal [facility] Comment on above: Performed By: #### L [id number] #### [facility] [address] [place] [address] Kirill Noe M.D. [id number] TB1-NIL -0.41505 IU/mL Normal 0.00 0.34 [facility] Comment on above: Performed By: #### L [id number] #### [facility] [address] [place] [address] Kirill Noe M.D. [id number] TB2-NIL 0.61936 IU/mL Normal 0.00 0.34 [facility] Comment on above: Result Comment: Inte rferon [...] out TB Infection. Performed By: #### L [id number] #### [facility] [address] [place] [address] Kirill Noe M.D. [id number] XR UPPER GI W/SMALL BOWEL FO LLOW [...] FriSep 30, 2024 11:42:[address] [facility] Comment on above: Order Comment: Injur y/Trauma or Illness?:Injury/Trauma How long have you had these symptoms (acute/chronic)?:Acute Reason for exam?:fall History of cancer?:u Surgeries, chemotherapy, or radiation?:u Type of Exam?:Initial Mechanism of injury?:. ALBUMIN, RANDOM URINE W/CREA Emiel 09-22-2024 ALBUMIN, URINE 0.4 mg/dL Normal See Note: [facility] Comment on above: Order Comment: FASTI NG:NO FASTING: NO Result Comment: Refe dena Range: Reference Range Not established Performed By: #### 6 517 #### [facility] [address], [address] [place] [address] [employer] Supervisor: Russell Pagan MD ALBUMIN/CREATININE RATIO, RANDOM URINE [...] By: #### 6 517 #### [facility] [address], [address] [place] [address] [employer] Supervisor: Russell Pagan MD Creatinine (U) [Mass/Vol] 36 mg/dL Normal 20-275 [facility] Comment on above: Order Comment: FASTI NG:NO FASTING: NO Performed By: #### 6 517 #### [facility] [address], [address] [place] [address] [employer] Supervisor: Russell Pagan MD HEMOGLOBIN A1con 09-22-2024 HbA1c [...] children. Performed By: #### 4 96 #### [facility] [address], [address] [place] [address] [employer] Supervisor: Russell Pagan MD POC GLUCOSE - [facility] 025 Glucose [Mass/Vol] 218 mg/dL [address] Comment on above: Performed By: #### 4 6932 ####[facility] [address] [place] [address] [place] Mcclain M.D. [id number] Glucose [Mass/Vol] 143 mg/dL [address] Comment on above: Performed By: #### 4 6914 #### [facility] [address] [address] David Mcclain M.D. [id number] POC GLUCOSE - [facility] 025 Glucose [Mass/Vol] 170 mg/dL [address] Comment on above: Performed By: #### 4 6932 #### LAB [address] [address] David Mcclain M.D. [id number] Glucose [Mass/Vol] 134 mg/dL [address] Comment on above: Performed By: #### 4 6914 #### [facility] [address] [address] David Mcclain M.D. [id number] Glucose [Mass/Vol] 154 mg/dL [address] Comment on above: Performed By: #### 4 6938 #### LAB [address] [address] David Mcclain M.D. [id number] Glucose [Mass/Vol] 120 mg/dL [address] Comment on above: Performed By: #### 4 5136 #### LAB [address] [address] David Mcclain M.D. [id number] POC GLUCOSE - [facility] 025 Glucose [Mass/Vol] 107 mg/dL [address] Comment on above: Performed By: #### 4 7857 #### LAB [address] [address] David Mcclain M.D. [id number] Glucose [Mass/Vol] 106 mg/dL High [address] [place] [address] Comment on above: Performed By: #### 4 6932 #### LAB [address] [place], [place] [address] David Mcclain M.D. [id number] LIPASEon 07-20-2024 Lipase [Catalytic activity/Vol] 36 U/L Normal [facility] Comment on above: Performed By: #### 4 6932 #### LAB [address] [place], [place] [address] David Mcclain M.D. [id number] POC GLUCOSE - [facility] 025 Glucose [Mass/Vol] 131 mg/dL [address] Comment on above: Performed By: #### 4 6932 #### LAB [address] [id number] David Mcclain M.D. [id number] Glucose [Mass/Vol] 147 mg/dL [address] Comment on above: Performed By: #### 4 6932 #### LAB [address] [place], [place] [address] David Mcclain M.D. [id number] Glucose [Mass/Vol] 131 mg/dL [address] Comment on above: Performed By: #### 4 6932 #### LAB [address] [id number] David Mcclain M.D. [id number] Glucose [Mass/Vol] 160 mg/dL [address] Comment on above: Performed By: #### 4 6932 #### LAB [address] [id number] David Mcclain M.D. [id number] URINE AEROBIC CULTUREon 07-10 URINE AEROBIC CULTURE [...] Extended Susc Islt S Negative F Abnormal [facility] Comment on above: Performed By: #### 4 6984 #### LAB [address] [address] David Mcclain M.D. [id number] APTTon 07-19-2024 aPTT Coag (Bld) [Time] 23 s Normal 23-34 [facility] Comment on above: Order Comment: Thera peutic range for APTT's is 68 - 104 seconds Performed By: #### 4 5113 #### LAB [address] [address] David Mcclain M.D. [id number] CBC WITH AUTO DIFFERENTIALon 07-19-2024 AUTO NRBC 0.0 % Normal [facility] Comment on above: Performed By: #### 4 6919 #### LAB [address] [address] David Mcclain M.D. [id number] AUTO NRBC ABS COUNT 0.00 K/mcL Normal 0.00-0.00 [facility] Comment on above: Performed By: #### 4 6937 #### LAB [address] [address] David Mcclain M.D. [id number] BASOPHILS ABSOLUTE COUNT 0.01 K/mcL Normal 0.00-0.30 [facility] Comment on above: Performed By: #### 4 6923 #### LAB [address] [address] David Mcclain M.D. [id number] Basophils/100 WBC (Bld) 0.2 % Normal [facility] Comment on above: Performed By: #### 4 6981 #### LAB [address] [address] David Mcclain M.D. [id number] Eosinophils (Bld) [#/Vol] 0.20 10*3/uL Normal 0.00-0.50 [facility] Comment on above: Performed By: #### 4 2626 #### LAB [address] [address] David Mcclain M.D. [id number] Eosinophils/100 WBC (Bld) 3.3 % Normal [facility] Comment on above: Performed By: #### 4 6511 #### LAB [address] [address] David Mcclain M.D. [id number] Erythrocyte distribution width (RBC) [Ratio] 13.3 % Normal 11.6-14.8 [facility] Comment on above: Performed By: #### 4 8442 #### LAB [address] [address] David Mcclain M.D. [id number] Hematocrit (Bld) [Volume fraction] 47.7 % High 36.0-46.0 [facility] Comment on above: Performed By: #### 4 0287 #### LAB [address] [address] David Mcclain M.D. [id number] Hemoglobin (Bld) [Mass/Vol] 14.4 g/dL Normal 12.0-16.0 [facility] Comment on above: Performed By: #### 4 4014 #### LAB [address] [address] David Mcclain M.D. [id number] IG ABSOLUTE 0.02 K/mcL Normal 0.00-0.30 [facility] Comment on above: Performed By: #### 4 6997 #### LAB [address] [address] David Mcclain M.D. [id number] IG PERCENT 0.30 % Normal [facility] Comment on above: Result Comment: The IG parameter is the percentage of metamyelocytes, myelocytes and promyelocytes. An immature granulocyte count (IG) of 1% or more suggests the possibility of infection, an IG count of 3% is very likely related to an infection. Performed By: #### 4 6916 #### LAB [address] [address] David Mcclain M.D. [id number] Lymphocytes (Bld) [#/Vol] 0.92 10*3/uL Normal 0.90-4.00 [facility] Comment on above: Performed By: #### 4 6968 #### LAB [address] [address] David Mcclain M.D. [id number] Lymphocytes/100 WBC (Bld) 15.4 % Normal [facility] Comment on above: Performed By: #### 4 6922 #### LAB [address] [address] David Mcclain M.D. [id number] MCH (RBC) [Entitic mass] 28.7 pg Normal 26.0-34.0 [facility] Comment on above: Performed By: #### 4 4324 #### LAB [address] [address] David Mcclain M.D. [id number] MCV (RBC) [Entitic vol] 95.0 fL Normal 80.0-100.0 [facility] Comment on above: Performed By: #### 4 5192 #### LAB [address] [address] David Mcclain M.D. [id number] MEAN CORPUSCULAR HEMOGLOBIN CONC 30.2 g/dL Low 31.0-37.0 [facility] Comment on above: Performed By: #### 4 4537 #### LAB [address] [address] David Mcclain M.D. [id number] Monocytes (Bld) [#/Vol] 0.40 10*3/uL Normal 0.30-0.90 [facility] Comment on above: Performed By: #### 4 6925 #### LAB [address] [address] David Mcclain M.D. [id number] Monocytes/100 WBC (Bld) 6.7 % Normal [facility] Comment on above: Performed By: #### 4 6931 #### LAB [address] [address] David Mcclain M.D. [id number] NEUTROPHILS ABSOLUTE COUNT 4.43 K/mcL Normal 1.70-7.00 [facility] Comment on above: Performed By: #### 4 6932 #### LAB [address] [address] David Mcclain M.D. [id number] Neutrophils/100 WBC (Bld) 74.1 % Normal [facility] Comment on above: Performed By: #### 4 6932 #### LAB [address] [address] David Mcclain M.D. [id number] Platelet mean volume (Bld) [Entitic vol] 10.4 fL Normal 9.4-12.4 [facility] Comment on above: Performed By: #### 4 6915 #### LAB [address] [address] David Mcclain M.D. [id number] Platelets (Bld) [#/Vol] 294 10*3/uL Normal 150-400 [facility] Comment on above: Performed By: #### 4 9053 #### LAB [address] [address] David Mcclain M.D. [id number] RBC (Bld) [#/Vol] 5.02 10*6/uL Normal 4.00-5.20 [facility] Comment on above: Performed By: #### 4 5227 #### LAB [address] [address] David Mcclain M.D. [id number] WBC (Bld) [#/Vol] 5.98 10*3/uL Normal 4.50-11.00 [facility] Comment on above: Performed By: #### 4 6932 #### LAB [address] [address] David Mcclain M.D. [id number] COMPREHENSIVE METABOLIC PANE Huan 07-19-2024 Albumin [Mass/Vol] 4.4 g/dL Normal 3.2-5.2 [facility] Comment on above: Order Comment: [facility] has implemented the eGFR calculation approach that does not have a coefficient for race that conforms to the NKF-ASN Task Force Recommendations. Performed By: #### 4 6932 #### LAB [address] [address] David Mcclain M.D. [id number] ALP [Catalytic activity/Vol] 68 U/L Normal 40-150 [facility] Comment on above: Order Comment: [facility] has implemented the eGFR calculation approach that does not have a coefficient for race that conforms to the NKF-ASN Task Force Recommendations. Performed By: #### 4 6932 #### LAB [address] [address] David Mcclain M.D. [id number] ALT [Catalytic activity/Vol] 15 U/L Normal 0-35 U/L [facility] Comment on above: Order Comment: [facility] has implemented the eGFR calculation approach that does not have a coefficient for race that conforms to the NKF-ASN Task Force Recommendations. Performed By: #### 4 6932 #### LAB [address] [address] David Mcclain M.D. [id number] Anion gap [Moles/Vol] 18 mmol/L Normal 10-20 [facility] Comment on above: Order Comment: [facility] has implemented the eGFR calculation approach that does not have a coefficient for race that conforms to the NKF-ASN Task Force Recommendations. Performed By: #### 4 6932 #### LAB [address] [place], [place] [address] David Mcclain M.D. [id number] AST [Catalytic activity/Vol] 17 U/L Normal 0-35 U/L [facility] Comment on above: Order Comment: [facility] has implemented the eGFR calculation approach that does not have a coefficient for race that conforms to the NKF-ASN Task Force Recommendations. Performed By: #### 4 6932 #### LAB [address] [address] David Mcclain M.D. [id number] Bilirubin [Mass/Vol] 0.2 mg/dL Normal 0.0-1.3 [facility] Comment on above: Order Comment: [facility] has implemented the eGFR calculation approach that does not have a coefficient for race that conforms to the NKF-ASN Task Force Recommendations. Performed By: #### 4 6932 #### LAB [address] [address] David Mcclain M.D. [id number] Calcium [Mass/Vol] 9.8 mg/dL Normal 8.4-10.2 [facility] Comment on above: Order Comment: [facility] has implemented the eGFR calculation approach that does not have a coefficient for race that conforms to the NKF-ASN Task Force Recommendations. Performed By: #### 4 6932 #### LAB [address] [address] David Mcclain M.D. [id number] Chloride [Moles/Vol] 103 mmol/L Normal 98-108 [facility] Comment on above: Order Comment: [facility] has implemented the eGFR calculation approach that does not have a coefficient for race that conforms to the NKF-ASN Task Force Recommendations. Performed By: #### 4 6932 #### LAB [address] [address] David Mcclain M.D. [id number] Creatinine [Mass/Vol] 0.94 mg/dL Normal 0.60-1.10 [facility] Comment on above: Order Comment: [facility] has implemented the eGFR calculation approach that does not have a coefficient for race that conforms to the NKF-ASN Task Force Recommendations. Performed By: #### 4 6960 #### LAB [address] [place], [place] [address] David Mcclain M.D. [id number] EGFR 68 mL/min/1.73 m2 Normal >=60 [facility] Comment on above: Order Comment: [facility] has implemented the eGFR calculation approach that does not have a coefficient for race that conforms to the NKF-ASN Task Force Recommendations. Result Comment: Velasquez mated GFR was calculated using the 2020 CKD-EPI creatinine equation. Performed By: #### 4 6992 #### [facility] [address] [address] David Mcclain M.D. [id number] Glucose [Mass/Vol] 140 mg/dL High 65-99 [facility] Comment on above: Order Comment: [facility] has implemented the eGFR calculation approach that does not have a coefficient for race that conforms to the NKF-ASN Task Force Recommendations. Performed By: #### 4 6911 #### LAB [address] [address] David Mcclain M.D. [id number] HCO3 (Bld) [Moles/Vol] 25 mmol/L Normal 21-32 [facility] Comment on above: Order Comment: [facility] has implemented the eGFR calculation approach that does not have a coefficient for race that conforms to the NKF-ASN Task Force Recommendations. Performed By: #### 4 6932 #### LAB [address] [place], [place] [address] David Mcclain M.D. [id number] Potassium [Moles/Vol] 4.2 mmol/L Normal 3.5-5.1 [facility] Comment on above: Order Comment: [facility] has implemented the eGFR calculation approach that does not have a coefficient for race that conforms to the NKF-ASN Task Force Recommendations. Performed By: #### 4 7738 #### LAB [address] [address] David Mcclain M.D. [id number] Protein [Mass/Vol] 7.5 g/dL Normal 6.0-8.0 [facility] Comment on above: Order Comment: [facility] has implemented the eGFR calculation approach that does not have a coefficient for race that conforms to the NKF-ASN Task Force Recommendations. Performed By: #### 4 6932 #### LAB [address] [address] David Mcclain M.D. [id number] Sodium [Moles/Vol] 142 mmol/L Normal 135-145 [facility] Comment on above: Order Comment: [facility] has implemented the eGFR calculation approach that does not have a coefficient for race that conforms to the NKF-ASN Task Force Recommendations. Performed By: #### 4 6932 #### LAB [address] [address] David Mcclain M.D. [id number] Urea nitrogen [Mass/Vol] 30 mg/dL High 8-25 [facility] Comment on above: Order Comment: [facility] has implemented the eGFR calculation approach that does not have a coefficient for race that conforms to the NKF-ASN Task Force Recommendations. Performed By: #### 4 6932 #### LAB [address] [address] David Mcclain M.D. [id number] Urea nitrogen/Creatinine [Mass ratio] 31.9 mg/mg High 10.0-20.0 [facility] Comment on above: Order Comment: [facility] has implemented the eGFR calculation approach that does not have a coefficient for race that conforms to the NKF-ASN Task Force Recommendations. Performed By: #### 4 6900 #### LAB [address] [address] David Mcclain M.D. [id number] COVID-19/INFLUENZA A,B MOLEC ULARon 07-19-2024 SARS-CoV-2 (COVID-19) Ab IA Ql SARS-COV-2 (LEE ANN) Not Detected INFLUENZA A (LEE ANN) Not Detected INFLUENZA B (LEE ANN) Not Detected Normal Not Detected [facility] Comment on above: Performed By: #### L [id number] ####[facility] [address] [place], [place] [address] David Mcclain M.D. [id number] CT CERVICAL SPINE WITHOUT CO NTRASTon 07-19-2024 [...] cervical canal hematoma. DEGENERATIVE CHANGES: There is uatz-wk-yqrgumjp multilevel discogenic disease and degenerative facet and [...] and th (more content not included)... Normal [facility] Comment on above: Order Comment: Injur [...] cervical canal hematoma. DEGENERATIVE CHANGES: There is mqxl-dc-joettqmi multilevel discogenic disease and degenerative facet and [...] and th (more content not included)... Normal [facility] Comment on above: Order Comment: Injur [...] cervical canal hematoma. DEGENERATIVE CHANGES: There is afcr-wj-jrdofpgv multilevel discogenic disease and degenerative facet and [...] and th (more content not included)... Normal [facility] Comment on above: Order Comment: Injur y/Trauma or Illness?:Illness/OtherHow long have you had these symptoms (acute/chronic)?:AcuteReason for exam?:frequent falls, head pain and back painType of Exam?:InitialAdditional signs and symptoms?:fall ED Prov Noteon 07-19-2024 ED Prov Note [facility] EMERGENCY DEPARTMENT ATTENDING NOTE: NAME: Shaji Esquivel CSN: [id number] 63 y.o. PCP: Mg Evans DO History: Chief Complaint: Fall HPI: 63-year-old female past medical history of hypertension hyperlipidemia diabetes subarachnoid hemorrhage presents to the emergency department from long term assisted living facility for evaluation of multiple falls that been progressively worsening over the past 2 weeks. No specific alleviating or aggravating factors. Today, per assistant nurse manager, patient fell from chair hit back [...] answer Stress: Patient Unable To Answer (07/13/2024) [place] [facility] - Occupational Stress Questionnaire Feeling of Stress : Patient unable to answer Social Connections: Patient Unable To Answer (07/13/2024) Social Connection and Isolation Panel [NHANES] Frequency of Communication with Friends and Family: Patient unable to answer Frequency of Social Gatherings with Friends and Family: Patient unable to answer Attends [employer] Services: Patient unable to answer Active Member [...] total) on top of tongue nightly . cujvxnzm-mii-yzxwtec fumarate 15 mg iron Tab Take 1 tablet by mouth every morning . MULTIVITAMIN ORAL Take (more content not included)... Normal [facility] LIPASEon 07-19-2024 Lipase [Catalytic activity/Vol] 56 U/L Normal 15-65 [facility] Comment on above: Performed By: #### 4 6932 #### LAB [address] [address] David Mcclain M.D. [id number] [facility] Glucose [Mass/Vol] 124 mg/dL High 65-99 [facility] Comment on above: Performed By: #### 4 6932 #### LAB [address] [address] David Mcclain M.D. [id number] Glucose [Mass/Vol] 125 mg/dL High [address] Comment on above: Performed By: #### 4 6932 #### LAB [address] [address] David Mcclain M.D. [id number] PT/INRon 07-19-2024 INR Coag (PPP) [Relative time] 1.0 {INR} Normal 0.8-1.1 [facility] Comment on above: Order Comment: Chantel saunders the induction phase of oral anticoagulation, the INR may not reflect the anticoagulation status of the patient. Therapeutic ranges for INR's are:Most clinical situations: INR 2.0-3.0Mechanical Prosthetic Valve: INR 2.5-3.5Critical: INR >5.0 Performed By: #### 4 6932 #### LAB [address] [address] David Mcclain M.D. [id number] PT Coag (PPP) [Time] 13.2 s Normal 11.8-14.3 [facility] Comment on above: Order Comment: Chantel saunders the induction phase of oral anticoagulation, the INR may not reflect the anticoagulation status of the patient. Therapeutic ranges for INR's are:Most clinical situations: INR 2.0-3.0Mechanical Prosthetic Valve: INR 2.5-3.5Critical: INR >5.0 Performed By: #### 4 6932 #### LAB [address] [address] David Mcclain M.D. [id number] T4, FREEon 07-19-2024 Free T4 [Mass/Vol] 1.6 ng/dL Normal 0.7-1.7 [facility] Comment on above: Performed By: #### 4 6567 #### LAB [address] [address] David Mcclain M.D. [id number] TROPONINon 07-19-2024 BASELINE TROPONIN T NG/L 18 ng/L Off scale high <=14 [facility] Comment on above: Performed By: #### 4 6932 #### LAB [address] [address] David Mcclain M.D. [id number] TROPONIN T INTERPRETATION Possible acute cardiac injury. Normal [facility] Comment on above: Performed By: #### 4 6932 #### [facility] [address] [address] David Mcclain M.D. [id number] TSHon 07-19-2024 TSH Qn 3.18 m[IU]/L Normal 0.27-4.20 [facility] Comment on above: Performed By: #### 4 6613 #### LAB [address] [address] David Mcclain M.D. [id number] URINALYSISon 07-19-2024 BACTERIA, URINE Many Abnormal None Seen [facility] Comment on above: Order Comment: Micro scopic examination is performed on all urinalysis samples and only positive findings are reported. The test for blood on the chemical analytic portion of urinalysis may also be positive due to hemoglobinuria and myoglobinuria and if red blood cells are present they are quantified by microscopic examination. Performed By: #### 4 6932 #### LAB [address] [address] David Mcclain M.D. [id number] BILIRUBIN, URINE Negative Normal Negative [facility] Comment on above: Order Comment: Micro scopic examination is performed on all urinalysis samples and only positive findings are reported. The test for blood on the chemical analytic portion of urinalysis may also be positive due to hemoglobinuria and myoglobinuria and if red blood cells are present they are quantified by microscopic examination. Performed By: #### 4 6932 #### LAB [address] [place] [address] David Mcclain M.D. [id number] BLOOD, URINE Negative Normal Negative [facility] Comment on above: Order Comment: Micro scopic examination is performed on all urinalysis samples and only positive findings are reported. The test for blood on the chemical analytic portion of urinalysis may also be positive due to hemoglobinuria and myoglobinuria and if red blood cells are present they are quantified by microscopic examination. Performed By: #### 4 6932 #### LAB [address] [address] David Mcclain M.D. [id number] Clarity (U) Cloudy Abnormal Clear [facility] Comment on above: Order Comment: Micro scopic examination is performed on all urinalysis samples and only positive findings are reported. The test for blood on the chemical analytic portion of urinalysis may also be positive due to hemoglobinuria and myoglobinuria and if red blood cells are present they are quantified by microscopic examination. Performed By: #### 4 6932 #### LAB [address] [address] David Mcclain M.D. [id number] Color (U) Yellow Normal Colorless, Yellow [facility] Comment on above: Order Comment: Micro scopic examination is performed on all urinalysis samples and only positive findings are reported. The test for blood on the chemical analytic portion of urinalysis may also be positive due to hemoglobinuria and myoglobinuria and if red blood cells are present they are quantified by microscopic examination. Performed By: #### 4 6932 #### LAB [address] [address] David Mcclain M.D. [id number] Glucose Ql (U) >=500 Abnormal Negative, >=1000 [facility] Comment on above: Order Comment: Micro scopic examination is performed on all urinalysis samples and only positive findings are reported. The test for blood on the chemical analytic portion of urinalysis may also be positive due to hemoglobinuria and myoglobinuria and if red blood cells are present they are quantified by microscopic examination. Performed By: #### 4 6932 #### LAB [address] [address] David Mcclain M.D. [id number] Ketones Ql (U) Trace Abnormal Negative [facility] Comment on above: Order Comment: Micro scopic examination is performed on all urinalysis samples and only positive findings are reported. The test for blood on the chemical analytic portion of urinalysis may also be positive due to hemoglobinuria and myoglobinuria and if red blood cells are present they are quantified by microscopic examination. Performed By: #### 4 6932 #### LAB [address] [address] David Mcclain M.D. [id number] Leukocyte esterase Test strip Ql (U) Small Abnormal Negative [facility] Comment on above: Order Comment: Micro scopic examination is performed on all urinalysis samples and only positive findings are reported. The test for blood on the chemical analytic portion of urinalysis may also be positive due to hemoglobinuria and myoglobinuria and if red blood cells are present they are quantified by microscopic examination. Performed By: #### 4 6932 #### LAB [address] [address] David Mcclain M.D. [id number] MUCUS, URINE Rare Normal None Seen, Rare [facility] Comment on above: Order Comment: Micro scopic examination is performed on all urinalysis samples and only positive findings are reported. The test for blood on the chemical analytic portion of urinalysis may also be positive due to hemoglobinuria and myoglobinuria and if red blood cells are present they are quantified by microscopic examination. Performed By: #### 4 6932 #### LAB [address] [address] David Mcclain M.D. [id number] NITRITE, URINE Negative Normal Negative [facility] Comment on above: Order Comment: Micro scopic examination is performed on all urinalysis samples and only positive findings are reported. The test for blood on the chemical analytic portion of urinalysis may also be positive due to hemoglobinuria and myoglobinuria and if red blood cells are present they are quantified by microscopic examination. Performed By: #### 4 6932 #### LAB [address] [place] [address] David Mcclain M.D. [id number] pH (U) 6.5 [pH] Normal 5.0-7.0 [facility] Comment on above: Order Comment: Micro scopic examination is performed on all urinalysis samples and only positive findings are reported. The test for blood on the chemical analytic portion of urinalysis may also be positive due to hemoglobinuria and myoglobinuria and if red blood cells are present they are quantified by microscopic examination. Performed By: #### 4 6932 #### LAB [address] [address] David Mcclain M.D. [id number] PROTEIN, URINE Negative Normal Negative [facility] Comment on above: Order Comment: Micro scopic examination is performed on all urinalysis samples and only positive findings are reported. The test for blood on the chemical analytic portion of urinalysis may also be positive due to hemoglobinuria and myoglobinuria and if red blood cells are present they are quantified by microscopic examination. Performed By: #### 4 6932 #### LAB [address] [address] David Mcclain M.D. [id number] Specific gravity (U) [Rel density] 1.028 High 1.005-1.025 [facility] Comment on above: Order Comment: Micro scopic examination is performed on all urinalysis samples and only positive findings are reported. The test for blood on the chemical analytic portion of urinalysis may also be positive due to hemoglobinuria and myoglobinuria and if red blood cells are present they are quantified by microscopic examination. Performed By: #### 4 6932 #### LAB [address] [address] David Mcclain M.D. [id number] SQUAMOUS EPITHELIAL 8 /hpf High 0-4 [facility] Comment on above: Order Comment: Micro scopic examination is performed on all urinalysis samples and only positive findings are reported. The test for blood on the chemical analytic portion of urinalysis may also be positive due to hemoglobinuria and myoglobinuria and if red blood cells are present they are quantified by microscopic examination. Performed By: #### 4 6932 #### LAB [address] [place] [address] David Mcclain M.D. [id number] UROBILINOGEN, URINE <2.0 Normal <2.0 [facility] Comment on above: Order Comment: Micro scopic examination is performed on all urinalysis samples and only positive findings are reported. The test for blood on the chemical analytic portion of urinalysis may also be positive due to hemoglobinuria and myoglobinuria and if red blood cells are present they are quantified by microscopic examination. Performed By: #### 4 6932 #### LAB [address] [place] [address] David Mcclain M.D. [id number] WBC LM.HPF (Urine sed) [#/Area] 14 /[HPF] High 0-5 [facility] Comment on above: Order Comment: Micro scopic examination is performed on all urinalysis samples and only positive findings are reported. The test for blood on the chemical analytic portion of urinalysis may also be positive due to hemoglobinuria and myoglobinuria and if red blood cells are present they are quantified by microscopic examination. Performed By: #### 4 6932 #### [address] [address] David Mcclain M.D. [id number] XR CHEST PA/APon 07-19-2024 XR CHEST PA/AP [...] FriJul 19, 2024 7:52:[address] [facility] Comment on above: Order Comment: Injur [...] on FriJul 19, 2024 8:28:53 AM EST [facility] Comment on above: Order Comment: Injur [...] on FriJul 19, 2024 8:28:44 AM EST [facility] Comment on above: Order Comment: Injur [...] FriJul 14, 2024 5:20:[address] [facility] Comment on above: Order Comment: Injur [...] FriJul 14, 2024 5:17:[address] [facility] Comment on above: Order Comment: Injur y/Trauma or Illness?:Injury/Trauma How long have you had these symptoms (acute/chronic)?:Acute Reason for exam?:fall History of cancer?:u Surgeries, chemotherapy, or radiation?:u Type of Exam?:Initial Mechanism of injury?:. ED Prov Noteon 07-14-2024 ED Prov Note [facility] EMERGENCY DEPARTMENT ATTENDING NOTE: NAME: Shaji Esquivel CSN: [id number] 63 y.o. PCP: Mg Evans DO History: Chief Complaint: Fall HPI: The history was obtained from the patient and fdc. Shaji is a 63 y.o. female who [...] answer Stress: Patient Unable To Answer (07/13/2024) [facility] - Occupational Stress Questionnaire Feeling of Stress : Patient unable to answer Social Connections: Patient Unable To Answer (07/13/2024) Social Connection and Isolation Panel [NHANES] Frequency of Communication with Friends and Family: Patient unable to answer Frequency of Social Gatherings with Friends and Family: Patient unable to answer Attends Scientologist Services: Patient unable to answer Active Member [...] (500 mg (more content not included)... Normal [facility] XR PELVIS 1 VIEW (STANDARD)o n [...] FriJul 14, 2024 5:45:[address] [facility] Comment on above: Order Comment: Injur y/Trauma or Illness?:Illness/OtherHow long have you had these symptoms (acute/chronic)?:AcuteReason for exam?:Fall, history of dementia, no LOC, right-sided forehead hematoma, poor historianHistory of cancer?:uSurgeries, chemotherapy, or radiation?:uType of Exam?:InitialAdditional signs and symptoms?:. No Panel Informationon 07-09 Radiology Study observation (narrative) [facility] Work Phone: XR HIP RIGHT WITH PELVIS WHE N PERFORMED 2 OR 3 VIEWSon 07-09-2024 XR HIP RIGHT WITH PELVIS WHEN PERFORMED 2 OR 3 VIEWS Interpreted By: Alexys Moran, STUDY: XR HIP RIGHT WITH PELVIS WHEN PERFORMED 2 OR 3 VIEWS; ; 07/09/2024 12:08 pm INDICATION: Signs/Symptoms:pain after fall. COMPARISON: 12/13/2016 ACCESSION NUMBER(S): [id number] ORDERING CLINICIAN: ERNIE HE FINDINGS: Right hip, three views There is no acute fracture dislocation. There is no malalignment. No significant degenerative changes seen IMPRESSION: No acute fracture seen in the right hip. If there is persistent clinical concern CT can be performed for further evaluation MACRO: None Signed by: Alexys Moran 07/09/2024 12:14 PM Dictation workstation: [id number] [facility] XR Hip Viewson 07-09-2024 No acute fracture seen in the right hip. If there is persistent clinical concern CT can be performed for further evaluation MACRO: None Signed by: Alexys Moran 07/09/2024 12:14 PM Dictation workstation: [id number] [facility] Interpreted By: Alexys Moran, STUDY: XR HIP RIGHT WITH PELVIS WHEN PERFORMED 2 OR 3 VIEWS; ; 07/09/2024 12:08 pm INDICATION: Signs/Symptoms:pain after fall. COMPARISON: 12/13/2016 ACCESSION NUMBER(S): [id number] ORDERING CLINICIAN: ERNIE HE FINDINGS: Right hip, three views There is no acute fracture dislocation. There is no malalignment. No significant degenerative changes seen [facility] MMODAL Alexys Moran MD - 07/09/2024 Interpreted By: Alexys Moran, STUDY: XR HIP RIGHT WITH PELVIS WHEN PERFORMED 2 OR 3 VIEWS; ; 07/09/2024 12:08 pm INDICATION: Signs/Symptoms:pain after fall. COMPARISON: 12/13/2016 ACCESSION NUMBER(S): [id number] ORDERING CLINICIAN: ERNIE HE FINDINGS: Right hip, three views There is no acute fracture dislocation. There is no malalignment. No significant degenerative changes seen IMPRESSION: No acute fracture seen in the right hip. If there is persistent clinical concern CT can be performed for further evaluation MACRO: None Signed by: Alexys Moran 07/09/2024 12:14 PM Dictation workstation: [id number] [facility] Work Phone: [facility] Work Phone: XR KNEE RIGHT 1-2 VIEWSon XR KNEE RIGHT 1-2 VIEWS Interpreted By: Alexys Moran, STUDY: XR KNEE RIGHT 1-2 VIEWS; ; 07/09/2024 12:08 pm INDICATION: Signs/Symptoms:pain after fall. COMPARISON: 01/29/2020 ACCESSION NUMBER(S): [id number] ORDERING CLINICIAN: ERNIE HE FINDINGS: Right knee, four views There is no evidence of a fracture. There is no dislocation. There is no effusion. Minimal osteophytosis present in the patella IMPRESSION: No acute abnormality in the right knee MACRO: None Signed by: Alexys Moran 07/09/2024 12:15 PM Dictation workstation: [id number] [facility] XR Knee - right 1 or 2 Views on 07-09-2024 No acute abnormality in the right knee MACRO: None Signed by: Alexys Moran 07/09/2024 12:15 PM Dictation workstation: [id number] MM[facility] Interpreted By: Alexys Moran, STUDY: XR KNEE RIGHT 1-2 VIEWS; ; 07/09/2024 12:08 pm INDICATION: Signs/Symptoms:pain after fall. COMPARISON: 01/29/2020 ACCESSION NUMBER(S): [id number] ORDERING CLINICIAN: ERNIE HE FINDINGS: Right knee, four views There is no evidence of a fracture. There is no dislocation. There is no effusion. Minimal osteophytosis present in the patella MMODAL Alexys Moran MD - 07/09/2024 Interpreted By: Alexys Moran, STUDY: XR KNEE RIGHT 1-2 VIEWS; ; 07/09/2024 12:08 pm INDICATION: Signs/Symptoms:pain after fall. COMPARISON: 01/29/2020 ACCESSION NUMBER(S): [id number] ORDERING CLINICIAN: ERNIE HE FINDINGS: Right knee, four views There is no evidence of a fracture. There is no dislocation. There is no effusion. Minimal osteophytosis present in the patella IMPRESSION: No acute abnormality in the right knee MACRO: None Signed by: Alexys Moran 07/09/2024 12:15 PM Dictation workstation: [id number] [facility] Work Phone: XR Knee - right 1 or 2 Views Ordered By: Alexys Moran on 07-09-2024 [facility] Work Phone: Comprehensive metabolic 2000 panelon 06-28-2024 Albumin BCP dye [Mass/Vol] 4.5 g/dL Normal 3.4-5.0 [facility] Comment on above: Performed By: #### 2 4323-8 #### BRANDON CLARY ([id number]) [facility] ([facility]) [address] [place] [address] ALP [Catalytic activity/Vol] 54 U/L Normal 33-136 [facility] Comment on above: Performed By: #### 2 4323-8 #### ALEKSANDR MEANS ([id number]) [facility] ([facility]) [address] [place] [address] ALT With P-5'-P [Catalytic activity/Vol] 16 U/L Normal 7-45 [facility] Comment on above: Result Comment: Haylee ents treated with Sulfasalazine may generate falsely decreased results for ALT. Performed By: #### 2 4323-8 #### ALEKSANDR MEANS ([id number]) [facility] ([facility]) [address] [place] [address] Anion gap [Moles/Vol] 17 mmol/L Normal 10-20 [facility] Comment on above: Performed By: #### 2 432-8 #### ALEKSANDR MEANS ([id number]) [facility] ([facility]) [address] [place] [address] AST With P-5'-P [Catalytic activity/Vol] 17 U/L Normal 9-39 [facility] Comment on above: Performed By: #### 2 4322-8 #### ALEKSANDR MEANS ([id number]) [facility] ([facility]) [address] [place] [address] Bilirubin [Mass/Vol] 0.3 mg/dL Normal 0.0-1.2 [facility] Comment on above: Performed By: #### 2 432-8 #### ALEKSANDR MEANS ([id number]) [facility] ([facility]) [address] [place] [address] Calcium [Mass/Vol] 9.7 mg/dL Normal 8.6-10.3 [facility] Comment on above: Performed By: #### 2 4323-8 #### ALEKSANDR MEANS ([id number]) [facility] ([facility]) [address] [place] [address] Chloride [Moles/Vol] 105 mmol/L Normal 98-107 [facility] Comment on above: Performed By: #### 2 4323-8 #### ALEKSANDR MEANS ([id number]) [facility] ([facility]) [address] [place] [address] CO2 [Moles/Vol] 26 mmol/L Normal 21-[address] [facility] Comment on above: Performed By: #### 2 4323-8 #### ALEKSANDR MEANS ([id number]) [facility] ([facility]) [facility] [place] [address] Creatinine [Mass/Vol] 0.81 mg/dL Normal 0.50-1.05 [facility] Comment on above: Performed By: #### 2 432-8 #### ALEKSANDR MEANS ([id number]) [facility] ([facility]) [address] [place] [address] Glomerular filtration rate/1.73 sq M.predicted 82 mL/min/1.73m*2 Normal >60 [facility] Comment on above: Result Comment: Calc ulations of estimated GFR are performed using the 2020 CKD-EPI Study Refit equation without the race variable for the IDMS-Traceable creatinine methods. https://jasn.asnjournals.org/content/early//ASN.39690 29947 Performed By: #### 2 4323-8 #### ALEKSANDR MEANS ([id number]) [facility] ([facility]) [address] [place] [address] Glucose [Mass/Vol] 157 mg/dL High 74-99 [facility] Comment on above: Performed By: #### 2 432-8 #### ALEKSANDR MEANS ([id number]) [facility] ([facility]) [address] [place] [address] Potassium [Moles/Vol] 4.7 mmol/L Normal 3.5-5.3 [facility] Comment on above: Performed By: #### 2 4323-8 #### ALEKSANDR MEANS ([id number]) [facility] ([facility]) [address] [place] [address] Protein [Mass/Vol] 7.1 g/dL Normal 6.4-8.2 [facility] Comment on above: Performed By: #### 2 4323-8 #### ALEKSANDR MEANS ([id number]) [facility] ([facility]) [address] [place] [address] Sodium [Moles/Vol] 143 mmol/L Normal 136-145 [facility] Comment on above: Performed By: #### 2 4323-8 #### ALEKSANDR MEANS ([id number]) [facility] ([facility]) [address] [place] [address] Urea nitrogen [Mass/Vol] 29 mg/dL High 6-23 [facility] Comment on above: Performed By: #### 2 4323-8 #### ALEKSANDR MEANS ([id number]) [facility] ([facility]) [address] [place] [address] HbA1c (Bld) [Mass fraction]o n 06-28-2024 Average glucose Estimated from glycated hemoglobin (Bld) [Mass/Vol] 171 mg/dL Normal Not Established [facility] Comment on above: Order Comment: Diagn osis of Diabetes-Adults Non-Diabetic: < or = 5.6% Increased risk for developing diabetes: 5.7-6.4% Diagnostic of diabetes: > or = 6.5% Performed By: #### 4 548-4 #### BATSHEVA Reyes ([id number]) [facility] ([place]) [address] [place] [address] Hemoglobin A1c/Hemoglobin.to sharla 06-28-2024 HbA1c (Bld) [Mass fraction] 7.6 % High See comment [facility] Comment on above: Order Comment: Diagn osis of Diabetes-Adults Non-Diabetic: < or = 5.6% Increased risk for developing diabetes: 5.7-6.4% Diagnostic of diabetes: > or = 6.5% Performed By: #### 4 548-4 #### BATSHEVA Reyes ([id number]) [facility] ([place]) [address] [place], [place] [id number] TSH WITH REFLEX TO FREE T4 I F ABNORMALon 06-28-2024 TSH Qn 1.87 m[IU]/L Normal 0.44-3.98 [facility] Comment on above: Order Comment: TSH t esting is performed using different testing methodology at [facility] than at other [facility]. Direct result comparisons should only be made within the same method. Performed By: #### T URIEL #### ALEKSANDR MEANS ([id number]) [facility] ([facility]) [address] [place] [address] Bacteria identifiedon 2024 Bacteria identified Cx Nom (U) Test: Urine Culture Specimen Source: Clean Catch/Voided Specimen Type: Urine Specimen Date: 06/11/2024 153 Result Date: 06/15/2024 135 Result Status: Final result Abnormal: Yes Resulting Lab: [facility] [address] [place] [address] CULTURE >=100,000 CFU/mL Escherichia coli (Abnormal) SUSCEPTIBILITY Escherichia coli METHOD MICROSCAN ----- AMPICILLIN <=8.000 ug/ml Susceptible CEFAZOLIN <=2 ug/ml Susceptible CEFAZOLIN (UNCOMPLICATED UTIS ONLY) <=2 ug/ml Susceptible CIPROFLOXACIN <=0.250 ug/ml Susceptible GENTAMICIN <=2.000 ug/ml Susceptible NITROFURANTOIN <=32 ug/ml Susceptible PIPERACILLIN/TAZOBACT AM <=8.000 ug/ml Susceptible TRIMETHOPRIM/SULFAMET HOXAZOLE <=2/38 ug/ml Susceptible Abnormal [facility] Comment on above: Performed By: #### 6 30-4 ###SERGE Reyes ([id number])[facility] ([place])[address] [place] [address] Urinalysis microscopic panel Auto Ql (U)on 06-11-2024 Bacteria Auto (Urine sed) [#/Area] 1+ /HPF Abnormal NONE SEEN [facility] Comment on above: Performed By: #### 5 3315-8 ####ALEKSANDR MEANS ([id number])[facility] ([facility])[address] [place] [address] Epithelial cells.squamous Auto (Urine sed) [#/Area] 1-9 (SPARSE) Normal Reference range not established. [facility] Comment on above: Performed By: #### 5 3315-8 ####ALEKSANDR MEANS ([id number])[facility] ([facility])[address] [place] [address] Mucus Auto (Urine sed) [#/Area] FEW Normal Reference range not established. [facility] Comment on above: Performed By: #### 5 3315-8 ####ALEKSANDR MEANS ([id number])[facility] ([facility])[address] [place] [address] RBC Auto (Urine sed) [#/Area] 1-2 Normal NONE, 1-2, 3-5 [facility] Comment on above: Performed By: #### 5 3315-8 ####ALEKSANDR MEANS ([id number])[facility] ([facility])[address] [place] [address] WBC Auto (Urine sed) [#/Area] 1-5 Normal 1-5, NONE [facility] Comment on above: Performed By: #### 5 3315-8 ####ALEKSANDR MEANS ([id number])[facility] ([facility])[address] [place] [address] Comprehensive metabolic 2000 panelon 03-12-2024 Albumin BCP dye [Mass/Vol] 4.3 g/dL Normal 3.4-5.0 [facility] Comment on above: Performed By: #### 2 432-8 #### ALEKSANDR MEANS ([id number]) [facility] ([facility]) [address] [place], [place] [address] ALP [Catalytic activity/Vol] 78 U/L Normal 33-136 [facility] Comment on above: Performed By: #### 2 4323-8 #### ALEKSANDR MEANS ([id number]) [facility] ([facility]) [address] [place] [address] ALT With P-5'-P [Catalytic activity/Vol] 17 U/L Normal 7-45 [facility] Comment on above: Result Comment: Haylee ents treated with Sulfasalazine may generate falsely decreased results for ALT. Performed By: #### 2 4323-8 #### ALEKSANDR MEANS ([id number]) [facility] ([facility]) [address] [place] [address] Anion gap [Moles/Vol] 14 mmol/L Normal 10-20 [facility] Comment on above: Performed By: #### 2 432-8 #### ALEKSANDR MEANS ([id number]) [facility] ([facility]) [address] [place] [address] AST With P-5'-P [Catalytic activity/Vol] 18 U/L Normal 9-39 [facility] Comment on above: Performed By: #### 2 432-8 #### ALEKSANDR MEANS ([id number]) [facility] ([facility]) [address] [place] [address] Bilirubin [Mass/Vol] 0.3 mg/dL Normal 0.0-1.2 [facility] Comment on above: Performed By: #### 2 4323-8 #### ALEKSANDR MEANS ([id number]) [facility] ([facility]) [address] [place] [address] Calcium [Mass/Vol] 9.9 mg/dL Normal 8.6-10.3 [facility] Comment on above: Performed By: #### 2 4323-8 #### ALEKSANDR MEANS ([id number]) [facility] ([facility]) [address] [place] [address] Chloride [Moles/Vol] 102 mmol/L Normal 98-107 [facility] Comment on above: Performed By: #### 2 4323-8 #### ALEKSANDR MEANS ([id number]) [facility] ([facility]) [address] [place] [address] CO2 [Moles/Vol] 30 mmol/L Normal 21-[address] [facility] Comment on above: Performed By: #### 2 4323-8 #### ALEKSANDR MEANS ([id number]) [facility] ([facility]) [facility] [place] [address] Creatinine [Mass/Vol] 0.94 mg/dL Normal 0.50-1.05 [facility] Comment on above: Performed By: #### 2 4323-8 #### ALEKSANDR MEANS ([id number]) [facility] ([facility]) [address] [place] [address] Glomerular filtration rate/1.73 sq M.predicted 68 mL/min/1.73m*2 Normal >60 [facility] Comment on above: Result Comment: Calc ulations of estimated GFR are performed using the 2020 CKD-EPI Study Refit equation without the race variable for the IDMS-Traceable creatinine methods. https://jasn.asnjournals.org/content/early//ASN.66696 29013 Performed By: #### 2 4323-8 #### ALEKSANDR MEANS ([id number]) [facility] ([facility]) [address] [place] [address] Glucose [Mass/Vol] 181 mg/dL High 74-99 [facility] Comment on above: Performed By: #### 2 4323-8 #### ALEKSANDR MEANS ([id number]) [facility] ([facility]) [address] [place] [address] Potassium [Moles/Vol] 4.6 mmol/L Normal 3.5-5.3 [facility] Comment on above: Performed By: #### 2 4323-8 #### ALEKSANDR MEANS ([id number]) [facility] ([facility]) [address] [place] [address] Protein [Mass/Vol] 7.3 g/dL Normal 6.4-8.2 [facility] Comment on above: Performed By: #### 2 4323-8 #### ALEKSANDR MEANS ([id number]) [facility] ([facility]) [address] [place] [address] Sodium [Moles/Vol] 141 mmol/L Normal 136-145 [facility] Comment on above: Performed By: #### 2 4323-8 #### ALEKSANDR MEANS ([id number]) [facility] ([facility]) [address] [place] [address] Urea nitrogen [Mass/Vol] 29 mg/dL High 6-23 [facility] Comment on above: Performed By: #### 2 4323-8 #### ALEKSANDR MEANS ([id number]) [facility] ([facility]) [address] [place] [address] HbA1c (Bld) [Mass fraction]o n 03-12-2024 Average glucose Estimated from glycated hemoglobin (Bld) [Mass/Vol] 177 mg/dL Normal Not Established [facility] Comment on above: Order Comment: Diagn osis of Diabetes-Adults Non-Diabetic: < or = 5.6% Increased risk for developing diabetes: 5.7-6.4% Diagnostic of diabetes: > or = 6.5% Performed By: #### 4 548-4 #### BATSHEVA Reyes ([id number]) [facility] ([place]) [address] [place], [place] [id number] Hemoglobin A1c/Hemoglobin.to sharla 03-12-2024 HbA1c (Bld) [Mass fraction] 7.8 % High See comment [facility] Comment on above: Order Comment: Diagn osis of Diabetes-Adults Non-Diabetic: < or = 5.6% Increased risk for developing diabetes: 5.7-6.4% Diagnostic of diabetes: > or = 6.5% Performed By: #### 4 548-4 #### BATSHEVA Reyes ([id number]) [facility] ([place]) [address] [place] [address] TSH WITH REFLEX TO FREE T4 I F ABNORMALon 03-12-2024 TSH Qn 3.58 m[IU]/L Normal 0.44-3.98 [facility] Comment on above: Order Comment: TSH t esting is performed using different testing methodology at [facility] than at other [facility]. Direct result comparisons should only be made within the same method. Performed By: #### T HYDS #### ALEKSANDR MEANS ([id number]) [facility] ([facility]) [address] [place] [address] XR WRIST LEFT 2 VIEWSon 08- XR WRIST LEFT 2 VIEWS EXAMINATION: XR [...] on FriFeb 03, 2024 2:11:30 PM EDT [facility] Comment on above: Order Comment: Injur y/Trauma or Illness?:Injury/TraumaHow long have you had these symptoms (acute/chronic)?:AcuteReason for exam?:Left wrist painHistory of cancer?:uSurgeries, chemotherapy, or radiation?:uType of Exam?:InitialMechanism of injury?:Fall ECG 12 LeadOrdered By: Roseanne Shell on 01-30-2024 Atrial Rate 89 BPM [facility] Work Phone: P Dougherty 42 degrees [facility] Work Phone: P Offset 170 ms [facility] Work Phone: P Onset 127 ms [facility] Work Phone: SC Interval 174 ms [facility] Work Phone: Q Onset 214 ms [facility] Work Phone: QRS Count 14 beats [facility] Work Phone: QRS Duration 82 ms [facility] Work Phone: QT Interval 388 ms [facility] Work Phone: QTC Calculation(Bazett) 472 ms [facility] Work Phone: QTC Fredericia 442 ms [facility] Work Phone: R Dougherty 26 degrees [facility] Work Phone: T Dougherty 67 degrees [facility] Work Phone: T Offset 408 ms [facility] Work Phone: Ventricular Rate 89 BPM [facility] Work Phone: [facility] Work Phone: ECG 12 Leadon 01-30-2024 Normal sinus rhythm Normal ECG No previous ECGs available See ED provider note for full interpretation and clinical correlation Confirmed by Roseanne Shell ([id number]) on 01/30/2024 9:08:44 PM MUSE Roseanne Shell PA-C - 01/30/2024 Normal sinus rhythm Normal ECG No previous ECGs available See ED provider note for full interpretation and clinical correlation Confirmed by Roseanne Shell ([id number]) on 01/30/2024 9:08:44 PM [facility] Work Phone: ECG 12-LEADon 01-29-2024 ECG 12-LEAD Ventricular Rate 89 Atrial Rate 89 P-R Interval 174 QRS Duration 82 Q-T Interval 388 QTC Calculation(Bazett) 472 P Dougherty 42 R Dougherty 26 T Dougherty 67 QRS Count 14 Q Onset 214 P Onset 127 P Offset 170 T Offset 408 QTC Fredericia 442 Diagnosis Normal sinus rhythm Normal ECG No previous ECGs available See ED provider note for full interpretation and clinical correlation Confirmed by Roseanne Shell ([id number]) on 01/30/2024 9:08:44 PM Normal [facility] No Panel Informationon 01-28 Radiology Study observation (narrative) [facility] Work Phone: XR FOREARM RIGHT 2 VIEWSon 0 01-29-2024 XR FOREARM RIGHT 2 VIEWS Interpreted By: Pito Kaur, STUDY: XR FOREARM RIGHT 2 VIEWS; ; 01/29/2024 7:57 am INDICATION: Signs/Symptoms:FALL TRAUMA. COMPARISON: November 2023 ACCESSION NUMBER(S): [id number] ORDERING CLINICIAN: CHRISTIANO TRUJILLO FINDINGS: No fractures are identified. On the lateral view there is again mild dorsal subluxation of the distal ulna in relation to the distal radius, similar to prior exam. The soft tissues are unremarkable. IMPRESSION: No acute fracture. Persistent dorsal subluxation of the distal ulna in relation to the distal radius; correlate clinically. Signed by: Pito Kaur 01/29/2024 8:33 AM Dictation workstation: [id number] [facility] XR KNEE RIGHT 1-2 VIEWSon XR KNEE RIGHT 1-2 VIEWS Interpreted By: Pito Kaur, STUDY: XR KNEE RIGHT 1-2 VIEWS; ; 01/29/2024 7:57 am INDICATION: Signs/Symptoms:FALL/T RAUMA. COMPARISON: None. ACCESSION NUMBER(S): [id number] ORDERING CLINICIAN: CHRISTIANO TRUJILLO FINDINGS: No fractures or destructive lesions are identified. The joint spaces and articular surfaces are maintained. The alignment is anatomic. The soft tissues are unremarkable. IMPRESSION: Normal right knee radiographs. Signed by: Pito Kaur 01/29/2024 8:37 AM Dictation workstation: [id number] [facility] XR Knee - right 1 or 2 Views on 01-29-2024 Normal right knee radiographs. Signed by: Pito Kaur 01/29/2024 8:37 AM Dictation workstation: [id number] [facility] Interpreted By: Pito Kaur, STUDY: XR KNEE RIGHT 1-2 VIEWS; ; 01/29/2024 7:57 am INDICATION: Signs/Symptoms:FALL/T RAUMA. COMPARISON: None. ACCESSION NUMBER(S): [id number] ORDERING CLINICIAN: CHRISTIANO TRUJILLO FINDINGS: No fractures or destructive lesions are identified. The joint spaces and articular surfaces are maintained. The alignment is anatomic. The soft tissues are unremarkable. [facility] Pito Kaur MD - 01/29/2024 Interpreted By: Pito Kaur, STUDY: XR KNEE RIGHT 1-2 VIEWS; ; 01/29/2024 7:57 am INDICATION: Signs/Symptoms:FALL/T RAUMA. COMPARISON: None. ACCESSION NUMBER(S): [id number] ORDERING CLINICIAN: CHRISTIANO TRUJILLO FINDINGS: No fractures or destructive lesions are identified. The joint spaces and articular surfaces are maintained. The alignment is anatomic. The soft tissues are unremarkable. IMPRESSION: Normal right knee radiographs. Signed by: Pito Kaur 01/29/2024 8:37 AM Dictation workstation: [id number] [facility] Work Phone: XR Knee - right 1 or 2 Views Ordered By: Pito Kaur on 01-29-2024 [facility] Work Phone: XR Radius and Ulna - right 2 Viewson 01-29-2024 No acute fracture. Persistent dorsal subluxation of the distal ulna in relation to the distal radius; correlate clinically. Signed by: Pito Kaur 01/29/2024 8:33 AM Dictation workstation: [id number] [facility] Interpreted By: Pito Kaur, STUDY: XR FOREARM RIGHT 2 VIEWS; ; 01/29/2024 7:57 am INDICATION: Signs/Symptoms:FALL TRAUMA. COMPARISON: November 2023 ACCESSION NUMBER(S): [id number] ORDERING CLINICIAN: CHRISTIANO TRUJILLO FINDINGS: No fractures are identified. On the lateral view there is again mild dorsal subluxation of the distal ulna in relation to the distal radius, similar to prior exam. The soft tissues are unremarkable. [facility] Pito Kaur MD - 01/29/2024 Interpreted By: Pito Kaur STUDY: XR FOREARM RIGHT 2 VIEWS; ; 01/29/2024 7:57 am INDICATION: Signs/Symptoms:FALL TRAUMA. COMPARISON: November 2023 ACCESSION NUMBER(S): [id number] ORDERING CLINICIAN: CHRISTIANO TRUJILLO FINDINGS: No fractures are identified. On the lateral view there is again mild dorsal subluxation of the distal ulna in relation to the distal radius, similar to prior exam. The soft tissues are unremarkable. IMPRESSION: No acute fracture. Persistent dorsal subluxation of the distal ulna in relation to the distal radius; correlate clinically. Signed by: Pito Kaur 01/29/2024 8:33 AM Dictation workstation: [id number] [facility] Work Phone: [facility] Work Phone: CT HEAD OR BRAIN [...] Matter: No acute cortical infarct. There is dnuk-km-tamoshdz chronic low attenuation in the white matter [...] cells and middle ear cavities are clear. ____ IMPRESSION: 1. Interval resolution of a small right anterior temporal subarachnoid hemorrhage seen previously. 2. There is no intracranial hemorrhage or mass lesion. 3. 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 4. Mild right pre frontal and supraorbital soft tissue swelling is improved. Workstation ID: [id number] Dictated by: JEFF MILLER on FriJan 07, 2024 12:05:25 PM EDT Transcribed by: JEFF MILLER on FriJan 07, 2024 12:05:25 PM EDT Finalized by: JEFF MILLER on FriJan 07, 2024 12:05:25 PM EDT Normal [facility] Comment on above: Order Comment: [...] PM EDT Finalized by: AZAEL ANDRADE on FriDec 25, 2023 3:39:07 PM EDT [facility] Comment on above: Order Comment: Injur y/Trauma or Illness?:Illness/Other How long have you had these symptoms (acute/chronic)?:Acute Reason for exam?:pain History of cancer?:u Surgeries, chemotherapy, or radiation?:u Type of Exam?:Subsequent/Follow-up Additional signs and symptoms?:. BASIC METABOLIC PANELon 11-08 Anion gap [Moles/Vol] 15 mmol/L Normal 10-20 [facility] Comment on above: Order Comment: [facility] has implemented the eGFR calculation approach that does not have a coefficient for race that conforms to the NKF-ASN Task Force Recommendations. Performed By: #### 4 6932 #### LAB [address] [address] David Mcclain M.D. [id number] Calcium [Mass/Vol] 9.0 mg/dL Normal 8.4-10.2 [facility] Comment on above: Order Comment: [facility] has implemented the eGFR calculation approach that does not have a coefficient for race that conforms to the NKF-ASN Task Force Recommendations. Performed By: #### 4 6932 #### LAB [address] [address] David Mcclain M.D. [id number] Chloride [Moles/Vol] 105 mmol/L Normal 98-108 [facility] Comment on above: Order Comment: [facility] has implemented the eGFR calculation approach that does not have a coefficient for race that conforms to the NKF-ASN Task Force Recommendations. Performed By: #### 4 6932 #### LAB [address] [address] David Mcclain M.D. [id number] Creatinine [Mass/Vol] 0.85 mg/dL Normal 0.60-1.10 [facility] Comment on above: Order Comment: [facility] has implemented the eGFR calculation approach that does not have a coefficient for race that conforms to the NKF-ASN Task Force Recommendations. Performed By: #### 4 6932 #### LAB [address] [address] David Mcclain M.D. [id number] EGFR 77 mL/min/1.73 m2 Normal >=60 [facility] Comment on above: Order Comment: [facility] has implemented the eGFR calculation approach that does not have a coefficient for race that conforms to the NKF-ASN Task Force Recommendations. Result Comment: Velasquez mated GFR was calculated using the 2020 CKD-EPI creatinine equation. Performed By: #### 4 6928 #### LAB [address] [address] David Mcclain M.D. [id number] Glucose [Mass/Vol] 168 mg/dL High 65-99 [facility] Comment on above: Order Comment: [facility] has implemented the eGFR calculation approach that does not have a coefficient for race that conforms to the NKF-ASN Task Force Recommendations. Performed By: #### 4 6932 #### LAB [address] [address] David Mcclain M.D. [id number] HCO3 (Bld) [Moles/Vol] 25 mmol/L Normal 21-32 [facility] Comment on above: Order Comment: [facility] has implemented the eGFR calculation approach that does not have a coefficient for race that conforms to the NKF-ASN Task Force Recommendations. Performed By: #### 4 6932 #### LAB [address] [address] David Mcclain M.D. [id number] Potassium [Moles/Vol] 4.2 mmol/L Normal 3.5-5.1 [facility] Comment on above: Order Comment: [facility] has implemented the eGFR calculation approach that does not have a coefficient for race that conforms to the NKF-ASN Task Force Recommendations. Performed By: #### 4 6942 #### LAB [address] [address] David Mcclain M.D. [id number] Sodium [Moles/Vol] 141 mmol/L Normal 135-145 [facility] Comment on above: Order Comment: [facility] has implemented the eGFR calculation approach that does not have a coefficient for race that conforms to the NKF-ASN Task Force Recommendations. Performed By: #### 4 6916 #### LAB [address] [id number] David Mcclain M.D. [id number] Urea nitrogen [Mass/Vol] 22 mg/dL Normal 8-25 [facility] Comment on above: Order Comment: [facility] has implemented the eGFR calculation approach that does not have a coefficient for race that conforms to the NKF-ASN Task Force Recommendations. Performed By: #### 4 6963 #### LAB [address] [address] David Mcclain M.D. [id number] Urea nitrogen/Creatinine [Mass ratio] 25.9 mg/mg High 10.0-20.0 [facility] Comment on above: Order Comment: [facility] has implemented the eGFR calculation approach that does not have a coefficient for race that conforms to the NKF-ASN Task Force Recommendations. Performed By: #### 4 6918 #### LAB [address] [address] David Mcclain M.D. [id number] CBCon 12-05-2023 AUTO NRBC 0.0 % Normal [facility] Comment on above: Performed By: #### 4 6927 #### LAB [address] [address] David Mcclain M.D. [id number] AUTO NRBC ABS COUNT 0.00 K/mcL Normal 0.00-0.00 [facility] Comment on above: Performed By: #### 4 6977 #### LAB [address] [address] David Mcclain M.D. [id number] Erythrocyte distribution width (RBC) [Ratio] 14.8 % Normal 11.6-14.8 [facility] Comment on above: Performed By: #### 4 6905 #### LAB [address] [address] David Mcclain M.D. [id number] Hematocrit (Bld) [Volume fraction] 34.8 % Low 36.0-46.0 [facility] Comment on above: Performed By: #### 4 6941 #### LAB [address] [address] David Mcclain M.D. [id number] Hemoglobin (Bld) [Mass/Vol] 10.7 g/dL Low 12.0-16.0 [facility] Comment on above: Performed By: #### 4 6965 #### LAB [address] [address] David Mcclain M.D. [id number] MCH (RBC) [Entitic mass] 27.0 pg Normal 26.0-34.0 [facility] Comment on above: Performed By: #### 4 6961 #### LAB [address] [address] David Mcclain M.D. [id number] MCV (RBC) [Entitic vol] 87.9 fL Normal 80.0-100.0 [facility] Comment on above: Performed By: #### 4 6962 #### LAB [address] [address] David Mcclain M.D. [id number] MEAN CORPUSCULAR HEMOGLOBIN CONC 30.7 g/dL Low 31.0-37.0 [facility] Comment on above: Performed By: #### 4 6929 #### LAB [address] [address] David Mcclain M.D. [id number] Platelet mean volume (Bld) [Entitic vol] 9.3 fL Low 9.4-12.4 [facility] Comment on above: Performed By: #### 4 6930 #### LAB [address] [address] David Mcclain M.D. [id number] Platelets (Bld) [#/Vol] 312 10*3/uL Normal 150-400 [facility] Comment on above: Performed By: #### 4 0503 #### LAB [address] [address] David Mcclain M.D. [id number] RBC (Bld) [#/Vol] 3.96 10*6/uL Low 4.00-5.20 [facility] Comment on above: Performed By: #### 4 8781 #### LAB [address] [address] David Mcclain M.D. [id number] WBC (Bld) [#/Vol] 7.23 10*3/uL Normal 4.50-11.00 [facility] Comment on above: Performed By: #### 4 6932 #### LAB [address] [place], [place] [address] David Mcclain M.D. [id number] CONSULTon 12-05-2023 CONSULT Orthopedic consult Chief complaint [...] BY SACHIN MORALES, ON 12/05/2023 10:14:[address] [facility] CT HEAD OR BRAIN WITHOUT CON TRASTon 12-05-2023 CT HEAD OR BRAIN WITHOUT CONTRAST EXAMINATION: CT HEAD OR BRAIN WITHOUT CONTRAST12/05/2023 7:16 am TECHNIQUE: Routine protocol multiplanar reformatted axial CT acquisition At least one of the following dose reduction techniques was utilized: Iterative reconstruction, and/or Automatic Exposure Control, and/or mA/kV adjustment based on body size. INDICATION: [facility] [phone] Renu Santos, Director for residential provider *[phone] Stephanie Mata, life skills coordinator at the home Injury/Trauma or Illness?:Illness/Othe r How long have you had these symptoms (acute/chronic)?:Acut e Reason for exam?:sah f/u I62.9 Intracranial bleed (HCC) COMPARISON: 12/04/[address] FINDINGS: Stable focal anterior right temporal lobe subarachnoid/cortical hyperdensity. Moderate generalized cerebral cortical volume loss, and discordance crowding the subarachnoid spaces at the vertex relative to moderate 3rd and lateral ventricular enlargement by. Bjkh-uj-ebecdxqj frontoparietal predominant burn a confluent periventricular and patchy deep white matter hypodensity bilaterally. Brain and CSF spaces are not otherwise remarkable. OTHER: Right supraorbital soft tissue swelling IMPRESSION: Stable posttraumatic focal anterior right temporal subarachnoid/cortical hyperdense blood product Mild to moderate probable chronic microvascular ischemic change and/or NPH related periventricular edema. Workstation ID: [id number] Dictated by: ARIANNA HERNANDEZ on FriDec 05, 2023 12:13:06 PM EDT Transcribed by: ARIANNA HERNANDEZ on FriDec 05, 2023 12:13:06 PM EDT Finalized by: ARIANNA HERNANDEZ on FriDec 05, 2023 12:13:[address] [facility] Comment on above: Order Comment: Injur y/Trauma or Illness?:Illness/OtherHow long have you had these symptoms (acute/chronic)?:AcuteReason for exam?:sah f/uType of Exam?:Subsequent/Follow-upAdditional signs and symptoms?:n/a POC GLUCOSE - [facility] 024 Glucose [Mass/Vol] 167 mg/dL High 65-99 [facility] Glucose [Mass/Vol] 156 mg/dL High 65-99 [facility] Glucose [Mass/Vol] 160 mg/dL High 65-99 [facility] ALCOHOL, MEDICALon ALCOHOL MEDICAL < Normal <10.0 [facility] Comment on above: Result Comment: Alco hol cutoff: <10.00 mg/dL = None Detected Performed By: #### 4 5033 ####[facility] [address] [place], [place] [address] David Mcclain M.D. [id number] Basic metabolic 2000 panelon 12-04-2023 Anion gap [Moles/Vol] 11 mmol/L 10 - 2 0 mmol/L [facility] Calcium [Mass/Vol] 9.7 mg/dL 8.6 - 10. 3 mg/dL [facility] Chloride [Moles/Vol] 103 mmol/L 98 - 10 7 mmol/L [facility] CO2 [Moles/Vol] 30 mmol/L 21 - 32 mmol/L [facility] Creatinine [Mass/Vol] 0.85 mg/dL 0.50 - 1.05 mg/dL [facility] GFR/1.73 sq M.predicted among non-blacks MDRD (S/P/Bld) [Vol rate/Area] 77 mL/min/{1.73_m2} - PINF [facility] Comment on above: Calculations of velasquez mated GFR are performed using the 2020 CKD-EPI Study Refit equation without the race variable for the IDMS-Traceable creatinine methods. https://jasn.asnjournals.org/content/early/ASN.63173 53086 Glucose [Mass/Vol] 145 mg/dL High 74 - 99 mg/dL [facility] Interpretation and review of laboratory results Abnormal [facility] Potassium [Moles/Vol] 4.2 mmol/L 3.5 - 5.3 mmol/L [facility] Sodium [Moles/Vol] 140 mmol/L 136 - 145 mmol/L [facility] Urea nitrogen [Mass/Vol] 29 mg/dL High 6 - 23 mg/dL [facility] Anion gap [Moles/Vol] 11 mmol/L Normal 10-20 [facility] Comment on above: Performed By: #### 2 4321-2 ####ALEKSANDR MEANS ([id number])[facility] ([facility] [place] [address] Calcium [Mass/Vol] 9.7 mg/dL Normal 8.6-10.3 [facility] Comment on above: Performed By: #### 2 4321-2 ####ALEKSANDR MEANS ([id number])[facility] ([facility])[address] [place] [address] Chloride [Moles/Vol] 103 mmol/L Normal 98-107 [facility] Comment on above: Performed By: #### 2 4321-2 ####ALEKSANDR MEANS ([id number])[facility] ([facility])[address] [place] [address] CO2 [Moles/Vol] 30 mmol/L Normal 21-32 [facility] Comment on above: Performed By: #### 2 4321-2 ####ALEKSANDR MEANS ([id number])[facility] ([facility])[address] [place] [address] Creatinine [Mass/Vol] 0.85 mg/dL Normal 0.50-1.05 [facility] Comment on above: Performed By: #### 2 4321-2 ####ALEKSANDR MEANS ([id number])[facility] ([facility])[address] [place] [address] Glomerular filtration rate/1.73 sq M.predicted 77 mL/min/1.73m*2 Normal >60 [facility] Comment on above: Result Comment: Calc ulations of estimated GFR are performed using the 2020 CKD-EPI Study Refit equation without the race variable for the IDMS-Traceable creatinine methods. https://jasn.asnjournals.org/content/early/ASN.57628 09078 Performed By: #### 2 4321-2 ####ALEKSANDR MEANS ([id number])[facility] ([facility])[address] [place] [address] Glucose [Mass/Vol] 145 mg/dL High 74-99 [facility] Comment on above: Performed By: #### 2 4321-2 ####ALEKSANDR MEANS ([id number])[facility] ([facility])[address] [place] [address] Potassium [Moles/Vol] 4.2 mmol/L Normal 3.5-5.3 [facility] Comment on above: Performed By: #### 2 4321-2 ####ALEKSANDR MEANS ([id number])[facility] ([facility])[address] [place] [address] Sodium [Moles/Vol] 140 mmol/L Normal 136-145 [facility] Comment on above: Performed By: #### 2 4321-2 ####ALEKSANDR MEANS ([id number])[facility] ([facility])[address] [place] [address] Urea nitrogen [Mass/Vol] 29 mg/dL High 6-23 [facility] Comment on above: Performed By: #### 2 4321-2 ####BRANDON CLARY ([id number])[facility] ([facility])[address] [place] [address] CBC W Auto Differential pane l (Bld)on 12-04-2023 Basophils (Bld) [#/Vol] 0.03 10*3/uL [facility] Basophils/100 WBC (Bld) 0.3 % 0.0 - 2.0 % [facility] Eosinophils (Bld) [#/Vol] 0.26 10*3/uL [facility] Eosinophils/100 WBC (Bld) 2.5 % 0.0 - 6.0 % [facility] Erythrocyte distribution width (RBC) [Ratio] 14.6 % High 11.5 - 14.5 % [facility] Hematocrit (Bld) [Volume fraction] 40.2 % 36.0 - 46.0 % [facility] Hemoglobin (Bld) [Mass/Vol] 12.0 g/dL 12.0 - 16.0 g/dL [facility] Immature granulocytes (Bld) [#/Vol] 0.06 10*3/uL [facility] Immature granulocytes/100 WBC (Bld) 0.6 % 0.0 - 0.9 % [facility] Comment on above: Immature Granulocyte Count (IG) includes promyelocytes, myelocytes and metamyelocytes but does not include bands. Percent differential counts (%) should be interpreted in the context of the absolute cell counts (cells/UL). Interpretation and review of laboratory results Abnormal [facility] Lymphocytes (Bld) [#/Vol] 0.95 10*3/uL Low [facility] Lymphocytes/100 WBC (Bld) 9.2 % 13.0 - 44.0 % [facility] MCH (RBC) [Entitic mass] 27.3 pg 26.0 - 34.0 pg [facility] MCHC (RBC) [Mass/Vol] 29.9 g/dL Low 32.0 - 36.0 g/dL [facility] MCV (RBC) [Entitic vol] 91 fL 80 - 100 fL [facility] Monocytes (Bld) [#/Vol] 0.53 10*3/uL [facility] Monocytes/100 WBC (Bld) 5.1 % 2.0 - 10.0 % [facility] Neutrophils (Bld) [#/Vol] 8.51 10*3/uL High [facility] Comment on above: Percent differential counts (%) should be interpreted in the context of the absolute cell counts (cells/uL). Neutrophils/100 WBC (Bld) 82.3 % 40.0 - 80.0 % [facility] Nucleated RBC/100 WBC (Bld) [Ratio] 0.0 % [facility] Platelets (Bld) [#/Vol] 355 10*3/uL [facility] RBC (Bld) [#/Vol] 4.40 10*6/uL [facility] WBC (Bld) [#/Vol] 10.3 10*3/uL [facility] Basophils (Bld) [#/Vol] 0.03 x10*3/uL Normal 0.00-0.10 [facility] Comment on above: Performed By: #### 5 7021-8 #### ALEKSANDR MEANS ([id number]) [facility] ([facility]) [address] [place] [address] Basophils/100 WBC (Bld) 0.3 % Normal 0.0-2.0 [facility] Comment on above: Performed By: #### 5 7021-8 #### ALEKSANDR MEANS ([id number]) [facility] ([facility]) [address] [place] [address] Eosinophils (Bld) [#/Vol] 0.26 x10*3/uL Normal 0.00-0.70 [facility] Comment on above: Performed By: #### 5 7021-8 #### ALEKSANDR MEANS ([id number]) [facility] ([facility]) [address] [place] [address] Eosinophils/100 WBC (Bld) 2.5 % Normal 0.0-6.0 [facility] Comment on above: Performed By: #### 5 7021-8 #### ALEKSANDR MEANS ([id number]) [facility] ([facility]) [address] [place] [address] Erythrocyte distribution width (RBC) [Ratio] 14.6 % High 11.5-14.5 [facility] Comment on above: Performed By: #### 5 7021-8 #### LAEKSANDR MEANS ([id number]) [facility] ([facility]) [address] [place] [address] Hematocrit (Bld) [Volume fraction] 40.2 % Normal 36.0-46.0 [facility] Comment on above: Performed By: #### 5 7021-8 #### ALEKSANDR MEANS ([id number]) [facility] ([facility]) [address] [place] [address] Hemoglobin (Bld) [Mass/Vol] 12.0 g/dL Normal 12.0-16.0 [facility] Comment on above: Performed By: #### 5 7021-8 #### ALEKSANDR MEANS ([id number]) [facility] ([facility]) [address] [place], [place] [address] Immature granulocytes (Bld) [#/Vol] 0.06 x10*3/uL Normal 0.00-0.70 [facility] Comment on above: Performed By: #### 5 7021-8 #### ALEKSANDR MEANS ([id number]) [facility] ([facility]) [address] [place], [place] [address] Immature granulocytes/100 WBC (Bld) 0.6 % Normal 0.0-0.9 [facility] [facility] Comment on above: Result Comment: Reina ture Granulocyte Count (IG) includes promyelocytes, myelocytes and metamyelocytes but does not include bands. Percent differential counts (%) should be interpreted in the context of the absolute cell counts (cells/UL). Performed By: #### 5 7021-8 #### ALEKSANDR MEANS ([id number]) [facility] ([facility]) [address] [place] [address] Lymphocytes (Bld) [#/Vol] 0.95 x10*3/uL Low 1.20-4.80 [facility] Comment on above: Performed By: #### 5 7021-8 #### ALEKSANDR MEANS ([id number]) [facility] ([facility]) [address] [place] [address] Lymphocytes/100 WBC (Bld) 9.2 % Normal 13.0-44.0 [facility] Comment on above: Performed By: #### 5 7021-8 #### ALEKSANDR MEANS ([id number]) [facility] ([facility]) [address] [place] [address]58[address] MCH (RBC) [Entitic mass] 27.3 pg Normal 26.0-34.0 [facility] Comment on above: Performed By: #### 5 7021-8 #### ALEKSANDR MEANS ([id number]) [facility] ([facility]) [address] [place] [address] 50547 MCHC (RBC) [Mass/Vol] 29.9 g/dL Low 32.0-36.0 [facility] Comment on above: Performed By: #### 5 7021-8 #### ALEKSANDR MEANS ([id number]) [facility] ([facility]) [address] [place] [address]2561 MCV (RBC) [Entitic vol] 91 fL Normal 80-100 [facility] Comment on above: Performed By: #### 5 7021-8 #### ALEKSANDR MEANS ([id number]) [facility] ([facility]) [address] [place] [address]01 Monocytes (Bld) [#/Vol] 0.53 x10*3/uL Normal 0.10-1.00 [facility] Comment on above: Performed By: #### 5 7021-8 #### ALEKSANDR MEANS ([id number]) [facility] ([facility]) [address] [place] [address] 75983 Monocytes/100 WBC (Bld) 5.1 % Normal 2.0-10.0 [facility] Comment on above: Performed By: #### 5 7021-8 #### ALEKSANDR MEANS ([id number]) [facility] ([facility]) [address] [place] [address]796 Neutrophils (Bld) [#/Vol] 8.51 x10*3/uL High 1.20-7.70 [facility] Comment on above: Result Comment: Perc ent differential counts (%) should be interpreted in the context of the absolute cell counts (cells/uL). Performed By: #### 5 7021-8 #### ALEKSANDR MEANS ([id number]) [facility] ([facility]) [address] [place] [address] 12546 Neutrophils/100 WBC (Bld) 82.3 % Normal 40.0-80.0 [facility] Comment on above: Performed By: #### 5 7021-8 #### ALEKSANDR MEANS ([id number]) [facility] ([facility]) [address] [place] [address] 77884 Nucleated RBC/100 WBC (Bld) [Ratio] 0.0 /100 WBCs Normal 0.0-0.0 [facility] Comment on above: Performed By: #### 5 7021-8 #### ALEKSANDR MEANS ([id number]) [facility] ([facility]) [address] [place] [address] 91420 Platelets (Bld) [#/Vol] 355 x10*3/uL Normal 150-450 [facility] Comment on above: Performed By: #### 5 7021-8 #### ALEKSANDR MEANS ([id number]) [facility] ([facility]) [address] [place] [address] 55912 RBC (Bld) [#/Vol] 4.40 x10*6/uL Normal 4.00-5.20 [facility] Comment on above: Performed By: #### 5 7021-8 #### ALEKSANDR MEANS ([id number]) [facility] ([facility]) [address] [place] [address] 16282 WBC (Bld) [#/Vol] 10.3 x10*3/uL Normal 4.4-11.3 [facility] Comment on above: Performed By: #### 5 7021-8 #### BRANDON CLARY ([id number]) [facility] ([facility]) [address] [place] [address] CONSULTon 12-04-2023 CONSULT Neurosurgery Consult Carlos Benavidez MD Patient: Shaji Esquivel Date of : 1960 (63 y.o.) Referring Provider: Trauma service PCP: Antwan Maharaj MD SUBJECTIVE: Chief Complaint: Status post fall with small right anterior temporal subarachnoid hemorrhage/contusion History of Present Illness (HPI): Patient is a 63-year-old lady with history of schizophrenia, Parkinson's disease, significant intellectual impairment who lives at a long term under the guardianship of the [facility]. History was obtained from her caregiver Padmini Gilman LPN. Camelia states she had a [...] as well as place which is her long term. She is able to ambulate on her [...] surgeries. Social History: She lives in a long term for the last several years. No history [...] reviewed. Some small right anterior temporal lobe contusion/subarachnoi d hemorrhages noted. No other intracranial abnormality. CT of the cervical spine does not show any fractures either. ASSESSMENT & PLAN: 63-year-old lady with schizophrenia, Parkinson's disease and significant intellectual impairment status post a fall with a small right anterior temporal contusion/subarachnoi d hemorrhage. No need for any surgical intervention. Recommend a follow-up CT in the morning. If stable she can be released back to the home with activities as tolerated. Padmini Kalina ESQUIVEL was informed of the findings as well as the treatment plan. All of her questions answered. AUTHENTICATED BY CARLOS BENAVIDEZ, ON 12/04/2023 17:21:[address] [facility] CT 3D RECONSTRUCTIONon 12-03 CT 3D RECONSTRUCTION Interpreted By: Shayna Cole, STUDY: CT FACIAL BONES WO IV CONTRAST; CT 3D RECONSTRUCTION 12/04/2023 9:56 am; 12/04/2023 10:08 am INDICATION: Signs/Symptoms:Fall with injury to her face; Signs/Symptoms:trauma COMPARISON: 10/07/2022 ACCESSION NUMBER(S): [id number]; [id number] ORDERING CLINICIAN: JASMYN WADE TECHNIQUE: Thin cut [...] Shayna Cole 12/04/2023 10:40 AM Dictation workstation: [id number] [facility] CT CERVICAL SPINE WO IV CONT [facility] 12-04-2023 CT CERVICAL SPINE WO IV CONTRAST Interpreted By: Shayna Cole, STUDY: CT CERVICAL SPINE WO IV CONTRAST; 12/04/2023 9:56 am INDICATION: Signs/Symptoms:Fall with injury to neck. COMPARISON: 07/19/2023 ACCESSION NUMBER(S): [id number] ORDERING CLINICIAN: JASMYN WADE TECHNIQUE: CT images [...] Shayna Cole 12/04/2023 10:36 AM Dictation workstation: [id number] [facility] CT CHEST ABDOMEN PELVIS WITH OUT [...] FriDec 04, 2023 2:15:[address] [facility] Comment on above: Order Comment: Injur [...] Shayna Cole 12/04/2023 10:36 AM Dictation workstation: [id number] [facility] Interpreted By: Yohann, Shayna, STUDY: CT CERVICAL SPINE WO IV CONTRAST; 12/04/2023 9:56 am INDICATION: Signs/Symptoms:Fall with injury to neck. COMPARISON: 07/19/2023 ACCESSION NUMBER(S): [id number] ORDERING CLINICIAN: JASMYN WADE TECHNIQUE: CT images [...] injury to neck. COMPARISON: 07/19/2023 ACCESSION NUMBER(S): [id number] ORDERING CLINICIAN: JASMYN WADE TECHNIQUE: CT images [...] Shayna Cole 12/04/2023 10:36 AM Dictation workstation: [id number] [facility] Work Phone: [facility] Work Phone: CT FACIAL BONES WO IV CONTRA STon 12-04-2023 CT FACIAL BONES WO IV CONTRAST Interpreted By: Shayna Cole, STUDY: CT FACIAL BONES WO IV CONTRAST; CT 3D RECONSTRUCTION 12/04/2023 9:56 am; 12/04/2023 10:08 am INDICATION: Signs/Symptoms:Fall with injury to her face; Signs/Symptoms:trauma COMPARISON: 10/07/2022 ACCESSION NUMBER(S): [id number]; [id number] ORDERING CLINICIAN: JASMYN WADE TECHNIQUE: Thin cut [...] Shayna Cole 12/04/2023 10:40 AM Dictation workstation: [id number] [facility] CT HEAD WO IV CONTRASTon CT HEAD WO IV CONTRAST Interpreted By: Shayna Cole, STUDY: CT HEAD WO IV CONTRAST; 12/04/2023 9:56 am INDICATION: Signs/Symptoms:Fall with head injury. COMPARISON: 07/19/2023 ACCESSION NUMBER(S): [id number] ORDERING CLINICIAN: JASMYN WADE TECHNIQUE: Unenhanced CT [...] Shayna Cole 12/04/2023 10:30 AM Dictation workstation: [id number] [facility] CT Head WO contraston 2023 6 [...] Shayna Cole 12/04/2023 10:30 AM Dictation workstation: [id number] [facility] Interpreted By: Shayna Cole, STUDY: CT HEAD WO IV CONTRAST; 12/04/2023 9:56 am INDICATION: Signs/Symptoms:Fall with head injury. COMPARISON: 07/19/2023 ACCESSION NUMBER(S): [id number] ORDERING CLINICIAN: JASMYN WADE TECHNIQUE: Unenhanced CT [...] region The visualized paranasal sinuses are clear. [facility] Shayna Cole MD - 12/04/2023 Interpreted By: Shayna Cole, STUDY: CT HEAD WO IV CONTRAST; 12/04/2023 9:56 am INDICATION: Signs/Symptoms:Fall with head injury. COMPARISON: 07/19/2023 ACCESSION NUMBER(S): [id number] ORDERING CLINICIAN: JASMYN WADE TECHNIQUE: Unenhanced CT [...] Shayna Cole 12/04/2023 10:30 AM Dictation workstation: [id number] [facility] Work Phone: [facility] Work Phone: CT Unspecified body region 3 D post processingon 12-04-2023 Radiology Study observation (narrative) [facility] Work Phone: CT WRIST RIGHT WITHOUT [...] FriDec 04, 2023 8:07:[address] [facility] Comment on above: Order Comment: Injur y/Trauma or Illness?:Injury/TraumaHow long have you had these symptoms (acute/chronic)?:AcuteReason for exam?:right wrist pain with injury s/p fall. ulnocarpal dislocation noted on wrist x-rayType of Exam?:InitialMechanism of injury?:fall Coagulation surface inducedo n 12-04-2023 aPTT Coag (PPP) [Time] 28 s Normal 27-38 [facility] Comment on above: Order Comment: The A PTT is no longer used for monitoring Unfractionated Heparin Therapy. For monitoring Heparin Therapy, use the Heparin Assay. Performed By: #### 1 4979-9 ####BRANDON CLARY ([id number])[facility] ([facility] [place] [address] Coagulation tissue factor in ducedon 12-04-2023 PT Coag (PPP) [Time] 10.6 s Normal 9.8-12.8 [facility] Comment on above: Performed By: #### 5 902-2 #### BRANDON CLARY ([id number]) [facility] ([facility]) [address] [place] [address] ED Prov Noteon 12-04-2023 ED Prov Note [facility] EMERGENCY DEPARTMENT - Emergency Medicine Attending Note: NAME: Shaji Esquivel 63 y.o. CSN: [id number] PCP: Antwan Maharaj MD History: Chief Complaint: [...] (Results Pending) Procedures: Critical Care Performed by: Jona Jaramillo MD Authorized by: Jona Jaramillo MD Total critical care time: 35 [...] emergency d (more content not included)... Normal [facility] H AND Samuel 12-04-2023 H AND P - Attestation signed by Jayashree Estevez MD at 12/04/2023 2:30 PM (Updated) TRAUMA/ ACUTE CARE SURGERY ATTENDING NOTE Please link this note as an addendum to the PATTY note with the same day of service. The patient was seen and examined by me, the attending trauma surgeon, on multidisciplinary rounds on the date of service listed above. I have reviewed the PATTY note, labs, studies, and plan consultant notes. I have reviewed and agree [...] denies spinal TTP. Imaging obtained at the [facility] with the above findings. On physical [...] Surgery, Surgical Critical Care, and Neurocritical Care [facility] SURGICAL HISTORY & PHYSICAL/CONSULTATION NOTE Trauma: Admitted with these risk variables: Fall, [...] falling on concrete. She presented to an H for initial evaluation where CT max/face, brain, [...] Used Sub (more content not included)... Normal [facility] No Panel Informationon 12-03 Interpretation and review of laboratory results Normal [facility] Dorsal dislocation a t the ulnocarpal joint versus projection. No fracture identified. MACRO: None. Signed by: Shayna Cole 12/04/2023 10:45 AM Dictation workstation: [id number] [facility] Interpreted By: Shayna Cole, STUDY: XR FOREARM RIGHT 2 VIEWS; XR WRIST RIGHT 3+ VIEWS; 12/04/2023 9:40 am INDICATION: Signs/Symptoms:Fall with injury. COMPARISON: Forearm films 08/10/2021 ACCESSION NUMBER(S): [id number]; [id number] ORDERING CLINICIAN: JASMYN WADE FINDINGS: 2 portable [...] and ulna likely in overlying soft tissues. MMODAL Shayna Cole MD - 12/04/2023 Interpreted By: Shayna Cole, STUDY: XR FOREARM RIGHT 2 VIEWS; XR WRIST RIGHT 3+ VIEWS; 12/04/2023 9:40 am INDICATION: Signs/Symptoms:Fall with injury. COMPARISON: Forearm films 08/10/2021 ACCESSION NUMBER(S): [id number]; [id number] ORDERING CLINICIAN: JASMYN WADE FINDINGS: 2 portable [...] Shayna Cole 12/04/2023 10:45 AM Dictation workstation: [id number] [facility] Work Phone: Hematoma in the righ t frontal scalp/supraorbital region. No acute displaced facial bone fracture visualized. Mild right maxillary and bilateral sphenoid sinus mucosal thickening/debris. MACRO: None. Signed by: Shayna Cole 12/04/2023 10:40 AM Dictation workstation: [id number] [facility] Interpreted By: Shayna Cole, STUDY: CT FACIAL BONES WO IV CONTRAST; CT 3D RECONSTRUCTION 12/04/2023 9:56 am; 12/04/2023 10:08 am INDICATION: Signs/Symptoms:Fall with injury to her face; Signs/Symptoms:trauma COMPARISON: 10/07/2022 ACCESSION NUMBER(S): [id number]; [id number] ORDERING CLINICIAN: JASMYN WADE TECHNIQUE: Thin cut [...] her face; Signs/Symptoms:trauma COMPARISON: 10/07/2022 ACCESSION NUMBER(S): [id number]; [id number] ORDERING CLINICIAN: JASMYN WADE TECHNIQUE: Thin cut [...] Shayna Cole 12/04/2023 10:40 AM Dictation workstation: [id number] [facility] Work Phone: [facility] Work Phone: Radiology Study observation (narrative) [facility] Work Phone: Radiology Study observation (narrative) [facility] Work Phone: No Panel InformationOrdered By: Shayan Cole on 12-04-2023 [facility] Work Phone: POC GLUCOSE - Ramiro 024 Glucose [Mass/Vol] 135 mg/dL High 65-99 [facility] Glucose [Mass/Vol] 94 mg/dL Normal 65-99 [facility] PT Coag (PPP) [Time]on 12-03 INR Coag (PPP) [Relative time] 0.9 {INR} 0.9 - 1.1 [facility] INR Coag (PPP) [Relative time] 0.9 Normal 0.9-1.1 [facility] Comment on above: Performed By: #### 5 902-2 #### BRANDON CLARY ([id number]) [facility] ([facility]) [address] [place] [address] Protime-INRon 12-04-2023 PT Coag (PPP) [Time] 10.6 s [facility] XR FOREARM RIGHT 2 VIEWSon 0 12-04-2023 XR FOREARM RIGHT 2 VIEWS Interpreted By: Shayna Cole, STUDY: XR FOREARM RIGHT 2 VIEWS; XR WRIST RIGHT 3+ VIEWS; 12/04/2023 9:40 am INDICATION: Signs/Symptoms:Fall with injury. COMPARISON: Forearm films 08/10/2021 ACCESSION NUMBER(S): [id number]; [id number] ORDERING CLINICIAN: JASMYN WADE FINDINGS: 2 portable [...] Shayna Cole 12/04/2023 10:45 AM Dictation workstation: [id number] [facility] XR KNEE RIGHT 2 VIEWS (STAND [...] on FriDec 04, 2023 2:24:[address] [facility] Comment on above: Order Comment: Injur [...] PM EDT Finalized by: LETI GEIGER on Antonia Dec 04, 2023 4:26:36 PM EDT [facility] Comment on above: Order Comment: Injur [...] injury. COMPARISON: Forearm films 08/10/2021 ACCESSION NUMBER(S): [id number]; [id number] ORDERING CLINICIAN: JASMYN WADE FINDINGS: 2 portable [...] Shayna Cole 12/04/2023 10:45 AM Dictation workstation: [id number] [facility] 12-04-2023 aPTT Coag (PPP) [Time] 28 s Un [facility] aPTT Coag (PPP) [Time]on The APTT is no longe r used for monitoring Unfractionated Heparin Therapy. For monitoring Heparin Therapy, use the Heparin Assay. [facility] CT [facility] CERVICAL SPINE WO IV CONTRAST Interpreted By: Serena Mcghee, STUDY: CT HEAD WO IV CONTRAST; CT CERVICAL SPINE WO IV CONTRAST; 07/19/2023 8:43 pm INDICATION: Signs/Symptoms:Fall. COMPARISON: CT head dated 11/06/2022; CT of the cervical spine dated 11/06/2022. ACCESSION NUMBER(S): [id number]; [id number] ORDERING CLINICIAN: GEORGI VERGARA TECHNIQUE: Noncontrast axial CT scan of [...] Serena Mcghee 07/19/2023 9:01 PM Dictation workstation: [id number] [facility] CT HEAD WO IV CONTRASTon CT HEAD WO IV CONTRAST Interpreted By: Serena Mcghee, STUDY: CT HEAD WO IV CONTRAST; CT CERVICAL SPINE WO IV CONTRAST; 07/19/2023 8:43 pm INDICATION: Signs/Symptoms:Fall. COMPARISON: CT head dated 11/06/2022; CT of the cervical spine dated 11/06/2022. ACCESSION NUMBER(S): [id number]; [id number] ORDERING CLINICIAN: GEORGI VERGARA TECHNIQUE: Noncontrast axial CT scan of [...] Serena Mcghee 07/19/2023 9:01 PM Dictation workstation: [id number] [facility] MG Breast - bilateral Screen ingon 07-11-2023 No mammographic evidence of malignancy. BI-RADS CATEGORY: BI-RADS Category: 1 Negative. Recommendation: Routine Screening Mammogram in 1 Year. Recommended Date: 1 Year. Laterality: Bilateral. Signed by: Bala Zheng 07/11/2023 8:26 AM Dictation workstation: [id number] [facility] Interpreted By: Bala Zheng, STUDY: ; 07/10/2023 10:08 am ACCESSION NUMBER(S): [id number] ORDERING CLINICIAN: RAFA JACINTO INDICATION: Screening. COMPARISON: [...] change. This study was interpreted with CAD. Bala Renteria MD - 07/11/2023 Interpreted By: Bala Zheng, STUDY: ; 07/10/2023 10:08 am ACCESSION NUMBER(S): [id number] ORDERING CLINICIAN: RAFA JACINTO INDICATION: Screening. COMPARISON: [...] Bala Zheng 07/11/2023 8:26 AM Dictation workstation: [id number] [facility] Work Phone: MG Breast - bilateral Screen ingOrdered By: Bala Zheng on 07-11-2023 [facility] Work Phone: MG Breast - bilateral Screen ingon 07-10-2023 Radiology Study observation (narrative) [facility] Work Phone: PT Progress Noteon 3 [...] BLE., goal partially met Planned interventions include: education/instruction , gait training, home program, manual therapy, neuromuscular [...] Adult Risk Screening There are no spiritual/cultural practices/values/need s that are important to know Initial Fall [...] code time is 23 minutes. Therapeutic exercise (12683): timed minutes 23, units 2 . Recheck, review HEP, review POC Step ups 4 fwd/ x5 ea Step taps 4 x10 ea Standing hip abd x10 ea Standing hip flex x10 ea Side steps 0UE 15 ft x3 laps March amb 0UE 15 ft x2 laps NOT [...] Feb 04 2023 9:58AM EST (Author) Normal [employer] Therapy Re-eval Noteon 02-04 Therapy Re-eval Note [...] BLE., goal partially met Planned interventions include: education/instruction , gait training, home program, manual therapy, neuromuscular [...] Adult Risk Screening There are no spiritual/cultural practices/values/need s that are important to know Initial Fall [...] 9 Insurance: Evaluating therapist: Bibi Villela PT, ALIYA [...] code time is 23 minutes. Therapeutic exercise (51293): timed minutes 23, units 2 . Recheck, [...] Feb 04 2023 9:58AM EST (Author) Normal [employer] PT Progress Noteon 3 PT Progress Note [...] BLE., goal partially met Planned interventions include: education/instruction , gait training, home program, manual therapy, neuromuscular [...] Adult Risk Screening There are no spiritual/cultural practices/values/need s that are important to know Initial Fall [...] code time is 38 minutes. Therapeutic exercise (67099): timed minutes 38, units 3 . Step [...] Jan 29 2023 10:00AM EST (Author) Normal [employer] PT Progress Noteon 3 PT Progress Note [...] BLE., goal partially met Planned interventions include: education/instruction , gait training, home program, manual therapy, neuromuscular [...] Adult Risk Screening There are no spiritual/cultural practices/values/need s that are important to know Initial Fall [...] 7 Insurance: Evaluating therapist: Bibi Villela PT, DPT [...] code time is 38 minutes. Therapeutic exercise (58530): timed minutes 38, units 3 . SEE [...] cone taps fwd x8 ea. Neuromuscular Re-education (12564):. Hand taps all directions x2' ea LE [...] Jan 21 2023 9:39AM EST (Author) Normal [employer] PT Progress Noteon 3 PT Progress Note [...] BLE., goal partially met Planned interventions include: education/instruction , gait training, home program, manual therapy, neuromuscular [...] outside // bars to further challenge balance. 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 Improved compliance with w/c mobilization activities. Reason For Visit Initial Evaluation . Dx: R29.6. Referred by: CarolA nn Adult Risk Screening There are no spiritual/cultural practices/values/need s that are important to know Initial Fall [...] 6 Insurance: Evaluating therapist: Bibi Villela PT, DPT [...] code time is 38 minutes. Therapeutic exercise (19622): timed minutes 38, units 3 . SEE [...] taps fwd x8 ea (N). Neuromuscular Re-education (01871):. Hand taps all directions x2' ea LE [...] Jan 14 2023 2:47PM EST (Author) Normal [employer] PT Progress Noteon 3 PT Progress Note [...] BLE., goal partially met Planned interventions include: education/instruction , gait training, home program, manual therapy, neuromuscular [...] Adult Risk Screening There are no spiritual/cultural practices/values/need s that are important to know Initial Fall [...] code time is 38 minutes. Therapeutic exercise (59596): timed minutes 30, units 2 . SEE [...] with ball x10 ea L. Neuromuscular Re-education (66325): timed minutes 8, units 1 . Hand taps all directions x2' e (more content not included)... Normal [facility] [employer] Therapy Re-eval Noteon 12-31 Therapy Re-eval Note [...] BLE., goal partially met Planned interventions include: education/instruction , gait training, home program, manual therapy, neuromuscular [...] Adult Risk Screening There are no spiritual/cultural practices/values/need s that are important to know Initial Fall [...] code time is 38 minutes. Therapeutic exercise (04474): timed minutes 30, units 2 . SEE [...] with ball x10 ea L. Neuromuscular Re-education (67682): timed minutes 8, units 1 (more content [...] ability to strengthen BLE. Planned interventions include: education/instruction , gait training, home program, manual therapy, neuromuscular [...] Adult Risk Screening There are no spiritual/cultural practices/values/need s that are important to know Initial Fall [...] code time is 30 minutes. Therapeutic exercise (87391): timed minutes 30, units 2 . [employer] [...] Dec 24 2022 12:17PM EST (Author) Normal [employer] PT Progress Noteon 3 PT Progress Note [...] ability to strengthen BLE. Planned interventions include: education/instruction , gait training, home program, manual therapy, neuromuscular [...] Adult Risk Screening There are no spiritual/cultural practices/values/need s that are important to know Initial Fall [...] 3 Insurance: Evaluating therapist: Bibi Villela PT, ALIYA [...] code time is 38 minutes. Therapeutic exercise (78710): timed minutes 38, units 3 . [employer] [...] Dec 19 2022 10:47AM EST (Author) Normal [employer] PT Progress Noteon PT Progress Note Therapy Diagnosis Assessed Frequent [...] ability to strengthen BLE. Planned interventions include: education/instruction , gait training, home program, manual therapy, neuromuscular [...] Adult Risk Screening There are no spiritual/cultural practices/values/need s that are important to know Initial Fall [...] code time is 38 minutes. Therapeutic exercise (91655): timed minutes 38, units 3 . [employer] 5' Standing hip abd x10 ea Standing hip flex x10 ea Stand HS curl x5 ea Side steps x2 laps March amb 2 laps Bkwd amb 2 laps Squat x8 Hand taps all directions x2' ea LE Cone reaches x2' Step ups Seated august x10 ea Seated hip add x10 Seated hip abd orange TB x10 Seated HS stretch with BLE on chair x2 min. Provided today: a personalized home program (Scanned) . 12/03/22 HEP HO given- seated hip abd. 'Scores and Scales' Signatures Electronically signed by : Bibi Villela, PT; Dec 03 2022 4:12PM EST (Author) Normal [facility] PT Initial Evaluationon 11-07 PT Initial Evaluation [...] ability to strengthen BLE. Planned interventions include: education/instruction , gait training, home program, manual therapy, neuromuscular [...] when considering positive factors including support in long term with barriers such as understanding of exercises. The pt verbalized understanding and agreement to goals and POC. Thank you for this referral and please call [phone] with any questions or concerns. Clinical Presentation: Stable and/or uncomplicated characteristics. Level of Complexity: low Problem List: activity limitations, ADLs/IADLs/self care skills, balance, decreased functional level, decreased knowledge of HEP, fall risk, flexibility, gait/locomotion, range of motion/joint mobility, strength and transfers. Reason For Visit Initial Evaluation . Dx: R29.6. Referred by: Carol Ann Adult Risk Screening There are no spiritual/cultural practices/values/need s that are important to know Initial Fall [...] 1 Insurance: Evaluating therapist: Bibi Villela PT, DPT [...] SHe uses w/c when out of the long term. Pt denies pain in LEs. Nurse, Anne, [...] Note-ED Post Discharge Result Follow Up: Atteon 11-11-2022 Clinical Event Note-ED Post Discharge Result [...] contact via or Sue Simons PharmD PGY-1 Medical Billing Representative [phone] Electronic Signatures: Sue Simons ([facility]) (Signed 11-Nov-2022 15:41) Authored: Clinical Event Note Ann Cardoza (PharmD) (Signed 12-Nov-2022 08:03) Co-Signer: Clinical Event Note Last Updated: 12-Nov-2022 08:03 by Ann Cardoza (PharmD) Normal [facility] CBC AND DIFFERENTIALon 11-06 % AUTOMATED IMMATURE GRAN 0.4 % Normal 0.0 - 0.9 [facility] Comment on above: Result Comment: Reina ture Granulocyte Count (IG) includes promyelocytes, myelocytes and metamyelocytes but does not include bands. Percent differential counts (%) should be interpreted in the context of the absolute cell counts (cells/L). Performed By: #### C BCDF #### [address] [address] Basophils (Bld) [#/Vol] 0.01 10*3/uL Normal 0.00 - 0.10 [facility] Comment on above: Performed By: #### C BCDF #### [address] [address] Basophils/100 WBC (Bld) 0.1 % Normal 0.0 - 2.0 [facility] Comment on above: Performed By: #### C BCDF #### [address] [address] Eosinophils (Bld) [#/Vol] 0.15 10*3/uL Normal 0.00 - 0.70 [facility] Comment on above: Performed By: #### C BCDF #### [address] [address] Eosinophils/100 WBC (Bld) 1.8 % Normal 0.0 - 6.0 [facility] Comment on above: Performed By: #### C BCDF #### [address] [address] Erythrocyte distribution width (RBC) [Ratio] 13.2 % Normal 11.5 - 14.5 [facility] Comment on above: Performed By: #### C BCDF #### [address] [address] Hematocrit (Bld) [Volume fraction] 39.3 % Normal 36.0 - 46.0 [facility] Comment on above: Performed By: #### C BCDF #### [address] [address] Hemoglobin (Bld) [Mass/Vol] 11.7 g/dL Low 12.0 - 16.0 [facility] Comment on above: Performed By: #### C BCDF #### [address] [address] Lymphocytes (Bld) [#/Vol] 0.30 10*3/uL Low 1.20 - 4.80 [facility] Comment on above: Performed By: #### C BCDF #### [address] [address] Lymphocytes/100 WBC (Bld) 3.6 % Normal 13.0 - 44.0 [facility] Comment on above: Performed By: #### C BCDF #### [address] [address] MCHC (RBC) [Mass/Vol] 29.8 g/dL Low 32.0 - 36.0 [facility] Comment on above: Performed By: #### C BCDF #### [address] [address] MCV (RBC) [Entitic vol] 94 fL Normal 80 - 100 [facility] Comment on above: Performed By: #### C BCDF #### [address] [address] Monocytes (Bld) [#/Vol] 0.19 10*3/uL Normal 0.10 - 1.00 [facility] Comment on above: Performed By: #### C BCDF #### [address] [address] Monocytes/100 WBC (Bld) 2.3 % Normal 2.0 - 10.0 [facility] Comment on above: Performed By: #### C BCDF #### [address] [address] Neutrophils (Bld) [#/Vol] 7.70 10*3/uL Normal 1.20 - 7.70 [facility] Comment on above: Result Comment: Perc ent differential counts (%) should be interpreted in the context of the absolute cell counts (cells/L). Performed By: #### C BCDF #### [address] [address] Neutrophils/100 WBC (Bld) 91.8 % Normal 40.0 - 80.0 [facility] Comment on above: Performed By: #### C BCDF #### [address] [address] Platelets (Bld) [#/Vol] 286 10*3/uL Normal 150 - 450 [facility] Comment on above: Performed By: #### C BCDF #### [address] [address] RBC 4.19 x10E12/L Normal 4.00 - 5.20 [facility] Comment on above: Performed By: #### C BCDF #### [address] [address] WBC (Bld) [#/Vol] 8.4 10*3/uL Normal 4.4 - 11.3 [facility] Comment on above: Performed By: #### C BCDF #### [address] [address] CHEST 1 VIEWon 11-06-2022 CHEST 1 VIEW Patient Name: SHAJI ESQUIVEL STUDY: CHEST 1 VIEW; 11/06/2022 9:49 am INDICATION: chest pain . COMPARISON: 05/25/2022 ACCESSION NUMBER(S): [id number] ORDERING CLINICIAN: ERICKSON HERNANDEZ FINDINGS: Artifact is present on the films. The heart is not enlarged. No infiltrate, pleural effusion or pneumothorax is seen. IMPRESSION: No active cardiopulmonary disease. Electronically signed by: SRINI PEÑA MD Normal [facility] COMPREHENSIVE PANELon 2022 Albumin [Mass/Vol] 4.3 g/dL Normal 3.4 - 5.0 [facility] Comment on above: Performed By: #### C MP #### [address] [address] ALP [Catalytic activity/Vol] 66 U/L Normal 33 - 136 [facility] Comment on above: Performed By: #### C MP #### [address] [address] ALT [Catalytic activity/Vol] 6 U/L Low 7 - 45 [facility] Comment on above: Result Comment: Haylee ents treated with Sulfasalazine may generate falsely decreased results for ALT. Performed By: #### C MP #### [address] [address] Anion gap [Moles/Vol] 13 mmol/L Normal 10 - 20 [facility] Comment on above: Performed By: #### C MP #### [address] [address] AST [Catalytic activity/Vol] 18 U/L Normal 9 - 39 [facility] Comment on above: Performed By: #### C MP #### [address] [address] Bilirubin [Mass/Vol] 0.4 mg/dL Normal 0.0 - 1.[address] [facility] Comment on above: Performed By: #### C MP #### [address] [address] Calcium [Mass/Vol] 9.6 mg/dL Normal 8.6 - 10.3 [facility] Comment on above: Performed By: #### C MP #### [address] [address] Chloride [Moles/Vol] 102 mmol/L Normal 98 - [address] [facility] Comment on above: Performed By: #### C MP #### [address] [address] Creatinine [Mass/Vol] 0.88 mg/dL Normal 0.50 - 1.05 [facility] Comment on above: Performed By: #### C MP #### [address] [address] GFR/1.73 sq M.predicted among non-blacks MDRD (S/P/Bld) [Vol rate/Area] 74 mL/min/{1.73_m2} Normal >90 [facility] Comment on above: Result Comment: CALC ULATIONS OF ESTIMATED GFR ARE PERFORMED USING THE 2020 CKD-EPI STUDY REFIT EQUATION WITHOUT THE RACE VARIABLE FOR THE IDMS-TRACEABLE CREATININE METHODS. https://jasn.asnjournals.org/content/early/ASN.47703 [address]104 Performed By: #### C MP #### [address] [address] Glucose [Mass/Vol] 160 mg/dL High 74 - 99 [facility] Comment on above: Performed By: #### C MP #### [address] [address] HCO3 (Bld) [Moles/Vol] 28 mmol/L Normal 21 - 32 [facility] Comment on above: Performed By: #### C MP #### [address] [address] Potassium [Moles/Vol] 4.1 mmol/L Normal 3.5 - 5.3 [facility] Comment on above: Performed By: #### C MP #### [address] [address] Protein [Mass/Vol] 7.6 g/dL Normal 6.4 - 8.2 [facility] Comment on above: Performed By: #### C MP #### [address] [address] Sodium [Moles/Vol] 139 mmol/L Normal 136 - 145 [facility] Comment on above: Performed By: #### C MP #### [address] [address] Urea nitrogen [Mass/Vol] 31 mg/dL High 6 - 23 [facility] Comment on above: Performed By: #### C MP #### [address] [address] [address] HEAD WO CONTRASTon 2022 CT HEAD WO CONTRAST Patient Name: SHAJI ESQUIVEL STUDY: CT HEAD WO CONTRAST; 11/06/2022 11:23 am INDICATION: weakness . COMPARISON: 10/07/2022 ACCESSION NUMBER(S): [id number] ORDERING CLINICIAN: ERICKSON HERNANDEZ TECHNIQUE: Noncontrast axial [...] Electronically signed by: KATIE HIDALGO MD Normal [facility] CT Head without Contraston 0 11-06-2022 CT Head limited WO contrast Normal [facility] Work Phone: CT Neck with Contraston - CT Neck W contrast IV Normal [facility] Work Phone: Complete Blood Count + Diffe rentialon 11-06-2022 Basophils/100 WBC (Bld) 0.1 % 0.0 - 2.[address] [facility] Work Phone: Erythrocyte distribution width (RBC) [Ratio] 13.2 % See Below [facility] Work Phone: Comment on above: Reference Range: 11. 5 - 14.5 Hematocrit (Bld) [Volume fraction] 39.3 % See Below [facility] Work Phone: Comment on above: Reference Range: 36. 0 - 46.0 Hemoglobin (Bld) [Mass/Vol] 11.7 g/dL below low threshold See Below [facility] Work Phone: Comment on above: Reference Range: 12. 0 - 16.0 Lymphocytes/100 WBC (Bld) 3.6 % See Below [facility] Work Phone: [phone] Comment on above: Reference Range: 13. 0 - 44.0 MCHC (RBC) [Mass/Vol] 29.8 g/dL below low threshold See Below [facility] Work Phone: [phone] Comment on above: Reference Range: 32. 0 - 36.0 MCV (RBC) [Entitic vol] 94 fL 80 - 100 [facility] Work Phone: [phone] Monocytes/100 WBC (Bld) 2.3 % 2.0 - 10.0 [facility] [place] Work Phone: [phone] Neutrophils/100 WBC (Bld) 91.8 % See Below [facility] Facility[facility]ona [place] Work Phone: [phone] Comment on above: Reference Range: 40. 0 - 80.0 Platelets (Bld) [#/Vol] 286 10*3/uL 150 - 450 [facility] [place] Work Phone: [phone] RBC (Bld) [#/Vol] 4.19 {x10E12/L} See Below [facility] Work Phone: [phone] Comment on above: Reference Range: 4.0 0 - 5.20 WBC (Bld) [#/Vol] 8.4 10*3/uL 4.4 - 11.3 [facility] [place] Work Phone: Complete Blood Count + Differential 0.01 {x10E9/L} See Below [facility] [place] Work Phone: [phone] Comment on above: Reference Range: 0.0 0 - 0.10 Complete Blood Count + Differential 0.15 {x10E9/L} See Below [facility] [place] Work Phone: [phone] Comment on above: Reference Range: 0.0 0 - 0.70 Complete Blood Count + Differential 0.19 {x10E9/L} See Below [facility] Work Phone: Comment on above: Reference Range: 0.1 0 - 1.00 Complete Blood Count + Differential 0.30 {x10E9/L} below low threshold See Below [facility] Work Phone: Comment on above: Reference Range: 1.2 0 - 4.80 Complete Blood Count + Differential 7.70 {x10E9/L} See Below [facility] Work Phone: Comment on above: Reference Range: 1.2 0 - 7.70 Percent differential counts (%) should be interpreted in the context of the absolute cell counts (cells/L). Complete Blood Count + Differential 1.8 % 0.0 - 6.0 [facility] Work Phone: Complete Blood Count + Differential 0.4 % 0.0 - 0.9 [facility] Work Phone: Comment on above: Immature Granulocyte Count (IG) includes promyelocytes, myelocytes and metamyelocytes but does not include bands. Percent differential counts (%) should be interpreted in the context of the absolute cell counts (cells/L). Cult, Urineon 11-06-2022 Bacteria identified Cx Nom (U) Abnormal [facility] Work Phone: Laboratory - Chemistry and C hemistry - challengeon 11-06-2022 Albumin BCP dye [Mass/Vol] 4.3 g/dL 3.4 - 5.0 [facility] Work Phone: ALP [Catalytic activity/Vol] 66 U/L 33 - 136 [facility] Work Phone: ALT With P-5'-P [Catalytic activity/Vol] 6 U/L below low threshold 7 - 45 [facility] Work Phone: Comment on above: Patients treated wit h Sulfasalazine may generate falsely decreased results for ALT. Anion gap [Moles/Vol] 13 mmol/L 10 - 20 [facility] [place] Work Phone: AST With P-5'-P [Catalytic activity/Vol] 18 U/L 9 - 39 [facility] [place] Work Phone: Bilirubin [Mass/Vol] 0.4 mg/dL 0.0 - 1.2 [facility] [place] Work Phone: Calcium [Mass/Vol] 9.6 mg/dL 8.6 - 10.3 [facility] [place] Work Phone: Chloride [Moles/Vol] 102 mmol/L 98 - 107 [facility] [place] Work Phone: [phone] CO2 [Moles/Vol] 28 mmol/L 21 - 32 [facility] [place] Work Phone: Creatinine [Mass/Vol] 0.88 mg/dL See Below [facility] [place] Work Phone: Comment on above: Reference Range: 0.5 0 - 1.05 Glucose [Mass/Vol] 160 mg/dL above high threshold 74 - 99 [facility] [place] Work Phone: Potassium [Moles/Vol] 4.1 mmol/L 3.5 - 5.3 [facility] [place] Work Phone: Protein [Mass/Vol] 7.6 g/dL 6.4 - 8.2 [facility] [place] Work Phone: Sodium [Moles/Vol] 139 mmol/L 136 - 145 [facility] [place] Work Phone: Urea nitrogen [Mass/Vol] 31 mg/dL above high threshold 6 - 23 [facility] Work Phone: NR CT NECK WITH CONTRASTon 0 11-06-[address] NECK WITH CONTRAST Patient Name: SHAJI ESQUIVEL STUDY: CT NECK WITH CONTRAST; 11/06/2022 11:23 am INDICATION: sore throat. . COMPARISON: 01/11/2017. ACCESSION NUMBER(S): [id number] ORDERING CLINICIAN: ERICKSON HERNANDEZ TECHNIQUE: Axial CT [...] region. Electronically signed by: DELLA NORMAN MD [facility] No Panel Informationon 11-06 74 {mL/min/1.73m2} >90 [facility] brendan [place] Work Phone: Comment on above: CALCULATIONS OF [place] MATED GFR ARE PERFORMED USING THE 2020 CKD-EPI STUDY REFIT EQUATION WITHOUT THE RACE VARIABLE FOR THE IDMS-TRACEABLE CREATININE METHODS.https://jasn.asnjournals.org/content//A SN.3077879486 Provider Note - ED v3on 10-09 Provider [...] to ED per AFD squad from [facility]. Staff reports that upon arrival to their facility today she seemed weaker than normal. She did have a fall at her long term yesterday and has bruises to her L [...] Hg): 87 11-06-2022 09:41 PAST MEDICAL HISTORY ALLERGIES/INTOLERANCE S: No Known Allergies HEALTH HISTORY: No documented [...] History Descrip (more content not included)... Normal [facility] Radiologyon 11-06-2022 XR Chest Single view [facility] [place] [place] Work Phone: Risk Screen - Adult Emergenc yon 11-06-2022 Risk Screen - Adult Emergency Preferred Language: Preferred Language: Preferred Language for Discussing Health Care (patient/designee)Dominick crain Patient Preferred Pharmacy: Patient Preferred Pharmacy Statement: [...] an injured patient at a Trauma Center ([facility]/[place]/[facility]/[place]): no Electronic Signatures: Saida Fairbanks (RN) (Signed 06-Nov-2022 10:09) Authored: Preferred Language, Patient Preferred Pharmacy, Advanced Directives, Family Violence Adult, Learning Assessment (Patient), Learning Assessment (Other Learner), Pressure Injury/TB/Substance, Pressure Injury, CAGE Last Updated: 06-Nov-2022 10:09 by Saida Fairbanks ([place]) Normal [facility] TROPONIN I, HIGH SENSITIVITY on 11-06-2022 TROPONIN I, HIGH SENSITIVITY 4 ng/L Normal 0 - 13 [facility] Comment on above: Result Comment: . [...] performed using a different testing methodology at [facility] than at other [facility]. Direct result comparisons should only be made within the same method. Performed By: #### U [facility] #### [facility] [address] [place] [address] TROPONIN I, HIGH SENSITIVITY 4 ng/L Normal 0 - 13 [facility] Comment on above: Result Comment: . [...] performed using a different testing methodology at [facility] than at other [facility]. Direct result comparisons should only be made within the same method. Performed By: #### T [facility] #### [place] [address] [place] [address] Tropinin I.cardiac panel High sensitivity method 4 ng/L 0 - 13 [facility] Work Phone: Comment on above: .Less than [...] performed using a different testing methodology at [facility] than at other [facility]. Direct result comparisons should only be made within the same method. Tropinin I.cardiac panel High sensitivity method 4 ng/L 0 - 13 [facility] Work Phone: Comment on above: .Less than [...] performed using a different testing methodology at [facility] than at other [facility]. Direct result comparisons should only be made within the same method. Triage - EDon 11-06-2022 Triage - ED Quick Triage: The patient and/or guardian verbally acknowledges placement for services into the following (when Urgent Care Service hours are operating):emergency department Chart Review: ARRIVAL INFORMATION Mode of Arrival: ambulance Agency: City Agency Name: [facility] CHIEF COMPLAINT SHAJI ESQUIVEL is a Female patient with a chief complaint of weakness (Brought to ED per AFD squad from [facility]. Staff reports that upon arrival to their facility today she seemed weaker than normal. She did have a fall at her long term yesterday and has bruises to her L [...] support. Weight: 130.0 pounds. Calculated 59.0 kg. [place] Coma Scale: Best Eye Response: (E4) spontaneous Best Motor Response: (M6) obeys commands Best Verbal Response: (V5) oriented Independence Score: 15 Cough lasting greater than 3 [...] 06-Nov-2022 09:52 by Jackie Bonilla ([place]) Normal [facility] UA MICROSCOPICon 11-06-2022 RBC 3 /HPF Normal 0-5 [facility] Comment on above: Performed By: #### U [facility] #### [facility] [address] [place] [address] SQUAMOUS EPITH. CELLS 1 /HPF Normal [facility] Comment on above: Performed By: #### U RINC #### [facility] [address] [place] [address] WBC 16 /HPF Abnormal 0-5 [facility] Comment on above: Performed By: #### U RINC #### [facility] [address] [place] [address] URINALYSIS WITH CULTURE IF I NDICATEDon 11-06-2022 Appearance (U) HAZY Normal CLEAR [facility] Comment on above: Performed By: #### U [facility] #### [address] [address] Bilirubin Ql (U) Negative Normal NEGATIVE [facility] Comment on above: Performed By: #### U AR[facility] #### [place] [id number] Color (U) Yellow Normal STRAW,YELLOW [facility] Comment on above: Performed By: #### U ARFX #### [address] [address] Glucose Ql (U) Negative Normal NEGATIVE [facility] Comment on above: Performed By: #### U ARFX #### [address] [address] Hemoglobin Ql (U) Negative Normal NEGATIVE [facility] Comment on above: Performed By: #### U ARFX #### [address] [address] Ketones Ql (U) Negative Normal NEGATIVE [facility] Comment on above: Performed By: #### U AR[facility] #### [address] [address] Leukocyte esterase Test strip Ql (U) TRACE Abnormal NEGATIVE [facility] Comment on above: Performed By: #### U AR[facility] #### [address] [address] Nitrite Ql (U) Positive Abnormal NEGATIVE [facility] Comment on above: Performed By: #### U ARFX #### [address] [address] pH (U) 7.0 [pH] Normal 5.0 - 8.0 [facility] Comment on above: Performed By: #### U [facility] #### [address] [address] Protein Ql (U) Negative Normal NEGATIVE [facility] Comment on above: Performed By: #### U [facility] #### [address] [address] Specific gravity (U) [Rel density] 1.036 High 1.005 - 1.035 [facility] Comment on above: Performed By: #### U AR[facility] #### [address] [address] Urobilinogen (U) [Mass/Vol] mg/dL Normal 0.0 - 1.9 [facility] Comment on above: Performed By: #### U ARFX #### [address] [address] Color (U) Yellow See Below [facility] Work Phone: [phone] Comment on above: Reference Range: STR AW,YELLOW Glucose Ql (U) Negative NEGATIVE [facility] Work Phone: [phone] Ketones Ql (U) Negative NEGATIVE [facility] Work Phone: [phone] Leukocyte esterase Test strip Ql (U) TRACE Abnormal NEGATIVE [facility] Work Phone: [phone] pH (U) 7.0 [pH] 5.0 - 8.0 [facility] Work Phone: [phone] Protein (U) [Mass/Vol] Negative NEGATIVE [facility] Work Phone: [phone] RBC (U) [#/Vol] Negative NEGATIVE [facility] Work Phone: [phone] Specific gravity (U) [Rel density] 1.036 1 above high threshold See Below [facility] Work Phone: [phone] Comment on above: Reference Range: 1.0 05 - 1.035 URINALYSIS WITH CULTURE IF INDICATED Positive Abnormal NEGATIVE [facility] Work Phone: [phone] URINALYSIS WITH CULTURE IF INDICATED <2.0 0.0 - 1.9 [facility] Work Phone: URINALYSIS WITH CULTURE IF INDICATED Negative NEGATIVE [facility] Work Phone: URINALYSIS WITH CULTURE IF INDICATED HAZY CLEAR [facility] Work Phone: URINE CULTURE,BACTERIALon URINE CULTURE,BACTERIAL PATIENT: SHAJI ESQUIVEL LOCATION: [facility] BILL#: [id number] : 60 AGE: SEX: F ORDERED BY: ERICKSON HERNANDEZ SOURCE: URINE COLLECTED: 11/06/22 12:46 ANTIBIOTICS AT [place].: RECEIVED : 11/07/22 01:51 SITE: [facility] U L T S URINE CULTURE,BACTERIAL FINAL 11/09/22 08:37 ISOLATE1 : Escherichia coli >100,000 CFU/ML __ Organism E coli Antibiotic BP INTRP __ Ampicillin S Ceftriaxone S Cefazolin S Ciprofloxacin S Nitrofurantoin S Gentamicin S Levofloxacin S Piperc/Tazobact S Trimeth/Sulfa S S=SUSCEPTIBLE I=INTERMEDIATE R=RESISTANT SDD=SUSCEPTIBLE DOSE DEPENDENT NS=NONSUSCEPTIBLE X=REPORTED IN ERROR Normal [facility] Comment on above: Performed By: #### U [facility] #### [facility] [address] [place] [address] Urinalysis, Microscopicon Urinalysis, Microscopic 1 {/HPF} [facility] ritan [place] Work Phone: [phone] Urinalysis, Microscopic 3 {/HPF} 0-5 [facility] ritsacha [place] Work Phone: [phone] Urinalysis, Microscopic 16 {/HPF} Abnormal 0-5 [facility] [place] Work Phone: [phone] CT C-SPINE WO CONTRASTon CT C-SPINE WO CONTRAST Patient Name: SHAJI ESQUIVEL STUDY: CT HEAD WO CONTRAST; CT FACIAL BONES; CT CORONAL/SAGITTAL/OBLI QUE RECON; CT C-SPINE WO CONTRAST; 10/07/2022 10:13 pm INDICATION: fall . COMPARISON: CT head and cervical spine 08/18/2022 ACCESSION NUMBER(S): [id number]; [id number]; [id number]; [id number] ORDERING CLINICIAN: GEORGI VERGARA TECHNIQUE: Axial noncontrast images of the [...] spine. Electronically signed by: RENA ABBOTT MD [facility] CT FACIAL BONES W/O CONTRAST on 10-08-2022 CT FACIAL BONES W/O CONTRAST Patient Name: SHAJI ESQUIVEL STUDY: CT HEAD WO CONTRAST; CT FACIAL BONES; CT CORONAL/SAGITTAL/OBLI QUE RECON; CT C-SPINE WO CONTRAST; 10/07/2022 10:13 pm INDICATION: fall . COMPARISON: CT head and cervical spine 08/18/2022 ACCESSION NUMBER(S): [id number]; [id number]; [id number]; [id number] ORDERING CLINICIAN: GEORGI VERGARA TECHNIQUE: Axial noncontrast images of the [...] spine. Electronically signed by: RENA ABBOTT MD [facility] CT HEAD WO CONTRASTon 2022 CT HEAD WO CONTRAST Patient Name: SHAJI ESQUIVEL STUDY: CT HEAD WO CONTRAST; CT FACIAL BONES; CT CORONAL/SAGITTAL/OBLI QUE RECON; CT C-SPINE WO CONTRAST; 10/07/2022 10:13 pm INDICATION: fall . COMPARISON: CT head and cervical spine 08/18/2022 ACCESSION NUMBER(S): [id number]; [id number]; [id number]; [id number] ORDERING CLINICIAN: GOERGI VERGARA TECHNIQUE: Axial noncontrast images of the [...] spine. Electronically signed by: RENA ABBOTT MD [facility] CT IMAGE RECONSTRUCTION 3D V OLUME and MIPon 10-08-2022 CT IMAGE RECONSTRUCTION 3D VOLUME and MIP Patient Name: SHAJI ESQUIVEL STUDY: CT HEAD WO CONTRAST; CT FACIAL BONES; CT CORONAL/SAGITTAL/OBLI QUE RECON; CT C-SPINE WO CONTRAST; 10/07/2022 10:13 pm INDICATION: fall . COMPARISON: CT head and cervical spine 08/18/2022 ACCESSION NUMBER(S): [id number]; [id number]; [id number]; [id number] ORDERING CLINICIAN: GEORGI VERGARA TECHNIQUE: Axial noncontrast images of the [...] spine. 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 ROS: All systems are negative [...] of fall (pt here via EMS from long term, pt was reaching over to pick something [...] Hg): 78 10-07-2022 20:58 PAST MEDICAL HISTORY ALLERGIES/INTOLERANCE S: No Known Allergies HEALTH HISTORY: No documented [...] SIGNIFICANT EVENTS: Immunizations Description:Tdap Past Medical History Description:parkinson s Description:Hypertens ion (HTN) Description:Schizophr enia Description:depressio n Description:Gastroeso phageal Reflux Disorder (GERD) Description:Anemia Description:Kidney disease Description:Diabetes- type 2 Description:Hypothyro id Description:moderate intellectual disabilities CRITICAL CARE RESULTS: Radiology Results: Impression: No acute intracranial abnormality. No acute facial bone fracture. Enlarged or recurrent right frontal scalp soft tissue hematoma. No acute fracture or traumatic subluxation of the cervical spine. CT C Spine without Contrast [October 07 (more content not included)... Normal [facility] Risk Screen - Adult Emergenc yon 10-07-2022 Risk Screen - Adult Emergency Preferred Language: Preferred Language: Preferred Language for Discussing Health Care (patient/designee)Dominick crain Patient Preferred Pharmacy: Patient Preferred Pharmacy Statement: [...] material; verbal instruction Cultural Considerationsnone Developmental Considerationsnone Scientologist Considerationsnone Learning Assessment (Other Learner): Learning Assessment (Other Learner): Other learner availableno Pressure Injury/TB/Substance: Pressure Injury: Do you have a coughno Smoking Statusnever smoker Admission Risk Screen: Significant IndicatorsComplete CAGE: CAGE: Is this an injured patient at a Trauma Center ([facility]/[place]/[facility]/[place]): no Electronic Signatures: Lakshmi Aguayo ([place]) (Signed 07-Oct-2022 21:02) Authored: Preferred Language, Patient Preferred Pharmacy, Advanced Directives, Family Violence Adult, Learning Assessment (Patient), Learning Assessment (Other Learner), Pressure Injury/TB/Substance, Pressure Injury, CAGE Last Updated: 07-Oct-2022 21:02 by Lakshmi Aguayo ([place]) [facility] Triage - EDon 10-07-2022 Triage - ED Chart Review: ARRIVAL INFORMATION Mode of Arrival: ambulance Agency Name: [place] CHIEF COMPLAINT SHAJI ESQUIVEL is a Female patient with a chief complaint of fall (pt here via EMS from long term, pt was reaching over to pick something [...] 96% on room air, no respiratory support. Independence Coma Scale: Best Eye Response: (E4) spontaneous Best Motor Response: (M6) obeys commands Best Verbal Response: (V5) oriented Independence Score: 15 Patient has homicidal thoughts: no [...] Medical History Reviewedyes Electronic Signatures: Lakshmi Aguayo ([place]) (Signed 07-Oct-2022 21:24) Authored: Quick Triage, Risk Screens, Pain, Travel History, Chart Review, Scores, Past Medical History Last Updated: 07-Oct-2022 21:24 by Lakshmi Aguayo) [facility] Clinical Event Note-ED Post Discharge Result Follow Up: [place] 08-22-2022 Clinical Event Note-ED Post Discharge Result [...] these results and how to follow up. [address] [place] [address] Dr. Burnett, [facility] Would recommend DC Keflex and start Bactrim. If there are any other questions for the ED Post-Discharge Culture Follow Up Team, please contact [phone]. . Ann Cardoza PharmD, [facility] Clinical Pharmacist - Culture Callback Pharmacist [facility] Electronic Signatures: Ann Cardoza (PharmD) (Signed 22-Aug-2022 09:09) Authored: Clinical Event Note Last Updated: 22-Aug-2022 09:09 by Ann Cardoza (PharmD) [facility] Clinical Event Note-ED Post Discharge Result Follow [...] room. The patient was discharged back their long term. The Culture Callback Team will turn over [...] Post-Discharge Culture Follow Up Team, please contact [phone]. . Ramón Kimble PharmD PGY1 Medical Billing Representative Culture Callback Pharmacist [facility] Electronic Signatures: Ramón Kimble ([facility]) (Signed 22-Aug-2022 09:48) Authored: Clinical Event Note Ann CardozaPharmD) (Signed 23-Aug-2022 08:16) Co-Signer: Clinical Event Note Last Updated: 23-Aug-2022 08:16 by Ann Cardoza (PharmD) [facility] Clinical Event Note-ED Post Discharge Result [...] Post-Discharge Culture Follow Up Team, please contact [phone]. . Angeles Rai PharmD [facility] PGY1 Medical Billing Representative Electronic Signatures: Angeles Rai ([facility]) (Signed 21-Aug-2022 14:15) Authored: Clinical Event Note Ann CardozaPharmAmeena) (Signed 22-Aug-2022 08:22) Co-Signer: Clinical Event Note Last Updated: 22-Aug-2022 08:22 by Ann Cardoza (PharmD) Normal [facility] BASIC METABOLIC PANELon - Anion gap [Moles/Vol] 14 mmol/L Normal 10 - 20 [facility] Comment on above: Performed By: #### B MP #### [address] [address] Calcium [Mass/Vol] 9.0 mg/dL Normal 8.6 - 10.3 [facility] Comment on above: Performed By: #### B MP #### [address] [address] Chloride [Moles/Vol] 110 mmol/L High 98 - [address] [facility] Comment on above: Performed By: #### B MP #### [address] [address] Creatinine [Mass/Vol] 0.78 mg/dL Normal 0.50 - 1.05 [facility] Comment on above: Performed By: #### B MP #### [address] [address] GFR/1.73 sq M.predicted among non-blacks MDRD (S/P/Bld) [Vol rate/Area] 86 mL/min/{1.73_m2} Normal >90 [facility] Comment on above: Result Comment: CALC ULATIONS OF ESTIMATED GFR ARE PERFORMED USING THE 2020 CKD-EPI STUDY REFIT EQUATION WITHOUT THE RACE VARIABLE FOR THE IDMS-TRACEABLE CREATININE METHODS. https://jasn.asnjournals.org/content//ASN.81761 98537 Performed By: #### B MP #### [address] [address] Glucose [Mass/Vol] 117 mg/dL High 74 - 99 [facility] Comment on above: Performed By: #### B MP #### [address] [address] HCO3 (Bld) [Moles/Vol] 25 mmol/L Normal 21 - 32 [facility] Comment on above: Performed By: #### B MP #### [address] [address] Potassium [Moles/Vol] 3.9 mmol/L Normal 3.5 - 5.3 [facility] Comment on above: Performed By: #### B MP #### [address] [address] Sodium [Moles/Vol] 145 mmol/L Normal 136 - 145 [facility] Comment on above: Performed By: #### B MP #### [address] [address] Urea nitrogen [Mass/Vol] 29 mg/dL High 6 - 23 [facility] Comment on above: Performed By: #### B MP #### [facility] [address] [place] [address] CBC AND DIFFERENTIALon 08-18 % AUTOMATED IMMATURE GRAN 0.3 % Normal 0.0 - 0.9 [facility] Comment on above: Result Comment: Reina ture Granulocyte Count (IG) includes promyelocytes, myelocytes and metamyelocytes but does not include bands. Percent differential counts (%) should be interpreted in the context of the absolute cell counts (cells/L). Performed By: #### U RINC #### [facility] [address] [place] [address] Basophils (Bld) [#/Vol] 0.03 10*3/uL Normal 0.00 - 0.10 [facility] Comment on above: Performed By: #### U RINC #### [facility] [address] [place] [address] Basophils/100 WBC (Bld) 0.4 % Normal 0.0 - 2.0 [facility] Comment on above: Performed By: #### U RINC #### [facility] [address] [place] [address] Eosinophils (Bld) [#/Vol] 0.03 10*3/uL Normal 0.00 - 0.70 [facility] Comment on above: Performed By: #### U RINC #### [facility] [address] [place] [address] Eosinophils/100 WBC (Bld) 0.4 % Normal 0.0 - 6.0 [facility] Comment on above: Performed By: #### U RINC #### [facility] [address] [place] [address] Lymphocytes (Bld) [#/Vol] 1.31 10*3/uL Normal 1.20 - 4.80 [facility] Comment on above: Performed By: #### U RINC #### [facility] [address] [place] [address] Lymphocytes/100 WBC (Bld) 17.6 % Normal 13.0 - 44.0 [facility] Comment on above: Performed By: #### U RINC #### [facility] [address] [place] [address] Monocytes (Bld) [#/Vol] 0.46 10*3/uL Normal 0.10 - 1.00 [facility] Comment on above: Performed By: #### U RINC #### [facility] [address] [place] [address] Monocytes/100 WBC (Bld) 6.2 % Normal 2.0 - 10.0 [facility] Comment on above: Performed By: #### U RINC #### [facility] [address] [place] [address] Neutrophils (Bld) [#/Vol] 5.60 10*3/uL Normal 1.20 - 7.70 [facility] Comment on above: Result Comment: Perc ent differential counts (%) should be interpreted in the context of the absolute cell counts (cells/L). Performed By: #### U RINC #### [facility] [address] [place] [address] Neutrophils/100 WBC (Bld) 75.1 % Normal 40.0 - 80.0 [facility] Comment on above: Performed By: #### U RINC #### [facility] [address] [place] [address] Erythrocyte distribution width (RBC) [Ratio] 13.4 % Normal 11.5 - 14.5 [facility] Comment on above: Performed By: #### U RINC #### [facility] [address] [place] [address] Hematocrit (Bld) [Volume fraction] 41.4 % Normal 36.0 - 46.0 [facility] Comment on above: Performed By: #### U RINC #### [facility] [address] [place] [address] Hemoglobin (Bld) [Mass/Vol] 12.3 g/dL Normal 12.0 - 16.0 [facility] Comment on above: Performed By: #### U RINC #### [facility] [address] [place] [address] MCHC (RBC) [Mass/Vol] 29.7 g/dL Low 32.0 - 36.0 [facility] Comment on above: Performed By: #### U RINC #### [facility] [address] [place] [address] MCV (RBC) [Entitic vol] 94 fL Normal 80 - 100 [facility] Comment on above: Performed By: #### U RINC #### [facility] [address] [place] [address] Platelets (Bld) [#/Vol] 291 10*3/uL Normal 150 - 450 [facility] Comment on above: Performed By: #### U RINC #### [facility] [address] [place] [address] RBC 4.41 x10E12/L Normal 4.00 - 5.20 [facility] Comment on above: Performed By: #### U RINC #### [facility] [address] [place] [address] WBC (Bld) [#/Vol] 7.5 10*3/uL Normal 4.4 - 11.3 [facility] Comment on above: Performed By: #### U RINC #### [facility] [address] [place] [address] CT C-SPINE WO CONTRASTon CT C-SPINE WO CONTRAST Patient Name: SHAJI ESQUIVEL STUDY: CT C-SPINE WO CONTRAST; 08/18/2022 1:14 pm INDICATION: fall . COMPARISON: None. ACCESSION NUMBER(S): [id number] ORDERING CLINICIAN: SHARMAINE DEAN TECHNIQUE: Unenhanced axial [...] changes. Electronically signed by: MIKE PRICE MD [facility] CT HEAD WO CONTRASTon 2022 CT HEAD WO CONTRAST Patient Name: SHAJI ESQUIVEL STUDY: CT HEAD WO CONTRAST; 08/18/2022 1:14 pm INDICATION: fall . COMPARISON: 08/09/2022 ACCESSION NUMBER(S): [id number] ORDERING CLINICIAN: SHARMAINE DEAN TECHNIQUE: Unenhanced images [...] process. Electronically signed by: MIKE PRICE MD [facility] HAND MIN 3 VIEWSon 3 HAND MIN 3 VIEWS Patient Name: SHAJI ESQUIVEL STUDY: HAND MIN 3 VIEWS; Left; 08/18/2022 1:00 pm INDICATION: fall . COMPARISON: None. ACCESSION NUMBER(S): [id number] ORDERING CLINICIAN: SHARMAINE DEAN FINDINGS: Exam is limited by flexion of the fingers and inability to the remove a ring from the 4th digit. All no definite acute fracture within limits of this exam. IMPRESSION: No definite acute findings. Electronically signed by: HAO BELLO MD [facility] Provider Note - ED v3on 08-07 Provider Note - ED v3 Provider Note: Chart Review: ED NOTES ED NOTES: HPI: Patient brought to the emergency department by norah after reported fall at a local long term. Per report from norah patient was sat [...] yes or no questions, GCS 15 , outer diameter grinder tool II-XII grossly intact. Sensation and motor function of extremities grossly intact. Psych: Appropriate mood and affect. I have reviewed and confirmed nurses/medics notes for patient past, social and family history. Portions of this note were dictated by speech recognition. An attempt at proof reading was made to minimize errors. Minor errors in associate professor of literacy may be present. HISTORY OF PRESENTING ILLNESS [...] Hg): 82 08-18-2022 12:37 PAST MEDICAL HISTORY ALLERGIES/INTOLERANCE S: No Known Allergies HEALTH HISTORY: No documented [...] SIGNIFICANT EVENTS: Immunizations Description:Tdap Past Medical History Description:parkinson s Description:Hypertens ion (HTN) Description:Schizophr enia Description:depressio n Description:Gastroeso phageal Reflux Disorder (GERD) Description:Anemia (more content not included)... [facility] Risk Screen - Adult Emergenc yon 08-18-2022 Risk Screen - Adult Emergency Preferred Language: Preferred Language: Preferred Language for Discussing Health Care (patient/designee)Dominick crain Patient Preferred Pharmacy: Patient Preferred Pharmacy Statement: [...] Communicatenone Learning Preferencesaudio Cultural Considerationsnone Developmental Considerationsnone Scientologist Considerationsnone Pressure Injury/TB/Substance: Pressure Injury: Do you have a coughno Smoking Statusnever smoker Alcohol Usedenies Drug Usedenies Admission Risk Screen: Significant IndicatorsComplete CAGE: CAGE: Is this an injured patient at a Trauma Center ([facility]/[place]/[facility]/[place]): no Electronic Signatures: Anne Zavaleta ([place]) (Signed 18-Aug-2022 12:49) Authored: Preferred Language, Patient Preferred Pharmacy, Advanced Directives, Family Violence Adult, Learning Assessment (Patient), Learning Assessment (Other Learner), Pressure Injury/TB/Substance, Pressure Injury, CAGE Last Updated: 18-Aug-2022 12:49 by Anne Zavaleta ([place]) [facility] Triage - EDon 08-18-2022 Triage - ED Chart Review: ARRIVAL INFORMATION Mode of Arrival: ambulance Agency Name: [place] CHIEF COMPLAINT SHAJI ESQUIVEL is a Female [...] Tdap: Immunizations, Active, 09-Aug-2022 Electronic Signatures: Anne Zavaleta) (Signed 18-Aug-2022 12:48) Entered: Risk Screens, Pain, Travel History, Chart Review, Scores, Past Medical History Authored: Quick Triage, Risk Screens, Pain, Travel History, Chart Review, Scores, Past Medical History Last Updated: 18-Aug-2022 12:48 by Anne Zavaleta (RN) Normal [facility] UA MICROSCOPICon 08-18-2022 BACTERIA 4+ /HPF Abnormal [facility] Comment on above: Performed By: #### U RINC #### [facility] [address] [place] [address] Mucus Ql (Urine sed) 3+ /LPF Normal [facility] Comment on above: Performed By: #### U RINC #### [facility] [address] [place] [address] RBC 2 /HPF Normal 0-5 [facility] Comment on above: Performed By: #### U RINC #### [facility] [address] [place] [address] SQUAMOUS EPITH. CELLS 1 /HPF Normal [facility] Comment on above: Performed By: #### U RINC #### [facility] [address] [place] [address] WBC 18 /HPF Abnormal 0-5 [facility] Comment on above: Performed By: #### U RINC #### [facility] [address] [place] [address] URINALYSIS WITH CULTURE IF I NDICATEDon 08-18-2022 Appearance (U) HAZY Normal CLEAR [facility] Comment on above: Performed By: #### U ARFX #### [address] [address] Bilirubin Ql (U) Negative Normal NEGATIVE [facility] Comment on above: Performed By: #### U ARFX #### [address] [address] Color (U) Tre Normal STRAW,YELLOW [facility] Comment on above: Performed By: #### U ARFX #### [address] [address] Glucose Ql (U) Negative Normal NEGATIVE [facility] Comment on above: Performed By: #### U ARFX #### [address] [address] Hemoglobin Ql (U) Negative Normal NEGATIVE [facility] Comment on above: Performed By: #### U ARFX #### [address] [address] Ketones Ql (U) 20(1+) Abnormal NEGATIVE [facility] Comment on above: Performed By: #### U ARFX #### [address] [address] Leukocyte esterase Test strip Ql (U) TRACE Abnormal NEGATIVE [facility] Comment on above: Performed By: #### U ARFX #### [address] [address] Nitrite Ql (U) Positive Abnormal NEGATIVE [facility] Comment on above: Performed By: #### U ARFX #### [place] [id number] pH (U) 5.0 [pH] Normal 5.0 - 8.0 [facility] Comment on above: Performed By: #### U ARFX #### [address] [address] Protein Ql (U) 30(1+) Abnormal NEGATIVE [facility] Comment on above: Performed By: #### U ARFX #### [address] [address] Specific gravity (U) [Rel density] 1.029 Normal 1.005 - 1.035 [facility] Comment on above: Performed By: #### U ARFX #### [address] [address] Urobilinogen (U) [Mass/Vol] 2.0 mg/dL High 0.0 - 1.9 [facility] Comment on above: Result Comment: Due [...] urobilinogen. Performed By: #### U ARFX #### [address] [address] Lab Specimen Source Normal [facility] Comment on above: Performed By: #### U ARFX #### [address] [address] Performed By: #### U RINC #### [facility] [address] [place] [address] URINE CULTURE,BACTERIALon URINE CULTURE,BACTERIAL PATIENT: SHAJI ESQUIVEL LOCATION: [facility] BILL#: [id number] : 60 AGE: SEX: F ORDERED BY: SHARMAINE DEAN SOURCE: URINE COLLECTED: 08/18/22 14:07 ANTIBIOTICS AT [place].: RECEIVED : 08/18/22 19:46 SITE: R E S U L T S URINE CULTURE,BACTERIAL FINAL 08/20/22 10:00 ISOLATE1 : Escherichia coli >100,000 CFU/ML __ Organism E coli Antibiotic BP INTRP __ Ampicillin R Amox/Clavulanate R Ceftriaxone S Cefazolin R Ciprofloxacin S Nitrofurantoin S Gentamicin S Levofloxacin S Piperc/Tazobact S Trimeth/Sulfa S S=SUSCEPTIBLE I=INTERMEDIATE R=RESISTANT SDD=SUSCEPTIBLE DOSE DEPENDENT NS=NONSUSCEPTIBLE X=REPORTED IN ERROR Normal [facility] Comment on above: Performed By: #### U [facility] ####[id number] [place] [address] CT C-SPINE WO CONTRASTon CT C-SPINE WO CONTRAST Addendum Begins Patient Name: SHAJI ESQUIVEL ADDENDUM: 3D volume rendered images were provided and reviewed. Electronically signed by: ZULEMA BRAXTON MD Addendum Ends Patient Name: SHAJI ESQUIVEL STUDY: CT HEAD WO CONTRAST; CT FACIAL BONES; CT C-SPINE WO CONTRAST; 08/09/2022 10:10 am INDICATION: head injury ; fall with injury . COMPARISON: None. ACCESSION NUMBER(S): [id number]; [id number]; [id number] ORDERING CLINICIAN: ERICKSON HERNANDEZ TECHNIQUE: Noncontrast axial [...] spine. Electronically signed by: ZULEMA BRAXTON MD [facility] CT FACIAL BONES W/O CONTRAST on 08-09-2022 [...] with injury . COMPARISON: None. ACCESSION NUMBER(S): [id number]; [id number]; [id number] ORDERING CLINICIAN: ERICKSON HERNANDEZ TECHNIQUE: Noncontrast axial [...] spine. Electronically signed by: ZULEMA BRAXTON MD [facility] CT HEAD WO CONTRASTon 2022 CT HEAD WO CONTRAST Addendum Begins Patient Name: SHAJI ESQUIVEL ADDENDUM: 3D volume rendered images were provided and reviewed. Electronically signed by: ZULEMA BRAXTON MD Addendum Ends Patient Name: SHAJI ESQUIVEL STUDY: CT HEAD WO CONTRAST; CT FACIAL BONES; CT C-SPINE WO CONTRAST; 08/09/2022 10:10 am INDICATION: head injury ; fall with injury . COMPARISON: None. ACCESSION NUMBER(S): [id number]; [id number]; [id number] ORDERING CLINICIAN: ERICKSON HERNANDEZ TECHNIQUE: Noncontrast axial [...] spine. Electronically signed by: ZULEMA BRAXTON MD [facility] CT IMAGE RECONSTRUCTION 3D V OLUME and MIPon 08-09-2022 CT IMAGE RECONSTRUCTION 3D VOLUME and MIP Addendum Begins Patient Name: SHAJI ESQUIVEL ADDENDUM: 3D volume rendered images were provided and reviewed. Electronically signed by: ZULEMA BRAXTON MD Addendum Ends Patient Name: SMAIL, NIVA STUDY: CT HEAD WO CONTRAST; CT FACIAL BONES; CT C-SPINE WO CONTRAST; 08/09/2022 10:10 am INDICATION: head injury ; fall with injury . COMPARISON: None. ACCESSION NUMBER(S): [id number]; [id number]; [id number] ORDERING CLINICIAN: ERICKSON HERNANDEZ TECHNIQUE: Noncontrast axial [...] spine. Electronically signed by: ZULEMA BRAXTON MD [facility] Provider Note - ED v3on - Provider Note - ED v3 Provider Note: [...] Hg): 75 08-09-2022 09:23 PAST MEDICAL HISTORY ALLERGIES/INTOLERANCE S: No Known Allergies HEALTH HISTORY: No documented [...] SIGNS: T PRBP SpO2O2(LPM) %FiO2 Method 09-Aug-2022 09:23:[id number]/ 75 98 room air, no respiratory support MDM [...] Escalation of Care: (more content not included)... [facility] Risk Screen - Adult Emergenc yon 08-09-2022 Risk Screen - Adult Emergency Preferred Language: Preferred Language: Preferred Language for Discussing Health Care (patient/designee)Dominick crain Patient Preferred Pharmacy: Patient Preferred Pharmacy Statement: [...] Communicatenone Learning Preferencesaudio Cultural Considerationsnone Developmental Considerationsnone Scientologist Considerationsnone Pressure Injury/TB/Substance: Pressure Injury: Do you have a coughno Smoking Statusnever smoker Alcohol Usedenies Drug Usedenies Admission Risk Screen: Significant IndicatorsComplete CAGE: CAGE: Is this an injured patient at a Trauma Center ([facility]/[place]/[facility]/[place]): no Electronic Signatures: Anna Bermudez ([place]) (Signed 09-Aug-2022 09:26) Authored: Preferred Language, Patient Preferred Pharmacy, Advanced Directives, Family Violence Adult, Learning Assessment (Patient), Learning Assessment (Other Learner), Pressure Injury/TB/Substance, Pressure Injury, CAGE Last Updated: 09-Aug-2022 09:26 by Anna Bermudez ([place]) [facility] Triage - EDon 08-09-2022 Triage - ED [...] BMI (kg/m2): 24.218 Calculated BSA (m2) 1.62 [place] Coma Scale: Best Eye Response: (E4) spontaneous Best Motor Response: (M6) obeys commands Best Verbal Response: (V4) confused [place] Score: 14 Allergies: no Patient has homicidal [...] Intravenous Therapy/ Heparin/Saline Lock no (0) Gait/Transferring normal/bedrest/wheelc hair (0) Ambulatory Aids none/bedrest/nurse assist (0) Mental [...] Medical History Reviewedno Electronic Signatures: Anna Bermudez ([place]) (Signed 09-Aug-2022 09:25) Entered: Risk Screens, Pain, Travel History, Chart Review, Scores, Past Medical History Authored: Quick Triage, Risk Screens, Pain, Travel History, Chart Review, Scores, Past Medical History Last Updated: 09-Aug-2022 09:25 by Anna Bermudez) [facility] CHEST 1 VIEWon 05-26-2022 CHEST 1 VIEW STUDY: Chest Radiograph; 05/25/2022 10:15 PM INDICATION: Trouble swallowing. Looking for foreign body. COMPARISON: 08/10/2021 XR Chest ACCESSION NUMBER(S): [id number] ORDERING CLINICIAN: ERICK LOWE MD TECHNIQUE: Frontal chest was obtained at 2215 hours. FINDINGS: No radiodense foreign body is identified. Both lungs are clear. The heart and mediastinum are of normal size and contour. No pleural effusion. No pneumothorax. No acute bony abnormality identified. IMPRESSION: No findings of an acute cardiopulmonary process. Signed by Sachin Henley MD Electronically signed by: SACHIN HENLEY MD [facility] SOFT TISSUE NECKon SOFT TISSUE NECK STUDY: Soft Tissue Neck Radiographs; 05/25/2022 at 10:17 PM INDICATION: Difficulty swallowing. Evaluate for foreign body. COMPARISON: XR chest of same date, 05/25/22. ACCESSION NUMBER(S): [id number] ORDERING CLINICIAN: ERICK LOWE MD TECHNIQUE: Two view(s) of the [...] MD Electronically signed by: FARIDA LUCIANO MD [facility] Provider Note - ED v3on 05-09 Provider Note - ED v3 Provider Note: Chart Review: ED NOTES ED NOTES: History of Present Illness: Female presenting to emergency department from [place] after choking on a piece of broccoli. Patient reportedly was at her behavioral [place] when she choked on a piece of [...] pertinent to complaint Social history: Lives in [place], denies EtOH or drug use REVIEW OF [...] Hg): 82 05-25-2022 18:53 PAST MEDICAL HISTORY ALLERGIES/INTOLERANCE S: No Known Allergies HEALTH HISTORY: No documented [...] SIGNS: T PRBP SpO2O2(LPM) %FiO2 Method 25-May-2022 23:13:00-5521142/90 95 room air, no respiratory support 25-May-2022 19:37:00-9213431/80 96 room air, no respiratory support 25-May-2022 18:53:00-36.86217889/ 82 99 room air, no respiratory support [facility] MDM/ED COURSE: Patient presenting to emergency department after having an episode of choking on a piece of broccoli. She was at her [place] and abdominal thrusts were performed and patient [...] a critically ill patient: no Electronic Signatures: Erick Lowe) (Signed 26-May-2022 03:57) Authored: ED Notes, HPI, PMH, Results/Vital Signs, MDM/ED Course, Clini (more content not included)... [facility] Risk Screen - Adult Emergenc yon 05-25-2022 Risk Screen - Adult Emergency Preferred Language: Preferred Language: Preferred Language for Discussing Health Care (patient/designee)Dominick crain Patient Preferred Pharmacy: Patient Preferred Pharmacy Statement: [...] Communicatenone Learning Preferencesaudio Cultural Considerationsnone Developmental Considerationsnone Scientologist Considerationsnone Learning Assessment (Other Learner): Learning Assessment (Other Learner): Other learner availableno Pressure Injury/TB/Substance: Pressure Injury: Do you have a coughno Smoking Statusnever smoker Alcohol Usedenies Drug Usedenies Admission Risk Screen: Significant IndicatorsComplete CAGE: CAGE: Is this an injured patient at a Trauma Center ([facility]/[place]ian[place] jesu/[place]/Julian): no Electronic Signatures: Anne Zavaleta) (Signed 25-May-2022 19:05) Authored: Preferred Language, Patient Preferred Pharmacy, Advanced Directives, Family Violence Adult, Learning Assessment (Patient), Learning Assessment (Other Learner), Pressure Injury/TB/Substance, Pressure Injury, CAGE Last Updated: 25-May-2022 19:05 by Anne Zavaleta ([place]) [facility] Triage - EDon 05-25-2022 Triage - ED Chart Review: ARRIVAL INFORMATION Mode of Arrival: ambulance Agency Name: [place] CHIEF COMPLAINT SHAJI ESQUIVEL is a Female [...] to assess Risk Screens Suicide Risk Screen [place] Risk Screen: unable to assess [place] Risk Screen Brunson Fall Scale Screening Unable [...] Past Medical History Reviewedyes Electronic Signatures: Anne Zavaleta ([place]) (Signed 25-May-2022 19:04) Entered: Risk Screens, Pain, Travel History, Chart Review, Scores, Past Medical History Authored: Quick Triage, Risk Screens, Pain, Travel History, Chart Review, Scores, Past Medical History Last Updated: 25-May-2022 19:04 by Anne Zavaleta ([place]) [facility] VASC LAB Venous Duplex Ultra sound DVTon 04-22-2022 VASC LAB Venous [place] [address] [phone], Vascular Lab Report Lower Venous Duplex Ultrasound Patient Name: SHAJI Pruitt Meliza Physician: [id number] Deshaun Lee MD Study Date: 04/22/2022 Referring ANTWAN MAHARAJ Physician: MRN/PID: [id number] PCP: Accession/Order#: [id number] CC Report to: Date of : 1960 Technologist: Tanna Drake RVT Gender: F Technologist 2: Admission Status: Outpatient Location Performed: [facility] Diagnosis/ICD: R60.0-Localized (leg) edema; M79.89-Right leg swelling Procedure/CPT: 41366 Peripheral venous duplex scan for DVT Limited-91001 CONCLUSIONS: Right Lower Venous: No evidence of [...] Iliac Yes None CFV Yes None Spontaneous/Phasic [id number] Deshaun Lee MD Final Normal [facility] XR LUMBAR PUNCTURE (DIAGNOST IC) WITH [...] Dr. Tong FLUOROSCOPY DOSE: Fluoro dose in Ka,r mGy: 14.5 PROCEDURE: The risks, benefits and [...] FriApr 17, 2022 10:14:57 AM EST Normal Comment on above: Order Comment: Injur y/Trauma or Illness?:Illness/Other How long have you had these symptoms (acute/chronic)?:Acute Reason for exam?:G91.2 (ICD-10-CM) - NPH (normal pressure hydrocephalus) (HCC Type of Exam?:Initial Additional signs and symptoms?:no Fluoro time in minutes:16 Fluoro dose in mGy?:14.5 CBC panel Auto (Bld)on 04-15 Erythrocyte distribution width (RBC) [Entitic vol] 12.3 % 11.6 - 14.8 % [facility] Hematocrit (Bld) [Volume fraction] 39.5 % 36 - 46 % [facility] Hemoglobin (Bld) [Mass/Vol] 12.0 g/dL 12 - 16 g/dL [facility] Interpretation and review of laboratory results Abnormal [facility] MCH (RBC) [Entitic mass] 29.2 pg 26 - 34 pg [facility] MCHC (RBC) [Mass/Vol] 30.4 g/dL Low 31 - 37 g/dL [facility] MCV (RBC) [Entitic vol] 96.1 fL 80 - 100 fL [facility] Nucleated RBC (Bld) [#/Vol] 0.00 10*3/uL [facility] Nucleated RBC/100 WBC (Bld) [Ratio] 0.0 % [facility] Platelet mean volume (Bld) [Entitic vol] 10.0 fL 9.4 - 12.4 fL [facility] Platelets (Bld) [#/Vol] 299 10*3/uL [facility] RBC (Bld) [#/Vol] 4.11 10*6/uL [facility] WBC (Bld) [#/Vol] 6.64 10*3/uL [facility] Teston 02-26-2019 MARCELL Test Negative Normal Negative [facility] Comment on above: Performed By: #### 8 [id number] #### GRAYSON Misc Micro SubSection , Glucose POCon 02-25-2019 Glucose [Mass/Vol] 97 mg/dL Normal 70-99 [facility] Comment on above: Performed By: #### 5 [id number] #### GRAYSON POC Subsection [facility] [place] [address] XR UPPER GI SERIESon 019 1. Limited study. 2. No esophageal mass or stricture. 3. Findings suggestive of gastritis with possible ulcers in the gastric antrum. 4. Large amount of gastroesophageal reflux. [employer] Workstation ID: [id number] [facility] EXAMINATION: XR UPPE R GI SERIES [...] esophagus. No evidence of gastric outlet obstruction. [facility] Interface, Rad In Fuji Speechq - 11/03/2018 5:46 PM EDT EXAMINATION: XR [...] antrum. 4. Large amount of gastroesophageal reflux. [employer] Workstation ID: [id number] [facility] US Abdomen Completeon 2018 US Abdomen Complete Exam Date/Time: 09/17/2018 08:09 EDT Reason for Exam: ABD PAIN UNSPECIFIED LOCATION Report STUDY: US Abdomen Complete; 09/17/2018 8:09 am INDICATION: 58 y/o F with ABD PAIN UNSPECIFIED LOCATION. COMPARISON: None. ACCESSION NUMBER(S): [id number] ORDERING CLINICIAN: Antwan Maharaj TECHNIQUE: Routine ultrasound [...] abdomen. FINAL REPORT Dictated: 09/17/2018 9:05 am Srini Peña MD Signed (Electronic Signature): 09/17/2018 9:05 am Signed by: Srini Peña MD Technologist: BS [facility] Ferritinon 12-25-2017 Ferritin 5 ng/mL Low 13-150 [facility] Comment on above: Result Comment: Samp les from patients routinely receiving high dose biotin therapy(100-300 mg/day) may show falsely decreased results. Please correlateclinically. Performed By: #### C BCWOD, CMET, LIPID, HBA1C ####Unless otherwise noted, all testing performed by [address] [phone]: [id number] Director: David Mcclain M.D. Iron, Totalon 12-25-2017 Iron, Total 44 mcg/dL Low 50-170 [facility] Comment on above: Performed By: #### C BCWOD, CMET, LIPID, HBA1C ####Unless otherwise noted, all testing performed by [address] [phone]: [id number] Director: David Mcclain M.D. Vitamin B12on 12-25-2017 Cobalamins (Vitamin B12) 322 pg/mL Normal 193-986 [facility] Comment on above: Performed By: #### C BCWOD, CMET, LIPID, HBA1C ####Unless otherwise noted, all testing performed by [address] [phone]: [id number] Director: David Mcclain M.D. CBC with Diffon 12-23-2017 Basophils Auto #/vol (Bld) 0.0 K/mcL Normal 0-0.2 [facility] Comment on above: Performed By: #### C BCWOD, CMET, LIPID, HBA1C ####Unless otherwise noted, all testing performed by [address] [phone]: [id number] Director: David Mcclain M.D. Basophils/100 WBC Auto (Bld) 0.3 % Normal [facility] Comment on above: Performed By: #### C BCWOD, CMET, LIPID, HBA1C ####Unless otherwise noted, all testing performed by [address] [phone]: [id number] Director: David Mcclain M.D. Eosinophils 0.3 K/mcL Normal 0-0.5 [facility] Comment on above: Performed By: #### C BCWOD, CMET, LIPID, HBA1C ####Unless otherwise noted, all testing performed by [address] [phone]: [id number] Director: David Mcclain M.D. Eosinophils/100 leukocytes 4.3 % Normal [facility] Comment on above: Performed By: #### C BCWOD, CMET, LIPID, HBA1C ####Unless otherwise noted, all testing performed by [address] [phone]: [id number] Director: David Mcclain M.D. Erythrocyte distribution width Auto Ratio (RBC) 14.5 % High 10.0-14.4 [facility] Comment on above: Performed By: #### C BCWOD, CMET, LIPID, HBA1C ####Unless otherwise noted, all testing performed by [address] [phone]: [id number] Director: David Mcclain M.D. Erythrocytes (RBC) 3.87 M/mcL Normal 3.7-5.0 [facility] Comment on above: Performed By: #### C BCWOD, CMET, LIPID, HBA1C ####Unless otherwise noted, all testing performed by [address] [phone]: [id number] Director: David Mcclain M.D. Hematocrit (HCT) 33.5 % Low 34.4-44.8 [facility] Comment on above: Performed By: #### C BCWOD, CMET, LIPID, HBA1C ####Unless otherwise noted, all testing performed by [address] [phone]: [id number] Director: David Mcclain M.D. Hemoglobin mass conc (Bld) 10.9 g/dL Low 11.6-15.4 [facility] Comment on above: Performed By: #### C BCWOD, CMET, LIPID, HBA1C ####Unless otherwise noted, all testing performed by [address] [phone]: [id number] Director: David Mcclain M.D. Lymphocytes 2.4 K/mcL Normal 1.0-3.7 [facility] Comment on above: Performed By: #### C BCWOD, CMET, LIPID, HBA1C ####Unless otherwise noted, all testing performed by [address] [phone]: [id number] Director: David Mcclain M.D. Lymphocytes/100 leukocytes 35.0 % Normal [facility] Comment on above: Performed By: #### C BCWOD, CMET, LIPID, HBA1C ####Unless otherwise noted, all testing performed by [address] [phone]: [id number] Director: David Mcclain M.D. MCH 28.2 pg Normal 27.9-33.9 [facility] Comment on above: Performed By: #### C BCWOD, CMET, LIPID, HBA1C ####Unless otherwise noted, all testing performed by [address] [phone]: [id number] Director: David Mcclain M.D. MCHC mass conc (RBC) 32.6 g/dL Low 33.1-35.[address] [facility] Comment on above: Performed By: #### C BCWOD, CMET, LIPID, HBA1C ####Unless otherwise noted, all testing performed by [address] [phone]: [id number] Director: David Mcclain M.D. MCV 86.4 fL Normal 82.6-98.9 [facility] Comment on above: Performed By: #### C BCWOD, CMET, LIPID, HBA1C ####Unless otherwise noted, all testing performed by [address] [phone]: [id number] Director: David Mcclain M.D. Monocytes 0.5 K/mcL Normal 0.1-0.6 [facility] Comment on above: Performed By: #### C BCWOD, CMET, LIPID, HBA1C ####Unless otherwise noted, all testing performed by [address] [phone]: [id number] Director: David Mcclain M.D. Monocytes/100 leukocytes 7.4 % Normal [facility] Comment on above: Performed By: #### C BCWOD, CMET, LIPID, HBA1C ####Unless otherwise noted, all testing performed by [place] [phone]: [id number] Director: David Mcclain M.D. Neutrophils 3.6 K/mcL Normal 1.2-6.9 [facility] Comment on above: Performed By: #### C BCWOD, CMET, LIPID, HBA1C ####Unless otherwise noted, all testing performed by [place] [phone]: [id number] Director: David Mcclain M.D. Platelet mean volume (PMV) 8.1 fL Normal 7.0-10.6 [facility] Comment on above: Performed By: #### C BCWOD, CMET, LIPID, HBA1C ####Unless otherwise noted, all testing performed by [place] [id number]: [id number] Director: David Mcclain M.D. Platelets 285 K/mcL Normal 162-402 [facility] Comment on above: Performed By: #### C BCWOD, CMET, LIPID, HBA1C ####Unless otherwise noted, all testing performed by [address]8509CLIA: [id number] Director: David Mcclain M.D. Segmented Neut % 53.0 % Normal [facility] Comment on above: Performed By: #### C BCWOD, CMET, LIPID, HBA1C ####Unless otherwise noted, all testing performed by [address] [phone]: [id number] Director: David Mcclain M.D. WBC (Leukocytes) 6.8 K/mcL Normal 3.4-10.6 [facility] Comment on above: Performed By: #### C BCWOD, CMET, LIPID, HBA1C ####Unless otherwise noted, all testing performed by [address] [phone]: [id number] Director: David Mcclain M.D. [facility] 12-23-2017 Alanine aminotransferase (ALT) 17 U/L Normal 14-65 [facility] Comment on above: Result Comment: This test result might be falsely depressed or falsely elevated onsamples drawn from patients taking Sulfasalazine and Sulfapyridine.Venipuncture should occur prior to taking either of these drugs. Performed By: #### C BCWOD, CMET, LIPID, HBA1C ####Unless otherwise noted, all testing performed by [address] [phone]: [id number] Director: David Mcclain M.D. Albumin 3.3 g/dL Normal 3.2-5.2 [facility] Comment on above: Performed By: #### C BCWOD, CMET, LIPID, HBA1C ####Unless otherwise noted, all testing performed by [address] [phone]: [id number] Director: David Mcclain M.D. Alkaline phosphatase (ALP) 35 U/L Low 40-150 [facility] Comment on above: Performed By: #### C BCWOD, CMET, LIPID, HBA1C ####Unless otherwise noted, all testing performed by [address] [phone]: [id number] Director: David Mcclain M.D. Aspartate aminotransferase (AST) 9 U/L Normal 0-45 [facility] Comment on above: Result Comment: This test result might be falsely depressed or falsely elevated onsamples drawn from patients taking Sulfasalazine and Sulfapyridine.Venipuncture should occur prior to taking either of these drugs. Performed By: #### C BCWOD, CMET, LIPID, HBA1C ####Unless otherwise noted, all testing performed by [address] [phone]: [id number] Director: David Mcclain M.D. Bilirubin (total) 0.2 mg/dL Low 0.3-1.2 [facility] Comment on above: Performed By: #### C BCWOD, CMET, LIPID, HBA1C ####Unless otherwise noted, all testing performed by [address] [phone]: [id number] Director: David Mcclain M.D. Calcium 8.9 mg/dL Normal 8.4-10.2 [facility] Comment on above: Performed By: #### C BCWOD, CMET, LIPID, HBA1C ####Unless otherwise noted, all testing performed by [address] [phone]: [id number] Director: David Mcclain M.D. Chloride 108 mmol/L Normal 98-108 [facility] Comment on above: Performed By: #### C BCWOD, CMET, LIPID, HBA1C ####Unless otherwise noted, all testing performed by [address] [phone]: [id number] Director: David Mcclain M.D. CO2 24 mmol/L Normal 21-32 [facility] Comment on above: Performed By: #### C BCWOD, CMET, LIPID, HBA1C ####Unless otherwise noted, all testing performed by [address] [phone]: [id number] Director: David Mcclain M.D. Creatinine 0.94 mg/dL Normal 0.40-1.10 [facility] Comment on above: Performed By: #### C BCWOD, CMET, LIPID, HBA1C ####Unless otherwise noted, all testing performed by [address] [phone]: [id number] Director: David Mcclain M.D. eGFR (black) mL/min/{1.73_m2} Normal [facility] Comment on above: Result Comment: Afri can [place] GFR Calc Performed By: #### C BCWOD, CMET, LIPID, HBA1C ####Unless otherwise noted, all testing performed by [address] [phone]: [id number] Director: David Mcclain M.D. eGFR (non-black) mL/min/{1.73_m2} Normal [facility] Comment on above: Result Comment: Non- GFR [...] noted, all testing performed by [address] [phone]: [id number] Director: David Mcclain M.D. Glucose mass conc 122 mg/dL High 70-99 [facility] Comment on above: Result Comment: This test result might be falsely depressed or falsely elevated onsamples drawn from patients taking Sulfasalazine and Sulfapyridine.Venipuncture should occur prior to taking either of these drugs. Performed By: #### C BCWOD, CMET, LIPID, HBA1C ####Unless otherwise noted, all testing performed by [address] [phone]: [id number] Director: David Mcclain M.D. Potassium molar conc 3.9 mmol/L Normal 3.5-5.[address] [facility] Comment on above: Performed By: #### C BCWOD, CMET, LIPID, HBA1C ####Unless otherwise noted, all testing performed by [address] [phone]: [id number] Director: David Mcclain M.D. Protein 6.2 g/dL Normal 6.0-8.0 [facility] Comment on above: Performed By: #### C BCWOD, CMET, LIPID, HBA1C ####Unless otherwise noted, all testing performed by [address] [phone]: [id number] Director: David Johny, M.D. Sodium 143 mmol/L Normal 135-145 [facility] Comment on above: Performed By: #### C BCWOD, CMET, LIPID, HBA1C ####Unless otherwise noted, all testing performed by [address] [phone]: [id number] Director: David Mcclain M.D. Urea nitrogen 14 mg/dL Normal 8-25 [facility] Comment on above: Performed By: #### C BCWOD, CMET, LIPID, HBA1C ####Unless otherwise noted, all testing performed by [place] [phone]: [id number] Director: David Mcclain M.D. Hemoglobin A1Con 12-23-2017 Hemoglobin A1c/Hemoglobin.total mass fraction (Bld) 7.3 % High 4.1-6.5 [facility] Comment on above: Performed By: #### C BCWOD, CMET, LIPID, HBA1C ####Unless otherwise noted, all testing performed by [address] [phone]: [id number] Director: David Mcclain M.D. Lipid Panelon 12-23-2017 Cholesterol 113 mg/dL Normal 100-199 [facility] Comment on above: Performed By: #### C BCWOD, CMET, LIPID, HBA1C ####Unless otherwise noted, all testing performed by [address] [phone]: [id number] Director: David Mcclain M.D. Cholesterol in VLDL mass conc 29 mg/dL Normal 5-40 [facility] Comment on above: Performed By: #### C BCWOD, CMET, LIPID, HBA1C ####Unless otherwise noted, all testing performed by [address] [phone]: [id number] Director: David Mcclain M.D. Cholesterol to HDL Ratio 2.9 {ratio} Low 3.2-5.0 [facility] Comment on above: Result Comment: [place] coats Coronary Heart Disease Risk Factor (CHDRF):Average risk= 4.41/2 Average risk= 3.32 times Average risk= 7.1 Performed By: #### C BCWOD, CMET, LIPID, HBA1C ####Unless otherwise noted, all testing performed by [address] [phone]: [id number] Director: David Mcclain M.D. HDL Cholesterol 40 mg/dL Normal 40-59 [facility] Comment on above: Performed By: #### C BCWOD, CMET, LIPID, HBA1C ####Unless otherwise noted, all testing performed by [address] [phone]: [id number] Director: David Mcclain M.D. LDL Cholesterol 45 mg/dL Normal 10-150 [facility] Comment on above: Performed By: #### C BCWOD, CMET, LIPID, HBA1C ####Unless otherwise noted, all testing performed by [address] [phone]: [id number] Director: David Mcclain M.D. Triglyceride 143 mg/dL High 25-120 [facility] Comment on above: Performed By: #### C BCWOD, CMET, LIPID, HBA1C ####Unless otherwise noted, all testing performed by [address] [phone]: [id number] Director: David Mcclain M.D. TSHon 12-23-2017 Thyroid stimulating hormone (TSH) 5.67 uIU/mL High 0.320-5.000 [facility] Comment on above: Result Comment: Samp les from patients routinely receiving high dose biotin therapy(100-300 mg/day) may show falsely decreased results. Please correlateclinically. Performed By: #### C BCWOD, CMET, LIPID, HBA1C ####Unless otherwise noted, all testing performed by [address] [phone]: [id number] Director: David Mcclain M.D. Thyroxine (T4) free 1.0 ng/dL Normal 0.7-1.7 [facility] Comment on above: Result Comment: Samp les from patients routinely receiving high dose biotin therapy(100-300 mg/day) may show falsely increased results. Please correlateclinically. Performed By: #### C BCWOD, CMET, LIPID, HBA1C ####Unless otherwise noted, all testing performed by [address] [phone]: [id number] Director: David Mcclain M.D. Influenza A,B Rapid Molecula adolfo 07-26-2017 Influenza A Rapid Molecular Not Detected Normal Not Detected [facility] Comment on above: Performed By: #### C BCWOD, CMET, LIPID, HBA1C ####Unless otherwise noted, all testing performed by [address] [phone]: [id number] Director: David Johny, M.D. Influenza B Rapid Molecular Not Detected Normal Not Detected [facility] Comment on above: Performed By: #### C BCWOD, CMET, LIPID, HBA1C ####Unless otherwise noted, all testing performed by [place] [phone]: [id number] Director: David Mcclain M.D. CBC with Diffon 04-17-2017 Basophils Auto #/vol (Bld) 0.0 K/mcL Normal 0-0.2 [facility] Comment on above: Performed By: #### C BCDIF, MG, TSH, CMET, LIPID, VITB12, HBA1C ####Unless otherwise noted, all testing performed by [place] [id number]: [id number] Director: David Mcclain M.D. Basophils/100 WBC Auto (Bld) 0.4 % Normal [facility] Comment on above: Performed By: #### C BCDIF, MG, TSH, CMET, LIPID, VITB12, HBA1C ####Unless otherwise noted, all testing performed by [address] [phone]: [id number] Director: David Mcclain M.D. Eosinophils 0.1 K/mcL Normal 0-0.5 [facility] Comment on above: Performed By: #### C BCDIF, MG, TSH, CMET, LIPID, VITB12, HBA1C ####Unless otherwise noted, all testing performed by [place] [id number]: [id number] Director: David Mcclain M.D. Eosinophils/100 leukocytes 1.9 % Normal [facility] Comment on above: Performed By: #### C BCDIF, MG, TSH, CMET, LIPID, VITB12, HBA1C ####Unless otherwise noted, all testing performed by [address] [phone]: [id number] Director: David Mcclain M.D. Erythrocyte distribution width Auto Ratio (RBC) 14.8 % High 10.0-14.4 [facility] Comment on above: Performed By: #### C BCDIF, MG, TSH, CMET, LIPID, VITB12, HBA1C ####Unless otherwise noted, all testing performed by [address] [id number]: [id number] Director: David Mcclain M.D. Erythrocytes (RBC) 4.82 M/mcL Normal 3.7-5.0 [facility] Comment on above: Performed By: #### C BCDIF, MG, TSH, CMET, LIPID, VITB12, HBA1C ####Unless otherwise noted, all testing performed by [address] [phone]: [id number] Director: David Mcclain M.D. Hematocrit (HCT) 42.9 % Normal 34.4-44.8 [facility] Comment on above: Performed By: #### C BCDIF, MG, TSH, CMET, LIPID, VITB12, HBA1C ####Unless otherwise noted, all testing performed by [address] [phone]: [id number] Director: David Mcclain M.D. Hemoglobin mass conc (Bld) 14.0 g/dL Normal 11.6-15.4 [facility] Comment on above: Performed By: #### C BCDIF, MG, TSH, CMET, LIPID, VITB12, HBA1C ####Unless otherwise noted, all testing performed by [address] [phone]: [id number] Director: David Mcclain M.D. Lymphocytes 1.4 K/mcL Normal 1.0-3.7 [facility] Comment on above: Performed By: #### C BCDIF, MG, TSH, CMET, LIPID, VITB12, HBA1C ####Unless otherwise noted, all testing performed by [address] [phone]: [id number] Director: David Mcclain M.D. Lymphocytes/100 leukocytes 23.0 % Normal [facility] Comment on above: Performed By: #### C BCDIF, MG, TSH, CMET, LIPID, VITB12, HBA1C ####Unless otherwise noted, all testing performed by [address] [phone]: [id number] Director: David Mcclain M.D. MCH 29.0 pg Normal 27.9-33.9 [facility] Comment on above: Performed By: #### C BCDIF, MG, TSH, CMET, LIPID, VITB12, HBA1C ####Unless otherwise noted, all testing performed by [address] [phone]: [id number] Director: David Mcclain M.D. MCHC mass conc (RBC) 32.6 g/dL Low 33.1-35.[address] [facility] Comment on above: Performed By: #### C BCDIF, MG, TSH, CMET, LIPID, VITB12, HBA1C ####Unless otherwise noted, all testing performed by [address] [phone]: [id number] Director: David Mcclain M.D. MCV 88.9 fL Normal 82.6-98.9 [facility] Comment on above: Performed By: #### C BCDIF, MG, TSH, CMET, LIPID, VITB12, HBA1C ####Unless otherwise noted, all testing performed by [address] [phone]: [id number] Director: David Mcclain M.D. Monocytes 0.4 K/mcL Normal 0.1-0.6 [facility] Comment on above: Performed By: #### C BCDIF, MG, TSH, CMET, LIPID, VITB12, HBA1C ####Unless otherwise noted, all testing performed by [address] [phone]: [id number] Director: David Mcclain M.D. Monocytes/100 leukocytes 6.6 % Normal [facility] Comment on above: Performed By: #### C BCDIF, MG, TSH, CMET, LIPID, VITB12, HBA1C ####Unless otherwise noted, all testing performed by [address] [phone]: [id number] Director: David Mcclain M.D. Neutrophils 4.2 K/mcL Normal 1.2-6.9 [facility] Comment on above: Performed By: #### C BCDIF, MG, TSH, CMET, LIPID, VITB12, HBA1C ####Unless otherwise noted, all testing performed by [address] [phone]: [id number] Director: David Mcclain M.D. Platelet mean volume (PMV) 8.4 fL Normal 7.0-10.6 [facility] Comment on above: Performed By: #### C BCDIF, MG, TSH, CMET, LIPID, VITB12, HBA1C ####Unless otherwise noted, all testing performed by [address] [phone]: [id number] Director: David Mcclain M.D. Platelets 275 K/mcL Normal 162-402 [facility] Comment on above: Performed By: #### C BCDIF, MG, TSH, CMET, LIPID, VITB12, HBA1C ####Unless otherwise noted, all testing performed by [address] [phone]: [id number] Director: David Mcclain M.D. Segmented Neut % 68.1 % Normal [facility] Comment on above: Performed By: #### C BCDIF, MG, TSH, CMET, LIPID, VITB12, HBA1C ####Unless otherwise noted, all testing performed by [address] [phone]: [id number] Director: David Mcclain M.D. WBC (Leukocytes) 6.1 K/mcL Normal 3.4-10.6 [facility] Comment on above: Performed By: #### C BCDIF, MG, TSH, CMET, LIPID, VITB12, HBA1C ####Unless otherwise noted, all testing performed by [address] [phone]: [id number] Director: David Mcclain M.D. [facility] 04-17-2017 Alanine aminotransferase (ALT) 27 U/L Normal 14-65 [facility] Comment on above: Result Comment: This test result might be falsely depressed or falsely elevated onsamples drawn from patients taking Sulfasalazine and Sulfapyridine.Venipuncture should occur prior to taking either of these drugs. Performed By: #### C BCDIF, MG, TSH, CMET, LIPID, VITB12, HBA1C ####Unless otherwise noted, all testing performed by [address] [phone]: [id number] Director: David Mcclain M.D. Albumin 3.7 g/dL Normal 3.2-5.2 [facility] Comment on above: Performed By: #### C BCDIF, MG, TSH, CMET, LIPID, VITB12, HBA1C ####Unless otherwise noted, all testing performed by [address] [phone]: [id number] Director: David Mcclain M.D. Alkaline phosphatase (ALP) 56 U/L Normal 40-150 [facility] Comment on above: Performed By: #### C BCDIF, MG, TSH, CMET, LIPID, VITB12, HBA1C ####Unless otherwise noted, all testing performed by [address] [phone]: [id number] Director: David Mcclain M.D. Aspartate aminotransferase (AST) 10 U/L Normal 0-45 [facility] Comment on above: Result Comment: This test result might be falsely depressed or falsely elevated onsamples drawn from patients taking Sulfasalazine and Sulfapyridine.Venipuncture should occur prior to taking either of these drugs. Performed By: #### C BCDIF, MG, TSH, CMET, LIPID, VITB12, HBA1C ####Unless otherwise noted, all testing performed by [address] [phone]: [id number] Director: David Mcclain M.D. Bilirubin (total) 0.6 mg/dL Normal 0.3-1.2 [facility] Comment on above: Performed By: #### C BCDIF, MG, TSH, CMET, LIPID, VITB12, HBA1C ####Unless otherwise noted, all testing performed by [address] [phone]: [id number] Director: David Mcclain M.D. Calcium 9.7 mg/dL Normal 8.4-10.2 [facility] Comment on above: Performed By: #### C BCDIF, MG, TSH, CMET, LIPID, VITB12, HBA1C ####Unless otherwise noted, all testing performed by [address] [phone]: [id number] Director: David Mcclain M.D. Chloride 104 mmol/L Normal 98-108 [facility] Comment on above: Performed By: #### C BCDIF, MG, TSH, CMET, LIPID, VITB12, HBA1C ####Unless otherwise noted, all testing performed by [address] [phone]: [id number] Director: David Mcclain M.D. CO2 23 mmol/L Normal 21-32 [facility] Comment on above: Performed By: #### C BCDIF, MG, TSH, CMET, LIPID, VITB12, HBA1C ####Unless otherwise noted, all testing performed by [address] [phone]: [id number] Director: David Mcclain M.D. Creatinine 0.94 mg/dL Normal 0.40-1.10 [facility] Comment on above: Performed By: #### C BCDIF, MG, TSH, CMET, LIPID, VITB12, HBA1C ####Unless otherwise noted, all testing performed by [address] [phone]: [id number] Director: David Mcclain M.D. eGFR (black) mL/min/{1.73_m2} Normal [facility] Comment on above: Result Comment: Afri can [place] GFR Calc Performed By: #### C BCDIF, MG, TSH, CMET, LIPID, VITB12, HBA1C ####Unless otherwise noted, all testing performed by [address] [phone]: [id number] Director: David Mcclain M.D. eGFR (non-black) mL/min/{1.73_m2} Normal [facility] Comment on above: Result Comment: Non- GFR [...] noted, all testing performed by [address] [phone]: [id number] Director: David Mcclain M.D. Glucose mass conc 128 mg/dL High 70-99 [facility] Comment on above: Result Comment: This test result might be falsely depressed or falsely elevated onsamples drawn from patients taking Sulfasalazine and Sulfapyridine.Venipuncture should occur prior to taking either of these drugs. Performed By: #### C BCDIF, MG, TSH, CMET, LIPID, VITB12, HBA1C ####Unless otherwise noted, all testing performed by [address] [phone]: [id number] Director: David Mcclain M.D. Potassium molar conc 3.5 mmol/L Normal 3.5-5.[address] [facility] Comment on above: Performed By: #### C BCDIF, MG, TSH, CMET, LIPID, VITB12, HBA1C ####Unless otherwise noted, all testing performed by [address] [phone]: [id number] Director: David Mcclain M.D. Protein 7.8 g/dL Normal 6.0-8.0 [facility] Comment on above: Performed By: #### C BCDIF, MG, TSH, CMET, LIPID, VITB12, HBA1C ####Unless otherwise noted, all testing performed by [address] [phone]: [id number] Director: David Mcclain M.D. Sodium 141 mmol/L Normal 135-145 [facility] Comment on above: Performed By: #### C BCDIF, MG, TSH, CMET, LIPID, VITB12, HBA1C ####Unless otherwise noted, all testing performed by [address] [phone]: [id number] Director: David Mcclain M.D. Urea nitrogen 15 mg/dL Normal 8-25 [facility] Comment on above: Performed By: #### C BCDIF, MG, TSH, CMET, LIPID, VITB12, HBA1C ####Unless otherwise noted, all testing performed by [address] [phone]: [id number] Director: David Mcclain M.D. Hemoglobin A1Con 04-17-2017 Hemoglobin A1c/Hemoglobin.total mass fraction (Bld) 5.7 % Normal 4.1-6.5 [facility] Comment on above: Performed By: #### C BCWOD, CMET, LIPID, HBA1C ####Unless otherwise noted, all testing performed by [address] [phone]: [id number] Director: David Mcclain M.D. Lipid Panelon 04-17-2017 Cholesterol 135 mg/dL Normal 100-199 [facility] Comment on above: Performed By: #### C BCDIF, MG, TSH, CMET, LIPID, VITB12, HBA1C ####Unless otherwise noted, all testing performed by [address] [phone]: [id number] Director: David Mcclain M.D. Cholesterol in VLDL mass conc 27 mg/dL Normal 5-40 [facility] Comment on above: Performed By: #### C BCDIF, MG, TSH, CMET, LIPID, VITB12, HBA1C ####Unless otherwise noted, all testing performed by [address] [phone]: [id number] Director: David Mcclain M.D. Cholesterol to HDL Ratio 2.6 {ratio} Low 3.2-5.0 [facility] Comment on above: Result Comment: [place] Coronary Heart Disease Risk Factor (CHDRF):Average risk= 4.41/2 Average risk= 3.32 times Average risk= 7.1 Performed By: #### C BCDIF, MG, TSH, CMET, LIPID, VITB12, HBA1C ####Unless otherwise noted, all testing performed by [address] [phone]: [id number] Director: David Mcclain M.D. HDL Cholesterol 52 mg/dL Normal 40-59 [facility] Comment on above: Performed By: #### C BCDIF, MG, TSH, CMET, LIPID, VITB12, HBA1C ####Unless otherwise noted, all testing performed by [address] [phone]: [id number] Director: David Mcclain M.D. LDL Cholesterol 56 mg/dL Normal 10-150 [facility] Comment on above: Performed By: #### C BCDIF, MG, TSH, CMET, LIPID, VITB12, HBA1C ####Unless otherwise noted, all testing performed by [address] [phone]: [id number] Director: David Mcclain M.D. Triglyceride 134 mg/dL High 25-120 [facility] Comment on above: Performed By: #### C BCDIF, MG, TSH, CMET, LIPID, VITB12, HBA1C ####Unless otherwise noted, all testing performed by [address] [phone]: [id number] Director: David Mcclain M.D. Magnesiumon 04-17-2017 Magnesium 2.4 mg/dL Normal 1.6-2.4 [facility] Comment on above: Performed By: #### C BCDIF, MG, TSH, CMET, LIPID, VITB12, HBA1C ####Unless otherwise noted, all testing performed by [address] [phone]: [id number] Director: David Mcclain M.D. TSHon 04-17-2017 Thyroid stimulating hormone (TSH) 2.87 uIU/mL Normal 0.320-5.000 [facility] Comment on above: Result Comment: Samp les from patients routinely receiving high dose biotin therapy(100-300 mg/day) may show falsely decreased results. Please correlateclinically. Performed By: #### C BCDIF, MG, TSH, CMET, LIPID, VITB12, HBA1C ####Unless otherwise noted, all testing performed by [address] [phone]: [id number] Director: David Mcclain M.D. Vitamin B12on 04-17-2017 Cobalamins (Vitamin B12) 557 pg/mL Normal 193-986 [facility] Comment on above: Performed By: #### C BCDIF, MG, TSH, CMET, LIPID, VITB12, HBA1C ####Unless otherwise noted, all testing performed by [address] [phone]: [id number] Director: David Mcclain M.D. CBCon 04-09-2017 Erythrocyte distribution width Auto Ratio (RBC) 14.1 % Normal 10.0-14.4 [facility] Comment on above: Performed By: #### C BCWOD, CMET, LIPID, HBA1C ####Unless otherwise noted, all testing performed by [address] [phone]: [id number] Director: David Mcclain M.D. Erythrocytes (RBC) 4.31 M/mcL Invalid Interpretation Code 3.7 - 5.0 [facility] Hematocrit (HCT) 38.1 % Normal 34.4-44.8 [facility] Comment on above: Performed By: #### C BCWOD, CMET, LIPID, HBA1C ####Unless otherwise noted, all testing performed by [address] [phone]: [id number] Director: David Mcclain M.D. Hemoglobin mass conc (Bld) 12.6 g/dL Normal 11.6-15.4 [facility] Comment on above: Performed By: #### C BCWOD, CMET, LIPID, HBA1C ####Unless otherwise noted, all testing performed by [address] [phone]: [id number] Director: David Mcclain M.D. MCH 29.3 pg Normal 27.9-33.9 [facility] Comment on above: Performed By: #### C BCWOD, CMET, LIPID, HBA1C ####Unless otherwise noted, all testing performed by [address] [phone]: [id number] Director: David Mcclain M.D. MCHC mass conc (RBC) 33.1 g/dL Normal 33.1-35.1 [facility] Comment on above: Performed By: #### C BCWOD, CMET, LIPID, HBA1C ####Unless otherwise noted, all testing performed by [address] [phone]: [id number] Director: David Mcclain M.D. MCV 88.4 fL Normal 82.6-98.9 [facility] Comment on above: Performed By: #### C BCWOD, CMET, LIPID, HBA1C ####Unless otherwise noted, all testing performed by [address] [phone]: [id number] Director: David Mcclain M.D. Platelet mean volume (PMV) 8.4 fL Normal 7.0-10.6 [facility] Comment on above: Performed By: #### C BCWOD, CMET, LIPID, HBA1C ####Unless otherwise noted, all testing performed by [address] [phone]: [id number] Director: David Mcclain M.D. Platelets 256 K/mcL Invalid Interpretation Code 162 - 402 [facility] WBC (Leukocytes) 4.2 K/mcL Invalid Interpretation Code 3.4 - 10.6 [facility] CBC w/o Diffon 04-09-2017 Erythrocytes (RBC) 4.31 M/mcL Normal 3.7-5.0 [facility] Comment on above: Performed By: #### C BCWOD, CMET, LIPID, HBA1C ####Unless otherwise noted, all testing performed by [address] [phone]: [id number] Director: David Mcclain M.D. Platelets 256 K/mcL Normal 162-402 [facility] Comment on above: Performed By: #### C BCWOD, CMET, LIPID, HBA1C ####Unless otherwise noted, all testing performed by [address] [phone]: [id number] Director: David Mcclain M.D. WBC (Leukocytes) 4.2 K/mcL Normal 3.4-10.6 [facility] Comment on above: Performed By: #### C BCWOD, CMET, LIPID, HBA1C ####Unless otherwise noted, all testing performed by [address] [phone]: [id number] Director: David Mcclain M.D. [facility] 04-09-2017 Alanine aminotransferase (ALT) 28 U/L Normal 14-65 [facility] Comment on above: Cancelled on LAS :De lete This test result might be falsely depressed or falsely elevated on samples drawn from patients taking Sulfasalazine and Sulfapyridine. Venipuncture should occur prior to taking either of these drugs. Result Comment: Canc elled on LAS :OmerteThis test result might be falsely depressed or falsely elevated onsamples drawn from patients taking Sulfasalazine and Sulfapyridine.Venipuncture should occur prior to taking either of these drugs. Performed By: #### C BCWOD, CMET, LIPID, HBA1C ####Unless otherwise noted, all testing performed by [address] [phone]: [id number] Director: David Mcclain M.D. Albumin 3.0 g/dL Low 3.2-5.2 [facility] Comment on above: Cancelled on LAS :De lete Result Comment: Canc elled on LAS :Delete Performed By: #### C BCWOD, CMET, LIPID, HBA1C ####Unless otherwise noted, all testing performed by [address], [place] [phone]: [id number] Director: David Mcclain M.D. Alkaline phosphatase (ALP) 41 U/L Normal 40-150 [facility] Comment on above: Cancelled on LAS :De lete Result Comment: Canc elled on LAS :Delete Performed By: #### C BCWOD, CMET, LIPID, HBA1C ####Unless otherwise noted, all testing performed by [address], [place] [phone]: [id number] Director: David Mcclain M.D. Aspartate aminotransferase (AST) 16 U/L Normal 0-45 [facility] Comment on above: Cancelled on [...] ####Unless otherwise noted, all testing performed by [address], [place] [phone]: [id number] Director: David Mcclain M.D. Bilirubin (total) 0.4 mg/dL Normal 0.3-1.2 [facility] Comment on above: Cancelled on LAS :De lete Result Comment: Canc elled on LAS :Delete Performed By: #### C BCWOD, CMET, LIPID, HBA1C ####Unless otherwise noted, all testing performed by [address] [phone]: [id number] Director: David Mcclain M.D. Calcium 8.7 mg/dL Normal 8.4-10.2 [facility] Comment on above: Cancelled on LAS :De lete Result Comment: Canc elled on LAS :Delete Performed By: #### C BCWOD, CMET, LIPID, HBA1C ####Unless otherwise noted, all testing performed by [address] [phone]: [id number] Director: David Mcclain M.D. Chloride 106 mmol/L Normal 98-108 [facility] Comment on above: Cancelled on LAS :De lete Result Comment: Canc elled on LAS :Delete Performed By: #### C BCWOD, CMET, LIPID, HBA1C ####Unless otherwise noted, all testing performed by [address] [phone]: [id number] Director: David Mcclain M.D. CO2 26 mmol/L Normal 21-32 [facility] Comment on above: Cancelled on LAS :De lete Result Comment: Canc elled on LAS :Delete Performed By: #### C BCWOD, CMET, LIPID, HBA1C ####Unless otherwise noted, all testing performed by [address], [place] [phone]: [id number] Director: David Mcclain M.D. Creatinine 0.73 mg/dL Normal 0.40-1.10 [facility] Comment on above: Cancelled on LAS :De lete Result Comment: Canc elled on LAS :Delete Performed By: #### C BCWOD, CMET, LIPID, HBA1C ####Unless otherwise noted, all testing performed by [address] [phone]: [id number] Director: David Mcclain M.D. eGFR (black) mL/min/{1.73_m2} Normal [facility] Comment on above: GFR Calc Result Comment: Afri can [place] GFR Calc Performed By: #### C BCWOD, CMET, LIPID, HBA1C ####Unless otherwise noted, all testing performed by [address] [phone]: [id number] Director: David Mcclain M.D. eGFR (non-black) mL/min/{1.73_m2} Normal [facility] Comment on above: Non- GFR Calc [...] noted, all testing performed by [address] [phone]: [id number] Director: David Mcclain M.D. Glucose mass conc 93 mg/dL Normal 70-99 [facility] Comment on above: Cancelled on LAS [...] ####Unless otherwise noted, all testing performed by [address], [place] [phone]: [id number] Director: David Mcclain M.D. Potassium molar conc 3.9 mmol/L Normal 3.5-5.1 [facility] Comment on above: Cancelled on LAS :De lete Result Comment: Canc elled on LAS :Delete Performed By: #### C BCWOD, CMET, LIPID, HBA1C ####Unless otherwise noted, all testing performed by [address], [place] [phone]: [id number] Director: David Mcclain M.D. Protein 6.4 g/dL Normal 6.0-8.0 [facility] Comment on above: Cancelled on LAS :De lete Result Comment: Canc elled on LAS :Delete Performed By: #### C BCWOD, CMET, LIPID, HBA1C ####Unless otherwise noted, all testing performed by [address], [place] [phone]: [id number] Director: David Mcclain M.D. Sodium 140 mmol/L Normal 135-145 [facility] Comment on above: Cancelled on LAS :De lete Result Comment: Canc elled on LAS :Delete Performed By: #### C BCWOD, CMET, LIPID, HBA1C ####Unless otherwise noted, all testing performed by [address] [phone]: [id number] Director: David Mcclain M.D. Urea nitrogen 9 mg/dL Normal 8-25 [facility] Comment on above: Cancelled on LAS :De lete Result Comment: Canc elled on LAS :Delete Performed By: #### C BCWOD, CMET, LIPID, HBA1C ####Unless otherwise noted, all testing performed by [address] [phone]: [id number] Director: David Mcclain M.D. Hemoglobin A1con 04-09-2017 Hemoglobin A1c/Hemoglobin.total mass fraction (Bld) 5.6 % Normal 4.1-6.5 [facility] Comment on above: Performed By: #### C BCWOD, CMET, LIPID, HBA1C ####Unless otherwise noted, all testing performed by [address] [phone]: [id number] Director: David Mcclain M.D. Lipid Panelon 04-09-2017 Cholesterol 104 mg/dL Normal 100-199 [facility] Comment on above: Cancelled on LAS :De lete Result Comment: Canc elled on LAS :Delete Performed By: #### C BCWOD, CMET, LIPID, HBA1C ####Unless otherwise noted, all testing performed by [address] [id number]: [id number] Director: David Mcclain M.D. Cholesterol in VLDL mass conc 32 mg/dL Normal 5-40 [facility] Comment on above: Performed By: #### C BCWOD, CMET, LIPID, HBA1C ####Unless otherwise noted, all testing performed by [address] [id number]: [id number] Director: David Mcclain M.D. Cholesterol to HDL Ratio 2.5 {ratio} Low 3.2-5.0 [facility] Comment on above: Female Coronary Hear t Disease Risk Factor (CHDRF): Average risk= 4.4 1/2 Average risk= 3.3 2 times Average risk= 7.1 Result Comment: Fema le Coronary Heart Disease Risk Factor (CHDRF):Average risk= 4.41/2 Average risk= 3.32 times Average risk= 7.1 Performed By: #### C BCWOD, CMET, LIPID, HBA1C ####Unless otherwise noted, all testing performed by [address] [id number]: [id number] Director: David Mcclain M.D. HDL Cholesterol 41 mg/dL Normal 40-59 [facility] Comment on above: Cancelled on LAS :De lete Result Comment: Canc elled on LAS :Delete Performed By: #### C BCWOD, CMET, LIPID, HBA1C ####Unless otherwise noted, all testing performed by [address] [id number]: [id number] Director: David Mcclain M.D. Interpretation and review of laboratory results Abnormal Invalid Interpretation Code [facility] LDL Cholesterol 31 mg/dL Normal 10-150 [facility] Comment on above: Performed By: #### C BCWOD, CMET, LIPID, HBA1C ####Unless otherwise noted, all testing performed by [address] [id number]: [id number] Director: David Mcclain M.D. Triglyceride 159 mg/dL High 25-120 [facility] Comment on above: Cancelled on LAS :De lete Result Comment: Canc elled on LAS :Delete Performed By: #### C BCWOD, CMET, LIPID, HBA1C ####Unless otherwise noted, all testing performed by [place] [address] [place], [place] [id number]: [id number] Director: David Mcclain M.D. Vital Signs Date Time Vital Sign Value Performing Clinician Facility 01-11-2025 09:19-0400 Diastolic blood pressure 84 mm[Hg] David Ortiz MD Work Phone: [facility] 01-11-2025 09:19-0400 Heart rate 84 /min David Ortiz MD Work Phone: [facility] 01-11-2025 09:19-0400 Respiratory rate 16 /min David Ortiz MD Work Phone: [facility] 01-11-2025 09:19-0400 SaO2% (BldA) [Mass fraction] 94 % David Ortiz MD Work Phone: [facility] 01-11-2025 09:19-0400 Systolic blood pressure 132 mm[Hg] David Ortiz MD Work Phone: [facility] 01-05-2025 09:29-0400 Body mass index (BMI) [Ratio] 27.99 kg/m2 Mg Jacinta DO Work Phone: [facility] 01-05-2025 09:29-0400 Body temperature 98.1 [degF] Mg Jacinta DO Work Phone: [facility] 01-05-2025 09:29-0400 Body weight 71.67 kg Mg Jacinta DO Work Phone: [facility] 01-05-2025 09:29-0400 Diastolic blood pressure 84 mm[Hg] Mg Jacinta DO Work Phone: [facility] 01-05-2025 09:29-0400 Heart rate 79 /min Mg Jacinta DO Work Phone: [facility] 01-05-2025 09:29-0400 Respiratory rate 18 /min Mg Jacinta DO Work Phone: [facility] 01-05-2025 09:29-0400 SaO2% (BldA) [Mass fraction] 92 % Mg Jacinta DO Work Phone: [facility] 01-05-2025 09:29-0400 Systolic blood pressure 135 mm[Hg] Mg Jacinta DO Work Phone: [facility] 12-23-2024 10:01-0400 Body height 160 cm Mg Jacinta DO Work Phone: [facility] 12-23-2024 10:01-0400 Body mass index (BMI) [Ratio] 28.7 kg/m2 Mg Jacinta DO Work Phone: [facility] 12-23-2024 10:01-0400 Body weight 73.48 kg Mg Jacinta DO Work Phone: [facility] Comment on above: Taken 3 months ago 12-23-2024 10:01-0400 Diastolic blood pressure 80 mm[Hg] Mg Jacinta DO Work Phone: [facility] 12-23-2024 10:01-0400 Heart rate 76 /min Mg Jacinta DO Work Phone: [facility] 12-23-2024 10:01-0400 SaO2% (BldA) [Mass fraction] 95 % Mg Jacinta DO Work Phone: [facility] 12-23-2024 10:01-0400 Systolic blood pressure 130 mm[Hg] Mg Jacinta DO Work Phone: [facility] 12-21-2024 11:24-0400 Body temperature 98.2 [degF] Dr. Gamaliel Coats DO Work Phone: [facility] 12-21-2024 11:24-0400 Diastolic blood pressure 79 mm[Hg] Dr. Gamaliel Coats DO Work Phone: 2(647)799-683526 [place] [address] 12-21-2024 11:24-0400 Heart rate 83 /min Dr. Gamaliel Forrest Work Phone: 1(926)885-471826 [place] [address] 12-21-2024 11:24-0400 Respiratory rate 22 /min Dr. Gamaliel Forrest Work Phone: 1(764)221-926946 [place] [address] 12-21-2024 11:24-0400 SaO2% (BldA) [Mass fraction] 100 % Dr. Gamaliel Forrest Work Phone: 8(395)751-463546 [place] [address] 12-21-2024 11:24-0400 Systolic blood pressure 141 mm[Hg] Dr. Gamaliel Forrest Work Phone: 4(673)748-026646 [place] [address] 12-21-2024 05:15-0400 Body mass index (BMI) [Ratio] 31.1 kg/m2 Dr. Gamaliel Forrest Work Phone: 2(696)664-854726 [place] [address] 12-21-2024 05:15-0400 Body weight 76.[address] Gamaliel Forrest Work Phone: 2(100)958-434446 [place] [address] 12-20-2024 11:21-0400 Inhaled oxygen flow rate 3 L/min Dr. Gamaliel Forrest Work Phone: 4(707)621-824646 [place] [address] 12-19-2024 10:17-0400 Body height 157.[address] Gamaliel Forrest Work Phone: 4(648)643-319046 [place] [address] 12-18-2024 22:36-0400 Body temperature 98.4 [degF] Dr. Gamaliel Forrest Work Phone: 5(502)959-567326 [place] [address] 12-18-2024 22:36-0400 Diastolic blood pressure 88 mm[Hg] Dr. Gamaliel Forrest Work Phone: 3(205)366-759526 [place] [address] 12-18-2024 22:36-0400 Heart rate 109 /min Dr. Gamaliel Forrest Work Phone: 3(988)595-063226 [place] [address] 12-18-2024 22:36-0400 Respiratory rate 16 /min Dr. Gamaliel Forrest Work Phone: 1(422)119-700526 [place] [address] 12-18-2024 22:36-0400 SaO2% (BldA) [Mass fraction] 95 % Dr. Gamaliel Forrest Work Phone: [facility] 12-18-2024 22:36-0400 Systolic blood pressure 156 mm[Hg] Dr. Gamaliel Forrest Work Phone: [facility] 12-18-2024 21:35-0400 Body height 157.[address] Gamaliel Forrest Work Phone: [facility] 12-18-2024 21:35-0400 Body mass index (BMI) [Ratio] 28.7 kg/m2 Dr. Gamaliel Forrest Work Phone: [facility] 12-18-2024 21:35-0400 Body weight 71.[address] Gamaliel Forrest Work Phone: [facility] 12-18-2024 21:04-0400 Inhaled oxygen flow rate 3 L/min Dr. Gamaliel Forrest Work Phone: [facility] 11-11-2024 11:01-0400 Body height 160 cm Macros Barrera MD Work Phone: [facility] 11-11-2024 11:01-0400 Diastolic blood pressure 83 mm[Hg] Marcos Barrera MD Work Phone: [facility] 11-11-2024 11:01-0400 Heart rate 99 /min Marcos Barrera MD Work Phone: [facility] 11-11-2024 11:01-0400 Systolic blood pressure 136 mm[Hg] Marcos Barrera MD Work Phone: [facility] 10-25-2024 11:07-0400 Diastolic blood pressure 82 mm[Hg] Marci Lamin DPM Work Phone: [facility] 10-25-2024 11:07-0400 Heart rate 73 /min Marci Floyd DPM Work Phone: [facility] 10-25-2024 11:07-0400 Systolic blood pressure 134 mm[Hg] Marci Lamin DPM Work Phone: [facility] 10-25-2024 11:01-0400 Body temperature 98.29 [degF] Marci Lamin DPM Work Phone: [facility] 09-21-2024 10:37-0400 Body height 160 cm Mg Jacinta DO Work Phone: [facility] 09-21-2024 10:37-0400 Body mass index (BMI) [Ratio] 29.35 kg/m2 Mg Jacinta DO Work Phone: [facility] 09-21-2024 10:37-0400 Body temperature 98.01 [degF] Mg Jacinta DO Work Phone: [facility] 09-21-2024 10:37-0400 Body weight 75.16 kg Mg Jacinta DO Work Phone: [facility] 09-21-2024 10:37-0400 Diastolic blood pressure 85 mm[Hg] Mg Jacinta DO Work Phone: [facility] 09-21-2024 10:37-0400 Heart rate 79 /min Mg Jacinta DO Work Phone: [facility] 09-21-2024 10:37-0400 Respiratory rate 18 /min Mg Jacinta DO Work Phone: [facility] 09-21-2024 10:37-0400 SaO2% (BldA) [Mass fraction] 92 % Mg Jacinta DO Work Phone: [facility] 09-21-2024 10:37-0400 Systolic blood pressure 132 mm[Hg] Mg Jacinta DO Work Phone: [facility] 09-09-2024 14:10-0400 Body height 160 cm Marcos Barrera MD Work Phone: [facility] 09-09-2024 14:10-0400 Body mass index (BMI) [Ratio] 28.87 kg/m2 Marcos Barrera MD Work Phone: [facility] 09-09-2024 14:10-0400 Body weight 73.94 kg Marcos Barrera MD Work Phone: [facility] 09-09-2024 14:10-0400 Diastolic blood pressure 71 mm[Hg] Marcos Barrera MD Work Phone: [facility] 09-09-2024 14:10-0400 Heart rate 60 /min Marcos Barrera MD Work Phone: [facility] 09-09-2024 14:10-0400 Systolic blood pressure 105 mm[Hg] Marcos Barrera MD Work Phone: [facility] 07-29-2024 11:30-0500 Body height 160 cm Mg Jacinta DO Work Phone: [facility] 07-29-2024 11:30-0500 Body mass index (BMI) [Ratio] 28.34 kg/m2 Mg Jacinta DO Work Phone: [facility] 07-29-2024 11:30-0500 Body temperature 98.29 [degF] Mg Jacinta DO Work Phone: [facility] 07-29-2024 11:30-0500 Body weight 72.58 kg Mg Jacinta DO Work Phone: [facility] 07-29-2024 11:30-0500 Diastolic blood pressure 76 mm[Hg] Mg Jacinta DO Work Phone: [facility] 07-29-2024 11:30-0500 Heart rate 83 /min Mg Jacinta DO Work Phone: [facility] 07-29-2024 11:30-0500 Respiratory rate 17 /min Mg Jacinta DO Work Phone: [facility] 07-29-2024 11:30-0500 SaO2% (BldA) [Mass fraction] 94 % Mg Jacinta DO Work Phone: [facility] 07-29-2024 11:30-0500 Systolic blood pressure 135 mm[Hg] Mg Jacinta DO Work Phone: [facility] 07-27-2024 09:57-0500 Body temperature 98.4 [degF] Marci Floyd DPM Work Phone: [facility] 07-27-2024 09:57-0500 Diastolic blood pressure 78 mm[Hg] Marci Floyd DPM Work Phone: [facility] 07-27-2024 09:57-0500 Heart rate 86 /min Marci Floyd DPM Work Phone: [facility] 07-27-2024 09:57-0500 Systolic blood pressure 133 mm[Hg] Marci Lamin DPM Work Phone: [facility] 07-13-2024 09:53-0500 Diastolic blood pressure 83 mm[Hg] Mg Jacinta DO Work Phone: [facility] 07-13-2024 09:53-0500 Systolic blood pressure 136 mm[Hg] Mg Jacinta DO Work Phone: [facility] 07-13-2024 09:17-0500 Body height 160 cm Mg Jacinta DO Work Phone: [facility] 07-13-2024 09:17-0500 Body mass index (BMI) [Ratio] 28.34 kg/m2 Mg Jacinta DO Work Phone: [facility] 07-13-2024 09:17-0500 Body temperature 98.1 [degF] Mg Jacinta DO Work Phone: [facility] 07-13-2024 09:17-0500 Body weight 72.58 kg Mg Jacinta DO Work Phone: [facility] 07-13-2024 09:17-0500 Heart rate 81 /min Mg Jacinta DO Work Phone: [facility] 07-13-2024 09:17-0500 Respiratory rate 17 /min Mg Jacinta DO Work Phone: [facility] 07-13-2024 09:17-0500 SaO2% (BldA) [Mass fraction] 90 % Mg Jacinta DO Work Phone: [facility] 07-09-2024 12:08-0500 Diastolic blood pressure 86 mm[Hg] Ernie Mcnairune DO Work Phone: [facility] 07-09-2024 12:08-0500 Heart rate 84 /min Ernie Ying DO Work Phone: [facility] 07-09-2024 12:08-0500 Respiratory rate 17 /min Ernie Mcnairune DO Work Phone: [facility] 07-09-2024 12:08-0500 SaO2% (BldA) [Mass fraction] 97 % Ernie Coatsjeune DO Work Phone: [facility] 07-09-2024 12:08-0500 Systolic blood pressure 156 mm[Hg] Ernie Ying DO Work Phone: [facility] 07-09-2024 11:00-0500 Body temperature 98.49 [degF] Ernie Mcnairune DO Work Phone: [facility] 06-28-2024 12:46-0500 Body height 167.6 cm Rafa Oberhauser DO Work Phone: [facility] 06-28-2024 12:46-0500 Body mass index (BMI) [Ratio] 25.82 kg/m2 Rafa Oberhauser DO Work Phone: [facility] 06-28-2024 12:46-0500 Body weight 72.58 kg Rafa Oberhauser DO Work Phone: [facility] 06-28-2024 12:46-0500 Diastolic blood pressure 71 mm[Hg] Rafa Oberhauser DO Work Phone: [facility] 06-28-2024 12:46-0500 Heart rate 93 /min Rafa Oberhauser DO Work Phone: [facility] 06-28-2024 12:46-0500 Systolic blood pressure 129 mm[Hg] Rafa Oberhauser DO Work Phone: [facility] 06-23-2024 14:00-0500 Diastolic blood pressure 83 mm[Hg] Mg Jacinta DO Work Phone: [facility] 06-23-2024 14:00-0500 Systolic blood pressure 134 mm[Hg] Mg Jacinta DO Work Phone: [facility] 06-23-2024 13:02-0500 Body height 160 cm Mg Jacinta DO Work Phone: [facility] 06-23-2024 13:02-0500 Body mass index (BMI) [Ratio] 28.34 kg/m2 Mg Jacinta DO Work Phone: [facility] 06-23-2024 13:02-0500 Body temperature 98.6 [degF] Mg Jacinta DO Work Phone: [facility] 06-23-2024 13:02-0500 Body weight 72.58 kg Mg Jacinta DO Work Phone: [facility] 06-23-2024 13:02-0500 Heart rate 92 /min Mg Jacinta DO Work Phone: [facility] 06-23-2024 13:02-0500 Respiratory rate 16 /min Mg Jacinta DO Work Phone: [facility] 06-23-2024 13:02-0500 SaO2% (BldA) [Mass fraction] 91 % Mg Jacinta DO Work Phone: [facility] 04-27-2024 10:09-0500 Body temperature 98.2 [degF] Marci Lamin DPM Work Phone: [facility] 04-27-2024 10:09-0500 Diastolic blood pressure 85 mm[Hg] Marci Floyd DPM Work Phone: [facility] 04-27-2024 10:09-0500 Heart rate 86 /min Marci Lamin DPM Work Phone: [facility] 04-27-2024 10:09-0500 Systolic blood pressure 130 mm[Hg] Marci Lamin DPM Work Phone: [facility] 03-29-2024 12:42-0400 Body height 167.6 cm Rafa Oberhauser DO Work Phone: [facility] 03-29-2024 12:42-0400 Diastolic blood pressure 80 mm[Hg] Rafa Oberhauser DO Work Phone: [facility] 03-29-2024 12:42-0400 Heart rate 89 /min Rafa Oberhauser DO Work Phone: [facility] 03-29-2024 12:42-0400 Systolic blood pressure 128 mm[Hg] Rafa Oberhauser DO Work Phone: [facility] 02-05-2024 10:28-0400 Body height 167.6 cm Kenyetta Babak [employer] Work Phone: [facility] 02-05-2024 10:28-0400 Body mass index (BMI) [Ratio] 25.82 kg/m2 Kenyetta Babak [employer] Work Phone: [facility] 02-05-2024 10:28-0400 Body weight 72.58 kg Kenyetta Babak [employer] Work Phone: [facility] 02-05-2024 10:28-0400 Diastolic blood pressure 85 mm[Hg] Kenyetta Babak [employer] Work Phone: [facility] 02-05-2024 10:28-0400 Heart rate 83 /min Kenyetta Babak [employer] Work Phone: [facility] 02-05-2024 10:28-0400 Systolic blood pressure 137 mm[Hg] Kenyetta Babak [employer] Work Phone: [facility] 02-03-2024 10:46-0400 Body height 165.1 cm Sachin Morales MD Work Phone: [facility] 02-03-2024 10:46-0400 Body mass index (BMI) [Ratio] 25.63 kg/m2 Sachin Morales MD Work Phone: [facility] 02-03-2024 10:46-0400 Body weight 69.85 kg Sachin Morales MD Work Phone: [facility] 01-29-2024 09:55-0400 Diastolic blood pressure 67 mm[Hg] Christiano Trujillo MD Work Phone: [facility] 01-29-2024 09:55-0400 Heart rate 83 /min Christiano Trujillo MD Work Phone: [facility] 01-29-2024 09:55-0400 Respiratory rate 18 /min Chrsitiano Trujillo MD Work Phone: [facility] 01-29-2024 09:55-0400 SaO2% (BldA) [Mass fraction] 96 % Christiano Trujillo MD Work Phone: [facility] 01-29-2024 09:55-0400 Systolic blood pressure 123 mm[Hg] Christiano Trujillo MD Work Phone: [facility] 01-29-2024 06:56-0400 Body height 167.6 cm Christiano rTujillo MD Work Phone: [facility] 01-29-2024 06:56-0400 Body mass index (BMI) [Ratio] 24.61 kg/m2 Christiano Trujillo MD Work Phone: [facility] 01-29-2024 06:56-0400 Body temperature 97 [degF] Christiano Trujillo MD Work Phone: [facility] 01-29-2024 06:56-0400 Body weight 69.17 kg Christiano Trujillo MD Work Phone: [facility] 01-26-2024 14:02-0400 Diastolic blood pressure 83 mm[Hg] Marci Floyd DPM Work Phone: [facility] 01-26-2024 14:02-0400 Heart rate 92 /min Marci Floyd DPM Work Phone: [facility] 01-26-2024 14:02-0400 Systolic blood pressure 144 mm[Hg] Marci Lamin DPM Work Phone: [facility] 01-26-2024 13:49-0400 Body temperature 98.4 [degF] Marci Lamin DPM Work Phone: [facility] 01-21-2024 10:36-0400 Diastolic blood pressure 77 mm[Hg] Huy Vasquez PA-C Work Phone: [facility] 01-21-2024 10:36-0400 Heart rate 95 /min Huy Vasquez PA-C Work Phone: [facility] 01-21-2024 10:36-0400 SaO2% (BldA) [Mass fraction] 96 % Huy Vasquez PA-C Work Phone: [facility] 01-21-2024 10:36-0400 Systolic blood pressure 159 mm[Hg] Huy Vasquez PA-C Work Phone: [facility] 01-08-2024 09:26-0400 Diastolic blood pressure 85 mm[Hg] David Ortiz MD Work Phone: [facility] 01-08-2024 09:26-0400 Heart rate 100 /min David Ortiz MD Work Phone: [facility] 01-08-2024 09:26-0400 Respiratory rate 16 /min David Ortiz MD Work Phone: [facility] 01-08-2024 09:26-0400 SaO2% (BldA) [Mass fraction] 92 % David Ortiz MD Work Phone: [facility] 01-08-2024 09:26-0400 Systolic blood pressure 147 mm[Hg] David Ortiz MD Work Phone: [facility] 12-29-2023 16:43-0400 Body height 157.5 cm Rafa Jacinto DO Work Phone: [facility] 12-29-2023 16:43-0400 Body mass index (BMI) [Ratio] 28.53 kg/m2 Rafa Oberhauser DO Work Phone: [facility] 12-29-2023 16:43-0400 Body weight 70.76 kg Rafa Oberhauser DO Work Phone: [facility] 12-29-2023 16:43-0400 Diastolic blood pressure 82 mm[Hg] Rafa Oberhauser DO Work Phone: [facility] 12-29-2023 16:43-0400 Heart rate 101 /min Rafa Oberhauser DO Work Phone: [facility] 12-29-2023 16:43-0400 Systolic blood pressure 139 mm[Hg] Rafa Oberhauser DO Work Phone: [facility] 12-24-2023 09:35-0400 Body height 165.1 cm Sachin Morales MD Work Phone: [facility] 12-17-2023 08:04-0400 Body height 157.5 cm Kenyetta Babak [employer] Work Phone: [facility] 12-17-2023 08:04-0400 Body mass index (BMI) [Ratio] 28.17 kg/m2 Kenyetta Babak [employer] Work Phone: [facility] 12-17-2023 08:04-0400 Body weight 69.85 kg Kenyetta Babak [employer] Work Phone: [facility] 12-17-2023 08:04-0400 Diastolic blood pressure 78 mm[Hg] Kenyetta Babak [employer] Work Phone: [facility] 12-17-2023 08:04-0400 Heart rate 72 /min Kenyetta Babak [employer] Work Phone: [facility] 12-17-2023 08:04-0400 Systolic blood pressure 144 mm[Hg] Kenyetta Babak [employer] Work Phone: [facility] 12-16-2023 13:56-0400 Body height 165.1 cm Shante Morocho RN [employer] Work Phone: [facility] 12-16-2023 13:56-0400 Body mass index (BMI) [Ratio] 25.63 kg/m2 Shante Morocho RN [employer] Work Phone: [facility] 12-16-2023 13:56-0400 Body weight 69.85 kg Shante Morocho RN [employer] Work Phone: [facility] 12-16-2023 13:56-0400 Diastolic blood pressure 81 mm[Hg] Shante Morocho RN [employer]SP[employer] Work Phone: [facility] 12-16-2023 13:56-0400 Heart rate 90 /min Shante Morocho RN [employer] Work Phone: [facility] 12-16-2023 13:56-0400 SaO2% (BldA) [Mass fraction] 96 % Shante Morocho RN [employer] Work Phone: [facility] 12-16-2023 13:56-0400 Systolic blood pressure 135 mm[Hg] Shante Morocho RN [employer] Work Phone: [facility] 12-04-2023 11:46-0400 Diastolic blood pressure 63 mm[Hg] Jasmyn Luisersen DO Work Phone: [facility] 12-04-2023 11:46-0400 Heart rate 97 /min Jasmyn Luisersen DO Work Phone: [facility] 12-04-2023 11:46-0400 Respiratory rate 16 /min Jasmyn Luisersen DO Work Phone: [facility] 12-04-2023 11:46-0400 SaO2% (BldA) [Mass fraction] 96 % Jasmyn Luisersen DO Work Phone: [facility] 12-04-2023 11:46-0400 Systolic blood pressure 177 mm[Hg] Jasmyn Luisersen DO Work Phone: [facility] 12-04-2023 11:15-0400 Body temperature 96.8 [degF] Jasmyn Wade DO Work Phone: [facility] 12-04-2023 09:04-0400 Body height 157.5 cm Jasmyn Wade DO Work Phone: [facility] 12-04-2023 09:04-0400 Body mass index (BMI) [Ratio] 25.97 kg/m2 Jasmyn Wade DO Work Phone: [facility] 12-04-2023 09:04-0400 Body weight 64.41 kg Jasmyn Wade DO Work Phone: [facility] 10-14-2023 08:15-0400 Body temperature 97 [degF] Marci Floyd DPM Work Phone: [facility] 10-14-2023 08:15-0400 Diastolic blood pressure 83 mm[Hg] Marci Lamin DPM Work Phone: [facility] 10-14-2023 08:15-0400 Heart rate 96 /min Marci Lamin DPM Work Phone: [facility] 10-14-2023 08:15-0400 Systolic blood pressure 159 mm[Hg] Marci Lamin DPM Work Phone: [facility] 07-15-2023 08:42-0500 Body temperature 97.9 [degF] Marci Lamin DPM Work Phone: [facility] 07-15-2023 08:42-0500 Diastolic blood pressure 80 mm[Hg] Marci Lamin DPM Work Phone: [facility] 07-15-2023 08:42-0500 Heart rate 89 /min Marci Lamin DPM Work Phone: [facility] 07-15-2023 08:42-0500 Systolic blood pressure 136 mm[Hg] Marci Floyd DPM Work Phone: [facility] 06-23-2023 10:52-0500 Diastolic blood pressure 88 mm[Hg] David Ortiz MD Work Phone: [facility] 06-23-2023 10:52-0500 Heart rate 83 /min David Ortiz MD Work Phone: [facility] 06-23-2023 10:52-0500 SaO2% (BldA) [Mass fraction] 97 % David Ortiz MD Work Phone: [facility] 06-23-2023 10:52-0500 Systolic blood pressure 122 mm[Hg] David Ortiz MD Work Phone: [facility] 04-21-2023 13:09-0500 Body height 157.5 cm Rafa Oberhauser DO Work Phone: [facility] 04-21-2023 13:09-0500 Body mass index (BMI) [Ratio] 24.14 kg/m2 Rafa Oberhauser DO Work Phone: [facility] 04-21-2023 13:09-0500 Body weight 59.88 kg Rafa Oberhauser DO Work Phone: [facility] 04-21-2023 13:09-0500 Diastolic blood pressure 78 mm[Hg] Rafa Oberhauser DO Work Phone: [facility] 04-21-2023 13:09-0500 Heart rate 95 /min Rafa Oberhauser DO Work Phone: [facility] 04-21-2023 13:09-0500 Systolic blood pressure 127 mm[Hg] Rafa Oberhauser DO Work Phone: [facility] 12-19-2022 11:38-0400 Diastolic blood pressure 76 mm[Hg] David Ortiz MD Work Phone: [facility] 12-19-2022 11:38-0400 Heart rate 79 /min David Ortiz MD Work Phone: [facility] 12-19-2022 11:38-0400 SaO2% (BldA) [Mass fraction] 91 % David Ortiz MD Work Phone: [facility] 12-19-2022 11:38-0400 Systolic blood pressure 117 mm[Hg] David Ortiz MD Work Phone: [facility] 10-08-2022 02:02-0400 Diastolic blood pressure 37 mm[Hg] Antwan Maharaj Other Phone: [facility] 10-08-2022 02:02-0400 Heart rate 86 /min Antwan Maharaj Other Phone: [facility] 10-08-2022 02:02-0400 Respiratory rate 16 /min Antwan Maharaj Other Phone: [facility] 10-08-2022 02:02-0400 SaO2% (BldA) [Mass fraction] 94 % Antwan Maharaj Other Phone: [facility] 10-08-2022 02:02-0400 Systolic blood pressure 91 mm[Hg] Antwan Maharaj Other Phone: [facility] 08-18-2022 16:48-0400 Diastolic blood pressure 76 mm[Hg] Antwan Maharaj Other Phone: [facility] 08-18-2022 16:48-0400 Heart rate 84 /min Antwan Maharaj Other Phone: [facility] 08-18-2022 16:48-0400 Respiratory rate 18 /min Antwan Maharaj Other Phone: [facility] 08-18-2022 16:48-0400 SaO2% (BldA) [Mass fraction] 95 % Antwan Maharaj Other Phone: [facility] 08-18-2022 16:48-0400 Systolic blood pressure 164 mm[Hg] Antwan Maharaj Other Phone: [facility] 08-18-2022 14:37-0400 Body temperature 98.06 [degF] Antwan Maharaj Other Phone: [facility] 08-18-2022 14:37-0400 Body weight 60.5 kg Antwan Maharaj Other Phone: [facility] 08-09-2022 13:35-0500 Diastolic blood pressure 71 mm[Hg] Antwan Harrietcory Other Phone: [facility] 08-09-2022 13:35-0500 Heart rate 74 /min Antwan Carol Ann Other Phone: [facility] 08-09-2022 13:35-0500 Respiratory rate 18 /min Antwan Maharaj Other Phone: [facility] 08-09-2022 13:35-0500 SaO2% (BldA) [Mass fraction] 97 % Antwan Maharaj Other Phone: [facility] 08-09-2022 13:35-0500 Systolic blood pressure 132 mm[Hg] Antwan Carol Ann Other Phone: [facility] 08-09-2022 11:23-0500 Body height 157.4 cm Antwan Harrietcory Other Phone: [facility] 08-09-2022 11:23-0500 Body temperature 98.06 [degF] Antwan Carol Ann Other Phone: [facility] 08-09-2022 11:23-0500 Body weight 60 kg Antwan Gusdomo Other Phone: [facility] 08-01-2022 10:27-0500 Body height 162.6 cm David Ortiz MD Work Phone: [facility] 08-01-2022 10:27-0500 Body mass index (BMI) [Ratio] 22.83 kg/m2 David Ortiz MD Work Phone: [facility] 08-01-2022 10:27-0500 Body weight 60.33 kg David Ortiz MD Work Phone: [facility] 08-01-2022 10:27-0500 Diastolic blood pressure 75 mm[Hg] David Ortiz MD Work Phone: [facility] 08-01-2022 10:27-0500 Heart rate 80 /min David Ortiz MD Work Phone: [facility] 08-01-2022 10:27-0500 Respiratory rate 16 /min David Ortiz MD Work Phone: [facility] 08-01-2022 10:27-0500 SaO2% (BldA) [Mass fraction] 95 % David Ortiz MD Work Phone: [facility] 08-01-2022 10:27-0500 Systolic blood pressure 113 mm[Hg] David Ortiz MD Work Phone: [facility] 04-27-2019 13:37-0500 BMI (Body Mass Index) 19.4 kg/m2 Ti Rhodes [facility] 04-27-2019 13:37-0500 Body weight 51.26 kg Tijackie Rhodes [facility] 04-27-2019 13:37-0500 Height 162.6 cm Tijackie Rhodes [facility] Encounters Encounter Date Encounter Type Care Provider Facility Start: 01-11-2025 End: 01-11-2025 ambulatory PROVIDER NOT IN SYSTEM [facility] Start: 01-11-2025 End: 01-11-2025 Office outpatient new 45 minutes David Ortiz MD Work Phone: [facility] Comment on above: Parkinson disease (H CC) Start: 01-11-2025 End: 01-11-2025 ambulatory DAVID ORTIZ [facility] Start: 01-07-2025 End: 01-12-2025 Refill Mg Evans DO Work Phone: [facility] Start: 01-05-2025 End: 01-05-2025 ambulatory MG Mason JACINTA [facility] Start: 01-05-2025 End: 01-05-2025 Office outpatient visit 25 minutes Mg Evans DO Work Phone: [facility] Comment on above: Type 2 diabetes susi itus without complication, without long- term current use of insulin (HCC) (Primary Dx); Encounter for screening mammogram for malignant neoplasm of breast; Stage 3a chronic kidney disease (HCC); Constipation, unspecified constipation type; Aggression Start: 12-23-2024 End: 12-23-2024 Office outpatient visit 25 minutes Mg Evans DO Work Phone: [facility] Comment on above: Type 2 diabetes susi itus without complication, without long- term current use of insulin (HCC) (Primary Dx); Mixed hyperlipidemia Start: 12-23-2024 End: 12-23-2024 ambulatory GM EVANS [facility] Start: 12-21-2024 Non-patient / Non-visit Dr. Ariana ARAUZ [facility] Work Phone: Start: 12-20-2024 ambulatory [facility] [place] Start: 12-20-2024 Non-patient / Non-visit Dr. Ariana ARAUZ [facility] Work Phone: Start: 12-19-2024 ambulatory [facility] [place] Start: 12-19-2024 End: 12-21-2024 Evaluation and management of inpatient Dr. Antwan Covington MD -Intensive Care Unit Work Phone: Start: 12-19-2024 Non-patient / Non-[facility] Work Phone: Start: 12-18-2024 ambulatory [facility] [place] Start: 12-18-2024 Evaluation and manag ement of inpatient Dr. Jayashree Florez DO -Progressive Care Unit Work Phone: Start: 12-18-2024 Non-patient / Non-visit Dr. Sury [facility] Work Phone: Start: 12-18-[address] Gamaliel Forrest Work Phone: -Progressive Care Unit Start: 12-06-2024 End: 12-07-2024 Refill Mg Evans DO Work Phone: [facility] Start: 11-17-2024 ambulatory MG EVANS [facility] Ambulatory Start: 11-11-2024 End: 11-11-2024 Office outpatient visit 15 minutes Marcos Barrera MD Work Phone: [facility] Comment on above: Gastroesophageal ref lux disease, unspecified whether esophagitis present (Primary Dx) Start: 11-11-2024 End: 11-11-2024 ambulatory MARCOS BARRERA [facility] Ambulatory Start: 10-25-2024 End: 10-25-2024 Patient encounter procedure Marci Fernándezr DPM Work Phone: [facility] Pod[facility] Comment on above: Onychomycosis (Prima ry Dx); Onychodystrophy; Diabetic peripheral neuropathy (HCC); Pain due to onychomycosis of toenail of right foot Start: 10-25-2024 End: 10-25-2024 ambulatory MARCI GIPSON LAMIN [facility] Start: 10-12-2024 End: 10-12-2024 Chart abstracting Mg Evans DO Work Phone: [facility] Start: 10-10-2024 End: 12-10-2024 Follow-up encounter Mg Evans DO Work Phone: [facility] Comment on above: MTB SCREEN Start: 09-30-2024 End: 09-30-2024 Orders Only Oren Araujo MD Work Phone: [facility] Comment on above: Type 2 diabetes susi itus without complication, without long- term current use of insulin (HCC) (Primary Dx) Start: 09-23-2024 End: 09-23-2024 Orders Only Mg Evans DO Work Phone: [facility] Comment on above: At risk for tubercul osis (Primary Dx) Start: 09-21-2024 End: 09-21-2024 Office outpatient visit 25 minutes Mg Evans DO Work Phone: [facility] Comment on above: Type 2 diabetes susi itus without complication, without long- term current use of insulin (HCC) (Primary Dx); Recurrent falls; Abnormal CT of the abdomen Start: 09-21-2024 End: 09-21-2024 ambulatory MG EVANS [facility] Start: 09-16-2024 End: 09-16-2024 Orders Only Mg Evans DO Work Phone: [facility] Start: 09-15-2024 End: 09-16-2024 Refill Mg Evans DO Work Phone: [facility] Start: 09-09-2024 End: 09-09-2024 Office outpatient new 30 minutes Mg Evans DO Work Phone: [facility] G[facility] Comment on above: Abnormal CT of the a bdomen Start: 09-09-2024 End: 09-09-2024 ambulatory MG EVANS [facility] Start: 09-08-2024 End: 09-12-2024 ambulatory Roderick Anuradha Movens PA-C Work Phone: [facility] Comment on above: Parkinson's disease, unspecified whether dyskinesia present, unspecified whether manifestations fluctuate (HCC) (Primary Dx); Primary osteoarthritis involving multiple joints; Frequent falls Start: 09-06-2024 End: 09-06-2024 Documentation procedure Mg Evans DO Work Phone: [facility] Comment on above: [facility] Start: 09-06-2024 End: 09-10-2024 ambulatory Roderick Anuradha Movens PA-C Work Phone: [facility] Comment on above: Parkinson's disease, unspecified whether dyskinesia present, unspecified whether manifestations fluctuate (HCC) (Primary Dx); Primary osteoarthritis involving multiple joints; Frequent falls Start: 09-02-2024 End: 09-06-2024 ambulatory Roderick Anuradha Movens PA-C Work Phone: [facility] Comment on above: Parkinson's disease, unspecified whether dyskinesia present, unspecified whether manifestations fluctuate (HCC) (Primary Dx); Primary osteoarthritis involving multiple joints; Frequent falls Start: 09-02-2024 ambulatory MG BrunoTracey EVANS [facility] Ambulatory Start: 2024 End: 09-03-2024 ambulatory Roderickmarivel Ling Movens PA-C Work Phone: [facility] Comment on above: Parkinson's disease, unspecified whether dyskinesia present, unspecified whether manifestations fluctuate (HCC) (Primary Dx); Primary osteoarthritis involving multiple joints; Frequent falls Start: 08-27-2024 End: 08-31-2024 ambulatory Roderick Anuradha Movens PA-C Work Phone: [facility] Comment on above: Parkinson's disease, unspecified whether dyskinesia present, unspecified whether manifestations fluctuate (HCC) (Primary Dx); Primary osteoarthritis involving multiple joints; Frequent falls Start: 08-26-2024 End: 2024 ambulatory Roderick Anuradha Yenns PA-C Work Phone: [facility] Comment on above: Parkinson's disease, unspecified whether dyskinesia present, unspecified whether manifestations fluctuate (HCC) (Primary Dx); Primary osteoarthritis involving multiple joints; Frequent falls Start: 08-19-2024 End: 08-23-2024 ambulatory Roderick Anuradha Movens PA-C Work Phone: [facility] Comment on above: Parkinson's disease, unspecified whether dyskinesia present, unspecified whether manifestations fluctuate (HCC) (Primary Dx); Primary osteoarthritis involving multiple joints; Frequent falls Constipation, unspec ified constipation type (Primary Dx); Frequent falls Start: 08-13-2024 End: 08-13-2024 Documentation procedure Yanet Daly OT [facility] Occupational Therapy Comment on above: Occupational Therapy ; Neuro Start: 08-13-2024 [facility] Start: 08-05-2024 ambulatory MG CarrTracey CAPELLANM [facility] Ambulatory Start: 08-03-2024 End: 08-03-2024 Transcribe Orders Roderick Anuradha Movens PA-C Work Phone: [facility] Occupational Therapy Comment on above: Closed fracture of s ternum with routine healing, unspecified portion of sternum, subsequent encounter (Primary Dx); Multiple falls; Parkinson's disease, unspecified whether dyskinesia present, unspecified whether manifestations fluctuate (HCC); Primary osteoarthritis involving multiple joints Start: 08-02-2024 End: 08-06-2024 ambulatory Roderick Anuradha Joel JASMINE Work Phone: [facility] Comment on above: Parkinson's disease, unspecified whether dyskinesia present, unspecified whether manifestations fluctuate (HCC) (Primary Dx); Primary osteoarthritis involving multiple joints; Frequent falls; Multiple falls Start: 07-29-2024 End: 07-29-2024 Office outpatient visit 15 minutes Mg Evans DO Work Phone: [facility] Comment on above: Recurrent falls (Teresa jayesh Dx) Start: 07-29-2024 End: 07-29-2024 ambulatory MG EVANS [facility] Start: 07-27-2024 End: 07-27-2024 Patient encounter procedure Marci Parveen Kimble DPM Work Phone: [facility] Pod[facility] Comment on above: Onychomycosis (Prima ry Dx); Onychodystrophy; Diabetic peripheral neuropathy (HCC); Pain due to onychomycosis of toenail of right foot Start: 07-27-2024 End: 07-27-2024 ambulatory MG EVANS [facility] Start: 07-26-2024 End: 07-26-2024 Orders Only Mg Evans DO Work Phone: [facility] Comment on above: Abnormal CT of the a bdomen (Primary Dx) Start: 07-26-2024 ambulatory MG EVANS [facility] Ambulatory Start: 07-19-2024 End: 07-23-2024 Evaluation and management of inpatient KIRILL HARDY [facility] Start: 07-14-2024 End: 07-14-2024 Emergency department patient visit MG EVANS [facility] Start: 07-13-2024 End: 07-13-2024 Office outpatient visit 25 minutes Mg Evans DO Work Phone: [facility] Comment on above: Recurrent falls (Teresa jayesh Dx); Primary osteoarthritis involving multiple joints Start: 07-13-2024 End: 07-13-2024 ambulatory MG EVANS [facility] Start: 07-09-2024 End: 07-09-2024 Emergency department patient visit Ernie He DO Work Phone: [facility] Emergency Medicine Comment on above: Fall, initial encoun ter (Primary Dx); Contusion of right knee and lower leg, initial encounter Start: 06-28-2024 End: 06-28-2024 ambulatory [facility] Ambulatory Start: 06-28-2024 End: 06-28-2024 Office outpatient visit 25 minutes [facility] DO Work Phone: [facility] Comment on above: Acquired hypothyroid ism (Primary Dx); Primary hypertension; Gastroesophageal reflux disease without esophagitis; Schizophrenia, unspecified type; Parkinson's disease without dyskinesia or fluctuating manifestations; Balance disorder Start: 06-23-2024 End: 06-23-2024 Office outpatient new 45 minutes Mg Marlon Evans DO Work Phone: [facility] Comment on above: Primary hypertension (Primary Dx); Type 2 diabetes mellitus without complication, without long-term current use of insulin (HCC); Parkinson's disease, unspecified whether dyskinesia present, unspecified whether manifestations fluctuate (HCC); Schizophrenia, unspecified type (HCC); Recurrent falls Start: 06-23-2024 End: 06-23-2024 ambulatory MG EVANS [facility] Start: 05-26-2024 End: 05-26-2024 ambulatory [facility] Start: 05-25-2024 ambulatory DAVID ORTIZ [facility] Ambulatory Start: 05-19-2024 End: 05-19-2024 ambulatory [facility] Start: 05-18-2024 End: 05-18-2024 Flores Ortiz MD Work Phone: [facility] Comment on above: Parkinson disease (H CC) Start: 05-11-2024 End: 05-11-2024 ambulatory [facility] Start: 05-05-2024 End: 05-05-2024 ambulatory [facility] Start: 05-04-2024 End: 05-04-2024 ambulatory [facility] Start: 04-28-2024 End: 04-28-2024 ambulatory [facility] Start: 04-27-2024 End: 04-27-2024 ambulatory [facility] Start: 04-27-2024 End: 04-27-2024 ambulatory MARCI KIMBLE [facility] Start: 04-27-2024 End: 04-27-2024 Patient encounter procedure Marci Kimble DPM Work Phone: [facility] Pod[facility] Comment on above: Onychomycosis (Prima ry Dx); Onychodystrophy; Diabetic peripheral neuropathy (HCC); Pain due to onychomycosis of toenail of right foot Start: 04-22-2024 End: 04-22-2024 ambulatory [facility] Start: 04-20-2024 End: 04-20-2024 ambulatory [facility] Start: 04-15-2024 End: 04-15-2024 ambulatory [facility] Start: 03-29-2024 End: 03-29-2024 ambulatory [facility] Ambulatory Start: 03-29-2024 End: 03-29-2024 Office outpatient visit 25 minutes Rafa Jacinto DO Work Phone: [facility] Comment on above: Type 2 diabetes susi itus without complication, without long- term current use of insulin (Multi) (Primary Dx); Primary hypertension; Acquired hypothyroidism; Gastroesophageal reflux disease without esophagitis; Stage 3a chronic kidney disease (Multi); Schizophrenia, unspecified type; Parkinson's disease without dyskinesia or fluctuating manifestations Start: 03-22-2024 End: 03-22-2024 ambulatory [facility] Start: 03-12-2024 End: 03-12-2024 ambulatory RAFA [facility] Start: 03-01-2024 End: 03-01-2024 ambulatory NIMCO NAVARROSACHA [facility] Start: 02-27-2024 End: 02-27-2024 ambulatory [facility] Start: 02-25-2024 End: 02-25-2024 ambulatory [facility] Start: 02-23-2024 End: 02-23-2024 ambulatory [facility] Start: 02-13-2024 End: 02-13-2024 ambulatory [facility] Start: 02-11-2024 End: 02-11-2024 ambulatory [facility] Start: 02-10-2024 End: 02-10-2024 ambulatory [facility] Start: 02-05-2024 End: 02-05-2024 [facility] Work Phone: [facility] Comment on above: Other closed fractur e of distal end of right ulna, initial encounter (Primary Dx) Start: 02-05-2024 End: 02-05-2024 ambulatory [facility] Ambulatory Start: 02-04-2024 End: 02-04-2024 ambulatory [facility] Start: 02-03-2024 End: 02-03-2024 Office outpatient visit 15 minutes Sachin Morales MD Work Phone: [facility] Comment on above: Right wrist pain (Pr imary Dx) Start: 02-03-2024 End: 02-03-2024 Orders Only Mariana Oates LPN [facility] Comment on above: Pain (Primary Dx) Start: 02-02-2024 End: 02-02-2024 ambulatory KENYETTA B [facility] Start: 01-30-2024 End: 01-30-2024 ambulatory KENYETTA B [facility] Start: 01-29-2024 End: 01-30-2024 ambulatory CHRISTIANO TRUJILLO [facility] Start: 01-29-2024 End: 01-29-2024 Subsequent hospital visit by physician Sabas [facility] [facility] Comment on above: Arrived Start: 01-29-2024 End: 01-29-2024 Emergency department patient visit Christiano Trujillo MD Work Phone: [facility] Emergency Medicine Comment on above: Subluxation of dista l end of right ulna, subsequent encounter (Primary Dx); Contusion of right forearm, initial encounter; Contusion of right knee, initial encounter; Subluxation of tooth Start: 01-26-2024 End: 01-26-2024 Patient encounter procedure Marci Kimble DPM Work Phone: [facility] Comment on above: Onychomycosis; Onychodystrophy; Diabetic peripheral neuropathy (HCC); Pain due to onychomycosis of toenail of right foot Start: 01-26-2024 End: 01-26-2024 ambulatory MARCI KIMBLE [facility] Start: 01-23-2024 End: 01-23-2024 ambulatory KENYETTA B [facility] Start: 01-22-2024 End: 01-22-2024 ambulatory KENYETTA B [facility] Start: 01-21-2024 End: 01-21-2024 ambulatory [facility] Start: 01-21-2024 End: 01-21-2024 Office outpatient visit 15 minutes Huy Vasquez PA-C Work Phone: [facility] Comment on above: SAH (subarachnoid he morrhage) (HCC) (Primary Dx) Start: 01-21-2024 End: 01-21-2024 ambulatory HUY VASQUEZ [facility] Start: 01-16-2024 End: 01-16-2024 ambulatory [facility] Start: 01-12-2024 End: 01-12-2024 ambulatory [facility] Start: 01-09-2024 End: 01-09-2024 ambulatory [facility] Start: 01-08-2024 End: 01-08-2024 Office outpatient visit 40 minutes David Ortiz MD Work Phone: [facility] Comment on above: Parkinson disease (H CC) Start: 01-06-2024 End: 01-06-2024 ambulatory HUY VASQUEZ [facility] Start: 01-02-2024 End: 01-02-2024 ambulatory [facility] Start: 12-31-2023 End: 12-31-2023 ambulatory [facility] [facility] Start: 12-29-2023 End: 12-29-2023 ambulatory [facility] Ambulatory Start: 12-29-2023 End: 12-29-2023 Office outpatient visit 25 minutes Rafa Reyes [facility] Work Phone: [facility] Comment on above: Primary hypertension (Primary Dx); Type 2 diabetes mellitus without complication, without long-term current use of insulin (Multi); Acquired hypothyroidism; Disease of thyroid gland; Gastroesophageal reflux disease without esophagitis; Stage 3a chronic kidney disease (Multi); Schizophrenia, unspecified type (Multi); Parkinson's disease without dyskinesia or fluctuating manifestations (Multi) Start: 12-26-2023 End: 12-26-2023 ambulatory [facility] Start: 12-24-2023 End: 12-24-2023 ambulatory [facility] Start: 12-24-2023 End: 12-24-[address] [facility] Start: 12-24-2023 End: 12-24-2023 Postop follow up visit related to original px Sachin Morales MD Work Phone: [facility] Comment on above: Right wrist pain (Pr imary Dx) Start: 12-18-2023 End: 12-18-2023 Orders Only Sachin Morales MD Work Phone: [facility] Comment on above: Pain (Primary Dx) Start: 12-17-2023 End: 12-17-2023 Office outpatient visit 40 minutes [facility] P[employer]ER CLEANER-RN TRANSPORT Work Phone: [facility] Comment on above: Parkinson's disease with fluctuating manifestations, unspecified whether dyskinesia present (Multi) (Primary Dx); Subarachnoid hemorrhage (Multi) Start: 12-17-2023 End: 12-17-2023 ambulatory [facility] Ambulatory Start: 12-16-2023 End: 12-16-2023 Office outpatient visit 15 minutes Shante Morocho RN TRANSPORT Work Phone: [facility] Comment on above: SAH (subarachnoid he morrhage) (HCC) (Primary Dx) Start: 12-08-2023 End: 12-08-2023 Orders Only Huy Vasquez PA-C Work Phone: [facility] Comment on above: SAH (subarachnoid he morrhage) (HCC) (Primary Dx) Start: 12-04-2023 End: 12-05-2023 Evaluation and management of inpatient [facility] Start: 12-04-2023 End: 12-04-2023 Emergency department patient visit Jasmyn Wade DO Work Phone: [facility] Comment on above: Fall, initial encoun ter (Primary Dx); Traumatic hemorrhage of right cerebrum with loss of consciousness of 30 minutes or less, initial encounter (Multi); Facial abrasion, initial encounter; Contusion of face, initial encounter; Dislocation of right wrist, initial encounter Start: 10-14-2023 End: 10-14-2023 Office outpatient visit 15 minutes Marci Kimble DPM Work Phone: [facility] Comment on above: Diabetic peripheral neuropathy (HCC) (Primary Dx); Onychodystrophy; Onychomycosis; Pain due to onychomycosis of toenail of right foot Start: 07-19-2023 End: 07-19-2023 Emergency department patient visit RAFA L [facility] Start: 07-15-2023 End: 07-15-2023 Office outpatient new 30 minutes Marci Fernándezr DPM Work Phone: [facility] Comment on above: Comprehensive diabet ic foot examination, type 2 DM, encounter for (HCC) (Primary Dx); Diabetic peripheral neuropathy (HCC); Onychodystrophy; Onychomycosis; Pain due to onychomycosis of toenail of right foot Start: 07-10-2023 End: 07-10-2023 Subsequent hospital visit by physician Sabas [id number] Kristio [facility] Comment on above: Encounter for screen ing mammogram for malignant neoplasm of breast Start: 06-25-2023 Orders Only David Ortiz MD Work Phone: [facility] Comment on above: Parkinson disease Start: 06-24-2023 Refill Mary Anne strickland MA [facility] Comment on above: Parkinson disease Start: 06-23-2023 End: 06-23-2023 Office outpatient visit 25 minutes David Ortiz MD Work Phone: [facility] Comment on above: Parkinson disease Start: 04-21-2023 End: 04-21-2023 Office outpatient new 45 minutes Rafa Jacinto DO Work Phone: [facility] Comment on above: Encounter for screen ing mammogram for malignant neoplasm of breast (Primary Dx); Type 2 diabetes mellitus without complication, without long-term current use of insulin ([facility]); Acquired hypothyroidism; Stage 3a chronic kidney disease ([facility]); Parkinson's disease without dyskinesia or fluctuating manifestations; Schizophrenia, unspecified type ([facility]) Start: 02-04-2023 Patient encounter procedure Antwan Maharaj Work Phone: [facility] Work Phone: Start: 01-29-2023 Patient encounter procedure Antwan Maharaj Work Phone: [facility] Work Phone: Start: 01-29-[address] Antwan Maharaj Facility:[id number] Start: 01-21-[address] Antwan Maharaj Facility:[id number] Start: 01-21-2023 Patient encounter procedure Antwan Maharaj Work Phone: [facility] Work Phone: Start: 01-14-2023 Patient encounter procedure Antwan Maharaj Work Phone: [facility] Work Phone: Start: 01-14-[address] Antwan Maahraj Facility:[id number] Start: 12-31-[address] Antwan Maharaj Facility:[id number] Start: 12-24-[address] Antwan Maharaj Facility:[id number] Start: 12-24-2022 Patient encounter procedure Antwan Maharaj Work Phone: [facility] Work Phone: Start: 12-19-[address] Antwan Maharaj Facility:[id number] Start: 12-19-2022 Patient encounter procedure Antwan Maharaj Work Phone: [facility] Work Phone: Start: 12-19-2022 End: 12-19-2022 Office outpatient visit 25 minutes David Ortiz MD Work Phone: [facility] Comment on above: Parkinson disease (H CC) Start: 12-03-2022 Patient encounter procedure Antwan Maharaj Work Phone: [facility] Work Phone: Start: 12-03-[address] Antwan Maharaj Facility:[id number] Start: 11-25-2022 Patient encounter procedure Antwan Maharaj Work Phone: [facility] Work Phone: Start: 11-25-[address] Antwan Maharaj Facility:[id number] Start: 11-06-2022 End: 11-06-2022 Emergency department patient visit Erickson AmeenaTracey Matt [facility] Emergency Start: 10-07-2022 End: 10-08-2022 Emergency department patient visit Georgi Vergara [facility] Emergency 11 Start: 08-18-2022 End: 08-18-2022 Emergency department patient visit Sharmaine Dean [facility] Emergency 12 Start: 08-09-2022 End: 08-09-2022 Emergency department patient visit Erickson Carla Hernandez [facility] Emergency Start: 08-01-2022 End: 08-01-2022 Office outpatient visit 25 minutes David Ortiz MD Work Phone: [facility] Comment on above: Parkinson disease (H CC) (Primary Dx) Start: 05-25-2022 End: 05-26-2022 Emergency department patient visit Erick Lowe [facility] Emergency 07 Start: 04-22-[address] Antwan Maharaj Facility:[id number] Start: 04-17-2022 End: 04-18-2022 ambulatory DAVID ORTIZ Start: 04-15-2022 Orders Only David Ortiz MD Work Phone: [facility] Comment on above: NPH (normal pressure hydrocephalus) (HCC) (Primary Dx); Abnormal coagulation profile NPH (normal pressure hydrocephalus) (HCC) (Primary Dx) Start: 11-15-2021 Transcribe Orders Antwan espinoza MD Work Phone: [facility] Central Scheduling Comment on above: Other symptoms and s igns involving the nervous system (Primary Dx); Abnormal brain MRI Start: 05-18-2019 End: 05-18-2019 Office outpatient visit 10 minutes Ti Rhodes Work Phone: [facility] Comment on above: Fracture of unspecif ied phalanx of left little finger, initial encounter for closed fracture (Primary Dx) Start: 04-27-2019 End: 04-27-2019 Office outpatient new 30 minutes Antwan Maharaj Work Phone: [facility] Comment on above: Fracture of unspecif ied phalanx of left little finger, initial encounter for closed fracture Start: 11-03-2018 End: 11-03-2018 Patient encounter procedure Antwan Weberdomo Work Phone: [facility] Comment on above: Dysphagia, unspecifi ed type Start: 12-25-2017 Patient encounter Kar Carol Ann [facility] Start: 07-26-2017 Patient encounter Kar Carol Ann [facility] Start: 04-17-2017 End: 04-17-2017 Patient encounter Antwan Maharaj [facility] Start: 04-09-2017 End: 04-09-2017 Ambulatory Antwan Watters Work Phone: [facility] Procedures Date Procedure Procedure Detail Performing Clinician Start: 01-05-2025 Complete blood count with white cell differential, manual Mg Evans DO Work Phone: Start: 01-05-2025 Comprehensive metabo lic panel Mg Evans DO Work Phone: Start: 01-05-2025 Lipid panel Mg monroy DO Work Phone: Start: 12-23-2024 Gluc bld gluc mntr d ev cleared fda spec home use Mg Evans DO Work Phone: Start: 12-21-[address] Gamaliel Coats DO Work Phone: Start: 12-21-2024 Serum inorganic phos phate measurement Dr. Gamaliel Coats DO Work Phone: Start: 12-19-[address] Gamaliel Coats DO Work Phone: Start: 12-18-2024 Plain chest X-ray Dr. Willy Coats DO Work Phone: Start: 12-18-2024 Urnls dip stick/tabl et reagent auto microscopy Dr. Gamaliel Coats DO Work Phone: Start: 12-18-2024 MRI of brain without contrast Dr. Gamaliel Coats DO Work Phone: Start: 12-18-2024 CT of head without contrast Dr. Gamaliel Coats DO Work Phone: Start: 12-18-[address] Gamaliel Coats DO Work Phone: Start: 07-09-2024 Radex hip unilateral with pelvis 2-3 views Ernie He DO Work Phone: Start: 06-28-2024 Thyrotropin [Units/v olume] in Serum or Plasma Ernie He DO Work Phone: Start: 05-24-2024 SCAN OTHER ORDERS Mg CarrTracey Capellanm DO Work Phone: Start: 03-12-2024 Thyrotropin [Units/v olume] in Serum or Plasma Rafa Jacinto DO Work Phone: Start: 01-29-2024 Radex forearm 2 views Bobby Trujillo MD Work Phone: Start: 01-29-2024 Ecg routine ecg w/le ast 12 lds trcg only w/o i&r Christiano Trujillo MD Work Phone: Start: 12-04-2023 Basic metabolic pane l calcium total Jasmyn Wade DO Work Phone: Start: 12-04-2023 Ct cervical spine w/ o contrast material Jasmyn Wade DO Work Phone: Start: 12-04-2023 Ct head/brain w/o co ntrast material Jasmyn Wade DO Work Phone: Start: 12-04-2023 End: 12-04-2023 Radex forearm 2 views Jasmyn Wade DO Work Phone: Start: 10-15-2023 Lipid 1996 panel - S marcell or Plasma Jasmyn Wade DO Work Phone: Start: 10-15-2023 Thyrotropin [Units/v olume] in Serum or Plasma Jasmyn Wade DO Work Phone: Start: 07-19-2023 NURSING COMMUNICATIO N - DO NOT USE IN ORDER SETS RAFA JACINTO Start: 07-19-2023 CT CERVICAL SPINE WO IV CONTRAST RAFA JADYNKAVON Start: 07-19-2023 CT HEAD WO IV CONTRAST RAFA JACINTO Start: 07-10-2023 End: 07-10-2023 Screening mammography bi 2-view breast inc cad Rafa Amy Ophelia DO Work Phone: Start: 11-06-2022 End: 11-06-2022 EKG impression Erickson Hernandez Start: 12-13-2021 Lipid 1996 panel - S marcell or Plasma Rafa Jacinto DO Work Phone: Start: 12-13-2021 Thyrotropin [Units/v olume] in Serum or Plasma Rafarisa Reynoldsconnortaylor DO Work Phone: Start: 07-03-2021 Microscopic observat ion [Identifier] in Cervix by Cyto stain Rafa Ophelia DO Work Phone: Start: 06-19-2021 Mammography Rafa Reynolds berry DO Work Phone: Start: 11-03-2018 Diagnostic radiograp hy of upper gastrointestinal tract with serial films External Transcribed Plan of Treatment Date Care Activity Detail Author Start: 08-31-2035 Respiratory Syncytial Virus Immunization: Risk, 60-74 Risk, or 75+ (1 - 1-dose 75+ series) Respiratory Syncytial Virus Immunization: Risk, 60-74 Risk, or 75+ (1 - 1-dose 75+ series) [facility] Start: 07-14-2034 Tetanus vaccination Tetanus: Every 10yrs [facility] Start: 07-19-2033 DTaP/Tdap/Td Vaccines (4 - Td or Tdap) DTaP/Tdap/Td Vaccines (4 - Td or Tdap) [facility] Start: 07-19-2033 Tetanus vaccination Tetanus: Every 10yrs [facility] Start: 08-09-2032 DTaP/Tdap/Td Vaccines (2 - Td or Tdap) DTaP/Tdap/Td Vaccines (2 - Td or Tdap) [facility] Start: 08-09-2032 Tetanus vaccination Tetanus: Every 10yrs [facility] Start: 11-17-2028 Tetanus vaccination [facility] Start: 01-05-2026 eGFR Diabetes eGFR Diabetes [facility] Start: 09-21-2025 Urine screening for protein Urine (micro)albumin/creatini ne ratio - [facility] Start: 07-19-2025 eGFR Diabetes eGFR Diabetes [facility] Start: 07-19-2025 Urine screening for protein eGFR Diabetes [facility] Start: 07-11-2025 Screening for malignant neoplasm of colon [facility] Start: 06-28-2025 Thyroid stimulating hormone measurement TSH Level [facility] Start: 03-30-2025 End: 03-30-2025 Patient encounter procedure 03/30/2025 10:40 AM EDT Office Visit [facility] [address] [place] [address] [place] [address] [place] [address] [facility] Start: 03-23-2025 Hemoglobin A1c measurement A1C [facility] Start: 03-12-2025 Thyroid stimulating hormone measurement TSH Level [facility] Start: 03-03-2025 Glaucoma screening Diabetes: Retinopathy Screening [facility] Start: 02-07-2025 Influenza vaccination Influenza Vaccine (#1) [facility] Start: 02-02-2025 End: 02-02-2025 Patient encounter procedure 02/02/2025 9:40 AM EDT Office Visit [facility] [address] [place] [address] Mg Evans DO [address] [address] [facility] Start: 01-24-2025 End: 01-24-2025 Patient encounter procedure 01/24/2025 11:30 AM EDT Office Visit [facility] [address] [place] [address] Marci Kimble, DPAshwini [address] [place] [address] [facility] Start: 01-21-2025 End: 01-21-2025 Patient encounter procedure 01/21/2025 11:[address] [facility] [address] [place] [phone] Mg Evans DO [address] [address] [facility] Start: 01-11-2025 End: 01-11-2025 Patient encounter procedure 01/11/2025 9:40 AM EDT Office Visit [facility] [address] [facility] Medical Office Building, 2nd [place] [phone] David Ortiz MD [address] [place] [address] [facility] Start: 01-05-2025 End: 01-05-2025 Patient encounter procedure 01/05/2025 9:20 AM EDT Office Visit [facility] [address] [place] [address] Mg Evans DO [address] [address] [facility] Start: 12-30-2024 End: 12-30-2024 Patient encounter procedure 12/30/2024 11:20 AM EDT Office Visit [facility] [address] [place] [address] Mg Evans DO [address] [address] [facility] Start: 12-21-2024 Hemoglobin A1c measurement A1C [facility] Start: 12-21-[address] [facility] Start: 12-21-[address] [facility] Start: 12-20-[address] [facility] Start: 12-19-2024 Care planning and problem solving actions [facility] Start: 12-19-[address] [facility] Start: 12-19-2024 Complete blood count [facility] Start: 12-19-2024 Following clinical pathway protocol [facility] Start: 12-19-2024 Lab findings surveillance [facility] Start: 12-19-20[address] Notification [address] [facility] Start: 12-19-[address] [facility] Start: 12-19-[address] [facility] Start: 12-19-[address] [facility] Start: 12-19-2024 Care regimes management [facility] Start: 12-19-2024 Notification of physician [facility] Start: 12-19-2024 Application of intermittent pneumatic compression device [facility] Start: 12-18-[address] [facility] Start: 12-18-2024 Assessment of risk of venous thromboembolism [facility] Start: 12-18-[address] [facility] Start: 12-18-2024 Catheterization of vein [facility] Start: 12-18-[address] [facility] Start: 12-18-2024 Continuous pulse oximetry [facility] Start: 12-18-2024 Elevation of head of bed [facility] Start: 12-18-[address] [facility] Start: 12-18-2024 Insertion of catheter into peripheral vein [facility] Start: 12-18-2024 Notification of physician [facility] Start: 12-18-2024 End: 12-19-2024 Patient referral to dietitian [facility] Start: 12-18-2024 Providing care according to standard [facility] Start: 12-18-2024 Referral to occupational therapist [facility] Start: 12-18-2024 Referral to service [facility] Start: 12-18-2024 Speech therapy assessment [facility] Start: 12-18-2024 Telemedicine consultation with patient [facility] Start: 12-18-2024 Tobacco use cessation education [facility] Start: 12-18-2024 Following clinical pathway protocol [facility] Start: 12-18-[address] [facility] Start: 12-18-2024 End: 12-18-[address] [facility] Start: 12-18-2024 Magnetic resonance angiography of neck without contrast MRA Neck without Contrast [facility] Start: 12-18-2024 MRI of brain without contrast Brain without Contrast [facility] Start: 12-18-[address] [facility] Start: 12-18-[address] [facility] Start: 12-18-2024 End: 12-18-[address] [facility] Start: 12-18-2024 Plain chest X-ray Chest [address] [facility] Start: 12-18-2024 Thyroid stimulating hormone measurement [facility] Start: 12-04-2024 Urine screening for protein eGFR Diabetes [facility] Start: 11-11-2024 End: 11-11-2024 Patient encounter procedure 11/11/2024 11:00 AM EDT Office Visit [facility] [address] [place] [address] Marcos Barrera MD [address] [place] [address] [facility] Start: 10-25-2024 End: 10-25-2024 Patient encounter procedure 10/25/2024 11:00 AM EDT Office Visit [facility] [address] [place] [phone] Marci Kimble, BHUMI [address] [place] [address] [facility] Start: 10-14-2024 Lipid panel Lipid Panel [facility] Start: 10-14-2024 Thyroid stimulating hormone measurement TSH Level [facility] Start: 09-30-2024 End: 09-30-[address] [facility] Start: 09-26-2024 Hemoglobin A1c measurement [facility] Start: 09-21-2024 End: 09-21-2024 Patient encounter procedure 09/21/2024 10:40 AM EDT Office Visit [facility] [address] [place] [address] Mg Evans DO [address] [address] [facility] Start: 09-09-2024 End: 09-09-2024 Patient encounter procedure 09/09/2024 2:00 PM EDT Office Visit [facility] [address] [place] [address] Mg Evans DO [address] [address] Marcos Barrera MD [address] [place] [address] [facility] Start: 09-08-2024 End: 09-08-2024 ambulatory 09/08/2024 10:[address] [facility] [address] [place] [address] Roderick Maldonado PA-C [address] [place] [address] Mehran Buck, PT [facility] Start: 09-06-2024 End: 09-06-2024 ambulatory 09/06/2024 10:[address] [facility] [address] [place] [address] Roderick Maldonado PA-C [address] [place] [address] [facility] Start: 09-02-2024 End: 09-02-2024 ambulatory 09/02/2024 10:[address] [facility] [address] [place] [address] Roderick Maldonado PA-C [address] [place] [address] [facility] Start: 2024 End: 2024 ambulatory 2024 10:[address] [facility] [address] [place] [address] Roderick Maldonado PA-C [address] [place] [address] [facility] Start: 08-27-2024 End: 08-27-[address] [facility] Start: 08-26-2024 End: 08-26-2024 ambulatory 08/26/2024 10:[address] [facility] [address] [place] [address] Roderick Maldonado PA-C [address] [place] [address] [facility] Start: 08-13-2024 End: 08-13-2024 ambulatory 08/13/2024 10:[address] [facility] [address] [place] [address] Roderick Maldonado PA-C [address] [place] [address] Yanet Daly OT Discharge Disposition: Home [facility] Start: 08-02-2024 End: 08-02-2024 ambulatory 08/02/2024 12:[address] [facility] [address] [place] [address] Roderick Maldonado PA-C [address] [place] [address] Mehran Buck, PT Discharge Disposition: Home [facility] Start: 07-29-2024 End: 07-29-2024 Patient encounter procedure 07/29/2024 11:20 AM EST Office Visit [facility] [address] [place] [phone] [place] [address] [place] [address] [facility] Start: 07-27-2024 End: 07-27-2024 Patient encounter procedure 07/27/2024 10:00 AM EST Office Visit [facility] [address] [place] [phone] Marci Kimble, BHUMI [address] [place] [address] [facility] Start: 07-22-2024 End: 07-22-2024 Patient encounter procedure 07/22/2024 11:20 AM EST Office Visit [facility] [address] [place] [address] Mg Evans DO [address] [place] [address] [facility] Start: 07-15-2024 Diabetic foot examination Diabetic Foot Exam [facility] Start: 07-10-2024 Screening for malignant neoplasm of breast Mammogram [facility] Start: 07-03-2024 Screening for malignant neoplasm of cervix [facility] Start: 06-28-2024 End: 06-28-2025 TSH with reflex to Free T4 if abnormal [facility] Service Area Work Phone: Comment on above: Expected: 06/28/2024 (Approximate), Expi res: 06/28/2025 Start: 06-28-2024 End: 06-28-2024 Patient encounter procedure 06/28/2024 12:40 PM EST Office Visit [facility] [address] [facility] [address] [place] [address] Rafa Jacinto, DO [address] [facility] [address] [facility] Start: 06-12-2024 Hemoglobin A1c measurement [facility] Start: 04-27-2024 End: 04-27-2024 Patient encounter procedure 04/27/2024 10:00 AM EST Office Visit [facility] Physician [facility] Podiatry [address] [place] [phone] Marci Kimble, DPM [address] [place] [address] [facility] Physician [facility] Start: 04-15-2024 End: 04-15-2024 ambulatory 04/15/2024 9:45 AM EST Treatment [facility] [address] [place] [address] Perla Robbins, OT [address] [place] [address] [facility] Start: 03-29-2024 End: 03-29-2024 Patient encounter procedure 03/29/2024 12:40 PM EDT Office Visit [facility] [address] [facility] [address] [place] [address] Rafa Jacinto, DO [address] [facility] [address] [facility] Start: 03-03-2024 Glaucoma screening Diabetes: Retinopathy Screening [facility] Start: 03-01-2024 End: 03-01-2024 ambulatory 03/01/2024 9:30 AM EDT Treatment [facility] [address] [facility] [facility] [address] [place] [address] Nimco Reyna, PT [address] [facility] [place] [address] [facility] Start: 02-20-2024 End: 02-20-2024 ambulatory 02/20/2024 8:30 AM EDT Treatment [facility] [address] [facility] [address] [place] [address] Justa Rondon, PIG STICKER [address] [facility] [place] [address] [facility] Start: 02-18-2024 End: 02-18-2024 ambulatory 02/18/2024 9:15 AM EDT Treatment [facility] [address] [facility] [address] [place] [address] Della Rivera, PIG STICKER [address] [facility] Rehab Services [place] [id number] [facility] Start: 02-16-2024 End: 02-16-2024 ambulatory 02/16/2024 10:00 AM EDT Treatment [facility] [address] [place] [address] [place] [address] [address] [facility] Department [place] [address] [facility] Start: 02-13-2024 End: 02-13-2024 ambulatory 02/13/2024 3:30 PM EDT Treatment [facility] [address] [facility] [address] [place] [address] Mary Anne Enriquez, PIG STICKER [address] [facility] Re[facility] Services [place] [phone] [facility] Start: 02-11-2024 End: 02-11-2024 ambulatory 02/11/2024 2:00 PM EDT Treatment [facility] [address] [place] [address] Mary Anne Enriquez, PIG STICKER 10[address] [facility] Re[facility] Services [place] [phone] [facility] Start: 02-10-2024 End: 02-10-2024 ambulatory 02/10/2024 10:30 AM EDT Treatment [address] [phone] Pooja Malave OTA [address] Rehab Services [place] [phone] [facility] Start: 02-08-2024 COVID-19 Vaccine ( season) COVID-19 Vaccine ( season) [facility] Start: 02-08-2024 Influenza vaccination Influenza Vaccine (#1) [facility] Start: 02-05-2024 End: 02-05-2024 ambulatory 02/05/2024 9:45 AM EDT Treatment [address] [address] Pooja Malave OTA [address] [place] [address] [facility] Start: 02-04-2024 End: 02-04-2024 ambulatory 02/04/2024 3:30 PM EDT Treatment [facility] [address] [place] [address] Della Rivera, PIG STICKER [address] [place] [address] [facility] Start: 02-02-2024 End: 02-02-2024 ambulatory 02/02/2024 10:00 AM EDT Treatment [address] [address] [place] [address] [facility] Department [place] [address] [facility] Start: 01-30-2024 End: 01-30-2024 ambulatory 01/30/2024 10:00 AM EDT Treatment [address] [address] Elbert Sosa, PT [address] [facility] [place] [address] [facility] Start: 01-26-2024 End: 01-26-2024 Patient encounter procedure 01/26/2024 1:45 PM EDT Office Visit [facility] Podiatry [address] [place] [address] Marci Kimble, DPM [address] [place] [address] [facility] Start: 01-26-2024 End: 01-26-2024 Patient encounter procedure 01/26/2024 8:30 AM EDT Office Visit [facility] Physician [facility] Podiatry [address] [place] [address] Marci Kimble DPM [address] [place] [address] [facility] Start: 01-23-2024 End: 01-23-2024 ambulatory 01/23/2024 9:15 AM EDT Treatment [facility] [address] [place] [address] Denise Morgan, PIG STICKER [address] [facility] [place] [address] [facility] Start: 01-21-2024 End: 01-21-2024 ambulatory 01/21/2024 3:30 PM EDT Treatment [facility] [address] [place] [address] Della Rivera, PIG STICKER [address] Rehab Services [place] [phone] [facility] Start: 01-21-2024 End: 01-21-2024 Patient encounter procedure 01/21/2024 10:15 AM EDT Office Visit [facility] Neurological Physicians [address] [place] [address] [place] [address] Huy Vasquez PA-C [address] [place] [address] [facility] Start: 01-19-2024 End: 01-19-2024 Patient encounter procedure 01/19/2024 8:15 AM EDT Office Visit [facility] Physician [facility] Podiatry [address] [place] [phone] Marci Kimble, BHUMI [address] [place] [address] [facility] Start: 01-16-2024 End: 01-16-2024 ambulatory 01/16/2024 2:00 PM EDT Treatment [facility] [address] [place] [address] Della Rivera, PIG STICKER [address] [place] [address] [facility] Start: 01-15-2024 Hemoglobin A1c measurement [facility] Start: 01-12-2024 End: 01-12-2024 ambulatory 01/12/2024 11:30 AM EDT Evaluation [facility] [address] [place] [address] [place] [address] [address] [facility] Department [place] [address] [facility] Start: 01-09-2024 End: 01-09-2024 ambulatory 01/09/2024 9:15 AM EDT Treatment [facility] [address] [facility] [address] [place] [address] Denise Morgan, PIG STICKER [address] [facility] [place] [address] [facility] Start: 01-08-2024 End: 01-08-2024 Patient encounter procedure 01/08/2024 8:40 AM EDT Office Visit [facility]rological [facility]icians [address] [place] [address] Office Building, 2nd [place] [address] David Ortiz MD [address] [place] [address] [facility] Start: 01-07-2024 End: 01-07-2024 ambulatory 01/07/2024 7:45 AM EDT Treatment [facility] [address] [place] [phone] Denise Morgan, PIG STICKER [address] [facility] [place] [address] [facility] Start: 01-06-2024 End: 01-06-2024 Patient encounter procedure 01/06/2024 10:00 AM EDT Appointment [facility] Emergency Department CT Scan [address] [place] [phone] Huy Vasquez PA-C [address] [address] [facility] [address] Scan Start: 01-05-2024 End: 12-07-2024 CT Head WO contrast CT Head Or Brain Without Contrast Imaging Routine SAH (subarachnoid hemorrhage) (HCC) Expected: 01/05/2024, Expires: 12/07/2024 [facility] Work Phone: Comment on above: Expected: 01/05/2024, Expires: Start: 01-02-2024 End: 01-02-2024 ambulatory 01/02/2024 9:15 AM EDT Treatment [facility] [address] [facility] [address] [place] [address] Denise Morgan, PIG STICKER [address] [facility] [place] [address] [facility] Start: 12-31-2023 End: 12-31-2023 ambulatory 12/31/2023 9:15 AM EDT Treatment [facility] [address] [facility] [address] [place] [address] Denise Morgan, PIG STICKER 546 [facility] [place] [address] [facility] Start: 12-29-2023 End: 12-29-2023 Patient encounter procedure 12/29/2023 4:40 PM EDT Office Visit [facility] [address] [facility] [address] [place] [address] Rafa Jacinto, DO [address] [facility] [address] [facility] [place] [address] [facility] Start: 12-29-2023 End: 12-28-2024 Comprehensive metabolic 2000 panel - Serum or Plasma Comprehensive Metabolic Panel Lab Routine Type 2 diabetes mellitus without complication, without long-term current use of insulin (Multi) Expected: 12/29/2023 (Approximate), Expires: 12/28/2024 [facility] Work Phone: Comment on above: Expected: 12/29/2023 (Approximate), Expi res: 12/28/2024 Start: 12-29-2023 End: 12-28-2024 Hemoglobin A1c/Hemoglobin.total in Blood Hemoglobin A1C Lab Routine Type 2 diabetes mellitus without complication, without long-term current use of insulin (Multi) Expected: 12/29/2023 (Approximate), Expires: 12/28/2024 [facility] Service Area Work Phone: Comment on above: Expected: 12/29/2023 (Approximate), Expi res: 12/28/2024 Start: 12-29-2023 End: 12-28-2024 TSH with reflex to Free T4 if abnormal TSH with reflex to Free T4 if abnormal Lab Routine Type 2 diabetes mellitus without complication, without long-term current use of insulin (Multi) Expected: 12/29/2023 (Approximate), Expires: 12/28/2024 [facility] Work Phone: Comment on above: Expected: 12/29/2023 (Approximate), Expi res: 12/28/2024 Start: 12-24-2023 End: 12-24-2023 ambulatory 12/24/2023 1:15 PM EDT Evaluation [facility] [address] [place] [address] Ana Landaverde, SCALE SHOOTER [address] [facility] [place] [address] [facility] Start: 12-24-2023 End: 12-24-2023 Patient encounter procedure 12/24/2023 9:30 AM EDT Office Visit [facility] Orthopedic and Sports Medicine [address] [facility] [place] [address] Sachin Morales MD [address] [place] [address] [facility] Start: 12-16-2023 End: 12-16-2023 Patient encounter procedure 12/16/2023 1:40 PM EDT Office Visit [facility] [address] [facility] Medical Office Building, 5th [place] [address] Shante Morocho, RN TRANSPORT [address] [place] [address] [facility] Start: 10-20-2023 End: 04-21-2024 Comprehensive metabolic 2000 panel - Serum or Plasma Comprehensive Metabolic Panel Lab Routine Type 2 diabetes mellitus without complication, without long-term current use of insulin (CMS/HCC) Expected: 10/20/2023 (Approximate), Expires: 04/21/2024 [facility] Work Phone: Comment on above: Expected: 10/20/2023 (Approximate), Expi res: 04/21/2024 Start: 10-20-2023 End: 04-21-2024 Hemoglobin A1c/Hemoglobin.total in Blood Hemoglobin A1C Lab Routine Type 2 diabetes mellitus without complication, without long-term current use of insulin (CMS/HCC) Expected: 10/20/2023 (Approximate), Expires: 04/21/2024 [facility] Work Phone: Comment on above: Expected: 10/20/2023 (Approximate), Expi res: 04/21/2024 Start: 10-20-2023 End: 04-21-2024 Lipid 1996 panel - Serum or Plasma Lipid Panel Lab Routine Type 2 diabetes mellitus without complication, without long-term current use of insulin (CMS/HCC) Expected: 10/20/2023 (Approximate), Expires: 04/21/2024 [facility] Work Phone: Comment on above: Expected: 10/20/2023 (Approximate), Expi res: 04/21/2024 Start: 10-20-2023 End: 04-21-2024 TSH with reflex to Free T4 if abnormal TSH with reflex to Free T4 if abnormal Lab Routine Acquired hypothyroidism Expected: 10/20/2023 (Approximate), Expires: 04/21/2024 [facility] Work Phone: Comment on above: Expected: 10/20/2023 (Approximate), Expi res: 04/21/2024 Start: 10-20-2023 End: 10-20-2023 Patient encounter procedure 10/20/2023 10:20 AM EDT Office Visit [facility] [address] [facility] [address] [place] [address] Rafa Jacinto L, DO [address] [facility] [place] [address] [facility] Start: 10-14-2023 End: 10-14-2023 Patient encounter procedure 10/14/2023 8:15 AM EDT Office Visit [facility] Podiatry [address] [place] [address] Marci Kimble, BHUMI [address] [place] [address] [facility] Start: 07-10-2023 End: 07-10-2023 Professional / ancillary services management 07/10/2023 10:00 AM EST Ancillary Procedure [facility] [address] [facility] [address] [place] [phone] [facility] Start: 06-20-2023 End: 06-21-2024 DBT Breast - bilateral BI mammo bilateral screening tomosynthesis Imaging Routine Encounter for screening mammogram for malignant neoplasm of breast Expected: 06/20/2023, Expires: 06/21/2024 [facility] Service Area Work Phone: Comment on above: Expected: 06/20/2023, Expires: Start: 02-07-2023 Influenza vaccination [facility] Start: 02-04-2023 PTRECHADUL, Provider: Bibi Villela, Status: Pen, Time: 9:30 AM PTRECHADUL, Provider: Bibi Villela, Status: Pen, Time: 9:30 AM [facility] Work Phone: Start: 01-29-2023 [email or web address], Provider: Bibi Villela, Status: Pen, Time: 9:15 AM [email or web address], Provider: Bibi Villela, Status: Pen, Time: 9:15 AM [facility] Work Phone: Start: 01-21-2023 [email or web address], Provider: Bibi Villela, Status: Pen, Time: 9:00 AM [email or web address], Provider: Bibi Villela, Status: Pen, Time: 9:00 AM [facility] Work Phone: Start: 12-31-2022 PTRECHECKA, Provider: Bibi Villela, Status: Pen, Time: 10:00 AM PTRECHECKA, Provider: Bibi Villela, Status: Pen, Time: 10:00 AM [facility] Work Phone: Start: 12-24-2022 [email or web address], Provider: Bibi Villela, Status: Pen, Time: 11:30 AM [email or web address], Provider: Bibi Villela, Status: Pen, Time: 11:30 AM [facility] Work Phone: Start: 12-19-2022 [email or web address], Provider: Bibi Villela, Status: Pen, Time: 10:00 AM [email or web address], Provider: Bibi Villela, Status: Pen, Time: 10:00 AM [facility] Work Phone: Start: 12-13-2022 Lipid panel Lipid Panel [facility] Start: 12-13-2022 Thyroid stimulating hormone measurement TSH Level [facility] Start: 12-03-2022 [email or web address], Provider: Bibi Villela, Status: Pen, Time: 3:30 PM [email or web address], Provider: Bibi Villela, Status: Arcadio, Time: 3:30 PM [facility] Work Phone: Start: 11-18-2022 Administration of herpes zoster vaccine Zoster Vaccines (2 of 2) [facility] Start: 08-01-2022 End: 08-01-2022 Patient encounter procedure 08/01/2022 Office Visit Neurology David Ortiz MD [address] [facility] [address] [place] [address] [facility] Start: 06-19-2022 Screening for malignant neoplasm of breast Mammogram [facility] Start: 04-24-2022 End: 04-24-2022 Patient encounter procedure 04/24/2022 Appointment Radiology David Ortiz MD [address] [facility] [address] [place] [address] [facility] Start: 04-17-2022 Subsequent hospital visit by physician 04/17/2022 Hospital Encounter Radiology David Ortiz MD [address] [facility] [address] [place] [id number] [facility] Start: 03-15-2022 Hemoglobin A1c measurement [facility] Start: 02-07-2022 Influenza vaccination Sequential Influenza Vaccine (Season Ended) [facility] Start: 2020 Respiratory Syncytial Virus Immunization: Risk, 60-74 Risk, or 75+ (1 - Risk 60-74 years 1-dose series) Respiratory Syncytial Virus Immunization: Risk, 60-74 Risk, or 75+ (1 - Risk 60-74 years 1-dose series) [facility] Start: 2020 RSV High Risk: (Elderly (60+) or Population) (1 - Risk 60-74 years 1-dose series) RSV High Risk: (Elderly (60+) or Population) (1 - Risk 60-74 years 1-dose series) [facility] Start: 2020 RSV patients and/or patients aged 60+ years (1 - 1-dose 60+ series) RSV patients and/or patients aged 60+ years (1 - 1-dose 60+ series) [facility] Start: 05-03-2020 Pneumococcal vaccination Pneumococcal Vaccine (2 of 2 - PCV) [facility] Start: 05-03-2020 Pneumococcal Vaccine: Age 50+ (2 of 2 - PCV) Pneumococcal Vaccine: Age 50+ (2 of 2 - PCV) [facility] Start: 05-03-2020 Pneumococcal Vaccine: Ped or At-Risk (2 of 2 - PCV) Pneumococcal Vaccine: Ped or At-Risk (2 of 2 - PCV) [facility] Start: 05-03-2020 Pneumococcal Vaccine: Pediatrics (0 to 5 Years) and At-Risk Patients (6 to 64 Years) (2 - PCV) Pneumococcal Vaccine: Pediatrics (0 to 5 Years) and At-Risk Patients (6 to 64 Years) (2 - PCV) [facility] Start: 05-03-2020 Pneumococcal Vaccine: Pediatrics (0 to 5 Years) and At-Risk Patients (6 to 64 Years) (2 of 2 - PCV) Pneumococcal Vaccine: Pediatrics (0 to 5 Years) and At-Risk Patients (6 to 64 Years) (2 of 2 - PCV) [facility] Start: 05-18-2019 End: 05-18-2019 Office Visit 05/18/2019 Office Visit Sports Medicine Ti Rhodes MD [address] [place] [address] [phone] [facility] Start: 02-07-2019 Influenza vaccination given [facility] Start: 06-25-2018 Hemoglobin A1c measurement A1C [facility] Start: 03-25-2018 Hemoglobin A1c measurement A1C [facility] Start: 2010 Administration of herpes zoster vaccine Zoster Vaccines (1 of 2) [facility] Start: 2010 Screening for malignant neoplasm of colon [facility] Start: 2010 Zoster Vaccines (1 of 2) Zoster Vaccines (1 of 2) [facility] Start: 2000 Screening for malignant neoplasm of breast Mammogram [facility] Start: 1990 Screening for malignant neoplasm of cervix [facility] Start: 1982 DTaP/Tdap/Td Vaccines (1 - Tdap) DTaP/Tdap/Td Vaccines (1 - Tdap) [facility] Start: 1981 Screening for malignant neoplasm of cervix [facility] Start: 08-31-1979 Urine screening for protein Diabetes: Urine Protein Screening [facility] Start: 1978 Hepatitis C screening Hepatitis C Screening [facility] Start: 08-31-1975 HIV screening HIV Screening [facility] Start: 1972 Depression screening using PHQ-9 (Patient Health Questionnaire 9) score [facility] Start: 1970 Diabetic foot examination [facility] Start: 1970 Glaucoma screening [facility] Start: 1970 Microalbumin measurement, urine, quantitative Urine Microalbumin [facility] Start: 1970 Ophthalmic examination and evaluation Ophthalmology Exam [facility] Start: 1970 Urine screening for protein [facility] Start: 1965 COVID-19 Vaccine (#1) COVID-19 Vaccine (#1) [facility] Start: 08-31-1963 History and physical examination, annual for health maintenance Wellness Visit [facility] Start: 08-31-1963 Medicare Wellness Visit Medicare Wellness Visit [facility] Start: 1961 MMR Vaccines (1 of 1 - Standard series) MMR Vaccines (1 of 1 - Standard series) [facility] Start: 03-02-1961 COVID-19 Vaccine (#1) COVID-19 Vaccine (#1) [facility] Start: 1960 Depression screening using PHQ-9 (Patient Health Questionnaire 9) score DEPRESSION SCREENING (PHQ9) [facility] Start: 1960 Hepatitis C antibody, confirmatory test HEPATITIS C SCREENING [facility] Start: 1960 HIV screening HIV Screening [facility] Start: 1960 Medicare Annual Wellness Visit Medicare Annual Wellness Visit (AWV) [facility] Start: 1960 Physical therapy management PT Plan of Care [facility] Start: 1960 Protein mass conc Mammogram [facility] Start: 1960 Screening for malignant neoplasm of cervix PAP SMEAR [facility] Start: 1960 Screening for malignant neoplasm of colon [facility] Start: 1960 Screening mammography Mammogram [facility] Start: 1960 Tetanus vaccination TETANUS EVERY 10 YR [facility] Start: 1960 Urine screening for protein Diabetes: Urine Protein Screening [facility] Anion gap in Serum o r Plasma [facility] End: 04-16-2023 aPTT in Blood by Coagulation assay APTT Lab Routine NPH (normal pressure hydrocephalus) ([facility]) Abnormal coagulation profile 1 Occurrences starting 04/15/2022 until 04/16/2023 [facility] Comment on above: 1 Occurrences starting 04/15/2022 until 04/16/2023 aPTT in Blood by Coagulation assay APTT Lab Routine NPH (normal pressure hydrocephalus) ([facility]) Abnormal coagulation profile 04/15/2022 4:34 PM EST [facility] BUN/Creatinine ratio [facility] Calcium [Mass/volume ] in Serum or Plasma [facility] Carbon dioxide, tota l [Moles/volume] in Central venous blood [facility] End: 04-15-2023 Cell count and differential, cerebrospinal fluid CSF Cell Count with Differential Lab Routine NPH (normal pressure hydrocephalus) ([facility]) 1 Occurrences starting 04/15/2022 until 04/15/2023 [facility] Work Phone: Comment on above: 1 Occurrences starting 04/15/2022 until 04/15/2023 Cholesterol [Mass/volume] in Serum or Plasma [facility] Cholesterol in HDL [Mass/volume] in Serum or Plasma [facility] Creatinine [Mass/vol ume] in Serum or Plasma [facility] End: 04-15-2023 CSF Bacterial/Viral Detection By PCR (Lumbar Puncture Only) CSF Bacterial/Viral Detection By PCR (Lumbar Puncture Only) Microbiology Routine NPH (normal pressure hydrocephalus) ([facility]) 1 Occurrences starting 04/15/2022 until 04/15/2023 [facility] Comment on above: 1 Occurrences starting 04/15/2022 until 04/15/2023 End: 04-15-2023 CSF VDRL CSF VDRL Lab Routine NPH (normal pressure hydrocephalus) ([facility]) 1 Occurrences starting 04/15/2022 until 04/15/2023 [facility] Comment on above: 1 Occurrences starting 04/15/2022 until 04/15/2023 End: 01-29-2024 ECG 12 Lead ECG 12 Lead ECG STAT Once for 1 Occurrences starting 01/29/2024 until 01/29/2024 [facility] Service Area Work Phone: Comment on above: Once for 1 Occurrences starting 01/29/20 24 until 01/29/2024 Erythrocyte mean corpuscular volume determination [facility] End: 04-15-2023 Glucose [Mass/volume] in Cerebral spinal fluid Glucose, CSF Lab Routine NPH (normal pressure hydrocephalus) ([facility]) 1 Occurrences starting 04/15/2022 until 04/15/2023 [facility] Comment on above: 1 Occurrences starting 04/15/2022 until 04/15/2023 Glucose [Mass/volume ] in Serum or Plasma [facility] Hematocrit [Volume Fraction] of Blood [facility] Hemoglobin [Mass/vol ume] in Blood [facility] End: 09-21-2025 Hemoglobin A1c/Hemoglobin.total in Blood Hemoglobin A1c Lab Routine Type 2 diabetes mellitus without complication, without long-term current use of insulin ([facility]) 1 Occurrences starting 09/21/2024 until 09/21/2025 [facility] Work Phone: Comment on above: 1 Occurrences starting 09/21/2024 until 09/21/2025 Hemoglobin A1c/Hemoglobin.total in Blood [facility] End: 04-16-2023 INR in Platelet poor plasma by Coagulation assay PT/INR Lab Routine NPH (normal pressure hydrocephalus) Abnormal coagulation profile 1 Occurrences starting 04/15/2022 until 04/16/2023 [facility] Work Phone: Comment on above: 1 Occurrences starting 04/15/2022 until 04/16/2023 INR in Platelet poor plasma by Coagulation assay PT/INR Lab Routine NPH (normal pressure hydrocephalus) ([facility]) Abnormal coagulation profile 04/15/2022 4:34 PM EST [facility] Leukocytes [#/volume ] in Blood [facility] Low density lipoprot ein cholesterol measurement [facility] Mean corpuscular hemoglobin concentration determination [facility] Mean corpuscular hemoglobin determination [facility] Measurement of renal function [facility] End: 07-10-2023 MG Breast - bilateral Screening [facility] Service Area Work Phone: Comment on above: Once for 1 Occurrences starting 07/10/19 24 until 07/10/2023 End: 03-08-2026 MG Breast - bilateral Screening Mammography Screening Josh Bilateral Imaging Routine Encounter for screening mammogram for malignant neoplasm of breast 1 Occurrences starting 01/05/2025 until 03/08/2026 [facility] Work Phone: Comment on above: 1 Occurrences starting 01/05/2025 until 03/08/2026 End: 09-21-2025 Microalbumin measurement, urine, quantitative Microalbumin/Creatinine Ratio, UR Random Lab Routine Type 2 diabetes mellitus without complication, without long-term current use of insulin ([facility]) 1 Occurrences starting 09/21/2024 until 09/21/2025 [facility] Comment on above: 1 Occurrences starting 09/21/2024 until 09/21/2025 End: 09-23-2025 MTB SCREEN MTB SCREEN Lab Routine At risk for tuberculosis 1 Occurrences starting 09/23/2024 until 09/23/2025 [facility] Work Phone: Comment on above: 1 Occurrences starting 09/23/2024 until 09/23/2025 Platelets [#/volume] in Blood [facility] Potassium measurement [facility] End: 04-15-2023 Protein [Mass/volume] in Cerebral spinal fluid Protein, CSF Lab Routine NPH (normal pressure hydrocephalus) ([facility]) 1 Occurrences starting 04/15/2022 until 04/15/2023 [facility] Comment on above: 1 Occurrences starting 04/15/2022 until 04/15/2023 Red blood cell count [facility] Red cell distributio n width determination [facility] End: 09-09-2025 RF Upper gastrointestinal tract and Small bowel Views W barium contrast PO XR Upper GI With Small Bowel Follow Through Imaging Routine Abnormal CT of the abdomen 1 Occurrences starting 09/09/2024 until 09/09/2025 [facility] Work Phone: Comment on above: 1 Occurrences starting 09/09/2024 until 09/09/2025 Serum chloride measurement [facility] Sodium measurement [facility] End: 01-05-2026 Thyrotropin [Units/volume] in Serum or Plasma TSH with Reflex Free T4 Lab Routine Type 2 diabetes mellitus without complication, without long-term current use of insulin ([facility]) 1 Occurrences starting 01/05/2025 until 01/05/2026 [facility] Comment on above: 1 Occurrences starting 01/05/2025 until 01/05/2026 Total cholesterol:HD L ratio measurement [facility] Triglycerides measurement [facility] Troponin T.cardiac [Mass/volume] in Serum or Plasma by High sensitivity method [facility] Urea nitrogen [Mass/volume] in Serum or Plasma [facility] VLDL cholesterol measurement [facility] End: 02-02-2025 XR Wrist - left 2 Views XR Wrist Left 2 Views Imaging Routine Pain 1 Occurrences starting 02/03/2024 until 02/02/2025 [facility] Work Phone: Comment on above: 1 Occurrences starting 02/03/2024 until 02/02/2025 XR Wrist - left 2 Views XR Wrist Left 2 Views Imaging Routine Pain 02/03/2024 11:12 AM EDT [facility] End: 12-17-2024 XR Wrist - right 2 Views XR Wrist Right 2 Views Imaging Routine Pain 1 Occurrences starting 12/18/2023 until 12/17/2024 [facility] Work Phone: Comment on above: 1 Occurrences starting 12/18/2023 until 12/17/2024 End: 02-02-2025 XR Wrist - right 2 Views XR Wrist Right 2 Views Imaging Routine Pain 1 Occurrences starting 02/03/2024 until 02/02/2025 [facility] Work Phone: Comment on above: 1 Occurrences starting 02/03/2024 until 02/02/2025 Immunizations Immunization Date Immunization Notes Care Provider [facility] 07-14-2024 tetanus toxoid, redu amaya diphtheria toxoid, and acellular pertussis vaccine, adsorbed Mg Jacinta DO Work Phone: [facility] 03-30-2024 influenza, seasonal, injectable, preservative free Dr. Gamaliel Coats DO Work Phone: [facility] 03-30-2024 Pfizer Covid-19 (Comirnaty) Dr. Gamaliel Coats DO Work Phone: [facility] 03-30-2024 influenza virus vaccine, unspecified formulation Mg Jacinta DO Work Phone: [facility] 07-19-2023 tetanus toxoid, redu amaya diphtheria toxoid, and acellular pertussis vaccine, adsorbed Jasmyn Wade DO Work Phone: [facility] 03-27-2023 Covid (Spikevax) Dr. Gamaliel Coats DO Work Phone: [facility] 03-26-2023 influenza, injectabl e, quadrivalent, preservative free Rafa Obkavon DO Work Phone: [facility] Work Phone: 03-26-2023 influenza virus vaccine, unspecified formulation Huy Vasquez PA-C Work Phone: [facility] 02-14-2023 zoster vaccine recombinant Rafa Oberberry DO Work Phone: [facility] Work Phone: 09-23-2022 zoster vaccine recombinant Rafa Oberhauser DO Work Phone: [facility] Work Phone: 08-09-2022 tetanus toxoid, redu amaya diphtheria toxoid, and acellular pertussis vaccine, adsorbed Antwan Maharaj Other Phone: [facility] 04-11-2022 Moderna COVID-19 vaccine, bivalent, blue cap/laguna label *Check age/dose* Rafa Oberberry DO Work Phone: [facility] Work Phone: 03-28-2022 Influenza, injectabl e, Madin [place] Canine Kidney, preservative free, quadrivalent Rafa Obkavon DO Work Phone: [facility] Work Phone: 12-31-2021 Covid (Moderna) Dr. Gamaliel Coats DO Work Phone: [facility] 06-18-2021 Trishid (Moderna) Dr. Gamaliel Coats DO Work Phone: [facility] 03-21-2021 influenza, injectabl e, quadrivalent, preservative free Rafa Obkavon DO Work Phone: [facility] Work Phone: 07-03-2020 Covid (Moderna) Dr. Gamaliel Coats DO Work Phone: [facility] 06-05-2020 Kate Moura) Dr. Gamaliel Coats DO Work Phone: [facility] 03-24-2020 influenza, injectabl e, quadrivalent, preservative free Rafa Oberhauser DO Work Phone: [facility] Work Phone: 05-03-2019 pneumococcal polysaccharide vaccine, 23 valent Rafa Oberhauser DO Work Phone: [facility] Work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 stable to be discharged back to her long term 2. Diabetic ketoacidosis ? Managed with IV fluid insulin with monitoring of electrolyte resolved 3. Diabetes mellitus type 2 ? Patient presented with DKA which has since resolved patient home medication except for oral agents resumed placed on Accu-Cheks AC and at bedtime with sliding scale coverage 4. Essential hypertension ? Permissive hypertension protocol was followed on admission 5. Dyslipidemia ?Patient is on statin therapy, continued at home dose 6. Hypothyroidism ? Patient is on levothyroxine home dose continued 7. Class I obesity with BMI of 31 Plan?complicating care 8. Parkinson disease with associated dementia with unclear behavioral disturbance history: Complicates presentation, patient is on home carbidopa-levodopa and pimavanserin regimen, continue. 9. Leukocytosis ? No infectious etiology monitoring with daily CBC with differential 10. Depression with anxiety ? Patient is on mirtazapine at night 11. GERD ? Patient is a 12. DVT prophylaxis ? Subcu heparin Medications at Discharge Home Medications docusate sodium 100 mg capsule (DOK) 100 mg PO BID Constipation 01/13/17 sennosides 8.6 mg-docusate sodium 50 mg tablet (Senna Plus) 1 tab PO DAILY 01/13/17 Benacalorie 1 packet PO TID PRN intake less than 50% 12/18/24 acetaminophen 500 mg tablet 1,000 mg PO TID PRN fever or pain 12/18/24 amlodipine 2.5 mg tablet 2.5 mg PO DAILY 12/18/24 benztropine 1 mg tablet 1 mg PO DAILY 12/18/24 benztropine 1 mg tablet 1 mg PO QHS 12/18/24 carbidopa 25 mg-levodopa 100 mg tablet 2 tab PO TID 12/18/24 diclofenac sodium 1 % topical gel 4 g topical 4X/DAY karishma knees and right hip 12/18/24 empagliflozin 25 mg tablet (Jardiance) 25 mg PO DAILY 12/18/24 estradiol 0.01% (0.1 mg/gram) vaginal cream 0.5 appful vaginal MOWEFR 12/18/24 estradiol 0.01% (0.1 mg/gram) vaginal cream (Estrace) 0.5 appful vaginal DAILY 12/18/24 fluoride (sodium) 1.1 % dental cream (Denta 5000 Plus) 1 applic dental DAILY 12/18/24 levothyroxine 75 mcg tablet 75 mcg PO DAILY 12/18/24 melatonin 3 mg tablet 3 mg PO QHS 12/18/24 metformin 500 mg tablet,extended release 24 hr 1,000 mg PO BID 12/18/24 mirtazapine 30 mg disintegrating tablet 30 mg PO QHS 12/18/24 multivitamin with minerals-ferrous fumarate 15 mg iron tablet 1 tab PO DAILY 12/18/24 nut.tx.glucose intolerance,soy (Glucerna oral bar) 1 ea PO 4X/DAY 12/18/24 omeprazole 40 mg capsule,delayed release 40 mg PO DAILY 12/18/24 pimavanserin 34 mg capsule (Nuplazid) 34 mg PO DAILY 12/18/24 polyethylene glycol 3350 17 gram/dose oral powder 17 g PO DAILY 12/18/24 potassium chloride 10 mEq tablet,extended release(part/cryst) 10 meq PO DAILY 12/18/24 repaglinide 0.5 mg tablet 0.5 mg PO BID 12/18/24 aspirin 81 mg chewable tablet 81 mg PO BREAKFAST #30 tabs 12/21/24 atorvastatin 40 mg tablet (Lipitor) 40 mg PO QHS #30 tabs 12/21/24 insulin glargine-yfgn 100 unit/mL (3 mL) subcutaneous pen 5 unit (0.05 mL) subcut BID #15 mL 12/21/24 potassium, sodium phosphates 280 mg-160 mg-250 mg oral powder packet 1 packet POBID #60 ea 12/21/24 Hospital Course Summary of Care Provided Minutes Spent on Discharge: 35 Physical Exam Narrative GENERAL: Patient more interactive compared to previous HEENT: Atraumatic; normocephalic EYES; Anicteric, Normal Conjunctiva NECK; supple, normal thyroid, RESPIRATORY: Diminished to auscultation CARDIOVASCULAR: Regular S1 S2, GI: soft, normoactive bowel sounds, : No Renal angle tenderness; EXTREMITIES: No edema, no clubbing, MUSCULOSKELETAL: no muscle wasting NEURO: Awake; no lateralizing signs. SKIN: No Rash PSYCH; Flat affect Weight / BMI Weight Weight: 76.884 kg Body Mass Index (BMI) 31.1 ABG / Lab / Microbiology Data 12/21/24 05:38 12/21/24 05:38 Laboratory: Laboratory Results - last 24 hr 12/20/24 04:32: WBC 5.2, RBC 4.30, Hgb 12.7, Hct 41.9, MCV 97.4, MCH 29.5, MCHC 30.3 L, RDW Std Deviation 47.3 H, RDW Coeff of Luis Enrique 13.2, Plt Count 221, MPV 10.0, Immature Gran % (Auto) 0.200, Neut % (Auto) 66.0, Lymph % (Auto) 20.3, [place] % (Auto) 8.3, Eos % (Auto) 5.0, Baso % (Auto) 0.2, Absolute Neuts (auto) 3.4, Absolute Lymphs (auto) 1.05, Nucleated RBC % 0 12/20/24 13:06: POC Glucose 165 H 12/20/24 17:41: POC Glucose 105 12/20/24 21:02: POC Glucose 133 H 12/21/24 05:33: POC Glucose 125 H 12/21/24 05:38: WBC 6.3, RBC 4.35, Hgb 12.8, Hct 41.1, MCV 94.5, MCH 29.4, MCHC 31.1 L, RDW Std Deviation 45.0 H, RDW Coeff of Luis Enrique 13.0, Plt Count 219, MPV 9.3,Immature Gran % (Auto) 0.300, Neut % (Auto) 76.1 H, Lymph % (Auto) 13.5 L, [place] % (Auto) 6.4, Eos % (Auto) 3.5, Baso % (Auto) 0.2, AbsoluteNeuts (auto) 4.8, Absolute Lymphs (auto) 0.85, Nucleated RBC % 0, Sodium 144, Potassium 3.7, Chloride 113 H, Carbon Dioxide 20.4 L, Anion Gap 11, BUN 11, Creatinine 0.57 L, Estim Creat Clear Calc 95.73, Est GFR (MDRD) Non-Af 102, BUN/Creatinine Ratio 19.6, Glucose 123 H, Calcium 7.8, Phosphorus 1.8L, Magnesium 1.8 Microbiology: Microbiology 12/19/24 02:15 Mucosa - Nasopharyngeal Respiratory Panel (PCR) - Final Radiography Diagnostic Testing: Radiology Impression Brain MRI 12/18/24 22:20 IMPRESSION: 1. No evidence of acute intracranial pathology. 2. Cerebral atrophy with chronic ischemic white matter disease. 3. Other findings as noted. Reading Location: [place] [address] Echocardiogram 12/19/24 01:05 Interpretation Summary The LV ejection fraction is 65 %. Bubble contrast study is negative for PFO/ASD. Mild focal mitral valve calcification of the anterior leaflet. Ordering Physician: Jayashree Florez Performed By: Florencia Real RDCS D/C Instructions Discharge Activity: Return to Normal Activity Call your doctor if you observe: Fever of 101 or Higher, Shortness of breath, Fainting spells and Chest pain DC O2, CPAP, BIPAP Needs Home O2 Discharge instructions: No Meaningful Use Info Meaningful Use Meaningful Use Diagnoses (Choose all that apply): None applicable Discharge Plan Admission Admit Date/Time: 12/19/24 12:38 Attending Provider: Antwan Covington Primary Care Provider: Care Physician,No Primary Consulting Providers: Gen Yarbrough; Namrata Del Angel; Jaquelin Ji; Justa Hernandez; Rebecca Parrish; Thor Felix; Heide Apple; Bryan Romano; Ramón Gifford; Jos Robles; Melvina Rollins; Huy Wilkes; Radha Puga; Marisela Rivero; María Curry; Oliver Montelongo; Abhijit Hand; Marcel Ayoub; Ayesha Mckenna; Dhaval Sutton;Jayashree Florez; Ryanne Simons Discharge Orders/Prescriptions Prescriptions: New aspirin 81 mg Tablet,Chewable 81 mg PO BREAKFAST Qty: 30 0RF atorvastatin [Lipitor] 40 mg tablet 40 mg PO QHS Qty: 30 0RF insulin glargine-yfgn 100 unit/mL (3 mL) Insulin Pen 5 unit subcut BID Qty: 15 0RF potassium, sodium phosphates 280-160-250 mg Powder In Packet 1 packet PO BID Qty: 60 0RF Continued sennosides-docusate sodium [Senna Plus] 1 EACH tablet 1 tab PO DAILY docusate sodium [DOK] 100 MG capsule 100 mg PO BID acetaminophen 500 mg tablet 1,000 mg PO TID PRN (Reason: fever or pain) Benacalorie 1 packet PO TID PRN (Reason: intake less than 50%) benztropine 1 mg tablet 1 mg PO QHS fluoride (sodium) [Denta 5000 Plus] 1.1 % cream 1 applic dental DAILY diclofenac sodium 1 % gel 4 g topical 4X/DAY estradiol 0.01 % (0.1 mg/gram) cream 0.5 appful vaginal MOWEFR Glucerna Bar 1 ea PO 4X/DAY amlodipine 2.5 mg tablet 2.5 mg PO DAILY benztropine 1 mg tablet 1 mg PO DAILY carbidopa-levodopa 25-100 mg tablet 2 tab PO TID estradiol [Estrace] 0.01 % (0.1 mg/gram) cream 0.5 appful vaginal DAILY Rx Instructions: for 14 days mirtazapine 30 mg tablet,disintegrating 30 mg PO QHS melatonin 3 mg tablet 3 mg PO QHS omeprazole 40 mg capsule,delayed release(DR/EC) 40 mg PO DAILY levothyroxine 75 mcg tablet 75 mcg PO DAILY polyethylene glycol 3350 17 gram/dose powder 17 g PO DAILY metformin 500 mg tablet extended release 24 hr 1,000 mg PO BID Jardiance 25 mg tablet 25 mg PO DAILY Nuplazid 34 mg capsule 34 mg PO DAILY aurolggo-hcf-amrwbhu fumarate 15 mg iron tablet 1 tab PO DAILY repaglinide 0.5 mg tablet 0.5 mg PO BID potassium chloride 10 mEq tablet,ER particles/crystals 10 meq PO DAILY Discontinued atorvastatin 10 mg tablet 10 mg PO DAILY amlodipine 2.5 mg tablet 2.5 mg PO DAILY carbidopa-levodopa 25-100 mg tablet 2 tab PO TID glipizide 10 mg tablet 10 mg PO BID atorvastatin 10 mg tablet 10 mg PO DAILY diclofenac sodium 1 % gel 4 g topical 4X/DAY glipizide 10 mg tablet 10 mg PO BID Referrals / Follow Up: Antwan Watters MD [Non-Staff] - Within 1 Week Care Physician,No Primary [Primary Care Provider] - Disposition Disposition (needs filled in before D/C Order can be placed): NonSkilled NH/Intermed Care Charges/Coding Visit Charges Inpatient E&M: 50064 Disch Hosp >30min 12/21/24 0828 Cosigner Signature (if applicable): CC: Dr. Antwan Covington MD; No Primary Care Physician~ Signed [facility]07-15-2025 [facility] Medical Records Department [address] [place] [address] Discharge Summary 12/21/24 0820 MR#: [id number] Acct: [id number] Name: SHAJI ESQUIVEL Rep #: [id number] : 1960 64 From: Antwan Covington MD PCP: Care Physician,No Primary Status:ADM IN Location: ICU [id number] Providers Date of Admission: 12/19/24 Date of Discharge: 12/21/24 Primary Care Physician: No Primary Care Phys Consultations 12/18/24 23:05 Consult: Tele-Neurology Routine Consulting Provider: [facility] Reason for Consult: Acute Ischemic Stroke/TIA EMERGENT Consult: No MD Notified: Yes Date Notified: 12/18/24 Time Notified: 23:21 Method of Notification: Answering Service Nursing Unit Staff Notify [facility] of Tele-Neurology Consult: Yes Reason For Visit: STROKELIKE SYMPTOMS Diagnosis Discharge Diagnosis (1) Stroke-like symptoms: Status: Acute Code(s): R29.90 - Unspecified symptoms and signs involving the nervous system Plan Patient is a 64-year-old lady who presented with slurred speech speech and facial droop. Was also found to have markedly elevated glucose levels consistent with DKA admitted to monitored bed for subsequent management 1. Acute metabolic encephalopathy ??? Secondary to DKA. Patient also presented with strokelike symptoms. Admitted to the intensive care unit with treatment of the underlying clinical etiology. Patient was seen in consultation by [facility] recommended for patient to undergo subsequent evaluation with MRI of the brain as well as MRA of head and neck. Also requested for transthoracic echo in addition to occupational and physical therapy as well as speech eval 12/21/2024 patient back to baseline, patient medically stable to be discharged back to her long term 2. Diabetic ketoacidosis ??? Managed with IV fluid insulin with monitoring of electrolyte resolved 3. Diabetes mellitus type 2 ??? Patient presented with DKA which has since resolved patient home medication except for oral agents resumed placed on Accu-Cheks AC and at bedtime with sliding scale coverage 4. Essential hypertension ??? Permissive hypertension protocol was followed on admission 5. Dyslipidemia ???Patient is on statin therapy, continued at home dose 6. Hypothyroidism ??? Patient is on levothyroxine home dose continued 7. Class I obesity with BMI of 31 Plan???complicating care 8. Parkinson disease with associated dementia with unclear behavioral disturbance history: Complicates presentation, patient is on home carbidopa- levodopa and pimavanserin regimen, continue. 9. Leukocytosis ??? No infectious etiology monitoring with daily CBC with differential 10. Depression with anxiety ??? Patient is on mirtazapine at night 11. GERD ??? Patient is a 12. DVT prophylaxis ??? Subcu heparin Medications at Discharge Home Medications docusate sodium 100 mg capsule (DOK) 100 mg PO BID Constipation 01/13/17 sennosides 8.6 mg-docusate sodium 50 mg tablet (Senna Plus) 1 tab PO DAILY 01/13/17 Benacalorie 1 packet PO TID PRN intake less than 50% 12/18/24 acetaminophen 500 mg tablet 1,000 mg PO TID PRN fever or pain 12/18/24 amlodipine 2.5 mg tablet 2.5 mg PO DAILY 12/18/24 benztropine 1 mg tablet 1 mg PO DAILY 12/18/24 benztropine 1 mg tablet 1 mg PO QHS 12/18/24 carbidopa 25 mg-levodopa 100 mg tablet 2 tab PO TID 12/18/24 diclofenac sodium 1 % topical gel 4 g topical 4X/DAY karishma knees and right hip 12/18/24 empagliflozin 25 mg tablet (Jardiance) 25 mg PO DAILY 12/18/24 estradiol 0.01% (0.1 mg/gram) vaginal cream 0.5 appful vaginal MOWEFR 12/18/24 estradiol 0.01% (0.1 mg/gram) vaginal cream (Estrace) 0.5 appful vaginal DAILY 12/18/24 fluoride (sodium) 1.1 % dental cream (Denta 5000 Plus) 1 applic dental DAILY 12/18/24 levothyroxine 75 mcg tablet 75 mcg PO DAILY 12/18/24 melatonin 3 mg tablet 3 mg PO QHS 12/18/24 metformin 500 mg tablet,extended release 24 hr 1,000 mg PO BID 12/18/24 mirtazapine 30 mg disintegrating tablet 30 mg PO QHS 12/18/24 multivitamin with minerals-ferrous fumarate 15 mg iron tablet 1 tab PO DAILY 12/18/24 nut.tx.glucose intolerance,soy (Glucerna oral bar) 1 ea PO 4X/DAY 12/18/24 omeprazole 40 mg capsule,delayed release 40 mg PO DAILY 12/18/24 pimavanserin 34 mg capsule (Nuplazid) 34 mg PO DAILY 12/18/24 polyethylene glycol 3350 17 gram/dose oral powder 17 g PO DAILY 12/18/24 potassium chloride 10 mEq tablet,extended release(part/cryst) 10 meq PO DAILY 12/18/24 repaglinide 0.5 mg tablet 0.5 mg PO BID 12/18/24 aspirin 81 mg chewable tablet 81 mg PO BREAKFAST #30 tabs 12/21/24 atorvastatin 40 mg tablet (Lipitor) 40 mg PO QHS #30 tabs 12/21/24 insulin glargine-yfgn 100 unit/mL (3 mL) subcutaneous pen 5 unit (0.05 mL) subcut BID #15 mL 12/21/24 potassium, sodium phosphates 280 mg-160 mg-250 mg oral powder packet 1 packet PO BID #60 ea 12/21 (more content not included)...[facility] 12-20-2024 Progress note Author Antwan Covington [facility] Note Date/Time December 20, 2024 1:02 pm [facility] Medical Records Department [address] [place] [address] Progress Note - Hospitalist 12/20/24827 MR#: [id number] Acct: [id number] Name: SHAJI ESQUIVEL Rep #:[id number] : 1960 64 From: Antwan Covington MD PCP: Care Physician,No Primary Status :ADM IN Location: ICU CVICU20 3-1 Reason for Visit Chief Complaint: Slurred speech with facial droop Subjective Subjective Patient is a 64-year-old lady who presented with slurred speech speech and facial droop. Was also found to have markedly elevated glucose levels consistent with DKA admitted to monitored bed for subsequent management Objective Data Objective Data Vital Signs: Vital Signs Temp Pulse Resp BP Pulse Ox O2 Del Method O2 Flow Rate 98.0 F 77 21 H 132/71 H 97 Room Air 3 12/20/24 00:00 12/20/24 06:00 12/20/24 06:00 12/20/24 06:00 12/20/24 07:52 12/20/24 07:52 12/18/24 21:04 Oxygen Flow Rate (L/min) 3 Oxygen Delivery Method Room Air Weight: 74.616 kg Body Mass Index (BMI) 30.2 Intake & Output: Intake and Output for Last 24 Hours 12/18/24 12/19/24 12/20/24 23:59 23:59 23:59 Intake Total 0 / 0 6580.90 / 6580.90 1000 / 1000 Output Total 0 / 0 1850 / 1850 1250 / 1250 Balance 0 / 0 4730.90 / 4730.90 -250 / -250 Lab / Micro Data 12/19/24 02:15 12/20/24 04:32 Labs: Laboratory Results - last 24 hr 12/19/24 07:50: Sodium 144, Potassium 3.3, Chloride 106, Carbon Dioxide 21.2, Anion Gap 17 H, BUN 34 H, Creatinine 1.03, Estim Creat Clear Calc 59.36, Est GFR (MDRD) Non-Af 61, BUN/Creatinine Ratio 33.0 H, Glucose 149 H, Calcium 9.1, Procalcitonin 0.49 H 12/19/24 09:04: POC Glucose 106 12/19/24 10:03: POC Glucose 80 12/19/24 11:07: POC Glucose 64 L 12/19/24 12:05: POC Glucose 93 12/19/24 12:20: Sodium 139, Potassium 6.8 H*, Chloride 110 H, Carbon Dioxide 20.7 L, Anion Gap 8, BUN 26 H, Creatinine 0.87, Estim Creat Clear Calc 70.27, Est GFR (MDRD) Non-Af 74, BUN/Creatinine Ratio 30.0 H, Glucose 106 H, Calcium 7.3 L 12/19/24 13:41: POC Glucose 91 12/19/24 14:32: POC Glucose 93 12/19/24 15:24: Sodium Cancelled, Potassium Cancelled, Chloride Cancelled, Carbon Dioxide Cancelled, Anion Gap Cancelled, BUN Cancelled, Creatinine Cancelled, Estim Creat Clear Calc Cancelled, Est GFR (MDRD) Non-Af Cancelled, BUN/Creatinine Ratio Cancelled, Glucose Cancelled, Calcium Cancelled 12/19/24 16:50: Sodium 142, Potassium 3.5, Chloride 114 H, Carbon Dioxide 18.3 L, Anion Gap 9, BUN 18, Creatinine 0.64 L, Estim Creat Clear Calc 95.53, Est GFR (MDRD) Non-Af 99, BUN/Creatinine Ratio 28.7 H, Glucose 178 H, Calcium 6.6 L 12/19/24 17:28: POC Glucose 122 H 12/19/24 20:07: POC Glucose 130 H 12/20/24 04:32: Sodium 145, Potassium 3.6, Chloride 115 H, Carbon Dioxide 20.0 L, Anion Gap 10, BUN 14, Creatinine 0.67 L, Estim Creat Clear Calc 80.22, Est GFR(MDRD) Non-Af 98, BUN/Creatinine Ratio 21.6 H, Glucose 112 H, Calcium 8.0, TotalBilirubin 0.19, AST 22, ALT 22, Alkaline Phosphatase 42, Total Protein 5.4 L, Albumin 3.1 L, Globulin 2.3, Albumin/Globulin Ratio 1.3 12/20/24 04:40: POC Glucose 114 H Micro: Microbiology 12/19/24 02:15 Mucosa - Nasopharyngeal Respiratory Panel (PCR) - Final Physical Exam Narrative GENERAL: Not comprehensible HEENT: Atraumatic; normocephalic EYES; Anicteric, Normal Conjunctiva NECK; supple, normal thyroid, RESPIRATORY: Diminished to auscultation CARDIOVASCULAR: Regular S1 S2, GI: soft, normoactive bowel sounds, : No Renal angle tenderness; EXTREMITIES: No edema, no clubbing, MUSCULOSKELETAL: no muscle wasting NEURO: Awake; no lateralizing signs. SKIN: No Rash PSYCH; Flat affect Assessment & Plan Assessment/Plan (1) Stroke-like symptoms: PLAN: Plan Patient is a 64-year-old lady who presented with slurred speech speech and facial droop. Was also found to have markedly elevated glucose levels consistent with DKA admitted to monitored bed for subsequent management 1. Acute metabolic encephalopathy ? Secondary to DKA. Patient also presented with strokelike symptoms. Admitted to the intensive care unit with treatment of the underlying clinical etiology. Patient was seen in consultation by [facility] recommended for patientto undergo subsequent evaluation with MRI of the brain as well as MRA of head and neck. Also requested for transthoracic echo in addition to occupational andphysical therapy as well as speech eval 2. Diabetic ketoacidosis ? Managed with IV fluid insulin with monitoring of electrolyte resolved 3. Diabetes mellitus type 2 ? Patient presented with DKA which has since resolved patient home medication except for oral agents resumed placed on Accu-Cheks AC and at bedtime with sliding scale coverage 4. Essential hypertension ? Permissive hypertension protocol was followed on admission 5. Dyslipidemia ?Patient is on statin therapy, continued at home dose 6. Hypothyroidism ? Patient is on levothyroxine home dose continued 7. Class I obesity with BMI of 31 Plan?complicating care 8. Parkinson disease with associated dementia with unclear behavioral disturbance history: Complicates presentation, patient is on home carbidopa-levodopa and pimavanserin regimen, continue. 9. Leukocytosis ? No infectious etiology monitoring with daily CBC with differential 10. Depression with anxiety ? Patient is on mirtazapine at night 11. GERD ? Patient is a 12. DVT prophylaxis ? Subcu heparin Charges/Coding Visit Charges Inpatient E&M: 62011 Subs Hosp L2 NIHSS NIHSS Nursing Documentation NIHSS Nursing Documentation: NIHSS: Ischemic Stroke/TIA Start: 12/18/24 23:05 Text: For PCU Patients: NIH and Neuro Check every 4 Status: Active hours, PRN and with change in RN caregiver. Freq: [id number] Protocol: Activity Type Activity Date Activity User E-sign Co-sign Detail Recorded Client Recorded Date Recorded By Document 12/20/24 06:00 TD [id number] 12/20/24 06:40 TD 12/20/24 06:00 NIH Stroke Scale [NIHSS] A score of 0 is normal or asymptomatic . Total possible score is 42. Inpatient: RN or Physician to activate a stroke alert for onset of new stroke symptoms or with NIHSS increase >/= 3 points. Following change in neurological status, NIHSS will be performed per physician order or more frequently PRN. -1a. Level of Consciousness 0 - Alert; keenly responsive -1b. LOC Questions 1 - Answers ONE question correctly -1c. LOC Commands 0 - Performs BOTH tasks correctly -2. Best Gaze 0 - Normal -3. Visual 0 - No visual loss -4. Facial Palsy 0 - Normal symmetrical movements -5a. Left Arm 1 - Drift; arm drifts downward but doesn?t hit the bed -5b. Right Arm 1 - Drift; arm drifts downward but doesn?t hit the bed -6a. Left Leg 1 - Drift; leg falls by the end of 5- seconds, but does not hit bed -6b. Right Leg 1 - Drift; leg falls by the end of 5- seconds, but does not hit bed -7. Limb Ataxia 0 - Absent -8. Sensory 0 - Normal; no sensory loss -9. Best Language 2 - Severe aphasia; -10. Dysarthria 1 = Mild-to- moderate dysarthria; -11. Extinction and Inattention 0 - No abnormality -Total 8 Query Text:A score of 0 is normal or asymptomatic. Total possible score is 42 . ED: Notify Physician for NIHSS increase by > / = 3 points. Inpatient: RN or Physician to activate a stroke alert for NIHSS increase of > / = 3 points. 12/20/24 1302 <Electronically signed by Antwan Covington MD> Cosigner Signature (if applicable): CC: ~ Signed [facility] Work Phone: [phone]) 740-514507-14-2025 Progress note [facility] Medical Records Department [address] [place] [address] Progress Note - Hospitalist 12/20/24 0828 MR#: [id number] Acct: [id number] Name: SHAJI ESQUIVEL Rep #:[id number] : 1960 64 From: Antwan Covington MD PCP: Care Physician,No Primary Status :ADM IN Location: ICU CVICU20 3-1 Reason for Visit Chief Complaint: Slurred speech with facial droop Subjective Subjective Patient is a 64-year-old lady who presented with slurred speech speech and facial droop. Was also found to have markedly elevated glucose levels consistent with DKA admitted to monitored bed for subsequent management Objective Data Objective Data Vital Signs: Vital Signs Temp Pulse Resp BP Pulse Ox O2 Del Method O2 Flow Rate 98.0 F 77 21 H 132/71 H 97 Room Air 3 12/20/24 00:00 12/20/24 06:00 12/20/24 06:00 12/20/24 06:00 12/20/24 07:52 12/20/24 07:52 12/18/24 21:04 Oxygen Flow Rate (L/min) 3 Oxygen Delivery Method Room Air Weight: 74.616 kg Body Mass Index (BMI) 30.2 Intake & Output: Intake and Output for Last 24 Hours 12/18/24 12/19/24 12/20/24 23:59 23:59 23:59 Intake Total 0 / 0 6580.90 / 6580.90 1000 / 1000 Output Total 0 / 0 1850 / 1850 1250 / 1250 Balance 0 / 0 4730.90 / 4730.90 -250 / -250 Lab / Micro Data 12/19/24 02:15 12/20/24 04:32 Labs: Laboratory Results - last 24 hr 12/19/24 07:50: Sodium 144, Potassium 3.3, Chloride 106, Carbon Dioxide 21.2, Anion Gap 17 H, BUN 34 H, Creatinine 1.03, Estim Creat Clear Calc 59.36, Est GFR (MDRD) Non-Af 61, BUN/Creatinine Ratio 33.0 H, Glucose 149 H, Calcium 9.1, Procalcitonin 0.49 H 12/19/24 09:04: POC Glucose 106 12/19/24 10:03: POC Glucose 80 12/19/24 11:07: POC Glucose 64 L 12/19/24 12:05: POC Glucose 93 12/19/24 12:20: Sodium 139, Potassium 6.8 H*, Chloride 110 H, Carbon Dioxide 20.7 L, Anion Gap 8, BUN 26 H, Creatinine 0.87, Estim Creat Clear Calc 70.27, Est GFR (MDRD) Non-Af 74, BUN/Creatinine Ratio 30.0 H, Glucose 106 H, Calcium 7.3 L 12/19/24 13:41: POC Glucose 91 12/19/24 14:32: POC Glucose 93 12/19/24 15:24: Sodium Cancelled, Potassium Cancelled, Chloride Cancelled, Carbon Dioxide Cancelled, Anion Gap Cancelled, BUN Cancelled, Creatinine Cancelled, Estim Creat Clear Calc Cancelled, Est GFR (MDRD) Non-Af Cancelled, BUN/Creatinine Ratio Cancelled, Glucose Cancelled, Calcium Cancelled 12/19/24 16:50: Sodium 142, Potassium 3.5, Chloride 114 H, Carbon Dioxide 18.3 L, Anion Gap 9, BUN 18, Creatinine 0.64 L, Estim Creat Clear Calc 95.53, Est GFR (MDRD) Non-Af 99, BUN/Creatinine Ratio 28.7 H, Glucose 178 H, Calcium 6.6 L 12/19/24 17:28: POC Glucose 122 H 12/19/24 20:07: POC Glucose 130 H 12/20/24 04:32: Sodium 145, Potassium 3.6, Chloride 115 H, Carbon Dioxide 20.0 L, Anion Gap 10, BUN14, Creatinine 0.67 L, Estim Creat Clear Calc 80.22, Est GFR(MDRD) Non-Af 98, BUN/Creatinine Ratio 21.6 H, Glucose 112 H, Calcium 8.0, TotalBilirubin 0.19, AST 22, ALT 22, Alkaline Phosphatase 42, Total Protein 5.4 L, Albumin 3.1 L, Globulin 2.3, Albumin/Globulin Ratio 1.3 12/20/24 04:40: POC Glucose 114 H Micro: Microbiology 12/19/24 02:15 Mucosa - Nasopharyngeal Respiratory Panel (PCR) - Final Physical Exam Narrative GENERAL: Not comprehensible HEENT: Atraumatic; normocephalic EYES; Anicteric, Normal Conjunctiva NECK; supple, normal thyroid, RESPIRATORY: Diminished to auscultation CARDIOVASCULAR: Regular S1 S2, GI: soft, normoactive bowel sounds, : No Renal angle tenderness; EXTREMITIES: No edema, no clubbing, MUSCULOSKELETAL: no muscle wasting NEURO: Awake; no lateralizing signs. SKIN: No Rash PSYCH; Flat affect Assessment & Plan Assessment/Plan (1) Stroke-like symptoms: PLAN: Plan Patient is a 64-year-old lady who presented with slurred speech speech and facial droop. Was also found to have markedly elevated glucose levels consistent with DKA admitted to monitored bed for subsequent management 1. Acute metabolic encephalopathy ? Secondary to DKA. Patient also presented with strokelike symptoms. Admitted to the intensive careunit with treatment of the underlying clinical etiology. Patient was seen in consultation by [facility] recommended for patientto undergo subsequent evaluation with MRI of the brain as wellas MRA of head and neck. Also requested for transthoracic echo in addition to occupational andphysical therapy as well as speech eval 2. Diabetic ketoacidosis ? Managed with IV fluid insulin with monitoring of electrolyte resolved 3. Diabetes mellitus type 2 ? Patient presented with DKA which has since resolved patient home medication except for oral agents resumed placed on Accu-Cheks AC and at bedtime with sliding scale coverage 4. Essential hypertension ? Permissive hypertension protocol was followed on admission 5. Dyslipidemia ?Patient is on statin therapy, continued at home dose 6. Hypothyroidism ? Patient is on levothyroxine home dose continued 7. Class I obesity with BMI of 31 Plan?complicating care 8. Parkinson disease with associated dementia with unclear behavioral disturbance history: Complicates presentation, patient is on home carbidopa-levodopa and pimavanserin regimen, continue. 9. Leukocytosis ? No infectious etiology monitoring with daily CBC with differential 10. Depression with anxiety ? Patient is on mirtazapine at night 11. GERD ? Patient is a 12. DVT prophylaxis ? Subcu heparin Charges/Coding Visit Charges Inpatient E&M: 01124 Subs Hosp L2 NIHSS NIHSS Nursing Documentation NIHSS Nursing Documentation: NIHSS: Ischemic Stroke/TIA Start: 12/18/24 23:05 Text: For PCU Patients: NIH and Neuro Check every 4 Status: Active hours, PRN and with change in RN caregiver. Freq: [id number] Protocol: Activity Type Activity Date Activity User E-sign Co-sign Detail Recorded Client Recorded Date Recorded By Document 12/20/24 06:00 TD [id number] 12/20/24 06:40 TD 12/20/24 06:00 NIH Stroke Scale [NIHSS] A score of 0 is normal or asymptomatic . Total possible score is 42. Inpatient: RN or Physician to activate a stroke alert for onset of new stroke symptoms or with NIHSS increase >/= 3 points. Following change in neurological status, NIHSS will be performed per physician order or more frequently PRN. -1a. Level of Consciousness 0 - Alert; keenly responsive -1b. LOC Questions 1 - Answers ONE question correctly -1c. LOC Commands 0 - Performs BOTH tasks correctly -2. Best Gaze 0 - Normal -3. Visual 0 - No visual loss -4. Facial Palsy 0 - Normal symmetrical movements -5a. Left Arm 1 - Drift; arm drifts downward but doesn?t hit the bed -5b. Right Arm 1 - Drift; arm drifts downward but doesn?t hit the bed -6a. Left Leg 1 - Drift; leg falls by the end of 5- seconds, but does not hit bed -6b. Right Leg 1 - Drift; leg falls by the end of 5- seconds, but does not hit bed -7. Limb Ataxia 0 - Absent -8. Sensory 0 - Normal; no sensory loss -9. Best Language 2 - Severe aphasia; -10. Dysarthria 1 = Mild-to- moderate dysarthria; -11. Extinction and Inattention 0 - No abnormality -Total 8 Query Text:A score of 0 is normal or asymptomatic. Total possible score is 42 . ED: Notify Physician for NIHSS increase by > / = 3 points. Inpatient: RN or Physician to activate a stroke alert for NIHSS increase of > / = 3 points. 12/20/24 1302 Cosigner Signature (if applicable): CC: ~ Signed [facility]07-13-2025 Progress note Author Ryanne Simons [facility] Note Date/Time December 19, 2024 6:[address] [facility] Medical Records Department [address] [place] [address] Progress Note 12/19/24 1840 MR#: [id number] Acct: [id number] Name: SHAJI ESQUIVEL Rep #:[id number] : 1960 64 From: Ryanne Simons MD PCP: Care Physician,No Primary Status :ADM IN Location: ICU CVICU20 3-1 Progress Note GAP closed x 2, bicarb appropriate, will transition of insulin drip, will start low dose lantus given only on oral until oral intake appropriate, maintain on q 6 hour accu checks and ISS. Will trial oral intake and if appropriate maintain on ADA diet. If passes then may start to add her oral regimen back. 12/19/241840 <Electronically signed by Ryanne Simons MD> Ryanne Simons MD Cosigner Signature (if applicable): CC: ~ Signed [facility] Work Phone: [phone] Progress note [facility] Medical Records Department [address] [place] [address] Progress Note 12/19/241839 MR#: [id number] Acct: [id number] Name: SHAJI ESQUIVEL Rep #:[id number] : 1960 64 From: Ryanne Simons MD PCP: Care Physician,No Primary Status :ADM IN Location: ICU CVICU20 3-1 Progress Note GAP closed x 2, bicarb appropriate, will transition of insulin drip, will start low dose lantus given only on oral until oral intake appropriate, maintain on q 6 hour accu checks and ISS. Will trial oral intake and if appropriate maintain on ADA diet. If passes then may start to add her oral regimen back. 12/19/241840 Ryanne Simons MD Cosigner Signature (if applicable): CC: ~ Signed [facility]07-13-2025 Progress note Author Thor Felix [facility] Note Date/Time December 19, 2024 1:33 pm [facility] Medical Records Department [address] [place] [address] Progress Note - Neurology 12/19/24 1317 MR#: [id number] Acct: [id number] Name: SHAJI ESQUIVEL Rep #:[id number] : 1960 64 From: Thor Lindquist PCP: Care Physician,No Primary Status :ADM IN Location: ICU CVICU20 3-1 Assessment and Plan: Neuro Assessment/Plan Telestroke Progress Note (Audio-video interface) 64 y/o woman with h/o dementia due to chronic whole body pain, Parkinson's disease, hypertension, hyperlipidemia and type 2 diabetes p/w altered mental state, dysarthria and transient left facial droop. At baseline, lives in assisted living for the past 6 years or so, needs assistance to ambulate, will otherwise use a wheelchair. mRS- 4. Typically does not know the month or age. CT brain- no acute intracranial process with small vessel disease. Due to contrast allergy, CTA deferred. White count of 13 noticed. TNK not administered due to minor symptoms. Overnight, got admitted to ICU for management of DKA. LDL-38. A1c-7.4. Today, patient seems lethargic, wakes up promptly and started grimaces and cursing, seems to be in pain and moving all extremities on sternal rub. No obvious facial droop. Difficult to assess as patient is not cooperative. Diagnosis: Metabolic Encephalopathy in the setting of DKA and stroke recrusdesence. Needs to rule out stroke given difficult exam to assess Plan: Continue ASA and statin. Manage DKA. Metabolic/infectious workup. Follow up MRI brain along with MRA head and neck and if unable to obtain due to mental state then obtain repeat CT head today and follow up carotid doppler. Follow up TTE. OT/PT/SCALE SHOOTER. Control of vascular risk factors. I personally attended this patient and spent a total time of 30 minutes evaluating this patient including clinical assessment, review of chart, medical history imaging, and determining appropriate treatment and workup. Subject: Neurology Subjective 64 y/o woman with h/o dementia due to chronic whole body pain, Parkinson's disease, hypertension, hyperlipidemia and type 2 diabetes p/w altered mental state, dysarthria and transient left facial droop. At baseline, lives in assisted living for the past 6 years or so, needs assistance to ambulate, will otherwise use a wheelchair. mRS- 4. Typically does not know the month or age. CT brain- no acute intracranial process with small vessel disease. Due to contrast allergy, CTA deferred. White count of 13 noticed. TNK not administered due to minor symptoms. Overnight, got admitted to ICU for management of DKA. LDL-38. A1c-7.4. Today, patient seems lethargic, wakes up promptly and started grimaces and cursing, seems to be in pain and moving all extremities on sternal rub. No obvious facial droop. Difficult to assess as patient is not cooperative. EEG Results Procedure Details EEG Procedure Details: SHAJI ESQUIVEL is a 64 year old F with a past medical history of , who presentsfor evaluation of Electroencephalogram on DATE at TIME Objective Data Objective Data Vital Signs: Vital Signs Temp Pulse Resp BP Pulse Ox O2 Del Method O2 Flow Rate 98.7 F 82 12 117/69 98 Room Air 3 12/19/24 08:00 12/19/24 10:00 12/19/24 10:00 12/19/24 10:00 12/19/24 10:00 12/19/24 10:00 12/18/24 21:04 Oxygen Flow Rate (L/min) 3 Oxygen Delivery Method Room Air Weight: 95.2 kg Body Mass Index (BMI) 38.3 Intake & Output: Intake and Output for Last 24 Hours 12/17/24 12/18/24 12/19/24 23:59 23:59 23:59 Intake Total 0 / 0 4410.90 / 4410.90 Output Total 0 / 0 550 / 550 Balance 0 / 0 3860.90 / 3860.90 Lab / Micro Data 12/19/24 02:15 12/19/24 07:50 Labs: Laboratory Results - last 24 hr 12/18/24 20:00: WBC 13.1 H, RBC 5.38, Hgb 16.0 H, Hct 51.3 H, MCV 95.4, MCH 29.7, MCHC 31.2 L, RDW Std Deviation 44.7 H, RDW Coeff of Luis Enrique 12.8, Plt Count 295, MPV 9.3, Immature Gran % (Auto) 0.300, Neut % (Auto) 95.7 H, Lymph % (Auto)1.4 L, [place] % (Auto) 2.0, Eos % (Auto) 0.4, Baso % (Auto) 0.2, Absolute Neuts (auto) 12.5 H, Absolute Lymphs (auto) 0.18 L, Nucleated RBC % 0, PT 13.5, INR 1.0, APTT 22.4 L, Sodium 143, Potassium 4.4, Chloride 102, Carbon Dioxide 19.6 L, Anion Gap 21 H, BUN 36 H, Creatinine 0.90, Estim Creat Clear Calc 58.39, Est GFR (MDRD) Non-Af 71, BUN/Creatinine Ratio 40.2 H, Glucose 192 H, Hemoglobin A1c7.4 H, Calcium 9.3, Troponin T High Sens 10, TSH 1.520 12/18/24 22:25: Urine Color Yellow, Urine Clarity Clear, Urine pH 6.0, Ur Specific Gary 1.015, Urine Protein 30 H, Urine Glucose (UA) 1000 H, Urine Ketones 150 A*, Urine Occult Blood Negative, Urine Nitrite Negative, Urine Bilirubin Negative, Urine Urobilinogen Normal, Ur Leukocyte Esterase Negative, Urine RBC 0-5 SEEN, Urine WBC 0-5 SEEN, Ur Squamous Epith Cells 0-5 SEEN, Urine Bacteria RARE, Urine Mucus 0 SEEN 12/18/24 23:53: Troponin T Hi Sens 2 Hr 11 12/19/24 02:15: WBC 12.8 H, RBC 4.84, Hgb 14.4, Hct 46.4, MCV 95.9, MCH 29.8, MCHC 31.0 L, RDW Std Deviation 45.1 H, RDW Coeff of Luis Enrique 12.9, Plt Count 273, MPV 9.2, Sodium 143, Potassium 4.4, Chloride 104, Carbon Dioxide 16.1 L, Anion Gap 23 H, BUN 36 H, Creatinine 0.94, Estim Creat Clear Calc 65.04, Est GFR (MDRD) Non-Af 67, BUN/Creatinine Ratio 38.1 H, Glucose 220 H, Calcium 8.9, Phosphorus 4.7 H, Magnesium 1.9, Troponin T Hi Sens 4Hr 11, Triglycerides 61, Cholesterol 89, LDL Cholesterol, Calc 38, VLDL Cholesterol 12, HDL Cholesterol 38 L, Cholesterol/HDL Ratio 2.33, b-Hydroxybutyric mmol/L 4.6 H 12/19/24 06:04: POC Glucose 184 H 12/19/24 07:01: POC Glucose 200 H 12/19/24 07:50: Sodium 144, Potassium 3.3, Chloride 106, Carbon Dioxide 21.2, Anion Gap 17 H, BUN 34 H, Creatinine 1.03, Estim Creat Clear Calc 59.36, Est GFR (MDRD) Non-Af 61, BUN/Creatinine Ratio 33.0 H, Glucose 149 H, Calcium 9.1, Procalcitonin 0.49 H 12/19/24 07:59: POC Glucose 143 H 12/19/24 09:04: POC Glucose 106 12/19/24 10:03: POC Glucose 80 12/19/24 11:07: POC Glucose 64 L 12/19/24 12:05: POC Glucose 93 Micro: Microbiology 12/19/24 02:15 Mucosa - Nasopharyngeal Respiratory Panel (PCR) - Final Radiography Diagnostic Testing: Radiology Impression Brain CT 12/18/24 21:00 IMPRESSION: 1. No definite evidence of an acute intracranial abnormality. There is hypodensity throughout the white matter suggestive of chronic small vessel ischemic disease, and which limits evaluation for acute ischemia. Consider MRI if there is persistent concern. 2. Slight thickening in the soft tissues of the right forehead, correlate with findings on exam. The critical information above was relayed directly by me by telephone to Gamaliel Coats on 12/18/2024 at 9:13 pm with readback verification. Reading Location: [facility] Chest X-Ray 12/18/24 22:50 IMPRESSION: No acute cardiopulmonary abnormality. Reading Location: [facility] NIHSS NIHSS Nursing Documentation NIHSS Nursing Documentation: NIHSS: Ischemic Stroke/TIA Start: 12/18/24 23:05 Text: For PCU Patients: NIH and Neuro Check every 4 Status: Active hours, PRN and with change in RN caregiver. Freq: [id number] Protocol: Activity Type Activity Date Activity User E-sign Co-sign Detail Recorded Client Recorded Date Recorded By Document 12/19/24 10:00 ARB [id number] 12/19/24 10:06 ARB 12/19/24 10:00 NIH Stroke Scale [NIHSS] A score of 0 is normal or asymptomatic . Total possible score is 42. Inpatient: RN or Physician to activate a stroke alert for onset of new stroke symptoms or with NIHSS increase >/= 3 points. Following change in neurological status, NIHSS will be performed per physician order or more frequently PRN. -1a. Level of Consciousness 1 - Not alert; Arousable by minor stimuli to obey, answer & respond -1b. LOC Questions 1 - Answers ONE question correctly -1c. LOC Commands 1 - Performs ONE task correctly -2. Best Gaze 0 - Normal -4. Facial Palsy 1 - Minor paralysis ( flattened nasolabial fold , asymmetry on smiling) -5a. Left Arm 1 - Drift; arm drifts downward but doesn?t hit the bed -5b. Right Arm 1 - Drift; arm drifts downward but doesn?t hit the bed -6a. Left Leg 3 - No effort against gravity ; leg falls to bed immediately -6b. Right Leg 3 - No effort against gravity ; leg falls to bed immediately -7. Limb Ataxia 2 - Present in 2 limbs -8. Sensory 0 - Normal; no sensory loss -9. Best Language 0 - No aphasia; normal -10. Dysarthria 1 = Mild-to- moderate dysarthria; -11. Extinction and Inattention 0 - No abnormality -Total 15 Query Text:A score of 0 is normal or asymptomatic. Total possible score is 42 . ED: Notify Physician for NIHSS increase by > / = 3 points. Inpatient: RN or Physician to activate a stroke alert for NIHSS increase of > / = 3 points. NIHSS 1a. Level of Consciousness: 2 - Not alert: Repeated strong/painful stimuli to arouse or obtunded; 1b. LOC Questions: 2 - Answers NEITHER question correctly 1c. LOC Commands: 2 - Performs NEITHER task correctly 2. Best Gaze: 0 - Normal 3. Visual: 0 - No visual loss 4. Facial Palsy: 0 - Normal symmetrical movements 5a. Left Arm: 2 - Some effort against gravity; 5b. Right Arm: 2 - Some effort against gravity; 6a. Left Le - Some effort against gravity; 6b. Right Le - Some effort against gravity; 7. Limb Ataxia: 0 - Absent 8. Sensory: 0 - Normal; no sensory loss 9. Best Language: 2 - Severe aphasia; 10. Dysarthria: 1 = Ysrn-yy-eidngtxg dysarthria; 11. Extinction and Inattention: 0 - No abnormality Total: 12/19/24 1333 <Electronically signed by Thor Felix MD> Cosigner Signature (if applicable): CC: ~ Signed [facility] Work Phone: 1(919) 842-423507-13-2025 Evaluation note* Diagnosis Onset Date Resolution Status Admit Date Dementia due to Parkinson's disease acute December 19, 2024 12:38pm Facial droop acute December 19, 025 12:38pm Slurred speech acute December 19, 2024 12:38pm Stroke-like symptoms acute December 19, 2024 12:38pm [facility] Work Phone: 1(746) 694-312607-13-2025 Progress note [facility] Medical Records Department [address] [place] [address] Progress Note - Neurology 12/19/24 1317 MR#: [id number] Acct: [id number] Name: SHAJI ESQUIVEL Rep #:[id number] : 1960 64 From: Thor Lindquist PCP: Care Physician,No Primary Status :ADM IN Location: ICU CVICU20 3-1 Assessment and Plan: Neuro Assessment/Plan Telestroke Progress Note (Audio-video interface) 64 y/o woman with h/o dementia due to chronic whole body pain, Parkinson's disease, hypertension, hyperlipidemia and type 2 diabetes p/w altered mental state, dysarthria and transient left facial droop. At baseline, lives in assisted living for the past 6 years or so, needs assistance to ambulate, will otherwise use a wheelchair. mRS-4. Typically does not know the month or age. CT brain- no acuteintracranial process with small vessel disease. Due to contrast allergy, CTA deferred. White count of 13 noticed. TNK not administered due to minor symptoms. Overnight, got admitted to ICU for management of DKA. LDL-38. A1c-7.4. Today, patient seems lethargic, wakes up promptly and started grimaces and cursing, seems to be in pain and moving all extremities on sternal rub. No obvious facial droop. Difficult to assess as patient is not cooperative. Diagnosis: Metabolic Encephalopathy in the setting of DKA and stroke recrusdesence. Needs to rule out stroke given difficult exam to assess Plan: Continue ASA and statin. Manage DKA. Metabolic/infectious workup. Follow up MRI brain along with MRA head and neck and if unable to obtain due to mental state then obtain repeat CT head today and follow up carotid doppler. Follow up TTE. OT/PT/SCALE SHOOTER. Control of vascular risk factors. I personally attended this patient and spent a total time of 30 minutes evaluating this patient including clinical assessment, review of chart, medical history imaging, and determining appropriate treatment and workup. Subject: Neurology Subjective 64 y/o woman with h/o dementia due to chronic whole body pain, Parkinson's disease, hypertension, hyperlipidemia and type 2 diabetes p/w altered mental state, dysarthria and transient left facial droop. At baseline, lives in assisted living for the past 6 years or so, needs assistance to ambulate, will otherwise use a wheelchair. mRS-4. Typically does not know the month or age. CT brain- no acuteintracranial process with small vessel disease. Due to contrast allergy, CTA deferred. White count of 13 noticed. TNK not administered due to minor symptoms. Overnight, got admitted to ICU for management of DKA. LDL-38. A1c-7.4. Today, patient seems lethargic, wakes up promptly and started grimaces and cursing, seems to be in pain and moving all extremities on sternal rub. No obvious facial droop. Difficult to assess as patient is not cooperative. EEG Results Procedure Details EEG Procedure Details: SHAJI ESQUIVEL is a 64 year old F with a past medical history of , who presentsfor evaluation of Electroencephalogram on DATE at TIME Objective Data Objective Data Vital Signs: Vital Signs Temp Pulse Resp BP Pulse Ox O2 Del Method O2 Flow Rate 98.7 F 82 12 117/69 98 Room Air 3 12/19/24 08:00 12/19/24 10:00 12/19/24 10:00 12/19/24 10:00 12/19/24 10:00 12/19/24 10:00 12/18/24 21:04 Oxygen Flow Rate (L/min) 3 Oxygen Delivery Method Room Air Weight: 95.2 kg Body Mass Index (BMI) 38.3 Intake & Output: Intake and Output for Last 24 Hours 12/17/24 12/18/24 12/19/24 23:59 23:59 23:59 Intake Total 0 / 0 4410.90 / 4410.90 Output Total 0 / 0 550 / 550 Balance 0 / 0 3860.90 / 3860.90 Lab / Micro Data 12/19/24 02:15 12/19/24 07:50 Labs: Laboratory Results - last 24 hr 12/18/24 20:00: WBC 13.1 H, RBC 5.38, Hgb 16.0 H, Hct 51.3 H, MCV 95.4, MCH 29.7, MCHC 31.2 L, RDW Std Deviation 44.7 H, RDW Coeff of Luis Enrique 12.8, Plt Count 295, MPV 9.3, Immature Gran % (Auto) 0.300, Neut % (Auto) 95.7 H, Lymph % (Auto)1.4 L, [place] % (Auto) 2.0, Eos % (Auto) 0.4, Baso % (Auto) 0.2, Absolute Neuts (auto) 12.5 H, Absolute Lymphs (auto) 0.18 L, Nucleated RBC % 0, PT 13.5, INR 1.0, APTT22.4 L, Sodium 143, Potassium 4.4, Chloride 102, Carbon Dioxide 19.6 L, Anion Gap 21 H, BUN 36 H, Creatinine 0.90, Estim Creat Clear Calc 58.39, Est GFR (MDRD) Non-Af 71, BUN/Creatinine Ratio 40.2 H,Glucose 192 H, Hemoglobin A1c7.4 H, Calcium 9.3, Troponin T High Sens 10, TSH 1.520 12/18/24 22:25: Urine Color Yellow, Urine Clarity Clear, Urine pH 6.0, Ur Specific Gary 1.015, Urine Protein 30 H, Urine Glucose (UA) 1000 H, Urine Ketones 150 A*, Urine Occult Blood Negative, Urine Nitrite Negative, Urine Bilirubin Negative, Urine Urobilinogen Normal, Ur Leukocyte Esterase Negative, Urine RBC 0-5 SEEN, Urine WBC 0-5 SEEN, Ur Squamous Epith Cells 0-5 SEEN, Urine Bacteria RARE,Urine Mucus 0 SEEN 12/18/24 23:53: Troponin T Hi Sens 2 Hr 11 12/19/24 02:15: WBC 12.8 H, RBC 4.84, Hgb 14.4, Hct 46.4, MCV 95.9, MCH 29.8, MCHC 31.0 L, RDW Std Deviation 45.1 H, RDW Coeff of Luis Enrique 12.9, Plt Count 273, MPV 9.2, Sodium 143, Potassium 4.4, [id number], Carbon Dioxide 16.1 L, Anion Gap 23 H, BUN 36 H, Creatinine 0.94, Estim Creat Clear Calc 65.04, Est GFR (MDRD) Non-Af 67, BUN/Creatinine Ratio 38.1 H, Glucose 220 H, Calcium 8.9, Phosphorus 4.7 H, Magnesium 1.9, Troponin T Hi Sens 4Hr 11, Triglycerides 61, Cholesterol 89, LDL Cholesterol, Calc38, VLDL Cholesterol 12, HDL Cholesterol 38 L, Cholesterol/HDL Ratio 2.33, b-Hydroxybutyric mmol/L 4.6 H 12/19/24 06:04: POC Glucose 184 H 12/19/24 07:01: POC Glucose 200 H 12/19/24 07:50: Sodium 144, Potassium 3.3, Chloride 106, Carbon Dioxide 21.2, Anion Gap 17 H, BUN 34 H, Creatinine 1.03, Estim Creat Clear Calc 59.36, Est GFR (MDRD) Non-Af 61, BUN/Creatinine Ratio 33.0 H, Glucose 149 H, Calcium 9.1, Procalcitonin 0.49 H 12/19/24 07:59: POC Glucose 143 H 12/19/24 09:04: POC Glucose 106 12/19/24 10:03: POC Glucose 80 12/19/24 11:07: POC Glucose 64 L 12/19/24 12:05: POC Glucose 93 Micro: Microbiology 12/19/24 02:15 Mucosa - Nasopharyngeal Respiratory Panel (PCR) - Final Radiography Diagnostic Testing: Radiology Impression Brain CT 12/18/24 21:00 IMPRESSION: 1. No definite evidence of an acute intracranial abnormality. There is hypodensity throughout the white matter suggestive of chronic small vessel ischemic disease, and which limits evaluation for acute ischemia. Consider MRIif there is persistent concern. 2. Slight thickening in the soft tissues of the right forehead, correlate with findings on exam. The critical information above was relayed directly by me by telephone to Gamaliel Coats on 12/18/2024 at 9:13 pm with readback verification. Reading Location: [facility] Chest X-Ray 12/18/24 22:50 IMPRESSION: No acute cardiopulmonary abnormality. Reading Location: [facility] NIHSS NIHSS Nursing Documentation NIHSS Nursing Documentation: NIHSS: Ischemic Stroke/TIA Start: 12/18/24 23:05 Text: For PCU Patients: NIH and Neuro Check every 4 Status: Active hours, PRN and with change in RN caregiver. Freq: [id number] Protocol: Activity Type Activity Date Activity User E-sign Co-sign Detail Recorded Client Recorded Date Recorded By Document 12/19/24 10:00 ARB [id number] 12/19/24 10:06 ARB 12/19/24 10:00 NIH Stroke Scale [NIHSS] A score of 0 is normal or asymptomatic . Total possible score is 42. Inpatient: RN or Physician to activate a stroke alert for onset of new stroke symptoms or with NIHSS increase >/= 3 points. Following change in neurological status, NIHSS will be performed per physician order or more frequently PRN. -1a. Level of Consciousness 1 - Not alert; Arousable by minor stimuli to obey, answer & respond -1b. LOC Questions 1 - Answers ONE question correctly -1c. LOC Commands 1 - Performs ONE task correctly -2. Best Gaze 0 - Normal -4. Facial Palsy 1 - Minor paralysis ( flattened nasolabial fold , asymmetry on smiling) -5a. Left Arm 1 - Drift; arm drifts downward but doesn?t hit the bed -5b. Right Arm 1 - Drift; arm drifts downward but doesn?t hit the bed -6a. Left Leg 3 - No effort against gravity ; leg falls to bed immediately -6b. Right Leg 3 - No effort against gravity ; leg falls to bed immediately -7. Limb Ataxia 2 - Present in 2 limbs -8. Sensory 0 - Normal; no sensory loss -9. Best Language 0 - No aphasia; normal -10. Dysarthria 1 = Mild-to- moderate dysarthria; -11. Extinction and Inattention 0 - No abnormality -Total 15 Query Text:A score of 0 is normal or asymptomatic. Total possible score is 42 . ED: Notify Physician for NIHSS increase by > / = 3 points. Inpatient: RN or Physician to activate a stroke alert for NIHSS increase of > / = 3 points. NIHSS 1a. Level of Consciousness: 2 - Not alert: Repeated strong/painful stimuli to arouse or obtunded; 1b. LOC Questions: 2 - Answers NEITHER question correctly 1c. LOC Commands: 2 - Performs NEITHER task correctly 2. Best Gaze: 0 - Normal 3. Visual: 0 - No visual loss 4. Facial Palsy: 0 - Normal symmetrical movements 5a. Left Arm: 2 - Some effort against gravity; 5b. Right Arm: 2 - Some effort against gravity; 6a. Left Le - Some effort against gravity; 6b. Right Le - Some effort against gravity; 7. Limb Ataxia: 0 - Absent 8. Sensory: 0 - Normal; no sensory loss 9. Best Language: 2 - Severe aphasia; 10. Dysarthria: 1 = [id number] dysarthria; 11. Extinction and Inattention: 0 - No abnormality Total: 17 12/19/24 1333 Cosigner Signature (if applicable): CC: ~ Signed [facility]07-13-2025 Progress note Author Ryanne Simons [facility] Note Date/Time December 19, 2024 11:[address] [facility] Medical Records Department [address] [place] [address] Progress Note - Hospitalist 12/19/24 0650 MR#: [id number] Acct: [id number] Name: SHAJI ESQUIVEL Rep #:[id number] : 1960 64 From: Ryanne Simons MD PCP: Care Physician,No Primary Status :ADM KANDACE [facility] Reason for Visit Reason for Visit: Diagnoses Unspecified symptoms and signs involving the nervous system (12/18/24) Subjective Subjective Patient fatigued and lethargic, answering questions appropriately but not following commands well possibly secondary to lethargy and reporting pain in herarms and legs as well as abdomen although soft and nontender. Patient remains on insulin drip for DKA treatment. Patient denies fevers, chills, nausea, emesis, chest pain or dyspnea. Objective Data Objective Data Vital Signs: Vital Signs Temp Pulse Resp BP Pulse Ox O2 Del Method O2 Flow Rate 97.0 F L 104 H 19 H 139/64 H 93 Room Air 3 12/19/24 06:00 12/19/24 06:30 12/19/24 06:30 12/19/24 06:30 12/19/24 06:30 12/19/24 06:30 12/18/24 21:04 Oxygen Flow Rate (L/min) 3 Oxygen Delivery Method Room Air Weight: 209 lb 14.081 oz Body Mass Index (BMI) 38.3 Intake & Output: Intake and Output for Last 24 Hours 12/17/24 12/18/24 12/19/24 23:59 23:59 23:59 Intake Total 0 / 0 910 / 910 Output Total 0 / 0 550 / 550 Balance 0 / 0 360 / 360 Lab / Micro Data 12/19/24 02:15 12/19/24 07:50 Labs: Laboratory Results - last 24 hr 12/18/24 20:00: WBC 13.1 H, RBC 5.38, Hgb 16.0 H, Hct 51.3 H, MCV 95.4, MCH 29.7, MCHC 31.2 L, RDW Std Deviation 44.7 H, RDW Coeff of Luis Enriuqe 12.8, Plt Count 295, MPV 9.3, Immature Gran % (Auto) 0.300, Neut % (Auto) 95.7 H, Lymph % (Auto)1.4 L, [place] % (Auto) 2.0, Eos % (Auto) 0.4, Baso % (Auto) 0.2, Absolute Neuts (auto) 12.5 H, Absolute Lymphs (auto) 0.18 L, Nucleated RBC % 0, PT 13.5, INR 1.0, APTT 22.4 L, Sodium 143, Potassium 4.4, Chloride 102, Carbon Dioxide 19.6 L, Anion Gap 21 H, BUN 36 H, Creatinine 0.90, Estim Creat Clear Calc 58.39, Est GFR (MDRD) Non-Af 71, BUN/Creatinine Ratio 40.2 H, Glucose 192 H, Hemoglobin A1c7.4 H, Calcium 9.3, Troponin T High Sens 10, TSH 1.520 12/18/24 22:25: Urine Color Yellow, Urine Clarity Clear, Urine pH 6.0, Ur Specific Gary 1.015, Urine Protein 30 H, Urine Glucose (UA) 1000 H, Urine Ketones 150 A*, Urine Occult Blood Negative, Urine Nitrite Negative, Urine Bilirubin Negative, Urine Urobilinogen Normal, Ur Leukocyte Esterase Negative, Urine RBC 0-5 SEEN, Urine WBC 0-5 SEEN, Ur Squamous Epith Cells 0-5 SEEN, Urine Bacteria RARE, Urine Mucus 0 SEEN 12/18/24 23:53: Troponin T Hi Sens 2 Hr 11 12/19/24 02:15: WBC 12.8 H, RBC 4.84, Hgb 14.4, Hct 46.4, MCV 95.9, MCH 29.8, MCHC 31.0 L, RDW Std Deviation 45.1 H, RDW Coeff of Luis Enrique 12.9, Plt Count 273, MPV 9.2, Sodium 143, Potassium 4.4, Chloride 104, Carbon Dioxide 16.1 L, Anion Gap 23 H, BUN 36 H, Creatinine 0.94, Estim Creat Clear Calc 65.04, Est GFR (MDRD) Non-Af 67, BUN/Creatinine Ratio 38.1 H, Glucose 220 H, Calcium 8.9, Troponin T Hi Sens 4Hr 11, Triglycerides 61, Cholesterol 89, LDL Cholesterol, Calc 38, VLDLCholesterol 12, HDL Cholesterol 38 L, Cholesterol/HDL Ratio 2.33, b-Hydroxybutyric mmol/L 4.6 H 12/19/24 06:04: POC Glucose 184 H Radiography Diagnostic Testing: Radiology Impression Brain CT 12/18/24 21:00 IMPRESSION: 1. No definite evidence of an acute intracranial abnormality. There is hypodensity throughout the white matter suggestive of chronic small vessel ischemic disease, and which limits evaluation for acute ischemia. Consider MRI if there is persistent concern. 2. Slight thickening in the soft tissues of the right forehead, correlate with findings on exam. The critical information above was relayed directly by me by telephone to Gamaliel Coats on 12/18/2024 at 9:13 pm with readback verification. Reading Location: [id number] Chest X-Ray 12/18/24 22:50 IMPRESSION: No acute cardiopulmonary abnormality. Reading Location: [id number] Physical Exam Narrative Physical Examination: General: Patient is awake but not markedly alert, not answering orientation questions but is able to tell us what is bothering her and how she is feeling with specific appropriate answers but does report that pretty much every single thing is hurting including her extremities and abdomen. Skin: Normal color, normal turgor, no icterus, no cyanosis except occasional stage ecchymoses, abrasion. HEENT: AT/NC, EOMI, PERRLA, moderately dry MM, no carotid bruits or JVD noted. Lungs: Mildly diminished, greater bases, poor effort, no rales, ronchi or wheezing. Heart: Regular rate and rhythm; no gallop, rub audible. Abdomen: Soft, generalized discomfort with palpation but no rebound or guarding,no marked distention, mildly hyperactive BS. Extremities: No cyanosis, no clubbing, no marked distal edema. Neurological: Patient awake,, not markedly alert, orientation as noted, cognitive function per discussion with facility not baseline intact; pupils equally reactive to light and accommodation, cranial nerves grossly normal, moving all 4 extremities but reporting extremity pain this very altered but no specific focal deficit, strength severely globally decreased, not following request for finger-nose and tlry-gf-foym or strength assessment, reports sensation intact. Psychiatric: Affect appears flat, fatigued, reporting diffuse pain, no acute evidence of depressive or anxiety feelings but does have underlying history. Assessment & Plan Assessment/Plan (1) Stroke-like symptoms: PLAN: Plan The patient is a 64 y/o F w/ PMHx: Diabetes mellitus type II, CKD stage II per GFR trending, Obesity, GERD, Hypothyroidism, Anxiety and Depression, GERD, Parkinson's disease, HTN, HLD who presents to [facility] ED on 12/18/24 with historyof slurred speech and concern for facial droop prompting ED evaluation with initial NIH stroke score of 4 via neurology with stroke alert with noted mild leukocytosis and low-grade fever in the ED concurrently in addition to evidence of DKA. #1. Encephalopathy, slurred speech, transient facial droop concerning for CVA: CT head with no acute intracranial finding. Patient admitted to the ICU given concurrent #2, pending MRI of the brain and MRA of the head and neck, will continue to allow permissive HTN, given current mentation n.p.o. status maintained, will transition to SC aspirin, will give an additional 1 L of IV fluids given #2 concurrently, maintain on aspiration and fall precautions. Magnesium 1.9, FLP with triglycerides 61, total cholesterol 89, LDL 38, VLDL 12,HDL 38, TSH 1.520, hemoglobin A1c 7.4%. Neurology consulted. #2. DKA w/ Diabetes mellitus type II: Will continue on insulin drip, check serial K+, glucose w/ IVF changes pending these levels, serial chemistry, obtainmag, phos daily w/ repletion as needed, transition to home SC regimen when gap closed w/ overlap on drip, nutrition consultation. Hemoglobin A1c 7.4%. Possibly contributing to encephalopathy #1 presentation. Clarified with staff IVFs in the ED, will given an additional 2L NC as this may have been delayed. #3. Leukocytosis with lymphopenia with low-grade fever, possibly viral syndrome: Respiratory viral panel negative, chest x-ray with no acute concerningfindings, urinalysis with no obvious evidence of UTI, procalcitonin requested, we will continue to manage conservatively however if concerns arise certainly may overlap with broad-spectrum antibiotic therapy. #4. Hypertension: Given presentation will maintain permissive hypertension withurine agents per stroke protocol. #5. Hyperlipidemia: Will continue statin therapy, FLP as noted. #6. Hypothyroidism: Will continue patient home levothyroxine regimen, TSH 1.520. #7. Chronic Kidney Disease Stage II per GFR trendin/0.94, GFR 67, has remained consistent with stage II since presentation, baseline renal function 0.7-0.9, continue to trend. #8. Obesity: Weight loss and lifestyle changes encouraged. #9. Parkinson disease with associated dementia with unclear behavioral disturbance history: Complicates presentation, will continue patient home carbidopa-levodopa and pimavanserin regimen. #10. Anxiety and Depression: Will continue patient home mirtazapine regimen. #11. GERD: Continue home PPI. #12. DVT Prophylaxis: Heparin. #13. CODE status: Full Code. Charges/Coding Visit Charges Inpatient E&M: 92784 Subs Hosp L3 NIHSS NIHSS Nursing Documentation NIHSS Nursing Documentation: NIHSS: Ischemic Stroke/TIA Start: 12/18/24 23:05 Text: For PCU Patients: NIH and Neuro Check every 4 Status: Active hours, PRN and with change in RN caregiver. Freq: [id number] Protocol: Activity Type Activity Date Activity User E-sign Co-sign Detail Recorded Client Recorded Date Recorded By Document 12/19/24 06:00 EY [id number] 12/19/24 06:25 EY 12/19/24 06:00 NIH Stroke Scale [NIHSS] A score of 0 is normal or asymptomatic . Total possible score is 42. Inpatient: RN or Physician to activate a stroke alert for onset of new stroke symptoms or with NIHSS increase >/= 3 points. Following change in neurological status, NIHSS will be performed per physician order or more frequently PRN. -1a. Level of Consciousness 1 - Not alert; Arousable by minor stimuli to obey, answer & respond -1b. LOC Questions 1 - Answers ONE question correctly -1c. LOC Commands 1 - Performs ONE task correctly -2. Best Gaze 0 - Normal -4. Facial Palsy 1 - Minor paralysis ( flattened nasolabial fold , asymmetry on smiling) -5a. Left Arm 1 - Drift; arm drifts downward but doesn?t hit the bed -5b. Right Arm 1 - Drift; arm drifts downward but doesn?t hit the bed -6a. Left Leg 3 - No effort against gravity ; leg falls to bed immediately -6b. Right Leg 3 - No effort against gravity ; leg falls to bed immediately -7. Limb Ataxia 2 - Present in 2 limbs -8. Sensory 0 - Normal; no sensory loss -9. Best Language 0 - No aphasia; normal -10. Dysarthria 1 = Mild-to- moderate dysarthria; -11. Extinction and Inattention 0 - No abnormality -Total 15 Query Text:A score of 0 is normal or asymptomatic. Total possible score is 42 . ED: Notify Physician for NIHSS increase by > / = 3 points. Inpatient: RN or Physician to activate a stroke alert for NIHSS increase of > / = 3 points. 12/19/24 1103 <Electronically signed by Ryanne Simons MD> Cosigner Signature (if applicable): CC: ~ Signed [facility] Work Phone: 1(198) 230-961907-13-2025 Progress note [facility] Medical Records Department [address] [place] [address] Progress Note - Hospitalist 12/19/24 0650 MR#: [id number] Acct: [id number] Name: SHAJI ESQUIVEL Rep #:[id number] : 1960 64 From: Ryanne Simons MD PCP: Care Physician,No Primary Status :ADM KANDACE Location: ICU CVICU20 3-1 Reason for Visit Reason for Visit: Diagnoses Unspecified symptoms and signs involving the nervous system (12/18/24) Subjective Subjective Patient fatigued and lethargic, answering questions appropriately but not following commands well possibly secondary to lethargy and reporting pain in herarms and legs as well as abdomen although soft and nontender. Patient remains on insulin drip for DKA treatment. Patient denies fevers, chills, nausea, emesis, chest pain or dyspnea. Objective Data Objective Data Vital Signs: Vital Signs Temp Pulse Resp BP Pulse Ox O2 Del Method O2 Flow Rate 97.0 F L 104 H 19 H 139/64 H 93 Room Air 3 12/19/24 06:00 12/19/24 06:30 12/19/24 06:30 12/19/24 06:30 12/19/24 06:30 12/19/24 06:30 12/18/24 21:04 Oxygen Flow Rate (L/min) 3 Oxygen Delivery Method Room Air Weight: 209 lb 14.081 oz Body Mass Index (BMI) 38.3 Intake & Output: Intake and Output for Last 24 Hours 12/17/24 12/18/24 12/19/24 23:59 23:59 23:59 Intake Total 0 / 0 910 / 910 Output Total 0 / 0 550 / 550 Balance 0 / 0 360 / 360 Lab / Micro Data 12/19/24 02:15 12/19/24 07:50 Labs: Laboratory Results - last 24 hr 12/18/24 20:00: WBC 13.1 H, RBC 5.38, Hgb 16.0 H, Hct 51.3 H, MCV 95.4, MCH 29.7, MCHC 31.2 L, RDW Std Deviation 44.7 H, RDW Coeff of Luis Enrique 12.8, Plt Count 295, MPV 9.3, Immature Gran % (Auto) 0.300, Neut % (Auto) 95.7 H, Lymph % (Auto)1.4 L, [place] % (Auto) 2.0, Eos % (Auto) 0.4, Baso % (Auto) 0.2, Absolute Neuts (auto) 12.5 H, Absolute Lymphs (auto) 0.18 L, Nucleated RBC % 0, PT 13.5, INR 1.0, APTT22.4 L, Sodium 143, Potassium 4.4, Chloride 102, Carbon Dioxide 19.6 L, Anion Gap 21 H, BUN 36 H, Creatinine 0.90, Estim Creat Clear Calc 58.39, Est GFR (MDRD) Non-Af 71, BUN/Creatinine Ratio 40.2 H,Glucose 192 H, Hemoglobin A1c7.4 H, Calcium 9.3, Troponin T High Sens 10, TSH 1.520 12/18/24 22:25: Urine Color Yellow, Urine Clarity Clear, Urine pH 6.0, Ur Specific Gary 1.015, Urine Protein 30 H, Urine Glucose (UA) 1000 H, Urine Ketones 150 A*, Urine Occult Blood Negative, Urine Nitrite Negative, Urine Bilirubin Negative, Urine Urobilinogen Normal, Ur Leukocyte Esterase Negative, Urine RBC 0-5 SEEN, Urine WBC 0-5 SEEN, Ur Squamous Epith Cells 0-5 SEEN, Urine Bacteria RARE,Urine Mucus 0 SEEN 12/18/24 23:53: Troponin T Hi Sens 2 Hr 11 12/19/24 02:15: WBC 12.8 H, RBC 4.84, Hgb 14.4, Hct 46.4, MCV 95.9, MCH 29.8, MCHC 31.0 L, RDW Std Deviation 45.1 H, RDW Coeff of Luis Enrique 12.9, Plt Count 273, MPV 9.2, Sodium 143, Potassium 4.4, [id number], Carbon Dioxide 16.1 L, Anion Gap 23 H, BUN 36 H, Creatinine 0.94, Estim Creat Clear Calc 65.04, Est GFR (MDRD) Non-Af 67, BUN/Creatinine Ratio 38.1 H, Glucose 220 H, Calcium 8.9, Troponin T Hi Sens 4Hr 11, Triglycerides 61, Cholesterol 89, LDL Cholesterol, Calc 38, VLDLCholesterol 12, HDL Cholesterol 38 L, Cholesterol/HDL Ratio 2.33, b- Hydroxybutyric mmol/L 4.6 H 12/19/24 06:04: POC Glucose 184 H Radiography Diagnostic Testing: Radiology Impression Brain CT 12/18/24 21:00 IMPRESSION: 1. No definite evidence of an acute intracranial abnormality. There is hypodensity throughout the white matter suggestive of chronic small vessel ischemic disease, and which limits evaluation for acute ischemia. Consider MRIif there is persistent concern. 2. Slight thickening in the soft tissues of the right forehead, correlate with findings on exam. The critical information above was relayed directly by me by telephone to Gamaliel Coats on 12/18/2024 at 9:13 pm with readback verification. Reading Location: [id number] Chest X-Ray 12/18/24 22:50 IMPRESSION: No acute cardiopulmonary abnormality. Reading Location: [id number] Physical Exam Narrative Physical Examination: General: Patient is awake but not markedly alert, not answering orientation questions but is able to tell us what is bothering her and how she is feeling with specific appropriate answers but does report that pretty much every single thing is hurting including her extremities and abdomen. Skin: Normal color, normal turgor, no icterus, no cyanosis except occasional stage ecchymoses, abrasion. HEENT: AT/NC, EOMI, PERRLA, moderately dry MM, no carotid bruits or JVD noted. Lungs: Mildly diminished, greater bases, poor effort, no rales, ronchi or wheezing. Heart: Regular rate and rhythm; no gallop, rub audible. Abdomen: Soft, generalized discomfort with palpation but no rebound or guarding,no marked distention, mildly hyperactive BS. Extremities: No cyanosis, no clubbing, no marked distal edema. Neurological: Patient awake,, not markedly alert, orientation as noted, cognitive function per discussion with facility not baseline intact; pupils equally reactive to light and accommodation, cranial nerves grossly normal, moving all 4 extremities but reporting extremity pain this very altered butno specific focal deficit, strength severely globally decreased, not following request for finger-nose and [id number] or strength assessment, reports sensation intact. Psychiatric: Affect appears flat, fatigued, reporting diffuse pain, no acute evidence of depressiveor anxiety feelings but does have underlying history. Assessment & Plan Assessment/Plan (1) Stroke-like symptoms: PLAN: Plan The patient is a 64 y/o F w/ PMHx: Diabetes mellitus type II, CKD stage II per GFR trending, Obesity, GERD, Hypothyroidism, Anxiety and Depression, GERD, Parkinson's disease, HTN, [facility] with historyof slurred speech and concern for facial droop prompting ED evaluation with initial NIH stroke score of 4 via neurology with stroke alert with noted mild leukocytosis and low-grade fever in the ED concurrently in addition to evidence of DKA. #1. Encephalopathy, slurred speech, transient facial droop concerning for CVA: CT head with no acute intracranial finding. Patient admitted to the ICU given concurrent #2, pending MRI of the brain and MRA of the head and neck, will continue to allow permissive HTN, given current mentation n.p.o. status maintained, will transition to SC aspirin, will give an additional 1 L of IV fluids given #2 concurrently, maintain on aspiration and fall precautions. Magnesium 1.9, FLP with triglycerides 61, total cholesterol 89, LDL 38, VLDL 12,HDL 38, TSH 1.520, hemoglobin A1c 7.4%. Neurology consulted. #2. DKA w/ Diabetes mellitus type II: Will continue on insulin drip, check serial K+, glucose w/ IVF changes pending these levels, serial chemistry, obtainmag, phos daily w/ repletion as needed, transition to home SC regimen when gap closed w/ overlap on drip, nutrition consultation. Hemoglobin A1c7.4%. Possibly contributing to encephalopathy #1 presentation. Clarified with staff IVFs in the ED,will given an additional 2L NC as this may have been delayed. #3. Leukocytosis with lymphopenia with low-grade fever, possibly viral syndrome: Respiratory viral panel negative, chest x-ray with no acute concerningfindings, urinalysis with no obvious evidence ofUTI, procalcitonin requested, we will continue to manage conservatively however if concerns arise certainly may overlap with broad-spectrum antibiotic therapy. #4. Hypertension: Given presentation will maintain permissive hypertension withurine agents per stroke protocol. #5. Hyperlipidemia: Will continue statin therapy, FLP as noted. #6. Hypothyroidism: Will continue patient home levothyroxine regimen, TSH 1.520. #7. Chronic Kidney Disease Stage II per GFR trendin/0.94, GFR 67, has remained consistent withstage II since presentation, baseline renal function 0.7-0.9, continue to trend. #8. Obesity: Weight loss and lifestyle changes encouraged. #9. Parkinson disease with associated dementia with unclear behavioral disturbance history: Complicates presentation, will continue patient home carbidopa-levodopa and pimavanserin regimen. #10. Anxiety and Depression: Will continue patient home mirtazapine regimen. #11. GERD: Continue home PPI. #12. DVT Prophylaxis: Heparin. #13. CODE status: Full Code. Charges/Coding Visit Charges Inpatient E&M: 90357 Subs Hosp L3 NIHSS NIHSS Nursing Documentation NIHSS Nursing Documentation: NIHSS: Ischemic Stroke/TIA Start: 12/18/24 23:05 Text: For PCU Patients: NIH and Neuro Check every 4 Status: Active hours, PRN and with change in RN caregiver. Freq: [id number] Protocol: Activity Type Activity Date Activity User E-sign Co-sign Detail Recorded Client Recorded Date Recorded By Document 12/19/24 06:00 EY [id number] 12/19/24 06:25 EY 12/19/24 06:00 NIH Stroke Scale [NIHSS] A score of 0 is normal or asymptomatic . Total possible score is 42. Inpatient: RN or Physician to activate a stroke alert for onset of new stroke symptoms or with NIHSS increase >/= 3 points. Following change in neurological status, NIHSS will be performed per physician order or more frequently PRN. -1a. Level of Consciousness 1 - Not alert; Arousable by minor stimuli to obey, answer & respond -1b. LOC Questions 1 - Answers ONE question correctly -1c. LOC Commands 1 - Performs ONE task correctly -2. Best Gaze 0 - Normal -4. Facial Palsy 1 - Minor paralysis ( flattened nasolabial fold , asymmetry on smiling) -5a. Left Arm 1 - Drift; arm drifts downward but doesn?t hit the bed -5b. Right Arm 1 - Drift; arm drifts downward but doesn?t hit the bed -6a. Left Leg 3 - No effort against gravity ; leg falls to bed immediately -6b. Right Leg 3 - No effort against gravity ; leg falls to bed immediately -7. Limb Ataxia 2 - Present in 2 limbs -8. Sensory 0 - Normal; no sensory loss -9. Best Language 0 - No aphasia; normal -10. Dysarthria 1 = Mild-to- moderate dysarthria; -11. Extinction and Inattention 0 - No abnormality -Total 15 Query Text:A score of 0 is normal or asymptomatic. Total possible score is 42 . ED: Notify Physician for NIHSS increase by > / = 3 points. Inpatient: RN or Physician to activate a stroke alert for NIHSS increase of > / = 3 points. 12/19/24 1103 Cosigner Signature (if applicable): CC: ~ Signed [facility]07-13-2025 Progress note Author Jayashree Florez [facility] Note Date/Time December 19, 2024 3:[address] [facility] Medical Records Department [address] [place] [address] Progress Note - Hospitalist 12/19/24 0349 MR#: [id number] Acct: [id number] Name: SHAJI ESQUIVEL Rep #:[id number] : 1960 64 From: Jayashree welch DO PCP: Care Physician,No Primary Status :ADM KANDACE Location: [place] [address] Hospitalist Note On further review of patient labs, has bicarb 19.6 and anion gap of 21. Has 150ketones in the urine as well. Blood glucose only 192 but patient is on an RUBA2xycseibyd which puts her at risk for euglycemic DKA. Beta-hydroxybutyrate ordered and came back elevated at 4.6 consistent with DKA. Will transfer patient to the ICU and initiate DKA protocol with insulin drip and D5 half-normal saline at 150 cc/hr with BMP checks every 4 hours. 12/19/24350 <Electronically signed by Jayashree Florez DO> Cosigner Signature (if applicable): CC: ~ Signed [facility] Work Phone: 1(998) 372-838107-13-2025 Progress note [facility] Medical Records Department [address] [place] [address] Progress Note - Hospitalist 12/19/24348 MR#: [id number] Acct: [id number] Name: SHAJI ESQUIVEL Rep #:[id number] : 1960 64 From: Jayashree welch DO PCP: Care Physician,No Primary Status :ADM KANDACE Location: [place] [address] Hospitalist Note On further review of patient labs, has bicarb 19.6 and anion gap of 21. Has 150ketones in the urineas well. Blood glucose only 192 but patient is on an JIVQ2ibtnhkysg which puts her at risk for euglycemic DKA. Beta-hydroxybutyrate ordered and came back elevated at 4.6 consistent with DKA. Will transfer patient to the ICU and initiate DKA protocol with insulin drip and D5 half-normal saline at 150 cc/hr with BMP checks every 4 hours. 12/19/24350 Cosigner Signature (if applicable): CC: ~ Signed [facility]07-13-2025 History and physical note Author Jayashree Florez [facility] Note Date/Time December 19, 2024 12:2 6am [facility] Medical Records Department [address] [place] [address] H&P Exam - Hospitalist 12/18/24 2214 MR#: [id number] Acct: [id number] Name: SHAJI ESQUIVEL Rep #:[id number] : 1960 64 From: Jayashree Parkstiffany ruckertaylor PCP: Care Physician,No Primary Status :ADM KANDACE Location: [place] [address] HPI - General General Date of Admission: 12/18/24 Date of Service: 12/18/24 Chief Complaint: Slurred speech with facial droop HPI Narrative SHAJI ESQUIVEL, is a 64 F who presented to [facility] ED on 12/18/2024 with slurred speech and facial droop. Medical history significant fordementia due to Parkinson's disease, hypertension, hyperlipidemia and type 2 diabetes. Patient has lived in assisted living for the past 6 years or so. At baseline she needs assistance to ambulate, will otherwise use a wheelchair. Needs help bathing and dressing. Typically does not know the month or age. Mark typically reports chronic whole body pain. Staff member who knows her wellaccompanied her to the ED today. She noticed that the patient seemed off from her usual today. Patient usually has good energy level and very good appetite. However today she seemed more fatigued and ate very little. She noticed the patient was staring off for seconds at a time this afternoon which was not her usual. Then this evening patient appeared to have a facial droop, and when staff attempted to have her speak to them she had slurred speech, so they brought her in for further evaluation. She was a stroke alert in the ED. Vitals notable for mild sinus tachycardia to the 100s, mild hypertension to the 140s systolic, otherwise stable on room air. CT brain was unremarkable. Patient has a contrast allergy so CTA head and neck was not done. Chest x-ray was unremarkable. Labs notable for WBC count 13 with neutrophil predominance and lymphopenia, creatinine 0.9 (baseline around 0.7), BUN 36, glucose 192. UA showed 150 ketones, 1000 glucose, otherwise unremarkable and noninfectious appearing. NIH score of 4 per neurology. TNK was not given as patient is not ambulatory on her own. Hospitalist was contacted for admission. I saw the patient at bedside in the ED, guarding was present. Patient was fatigued appearing but otherwise laying back comfortably in bed and in no acute distress. She opened her eyes for me and did complain of full body pain but otherwise wasnot answering questions appropriately for me. Will be admitted for further management. [facility] Medical History (Updated 12/19/24 @ 00:[address] Jayashree Florez, DO) Parkinsons Hypertension Diabetes Schizophrenia Home Medications ?Medication ?Instructions ?Recorded ?Last Taken ?Type docusate sodium 100 mg capsule 100 mg PO BID Constipat ion 01/13/17 Unknown History (DOK) sennosides 8.6 mg-docusate sodium 1 tab PO DAILY 01/13 Unknown History 50 mg tablet (Senna Plus) Benacalorie 1 packet PO TID PRN intake l ess 12/18/24 Unknown History than 50% acetaminophen 500 mg tablet 1,000 mg PO TID PRN fever or pain 12/18/24 Unknown History amlodipine 2.5 mg tablet 2.5 mg PO DAILY 12/18/24 Unk nown History amlodipine 2.5 mg tablet 2.5 mg PO DAILY 12/18/24 Unk nown History atorvastatin 10 mg tablet 10 mg PO DAILY 12/18/24 Unkn own History atorvastatin 10 mg tablet 10 mg PO DAILY 12/18/24 Unkn own History benztropine 1 mg tablet 1 mg PO DAILY 12/18/24 Unkno wn History benztropine 1 mg tablet 1 mg PO QHS 12/18/24 Unknown History carbidopa 25 mg-levodopa 100 mg 2 tab PO TID 12/18/24 Unknown History tablet carbidopa 25 mg-levodopa 100 mg 2 tab PO TID 12/18/24 Unknown History tablet diclofenac sodium 1 % topical gel 4 g topical 4X/DAY 0 12/18/24 Unknown History diclofenac sodium 1 % topical gel 4 g topical 4X/DAY b il knees and 12/18/24 Unknown History right hip empagliflozin 25 mg tablet 25 mg PO DAILY 12/18/24 Unk nown History (Jardiance) estradiol 0.01% (0.1 mg/gram) 0.5 appful vaginal MOWEF R 12/18/24 Unknown History vaginal cream estradiol 0.01% (0.1 mg/gram) 0.5 appful vaginal DAILY 12/18/24 Unknown History vaginal cream (Estrace) fluoride (sodium) 1.1 % dental 1 applic dental DAILY 0 7/12/25 Unknown History cream (Denta 5000 Plus) glipizide 10 mg tablet 10 mg PO BID 12/18/24 Unknow n History glipizide 10 mg tablet 10 mg PO BID 12/18/24 Unknow n History levothyroxine 75 mcg tablet 75 mcg PO DAILY 12/18/24 U nknown History melatonin 3 mg tablet 3 mg PO QHS 12/18/24 Unknown History metformin 500 mg tablet,extended 1,000 mg PO BID 12/18 Unknown History release 24 hr mirtazapine 30 mg disintegrating 30 mg PO QHS 12/18/24 Unknown History tablet multivitamin with minerals-ferrous 1 tab PO DAILY 12/07 08/03 Unknown History fumarate 15 mg iron tablet nut.tx.glucose intolerance,soy 1 ea PO 4X/DAY 12/18/24 Unknown History (Glucerna oral bar) omeprazole 40 mg capsule,delayed 40 mg PO DAILY Unknown History release pimavanserin 34 mg capsule 34 mg PO DAILY 12/18/24 Unk nown History (Nuplazid) polyethylene glycol 3350 17 17 g PO DAILY 12/18/24 Unk nown History gram/dose oral powder potassium chloride 10 mEq 10 meq PO DAILY 12/18/24 Unk nown History tablet,extended release(part/cryst) repaglinide 0.5 mg tablet 0.5 mg PO BID 12/18/24 Unkno wn History Allergy/AdvReac Type Severity Reaction Status Date / Time Iodinated Contrast Media Allergy UNKNOWN Verified 12/18/24 21:04 (contrast dye - iodinated) Social History Smoking Status: Unknown if ever smoked ROS Review of Systems ROS Unobtainable: due to mental status Vital Signs Vital Signs Vital Signs: 12/18/24 21:00 12/18/24 21:04 12/18/24 21:29 Temperature 97.8 F Temperature Source Oral Pulse Rate 106 H Respiratory Rate 16 Blood Pressure 145/82 H Blood Pressure Mean 103 Pulse Ox 93 91 Oxygen Delivery Method Room Air Nasal Cannula Oxygen Flow Rate (L/min) 3 12/18/24 21:30 12/18/24 22:00 Temperature Temperature Source Pulse Rate 106 H 102 H Respiratory Rate 16 16 Blood Pressure 134/73 H 128/72 H Blood Pressure Mean 93 90 Pulse Ox 93 98 Oxygen Delivery Method Room Air Room Air Oxygen Flow Rate (L/min) Weight Weight: 71.214 kg Body Mass Index (BMI) 28.7 Physical Exam Const alert, no apparent distress and average body habitus Constitutional Narrative: Upper middle-aged female, alert and making appropriate eye contact but not answering questions appropriately for me, fatigued appearing, otherwise laying back comfortably in bed and in no acute distress. General Appearance: cooperative and comfortable HEENT normocephalic, head/scalp atraumatic, hearing grossly normal bilaterally, nasal mucous membranes and turbinates normal and moist oral mucous membranes Eyes PERRL, EOMs intact bilaterally and conjunctivae normal Neck full ROM Chest inspection of chest normal Resp normal respiratory effort, normal air movement, no use of accessory muscles and clear to auscultation bilaterally Cardio regular rate, regular rhythm, no murmurs and peripheral pulses 2+ throughout GI normal to inspection, nondistended, normoactive bowel sounds, soft to palpation,non-tender and non-distended Back/Spine normal ROM Extremity normal to inspection and no pedal edema Skin no rashes or lesions noted Neuro Neuro Narrative: Parkinsonian tremor noted. Generalized weakness in legs noted. No facial droopappreciated. Results Lab / Micro Data 12/18/24 20:00 12/18/24 20:00 Labs: Laboratory Results - last 24 hr 12/18/24 20:00: WBC 13.1 H, RBC 5.38, Hgb 16.0 H, Hct 51.3 H, MCV 95.4, MCH 29.7, MCHC 31.2 L, RDW Std Deviation 44.7 H, RDW Coeff of Luis Enrique 12.8, Plt Count 295, MPV 9.3, Immature Gran % (Auto) 0.300, Neut % (Auto) 95.7 H, Lymph % (Auto)1.4 L, [place] % (Auto) 2.0, Eos % (Auto) 0.4, Baso % (Auto) 0.2, Absolute Neuts (auto) 12.5 H, Absolute Lymphs (auto) 0.18 L, Nucleated RBC % 0, PT 13.5, INR 1.0, APTT 22.4 L, Sodium 143, Potassium 4.4, Chloride 102, Carbon Dioxide 19.6 L, Anion Gap 21 H, BUN 36 H, Creatinine 0.90, Estim Creat Clear Calc 58.39, Est GFR (MDRD) Non-Af 71, BUN/Creatinine Ratio 40.2 H, Glucose 192 H, Calcium 9.3, Troponin T High Sens 10 Imaging Radiology Impression Brain CT 12/18/24 21:00 IMPRESSION: 1. No definite evidence of an acute intracranial abnormality. There is hypodensity throughout the white matter suggestive of chronic small vessel ischemic disease, and which limits evaluation for acute ischemia. Consider MRI if there is persistent concern. 2. Slight thickening in the soft tissues of the right forehead, correlate with findings on exam. The critical information above was relayed directly by me by telephone to Gamaliel Coats on 12/18/2024 at 9:13 pm with readback verification. Reading Location: [id number] Assessment & Plan Assessment/Plan (1) Stroke-like symptoms: PLAN: Plan Patient is a 64-year-old female who presented to [facility] ED on 12/18/2024 with strokelike symptoms. 1. Strokelike symptoms, CVA rule out ? Admit under observation status to PCU. Presented with slurred speech, facial droop and altered mentation. CT brain unremarkable. Has contrast allergy so CTA head/neck was not done. NIH score of 4 in the ED. Orders placed per strokeprotocol order set. MRI brain and MRA head/neck ordered. Lipid panel, A1c and TSH ordered. Will start baby aspirin and high intensity statin. PT/OT/case management consulted. 2. Leukocytosis with lymphopenia and low-grade fever ? WBC count 13.1 with 95% neutrophils and 1.4% leukocytes with absolute lymphocyte count of only 0.18. Developed low-grade fever in the ED. May be secondary to viral infection, respiratory PCR panel ordered. No new medicationsnoted per patient's guardian. Follow-up a.m. CBC with diff. 3. Type 2 diabetes mellitus ? Blood glucose 195. A1c 7.4% which is reportedly higher than previous. Will treat with sliding scale insulin with meals for now, adjust as needed. Hold home oral medications. 4. Chronic debility due to Parkinson's disease with dementia ? Case management consulted as above. Has lived at assisted living for about 6 years now. Continue home carbidopa?levodopa and benztropine. Chronic medical conditions: ? Class II obesity: BMI 38 on admit. Complicates hospital course, care and prognosis. ? GERD: Continue home PPI. ? Hypothyroidism: TSH ordered as above. Continue home Synthroid. ? Hypertension: Holding home amlodipine for permissive hypertension. DVT prophylaxis: SCDs CODE STATUS: Full code, unverified Expected disposition: TBD Total clinical time spent by myself addressing the patient's medical issues, reviewing all the data, and collaborating with patient's care team: 75 minutes. Charges/Coding Visit Charges Inpatient E&M: 44278 Init Hosp L3 12/19/24 0026 <Electronically signed by Jayashree Florez DO> Cosigner Signature (if applicable): CC: Dr. Jayashree Florez DO; No Primary Care Physician~ Signed [facility] Work Phone: 1(974) 833-281307-13-2025 Discharge summary Author Gamaliel Coats [facility] Note Date/Time December 19, 2024 12:1 7am [facility] Medical Records Department [address] [place] [address] Emergency Department Summary 12/18/24 MR#: [id number] Acct: [id number] Name: SHAJI ESQUIVEL Rep #:[id number] : 1960 64 From: Gamaliel Forrest PCP: Care Physician,No Primary Status :ADM KANDACE Location: [address] History of Present Illness Chief Complaint: Stroke Alert Informant: EMS Narrative Narrative: From by EMS from facility with prehospital stroke alert. Last normal 6:20 PM tonight hours ago. Unclear on her full baseline however per EMS they had multiple calls this year she is different. They reported slurred speech vision changes and patient reporting pain on her left side. No stroke history she is diabetic blood glucose 195. Reviewing her medication she is on diabetic medicines on a statin, blood pressure medicines, carbidopa and levodopa partially for Parkinson's, no blood thinners. Hypothyroidism. [facility] Medical History Parkinsons Hypertension Diabetes Schizophrenia Home Medications ?Medication ?Instructions ?Recorded ?Last Taken ?Type docusate sodium 100 mg capsule 100 mg PO BID Constipat ion 01/13/17 Unknown History (DOK) sennosides 8.6 mg-docusate sodium 1 tab PO DAILY 01/13 Unknown History 50 mg tablet (Senna Plus) Benacalorie 1 packet PO TID PRN intake l ess 12/18/24 Unknown History than 50% acetaminophen 500 mg tablet 1,000 mg PO TID PRN fever or pain 12/18/24 Unknown History amlodipine 2.5 mg tablet 2.5 mg PO DAILY 12/18/24 Unk nown History amlodipine 2.5 mg tablet 2.5 mg PO DAILY 12/18/24 Unk nown History atorvastatin 10 mg tablet 10 mg PO DAILY 12/18/24 Unkn own History atorvastatin 10 mg tablet 10 mg PO DAILY 12/18/24 Unkn own History benztropine 1 mg tablet 1 mg PO DAILY 12/18/24 Unkno wn History benztropine 1 mg tablet 1 mg PO QHS 12/18/24 Unknown History carbidopa 25 mg-levodopa 100 mg 2 tab PO TID 12/18/24 Unknown History tablet carbidopa 25 mg-levodopa 100 mg 2 tab PO TID 12/18/24 Unknown History tablet diclofenac sodium 1 % topical gel 4 g topical 4X/DAY 0 12/18/24 Unknown History diclofenac sodium 1 % topical gel 4 g topical 4X/DAY b il knees and 12/18/24 Unknown History right hip empagliflozin 25 mg tablet 25 mg PO DAILY 12/18/24 Unk nown History (Jardiance) estradiol 0.01% (0.1 mg/gram) 0.5 appful vaginal MOWEF R 12/18/24 Unknown History vaginal cream estradiol 0.01% (0.1 mg/gram) 0.5 appful vaginal DAILY 12/18/24 Unknown History vaginal cream (Estrace) fluoride (sodium) 1.1 % dental 1 applic dental DAILY 0 12/18/24 Unknown History cream (Denta 5000 Plus) glipizide 10 mg tablet 10 mg PO BID 12/18/24 Unknow n History glipizide 10 mg tablet 10 mg PO BID 12/18/24 Unknow n History levothyroxine 75 mcg tablet 75 mcg PO DAILY 12/18/24 U nknown History melatonin 3 mg tablet 3 mg PO QHS 12/18/24 Unknown History metformin 500 mg tablet,extended 1,000 mg PO BID 12/18 Unknown History release 24 hr mirtazapine 30 mg disintegrating 30 mg PO QHS 12/18/24 Unknown History tablet multivitamin with minerals-ferrous 1 tab PO DAILY 12/07 08/03 Unknown History fumarate 15 mg iron tablet nut.tx.glucose intolerance,soy 1 ea PO 4X/DAY 12/18/24 Unknown History (Glucerna oral bar) omeprazole 40 mg capsule,delayed 40 mg PO DAILY Unknown History release pimavanserin 34 mg capsule 34 mg PO DAILY 12/18/24 Unk nown History (Nuplazid) polyethylene glycol 3350 17 17 g PO DAILY 12/18/24 Unk nown History gram/dose oral powder potassium chloride 10 mEq 10 meq PO DAILY 12/18/24 Unk nown History tablet,extended release(part/cryst) repaglinide 0.5 mg tablet 0.5 mg PO BID 12/18/24 Unkno wn History Allergy/AdvReac Type Severity Reaction Status Date / Time Iodinated Contrast Media Allergy UNKNOWN Verified 12/18/24 21:04 (contrast dye - iodinated) Social History Smoking Status: Unknown if ever smoked ROS ROS ED Constitutional Constitutional ED: Denies fever(s) Cardiovascular Cardiovascular: Denies chest pain Respiratory/Chest Respiratory/Chest: Denies cough Gastrointestinal Gastrointestinal: Denies diarrhea or vomiting Musculoskeletal Musculoskeletal: Reports other Details: Left-sided arm and leg pain ; Denies none Integumentary Denies rash or wounds Neurologic Neurologic: Denies weakness EXAM Physical Exam Const Vital Signs: 12/18/24 21:00 12/18/24 21:04 12/18/24 21:29 Temperature 97.8 F Temperature Source Oral Pulse Rate 106 H Respiratory Rate 16 Blood Pressure 145/82 H Blood Pressure Mean 103 Pulse Ox 93 91 Oxygen Delivery Method Room Air Nasal Cannula Oxygen Flow Rate (L/min) 3 12/18/24 21:30 12/18/24 22:00 Temperature Temperature Source Pulse Rate 106 H 102 H Respiratory Rate 16 16 Blood Pressure 134/73 H 128/72 H Blood Pressure Mean 93 90 Pulse Ox 93 98 Oxygen Delivery Method Room Air Room Air Oxygen Flow Rate (L/min) Constitutional Narrative: On nasal cannula oxygen, answering questions and trying to follow commands. HEENT Reports moist mucous membranes normocephalic and atraumatic Eyes General Eye ED: Yes normal appearance of both eyes Neck full ROM Chest Wall Chest: Negative for tenderness Resp normal respiratory effort and normal air movement Effort and Inspection: symmetric chest movement; Negative for respiratory distress Cardio regular rate, regular rhythm and no murmurs Peripheral Pulses: pulses 2+ throughout GI normal to inspection, nondistended, normoactive bowel sounds and non-tender Palpation: Negative for guarding or rebound tenderness present Extremity normal to inspection General Extremety ED: Negative for edema or tenderness General Extremity: Negative for edema Neuro Sensorium / Orientation: awake Skin no rashes or lesions noted and no wounds MDM MDM MDM Narrative Medical decision making narrative: Interventions / MDM: Differential diagnosis: Slurred speech, facial droop, Parkinson's dementia Diagnosis considered but do not suspect: Intracranial hemorrhage however CT negative My EKG interpretation: Sinus rate of 105, no ST changes, isolated T wave versionaVL. Nonspecific. Imaging independently reviewed and interpreted by myself: CT head: No intracranial hemorrhage. External documents reviewed: N/A Test considered but not ordered:N/A ED course: Evaluated the mild lip on left droop no arm drift she able to move her feet. Pulses are intact. Complaint of pain on her left side. Patient be sent as a stroke protocol over CT. Callback from nursing over CT patient reported allergies to IV dye which is not documented, therefore noncontrast CT will be obtained and evaluation per stroke neurology to help with disposition plans. 2109: Reevaluate after returning CT continue to complain of pain in her left conchita both legs. She alert to name she could not tell me the year or month. Reporting [birth year] as in her birthday. Told me the age was 47. Both legs were dropped when trying to evaluate for leg strength. She reports pain when she opens both eyes. Difficult to evaluate for full NIH at this time. 2114 discussion with radiologist no intracranial hemorrhage on dry CT. However reports more hypodensity with likely microvascular disease more than expected for her age. 2119: Patient evaluated by stroke neurologist Dr. Ayesha Mckenna, additional historypatient does have Parkinson's dementia she is mostly wheelchair-bound does walk with one-person assist. New deficits for the patient would be slurred speech slight facial droop. She does would not recommend TNK however reports options need to be given with patient decision maker guardian. Discussed risk of intracranial hemorrhage. Currently under guardianship of advocacy protective services. Caregivers present also spoke with her nurse, number was given to call for discussion as she still inside the window. Await callback for discussion. However per neurology with her not ambulatory on her own would not be a thrombectomy candidate even with LVO therefore we will plan for admission for MRI and MRA. 2144: I spoke with emergency guardianship through [employer], Jerrell Thakur who called back. Discussed patient's history symptoms and neurology recommendations with no TNK. He will go with recommendations of neurology with no TNK. He has given consent to treat. Discussed we will plan to admit for MRI studies. He is in agreement of this. 2214: I spoke with hospitalist Dr. Florez for admission to PCU. Re-evaluation: stable Disposition discussed with patient/family/significant other: Caregiver, emergency guardian, Case discussed with consulting clinician: N/A This note was generated with Order Mapper dictation software. It may contain incorrectwords, spelling, and punctuation that were not noted in checking the note beforesigning. Lab Data Attestation: I reviewed the patient's lab results. Labs: Laboratory Results - last 24 hr 12/18/24 20:00 WBC 13.1 H RBC 5.38 Hgb 16.0 H Hct 51.3 H MCV 95.4 MCH 29.7 MCHC 31.2 L RDW Std Deviation 44.7 H RDW Coeff of Luis Enrique 12.8 Plt Count 295 MPV 9.3 Immature Gran % (Auto) 0.300 Neut % (Auto) 95.7 H Lymph % (Auto) 1.4 L [place] % (Auto) 2.0 Eos % (Auto) 0.4 Baso % (Auto) 0.2 Absolute Neuts (auto) 12.5 H Absolute Lymphs (auto) 0.18 L Nucleated RBC % 0 PT 13.5 INR 1.0 APTT 22.4 L Sodium 143 Potassium 4.4 Chloride 102 Carbon Dioxide 19.6 L Anion Gap 21 H BUN 36 H Creatinine 0.90 Estim Creat Clear Calc 58.39 Est GFR (MDRD) Non-Af 71 BUN/Creatinine Ratio 40.2 H Glucose 192 H Hemoglobin A1c 7.4 H Calcium 9.3 Troponin T High Sens 10 TSH 1.520 Radiography Diagnostic Testing: Clinical Impression(s) from Imaging Studies Brain CT 12/18/24 21:00 IMPRESSION: 1. No definite evidence of an acute intracranial abnormality. There is hypodensity throughout the white matter suggestive of chronic small vessel ischemic disease, and which limits evaluation for acute ischemia. Consider MRI if there is persistent concern. 2. Slight thickening in the soft tissues of the right forehead, correlate with findings on exam. The critical information above was relayed directly by me by telephone to Gamaleil Coats on 12/18/2024 at 9:13 pm with readback verification. Reading Location: [id number] Discharge Plan Dx/Rx/DC Orders Clinical Impression: Facial droop, Slurred speech, Dementia due to Parkinson's disease Disposition Disposition: Acute Care Hospital [facility] Discharge Date/Time: 12/18/24 23:09 NIHSS NIHSS 1a. Level of Consciousness: 1 - Not alert; Arousable by minor stimuli to obey, answer & respond 1b. LOC Questions: 2 - Answers NEITHER question correctly 1c. LOC Commands: 0 - Performs BOTH tasks correctly 2. Best Gaze: 0 - Normal 3. Visual: 0 - No visual loss 4. Facial Palsy: 1 - Minor paralysis (flattened nasolabial fold, asymmetry on smiling) 5a. Left Arm: 0 - No drift; arm holds 90 (or 45) degrees for full 10 seconds 5b. Right Arm: 0 - No drift; arm holds 90 (or 45) degrees for full 10 seconds 6a. Left Le - No effort against gravity; leg falls to bed immediately 6b. Right Le - No effort against gravity; leg falls to bed immediately 7. Limb Ataxia: 0 - Absent 8. Sensory: 0 - Normal; no sensory loss 9. Best Language: 1 - Puin-dt-rqxskzxe aphasia; 10. Dysarthria: 1 = Yyqw-sb-pufpgiih dysarthria; 11. Extinction and Inattention: 0 - No abnormality Total: 12 Stroke Questions Stroke Team Activated: Yes Reviewed Inclusion/Exclusion criteria: Yes IV Thrombolytic Administered: No (Not recommended by neurology along with appointed guardianship) What to do if you have Problems For any increased pain, shortness of breath, bleeding, nausea or vomiting, chestpain, or any unexpected problems, contact your Primary Care Provider. Call [facility] [facility] ([phone]) or report to the closest Emergency Room. Call 911 if necessary. 12/19/24 0017 <Electronically signed by Gamaliel Forrest> Cosigner Signature (if applicable): CC: No Primary Care Physician ~ Signed [facility] Work Phone: [phone] History and physical note [facility] Medical Records Department [address] [place] [address] H&P Exam - Hospitalist 12/18/244 MR#: [id number] Acct: [id number] Name: SHAJI ESQUIVEL Rep #:[id number] : 1960 64 From: Jayashree welch DO PCP: Care Physician,No Primary Status :ADM [facility]ACE Location: [place] [address] HPI - General General Date of Admission: 12/18/24 Date of Service: 12/18/24 Chief Complaint: Slurred speech with facial droop HPI Narrative SAHJI ESQUIVEL, is a 64 F who presented to [facility] ED on 12/18/2024 with slurred speech and facial droop. Medical history significant fordementia due to Parkinson's disease, hypertension, hyperlipidemia and type 2 diabetes. Patient has lived in assisted living for the past 6 years or so. At baseline she needs assistance to ambulate, will otherwise use a wheelchair. Needs help bathing and dressing. Typically does not know the month or age. Mark typically reports chronic whole body pain. Staff member who knows her wellaccompanied her to the ED today. She noticed that the patient seemed off from her usual today. Patient usually has good energy level and very good appetite. However today she seemed more fatigued and ate very little. She noticed the patient was staring off forseconds at a time this afternoon which was not her usual. Then this evening patient appeared to have a facial droop, and when staff attempted to have her speak to them she had slurred speech, so theybrought her in for further evaluation. She was a stroke alert in the ED. Vitals notable for mild sinus tachycardia to the 100s, mild hypertension to the 140s systolic, otherwise stable on room air. CT brain was unremarkable. Patient has a contrast allergy so CTA head and neck was not done. Chest x-ray was unremarkable. Labs notable for WBC count 13 with neutrophil predominance and lymphopenia, creatinine 0.9 (baseline around 0.7), BUN 36, glucose 192. UA showed 150 ketones, 1000 glucose, otherwise unremarkable and noninfectious appearing. NIH score of 4 per neurology. TNK was not given as patient is not ambulatory on her own. Hospitalist was contacted for admission. I saw the patient at bedside in the ED, guarding was present. Patient was fatigued appearing but otherwise laying back comfortably in bed and in no acute distress. She opened her eyes for me and did complain of full body pain but otherwise wasnot answering questions appropriately for me. Will be admitted for further management. [facility] Medical History (Updated 12/19/24 @ 00:[address] Jayashree Florez, DO) Parkinsons Hypertension Diabetes Schizophrenia Home Medications ?Medication ?Instructions ?Recorded ?Last Taken ?Type docusate sodium 100 mg capsule 100 mg PO BID Constipat ion 01/13/17 Unknown History (DOK) sennosides 8.6 mg-docusate sodium 1 tab PO DAILY 01/13 Unknown History 50 mg tablet (Senna Plus) Benacalorie 1 packet PO TID PRN intake l ess 12/18/24 Unknown History than 50% acetaminophen 500 mg tablet 1,000 mg PO TID PRN fever or pain 12/18/24 Unknown History amlodipine 2.5 mg tablet 2.5 mg PO DAILY 12/18/24 Unk nown History amlodipine 2.5 mg tablet 2.5 mg PO DAILY 12/18/24 Unk nown History atorvastatin 10 mg tablet 10 mg PO DAILY 12/18/24 Unkn own History atorvastatin 10 mg tablet 10 mg PO DAILY 12/18/24 Unkn own History benztropine 1 mg tablet 1 mg PO DAILY 12/18/24 Unkno wn History benztropine 1 mg tablet 1 mg PO QHS 12/18/24 Unknown History carbidopa 25 mg-levodopa 100 mg 2 tab PO TID 12/18/24 Unknown History tablet carbidopa 25 mg-levodopa 100 mg 2 tab PO TID 12/18/24 Unknown History tablet diclofenac sodium 1 % topical gel 4 g topical 4X/DAY 0 12/18/24 Unknown History diclofenac sodium 1 % topical gel 4 g topical 4X/DAY b il knees and 12/18/24 Unknown History right hip empagliflozin 25 mg tablet 25 mg PO DAILY 12/18/24 Unk nown History (Jardiance) estradiol 0.01% (0.1 mg/gram) 0.5 appful vaginal MOWEF R 12/18/24 Unknown History vaginal cream estradiol 0.01% (0.1 mg/gram) 0.5 appful vaginal DAILY 12/18/24 Unknown History vaginal cream (Estrace) fluoride (sodium) 1.1 % dental 1 applic dental DAILY 0 12/18/24 Unknown History cream (Denta 5000 Plus) glipizide 10 mg tablet 10 mg PO BID 12/18/24 Unknow n History glipizide 10 mg tablet 10 mg PO BID 12/18/24 Unknow n History levothyroxine 75 mcg tablet 75 mcg PO DAILY 12/18/24 U nknown History melatonin 3 mg tablet 3 mg PO QHS 12/18/24 Unknown History metformin 500 mg tablet,extended 1,000 mg PO BID 12/18 Unknown History release 24 hr mirtazapine 30 mg disintegrating 30 mg PO QHS 12/18/24 Unknown History tablet multivitamin with minerals-ferrous 1 tab PO DAILY 12/07 08/03 Unknown History fumarate 15 mg iron tablet nut.tx.glucose intolerance,soy 1 ea PO 4X/DAY 12/18/24 Unknown History (Glucerna oral bar) omeprazole 40 mg capsule,delayed 40 mg PO DAILY Unknown History release pimavanserin 34 mg capsule 34 mg PO DAILY 12/18/24 Unk nown History (Nuplazid) polyethylene glycol 3350 17 17 g PO DAILY 12/18/24 Unk nown History gram/dose oral powder potassium chloride 10 mEq 10 meq PO DAILY 12/18/24 Unk nown History tablet,extended release(part/cryst) repaglinide 0.5 mg tablet 0.5 mg PO BID 12/18/24 Unkno wn History Allergy/AdvReac Type Severity Reaction Status Date / Time Iodinated Contrast Media Allergy UNKNOWN Verified 12/18/24 21:04 (contrast dye - iodinated) Social History Smoking Status: Unknown if ever smoked ROS Review of Systems ROS Unobtainable: due to mental status Vital Signs Vital Signs Vital Signs: 12/18/24 21:00 12/18/24 21:04 12/18/24 21:29 Temperature 97.8 F Temperature Source Oral Pulse Rate 106 H Respiratory Rate 16 Blood Pressure 145/82 H Blood Pressure Mean 103 Pulse Ox 93 91 Oxygen Delivery Method Room Air Nasal Cannula Oxygen Flow Rate (L/min) 3 12/18/24 21:30 12/18/24 22:00 Temperature Temperature Source Pulse Rate 106 H 102 H Respiratory Rate 16 16 Blood Pressure 134/73 H 128/72 H Blood Pressure Mean 93 90 Pulse Ox 93 98 Oxygen Delivery Method Room Air Room Air Oxygen Flow Rate (L/min) Weight Weight: 71.214 kg Body Mass Index (BMI) 28.7 Physical Exam Const alert, no apparent distress and average body habitus Constitutional Narrative: Upper middle-aged female, alert and making appropriate eye contact but not answering questions appropriately for me, fatigued appearing, otherwise laying back comfortably in bed and in no acute distress. General Appearance: cooperative and comfortable HEENT normocephalic, head/scalp atraumatic, hearing grossly normal bilaterally, nasal mucous membranes and turbinates normal and moist oral mucous membranes Eyes PERRL, EOMs intact bilaterally and conjunctivae normal Neck full ROM Chest inspection of chest normal Resp normal respiratory effort, normal air movement, no use of accessory muscles and clear to auscultation bilaterally Cardio regular rate, regular rhythm, no murmurs and peripheral pulses 2+ throughout GI normal to inspection, nondistended, normoactive bowel sounds, soft to palpation,non-tender and non-distended Back/Spine normal ROM Extremity normal to inspection and no pedal edema Skin no rashes or lesions noted Neuro Neuro Narrative: Parkinsonian tremor noted. Generalized weakness in legs noted. No facial droopappreciated. Results Lab / Micro Data 12/18/24 20:00 12/18/24 20:00 Labs: Laboratory Results - last 24 hr 12/18/24 20:00: WBC 13.1 H, RBC 5.38, Hgb 16.0 H, Hct 51.3 H, MCV 95.4, MCH 29.7, MCHC 31.2 L, RDW Std Deviation 44.7 H, RDW Coeff of Luis Enrique 12.8, Plt Count 295, MPV 9.3, Immature Gran % (Auto) 0.300, Neut % (Auto) 95.7 H, Lymph % (Auto)1.4 L, [place] % (Auto) 2.0, Eos % (Auto) 0.4, Baso % (Auto) 0.2, Absolute Neuts (auto) 12.5 H, Absolute Lymphs (auto) 0.18 L, Nucleated RBC % 0, PT 13.5, INR 1.0, APTT22.4 L, Sodium 143, Potassium 4.4, Chloride 102, Carbon Dioxide 19.6 L, Anion Gap 21 H, BUN 36 H, Creatinine 0.90, Estim Creat Clear Calc 58.39, Est GFR (MDRD) Non-Af 71, BUN/Creatinine Ratio 40.2 H,Glucose 192 H, Calcium 9.3, Troponin T High Sens 10 Imaging Radiology Impression Brain CT 12/18/24 21:00 IMPRESSION: 1. No definite evidence of an acute intracranial abnormality. There is hypodensity throughout the white matter suggestive of chronic small vessel ischemic disease, and which limits evaluation for acute ischemia. Consider MRIif there is persistent concern. 2. Slight thickening in the soft tissues of the right forehead, correlate with findings on exam. The critical information above was relayed directly by me by telephone to Gamaliel Coats on 12/18/2024 at 9:13 pm with readback verification. Reading Location: [id number] Assessment & Plan Assessment/Plan (1) Stroke-like symptoms: PLAN: Plan Patient is a 64-year-old female who presented to [facility] ED on 12/18/2024 with strokelike symptoms. 1. Strokelike symptoms, CVA rule out ? Admit under observation status to PCU. Presented with slurred speech, facial droop and altered mentation. CT brain unremarkable. Has contrast allergy so CTA head/neck was not done. NIH score of 4 in the ED. Orders placed per strokeprotocol order set. MRI brain and MRA head/neck ordered. Lipid panel, A1c and TSH ordered. Will start baby aspirin and high intensity statin. PT/OT/case management consulted. 2. Leukocytosis with lymphopenia and low-grade fever ? WBC count 13.1 with 95% neutrophils and 1.4% leukocytes with absolute lymphocyte count of only 0.18. Developed low-grade fever in the ED. May be secondary to viral infection, respiratory PCR panel ordered. No new medicationsnoted per patient's guardian. Follow-up a.m. CBC with diff. 3. Type 2 diabetes mellitus ? Blood glucose 195. A1c 7.4% which is reportedly higher than previous. Will treat with sliding scale insulin with meals for now, adjust as needed. Hold home oral medications. 4. Chronic debility due to Parkinson's disease with dementia ? Case management consulted as above. Has lived at assisted living for about 6 years now. Continue home carbidopa?levodopa and benztropine. Chronic medical conditions: ? Class II obesity: BMI 38 on admit. Complicates hospital course, care and prognosis. ? GERD: Continue home PPI. ? Hypothyroidism: TSH ordered as above. Continue home Synthroid. ? Hypertension: Holding home amlodipine for permissive hypertension. DVT prophylaxis: SCDs CODE STATUS: Full code, unverified Expected disposition: TBD Total clinical time spent by myself addressing the patient's medical issues, reviewing all the data, and collaborating with patient's care team: 75 minutes. Charges/Coding Visit Charges Inpatient E&M: 40464 Init Hosp L3 12/19/24 0026 Cosigner Signature (if applicable): CC: Dr. Jayashree Florez, ; No Primary Care Physician~ Signed [facility]07-13-2025 Discharge summary [facility] Medical Records Department [address] [place] [address] Emergency Department Summary 12/18/24 MR#: [id number] Acct: [id number] Name: SHAJI ESQUIVEL Rep #:[id number] : 1960 64 From: Gamaliel Forrest PCP: Care Physician,No Primary Status :ADM [facility] Location: [place] [address] HPI History of Present Illness Chief Complaint: Stroke Alert Informant: EMS Narrative Narrative: From by EMS from facility with prehospital stroke alert. Last normal 6:20 PM tonight hours ago. Unclear on her full baseline however per EMS they had multiple calls this year she is different. They reported slurred speech vision changes and patient reporting pain on her left side. No stroke historyshe is diabetic blood glucose 195. Reviewing her medication she is on diabetic medicines on a statin, blood pressure medicines, carbidopa and levodopa partially for Parkinson's, no blood thinners. Hypothyroidism. [facility] Medical History Parkinsons Hypertension Diabetes Schizophrenia Home Medications ?Medication ?Instructions ?Recorded ?Last Taken ?Type docusate sodium 100 mg capsule 100 mg PO BID Constipat ion 01/13/17 Unknown History (DOK) sennosides 8.6 mg-docusate sodium 1 tab PO DAILY 01/13 Unknown History 50 mg tablet (Senna Plus) Benacalorie 1 packet PO TID PRN intake l ess 12/18/24 Unknown History than 50% acetaminophen 500 mg tablet 1,000 mg PO TID PRN fever or pain 12/18/24 Unknown History amlodipine 2.5 mg tablet 2.5 mg PO DAILY 12/18/24 Unk nown History amlodipine 2.5 mg tablet 2.5 mg PO DAILY 12/18/24 Unk nown History atorvastatin 10 mg tablet 10 mg PO DAILY 12/18/24 Unkn own History atorvastatin 10 mg tablet 10 mg PO DAILY 12/18/24 Unkn own History benztropine 1 mg tablet 1 mg PO DAILY 12/18/24 Unkno wn History benztropine 1 mg tablet 1 mg PO QHS 12/18/24 Unknown History carbidopa 25 mg-levodopa 100 mg 2 tab PO TID 12/18/24 Unknown History tablet carbidopa 25 mg-levodopa 100 mg 2 tab PO TID 12/18/24 Unknown History tablet diclofenac sodium 1 % topical gel 4 g topical 4X/DAY 0 12/18/24 Unknown History diclofenac sodium 1 % topical gel 4 g topical 4X/DAY b il knees and 12/18/24 Unknown History right hip empagliflozin 25 mg tablet 25 mg PO DAILY 12/18/24 Unk nown History (Jardiance) estradiol 0.01% (0.1 mg/gram) 0.5 appful vaginal MOWEF R 12/18/24 Unknown History vaginal cream estradiol 0.01% (0.1 mg/gram) 0.5 appful vaginal DAILY 12/18/24 Unknown History vaginal cream (Estrace) fluoride (sodium) 1.1 % dental 1 applic dental DAILY 0 12/18/24 Unknown History cream (Denta 5000 Plus) glipizide 10 mg tablet 10 mg PO BID 12/18/24 Unknow n History glipizide 10 mg tablet 10 mg PO BID 12/18/24 Unknow n History levothyroxine 75 mcg tablet 75 mcg PO DAILY 12/18/24 U nknown History melatonin 3 mg tablet 3 mg PO QHS 12/18/24 Unknown History metformin 500 mg tablet,extended 1,000 mg PO BID 12/18 Unknown History release 24 hr mirtazapine 30 mg disintegrating 30 mg PO QHS 12/18/24 Unknown History tablet multivitamin with minerals-ferrous 1 tab PO DAILY 12/07 08/03 Unknown History fumarate 15 mg iron tablet nut.tx.glucose intolerance,soy 1 ea PO 4X/DAY 12/18/24 Unknown History (Glucerna oral bar) omeprazole 40 mg capsule,delayed 40 mg PO DAILY Unknown History release pimavanserin 34 mg capsule 34 mg PO DAILY 12/18/24 Unk nown History (Nuplazid) polyethylene glycol 3350 17 17 g PO DAILY 12/18/24 Unk nown History gram/dose oral powder potassium chloride 10 mEq 10 meq PO DAILY 12/18/24 Unk nown History tablet,extended release(part/cryst) repaglinide 0.5 mg tablet 0.5 mg PO BID 12/18/24 Unkno wn History Allergy/AdvReac Type Severity Reaction Status Date / Time Iodinated Contrast Media Allergy UNKNOWN Verified 12/18/24 21:04 (contrast dye - iodinated) Social History Smoking Status: Unknown if ever smoked ROS ROS ED Constitutional Constitutional ED: Denies fever(s) Cardiovascular Cardiovascular: Denies chest pain Respiratory/Chest Respiratory/Chest: Denies cough Gastrointestinal Gastrointestinal: Denies diarrhea or vomiting Musculoskeletal Musculoskeletal: Reports other Details: Left-sided arm and leg pain ; Denies none Integumentary Denies rash or wounds Neurologic Neurologic: Denies weakness EXAM Physical Exam Const Vital Signs: 12/18/24 21:00 12/18/24 21:04 12/18/24 21:29 Temperature 97.8 F Temperature Source Oral Pulse Rate 106 H Respiratory Rate 16 Blood Pressure 145/82 H Blood Pressure Mean 103 Pulse Ox 93 91 Oxygen Delivery Method Room Air Nasal Cannula Oxygen Flow Rate (L/min) 3 12/18/24 21:30 12/18/24 22:00 Temperature Temperature Source Pulse Rate 106 H 102 H Respiratory Rate 16 16 Blood Pressure 134/73 H 128/72 H Blood Pressure Mean 93 90 Pulse Ox 93 98 Oxygen Delivery Method Room Air Room Air Oxygen Flow Rate (L/min) Constitutional Narrative: On nasal cannula oxygen, answering questions and trying to follow commands. HEENT Reports moist mucous membranes normocephalic and atraumatic Eyes General Eye ED: Yes normal appearance of both eyes Neck full ROM Chest Wall Chest: Negative for tenderness Resp normal respiratory effort and normal air movement Effort and Inspection: symmetric chest movement; Negative for respiratory distress Cardio regular rate, regular rhythm and no murmurs Peripheral Pulses: pulses 2+ throughout GI normal to inspection, nondistended, normoactive bowel sounds and non-tender Palpation: Negative for guarding or rebound tenderness present Extremity normal to inspection General Extremety ED: Negative for edema or tenderness General Extremity: Negative for edema Neuro Sensorium / Orientation: awake Skin no rashes or lesions noted and no wounds MDM MDM MDM Narrative Medical decision making narrative: Interventions / MDM: Differential diagnosis: Slurred speech, facial droop, Parkinson's dementia Diagnosis considered but do not suspect: Intracranial hemorrhage however CT negative My EKG interpretation: Sinus rate of 105, no ST changes, isolated T wave versionaVL. Nonspecific. Imaging independently reviewed and interpreted by myself: CT head: No intracranial hemorrhage. External documents reviewed: N/A Test considered but not ordered:N/A ED course: Evaluated the mild lip on left droop no arm drift she able to move her feet. Pulses are intact. Complaint of pain on her left side. Patient be sent as a stroke protocol over CT. Callback from nursing over CT patient reported allergies to IV dye which is not documented, therefore noncontrast CT will be obtained and evaluation per stroke neurology to help with disposition plans. 2109: Reevaluate after returning CT continue to complain of pain in her left conchita both legs. She alert to name she could not tell me the year or month. Reporting [birth year] as in her birthday. Told me the age was 47. Both legs were dropped when trying to evaluate for leg strength. She reports pain when she opens both eyes. Difficult to evaluate for full NIH at this time. 2114 discussion with radiologist no intracranial hemorrhage on dry CT. However reports more hypodensity with likely microvascular disease more than expected for her age. 2119: Patient evaluated by stroke neurologist Dr. Ayesha Mckenna, additional historypatient does have Parkinson's dementia she is mostly wheelchair-bound does walk with one-person assist. New deficits for the patient would be slurred speech slight facial droop. She does would not recommend TNK however reports options need to be given with patient decision maker guardian. Discussed risk of intracranial hemorrhage. Currently under guardianship of advocacy protective services. Caregivers present also spoke with her nurse, number was given to call for discussion as she still inside the window. Await callback for discussion. However per neurology with her not ambulatory on her own would not be a thro mbectomy candidate even with LVO therefore we will plan for admission for MRI and MRA. 2144: I spoke with emergency guardianship through advocacy protective service, Jerrell Thakur who called back. Discussed patient's history symptoms and neurology recommendations with no TNK. He will gowith recommendations of neurology with no TNK. He has given consent to treat. Discussed we will plan to admit for MRI studies. He is in agreement of this. 2214: I spoke with hospitalist Dr. Florez for admission to PCU. Re-evaluation: stable Disposition discussed with patient/family/significant other: Caregiver, emergency guardian, Case discussed with consulting clinician: N/A This note was generated with Order Mapper dictation software. It may contain incorrectwords, spelling, and punctuation that were not noted in checking the note beforesigning. Lab Data Attestation: I reviewed the patient's lab results. Labs: Laboratory Results - last 24 hr 12/18/24 20:00 WBC 13.1 H RBC 5.38 Hgb 16.0 H Hct 51.3 H MCV 95.4 MCH 29.7 MCHC 31.2 L RDW Std Deviation 44.7 H RDW Coeff of Luis Enrique 12.8 Plt Count 295 MPV 9.3 Immature Gran % (Auto) 0.300 Neut % (Auto) 95.7 H Lymph % (Auto) 1.4 L [place] % (Auto) 2.0 Eos % (Auto) 0.4 Baso % (Auto) 0.2 Absolute Neuts (auto) 12.5 H Absolute Lymphs (auto) 0.18 L Nucleated RBC % 0 PT 13.5 INR 1.0 APTT 22.4 L Sodium 143 Potassium 4.4 Chloride 102 Carbon Dioxide 19.6 L Anion Gap 21 H BUN 36 H Creatinine 0.90 Estim Creat Clear Calc 58.39 Est GFR (MDRD) Non-Af 71 BUN/Creatinine Ratio 40.2 H Glucose 192 H Hemoglobin A1c 7.4 H Calcium 9.3 Troponin T High Sens 10 TSH 1.520 Radiography Diagnostic Testing: Clinical Impression(s) from Imaging Studies Brain CT 12/18/24 21:00 IMPRESSION: 1. No definite evidence of an acute intracranial abnormality. There is hypodensity throughout the white matter suggestive of chronic small vessel ischemic disease, and which limits evaluation for acute ischemia. Consider MRIif there is persistent concern. 2. Slight thickening in the soft tissues of the right forehead, correlate with findings on exam. The critical information above was relayed directly by me by telephone to Gamaliel Coats on 12/18/2024 at 9:13 pm with readback verification. Reading Location: [id number] Discharge Plan Dx/Rx/DC Orders Clinical Impression: Facial droop, Slurred speech, Dementia due to Parkinson's disease Disposition Disposition: [facility] Discharge Date/Time: 12/18/24 23:09 NIHSS NIHSS 1a. Level of Consciousness: 1 - Not alert; Arousable by minor stimuli to obey, answer & respond 1b. LOC Questions: 2 - Answers NEITHER question correctly 1c. LOC Commands: 0 - Performs BOTH tasks correctly 2. Best Gaze: 0 - Normal 3. Visual: 0 - No visual loss 4. Facial Palsy: 1 - Minor paralysis (flattened nasolabial fold, asymmetry on smiling) 5a. Left Arm: 0 - No drift; arm holds 90 (or 45) degrees for full 10 seconds 5b. Right Arm: 0 - No drift; arm holds 90 (or 45) degrees for full 10 seconds 6a. Left Le - No effort against gravity; leg falls to bed immediately 6b. Right Le - No effort against gravity; leg falls to bed immediately 7. Limb Ataxia: 0 - Absent 8. Sensory: 0 - Normal; no sensory loss 9. Best Language: 1 - Nhui-ai-qhaobokv aphasia; 10. Dysarthria: 1 = Ccyv-kq-plxwzino dysarthria; 11. Extinction and Inattention: 0 - No abnormality Total: 12 Stroke Questions Stroke Team Activated: Yes Reviewed Inclusion/Exclusion criteria: Yes IV Thrombolytic Administered: No (Not recommended by neurology along with appointed guardianship) What to do if you have Problems For any increased pain, shortness of breath, bleeding, nausea or vomiting, chestpain, or any unexpected problems, contact your Primary Care Provider. Call [facility] ([phone]) or report tothe closest Emergency Room. Call 911 if necessary. 12/19/24 0017 Cosigner Signature (if applicable): CC: No Primary Care Physician ~ Signed [facility]07-12-2025 Radiology Diagnostic study note [facility] Imaging Services [address], [place] [id number] Chest 1 View MR#: [id number] Acct: [id number] Name: SHAJI ESQUIVEL Rep #: [id number] : 1960 F 64 From: Migdalia Vigil MD PCP: Care Physician,No Primary Status: ADM KANDACE Study:Chest 1 View Date of Exam: 5 Exam# [id number] Ordering Dr: Gamaliel Coats DO PROCEDURE: CHEST 1 VIEW 12/18/2024 REASON FOR EXAM: NEURO DEFICIT, ACUTE, STROKE SUSPECTED TECHNIQUE: Frontal view of the chest. COMPARISON: None FINDINGS: Hardware: None Heart: The heart size is normal. Lungs: No focal consolidation or significant pleural effusion. Bones: Degenerative changes are identified within the thoracic spine. RAD/Chest 1 View IMPRESSION: No acute cardiopulmonary abnormality. Reading Location: [facility] CC: Dr. Gamaliel Coats DO; No Primary Care Physician ~ Icing Mixer: Signed [facility]07-12-2025 Radiology Diagnostic study note [facility] Imaging Services [address] [place] [address] STROKE Brain/Head without Cont MR#: [id number] Acct: [id number] Name: SHAJI ESQUIVEL Rep #: [id number] : 1960 F 64 From: Migdalia Vigil MD PCP: Dr. Antwan Watters MD Status: REG E R Study:STROKE Brain/Head without Cont Date of Exam: 12/18/24 Exam# [id number] Ordering Dr: Gamaliel Coats DO PROCEDURE: STROKE BRAIN/HEAD WITHOUT CONT 12/18/2024 REASON FOR EXAM: NEURO DEFICIT, ACUTE, STROKE SUSPECTED TECHNIQUE: STROKE BRAIN/HEAD WITHOUT CONT Coronal and Sagittal reconstruction series were provided. One or more dose reduction techniques were used (e.g., Automated exposure control, adjustment of the mA and/or kV according to patient size, use of iterative reconstruction technique. RADIATION DOSE SUMMARY: CTDlvol: 45 mGy DLP: 830 mGycm COMPARISON: None FINDINGS: Brain: No acute intracranial hemorrhage, mass effect, or midline shift. Extensive low density in the deep cerebral white matter most likely represents advanced chronic small vessel ischemic disease. CSF Spaces: Generalized cerebral atrophy. Sinuses/Mastoids: Predominantly clear. Bones: Unremarkable Scalp: Slight thickening of the soft tissues in the right forehead. CT/STROKE Brain/Head without Cont IMPRESSION: 1. No definite evidence of an acute intracranial abnormality. There is hypodensity throughout the white matter suggestive of chronic small vessel ischemic disease, and which limits evaluation for acute ischemia. Consider MRIif there is persistent concern. 2. Slight thickening in the soft tissues of the right forehead, correlate with findings on exam. The critical information above was relayed directly by me by telephone to Gamaliel Coats on 12/18/2024 at 9:13 pm with readback verification. Reading Location: [id number] CC: Dr. Antwan Watters MD; Dr. Gamaliel Coats DO Icing Mixer: Signed [facility]06-30-2025 Telephone encounter Note* Telephone Encounter - Lupe Ochoa LPN - 12/06/2024 3:02 PM EDT Pt home calling for this med, previous pcp rx. Can you please send [id number] Miscellaneous Notes* Telephone Encounter - Lupe Ochoa LPN - 12/06/2024 3:02 PM EDT Pt home calling for this med, previous pcp rx. Can you please send documented in this [id number] Miguel Esquivel 64 y.o. 1960 female Changes since [...] second test should be considered NIL 10/08/2024 0.05488 IU/mL Final Mitogen Minus Nil 10/08/2024 2.84340 IU/mL Final TB1 Minus Nil 10/08/2024 -0.21724 0.00 - 0.34 IU/mL Final TB2 Minus Nil 10/08/2024 0.57133 0.00 - 0.34 IU/mL Final Interferon gamma [...] Unable To Ans (more content not included)... [facility] [id number] History of Present illness Narrative* Marcos Barrera MD - 11/11/2024 11:03 AM EDT Shaji Esquivel 64 y.o. 1960 female Changes [...] antigens was detected. Latent infection with M tuberculosisis unlikely. A single negative result does not exclude infection with M tuberculosis. In patients at high risk for M tuberculosis infection,a second test should be considered NIL 10/08/2024 0.22503 IU/mL Final Mitogen Minus Nil 10/08/2024 2.36683 IU/mL Final TB1 Minus Nil 10/08/2024 -0.34373 0.00 - 0.34 IU/mL Final TB2 Minus Nil 10/08/2024 0.39867 0.00 - 0.34 IU/mL Final Interferon gamma release is measured for specimens from each of the four collection tubes. A qualitative result (Negative, Positive, or Indeterminate) is based on interpretation of the four values, NIL, MITOGEN minus NIL (MITOGEN- NIL), TB1 minus NIL (TB1-NIL), and TB2 minus NIL (TB2-NIL). The NIL value represents nonspecific reactivity produced by the patient specimen. The MITOGEN-NIL value serves as the positive control for the patient specimen, demonstrating successful lymphocyte reactivity. The TB1-NIL tube specifically detects CD4+ lymphocyte reactivity, specifically stimulated by the TB1 antigens. The TB2-NIL tube detects both CD4+ and CD8+ lymphocyte reactivity, stimulated by the EA1fjqzorfk. An overall Negative result does not completely rule out TB Infection. Assessment & Plan: 64-year-old female had upper GI series for abnormal CAT scan of the abdomen. Upper GI series revealed gastroesophageal reflux and normal small bowel. I recommended continue Prilosec and follow-up by primary care physician. Discussed the results withcaregiver. aMrcos Barrera MD [1] Social History Socioeconomic History [...] answer Stress: Patient Unable To Answer (07/13/2024) [place] [facility] - Occupational Stress Questionnaire Feeling of Stress : Patient unable to answer Social Connections: Patient Unable To Answer (07/13/2024) Social Connection and Isolation Panel [NHANES] Frequency of Communication with Friends and Family: Patient unable to answer Frequency of Social Gatherings with Friends and Family: Patient unable to answer Attends Scientologist Services: Patient unable to answer Active Member [...] AND ALLOW TO DISSOLVE AT BEDTIME . pflunkwj-cpi-mmqhkdb fumarate 15 mg iron Tab Take 1 [...] oil-petrolatum (PREPARATION H) Oint Insert 1 Application intothe rectum 4 (four) times a day as [...] total) by mouth 2 (two) times a daybefore meals . 180 tablet 1 senna-docusate (SENNA-S) 8.6-50 mg Take 1 (one) tablet by mouth daily . UNABLE TO FIND Benacalorie mixed in food or drink 3 times daily as needed for meal intake less than50% . OLANZapine (ZYPREXA) 5 MG tablet Take 1 (one) tablet (5 mg total) by mouth nightly . (Patient not taking: Reported on 11/11/2024 .) pimavanserin 10 mg Tab Take 1 (one) tablet (10 mg total) by mouth daily . (Patient not taking: Reported on 11/11/2024 .) No current facility-administered medications for this visit. documented in this [id number] Faviola Kimble DPM Patient Name: Shaji Esquivel. . [...] answer Stress: Patient Unable To Answer (07/13/2024) [place] [facility] - Occupational Stress Questionnaire Feeling of Stress : Patient unable to answer Social Connections: Patient Unable To Answer (07/13/2024) Social Connection and Isolation Panel [NHANES] Frequency of Communication with Friends and Family: Patient unable to answer Frequency of Social Gatherings with Friends and Family: Patient unable to answer Attends Scientologist Services: Patient unable to answer Active Member [...] intact. Protective sensation is diminished using the [place] Piotr monofilament. Dermatologic: The right great toenail [...] meaning may be extrapolated by contextual derivation. Marci Kimble DPM, MS Podiatric Physician & Surgeon AUTHENTICATED BY MARCI KIMBLE, ON 10/25/2024 11:10:27[facility] 10-25-2024 History of Present illness Narrative* Marci Kimble DPM - 10/25/2024 11:02 AM EDT Images from the original note were not included. Marci Kimble DPM Patient Name: Shaji Esquivel. . Date of : 1960, 64 y.o.. Gender: female. Subjective: Patient is a pleasant 64-year-old female who presents to clinic for painful right great toe nail. Patient's aide/nurse by her side stating that it is difficult for her to cut her right great toenail.She also admits to numbness and tingling to [...] answer Stress: Patient Unable To Answer (07/13/2024) [place] [facility] - Occupational Stress Questionnaire Feeling of Stress : Patient unable to answer Social Connections: Patient Unable To Answer (07/13/2024) Social Connection and Isolation Panel [NHANES] Frequency of Communication with Friends and Family: Patient unable to answer Frequency of Social Gatherings with Friends and Family: Patient unable to answer Attends Scientologist Services: Patient unable to answer Active Member [...] intact. Protective sensation is diminished using the [place] Piotr monofilament. Dermatologic: The right great toenail [...] and length. Patient expressed pain relief following theprocedure. Patient qualifies for nail care due to at risk foot criteria based on Q9 Modifier secondary to diabetic peripheral neuropathy. All questions were answered to patient satisfaction. Patient understands to call with any questionsor concerns. Follow-up in 3 months for at risk foot care. This note was partially created using voice recognition software and is inherently subject to errors including those of syntax and sound-alike substitutions which may escape proofreading. In such instances, original meaning may be extrapolated by contextual derivation. Marci Kimble DPM, MS Podiatric Physician & Surgeon documented in this [id number] History of Present illness Narrative* Ann Guerrero RN - 10/12/2024 4:07 PM EDT MEDICATION RECONCILIATION COMPLETED USING REM MED SHEETS. MED SHEETS TITLED ACTIVE ORDERS OF 10/01/2024. MEDICATIONS NOT LISTED ON REM LIST MARKED FOR REVIEW. documented in this [id number] History of Present illness Narrative* Serene Terrell MA - 10/11/2024 8:53 AM EDT Spoke to Camelia, review results. Faxed results to [phone]. documented in this [id number] Evaluation + Plan note* Assessment & Plan Note - Mg Evans DO - 09/21/2024 12:36 PM EDT Associated Problem(s): Abnormal CT of the abdomen Incidental finding edematous appearance of duodenum infusional loop in upper abdomen probably nonspecific. She has met with Dr. Jones who ordered GI series with small bowel follow-through, deferred EGD for now. [id number] Miscellaneous Notes* Assessment & Plan Note - Mg Evans DO - 09/21/2024 12:36 PM EDTAssociated Problem(s): Abnormal CT of the abdomen Incidental finding edematous appearance of duodenum infusional loop in upper abdomen probably nonspecific. She has met with Dr. Jones who ordered GI series with small bowel follow-through, deferred EGD for now. * Assessment & Plan Note - Mg Evans DO - 09/21/2024 12:35 PM EDT Associated Problem(s): Recurrent falls Multiple falls recently may have been due to E. coli UTI, treated with Keflex, completed today. Concern for interaction between Sinemet and olanzapine. She has followed up with psychiatry and they have stopped olanzapine. Shuffling gait with Parkinson's disease increases fall risk. Lives in long term. Staff tries to have aide assist with walking all the time; patient sometimes up without alerting staff. 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 - She has just completed physical therapy and is walking better - Wear closed footwear with non-slip bottom - No area rugs - Keep cords clear of walkways - Walk with staff assistance only * Assessment & Plan Note - Mg Evans DO - 09/21/2024 12:34 PM EDT Associated Problem(s): Type 2 diabetes mellitus without [...] A1c and urine microalbumin documented in this [id number] Evaluation + Plan note* Assessment & Plan Note - Mg Evans DO - 09/21/2024 12:35 PM EDT Associated Problem(s): Recurrent falls Multiple falls recently may have been due to E. coli UTI, treated with Keflex, completed today. Concern for interaction between Sinemet and olanzapine. She has followed up with psychiatry and they have stopped olanzapine. Shuffling gait with Parkinson's disease increases fall risk. Lives in long term. Staff tries to have aide assist with walking all the time; patient sometimes up without alerting staff. 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 - She has just completed physical therapy and is walking better - Wear closed footwear with non-slip bottom - No area rugs - Keep cords clear of walkways - Walk with staff assistance only [id number] Evaluation + Plan note* Assessment & Plan Note - Mg Evans DO - 09/21/2024 12:34 PM EDTAssociated Problem(s): Type 2 diabetes mellitus without complication [...] - check updated A1c and urine microalbumin [id number] History of Present illness Narrative* Mg EvansTracey, - 09/21/2024 10:40 AM EDT Assessment/Plan: Type 2 diabetes mellitus without complication [...] Parkinson's disease increases fall risk. Lives in long term. Staff tries to have aide assist with walking all the time; patient sometimes up without alerting staff. 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 [...] follow-up chronic conditions. She is accompanied by long term staff. Shaji is in good spirits today. [...] past medical history, past social history, past surgicalhistory and problem list. Review of Systems Objective: [...] for all services related to chronic condition(s). Mg Evans DO documented in this [id number] NoteAssessment/Plan: Type 2 diabetes mellitus without complication (HCC) [...] Parkinson's disease increases fall risk. Lives in long term. Staff tries to have aide assist with walking all the time; patient sometimes up without alerting staff. 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 [...] follow-up chronic conditions. She is accompanied by long term staff. Shaji is in good spirits today. [...] for all services related to chronic condition(s). Mg Evans, DO AUTHENTICATED BY MG EVANS, ON 09/21/2024 12:39:07[facility] 09-15-2024 Telephone encounter Note* Telephone Encounter - Consuelo Pierce LPN - 09/15/2024 12:18 PM EDT LAST OV 07/29/24. NEXT OV 09/21/24. [id number] Miscellaneous Notes* Telephone Encounter - Consuelo Pierce LPN - 09/15/2024 12:18 PM EDT LAST OV 07/29/24. NEXT OV 09/21/24. documented in this [id number] Miguel Contrerasadonay 64 y.o. 1960 female Reason for Consult: [...] Urine 07/19/2024 Cloudy (A) Clear Final Specific Gary 07/19/2024 1.028 (H) 1.005 - 1.025 Final [...] 4 /hpf Final Mucus, (more content not included)...[facility] [id number] History of Present illness Narrative* Marcos Barrera MD - 09/09/2024 2:31 PM EDT Shaji Esquivel 64 y.o. 1960 female Reason [...] mild edematous appearance of duodenum infusional loop inupper abdomen probably nonspecific to further evaluate the [...] Urine 07/19/2024 Cloudy (A) Clear Final Specific Gary 07/19/2024 1.028 (H) 1.005 - 1.025 Final [...] suggested by radiology we will get upper GIseries and small bowel follow-through and if indicated [...] answer Stress: Patient Unable To Answer (07/13/2024) [place] [facility] [employer] - Occupational Stress Questionnaire Feeling of Stress : Patient unable to answer Social Connections: Patient Unable To Answer (07/13/2024) Social Connection and Isolation Panel [NHANES] Frequency of Communication with Friends and Family: Patient unable to answer Frequency of Social Gatherings with Friends and Family: Patient unable to answer Attends Scientologist Services: Patient unable to answer Active Member [...] total) on top of tongue nightly . mklvfjag-uvu-bnnzkdv fumarate 15 mg iron Tab Take 1 [...] oil-petrolatum (PREPARATION H) Oint Insert 1 Application intothe rectum 4 (four) times a day . [...] daily as needed for meal intake less than50% . cephALEXin (KEFLEX) 250 MG capsule Take 1 (one) capsule (250 mg total) by mouth every 6 (six) hours. (Patient not taking: Reported on 09/09/2024 .) 20 capsule 0 diclofenac sodium 1% (VOLTAREN) 1 % Gel Apply 4 (four) g topically 4 (four) times a day Apply to Both Knees and right hip . (Patient not taking: Reported on 09/09/2024 .) No current facility-administered medications for this visit. documented in this [id number] History of Present illness Narrative* Mehran Buck, PT - 09/08/2024 10:15 AM EDT Images from the original note were not included. [facility] OUTPATIENT [facility]ATION DAILY TREATMENT NOTE/DISCHARGE Today's [...] Shaji mentioned that she had a birthday alliance party this past weekend. Otherwise, nothing new to report or updates to provide. Objective Treatments: Physical Therapy Exercise Log - 09/08/24 1011 OTHER Precautions/Contraindications Parkinson's disease, unspecified whether dyskinesia present, unspecified whether manifestations fluctuate (HCC). Frequent Falls. Notes Visit 8: 10:15-11:00 Vitals Eval Date: 08/02/2024. POC: 2x4 Therapeutic Exercise (74048) Intervention Access Code: [email or web address] URL: [email or web address] Date: 08/27/2024 Prepared by: Melissa Sena Exercises [...] 7 x weekly - 1 sets - 10reps - Heel Toe Raises with Unilateral Counter Support - 2 x daily - 7 x weekly - 1 sets - 10 reps - Standing Hip Abduction with Unilateral Counter Support - 2 x daily - 7 x weekly - 1 sets - 10 reps- Mini Squat with Counter Support - 2 x daily - 7 x weekly - 1 sets - 10 reps - Standing Hip Flexion with Counter Support - 2 x daily - 7 x weekly - 1 sets - 10 reps Parameters Nustep L1 x6 min to increase LE strength, reciprocal pattern, and functional endurance with min assistance needed to maintain pacing. Pt. requires CGA-Salima to avoid lateral leaning in chair, and Moderate encouragement to continue to pedal. Intervention Standing hip flex, abd, and marches completed 10xeach bilat with BUE support inside parallel bars to facilitate improved functional mobility and activity tolerance with pt requiring max verbal, tactile, and visual cues for completion. Neuro Re-Ed (85699) Intervention Discharge Summary/Goal Reassessment x45 mins Parameters The patient and caregiver were edcuated on the importance of continuing with performing her daily HEP provided at the beginning of therapy, and in taking daily walks, multiple times if possible to prevent contractures, pressure wounds/skin breakdown, and LE circulation, to prevent the patient from becoming WC bound. Shaji and the caregiver both verbalized understanding as this was stressed by the therapist multiple times throughout the session. Movement is medicine, and Shaji has the capacity to continue walking with CGA from 1-2 of her caregivers so that she can remain as mobile as pssoible with reducing the incidence of secondary impairments from occurring that will result from im mobilie and staying in a seated position throughout the day. Functional Activity (13820) Intervention Repeated STSs from chair with unilateral to no UE support 10x with emphasis on improved anterior weightshifting, sequencing, and eccentric control. Verbal and tactile cues provided for proper body mechanics and safety with transfers. Pt requiring CGA to occ Salima d/t retropulsion. Parameters Toilet transfer completed with CGA with pt requiring assistnce for jessy care and lower body clothing management. Verbal cues provided for proper hand placement and positioning to seat for safety. Additional Exercises Add more exercises? Yes Gait Training (45639) Intervention Pt ambulating for short distances (approx [...] will complete the 5 times sit to occupational medicine specialist 24 seconds or less without the use of her UE for support to indicate improved functional strength and mobility in 4 weeks (GOAl MET on 09/08/2024: 20.27s). Patient will perform the 3m BWT in no longer than 22 seconds and in 20 steps or less indicating herability to back up when navigating her home [...] indicated at this time, reconsult as needed. Mehran Buck, [place] State License, [id number] Cosigned by Roderick Maldonado PA-C at 09/14/2024 11:41 AM EDT documented in this [id number] History of Present illness Narrative* Consuelo Pierce LPN - 09/06/2024 2:02 PM EDT Documentation received for pt. Provider reviewed and signed. Faxed back [facility] and [facility]. documented in this [id number] History of Present illness Narrative* Tre Gandhi PTA - 09/02/2024 10:15 AM EDT Images from the original note were not included. [facility] DAILY TREATMENT NOTE Today's [...] Eval Date: 08/02/2024. POC: 2x4 Therapeutic Exercise (57597) Intervention Access Code: [email or web address] URL: [email or web address] Date: 08/27/2024 Prepared by: Melissa Sena Exercises [...] 7 x weekly - 1 sets - 10reps - Heel Toe Raises with Unilateral Counter Support - 2 x daily - 7 x weekly - 1 sets - 10 reps - Standing Hip Abduction with Unilateral Counter Support - 2 x daily - 7 x weekly - 1 sets - 10 reps- Mini Squat with Counter Support - 2 x daily - 7 x weekly - 1 sets - 10 reps - Standing Hip Flexion with Counter Support - 2 x daily - 7 x weekly - 1 sets - 10 reps Parameters Nustep L1 x6 min to increase LE strength, reciprocal pattern, and functional endurance with min assistance needed to maintain pacing. Pt. requires CGA-Salima to avoid lateral leaning in chair, and Moderate encouragement to continue to pedal. Intervention Standing hip flex 10xeach bilat with BUE support inside parallel bars with pt requiring max verbal, tactile, and visual cues for completion Parameters Standing hip abd 10xeach bilat with BUE support inside parallel bars with pt requiring max verbal, tactile, and visual cues for completion Intervention -- Neuro Re-Ed (14021) Intervention Fwd ambulation over hockey sticks inside parallel bars for 2 laps to facilitate improved step length and foot clearance as well as improved dynamic balance with decreased UE support. Pt completing first lap with BUE support with progression to no UE support on second trial with pt demo'g improved ability to complete without UE support. Functional Activity (99001) Intervention Pt completing transfers this date with CGA-Salima. Parameters Pt demos decreased activity tolerance with all activities requiring several seated rest breaks. Additional Exercises Add more exercises? Yes Gait Training (83861) Intervention Pt ambulating short distances throughout therapy [...] will complete the 5 times sit to occupational medicine specialist 24 seconds or less without the use of her UE for support to indicate improved functional strength and mobility in 4 weeks. Patient will perform the 3m BWT in no longer than 22 seconds and in 20 steps or less indicating herability to back up when navigating her home [...] for safety and improved mobility at home. Tre Gandhi PTA State License, [id number] Cosigned by Kody Hall PT at 09/02/2024 2:52 PM EDT documented in this [id number] History of Present illness Narrative* Yanet Daly OT - 08/13/2024 2:19 PM EST [facility] Occupational Therapy Screen Today's [...] dyskinesia present, unspecified whether manifestations fluctuate (HCC); S22.20XD(ICD-10-CM) - Closed fracture of sternum with routine healing, unspecified portion of sternum, subsequent encounte Follow-up with physician: 06/09/2025 (Dr. Ortiz - once annually) Patient accompanied by: Caregiver and nurse who work at the [facility]. History of Present Illness Date [...] hypertension, hyperlipidemia, diabetes, Parkinson's Disease, and subarachnoid h emorrhage, presented to [facility] ED from long term assisted living facility for evaluation of multiple falls that been progressively worsening over the past 2 weeks. No specific alleviating or aggravating factors. At the time of admission, per assistant nurse manager, patient fell from chair hit back [...] prevent aspiration which was [facility] and appears to still be doing well with it now according to her caregivers. At baseline, patient requires either max-dependent physical assistance for BADL performance. Patient has participatedin outpatient occupational therapy in the past with [...] with any questions at the above number. Yanet Daly OTR/L STATE LICENSE, [id number] documented in this [id number] Evaluation + Plan note* Assessment & Plan Note - Mg Evans, - 08/04/2024 2:34 AM EST Associated Problem(s): Recurrent falls Multiple falls recently may have been due to E. coli UTI, treated with Keflex, completed today. Concern for interaction between Sinemet and olanzapine. She has followed up with psychiatry and reducedolanzapine dose to 5 mg. Shuffling gait with Parkinson's disease increases fall risk. Lives in long term. Staff tries to have aide assist with walking all the time; patient sometimes up without alerting staff. 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 - She is beginning physical therapy - Wear closed footwear with non-slip bottom - No area rugs - Keep cords clear of walkways - Walk with staff assistance only [id number] Miscellaneous Notes* Assessment & Plan Note - Mg Evans DO - 08/04/2024 2:34 AM ESTAssociated Problem(s): Recurrent falls Multiple falls recently may have been due to E. coli UTI, treated with Keflex, completed today. Concern for interaction between Sinemet and olanzapine. She has followed up with psychiatry and reducedolanzapine dose to 5 mg. Shuffling gait with Parkinson's disease increases fall risk. Lives in long term. Staff tries to have aide assist with walking all the time; patient sometimes up without alerting staff. 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 - She is beginning physical therapy - Wear closed footwear with non-slip bottom - No area rugs - Keep cords clear of walkways - Walk with staff assistance only documented in this [id number] History of Present illness Narrative* Mehran Buck, PT - 08/02/2024 12:30 PM EST Images from the original note were not included. [facility] Physical Therapy Evaluation Today's [...] Caregiver and nurse who work at the [facility]. History of Present Illness Subjective History: The patient, Shaji, is a 63 y.o. Female presenting to outpatient neurological physical therapy at [facility] on 08/02/2024 s/p a recent 4 day hospital stay for a fall that resulted in hitting the back of her head on a chair. Per the patient's ED note from 07/19, Shaji has a past medical history of hypertension, hyperlipidemia, diabetes, Parkinson's Disease, and subarachnoid hemorrhage, presents to the emergency department from long term assisted living facility for evaluation of multiple falls that been progressively worsening over the past 2 weeks. No specific alleviating or aggravating factors. Today, per assistant nurse manager, patient fell from chair hit back [...] according her an office visit with Dr. Lamin DPM. 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 Over time, it has [...] prevent aspiration which was determined by a SCALE SHOOTER she used to see in the past, [...] redirected, she can often improve her ability toperform functional mobility. Previous Treatment for this condition: [...] Mobility Status: Home: no device Community: manual Bed Transfer: assisted (50% assistance now) Toilet [...] Social Support: Additional Social Support: Caregivers (RN). Scientologist, social, or cultural considerations to be made [...] fall in the last 12 months: Yes Scientologist, social, or cultural considerations to be made [...] Transfers: Sit to stand: Insufficient forward flexion, [place] on UE, Increased energy expenditure and Min A Stand to sit: Min A, [place] on UE, Insufficient forward flexion, Decreased eccentric control and Increased energy expenditure Stand/squat pivot: Insufficient forward flexion, [place] on UE and Increased energy expenditure Sitting [...] Treatments: Physical Therapy Exercise Log - 08/03/24 0819 OTHER Precautions/Contraindications Parkinson's disease, unspecified whether dyskinesia present, unspecified whether manifestations fluctuate (HCC). Frequent Falls. Notes Visit 1: 12:30-1:15 [facility] Eval Date: 08/02/2024. POC: 2x4 Neuro Re-Ed (44339) Intervention Initial evaluation w/ education only x45 mins PT Treatment Times Neuro Re-Ed Total Time 45 12:30-1:15 Direct Treatment Time 45 Total Treatment Time 45 Treatment Plan: Frequency of Visits: twice per week Duration: 4 weeks Interventions: Therapeutic Exercise (91093), Neuromuscular Re-Education (25295), Manual Therapy (22600), Therapeutic/ Functional Activities (72044), Gait Training (19470), Self Care (42793), and Canalith Repositioning Treatment (83613) Rehab Potential: good Physical Therapy Neuro Goals: [...] will complete the 5 times sit to occupational medicine specialist 24 seconds or less without the use of her UE for support to indicate improved functional strength and mobility in 4 weeks. Patient will perform the 3m BWT in no longer than 22 seconds and in 20 steps or less indicating herability to back up when navigating her home [...] of attendance for recovery, team concept, and diagnosis/pathophysiology/prognosis. Pt is in agreement with plan, and all questions at this time were answered. CPT Code 26302 Low 87217 Moderate 47981 High History 0 1-2 3+ Comorbidities: anxiety, [...] Clinical Impression: . Shaji Esquivel presents to [facility] outpatient neurological rehab services s/p experiencing multiple falls that led to multiple hospital visits. Upon assessment, patient demonstrates the following impairments: Tremor, bradykinesia, postural instability, axial and appendicular rigidity, increased fall risk, shuffled steps, reduced cognition, reduced strength, coordination, balance, pain, decreasedfunctional endurance, anxiety, reduced dual- tasking/divided attention, inflexibility/ROM of LE and contractures in her UE/hands. The documented impairments result in the following functional limitations: ADLs/IADLs, regular PA/exercise, functional mobility, walking, recreational activities, qualityof life, bending, sleep, carrying, and reaching. Potential [...] these services continue from 08/03/2024 to 09/28/2024. Mehran Buck, [place] State License, [id number] documented in this [id number] History of Present illness Narrative* Mg Evans, DO - 07/29/2024 11:20 AM EST Assessment/Plan: Recurrent falls Multiple falls recently may have been due to E. coli UTI, treated with Keflex, completed today. Concern for interaction between Sinemet and olanzapine. She has followed up with psychiatry and reducedolanzapine dose to 5 mg. Shuffling gait with Parkinson's disease increases fall risk. Lives in long term. Staff tries to have aide assist with walking all the time; patient sometimes up without alerting staff. 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 [...] past medical history, past social history, past surgicalhistory and problem list. Review of Systems Objective: [...] and potential side effects of the medications. Mg Evans DO documented in this [id number] NoteAssessment/Plan: Recurrent falls Multiple falls recently may have been due to E. coli UTI, treated with Keflex, completed today. Concern for interaction between Sinemet and olanzapine. She has followed up with psychiatry and reduced olanzapine dose to 5 mg. Shuffling gait with Parkinson's disease increases fall risk. Lives in long term. Staff tries to have aide assist with walking all the time; patient sometimes up without alerting staff. 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 [...] and potential side effects of the medications. Mg Evans DO AUTHENTICATED BY MG EVANS, ON 08/04/2024 02:35:57[facility] 07-27-2024 Faviola Kimble DPM Patient Name: Shaji Esquivel. . [...] answer Stress: Patient Unable To Answer (07/13/2024) [place] [facility] - Occupational Stress Questionnaire Feeling of Stress : Patient unable to answer Social Connections: Patient Unable To Answer (07/13/2024) Social Connection and Isolation Panel [NHANES] Frequency of Communication with Friends and Family: Patient unable to answer Frequency of Social Gatherings with Friends and Family: Patient unable to answer Attends Scientologist Services: Patient unable to answer Active Member [...] intact. Protective sensation is diminished using the [place] Piotr monofilament. Dermatologic: The right great toenail [...] meaning may be extrapolated by contextual derivation. Marci Kimble DPM, MS (more content not included)...[facility] 07-27-2024 History of Present illness Narrative* Marci Kimble DPM - 07/27/2024 11:02 AM EST Images from the original note were not included. Marci Kimble DPM Patient Name: Shaji Esquivel. . Date of : 1960, 63 y.o.. Gender: female. Subjective: Patient is a pleasant 63-year-old female who presents to clinic for painful right great toe nail. Patient's aide/nurse by her side stating that it is difficult for her to cut her right great toenail.She also admits to numbness and tingling to [...] answer Stress: Patient Unable To Answer (07/13/2024) [place] [facility] - Occupational Stress Questionnaire Feeling of Stress : Patient unable to answer Social Connections: Patient Unable To Answer (07/13/2024) Social Connection and Isolation Panel [NHANES] Frequency of Communication with Friends and Family: Patient unable to answer Frequency of Social Gatherings with Friends and Family: Patient unable to answer Attends Scientologist Services: Patient unable to answer Active Member [...] Sitting, BP Cuff Size: Adult) Pulse 86 Temp98.4 F (36.9 C) (Temporal) General Appearance: Alert, cooperative, no distress, appears stated age. Podiatric Exam Vascular: DP and PT pulses are palpable 2/4. Capillary refill time is less than 3 secs to distal digits. Skin temperature is warm to warm from proximal tibial tuberosity to distal digit. Neurological: Gross sensation is intact. Protective sensation is diminished using the [place]iotr monofilament. Dermatologic: The right great toenail [...] and length. Patient expressed pain relief following theprocedure. Patient qualifies for nail care due to at risk foot criteria based on Q9 Modifier secondary to diabetic peripheral neuropathy. All questions were answered to patient satisfaction. Patient understands to call with any questionsor concerns. Follow-up in 3 months for at risk foot care. This note was partially created using voice recognition software and is inherently subject to errors including those of syntax and sound-alike substitutions which may escape proofreading. In such instances, original meaning may be extrapolated by contextual derivation. Marci Kimble DPM, MS Podiatric Physician & Surgeon documented in this [id number] NoteS DISCHARGE SUMMARY Shaji Esquivel Admitted: 07/19/2024 Discharge Date: 07/25/24 PCP Handoff Recommended Outpatient Testing Follow-up with GI Follow up with psychiatry Results Pending At Discharge None Clinical Summary Shaji Esquivel is a 63 y.o. female patient of Mg Evans DO with history of Parkinson's disease, schizophrenia, HTN, HLD, GERD, NIDDM2, who presented to [facility] on 07/19/2024 with frequent falls. Frequent [...] Remeron Reached out to Dr. Sabillon at [facility] due to interaction with Sinemet [...] specific GI complaints Outpatient GI evaluation Continue PIG STICKER bowel regimen Sternal Fracture CT with evidence [...] MG disintegrating tablet Com (more content not included)...[facility]02-14-2025 NoteS PROGRESS NOTE Assessment and Plan Shaji Esquivel is a 63 y.o. female patient of Mg Evans DO with history of Parkinson's disease, schizophrenia, HTN, HLD, GERD, NIDDM2, who presented to [facility] on 07/19/2024 with frequent falls. Frequent [...] Remeron Reached out to Dr. Sabillon at [facility] due to interaction with Sinemet [...] hospitalization due to: awaiting acceptance back to long term Discharge location: return to long term Quality Measures DVT prophylaxis: IPCs Contreras catheter: [...] Radiology, Cardiology, Medications, and Transcriptions AUTHENTICATED BY RODERICK MALDONADO, ON 07/23/2024 11:54:59[facility] 07-22-2024 NoteS PROGRESS NOTE Assessment and Plan Shaji Esquivel is a 63 y.o. female patient of Mg Evans DO with history of Parkinson's disease, schizophrenia, HTN, HLD, GERD, NIDDM2, who presented to [facility] on 07/19/2024 with frequent falls. Frequent [...] Remeron Reached out to Dr. Sabillon at [facility] due to interaction with Sinemet [...] Radiology, Cardiology, Medications, and Transcriptions AUTHENTICATED BY RODERICK MALDONADO ON 07/22/2024 12:51:24[facility] 07-21-2024 NoteS PROGRESS NOTE Assessment and Plan Shaji Esquivel is a 63 y.o. female patient of Mg Evans DO with history of Parkinson's disease, schizophrenia, HTN, HLD, GERD, NIDDM2, who presented to [facility] on 07/19/2024 with frequent falls. Frequent Fall Parkinson's Disease Balance Disorder Continue Sinemet. Sinemet has known interaction with Zyprexa, which may worsen PD symptoms. Psychiatrist plans to switch her to Nuplazid as outpatient. See below. Fall precautions PT/OT Care management Follows with Dr. Ortiz for neurology Schizophrenia Continue Zyprexa and Remeron Reached out to Dr. Sabillon at [facility] due to interaction with Sinemet [...] therapy evals Discharge location: likely return to long term Quality Measures DVT prophylaxis: IPCs Contreras catheter: [...] Radiology, Cardiology, Medications, and Transcriptions AUTHENTICATED BY RODERICK MALDONADO, ON 07/21/2024 11:29:[address] [place] [address] 07-20-2024 [facility] PROGRESS NOTE Assessment and Plan Shaji Esquivel is a 63 y.o. female patient of Mg Evans DO with history of Parkinson's disease, schizophrenia, HTN, HLD, GERD, NIDDM2, who presented to [facility] on 07/19/2024 with frequent falls. Frequent Fall Parkinson's Disease Balance Disorder Continue Sinemet. Sinemet has known interaction with Zyprexa, which may worsen PD symptoms. Psychiatrist plans to switch her to Nuplazid as outpatient. See below. Fall precautions PT/OT Care management Follows with Dr. Ortiz for neurology Schizophrenia Continue Zyprexa and Remeron Reached out to Dr. Sabillon at [facility] due to interaction with Sinemet [...] therapy evals Discharge location: likely return to long term Quality Measures DVT prophylaxis: IPCs Contreras catheter: [...] Radiology, Cardiology, Medications, and Transcriptions AUTHENTICATED BY RODERICK MALDONADO, ON 07/20/2024 11:24:59[facility] 07-19-2024 NoteHMS HISTORY AND PHYSICAL -- [facility] Patient Name: Shaji Esquivel : 1960 MR #: [id number] Admit Date: 07/19/2024 Physicians: Mg Evans DO (Family); No ref. provider found (Referring) Shaji Esquivel is a 63 y.o. female patient of Mg Evans DO with history of Parkinson's disease, schizophrenia, HTN, HLD, GERD, NIDDM2, who presented to [facility] on 07/19/2024 with frequent falls. Frequent Fall Parkinson's Disease Balance Disorder Continue Sinemet. Sinemet has known interaction with Zyprexa, which may worsen PD symptoms. Psychiatrist plans to switch her to Nuplazid as outpatient. See below. Fall precautions PT/OT Care management Follows with Dr. Ortiz for neurology Schizophrenia Continue Zyprexa and Remeron Reached out to Dr. Sabillon at [facility] due to interaction with Sinemet [...] is a 63 y.o. female patient of Mg Evans DO with history of Parkinson's disease, schizophrenia, HTN, HLD, GERD, NIDDM2, who presented to [facility] on 07/19/2024 with frequent falls. Progressively worsening over the past 2 weeks. Nothing seems to make it better or worse. Assisted living is unable to take her back at this point. No fever, chills, cough, dysuria. Past Medical History Past Medical History: Diagnosis Date Diabetes (HCC) Disease of thyroid gland High cholesterol Hypertension SAH (subarachnoid hemorrhage) ([facility]) 12/04/2023 Past Surgical History Past Surgical History: [...] normal mood and affect AUTHENTICATED BY KIRILL CARNDALL, ON 07/19/2024 10:34:59[facility] 07-15-2024 Evaluation + Plan note* Assessment & Plan Note - Mg Evans DO - 07/15/2024 7:40 AM ESTAssociated Problem(s): Primary osteoarthritis involving multiple joints Voltaren gel 4 times daily to painful joints including bilateral hips and knees. [id number] Miscellaneous Notes* Assessment & Plan Note - Mg Evans DO - 07/15/2024 7:40 AM ESTAssociated Problem(s): Primary osteoarthritis involving multiple joints Voltaren gel 4 times daily to painful joints including bilateral hips and knees. * Assessment & Plan Note - Mg Evans DO - 07/15/2024 7:39 AM EST Associated Problem(s): Recurrent falls Mechanical fall 07/09/2024 when stepping up into a van. She suffered contusions to her right hip andright knee, but no fractures per x-rays in ER. Continue Voltaren gel to painful areas. Shuffling gait with Parkinson's disease increases fall risk. Lives in long term. Staff tries to have aide assist with walking all the time; patient sometimes up without alerting staff. 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 - Wear closed footwear with non-slip bottom - No area rugs - Keep cords clear of walkways - Walk with staff assistance documented in this [id number] Evaluation + Plan note* Assessment & Plan Note - Mg Evans DO - 07/15/2024 7:39 AM EST Associated Problem(s): Recurrent falls Mechanical fall 07/09/2024 when stepping up into a van. She suffered contusions to her right hip andright knee, but no fractures per x-rays in ER. Continue Voltaren gel to painful areas. Shuffling gait with Parkinson's disease increases fall risk. Lives in long term. Staff tries to have aide assist with walking all the time; patient sometimes up without alerting staff. 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 - Wear closed footwear with non-slip bottom - No area rugs - Keep cords clear of walkways - Walk with staff assistance [facility] [id number] NoteAssessment/Plan: Recurrent falls Mechanical fall 07/09/2024 when stepping up into a van. She suffered contusions to her right hip and right knee, but no fractures per x-rays in ER. Continue Voltaren gel to painful areas. Shuffling gait with Parkinson's disease increases fall risk. Lives in long term. Staff tries to have aide assist with walking all the time; patient sometimes up without alerting staff. 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 [...] acute visit for fall. Patient is a long term resident and presents with nursing staff. Patient [...] for all services related to chronic condition(s). Mg Evans DO AUTHENTICATED BY MG EVANS, ON 07/15/2024 07:40:58[facility] 07-13-2024 History of Present illness Narrative* Mg Evans DO - 07/13/2024 9:23 AM EST Assessment/Plan: Recurrent falls Mechanical fall 07/09/2024 when stepping up into a van. She suffered contusions to her right hip andright knee, but no fractures per x-rays in ER. Continue Voltaren gel to painful areas. Shuffling gait with Parkinson's disease increases fall risk. Lives in long term. Staff tries to have aide assist with walking all the time; patient sometimes up without alerting staff. 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 [...] acute visit for fall. Patient is a long term resident and presents with nursing staff. Patient [...] past medical history, past social history, past surgicalhistory and problem list. Review of Systems Objective: [...] for all services related to chronic condition(s). Mg Evans DO documented in this [id number] Emergency department Note* Ernie He DO - 07/09/2024 11:24 AM EST Images from the original note were not [...] and surgical history reviewed and as documented. Historyreviewed and as noted. past medical records reviewed. [...] systems and related systems to the presenting problemare either as stated in the HPI or [...] Alexys Moran 07/09/2024 12:15 PM Dictation workstation: [id number] XR hip right with pelvis when performed 2 or 3 views Final Result No acute fracture seen in the right hip. If there is persistent clinical concern CT can be performed for further evaluation MACRO: None Signed by: Alexys Moran 07/09/2024 12:14 PM Dictation workstation: [id number] Pt course which Intervention and treatment included [...] and discussed with the patient to supplement thosegenerated by the EMR. We also discussed medications [...] precautions and discharge instructions. The patient and/or family/friend/caregiverexpressed understanding 1. Fall, initial encounter 2. Contusion of right knee and lower leg, initial encounter HYDROcodone- acetaminophen ([place]) 5-325mg tablet diclofenac sodium (Voltaren) 1 % gel Knee Brace, Hinged 07/09/24 at 11:24 AM - Ernie He DO Internal & Emergency Medicine Ernie He DO Resident 07/09/24 1221 documented in this [facility] Work Phone: [phone] 938-993801-31-2025 Physician Emergency department Note* Ernie He DO - 07/09/2024 11:24 AM EST Images from the original note were not [...] and surgical history reviewed and as documented. Historyreviewed and as noted. past medical records reviewed. [...] systems and related systems to the presenting problemare either as stated in the HPI or [...] Alexys Moran 07/09/2024 12:15 PM Dictation workstation: [id number] XR hip right with pelvis when performed 2 or 3 views Final Result No acute fracture seen in the right hip. If there is persistent clinical concern CT can be performed for further evaluation MACRO: None Signed by: Alexys Moran 07/09/2024 12:14 PM Dictation workstation: [id number] Pt course which Intervention and treatment included [...] and discussed with the patient to supplement thosegenerated by the EMR. We also discussed medications [...] precautions and discharge instructions. The patient and/or family/friend/caregiverexpressed understanding 1. Fall, initial encounter 2. Contusion of right knee and lower leg, initial encounter HYDROcodone- acetaminophen ([place]) 5-325mg tablet diclofenac sodium (Voltaren) 1 % gel Knee Brace, Hinged 07/09/24 at 11:24 AM - Ernie He DO Internal & Emergency Medicine Ernie He DO Resident 07/09/24 1221 [facility] Work Phone: 1([phone]) 809-367101-20-2025 History of Present illness Narrative* Rafa Jacinto DO - 06/28/2024 12:40 PM EST Subjective Patient ID: Shaji Esquivel is a 63 y.o. female who presents for Follow-up (3 MONTH/Pt states she is not feeling well today ). HPI Patient is here today for 3 mo follow up with long term staff member. Pt has finished PT. Pt has still had falls, she is using wheelchair today,. She is leaning forward and keep reminding her to sit back, they are wondering if it is more of a behavior issue as she can go back and forth toher bedroom to get something without issue fine. [...] 2. Schizophrenia - sees Dr Sabillon at [facility] - on cogentin - on remeron - [...] manifestations [R26.89] Balance disorder documented in this [facility] Work Phone: [phone]) 237-599601-16-2025 Evaluation + Plan note* Assessment & Plan Note - Mg Evans DO - 06/24/2024 1:21 AM ESTAssociated Problem(s): Recurrent falls Shuffling gait with Parkinson's disease increases fall risk. Lives in long term. Staff tries to have aide assist with walking all the time; patient sometimes up without alerting staff. 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 - Wear closed footwear with non-slip bottom - No area rugs - Keep cords clear of walkways - Walk with staff assistance [id number] Miscellaneous Notes* Assessment & Plan Note - Mg Evans DO - 06/24/2024 1:21 AM ESTAssociated Problem(s): Recurrent falls Shuffling gait with Parkinson's disease increases fall risk. Lives in long term. Staff tries to have aide assist with walking all the time; patient sometimes up without alerting staff. 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 - Wear closed footwear with non-slip bottom - No area rugs - Keep cords clear of walkways - Walk with staff assistance * Assessment & Plan Note - Mg Evans DO - 06/24/2024 1:17 AM EST Associated Problem(s): Schizophrenia (HCC) Follows with psych, Dr. Estrada. On benztropine, mirtazapine, olanzapine. Nurse reports intermittent behaviors, but manageable. * Assessment & Plan Note - Mg Evans DO - 06/24/2024 1:11 AM EST Associated Problem(s): Parkinson's disease (HCC) Follows with neurologist - Dr. Ortiz. On carbidopa-levodopa 25-100, 2 tablets TID. With shuffling gait increasing fall risk. Walks without device at home, but with aide present. No concerns today. * Assessment & Plan Note - Mg Evans DO - 06/24/2024 12:33 AM EST Associated Problem(s): Type 2 diabetes mellitus without [...] months, will check A1c and urine microalbumin * Assessment & Plan Note - Mg Evans DO - 06/24/2024 12:25 AM EST Associated Problem(s): Hypertension Goal <140/90. Current therapy with amlodipine 2.5 mg daily. BP 134/83 today. Not on ACEi or ARB,though diabetic. Will discuss switching in the future for renal protection. - Check CMP q6 months documented in this [id number] Evaluation + Plan note* Assessment & Plan Note - Mg Evans DO - 06/24/2024 1:17 AM EST Associated Problem(s): Schizophrenia (HCC) Follows with psych, Dr. Estrada. On benztropine, mirtazapine, olanzapine. Nurse reports intermittent behaviors, but manageable. [id number] Evaluation + Plan note* Assessment & Plan Note - Mg Evans DO - 06/24/2024 1:11 AM ESTAssociated Problem(s): Parkinson's disease (HCC) Follows with neurologist - Dr. Ortiz. On carbidopa-levodopa 25-100, 2 tablets TID. With shuffling gait increasing fall risk. Walks without device at home, but with aide present. No concerns today. [id number] Evaluation + Plan note* Assessment & Plan Note - Mg Evans DO - 06/24/2024 12:33 AM ESTAssociated Problem(s): Type 2 diabetes mellitus without complication [...] months, will check A1c and urine microalbumin [place] [id number] Evaluation + Plan note* Assessment & Plan Note - Mg Evans DO - 06/24/2024 12:25 AM ESTAssociated Problem(s): Hypertension Goal <140/90. Current therapy with amlodipine 2.5 mg daily. BP 134/83 today. Not on ACEi or ARB,though diabetic. Will discuss switching in the future for renal protection. - Check CMP q6 months [place] [id number] NoteAssessment/Plan: Hypertension Goal <140/90. Current therapy with amlodipine [...] Parkinson's disease increases fall risk. Lives in long term. Staff tries to have aide assist with walking all the time; patient sometimes up without alerting staff. 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 [...] y.o. female Chief Complaint Patient presents with [facility] Need diabetic foot exam for shoes. Need tested for uti to make sure gone if she needs to pee Patient presents to establish care. Accompanied by her nurse and the nurse manager balance from her long term. Previous PCP Dr. Jacinto at . PMH: HTN, HLD, SAH, DM2, hypothyroidism, GERD, CKD, schizophrenia, Parkinson's. DM Taking metformin, empagliflozin, januvia, and glipizide Recreation Activities Coordinator - [facility] - Dr. Kimble Parkinson's On levodopa-carbidopa Neurologist - Dr. Ortiz Schizophrenia Psych -Dr. Estrada Technology Applications Teacher Dr. Kimble Symptoms started 2 weeks ago. [...] for all services related to chronic condition(s). Mg Evans DO AUTHENTICATED BY MG EVANS, ON 06/24/2024 01:29:15[facility] 06-23-2024 History of Present illness Narrative* Mg Evans DO - 06/23/2024 1:03 PM EST Assessment/Plan: Hypertension Goal <140/90. Current therapy with amlodipine 2.5 mg daily. BP 134/83 today. Not on ACEi or ARB,though diabetic. Will discuss switching in the future [...] Parkinson's disease increases fall risk. Lives in long term. Staff tries to have aide assist with walking all the time; patient sometimes up without alerting staff. 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 [...] Accompanied by her nurse and the nurse manager balance from her long term. Previous PCP Dr. Jacinto at . PMH: HTN, HLD, SAH, DM2, hypothyroidism, GERD, CKD, schizophrenia, Parkinson's. DM Taking metformin, empagliflozin, januvia, and glipizide Recreation Activities Coordinator - [facility] - Dr. Kimble Parkinson's On levodopa-carbidopa Neurologist - Dr. Ortiz Schizophrenia Psych -Dr. Estrada Technology Applications Teacher Dr. Kimble Symptoms started 2 weeks ago. Acting out, dysuria. Urine culture positive for E. Coli. Treated withcipro. Symptoms have resolved. The following portions of the patient's history were reviewed and updated as appropriate: allergies, current medications, past family history, past medical history, past social history, past surgicalhistory and problem list. Review of Systems Objective: [...] for all services related to chronic condition(s). Mg Evans DO documented in this [id number] Faviola Kimble DPM Patient Name: Shaji Esquivel. . [...] intact. Protective sensation is diminished using the [place] Piotr monofilament. Dermatologic: The right great toenail [...] meaning may be extrapolated by contextual derivation. Marci Kimble DPM, MS Podiatric Physician & Surgeon AUTHENTICATED BY MARCI KIMBLE, ON 04/27/2024 10:21:20[facility] 04-27-2024 History of Present illness Narrative* Marci Kimble DPM - 04/27/2024 10:18 AM EST Images from the original note were not included. Marci Kimble DPM Patient Name: Shaji Esquivel. . Date of : 1960, 63 y.o.. Gender: female. Subjective: Patient is a pleasant 63-year-old female who presents to clinic for painful right great toe nail. Patient's aide/nurse by her side stating that it is difficult for her to cut her right great toenail.She also admits to numbness and tingling to [...] Sitting, BP Cuff Size: Adult) Pulse 86 Temp98.2 F (36.8 C) (Infrared) General Appearance: Alert, cooperative, no distress, appears stated age. Podiatric Exam Vascular: DP and PT pulses are palpable 2/4. Capillary refill time is less than 3 secs to distal digits. Skin temperature is warm to warm from proximal tibial tuberosity to distal digit. Neurological: Gross sensation is intact. Protective sensation is diminished using the [place] Piotr monofilament. Dermatologic: The right great toenail [...] and length. Patient expressed pain relief following theprocedure. Patient qualifies for nail care due to at risk foot criteria based on Q9 Modifier secondary to diabetic peripheral neuropathy. All questions were answered to patient satisfaction. Patient understands to call with any questionsor concerns. Follow-up in 3 months for at risk foot care. This note was partially created using voice recognition software and is inherently subject to errors including those of syntax and sound-alike substitutions which may escape proofreading. In such instances, original meaning may be extrapolated by contextual derivation. Marci Kimble DPM, MS Podiatric Physician & Surgeon documented in this [id number] History of Present illness Narrative* Rafa Jacinto, DO - 03/29/2024 12:40 PM EDT Subjective Patient ID: Shaji Esquivel is a 63 y.o. female who presents for Follow-up (3 month) and Fall. Fall Patient is here today for 3 mo follow up Pt reports that she has generalized pain everywhere. Is here today with long term staff who state that she always complains [...] 2. [facility] - on remeron [...] dyskinesia or fluctuating manifestations [facility] Work Phone: 1(642) 171-673709-09-2024 Faviola Kimble DPM Patient Name: Shaji Esquivel. . [...] intact. Protective sensation is diminished using the [place] Piotr monofilament. Dermatologic: The right great toenail [...] meaning may be extrapolated by contextual derivation. Marci Kimble DPM, MS Podiatric Physician & Surgeon AUTHENTICATED BY MARCI KIMBLE, ON 02/16/2024 04:02:[address] [place] [address] Ambulatory 02-16-2024 History of Present illness Narrative* Marci Kimble DPM - 02/16/2024 4:00 AM EDT Images from the original note were not included. Marci Kimble DPM Patient Name: Shaji Esquivel. . Date of : 1960, 63 y.o.. Gender: female. Subjective: Patient is a pleasant 63-year-old female who presents to clinic for painful right great toe nail. Patient's aide/nurse by her side stating that it is difficult for her to cut her right great toenail.She also admits to numbness and tingling to her toes. No other pedal complaints at this time. Denies fevers, chills, nausea, vomiting, chest pain, shortness of breath, or any other constitutional symptoms. Past Medical History: Diagnosis Date Diabetes (HCC) Disease of thyroid gland High cholesterol Hypertension SAH (subarachnoid hemorrhage) ([facility]) 12/04/2023 Past Surgical History: Procedure Laterality Date [...] intact. Protective sensation is diminished using the [place] Piotr monofilament. Dermatologic: The right great toenail [...] and length. Patient expressed pain relief following theprocedure. Patient qualifies for nail care due to at risk foot criteria based on Q9 Modifier secondary to diabetic peripheral neuropathy. All questions were answered to patient satisfaction. Patient understands to call with any questionsor concerns. Follow-up in 3 months for at risk foot care. This note was partially created using voice recognition software and is inherently subject to errors including those of syntax and sound-alike substitutions which may escape proofreading. In such instances, original meaning may be extrapolated by contextual derivation. Marci Kimble DPM, MS Podiatric Physician & Surgeon documented in this [id number] ([address]) [facility] [address] [facility] [id number] Shaji Esquivel is a 63 y.o. female [...] MD AUTHENTICATED BY SACHIN MORALES, ON 02/03/2024 13:07:29[facility]08-27-2024 History of Present illness Narrative* Sachin Morales MD - 02/03/2024 1:06 PM EDT [facility] [address] (11) [facility] [address] [facility] [id number] Shaji Esquivel is a 63 y.o. [...] symptoms worsen or fail to improve. Sachin Moraels MD documented in this [id number] Hospital Discharge instructions * Discharge Instructions* Christiano Trujillo MD - 01/29/2024 8:46 AM EDT Ice MOTRIN FOR PAIN AND SWELLING DAVID WRAP TO KNEE DENTAL FOLLOW UP FOR INCISOR INJRY ORTHO FOLLOW UP FOR CHRONIC RIGHT ULNA SUBLUXATION * Attachments The following attachments cannot be sent through Care Everywhere. * Minor Contusion ED ([place]i) [facility] Phone: 1(966) 319-847808-22-2024 Emergency department Note* Christiano Trujillo MD - 01/29/2024 6:51 AM EDT Images from the original note were not [...] Comments: Patient is awake alert coherent cooperative [place] Coma Scale 15 in no acute discomfort [...] swelling. Decreased range of motion. Tenderness present. NoMCL, LCL or ACL tenderness. Skin: General: Skin [...] Pito Kaur 01/29/2024 8:37 AM Dictation workstation: [id number] XR forearm right 2 views Final Result No acute fracture. Persistent dorsal subluxation of the distal ulna in relation to the distal radius; correlate clinically. Signed by: Pito Kaur 01/29/2024 8:33 AM Dictation workstation: [id number] Procedures Medical Decision Making [place]ian diagnosis included forearm fracture forearm contusion right knee contusion right knee sprainright knee fracture ligamentous injury. X-ray studies of [...] right knee, initial encounter Subluxation of tooth Christiano Trujillo MD 01/29/24 0854 Christiano Trujillo MD 01/29/24 0855 documented in this [facility] Work Phone: 1(394) 470-443608-22-2024 Physician Emergency department Note* Christiano Trujillo MD - 01/29/2024 6:51 AM EDT Images from the original note were not [...] swelling. Decreased range of motion. Tenderness present. NoMCL, LCL or ACL tenderness. Skin: General: Skin [...] Pito Kaur 01/29/2024 8:37 AM Dictation workstation: [id number] XR forearm right 2 views Final Result No acute fracture. Persistent dorsal subluxation of the distal ulna in relation to the distal radius; correlate clinically. Signed by: Pito Kaur 01/29/2024 8:33 AM Dictation workstation: [id number] Procedures Medical Decision Making [place]ian diagnosis included forearm fracture forearm contusion right knee contusion right knee sprainright knee fracture ligamentous injury. X-ray studies of [...] right knee, initial encounter Subluxation of tooth Christiano Trujillo MD 01/29/24 0854 Christiano Trujillo MD 01/29/24 0855 [facility] Work Phone: 1(163) 298-118408-14-2024 Instructions* Patient Instructions* Huy Vasquez PA-C - 01/21/2024 12:48 PM [...] Call with any questions. documented in this [id number] NoteNeurosurgery Progress Note Assessment/Plan: 63 yo female status [...] Call with any questions. Huy Vasquez PA-C [facility] Neurosurgery Subjective: Patient is a 63-year-old lady with history of schizophrenia, Parkinson's disease, significant intellectual impairment who lives at a long term under the guardianship of the [facility]. History was obtained chiefly from her two [...] 5 Triceps 5 5 Deltoid 5 5 Division Engineer - 5 Hip Flexion 5 5 Knee Extension 5 5 Dorsiflexion 5 5 Unable to obtain reliable right retail merchandising coordinator, patient has chronic spasticity of right hand, she holds hand towel firmly in her right hand. No garcia AUTHENTICATED BY HUY VASQUEZ, ON 01/21/2024 12:48:50[facility] Amb[facility] 01-21-2024 History of Present illness Narrative* Huy Vasquez PA-C - 01/21/2024 12:17 PM EDT Neurosurgery Progress Note Assessment/Plan: 63 yo female [...] significant intellectual impairment who lives at a long term under the guardianship of the [facility]. History was obtained chiefly from her two caregivers who presented to the appointment. Shaji had a ground level fall impacting her right face 6/27/24 without loss of consciousness. She is not on any blood thinners, including aspirin. This resulted in small right temporal SAH, that was managed nonoperatively. She presents for follow up on this hemmorage. No new concerns reported by caregivers. Unfortunately patient contradicts herself when asking her questions regarding how she is doing. No focal neurological changes noted by caregivers. No complaintof headache given by patient to caregivers. Objective: [...] 5 Triceps 5 5 Deltoid 5 5 Division Engineer - 5 Hip Flexion 5 5 Knee Extension 5 5 Dorsiflexion 5 5 Unable to obtain reliable right retail merchandising coordinator, patient has chronic spasticity of right hand, she holds hand towel firmly in her right hand. No garcia documented in this [id number] Instructions* Patient Instructions* David Ortiz MD - 01/08/2024 9:16 AM EDT Continue carbidopa/levodopa 25/100 mg to 2 tablet 3 times a day. Monitor for any nausea, dizziness, confusion, sleep attacks, or behavioral changes. Keep well-hydrated, increase dietary fibers, and avoid sudden changes in position. Therapy and institute fall precautions. Iron supplement with vitamin C. We will see her for follow-up visit around 12 months. documented in this [id number] History of Present illness Narrative* David Ortiz MD - 01/08/2024 8:40 AM EDT Neurology Outpatient Consult [facility] [address] [place] [address] (phone)/[phone] (fax) Patient: Shaji Esquivel Date of : [...] has history of cognitive dysfunction, hallucination, and parkinsoni sm. She does have history of chronic schizophrenia [...] There seem to be some improvement in hergait and bradykinesia. Labs/Imaging/Ancillary test: Vitamin B12 is [...] problems. Her cognitive function has not changed overthe years. She has history of schizophrenia and occasionally has visual and auditory hallucinations. She has no anosmia but has constipation. She is unreliable and cannot contribute to any historicalinformation. She has no history of head injury, [...] downgoing on plantar stimulation. documented in this [id number] History of Present illness Narrative* Rafa Jacinto, DO - 12/29/2023 4:40 PM EDT Subjective Patient ID: Shaji Esquivel is [...] 2. [facility] - on remeron [...] or fluctuating manifestations (Multi) documented in this [facility] Work Phone: 1(704) 129-576807-17-2024 History of Present illness Narrative* Sachin Morales MD - 12/24/2023 10:06 AM EDT [facility] [address] (11) [facility] [address] [facility] [id number] Shaji Esquivel is a 63 y.o. [...] improve. Sachin Morales MD documented in this [id number] History of Present illness Narrative* Kenyetta Hilliard, ARSALAN-RN TRANSPORT - 12/17/2023 8:10 AM EDT Subjective Patient ID: Shaji Esquivel is a 63 y.o. female who presents for Hospital Follow-up (Family states sheis healing well and have no major concerns. Wanting to discuss possible helmet for future falls ). HPI Here today to follow up with ER visit post fall. Wrist is fractured and in a brace, ribs are fractured but healing Has follow ups with ortho, neuro, and neurosurgery. Caregivers report she is up moving around, eating and drinking per her normal. Hospital recommendedthat she follows up with PT/OT/ST and the [...] ordered -PT/OT referrals placed documented in this [facility] Work Phone: 1(210) 568-916207-09-2024 History of Present illness Narrative* Kirk Valdes CNP - 12/16/2023 1:55 PM EDT Trauma Follow Up Note Patient Name: Shaji Esquivel MR #: [id number] Chief Complaint: LA JOLLA: 63-year-old female with a history of a mechanical fall on concrete that occurred on 12/03 arrived [facility] [employer] [facility] [employer] for evaluation. She was found to have [...] by Ortho inpatient, nonoperative, follow-up with orthopedic surgeryoutpatient. Subarachnoid hemorrhage: Neuro intact, GCS 15, no AC/AP medications, neurosurgery evaluated patientand signed off. They would like her to follow-up in 4-[address] head ordered priorto the appointment. Right 5, 6 rib fractures: Pain controlled, on room air, no acute issues. documented in this [id number] NoteNeurosurgery Inpatient Follow-up 12/05/[address] [facility] Patient: Shaji Esquivel Date of : [...] sign off at this time. AUTHENTICATED BY CARLOS BENAVIDEZ, ON 12/05/2023 12:30:03[facility] 12-04-2023 NotePre-Procedure Physician Note for Procedures with Moderate or Deep Sedation Patient Name: Shaji Esquivel MR #: [id number] : 1960 Informed Consent process completed. I have reviewed the H&P and there are no changes. Heart, Lungs, and Airway assessment completed. Sedation Plan: Moderate Pre-Sedation Assessment ASA Classification: ASA 3: A patient with severe systemic disease. Mallampati Classification: Class II: Partial uvula and soft palate are visualized 12/04/2023 3:09 PM Joan Jaramillo M.D. Attending Physician [facility] 12/04/2023 Portions of this note may have been dictated utilizing voice recognition software. Unfortunately this leads to occasional typographical errors. If questions arise please do not hesitate to contact my office for clarification. AUTHENTICATED BY JONA JARAMILLO, ON 12/04/2023 15:09:56[facility]05-07-2024 History of Present illness Narrative* Marci Kimble DPM - 10/14/2023 8:25 AM EDT Images from the original note were not included. Marci Kimble DPM Patient Name: Shaji Esquivel. . [...] intact. Protective sensation is diminished using the [place] Piotr monofilament. Dermatologic: The right great toenail [...] and length. Patient expressed pain relief following theprocedure. Patient qualifies for nail care due to at risk foot criteria based on Q9 Modifier secondary to diabetic peripheral neuropathy. All questions were answered to patient satisfaction. Patient understands to call with any questionsor concerns. Follow-up in 3 months for at risk foot care. This note was partially created using voice recognition software and is inherently subject to errors including those of syntax and sound-alike substitutions which may escape proofreading. In such instances, original meaning may be extrapolated by contextual derivation. Marci Kimble DPM, MS Podiatric Physician & Surgeon documented in this [id number] History of Present illness Narrative* Marci Kimble DPM - 07/15/2023 9:16 AM EST Images from the original note were not included. NEW Patient Visit Marci Kimble DPM Patient Name: Shaji Esquivel. . [...] intact. Protective sensation is diminished using the [place] Piotr monofilament. Dermatologic: The right great toenail [...] and length. Patient expressed pain relief following theprocedure. Patient qualifies for nail care due to at risk foot criteria based on Q9 Modifier secondary to diabetic peripheral neuropathy. All questions were answered to patient satisfaction. Patient understands to call with any questionsor concerns. Follow-up in 3 months for at risk foot care. This note was partially created using voice recognition software and is inherently subject to errors including those of syntax and sound-alike substitutions which may escape proofreading. In such instances, original meaning may be extrapolated by contextual derivation. Marci Kimble DPM, MS Podiatric Physician & Surgeon documented in this [id number] Telephone encounter Note* Telephone Encounter - Mary Anne Espinoza MA - 06/25/2023 10:12 AM EST I called Fatuma at [phone]. She gave me the fax number of [phone]> Fax sent. She stated understanding. [id number] Miscellaneous Notes* Telephone Encounter - Mary Anne Espinoza MA - 06/25/2023 10:12 AM EST I called Fatuma at [phone]. She gave me the fax number of [phone]> Fax sent. She stated understanding. documented in this [id number] Instructions* Patient Instructions* David Ortiz MD - 06/23/2023 11:05 AM EST [...] visit around 6 months. documented in this [id number] History of Present illness Narrative* David Ortiz MD - 06/23/2023 10:48 AM EST Neurology Outpatient Consult [facility] [address] [place] [address] (phone)/[phone] (fax) Patient: Shaji Esquivel Date of : [...] Sitting, BP Cuff Size: Adult) Pulse 83 HnN554% Patient is awake and alert. Patient is [...] downgoing on plantar stimulation. documented in this [id number] History of Present illness Narrative* Rafa Jacinto, - 04/21/2023 1:00 PM EST Subjective Patient ID: Shaji Esquivel is a 62 y.o. 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 HPI Patient is a 62 y.o. long term patient who is here today to establish care. Patient has a pmhx of DMII, HTN, HLD, CKD, Hypothyroidism, Schizophrenia, Parkinsons Disease, GERD. She sees dr Arteaga at [facility] as well as Dr Ortiz for [...] complication, without long-term current use of insulin ([facility]/HCC) Schizophrenia - sees Dr Sabillon at [facility] - on cogentin - on remeron - [...] complication, without long-term current use of insulin ([facility]/HCC) [E03.9] Acquired hypothyroidism [N18.31] Stage 3a chronic kidney disease (CMS/HCC) [G20.A1] Parkinson's disease without dyskinesia or fluctuating manifestations [F20.9] Schizophrenia, unspecified type ([facility]) [facility]: 1(135) 295-754507-13-2023 Instructions* Patient Instructions* David Ortiz MD - 12/19/2022 11:50 AM EDT [...] visit around 6 months documented in this [id number] History of Present illness Narrative* David Ortiz MD - 12/19/2022 11:34 AM EDT Neurology Outpatient Consult [facility] [address] [place] [address] (phone)/[phone] (fax) Patient: Shaji Esquivel Date of : [...] stride length, and decreased en bloc turning. Adela hanson described improvement in posture but not much on her gait. We started her on Sinemet 25/100mg 3 times a day. There seem to [...] rate. He has difficulty rising out of thechair and ambulates with a shuffling gait and decreased arm swing with noticeable tremors on the left forearm. No myoclonus or other abnormal involuntary movements. Deep tendon reflexes are symmetrical including ankle jerks. No ankle clonus. Toes are downgoing on plantar stimulation. Gait is shuffling with en bloc turning. No retropulsion or postural instability. documented in this [id number] History of Present illness Narrative* Patient confirmed name and date of this session. All standing with gait belt. * Ms. Esquivel is progressing well through their POC addressing balance impairments leading to falls. Pthas attended PT sessions since 11/25/22. She demos [...] to contact with any problems, questions, or a djustments. This will serve as the patient s discharge if they elect not to resume skilled PT within 30 days. [facility] Work Phone: 1(361) 624-754603-01-2023 History of Present illness Narrative* Patient confirmed name and date of this session. Gait belt throughout. * Pt with significant improvements in ROM with all activities especially august amb, side steps, HS curls. SBA-CGA throughout which is also a progression. Mod visual, tactile, verbal cues to perform exercises in correct plane. Less rest breaks required compared to previous sessions. [facility] Work Phone: 1([phone]) 559-804502-23-2023 Instructions* Patient Instructions* David Ortiz MD - 08/01/2022 10:47 AM EST [...] visit around 6 months. documented in this [id number] History of Present illness Narrative* David Ortiz MD - 08/01/2022 10:32 AM EST Neurology Outpatient Consult [facility] [address] [place] [address] (phone)/[phone] (fax) Patient: Shaji Esquivel Date of : [...] parkinsonism. She does have history of chronic s chizophrenia which might also cause hallucination. According to [...] or bowel problems. Her cognitive function has notchanged over the years. She has history of schizophrenia and occasionally has hallucinations. She is unreliable and cannot contribute to any historical information. She has no history of head injury,TIA or stroke. She has been on chronic [...] Sitting, BP Cuff Size: Adult) Pulse 80 Resp16 Ht 5' 4 Wt 60.3 kg (133 lb) SpO2 95% BMI 22.83 kg/m Patient is awake and alert. Neck is supple. No carotid bruit. Heart rate and rhythm is regular. Pulses are 2+ symmetrically. Patient is oriented to person and her name but disoriented to month, season, and year. She has poorcalculation, unable to spell, poor concentration and abstraction. [...] rate. He has difficulty rising out of thechair and ambulates with a shuffling gait and decreased arm swing with noticeable tremors on the left forearm. No myoclonus or other abnormal involuntary movements. Deep tendon reflexes are symmetrical including ankle jerks. No ankle clonus. Toes are downgoing on plantar stimulation. Gait is shuffling with en bloc turning. No retropulsion or postural instability. [facility] Diagnosis Other symptoms and signs involving the nervous system- Primary Abnormal brain MRI Nonspecific (abnormal) findings on radiological and other examination of skull and head [facility]* Diagnosis NPH (normal pressure hydrocephalus) (HCC)- Primary Idiopathic normal pressure hydrocephalus (INPH) Abnormal coagulation profile [facility] Diagnosis NPH (normal pressure hydrocephalus) (HCC)- [...] complication, without long-term current use of insulin ([facility]) Acquired hypothyroidism Unspecified hypothyroidism Stage 3a chronic kidney disease ([facility]) Parkinson's disease without dyskinesia or fluctuating manifestations Schizophrenia, unspecified type ([facility]) documented in this encounter [facility] Work Phone: Evaluation note* Diagnosis Parkinson disease Paralysis agitans [facility] Diagnosis Parkinson disease Paralysis agitans [facility]* Diagnosis Encounter for screening mammogram for malignant neoplasm of breast documented in this encounter [facility] Work Phone: Evaluation note* Diagnosis Encounter for screening mammogram for malignant neoplasm of breast documented in this encounter [facility] Work Phone: Evaluation note* Diagnosis Comprehensive [...] or fluctuating manifestations documented in this encounter [facility] Work Phone: Evaluation note* Diagnosis Onychomycosis- [...] wrist, initial encounter documented in this encounter [facility] Work Phone: Evaluation note* Diagnosis Parkinson disease (HCC) Paralysis agitans [facility]* Diagnosis Parkinson's disease with fluctuating manifestations, unspecified whether dyskinesia present (Multi)- Primary Subarachnoid hemorrhage (Multi) Subarachnoid hemorrhage documented in this encounter [facility] Work Phone: Evaluation note* Diagnosis Primary [...] fluctuating manifestations (Multi) documented in this encounter [facility] Work Phone: Evaluation note* Diagnosis Subluxation of distal end of right ulna, subsequent encounter- Primary Contusion of right forearm, initial encounter Contusion of right knee, initial encounter Subluxation of tooth Other specified disorders of the teeth and supporting structures documented in this encounter [facility] Work Phone: Evaluation note* Diagnosis Other closed fracture of distal end of right ulna, initial encounter- Primary documented in this encounter [facility] Work Phone: Evaluation note* Diagnosis Primary hypertension- Primary Unspecified essential hypertension Type 2 diabetes mellitus without complication, without long-term current use of insulin (HCC) Parkinson's disease, unspecified whether dyskinesia present, unspecified whether manifestations fluctuate (HCC) Schizophrenia, unspecified type (HCC) Recurrent falls [facility]* Diagnosis Acquired hypothyroidism- Primary Unspecified hypothyroidism Primary hypertension Unspecified essential hypertension Gastroesophageal reflux disease without esophagitis Esophageal reflux Schizophrenia, unspecified type Parkinson's disease without dyskinesia or fluctuating manifestations Balance disorder documented in this encounter [facility] Work Phone: Evaluation note* Diagnosis Fall, initial encounter- Primary Contusion of right knee and lower leg, initial encounter documented in this encounter [facility] Work Phone: Evaluation note* Diagnosis Primary hypertension- Primary Unspecified essential hypertension Type 2 diabetes mellitus without complication, without long-term current use of insulin (HCC) Parkinson's disease, unspecified whether dyskinesia present, unspecified whether manifestations fluctuate (HCC) Schizophrenia, unspecified type (HCC) Recurrent falls Recurrent falls- Primary Primary osteoarthritis involving multiple joints [facility]* Diagnosis Primary hypertension- Primary Unspecified essential [...] of right foot [facility]* Diagnosis Primary hypertension- Primary Unspecified essential [...] falls Multiple falls [facility] Diagnosis Primary hypertension- Primary Unspecified [...] involving multiple joints documented in this encounter [facility] note* Diagnosis Primary hypertension- Primary Unspecified essential hypertension Type 2 diabetes mellitus without complication, without long-term current use of insulin (HCC) Parkinson's disease, unspecified whether dyskinesia present, unspecified whether manifestations fluctuate (HCC) Schizophrenia, unspecified type (HCC) Recurrent falls Recurrent falls- Primary Primary osteoarthritis involving multiple joints Recurrent falls- Primary documented in this encounter [facility] note* Diagnosis Primary hypertension- Primary Unspecified essential hypertension Type 2 diabetes mellitus without complication, without long-term current use of insulin (HCC) Parkinson's disease, unspecified whether dyskinesia present, unspecified whether manifestations fluctuate (HCC) Schizophrenia, unspecified type (HCC) Recurrent falls Recurrent falls- Primary Primary osteoarthritis involving multiple joints Recurrent falls- Primary Frequent falls- Primary Parkinson's disease (HCC) Paralysis agitans [facility] Diagnosis Primary hypertension- Primary Unspecified [...] joints Frequent falls [facility]* [...] Primary Frequent falls documented in this encounter [facility] note* Diagnosis Primary hypertension- Primary Unspecified [...] joints Frequent falls documented in this encounter [facility] note* Diagnosis Primary hypertension- Primary Unspecified [...] joints Frequent falls documented in this encounter [facility] note* Diagnosis Primary hypertension- Primary Unspecified [...] joints Frequent falls documented in this encounter [facility] note* Diagnosis Primary hypertension- Primary Unspecified [...] joints Frequent falls [facility] Diagnosis Primary hypertension- Primary Unspecified [...] area, including retroperitoneum [facility] Diagnosis Primary hypertension- Primary Unspecified [...] area, including retroperitoneum [facility] Diagnosis Primary hypertension- Primary Unspecified [...] influencing health status [facility] Diagnosis Primary hypertension- Primary Unspecified [...] area, including retroperitoneum documented in this encounter [facility] note* Diagnosis Primary hypertension- Primary Unspecified [...] insulin (HCC)- Primary documented in this encounter [facility] note* Diagnosis Primary hypertension- Primary Unspecified [...] of right foot [facility] Diagnosis Primary hypertension- Primary Unspecified essential [...] esophagitis present- Primary [facility]* Diagnosis Onset Date Resolution Status Admit Date 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 Work Phone: Evaluation note* Diagnosis Primary [...] long-term current use of insulin (HCC)- Primary Mixed hyperlipidemia [facility]* Diagnosis Primary hypertension- Primary Unspecified essential [...] long-term current use of insulin (HCC)- Primary Mixed hyperlipidemia Type 2 diabetes mellitus without complication, without long-term current use of insulin (HCC)- Primary Encounter for screening mammogram for malignant neoplasm of breast Stage 3a chronic kidney disease (HCC) Constipation, unspecified constipation type Aggression Explosive personality disorder [facility]* Diagnosis Primary hypertension- Primary Unspecified [...] long-term current use of insulin (HCC)- Primary Mixed hyperlipidemia Type 2 diabetes mellitus without complication, without long-term current use of insulin (HCC)- Primary Encounter for screening mammogram for malignant neoplasm of breast Stage 3a chronic kidney disease (HCC) Constipation, unspecified constipation type Aggression Explosive personality disorder Parkinson disease (HCC) Paralysis agitans [facility]* Ms. Esquivel arrives [...] when considering positive factors including support in long term with barriers such as understanding of exercises. The pt verbalized understanding and agreement to goals and POC. Thank you for this referral and please call [phone] with any questions or concerns. * Clinical Presentation: Stable and/or uncomplicated characteristics. * Level of Complexity: low * Problem List: activity limitations, ADLs/IADLs/self care skills, balance, decreased functional level, decreased knowledge of HEP, fall risk, flexibility, gait/locomotion, range of motion/joint mobility, strength and transfers. [facility] Work Phone: History of Present illness Narrative* Patient confirmed name and date of this session. * Pt tends to turn with side steps to L indicating potentially more weakness of L hip abductors vs R.Max verbal and visual cues for all activities. She demos very short steps bkwd despite cues. She does c/o B knee pain throughout session. [facility] Work Phone: History of Present illness [...] challenge balance for reduced risk of falls. [facility] Work [facility]: History of Present illness [...] UEs with STS d/t weakness of LEs. [facility] Work Phone: History of Present illness Narrative* Patient confirmed name and date of this session. Gait belt throughout. * Pt requires max VCs and encouragement throughout d/t fear of falling. Able to perform multiple activities outside // bars to further challenge balance. 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 Improved compliance with w/c mobilization activities. [facility] Work Phone: History of Present illness [...] falling and weakness of glute med R>L. [facility] Work Phone: History of Present illness Narrative* Kenyetta Hilliard APRN-MART - 02/05/2024 10:50 AM EDT Subjective Patient [...] needed -Ice 2for swelling [facility] Discharge instructions* Attachments The following attachments cannot be sent through Care Everywhere. * Minor Contusion ED ([place]) * Taking care of bruises ([place]) * Preventing Falls ED ([place]) [facility]: Reason for referral (narrative)* Consultation (Routine) - Authorized Specialty Diagnoses / Procedures Referred By Jess ayon Referred To Contact Primary Care Procedures Follow Up In Primary Care - Established Rafa Jacinto DO [address] [facility] [place] [address] Referral ID Status Reason Start Date Expiration Date V isits Requested Visits Authorized [id number] Authorized 04/21/2023 04/20/2024 1 1 * Imaging (Routine) - Authorized Specialty Diagnoses / Procedures Referred By Contac t Referred To Contact Radiology Diagnoses Encounter for screening mammogram for malignant neoplasm of breast Procedures BI mammo bilateral screening tomosynthesis Rafa Jacinto DO [address] [facility] [place] [address] Referral ID Status Reason Start Date Expiration Date Visits Requested Visits Authorized [id number] Authorized Perform Procedure 3 04/20/2024 1 1 [facility] Work Phone: Reason for referral (narrative)* Consultation (Routine) - Pending Review Specialty Diagnoses / Procedures Referred By Contac t Referred To Contact Speech Pathology / Speech Therapy Diagnoses Parkinson's disease with fluctuating manifestations, unspecified whether dyskinesia present (Multi) Kenyetta Hilliard APRN-MART [address] [facility] Physician [place] [id number] Referral ID Status Reason Start Date Expiration Date Visits Requested Visits Authorized [id number] Pending Review Specialty Services Required 12/17/2023 12/16/2024 1 1 * Consultation (Routine) - Pending Review Specialty Diagnoses / Procedures Referred By Contac t Referred To Contact Occupational Therapy Diagnoses Parkinson's disease with fluctuating manifestations, unspecified whether dyskinesia present (Multi) Kenyetta Hilliard APRN-MART [address] [facility] [place] [address] Referral ID Status Reason Start Date Expiration Date Visits Requested Visits Authorized [id number] Pending Review Specialty Services Required 12/17/2023 12/16/2024 1 1 * Consultation (Routine) - Pending Review Specialty Diagnoses / Procedures Referred By Contac t Referred To Contact Physical Therapy Diagnoses Parkinson's disease with fluctuating manifestations, unspecified whether dyskinesia present (Multi) Kenyetta Hilliard, PAPER CLEANER-RN TRANSPORT [address] [facility] [place] [address] Referral ID Status Reason Start Date Expiration Date Visits Requested Visits Authorized [id number] Pending Review Specialty Services Required 12/17/2023 12/16/2024 1 1 [facility] Work Phone: Reason for referral (narrative)No reason for referral information [facility]: Reason for visit Narrative* Initial Evaluation . Dx: R29.6. * [facility] Work Phone: Reason for visit Narrative* Initial Evaluation . Dx: R29.6. * [facility] Work Phone: Refnah for visit Narrative* Initial Evaluation . Dx: R29.6. * [facility] Work Phone: Reason for visit Narrative* Initial Evaluation . Dx: R29.6. * [facility] Work Phone: Reason for visit Narrative* Initial Evaluation . Dx: R29.6. * [facility] Work Phone: Reason for visit Narrative* Initial Evaluation . Dx: R29.6. * [facility] Work Phone: Rerwqf for visit Narrative* Initial Evaluation . Dx: R29.6. * [facility] Work Phone: Reason for visit Narrative* Neuro Rehab PT (Routine) - Pending Review Specialty Diagnoses / Procedures Referred By Jess ayon Referred To Contact Rehabilitation Diagnoses Closed fracture of sternum with routine healing, unspecified portion of sternum, subsequent encounter Multiple falls Recurrent falls Parkinson's disease, unspecified whether dyskinesia present, unspecified whether manifestations fluctuate (HCC) Primary osteoarthritis involving multiple joints Roderick Maldonado PA-C [address] [place] [address] Phone: tel: fax: [facility] [address] [place] [address] Phone: tel: fax: Referral ID Status Reason Start Date Expiration Date Visits Requested Visits Authorized [id number] Pending Review Patient Preference 07/23/2024 07/23/2025 8 199 [facility] for visit Narrative* Evaluate and Treat (Routine) - Closed Specialty Diagnoses / Procedures Referred By Jess ayon Referred To Contact Gastroenterology Diagnoses Abnormal CT of the abdomen Mg Evans DO [address] [address] Phone: tel: fax: [facility] [address] [place] [address] Phone: tel:[phone] fax: Referral ID Status Reason Start Date Expiration Date Visits Re quested Visits Authorized [id number] Closed 07/26/2024 07/26/2025 1 1 [facility] Summary Purpose Family History No Family [...] FoundNo Family History Records Found Advance Directives No Advanced Directives Records FoundDocuments on File Type Date Recorded Patient Oyster Sorter Expl anation Advance Directives and Livin g Will 11/03/2018 10:30 AM Documents on File Type Date Recorded Patient Oyster Sorter Expl anation Advance Directives and Livin g Will 11/03/2018 10:30 AM Documents on File Type Date Recorded Patient Oyster Sorter Expl anation Guardianship Papers 08/01/2022 Documents on File Type Date Recorded Patient Oyster Sorter Expl anation Living Will 05/24/2011 Documents on File Type Date Recorded Patient Oyster Sorter Expl anation Guardianship Papers 08/01/2022 Date Activated Date Inactivated Comments 12/04/2023 4:46 PM 12/05/2023 6:04 PM Date Activated Date Inactivated Comments 12/04/2023 4:46 PM 12/05/2023 6:04 PM Documents on File Type Date Recorded Patient Oyster Sorter Expl anation Living Will 05/24/2011 Documents on File Type Date Recorded Patient Oyster Sorter Expl anation Advance Directives and Living Will 05/24/2011 Living Will 05/24/2011 Documents on File Type Date Recorded Patient Oyster Sorter Expl anation Guardianship Papers 06/01/2024 Apsi Other 2-GUARDIANSHIP PAPERWORK Guardianship Papers 08/01/2022 Documents on File Type Date Recorded Patient Oyster Sorter Expl anation Guardianship Papers 07/23/2024 3:21 PM Guardianship Papers 07/19/2024 Guardianship Papers 06/01/2024 Apsi Other 2-GUARDIANSHIP PAPERWORK Guardianship Papers 08/01/2022 Date Activated Date Inactivated Comments 07/19/2024 9:59 AM 07/23/2024 5:11 PM Date Activated Date Inactivated Comments 12/04/2023 4:46 PM 12/05/2023 6:04 PM Documents on File Type Date Recorded Patient Oyster Sorter Expl anation Guardianship Papers 07/23/2024 3:21 PM Guardianship Papers 07/19/2024 Guardianship Papers 06/01/2024 Apsi Other 2-GUARDIANSHIP PAPERWORK Guardianship Papers 08/01/2022 Date Activated Date Inactivated Comments 07/19/2024 9:59 AM 07/23/2024 5:11 PM Date Activated Date Inactivated Comments 12/04/2023 4:46 PM 12/05/2023 6:04 PM Documents on File Type Date Recorded Patient Oyster Sorter Expl anation Guardianship Papers 07/23/2024 3:21 PM Guardianship Papers 07/30/2024 Guardianship Papers 07/19/2024 Guardianship Papers 06/01/2024 [facility] -GUARDIANSHIP PAPERWORK Guardianship Papers 08/01/2022 Documents on File Type Date Recorded Patient Oyster Sorter Expl anation Guardianship Papers 07/23/2024 3:21 PM Guardianship Papers 07/30/2024 Guardianship Papers 07/19/2024 Guardianship Papers 06/01/2024 [facility] -GUARDIANSHIP P[employer]ERWORK Guardianship Papers 08/01/2022 Advance Directive Response Recorded Date/ Time Do you have a Healthcare Power of Manager Change? No December 19, 2024 12:29am Reason for Referral Status Reason Specialty Diagnoses / Procedures Referred By Contact Referred To Contact Pending Review Radiology Diagnoses Dysphagia, unspecified type Procedures XR Upper GI Series Antwan Maharaj MD [address] [place] [address] Specialty Diagnoses / Procedures Referred By Contac t Referred To Contact Neurology Diagnoses Other symptoms and signs involving the nervous system Abnormal brain MRI Antwan Maharaj MD [address] [place] [address] David Ortiz MD [address] [address] Referral ID Status Reason Start Date Expiration Date V isits Requested Visits Authorized [id number] Authorized 11/15/2021 11/15/2022 1 1 Specialty Diagnoses / Procedures Referred By Contac t Referred To Contact Radiology Diagnoses SAH (subarachnoid hemorrhage) (HCC) Procedures CT Head Or Brain Without Contrast Huy Vasquez PA-C [address] [facility] [address] [place] [address] Referral ID Status Reason Start Date Expiration Date V isits Requested Visits Authorized [id number] New Request 01/05/2024 01/04/2025 1 1 Assessments Diagnosis Dysphagia, unspecified type Diagnosis Fracture of unspecified phalanx of left little finger, initial encounter for closed fracture Diagnosis Fracture of unspecified phalanx of left little finger, initial encounter for closed fracture History of Present Illness * Ti Rhodes MD - 04/27/2019 6:30 PM EST Dictation on: 04/27/2019 6:32 PM by: TI RHODES [[id number]] documented in this encounter* Ti Rhodes MD [...] tolerated and p.r.n. documented in this encounter Chief Complaint and Reason for Visit Chief Complaint Admit Date STROKELIKE SYMPTOMS December 18, 2024 10:1 4pm Reason for Visit Admit Date Dementia due to Parkinson's disease December 18, 2024 10:14pm Facial droop December 18, 2024 10:1 4pm Slurred speech December 18, 2024 10:1 4pm Chief Complaint Admit Date STROKELIKE SYMPTOMS December 18, 2024 10:1 4pm STROKELIKE SYMPTOMS December 19, 2024 3:49 am STROKELIKE SYMPTOMS December 19, 2024 12:3 8pm STROKELIKE SYMPTOMS December 20, 2024 8:28 am STROKELIKE SYMPTOMS December 21, 2024 8:20 am Reason for Visit Admit Date Dementia due to Parkinson's disease December 19, 2024 12:38pm Facial droop December 19, 2024 12:3 8pm Slurred speech December 19, 2024 12:3 8pm Stroke-like symptoms December 19, 2024 12: 38pm Additional Source Comments INFORMATION SOURCE (unrecogn ized section and content) DATE CREATED AUTHOR 12/26/2017 [facility] DATE CREATED AUTHOR AUTHOR'S ORGANIZ ATION 02/26/2019 [facility] DATE CREATED AUTHOR AUTHOR'S ORGANIZ ATION 04/24/2022 DATE CREATED AUTHOR AUTHOR'S ORGANIZ ATION 02/01/2023 [facility] DATE CREATED AUTHOR AUTHOR'S ORGANIZ ATION 02/05/2023 [employer] DATE CREATED AUTHOR AUTHOR'S ORGANIZ ATION 02/01/2024 [facility] DATE CREATED AUTHOR AUTHOR'S ORGANIZ ATION 02/05/2024 [facility] DATE CREATED AUTHOR AUTHOR'S ORGANIZ ATION 06/29/2024 [facility] DATE CREATED AUTHOR AUTHOR'S ORGANIZ ATION 07/19/2024 [facility] DATE CREATED AUTHOR AUTHOR'S ORGANIZ ATION 10/16/2024 [facility] DATE CREATED AUTHOR AUTHOR'S ORGANIZ ATION 12/27/2024 [facility] DATE CREATED AUTHOR AUTHOR'S ORGANIZ ATION 01/01/2025 [facility] DATE CREATED AUTHOR AUTHOR'S ORGANIZ ATION 01/09/2025 [facility] DATE CREATED AUTHOR AUTHOR'S ORGANIZ ATION 01/13/2025 [facility] DATE CREATED AUTHOR AUTHOR'S ORGANIZ ATION 01/14/2025 [facility] Reason for Visit (unrecogniz ed section and content) Status Reason Specialty Diagnoses / Procedures Referred By Contact Referred To Contact Pending Review Radiology Diagnoses Dysphagia, unspecified type Procedures XR Upper GI Series Antwan Maharaj MD [address] [place] [id number] Reason Comments Injury Pain Status Reason Specialty Diagnoses / Procedures Referred By Contact Referred To Contact Closed Sports Medicine Diagnoses Fracture of unspecified phalanx of left little finger, initial encounter for closed fracture Antwan Maharaj MD [address] [place] [address] Ti Rhodes MD [address] [place] [address] Reason Comments Follow-up Reason Comments Follow-up Patients guardian is with her today, she states that her functional abilities have declined some since last visit. She is becoming more incontinent. Had 7 falls in 11 days. Reason Comments Parkinson's Disease Anne, Nurse with pa tient. Per nurse, Stumbling and falls. Not sure if attention seeking behavior or Parkinson's. Started physical therapy once a week. 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 Reason Onset Date Comments Medication Refill 06/24/2023 Specialty Diagnoses / Procedures Referred By Jess ayon Referred To Contact Radiology Diagnoses Encounter for screening mammogram for malignant neoplasm of breast Procedures BI mammo bilateral screening BI mammo bilateral screening tomosynthesis Rafa Jacinto DO [address] [facility] [place] [address] Referral ID Status Reason Start Date Expiration Date Visits Requested Visits Authorized [id number] Pending Review Perform Procedure 04/20/2024 1 1 Reason Comments Nail Care Patient presents for diabetic foot care. Last A1C 7.2 Patient has toenail on tight great toe that is causing her pain Reason Comments Nail Care Diabetic nail care. Last A1C 7.2 Reason Comments Follow-up Fall Reason Comments Parkinson's Disease Caregivers present. Caregivers report recent fall (1.5 month ago). She was in [place] and transferred to [facility]. Pt utilizing assistance with gait. Reason Comments [...] Care - Established Rafa Jacinto DO [address] [facility] Physician [place] [id number] Referral ID Status Reason Start Date Expiration Date V isits Requested Visits Authorized [id number] Authorized 04/21/2023 04/20/2024 1 1 Reason Comments [...] fluctuate (HCC) Primary osteoarthritis involving multiple joints Roderick Maldonado PA-C [address] [place] [address] Phone: tel: fax: [facility] [address] [place] [phone] Phone: tel: fax: Referral ID Status Reason Start Date Expiration Date Visits Requested Visits Authorized [id number] Authorized Patient Preference 07/23/2024 07/23/2025 1 199 Reason Comments Follow-up Staying in wheel kourtney ir very limited walking. Reason Comments Occupational Therapy Neuro Reason Comments Physical Therapy Specialty Diagnoses / Procedures Referred By Jess ayon Referred To Contact Rehabilitation Diagnoses Closed fracture of sternum with routine healing, unspecified portion of sternum, subsequent encounter Multiple falls Recurrent falls Parkinson's disease, unspecified whether dyskinesia present, unspecified whether manifestations fluctuate (HCC) Primary osteoarthritis involving multiple joints Roderick Maldonado PA-C [address] [place] [address] Phone: tel: fax: [facility] [address] [place] [address] Phone: tel: fax: Referral ID Status Reason Start Date Expiration Date Visits Requested Visits Authorized [id number] Pending Review Patient Preference 07/23/2024 07/23/2025 8 199 Reason Onset Date Comments [facility] 2024 Referral ID Status Reason Start Date Expiration Date Visits Requested Visits Authorized [id number] Pending Review Patient Preference 07/23/2024 07/23/2025 8 199 Reason Onset Date Comments Medication Refill 09/15/2024 Reason Comments Nail Care Diabetic A1c 8.7 09/07 10/31 Reason Comments Follow-up Hospital Follow up f or possible stroke Reason Comments Annual Exam Reason Comments Parkinson's Disease Camelia her nurse BEAUTY PARLOR CLEANER is with her today. Nurse states more falls and she is in a wheel chair with a seatbelt. She states she does not remember to ask for help. Reason Onset Date Comments Medication Refill 01/07/2025 Care Teams (unrecognized sec tion and content) Site Project Manager Relationship Specialty Start Date End Date Antwan Maharaj MD PCP - General Family Medicine 04/27/19 Site Project Manager Relationship Specialty Start Date End Date Antwan Maharaj MD PCP - General Family Medicine 04/27/19 Site Project Manager Relationship Specialty Start Date End Date Antwan Maharaj MD PCP - General Family Medicine 04/27/19 Site Project Manager Relationship Specialty Start Date End Date Antwan Maharaj MD [address] [place], [place] [id number] PCP - General Family Medicine 04/17/22 Site Project Manager Relationship Specialty Start Date End Date Antwan Maharaj MD [address] [place] [address] PCP - General Family Medicine 04/17/22 Site Project Manager Relationship Specialty Start Date End Date Rafa Jacinto DO [address] [facility] Physician [place] [address] PCP - General Internal Medicine 03/19/23 Site Project Manager Relationship Specialty Start Date End Date Antwan Maharaj MD [address] [place] [address] PCP - General Family Medicine 04/17/22 Site Project Manager Relationship Specialty Start Date End Date Antwan Maharaj MD [address] [place] [address] PCP - General Family Medicine 04/17/22 Site Project Manager Relationship Specialty Start Date End Date Rafa Jacinto DO [address] [facility] [place] [address] PCP - General Internal Medicine 03/19/23 Site Project Manager Relationship Specialty Start Date End Date Rafa Jacinto DO [address] [facility] [place] [address] PCP - General Internal Medicine 03/19/23 Site Project Manager Relationship Specialty Start Date End Date Antwan Maharaj MD [address] [place] [address] PCP - General Family Medicine 04/17/22 Site Project Manager Relationship Specialty Start Date End Date Antwan Maharaj MD [address] [place] [address] PCP - General Family Medicine 04/17/22 Site Project Manager Relationship Specialty Start Date End Date Antwan Maharaj MD [address] [place] [address] PCP - General Family Medicine 04/17/22 Site Project Manager Relationship Specialty Start Date End Date Antwan Maharaj MD [address] [place] [address] PCP - General Family Medicine 04/17/22 Site Project Manager Relationship Specialty Start Date End Date Antwan Maharaj MD [address] [place] [address] PCP - General Family Medicine 04/17/22 Site Project Manager Relationship Specialty Start Date End Date Antwan Maharaj MD [address] [place] [address] PCP - General Family Medicine 04/17/22 Site Project Manager Relationship Specialty Start Date End Date Rafa Jacinto DO [address] [facility] [place] [address] PCP - General Internal Medicine 03/19/23 Site Project Manager Relationship Specialty Start Date End Date Rafa Jacinto DO [address] [facility] [place] [address] PCP - General Internal Medicine 03/19/23 Site Project Manager Relationship Specialty Start Date End Date Antwan Maharaj MD [address] [place] [address] PCP - General Family Medicine 04/17/22 Site Project Manager Relationship Specialty Start Date End Date Rafa Jacinto DO [address] [facility] [place] [address] PCP - General Internal Medicine 03/19/23 Marie Iyer, brass rollerAegis Operations Specialist 12/08/23 Site Project Manager Relationship Specialty Start Date End Date Rafa Jacinto DO [address] [facility] [place] [address] PCP - General Internal Medicine 03/19/23 Marie Iyer, brass rollerAegis Operations Specialist 12/08/23 Site Project Manager Relationship Specialty Start Date End Date Rafa Jacinto DO [address] [place] [address] PCP - General Internal Medicine 03/19/23 Marie Iyer, brass rollerAegis Operations Specialist 12/08/23 Site Project Manager Relationship Specialty Start Date End Date Rafa Jacinto DO [address] [place] [address] PCP - General Internal Medicine 03/19/23 Marie Iyer, brass rollerAegis Operations Specialist 12/08/23 Site Project Manager Relationship Specialty Start Date End Date Mg Evans DO [address] [address] PCP - General Family Medicine 06/23/24 Site Project Manager Relationship Specialty Start Date End Date Rafa Jacinto DO [address] [place] [address] PCP - General Internal Medicine 03/19/23 Site Project Manager Relationship Specialty Start Date End Date Rafa Jacinto DO [address] [facility] [place] [address] PCP - General Internal Medicine 03/19/23 Site Project Manager Relationship Specialty Start Date End Date Mg Evnas DO [address] [place] [address] PCP - General Family Medicine 06/23/24 Site Project Manager Relationship Specialty Start Date End Date Mg Evans DO [address] [place] [address] PCP - General Family Medicine 06/23/24 Site Project Manager Relationship Specialty Start Date End Date Mg Evans DO [address] [place] [address] PCP - General Family Medicine 06/23/24 Site Project Manager Relationship Specialty Start Date End Date Mg Evans DO [address] [place] [address] PCP - General Family Medicine 06/23/24 Site Project Manager Relationship Specialty Start Date End Date Mg Evans DO [address] [place] [address] PCP - General Family Medicine 06/23/24 Site Project Manager Relationship Specialty Start Date End Date Mg Evans DO [address] [place] [address] PCP - General Family Medicine 06/23/24 Site Project Manager Relationship Specialty Start Date End Date Mg Evans DO [address] [address] PCP - General Family Medicine 06/23/24 Site Project Manager Relationship Specialty Start Date End Date Mg Evans DO [address] [address] PCP - General Family Medicine 06/23/24 Site Project Manager Relationship Specialty Start Date End Date Mg Evans DO [facility] [address] [address] PCP - General Family Medicine 06/23/24 Site Project Manager Relationship Specialty Start Date End Date Mg Evans DO [address] [place], [place] [id number] PCP - General Family Medicine 06/23/24 Site Project Manager Relationship Specialty Start Date End Date Mg Evans DO [facility] [address] [address] PCP - General Family Medicine 06/23/24 Site Project Manager Relationship Specialty Start Date End Date Mg Evans DO [facility] [address] [address] PCP - General Family Medicine 06/23/24 Site Project Manager Relationship Specialty Start Date End Date Mg Evans DO [facility] [address] [address] PCP - General Family Medicine 06/23/24 Site Project Manager Relationship Specialty Start Date End Date Mg Evans DO [facility] [address] [address] PCP - General Family Medicine 06/23/24 Site Project Manager Relationship Specialty Start Date End Date Mg Evans DO [address] [place], [place] [id number] PCP - General Family Medicine 06/23/24 Site Project Manager Relationship Specialty Start Date End Date JacintaMg waite DO [address] [place], [place] [address] PCP - General Family Medicine 06/23/24 Site Project Manager Relationship Specialty Start Date End Date Mg Evans DO [address] [place] [address] PCP - General Family Medicine 06/23/24 Site Project Manager Relationship Specialty Start Date End Date Mg Evans DO [address] [place] [address] PCP - General Family Medicine 06/23/24 Site Project Manager Relationship Specialty Start Date End Date Mg Evans DO [address] [place], [place] [address] PCP - General Family Medicine 06/23/24 Site Project Manager Relationship Specialty Start Date End Date Mg Evans DO [address] [place], [place] [address] PCP - General Family Medicine 06/23/24 Site Project Manager Relationship Specialty Start Date End Date Mg Evans DO [address] [place], [place] [id number] PCP - General Family Medicine 06/23/24 Team Status: Active Member Role/Relationship Status Dates No Primary Care Physician Primary Care Provider Active Team Status: Active Member Role/Relationship Status Dates Dr. Gamaliel Coats DO Emergency Provider Active Start : December 18, 2024 Dr. Jayashree Florez DO Admit Provider Active Start: December 18, 2024 Dr. Jayashree Florez DO Attending Provider Active Start: December 18, 2024 No Primary Care Physician Primary Care Provider Active Start: December 18, 2024 Team Status: Active Member Role/Relationship Status Dates Dr. Gamaliel Coats DO Emergency Provider Active Start : December 18, 2024 Dr. Jayashree Florez , DO Admit Provider Active Start: December 18, 2024 Dr. Jayashree Florez DO Attending Provider Active Start: December 18, 2024 Dr. Jayashree Florez DO Other Provider Active Start: December 18, 2024 No Primary Care Physician Primary Care Provider Active Start: December 18, 2024 Gen Yarbrough MD Other Provider Active Start: 2024 Dr. Namrata Del Angel MD Other Provider Active Start: December 18, 2024 Jaquelin Ji MD Other Provider Active Start : December 18, 2024 Dr. Justa Hernandez DO Other Provider Active St art: December 18, 2024 Dr. Rebecca Parrish MD Other Provider Active Start: December 18, 2024 Dr. Thor Felix MD Other Provider Active Sta rt: December 18, 2024 Dr. Heide Apple MD Other Provider Active Start : December 18, 2024 Dr. Bryan Romano MD Other Provider Active Start: December 18, 2024 Dr. Ramón Gifford MD Other Provider Active Start : December 18, 2024 Dr. Jos Robles MD Other Provider Active Sta rt: December 18, 2024 Melvina Rollins MD Other Provider Active Start : December 18, 2024 Dr. Huy Wilkes MD Other Provider Active St art: December 18, 2024 Dr. Radha Puga MD Other Provider Active Start : December 18, 2024 Dr. Marisela Rivero MD Other Provider Active Sta rt: December 18, 2024 Dr. María Curry MD Other Provider Active Start: December 18, 2024 Dr. Oliver Montelongo MD Other Provider Active St art: December 18, 2024 Dr. Abhijit Hand MD Other Provider Active Star t: December 18, 2024 Dr. Marcel Ayoub MD Other Provider Active St art: December 18, 2024 Dr. Ayesha Mckenna MD Other Provider Active Start: December 18, 2024 Dhaval Sutton MD Other Provider Active Start: December 18, 2024 Team Status: Active Member Role/Relationship Status Dates Dr. Gamaliel Coats , DO Emergency Provider Active Start : December 19, 2024 Dr. Jayashree Florez DO Admit Provider Active Start: December 19, 2024 Dr. Jayashree Florez DO Attending Provider Active Start: December 19, 2024 Dr. Jayashree Florez DO Other Provider Active Start: December 19, 2024 No Primary Care Physician Primary Care Provider Active Start: December 19, 2024 Gen Yarbrough MD Other Provider Active Start: 2024 Dr. Namrata Del Angel MD Other Provider Active Start: December 19, 2024 Jaquelin Ji MD Other Provider Active Start : December 19, 2024 Dr. Justa Hernandez DO Other Provider Active St art: December 19, 2024 Dr. Rebecca Parrish MD Other Provider Active Start: December 19, 2024 Dr. Thor Felix MD Other Provider Active Sta rt: December 19, 2024 Dr. Heide Apple MD Other Provider Active Start : December 19, 2024 Dr. Bryan Romano MD Other Provider Active Start: December 19, 2024 Dr. Ramón Gifford MD Other Provider Active Start : December 19, 2024 Dr. Jos Robles MD Other Provider Active Sta rt: December 19, 2024 Melvina Rollins MD Other Provider Active Start : December 19, 2024 Dr. Huy Wilkes MD Other Provider Active St art: December 19, 2024 Dr. Radha Puga MD Other Provider Active Start : December 19, 2024 Dr. Marisela Rivero MD Other Provider Active Sta rt: December 19, 2024 Dr. María Curry MD Other Provider Active Start: December 19, 2024 Dr. Oliver Montelongo MD Other Provider Active St art: December 19, 2024 Dr. Abhijit Hand MD Other Provider Active Star t: December 19, 2024 Dr. Marcel Ayoub MD Other Provider Active St art: December 19, 2024 Dr. Ayesha Mckenna MD Other Provider Active Start: December 19, 2024 Dhaval Sutton MD Other Provider Active Start: December 19, 2024 Team Status: Inactive Member Role/Relationship Status Dates Dr. Gamaliel Coats DO Emergency Provider Active Start : December 19, 2024 End: December 21, 2024 Dr. Jayashree Florez DO Admit Provider Active Start: December 19, 2024 End: December 21, 2024 Dr. Jayashree Florez DO Other Provider Active Start: December 19, 2024 End: December 21, 2024 No Primary Care Physician Primary Care Provider Active Start: December 19, 2024 End: December 21, 2024 Gen Yarbrough MD Other Provider Active Start: 2024 End: December 21, 2024 Dr. Namrata Del Angel MD Other Provider Active Start: December 19, 2024 End: December 21, 2024 Jaquelin Ji MD Other Provider Active Start : December 19, 2024 End: December 21, 2024 Dr. Justa Hernandez DO Other Provider Active St art: December 19, 2024 End: December 21, 2024 Dr. Rebecca Parrish MD Other Provider Active Start: December 19, 2024 End: December 21, 2024 Dr. Thor Felix MD Other Provider Active Sta rt: December 19, 2024 End: December 21, 2024 Dr. Heide Apple MD Other Provider Active Start : December 19, 2024 End: December 21, 2024 Dr. Bryan Romano MD Other Provider Active Start: December 19, 2024 End: December 21, 2024 Dr. Ramón Gifford MD Other Provider Active Start : December 19, 2024 End: December 21, 2024 Dr. Jos Robles MD Other Provider Active Sta rt: December 19, 2024 End: December 21, 2024 Melvina Rollins MD Other Provider Active Start : December 19, 2024 End: December 21, 2024 Dr. Huy Wilkes MD Other Provider Active St art: December 19, 2024 End: December 21, 2024 Dr. Radha Puga MD Other Provider Active Start : December 19, 2024 End: December 21, 2024 Dr. Marisela Rivero MD Other Provider Active Sta rt: December 19, 2024 End: December 21, 2024 Dr. María Curry MD Other Provider Active Start: December 19, 2024 End: December 21, 2024 Dr. Oliver Montelongo MD Other Provider Active St art: December 19, 2024 End: December 21, 2024 Dr. Abhijit Hand MD Other Provider Active Star t: December 19, 2024 End: December 21, 2024 Dr. Marcel Ayoub MD Other Provider Active St art: December 19, 2024 End: December 21, 2024 Dr. Ayesha Mckenna MD Other Provider Active Start: December 19, 2024 End: December 21, 2024 Dhaval Sutton MD Other Provider Active Start: December 19, 2024 End: December 21, 2024 Dr. Antwan Covington MD Attending Provider Active Start: December 19, 2024 End: December 21, 2024 Dr. Ryanne Simons MD Other Provider Active St art: December 19, 2024 End: December 21, 2024 Team Status: Active Member Role/Relationship Status Dates No Primary Care Physician Primary Care Provider Active Start: December 20, 2024 Dr. Slick Breaux MD Attending Provider Active Start: December 20, 2024 Team Status: Active Member Role/Relationship Status Dates Dr. Gamaliel Coats DO Emergency Provider Active Start : December 20, 2024 Dr. Jayashree Florez DO Admit Provider Active Start: December 20, 2024 Dr. Jayashree Florez DO Other Provider Active Start: December 20, 2024 No Primary Care Physician Primary Care Provider Active Start: December 20, 2024 Gen Yarbrough MD Other Provider Active Start: 2024 Dr. Namrata Del Angel MD Other Provider Active Start: December 20, 2024 Jaquelin Ji MD Other Provider Active Start : December 20, 2024 Dr. Justa Hernandez DO Other Provider Active St art: December 20, 2024 Dr. Rebecca Parrish MD Other Provider Active Start: December 20, 2024 Dr. Thor Felix MD Other Provider Active Sta rt: December 20, 2024 Dr. Heide Apple MD Other Provider Active Start : December 20, 2024 Dr. Bryan Romano MD Other Provider Active Start: December 20, 2024 Dr. Ramón Gifford MD Other Provider Active Start : December 20, 2024 Dr. Jos Robles MD Other Provider Active Sta rt: December 20, 2024 Melvina Rollins MD Other Provider Active Start : December 20, 2024 Dr. Huy Wilkes MD Other Provider Active St art: December 20, 2024 Dr. Radha Puga MD Other Provider Active Start : December 20, 2024 Dr. Marisela Rivero MD Other Provider Active Sta rt: December 20, 2024 Dr. María Curry MD Other Provider Active Start: December 20, 2024 Dr. Oliver Montelongo MD Other Provider Active St art: December 20, 2024 Dr. Abhijit Hand MD Other Provider Active Star t: December 20, 2024 Dr. Marcel Ayoub MD Other Provider Active St art: December 20, 2024 Dr. Ayesha Mckenna MD Other Provider Active Start: December 20, 2024 Dhaval Sutton MD Other Provider Active Start: December 20, 2024 Dr. Antwan Covington MD Attending Provider Active Start: December 20, 2024 Dr. Antwan Covington MD Other Provider Active Star t: December 20, 2024 Dr. Ryanne Simons MD Other Provider Active St art: December 20, 2024 Team Status: Active Member Role/Relationship Status Dates Dr. Gamaliel Coats DO Emergency Provider Active Start : December 21, 2024 Dr. Jayashree Florez DO Admit Provider Active Start: December 21, 2024 Dr. Jayashree Florez DO Other Provider Active Start: December 21, 2024 No Primary Care Physician Primary Care Provider Active Start: December 21, 2024 Gen Yarbrough MD Other Provider Active Start: 2024 Dr. Namrata Del Angel MD Other Provider Active Start: December 21, 2024 Jaquelin Ji MD Other Provider Active Start : December 21, 2024 Dr. Justa Hernandez DO Other Provider Active St art: December 21, 2024 Dr. Rebecca Parrish MD Other Provider Active Start: December 21, 2024 Dr. Thor Felix MD Other Provider Active Sta rt: December 21, 2024 Dr. Heide Apple MD Other Provider Active Start : December 21, 2024 Dr. Bryan Romano MD Other Provider Active Start: December 21, 2024 Dr. Ramón Gifford MD Other Provider Active Start : December 21, 2024 Dr. Jos Robles MD Other Provider Active Sta rt: December 21, 2024 Melvina Rollins MD Other Provider Active Start : December 21, 2024 Dr. Huy Wilkes MD Other Provider Active St art: December 21, 2024 Dr. Radha Puga MD Other Provider Active Start : December 21, 2024 Dr. Marisela Rivero MD Other Provider Active Sta rt: December 21, 2024 Dr. María Curry MD Other Provider Active Start: December 21, 2024 Dr. Oliver Montelongo MD Other Provider Active St art: December 21, 2024 Dr. Abhijit Hand MD Other Provider Active Star t: December 21, 2024 Dr. Marcel Ayoub MD Other Provider Active St art: December 21, 2024 Dr. Ayesha Mckenna MD Other Provider Active Start: December 21, 2024 Dhaval Sutton MD Other Provider Active Start: December 21, 2024 Dr. Antwan Covington MD Attending Provider Active Start: December 21, 2024 Dr. Antwan Covington MD Other Provider Active Star t: December 21, 2024 Dr. Ryanne Simons MD Other Provider Active St art: December 21, 2024 Site Project Manager Relationship Specialty Start Date End Date Mg Evans DO [facility] [address] [address] PCP - General Family Medicine 06/23/24 Site Project Manager Relationship Specialty Start Date End Date Mg Evans DO [facility] [address] [address] PCP - General Family Medicine 06/23/24 Site Project Manager Relationship Specialty Start Date End Date Jacinta, Mg R., DO [address] [address] PCP - General Family Medicine 06/23/24 Site Project Manager Relationship Specialty Start Date End Date Mg Evans DO [address] [address] PCP - General Family Medicine 06/23/24 <item><item><item><item><item> [...] dose 1139 (Given - Provid er: Yadira Haile, [place]) ondansetron (Zofran) injection 4 mg (COMPLETED) 4 mg, intravenous, Once, On Antonia 12/04/23 at 1115, For 1 dose, When administering via IV Push, administer over 3-5 minutes. 1139 (Given - Provid er: Yadira Haile, [place]) Scheduled Medication Order 01/27/2024 01/28/2024 01/29/2024 ibuprofen tablet 400 mg (COMPLETED) 400 mg, oral, Once, On Antonia 01/29/24 at 0745, For 1 dose, May administer with food to reduce GI upset., If ordered PRN for pain, nurse is permitted to administer this medication for higher pain scores based on patient preference? Yes 0755 (Given - Provid er: Ann Hill RN) [...] (Given - Provid er: Saida Fairbanks RN) Goals (unrecognized section and content) Goals may be documented in a n alternate section FOR RECORDS PERTAINING TO PATIENTS WHO ARE [...] BE BASED ON THE PRIMARY CLINICAL RECORDS. [employer] provides no warranty or guarantee of the accuracy or completeness of information in this document.
--- NOTE | 2025-01-15 15:15 | EX.ED.DYSGE1 ---
HPI History of Present Illness Chief Complaint: Hypertension Narrative Narrative: Patient is a 64-year-old female presenting to the emergency department for hypertension and AMS at her facility that is resolved now per caregiver. Patient is at her nursing facility. Nursing staff noticed that over the past few days she has been acting different. She does have a past medical history of dementia. They state that since being admitted in December she has not been the same. They state that while concern to them today was an episode of high blood pressure and tongue movements that were abnormal. Patient has not complained of anything. [facility] Medical History Parkinsons Hypertension Diabetes Schizophrenia Home Medications ?Medication ?Instructions ?Recorded ?Last Taken ?Type docusate sodium 100 mg capsule 100 mg PO BID Constipation 01/13/17 Unknown History (DOK) sennosides 8.6 mg-docusate sodium 1 tab PO DAILY 01/13/17 Unknown History 50 mg tablet (Senna Plus) Benacalorie 1 packet PO TID PRN intake less 12/18/24 Unknown History than 50% acetaminophen 500 mg tablet 1,000 mg PO TID PRN fever or pain 12/18/24 Unknown History amlodipine 2.5 mg tablet 2.5 mg PO DAILY 12/18/24 Unknown History benztropine 1 mg tablet 1 mg PO DAILY 12/18/24 Unknown History benztropine 1 mg tablet 1 mg PO QHS 12/18/24 Unknown History carbidopa 25 mg-levodopa 100 mg 2 tab PO TID 12/18/24 Unknown History tablet diclofenac sodium 1 % topical gel 4 g topical 4X/DAY karishma knees and 12/18/24 Unknown History right hip empagliflozin 25 mg tablet 25 mg PO DAILY 12/18/24 Unknown History (Jardiance) estradiol 0.01% (0.1 mg/gram) 0.5 appful vaginal MOWEFR 12/18/24 Unknown History vaginal cream estradiol 0.01% (0.1 mg/gram) 0.5 appful vaginal DAILY 12/18/24 Unknown History vaginal cream (Estrace) fluoride (sodium) 1.1 % dental 1 applic dental DAILY 12/18/24 Unknown History cream (Denta 5000 Plus) levothyroxine 75 mcg tablet 75 mcg PO DAILY 12/18/24 Unknown History melatonin 3 mg tablet 3 mg PO QHS 12/18/24 Unknown History metformin 500 mg tablet,extended 1,000 mg PO BID 12/18/24 Unknown History release 24 hr mirtazapine 30 mg disintegrating 30 mg PO QHS 12/18/24 Unknown History tablet multivitamin with minerals-ferrous 1 tab PO DAILY 12/18/24 Unknown History fumarate 15 mg iron tablet nut.tx.glucose intolerance,soy 1 ea PO 4X/DAY 12/18/24 Unknown History (Glucerna oral bar) omeprazole 40 mg capsule,delayed 40 mg PO DAILY 12/18/24 Unknown History release pimavanserin 34 mg capsule 34 mg PO DAILY 12/18/24 Unknown History (Nuplazid) polyethylene glycol 3350 17 17 g PO DAILY 12/18/24 Unknown History gram/dose oral powder potassium chloride 10 mEq 10 meq PO DAILY 12/18/24 Unknown History tablet,extended release(part/cryst) repaglinide 0.5 mg tablet 0.5 mg PO BID 12/18/24 Unknown History aspirin 81 mg chewable tablet 81 mg PO BREAKFAST #30 tabs 12/21/24 Unknown Rx atorvastatin 40 mg tablet (Lipitor) 40 mg PO QHS #30 tabs 12/21/24 Unknown Rx insulin glargine-yfgn 100 unit/mL 5 unit (0.05 mL) subcut BID #15 mL 12/21/24 Unknown Rx (3 mL) subcutaneous pen pen needle, diabetic 31 gauge x #100 ea 12/21/24 Unknown Rx 5/32 potassium, sodium phosphates 280 1 packet PO BID #60 ea 12/21/24 Unknown Rx mg-160 mg-250 mg oral powder packet cephalexin 500 mg capsule 500 mg PO BID 7 days #14 caps 01/15/25 Unknown Rx Allergy/AdvReac Type Severity Reaction Status Date / Time Iodinated Contrast Media Allergy UNKNOWN Verified 01/15/25 14:26 (contrast dye - iodinated) Social History Smoking Status: Never smoker ROS ROS ED Review of Systems ROS Unobtainable: due to mental condition EXAM Physical Exam Narrative Exam Narrative: Vital signs: Reviewed General: Alert to self. No acute distress HEENT: Head is normocephalic and atraumatic, sinuses nontender, pupils equal round and reactive. Nares are patent. Oropharynx and throat exams normal. Neck: Supple without lymphadenopathy nontender Cardiovascular: Regular rate and rhythm, no murmurs. No rubs or gallops. Normal S1 and S2 Respiratory: Clear to auscultation bilaterally. No wheezes, rales, rhonchi Abdominal: Soft and nontender. Normal bowel sounds. No guarding or rebound. Nonsurgical abdomen Extremities: No tenderness. No bruising. Normal range of motion. Normal sensation. Skin: No rash or redness. Neurological: Moves all extremities, follows commands intermittently The rest of the physical exam is unremarkable Const Vital Signs: 01/15/25 14:26 01/15/25 14:29 Temperature 98.4 F Temperature Source Axillary Pulse Rate 94 Respiratory Rate 25 H Respiratory Effort Normal Respiratory Pattern Normal Blood Pressure 161/92 H Blood Pressure Mean 115 Pulse Ox 95 Oxygen Delivery Method Room Air MDM MDM MDM Narrative Medical decision making narrative: Patient is a 64-year-old female presenting to the emergency department for an episode of hypertension and altered mental status at her facility. Patient was seen and examined. Vitals are stable. Patient resting comfortably no acute distress. Given patient is a very poor historian and is alert only to self, large workup was started. Differential includes but is not limited to: Intracranial bleed, pneumonia, UTI, electrolyte imbalance. CBC with no leukocytosis and hemoglobin of 15.2. Anion gap of 18, BUN of 35. Fluid bolus given. Labs appear to show dehydration. Urinalysis with nitrites , leukoesterase, bacteria and WBCs consistent with a UTI. Patient started on abx here while awaiting imaging. CT brain shows no acute intracranial abnormalities. Chest x-ray shows no acute findings. CT abdomen pelvis shows*colitis without perforation or abscess. Caregiver at bedside and patient updated on the findings. Given keflex for home for abx coverage. Patient has close care by caregivers. I suspect that she was mildly dehydrated and UTI which caused her symptoms that the caregivers were seeing. They state that she is now acting at her baseline. Patient discharged from the Emergency Department. I do not feel that the patient's evaluation reveals any acute reason for admission at this time. I instructed them to either follow-up with their primary care physician or promptly return to the Emergency Department for reevaluation should symptoms worsen or new symptoms develop. I explained what symptoms would indicate the need to return to the emergency department. Shared decision making was used. The patient voiced understanding of the treatment plan and is agreeable with it. Lab Data Attestation: I reviewed the patient's lab results. Radiography Chest X-Ray - ED: 2 View, Read by ED Physician, Normal, No Acute Disease and No Infiltrates Diagnostic Testing: Clinical Impression(s) from Imaging Studies Brain CT 01/15/25 15:40 IMPRESSION: No acute intracranial abnormalities. Reading Location: [facility] Chest X-Ray 01/15/25 15:55 IMPRESSION: NO ACUTE FINDINGS. Reading Location: [facility] Abdomen/Pelvis CT 01/15/25 17:46 IMPRESSION: Stercoral colitis without perforation or abscess. Reading Location: [facility] Discharge Plan Triage Chief Complaint: Hypertension ED Provider: Yudelka Leon Dx/Rx/DC Orders Clinical Impression: UTI (urinary tract infection) Instructions: ED UTIs Women Prescriptions: New cephalexin 500 mg capsule 500 mg PO BID 7 Days Qty: 14 0RF No Action sennosides-docusate sodium [Senna Plus] 1 EACH tablet 1 tab PO DAILY docusate sodium [DOK] 100 MG capsule 100 mg PO BID acetaminophen 500 mg tablet 1,000 mg PO TID PRN (Reason: fever or pain) Benacalorie 1 packet PO TID PRN (Reason: intake less than 50%) benztropine 1 mg tablet 1 mg PO QHS fluoride (sodium) [Denta 5000 Plus] 1.1 % cream 1 applic dental DAILY diclofenac sodium 1 % gel 4 g topical 4X/DAY estradiol 0.01 % (0.1 mg/gram) cream 0.5 appful vaginal MOWEFR Glucerna Bar 1 ea PO 4X/DAY amlodipine 2.5 mg tablet 2.5 mg PO DAILY benztropine 1 mg tablet 1 mg PO DAILY carbidopa-levodopa 25-100 mg tablet 2 tab PO TID estradiol [Estrace] 0.01 % (0.1 mg/gram) cream 0.5 appful vaginal DAILY Rx Instructions: for 14 days mirtazapine 30 mg tablet,disintegrating 30 mg PO QHS melatonin 3 mg tablet 3 mg PO QHS omeprazole 40 mg capsule,delayed release(DR/EC) 40 mg PO DAILY levothyroxine 75 mcg tablet 75 mcg PO DAILY polyethylene glycol 3350 17 gram/dose powder 17 g PO DAILY metformin 500 mg tablet extended release 24 hr 1,000 mg PO BID Jardiance 25 mg tablet 25 mg PO DAILY Nuplazid 34 mg capsule 34 mg PO DAILY duanyunj-vkw-qtrcdrm fumarate 15 mg iron tablet 1 tab PO DAILY repaglinide 0.5 mg tablet 0.5 mg PO BID potassium chloride 10 mEq tablet,ER particles/crystals 10 meq PO DAILY aspirin 81 mg Tablet,Chewable 81 mg PO BREAKFAST Qty: 30 0RF atorvastatin [Lipitor] 40 mg tablet 40 mg PO QHS Qty: 30 0RF insulin glargine-yfgn 100 unit/mL (3 mL) Insulin Pen 5 unit subcut BID Qty: 15 0RF potassium, sodium phosphates 280-160-250 mg Powder In Packet 1 packet PO BID Qty: 60 0RF (DME) pen needle, diabetic 31 gauge x 5/32 needle See Rx Instructions .ROUTE .MEDSUPPLY Qty: 100 0RF Rx Instructions: As directed Primary Care Provider: Mg Workman Referrals: Mg Workman DO [Primary Care Provider] - 2 Days Activity Restrictions/Additional Instructions: Your evaluation in the Emergency Department did not reveal any acute reason for admission. However, I want to emphasize that you may be early in the course of a disease process or illness even if it is not present. For this reason you should follow-up within 24 hours for reevaluation with either your primary care physician or if necessary back here in the Emergency Department. You should return to the Emergency Department immediately if your symptoms worsen or new symptoms develop. Please take the antibiotic as prescribed. Print Language: Indonesian Disposition Disposition: Home, Self Care Discharge Date/Time: 01/15/25 19:58
--- NOTE | 2025-01-15 15:40 | EKG12_ITS ---
Test Reason : HTN Blood Pressure : */* mmHG Vent. Rate : 91 BPM Atrial Rate : 91 BPM P-R Int : 176 ms QRS Dur : 74 ms QT Int : 380 ms P-R-T Axes : 59 15 98 degrees QTcB Int : 467 ms Normal sinus rhythm ST & T wave abnormality, consider lateral ischemia Abnormal ECG Confirmed by SAMI ARAUZ, LANDON ([id number]), telegraph editor AMY GARCIA ([id number]) on 01/17/2025 1:12:18 PM Referred By: Confirmed By: LANDON GALLARDO MD
--- NOTE | 2025-01-15 15:40 | CT_ITS ---
PROCEDURE: BRAIN/HEAD WITHOUT CONTRAST 01/15/2025 REASON FOR EXAM: AMS TECHNIQUE: BRAIN/HEAD WITHOUT CONTRAST Coronal and Sagittal reconstruction series were provided. One or more dose reduction techniques were used (e.g., Automated exposure control, adjustment of the mA and/or kV according to patient size, use of iterative reconstruction technique. RADIATION DOSE SUMMARY: CTDlvol: 44.99 mGy DLP: 812.98 mGycm COMPARISON: CT head 12/18/2024. FINDINGS: Brain: Extensive low density in the deep cerebral white matter most likely represents advanced chronic small vessel ischemic disease. No acute intracranial hemorrhage. No acute territorial infarction. No mass effect or midline shift. CSF Spaces: Advanced generalized cerebral atrophy Sinuses/Mastoids: Clear. Bones: No acute bony abnormalities. CT/Brain/Head without Contrast IMPRESSION: No acute intracranial abnormalities. Reading Location: [id number]
[2025-01-15 15:53] LABS: Hematocrit 48.0 % (37-47); Hemoglobin 15.2 g/dL (12.0-15.0); Immature Granulocytes Count 0.020 X10^3/uL (0.0-0.0); Mean Corp Hgb Conc 31.7 g/dL (32-36); Mean Corpuscular Volume 94.3 fL (81-99); Mean Platelet Vol. 10.1 fl (6.2-12.0); NRBC Flagged by Analyzer 0 % (0-5); Platelet Count 334 K/mm3 (150-450); RBC Distribution Width CV 12.7 % (11.6-14.6); RBC Distribution Width SD 44.4 fl (35.1-43.9); Red Blood Count 5.09 M/mm3 (4.2-5.4); White Blood Count 9.9 K/mm3 (4.4-11.0)
--- NOTE | 2025-01-15 15:55 | RAD_ITS ---
PROCEDURE: CHEST PA AND LATERAL 01/15/2025 REASON FOR EXAM: AMS TECHNIQUE: CHEST PA AND LATERAL COMPARISON: Chest radiograph 12/18/2024. FINDINGS: Hardware: None. Heart: The heart size is normal. Mediastinum: The mediastinal contour is unremarkable. Lungs: Low lung volumes. No focal consolidation, pleural effusion or pneumothorax. Bones: Degenerative changes are identified within the thoracic spine. RAD/Chest PA and Lateral IMPRESSION: NO ACUTE FINDINGS. Reading Location: [id number]
[2025-01-15 16:18] LABS: Anion Gap 18 (5-15); BUN 35 mg/dL (4-19); BUN/Creat Ratio 37.6 RATIO (10-20); Calcium,Total 10.1 mg/dL (7.6-11.0); Carbon Dioxide 21.6 mmol/L (21.0-32.0); Chloride 104 mmol/L (98-108); Estimated Creatinine Clearance 56.58 ml/min (50-250); Glucose 104 mg/dL (70-99); Potassium 4.1 mmol/L (3.3-5.1)
[2025-01-15 16:54] VITALS: BP 168/71; PULSE 92; RESP 16; O2SAT 100
[2025-01-15 16:54] LABS: Mucous, Urine 0 SEEN /hpf (<or=2+)
[2025-01-15 16:55] LABS: Color, Urine Yellow (Yellow); Glucose, Dipstick 1000 mg/dl (Normal); Leukocyte Esterase-Dipstick 25 /ul (Negative); Nitrite-Dipstick Positive (Negative); Occult Blood-Urine 10 /ul (Negative); Protein-Dipstick 30 mg/dl (Negative); Specific Gravity, Urine 1.020 (1.002-1.030); Urine Bilirubin Dipstick Negative (Negative)
[2025-01-15 16:56] LABS: Ketone-Dipstick 150 mg/dl (Negative)
[2025-01-15 17:00] LABS: Red Blood Cells-Urine 0-5 SEEN /hpf (0-5); Squamous Epithelial Cells - UA 0-5 SEEN /hpf (5-10)
--- NOTE | 2025-01-15 17:46 | CT_ITS ---
PROCEDURE: ABDOMEN/PELVIS WITHOUT CONT 01/15/2025 REASON FOR EXAM: RULE OUT STONE, PYELO, HYDRO TECHNIQUE: ABDOMEN/PELVIS WITHOUT CONT Noncontrast technique limits evaluation of the abdominal and pelvic viscera. Coronal and Sagittal reconstruction series were provided. One or more dose reduction techniques were used (e.g., Automated exposure control, adjustment of the mA and/or kV according to patient size, use of iterative reconstruction technique). RADIATION DOSE SUMMARY: DLP: 600 mGycm COMPARISON: None. FINDINGS: Lung bases: Unremarkable. Liver: The unopacified liver is normal in size. No biliary ductal dilation. Gallbladder: Radiopaque stones within the gallbladder. Spleen: Unremarkable. Pancreas: The unopacified pancreas is unremarkable. Adrenals: No obvious adrenal mass. Kidneys: No hydronephrosis or nephrolithiasis. Bladder: Mildly distended and unremarkable. Reproductive Organs: Surgically absent. Bowel: The bowel loops are nondilated. Marked distention of the distal colon with retained fecal material. Associated mild wall thickening and perirectal edema. No ascites or free air. Lymph nodes: Visualization is limited without the use of IV contrast. No large lymphadenopathy. Vasculature: Moderate calcific plaque of the aortoiliac vessels. Bones: Mild thoracolumbar spondylosis. CT/Abdomen/Pelvis without Cont IMPRESSION: Stercoral colitis without perforation or abscess. Reading Location: [id number]
[2025-01-15] MEDS: 0.9% Normal Saline (1000mL) 1,000 ML 1000 ML IV (17:56)
[2025-01-15 18:04] VITALS: PULSE 88; RESP 16; O2SAT 94
[2025-01-15 19:43] VITALS: BP 116/73; PULSE 90; RESP 16; TEMP 36.3; O2SAT 95
== END 2025-01-15 19:58 | disposition home or self-care (01) ==
PROVIDERS: Emergency Provider Student in an Organized Health Care Education/Training Program; PCP Family Medicine; Visit Provider Student in an Organized Health Care Education/Training Program
DX: I10 Essential (primary) hypertension (principal); G20.C Parkinsonism, unspecified; F20.9 Schizophrenia, unspecified; E11.9 Type 2 diabetes mellitus without complications
CPT/HCPCS: 70450; 71046; 74176; 80048; 81001; 85025; 93005; 96365; 99284